=== PATIENT | male | born 1955 | race Caucasian/White ===

== ENCOUNTER 2023-09-23 11:53 | Outpatient (AMB) | payer MEDICARE, SELFPAY ==
--- NOTE | 2023-09-23 11:54 | HO.NEPHOV ---
HPI HPI Comments History of Present Illness Details I would the privilege of seeing Ryan in follow-up of his chronic kidney disease. He had acute kidney injury on 2 separate occasions needing hemodialysis on both those times. He had recovered renal function had had come off renal replacement. He came to the office today for continued follow-up. He was accompanied by his sister. He is known to have biopsy-proven diabetic nephropathy. He is gained quite a bit of weight. His blood sugar control still remains labile. He follows up with an risk control officer. His blood pressure has been at goal. He denies chest pain, shortness of breath, paroxysmal nocturnal dyspnea, orthopnea, pedal edema, urinary symptoms or orthostasis. He denied taking nonsteroidal anti-inflammatories. He denied any new active complaints at the time this office visit. REPLACED BY [facility] Medical History (Updated 09/25/23 @ 13:33 by Chris Martínez MD) Proteinuria Type 2 diabetes mellitus with diabetic nephropathy Hypertension Acute kidney injury Vital Signs 09/23/23 11:55 Height 5 ft 11 in Weight 218 lb BMI 30.4 BP 120/62 Blood Pressure Location Rt brachial Position Sitting Pulse 111 H Pulse Source Pulse Oximeter Pulse Oximetry (%) 94 Oxygen Delivery Method Room Air Physical Exam Vital Signs: Last Vital Signs Pulse 111 H 09/23/23 11:55 BP 120/62 09/23/23 11:55 Pulse Ox 94 09/23/23 11:55 Oxygen Delivery Method Room Air 09/23/23 11:55 BMI result Body Mass Index 30.4 Const General: comfortable and no acute distress Orientation/consciousness: patient oriented x3 HEENT Head: Yes normocephalic Mouth: Normal oral and palatal mucosa present Eyes EOM: EOMs intact bilaterally Neck Neck: Yes supple Resp Auscultation: clear to auscultation bilaterally Cardio Jugular venous distension: no JVD Rate: regular rate GI Palpation (GI): Soft to palpation Auscultation: normal bowel sounds General: Yes no CVA tenderness Back/Spine/Pelvis Back: no CVA tenderness Skin General skin exam: no rashes or lesions noted Neuro General: patient oriented x3 and moves all extremities Extrem General: Yes no pedal edema Assessment & Plan Assessment & Plan (1) Chronic kidney disease, stage 4 (severe): Code(s): N18.4 - Chronic kidney disease, stage 4 (severe) (2) Diabetic nephropathy: Code(s): E11.21 - Type 2 diabetes mellitus with diabetic nephropathy Qualifiers: Diabetes mellitus type: type 2 Qualified Code(s): E11.21 - Type 2 diabetes mellitus with diabetic nephropathy (3) Hypertension: Code(s): I10 - Essential (primary) hypertension Qualifiers: Hypertension type: primary hypertension Qualified Code(s): I10 - Essential (primary) hypertension Isabel Davis has some diabetic nephropathy and had been having progressive disease. He developed tubular injury with BENJAMIN needing renal replacement therapy on 2 separate occasions, last 1 being last year. On both occasions he recovered renal functions and has come off hemodialysis. He had a renal biopsy in the past which showed diabetic nephropathy. He denies any uremic symptoms. His blood sugar control is still labile. His blood pressure has been at goal. He is on potassium lowering medications. He avoids nonsteroidal anti-inflammatories. He has not tolerated SOCRATES inhibitor even when his GFR was better. I did not make any medication changes today. I ordered follow-up blood work. More than 50% time spent discussing about stage of his chronic kidney disease and further management strategies. Answered all questions. Follow-up appointment given. Orders: Orders Electrolytes 09/23/23 N18.30 - Chronic kidney disease, stage 3 unspecified Creatinine 09/23/23 N18.30 - Chronic kidney disease, stage 3 unspecified Magnesium 09/23/23 N18.30 - Chronic kidney disease, stage 3 unspecified Vitamin D 25-OH Total 09/23/23 N18.30 - Chronic kidney disease, stage 3 unspecified Ferritin 09/23/23 N18.30 - Chronic kidney disease, stage 3 unspecified IRON PROFILE 09/23/23 N18.30 - Chronic kidney disease, stage 3 unspecified Calcium 09/23/23 N18.30 - Chronic kidney disease, stage 3 unspecified Blood Urea Nitrogen 09/23/23 N18.30 - Chronic kidney disease, stage 3 unspecified Phosphorus 09/23/23 N18.30 - Chronic kidney disease, stage 3 unspecified Parathyroid Hormone Intact 09/23/23 N18.30 - Chronic kidney disease, stage 3 unspecified Complete Blood Count Auto Diff 09/23/23 N18.30 - Chronic kidney disease, stage 3 unspecified Coding Level of Care Code Est Pt Level 4 (11939) Diagnoses Chronic kidney disease, stage 4 (severe) N18.4 Diabetic nephropathy associated with type 2 diabetes mellitus E11.21 Diabetes mellitus type: type 2 Primary hypertension I10 Hypertension type: primary hypertension Results Reviewed Nephrology Results: No Data to Display
[2023-09-23 11:55] VITALS: BP 120/62; PULSE 111; O2SAT 94; BMI 30.4
== END 2023-09-23 12:38 | disposition home or self-care (01) ==
PROVIDERS: PCP Family Medicine; Visit Provider Internal Medicine Nephrology
DX: I12.9 Hypertensive chronic kidney disease with stage 1 through stage 4 chronic kidney disease, or unspecified chronic kidney disease (principal); E11.22 Type 2 diabetes mellitus with diabetic chronic kidney disease; N18.4 Chronic kidney disease, stage 4 (severe)
CPT/HCPCS: 99214

== ENCOUNTER → 2023-09-23 11:53 | Outpatient (BNVA) | payer MEDICARE, SELFPAY | PROVIDERS: PCP Family Medicine; Visit Provider Internal Medicine Nephrology | DX: E11.22 Type 2 diabetes mellitus with diabetic chronic kidney disease (principal); I12.9 Hypertensive chronic kidney disease with stage 1 through stage 4 chronic kidney disease, or unspecified chronic kidney disease; N18.4 Chronic kidney disease, stage 4 (severe); E11.21 Type 2 diabetes mellitus with diabetic nephropathy | CPT/HCPCS: 99212 ==

== ENCOUNTER 2023-10-22 14:45 | Outpatient (AMB) | payer MEDICARE, SELFPAY ==
--- NOTE | 2023-10-22 14:53 | HO.NEPHOV ---
HPI HPI Comments History of Present Illness Details I would the privilege of seeing Ryan in follow-up of his chronic kidney disease. He had acute kidney injury on 2 separate occasions needing hemodialysis on both those times. He had recovered renal function had had come off renal replacement. He came to the office today for continued follow-up. He was seen by his Urologist and was diagnosed with UTI and was started on Ciprofloxacin. He had been taking Lokelma, the last dose being last week. He is known to have biopsy-proven diabetic nephropathy. He is gained quite a bit of weight. His blood sugar control is better. He follows up with an metal hanger. His blood pressure has been at goal. He denies chest pain, shortness of breath, paroxysmal nocturnal dyspnea, orthopnea, pedal edema, urinary symptoms or orthostasis. He denied taking nonsteroidal anti-inflammatories. He denied any new active complaints at the time this office visit. [facility] Medical History (Updated 09/25/23 @ 13:33 by Chris Martínez MD) Proteinuria Type 2 diabetes mellitus with diabetic nephropathy Hypertension Acute kidney injury Vital Signs 10/22/23 14:54 Height 5 ft 11 in Weight 219 lb BMI 30.5 BP 130/82 Blood Pressure Location Rt brachial Position Sitting Pulse 104 H Pulse Source Pulse Oximeter Pulse Oximetry (%) 95 Oxygen Delivery Method Room Air Physical Exam Vital Signs: Last Vital Signs Pulse 104 H 10/22/23 14:54 BP 130/82 10/22/23 14:54 Pulse Ox 95 10/22/23 14:54 Oxygen Delivery Method Room Air 10/22/23 14:54 BMI result Body Mass Index 30.5 Const General: comfortable and no acute distress Orientation/consciousness: patient oriented x3 HEENT Head: Yes normocephalic Mouth: Normal oral and palatal mucosa present Eyes EOM: EOMs intact bilaterally Neck Neck: Yes supple Resp Auscultation: clear to auscultation bilaterally Cardio Jugular venous distension: no JVD Rate: regular rate GI Palpation (GI): Soft to palpation Auscultation: normal bowel sounds General: Yes no CVA tenderness Back/Spine/Pelvis Back: no CVA tenderness Skin General skin exam: no rashes or lesions noted Neuro General: patient oriented x3 and moves all extremities Extrem General: Yes no pedal edema Assessment & Plan Assessment & Plan (1) Chronic kidney disease, stage 4 (severe): Code(s): N18.4 - Chronic kidney disease, stage 4 (severe) (2) Diabetic nephropathy: Code(s): E11.21 - Type 2 diabetes mellitus with diabetic nephropathy Qualifiers: Diabetes mellitus type: type 2 Qualified Code(s): E11.21 - Type 2 diabetes mellitus with diabetic nephropathy (3) Hypertension: Code(s): I10 - Essential (primary) hypertension Qualifiers: Hypertension type: primary hypertension Qualified Code(s): I10 - Essential (primary) hypertension Isabel Davis has some diabetic nephropathy and had been having progressive disease. He developed tubular injury with BENJAMIN needing renal replacement therapy on 2 separate occasions, last 1 being last year. On both occasions he recovered renal functions and has come off hemodialysis. He had a renal biopsy in the past which showed diabetic nephropathy. He denies any uremic symptoms. His blood sugar control is better. His blood pressure has been at goal. He is on potassium lowering medications. I refilled his Kionex today. He avoids nonsteroidal anti-inflammatories. He has not tolerated SOCRATES inhibitor even when his GFR was better. I did not make any medication changes today. I ordered follow-up blood work for today. More than 50% time spent discussing about stage of his chronic kidney disease and further management strategies. Answered all questions. Follow-up appointment given. Orders: Orders Creatinine 2 Months E11.21 - Type 2 diabetes mellitus with diabetic nephropathy, I10 - Essential (primary) hypertension, N18.4 - Chronic kidney disease, stage 4 (severe) Blood Urea Nitrogen 2 Months E11.21 - Type 2 diabetes mellitus with diabetic nephropathy, I10 - Essential (primary) hypertension, N18.4 - Chronic kidney disease, stage 4 (severe) Electrolytes 2 Months E11.21 - Type 2 diabetes mellitus with diabetic nephropathy, I10 - Essential (primary) hypertension, N18.4 - Chronic kidney disease, stage 4 (severe) Medications: New sodium polystyrene sulfonate 30 grams PO DAILY 453.6 grams 3RF Coding Level of Care Code Est Pt Level 3 (33310) Diagnoses Chronic kidney disease, stage 4 (severe) N18.4 Diabetic nephropathy associated with type 2 diabetes mellitus E11. Diabetes mellitus type: type 2 Primary hypertension I10 Hypertension type: primary hypertension Results Reviewed Nephrology Results: No Data to Display
[2023-10-22 14:54] VITALS: BP 130/82; PULSE 104; O2SAT 95; BMI 30.5
== END 2023-10-22 15:45 | disposition home or self-care (01) ==
LOC: HO.HKAS 14:45
PROVIDERS: PCP Family Medicine; Visit Provider Internal Medicine Nephrology
DX: I12.9 Hypertensive chronic kidney disease with stage 1 through stage 4 chronic kidney disease, or unspecified chronic kidney disease (principal); N18.4 Chronic kidney disease, stage 4 (severe); E11.21 Type 2 diabetes mellitus with diabetic nephropathy
CPT/HCPCS: 99213

== ENCOUNTER → 2023-10-22 14:45 | Outpatient (BNVA) | payer MEDICARE, SELFPAY | PROVIDERS: PCP Family Medicine; Visit Provider Internal Medicine Nephrology ==

== ENCOUNTER 2023-10-22 15:26 | Outpatient (REF) | payer MEDICARE, SELFPAY ==
[2023-10-22 17:17] LABS: MANUAL DIFF FLAG NO
[2023-10-22 17:26] LABS: Basophils Absolute Auto 0.1 X10*3/uL (0.0-0.2); Basophils Percent Auto 0.6 % (0-2); Eosinophils Absolute Auto 0.2 X10*3/uL (0.0-0.4); Eosinophils Percent Auto 2.8 % (0-4); Hematocrit 35.9 % (42.0-52.0); Hemoglobin 11.7 g/dl (14.0-18.0); Imm Gran Abs Auto 0.09 X10*3/uL (0.00-0.03); Imm Gran Pct Auto 1.1 % (0.0-0.4); Lymphocytes Absolute Auto 1.4 X10*3/uL (1.2-4.9); Lymphocytes Percent Auto 16.9 % (20-40); Mean Corpuscular HGB Conc 32.6 g/dl (31.0-36.0); Mean Corpuscular Volume 95.2 fL (80.0-98.0); Mean Platelet Volume 10.6 fL (9.4-12.4); Monocytes Absolute Auto 0.7 X10*3/uL (0.1-1.2); Monocytes Percent Auto 8.1 % (2-11); Neutrophils Absolute Auto 5.8 x10*3/uL (2.0-8.3); Neutrophils Percent Auto 70.5 % (45-73); Platelet Count 227 X10*3/uL (160-400); Red Blood Count 3.77 X10*6/uL (4.60-5.80); Red Cell Distribution Width 13.1 % (11.0-16.0); White Blood Count 8.3 X10*3/uL (4.8-10.8)
[2023-10-22 18:16] LABS: Anion Gap 15 (12-20); Blood Urea Nitrogen 44 mg/dL (9-16); Calcium 8.5 mg/dL (8.4-10.2); Carbon Dioxide 19 mmol/L (22-29); Chloride 110 mmol/L (96-108); Estimated Glomerular Filt Rate 17; Iron 87 mcg/dL (45-160); Percent Iron Saturation 31 % (15-50); Phosphorus 3.9 mg/dL (2.7-4.5); Potassium 4.6 mmol/L (3.3-5.1); Sodium 139 mmol/L (135-145); Total Iron Binding Capacity 277 mcg/dL (228-428); Unsaturated Iron Binding 190 ug/dL
[2023-10-22 18:21] LABS: Ferritin 151 ng/mL (20-250); Vitamin D 25-OH Total 13.7 ng/mL (>30)
[2023-10-22 18:23] LABS: Magnesium 1.1 mg/dL (1.6-2.6)
[2023-10-22 18:47] LABS: Parathyroid Hormone Intact 478.8 pg/mL (8.7-77.1)
== END 2023-10-22 15:27 | disposition home or self-care (01) ==
LOC: HO.HKASLDS 15:26
PROVIDERS: Visit Provider Internal Medicine Nephrology
DX: E11.22 Type 2 diabetes mellitus with diabetic chronic kidney disease (principal); I12.9 Hypertensive chronic kidney disease with stage 1 through stage 4 chronic kidney disease, or unspecified chronic kidney disease; N18.4 Chronic kidney disease, stage 4 (severe); E11.21 Type 2 diabetes mellitus with diabetic nephropathy; Z79.899 Other long term (current) drug therapy
CPT/HCPCS: 36415; 80051; 82306; 82310; 82565; 82728; 83540; 83735; 83970; 84100; 84520; 85025; 99212

== ENCOUNTER 2023-12-29 12:39 | Outpatient (REF) | payer MEDICARE, SELFPAY ==
[2023-12-29 18:33] LABS: Anion Gap 12 (12-20); Blood Urea Nitrogen 37 mg/dL (9-16); Carbon Dioxide 20 mmol/L (22-29); Chloride 110 mmol/L (96-108); Estimated Glomerular Filt Rate 19; Potassium 5.7 mmol/L (3.3-5.1); Sodium 136 mmol/L (135-145)
== END 2023-12-29 12:40 | disposition home or self-care (01) ==
LOC: HO.HKASLDS 12:39
PROVIDERS: Visit Provider Internal Medicine Nephrology
DX: I12.9 Hypertensive chronic kidney disease with stage 1 through stage 4 chronic kidney disease, or unspecified chronic kidney disease (principal); E11.22 Type 2 diabetes mellitus with diabetic chronic kidney disease; E11.21 Type 2 diabetes mellitus with diabetic nephropathy; N18.4 Chronic kidney disease, stage 4 (severe)
CPT/HCPCS: 36415; 80051; 82565; 84520; 99212

== ENCOUNTER 2023-12-29 15:40 | Outpatient (AMB) | payer MEDICARE, SELFPAY ==
[2023-12-29 16:16] VITALS: BP 150/80; PULSE 90; O2SAT 96; BMI 30.2
--- NOTE | 2023-12-29 16:16 | HO.NEPHOV ---
Vital Signs 12/29/23 16:16 Height 5 ft 11 in Weight 216 lb 6 oz BMI 30.2 BP 150/80 H Blood Pressure Location Lt brachial Position Sitting Pulse 90 Pulse Source Pulse Oximeter Pulse Oximetry (%) 96 Oxygen Delivery Method Room Air Intake Visit Reasons: 2 mo fu w/ labs -CKD Proposal Lead Writer Required: No Accompanied by: Self / Same As Patient Allergies liraglutide Allergy (Verified 12/29/23 16:18) Unknown HPI Comments Details: I hadd the privilege of seeing Ryan in follow-up of his chronic kidney disease. He had acute kidney injury on 2 separate occasions needing hemodialysis on both those times. He had recovered renal function had had come off renal replacement. He came to the office today for continued follow-up. He has not very strict with his diet. He claims to have been taking Lokelma. He is known to have biopsy-proven diabetic nephropathy. He is gained quite a bit of weight. His blood sugar control is better. He follows up with an electronic engineering draftsperson. His blood pressure has been at goal. He denies chest pain, shortness of breath, paroxysmal nocturnal dyspnea, orthopnea, pedal edema, urinary symptoms or orthostasis. He denied taking nonsteroidal anti-inflammatories. He denied any new active complaints at the time this office visit. [facility] Medical History (Updated 09/25/23 @ 13:33 by Chris Martínez MD) Proteinuria Type 2 diabetes mellitus with diabetic nephropathy Hypertension Acute kidney injury Physical Exam Vital Signs: Last Vital Signs Pulse 90 12/29/23 16:16 BP 150/80 H 12/29/23 16:16 Pulse Ox 96 12/29/23 16:16 Oxygen Delivery Method Room Air 12/29/23 16:16 BMI result Body Mass Index 30.2 Const General: comfortable and no acute distress Orientation/consciousness: patient oriented x3 HEENT Head: Yes normocephalic Mouth: Normal oral and palatal mucosa present Eyes EOM: EOMs intact bilaterally Neck Neck: Yes supple Resp Auscultation: clear to auscultation bilaterally Cardio Jugular venous distension: no JVD Rate: regular rate GI Palpation (GI): Soft to palpation Auscultation: normal bowel sounds General: Yes no CVA tenderness Back/Spine/Pelvis Back: no CVA tenderness Skin General skin exam: no rashes or lesions noted Neuro General: patient oriented x3 and moves all extremities Extrem General: Yes no pedal edema Results Reviewed Nephrology Results: Hgb 11.7 g/dl (14.0-18.0) L 10/22/23 WBC 8.3 X10*3/uL (4.8-10.8) 10/22/23 Plt Count 227 X10*3/uL (160-400) 10/22/23 Sodium 136 mmol/L (135-145) 12/29/23 Potassium 5.7 mmol/L (3.3-5.1) H 12/29/23 Chloride 110 mmol/L (96-108) H 12/29/23 Carbon Dioxide 20 mmol/L (22-29) L 12/29/23 BUN 37 mg/dL (9-16) H 12/29/23 Creatinine 3.21 mg/dL (0.5-1.4) H 12/29/23 Calcium 8.5 mg/dL (8.4-10.2) 10/22/23 Phosphorus 3.9 mg/dL (2.7-4.5) 10/22/23 PTH Intact 478.8 pg/mL (8.7-77.1) H 10/22/23 Assessment & Plan Assessment & Plan (1) Diabetic nephropathy: Code(s): E11.21 - Type 2 diabetes mellitus with diabetic nephropathy Category: Medical Qualifiers: Diabetes mellitus type: type 2 Qualified Code(s): E11.21 - Type 2 diabetes mellitus with diabetic nephropathy (2) Chronic kidney disease, stage 4 (severe): Code(s): N18.4 - Chronic kidney disease, stage 4 (severe) Category: Medical (3) Hypertension: Code(s): I10 - Essential (primary) hypertension Category: Medical Qualifiers: Hypertension type: primary hypertension Qualified Code(s): I10 - Essential (primary) hypertension Plan Ryan has some diabetic nephropathy and had been having progressive disease. He developed tubular injury with BENJAMIN needing renal replacement therapy on 2 separate occasions, last 1 being last year. On both occasions he recovered renal functions and has come off hemodialysis. He had a renal biopsy in the past which showed diabetic nephropathy. He denies any uremic symptoms. His blood sugar control is better. His blood pressure has been at goal. He has been on potassium lowering medications. He avoids nonsteroidal anti-inflammatories. He has not tolerated SOCRATES inhibitor even when his GFR was better. I did not make any medication changes today. I ordered follow-up blood work for today. More than 50% time spent discussing about stage of his chronic kidney disease and further management strategies. Answered all questions. Further management is pending evolving data. Follow-up appointment given Orders: Orders Complete Blood Count Auto Diff 12/29/23 E11.21 - Type 2 diabetes mellitus with diabetic nephropathy, I10 - Essential (primary) hypertension, N18.4 - Chronic kidney disease, stage 4 (severe) IRON PROFILE 12/29/23 E11.21 - Type 2 diabetes mellitus with diabetic nephropathy, I10 - Essential (primary) hypertension, N18.4 - Chronic kidney disease, stage 4 (severe) Electrolytes 3 Months E11.21 - Type 2 diabetes mellitus with diabetic nephropathy, I10 - Essential (primary) hypertension, N18.4 - Chronic kidney disease, stage 4 (severe) Calcium 12/29/23 E11.21 - Type 2 diabetes mellitus with diabetic nephropathy, I10 - Essential (primary) hypertension, N18.4 - Chronic kidney disease, stage 4 (severe) Ferritin 12/29/23 E11.21 - Type 2 diabetes mellitus with diabetic nephropathy, I10 - Essential (primary) hypertension, N18.4 - Chronic kidney disease, stage 4 (severe) Parathyroid Hormone Intact 12/29/23 E11.21 - Type 2 diabetes mellitus with diabetic nephropathy, I10 - Essential (primary) hypertension, N18.4 - Chronic kidney disease, stage 4 (severe) Creatinine 3 Months E11.21 - Type 2 diabetes mellitus with diabetic nephropathy, I10 - Essential (primary) hypertension, N18.4 - Chronic kidney disease, stage 4 (severe) Blood Urea Nitrogen 3 Months E11.21 - Type 2 diabetes mellitus with diabetic nephropathy, I10 - Essential (primary) hypertension, N18.4 - Chronic kidney disease, stage 4 (severe) Phosphorus 12/29/23 E11.21 - Type 2 diabetes mellitus with diabetic nephropathy, I10 - Essential (primary) hypertension, N18.4 - Chronic kidney disease, stage 4 (severe) Coding Level of Care Code Est Pt Level 4 (64461) Diagnoses Diabetic nephropathy associated with type 2 diabetes mellitus E11.21 Diabetes mellitus type: type 2 Chronic kidney disease, stage 4 (severe) N18.4 Primary hypertension I10 Hypertension type: primary hypertension
== END 2023-12-29 16:46 | disposition home or self-care (01) ==
LOC: HO.HKAS 15:40
PROVIDERS: PCP Family Medicine; Visit Provider Internal Medicine Nephrology
DX: I12.9 Hypertensive chronic kidney disease with stage 1 through stage 4 chronic kidney disease, or unspecified chronic kidney disease (principal); E11.22 Type 2 diabetes mellitus with diabetic chronic kidney disease; N18.4 Chronic kidney disease, stage 4 (severe)
CPT/HCPCS: 99214

== ENCOUNTER 2024-03-14 09:32 | Outpatient (REF) | payer MEDICARE, SELFPAY ==
--- NOTE | ~2024-03-14 | US_ITS ---
EXAMINATION: US ABDOMEN LIMITED CLINICAL INFORMATION: Elevated liver functions. COMPARISON: Ultrasound kidneys and bladder 06/12/2023. TECHNIQUE: Real-time imaging of the right upper quadrant abdominal viscera. Technically limited study secondary to bowel gas. FINDINGS: PANCREAS: Visualized portions of the pancreas are unremarkable however portions are obscured by bowel gas limiting evaluation. LIVER: The liver is normal in size. The liver contour is normal. Moderately increased hepatic echogenicity which can be seen in the setting of hepatic steatosis or underlying liver disease. No focal hepatic lesion. There is no intrahepatic biliary duct dilatation seen. GALLBLADDER: Normal. The gallbladder is physiologically distended without evidence of stones, sludge, polyps, wall thickening or pericholecystic fluid. COMMON BILE DUCT: Normal in caliber measuring 0.3 cm in diameter. RIGHT KIDNEY: Benign-appearing renal cysts measuring up to 3.5 cm. No follow-up imaging is recommended. No hydronephrosis or renal calculi. The kidney measures 12.1 cm in maximum dimension. FREE FLUID: None. US/US abdomen limited IMPRESSION: Moderately increased hepatic echogenicity which can be seen in the setting of hepatic steatosis or underlying liver disease. Electronically signed by: Valery Ordonez MD 04/04/2024 06:26 PM EDT
== END 2024-03-14 09:33 | disposition home or self-care (01) ==
LOC: HO.US 09:32
PROVIDERS: PCP Family Medicine; Visit Provider Family Medicine
DX: R74.01 Elevation of levels of liver transaminase levels (principal)
CPT/HCPCS: 76705

== ENCOUNTER 2024-03-23 15:34 | Outpatient (REF) | payer MEDICARE, SELFPAY ==
[2024-03-23 17:54] LABS: MANUAL DIFF FLAG NO
[2024-03-23 18:19] LABS: Basophils Percent Auto 0.7 % (0-2); Eosinophils Absolute Auto 0.1 X10*3/uL (0.0-0.4); Eosinophils Percent Auto 1.8 % (0-4); Hematocrit 34.9 % (42.0-52.0); Hemoglobin 11.4 g/dl (14.0-18.0); Imm Gran Abs Auto 0.06 X10*3/uL (0.00-0.03); Lymphocytes Absolute Auto 1.3 X10*3/uL (1.2-4.9); Lymphocytes Percent Auto 20.9 % (20-40); Mean Corpuscular HGB Conc 32.7 g/dl (31.0-36.0); Mean Corpuscular Hemoglobin 31.1 pg (27.0-33.0); Mean Corpuscular Volume 95.1 fL (80.0-98.0); Monocytes Absolute Auto 0.7 X10*3/uL (0.1-1.2); Monocytes Percent Auto 11.4 % (2-11); Neutrophils Absolute Auto 3.9 x10*3/uL (2.0-8.3); Neutrophils Percent Auto 64.2 % (45-73); Platelet Count 245 X10*3/uL (160-400); Red Blood Count 3.67 X10*6/uL (4.60-5.80); Red Cell Distribution Width 13.1 % (11.0-16.0)
[2024-03-23 18:25] LABS: Anion Gap 13 (12-20); Blood Urea Nitrogen 42 mg/dL (9-16); Calcium 8.9 mg/dL (8.4-10.2); Carbon Dioxide 24 mmol/L (22-29); Chloride 112 mmol/L (96-108); Estimated Glomerular Filt Rate 22; Iron 93 mcg/dL (45-160); Percent Iron Saturation 37 % (15-50); Phosphorus 3.1 mg/dL (2.7-4.5); Potassium 5.2 mmol/L (3.3-5.1); Sodium 144 mmol/L (135-145); Total Iron Binding Capacity 250 mcg/dL (228-428); Unsaturated Iron Binding 157 ug/dL
[2024-03-23 18:42] LABS: Ferritin 106 ng/mL (20-250)
[2024-03-24 05:22] LABS: Parathyroid Hormone Intact 494.9 pg/mL (8.7-77.1)
== END 2024-03-23 15:35 | disposition home or self-care (01) ==
LOC: HO.HKASLDS 15:34
PROVIDERS: Visit Provider Internal Medicine Nephrology
DX: I10 Essential (primary) hypertension (principal); E11.21 Type 2 diabetes mellitus with diabetic nephropathy; N18.4 Chronic kidney disease, stage 4 (severe)
CPT/HCPCS: 36415; 80051; 82310; 82565; 82728; 83540; 83970; 84100; 84520; 85025

== ENCOUNTER 2024-03-29 14:14 | Outpatient (AMB) | payer MEDICARE, SELFPAY ==
--- NOTE | 2024-03-29 14:18 | HO.NEPHOV_ITS ---
Vital Signs 03/29/24 14:32 Height 5 ft 11 in Weight 216 lb 2 oz BMI 30.1 BP 138/70 Blood Pressure Location Lt brachial Position Sitting Pulse 80 Pulse Source Pulse Oximeter Pulse Oximetry (%) 96 Oxygen Delivery Method Room Air Intake Visit Reasons: 3mon follow up- Conf Buyer Liaison Required: No Accompanied by: Self / Same As Patient Allergies liraglutide Allergy (Verified 03/29/24 14:34) Unknown HPI Comments Details: I had the privilege of seeing Ryan in follow-up of his chronic kidney disease. He had acute kidney injury on 2 separate occasions needing hemodialysis on both those times. He had recovered renal function had had come off renal replacement. He came to the office today for continued follow-up. He has not very strict with his diet. He claims to have been taking Lokelma. He is known to have biopsy-proven diabetic nephropathy. He is gained quite a bit of weight. His blood sugar control has been bad and had a UTI as well. His HbA1c was 13.6. 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 His blood pressure has been at goal. He denies chest pain, shortness of breath, paroxysmal nocturnal dyspnea, orthopnea, pedal edema, urinary symptoms or orthostasis. He denied taking nonsteroidal anti-inflammatories. He denied any new active complaints at the time this office visit. [facility] Medical History (Updated 03/29/24 @ 14:20 by Chris Martínez MD) Proteinuria Type 2 diabetes mellitus with diabetic nephropathy Hypertension Acute kidney injury Review of Systems Const All systems reviewed & are unremarkable except as noted in HPI and below Physical Exam Vital Signs: Last Vital Signs Pulse 80 03/29/24 14:32 BP 138/70 03/29/24 14:32 Pulse Ox 96 03/29/24 14:32 Oxygen Delivery Method Room Air 03/29/24 14:32 BMI result Body Mass Index 30.1 Const General: comfortable and no acute distress Orientation/consciousness: patient oriented x3 HEENT Head: Yes normocephalic Mouth: Normal oral and palatal mucosa present Eyes EOM: EOMs intact bilaterally Neck Neck: Yes supple Resp Auscultation: clear to auscultation bilaterally Cardio Jugular venous distension: no JVD Rate: regular rate Heart sounds: Murmur heart sound present GI Palpation (GI): Soft to palpation Auscultation: normal bowel sounds General: Yes no CVA tenderness Back/Spine/Pelvis Back: no CVA tenderness Skin General skin exam: no rashes or lesions noted Neuro General: patient oriented x3 and moves all extremities Results Reviewed Nephrology Results: Hgb 11.4 g/dl (14.0-18.0) L 03/23/24 WBC 6.0 X10*3/uL (4.8-10.8) 03/23/24 Plt Count 245 X10*3/uL (160-400) 03/23/24 Sodium 144 mmol/L (135-145) 03/23/24 Potassium 5.2 mmol/L (3.3-5.1) H 03/23/24 Chloride 112 mmol/L (96-108) H 03/23/24 Carbon Dioxide 24 mmol/L (22-29) 03/23/24 BUN 42 mg/dL (9-16) H 03/23/24 Creatinine 2.91 mg/dL (0.5-1.4) H 03/23/24 Calcium 8.9 mg/dL (8.4-10.2) 03/23/24 Phosphorus 3.1 mg/dL (2.7-4.5) 03/23/24 PTH Intact 494.9 pg/mL (8.7-77.1) H 03/23/24 Assessment & Plan Assessment & Plan (1) Chronic kidney disease, stage 4 (severe): Code(s): N18.4 - Chronic kidney disease, stage 4 (severe) Category: Medical (2) Diabetic nephropathy: Code(s): E11.21 - Type 2 diabetes mellitus with diabetic nephropathy Category: Medical Qualifiers: Diabetes mellitus type: type 2 Qualified Code(s): E11.21 - Type 2 diabetes mellitus with diabetic nephropathy (3) Hypertension: Code(s): I10 - Essential (primary) hypertension Category: Medical Qualifiers: Hypertension type: primary hypertension Qualified Code(s): I10 - Essential (primary) hypertension (4) Secondary hyperparathyroidism (of renal origin): Code(s): N25.81 - Secondary hyperparathyroidism of renal origin Category: Medical Plan Ryan has some diabetic nephropathy and had been having progressive disease. He has H/O tubular injury with BENJAMIN needing renal replacement therapy on 2 separate occasions. On both occasions he recovered renal functions and has come off hemodialysis. He had a renal biopsy in the past which showed diabetic nephropathy. He denies any uremic symptoms. His blood sugar control is better. His blood pressure has been at goal. He has been on potassium lowering medications. He avoids nonsteroidal anti-inflammatories. He has not tolerated SOCRATES inhibitor even when his GFR was better. I started him on Vitamin D 15792 Units once a week. I did not make any other medication changes today. I ordered follow-up blood work for today. Answered all questions.Follow-up appointment given Orders: Orders Complete Blood Count Auto Diff 3 Months E11.21 - Type 2 diabetes mellitus with diabetic nephropathy, I10 - Essential (primary) hypertension, N18.4 - Chronic kidney disease, stage 4 (severe), N25.81 - Secondary hyperparathyroidism of renal origin Electrolytes 3 Months E11.21 - Type 2 diabetes mellitus with diabetic nephropathy, I10 - Essential (primary) hypertension, N18.4 - Chronic kidney disease, stage 4 (severe), N25.81 - Secondary hyperparathyroidism of renal origin Creatinine 3 Months E11.21 - Type 2 diabetes mellitus with diabetic nephropathy, I10 - Essential (primary) hypertension, N18.4 - Chronic kidney disease, stage 4 (severe), N25.81 - Secondary hyperparathyroidism of renal origin Complete Blood Count Auto Diff Today E11.21 - Type 2 diabetes mellitus with diabetic nephropathy, I10 - Essential (primary) hypertension, N18.4 - Chronic kidney disease, stage 4 (severe), N25.81 - Secondary hyperparathyroidism of renal origin Calcium 3 Months E11.21 - Type 2 diabetes mellitus with diabetic nephropathy, I10 - Essential (primary) hypertension, N18.4 - Chronic kidney disease, stage 4 (severe), N25.81 - Secondary hyperparathyroidism of renal origin Blood Urea Nitrogen 3 Months E11.21 - Type 2 diabetes mellitus with diabetic nephropathy, I10 - Essential (primary) hypertension, N18.4 - Chronic kidney disease, stage 4 (severe), N25.81 - Secondary hyperparathyroidism of renal origin Creatinine Today E11.21 - Type 2 diabetes mellitus with diabetic nephropathy, I10 - Essential (primary) hypertension, N18.4 - Chronic kidney disease, stage 4 (severe), N25.81 - Secondary hyperparathyroidism of renal origin Blood Urea Nitrogen Today E11.21 - Type 2 diabetes mellitus with diabetic nephropathy, I10 - Essential (primary) hypertension, N18.4 - Chronic kidney disease, stage 4 (severe), N25.81 - Secondary hyperparathyroidism of renal origin Electrolytes Today E11.21 - Type 2 diabetes mellitus with diabetic nephropathy, I10 - Essential (primary) hypertension, N18.4 - Chronic kidney disease, stage 4 (severe), N25.81 - Secondary hyperparathyroidism of renal origin Medications: New cholecalciferol (vitamin D3) 1,250 mcg PO QWEEK 90 days 13 caps 1RF Discontinued cholecalciferol (vitamin D3) Discontinued Reason: Doctor's Order 50 mcg PO QAM 30 tabs 1RF Coding Level of Care Code Est Pt Level 4 (91511) Diagnoses Chronic kidney disease, stage 4 (severe) N18.4 Diabetic nephropathy associated with type 2 diabetes mellitus E11.21 Diabetes mellitus type: type 2 Primary hypertension I10 Hypertension type: primary hypertension Secondary hyperparathyroidism (of renal origin) N25.81
[2024-03-29 14:32] VITALS: BP 138/70; PULSE 80; O2SAT 96; BMI 30.1
== END 2024-03-29 15:08 | disposition home or self-care (01) ==
PROVIDERS: PCP Family Medicine; Visit Provider Internal Medicine Nephrology
DX: I12.9 Hypertensive chronic kidney disease with stage 1 through stage 4 chronic kidney disease, or unspecified chronic kidney disease (principal); N18.4 Chronic kidney disease, stage 4 (severe); E11.21 Type 2 diabetes mellitus with diabetic nephropathy; N25.81 Secondary hyperparathyroidism of renal origin
CPT/HCPCS: 99214

== ENCOUNTER → 2024-03-29 14:14 | Outpatient (BNVA) | payer MEDICARE, SELFPAY | PROVIDERS: PCP Family Medicine; Visit Provider Internal Medicine Nephrology | DX: E11.22 Type 2 diabetes mellitus with diabetic chronic kidney disease (principal); I12.9 Hypertensive chronic kidney disease with stage 1 through stage 4 chronic kidney disease, or unspecified chronic kidney disease; N18.4 Chronic kidney disease, stage 4 (severe); E11.21 Type 2 diabetes mellitus with diabetic nephropathy; N25.81 Secondary hyperparathyroidism of renal origin | CPT/HCPCS: 99212 ==

== ENCOUNTER 2024-06-27 11:47 | Outpatient (REF) | payer MEDICARE, SELFPAY ==
[2024-06-27 12:16] LABS: MANUAL DIFF FLAG NO
[2024-06-27 14:03] LABS: Basophils Percent Auto 0.2 % (0-2); Eosinophils Absolute Auto 0.1 X10*3/uL (0.0-0.4); Eosinophils Percent Auto 0.3 % (0-4); Hemoglobin 10.4 g/dl (14.0-18.0); Imm Gran Abs Auto 0.38 X10*3/uL (0.00-0.03); Imm Gran Pct Auto 2.3 % (0.0-0.4); Lymphocytes Absolute Auto 0.9 X10*3/uL (1.2-4.9); Lymphocytes Percent Auto 5.7 % (20-40); Mean Corpuscular HGB Conc 32.5 g/dl (31.0-36.0); Mean Corpuscular Hemoglobin 30.8 pg (27.0-33.0); Mean Corpuscular Volume 94.7 fL (80.0-98.0); Mean Platelet Volume 11.7 fL (9.4-12.4); Monocytes Absolute Auto 1.3 X10*3/uL (0.1-1.2); Monocytes Percent Auto 7.7 % (2-11); Neutrophils Absolute Auto 13.6 x10*3/uL (2.0-8.3); Neutrophils Percent Auto 83.8 % (45-73); Platelet Count 189 X10*3/uL (160-400); Red Blood Count 3.38 X10*6/uL (4.60-5.80); Red Cell Distribution Width 15.1 % (11.0-16.0); White Blood Count 16.3 X10*3/uL (4.8-10.8)
[2024-06-27 14:43] LABS: Anion Gap 11 (12-20); Blood Urea Nitrogen 76 mg/dL (9-16); Calcium 7.9 mg/dL (8.4-10.2); Carbon Dioxide 16 mmol/L (22-29); Chloride 113 mmol/L (96-108); Estimated Glomerular Filt Rate 15; Potassium 5.4 mmol/L (3.3-5.1); Sodium 135 mmol/L (135-145)
== END 2024-06-27 11:48 | disposition home or self-care (01) ==
LOC: HO.LAB 11:47
PROVIDERS: PCP Family Medicine; Visit Provider Internal Medicine Nephrology
DX: I12.9 Hypertensive chronic kidney disease with stage 1 through stage 4 chronic kidney disease, or unspecified chronic kidney disease (principal); E11.22 Type 2 diabetes mellitus with diabetic chronic kidney disease; N18.4 Chronic kidney disease, stage 4 (severe); E11.21 Type 2 diabetes mellitus with diabetic nephropathy; N25.81 Secondary hyperparathyroidism of renal origin
CPT/HCPCS: 36415; 80051; 82310; 82565; 84520; 85025

== ENCOUNTER 2024-06-28 07:35 | Outpatient (REF) | payer MEDICARE, SELFPAY | END 2024-06-28 07:36 | disposition home or self-care (01) | LOC: HO.HMGCLDS 07:35 | PROVIDERS: PCP Family Medicine; Visit Provider Internal Medicine Hypertension Specialist | DX: R30.0 Dysuria (principal); N17.9 Acute kidney failure, unspecified; N25.81 Secondary hyperparathyroidism of renal origin; I10 Essential (primary) hypertension; E11.21 Type 2 diabetes mellitus with diabetic nephropathy; N18.4 Chronic kidney disease, stage 4 (severe) | CPT/HCPCS: 87086; 87088; 87186; 99212 ==

== ENCOUNTER 2024-06-28 13:36 | Outpatient (AMB) | payer MEDICARE, SELFPAY ==
[2024-06-28 14:07] VITALS: BP 138/74; PULSE 73; O2SAT 98; BMI 29.5
--- NOTE | 2024-06-28 14:07 | HO.NEPHOV_ITS ---
Vital Signs 06/28/24 14:07 Height 5 ft 11 in Weight 211 lb 4 oz BMI 29.5 BP 138/74 Blood Pressure Location Rt brachial Position Sitting Pulse 73 Pulse Source Pulse Oximeter Pulse Oximetry (%) 98 Oxygen Delivery Method Room Air Intake Visit Reasons: 3 mon follow up/ Conf Cork Mixer Required: No Accompanied by: Self / Same As Patient Allergies liraglutide Allergy (Verified 06/28/24 14:08) Unknown HPI Comments Details: Ryan was seen in follow-up of his chronic kidney disease. He had acute kidney injury on 2 separate occasions needing hemodialysis on both those times. He has been having urinary symptoms. He is not taking Lokelma regularly. He is biopsy-proven diabetic nephropathy. His blood sugar control has been bad . His HbA1c has been high. He follows up with an pelt dropper. His blood pressure has been at goal. He denies chest pain, shortness of breath, paroxysmal nocturnal dyspnea, orthopnea, pedal edema, urinary symptoms or orthostasis. He denied taking nonsteroidal anti-inflammatories. His serum creatinine has gotten worse [facility] Medical History (Updated 06/28/24 @ 14:36 by Chris Martínez MD) Proteinuria Type 2 diabetes mellitus with diabetic nephropathy Hypertension Acute kidney injury Review of Systems Const All systems reviewed & are unremarkable except as noted in HPI and below Physical Exam Vital Signs: Last Vital Signs Pulse 73 06/28/24 14:07 BP 138/74 06/28/24 14:07 Pulse Ox 98 06/28/24 14:07 Oxygen Delivery Method Room Air 06/28/24 14:07 BMI result Body Mass Index 29.5 Const General: comfortable and no acute distress Orientation/consciousness: patient oriented x3 HEENT Head: Yes normocephalic Mouth: Normal oral and palatal mucosa present Eyes EOM: EOMs intact bilaterally Neck Neck: Yes supple Resp Auscultation: clear to auscultation bilaterally Cardio Jugular venous distension: no JVD Rate: regular rate GI Palpation (GI): Soft to palpation Auscultation: normal bowel sounds General: Yes no CVA tenderness Back/Spine/Pelvis Back: no CVA tenderness Skin General skin exam: no rashes or lesions noted Neuro General: patient oriented x3 and moves all extremities Extrem General: Yes no pedal edema Results Reviewed Nephrology Results: Hgb 10.4 g/dl (14.0-18.0) L 06/27/24 WBC 16.3 X10*3/uL (4.8-10.8) H 06/27/24 Plt Count 189 X10*3/uL (160-400) 06/27/24 Sodium 135 mmol/L (135-145) 06/27/24 Potassium 5.4 mmol/L (3.3-5.1) H 06/27/24 Chloride 113 mmol/L (96-108) H 06/27/24 Carbon Dioxide 16 mmol/L (22-29) L 06/27/24 BUN 76 mg/dL (9-16) H 06/27/24 Creatinine 3.94 mg/dL (0.5-1.4) H 06/27/24 Calcium 7.9 mg/dL (8.4-10.2) L 06/27/24 Phosphorus 3.1 mg/dL (2.7-4.5) 03/23/24 PTH Intact 494.9 pg/mL (8.7-77.1) H 03/23/24 Assessment & Plan Assessment & Plan (1) Acute kidney injury: Code(s): N17.9 - Acute kidney failure, unspecified Category: Medical (2) Dysuria: Code(s): R30.0 - Dysuria Category: Medical (3) Secondary hyperparathyroidism (of renal origin): Code(s): N25.81 - Secondary hyperparathyroidism of renal origin Category: Medical (4) Hypertension: Code(s): I10 - Essential (primary) hypertension Category: Medical Qualifiers: Hypertension type: primary hypertension Qualified Code(s): I10 - Essential (primary) hypertension (5) Diabetic nephropathy: Code(s): E11.21 - Type 2 diabetes mellitus with diabetic nephropathy Category: Medical Qualifiers: Diabetes mellitus type: type 2 Qualified Code(s): E11.21 - Type 2 diabetes mellitus with diabetic nephropathy (6) Chronic kidney disease, stage 4 (severe): Code(s): N18.4 - Chronic kidney disease, stage 4 (severe) Category: Medical Plan Ryan has some diabetic nephropathy and had been having progressive disease. He has H/O tubular injury with BENJAMIN needing renal replacement therapy on 2 separate occasions. He has an BENJAMIN now likely due to tubular injury. He had a renal biopsy in the past which showed diabetic nephropathy. He denies any uremic symptoms. His blood sugar control needs to be better. His blood pressure has been at goal. I reiterated the need to take potassium lowering medications as well as NaHCO3. He avoids nonsteroidal anti-inflammatories. He has not tolerated SOCRATES inhibitor even when his GFR was better. He should continue on Vitamin D 34517 Units once a week. His urine culture is pending. I started him on Ciprofloxacin pending culture results. Answered all questions.Follow-up appointment given Orders: Orders Electrolytes 2 Weeks N17.9 - Acute kidney failure, unspecified Blood Urea Nitrogen 2 Weeks N17.9 - Acute kidney failure, unspecified Creatinine 2 Weeks N17.9 - Acute kidney failure, unspecified Medications: New ciprofloxacin HCl 500 mg PO BID 20 tabs 0RF Changed From sodium bicarbonate 325 mg PO BID 180 tabs 1RF for indigestion To sodium bicarbonate 650 mg PO BID 60 tabs 1RF for indigestion Coding Level of Care Code Est Pt Level 4 (93238) Diagnoses Acute kidney injury N17.9 Dysuria R30.0 Secondary hyperparathyroidism (of renal origin) N25.81 Primary hypertension I10 Hypertension type: primary hypertension Diabetic nephropathy associated with type 2 diabetes mellitus E11.21 Diabetes mellitus type: type 2 Chronic kidney disease, stage 4 (severe) N18.4
== END 2024-06-28 14:42 | disposition home or self-care (01) ==
PROVIDERS: PCP Family Medicine; Visit Provider Internal Medicine Nephrology
DX: N17.9 Acute kidney failure, unspecified (principal); R30.0 Dysuria; N25.81 Secondary hyperparathyroidism of renal origin; I12.9 Hypertensive chronic kidney disease with stage 1 through stage 4 chronic kidney disease, or unspecified chronic kidney disease; E11.21 Type 2 diabetes mellitus with diabetic nephropathy; N18.4 Chronic kidney disease, stage 4 (severe)
CPT/HCPCS: 99214

== ENCOUNTER 2024-07-13 14:11 | Outpatient (REF) | payer MEDICARE, SELFPAY ==
[2024-07-13 16:11] LABS: MANUAL DIFF FLAG NO
[2024-07-13 16:12] LABS: Basophils Percent Auto 0.7 % (0-2); Eosinophils Absolute Auto 0.1 X10*3/uL (0.0-0.4); Eosinophils Percent Auto 1.7 % (0-4); Hematocrit 33.3 % (42.0-52.0); Hemoglobin 10.9 g/dl (14.0-18.0); Imm Gran Abs Auto 0.03 X10*3/uL (0.00-0.03); Imm Gran Pct Auto 0.5 % (0.0-0.4); Lymphocytes Absolute Auto 1.4 X10*3/uL (1.2-4.9); Lymphocytes Percent Auto 23.6 % (20-40); Mean Corpuscular HGB Conc 32.7 g/dl (31.0-36.0); Mean Corpuscular Hemoglobin 30.8 pg (27.0-33.0); Mean Corpuscular Volume 94.1 fL (80.0-98.0); Mean Platelet Volume 10.3 fL (9.4-12.4); Monocytes Absolute Auto 0.6 X10*3/uL (0.1-1.2); Monocytes Percent Auto 10.1 % (2-11); Neutrophils Absolute Auto 3.8 x10*3/uL (2.0-8.3); Neutrophils Percent Auto 63.4 % (45-73); Platelet Count 279 X10*3/uL (160-400); Red Blood Count 3.54 X10*6/uL (4.60-5.80); Red Cell Distribution Width 14.1 % (11.0-16.0)
[2024-07-13 17:03] LABS: Anion Gap 12 (12-20); Blood Urea Nitrogen 41 mg/dL (9-16); Carbon Dioxide 21 mmol/L (22-29); Chloride 111 mmol/L (96-108); Estimated Glomerular Filt Rate 17; Potassium 5.9 mmol/L (3.3-5.1); Sodium 138 mmol/L (135-145)
== END 2024-07-13 14:12 | disposition home or self-care (01) ==
LOC: HO.HMGCLDS 14:11
PROVIDERS: PCP Family Medicine; Visit Provider Internal Medicine Nephrology
DX: N25.81 Secondary hyperparathyroidism of renal origin (principal); E11.21 Type 2 diabetes mellitus with diabetic nephropathy; I10 Essential (primary) hypertension; N18.4 Chronic kidney disease, stage 4 (severe); R30.0 Dysuria
CPT/HCPCS: 36415; 80051; 82565; 84520; 85025; 87086

== ENCOUNTER 2024-07-14 15:03 | Outpatient (AMB) | payer MEDICARE, SELFPAY ==
[2024-07-14 15:11] VITALS: BP 120/60; PULSE 89; O2SAT 96; BMI 29.1
--- NOTE | 2024-07-14 15:11 | HO.NEPHOV ---
Vital Signs 07/14/24 15:11 Height 5 ft 11 in Weight 208 lb 6 oz BMI 29.1 BP 120/60 Blood Pressure Location Lt brachial Position Sitting Pulse 89 Pulse Source Pulse Oximeter Pulse Oximetry (%) 96 Oxygen Delivery Method Room Air Intake Visit Reasons: 2wk follow up w/labs/ Conf Lamination Inspector Required: No Accompanied by: Self / Same As Patient Allergies liraglutide Allergy (Verified 07/14/24 15:11) Unknown HPI Comments Details: Ryan was seen in follow-up of his chronic kidney disease. He had acute kidney injury on 2 separate occasions needing hemodialysis on both those times. He has been having urinary symptoms. He is not taking Lokelma regularly. He is biopsy-proven diabetic nephropathy. His blood sugar control has been bad . His HbA1c has been high. 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 His blood pressure has been at goal. He denies chest pain, shortness of breath, paroxysmal nocturnal dyspnea, orthopnea, pedal edema, urinary symptoms or orthostasis. He denied taking nonsteroidal anti-inflammatories. His serum creatinine is stable [facility] Medical History (Updated 07/14/24 @ 15:43 by Chris Martínez MD) Proteinuria Type 2 diabetes mellitus with diabetic nephropathy Hypertension Acute kidney injury Review of Systems Const All systems reviewed & are unremarkable except as noted in HPI and below Physical Exam Vital Signs: Last Vital Signs Pulse 89 07/14/24 15:11 BP 120/60 07/14/24 15:11 Pulse Ox 96 07/14/24 15:11 Oxygen Delivery Method Room Air 07/14/24 15:11 BMI result Body Mass Index 29.1 Const General: comfortable and no acute distress Orientation/consciousness: patient oriented x3 HEENT Head: Yes normocephalic Mouth: Normal oral and palatal mucosa present Eyes EOM: EOMs intact bilaterally Neck Neck: Yes supple Resp Auscultation: clear to auscultation bilaterally Cardio Jugular venous distension: no JVD Rate: regular rate GI Palpation (GI): Soft to palpation Auscultation: normal bowel sounds General: Yes no CVA tenderness Back/Spine/Pelvis Back: no CVA tenderness Skin General skin exam: no rashes or lesions noted Neuro General: patient oriented x3 and moves all extremities Extrem General: Yes no pedal edema Results Reviewed Nephrology Results: Hgb 10.9 g/dl (14.0-18.0) L 07/13/24 WBC 6.0 X10*3/uL (4.8-10.8) 07/13/24 Plt Count 279 X10*3/uL (160-400) 07/13/24 Sodium 138 mmol/L (135-145) 07/13/24 Potassium 5.9 mmol/L (3.3-5.1) H 07/13/24 Chloride 111 mmol/L (96-108) H 07/13/24 Carbon Dioxide 21 mmol/L (22-29) L 07/13/24 BUN 41 mg/dL (9-16) H 07/13/24 Creatinine 3.50 mg/dL (0.5-1.4) H 07/13/24 Calcium 7.9 mg/dL (8.4-10.2) L 06/27/24 Phosphorus 3.1 mg/dL (2.7-4.5) 03/23/24 PTH Intact 494.9 pg/mL (8.7-77.1) H 03/23/24 Assessment & Plan Assessment & Plan (1) Secondary hyperparathyroidism (of renal origin): Code(s): N25.81 - Secondary hyperparathyroidism of renal origin Category: Medical (2) Diabetic nephropathy: Code(s): E11.21 - Type 2 diabetes mellitus with diabetic nephropathy Category: Medical Qualifiers: Diabetes mellitus type: type 2 Qualified Code(s): E11.21 - Type 2 diabetes mellitus with diabetic nephropathy (3) Chronic kidney disease, stage 4 (severe): Code(s): N18.4 - Chronic kidney disease, stage 4 (severe) Category: Medical (4) Hypertension: Code(s): I10 - Essential (primary) hypertension Category: Medical Qualifiers: Hypertension type: primary hypertension Qualified Code(s): I10 - Essential (primary) hypertension (5) Hyperkalemia: Code(s): E87.5 - Hyperkalemia Category: Medical Plan Ryan has some diabetic nephropathy and had been having progressive disease. He has H/O tubular injury with BENJAMIN needing renal replacement therapy on 2 separate occasions. He has an BENJAMIN now likely due to tubular injury. He had a renal biopsy in the past which showed diabetic nephropathy. He denies any uremic symptoms. His blood sugar control needs to be better. His blood pressure has been at goal. I reiterated the need to take potassium lowering medications as well as NaHCO3. He avoids nonsteroidal anti-inflammatories. He has not tolerated SOCRATES inhibitor even when his GFR was better. He should continue on Vitamin D 91835 Units once a week. I started him on calcitriol 0.25 mcg three times a week. Answered all questions.Follow-up appointment given Orders: Orders Blood Urea Nitrogen 1 Month E87.5 - Hyperkalemia, N18.4 - Chronic kidney disease, stage 4 (severe) Electrolytes 2 Months E87.5 - Hyperkalemia, N18.4 - Chronic kidney disease, stage 4 (severe) Creatinine 1 Month E87.5 - Hyperkalemia, N18.4 - Chronic kidney disease, stage 4 (severe) Electrolytes 1 Month E87.5 - Hyperkalemia, N18.4 - Chronic kidney disease, stage 4 (severe) Creatinine 2 Months E87.5 - Hyperkalemia, N18.4 - Chronic kidney disease, stage 4 (severe) Blood Urea Nitrogen 2 Months E87.5 - Hyperkalemia, N18.4 - Chronic kidney disease, stage 4 (severe) Medications: New calcitriol 0.25 mcg PO 3XW 90 days 40 caps 3RF sodium polystyrene sulfonate 30 grams PO .3 times a week 90 days 453.6 grams 6RF Coding Level of Care Code Est Pt Level 4 (91510) Diagnoses Secondary hyperparathyroidism (of renal origin) N25.81 Diabetic nephropathy associated with type 2 diabetes mellitus E11.21 Diabetes mellitus type: type 2 Chronic kidney disease, stage 4 (severe) N18.4 Primary hypertension I10 Hypertension type: primary hypertension Hyperkalemia E87.5
== END 2024-07-14 15:47 | disposition home or self-care (01) ==
PROVIDERS: PCP Family Medicine; Visit Provider Internal Medicine Nephrology
DX: N25.81 Secondary hyperparathyroidism of renal origin (principal); E11.21 Type 2 diabetes mellitus with diabetic nephropathy; I12.9 Hypertensive chronic kidney disease with stage 1 through stage 4 chronic kidney disease, or unspecified chronic kidney disease; N18.4 Chronic kidney disease, stage 4 (severe); E87.5 Hyperkalemia
CPT/HCPCS: 99214

== ENCOUNTER → 2024-07-14 15:03 | Outpatient (BNVA) | payer MEDICARE, SELFPAY | PROVIDERS: PCP Family Medicine; Visit Provider Internal Medicine Nephrology | DX: E11.22 Type 2 diabetes mellitus with diabetic chronic kidney disease (principal); E11.21 Type 2 diabetes mellitus with diabetic nephropathy; I12.9 Hypertensive chronic kidney disease with stage 1 through stage 4 chronic kidney disease, or unspecified chronic kidney disease; N25.81 Secondary hyperparathyroidism of renal origin; N18.4 Chronic kidney disease, stage 4 (severe); E87.5 Hyperkalemia | CPT/HCPCS: 99212 ==

== ENCOUNTER 2024-08-09 10:25 | Outpatient (AMB) | payer MEDICARE, SELFPAY ==
[2024-08-09 10:25] VITALS: BP 156/72; PULSE 83; O2SAT 97; BMI 30.8
--- NOTE | 2024-08-09 10:25 | HO.NEPHOV ---
Vital Signs 08/09/24 10:25 Height 5 ft 11 in Weight 221 lb BMI 30.8 BP 156/72 H Blood Pressure Location Lt brachial Position Sitting Pulse 83 Pulse Source Pulse Oximeter Pulse Oximetry (%) 97 Oxygen Delivery Method Room Air Intake Visit Reasons: Dr Martínez pt/Leg swelling Ornamental Iron Erector Required: No Accompanied by: Self / Same As Patient Allergies liraglutide Allergy (Verified 08/09/24 10:28) Unknown Medication List - Last Reconciled 08/09/24 by Keshav Jaramillo MD allopurinol 100 mg PO DAILY amlodipine 2.5 mg PO DAILY calcitriol 0.25 mcg PO 3XW 90 days cholecalciferol (vitamin D3) 1,250 mcg PO QWEEK 90 days ciprofloxacin HCl 500 mg PO BID cyclobenzaprine 10 mg PO BEDTIME furosemide 20 mg PO DAILY gabapentin mg PO DAILY insulin degludec (Tresiba FlexTouch U-100 insulin) units subcut lovastatin 40 mg PO DAILY magnesium oxide 400 mg PO QAM oxycodone 10 mg PO BID PRN pioglitazone 30 mg PO DAILY sodium bicarbonate 650 mg PO BID sodium polystyrene sulfonate 30 grams PO .3 times a week 90 days temazepam 15 mg PO BEDTIME PRN HPI Comments Details: Ryan was seen in follow-up of his chronic kidney disease. He had acute kidney injury on 2 separate occasions needing hemodialysis on both those times. He has been having urinary symptoms. He is not taking Lokelma regularly. He is biopsy-proven diabetic nephropathy. His blood sugar control has been bad . His HbA1c has been high. He follows up with an risk management director. His blood pressure has been at goal. He denies chest pain, shortness of breath, paroxysmal nocturnal dyspnea, orthopnea, pedal edema, urinary symptoms or orthostasis. He denied taking nonsteroidal anti-inflammatories. His serum creatinine is stable 08/09/24 Seen today at his request for worsening edema Has gained > 5 lbs Lasix added by PCP No dyspnea [facility] Medical History (Updated 07/14/24 @ 15:43 by Chris Martínez MD) Proteinuria Type 2 diabetes mellitus with diabetic nephropathy Hypertension Acute kidney injury Physical Exam Vital Signs: Last Vital Signs Pulse 83 08/09/24 10:25 BP 156/72 H 08/09/24 10:25 Pulse Ox 97 08/09/24 10:25 Oxygen Delivery Method Room Air 08/09/24 10:25 BMI result Body Mass Index 30.8 Const General: comfortable and no acute distress Orientation/consciousness: patient oriented x3 HEENT Head: Yes normocephalic Mouth: Normal oral and palatal mucosa present Eyes EOM: EOMs intact bilaterally Neck Neck: Yes supple Resp Auscultation: clear to auscultation bilaterally Cardio Jugular venous distension: no JVD Rate: regular rate GI Palpation (GI): Soft to palpation Auscultation: normal bowel sounds General: Yes no CVA tenderness Back/Spine/Pelvis Back: no CVA tenderness Skin General skin exam: no rashes or lesions noted Neuro General: patient oriented x3 and moves all extremities Extrem General: Yes edema (2 to 3 +) Results Reviewed Nephrology Results: Hgb 10.9 g/dl (14.0-18.0) L 07/13/24 WBC 6.0 X10*3/uL (4.8-10.8) 07/13/24 Plt Count 279 X10*3/uL (160-400) 07/13/24 Sodium 138 mmol/L (135-145) 07/13/24 Potassium 5.9 mmol/L (3.3-5.1) H 07/13/24 Chloride 111 mmol/L (96-108) H 07/13/24 Carbon Dioxide 21 mmol/L (22-29) L 07/13/24 BUN 41 mg/dL (9-16) H 07/13/24 Creatinine 3.50 mg/dL (0.5-1.4) H 07/13/24 Calcium 7.9 mg/dL (8.4-10.2) L 06/27/24 Phosphorus 3.1 mg/dL (2.7-4.5) 03/23/24 PTH Intact 494.9 pg/mL (8.7-77.1) H 03/23/24 Assessment & Plan Assessment & Plan (1) Secondary hyperparathyroidism (of renal origin): Code(s): N25.81 - Secondary hyperparathyroidism of renal origin Category: Medical (2) Diabetic nephropathy: Code(s): E11.21 - Type 2 diabetes mellitus with diabetic nephropathy Category: Medical Qualifiers: Diabetes mellitus type: type 2 Qualified Code(s): E11.21 - Type 2 diabetes mellitus with diabetic nephropathy (3) Chronic kidney disease, stage 4 (severe): Code(s): N18.4 - Chronic kidney disease, stage 4 (severe) Category: Medical (4) Hypertension: Code(s): I10 - Essential (primary) hypertension Category: Medical Qualifiers: Hypertension type: primary hypertension Qualified Code(s): I10 - Essential (primary) hypertension (5) Hyperkalemia: Code(s): E87.5 - Hyperkalemia Category: Medical Plan Ryan has some diabetic nephropathy and had been having progressive disease. He has H/O tubular injury with BENJAMIN needing renal replacement therapy on 2 separate occasions. He has an BENJAMIN now likely due to tubular injury. He had a renal biopsy in the past which showed diabetic nephropathy. He denies any uremic symptoms. His blood sugar control needs to be better. His blood pressure has been at goal. I reiterated the need to take potassium lowering medications as well as NaHCO3. He avoids nonsteroidal anti-inflammatories. He has not tolerated SOCRATES inhibitor even when his GFR was better. He should continue on Vitamin D 72014 Units once a week. I started him on calcitriol 0.25 mcg three times a week. Answered all questions.Follow-up appointment given 08/09/24 Edema is multifactorial - Kayexalate/Amlodipine/ Actos/ NaHCO3 Agree with adding Lasix Will change Kayexalate to LOKELMA Stay on low salt diet ! Medications: New sodium zirconium cyclosilicate (Lokelma) 5 grams PO DAILY 11 ea 2RF Discontinued sodium polystyrene sulfonate Discontinued Reason: Doctor's Order 30 grams PO .3 times a week 90 days 453.6 grams 6RF Coding Level of Care Code Est Pt Level 4 (95233) Diagnoses Secondary hyperparathyroidism (of renal origin) N25.81 Diabetic nephropathy associated with type 2 diabetes mellitus E11.21 Diabetes mellitus type: type 2 Chronic kidney disease, stage 4 (severe) N18.4 Primary hypertension I10 Hypertension type: primary hypertension Hyperkalemia E87.5
== END 2024-08-09 10:43 | disposition home or self-care (01) ==
PROVIDERS: PCP Family Medicine; Visit Provider Internal Medicine Hypertension Specialist
DX: N25.81 Secondary hyperparathyroidism of renal origin (principal); I12.9 Hypertensive chronic kidney disease with stage 1 through stage 4 chronic kidney disease, or unspecified chronic kidney disease; E11.22 Type 2 diabetes mellitus with diabetic chronic kidney disease; N18.4 Chronic kidney disease, stage 4 (severe); E87.5 Hyperkalemia
CPT/HCPCS: 99214

== ENCOUNTER → 2024-08-09 10:25 | Outpatient (BNVA) | payer MEDICARE, SELFPAY | PROVIDERS: PCP Family Medicine; Visit Provider Internal Medicine Hypertension Specialist | DX: E11.22 Type 2 diabetes mellitus with diabetic chronic kidney disease (principal); I12.9 Hypertensive chronic kidney disease with stage 1 through stage 4 chronic kidney disease, or unspecified chronic kidney disease; N18.4 Chronic kidney disease, stage 4 (severe); N25.81 Secondary hyperparathyroidism of renal origin; E11.21 Type 2 diabetes mellitus with diabetic nephropathy; E87.5 Hyperkalemia | CPT/HCPCS: 99212 ==

== ENCOUNTER → 2024-08-18 12:44 | Outpatient (REF) | payer MEDICARE, SELFPAY ==
--- NOTE | 2024-08-18 12:52 | CA_ITS ---
Transthoracic Echocardiogram Patient (Last, First, Middle): Ryan Waggoner, Gender: Male Date of : 1955 Age: 69 Procedure Date: 08/18/2024 Procedure Type: Transthoracic Echocardiogram Location: OP Height: 180.34 cm Weight: 99.79 kg BSA: 2.20 m2 Heart Rate: bpm BP: 140 / 66 mmHg 911 Emergency Services Dispatcher: TO Referring MD: Joanna Angeles MD Symptoms: R60.0 EDEMA Study Quality: Adequate w contrast Conclusions: - 1. Low normal LV ejection fraction of 50-55% with impaired relaxation filling pattern 2. Calcific aortic and mitral valve changes with normal cardiac valvular Dopplers 3. Normal RV systolic pressure 4. No gross pericardial effusion Findings Procedure Information Contrast agent, definity, is being given per protocol without apparent complications. Left Ventricle Normal left ventricular cavity size. There is normal left ventricular wall thickness. The left ventricular systolic function is low normal. The visually estimated ejection fraction is between 50-55%. Spectral Doppler is indicative of an impaired relaxation filling pattern. E/E prime ratio is between 8 and 15 consistent with indeterminate filling pressures. There is mild septal asymmetric hypertrophy. Right Ventricle Normal right ventricular cavity size and systolic function. Atria The left atrium is moderately dilated. There is lipomatous hypertrophy of the interatrial septum. There is no evidence of interatrial shunt. The right atrium is normal in size. Aortic Valve There is mild calcification of the aortic valve. There is no aortic valve stenosis. The mean gradient is 6 mmHg. The aortic valve area is 2.04 cm2. There is no aortic valve regurgitation. Mitral Valve There is mild anterior mitral leaflet thickening. There is mild mitral annular calcification. There is trace mitral valve regurgitation. There is no mitral valve stenosis. Pulmonic Valve The pulmonic valve was not well visualized. Tricuspid Valve Likely normal tricuspid valve structure and function. There is mild tricuspid valve regurgitation. The right ventricular systolic pressure is normal. The right ventricular systolic pressure is 20 mmHg. Normal right atrial pressure. There is no evidence of pulmonary hypertension. Great Vessels All visible segments of the aorta are normal in size. The pulmonary artery was not well visualized. There is no dilatation of the ascending aorta measuring 3.30 cm. Venous The inferior vena cava is normal in size and collapses greater than 50% with inspiration. Pericardium/Pleural There is no evidence of pericardial effusion. Prior Study Comparison No prior study available for comparison. Measurements 2D Linear Measurements IVSd: 1.23 0.6-0.9/0.6-1.0 cm LVIDd: 4.11 3.9-5.3/4.2-5.9 cm LVIDd Index: 1.87 2.4-3.2/2.2-3.1 cm/m2 LVIDs: 2.90 2.0-3.6 cm LVPWd: 1.03 0.7-1.1 cm LA Diam: 4.00 2.7-3.8/3.0-4.0 cm LAIDs Index: 1.82 1.5-2.3 cm/m2 LV Mass: 196.61 67-162/88-224 g LV Mass Index: 89.37 43-95/49-115 g/m2 LVOT Diam: 2.20 3.0+(-)1.3 cm 2D Systolic Function EF 4C: 52.00 >55% EF 2C: 50.30 >55% EF BiP: 51.30 >55% Mitral Valve MV VTI: 0.27 MV Pk Len: 1.00 MV Mn Len: 0.62 MV Pk Grad: 4.00 MV Mn Grad: 2.00 MV Pk E: 0.56 MV PK A: 0.68 MV Decel Time: 231.00 E/A: 0.80 E'Lateral: 6.96 E'Medial: 4.13 E/E' Med: 13.60 E/E' Lat: 8.10 PHT: 68.00 MVA PHT: 3.24 MVA Continuity: 2.82 Decel Grimes: 2.43 Aortic Valve AoV Pk Len: 1.55 AoV Mn Len: 1.15 AoV VTI: 0.38 AoV Pk Grad: 10.00 Aov Mn Grad: 6.00 RUBÉN Cont.VTI: 2.04 LVOT LVOT Pk Len: 0.92 LVOT Mn Len: 0.66 LVOT VTI: 0.20 LVOT Pk Grad: 3.00 LVOT Mn Grad: 2.00 LVOT Diam: 2.20 LVOT Area: 3.80 Diastolic Function MV Pk E: 0.56 MV Pk A: 0.68 E/A: 0.80 E'Medial: 4.13 E/E' Med: 13.60 E' Laterial: 6.96 E/E' Lat: 8.10 Right Ventricle TAPSE (mm): 18.90 TVS' Lne: 10.00 Tricuspid Valve TR Pk Len: 2.08 TR Pk Grad: 17.00 RA Press: 3.00 RVSP: 20.00 Great Vessels Aorta Sinus of Valsalva: 3.17 2.0-3.5 cm Ao Asc: 3.30 2.1-3.4 cm Updated in Other Vendor System with Status of Final Roshan Phillips MD electronically signed on 08/18/2024 3:18:52 PM with status of Final
[2024-08-18 14:20] LABS: Anion Gap 11 (12-20); Blood Urea Nitrogen 47 mg/dL (9-16); Carbon Dioxide 21 mmol/L (22-29); Chloride 113 mmol/L (96-108); Estimated Glomerular Filt Rate 15; Potassium 5.3 mmol/L (3.3-5.1); Sodium 140 mmol/L (135-145)
== END ==
LOC: HO.CARD 12:44
PROVIDERS: PCP Family Medicine; Referring Provider Internal Medicine Nephrology; Visit Provider Family Medicine
DX: E87.5 Hyperkalemia (principal); N18.4 Chronic kidney disease, stage 4 (severe); R60.0 Localized edema
CPT/HCPCS: 36415; 80051; 82565; 84520; 93306; Q9957

== ENCOUNTER → 2024-08-18 12:52 | Outpatient (BNV) | payer MEDICARE, SELFPAY | PROVIDERS: PCP Family Medicine; Referring Provider Internal Medicine Nephrology; Visit Provider Internal Medicine Cardiovascular Disease | DX: I42.2 Other hypertrophic cardiomyopathy (principal); I36.1 Nonrheumatic tricuspid (valve) insufficiency; I35.8 Other nonrheumatic aortic valve disorders; I34.81 Nonrheumatic mitral (valve) annulus calcification | CPT/HCPCS: 93306 ==

== ENCOUNTER 2024-09-15 15:07 | Outpatient (AMB) | payer MEDICARE, SELFPAY ==
--- NOTE | 2024-09-15 15:10 | HO.NEPHOV ---
Vital Signs 09/15/24 15:12 Height 5 ft 11 in Weight 224 lb BMI 31.2 BP 140/60 H Blood Pressure Location Rt brachial Position Sitting Pulse 86 Pulse Source Pulse Oximeter Pulse Oximetry (%) 96 Oxygen Delivery Method Room Air Intake Visit Reasons: 2mon follow up w/labs-Conf Exhibit Display Representative Required: No Accompanied by: Self / Same As Patient Allergies liraglutide Allergy (Verified 09/15/24 15:11) Unknown HPI Comments Details: Ryan was seen in follow-up of his chronic kidney disease. He had acute kidney injury on 2 separate occasions needing hemodialysis on both those times. He has been having urinary symptoms. He is not taking Lokelma regularly. He is biopsy-proven diabetic nephropathy. His blood sugar control has been bad . His HbA1c is better. He follows up with an drafter mechanical. His blood pressure has been at goal. He denies chest pain, shortness of breath, paroxysmal nocturnal dyspnea, orthopnea, pedal edema, urinary symptoms or orthostasis. He denied taking nonsteroidal anti-inflammatories. His serum creatinine is stable. He had edema which was treated with lasix. He has not been taking NaHCO3 as prescribed. He has been taking high K containing diet. FORMERLY [facility], [facility] Medical History (Updated 07/14/24 @ 15:43 by Chris Martínez MD) Proteinuria Type 2 diabetes mellitus with diabetic nephropathy Hypertension Acute kidney injury Physical Exam Vital Signs: Last Vital Signs Pulse 86 09/15/24 15:12 BP 140/60 H 09/15/24 15:12 Pulse Ox 96 09/15/24 15:12 Oxygen Delivery Method Room Air 09/15/24 15:12 BMI result Body Mass Index 31.2 Results Reviewed Nephrology Results: Hgb 10.9 g/dl (14.0-18.0) L 07/13/24 WBC 6.0 X10*3/uL (4.8-10.8) 07/13/24 Plt Count 279 X10*3/uL (160-400) 07/13/24 Sodium 140 mmol/L (135-145) 08/18/24 Potassium 5.3 mmol/L (3.3-5.1) H 08/18/24 Chloride 113 mmol/L (96-108) H 08/18/24 Carbon Dioxide 21 mmol/L (22-29) L 08/18/24 BUN 47 mg/dL (9-16) H 08/18/24 Creatinine 3.86 mg/dL (0.5-1.4) H 08/18/24 Calcium 7.9 mg/dL (8.4-10.2) L 06/27/24 Assessment & Plan Assessment & Plan (1) Hyperkalemia: Code(s): E87.5 - Hyperkalemia Category: Medical (2) Secondary hyperparathyroidism (of renal origin): Code(s): N25.81 - Secondary hyperparathyroidism of renal origin Category: Medical (3) Hypertension: Code(s): I10 - Essential (primary) hypertension Category: Medical Qualifiers: Hypertension type: primary hypertension Qualified Code(s): I10 - Essential (primary) hypertension (4) Chronic kidney disease, stage 4 (severe): Code(s): N18.4 - Chronic kidney disease, stage 4 (severe) Category: Medical (5) Diabetic nephropathy: Code(s): E11.21 - Type 2 diabetes mellitus with diabetic nephropathy Category: Medical Qualifiers: Diabetes mellitus type: type 2 Qualified Code(s): E11.21 - Type 2 diabetes mellitus with diabetic nephropathy Plan Ryan has some diabetic nephropathy and had been having progressive disease. He has H/O tubular injury with BEJNAMIN needing renal replacement therapy on 2 separate occasions. He has an BENJAMIN now likely due to tubular injury. He had a renal biopsy in the past which showed diabetic nephropathy. He denies any uremic symptoms. His blood sugar control needs to be better. His blood pressure has been at goal. I reiterated the need to take potassium lowering medications as well as NaHCO3. He avoids nonsteroidal anti-inflammatories. He has not tolerated SOCRATES inhibitor even when his GFR was better. He should continue on Vitamin D 21934 Units once a week. He could continue calcitriol 0.25 mcg three times a week. Answered all questions.Follow-up appointment given Orders: Orders Creatinine 2 Months E11.21 - Type 2 diabetes mellitus with diabetic nephropathy, E87.5 - Hyperkalemia, I10 - Essential (primary) hypertension, N18.4 - Chronic kidney disease, stage 4 (severe), N25.81 - Secondary hyperparathyroidism of renal origin Blood Urea Nitrogen 2 Months E11.21 - Type 2 diabetes mellitus with diabetic nephropathy, E87.5 - Hyperkalemia, I10 - Essential (primary) hypertension, N18.4 - Chronic kidney disease, stage 4 (severe), N25.81 - Secondary hyperparathyroidism of renal origin Electrolytes 2 Months E11.21 - Type 2 diabetes mellitus with diabetic nephropathy, E87.5 - Hyperkalemia, I10 - Essential (primary) hypertension, N18.4 - Chronic kidney disease, stage 4 (severe), N25.81 - Secondary hyperparathyroidism of renal origin Medications: Discontinued furosemide Discontinued Reason: Doctor's Order 40 mg PO DAILY 7 tabs 0RF Coding Level of Care Code Est Pt Level 4 (97289) Diagnoses Hyperkalemia E87.5 Secondary hyperparathyroidism (of renal origin) N25.81 Primary hypertension I10 Hypertension type: primary hypertension Chronic kidney disease, stage 4 (severe) N18.4 Diabetic nephropathy associated with type 2 diabetes mellitus E11.21 Diabetes mellitus type: type 2
[2024-09-15 15:12] VITALS: BP 140/60; PULSE 86; O2SAT 96; BMI 31.2
--- OUTSIDE RECORDS SUMMARY | 2024-09-15 16:10 | XMS_ITS | Clinical Summary ---
Author Organization [facility] ity Address [address] [place] [address] Care Team Providers Care Nuclear Pharmacist Name Role Phone Unavailable Primary Care Provider Unavailabl e Social History Tobacco Use Types Packs/Day Years Used Date Smoking Tobacco: Never Assessed Sex and Gender Information Value Date Recorded Sex Assigned at Not on file Legal Sex Male 9:49 PM EST Gender Identity Not on file Sexual Orientation Not on file Plan of Treatment Health Maintenance Due Date Last Done Comments DTaP,Tdap,and Td Vaccines (1 - Tdap) 1972 Pneumococcal Vaccine: 50+ Ye ars (1 of 1 - PCV) 2003 Zoster Vaccines (1 of 2) 2003 Abdominal Aortic Aneurysm (A AA) Screen 06/28/2022 Cholesterol Screening (Lipid Panel) 06/28/2022 Colorectal Cancer Screening: Colonoscopy 06/28/2022 Depression Screening 06/28/2022 Falls Risk Assessment 06/28/2022 Hepatitis C Screening 06/28/2022 Social Influencers of Health Screening 06/28/2022 COVID-19 Vaccine (1 - 2023-2 5 season) 2024 Influenza Vaccine (#1) 2024 RSV Immunization Patients 60 + Years Old (1 - 1-dose 75+ series) 2028 HIB Vaccines Aged Out No longer eligi ble based on patient's age to complete this topic HPV Vaccines Aged Out No longer eligi ble based on patient's age to complete this topic Hepatitis A Vaccines Aged Out No long er eligible based on patient's age to complete this topic Hepatitis B Vaccines Aged Out No long er eligible based on patient's age to complete this topic IPV Vaccines Aged Out No longer eligi ble based on patient's age to complete this topic MMR Vaccines Aged Out No longer eligi ble based on patient's age to complete this topic Meningococcal ACWY Vaccine Aged Out N o longer eligible based on patient's age to complete this topic Meningococcal B Vacine Aged Out No lo nger eligible based on patient's age to complete this topic RSV Immunization Patients Un daisy 20 months Aged Out No longer eligible b ased on patient's age to complete this topic Varicella Vaccines Aged Out No longer eligible based on patient's age to complete this topic Advance Directives Documents on File Type Date Recorded Patient 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
--- OUTSIDE RECORDS SUMMARY | 2024-09-15 16:10 | XMS_ITS | Clinical Summary ---
Author Organization [facility] Address [address] [facility] [address] [place] [address] Phone Care Team Providers Care Weatherization Coordinator Name Role Phone Joanna Angeles MD Primary Care Provider [phone] Allergies Active Allergy Reactions Criticality Noted Date Comments Liraglutide Other (see comments) 09/25/2020 Medications allopurinol (ZYLOPRIM) 100 MG tablet Take 1 tablet by mouth 1 (one) time each day Active amitriptyline (ELAVIL) 75 MG tablet Take 1 tablet by mouth 1 (one) time each day Active gabapentin (NEURONTIN) 300 MG capsule Take 1 capsule by mouth 1 (one) time each day Active lovastatin (MEVACOR) 40 MG tablet Take 1 tablet by mouth 1 (one) time each day Active temazepam (RESTORIL) 15 MG capsule Take 15 mg by mouth at night if needed for sleep Active pioglitazone (ACTOS) 30 MG tablet Take 30 mg by mouth 1 (one) time each day Active glipiZIDE (GLUCOTROL) 5 MG tablet Take 5 mg by mouth 2 (two) times a day before meals Active amLODIPine (NORVASC) 5 MG tablet Take 5 mg by mouth 1 (one) time each day 11/26/19 23 Active Tresiba FlexTouch 100 UNIT/ML injection INJECT 65 UNITS SUBCUTANEOUSLY NIGHTLY E11.9 90 DAY 11/14/19 23 Active magnesium oxide (MAG-OX) 400 MG tablet Take 1 tablet by mouth 1 (one) time each day 02/18/20 23 Active sodium polystyrene sulfonate (KAYEXALATE) powder TAKE 15 GRAM EVERY DAY BY ORAL ROUTE DIRECTED FOR 2 DAYS Active traMADol (ULTRAM) 50 MG tablet TAKE 2 TABLETS BY MOUTH 3 TIMES A DAY NEEDED 04/28/20 14 Active Active Problems Problem Noted Date Diagnosed Date Otitis media 03/13/2023 03/13/2023 Hypertension monitoring status 12/30/2022 0 03/13/2023 Overview (03/13/2023): enrolled Type 2 diabetes mellitus 12/19/2021 Hypertension 05/17/2021 Hypomagnesemia 05/17/2021 Iliopsoas bursitis <Right side> 01/04/2021 Acute nontraumatic kidney injury 09/25/2020 Stage 3a chronic kidney disease 09/25/2020 Hyperkalemia 09/25/2020 Renal disorder due to type 2 diabetes mellitus 0 09/25/2020 Hypertensive renal disease 06/04/2020 Uncontrolled type 2 diabetes mellitus 01/20/2014 Overview (04/26/2024): RECORDED 01/20/2014 11:18AM BY VIANCA SENA, HISTORICAL SUMMARY Replacing diagnoses that were inactivated after the 04/26/24 Regulatory Import Proteinuria 01/18/2014 Chronic kidney disease stage 1 01/18/2014 0 03/13/2023 Overview (03/13/2023): STORY: ELEVATED MICROALBUMIN; RECORDED 01/18/2014 2:14PM BY CASIE AUSTIN MA, OFFICE VISIT Influenza vaccine needed 04/14/2013 023 Overview (03/13/2023): RECORDED 04/14/2013 3:41PM BY CASIE WISE MA, OFFICE VISIT Infective otitis externa 07/23/2012 023 Overview (03/13/2023): RECORDED 07/23/2012 1:53PM BY CASIE WISE MA, ANNOTATION/ADDENDUM Malaise and fatigue 04/28/2012 03/13/2023 Overview (03/13/2023): RECORDED 04/28/2012 9:25AM BY LIBBY VILLALOBOS MA, ANNOTATION/ADDENDUM Resolved Problems Problem Noted Date Diagnosed Date Resolved Date 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 09/25/2020 05/16/2021 Primary erectile dysfunction 09/25/2020 05/16/2021 Tachycardia 09/25/2020 05/16/2021 Poor short-term memory 06/06/202005/16 Diabetic on insulin 04/16/2018 05/16/20 Noncompliance with therapeutic regimen 04/16/2018 05/16/2021 Scrotal varix 01/18/2014 05/16/2021 Displacement of lumbar inter vertebral disc without myelopathy 01/18/2014 05/16/2021 Gout 01/18/2014 05/16/2021 Hyperlipidemia 01/18/2014 05/16/2021 Insomnia 01/18/2014 05/16/2021 Obesity 01/18/2014 05/16/2021 Urolithiasis 01/18/2014 05/16/2021 Immunizations Name Administration Dates Next Due Influenza (IM) Preservative Free 04/10/2014 Influenza Split High Dose Pr eservative Free IM 04/15/2019 Influenza Split Preservative Free ID 04/14/2013, 07/23/2012 Influenza, Quadrivalent, Pre servative Free 04/16/2018,04/01/2017,04/29/2016,04/09 Influenza, Unspecified 06/12/2022,06/18/2021,03/2020 Moderna SARS-COV-2 06/23/2021,09/14/2020, 021 Pneumococcal Conjugate 13-Valent 03/05/2018,08/08/2017,02/04/2017 Pneumococcal Polysaccharide 04/15/2019, 2 Td 03/05/2022 Tdap 07/23/2012 Zoster 02/23/2017,01/30/2017,02/28/2015 Family History Relation Status Comments Father Mother Alive Social History Tobacco Use Types Packs/Day Years Used Date Smoking Tobacco: Never Smokeless Tobacco: Never Tobacco Cessation:Counseling Given: No Alcohol Use Standard Drinks/Week Comments No 0 (1 standard drink = 0.6 oz pur e alcohol) Sex and Gender Information Value Date Recorded Sex Assigned at Not on file Legal Sex Male 5:01 PM EST Gender Identity Not on file Sexual Orientation Not on file Last Filed Vital Signs Vital Sign Reading Time Taken Comments Blood Pressure 136/68 06/04/2023 2:39 PM EST Pulse 88 06/04/2023 2:39 PM EST Temperature - - Respiratory Rate - - Oxygen Saturation 97% 06/04/2023 2:39 PM EST Inhaled Oxygen Concentration - - Weight 97.3 kg (214 lb 6.4 oz) 06/04/2023 2:39 P M EST Height 180.3 cm (5' 11 ) 06/04/2023 2:39 PM EST Body Mass Index 29.9 06/04/2023 2:39 PM EST Plan of Treatment Health Maintenance Due Date Last Done Comments Colorectal Cancer Screening: Annual FOBT 2002 Colorectal Cancer Screening: Colonoscopy 2002 Colorectal Cancer Screening: Sigmoidoscopy 2002 Diabetes: Hemoglobin A1C 08/24/2020 03/21/2019 Diabetes: Ophthalmology Exam 08/24/2020 Diabetes: Pedal Pulse Checked 08/24/2020 Diabetes: Sensory Foot Exam 08/24/2020 Diabetes: Visual Foot Exam 08/24/2020 Influenza Vaccine (#1) 2024 2, 06/18/2021, 06/04/2020, Additional history exists Pneumococcal Vaccine: 65+ Years Completed 04/15/2019, 03/05/2018, 02/25/2018, Additional history exists Hepatitis B Vaccine Aged Out No longe r eligible based on patient's age to complete this topic Procedures Procedure Name Priority Date/Time Associated Diagnosis Comments HEMOGLOBIN A1C Routine 03/21/2019 2:49 PM EDT from Last 3 Months or Most Recently Relevant to Health Maintenance Results * (ABNORMAL) Hemoglobin A1c (03/21/2019 2:49 PM EDT) Hemoglobin A1C 10.0(H) (4-6) % [facility] 3 Comment: HEMOGLOBIN A1C(%) ?? GLUCOSE CONTROL INDEX ?<6% ? EXCELLENT ?6-7% ?VERY GOOD ?7-8% ?GOOD ?8-10% ? FAIR ?>10% ?POOR Hemoglobin (Hb) A1c testing is performed by Rita Clau-quant immunoassay. Any cause of shortened erythrocyte survival will reduce exposure of erythrocytes to glucose with a consequent decrease in Hb A1c (%). Testing performed or reported by ~[facility], ~a Service of [facility], ~[address] [place] [address]~ 03/21/2019 2:49 PM EDT us Chris Martínez MD LAB BLOOD ORDERABLES Final Resul t [facility] 3 from Last 3 Months or Most Recently Relevant to Health Maintenance Insurance UHC MEDICARE [facility] MEDICARE Care Teams Weatherization Coordinator Relationship Specialty Start Date End Date Joanna Angeles MD [address] [id number] PCP - General Family Medicine 02/17/23
--- OUTSIDE RECORDS SUMMARY | 2024-09-15 16:12 | XMS_ITS | Encounter Summary ---
Author Organization [facility] Address [address] [place] [address] Phone Care Team Providers Care Supervising Editor Trailer Name Role Phone Joanna Angeles MD Primary Care Provider [phone] Reason for Visit * Reason Comments Med Refill Encounter Details Date Type Department Care Team ([facility] st Contact Info) Description 06/09/2023 Refill [facility] [address] [place] [address] Ahmet Oviedo MD [address] [facility] [address] [place] [address] Social History Tobacco Use Types Packs/Day Years Used Date Smoking Tobacco: Never Smokeless Tobacco: Never Alcohol Use Standard Drinks/Week Comments No 0 (1 standard drink = 0.6 oz pur e alcohol) Sex and Gender Information Value Date Recorded Sex Assigned at Not on file Legal Sex Male 5:01 PM EST Gender Identity Not on file Sexual Orientation Not on file documented as of this encounter Plan of Treatment Not on file documented as of this encounter Visit Diagnoses Not on filedocumented in this encounter Care Teams Supervising Editor Trailer Relationship Specialty Start Date End Date Joanna Angeles MD [address] [facility] [address] [place] [id number] PCP - General Family Medicine 02/17/23 documented as of this encounter
== END 2024-09-15 15:37 | disposition home or self-care (01) ==
PROVIDERS: PCP Family Medicine; Visit Provider Internal Medicine Nephrology
DX: E87.5 Hyperkalemia (principal); N25.81 Secondary hyperparathyroidism of renal origin; I12.9 Hypertensive chronic kidney disease with stage 1 through stage 4 chronic kidney disease, or unspecified chronic kidney disease; N18.4 Chronic kidney disease, stage 4 (severe); E11.21 Type 2 diabetes mellitus with diabetic nephropathy
CPT/HCPCS: 99214

== ENCOUNTER → 2024-09-15 15:07 | Outpatient (BNVA) | payer MEDICARE, SELFPAY | PROVIDERS: PCP Family Medicine; Visit Provider Internal Medicine Nephrology | DX: E11.22 Type 2 diabetes mellitus with diabetic chronic kidney disease (principal); I12.9 Hypertensive chronic kidney disease with stage 1 through stage 4 chronic kidney disease, or unspecified chronic kidney disease; N18.4 Chronic kidney disease, stage 4 (severe); E87.5 Hyperkalemia; E11.21 Type 2 diabetes mellitus with diabetic nephropathy; N25.81 Secondary hyperparathyroidism of renal origin | CPT/HCPCS: 99212 ==

== ENCOUNTER → 2024-10-17 20:37 | Outpatient (BNV) | payer MEDICARE, SELFPAY | PROVIDERS: Emergency Provider Emergency Medicine; Visit Provider Internal Medicine Cardiovascular Disease | DX: R00.0 Tachycardia, unspecified (principal) | CPT/HCPCS: 93010 ==

== ENCOUNTER 2024-10-17 20:46 | Emergency (ER) | payer MEDICARE, SELFPAY ==
--- NOTE | ~2024-10-17 | XR_ITS ---
CLINICAL HISTORY: Cough 1 view chest x-ray Comparison: None Findings: Patchy bilateral airspace disease greater on the right than left concerning for multifocal pneumonia. Normal heart size. Likely small bilateral effusions. No pneumothorax. No acute osseous findings. IMPRESSION: 1. Patchy bilateral consolidation greater on the right than the left concerning for multifocal pneumonia. This document has been electronically signed by: Pinky Machuca MD on 10/17/2024 21:42:14
--- NOTE | 2024-10-17 20:37 | ECG_ITS ---
Test Reason : TACHYCARDIA Blood Pressure : */* mmHG Vent. Rate : 114 BPM Atrial Rate : 114 BPM P-R Int : 140 ms QRS Dur : 78 ms QT Int : 336 ms P-R-T Axes : 43 10 44 degrees QTcB Int : 463 ms Sinus tachycardia Otherwise normal ECG No previous ECGs available Referred By: Generic ED Physician Electronically Signed By: AZEEM EMANUEL MD
[2024-10-17 20:48] VITALS: BP 136/70; PULSE 121; O2SAT 85; BMI 33.2
--- NOTE | 2024-10-17 20:56 | ED_ITS ---
HPI - General Adult General Chief complaint: Dyspnea Stated complaint: sepsis, diarrhea, ?UTI Time Seen by Provider: 10/17/24 21:16 Source: patient and EMS Mode of arrival: EMS Limitations: no limitations History of Present Illness ED Provider: April Sarabia NP HPI narrative: patient is a 69-year-old male presents emergency department via EMS for evaluation. You recently returned home from a [address] trip a few days ago, overall has not been himself. Lethargic, having hallucinations, evidently in the past has presented similarly with a UTI. Was tachypneic and tachycardic per EMS, O2 saturation 85% on room air placed on nasal cannula. On my evaluation he states I just feel like crap he is audibly wheezy and tachypneic, admits to having cough, no smoking or COPD / asthma history. Denies known fevers at home. Denies headache, dizziness, chest pain, nausea, vomiting, abdominal pain, symptoms, numbness or tingling of the extremities Related Data Home Medications ?Medication ?Instructions ?Recorded ?Confirmed allopurinol 100 mg tablet 100 mg PO DAILY 09/23/23 08/09/24 gabapentin 300 mg capsule mg PO DAILY 09/23/23 08/09/24 insulin degludec 100 unit/mL (3 unit subcut 09/23/23 08/09/24 mL) subcutaneous pen (Tresiba FlexTouch U-100 insulin) temazepam 15 mg capsule 15 mg PO BEDTIME PRN 09/23/23 08/09/24 amlodipine 2.5 mg tablet 2.5 mg PO DAILY 03/29/24 08/09/24 atorvastatin 40 mg tablet mg PO DAILY 09/15/24 Previous Rx's ?Medication ?Instructions ?Recorded magnesium oxide 400 mg (241.3 mg 400 mg PO QAM #30 tabs 01/06/24 magnesium) tablet calcitriol 0.25 mcg capsule 0.25 mcg PO 3XW 90 days #40 caps 07/14/24 sodium bicarbonate 650 mg tablet 650 mg PO BID for indigestion #180 07/25/24 tabs sodium zirconium cyclosilicate 5 5 g PO DAILY #11 ea 08/09/24 gram oral powder packet (Lokelma) cholecalciferol (vitamin D3) 1,250 1,250 mcg PO .Q monthly #13 caps 09/21/24 mcg (50,000 unit) capsule Allergies Allergy/AdvReac Type Severity Reaction Status Date / Time liraglutide Allergy Unknown Verified 10/17/24 20:52 Review of Systems 2 Review of Systems: Yes all other systems are reviewed and are negative ON LICENSE OF [facility] Past Medical History Attestation statement: The following information was validated with the patient. Source: old records reviewed Medical History Proteinuria Type 2 diabetes mellitus with diabetic nephropathy Hypertension Acute kidney injury Social History Social History Smoked in Last 30 Days: No Use of substances other than those prescribed or required for medical reasons: No Advance Directives: No Advance Directives Information Provided: No Do you have a plan to hurt others: No Plan Physical Exam ED Vital Signs: Vital Signs - 24 hr 10/17/24 21:01 10/17/24 22:00 10/17/24 22:12 Temperature 101 F H 100.9 F H Pulse Rate 121 H 104 H 107 H Respiratory Rate 24 H 20 18 Blood Pressure 122/72 134/72 Pulse Oximetry 93 96 Oxygen Delivery Method Nasal Cannula Nasal Cannula Oxygen Flow Rate 4 6 Fraction of Inspired Oxygen 10/17/24 22:42 10/17/24 22:48 10/18/24 01:30 Temperature 98.0 F Pulse Rate 115 H 115 H 97 Respiratory Rate 15 Blood Pressure 136/66 120/64 110/58 L Pulse Oximetry 93 Oxygen Delivery Method Nasal Cannula Oxygen Flow Rate 5 Fraction of Inspired Oxygen 10/18/24 02:02 10/18/24 04:05 10/18/24 05:10 Temperature 97.5 F 97.5 F Pulse Rate 97 88 Respiratory Rate 14 15 14 Blood Pressure 132/64 125/59 L Pulse Oximetry 96 95 Oxygen Delivery Method Nasal Cannula Nasal Cannula Oxygen Flow Rate 5 5 Fraction of Inspired Oxygen 10/18/24 06:06 10/18/24 07:35 10/18/24 08:33 Temperature 97.5 F 97.5 F Pulse Rate 100 102 H 102 H Respiratory Rate 16 12 12 Blood Pressure 160/68 H 147/72 H 147/72 H Pulse Oximetry 99 94 94 Oxygen Delivery Method BiPAP BiPAP BiPAP Oxygen Flow Rate Fraction of Inspired Oxygen 35 35 35 BMI result Body Mass Index 33.2 Appearance: Alert.?Oriented to person, place and time. No acute distress.?Normal affect. Eyes: Pupils equal, round and reactive to light.? ENT: Pharynx normal.?? Neck: Normal inspection.? Neck supple.?? CVS: Heart sounds normal. tachycardic. Pulses normal.?? Respiratory: tachypneic. No use of accessory muscles. Inspiratory and expiratory wheezing bilaterally. Abdomen: Soft and non-tender. Normoactive bowel sounds. ? Skin: Skin warm and dry.? Normal skin color.??? Extremities: No lower extremity edema.? No calf ttp? Neuro: Moves all extremities spontaneously. Sensation intact bilaterally. CN II- XII intact. No focal neuro deficits. Ambulates with normal steady gait. Course Reevaluation(s) Reevaluation #1: Patient has been found to have metabolic acidosis likely secondary to BENJAMIN on CKD, however may be mixed cause given RSV positive, hypomagnesemia of 1.2, elevated troponin 321 without associated chest pain and no acute ischemic changes on EKG; revealing a sinus tachycardia ventricular rate of 114, QTC 463, no ST-elevation, no T-wave inversion. Patient will receive magnesium sulfate 2 g IV, will be placed on a bicarb drip at 80 mL/hour. Pending repeat troponin, chemistries, and a venous gas. Spoken nephrology Dr. Perera, agrees with plan of care advises no indication for emergent dialysis so long as his potassium remained stable overnight. Patient is noted to be RSV positive. On review of CXR, bilateral consolidation right greater than left concerning for multifocal pneumonia consistent with RSV Time: 22:08 Reevaluation #2: pH decreasing down to 7.12 with bicarb remaining at 16. Lytes are stable. No progression of BENJAMIN. Magnesium has increased to 1.7. Delta troponin of 375, <50% increase, no CP. Consult telecommunications field technician Dr. Ibarra. Unfortunately no ICU beds available here. Will contact [facility] pending transfer, as patient can not be admitted to medicine service with acidosis Time: 01:19 Reevaluation #3: I spoke with [facility] ICU fellow Dr. Hewitt, who advises that they are currently close to outside transfer, advised may attempt to contact them back in the morning to see if there bed status has changed. Patient signed out to my attending Dr. Foster pending repeat VBG, chemistries, and disposition planning. Time: 03:29 Additional Reevaluation(s): after review of patient and case I am going to start him on bipap given the pH is worsening along with increase in CO2 - suspect a mixed component no beds here or [facility] discussed with brother and his sister Earlene about [facility] they are agreeable [facility] ED ICU discussion with attending will accept transfer [facility] [address] [phone] Medications Administered Discontinued Medications Generic Name Dose Route Start Last Admin Trade Name Freq PRN Reason Stop Dose Admin Acetaminophen 975 mg 10/17/24 21:04 10/17/24 21:12 Acetaminophen 325 Mg Tablet PO 10/17/24 21:05 975 mg ONCE ONE Administration Albuterol Sulfate 2.5 mg/ 5 mg 10/17/24 21:55 10/17/24 21:57 Albuterol Sulfate 2.5 mg INHALE 10/17/24 21:56 5 mg ONCE ONE Administration Ceftriaxone Sodium 1 gm 10/17/24 21:04 10/17/24 21:12 Ceftriaxone Sodium 1 Gm Vial IVPUSH 10/17/24 21:05 1 gm ONCE ONE Administration Sodium Chloride 2,259 mls @ 2,259 mls/hr 10/17/24 21:04 10/17/24 22:17 Ns IV 10/17/24 22:03 Infused .Q1H STA Infusion Sodium Chloride 1,000 mls @ 999 mls/hr 10/17/24 21:15 10/17/24 22:19 Ns IV 10/17/24 22:15 Not Given .Q1H1M BRI Magnesium Sulfate 2 gm in 50 mls @ 25 mls/hr 10/17/24 21:41 10/18/24 00:19 Magnesium Sulfate/H2o IV 10/17/24 23:40 Infused ONCE ONE Infusion Sodium Bicarbonate 50 meq/ 1,000 mls @ 80 mls/hr 10/17/24 22:15 10/18/24 08:18 Dextrose IV Infused .[id number] BRI Infusion Sodium Chloride 500 mls @ 999 mls/hr 10/17/24 22:15 10/17/24 22:48 Ns IV 10/17/24 22:45 Infused .Q31M BRI Infusion Azithromycin 500 mg/ Sodium 250 mls @ 125 mls/hr 10/18/24 05:50 10/18/24 06:24 Chloride IV 10/18/24 07:49 125 mls/hr ONCE ONE Administration Sodium Bicarbonate 150 meq/ 1,000 mls @ 80 mls/hr 10/18/24 08:00 10/18/24 08:10 Dextrose IV 80 mls/hr .[id number] BRI Administration Methylprednisolone Sodium Succinate 125 mg 10/17/24 21:10 10/17/24 21:25 Methylprednisolone Sod Succ 125 Mg/2 Ml Vial IVPUSH 10/17/24 21:11 125 mg ONCE ONE Administration Medical Decision Making Medical Decision Making MDM Narrative: patient is a 69-year-old male with past medical history of type 2 diabetes with nephropathy, CKD, hypertension who presents emergency department via EMS for evaluation as per HPI. sepsis alert called at the time of my assumption of care due to tachypnea, tachycardia, and febrile. Sepsis fluid Bolus deferred, patient to receive 500mL normal saline IV secondary to CKD stage 4 with eGFR 15, will receive acetaminophen for fever. Covering with Rocephin. He has inspiratory and expiratory wheezing he will additionally received Solu-Medrol, and DuoNeb. Will obtain CBC to evaluate for leukocytosis/ anemia, CMP and lipase to evaluate for abnormal electrolytes /abnormal renal function/ abnormal hepatic/biliary function, EKG and troponin to evaluate for ischemia/ACS. Chest x-ray to evaluate for consolidation/ infiltrate/ mass/ pulmonary congestion and Urinalysis. Differential Diagnosis Differential Diagnoses: The differential diagnosis associated with the presentation includes ( see narrative above) Admission/Observation Consideration of admission/observation: Escalation of care including admission/observation considered Consult Healthcare Provider Management of the patient was discussed with: Racking Technician (See course narrative) Lab Data [facility] Lab Attestation statement: I reviewed the patient's lab results. 10/17/24 20:55 10/18/24 04:11 Labs: Lab Results 10/17/24 10/17/24 10/17/24 Range/Units 20:55 21:07 21:16 WBC 10.2 (4.8-10.8) X10*3/uL RBC 2.91 L (4.60-5.80) X10*6/uL Hgb 8.9 L (14.0-18.0) g/dl Hct 27.2 L (42.0-52.0) % MCV 93.5 (80.0-98.0) fL MCH 30.6 (27.0-33.0) pg MCHC 32.7 (31.0-36.0) g/dl RDW 15.0 (11.0-16.0) % Plt Count 203 D (160-400) X10*3/uL MPV 10.8 (9.4-12.4) fL Immature Gran % (Auto) 3.7 H (0.0-0.4) % Neut % (Auto) 81.4 H (45-73) % Lymph % (Auto) 6.9 L (20-40) % [place] % (Auto) 7.7 (2-11) % Eos % (Auto) 0.1 (0-4) % Baso % (Auto) 0.2 (0-2) % Lymph # (Auto) 0.7 L (1.2-4.9) X10*3/uL [place] # (Auto) 0.8 (0.1-1.2) X10*3/uL Eos # (Auto) 0.0 (0.0-0.4) X10*3/uL Baso # (Auto) 0.0 (0.0-0.2) X10*3/uL Abs Immat Gran (auto) 0.38 H (0.00-0.03) X10*3/uL Absolute Neuts (auto) 8.3 (2.0-8.3) x10*3/uL Absolute Nucleated RBC 0.050 H (0.0-0.012) X10*3/uL Nucleated RBC % (auto) 0.5 H (0.0-0.2) /100WBC PT 12.6 H (10.9-12.4) SEC INR 1.1 (0.9-1.1) VBG pH 7.20 L* (7.32-7.43) VBG pCO2 40 mmHg VBG pO2 69 mmHg VBG HCO3 16 L (22-26) mmol/L VBG O2 Saturation 87.0 % VBG Base Excess -10.6 mmol/L Sodium 142 (135-145) mmol/L Potassium 4.5 (3.3-5.1) mmol/L Chloride 115 H (96-108) mmol/L Carbon Dioxide 15 L (22-29) mmol/L Anion Gap 17 (12-20) BUN 72 H (9-16) mg/dL Creatinine 6.45 H* (0.5-1.4) mg/dL Estim Creat Clear Calc 13.1 Estimated GFR 9 Random Glucose 147 H (60-115) mg/dL Lactic Acid 1.8 (0.5-2.0) mmol/L Calcium 7.9 L (8.4-10.2) mg/dL Magnesium 1.2 L* (1.6-2.6) mg/dL Total Bilirubin 0.5 (0.0-1.0) mg/dL AST 52 H (5-37) U/L ALT 27 (0-40) U/L Alkaline Phosphatase 195 H (39-117) U/L Troponin I High Sens 321.0 H* (<3.5-35.0) ng/L B-Natriuretic Peptide 668 H (<100) pg/mL Total Protein 7.6 (6.5-8.0) g/dL Albumin 3.2 L (3.5-5.0) g/dL Urine Color Urine Appearance Urine pH (5.0-9.0) Ur Specific [place] (1.005-1.025) Urine Protein (Neg-Trace) mg/dL Urine Glucose (UA) (Negative) mg/dL Urine Ketones (Negative) mg/dL Urine Blood (Negative) Urine Nitrite (Negative) Ur Leukocyte Esterase (Negative) Urine RBC (0-2) /HPF Urine WBC (0-5) /HPF Ur Squamous Epith Cells (0-2) /HPF Urine Bacteria (None Seen) Hyaline Casts (0-2) /LPF Granular Casts Influenza Type A (PCR) NEGATIVE (Negative) Influenza Type B (PCR) NEGATIVE (Negative) RSV RNA Qual (PCR) POSITIVE A (Negative) SARS-CoV-2 RNA (RT-PCR) NEGATIVE (Negative) 10/18/24 10/18/24 10/18/24 Range/Units 00:46 00:47 00:58 WBC (4.8-10.8) X10*3/uL RBC (4.60-5.80) X10*6/uL Hgb (14.0-18.0) g/dl Hct (42.0-52.0) % MCV (80.0-98.0) fL MCH (27.0-33.0) pg MCHC (31.0-36.0) g/dl RDW (11.0-16.0) % Plt Count (160-400) X10*3/uL MPV (9.4-12.4) fL Immature Gran % (Auto) (0.0-0.4) % Neut % (Auto) (45-73) % Lymph % (Auto) (20-40) % [place] % (Auto) (2-11) % Eos % (Auto) (0-4) % Baso % (Auto) (0-2) % Lymph # (Auto) (1.2-4.9) X10*3/uL [place] # (Auto) (0.1-1.2) X10*3/uL Eos # (Auto) (0.0-0.4) X10*3/uL Baso # (Auto) (0.0-0.2) X10*3/uL Abs Immat Gran (auto) (0.00-0.03) X10*3/uL Absolute Neuts (auto) (2.0-8.3) x10*3/uL Absolute Nucleated RBC (0.0-0.012) X10*3/uL Nucleated RBC % (auto) (0.0-0.2) /100WBC PT (10.9-12.4) SEC INR (0.9-1.1) VBG pH 7.12 L* (7.32-7.43) VBG pCO2 49 mmHg VBG pO2 54 mmHg VBG HCO3 16 L (22-26) mmol/L VBG O2 Saturation 74.0 % VBG Base Excess -12.2 mmol/L Sodium 143 (135-145) mmol/L Potassium 4.3 (3.3-5.1) mmol/L Chloride 115 H (96-108) mmol/L Carbon Dioxide 15 L (22-29) mmol/L Anion Gap 17 (12-20) BUN 75 H (9-16) mg/dL Creatinine 6.49 H* (0.5-1.4) mg/dL Estim Creat Clear Calc 13.0 Estimated GFR 9 Random Glucose 174 H (60-115) mg/dL Lactic Acid (0.5-2.0) mmol/L Calcium 7.2 L D (8.4-10.2) mg/dL Magnesium 1.7 (1.6-2.6) mg/dL Total Bilirubin 0.3 (0.0-1.0) mg/dL AST 48 H (5-37) U/L ALT 23 (0-40) U/L Alkaline Phosphatase 152 H (39-117) U/L Troponin I High Sens 375.1 H* (<3.5-35.0) ng/L B-Natriuretic Peptide (<100) pg/mL Total Protein 6.7 (6.5-8.0) g/dL Albumin 2.9 L (3.5-5.0) g/dL Urine Color Urine Appearance Urine pH (5.0-9.0) Ur Specific [place] (1.005-1.025) Urine Protein (Neg-Trace) mg/dL Urine Glucose (UA) (Negative) mg/dL Urine Ketones (Negative) mg/dL Urine Blood (Negative) Urine Nitrite (Negative) Ur Leukocyte Esterase (Negative) Urine RBC (0-2) /HPF Urine WBC (0-5) /HPF Ur Squamous Epith Cells (0-2) /HPF Urine Bacteria (None Seen) Hyaline Casts (0-2) /LPF Granular Casts Influenza Type A (PCR) (Negative) Influenza Type B (PCR) (Negative) RSV RNA Qual (PCR) (Negative) SARS-CoV-2 RNA (RT-PCR) (Negative) 10/18/24 10/18/24 10/18/24 Range/Units 02:05 04:11 04:19 WBC (4.8-10.8) X10*3/uL RBC (4.60-5.80) X10*6/uL Hgb (14.0-18.0) g/dl Hct (42.0-52.0) % MCV (80.0-98.0) fL MCH (27.0-33.0) pg MCHC (31.0-36.0) g/dl RDW (11.0-16.0) % Plt Count (160-400) X10*3/uL MPV (9.4-12.4) fL Immature Gran % (Auto) (0.0-0.4) % Neut % (Auto) (45-73) % Lymph % (Auto) (20-40) % [place] % (Auto) (2-11) % Eos % (Auto) (0-4) % Baso % (Auto) (0-2) % Lymph # (Auto) (1.2-4.9) X10*3/uL [place] # (Auto) (0.1-1.2) X10*3/uL Eos # (Auto) (0.0-0.4) X10*3/uL Baso # (Auto) (0.0-0.2) X10*3/uL Abs Immat Gran (auto) (0.00-0.03) X10*3/uL Absolute Neuts (auto) (2.0-8.3) x10*3/uL Absolute Nucleated RBC (0.0-0.012) X10*3/uL Nucleated RBC % (auto) (0.0-0.2) /100WBC PT (10.9-12.4) SEC INR (0.9-1.1) VBG pH 7.07 L* (7.32-7.43) VBG pCO2 55 mmHg VBG pO2 45 mmHg VBG HCO3 16 L (22-26) mmol/L VBG O2 Saturation Not Reportable % VBG Base Excess -13.1 mmol/L Sodium 142 (135-145) mmol/L Potassium 5.1 (3.3-5.1) mmol/L Chloride 114 H (96-108) mmol/L Carbon Dioxide 14 L (22-29) mmol/L Anion Gap 19 (12-20) BUN 77 H (9-16) mg/dL Creatinine 6.83 H* (0.5-1.4) mg/dL Estim Creat Clear Calc 12.4 Estimated GFR 8 Random Glucose 249 H (60-115) mg/dL Lactic Acid (0.5-2.0) mmol/L Calcium 7.6 L (8.4-10.2) mg/dL Magnesium (1.6-2.6) mg/dL Total Bilirubin (0.0-1.0) mg/dL AST (5-37) U/L ALT (0-40) U/L Alkaline Phosphatase (39-117) U/L Troponin I High Sens (<3.5-35.0) ng/L B-Natriuretic Peptide (<100) pg/mL Total Protein (6.5-8.0) g/dL Albumin (3.5-5.0) g/dL Urine Color Yellow Urine Appearance Cloudy Urine pH 5.5 (5.0-9.0) Ur Specific [place] 1.015 (1.005-1.025) Urine Protein >=1000 (4+) H (Neg-Trace) mg/dL Urine Glucose (UA) 250 H (Negative) mg/dL Urine Ketones Negative (Negative) mg/dL Urine Blood Large (3+) H (Negative) Urine Nitrite Negative (Negative) Ur Leukocyte Esterase Negative (Negative) Urine RBC >20 H (0-2) /HPF Urine WBC 0-5 (0-5) /HPF Ur Squamous Epith Cells 0-2 (0-2) /HPF Urine Bacteria Trace (None Seen) Hyaline Casts 0-2 (0-2) /LPF Granular Casts Present Influenza Type A (PCR) (Negative) Influenza Type B (PCR) (Negative) RSV RNA Qual (PCR) (Negative) SARS-CoV-2 RNA (RT-PCR) (Negative) Independent Interpretation I performed an independent interpretation of an: EKG (See course narrative) and Plain X-Ray (See course narrative) Radiology Impression Discussion of test interpretation with radiology: I have reviewed the radiologist's reading. Radiologist Impression: 1 view chest x-ray Comparison: None Findings: Patchy bilateral airspace disease greater on the right than left concerning for multifocal pneumonia. Normal heart size. Likely small bilateral effusions. No pneumothorax. No acute osseous findings. IMPRESSION: 1. Patchy bilateral consolidation greater on the right than the left concerning for multifocal pneumonia. Independent Historian Clinical information obtained from an independent historian. History obtained from or confirmed by: EMS External Record Review External record reviewed: Outpatient record Chronic Conditions Patient?s care impacted by: Other ( see narrative above) Critical Care Time Critical Care Time Critical Care Time: Yes Total Critical Care Time: 60 Attestation: I personally attest to this critical care time spent taking care of the patient exclusive of all other billable procedures was approximately 60 minutes including initial evaluation of patient, ordering tests, x-ray interpretation, EKG interpretation, medical consultation, documentation, re-evaluation. Discharge Plan Discharge Clinical Impression: Acute kidney injury, Pneumonia due to respiratory syncytial virus, Metabolic acidosis Patient Disposition: [facility] Transfer Details: Dr. Garcia Prescriptions: No Action magnesium oxide 400 mg (241.3 mg magnesium) tablet 400 mg PO QAM Qty: 30 11RF sodium bicarbonate 650 mg tablet 650 mg PO BID Qty: 180 1RF cholecalciferol (vitamin D3) 1,250 mcg (50,000 unit) capsule 1,250 mcg PO .Q monthly Qty: 13 1RF Lokelma 5 gram powder in packet 5 g PO DAILY Qty: 11 2RF temazepam 15 mg capsule 15 mg PO BEDTIME PRN insulin degludec [Tresiba FlexTouch U-100] 100 unit/mL (3 mL) insulin pen subcut allopurinol 100 mg tablet 100 mg PO DAILY gabapentin 300 mg capsule PO DAILY amlodipine 2.5 mg tablet 2.5 mg PO DAILY calcitriol 0.25 mcg capsule 0.25 mcg PO 3XW 90 Days Qty: 40 3RF atorvastatin 40 mg tablet PO DAILY Interventions: Acute Care Transfer Worksheet (ED) Last Done: 10/18/24 08:33 Discharge Date/Time: 10/18/24 08:35 Print Language: [place] Sepsis Bolus Exclusion Sepsis Bolus Exclusion CHF/Renal Failure This patient met severe sepsis criteria due to the following condition(s):: H ypotension In my clinical judgement the administration of 30 ml/kg of crystalloid would be detrimental to this patient due to the patient's following conditions:: Stage III or IV Chronic Kidney Disease (GFR<30) Replace the 30 mls/kg with (Zero amount not acceptable and all fluids for severe sepsis must be given at GREATER than 125 mls/hr) Crystalloids amount given in mls: (rate must be at least 150cc/hr): 1,000 Colloids amount given in mls:: 0
[2024-10-17 21:01] VITALS: BP 122/72; PULSE 121; RESP 24; TEMP 38.3; O2SAT 93
[2024-10-17] MEDS: cefTRIAXone sodium 1 GM VIAL IVPUSH (21:12)
[2024-10-17] MEDS: Acetaminophen 325 MG TABLET 975 MG PO (21:12)
[2024-10-17] MEDS: 0.9 % Sodium Chloride 2,259 ML 2259 ML IV (21:13)
[2024-10-17 21:14] LABS: MANUAL DIFF FLAG NO
[2024-10-17 21:17] LABS: Basophils Percent Auto 0.2 % (0-2); Eosinophils Percent Auto 0.1 % (0-4); Hematocrit 27.2 % (42.0-52.0); Hemoglobin 8.9 g/dl (14.0-18.0); Imm Gran Abs Auto 0.38 X10*3/uL (0.00-0.03); Imm Gran Pct Auto 3.7 % (0.0-0.4); Lymphocytes Absolute Auto 0.7 X10*3/uL (1.2-4.9); Lymphocytes Percent Auto 6.9 % (20-40); Mean Corpuscular HGB Conc 32.7 g/dl (31.0-36.0); Mean Corpuscular Hemoglobin 30.6 pg (27.0-33.0); Mean Corpuscular Volume 93.5 fL (80.0-98.0); Mean Platelet Volume 10.8 fL (9.4-12.4); Monocytes Absolute Auto 0.8 X10*3/uL (0.1-1.2); Monocytes Percent Auto 7.7 % (2-11); NRBC Pct Auto 0.5 /100WBC (0.0-0.2); Neutrophils Absolute Auto 8.3 x10*3/uL (2.0-8.3); Neutrophils Percent Auto 81.4 % (45-73); Platelet Count 203 X10*3/uL (160-400); Red Blood Count 2.91 X10*6/uL (4.60-5.80); White Blood Count 10.2 X10*3/uL (4.8-10.8)
[2024-10-17 21:21] LABS: Venous Blood Gas Refer to POC result
[2024-10-17 21:22] LABS: VBG Base Excess -10.6 mmol/L; VBG HCO3 16 mmol/L (22-26); VBG pCO2 40 mmHg; VBG pO2 69 mmHg
[2024-10-17 21:22] LABS: INTERNATIONAL NORM RATIO 1.1 (0.9-1.1); Prothrombin Time 12.6 SEC (10.9-12.4)
[2024-10-17] MEDS: methylPREDNISolone Sod Succ 125 MG/2 ML VIAL IVPUSH (21:25)
[2024-10-17 21:34] LABS: Lactic Acid 1.8 mmol/L (0.5-2.0)
[2024-10-17 21:41] LABS: Alanine Aminotransferase 27 U/L (0-40); Albumin Level 3.2 g/dL (3.5-5.0); Alkaline Phosphatase 195 U/L (39-117); Anion Gap 17 (12-20); Aspartate Amino Transferase 52 U/L (5-37); Bilirubin Total 0.5 mg/dL (0.0-1.0); Blood Urea Nitrogen 72 mg/dL (9-16); Calcium 7.9 mg/dL (8.4-10.2); Carbon Dioxide 15 mmol/L (22-29); Chloride 115 mmol/L (96-108); Creatinine Clr Calc Pharmacy 13.1; Estimated Glomerular Filt Rate 9; Glucose Random 147 mg/dL (60-115); Magnesium 1.2 mg/dL (1.6-2.6); Potassium 4.5 mmol/L (3.3-5.1); Sodium 142 mmol/L (135-145); Total Protein 7.6 g/dL (6.5-8.0)
[2024-10-17 21:41] LABS: B Type Natriuretic Peptide 668 pg/mL (<100)
[2024-10-17 21:53] LABS: Influenza A PCR NEGATIVE (Negative); Influenza B PCR NEGATIVE (Negative); Resp Syncy Virus RNA Qual PCR POSITIVE (Negative); SARS COV2 PCR INHOUSE NEGATIVE (Negative)
[2024-10-17] MEDS: Albuterol Sulfate 2.5 MG, Albuterol Sulfate (0.083%) 2.5 MG 5 MG INHALE (21:57)
[2024-10-17 22:00] VITALS: PULSE 104; RESP 20; O2SAT 94
[2024-10-17 22:12] VITALS: BP 134/72; PULSE 107; RESP 18; TEMP 38.3; O2SAT 96
[2024-10-17] MEDS: 0.9 % Sodium Chloride 500 ML 999 ML IV (22:17)
[2024-10-17] MEDS: Magnesium Sulfate/H2O 2 GM/50 ML PIGGYBACK IV (22:19)
[2024-10-17] MEDS: Sodium Bicarbonate 8.4% 50 MEQ in Dextrose 5 % 950 ML 80 MEQ IV (22:20)
[2024-10-17 22:42] VITALS: BP 136/66; PULSE 115
[2024-10-17 22:48] VITALS: BP 120/64; PULSE 115
[2024-10-18] VITALS (7 sets, daily range): BP systolic 110–160; BP diastolic 58–72; PULSE 82–102; RESP 12–16; TEMP 36.4–36.7; O2SAT 93–99
[2024-10-18 00:59] LABS: Venous Blood Gas Refer to POC result
[2024-10-18 01:06] LABS: VBG Base Excess -12.2 mmol/L; VBG HCO3 16 mmol/L (22-26); VBG pCO2 49 mmHg; VBG pH 7.12 (7.32-7.43); VBG pO2 54 mmHg
[2024-10-18 01:15] LABS: Alanine Aminotransferase 23 U/L (0-40); Albumin Level 2.9 g/dL (3.5-5.0); Alkaline Phosphatase 152 U/L (39-117); Anion Gap 17 (12-20); Aspartate Amino Transferase 48 U/L (5-37); Bilirubin Total 0.3 mg/dL (0.0-1.0); Blood Urea Nitrogen 75 mg/dL (9-16); Calcium 7.2 mg/dL (8.4-10.2); Carbon Dioxide 15 mmol/L (22-29); Chloride 115 mmol/L (96-108); Estimated Glomerular Filt Rate 9; Glucose Random 174 mg/dL (60-115); Magnesium 1.7 mg/dL (1.6-2.6); Potassium 4.3 mmol/L (3.3-5.1); Sodium 143 mmol/L (135-145); Total Protein 6.7 g/dL (6.5-8.0)
--- NOTE | 2024-10-18 01:32 | MHC.EDTECH ---
This pct assumed care of Patient at 0100 ,vitals taken ,Patient was reposition and boosted up in bed .Call bridges within Pt reach .
[2024-10-18 02:03] LABS: Troponin-I High Sensitivity 375.1 ng/L (<3.5-35.0)
[2024-10-18 02:56] LABS: Appearance Urine Cloudy; Color Urine Yellow; Glucose Urine UA 250 mg/dL (Negative); Leukocyte Esterase Urine Negative (Negative); Nitrite Urine Negative (Negative); PH 5.5 (5.0-9.0); Specific Gravity - Urine 1.015 (1.005-1.025); UMIC TRIGGER UACC YES; Urine Blood Large (3+) (Negative); Urine Ketones Negative (Negative); Urine Protein >=1000 (4+) mg/dL (Neg-Trace)
[2024-10-18 03:45] LABS: Bacteria Urine Trace (None Seen); Granular Casts Urine Present; Hyaline Casts Urine 0-2 /LPF (0-2); RBC Urine >20 /HPF (0-2); Squamous Epithelial Cell Urine 0-2 /HPF (0-2); WBC Urine 0-5 /HPF (0-5)
[2024-10-18 04:20] LABS: Venous Blood Gas Refer to POC result
--- NOTE | 2024-10-18 04:23 | MHC.EDTECH ---
Repeated labs drawn and sent to lab ,0400 rounding done ,and vitals taken .
[2024-10-18 04:26] LABS: VBG Base Excess -13.1 mmol/L; VBG HCO3 16 mmol/L (22-26); VBG pCO2 55 mmHg; VBG pH 7.07 (7.32-7.43); VBG pO2 45 mmHg
[2024-10-18 04:37] LABS: Anion Gap 19 (12-20); Blood Urea Nitrogen 77 mg/dL (9-16); Calcium 7.6 mg/dL (8.4-10.2); Carbon Dioxide 14 mmol/L (22-29); Chloride 114 mmol/L (96-108); Creatinine Clr Calc Pharmacy 12.4; Estimated Glomerular Filt Rate 8; Glucose Random 249 mg/dL (60-115); Potassium 5.1 mmol/L (3.3-5.1); Sodium 142 mmol/L (135-145)
--- NOTE | 2024-10-18 04:45 | PC.NURSE ---
RT at bedside setting up bipap. Bipap in place with settings 14/6 @ 32%. Pt tolerating well.
[2024-10-18] MEDS: Azithromycin 500 MG in 0.9 % Sodium Chloride 250 ML 125 MG IV (06:24)
[2024-10-18] MEDS: Sodium Bicarbonate 8.4% 150 MEQ in Dextrose 5 % 850 ML 80 MEQ IV (08:10)
--- NOTE | 2024-10-18 08:19 | PC.NURSE ---
report given to [facility]
--- NOTE | 2024-10-18 08:32 | PC.NURSE ---
report given to ICU nurse Carmen at [facility]
--- NOTE | 2024-10-24 22:03 | PC.NURSE ---
Late Entry: On 10/17/2024 sepsis alert called for this pt. Regarding fluid administration, the provider entered multiple orders that do not reflect the correct time of infusion. The correct amount of fluids administered are: A total of 500cc with a fluid infusion time ending at 2215.
== END 2024-10-18 08:35 | disposition short-term general hospital (02) ==
PROVIDERS: Nurse Practitioner Family; Emergency Provider Emergency Medicine
DX: J12.1 Respiratory syncytial virus pneumonia (principal); R06.02 Shortness of breath; E87.20 Acidosis, unspecified; R00.0 Tachycardia, unspecified; R05.9 Cough, unspecified; R44.3 Hallucinations, unspecified; E11.9 Type 2 diabetes mellitus without complications; Z79.4 Long term (current) use of insulin; Z03.818 Encounter for observation for suspected exposure to other biological agents ruled out; Z79.899 Other long term (current) drug therapy
CPT/HCPCS: 0241U; 36415; 71045; 80048; 80053; 81001; 82803; 83605; 83735; 83880; 84484; 85025; 85610; 87040; 93005; 94640; 96361; 96365; 96366; 96375; 99285; J0456; J0696; J2919; J3475

== ENCOUNTER → 2024-10-17 21:00 | Outpatient (BNV) | payer MEDICARE, SELFPAY | PROVIDERS: Emergency Provider Emergency Medicine; Visit Provider Radiology Diagnostic Radiology | DX: R05.9 Cough, unspecified (principal) | CPT/HCPCS: 71045 ==

== ENCOUNTER 2024-10-26 09:22 | Outpatient (REF) | payer MEDICARE, SELFPAY ==
--- NOTE | ~2024-10-26 | XR_ITS ---
EXAMINATION: XR CHEST 2 VIEWS HISTORY: J18.9 - Pneumonia, unspecified organism COMPARISON: Comparison is made with the prior examination dated 10/17/2024. FINDINGS: PA and lateral views of the chest are submitted. There are diffuse airspace opacities throughout both lungs. When compared to the prior study, there is greater airspace opacity in the left upper lung zone and mild improvement on the right. Findings may represent pulmonary edema. There are small bilateral pleural effusions. There is no pneumothorax. The heart is enlarged. The bones are intact. XR/XR chest 2V IMPRESSION: Cardiomegaly. Findings suggestive of pulmonary edema and small bilateral pleural effusions. Electronically signed by: Aurelio Goodman MD 10/26/2024 03:19 PM EDT
--- OUTSIDE RECORDS SUMMARY | 2024-10-26 10:25 | XMS_ITS ---
Author Name [facility] Organization Unknown Results Test Name/Text Value Interpretation Date Range Source Lymphocytes/leuk NFr Bld Auto 7% Normal [id number] [facility] Spherocytes Bld Ql Smear Normal 087099377232 [facility] Polychromasia Bld Ql Smear Normal 897833619252 [facility] Neutrophils num Bld Auto 10.6Thou/uL Above high normal 412630952506 2 - 7.5 [facility] Segmented Neutrophil 86% Normal [id number] [facility] Monocytes/leuk NFr Bld Auto 3% Normal 935977858948 [facility] Monocyte, Absolute 0.4Thou/uL Normal 042213373758 0.2 - 1 .5 [facility] Macrocytes Bld Ql Smear Normal 033657298818 [facility] RBC Chrm Bld Smear Normal 050504598240 [facility] Neuts Band num Bld Manual 4% Normal [id number] [facility] Lymphocytes num Bld Auto 0.8Thou/uL Below low normal [id number] 1.5 - 4.5 [facility] Chloride SerPl-sCnc 107mmol/L Normal [id number] 98 - 10 7 [facility] Glucose SerPl-mCnc 145mg/dL Above high normal 644412939642 74 - 106 [facility] GFR/BSA.pred SerPlBld ICZ-NXL-VnOAms 9 Below low normal 321307330841 59 - [facility] Creat SerPl-mCnc 6.1mg/dL Above high normal [id number] 0. 7 - 1.3 [facility] BUN/Creat SerPl 18Ratio Normal [id number] 10 - 25 H [facility] Anion Gap Bld-sCnc 16 Above high normal 317586167770 5 - 15 [facility] Calcium SerPl-mCnc 8.2mg/dL Below low normal [id number] 8 .7 - 10.5 [facility] CO2 SerPl-sCnc 23mmol/L Normal [id number] 20 - 31 HH CCT BUN SerPl-mCnc 107mg/dL Above high normal 469485695926 9 - 23 [facility] Sodium SerPl-sCnc 146mmol/L Above high normal 969286752586 1 36 - 145 [facility] Potassium SerPl-sCnc 3.8mmol/L Normal 943598632742 3.4 - 4.5 [facility] PMV Bld Auto 11fL Normal [id number] 7.5 - 12.[address] Hct VFr Bld Auto 26.7% Below low normal [id number] 39 - 54 [facility] MCH RBC Qn Auto 29.3pg Normal [id number] 27 - 31 H [facility] nRBC num Bld Auto 0.06Thou/uL Above high normal [id number] 0 - 0.02 [facility] nRBC/100 WBC Bld Auto-Rto 0.5/100WBC Above high normal 813811677207 0 - 0.1 [facility] RDW RBC Auto-Rto 14.6% Above high normal [id number] 11 .5 - 14.5 [facility] Platelet num Bld Auto 243Thou/uL Normal [id number] 150 - 450 [facility] MCHC RBC Auto-mCnc 31.5g/dL Normal [id number] 30 - 36 [facility] MCV RBC Auto 93fL Normal [id number] 80 - 100 [facility] T WBC num Bld Auto 11.8Thou/uL Above high normal 718364308129 4 - 11 [facility] RBC num Bld Auto 2.87Mil/uL Below low normal [id number] 4. 5 - 6.2 [facility] Hgb Bld-mCnc 8.4g/dL Below low normal [id number] 13 - 17 .7 [facility] POC Glucose 150mg/dL Above high normal 533564019154 65 - 99 [facility] POC Glucose 267mg/dL Above high normal 548443044579 65 - 99 [facility] POC Glucose 305mg/dL Above high normal 972323594595 65 - 99 [facility] POC Glucose 269mg/dL Above high normal 559796583397 65 - 99 [facility] POC Glucose 186mg/dL Above high normal 497837821737 65 - 99 [facility] POC Glucose 179mg/dL Above high normal [id number] 65 - 99 [facility] POC Glucose 142mg/dL Above high normal 673096281372 65 - [facility] POC Glucose 168mg/dL Above high normal 622794847929 - [facility]CT POC Glucose 144mg/dL Above high normal 485992014611 65 - 99 [facility] Globulin Ser Calc-mCnc 3.3g/dL Normal [id number] 1.5 - 3.9 [facility]CT ALT SerPl-cCnc 23U/L Normal [id number] 10 - 49 HH CCT AST SerPl-cCnc 37U/L Above high normal [id number] - 34 [facility] GFR/BSA.pred SerPlBld ULZ-JIB-SpOFqz 8 Below low normal 664750549914 59 - [facility] Albumin SerPl-mCnc 3.5g/dL Normal [id number] 3.4 - 4. 8 [facility] Albumin/Glob SerPl 1Ratio Below low normal [id number] 1 .5 - 2.5 [facility] Creat SerPl-mCnc 6.6mg/dL Above high normal [id number] 0. 7 - 1.3 [facility]CT Bilirub SerPl-mCnc 0.2mg/dL Below low normal [id number] 0 .3 - 1.2 [facility] Anion Gap Bld-sCnc 13 Normal [id number] 5 - 15 [facility] Sodium SerPl-sCnc 143mmol/L Normal [id number] 136 - 145 [facility]CT Potassium SerPl-sCnc 4mmol/L Normal [id number] 3.4 - 4.5 [facility] Chloride SerPl-sCnc 108mmol/L Above high normal [id number] 98 - 107 [facility] Glucose SerPl-mCnc 141mg/dL Above high normal [id number] 74 - 106 [facility]CT Prot SerPl-mCnc 6.8g/dL Normal [id number] 5.7 - 8.2 H [facility]CT BUN/Creat SerPl 15Ratio Normal [id number] 10 - 25 H [facility]CT Calcium SerPl-mCnc 7.4mg/dL Below low normal [id number] 8 .7 - 10.5 [facility]CT CO2 SerPl-sCnc 22mmol/L Normal [id number] 20 - 31 HH CCT BUN SerPl-mCnc 100mg/dL Above high normal [id number] 9 - 23 [facility]CT ALP SerPl-cCnc 150U/L Above high normal [id number] 45 - 128 [facility]CT Phosphate SerPl-mCnc 6.1mg/dL Above high normal [id number] 3 2.4 - 5.1 H[facility]CT Magnesium SerPl-mCnc 2.1mg/dL Normal [id number] 1.6 - 2.6 [facility] Imm Granulocytes/leuk NFr Bld Auto 2.1% Normal [id number] [facility] Lymphocytes/leuk NFr Bld Auto 6.6% Normal 553729293438 [facility] PMV Bld Auto 10.8fL Normal [id number] 7.5 - 12.[address] Monocytes num Bld Auto 1Thou/uL Normal [id number] 0.2 - 1.5 [facility] Hct VFr Bld Auto 24.5% Below low normal 781339838025 39 - 54 [facility] Neutrophils num Bld Auto 10.43Thou/uL Above high normal 640837986748 2 - 7.5 [facility] Neutrophils/leuk NFr Bld Auto 83.1% Normal [id number] [facility]CT Basophils/leuk NFr Bld Auto 0.2% Normal 315028191339 [facility] Basophils num Bld Auto 0.02Thou/uL Normal [id number] 0 - 0.2 [facility] Monocytes/leuk NFr Bld Auto 8% Normal [id number] H[facility]CT Eosinophil num Bld Auto 0Thou/uL Normal [id number] 0 - 0.7 [facility]CT MCH RBC Qn Auto 30.3pg Normal [id number] 27 - 31 H [facility] nRBC num Bld Auto 0.03Thou/uL Above high normal [id number] 0 - 0.02 [facility]CT Eosinophil/leuk NFr Bld Auto 0% Normal [id number] H[facility] nRBC/100 WBC Bld Auto-Rto 0.2/100WBC Above high normal 587169122228 0 - 0.1 [facility] Imm Granulocytes num Bld Auto 0.26Thou/uL Above high normal [id number] 0 - 0.1 [facility] RDW RBC Auto-Rto 14.8% Above high normal 884095113093 11 .5 - 14.5 [facility] Platelet num Bld Auto 210Thou/uL Normal [id number] 150 - 450 [facility]CT MCHC RBC Auto-mCnc 32.7g/dL Normal [id number] 30 - 36 [facility]CT MCV RBC Auto 93fL Normal [id number] 80 - 100 [facility] T WBC num Bld Auto 12.5Thou/uL Above high normal [id number] 4 - 11 [facility]CT RBC num Bld Auto 2.64Mil/uL Below low normal [id number] 4. 5 - 6.2 H[facility]CT Hgb Bld-mCnc 8g/dL Below low normal [id number] 13 - 17 .7 H[facility]CT Lymphocytes num Bld Auto 0.83Thou/uL Below low normal [id number] 1.5 - 4.5 [facility]CT POC Glucose 146mg/dL Above high normal [id number] 65 - 99 [facility] POC Glucose 148mg/dL Above high normal 956298402259 65 - 99 [facility]CT POC Glucose 200mg/dL Above high normal [id number] 65 - 99 [facility]CT POC Glucose 209mg/dL Above high normal [id number] 65 - 99 CCT Comment, Blood Gas VENOUS Normal [id number] [facility] SaO2 % BldA 79% Below low normal [id number] 95 - 100 [facility] Sample Type, POC Normal [id number] CCT pCO2, Arterial 36mmHG Normal [id number] 35 - 45 HH CCT Liter Flow 3 Normal [id number] CCT pH, Arterial 7.36 Normal [id number] 7.35 - 7.45 HH CCT HCO3 20mmol/L Below low normal [id number] 22 - 26 [facility] Base Deficit (-) 4.5mmol/L Normal [id number] CCT pO2, Arterial 48mmHG Critically low [id number] 80 - 100 [facility] POC Glucose 215mg/dL Above high normal [id number] 65 - 99 [facility] S pneum Ag Ur Ql Normal [id number] - HHCCT L pneumo Ag Spec Ql Normal [id number] - HHCCT SaO2 % BldA 71% Below low normal [id number] 95 - 100 [facility] Sample Type, POC Normal [id number] H[facility]CT pCO2, Arterial 37mmHG Normal [id number] 35 - 45 HH CCT Liter Flow 4 Normal [id number] H[facility]CT pH, Arterial 7.31 Below low normal [id number] 7.35 - 7.45 H[facility]CT HCO3 19mmol/L Below low normal [id number] 22 - 26 [facility] Base Deficit (-) 7mmol/L Normal [id number] HHCCT pO2, Arterial 46mmHG Critically low [id number] 80 - 100 [facility]CT POC Glucose 205mg/dL Above high normal [id number] 65 - 99 H[facility]CT Phosphate SerPl-mCnc 7.1mg/dL Above high normal [id number] 5 2.4 - 5.1 H[facility]CT Globulin Ser Calc-mCnc 3.3g/dL Normal [id number] 1.5 - 3.9 HHCCT ALT SerPl-cCnc 22U/L Normal [id number] 10 - 49 HH CCT AST SerPl-cCnc 35U/L Above high normal [id number] - 34 H[facility]CT GFR/BSA.pred SerPlBld MUP-ITF-TuRMwi 8 Below low normal [id number] 59 - HHCCT Albumin SerPl-mCnc 3.4g/dL Normal [id number] 3.4 - 4. 8 H[facility]CT Albumin/Glob SerPl 1Ratio Below low normal [id number] 1 .5 - 2.5 H[facility]CT Creat SerPl-mCnc 6.8mg/dL Above high normal [id number] 0. 7 - 1.3 HHCCT Bilirub SerPl-mCnc 0.2mg/dL Below low normal [id number] 0 .3 - 1.2 H[facility]CT Anion Gap Bld-sCnc 14 Normal [id number] 5 - 15 HHCCT Sodium SerPl-sCnc 141mmol/L Normal [id number] 136 - 145 H[facility]CT Potassium SerPl-sCnc 4.2mmol/L Normal [id number] 3.4 - 4.5 H[facility]CT Chloride SerPl-sCnc 109mmol/L Above high normal [id number] 98 - 107 H[facility]CT Glucose SerPl-mCnc 193mg/dL Above high normal [id number] 74 - 106 H[facility]CT Prot SerPl-mCnc 6.7g/dL Normal [id number] 5.7 - 8.2 H HCCT BUN/Creat SerPl 13Ratio Normal [id number] 10 - 25 H HCCT Calcium SerPl-mCnc 7.6mg/dL Below low normal [id number] 8 .7 - 10.5 HHCCT CO2 SerPl-sCnc 18mmol/L Below low normal [id number] 20 - 31 HHCCT BUN SerPl-mCnc 91mg/dL Above high normal [id number] 9 - 23 HHCCT ALP SerPl-cCnc 142U/L Above high normal [id number] 45 - 128 H[facility]CT Magnesium SerPl-mCnc 1.9mg/dL Normal [id number] 1.6 - 2.6 HHCCT Imm Granulocytes/leuk NFr Bld Auto 1% Normal [id number] HHCCT Lymphocytes/leuk NFr Bld Auto 6.1% Normal [id number] HHCCT PMV Bld Auto 10.7fL Normal [id number] 7.5 - 12.[address] Monocytes num Bld Auto 0.63Thou/uL Normal [id number] 0.2 - 1.5 HHCCT Hct VFr Bld Auto 24.1% Below low normal 248809152425 39 - 54 H[facility]CT Neutrophils num Bld Auto 9.24Thou/uL Above high normal [id number] 2 - 7.5 H[facility]CT Neutrophils/leuk NFr Bld Auto 86.8% Normal [id number] HHCCT Basophils/leuk NFr Bld Auto 0.2% Normal [id number] H[facility]CT Basophils num Bld Auto 0.02Thou/uL Normal [id number] 0 - 0.2 H[facility]CT Monocytes/leuk NFr Bld Auto 5.9% Normal [id number] HHCCT Eosinophil num Bld Auto 0Thou/uL Normal [id number] 0 - 0.7 H[facility]CT MCH RBC Qn Auto 29.8pg Normal [id number] 27 - 31 H HCCT nRBC num Bld Auto 0.03Thou/uL Above high normal [id number] 0 - 0.02 H[facility]CT Eosinophil/leuk NFr Bld Auto 0% Normal [id number] H[facility]CT nRBC/100 WBC Bld Auto-Rto 0.3/100WBC Above high normal [id number] 0 - 0.1 HHCCT Imm Granulocytes num Bld Auto 0.11Thou/uL Above high normal 944040135607 0 - 0.1 HHCCT RDW RBC Auto-Rto 14.8% Above high normal [id number] 11 .5 - 14.5 H[facility]CT Platelet num Bld Auto 192Thou/uL Normal [id number] 150 - 450 H[facility]CT MCHC RBC Auto-mCnc 31.5g/dL Normal [id number] 30 - 36 HHCCT MCV RBC Auto 95fL Normal [id number] 80 - 100 HH[facility] T WBC num Bld Auto 10.7Thou/uL Normal [id number] 4 - 11 HHCCT RBC num Bld Auto 2.55Mil/uL Below low normal [id number] 4. 5 - 6.2 HHCCT Hgb Bld-mCnc 7.6g/dL Below low normal 785068265097 13 - 17 .7 HHCCT Lymphocytes num Bld Auto 0.65Thou/uL Below low normal [id number] 1.5 - 4.5 HHCCT POC Glucose 179mg/dL Above high normal [id number] 65 - 99 HHCCT POC Glucose 169mg/dL Above high normal [id number] 65 - 99 H[facility]CT COMMENT LEFT RADIAL POSITIVE COLLATERAL Normal [id number] - HHCCT Ionized Calcium, POC 4.3mg/dL Below low normal [id number] 4.6 - 5.32 HHCCT COMMENT LEFT RADIAL POSITIVE COLLATERAL Normal [id number] - CCT Potassium, POC 4.3mmol/L Normal [id number] 3.5 - 5.1 HH CCT Comment LEFT RADIAL POSITIVE COLLATERAL Normal [id number] CCT Hematocrit, POC 25% Below low normal [id number] 40 - 50 HHCCT COMMENT LEFT RADIAL POSITIVE COLLATERAL Normal [id number] - CCT Sodium, POC 138mmol/L Normal [id number] 136 - 145 CCT Comment LEFT RADIAL POSITIVE COLLATERAL Normal [id number] HHCCT Reduced Hemoglobin 4.5% Normal [id number] HHCCT Hemoglobin, POC 8.4 Normal [id number] H HCCT POC SAMPLE TYPE Normal 887775142071 H HCCT MetHgb MFr Bld 0.7% Normal [id number] CCT Oxyhemoglobin 94.8% Normal [id number] [facility] CT COHgb MFr Bld 0% Normal [id number] [facility] CT Comment REPORTED TO [place] Normal [id number] [facility] Comment, Blood Gas LEFT RADIAL POSITIVE COLLATERAL Normal [id number] CCT SaO2 % BldA 96% Normal [id number] 95 - 100 HHCCT Sample Type, POC Normal [id number] [facility] pCO2, Arterial 38mmHG Normal [id number] 35 - 45 CCT Liter Flow 2 Normal [id number] [facility] pH, Arterial 7.23 Critically low [id number] 7.35 - 7. 45 HHCCT HCO3 16mmol/L Below low normal [id number] 22 - 26 CCT Base Deficit (-) 10.8mmol/L Normal [id number] [facility] pO2, Arterial 72mmHG Below low normal 459972596897 80 - 1 00 HHCCT COMMENT LEFT RADIAL POSITIVE COLLATERAL Normal [id number] - [facility] Glucose, POC 206mg/dL Above high normal [id number] 70 - 1 08 HHCCT COMMENT LEFT RADIAL POSITIVE COLLATERAL Normal [id number] - [facility] Lactate, POC 0.6mmol/L Normal [id number] 0.4 - 0.8 [facility] T Prot/Creat Ur 2.96 Normal [id number] [facility] CT Prot Ur-mCnc 338mg/dL Normal [id number] [facility] T Creat Ur-mCnc 114mg/dL Normal [id number] [facility]HC CT WBC num/area UrnS HPF 9perhpf Above high normal [id number] 0 - 4 HHCCT Hyaline Casts num/area UrnS LPF 1perlpf Normal [id number] 0 - 4 HHCCT Squamous num/area UrnS HPF 2perhpf Normal [id number] HHCCT Bacteria UrnS Ql Micro Normal [id number] - HHCCT RBC num/area UrnS HPF 50perhpf Above high normal [id number] 0 - 4 HHCCT Yeast num/area UrnS HPF Normal [id number] - HHCCT Ketones Ur Strip-mCnc Normal [id number] - HHCCT Prot Ur Strip-mCnc Abnormal 560479216441 - HHCCT Glucose Ur Strip-mCnc Normal [id number] 0 - 99 HHCCT Nitrite Ur Ql Strip Normal [id number] - HHCCT Leukocyte esterase Ur Ql Strip Normal [id number] - HHCCT Urobilinogen Ur Strip-mCnc 0.2EU/dL Normal [id number] 0.2 - 1 HHCCT Bilirub Ur Strip-mCnc Normal [id number] - HHCCT Sp Gr Ur Strip 1.016 Normal [id number] 1.003 - 1.03 HHCCT pH Ur Strip 5 Normal [id number] 5 - 8 HHCCT Color Ur Normal [id number] [facility] Clarity Ur Normal [id number] HHCCT Hgb Ur Ql Strip Abnormal 879478960359 - H HCCT POC Glucose 212mg/dL Above high normal 555307937803 65 - 99 HHCCT Chloride SerPl-sCnc 111mmol/L Above high normal 338420308197 98 - 107 HHCCT Glucose SerPl-mCnc 234mg/dL Above high normal [id number] 74 - 106 HHCCT GFR/BSA.pred SerPlBld XJA-XKD-CkBYxa 8 Below low normal 554550108472 59 - HHCCT Creat SerPl-mCnc 7.1mg/dL Above high normal [id number] 0. 7 - 1.3 HHCCT BUN/Creat SerPl 12Ratio Normal [id number] 10 - 25 H HCCT Anion Gap Bld-sCnc 14 Normal [id number] 5 - 15 HHCCT Calcium SerPl-mCnc 7.8mg/dL Below low normal [id number] 8 .7 - 10.5 HHCCT CO2 SerPl-sCnc 18mmol/L Below low normal [id number] 20 - 31 HHCCT BUN SerPl-mCnc 86mg/dL Above high normal 729619294482 9 - 23 HHCCT Sodium SerPl-sCnc 143mmol/L Normal [id number] 136 - 145 HHCCT Potassium SerPl-sCnc 5.2mmol/L Above high normal [id number] 3.4 - 4.5 HHCCT Comment REPORTED TO RN Normal [id number] CCT Comment, Blood Gas LEFT RADIAL POSITIVE COLLATERAL Normal [id number] [facility] Blood Gas Mode BiPAP Normal [id number] CCT SaO2 % BldA 98% Normal [id number] 95 - 100 HHCCT Sample Type, POC Normal [id number] [facility] pCO2, Arterial 37mmHG Normal [id number] 35 - 45 CCT ISTAT EPAP 6 Normal [id number] CCT pH, Arterial 7.22 Critically low [id number] 7.35 - 7. 45 HHCCT ISTAT INPAP 18 Normal [id number] [facility] HCO3 15mmol/L Below low normal [id number] 22 - 26 HHCCT Base Deficit (-) 11.8mmol/L Normal [id number] CCT MECH RATE 24 Normal [id number] [facility] pO2, Arterial 148mmHG Above high normal [id number] 80 - 100 HHT ISTAT Arterial FIO2 40 Normal [id number] [facility] POC Glucose 252mg/dL Above high normal [id number] 65 - 99 HHCCT PTH-Intact SerPl-mCnc 755pg/mL Above high normal [id number] 18 - 80 HHCCT Result Normal [id number] - HHCCT Lactate SerPl-sCnc 1.2mmol/L Normal [id number] 0.5 - 1. 9 HHCCT B-OH-Butyr SerPl-sCnc 0.3mmol/L Above high normal [id number] - 0.28 HHCCT Globulin Ser Calc-mCnc 3.5g/dL Normal [id number] 1.5 - 3.9 HHCCT ALT SerPl-cCnc 23U/L Normal [id number] 10 - 49 HH CCT AST SerPl-cCnc 35U/L Above high normal [id number] - 34 HHCCT GFR/BSA.pred SerPlBld CZL-WKO-MvBLah 8 Below low normal [id number] 59 - HHCCT Albumin SerPl-mCnc 3.6g/dL Normal [id number] 3.4 - 4. 8 HHCCT Albumin/Glob SerPl 1.1Ratio Below low normal [id number] 1 .5 - 2.5 HHCCT Creat SerPl-mCnc 7mg/dL Above high normal [id number] 0. 7 - 1.3 HHCCT Bilirub SerPl-mCnc 0.2mg/dL Below low normal 593743113315 0 .3 - 1.2 HHCCT Anion Gap Bld-sCnc 16 Above high normal 892145163855 5 - 15 HHCCT Sodium SerPl-sCnc 141mmol/L Normal [id number] 136 - 145 HHCCT Potassium SerPl-sCnc 5mmol/L Above high normal [id number] 8 3.4 - 4.5 HHCCT Chloride SerPl-sCnc 108mmol/L Above high normal [id number] 98 - 107 HHCCT Glucose SerPl-mCnc 368mg/dL Above high normal [id number] 74 - 106 HHCCT Prot SerPl-mCnc 7.1g/dL Normal [id number] 5.7 - 8.2 H HCCT BUN/Creat SerPl 11Ratio Normal [id number] 10 - 25 H HCCT Calcium SerPl-mCnc 7.8mg/dL Below low normal [id number] 8 .7 - 10.5 HHCCT CO2 SerPl-sCnc 18mmol/L Below low normal [id number] 20 - 31 HHCCT BUN SerPl-mCnc 80mg/dL Above high normal [id number] 9 - 23 HHCCT ALP SerPl-cCnc 154U/L Above high normal [id number] 45 - 128 HHCCT Phosphate SerPl-mCnc 6.6mg/dL Above high normal [id number] 8 2.4 - 5.1 HHCCT Magnesium SerPl-mCnc 1.6mg/dL Normal [id number] 1.6 - 2.6 HHCCT Imm Granulocytes/leuk NFr Bld Auto 1.4% Normal [id number] HHCCT Lymphocytes/leuk NFr Bld Auto 4.2% Normal [id number] HHCCT PMV Bld Auto 11.1fL Normal [id number] 7.5 - 12.[address] Monocytes num Bld Auto 0.39Thou/uL Normal [id number] 0.2 - 1.5 HHCCT Hct VFr Bld Auto 25.6% Below low normal [id number] 39 - 54 HHCCT Neutrophils num Bld Auto 9.58Thou/uL Above high normal [id number] 2 - 7.5 HHCCT Neutrophils/leuk NFr Bld Auto 90.5% Normal [id number] HHCCT Basophils/leuk NFr Bld Auto 0.2% Normal [id number] HHCCT Basophils num Bld Auto 0.02Thou/uL Normal [id number] 0 - 0.2 HHCCT Monocytes/leuk NFr Bld Auto 3.7% Normal [id number] HHCCT Eosinophil num Bld Auto 0Thou/uL Normal [id number] 0 - 0.7 HHCCT MCH RBC Qn Auto 30pg Normal [id number] 27 - 31 H HCCT Eosinophil/leuk NFr Bld Auto 0% Normal [id number] HHCCT Imm Granulocytes num Bld Auto 0.15Thou/uL Above high normal 839102108642 0 - 0.1 HHCCT RDW RBC Auto-Rto 15% Above high normal [id number] 11 .5 - 14.5 HHCCT Platelet num Bld Auto 191Thou/uL Normal [id number] 150 - 450 HHCCT MCHC RBC Auto-mCnc 30.9g/dL Normal [id number] 30 - 36 HHCCT MCV RBC Auto 97fL Normal [id number] 80 - 100 HHCC T WBC num Bld Auto 10.6Thou/uL Normal [id number] 4 - 11 HHCCT RBC num Bld Auto 2.63Mil/uL Below low normal [id number] 4. 5 - 6.2 HHCCT Hgb Bld-mCnc 7.9g/dL Below low normal [id number] 13 - 17 .7 HHCCT Lymphocytes num Bld Auto 0.45Thou/uL Below low normal [id number] 1.5 - 4.5 HHCCT Comment REPORTED TO WEI HEBERT Normal [id number] [facility] Comment, Blood Gas LEFT RADIAL POSITIVE COLLATERAL Normal [id number] [facility] Blood Gas Mode BiPAP Normal [id number] CCT SaO2 % BldA 98% Normal [id number] 95 - 100 HHCCT Sample Type, POC Normal [id number] HHCCT pCO2, Arterial 38mmHG Normal [id number] 35 - 45 HH CCT ISTAT EPAP 5 Normal [id number] HHCCT pH, Arterial 7.18 Critically low 666998699150 7.35 - 7. 45 HHCCT ISTAT INPAP 14 Normal 127708157934 HHCCT HCO3 14mmol/L Below low normal [id number] 22 - 26 HHCCT Base Deficit (-) 13.4mmol/L Normal [id number] CCT MECH RATE 18 Normal [id number] CCT pO2, Arterial 134mmHG Above high normal 782451986426 80 - 100 HHT ISTAT Arterial FIO2 40 Normal [id number] [facility] POC Glucose 357mg/dL Above high normal 661297059976 65 - 99 [facility] Encounters Encounter Type Encounter Reason Primary Diagnosis Location Date Inpatient Acute respiratory failure with hypoxia Acute respiratory failure with hypoxia [facility] 10/18/2024 Care Team Organization Name Specialty Phone Email Start Date End Da renata [facility] 10/25/2024 [facility] 10/18/2024
--- OUTSIDE RECORDS SUMMARY | 2024-10-26 10:25 | XMS_ITS | Clinical Summary ---
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 GLUCOSE CONTROL INDEX ?<6% ? EXCELLENT ?6-7% ?VERY GOOD ?7-8% ?GOOD ?8-10% ? FAIR ?>10% ?POOR Hemoglobin (Hb) A1c testing is performed by Rita Clau-quant immunoassay. Any cause of shortened erythrocyte survival will reduce exposure of erythrocytes to glucose with a consequent decrease in Hb A1c (%). Testing performed or reported by ~[facility], ~a Service of [facility], ~[address] [place] [address]~ 03/21/2019 2:49 PM EDT us Chris Martínez MD LAB BLOOD ORDERABLES Final Resul t [facility] 3 from Last 3 Months or Most Recently Relevant to Health Maintenance Insurance [employer] MEDICARE [facility] MEDICARE Care Teams Buffing Wheel Raker Relationship Specialty Start Date End Date Joanna Angeles MD [address] [address] PCP - General Family Medicine 02/17/23
--- OUTSIDE RECORDS SUMMARY | 2024-10-26 10:26 | XMS_ITS | Data Portability ---
Author Organization [facility], Main Office Address [address] [facility] [facility] [place] [address] Care Team Providers Care Him Analyst Name Role Phone [facility] Phys. Med. & Rehab JESUS RUBIO Phys. Med. & Rehab JONNA BATRES Manager Of Loss Prevention Operations [facility] Green Chain Worker RAHUL DIAL Bariatric Physician CARLOS MARTÍNEZ Cloud Physicist SANDEE ARRIAGA Title Closer PEE JOHNSON Risk Management Consultant VIVI DE Primary Care Provider ARA HOGUE Urologist [phone] Assessment No assessment recorded. Plan of Treatment Reminders Order Date Submit Date Provider Last Modified By Organization Details Last Modified Time Details Appointments None record ed. Lab uric acid, serum or plasma 2024 025 TEE [facility], [address], [address], 16:05:42 alkali ne phosph atase, serum or plasma 2024 025 TEE [facility] (Centralized Electronic Ordering - All Locations), Patient Can Go To The Location Of Their Choice, [id number] 17:17:37 gamma- glutam yl transf erase (ggt), serum 2024 025 TEE [facility] (Centralized Electronic Ordering - All Locations), Patient Can Go To The Location Of Their Choice, 16:05:42 CMP, serum or plasma 2024 025 T[facility], [address], [address], [place], [address], 16:05:35 TSH, ultra- sensit erik, serum 2024 025 TEE [facility] (Centralized Electronic Ordering - All Locations), Patient Can Go To The Location Of Their Choice, 16:05:41 magnes ium, serum or plasma 2024 025 TEE [facility], [address], [address], [place], [address], 16:05:44 potass ium, serum or plasma 2024 025 TEE [facility] (Centralized Electronic Ordering - All Locations), Patient Can Go To The Location Of Their Choice, 16:05:43 lipid panel, serum 2024 025 [email or web address] [facility], [address], [address], [place], [address], 15:30:39 albumi n/crea tinine , mass ratio, urine 2024 025 TEE [facility] (Centralized Electronic Ordering - All Locations), Patient Can Go To The Location Of Their Choice, 16:05:37 ferrit in, serum or plasma 2024 025 TEE [facility], [address], [address], [place], [address], 16:05:44 retic count, blood 2024 025 TEE [facility], [address], [address], [place], [address], 16:05:45 CBC w/ auto diff 2024 025 TEE [facility], [address], [address], [place], [address], 16:05:34 iron + total iron-b inding capaci ty (TIBC) , serum 2024 025 TEE [facility], [address], [address], [place], [place], [address], 16:05:36 transf johnathan recept or, solubl e, quant, serum 2024 025 TEE [facility] (Centralized Electronic Ordering - All Locations), Patient Can Go To The Location Of Their Choice, 16:05:40 cobala min and folate panel, serum 2024 [facility] ([facility] Ordering - All Locations), Patient Can Go To The Location Of Their Choice, 16:05:38 vitami n D, 25-hyd apolinar, total, serum 2024 TEE [facility] (Centralized Electronic Ordering - All Locations), Patient Can Go To The Location Of Their Choice, 16:05:39 1,25-d ihydro xyvita min D, QN, serum or plasma 2024 025 TEE [facility] (Centralized Electronic Ordering - All Locations), Patient Can Go To The Location Of Their Choice, 16:05:39 CMP, serum or plasma 2024 025 T[facility] (Centralized Electronic Ordering - All Locations), Patient Can Go To The Location Of Their Choice, 08:08:28 BNP (B-typ e natriu retic peptid e), serum or plasma 01/08/ 2025 01/08/2 025 TEE [facility] (Centralized Electronic Ordering - All Locations), Patient Can Go To The Location Of Their Choice, 5 08:08:30 urinal ysis comple te, reflex cultur e 2024 025 TEE [facility] (Centralized Electronic Ordering - All Locations), Patient Can Go To The Location Of Their Choice, 08:08:29 vitami n D, 25-hyd apolinar, total, serum 2023 024 [email or web address] [facility], [address], [place], [address], 13:38:21 1,25-d ihydro xyvita min D, QN, serum or plasma 2023 024 TEE [facility] (Centralized Electronic Ordering - All Locations), Patient Can Go To The Location Of Their Choice, 12:14:26 gamma- glutam yl transf erase (ggt), serum 2023 024 TEE [facility] (Centralized Electronic Ordering - All Locations), Patient Can Go To The Location Of Their Choice, 12:06:24 alkali ne phosph atase isoenz ymes, serum or plasma 2023 024 TEE [facility] (Centralized Electronic Ordering - All Locations), Patient Can Go To The Location Of Their Choice, 5 14:06:25 Referral wound care referr al 2023 024 [email or web address] [facility], [address] [place] [address] Alisa White, [place], [address], 11:10:30 podiat rist referr al 2023 024 [email or web address] Not available 13:38:05 Procedures None record ed. Surgeries None record ed. Imaging None record ed. Medication Orders amlodi pine 10 mg tablet 2024 025 [id number], [phone] [place], [address], 17:21:09 furose mide 20 mg tablet 2024 025 [id number], [phone] [place], [address], 15:27:40 Bactri m DS 800 mg-160 mg tablet 2023 025 [id number], [phone] [place], [address], 16:10:51 amlodi pine 5 mg tablet 2023 024 [id number] [phone] [place], [address], 17:21:15 Patient TargetsNo targets recorded. Patient Instructions Encounter Date Encounter Id Patient Instructions Last Modified By Organization Details Last Modified Time 04/11/2024 [id number] insomnia: care instructions [email or web address] Not available 04/11/2024 12:20:30 Urinary Tract Infections (UTI) in Men: Care Instructions [email or web address] Not available 04/11/2024 12:06:19 08/03/2024 [id number] leg and ankle edema: care instructions [email or web address] Not available 08/03/2024 15:12:18 08/22/2024 [id number] gout: care instructions [email or web address] Not available 08/22/2024 17:17:19 advance care planning: care instructions [email or web address] Not available 08/22/2024 17:17:17 insomnia: care instructions [email or web address] Not available 08/22/2024 17:17:18 hyperkalemia: care instructions [email or web address] Not available 08/22/2024 17:17:18 preventing falls: care instructions ckokar Not available 08/22/2024 17:17:18 well visit, over 65: care instructions [email or web address] Not available 08/22/2024 17:17:18 medicare preventive services guide (male 74 rs and under) [email or web address] Not available 08/22/2024 17:17:18 medicines to avoid with kidney disease: care instructions beryl Not available 08/22/2024 17:17:19 Reason for Referral Risk Management Consultant Referral for Ulce r of foot Referring Physician: Vivi De, Family Medicine, Encounter Date: 05/17/2024 Referring Physician: Becki De, Family Medicine, Encounter Date: 05/27/2024 Results Created Date Observation Date Name Description Value Unit Range Abnormal Flag Note LastModifiedBy Organization Detail LastModifiedTime 03/30/20 24 03/30/2024 hemog lobin A1C, finge rstic k A1C 10.3 Not Available Not Availa ble 07/13/2024 14:41:07 08/03/19 25 08/04/2024 COMP. METAB OLIC PANEL (14) glucose 180 mg/dL 70-99 above high normal Not Available [facility] ([facility]) [address] [place], [address], 08/04/2024 08:08:28 08/03/19 25 08/04/2024 COMP. METAB OLIC PANEL (14) BUN 40 mg/dL 8-27 above high normal Not Available [facility] ([facility]) [address] [place], [address], 08/04/2024 08:08:28 08/03/19 25 08/04/2024 COMP. METAB OLIC PANEL (14) creatinine 3.46 mg/dL 0.76-1 .27 above high normal Not Available [facility] ([facility]) [address] [place], [address], 08/04/2024 08:08:28 08/03/19 25 08/04/2024 COMP. METAB OLIC PANEL (14) eGFR 18 mL/mi n/1.7 3 >59 below low normal Not Available [facility] ([facility]) [address] [place], [address], 08/04/2024 08:08:28 08/03/19 25 08/04/2024 COMP. METAB OLIC PANEL (14) BUN/creatini ne ratio 12 10-24 normal Not Available [facility] ([facility]) [address] [place], [address], 08/04/2024 08:08:28 08/03/19 25 08/04/2024 COMP. METAB OLIC PANEL (14) sodium 145 mmol/ L 134-14 4 above high normal Not Available [facility] ([facility]) [address] [place], [address], 08/04/2024 08:08:28 08/03/19 25 08/04/2024 COMP. METAB OLIC PANEL (14) potassium 5.4 mmol/ L 3.5-5. 2 above high normal Not Available [facility] ([facility]) [address] [place], [address], 08/04/2024 08:08:28 08/03/19 25 08/04/2024 COMP. METAB OLIC PANEL (14) chloride 111 mmol/ L 96-106 above high normal Not Available [facility] ([facility]) [address] [place], [address], 08/04/2024 08:08:28 08/03/19 25 08/04/2024 COMP. METAB OLIC PANEL (14) carbon dioxide, total 19 mmol/ L 20-29 below low normal Not Available [facility] ([facility]) [address] [place], [address], 08/04/2024 08:08:28 08/03/19 25 08/04/2024 COMP. METAB OLIC PANEL (14) calcium 8.1 mg/dL 8.6-10 .2 below low normal Not Available [facility] ([facility]) [address] [place], [address], 08/04/2024 08:08:28 08/03/19 25 08/04/2024 COMP. METAB OLIC PANEL (14) protein, total 6.3 g/dL 6.0-8. 5 normal Not Available [facility] ([facility]) [address] [place], [address], 08/04/2024 08:08:28 08/03/19 25 08/04/2024 COMP. METAB OLIC PANEL (14) albumin 3.3 g/dL 3.8-4. 8 below low normal Not Available [facility] ([facility]) [address] [place], [address], 08/04/2024 08:08:28 08/03/19 25 08/04/2024 COMP. METAB OLIC PANEL (14) globulin, total 3.0 g/dL 1.5-4. 5 Not Available [facility] ([facility]) [address] [place], [address], 08/04/2024 08:08:28 08/03/19 25 08/04/2024 COMP. METAB OLIC PANEL (14) bilirubin, total <0.2 mg/dL 0.0-1. 2 Not Available [facility] ([facility]) [address] [place], [address], 08/04/2024 08:08:28 08/03/19 25 08/04/2024 COMP. METAB OLIC PANEL (14) alkaline phosphatase 182 IU/L 44-121 above high normal Not Available [facility] ([facility]) [address] [place], [address], 08/04/2024 08:08:28 08/03/19 25 08/04/2024 COMP. METAB OLIC PANEL (14) AST (SGOT) 20 IU/L 0-40 normal Not Available [facility] ([facility]) [address] [place], [address], 08/04/2024 08:08:28 08/03/19 25 08/04/2024 COMP. METAB OLIC PANEL (14) ALT (SGPT) 16 IU/L 0-44 normal Not Available [facility] ([facility]) [address] [facility], [place], [address], 08/04/2024 08:08:28 08/03/19 25 08/04/2024 UA/M W/RFL X CULTU RE, ROUTI NE specific gravity 1.018 1.005- 1.030 normal Not Available [facility] ([facility]) [address] [facility], [place], [address], 08/04/2024 08:08:29 08/03/19 25 08/04/2024 UA/M W/RFL X CULTU RE, ROUTI NE pH 6.5 5.0-7. 5 normal Not Available [facility] ([facility]) [address] [facility], [place], [address], 08/04/2024 08:08:29 08/03/19 25 08/04/2024 UA/M W/RFL X CULTU RE, ROUTI NE urine-color Yellow yellow Not Available [facility] ([facility]) [address] [facility], [place], [address], 08/04/2024 08:08:29 08/03/19 25 08/04/2024 UA/M W/RFL X CULTU RE, ROUTI NE appearance Clear clear Not Available [facility] ([facility]) [address] [place], [address], 08/04/2024 08:08:29 08/03/19 25 08/04/2024 UA/M W/RFL X CULTU RE, ROUTI NE WBC esterase Negati ve negati ve Not Available [facility] ([facility]) [address] [place], [address], 08/04/2024 08:08:29 08/03/19 25 08/04/2024 UA/M W/RFL X CULTU RE, ROUTI NE protein 4+ negati ve/tra ce abnormal Not Available [facility] ([facility]) [address] [place], [address], 08/04/2024 08:08:29 08/03/19 25 08/04/2024 UA/M W/RFL X CULTU RE, ROUTI NE glucose 2+ negati ve abnormal Not Available [facility] ([facility]) [address] [place], [address], 08/04/2024 08:08:29 08/03/19 25 08/04/2024 UA/M W/RFL X CULTU RE, ROUTI NE ketones Negati ve negati ve Not Available [facility] ([facility]) [address] [place], [address], 08/04/2024 08:08:29 08/03/19 25 08/04/2024 UA/M W/RFL X CULTU RE, ROUTI NE occult blood Trace negati ve abnormal Not Available [facility] ([facility]) [address] [place], [address], 08/04/2024 08:08:29 08/03/19 25 08/04/2024 UA/M W/RFL X CULTU RE, ROUTI NE bilirubin Negati ve negati ve Not Available [facility] ([facility]) [address] [place], [address], 08/04/2024 08:08:29 08/03/19 25 08/04/2024 UA/M W/RFL X CULTU RE, ROUTI NE urobilinogen ,semi-qn 0.2 mg/dL 0.2-1. 0 normal Not Available [facility] ([facility]) [address] [place], [address], 08/04/2024 08:08:29 08/03/19 25 08/04/2024 UA/M W/RFL X CULTU RE, ROUTI NE nitrite, urine Negati ve negati ve Not Available [facility] ([facility]) [address] [place], [address], 08/04/2024 08:08:29 08/03/19 25 08/04/2024 UA/M W/RFL X CULTU RE, ROUTI NE microscopic examination See below: Quintin lugo was indic ated and was perfo rmed. Not Available [facility] ([facility]) [address] [facility], [place], [address], 08/04/2024 08:08:29 08/03/19 25 08/04/2024 UA/M W/RFL X CULTU RE, ROUTI NE WBC 0-5 /hpf 0 - 5 Not Available [facility] ([facility]) [address] [facility], [place], [address], 08/04/2024 08:08:29 08/03/19 25 08/04/2024 UA/M W/RFL X CULTU RE, ROUTI NE RBC None seen /hpf 0 - 2 Not Available [facility] ([facility]) [address] [facility], [place], [address], 08/04/2024 08:08:29 08/03/19 25 08/04/2024 UA/M W/RFL X CULTU RE, ROUTI NE epithelial cells (non renal) None seen /hpf 0 - 10 Not Available [facility] ([facility]) [address] [facility], [place], [address], 08/04/2024 08:08:29 08/03/19 25 08/04/2024 UA/M W/RFL X CULTU RE, ROUTI NE epithelial cells (renal) DESIGN CELL ENGINEER Not Available [facility] ([facility]) [address] [facility], [place], [address], 08/04/2024 08:08:29 08/03/19 25 08/04/2024 UA/M W/RFL X CULTU RE, ROUTI NE casts None seen /lpf none seen Not Available [facility] ([facility]) [address] [facility], [place], [address], 08/04/2024 08:08:29 08/03/19 25 08/04/2024 UA/M W/RFL X CULTU RE, ROUTI NE cast type DESIGN CELL ENGINEER Not Available [facility] ([facility]) [address], [place], [address], 08/04/2024 08:08:29 08/03/19 25 08/04/2024 UA/M W/RFL X CULTU RE, ROUTI NE crystals DESIGN CELL ENGINEER Not Available [facility] ([facility]) [address], [place], [address], 08/04/2024 08:08:29 08/03/19 25 08/04/2024 UA/M W/RFL X CULTU RE, ROUTI NE crystal type DESIGN CELL ENGINEER Not Available [facility] ([facility]) [address], [place], [address], 08/04/2024 08:08:29 08/03/19 25 08/04/2024 UA/M W/RFL X CULTU RE, ROUTI NE mucus threads DESIGN CELL ENGINEER Not Available [facility] ([facility]) [address] [facility], [place], [address], 08/04/2024 08:08:29 08/03/19 25 08/04/2024 UA/M W/RFL X CULTU RE, ROUTI NE bacteria None seen none seen/f ew Not Available [facility] ([facility]) [address], [place], [address], 08/04/2024 08:08:29 08/03/19 25 08/04/2024 UA/M W/RFL X CULTU RE, ROUTI NE yeast DESIGN CELL ENGINEER Not Available [facility] ([facility]) [address], [place], [address], 08/04/2024 08:08:29 08/03/19 25 08/04/2024 UA/M W/RFL X CULTU RE, ROUTI NE trichomonas DESIGN CELL ENGINEER Not Available [facility] ([facility]) [address] [facility], [place], [address], 08/04/2024 08:08:29 08/03/19 25 08/04/2024 UA/M W/RFL X CULTU RE, ROUTI NE comment DESIGN CELL ENGINEER Not Available [facility] ([facility]) [address] [facility], [place], [address], 08/04/2024 08:08:29 08/03/19 25 08/04/2024 UA/M W/RFL X CULTU RE, ROUTI NE microscopic examination DESIGN CELL ENGINEER Not Available [facility] ([facility] [address] [facility], [place], [address], 08/04/2024 08:08:29 08/03/19 25 08/04/2024 UA/M W/RFL X CULTU RE, ROUTI NE urinalysis reflex Commen t This speci men will not refle x to a Urine Cultu re. Not Available [facility] ([facility]) [address] [facility], [place], [address], 08/04/2024 08:08:29 08/03/19 25 08/04/2024 B-TYP E NATRI URETI C PEPTI DE B-type natriuretic peptide 145.8 pg/mL 0.0-10 0.0 above high normal Sieme ns [facility] metho dolog y Not Available [facility] ([facility]) [address] [facility], [place], [address], 08/04/2024 08:08:30 09/08/19 25 09/08/2024 CBC WITH DIFFE RENTI AL/PL ATELE T WBC 7.8 x10e3 /uL 3.4-10 .8 normal Not Available [facility] ([facility]) [address] [facility], [place], [address], 09/11/2024 16:05:34 09/08/19 25 09/08/2024 CBC WITH DIFFE RENTI AL/PL ATELE T RBC 3.50 x10e6 /uL 4.14-5 .80 below low normal Not Available [facility] ([facility]) [address] [place], [address], 09/11/2024 16:05:34 09/08/19 25 09/08/2024 CBC WITH DIFFE RENTI AL/PL ATELE T hemoglobin 11.1 g/dL 13.0-1 7.7 below low normal Not Available [facility] ([facility]) [address] [place], [address], 09/11/2024 16:05:34 09/08/19 25 09/08/2024 CBC WITH DIFFE RENTI AL/PL ATELE T hematocrit 33.3 % 37.5-5 1.0 below low normal Not Available [facility] ([facility]) [address] [place], [address], 09/11/2024 16:05:34 09/08/19 25 09/08/2024 CBC WITH DIFFE RENTI AL/PL ATELE T MCV 95 fL 79-97 normal Not Available [facility] ([facility]) [address] [place], [address], 09/11/2024 16:05:34 09/08/19 25 09/08/2024 CBC WITH DIFFE RENTI AL/PL ATELE T MCH 31.7 pg 26.6-3 3.0 normal Not Available [facility] ([facility]) [address] [place], [address], 09/11/2024 16:05:34 09/08/19 25 09/08/2024 CBC WITH DIFFE RENTI AL/PL ATELE T MCHC 33.3 g/dL 31.5-3 5.7 normal Not Available [facility] ([facility]) [address] [place], [address], 09/11/2024 16:05:34 09/08/19 25 09/08/2024 CBC WITH DIFFE RENTI AL/PL ATELE T RDW 14.0 % 11.6-1 5.4 Not Available [facility] ([facility]) [address] [facility], [place], [address], 09/11/2024 16:05:34 09/08/19 25 09/08/2024 CBC WITH DIFFE RENTI AL/PL ATELE T platelets 233 x10e3 /uL 150-45 0 normal Not Available [facility] ([facility]) [address] [facility], [place], [address], 09/11/2024 16:05:34 09/08/19 25 09/08/2024 CBC WITH DIFFE RENTI AL/PL ATELE T neutrophils 68 % not estab. normal Not Available [facility] ([facility]) [address] [facility], [place], [address], 09/11/2024 16:05:34 09/08/19 25 09/08/2024 CBC WITH DIFFE RENTI AL/PL ATELE T lymphs 18 % not estab. normal Not Available [facility] ([facility]) [address] [facility], [place], [address], 09/11/2024 16:05:34 09/08/19 25 09/08/2024 CBC WITH DIFFE RENTI AL/PL ATELE T monocytes 9 % not estab. normal Not Available [facility] ([facility]) [address] [facility], [place], [address], 09/11/2024 16:05:34 09/08/19 25 09/08/2024 CBC WITH DIFFE RENTI AL/PL ATELE T eos 4 % not estab. normal Not Available [facility] ([facility]) [address] [facility], [place], [address], 09/11/2024 16:05:34 09/08/19 25 09/08/2024 CBC WITH DIFFE RENTI AL/PL ATELE T basos 0 % not estab. normal Not Available [facility] ([facility]) [address] [place], [address], 09/11/2024 16:05:34 09/08/19 25 09/08/2024 CBC WITH DIFFE RENTI AL/PL ATELE T immature cells DESIGN CELL ENGINEER Not Available [facility] ([facility]) [address] [place], [address], 09/11/2024 16:05:34 09/08/19 25 09/08/2024 CBC WITH DIFFE RENTI AL/PL ATELE T neutrophils (absolute) 5.3 x10e3 /uL 1.4-7. 0 normal Not Available [facility] ([facility]) [address] [place], [address], 09/11/2024 16:05:34 09/08/19 25 09/08/2024 CBC WITH DIFFE RENTI AL/PL ATELE T lymphs (absolute) 1.4 x10e3 /uL 0.7-3. 1 normal Not Available [facility] ([facility]) [address] [place], [address], 09/11/2024 16:05:34 09/08/19 25 09/08/2024 CBC WITH DIFFE RENTI AL/PL ATELE T monocytes(ab solute) 0.7 x10e3 /uL 0.1-0. 9 normal Not Available [facility] ([facility]) [address] [place], [address], 09/11/2024 16:05:34 09/08/19 25 09/08/2024 CBC WITH DIFFE RENTI AL/PL ATELE T eos (absolute) 0.3 x10e3 /uL 0.0-0. 4 normal Not Available [facility] ([facility]) [address] [place], [address], 09/11/2024 16:05:34 09/08/19 25 09/08/2024 CBC WITH DIFFE RENTI AL/PL ATELE T baso (absolute) 0.0 x10e3 /uL 0.0-0. 2 normal Not Available [facility] ([facility]) [address] [facility], [place], [address], 09/11/2024 16:05:34 09/08/19 25 09/08/2024 CBC WITH DIFFE RENTI AL/PL ATELE T immature granulocytes 1 % not estab. Not Available [facility] ([facility]) [address] [facility], [place], [address], 09/11/2024 16:05:34 09/08/19 25 09/08/2024 CBC WITH DIFFE RENTI AL/PL ATELE T immature grans (abs) 0.1 x10e3 /uL 0.0-0. 1 Not Available [facility] ([facility]) [address] [facility], [place], [address], 09/11/2024 16:05:34 09/08/19 25 09/08/2024 CBC WITH DIFFE RENTI AL/PL ATELE T NRBC DESIGN CELL ENGINEER Not Available [facility] ([facility]) [address] [facility], [place], [address], 09/11/2024 16:05:34 09/08/19 25 09/08/2024 CBC WITH DIFFE RENTI AL/PL ATELE T hematology comments: DESIGN CELL ENGINEER Not Available [facility] ([facility]) [address] [facility], [place], [address], 09/11/2024 16:05:34 09/08/19 25 09/08/2024 COMP. METAB OLIC PANEL (14) glucose 197 mg/dL 70-99 above high normal Not Available [facility] ([facility]) [address] [facility], [place], [address], 09/11/2024 16:05:35 09/08/19 25 09/08/2024 COMP. METAB OLIC PANEL (14) BUN 50 mg/dL 8-27 above high normal Not Available [facility] ([facility]) [address] [place], [address], 09/11/2024 16:05:35 09/08/19 25 09/08/2024 COMP. METAB OLIC PANEL (14) creatinine 3.72 mg/dL 0.76-1 .27 above high normal Not Available [facility] ([facility]) [address] [place], [address], 09/11/2024 16:05:35 09/08/19 25 09/08/2024 COMP. METAB OLIC PANEL (14) eGFR 17 mL/mi n/1.7 3 >59 below low normal Not Available [facility] ([facility]) [address] [facility], [place], [address], 09/11/2024 16:05:35 09/08/19 25 09/08/2024 COMP. METAB OLIC PANEL (14) BUN/creatini ne ratio 13 10-24 normal Not Available [facility] ([facility]) [address] [place], [address], 09/11/2024 16:05:35 09/08/19 25 09/08/2024 COMP. METAB OLIC PANEL (14) sodium 140 mmol/ L 134-14 4 normal Not Available [facility] ([facility]) [address] [place], [address], 09/11/2024 16:05:35 09/08/19 25 09/08/2024 COMP. METAB OLIC PANEL (14) potassium 5.6 mmol/ L 3.5-5. 2 above high normal Not Available [facility] ([facility]) [address] [place], [address], 09/11/2024 16:05:35 09/08/19 25 09/08/2024 COMP. METAB OLIC PANEL (14) chloride 109 mmol/ L 96-106 above high normal Not Available [facility] ([facility]) [address] [place], [address], 09/11/2024 16:05:35 09/08/19 25 09/08/2024 COMP. METAB OLIC PANEL (14) carbon dioxide, total 16 mmol/ L 20-29 below low normal Not Available [facility] ([facility]) [address] [place], [address], 09/11/2024 16:05:35 09/08/19 25 09/08/2024 COMP. METAB OLIC PANEL (14) calcium 8.6 mg/dL 8.6-10 .2 normal Not Available [facility] ([facility]) [address] [place], [address], 09/11/2024 16:05:35 09/08/19 25 09/08/2024 COMP. METAB OLIC PANEL (14) protein, total 6.9 g/dL 6.0-8. 5 normal Not Available [facility] ([facility]) [address] [place], [address], 09/11/2024 16:05:35 09/08/19 25 09/08/2024 COMP. METAB OLIC PANEL (14) albumin 3.8 g/dL 3.8-4. 8 normal Not Available [facility] ([facility]) [address] [place], [address], 09/11/2024 16:05:35 09/08/19 25 09/08/2024 COMP. METAB OLIC PANEL (14) globulin, total 3.1 g/dL 1.5-4. 5 Not Available [facility] ([facility]) [address] [place], [address], 09/11/2024 16:05:35 09/08/19 25 09/08/2024 COMP. METAB OLIC PANEL (14) bilirubin, total 0.3 mg/dL 0.0-1. 2 normal Not Available [facility] ([facility]) [address] [place], [address], 09/11/2024 16:05:35 09/08/19 25 09/08/2024 COMP. METAB OLIC PANEL (14) alkaline phosphatase 225 IU/L 44-121 above high normal Not Available [facility] ([facility]) [address] [place], [address], 09/11/2024 16:05:35 09/08/19 25 09/08/2024 COMP. METAB OLIC PANEL (14) AST (SGOT) 17 IU/L 0-40 normal Not Available [facility] ([facility]) [address] [place], [address], 09/11/2024 16:05:35 09/08/19 25 09/08/2024 COMP. METAB OLIC PANEL (14) ALT (SGPT) 18 IU/L 0-44 normal Not Available [facility] ([facility]) [address] [place], [address], 09/11/2024 16:05:35 09/08/19 25 09/09/2024 COMP. METAB OLIC PANEL (14) hemoglobin A1C 7.5 % 4.8-5. 6 above high normal Predi abete s: 5.7 - 6.4 Diabe rocky: >6.4 Glyce mary contr ol for adult s with diabe rocky: <7.0 Not Available [facility] ([facility]) [address] [place], [address], 09/11/2024 16:05:35 09/08/19 25 09/08/2024 LIPID PANEL cholesterol, total 187 mg/dL 100-19 9 normal Not Available [facility] ([facility]) [address] [place], [address], 09/11/2024 16:05:35 09/08/19 25 09/08/2024 LIPID PANEL triglyceride s 121 mg/dL 0-149 normal Not Available [facility] ([facility]) [address] [place], [address], 09/11/2024 16:05:35 09/08/19 25 09/08/2024 LIPID PANEL HDL cholesterol 37 mg/dL >39 below low normal Not Available [facility] ([facility]) [address] [place], [address], 09/11/2024 16:05:35 09/08/19 25 09/08/2024 LIPID PANEL VLDL cholesterol leisa 22 mg/dL 5-40 Not Available [facility] ([facility]) [address] [place], [address], 09/11/2024 16:05:35 09/08/19 25 09/08/2024 LIPID PANEL LDL chol calc ([facility]) 128 mg/dL 0-99 above high normal Not Available [facility] ([facility]) [address] [place], [address], 09/11/2024 16:05:35 09/08/19 25 09/08/2024 LIPID PANEL 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 Not Available [facility] ([facility]) [address] [place], [address], 09/11/2024 16:05:35 09/08/19 25 09/09/2024 IRON AND TIBC iron bind.cap.(TI BC) 296 ug/dL 250-45 0 normal Not Available [facility] ([facility]) [address] [place], [address], 09/11/2024 16:05:36 09/08/19 25 09/09/2024 IRON AND TIBC UIBC 196 ug/dL 111-34 3 normal Not Available [facility] ([facility]) [address] [place], [address], 09/11/2024 16:05:36 09/08/19 25 09/09/2024 IRON AND TIBC iron 100 ug/dL 38-169 normal Not Available [facility] ([facility]) [address] [facility], [place], [address], 09/11/2024 16:05:36 09/08/19 25 09/09/2024 IRON AND TIBC iron saturation 34 % 15-55 normal Not Available [facility] ([facility]) [address] [facility], [place], [address], 09/11/2024 16:05:36 09/08/19 25 09/09/2024 ALBUM IN/CR EATIN INE RATIO ,URIN E creatinine, urine 147.8 mg/dL not estab. normal Not Available [facility] ([facility]) [address] [facility], [place], [address], 09/11/2024 16:05:37 09/08/19 25 09/09/2024 ALBUM IN/CR EATIN INE RATIO ,URIN E albumin, urine 6042.6 ug/mL not estab. Resul ts confi rmed on dilut ion. Not Available [facility] ([facility]) [address] [facility], [place], [address], 09/11/2024 16:05:37 09/08/19 25 09/09/2024 ALBUM IN/CR EATIN INE RATIO ,URIN E alb/creat ratio 4088 mg/g_ creat 0-29 above high normal Madison l: 0 - 29 Moder ately incre ased: 30 - 300 Sever richard incre ased: >300 Not Available [facility] ([facility]) [address] [facility], [place], [address], 09/11/2024 16:05:37 09/08/19 25 09/09/2024 VITAM IN B12 AND FOLAT E vitamin B12 821 pg/mL 232-12 45 normal Not Available [facility] ([facility]) [address] [facility], [place], [address], 09/11/2024 16:05:38 09/08/19 25 09/09/2024 VITAM IN B12 AND FOLAT E folate (folic acid), serum 4.2 NG/mL >3.0 normal A serum folat e asuncion ntrat ion of less than 3.1 ng/mL is consi dered to repre sent clini leisa defic iency . Not Available [facility] ([facility]) [address] [facility], [place], [address], 09/11/2024 16:05:38 09/08/19 25 09/10/2024 CALCI TRIOL (1,25 DI-OH VIT D) calcitriol(1 ,25 di-oh vit D) 31.1 pg/mL 24.8-8 1.5 Not Available [facility] ([facility]) [address] [facility], [place], [address], 09/11/2024 16:05:39 09/08/19 25 09/09/2024 VITAM IN D, 25-HY DROXY vitamin D, 25-hydroxy 32.3 NG/mL 30.0-1 00.0 Vitam in D defic iency has been defin ed by the Insti tute of Medic ine and an Endoc rine Socie ty pract ice guide line as a level of serum 25-OH vitam in D less than 20 ng/mL (1,2) . The Endoc rine Socie ty went on to furth er defin e vitam in D insuf ficie ncy as a level betwe en 21 and 29 ng/mL (2). 1. IOM (Inst itute of Medic ine). 2009. Dieta ry refer ence intak es for calci um and D. Millie caputo [place]: The [facility] Press . 2. Ashly huang MF, Chela grey [place], Todd off-F errar i BAILEY, et al. Evalu ation , treat ment, and preve ntion of vitam in D defic iency : an Endoc rine Socie ty clini leisa pract ice guide line. JCEM. 2010; 96(7) :1911 -30. 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 receptor 25.1 nmol/ L 12.2-2 7.3 Not Available [facility] ([facility]) [address] [place], [address], 09/11/2024 16:05:40 09/08/19 25 09/08/2024 TSH RFX ON ABNOR MAL TO FREE T4 TSH 2.360 uIU/m L 0.450- 4.500 normal Not Available [facility] ([facility]) [address] [place], [address], 09/11/2024 16:05:41 09/08/19 25 09/09/2024 GGT WITH REFLE X AMYLA SE/LI PASE GGT 104 IU/L 0-65 above high normal Not Available [facility] ([facility]) [address] [place], [address], 09/11/2024 16:05:41 09/08/19 25 09/09/2024 GGT WITH REFLE X AMYLA SE/LI PASE amylase 79 U/L 31-110 normal Not Available [facility] ([facility]) [address] [place], [address], 09/11/2024 16:05:41 09/08/19 25 09/09/2024 GGT WITH REFLE X AMYLA SE/LI PASE lipase 41 U/L 13-78 normal Not Available [facility] ([facility]) [address] [place], [address], 09/11/2024 16:05:41 09/08/19 25 09/09/2024 URIC ACID uric acid 5.0 mg/dL 3.8-8. 4 normal Thera peuti c targe t for gout patie nts: <6.0 Not Available [facility] ([facility]) [address] [place], [address], 09/11/2024 16:05:42 09/08/19 25 09/09/2024 POTAS SIUM, HEPAR IN PLASM A potassium, heparin plasma 5.4 mmol/ L 3.5-5. 2 above high normal Not Available [facility] ([facility]) [address] [place], [address], 09/11/2024 16:05:43 09/08/19 25 09/09/2024 MAGNE SIUM magnesium 1.5 mg/dL 1.6-2. 3 below low normal Not Available [facility] ([facility]) [address] [place], [address], 09/11/2024 16:05:44 09/08/19 25 09/08/2024 SHIRA TIN ferritin 155 NG/mL 30-400 normal Not Available [facility] ([facility]) [address] [place], [address], 09/11/2024 16:05:44 09/08/19 25 09/08/2024 RETIC ULOCY TE COUNT reticulocyte count 1.8 % 0.6-2. 6 Not Available [facility] ([facility]) [address] [place], [address], 09/11/2024 16:05:45 09/08/19 25 09/09/2024 PSA TOTAL (REFL EX TO FREE) reflex criteria Commen t The perce nt free PSA is perfo rmed on a refle x basis only when the total PSA is betwe en 4.0 and 10.0 ng/mL . Not Available [facility] ([facility]) [address] [place], [address], 09/14/2024 06:08:11 09/08/19 25 09/14/2024 PSA TOTAL (REFL EX TO FREE) prostate specific Ag 1.6 NG/mL 0.0-4. 0 normal Rita ECLIA metho dolog y. Accor ding to the Ameri can Urolo gical Assoc iatio n, Serum PSA shoul d decre ase and remai n at undet ectab le level s after radic al prost atect janet. The AUA defin es bioch emica l recur rence as an initi al PSA value 0.2 ng/mL or great er follo wed by a subse quent confi rmato ry PSA value 0.2 ng/mL or great er. Value s obtai gregorio with diffe rent assay metho ds or kits canno t be used inter baird eably . Resul ts canno t be inter prete d as absol camila evide nce of the prese nce or absen ce of [facility] reinaldo disea se. Not Available [facility] ([facility]) [address] [place], [address], 09/14/2024 06:08:11 09/08/19 25 09/10/2024 MITOC HONDR IAL (M2) ANTIB GISELL mitochondria l (M2) antibody <20.0 units 0.0-20 .0 Negat erik 0.0 - 20.0 Equiv ocal 20.1 - 24.9 Posit erik >24.9 Mitoc hondr ial (M2) Antib odies are found in 90-96 % of patie nts with prima ry bilia ry cirrh osis. Not Available [facility] ([facility]) [address] [place], [address], 09/14/2024 06:08:11 09/08/19 25 09/12/2024 JAYEITT EN AUTHO RIZAT ION written authorizatio n Commen t King en Autho rizat ion Recei max. Autho rizat ion recei max from [facility] DE for Link Reque st on 09-12 Logge d by Kwaku Logan Not Available [facility] ([facility]) [address] [place], [address], 09/21/2024 14:06:26 09/08/19 25 09/09/2024 KING EN AUTHO RIZAT ION written authorizatio n Commen t Writt en Autho rizat ion Recei max. Autho rizat ion recei max from [facility] DE for Link Reque st on 09-09 Logge d by Kwaku Logan Not Available [facility] ([facility]) [address] [place], [address], 09/14/2024 06:08:12 09/08/1909/19/2024 ALK PHOS ISOEN ZYME alkaline phosphatase COMMEN T IU/L Test not perfo rmed. Deter iorat ion occur red durin g speci men handl ing. Not Available [facility] ([facility]) [address] [place], [address], 09/21/2024 14:06:25 09/08/1909/21/2024 ALK PHOS ISOEN ZYME liver fraction: COMMEN T % Test not perfo rmed. ALKPH prote in requi red to compl ete testi ng. Not Available [facility] ([facility]) [address] [place], [address], 09/21/2024 14:06:25 09/08/1909/21/2024 ALK PHOS ISOEN ZYME bone fraction: COMMEN T % Test not perfo rmed. ALKPH prote in requi red to compl ete testi ng. Not Available [facility] ([facility]) [address] [place], [address], 09/21/2024 14:06:25 09/08/19 25 09/21/2024 ALK PHOS ISOEN ZYME intestinal frac.: COMMEN T % Test not perfo rmed. ALKPH prote in requi red to compl ete testi ng. Not Available [facility] ([facility]) [address] [place], [address], 09/21/2024 14:06:25 09/08/19 25 09/19/[address] PROBL EM request problem COMMEN T Test not perfo rmed. Deter iorat ion occur red durin g speci men handl ing. TEST: [id number] Alkal ine Phosp hatas e Panel : [id number] Not Available [facility] ([facility]) [address] [facility], [place], [address], 09/21/2024 14:06:27 04/04/20 24 03/14/2024 US, abdom en, limit ed No observ ation record ed. [email or web address] [facility] (Medical Records) [address] [place], [address], 04/08/2024 16:22:02 08/18/19 25 08/18/2024 US, echoc ardio gram No observ ation record ed. [facility] (Medical Records) [address] [place], [address], 08/23/2024 15:35:40 Result Notes None recorded. Problems Name Problem SNOMED Code Status Onset Date Resolution Date Notes Provider Name and Address Organization Details Recorded Time Counseli ng Completed 201102/07/2014 RECORDED 07/23/20 12 1:53PM BY CASIE AUSTIN MA, ANNOTATI ON/ADDTOYIN Quinteros PA-C [address] [address], [place], [address] , [facility] 6 14:37:53 Type 2 diabetes mellitus without complica tion 453045855 Completed 201202/07/2014 RECORDED 04/14/20 13 3:34PM BY CASIE AUSTIN MA, ANNOTATI ON/ADDEN RAYSHAWN Quinteros PA-C [address] [facility] [address], [place], [address] , [facility] 6 14:37:53 Malaise and fatigue 898921200 Completed 201102/07/2014 RECORDED 04/28/20 12 9:25AM BY LIBBY STEPHEN MA, ANNOTATI ON/ADDEN DUM Leigh Ann Quinteros PA-C [address] [facility] [address], [place], [address] , [facility] 6 14:37:53 Influenz a vaccine needed 76027096672 06 Completed 201202/07/2014 RECORDED 04/14/20 13 3:41PM BY CASIE AUSTIN MA, OFFICE VISIT Leigh Ann Quinteros PA-C [address] [facility] [address], [place], [address] , [facility] 6 14:37:53 Gout 38812208 Active 2013 LUIS Ferrari [facility] 4 15:12:02 Hyperlip idemia 04030969 Active 2013 LUIS Ferrari [facility] 4 15:12:02 Chronic kidney disease stage 1 600228565 Completed 201312/15/2016 STORY: ELEVATED MICROALB UMIN; RECORDED 01/19/20 14 2:14PM BY CASIE AUSTIN MA, OFFICE VISIT Leigh Ann Quinteros PA-C [address] [facility] [address], [place], [address] , [facility] 7 14:56:27 Displace ment of lumbar interver tebral disc without myelopat hy 69057698 Active 2013 SEES PSSP LUIS Ferrari [facility] 4 15:12:01 Proteinu nazia 83783804 Active 2013 LUIS Ferrari [facility] 4 15:12:02 Obesity 506689066 Active 2013 LUIS Ferrari [facility] 4 15:12:02 Infectiv e otitis externa 29924434 Completed 201102/07/2014 RECORDED 07/23/20 12 1:53PM BY CASIE AUSTIN MA, ANNOTATI ON/ADDEN DUM Leigh Annmitesh Quinteros PA-C [address] [facility] [address], [place], [address] , [facility] 6 14:37:53 Active or passive immuniza tion Completed 201102/07/2014 RECORDED 07/23/20 12 2:00PM BY CASIE AUSTIN MA, OFFICE VISIT Leigh Ann Quinteros PA-C [address] [facility] [address], [place], [address] , [facility] 6 14:37:53 Administ ration of diphther ia and tetanus vaccine Completed 201202/07/2014 RECORDED 11/23/19 13 2:44PM BY CASIE AUSTIN MA, TAMMIE ON/ADDEN DUM Leigh Annmitesh Quinteros PA-C [address] [facility] [address], [place], [address] , [facility] 6 14:37:53 Urolith Active 2013 HAS SEEN UROLOGY LUIS Ferrari, [facility] 4 15:12:02 Scrotal varices Active 2013 LUIS Ferrari [facility] 4 15:12:02 Adult health examinat ion Completed 201303/06/2014 RECORDED 01/19/20 14 2:13PM BY CASIE AUSTIN MA, TAMMIE ON/ADDEN DUM Leigh Annmitesh Quinteros PA-C [address] [facility] [address], [place], [address] , [facility] 6 14:37:53 Counseli ng Completed 201103/06/2014 RECORDED 07/23/20 12 1:53PM BY CASIE AUSTIN MA, TAMMIE ON/ADDEN DUM Leigh Annphill Quinteros ME-C [address] [facility] [address], [place], [address] , [facility] 6 14:37:53 Type 2 diabetes mellitus without complica tion 094017135 Completed 201203/06/2014 RECORDED 04/14/20 13 3:34PM BY CASIE AUSTIN MA, ANNOTATI ON/ADDEN DUM Leigh Ann Quinteros ME-C [address] [facility] [address], [place], [address] , [facility] 6 14:37:53 Malaise and fatigue 470198460 Completed 201103/06/2014 RECORDED 04/28/20 12 9:25AM BY LIBBY STEPHEN MA, ANNOTATI ON/ADDEN DUM Leigh Ann Quinteros ME-C [address] [facility] [address], [place], [address] , [facility] 6 14:37:53 Influenz a vaccine needed 23922606802 06 Completed 201203/06/2014 RECORDED 04/14/20 13 3:41PM BY CASIE AUSTIN MA, OFFICE VISIT Leigh Ann HENLEY-C [address] [facility] [address], [place], [address] , [facility] 6 14:37:53 Insomnia 244380765 Active 2013 Elena Mata [facility] 4 15:12:01 Infectiv e otitis externa 66142712 Completed 201103/06/2014 RECORDED 07/23/20 12 1:53PM BY CASIE AUSTIN MA, ANNOTATI ON/ADDEN DUM Leigh Ann Quinteros ME-C [address] [facility] [address], [place], [address] , [facility] 6 14:37:53 Active or passive immuniza tion Completed 201103/06/2014 RECORDED 07/23/20 12 2:00PM BY CASIE AUSTIN MA, OFFICE VISIT Leigh Ann Quinteros PA-C [address] [facility] [address], [place], [address] , [facility] 6 14:37:53 Administ ration of diphther ia and tetanus vaccine Completed 201203/06/2014 RECORDED 11/23/19 13 2:44PM BY CASIE AUSTIN MA, ANNOTATI ON/ADDEN DUM Leigh Ann Quinteros PA-C [address] [facility] [address], [place], [address] , [facility] 6 14:37:53 Otitis media 73567759 Completed 01/15/2017 LUIS Ward, [facility] 7 14:00:47 Disorder of cellular componen t of blood 222412262 Completed 201308/20/2024 Vivi De MD [address] [facility] [address], [place], [address] , [facility] 5 22:35:18 Uncontro lled type 2 diabetes mellitus 370464941 Completed 201301/05/2017 RECORDED 01/21/20 14 11:18AM BY VIANCA SENA, HISTORIC AL SUMMARY Leigh Ann Quinteros PA-C [address] [facility] [address], [place], [address] , [facility] 7 12:05:05 Renal disorder due to type 2 diabetes mellitus 593457202 Active 2020 Not Available [facility] 4 18:06:38 Otitis externa 7632786 Completed 01/15/2017 LUIS Ward, [facility] 7 14:00:31 Body mass index 30+ - obesity 690369302 Completed 05/13/2017 Leigh Ann Quinteros PA-C [address] [address], [place], [address] , [facility] 7 17:10:10 Type 2 diabetes mellitus 00274877 Completed 01/05/2017 Leigh Ann Quinteros PA-C [address] [facility] [address], [place], [address] , [facility] 7 12:04:58 Tachycar jimi 2178841 Completed 08/17/2023 Vivi De MD [address] [facility] [address], [place], [address] , [facility] 4 16:02:45 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 16152675 Active LUIS Ferrari, [facility] 4 15:12:02 Primary erectile dysfunct ion 740542993 Active LUIS Ferrari, [facility] 4 15:12:02 Hyperkal emia 08514281 Completed 202008/23/2023 Vivi De MD [address] [facility] [address], [place], [address] , [facility] 4 13:51:59 Chronic kidney disease stage 3 805618081 Completed 11/24/2023 Vivi De MD [address] [facility] [address], [place], [address] , [facility] 4 19:07:37 Noncompl iance with therapeu tic regimen 704197706 Active 2017 LUIS Ferrari, [facility] 4 15:12:01 Diabetic on insulin 105830101 Active 2017 [facility] 4 15:12:01 Poor short-te rm memory 597399759 Active 2019 LU[facility], [facility] 4 15:12:02 Hyperten sive renal disease 27977285 Active 2019 DX: I12.9 Not Available [facility] 4 18:06:38 Iliopsoa s bursitis of right hip [id number] 55412 Completed 202008/17/2023 Vivi De MD [address] [facility] [address], [place], [address] , [facility] 4 15:47:00 Hypomagn esemia 225327934 Active 2020 Not Available [facility] 4 18:06:37 Acute kidney injury 79225865 Completed 202008/15/2023 Vivi De MD [address] [facility] [address], [place], [address] , [facility] 4 15:46:57 Hyperten kiko monitori ng status 396004879 Active 2023 dis-enro sukumar [facility], [facility] 4 09:51:37 Chronic kidney disease stage 4 943994651 Active 2023 Vivi De MD [address] [facility] [address], [place], [address] , [facility] 4 19:07:44 Hyperpar athyroid ism due to renal insuffic iency 07322186 Active 2023 Vivi De MD [address] [facility] [address], [place], [address] , [facility] 4 07:19:59 Notes:Some problems listed i n Documents: #[id number], #[id number], #[id number], #[id number], #[id number], #[id number], #[id number] could not be added to this patient's chart. Please review these documents and add these problems to the patient's chart manually as needed. Problem Notes None recorded. Procedures Surgical History Date Name Laterality Status Provider Name and Address Organization Details Recorded Time 08/22/19 25 Advanced Care Planning completed Vivi De MD [address] [address] [facility], [place], [address], [facility] 08/20/2024 22:29:02 08/17/19 24 Advanced Care Planning completed Vivi De MD [address] [facility] [address] [facility], [place], [address], [facility] 08/15/2023 15:44:21 05/04/20 23 removal of catheter completed Yesi Farris [facility] 05/06/2023 13:15:36 04/10/20 23 Diabetic Foot Exam (Monofilament) completed Vivi De MD [address] [address], [place], [address], [facility] 04/10/2023 13:37:37 03/26/20 23 retrograde pyelogram completed Yesi Farris [facility] 03/27/2023 09:26:09 03/26/20 23 ureteric lithotripsy completed Yesi Farris [facility] 03/27/2023 09:26:39 03/26/20 23 insertion of stent into ureter completed Yesi Farris [facility] 03/27/2023 09:26:57 07/15/20 22 Advanced Care Planning completed Felicita Cai [facility] 07/17/2022 13:15:29 03/17/20 22 Diabetic Foot Exam (Monofilament) completed Vivi De MD [address] [facility] [address] [facility], [place], [address], [facility] 03/17/2022 15:17:06 06/18/20 21 Advanced Care Planning completed Vivi De MD [address], [address], [facility] 06/18/2021 08:50:42 06/18/20 21 Diabetic Foot Exam (Monofilament) completed Vivi De MD [address], [address], [facility] 06/18/2021 18:56:54 06/04/20 20 Six-Item Cognitive Test completed Casie badillo MA [facility] 06/04/2020 15:16:46 09/15/19 20 Colonoscopy completed Casie badillo MA [facility] 06/04/2020 15:14:36 04/15/20 19 Mini-Cog Test completed Casie badillo MA [facility] 04/15/2019 15:42:06 09/20/19 19 Diabetic Foot Exam (Monofilament) completed Celia Ortiz MA [facility] 09/20/2018 14:36:35 04/16/20 18 Diabetic Foot Exam (Monofilament) completed Clemencia Lindsey MA [facility] 04/16/2018 14:44:34 03/05/20 18 Diabetic Foot Exam (Monofilament) completed Clemencia Lindsey MA [facility] 03/05/2018 12:51:44 01/27/20 18 Diabetic Foot Exam (Monofilament) completed Clemencia Lindsey MA [facility] 01/26/2018 09:37:53 12/09/19 18 Diabetic Foot Exam (Monofilament) completed Dottie Moe MA [facility] 12/08/2017 15:02:35 07/27/18 58 tonsillectomy completed Hadley Main MA [facility] 07/15/2022 14:41:22 Imaging Results Imaging Date Name Status LastModified by Organization Details LastModified Time 03/14/2024 US, abdomen, limited completed [email or web address] [facility] (Medical Records) [address] [place], [address], 04/08/2024 16:22:02 08/18/2024 US, echocardiogram completed [email or web address] [facility] (Medical Records) [address] [place], [address], 08/23/2024 15:35:40 Procedure Notes None recorded. Medical Equipment None Reported. Allergies Allergen ID Allergen Name Allergen Category Reaction Reaction Severity Criticality Documentation Date Start Date Code Code System Note Provider Name and Address Organization Details Recorded Time 29407 Victoza medicatio n abdominal pain Not available Not available 04/16/2018 68436 3 RxNorm Leigh Annmitesh Quinteros PA-C [address] [facility] [address], [facility], [address], [facility] [place] 15:07:08 [address] liragluti de medicatio n other Not available Not available 05/20/20212020 01790 8 RxNorm Leisa Charles [facility] 1 10:45:47 [id number] Product containin g angiotens in-conver ting enzyme inhibitor (product) medicatio n Not available Not available low 11/24/2023 [id number] SNOMED See renal note Vivi De MD [address] [facility] [address], [place], [address], [facility] 4 19:07:27 Medications Name Sig Start Date Stop Date Status Note LastModified by Organization Details LastModified Time allopurin ol 100 mg tabs 06/04 completed Not Available Not Available Not Available clindamyc in hcl 300 mg caps 06/04 completed Not Available Not Available Not Available oxycodone hydrochlo ride 10 mg tabs 06/04 completed Not Available Not Available Not Available pioglitaz one hydrochlo ride 30 mg tabs 06/04 completed Not Available Not Available Not Available onetouch delica plus lancets extra fine 33g misc active Not Available Not Available Not Available gavilyte- g kyle 06/04 completed Not Available Not Available Not Available enalapril maleate 5 mg tabs 06/04 completed Not Available Not Available Not Available lovastati n 40 mg tabs 06/04 completed Not Available Not Available Not Available gabapenti n 300 mg caps 06/04 completed Not Available Not Available Not Available pharmacis t choice ultra thin lancet s 31g misc 12/09 completed Not Available Not Available Not Available indometha demarcus 50 mg caps 06/04 completed Not Available Not Available Not Available simple diagnosti cs lancing device misc active Not Available Not Available Not Available hydroco/a pap tab 5-325mg 06/04 completed Not Available Not Available Not Available cyclobenz aprine hydrochlo ride 10 mg tabs 06/04 completed Not Available Not Available Not Available temazepam 15 mg caps 06/04 completed Not Available Not Available Not Available glipizide er 10 mg tb24 06/04 completed Not Available Not Available Not Available amitripty line hydrochlo ride 75 mg tabs 06/04 completed Not Available Not Available Not Available cyclobenz aprine 10 mg tablet TAKE 1/2 TO 1 TABLET BY MOUTH EVERY NIGHT AT BEDTIME NEEDED 11/23 completed Not Available Not Available Not Available amoxicill in 500 mg capsule 09/01 completed Not Available Not Available Not Available furosemid e 40 mg tablet TAKE 1 TABLET BY MOUTH EVERY DAY 08/22 completed Not Available Not Available Not Available atorvasta tin 40 mg tablet TAKE 1 TABLET BY MOUTH EVERY DAY 2024 active Not Available Not Available Not Avai lable silver sulfadiaz ine 1 % topical cream APPLY A 1/16 INCH (1.5 MM) THICK LAYER TO ENTIRE BURN AREA BY TOPICALR OUTE 2 TIMES PER DAY 03/17 completed Not Available Not Available Not Available metformin 500 mg tablet Take 1 tablet twice a day by oral route. 06/04 completed due to kidney disease Not Available Not Available Not Available neomycin- polymyxin -hydrocor t 3.5 mg/mL-10, 000 unit/mL-1 % ear solution INSTILL 4 DROPS INTO AFFECTED EAR(S) BY OTIC ROUTE 3 TIMES PER DAY 2013 active Not Available Not Available Not Avai lable azelastin e 0.05 % eye drops INSTILL 1 DROP INTO AFFECTED EYE TWICE A DAY 02/23 completed Not Available Not Available Not Available prednison e 10 mg tablet PLEASE SEE ATTACHED FOR DETAILED DIRECTIO NS active Not Available Not Available No t Available clindamyc in HCl 300 mg capsule TAKE 1 CAPSULE BY MOUTH THREE TIMES A DAY 06/04 completed Not Available Not Available Not Available enalapril maleate 5 mg tablet TAKE 1 TABLET BY MOUTH EVERY DAY 01/04 completed Not Available Not Available Not Available fexofenad ine 60 mg tablet TAKE 1 TABLET BY MOUTH EVERY DAY 2023 active prn allergy season Not Available Not Available Not Available cefpodoxi me 200 mg tablet TAKE 1 TABLET (200 MG TOTAL) BY MOUTH DAILY. *DO NOT START BEFORE OCTOBER 23, 2024.* active Not Available Not Available No t Available azithromy demarcus 250 mg tablet 09/01 completed Not Available Not Available Not Available ibuprofen 800 mg tablet 06/04 completed Not Available Not Available Not Available amitripty line 75 mg tablet TAKE 1 TO 2 TABLETS BY MOUTH AT BEDTIME NEEDED FOR PAIN 11/23 completed Not Available Not Available Not Available hydrocodo ne 5 mg-acetam inophen 325 mg tablet TAKE 1 TABLET BY MOUTH EVERY 6 HOURS NEEDED 06/04 completed Not Available Not Available Not Available sodium bicarbona te 325 mg tablet TAKE ONE TABLET (325 MG TOTAL) BY MOUTH TWICE DAILY @ 9AM- 5PM FOR INDIGEST ION 08/22 completed Not Available Not Available Not Available glipizide ER 10 mg tablet, extended release 24 hr Take 2 tablets every day by oral route for 90 days. 01/04 completed Not Available Not Available Not Available promethaz ine 12.5 mg tablet 04/10 completed Not Available Not Available Not Available lovastati n 40 mg tablet TAKE 1 TABLET EVERY DAY BY ORAL ROUTE IN THE EVENING FOR 90 DAYS, FOR HIGH CHOLESTE ROL. 09/14 completed Not Available Not Available Not Available Viagra 50 mg tablet Take 1 tablet every day by oral route as needed at least 30min prior to sexual activity . 04/10 completed Not Available Not Available Not Available methylpre dnisolone 4 mg tablet TAKE 1 TABLET 4 TIMES A DAY FOR 1 DAY, 1 TABLET 3 TIMES A DAY FOR 1 DAY, 1 TABLET TWICE A DAY FOR 1 DAY, 1 TABLET ONCE A DAY FOR 1 DAY, THEN 01/04 completed Not Available Not Available Not Available glipizide ER 5 mg tablet, extended release 24 hr Take 1 tablet every day by oral route for 90 days. 04/07 completed PER Endo Not Available Not Available Not Available cyanocoba charlette (vit B-12) 1,000 mcg tablet Take 1 tablet every day by oral route. active Not Available Not Available No t Available amlodipin e 2.5 mg tablet TAKE 1 TABLET BY MOUTH EVERY DAY active Not Available Not Available No t Available amlodipin e 5 mg tablet TAKE 1 TABLET EVERY DAY BY ORAL ROUTE FOR 90 DAYS, FOR BLOOD PRESSURE .. active Not Available Not Available No t Available allopurin ol 100 mg tablet TAKE 1 TABLET EVERY DAY BY ORAL ROUTE FOR 90 DAYS, FOR GOUT PREVENTI ON. active Not Available Not Available No t Available ciproflox acin 500 mg tablet TAKE 1 TABLET BY MOUTH TWICE A DAY 08/03 completed Not Available Not Available Not Available sulfameth oxazole 800 mg-trimet hoprim 160 mg tablet TAKE 1 TABLET BY MOUTH EVERY 12 HOURS FOR 7 DAYS 08/02 completed Not Available Not Available Not Available tramadol 50 mg tablet TAKE 2 TABLETS BY MOUTH 3 TIMES A DAY NEEDED 2013 active Not Available Not Available Not Avai lable amitripty line 50 mg tablet active Not Available Not Available No t Available oxycodone -acetamin ophen 5 mg-325 mg tablet TAKE 1 TABLET BY MOUTH EVERY 6 HOURS NEEDED FOR PAIN 04/10 completed Not Available Not Available Not Available amoxicill in 875 mg tablet Take 1 tablet every 12 hours by oral route as directed for 7 days. 01/26 completed Not Available Not Available Not Available hydromorp mariza 2 mg tablet TAKE 1 TABLET BY MOUTH EVERY 4 HOURS NEEDED FOR MODERATE PAIN 06/18 completed Not Available Not Available Not Available magnesium oxide 400 mg (241.3 mg magnesium ) tablet TAKE 1 TABLET BY MOUTH EVERY DAY active Not Available Not Available No t Available temazepam 15 mg capsule TAKE 1 CAPSULE BY MOUTH AT BEDTIME FOR INSOMNIA active Not Available Not Available No t Available oxycodone -acetamin ophen 10 mg-325 mg tablet AT BEDTIME active RECORDED 01/19/20 14 2:11PM BY CASIE AUSTIN MA, OFFICE VISIT;PS SP Not Available Not Available Not Available tamsulosi n 0.4 mg capsule TAKE ONE CAPSULE BY MOUTH DAILY AT 9 PM EVERY DAY AT BEDTIME 08/03 completed Not Available Not Available Not Available antipyrin e-benzoca ine 5.4 %-1.4 % ear drops INSTILL INTO AFFECTED EAR(S) BY OTIC ROUTE 3 TIMES PER DAY ENOUGH DROPS TO FILL EAR CANAL 2013 active Not Available Not Available Not Avai lable sodium bicarbona te 650 mg tablet TAKE 2 TABLETS (1,300 MG TOTAL) BY MOUTH TWICE A DAY active Not Available Not Available No t Available baclofen 10 mg tablet TAKE 1-2 BY MOUTH 3 TIMES A DAY NEEDED SPASM 08/22 completed Not Available Not Available Not Available amlodipin e 10 mg tablet TAKE 1 TABLET BY MOUTH EVERY DAY 2024 active Not Available Not Available Not Avai lable cephalexi n 500 mg capsule TAKE 1 CAPSULE BY MOUTH TWICE A DAY FOR 5 DAYS 03/17 completed Not Available Not Available Not Available erythromy demarcus 5 mg/gram (0.5 %) eye ointment APPLY 1 CM RIBBON INTO THE LOWER CONJUNCT IVAL SAC(S) IN THE AFFECTED EYE(S) BY OPHTHALM IC ROUTE 3 TIMES PER DAY FOR 7 DAYS 02/23 completed Not Available Not Available Not Available indometha demarcus 50 mg capsule TAKE 1 CAPSULE BY MOUTH 1 2 TIMES DAILY NEEDED FOR ARTHRITI C/GOUT PAIN 06/18 completed Not Available Not Available Not Available gabapenti n 300 mg capsule TAKE 1 CAPSULE TWICE A DAY BY ORAL ROUTE FOR 90 DAYS, FOR BACK PAIN. active Not Available Not Available No t Available lisinopri l 5 mg tablet Take 1 tablet every day by oral route for 90 days. 06/18 completed Not Available Not Available Not Available furosemid e 20 mg tablet TAKE 1 TABLET BY MOUTH EVERY DAY FOR 7 DAYS 08/22 completed Not Available Not Available Not Available Levaquin 500 mg tablet Take 1 tablet every 24 hours by oral route for 7 days. 04/10 completed Not Available Not Available Not Available levofloxa demarcus 750 mg tablet TAKE 1 TABLET EVERY OTHER DAY BY ORAL ROUTE FOR 10 DAYS. 04/11 completed Not Available Not Available Not Available sodium polystyre ne sulfonate oral powder TAKE 30 G ORALLY 3 TIMES A WEEK FOR 90 DAYS active Not Available Not Available No t Available pioglitaz one 30 mg tablet TAKE 1 TABLET BY MOUTH EVERY DAY active Not Available Not Available No t Available metformin ER 500 mg tablet,ex tended release 24 hr Take 4 tablets every day by oral route for 90 days. 04/07 completed PER Endo Not Available Not Available Not Available calcitrio l 0.25 mcg capsule TAKE 1 CAPSULE ORALLY 3 TIMES A WEEK FOR 90 DAYS active Not Available Not Available No t Available Murine Ear 6.5 % drops INSTILL 5 DROPS INTO AFFECTED EAR(S) BY OTIC ROUTE 2 TIMES PER DAY FOR NO MORE THAN 4 DAYS 07/15 completed Not Available Not Available Not Available azithromy demarcus 500 mg tablet TAKE 1 TABLET BY MOUTH EVERY DAY FOR 7 DAYS 07/15 completed Not Available Not Available Not Available Novolog FlexPen U-100 Insulin aspart 100 unit/mL (3 mL) subcutane ous Inject 10 units 3 times a day by subcutan eous route before meals for 30 days. 2015 active Not Available Not Available Not Avai lable metoprolo l tartrate 25 mg tablet Take 1 tablet every day by oral route for 30 days. 08/17 completed Not Available Not Available Not Available lactulose 10 gram/15 mL oral solution Take 15 mL every day by oral route for 30 days. 04/10 completed Not Available Not Available Not Available chlorhexi dine gluconate 0.12 % mouthwash SWISH 15 MLS BY MOUTH, HOLD FOR 30 SECONDS THEN SPIT TWICE A DAY FOR 7 DAYS. 06/04 completed Not Available Not Available Not Available oxycodone take 1 tablet daily po 5mg active Not Available Not Available No t Available amitripty line AT BEDTIME active RECORDED 10/15/19 14 2:33PM BY CINTHYA GUERRIER I, OFFICE VISIT;PS SP Not Available Not Available Not Available Levemir U-100 Insulin 100 unit/mL subcutane ous solution Inject 30 units every day by sub-q route in the evening for 30 days. active Not Available Not Available No t Available BD Ultra-Fin e Short Pen Needle 31 gauge x 5/16 USE DIRECTED FOR TYPE 2 DIABETES MELLITUS active Not Available Not Available No t Available Zostavax (PF) 19,400 unit/0.65 mL subcutane ous suspensio n 04/01 completed Not Available Not Available Not Available metformin ER 500 mg 24 hr tablet,ex tended release (gastric retention ) TAKE 4 TABLETS BY MOUTH EVERY DAY 01/26 completed Not Available Not Available Not Available cholecalc iferol (vitamin D3) 1,250 mcg (50,000 unit) capsule TAKE 1 CAPSULE ORALLY EVERY MONTH active Not Available Not Available No t Available Lantus Solostar U-100 Insulin 100 unit/mL (3 mL) subcutane ous pen Inject 60 units every day by subcutan eous route for 90 days. 01/04 completed Not Available Not Available Not Available Humalog PatsyPen (U-100) Insulin 100 unit/mL subcutane ous sliding scale with meals active Not Available Not Available No t Available oxycodone 10 mg tablet TAKE 1 TABLET BY MOUTH UP TO 4 TIMES A DAY NEEDED PAIN, MAY FILL FEWER active Not Available Not Available No t Available cholecalc iferol (vitamin D3) 50 mcg (2,000 unit) capsule Take 1 capsule every day by oral route for 90 days. 03/07 completed capsule not covered Not Available Not Available Not Available cholecalc iferol (vitamin D3) 50 mcg (2,000 unit) tablet TAKE ONE TABLET (50 mcg) BY MOUTH DAILY AT 9 AM EVERY MORNING 08/03 completed Not Available Not Available Not Available Apidra SoloStar U-100 Insulin 100 unit/mL subcutane ous pen Inject 10 units 3 times a day by subcutan eous route for 30 days. 2015 active Not Available Not Available Not Avai lable blood pressure test kit-large cuff active Not Available Not Available Not Available sevelamer carbonate 0.8 gram oral powder packet TAKE 1 PACKET (800 MG TOTAL) BY MOUTH 3 (THREE) TIMES A DAY WITH MEALS. active Not Available Not Available No t Available OneTouch Verio test strips TEST 3 TIMES A DAY active Not Available Not Available No t Available Unifine Pentips 31 gauge x 3/16 needle INJECT DIRECTED ONCE A DAY 2018 active Not Available Not Available Not Avai lable magnesium 400 mg (as magnesium oxide) capsule Take 1 capsule every day by oral route. 03/17 completed Not Available Not Available Not Available sodium polystyre ne sulfonate (sorbitol free) 15 gram/60 mL oral susp 01/05 completed Not Available Not Available Not Available Victoza 2-Jase 0.6 mg/0.1 mL (18 mg/3 mL) subcutane ous pen injector Inject 0.6 mg every day by subcutan eous route. 12/26 completed Not Available Not Available Not Available BD Insulin Syringe Ultra-Fin e 1 mL 31 gauge x 5/16 01/15 completed Not Available Not Available Not Available [place] SoloStar U-300 Insulin 300 unit/mL (1.5 mL) subcutane ous pen 75 u daily 01/10 completed Not Available Not Available Not Available Azo Cranberry 1 caplet po daily active Not Available Not Available No t Available Tresiba FlexTouch U-200 insulin 200 unit/mL (3 mL) subcutane ous pen Inject 84 units by subcutan eous route for 30 days. 01/26 completed Not Available Not Available Not Available Tresiba FlexTouch U-100 insulin 100 unit/mL (3 mL) subcutane ous pen INJECT 65 UNITS SUBCUTAN EOUSLY EVERY EVENING active Not Available Not Available No t Available Veltassa 8.4 gram oral powder packet Take 1 packet 3 times a week by oral route for 30 days. 06/04 completed Not Available Not Available Not Available Veltassa 3 times a week 04/15 completed PER Nephrolo gy Not Available Not Available Not Available Toujeo Max U-300 SoloStar 300 unit/mL (3 mL) subcutane ous insulin pen Inject 80 units every day by subcutan eous route in the evening. 06/04 completed per endo Not Available Not Available Not Available Lokelma 5 gram oral powder packet active Not Available Not Available Not Available Lokelma 10 gram oral powder packet TAKE 1 PACKET BY MOUTH 2 (TWO) TIMES A WEEK 11/23 completed Not Available Not Available Not Available OneTouch Delica Plus Lancet 33 gauge USE DIRECTED 4 TIMES A DAY active Not Available Not Available No t Available OneTouch Verio Reflect Meter active Not Available Not Available Not Available Digestive Advantage Probiotic 2 billion cell-140 mg capsule Take 1 capsule every day by oral route. active Not Available Not Available No t Available Gvoke HypoPen 1-Pack 1 mg/0.2 mL subcutane ous auto-inje ctor 08/22 completed Not Available Not Available Not Available FreeStyle Jam 3 Plus Sensor device active Not Available Not Available Not Available Vitals Date Recorded Body height Body mass index (BMI) Body weight Heart rate Oxygen saturation Oxygen saturation in Arterial blood by Pulse oximetry Body temperature Systolic blood pressure Diastolic blood pressure Provider Name and Address Organization Details Last Updated DateTime 4 177.8 cm 30.6 kg/m2 17739.1 7 g 82 /min 97 % 97 % 97.9 [degF] 122 mm[Hg] 54 mm[Hg] Casie stubbs MA [facility] 4 11:39:16 Date Recorded Body height Body mass index (BMI) Body weight Heart rate Oxygen saturation Oxygen saturation in Arterial blood by Pulse oximetry Body temperature Systolic blood pressure Diastolic blood pressure Provider Name and Address Organization Details Last Updated DateTime 4 177.8 cm 30.4 kg/m2 87115.5 8 g 86 /min 96 % 96 % 98.1 [degF] 125 mm[Hg] 66 mm[Hg] Casie stubbs MA [facility] 4 14:52:11 Date Recorded Body height Body mass index (BMI) Body weight Heart rate Oxygen saturation Oxygen saturation in Arterial blood by Pulse oximetry Body temperature Systolic blood pressure Diastolic blood pressure Provider Name and Address Organization Details Last Updated DateTime 4 177.8 cm 31.2 kg/m2 33820.2 4 g 82 /min 97 % 97 % 98.3 [degF] 135 mm[Hg] 63 mm[Hg] Humaira Jo L[facility] 4 15:24:10 Date Recorded Body height Provider Name an d Address Organization Details Last Updated DateTime 08/03/2024 177.8 cm Azra Torres [facility] 08/03/2024 14:36:10 Date Recorded Body mass index (BMI) Body weight Heart rate Oxygen saturation Oxygen saturation in Arterial blood by Pulse oximetry Body temperature Systolic blood pressure Diastolic blood pressure Provider Name and Address Organization Details Last Updated DateTime 5 32.3 kg/m2 709002. 28 g 86 /min 97 % 97 % 98.4 [degF] 154 mm[Hg] 70 mm[Hg] [facility] 5 14:43:16 Date Recorded Body height Body mass index (BMI) Body weight Heart rate Oxygen saturation Oxygen saturation in Arterial blood by Pulse oximetry Body temperature Systolic blood pressure Diastolic blood pressure Provider Name and Address Organization Details Last Updated DateTime 5 177.8 cm 30.6 kg/m2 92004.1 7 g 84 /min 96 % 96 % 98.3 [degF] 150 mm[Hg] 66 mm[Hg] Casie stubbs MA [facility] 5 15:25:23 Date Recorded Systolic blood pressure Diastolic blood pressure Provider Name and Address Organization Details Last Updated DateTime 08/22/2024 154 mm[Hg] 72 mm[Hg] Elena Mata MA [facility] 08/22/2024 16:14:01 Social History Question Answer Notes LastModified by Organizat ion Details LastModified Time Tobacco Smoking Status Never Smoker La Nena lucia [facility] 03/30/2014 15:10:37 Do You Have An Advance Directive? Yes Anne-Marie Waggoner (sister) Information not available 04/09/2015 What Is Your Level Of Alcohol Consumption? None Information not available 06/26/2014 Is Blood Transfusion Acceptable In An Emergency? Yes Information not available 04/09/2015 What Is Your Level Of Caffeine Consumption? Moderate Soda- 2-3 Daily [email or web address] Information not available 08/17/2023 How Much Tobacco Do You Chew? None Information not available 04/09/2015 Are You Currently Employed? 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 CARBOHYDRATE Information not available 01/15/2017 Which Illicit Or Recreational Drugs Have You Used? None Information not available 04/09/2015 Do You Or Have You Ever Used E-cigarettes Or Vape? Never Used Electronic Cigarettes Information not available 06/04/2020 What Is Your Occupation? [employer] Home Information not available 06/26/2014 Live Alone Or With Others? With Others [facility] Information not available 08/17/2023 Do You Take Precautions To Prevent Distracted Driving? Yes Information not available 04/09/2015 How Often Do You Need To Have Someone Help You When You Read Instructions, Pamphlets, Or Other Written Material From Your Doctor Or Pharmacy? Never Information not available 04/09/2015 Have You Served In The ? No Information not available 01/15/2017 *[facility] ONLY* Are You Presently Prescribed Opioid Medication By PCP Or Specialist? If YES -Provider Assess The Benefit For Other, Non-opioid Pain Therapies Instead, Even If The Patient Does Not Have OUD But Is Possibly At Risk. Yes Information not available 06/04/2020 What Was The Date Of Your Most Recent Tobacco Screening? 08/22/2024 Information not available 08/22/2024 How Many Children Do You Have? 0 Information not available 04/09/2015 Do You Use Protection During Sex? No Information not available 04/09/2015 Seat Belts Used Routinely Yes Information not available 04/09/2015 Are You Sexually Active? Yes Information not available 04/09/2015 Smoke Alarm In Home Yes Information not available 04/09/2015 At What Age Did You Start Smoking Tobacco? 0 Information not available 04/09/2015 Are You Passively Exposed To Smoke? No Information not available 04/09/2015 Do You Or Have You Ever Used Smokeless Tobacco? Never Used Smokeless Tobacco Information not available 06/04/2020 How Much Tobacco Do You Smoke? No Information not available 06/26/2014 Do You Use Any Illicit Or Recreational Drugs? No Information not available 10/02/2021 Do You Use Sunscreen Routinely? Yes Information not available 04/09/2015 How Many Years Have You Smoked Tobacco? 0 Information not available 04/09/2015 Do You Or Have You Ever Used Any Other Forms Of Tobacco Or Nicotine? No Information not available 10/02/2021 Sex: Unknown Functional Status Question Answer Note LastModified by Organizat ion Details LastModified Time Are you able to walk? YESWOREST Information not available 10/02/2021 Are you able to care for yourself? Yes Information not available 06/26/2014 What is your exercise level? Moderate walking Information not available 06/26/2014 Mental Status None recorded. Family History Relationship Description Onset Age of this Age Resolved Age Notes LastModified by Organization Details LastModified Time Father History of malignant neoplasm 40 58 [email or web address] s Not available 06/26/2014 14:47:41 Medical History Condition Response Diabetes Y Kidney Disease Y Immunizations Vaccine Type Date Status Note Provider Nam e and Address Organization Details Recorded Time Pneumococcal conjugate PCV 13 7 completed LUIS Hanks [facility] 03/05/2018 13:04:15 zoster live 7 completed Not Available [facility] 18:06:39 zoster live 5 completed LUIS Hanks [facility] 03/05/2018 13:05:03 zoster live 7 completed LUIS Ferrari [facility] 08/17/2023 15:12:09 COVID-19, mRNA, LNP-S, PF, 100 mcg/0.5mL dose or 50 mcg/0.25mL dose 1 completed LUIS Ferrari [facility] 08/17/2023 15:12:08 COVID-19, mRNA, LNP-S, PF, 100 mcg/0.5mL dose or 50 mcg/0.25mL dose 1 completed LUIS Ferrari [place] [facility] 08[facility]17[facility] 15:12:08 COVID-19, mRNA, LNP-S, PF, 100 mcg/0.5mL dose or 50 mcg/0.25mL dose 1 completed LUIS Ferrari [facility] 08/17/2023 15:12:08 pneumococcal polysaccharide PPV23 9 completed LUIS Ferrari, [facility] 08/17/2023 15:12:08 Influenza, split virus, quadrivalent, PF 5 completed LUIS Ferrari, [facility] 08/17/2023 15:12:09 Pneumococcal conjugate PCV 13 8 completed LUIS Ferrari, [facility] 08/17/2023 15:12:08 Influenza, split virus, trivalent, PF 4 completed LUIS Ferrari, [facility] 08/17/2023 15:12:09 Influenza, high-dose, quadrivalent, PF 1 completed LUIS Ferrari, [facility] 08/17/2023 15:12:08 Influenza, split virus, quadrivalent, PF 7 completed LUIS Ferrari, [facility] 08/17/2023 15:12:09 Influenza, high-dose, quadrivalent, PF 0 completed LUIS Ferrari, [facility] 08/17/2023 15:12:08 Influenza, split virus, quadrivalent, PF 8 completed LUIS Ferrari, [facility] 08/17/2023 15:12:09 Influenza, high-dose, trivalent, PF 9 completed LUIS Ferrari, [facility] 08/17/2023 15:12:09 Td (adult), 2 Lf tetanus toxoid, preservative free, adsorbed 2 completed LUIS Ferrari, [facility] 08/17/2023 15:12:09 Influenza, high-dose, quadrivalent, PF 2 completed LUIS Ferrari, [facility] 08/17/2023 15:12:08 Influenza, split virus, quadrivalent, PF 6 completed Not Available [facility] 08/13/2019 02:22:04 influenza, seasonal, intradermal, preservative free 2 completed Not Available [facility] 08/15/2023 18:06:39 Tdap 2 completed Not Available [facility] 08/15/2023 18:06:39 pneumococcal polysaccharide PPV23 2 completed Not Available [facility] 08/15/2023 18:06:38 influenza, seasonal, intradermal, preservative free 3 completed Not Available [facility] 08/15/2023 18:06:39 Influenza, high-dose, quadrivalent, PF 3 completed LUIS Zhao, [facility] 04/10/2023 13:42:39 Influenza, high-dose, trivalent, PF 4 completed LUIS Zhao, [facility] 04/11/2024 12:43:47 Past Encounters Encounter ID Performer Location Encounter Start Date Encounter Closed Date Diagnosis/Indication Diagnosis SNOMED-CT Code Diagnosis ICD10 Code Diagnosis Note [id number] [facility] [address] [facility] [address] [place] [address] 01/14/2012 00:00:00 [id number] auto[facility] erce [address] [facility] [address] [place] [address] 02/06/2012 00:00:00 [id number] auto[facility]Comm erce [address] [facility] [address] [place] [address] 04/28/2012 00:00:00 [id number] autoEComm erce [address] [facility] [address] [place] [address] 07/23/2012 00:00:00 [id number] autoEComm erce [address] [facility] [address] [place] [address] 11/22/2012 00:00:00 [id number] auto[facility]Comm erce [address] [facility] [address] [place] [address] 04/14/2013 00:00:00 [id number] auto[facility]Comm erce [address] [facility] [address] [place] [address] 10/14/2013 00:00:00 [id number] auto[facility]Comm erce [address] [facility] [address] [place] [address] 01/18/2014 00:00:00 [id number] Casie hooker [place] Main Office [address] [facility] [address] [place] [address] 03/30/2014 15:02:25 03/30/2014 15:47:43 Otitis media 74985394 [id number] Casie hooker [place] Main Office [address] [address] [place] [address] 04/03/2014 14:00:31 04/03/2014 14:41:19 Otitis media 30083939 Otitis externa 5343204 Body mass index 30+ - obesity 742645593 [id number] Main Office [address] [address] [place] [address] 04/10/2014 12:42:38 04/10/2014 14:10:01 Type 2 diabetes mellitus 27442061 Gout 61964605 Hyperlipidemia 96731497 Tachycardia 8599640 Needs infl uenza immunization 505845857 [id number] Casie hooker [place] Main Office [address] [address] [place] [address] 04/12/2014 11:13:33 04/12/2014 11:52:39 Tachycardia 9144390 Renal diso rder due to type 2 diabetes mellitus 820042003 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 73956781 [id number] Main Office [address] [address] [place] [address] 06/26/2014 14:28:50 06/26/2014 15:25:36 Uncontrolled type 2 diabetes mellitus 272665803 Gout 57039123 [id number] Main Office [address] [address] [place] [address] 09/25/2014 12:48:58 09/25/2014 13:46:32 Uncontrolled type 2 diabetes mellitus 433780848 Chronic ki dney disease stage 1 669069309 Gout 00158532 [id number] Main Office [address] [address] [place] [address] 12/25/2014 12:40:02 12/25/2014 14:04:58 Renal disorder due to type 2 diabetes mellitus 516998626 Chronic ki dney disease stage 1 149667713 Gout 55917047 [id number] Main Office [address] [address] [place] [address] 04/09/2015 13:08:37 04/09/2015 14:08:54 Renal disorder due to type 2 diabetes mellitus 553552859 Hyperlipidemia 19683238 Needs infl uenza immunization 025660225 Chronic ki dney disease stage 1 465410937 Gout 92862639 [id number] Raheem García MD Main Office [address] [address] [place] [address] 07/13/2015 09:21:56 07/13/2015 10:28:30 Renal disorder due to type 2 diabetes mellitus 383140154 E11.29 Varicella vaccination 68 863346 Z23 Primary er ectile dysfunction 798336130 N52.9 [id number] Raheem García MD Main Office [address] [address] [place] [address] 07/31/2015 12:54:40 07/31/2015 14:11:16 Type 2 diabetes mellitus 16317198 E11.9 Uncontroll ed type 2 diabetes mellitus 602393535 E11.65 Uncontroll ed type II DM with renal manifestat ions. Total time spent teaching and coordinati ng care 45 min. Basic physiology of type II DM was reviewed. Pt. was advised to test glucose TID by rotating pre and 2 hr postmeal readings every other day. Targets for fasting and postprandi al readings were set. Pt. was advised on 2000 leisa ADA diet and advised to exercise daily by walking at least 30 min. Diabetic eye and foot care recommenda tions were reviewed. D/c Levemir. Start Toujeo SoloStar at 40 u daily. Continue oral antidiabet ics. F/u 2 weeks. Consider premeal insulin. DIsconitnu e regular soda. [id number] Raheem García MD Main Office [address] [facility] [address] [place] [address] 07/31/2015 13:44:46 07/31/2015 14:11:24 Renal disorder due to type 2 diabetes mellitus 278390147 E11.29 Total time spent teaching and coordinati ng care 45 min. Basic pathophysi ology of type II DM was reviewed. Pt. was advised to increase glucose testing frequency from 1 times daily to TID rotating every other day premeal and 2 hrpc. 1999 leisa ADA diet was reviewed and menues provided. Pt. was advised to see opthalmolo gist for diabetic eye exams yearly unless otherwise indicated more often. Diabetic foot care reviewed. D/c Levemir. Start Toujeo SoloStar at 40 u daily SC injections at HS daily. Continue oral antidiabet ics. Return in 6 weeks with log. [id number] Chelsey mendenhall Main Office [address] [facility] [address] [place] [address] 08/29/2015 12:48:13 08/29/2015 14:02:52 Uncontrolled type 2 diabetes mellitus 184573589 E11.65 UNcontroll ed DM with renal complicati ons. CKD stg 2-3 by GFR and mild microalbum inuria. A1c is improved , but modestly from 9.1 to 8.7%. Pt. does not monitor postprandi ally and I am asking him to start testing 2 hrpc for the next visit. Increase Toujeo to 45 u daily. Start Apidra SoloSTar at 5 u in am and at lunch and 10 at supper. HYpoglycem ia reviewed how to manage. Pt. is advised against skipping or delaying main meals. F/u 3 weeks with glucose log. Renal diso rder due to type 2 diabetes mellitus 380709307 E11.29 Renal disease due to HTN and uncontroll ed DM> PT. is advised to increase hydration. Avoid NSAIDs and eatlow POtassium diet. Continue ACEI as directed. Continue working on improving glycemic control with goal A1c under 7%. [id number] Jose Bell MD Main Office [address] [facility] [address] [place] [address] 09/28/2015 13:43:12 09/28/2015 14:44:32 Renal disorder due to type 2 diabetes mellitus 884809981 E11.29 Renal disease due to HTN and uncontroll ed DM> PT. is advised to increase hydration. Avoid NSAIDs and eat low Potassium diet. Repeat BMP and microalbum in Continue ACEI as directed. Continue working on improving glycemic control with goal A1c under 7%. F/u 6 wks. Repeat BMP , microalb., and A1c before next visit. [id number] Raheem García MD Main Office [address] [place] [address] 12/05/2015 14:24:52 12/05/2015 15:05:58 Uncontrolled type 2 diabetes mellitus 310417550 E11.65 Uncontroll ed DM with renal complicati ons. Noncomplia nt to medicines and diet. Strongly advised to start HUmalog premeal at 10 u TID and increase Toujeo to 60 u daily at HS. Continue oral antidiabet ics and return as scheduled in December. Noncomplia nce with treatment 1668860 Z91.19 Hyperkalemia 53714620 E8 7.5 Secondary to chronic renal disease and ACEI. Stable at this point . Will f/u with nephrology as scheduled. Chronic ki dney disease stage 3 178805909 N18.3 [id number] Raheem García MD Main Office [address] [place] [address] 01/15/2016 13:48:04 01/15/2016 14:43:13 Adult health examination 654026405 Z00.00 Renal diso rder due to type 2 diabetes mellitus 539928192 E11.29 Gout 94873803 M10.9 Hyperlipidemia 19250162 E78.5 Body mass index 30+ - obesity 204575393 Z68.30 [id number] Raheem García MD Main Office [address] [address] [place] [address] 02/05/2016 13:46:17 02/05/2016 14:41:03 Uncontrolled type 2 diabetes mellitus 899783820 E11.65 Uncontroll ed DM with renal complicati ons. Noncomplia nt to using Humalog and testing TID. Strongly advised to start HUmalog premeal at 10 u TID and increase Toujeo to 60 u daily at HS. Continue oral antidiabet ics . F/u 6 weeks. Obesity 304424994 E66.9 Renal diso rder due to type 2 diabetes mellitus 195513036 E11.29 F/u with the nephrologi st as scheduled. BP is stable. [id number] Chelsey Mehul mendenhall Main Office [address] [facility] [address] [facility] [place] [address] 03/21/2016 15:21:07 03/21/2016 16:34:05 Impacted cerumen 29872424 H61.23 [id number] Raheem García MD Main Office [address] [facility] [address] [facility] [place] [address] 04/29/2016 15:12:17 04/29/2016 16:43:53 Uncontrolled type 2 diabetes mellitus 043190358 E11.65 Uncontroll ed DM with renal complicati ons. Noncomplia nt to using Humalog and testing TID. Strongly advised to start HUmalog premeal at 10 u TID and increase Toujeo to 65 u daily at HS. Continue oral antidiabet ics . ? if taking Glipizide or not. F/u 2 months. Needs infl uenza immunization 348200237 Z23 Renal diso rder due to type 2 diabetes mellitus 089170180 E11.29 F/u with the nephrologi st as scheduled. BP is stable. Chronic ki dney disease stage 3 685860627 N18.3 [id number] Raheem García MD Main Office [address] [facility] [address] [place] [address] 09/01/2016 14:24:47 09/01/2016 15:22:08 Uncontrolled type 2 diabetes mellitus 646364792 E11.65 Increase Toujeo to 75 u daily. Start using Humalog premeal as discussed at 10 u in am and at lunch and 15 before dinner. Test glucose 2 hrpc until next visit. Lower total calories and start exercise acitvity as discussed. Retest BMP and microalbum in. Renal diso rder due to type 2 diabetes mellitus 131365016 E11.29 F/u with the nephrologi st as scheduled in September. BP is stable. Noncomplia nce with treatment 4043514 Z91.19 Discussed ion length . TOtal time of visit 35 minutes. Body mass index 30+ - obesity 855897663 Z68.31 [id number] Raheem García MD Main Office [address] [address] [place] [address] 12/15/2016 14:22:23 12/15/2016 15:07:26 Uncontrolled type 2 diabetes mellitus 736251430 E11.65 Compliance with premeal insulin is poor. Overall diabetic control is worsening. Will continue TOujeo at 70 u daily. Add Victoza at 0.6 mg daily SC for 1 week,. then if tolerated go to 1.2 mg. F/u 4-6 weeks with log. Renal diso rder due to type 2 diabetes mellitus 654664383 E11.29 F/u with the nephrologi st as scheduled in September. BP is stable. Chronic ki dney disease stage 3 832349800 N18.3 f/u with the nephrologi st as scheduled. Noncomplia nce with treatment 5570027 Z91.19 Discussed ion length . TOtal time of visit 35 minutes. Body mass index 30+ - obesity 522292917 Z68.30 [id number] Peter Gonzales Main Office [address] [address] [place] [address] 12/24/2016 12:01:17 12/26/2016 12:14:38 [id number] Raheem García MD Main Office [address] [address] [place] [address] 01/05/2017 10:55:52 01/05/2017 12:12:38 Acute injury of kidney 4144411318 0504718 N17.9 F/u with nephrologi st as scheduled this afternoon. Labs to be done this afternoon. Renal diso rder due to type 2 diabetes mellitus 038120422 E11.29 Continue Toujeo at 75 u daily. Start HUmalog at 5 u TID premeal. Test glucose TID premeal. Continue low carb diet and return with log in 4 weeks. LOwer GLipizide ER to 5 mg daily to avoid hypoglycem ia. Chronic ki dney disease stage 3 505573945 N18.3 f/u with the nephrologi st as scheduled. [id number] Raheem García MD Main Office [address] [address] [place] [address] 01/15/2017 13:46:35 01/15/2017 14:51:16 Adult health examination 648525595 Z00.00 Varicella vaccination 68 973841 Z23 Screening for malignant neoplasm of colon 945697997 Z12.11 Displaceme nt of lumbar intervertebral disc without myelopathy 96962045 M51.26 Followed as needed by [facility] Proteinuria 55755207 R80 .9 Renal diso rder due to type 2 diabetes mellitus 227551194 E11.29 Continues close follow up to improve blood sugar control Chronic ki dney disease stage 3 743520840 N18.[address] Martínez for renal [id number] Raheem García MD Main Office [address] [address] 02/16/2017 14:02:59 02/16/2017 14:44:01 Renal disorder due to type 2 diabetes mellitus 078928083 E11.29 Continue Toujeo at 74 u daily. Humalog at 5-10 u TID premeal. Test glucose TID premeal. Restart Metfromin ER 500 mg 2 po qd with supper. Lower total calories and increase exercise activity. F/u 6 weeks with repeat A1c. Chronic ki dney disease stage 3 522072119 N18.3 just was seen by nephrologi st . STable condition. Body mass index 30+ - obesity 625217066 Z68.31 [id number] Raheem García MD Main Office [address] [address] 04/01/2017 13:38:26 04/01/2017 15:02:23 Renal disorder due to type 2 diabetes mellitus 360267965 E11.29 Improve consistenc y of pre-prandi al 10 U Humalog. Discussed that if you forget to inject humalog prior to meals, can inject at 5 U during or after eating which may help. Lower total calories, fat intake and increase exercise activity. Improve consistenc y with diet. F/u 6 weeks with repeat A1c. Increase Toujeo to 80 U. Needs infl uenza immunization 898962905 Z23 Body mass index 30+ - obesity 711291728 Z68.31 Improve diet - decrease fats, caloric intake and salt intake. Increase exercise. Proteinuria 20389316 R80 .9 Just seen by Nephrologi st. Stable condition. Chronic ki dney disease stage 3 662977290 N18.3 Just was seen by nephrologi . Stable condition. [id number] Chapito Paz MD Main Office [address] [facility] [address] [place] [address] 05/13/2017 13:39:04 05/13/2017 14:43:09 Renal disorder due to type 2 diabetes mellitus 413740588 E11.22 Current on meds, asymptomat ic. Glucose readings stable, A1c last checked in 04/01/17 at 10.0, will reassess prior to net visit in 6 wks renal disease stable. seen by nephrologi Chronic ki dney disease stage 3 805729639 N18.3 stable. seen by nephrologi Impacted cerumen 5973301 6 H61.23 cerumen obstructio n present bilaterall y, more prominent on L ear Hyperlipidemia 49372796 E78.1 Body mass index 30+ - obesity 568020239 E66.9 Z68.31 [id number] Raheem García MD Main Office [address] [facility] [address] [place] [address] 07/10/2017 10:54:28 07/10/2017 12:02:12 Renal disorder due to type 2 diabetes mellitus 190580965 E11.22 STable CKD stg 3 diabetic and hypertensi ve. Needs better diabetic control, but struggles with inconsiste ncy in diet and premeal insulin injection. WE discussed that again and will continue trying to improve those issues. He will be seen by nephrologi in 3 m and by me at around the same time for diabetic f/u. He was advised to take 1-2 weeks and test 2 hrpc to do revision on his Humalog dosage. Toujeo is advised at 80 u daily. Chronic ki dney disease stage 3 442901412 N18.3 stable. seen by nephrologbart bill. Labs are done at nephrologi office. Administra tion of pneumococcal vaccine 69189601 Z23 Body mass index 30+ - obesity 953296440 E66.9 Z68.35 Z68.30 [id number] Hadley chery Main Office [address] [facility] [address] [place] [address] 12/08/2017 15:00:07 12/08/2017 15:45:19 Renal disorder due to type 2 diabetes mellitus 872412724 E11.22 STable CKD stg 3 diabetic and hypertensi ve. Needs better diabetic control, but struggles with consistenc y in diet and premeal insulin injection. WE discussed that again and will continue trying to improve those issues. Pt. was seen by the nephrologi 2 weeks ago and had labs and A1c done there. He was advised to take 1-2 weeks and test 2 hrpc to do revision on his Humalog dosage. Toujeo is advised at 84 u daily. HUmalog add additional 3 u to sliding scale. Continue testing. F/u with log in 4 weeks. Chronic ki dney disease stage 3 228671168 N18.3 stable. seen by nephrologi . Labs are done at nephrologi office. Body mass index 25-29 - overweight 905175983 E66.3 Z68.28 [id number] Hadley chery Main Office [address] [facility] [address] [facility] [place] [address] 01/26/2018 09:26:49 01/26/2018 10:45:39 Renal disorder due to type 2 diabetes mellitus 499786099 E11.22 STable CKD stg 3 disease. [facility] labs [facility]. Diabetic control worsened due to insulin cost. Pt. could not afford increase in cost and discontinu ed using insulins. I gave him couple of coupons to try and samples. Restrt Toujeo at 85 u daily and HUmalog at 15 u TID. Continue oral meds. F/u 6 weeks with log. Consider CGM with Jam Pro for 14 days. Chronic ki dney disease stage 3 413509013 N18.3 [facility]. [facility] Labs are done at nephrologi office. [id number] Raheem García MD Main Office [address] [facility] [address] [facility] [place] [address] 03/05/2018 12:46:45 03/05/2018 13:48:52 Hepatitis C screening 708608020 Z11.59 Active or passive immunization 414651928 Z23 Adult heal th examination 492645880 Z00.00 Renal diso rder due to type 2 diabetes mellitus 748331181 E11.29 Continues close follow up to improve blood sugar control Screening for malignant neoplasm of colon 509107507 Z12.11 Administra tion of pneumococcal vaccine 89478272 Z23 Displaceme nt of lumbar intervertebral disc without myelopathy 02478643 M51.26 Followed as needed by [facility] Chronic ki dney disease stage 3 527219628 N18.[address] Martínez for renal [id number] Raheem García MD Main Office [address] [facility] [address] [place] [address] 04/16/2018 14:32:14 04/16/2018 15:26:03 Renal disorder due to type 2 diabetes mellitus 714758642 E11.22 Stable CKD stg 3 disease. REcom. to schedule bryn with Dr. Martínez for f/u. Schedule diabetic eye exam bryn.Pt. is chronicall y noncomplia nt to both meds and insulin injections . Discussed this again with him today. I advised him strongly to use premeal insulin at 15 u TID and increase Toujeo to 90 u daily. F/u 6 weeks with log. Needs infl uenza immunization 565697772 Z23 Chronic ki dney disease stage 3 328731895 N18.3 Body mass index 25-29 - overweight 921654183 E66.3 Z68.25 Z68.29 Noncomplia nce with therapeutic regimen 687359847 Z91.19 Diabetic on insulin 1707 80320 E11.9 Z79.4 [id number] Raheem García MD Main Office [address] [facility] [address] [place] [address] 09/20/2018 14:29:18 09/20/2018 15:48:17 Renal disorder due to type 2 diabetes mellitus 936371082 E11.22 Pt. is noncomplia nt to medical treatment due to medicine cost and also usually forgets to inject premeal insulin and does not like to carry syringes with him due to his work. He is recommende d to be started on V-Go TYpe II diabetic pump with continuous infusion of insulin which will hopefully address compliance and assure premeal bolus use. Pt. is interested in it. I will make sure he is scheduled with endocrinol ogist to get started on it. IN the mean time, he is advised to eliminate all soda and juice , concentrat ed sweets , inject Toujeo at 90 u daily. [place] is leaving for [place] 23 days in September. Metformin he will remain on renal dosage of 1000 mg daily. Repeat BMP prior to seeing renal. F/u with PCP in 3-4 m. Chronic ki dney disease stage 3 365067236 N18.3 Noncomplia nce with therapeutic regimen 634840209 Z91.19 Diabetic on insulin 1707 32102 E11.9 Z79.4 [id number] Raheem García MD Main Office [address] [address] [place] [address] 04/15/2019 15:10:15 04/15/2019 16:44:44 Adult health examination 499984284 Z00.00 Influenza vaccine needed 2957172398 106 Z23 Administra tion of pneumococcal vaccine 42963691 Z23 Renal diso rder due to type 2 diabetes mellitus 152231617 E11.29 followed by [facility] in [place], [place]. HbA1c was 9.3% on 04/04/2019 . Screening for malignant neoplasm of colon 683435848 Z12.11 Screening for malignant neoplasm of prostate 229118508 Z12.5 [id number] Raheem García MD Main Office [address] [place] [address] 06/04/2020 14:46:40 06/04/2020 16:05:14 Adult health examination 867322901 Z00.00 Influenza vaccine needed 9241953941 106 Z23 Renal diso rder due to type 2 diabetes mellitus 497470359 E11.22 Continue quarterly follow-up of serum creatinine , blood pressure, glycemic control. Followed by renal (Kranthi). Chronic ki dney disease stage 3 668487005 N18.30 Renal hypertension 77562 000 I12.9 Medication s reviewed. Will continue present medication s or changes as indicated. Follow home BP. Gout 10358449 M10.9 Diabetic on insulin 1707 48359 Z79.4 Poor short -term memory 149636672 R41.3 Failed cognitive screening. Declines workup. Feels he has not problems with memory. [id number] Raheem García MD [facility] [address] [place] [address] 01/04/2021 09:10:39 01/04/2021 14:44:18 Iliopsoas bursitis of right hip 5923726180 682574 M70.71 [id number] Vivi De MD Main Office [address] [place] [address] 06/18/2021 13:02:00 06/18/2021 13:55:14 Chronic kidney disease stage [address] Martínez advised regular follow up. Renal diso rder due to type 2 diabetes mellitus 991565563 E11.22 N18.32 [facility] diabetesLa a1c 06/18/21: 13.1tx per endo.Ons statin.Oph thalmology exam discussedF mark anth[facility] Dr. Max burnham [facility] Endocrinol ogyLipid profile orderedCou nselled about regular physical activityCo unselled on dietAdvise d regarding risks/sign s/symptoms of hypoglycem ia. Counseled to carry a snack in case of emergencie sAdvised to check fingerstic k glucose at homeRegual r Dental visit advised.Nu tritionist Follows with endoPodiat ry consult provided Adult heal th examination 293267681 Z00.00 Patient was counseled on healthy diet, exercise and nutrition due to Body mass index is 30.4 kg/m? ? ?. Last PSADate:Re sult:Plan: had shared discussion patient to hold screen understand risk. Last Colonoscop y:Date: 09/15/2019R esult: acute colitisPla n: tells me next due in 10yrs, Vaccines:T dAP: 07/23/12Zo ster:scrip t providedPC V13: 03/05/18PPS V23: 07/23/12, 04/15/19Inf luenza: 06/18/21Co vid: 08/17/20, 09/14/20, plans to get the third. Routine labs today Immunizati on status reviewed. Will screen based on risk factors. Regular dental and ophtho care advised as well as seat belt and sunscreen use. Distracted driving discussed. Medication reconciled . Advance directives discussed. Influenza vaccine needed 9013032679 106 Z23 Fatigue 32130893 R53.83 Hyperlipidemia 33541950 E78.5 Hypomagnesemia 645193412 E83.42 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 51057547 D64.9 Advance di rective discussed with patient 354112309 Z71.89 MOLST/HCP provided and discussed. Gout 89287588 M10.9 Colitis 70809354 K52.9 Impacted c erumen of bilateral ears [id number] 188213 H61.23 [id number] Kavita Pierre MA Main Office [address] [facility] [address] [facility] [place] [address] 10/02/2021 14:12:30 10/02/2021 14:47:26 Chronic kidney disease stage [address] Martínez advised regular follow up. Renal diso rder due to type 2 diabetes mellitus 031751619 E11.22 Follows [facility] end[facility] for diabetesLa st a1c 06/18/: 13.1tx per endo.On statin.Oph thalmology exam discussed [address] Max burnham [facility] Endocrinol ogyLipid profile orderedCou nselled about regular physical activityCo unselled on dietAdvise d regarding risks/sign s/symptoms of hypoglycem ia. Counseled to carry a snack in case of emergencie sAdvised to check fingerstic k glucose at homeregula r Dental visit advised.Nu tritionist Follows with endoPodiat ry consult provided Skin lesion 68727069 L98 .9 Pearly lesion on left ear does not use spf.Possib le BCC, vs skin tag will make urgent referral derm. Hypertensi ve renal disease 41395420 I12.9 Low sodium diet discussedC ounseled on medication adherenceC ounseled on diet/exerc iseDoes not check bp at homeRed flags of HTN emergency discussed and when to go to ED. [id number] Vivi De MD Main Office [address] [facility] [address] [place] [address] 12/09/2021 12:51:48 12/09/2021 13:30:05 Acute hyperkalemia 7052244 E87.5 Has kayexalate for nephro, was supposed to use and admitted to not use it.Has note seen renal since last fall - advised follow upHe is asymptomat ic, will hold ecg for now.Sugar controlled discussed. Renal diso rder due to type 2 diabetes mellitus 362604859 E11.22 Follows [facility] endo for diabetesHb a1d donetx per endo.On statin.Oph thalmology exam discussed [address] Max burnham [facility] Endocrinol ogyLipid profile orderedCou nselled about regular physical activityCo unselled on dietAdvise d regarding risks/sign s/symptoms of hypoglycem ia. Counseled to carry a snack in case of emergencie sAdvised to check fingerstic k glucose at homeregula r Dental visit advised.Nu tritionist Follows with endoPodiat ry consult provided Chronic ki dney disease stage [address] Martínez advised regular follow up. Hypertensi ve renal disease 84862464 I12.9 Low sodium diet discussedC ounseled on medication adherenceC ounseled on diet/exerc iseDoes not check bp at homeRed flags of HTN emergency discussed and when to go to ED. Skin lesion 43134284 L98 .9 S/p resection follow derms. Adhesive c apsulitis of shoulder 891600228 M75.01 M75.02 Anemia of chronic disease 738879429 D63.8 Will continue to monitor cbc. 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 74745958 D64.9 Will continue to monitor in 3 mo visit. [id number] Dalia Joya Main Office [address] [facility] [address] [facility] [place] [address] 03/05/2022 14:01:11 03/05/2022 15:22:09 Partial thickness burn of lower limb 24078859 T24.201A pt is a diabetic, will start antibiotic s to cover for infection. Use silvadene cream bid, mostly on any open areas, avoid maceration . Keep covered when out, can use light covering at home. Call if not improving or if worsening. Requires a tetanus booster 970010018 Z23 due for Td booster [id number] Vivi De MD Main Office [address] [facility] [address] [facility] [place] [address] 03/17/2022 14:29:22 03/17/2022 15:32:37 Renal disorder due to type 2 diabetes mellitus 724441790 E11.22 Follows [facility] endo for diabetesHb a1d done currently 9.9 (was 8.6)tx per endo. (humalog 15 units TID, tresiba 65 units), will make appointmen t for septemberO n statin.Oph thalmology exam seen in 10/2021Fol lows Renal Dr. Max burnham [facility] last see in 10/15Lipid profile orderedCou nselled about regular physical activityCo unselled on dietAdvise d regarding risks/sign s/symptoms of hypoglycem ia. Counseled to carry a snack in case of emergencie sAdvised to check fingerstic k glucose at homeregula r Dental visit advised does not have one -> counselled on seeing (pt mentions he has no teeth, wants to wait till Hb is 7/controll ed)Nutriti onist Follows with endoPodiat ry consult not currently interested in seeing one Chronic ki dney disease stage [address] Martínez advised regular follow up. Hypertensi ve renal disease 31239743 I12.9 Low sodium diet discussedC ounseled on medication adherence - [facility] order.Coun seled on diet/exerc iseDoes not check bp at homeRed flags of HTN emergency discussed and when to go to ED.Notes home BP wnl. Anemia of chronic disease 280166929 D63.8 Will continue to monitor cbc at annual. 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 47907774 D64.9 Will continue to monitor in 3 mo visit. Essential hypertension 32262975 I10 Edema of l ower extremity 766457652 R60.0 compressio n stocking advised [id number] Leigh Ann Quinteros PA-C Main Office [address] [facility] [address] [place] [address] 05/27/2022 13:44:10 05/27/2022 14:20:42 Pneumonitis 249400668 J18.9 Begin zithromax at 500 mg daily for 1 week. Pt. is advised to take Mucinex for cough. [id number] Felicita Cai Main Office [address] [facility] [address] [place] [address] 07/15/2022 14:17:14 07/15/2022 15:35:02 Renal disorder due to type 2 diabetes mellitus 407478633 E11.22 Follows [facility] endo for diabetesHb a1d orderedtx per endo. (humalog 15 units TID, tresiba 65 units), reminded to reach out to endo.On statin.Oph thalmology exam seen in 10/2021Fouyen lazar Renal Dr. Max burnham [facility] last see in 10/15Lipid profile orderedCou nselled about regular physical activityCo unselled on dietAdvise d regarding risks/sign s/symptoms of hypoglycem ia. Counseled to carry a snack in case of emergencie sAdvised to check fingerstic k glucose at homeregula r Dental visit advised does not have one -> counselled on seeing (pt mentions he has no teeth, wants to wait till Hb is 7/controll ed)Nutriti onist Follows with endoPodiat ry consult not currently interested in seeing one Chronic ki dney disease stage [address] Martínez advised regular follow up. Hypertensi ve renal disease 20294328 I12.9 Low sodium diet discussedC ounseled on medication adherence - [facility] order.Coun seled on diet/exerc iseDoes not check bp at homeRed flags of HTN emergency discussed and when to go to ED.Notes home BP wnl. Anemia of chronic disease 132094488 D63.8 Will continue to monitor cbc at annual. Edema of l ower extremity 293351744 R60.0 compressio n stocking advised Adult heal th examination 267059220 Z00.00 Patient was counseled on healthy diet, exercise and nutrition due to Body mass index is 31.6 kg/m? ? ?. Last PSADate:Re sult:Plan: had shared discussion patient to hold screen understand risk. Last Colonoscop y:Date: 09/15/2019R esult: acute colitisPla n: tells me next due in 10 yrs, Vaccines:T dAP: due, script providedZo ster:scrip t providedPC V13: 03/05/18PPS V23: 07/23/12, 04/15/19Inf luenza: 06/12/22Co vid: 08/17/20, 09/14/20, 06/23/21, bivalent advised. Routine labs today Immunizati on status reviewed. Will screen based on risk factors. Regular dental and ophtho care advised as well as seat belt and sunscreen use. Distracted driving discussed. Medication reconciled . Advance directives discussed. Fatigue 92037324 R53.83 Hyperlipidemia 93289569 E78.5 Hypomagnesemia 738010183 E83.42 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 43451142 D64.9 Will continue to monitor in 3 mo visit. Advance di rective discussed with patient 930229975 Z71.89 MOLST/HCP provided and discussed. Gout 50691560 M10.9 Impacted c erumen of bilateral ears 0723680531 431313 H61.23 Administra tion of viral vaccine 19786384 Z23 Varicella vaccination 68 253581 Z23 [id number] Azra Torres MA Main Office [address] [facility] [address] [facility] [place] [address] 04/10/2023 12:52:49 04/10/2023 13:49:56 Renal disorder due to type 2 diabetes mellitus 713207377 E11.22 Follows [facility] for diabetestx per endo. (humalog 15 units TID, tresiba 65 units), reminded to reach out to endo.Will stop Pioglitazo ne and have care per Endo perhaps he might be a good candidate for GLP1 vs SGLT 2.Tells me last a1c at [facility] was 6.8On statin.Oph thalmology exam has apt end apr.Follow s Renal Dr. Max burnham [facility] last see in 12/24/2022 Lipid profile orderedCou nselled about regular physical activityCo unselled on dietAdvise d regarding risks/sign s/symptoms of hypoglycem ia. Counseled to carry a snack in case of emergencie sAdvised to check fingerstic k glucose at homeregula r Dental visit advised does not have one -> counselled on seeing (pt mentions he has no teeth, wants to wait till Hb is 7/controll ed)Nutriti onist Follows with endoPodiat ry consult not currently interested in seeing one Hypertensi ve renal disease 10580270 I12.9 bp soft will hold amlodipine . Advised to check bp. Chronic ki dney disease stage [address] Martínez advised regular follow up. Edema of l ower extremity 309011433 R60.0 compressio n stocking advised Insomnia 881983043 G47.0 0 Pericardial effusion 373 568919 I31.39 Likely 2/2 to fluid overload, now on HD. Influenza vaccine needed 3614076634 106 Z23 Abrasion 324759293 T14.8 XXA Right 4th toe, no warmth or fluctuance , no drainage, area cleaned and bacitracin placed and bandage. Advised daily wound check. Call if no improvemen t. Also advised to follow podiatry. [id number] Felicita Cai Main Office [address] [facility] [address] [facility] [place] [address] 08/17/2023 14:49:27 08/17/2023 16:07:35 Adult health examination 440270108 Z00.00 Patient was counseled on healthy diet, exercise and nutrition due to Body mass index is 31.6 kg/m? ? ?. Last PSADate: 12/06/21Res ult: 1.5Plan: wants to stop screening. Last Colonoscop y:Date: 09/15/2019R esult: acute colitisPla n: tells me next due in 10 yrs, Vaccines:T d: 03/05/22Zos ter rec:script provided [id number] : 03/05/18PPS V23: 07/23/12, 04/15/19PCV 20: DiscussedI nfluenza: 04/10/23Cov id: 08/17/20, 09/14/20, 06/23/21, encourage updated vaccineRSV : Discussed Routine labs today Immunizati on status reviewed. Will screen based on risk factors. Regular dental and ophtho care advised as well as seat belt and sunscreen use. Distracted driving discussed. Medication reconciled . Advance directives discussed. Advance di rective discussed with patient 174712633 Z71.89 MOLST/HCP provided and discussed. Administra tion of pneumococcal vaccine 06084360 Z23 Administra tion of viral vaccine 93594517 Z29.11 Chronic ki dney disease stage [address] Martínez advised regular follow up. Renal diso rder due to type 2 diabetes mellitus 442748837 E11.22 tx per [facility], a1c/microa lbumin ordered, will fax to endo along with CMP and lipids.Yesaturnino rly Ophthalmol ogy exam advisedFol cady Renal Dr. Gallo burnham [facility] last see in 12/24/2022 Lipid profile ordered - On statin.Cou nselled about regular physical activityCo unselled on dietAdvise d regarding risks/sign s/symptoms of hypoglycem ia. Counseled to carry a snack in case of emergencie sAdvised to check fingerstic k glucose at home Diabetic on insulin 1707 97751 Z79.4 Fatigue 00579182 R53.83 Z00.00 Hyperlipidemia 51414085 E78.5 Z00.00 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 74889543 D64.9 Will continue to monitor in 3 mo visit. Varicella vaccination 68 242418 Z23 Gout 96281570 M10.9 Hyperkalemia 75400281 E8 7.5 Insomnia 479068916 G47.0 0 Noncomplia nce with therapeutic regimen 939973541 Z91.199 Venereal d isease screening 249628633 Z20.2 Z11.3 [id number] Vivi De MD Main Office [address] [facility] [address] [facility] [place] [address] 11/24/2023 15:25:07 11/24/2023 16:18:16 Vitamin D deficiency 69360271 E55.9 on supplement ation Insomnia 498473137 G47.0 0 Reviewed the risk of benzo use. Will continue current regimen till he is evaluated by sleep medicine.C ontrol substance completed. Displaceme nt of lumbar intervertebral disc without myelopathy 06849260 M51.26 Follows pain management Chronic ki dney disease stage 4 340978415 N18.4 Cont. renal follow up. Hypertensi ve renal disease 37270506 I12.9 Stable on current regimen. Renal diso rder due to type 2 diabetes mellitus 209012281 E11.22 Follows [facility]. History of calculus of kidney 552440904 Z87.[address] he had done by urology reveals he has cleared renal stone [id number] Felicita Cai Main Office [address] [facility] [address] [facility] [place] [address] 12/15/2023 13:23:53 12/15/2023 13:53:43 Acute conjunctivitis 53792785 H10.33 Allergic conjunctivitis 476298549 H10.13 Allergic rhinitis 934624 04 J30.9 Trigger fi nger of left hand 8284442819 5467841 M65.312 [id number] Chapito Paz MD Main Office [address] [facility] 207 [facility] [address] 02/24/2024 13:21:08 02/24/2024 14:18:03 Fatigue 79794397 R53.83 No clear etiology. Possible infectious although his only symptoms is fatigue. Does not appear to be mood related. [id number] Felicita Cai Main Office [address] [place] [address] [place] [address] 03/01/2024 13:49:15 03/01/2024 14:47:08 Fatigue 62747991 R53.83 Z00.00 Alkaline p hosphatase above reference range 377870414 R74.8 Hypertensi ve renal disease 63361064 I12.9 Chronic ki dney disease stage 4 844955815 N18.4 Cont. renal follow up. [id number] Felicita Cai Main Office [address] [place] [address] [place] [address] 03/07/2024 10:48:01 03/07/2024 11:37:38 Hyperglycemia due to type 2 diabetes mellitus 7978708491 32530 E11.65 Insulin tr eated type 2 diabetes mellitus 214668944 Z79.4 Liver enzy mes level above reference range 381850832 R74.01 Vitamin D deficiency 347 00958 E55.9 on supplement ation, compliance discussed. Urinary tr act infectious disease 17661325 N39.0 -Has fatigue could be uti, will renally dose with levaquin every other day.-Advis ed to monitor glucose.-H ydration enforced. Hyperkalemia 63610651 E8 7.5 -ECG done 03/01/24 visit. Insomnia 109685983 G47.0 0 Reviewed the risk of benzo use. Will continue current regimen till, advised to follow up with sleep medicine for sleep study. Hypertensi ve renal disease 87060440 I12.9 Advised to increase amlodipine to 2 (2.5mg) he has a follow up with renal in 2 weeks. Advised to monitor to bp then. I will re-check with him in 1 week. Chronic ki dney disease stage 4 028862850 N18.4 Cont. renal follow up. [id number] Vivi De MD Main Office [address] [place] [address] [place] [address] 04/11/2024 10:54:20 04/11/2024 12:28:00 Hyperglycemia due to type 2 diabetes mellitus 2681426107 28632 E11.65 Follows endo. Insulin tr eated type 2 diabetes mellitus 163196165 Z79.4 Liver enzy mes level above reference range 043599815 R74.01 Vitamin D deficiency 347 52403 E55.9 on supplement ation followed by renal. Insomnia 134381867 G47.0 0 -Reviewed the risk of benzo use. Will continue current regimen, Advised to follow up with sleep medicine for sleep study. Hypertensi ve renal disease 79691146 I12.9 Advised to increase amlodipine to 2 (2.5mg) he has a follow up with renal in 2 weeks. Advised to monitor to bp then. I will re-check with him in 1 week. Chronic ki dney disease stage 4 652713837 N18.4 Cont. renal follow up. Influenza vaccine needed 5631130130 106 Z23 65 YEARS AND OLDER Urinary tr act infectious disease 51569358 N39.0 Resolved after tx. [id number] Vivi De MD Main Office [address] [facility] [address] [place] [address] 05/17/2024 14:27:11 05/17/2024 15:24:40 Ulcer of foot 73003588 L97.919 He is a diabetic, will cover with abx (bactrim), Granulatio n tissue noted. Area marked 5.5x5.5 cm.CrCl > 30 , Calculated with January 2024 Cr, calculated to be 33.Advised to keep area clean and dry.Angel r protection with Vaseline.A void pedicure.R eferral to news anchor provided.Vaibhav alfredo glycemic control encouraged Follow up 1 week. [id number] Felicita Cai Main Office [address] [facility] [address] [place] [address] 05/27/2024 15:08:01 05/27/2024 15:44:58 Ulcer of foot 54834928 L97.919 Area is healing well has granulatio n tissue.He did not see news anchor . I will refer to wound clinic due to compliance issues and the fact that he is a diabetic,N o further abx needed at this time.Encou raged glycemic control.En couraged to keep the area covered and protected. [id number] Chapito Paz MD Main Office [address] [facility] [address] [place] [address] 08/03/2024 14:24:21 08/03/2024 15:28:21 Edema of lower extremity 000256902 R60.0 This is most likely related to his kidney disease. Will recheck kidney labs and will also check a proBNP. Heart failure is a possibilit y but will hold off on an ECHO. Doubt DVT since both LE's are involved. We discussed a reduced salt diet as well as elevation. [id number] Vivi De MD Main Office [address] [facility] [address] [facility] [place] [address] 08/22/2024 15:00:03 08/22/2024 16:16:31 Adult health examination 545764864 Z00.00 Patient was counseled on healthy diet, exercise and nutrition due to Body mass index is 30.6 kg/m? ? ?. Last PSADate: 03/01/24Resu lt: 2.9Plan: past age for screening Last Colonoscop y:Date: 09/15/2019R esult: acute colitisPla n: tells me next due in 10 yrs, Vaccines:T d: 03/05/22Zos ter rec: Script provided [id number] : 03/05/18PPS V23: 07/23/12, 04/15/19PCV 20: DiscussedI nfluenza: 04/11/24Cov id: encourage updated vaccineRSV : Discussed Routine labs today Immunizati on status reviewed. Will screen based on risk factors. Regular dental and ophtho care advised as well as seat belt and sunscreen use. Distracted driving discussed. Medication reconciled . Advance directives discussed. Advance di rective discussed with patient 249127477 Z71.89 MOLST/HCP provided and discussed. Renal diso rder due to type 2 diabetes mellitus 464814057 E11.22 tx per [facility], microalbum in ordered, will fax to endo along with CMP and lipids.Yea rly Ophthalmol ogy exam advisedFol lows Renal Dr. Rodolfo mishra profile ordered - On statin.Cou nselled about regular physical activityCo unselled on dietAdvise d regarding risks/sign s/symptoms of hypoglycem ia. Counseled to carry a snack in case of emergencie sAdvised to check fingerstic k glucose at home Diabetic on insulin 1707 68342 Z79.4 Hyperlipidemia 83014606 E78.5 Z00.00 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 45573275 D64.9 Will continue to monitor in 3 mo visit. Gout 96001816 M10.9 Hyperkalemia 43916621 E8 7.5 Fatigue 60575072 R53.83 Z00.00 Insomnia 903250738 G47.0 0 -Reviewed the risk of benzo use. Will continue current regimen, Advised to follow up with sleep medicine for sleep study. Varicella vaccination 68 608460 Z23 Chronic ki dney disease stage [address] Martínez advised regular follow up. Alkaline p hosphatase above reference range 289698746 R74.8 Vitamin D deficiency 347 80055 E55.9 on supplement ation followed by renal. Hypertensi ve renal disease 20730275 I12.9 Bp elevated increase amlodipine to 10mg. Follow up 1 mo. Health Concerns Section Related Observation LastModified by Organization Detai ls LastModified Time None Recorded Concern Status LastModified by Organization Details LastModified Time None Recorded Advance Directives Directive Y: Anne-Marie Edilson (sister) Payers Encounter Date Sequence Insurance Name Policy Number Policy Frederick Covered Member ID Frederick Member ID Guarantor Name 04/11/[address] [facility] (MEDICARE REPLACEMENT/A DVANTAGE - PPO) [id number] Ryan Waggoner [id number] Ryan Waggnoer 05/17/[address] [facility] (MEDICARE REPLACEMENT/A DVANTAGE - PPO) [id number] Ryan Waggoner [id number] Ryan Waggoner 05/27/[address] [facility] (MEDICARE REPLACEMENT/A DVANTAGE - PPO) [id number] Ryan Waggoner [id number] Ryan Waggoner 08/03/[address] [facility] (MEDICARE REPLACEMENT/A DVANTAGE - PPO) [id number] Ryan Waggoner [id number] Ryan Waggoner 08/22/[address] [facility] (MEDICARE REPLACEMENT/A DVANTAGE - PPO) [id number] Ryan Waggoner [id number] Ryan Waggoner Notes Date Note Type Note Provider Name and Address Organization Details Recorded Time 04/11/2024 text/html Follow up om fatigue.-Notes fatigued improved has improved after being treated with UTI. Notes 100% better. Also notes sugar is better and has seen both endo and renal on kayexalate 1x/week. Vivi De MD [address] [facility] [address], [place], [address], [facility] [place] 04/11/2024 12:19:36 05/17/2024 text/html Skin LesionRepor eda bypatient.Location:fe et (R) Quality:sore; traumatize easily Duration:05/12Notes:T he patient presents with a laceration to the right foot. He recently had a pedicure on 05/12 and believes he was nicked by the callus file. He denies fever or chills and has been cleaning the wound with hand combatant diver qualified and applying cortisone cream. He reports that the wound is not draining, there is no warmth, and it appears to be decreasing in size. Vivi De MD [address] [facility] [address], [place], [address], [facility] [place]/18/2024 08:38:49 05/27/2024 text/html Follow up for r ankle wound check, healing well. Completed Bactrim, notes the wound size is decreasing, and improving, has not used anymore cortisone cream or hand combatant diver qualified. Did schedule a podiatry follow up. Felicita lucia, [facility] 06/08/2024 15:23:11 08/03/2024 text/html He has been havi ng swelling in both legs up to his thighs over the last 10 days. The swelling is almost gone in the am when he first gets up. He has stage 4 renal failure and was on dialysis in the past but this was stopped when he improved. He saw his renal doctor, Dr Crisostomo about 2 weeks ago. He is taking amlodipine 10 mg but has been on this med for awhile. He states that he eats a diet high in salt. He denies abdominal pain, CP or SOB. He also has diabetes which has had variable control. Chapito Paz MD [address] [facility] [address], [place], [address], [facility] [place] 08/03/2024 18:09:03 08/22/2024 text/html Medicare Annual Wellness VisitReported bypatient.Diet and Nutrition:healthy diet Fracture Risk:no sudden unexplained fractures; no previous musculoskeletal injuries Physical Activity:discussed weightbearing activities Depression Risk:see phq Orientation:no disorientation to time; no disorientation to date; no disorientation to place Speech/Motor difficulties:no speech difficulties Hearing:no loss of hearing Vision:no vision problems Activities of Daily Living:able to bathe with limited or no assistance; able to contol urination and bowels; able to dress with limited or no assistance; able to feed self with limited or no assistance; able to groom with limited or no assistance; able to toilet with limited or no assistance Instrumental Activities of Daily Living:able to do house work with limited or no assistance; able to grocery shop with limited or no assistance; able to manage medications with limited or no assistance; able to manage money with limited or no assistance; able to prepare meals with limited or no assistance; able to use the phone with limited or no assistance Falls Risk Assessment:no fall in the past year; no dizziness/vertigo Home Safety:reviewed sun protection; no unsafe prasanth hazzards; working smoke/CO detectors; use of seatbelts; no fire arms Here for PE visit. Reviewed chronic medications and medical problems. Discussed screening guidelines as well as goals for fitness and weight management. Following urology for renal stone. Sugars are still not at goal. Continues to work with [facility] renal for CKD4 Vivi De MD [address], [place], [id number], [facility] [place] 17:25:23
--- OUTSIDE RECORDS SUMMARY | 2024-10-26 10:26 | XMS_ITS | Clinical Summary ---
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 09/20/2024 Active Tresiba FlexTouch 100 UNIT/ML prefilled pen injection Inject 65 Units under the skin nightly. 10/06/2024 Active temazepam (RESTORIL) 15 MG capsule Take 1 capsule (15 mg total) by mouth nightly as needed for sleep. 09/30/2024 Active sodium bicarbonate 650 MG tabletIndication s:Acute hypoxic respiratory failure (HCC) Take 2 tablets (1,300 mg total) by mouth 2 (two) times a day. 120 tablet 10/22/2024 5 Active atorvastatin (LIPITOR) 40 MG tabletIndication s:Acute hypoxic respiratory failure (HCC) Take 1 tablet (40 mg total) by mouth daily. 30 tablet 10/22/2024 5 Active amLODIPine (NORVASC) 10 MG tabletIndication s:Acute hypoxic respiratory failure (HCC) Take 1 tablet (10 mg total) by mouth daily. 30 tablet 10/22/2024 5 Active predniSONE (DELTASONE) 10 MG tabletIndication s:Acute hypoxic respiratory failure (HCC) Take 40 mg (= 4 tablets) by mouth daily for 1 days, then 30 mg (= 3 tablets) daily for 1 days, then 20 mg (= 2 tablets) daily for 1 days, then 10 mg (= 1 tablet) daily for 1 days. Take with food. 20 tablet 10/22/2024 Active sevelamer carbonate (RENVELA) 0.8 g packetIndication s:Acute hypoxic respiratory failure (HCC) Take 1 packet (800 mg total) by mouth 3 (three) times a day with meals. 90 packet 10/22/2024 Active amLODIPine (NORVASC) 10 MG tablet Take 1 tablet (10 mg total) by mouth daily. 08/22/2024 5 Discontinued atorvastatin (LIPITOR) 40 MG tablet Take 1 tablet (40 mg total) by mouth daily. 09/14/2024 5 Discontinued calcitRIOL (ROCALTROL) 0.25 MCG capsule Take 1 capsule (0.25 mcg total) by mouth daily. 10/11/2024 5 Discontinued(Stop Taking at Discharge) cholecalciferol (CHOLECALCIFEROL ) 1.25 MG (16244 UT) capsule Take 1 capsule (50,000 Units total) by mouth once a week. 09/24/2024 Discontinued(Stop Taking at Discharge) gabapentin (NEURONTIN) 300 MG capsule Take 1 capsule (300 mg total) by mouth daily. 10/05/2024 Discontinued(Stop Taking at Discharge) magnesium oxide (MAG-OX) 400 MG tablet Take 1 tablet (400 mg total) by mouth daily. 09/09/2024 Discontinued(Stop Taking at Discharge) sodium bicarbonate 650 MG tablet Take 1 tablet (650 mg total) by mouth 2 (two) times a day. 07/24/2024 5 Discontinued(Stop Taking at Discharge) cefpodoxime (VANTIN) 200 MG tabletIndication s:Acute hypoxic respiratory failure (HCC),Pneumonia due to infectious organism, unspecified laterality, unspecified part of lung Take 1 tablet (200 mg total) by mouth daily. Do not start before October 23, 2024. 2 tablet 10/23/2024 Active Problems Problem Noted Date Diagnosed Date Acute hypoxic respiratory failure 10/18/2024 Encounters Date Type Department Care Team Description 10/18/2024 4:00 PM EDT Ancillary Procedure [facility] [address] [place] [address] Provider, File Room 10/18/2024 10:27 AM EDT - 10/22/2024 11:46 AM EDT Hospital Encounter [facility] [address] [id number] Marcelino Garcia MD Elias, Michael, MD Javed, MD Lucía Joshi Anita, MD Acute hypoxic respiratory failure (HCC) (Primary Dx); Pneumonia due to infectious organism, unspecified laterality, unspecified part of lung Discharge Disposition: Home or Self Care 10/17/2024 Orders Only [facility] [address] [facility] [place] [address] Provider, File Room from Last 3 Months Social History Tobacco Use Types Packs/Day Years Used Date Smoking Tobacco: Never Assessed [facility] Utilities Answer Date Recorded In the past 12 months has th e electric, gas, oil, or water company threatened to shut off services in your home? No 10/21/2024 AUDIT-C Answer Date Recorded Q1: How often do you have a drink containing alcohol? Never 10/20/2024 Q2: How many drinks containi ng alcohol do you have on a typical day when you are drinking? Patient does not drink Q3: How often do you have si x or more drinks on one occasion? Never 10/20/2024 Overall Financial Resource Strain (CARDIA) Answe r Date Recorded How hard is it for you to pa y for the very basics like food, housing, medical care, and heating? Not hard at all 10/21/2024 Hunger Vital Sign Answer Date Recorded Within the past 12 months, y ou worried that your food would run out before you got the money to buy more. Never true 10/22/19 25 Within the past 12 months, t he food you bought just didn't last and you didn't have money to get more. Never true 10/21/2024 PRAPARE - Transportation Answer Date Re corded In the past 12 months, has l ack of transportation kept you from medical appointments or from getting medications? No 09/25 In the past 12 months, has l ack of transportation kept you from meetings, work, or from getting things needed for daily living? No 10/21/2024 Housing Stability Vital Sign Answer Gerry e Recorded In the last 12 months, was t here a time when you were not able to pay the mortgage or rent on time? No 10/21/2024 In the past 12 months, how m any times have you moved where you were living? 1 10/21/2024 At any time in the past 12 m [facility], were you homeless or living in a fdc (including now)? No 10/21/2024 Sex and Gender Information Value Date Recorded Sex Assigned at Male 10/18/2024 10:24 AM EDT Gender Identity Male 10/18/2024 10:24 AM EDT Sexual Orientation Heterosexual (straight) 10/18 10:24 AM EDT Last Filed Vital Signs Vital Sign Reading Time Taken Comments Blood Pressure 162/70 10/22/2024 7:57 AM EDT Pulse 95 10/22/2024 7:57 AM EDT Temperature 36.7 ??C (98 ??F) 10/22/2024 7:57 AM EDT Respiratory Rate 16 10/22/2024 7:57 AM EDT Oxygen Saturation 94% 10/22/2024 11:25 AM EDT Inhaled Oxygen Concentration - - Weight 104 kg (230 lb 6.1 oz) 10/22/2024 6:00 AM EDT Height 180.3 cm (5' 11 ) 10/18/2024 2:32 PM EDT Body Mass Index 32.13 10/18/2024 2:32 PM EDT Plan of Treatment Health Maintenance Due Date Last Done Comments Hepatitis C Virus Screening 1955 DTaP/Tdap/Td Vaccines (1 - Tdap) 1972 Pneumococcal Vaccines 50+ (1 of 2 - PCV) 1972 Colonoscopy 1998 Zoster (Shingles) Vaccine (1 of 2) 2003 RSV Vaccine 60 years and older and Patients (1 - Risk 60-74 years 1-dose series) 2013 Influenza Vaccine 02/25/2024 06/12/2022, , 06/04/2020, Additional history exists COVID-19 Vaccine ( season) 2024 06/23/2021, 09/14/2020, 08/17/2020 Hepatitis B Vaccines Aged Out No long er eligible based on patient's age to complete this topic Procedures Procedure Name Priority Date/Time Associated Diagnosis Comments COMPLETE BLOOD COUNT, WITH DIFFERENTIAL Routine 10/22/2024 7:49 AM EDT BASIC METABOLIC PANEL Routine 10/22/2024 7:49 AM EDT POCT GLUCOSE, FINGERSTICK (POCGLU) (NO CHARGE) Routine 10/22/2024 7:42 AM EDT POCT GLUCOSE, FINGERSTICK (POCGLU) (NO CHARGE) Routine 10/21/2024 8:32 PM EDT POCT GLUCOSE, FINGERSTICK (POCGLU) (NO CHARGE) Routine 10/21/2024 4:38 PM EDT POCT GLUCOSE, FINGERSTICK (POCGLU) (NO CHARGE) Routine 10/21/2024 11:45 AM EDT POCT GLUCOSE, FINGERSTICK (POCGLU) (NO CHARGE) Routine 10/21/2024 8:07 AM EDT POCT GLUCOSE, FINGERSTICK (POCGLU) (NO CHARGE) Routine 10/20/2024 8:09 PM EDT POCT GLUCOSE, FINGERSTICK (POCGLU) (NO CHARGE) Routine 10/20/2024 4:31 PM EDT ECHOCARDIOGRAM (TTE) COMPREHENSIVE (CONTRAST PRN) Routine 10/20/2024 12:11 PM EDT POCT GLUCOSE, FINGERSTICK (POCGLU) (NO CHARGE) Routine 10/20/2024 12:02 PM EDT POCT GLUCOSE, FINGERSTICK (POCGLU) (NO CHARGE) Routine 10/20/2024 8:23 AM EDT COMPREHENSIVE METABOLIC PANEL Routine 10/20/2024 5:31 AM EDT MAGNESIUM Routine 10/20/2024 5:31 AM EDT COMPLETE BLOOD COUNT, WITH DIFFERENTIAL Routine 10/20/2024 5:31 AM EDT PHOSPHORUS Routine 10/20/2024 5:31 AM EDT POCT GLUCOSE, FINGERSTICK (POCGLU) (NO CHARGE) Routine 10/20/2024 3:19 AM EDT POCT GLUCOSE, FINGERSTICK (POCGLU) (NO CHARGE) Routine 10/19/2024 11:47 PM EDT POCT GLUCOSE, FINGERSTICK (POCGLU) (NO CHARGE) Routine 10/19/2024 8:26 PM EDT POCT GLUCOSE, FINGERSTICK (POCGLU) (NO CHARGE) Routine 10/19/2024 4:11 PM EDT (REPORT) POC BLOOD GAS, ARTERIAL (NO CHARGE) Routine 10/19/2024 3:46 PM EDT POCT GLUCOSE, FINGERSTICK (POCGLU) (NO CHARGE) Routine 10/19/2024 12:03 PM EDT XR CHEST 1 VIEW-PORTABLE Routine 10/19/2024 11:54 AM EDT ECG 12-LEAD Routine 10/19/2024 9:20 AM EDT (REPORT) POC BLOOD GAS, ARTERIAL (NO CHARGE) Routine 10/19/2024 8:53 AM EDT POCT GLUCOSE, FINGERSTICK (POCGLU) (NO CHARGE) Routine 10/19/2024 7:59 AM EDT COMPREHENSIVE METABOLIC PANEL Routine 10/19/2024 4:16 AM EDT MAGNESIUM Routine 10/19/2024 4:16 AM EDT COMPLETE BLOOD COUNT, WITH DIFFERENTIAL Routine 10/19/2024 4:16 AM EDT PHOSPHORUS Routine 10/19/2024 4:16 AM EDT POCT GLUCOSE, FINGERSTICK (POCGLU) (NO CHARGE) Routine 10/19/2024 4:11 AM EDT POCT GLUCOSE, FINGERSTICK (POCGLU) (NO CHARGE) Routine 10/18/2024 11:37 PM EDT (REPORT) POC, IONIZED CALCIUM (NO CHARGE) Routine 10/18/2024 11:02 PM EDT (REPORT) POC, LACTATE (NO CHARGE) Routine 10/18/2024 11:02 PM EDT (REPORT) POC, SODIUM (NO CHARGE) Routine 10/18/2024 11:02 PM EDT (REPORT) POC, POTASSIUM (NO CHARGE) Routine 10/18/2024 11:02 PM EDT (REPORT) POC, HEMATOCRIT (NO CHARGE) Routine 10/18/2024 11:02 PM EDT (REPORT) POC, GLUCOSE (NO CHARGE) Routine 10/18/2024 11:02 PM EDT (REPORT) POC, COOXIMETRY (NO CHARGE) Routine 10/18/2024 11:02 PM EDT (REPORT) POC BLOOD GAS, ARTERIAL (NO CHARGE) Routine 10/18/2024 11:02 PM EDT POCT GLUCOSE, FINGERSTICK (POCGLU) (NO CHARGE) Routine 10/18/2024 8:22 PM EDT BASIC METABOLIC PANEL Routine 10/18/2024 7:51 PM EDT (REPORT) POC BLOOD GAS, ARTERIAL (NO CHARGE) Routine 10/18/2024 5:39 PM EDT PROTEIN/CREATININE RATIO PANEL, URINE Routine 10/18/2024 5:26 PM EDT LEGIONELLA & STREPTOCOCCUS PNEUMONIAE ANTIGEN, URINE Routine 10/18/2024 5:26 PM EDT URINALYSIS WITH REFLEX TO MICROSCOPIC AND CULTURE Routine 10/18/2024 5:26 PM EDT POCT GLUCOSE, FINGERSTICK (POCGLU) (NO CHARGE) Routine 10/18/2024 4:[address] CHEST/ABDOMEN+PELVIS W/O CONTRAST STAT 10/18/2024 4:15 PM EDT CR CHEST ARCHIVE FOR REFERENCE ONLY Routine 10/18/2024 3:59 PM EDT PTH, INTACT Routine 10/18/2024 3:00 PM EDT NASAL MRSA SCREEN, PCR Routine 2:45 PM EDT LACTIC ACID, PLASMA Routine 10/18/2024 1 :43 PM EDT (REPORT) POC BLOOD GAS, ARTERIAL (NO CHARGE) Routine 10/18/2024 12:27 PM EDT BLOOD CULTURE (HOSP LAB) Routine 10/18/2024 12:11 PM EDT B-HYDROXYBUTYRATE Routine 10/18/2024 12: 09 PM EDT PHOSPHORUS Routine 10/18/2024 12:09 PM EDT MAGNESIUM Routine 10/18/2024 12:09 PM EDT COMPREHENSIVE METABOLIC PANEL Routine 10/18/2024 12:09 PM EDT COMPLETE BLOOD COUNT, WITH DIFFERENTIAL Routine 10/18/2024 12:09 PM EDT BLOOD CULTURE (HOSP LAB) Routine 10/18/2024 12:09 PM EDT POCT GLUCOSE, FINGERSTICK (POCGLU) (NO CHARGE) Routine 10/18/2024 12:05 PM EDT ECG 12-LEAD Routine 10/18/2024 11:36 AM EDT XR CHEST 1 VIEW-PORTABLE STAT 10/18/2024 11:30 AM EDT from Last 3 Months Results * (ABNORMAL) Complete Blood Count, with Differential (10/22/2024 7:49 AM EDT) Only the most recent of4 resultswithin the time period is included. White Blood Cell Count 11.8(H) 4.0 - 11.0 Thou/uL 10/22/2024 8:[address] [facility] Platelet Count 243 150 - 450 Thou/uL 10/22/2024 8:[address] [facility] Hemoglobin 8.4(L) 13.0 - 17.7 g/dL 10/22/2024 8:[address] [facility] Hematocrit 26.7(L) 39.0 - 54.0 % 10/22/2024 8:[address] [facility] Red Blood Cell Count 2.87(L) 4.50 - 6.20 Mil/uL 10/22/2024 8:[address] [facility] MCV 93 80 - 100 fL 10/22/2024 8:[address] [facility] MCH 29.3 27.0 - 31.0 pg 10/22/2024 8:[address] [facility] MCHC 31.5 30.0 - 36.0 g/dL 10/22/2024 8:[address] [facility] RDW 14.6(H) 11.5 - 14.5 % 10/22/2024 8:[address] [facility] MPV 11.0 7.5 - 12.5 fL 10/22/2024 8:[address] [facility] nRBC 0.5(H) 0.0 - 0.1 /100 WBC 10/22/2024 8:[address] [facility] nRBC, Absolute 0.06(H) 0.00 - 0.02 Thou/uL 10/22/2024 8:[address] [facility] Bands Man 4 % 10/22/2024 9:[address] [facility] Neutrophils Man 86 % 9:[address] [facility] Lymphocytes Man 7 % 9:[address] [facility] Monocytes Man 3 % 10/22/2024 9:[address] [facility] Abs Neutrophils Count (ANC) 10.6(H) 2.0 - 7.5 Thou/uL 10/22/2024 9:[address] [facility] Abs Lymphocytes Man 0.8(L) 1.5 - 4.5 Thou/uL 10/22/2024 9:[address] [facility] Abs Monocytes Man 0.4 0.2 - 1.5 Thou/uL 10/22/2024 9:[address] [facility] Macrocytes Occasional 10/22/2024 9:[address] [facility] Polychromasia Occasional 10/22/2024 9:[address] [facility] Hypochromia Occasional 10/22/2024 9:[address] [facility] Spherocytes Occasional 10/22/2024 9:[address] [facility] Blood Blood specimen / Unknown 10/22/2024 7:49 AM EDT 10/22/2024 8:00 AM EDT Christal Castrejon MD LAB BLOOD ORDERABLES [facility] [address] [place] [address], * (ABNORMAL) Basic Metabolic Panel (Early AM) (10/22/2024 7:49 AM EDT) Only the most recent of2 resultswithin the time period is included. Glucose 145(H) 74 - 106 mg/dL 10/22/2024 8:[address] [facility] Comment:Fasting: <100 mg/dL, Non-Fasting: <200 mg/dL (ADA 2004) Blood Urea Nitrogen (BUN) 107(H) 9 - 23 mg/dL 10/22/2024 8:[address] [facility] Creatinine 6.1(H) 0.7 - 1.3 mg/dL 10/22/2024 8:[address] [facility] eGFR 9(L) >59 10/22/2024 8:[address] [facility] Comment:CKD-EPI (2020) in mL /min/1.73 sq meters. Sodium 146(H) 136 - 145 mmol/L 10/22/2024 8:[address] [facility] Potassium 3.8 3.4 - 4.5 mmol/L 10/22/2024 8:[address] [facility] Chloride 107 98 - 107 mmol/L 10/22/2024 8:[address] [facility] CO2 23 20 - 31 mmol/L 10/22/2024 8:[address] [facility] Anion Gap 16(H) 5 - 15 10/22/2024 8:[address] [facility] Calcium 8.2(L) 8.7 - 10.5 mg/dL 10/22/2024 8:[address] [facility] BUN/Creatinine Ratio 18 10.0 - 25.0 Ratio 10/22/2024 8:[address] [facility] Blood Blood specimen / Unknown 10/22/2024 7:49 AM EDT 10/22/2024 8:00 AM EDT Christal Castrejon MD LAB BLOOD ORDERABLES [facility] [address] [place] [address], * (ABNORMAL) POCT Glucose, Fingerstick (10/22/2024 7:42 AM EDT) Only the most recent of20 resultswithin the time period is included. Pathologist [facility] POC Glucose 150(H) 65 - 99 mg/dL 10/22/2024 7:48 AM EDT Blood specimen / Unknown 10/22/2024 7:42 AM EDT 10/22/2024 7:48 AM EDT Christal Castrejon MD POINT OF CARE TEST O RDERABLES [facility]OS[facility]ITAL LAB See Below * ECHOCARDIOGRAM COMPREHENSIVE WITH CONTRAST (10/20/2024 12:11 PM EDT) Pathologist [facility] IVS Mean (F:0.6-0.9, M:0.6-1.0) 1.0 cm IVS (F:0.6-0.9, M:0.6-1.0) 1.0 cm LVIDD Mean (F:3.8-5.2, M:4.2-5.8) 5.1 cm LVIDD (F:3.8-5.2, M:4.2-5.8) 5.1 cm LVIDS (F:2.2-3.5, M:2.5-4.0) 2.1 cm LVIDS (F:2.2-3.5, M:2.5-4.0) 2.1 cm LVOT diameter mean 2.0 cm LVOT diameter 2.0 cm PW Mean (F:0.6-0.9, M:0.6-1.0) 1.0 cm PW (F:0.6-0.9, M:0.6-1.0) 1.0 cm LV Diastolic Volume Mean 105.7 mL LV Diastolic Volume 106 mL LV Systolic Volume Mean 41.0 mL LV Systolic Volume 41 mL LVOT mn grad mean 3.9 mmHg LVOT mn grad 3.9 mmHg LVOT peak len mean 1.3 m/s LVOT peak len 1.3 m/s LVOT VTI MEAN 28.3 cm LVOT VTI 28.3 cm LA volume Mean 74.2 mL LA volume 74.2 mL AV mean gradient mean 14.7 mmHg AV mean gradient 14.7 mmHg Ao peak len mean 2.4 m/s Ao peak len 2.4 m/s Ao VTI Mean 50.6 cm Ao VTI 50.6 cm MV Peak A-Wave Mean 87.7 cm/s MV Peak A-Wave 87.7 cm/s E wave decelartion time mean 154 ms E wave decelartion time 154 ms MV Peak E-Wave Mean 139.0 cm/s MV Peak E-Wave 139.0 cm/s MV E' Lateral Velocity Mean 9.59 cm/s MV E' Lateral Velocity 9.59 cm/s MV E' Septal Velocity Mean 8.18 cm/s MV E' Septal Velocity 8.18 cm/s Tapse Mean 1.8 cm Tapse 1.8 cm TR Peak Len Mean 3.4 m/s TR Peak Len 3.4 m/s Ascending aorta mean 2.6 cm Ascending aorta 2.6 cm Sinuses of Valsalva Mean 2.9 cm Sinuses of Valsalva 2.9 cm Inferior Vena Cava Diameter Mean 1.6 cm Inferior Vena Cava Diameter 1.6 cm Heart Rate 92 bpm BP Systolic 144 mmHg BP Diastolic 68 mmHg Height 71.00 inches Weight 239.00 lbs LV Mass Index (F:43-95, M:49-115) 82.7 g/m2 LA Volume Index (16-34) 32.6 mL/m2 LV Diastolic Volume Index (F:29-61, M:35-75) 46.6 mL/m2 LV Systolic Volume Index (F:8-24, M:11-31) 18.0 mL/m2 E/E' ratio 14.49 AV peak gradient 23.0 mmHg LVOT stroke volume 89 mL LVOT area 3.1 cm2 E/A ratio 1.58 AV LVOT peak gradient 6.8 mmHg Dimensionless Index 0.56 SVI 38 mL/m2 AV area by cont VTI 1.8 cm2 Ascending aorta Index 1.1 cm/m2 Sinuses of Valsalva Index 1.3 cm/m2 Valve area - Index 0.8 cm2/m2 LV mass 188.0 g Stahl BP EF (55-75) 61 % E/E' Average 15.7 E/E' Septal 17.0 E/E' Lateral 14.5 LVOT SI 39.06 mL/m2 LV RWT 0.39 Left Ventricular Cardiac Index 3.6 L/min/m2 Left Ventricular Cardiac Output 8.2 L/min BSA 2.27 m2 TR Peak Gradient 46 mmHg Est. RA pres 3 mmHg RVSP 49 mmHg PASP 49.2 mmHg Anatomical Region Laterality Modality Ultrasound Narrative 10/20/2024 12:56 PM EDT ?The left ventricle is normal in size. Wall thickness is normal. Left ventricular systolic function is normal. The quantitative EF by 2D Stahl biplane is 61%. No wall motion abnormalities are present. Diastolic function is normal. ?The right ventricle is normal in size. Right ventricular systolic function is normal. ?The aortic valve is tricuspid. There is no aortic regurgitation. There is mild aortic stenosis. The calculated valve area is 1.8 cm2, with a peak velocity of 2.4 m/s, a mean gradient of 14.7 mmHg, and a dimensionless index of ??0.56. ?There is mild to moderate tricuspid regurgitation. The estimated right ventricular systolic pressure is mildly elevated at 49 mmHg. ?There is no previous study for comparison in our system. Technical Details Definity contrast was used during the study. Overall the study quality was adequate. The study was difficult due to patient's body habitus. Left Ventricle The left ventricle is normal in size. Wall thickness is normal. Left ventricular systolic function is normal. The quantitative EF by 2D Stahl biplane is 61%. No wall motion abnormalities are present. Diastolic function is normal. Right Ventricle The right ventricle is normal in size. Right ventricular systolic function is normal. Left Atrium Left atrial size is normal. Right Atrium Right atrial size is normal. Based on IVC diameter and collapse, right atrial pressure is estimated to be normal (3 mmHg). Mitral Valve The mitral valve is structurally normal. There is mild mitral regurgitation. Tricuspid Valve The tricuspid valve is structurally normal. There is mild to moderate tricuspid regurgitation. The estimated right ventricular systolic pressure is mildly elevated at 49 mmHg. Aortic Valve The aortic valve is tricuspid. There is no aortic regurgitation. There is mild aortic stenosis. The calculated valve area is 1.8 cm2, with a peak velocity of 2.4 m/s, a mean gradient of 14.7 mmHg, and a dimensionless index of 0.56. Pulmonic Valve The pulmonic valve is structurally normal. There is trace pulmonic regurgitation. Ascending Aorta The aortic root dimension is normal. Pericardium There is no pericardial effusion. Prior Study There is no previous study for comparison in our system. Hadley Johnson MD CV ECHO ORDERABLES * (ABNORMAL) PHOSPHORUS (10/20/2024 5:31 AM EDT) Only the most recent of3 resultswithin the time period is included. Phosphorus 6.1(H) 2.4 - 5.1 mg/dL 10/20/2024 6:[address] [facility] Blood Blood specimen / Unknown 10/20/2024 5:31 AM EDT 10/20/2024 5:37 AM EDT Hadley Johnson MD LAB BLOOD ORDERABLES Performing Organization Address City/[facility]/ZIP Co de Phone Number [address] * MAGNESIUM (10/20/2024 5:31 AM EDT) Only the most recent of3 resultswithin the time period is included. Magnesium 2.1 1.6 - 2.6 mg/dL 10/20/2024 6:[address] [facility] Blood Blood specimen / Unknown 10/20/2024 5:31 AM EDT 10/20/2024 5:37 AM EDT Hadley Johnson MD LAB BLOOD ORDERABLES Performing Organization Address City/[facility] Co de Phone Number [address] * (ABNORMAL) Comprehensive Metabolic Panel (10/20/2024 5:31 AM EDT) Only the most recent of3 resultswithin the time period is included. Glucose 141(H) 74 - 106 mg/dL 10/20/2024 6:[address] [facility] Comment:Fasting: <100 mg/dL, Non-Fasting: <200 mg/dL (ADA 2004) Blood Urea Nitrogen (BUN) 100(H) 9 - 23 mg/dL 10/20/2024 6:[address] [facility] Creatinine 6.6(H) 0.7 - 1.3 mg/dL 10/20/2024 6:[address] [facility] eGFR 8(L) >59 10/20/2024 6:[address] [facility] Comment:CKD-EPI (2020) in mL /min/1.73 sq meters. Sodium 143 136 - 145 mmol/L 10/20/2024 6:[address] [facility] Potassium 4.0 3.4 - 4.5 mmol/L 10/20/2024 6:[address] [facility] Chloride 108(H) 98 - 107 mmol/L 10/20/2024 6:[address] [facility] CO2 22 20 - 31 mmol/L 10/20/2024 6:[address] [facility] Calcium 7.4(L) 8.7 - 10.5 mg/dL 10/20/2024 6:[address] [facility] Alkaline Phosphatase 150(H) 45 - 128 U/L 10/20/2024 6:[address] [facility] Aspartate Aminotrans (AST) 37(H) <34 U/L 10/20/2024 6:[address] [facility] Alanine Aminotrans (ALT) 23 10 - 49 U/L 10/20/2024 6:[address] [facility] Bilirubin, Total 0.2(L) 0.3 - 1.2 mg/dL 10/20/2024 6:[address] [facility] Protein, Total 6.8 5.7 - 8.2 g/dL 10/20/2024 6:[address] [facility] Albumin 3.5 3.4 - 4.8 g/dL 10/20/2024 6:[address] [facility] BUN/Creatinine Ratio 15 10.0 - 25.0 Ratio 10/20/2024 6:[address] [facility] Globulin 3.3 1.5 - 3.9 g/dL 10/20/2024 6:[address] [facility] Albumin/Globulin Ratio 1.0(L) 1.5 - 2.5 Ratio 10/20/2024 6:[address] [facility] Anion Gap 13 5 - 15 10/20/2024 6:[address] [facility] Blood Blood specimen / Unknown 10/20/2024 5:31 AM EDT 10/20/2024 5:37 AM EDT Hadley Johnson MD LAB BLOOD ORDERABLES [facility] [address] [place] [address], * (ABNORMAL) POCT Blood Gas, Arterial (10/19/2024 3:46 PM EDT) Only the most recent of5 resultswithin the time period is included. Sample Type Arterial 10/19/2024 3:48 PM EDT [facility] Lab pH, Arterial 7.36 7.35 - 7.45 10/19/2024 3:48 PM EDT [facility] Lab pCO2, Arterial 36 35 - 45 mmHG 10/19/2024 3:48 PM EDT [facility] Lab pO2, Arterial 48(LL) 80 - 100 mmHG 10/19/2024 3:48 PM EDT [facility] Lab HCO3 20.0(L) 22 - 26 mmol/L 10/19/2024 3:48 PM EDT [facility] Lab O2 Saturation, Arterial 79.0(L) 95 - 100 % 10/19/2024 3:48 PM EDT [facility] Lab Base Deficit, Arterial 4.5 mmol/L 10/19/2024 3:48 PM EDT [facility] Lab Comment:REFERENCE RANGE: NEG ATIVE 2 TO POSITIVE 2 Liter Flow, I-STAT 3.0 10/19/2024 3:48 PM EDT [facility] Lab Comments POC VENOUS 10/19/2024 3:48 PM EDT [facility] Lab 10/19/2024 3:46 PM EDT 10/19/2024 3:48 PM EDT Hadley Johnson MD POCT ORDERABLES - DE VICE [facility],PULMON[facility] [address] [facility] [place] [address], [facility],P[facility] Lab [address] [facility], [place] * XR Chest 1 view-Portable (10/19/2024 11:54 AM EDT) Only the most recent of2 resultswithin the time period is included. Anatomical Region Laterality Modality Chest Digital Radiogra phy 10/19/2024 11:5 9 AM EDT Impressions 10/19/2024 12:00 PM EDT Patchy right lung opacities, similar to prior exam Narrative 10/19/2024 12:00 PM EDT CLINICAL INFORMATION: new shortness of breath w pneumonina, worsening pulmonary edema? COMPARISON: October 18, 2024 TECHNIQUE: ??AP view of the chest. FINDINGS: Heart/Mediastinum: Stable Lungs: ??Patchy right lung opacities, similar to prior exam persistent bibasilar atelectasis. No definite pleural effusions. Osseous Structures: ??No definite acute abnormalities. Procedure Note Brandon Li MD - 10/19/2024 CLINICAL INFORMATION: new shortness of breath w pneumonina, worseningpulmonary edema? COMPARISON: October 18, 2024 TECHNIQUE: AP view of the chest. FINDINGS: Heart/Mediastinum: Stable Lungs: Patchy right lung opacities, similar to prior exam persistentbibasilar atelectasis. No definite pleural effusions. Osseous Structures: No definite acute abnormalities. IMPRESSION: Patchy right lung opacities, similar to prior exam Hadley Johnson MD IMG DIAGNOSTIC IMAGI NG ORDERABLES * ECG 12 lead (10/19/2024 9:20 AM EDT) Only the most recent of2 resultswithin the time period is included. Ventricular rate 94 BPM EKG [facility] Atrial rate 94 BPM EKG [facility] P-R interval 138 ms EKG [facility] QRS duration 88 ms EKG [facility] Q-T interval 386 ms EKG [facility] QTC calculation (Bazett) 483 ms EKG [facility] P axis 60 degrees EKG [facility] R axis 19 degrees EKG [facility] T axis 55 degrees EKG [facility] 10/19/2024 9:20 AM EDT Narrative EKG [facility] - 10/19/2024 9:41 AM EDT Normal sinus rhythm Prolonged QT Abnormal ECG When compared with ECG of 18-Oct-2024 11:36, No significant change was found Confirmed by MD Simmons Venu ([id number]) on 10/19/2024 9:41:44 AM Procedure Note Roland Simmons MD - 10/19/2024 Normal sinus rhythm Prolonged QT Abnormal ECG When compared with ECG of 18-Oct-2024 11:36, No significant change was found Confirmed by MD Simmons Venu ([id number]) on 10/19/2024 9:41:44 AM Hadley Johnson MD ECG ORDERABLES EKG [facility] * (ABNORMAL) POCT, Ionized Calcium (10/18/2024 11:02 PM EDT) POC Ionized Calcium 4.30(L) 4.60 - 5.32 mg/dL 10/18/2024 11:06 PM EDT [facility] Smear Cmt LEFT RADIAL POSITIVE COLLATERAL No comment 10/18/2024 11:06 PM EDT [facility] 10/18/2024 11:0 2 PM EDT 10/18/2024 11:05 PM EDT Hadley Johnson MD POCT ORDERABLES - DE VICE [facility] [address] [facility] [place] [address], [facility],P[facility] [address] [facility], [place] * POCT, Lactate (10/18/2024 11:02 PM EDT) Lactate, POC 0.6 0.4 - 0.8 mmol/L 10/18/2024 11:06 PM EDT [facility] Comment LEFT RADIAL POSITIVE COLLATERAL No comment 10/18/2024 11:06 PM EDT [facility] 10/18/2024 11:0 2 PM EDT 10/18/2024 11:05 PM EDT Hadley Johnson MD POCT ORDERABLES - DE VICE [facility] [address] [facility] [place] [address], [facility],P[facility] [address] [place], [place] * POCT, Sodium (10/18/2024 11:02 PM EDT) Sodium 138 136 - 145 mmol/L 10/18/2024 11:06 PM EDT [facility] Smear Comm LEFT RADIAL POSITIVE COLLATERAL No comment 10/18/2024 11:06 PM EDT [facility] 10/18/2024 11:0 2 PM EDT 10/18/2024 11:05 PM EDT Hadley Johnson MD POCT ORDERABLES - DE VICE [facility] [address] [facility] [place] [address], [facility] [address] [facility], [place] * POCT, Potassium (10/18/2024 11:02 PM EDT) Potassium 4.3 3.5 - 5.1 mmol/L 10/18/2024 11:06 PM EDT [facility] Comment LEFT RADIAL POSITIVE COLLATERAL No comment 10/18/2024 11:06 PM EDT [facility] 10/18/2024 11:0 2 PM EDT 10/18/2024 11:05 PM EDT Hadley Johnson MD POCT ORDERABLES - DE VICE [facility] [address] [facility] [place] [address], [facility],P[facility] [address] [facility], [place] * (ABNORMAL) POCT, Hematocrit (10/18/2024 11:02 PM EDT) Hematocrit 25.0(L) 40 - 50 % 10/18/2024 11:06 PM EDT [facility] Comment LEFT RADIAL POSITIVE COLLATERAL 10/18/2024 11:06 PM EDT [facility] 10/18/2024 11:0 2 PM EDT 10/18/2024 11:05 PM EDT Hadley Johnson MD POCT ORDERABLES - DE VICE [facility] [address] [place] [address], [facility],P[facility] [address] [facility], [place] * (ABNORMAL) POCT, Glucose (10/18/2024 11:02 PM EDT) Glucose POC 206(H) 70 - 108 mg/dL 10/18/2024 11:06 PM EDT [facility] Comment LEFT RADIAL POSITIVE COLLATERAL No comment 10/18/2024 11:06 PM EDT [facility] 10/18/2024 11:0 2 PM EDT 10/18/2024 11:05 PM EDT Hadley Johnson MD POCT ORDERABLES - DE VICE [facility] [address] [place] [address], [facility],Pulmonary [facility] [address] [place], [place] * POCT, Cooximetry (10/18/2024 11:02 PM EDT) Carboxyhemoglobin 0.0 % 025 11:06 PM EDT [facility] Methemoglobin 0.7 % 10/18/2024 11:06 PM EDT [facility] Oxyhemoglobin, POC 94.8000 % 2024 11:06 PM EDT [facility] Reduced Hemoglobin 4.5 % 2024 11:06 PM EDT [facility] Hemoglobin, POC 8.4 11:06 PM EDT [facility] POC Sample Type Arterial 11:06 PM EDT [facility] Comment LEFT RADIAL POSITIVE COLLATERAL 10/18/2024 11:06 PM EDT [facility] 10/18/2024 11:0 2 PM EDT 10/18/2024 11:05 PM EDT Hadley Jhonson MD POCT ORDERABLES - DE VICE [facility] [address] [place] [address], [facility],Pulmonary Lab [address] [place], [place] * (ABNORMAL) Urinalysis with Reflex to Microscopic and Culture (10/18/2024 5:26 PM EDT) Color Yellow 10/18/2024 9:[address] [facility] Clarity Clear 10/18/2024 9:[address] [facility] Specific [place] 1.016 1.003 - 1.030 10/18/2024 9:[address] [facility] pH 5.0 5.0 - 8.0 10/18/2024 9:[address] [facility] Leukocyte Esterase Negative Negative 10/18/2024 9:[address] [facility] Nitrite Negative Negative 10/18/2024 9:[address] [facility] Protein Large (300 mg/dL)(A) Negative 10/18/2024 9:[address] [facility] Glucose Moderate 0 - 99 mg/dL 10/18/2024 9:[address] [facility] Ketones Negative Negative 10/18/2024 9:[address] [facility] Blood Large(A) Negative 10/18/2024 9:[address] [facility] Urobilinogen 0.2 0.2 - 1.0 EU/dL 10/18/2024 9:[address] [facility] Bilirubin Negative Negative 10/18/2024 9:[address] [facility] WBC 9(H) 0 - 4 per hpf 10/18/2024 9:[address] [facility] RBC 50(H) 0 - 4 per hpf 10/18/2024 9:[address] [facility] Bacteria Negative Negative 10/18/2024 9:[address] [facility] Squamous Epithelial Cells 2 per hpf 10/18/2024 9:[address] [facility] Hyaline Casts 1 0 - 4 per lpf 10/18/2024 9:[address] [facility] Yeast Absent Absent 10/18/2024 9:[address] [facility] Urine Urine specimen obtained by clean catch procedure / Unknown 10/18/2024 5:26 PM EDT 10/18/2024 8:56 PM EDT Hadley Johnson MD MICROBIOLOGY - [facility] AL ORDERABLES [facility] [address] [place] [address], * Legionella & Streptococcus Pneumoniae Antigen, Urine (10/18/2024 5:26 PM EDT) Legionella Antigen EIA, Urine Presumptive Negative Presumptive Negative 10/19/2024 8:59 AM EDT [facility] Comment: Presumptive Negative for L.pneumophila Ag in Urine, suggesting no recent or current infection. Infection due to Legionella cannot be ruled out since other serogroups and species may casue disease, Ag may not be present in Urine in early infection and the level of antigen present may be below the detection lilmit of the test. Streptococcal Antigen, Urine Presumptive Negative Presumptive Negative 10/19/2024 8:59 AM EDT [facility] Comment:Presumptive Negative for Pneumococcal Pneumonia, suggesting no recent or current Pneumococcal Infection. Infection due to S.pneumoniae cannot be ruled out since the antigen level present in the specimen may be below the detection limit of the test. Urine Urine specimen / Unknown 10/18/2024 5:26 PM EDT 10/18/2024 8:57 PM EDT Hadley Johnson MD URINE ORDERABLES [facility] [address] [place] [address], * Protein/Creatinine Ratio Panel, Urine (10/18/2024 5:26 PM EDT) Protein Urine, Random 338 mg/dL 10/18/2024 10:[address] [facility] Comment:Reference range not established for random specimen. Creatinine, Urine, Random 114 mg/dL 10/18/2024 9:[address] [facility] Comment:Reference range not established for random specimen. Protein/Creatini ne Ratio, Urine 2.96 10/18/2024 10:[address] [facility] Urine Urine specimen / Unknown 10/18/2024 5:26 PM EDT 10/18/2024 8:57 PM EDT Hadley Johnson MD URINE ORDERABLES [facility] [address] [place] [address], [place] * CT Chest/abdomen+pelvis w/o contrast (10/18/2024 4:15 PM EDT) Anatomical Region Laterality Modality Chest, Abdomen, Pelvis Computed Tomography 10/18/2024 4:17 PM EDT Impressions 10/18/2024 4:33 PM EDT Limited by lack of intravenous contrast Patchy groundglass opacities at the right lung most prominent at the right upper lobe. This may represent an infectious or inflammatory etiology. Pneumonia cannot be excluded and clinical correlation is recommended. Bilateral lower lobe atelectasis with small bilateral pleural effusions 9 mm left perifissural lung nodule Narrative 10/18/2024 4:33 PM EDT CLINICAL INFORMATION: Pneumonia. Renal stone. COMPARISON: ??None. TECHNIQUE: ??CT Chest, Abdomen, and Pelvis w/o contrast. ??Protocol: Protocol: Routine. Dose modulation and/or iterative reconstruction was utilized to minimize dose. FINDINGS: Limited by lack of intravenous contrast ? CHEST Lymph Nodes: Shotty mediastinal lymph nodes. No bulky lymphadenopathy Lungs/Pleura: Bilateral lower lobe atelectasis with small bilateral pleural effusions Patchy groundglass opacities at the right lung most prominent at the right upper lobe 9 mm left perifissural lung nodule Chest Wall: Grossly unremarkable Coronary artery calcifications seen ? ABDOMEN AND PELVIS Liver: Grossly unremarkable Gallbladder/Biliary: No calcified gallstones or biliary dilatation seen Spleen: Grossly unremarkable Pancreas: Grossly unremarkable Adrenals: Grossly unremarkable Kidneys: Bilateral low-attenuation renal lesions, probably renal cysts. No renal stone or hydronephrosis. Retroperitoneum: No aortic aneurysm. No adenopathy. Gastrointestinal: No bowel obstruction seen Urinary Bladder: Decompressed by Cooper catheter and not well evaluated Bones: ??No acute or suspicious abnormalities. ?? Procedure Note Brandon Li MD - 10/18/2024 CLINICAL INFORMATION: Pneumonia. Renal stone. COMPARISON: None. TECHNIQUE: CT Chest, Abdomen, and Pelvis w/o contrast. Protocol:Protocol: Routine. Dose modulation and/or iterative reconstruction wasutilized to minimize dose. FINDINGS: Limited by lack of intravenous contrast CHEST Lymph Nodes: Shotty mediastinal lymph nodes. No bulky lymphadenopathy Lungs/Pleura: Bilateral lower lobe atelectasis with small bilateralpleural effusions Patchy groundglass opacities at the right lung most prominent at the rightupper lobe 9 mm left perifissural lung nodule Chest Wall: Grossly unremarkable Coronary artery calcifications seen ABDOMEN AND PELVIS Liver: Grossly unremarkable Gallbladder/Biliary: No calcified gallstones or biliary dilatation seen Spleen: Grossly unremarkable Pancreas: Grossly unremarkable Adrenals: Grossly unremarkable Kidneys: Bilateral low-attenuation renal lesions, probably renal cysts. Norenal stone or hydronephrosis. Retroperitoneum: No aortic aneurysm. No adenopathy. Gastrointestinal: No bowel obstruction seen Urinary Bladder: Decompressed by Cooper catheter and not well evaluated Bones: No acute or suspicious abnormalities. IMPRESSION: Limited by lack of intravenous contrast Patchy groundglass opacities at the right lung most prominent at the rightupper lobe. This may represent an infectious or inflammatory etiology.Pneumonia cannot be excluded and clinical correlation is recommended. Bilateral lower lobe atelectasis with small bilateral pleural effusions 9 mm left perifissural lung nodule Hadley Johnson MD IMG CT ORDERABLES * CR Chest Archive for Reference only (10/18/2024 3:59 PM EDT) Pina NIMESH - 10/18/2024 3:59 PM EDT This study has been auto finalized and does not contain a result. File Room Provider IMG DIGITIZE FILMS NIMESH [phone] * (ABNORMAL) PTH, Intact (10/18/2024 3:00 PM EDT) PTH, Intact 755(H) 18 - 80 pg/mL 10/18/2024 4:[address] [facility] Blood Blood specimen / Unknown 10/18/2024 3:00 PM EDT 10/18/2024 3:39 PM EDT Hadley Johnson MD LAB BLOOD ORDERABLES Performing Organization Address City/[facility]/ZIP Co de Phone Number [address] * Nasal MRSA Screen, PCR (10/18/2024 2:45 PM EDT) Pathologist [facility] MRSA Result Not Detected Not Detected 4:[address] [facility] Swab, Anterior Nares Specimen from nose / Unknown 10/18/2024 2:45 PM EDT 10/18/2024 2:58 PM EDT Hadley Johnson MD MICROBIOLOGY - GENER AL ORDERABLES Performing Organization Address [facility] Co de Phone Number [address] * Lactic Acid, Plasma (STAT) (10/18/2024 1:43 PM EDT) Pathologist [facility] Lactic Acid 1.2 0.5 - 1.9 mmol/L 10/18/2024 2:[address] [facility] Blood Blood specimen / Unknown 10/18/2024 1:43 PM EDT 10/18/2024 1:49 PM EDT Hadley Johnson MD LAB BLOOD ORDERABLES Performing Organization Address City/[facility] Co de Phone Number [address] * Blood Culture (10/18/2024 12:11 PM EDT) Only the most recent of2 resultswithin the time period is included. Culture Sterile after 5 days 10/23/2024 7:06 AM EDT [facility] Blood Blood specimen / Unknown 10/18/2024 12:11 PM EDT 10/18/2024 12:42 PM EDT Comment:Blood Hadley Johnson MD LAB BLOOD ORDERABLES [facility] [address] * (ABNORMAL) B-Hydroxybutyrate (10/18/2024 12:09 PM EDT) B-Hydroxybutyrate 0.30(H) <0.28 mmol/L 10/18/2024 2:[address] [facility] Comment: In the presence of uncontrolled diabetes, serum beta-hydroxybutyrate levels greater than or equal to 3.80 mmol/L (patients age 16 and over) or greater than or equal to 3.00 mmol/L (patients under age 16) support a clinical diagnosis of Diabetic Ketoacidosis (DKA) - Ref: Diabetes Care 31: 643 (2007). 10/18/2024 12:0 9 PM EDT 10/18/2024 12:44 PM EDT Hadley Johnson MD LAB BLOOD ORDERABLES Performing Organization Address City/[facility] Co de Phone Number [facility] [address] [place] [address], from Last 3 Months Additional Health Concerns Infection Onset Date Last Indicated RSV Comment:RSV reported from outside facility Contact and Droplet precautions required for duration of illness (at least 8 days from onset and fever free for 24 hours without fever reducing medication(s). If patient is immunocompromised, consult with Infection Prevention prior to discontinuing precautions 10/19/2024 10/19/2024 Advance Directives * Full Code (Latest Code Status on File) Date Activated Date Inactivated Comments 10/18/2024 11:07 AM
--- OUTSIDE RECORDS SUMMARY | 2024-10-26 10:26 | XMS_ITS | Clinical Summary ---
Author Organization 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
--- OUTSIDE RECORDS SUMMARY | 2024-10-26 10:27 | XMS_ITS | Encounter Summary ---
Author Organization [facility] Address [address] [place] [address] Phone Care Team Providers Care Ethical Hacker Name Role Phone Joanna Angeles MD Primary Care Provider [phone] Reason for Visit * Reason Comments Med Refill Encounter Details Date Type Department Care Team ([facility] st Contact Info) Description 06/09/2023 Refill [facility] [address] [place] [address] Ahmet Oviedo MD [address] [facility] [address] [place] [address] Social History Tobacco Use Types [...] on filedocumented in this encounter Care Teams Ethical Hacker Relationship Specialty Start Date End Date Joanna Angeles MD [address] [facility] [address] [place] [address] PCP - General Family Medicine 02/17/23 documented as of this encounter
--- OUTSIDE RECORDS SUMMARY | 2024-10-26 10:27 | XMS_ITS | Encounter Summary ---
Author Organization [facility] Address [address] [place] [address] Care Team Providers Care Adult Family Home Program Manager Name Role Phone Unavailable Primary Care Provider Unavailabl e Reason for Visit * Auth/Cert Specialty Diagnoses / Procedures Referred By Contac t Referred To Contact Diagnoses bilateral multifocal PNA Procedures n/a Referral ID Status Reason Start Date Expiration Date Visits Re quested Visits Authorized [id number] 1 1 Encounter Details Date Type Department Care Team (Latest Contact Info) Description 10/18/2024 10:27 AM EDT - 10/22/2024 11:46 AM EDT Hospital Encounter [address] [address] Marcelino Garcia MD [address] [place] [address] Hadley Johnson MD [address] [place] [address] Adi Bejarano MD [address] [place] [address] Christal Castrejon MD [address] [place] [address] Acute hypoxic respiratory failure (HCC) (Primary Dx); Pneumonia due to infectious organism, unspecified laterality, unspecified part of lung Discharge Disposition: Home or Self Care Social History Tobacco Use Types Packs/Day Years Used Date Smoking Tobacco: Never Assessed [facility] Utilities Answer Date Recorded In the past 12 months has [facility] electric, gas, oil, or water company threatened [...] money to buy more. Never true 10/22/19 Within the past 12 months, t he [...] any time in the past 12 [facility], were you homeless or living in a intermediate (including now)? No 10/21/2024 Sex and Gender Information Value Date Recorded Sex Assigned at Male 10/18/2024 10:24 AM EDT Gender Identity Male 10/18/2024 10:24 AM EDT Sexual Orientation Heterosexual (straight) 10/18 10:24 AM EDT documented as of this encounter Last Filed Vital Signs Vital Sign Reading [...] Mass Index 32.13 10/18/2024 2:32 PM EDT documented in this encounter Discharge Summaries * Christal Castrejon MD - 10/22/2024 10:15 AM EDT Inpatient Discharge Summary Patient Demographics RYAN KIRK 1955 69 y.o. No Known Allergies Admission Date: 10/18/2024 Admitting Provider: Hadley Johnson MD Discharge Provider: Christal Castrejon MD Primary Care Physician at Discharge: No primary care provider on file. Discharge Date: 10/22/2024 Primary Discharge Diagnosis BENJAMIN / Hypoxia Secondary Discharge Diagnosis No past medical history on file. Procedure and Studies during Hospitalization: Consultations: Nephrology Dr Mara Cadet Discharge Medications Discharge Medications New Medications Sig cefpodoxime 200 MG tablet Commonly known as: VANTIN Start taking on: October 23, 2024 Take 1 tablet (200 mg total) by mouth daily. Do not start before October 23, 2024. Quantity: 2 tablet Stop taking on: October 25, 2024 predniSONE 10 MG tablet Commonly known as: DELTASONE Take 40 mg (= 4 tablets) by mouth daily for 1 days, then 30 mg (= 3 tablets) daily for 1 days, then20 mg (= 2 tablets) daily for 1 days, then 10 mg (= 1 tablet) daily for 1 days. Take with food. Quantity: 20 tablet sevelamer carbonate 0.8 g packet Commonly known as: RENVELA Take 1 packet (800 mg total) by mouth 3 (three) times a day with meals. Quantity: 90 packet Modified Medications Sig sodium bicarbonate 650 MG tablet What changed: how much to take Take 2 tablets (1,300 mg total) by mouth 2 (two) times a day. Quantity: 120 tablet Medications To Continue Sig allopurinol 100 mg tablet Commonly known as: ZYLOPRIM Take 1 tablet (100 mg total) by mouth daily. amLODIPine 10 MG tablet Commonly known as: NORVASC Take 1 tablet (10 mg total) by mouth daily. Quantity: 30 tablet atorvastatin 40 MG tablet Commonly known as: LIPITOR Take 1 tablet (40 mg total) by mouth daily. Quantity: 30 tablet temazepam 15 MG capsule Commonly known as: RESTORIL Take 1 capsule (15 mg total) by mouth nightly as needed for sleep. Tresiba FlexTouch 100 UNIT/ML prefilled pen injection Generic drug: insulin degludec Inject 65 Units under the skin nightly. Stopped Medications calcitRIOL 0.25 MCG capsule Commonly known as: ROCALTROL cholecalciferol 1.25 MG ([address]609 [place]) capsule Commonly known as: CHOLECALCIFEROL gabapentin 300 MG capsule Commonly known as: NEURONTIN magnesium oxide 400 MG tablet Commonly known as: MAG-OX Followup: Chris Martínez MD [address] [place] [address] [place] [address] Schedule an appointment as soon as possible for a visit in 1 week(s) Last BUN/ CR 107/6.1 requires followup Joanna Angeles MD [address] [facility] [address] [facility] [address] Schedule an appointment as soon as possible for a visit in 1 week(s) FOLLOWUP LUNG NODULE / LUNG FINDINGS RESOLUTION REPEAT LABS TO MONITOR KIDNEY FUNCTION Follow up tests Code Status: Full Code HPI Ryan Kirk is a 69 y.o. male with a PMHx of CKD stage IV unknown BCR, HTN, diabetes, sciatica, bladder stone, hx of temporary HD via nkechi cath, gout, HLD, BMI 33, presenting with altered mental status and shortness of breath. Per patient he was taking a road trip with a friend to [place] to help them move. He noticed some shortness of breath with cough during that trip and after coming back home his cough further increased and he felt more tired. Per chart records family i.e. sister called EMS because he was not responding well was very tired and having hallucination. EMS at scene found patient tachycardic tachypneic with a fever and increased oxygen requirements, he was saturating 85% room air and on 6 L 93%. Subsequently was placed on nonrebreather and brought to the emergency department in [place]. In ED at outside hospital patient was found to have BENJAMIN on CKD, low magnesium 1.2, elevated troponin of 321, no chest pain, they gave 2 g of IV mag and started bicarb drip due to profound acidosis. VBG pH 7.07, CO2 55, O2 45, HCO3 16. Machine Repair Person at outside hospital said no urgent dialytic need. Subsequently RSV was positive and chest x-ray revealed bilateral consolidation right greater than left concerning for multifocal pneumonia. Given there were no ICU beds available at the center they decided to transfer the patient to us. Patient here is on BiPAP 14/5 with respiratory rate of 18. He states that he is feeling better after being on BiPAP and is tolerating the mask well. He still states that he has some degree of shortness of breath which is rapidly improving. He did not report any flank pain nausea vomiting or diarrhea. Says that he does not use any form of NSAIDs. He has a history of bladder stones and had bladder obstruction requiring nephrostomy tubes a few years ago. Gets regular scans and follows with a stone specialist for this. He had a renal ultrasound approximately 2 weeks ago but he's still waiting for the results. Later in the day urology PA placed a 16 [place] coud?? his Ma with clear yellow urine. Patient stated that he is unmarried does not have children his sister Earlene is the decision-maker in case he is not able to make any decisions, [phone]. [phone] Dr Angeles PCP Hospital Course Mr. Kirk is a 69 y.o. male with history of CKD stage IC with unknown baseline Cr, HTN, DM, sciatica, history of temprorary HD, gout, HLD, obesity, who presented with encephalopathyand sob in which patient was transferred from [facility] in [place] for encephalopathy and hypoxia found to have pneumonia with RSV and superimposed bacterial infection and BENJAMIN on CKD with severe acidosis. Patientadmitted to the ICU, required Bipap - transitioned to nasal canual and then transferred to general floors after stabilization Acute hypoxic respiratory failure in the setting of RSV with secondary bacterial pneumonia noted morbid obesity Patient today seems to be maintaining off of oxygen Check in a.m. again with ambulation Ceftriaxone and doxy - prolonged QT - repeat EKG in am Change solumedrol to q12h BENJAMIN on CKD Discussed with Dr. Cadet - recheck again in am if stable can be discharged with folllow up with his primary statistician in [facility] Discussed this plan with patient Discussed with patient and ma removed - noted to do well - urinating well after ma removal - he has a private urologist Discussed briefly with nephrology Dr. Pulliam today as well BUN 107/Cr 6.1 Okay for discharge Anemia - chronic disease Remains stable DM Uncontrolled On insulin at home Added mealtime bolus Constipation Resolved with stool softeners Lung nodule - will need outpatient followup Discussed with patient and his sister on the phone He knows to have close followup with his statistician and urologist Physical Exam: Last Vitals Pulse:95,Resp:16,BP:(!) 162/70,SpO2:95 %,O2 Device: room air (none), , Weight:104 kg (230 lb 6.1 oz) Body mass index is 32.13 kg/m??. Temp Last 24 hrs: Temp Min: 97.6 ??F (36.4 ??C) Max: 98.1 ??F (36.7 ??C) Comfortable NAD Regular s1 s2 Lungs clear Abd soft NT ND Ext warm No significant edema Labs Results from last 7 days Lab Units 10/22/24 0749 10/20/24 0531 10/19/24 0416 WHITE BLOOD CELL COUNT Thou/uL 11.8* 12.5* 10.7 HEMOGLOBIN g/dL 8.4* 8.0* 7.6* HEMATOCRIT % 26.7* 24.5* 24.1* PLATELET COUNT Thou/uL 243 210 192 Results from last 7 days Lab Units 10/22/24 0749 10/20/24 0823 10/20/24 0531 10/19/24 0759 10/19/24 0416 SODIUM mmol/L 146* -- 143 -- 141 POTASSIUM mmol/L 3.8 -- 4.0 -- 4.2 CHLORIDE mmol/L 107 -- 108* -- 109* CO2 mmol/L 23 -- 22 -- 18* BUN mg/dL 107* -- 100* -- 91* CREATININE mg/dL 6.1* -- 6.6* -- 6.8* EGFR 9* -- 8* -- 8* GLUCOSE mg/dL 145* -- 141* -- 193* GLUCOSE, POC -- < > -- < > -- CALCIUM mg/dL 8.2* -- 7.4* -- 7.6* < > = values in this interval not displayed. Results from last 7 days Lab Units 10/20/24 0531 ALK PHOS U/L 150* BILIRUBIN TOTAL mg/dL 0.2* ALBUMIN g/dL 3.5 ALT U/L 23 AST U/L 37* Results from last 7 days Lab Units 10/20/24 0531 MAGNESIUM mg/dL 2.1 Lab Results Component Value Date CALCIUM 8.2 (L) 10/22/2024 PHOS 6.1 (H) 10/20/2024 Imaging Echocardiogram (TTE) Comprehensive (Contrast PRN) Final Result XR Chest 1 view-Portable Final Result Patchy right lung opacities, similar to prior exam CT Chest/abdomen+pelvis w/o contrast Final Result Limited by lack of intravenous contrast Patchy groundglass opacities at the right lung most prominent at the right upper lobe. This may represent an infectious or inflammatory etiology. Pneumonia cannot be excluded and clinical correlationis recommended. Bilateral lower lobe atelectasis with small bilateral pleural effusions 9 mm left perifissural lung nodule XR Chest 1 view-Portable Final Result Patchy airspace opacities within the right upper lobe concerning for pneumonia. Follow-up to document resolution is recommended. Incidental findings: Tests Pending at Discharge: Pending Labs Order Current Status Blood Culture Preliminary result Blood Culture Preliminary result Condition on Discharge: good Discharge Disposition: Home - refused services Time to coordinate discharge: 50 min Christal Castrejon MD 10/22/2024 10:15 AM documented in this encounter Medications at Time of Discharge Medication Sig Dispensed Refills Start Date End Date allopurinol (ZYLOPRIM) 100 mg tablet Take 1 tablet (100 mg total) by mouth daily. 09/20/2024 temazepam (RESTORIL) 15 MG capsule Take 1 capsule (15 mg total) by mouth nightly as needed for sleep. 09/30/2024 Tresiba FlexTouch 100 UNIT/ML prefilled pen injection Inject 65 Units under the skin nightly. 10/06/2024 amLODIPine (NORVASC) 10 MG tabletIndications:Acute hypoxic respiratory failure (HCC) Take 1 tablet (10 mg total) by mouth daily. 30 tablet 10/22/2024 11/21/2024 atorvastatin (LIPITOR) 40 MG tabletIndications:Acute hypoxic respiratory failure (HCC) Take 1 tablet (40 mg total) by mouth daily. 30 tablet 10/22/2024 11/21/2024 predniSONE (DELTASONE) 10 MG tabletIndications:Acute hypoxic respiratory failure (HCC) Take 40 mg (= 4 tablets) by mouth daily for 1 days, then 30 mg (= 3 tablets) daily for 1 days, then 20 mg (= 2 tablets) daily for 1 days, then 10 mg (= 1 tablet) daily for 1 days. Take with food. 20 tablet 10/22/2024 sevelamer carbonate (RENVELA) 0.8 g packetIndications:Acute hypoxic respiratory failure (HCC) Take 1 packet (800 mg total) by mouth 3 (three) times a day with meals. 90 packet 10/22/2024 11/21/2024 sodium bicarbonate 650 MG tabletIndications:Acute hypoxic respiratory failure (HCC) Take 2 tablets (1,300 mg total) by mouth 2 (two) times a day. 120 tablet 10/22/2024 11/21/2024 cefpodoxime (VANTIN) 200 MG tabletIndications:Acute hypoxic respiratory failure (HCC),Pneumonia due to infectious organism, unspecified laterality, unspecified part of lung Take 1 tablet (200 mg total) by mouth daily. Do not start before October 23, 2024. 2 tablet 10/23/2024 10/25/2024 documented as of this encounter Progress Notes * Aliya Pollock RN - 10/22/2024 11:30 AM EDT Discharged home this morning, self-care, dc instructions given, verbalized understanding. [facility] to transport him to [facility]. O2 sat remains stable on room air, 94%. * Christal Castrejon MD - 10/21/2024 4:33 PM EDT Progress Note Hospital Day: 4, Admit Date: 10/18/2024 Chief complaint: Benjamin / Hypoxia Subjective: # Event overnight: No acute events reported This am patient is seen off of oxygen doing well Checked sat at bedside - noted to range from 93-95 with no significant drops Objective: Last Vitals Pulse:91,Resp:18,BP:(!) 152/68,SpO2:93 %,O2 Device: room air (none), Flow (L/min) (Oxygen Therapy):4, Weight:109 kg (239 lb 8 oz) Body mass index is 33.4 kg/m??. Temp Last 24 hrs: Temp Min: 97 ??F (36.1 ??C) Max: 98.6 ??F (37 ??C) Intake/Output Summary (Last 24 hours) at 10/21/2024 1634 Last data filed at 10/21/2024 1100 Gross per 24 hour Intake 380 ml Output 2200 ml Net -1820 ml Last Documented Bowel Movement - 10/20/24 (10/21/24 1100) Comfortable NAD Regular s1 s2 Lungs trace rhonchi Abd soft NT ND Ext warm Ma with yellow urine Diagnostic studies: Results from last 7 days Lab Units 10/20/24 0531 10/19/24 0416 10/18/24230110/18/24 1209 WHITE BLOOD CELL COUNT Thou/uL 12.5* 10.7 -- 10.6 HEMOGLOBIN g/dL 8.0* 7.6* -- 7.9* HEMATOCRIT % 24.5* 24.1* -- 25.6* HEMATOCRIT, POC % -- -- 25.0* -- PLATELET COUNT Thou/uL 210 192 -- 191 Results from last 7 days Lab Units 10/21/24 1145 10/20/24 0823 10/20/24 0531 10/19/24 0759 10/19/24 0416 10/18/24 2337 10/18/24230110/18/24202110/18/24 195 SODIUM mmol/L -- -- 143 -- 141 -- 138 -- 143 POTASSIUM mmol/L -- -- 4.0 -- 4.2 -- 4.3 -- 5.2* CHLORIDE mmol/L -- -- 108* -- 109* -- -- -- 111* CO2 mmol/L -- -- 22 -- 18* -- -- -- 18* BUN mg/dL -- -- 100* -- 91* -- -- -- 86* CREATININE mg/dL -- -- 6.6* -- 6.8* -- -- -- 7.1* EGFR -- -- 8* -- 8* -- -- -- 8* GLUCOSE POC mg/dL -- -- -- -- -- -- 206* -- -- GLUCOSE mg/dL -- -- 141* -- 193* -- -- -- 234* GLUCOSE, POC mg/dL 269* < > -- < > -- < > -- < > -- CALCIUM mg/dL -- -- 7.4* -- 7.6* -- -- -- 7.8* < > = values in this interval not displayed. Results from last 7 days Lab Units 10/20/24 0531 ALK PHOS U/L 150* BILIRUBIN TOTAL mg/dL 0.2* ALBUMIN g/dL 3.5 ALT U/L 23 AST U/L 37* Results from last 7 days Lab Units 10/20/24 0531 MAGNESIUM mg/dL 2.1 Lab Results Component Value Date CALCIUM 7.4 (L) 10/20/2024 PHOS 6.1 (H) 10/20/2024 Glucose POC Date Value Ref Range Status 10/18/2024 206 (H) 70 - 108 mg/dL Final Glucose Date Value Ref Range Status 10/20/2024 141 (H) 74 - 106 mg/dL Final Comment: Fasting: <100 mg/dL, Non-Fasting: <200 mg/dL (ADA 2004) 10/19/2024 193 (H) 74 - 106 mg/dL Final Comment: Fasting: <100 mg/dL, Non-Fasting: <200 mg/dL (ADA 2005) 10/18/2024 234 (H) 74 - 106 mg/dL Final Comment: Fasting: <100 mg/dL, Non-Fasting: <200 mg/dL (ADA 2005) 10/18/2024 368 (H) 74 - 106 mg/dL Final Comment: Fasting: <100 mg/dL, Non-Fasting: <200 mg/dL (ADA 2005) POC Glucose Date Value Ref Range Status 10/21/2024 269 (H) 65 - 99 mg/dL Final 10/21/2024 186 (H) 65 - 99 mg/dL Final Comment: Notified RN 10/20/2024 179 (H) 65 - 99 mg/dL Final Comment: Notified RN 10/20/2024 142 (H) 65 - 99 mg/dL Final Comment: Notified RN No results for input(s): SARSCOV2 , INFLAV , INFLBV in the last 72 hours. Blood Culture Results Since Admission No results found for this visit on 10/18/24. Urine Culture Results Since Admission No results found for this visit on 10/18/24. Imaging Studies: No images to review. Quality metrics: # Telemetry: Active Telemetry Order Indication - Hemodynamic Instability Continue Telemetry?: Yes Hemodynamic Instability # Diet: Diet Renal; 4 gm NA (No Added Salt); 2 gm K (Low Potassium) # Code status: Full Code # Ma catheter: Active Urethral Catheter (Ma) Order Indication - Need for frequent and accurate urine output measurements Continue Ma?: Yes Urinary retention / Hematuria / Neurogenic bladder Urethral Catheter (Adult) 10/18/24 1417 10 mL balloon size (Active) Number of days: 3 # Central lines: Scheduled medications 10/21/24 4:34 PM As needed medications: allopurinol, 100 mg, Oral, Daily amLODIPine, 10 mg, Oral, Daily atorvastatin, 40 mg, Oral, Daily [Provider Held] calcitRIOL, 0.25 mcg, Oral, Once per day on Thursday [START ON 10/22/2024] cefTRIAXone, 1 g, Intravenous, Q24H chlorhexidine gluconate, , Topical, Daily doxycyline, 100 mg, Intravenous, Q12H [Provider Held] gabapentin, 300 mg, Oral, BID heparin (porcine), 5,000 Units, Subcutaneous, Q8H BRI insulin glargine, 40 Units, Subcutaneous, Nightly insulin lispro, 1-11 Units, Subcutaneous, TID with meals methylPREDNISolone sodium succinate, 40 mg, Intravenous, Q8H BRI [START ON 10/22/2024] polyethylene glycol, 17 g, Oral, Daily senna-docusate, 2 tablet, Oral, Nightly sevelamer carbonate, 800 mg, Oral, TID with meals sodium bicarbonate, 1,300 mg, Oral, BID bisacodyl glucose OR glucose OR dextrose OR dextrose OR glucagon ipratropium-albuterol lactulose naloxone Current infusions: Assessment and plan: Mr. Kirk is a 69 y.o. male with history of CKD stage IC with unknown baseline Cr, HTN, DM, sciatica, history of temprorary HD, gout, HLD, obesity, who presented with encephalopathyand sob in which patient was transferred from [facility] in [place] for encephalopathy and hypoxia found to have pneumonia with RSV and superimposed bacterial infection and BENJAMIN on CKD with severe acidosis. Patientadmitted to the ICU, required Bipap - transitioned to nasal canual and then transferred to general floors after stabilization Acute hypoxic respiratory failure in the setting of RSV with secondary bacterial pneumonia noted morbid obesity Patient today seems to be maintaining off of oxygen Check in a.m. again with ambulation Ceftriaxone and doxy - prolonged QT - repeat EKG in am Change solumedrol to q12h BENJAMIN on CKD Discussed with Dr. Cadet - recheck again in am if stable can be discharged with folllow up with his primary statistician in [facility] Discussed this plan with patient Trial of void okay today as has had good urine output Sodium bicarb Anemia - chronic disease Remains stable DM Uncontrolled On insulin at home Added mealtime bolus Constipation Resolved with stool softeners Lung nodule - will need outpatient followup Communication: patient Discussed with CM - who will discuss transportation with patient Barriers to patient transition/ medical necessity requiring continued inpatient stay: monitor BMP Expected Date of Discharge: 10/22/2024 VTE Time Out IMPROVE SCORE: 3 (10/18/2024 11:17 AM) Interpretation - High Risk Chemical Prophylaxis heparin (porcine) 5000 unit/mL injection 5,000 Units Subcutaneous Every 8 hours scheduled Heparin Sodium (Porcine) 5000 Units Last dose 10/21/2024 2:42 PM Mechanical Prophylaxis SCDs are ordered - Bilateral (Knee High) Christal Castrejon MD 10/21/2024 4:34 PM * Rosa Lock OT - 10/21/2024 10:55 AM EDT Images from the original note were not included. Patient Information Today's Date: 10/21/2024 Patient Name: Ryan Kirk Date of : 1955 Room/Bed: [facility] 1024/[facility] 1024-01 Isolation: Droplet, Contact Preferred Language: Mozambican Patient History History of Present Illness Past Medical and Surgical History No past medical history on file. No past surgical history on file. Range of Motion and Manual Muscle Testing ROM & MMT BUE 4/5 gross gen deconditioning noted throughout Occupational Therapy Functional Status Patient Goal for Today's Session Get discharged Self Feeding (I) Grooming Setup, CG A sinkside Upper Body Dressing (I) Lower Body Dressing Mod A Transfers Min-CGAx1 using RW Toileting CG Activity Measure for Post-Acute Care (AM-PAC) Daily Activity Baseline [facility] Daily Activity Score: 24 Current [facility] Daily Activity Score: 18 Occupational Therapy Clinical Summary Occupational Therapy Clinical Impression Kati OT eval fairly well. Pt presents with gen weakness/deconditioning, dec act kati, new O2 needs and dec I c/ ADLs and mob. Pts mentation appears improved from overnnight but endorsing some mild confusion/forgetfulness. Pt will benefit from ongoing skilled OT services while inhouse and cont therapyservices in discharge environment OT Recommendations for Staff: Ax1 using RW OT Frequency: Therapy Frequency (OT): 2-3 times/wk during hospitalization Plan of Care Reviewed With: patient Rehab Plan of Care Patient requires ongoing skilled OT services due to deviation from baseline ADL status and related functional transfers as a result of acute illness. Patient is currently below prior level of function and has potential to achieve goal of maximizing functional independence with continuation of skilled occupational therapy intervention. The goal of therapy will be to improve functional strength, balance, and endurance in order to minimize risk forfuture falls and hospital readmissions. Current DME Needs: RW Current Self Care/Daily Activity Assistance Needs: Ax1 RW Transition Care Planning Patient's current level of function and post-acute rehab needs discussed with Case Coordination. Occupational Therapy Education Ryan Kirk educated on Occupational Therapy Plan of Care and Recommendations via Teach Back Method learning method(s). Ryan Kirk Demonstrates Active Involvement in Short and Field Collector Goal Setting. Occupational Therapy recommending ongoing educational training to reinforce skills andproficiency with functional activities. Occupational Therapy Evaluation Flowsheet Documentation 10/21/24 1055 OT Time and Intention OT Visit Type initial evaluation Mode of Treatment occupational therapy Patient Effort good General Information Patient Profile Reviewed yes Onset of Illness/Injury or Date of Surgery 10/18/[address] Castrejon Patient/Family/Caregiver Comments/Observations I have no clue how I ended up in [place]! General Observations of Patient Pt received laying supine in bed, ma, 4L NC O2, cleared by RN Existing Precautions/Restrictions fall;isolation: contact Limitations/Impairments safety/cognitive Previous Level of Function/Home Environm Activity/Exercise/Self-Care Comment Pt reports living with roommate in an apt, sister lives next door, no stairs to enter. HIGH WORKER, pt I c/ ADLs and mob. Walk-in shower, comfort height toilet. 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 Lives in [facility] Home Use of Assistive/Adaptive Equipment Equipment Currently Used at Home none Pain Assessment Pre/Posttreatment Pain Comment no pain reported Cognition Cognitive Status endorsing delirium overnnight, dec insight into deficits and situation, reports anxiety attack overnnight Activity Tolerance / Endurance Activity Tolerance / Endurance good Coping Observed Emotional State cooperative Verbalized Emotional State acceptance [facility] Daily Activity Putting on and taking off Lower Body Clothing? 2 Bathing (including washing/rinsing/drying)? 2 Toileting (includes using toilet, bedpan, or urinal)? 3 Putting on and taking off upper body clothing? 4 Taking care of personal grooming such as brushing teeth? 3 Eating meals? 4 [facility] Daily Activity Score 18 Therapy Assessment/Plan (OT) Patient/Family Therapy Goal Statement (OT) get out of the hospital Functional Level at Time of Evaluation (OT) Ax1 using RW Rehab Potential (OT) good Therapy Frequency (OT) 2-3 times/wk Therapy Plan Review/Discharge Plan (OT) Therapy Plan Review (OT) evaluation/treatment results reviewed;care plan/treatment goals reviewed;patient Equipment Needs Upon Discharge (OT) [facility] OT Recommendations for Staff Ax1 using RW OT Goals Bathing Goal Selection (OT) bathing, OT goal 1 Dressing Goal Selection (OT) dressing, OT goal 1 Toileting Goal Selection (OT) toileting, OT goal 1 Bathing Goal 1 (OT) [place] Level/Cues Needed (Bathing Goal 1, OT) independent Activity/Device (Bathing Goal 1, OT) bathing skills, all Time Frame (Bathing Goal 1, OT) short-term goal (STG) Dressing Goal 1 (OT) Activity/Device (Dressing Goal 1, OT) dressing skills, all Time Frame (Dressing Goal 1, OT) short-term goal (STG) [place]/Cues Needed (Dressing Goal 1, OT) independent Toileting Goal 1 (OT) Activity/Device (Toileting Goal 1, OT) toileting skills, all Time Frame (Toileting Goal 1, OT) short-term goal (STG) [place] Level/Cues Needed (Toileting Goal 1, OT) independent Signature * Lety Tavera RN - 10/20/2024 6:38 PM EDT - Pt arrived to 10s approx. 15:30. Pt A&O/forgetful at times, VSS - Pt has c/o pain at am insertion site and Pt has c/o feeling anxious, does not want door to room closed/ doesn't want to be alone. Per pt he feels like he may have a panic attack. Made electronic news gathering camera person Smiley RUIZ aware. 1x dose of tylenol ordered. - Safety maintained, call bridges within reach. * Mara Cadet MD - 10/20/2024 5:40 PM EDT Nephrology Progress Note Patient Name: Ryan Kirk Date of Visit: 10/20/24 Interim History: Pt on NC. Doing ok. TTE being done this morning Scheduled Meds: allopurinol, 100 mg, Oral, Daily amLODIPine, 10 mg, Oral, Daily atorvastatin, 40 mg, Oral, Daily [Provider Held] calcitRIOL, 0.25 mcg, Oral, Once per day on Thursday cefTRIAXone, 1 g, Intravenous, Q24H chlorhexidine gluconate, , Topical, Daily doxycyline, 100 mg, Intravenous, Q12H [Provider Held] gabapentin, 300 mg, Oral, BID heparin (porcine), 5,000 Units, Subcutaneous, Q8H BRI insulin glargine, 40 Units, Subcutaneous, Nightly insulin lispro, 1-11 Units, Subcutaneous, Q4H BRI methylPREDNISolone sodium succinate, 40 mg, Intravenous, Q8H BRI senna-docusate, 2 tablet, Oral, Nightly sevelamer carbonate, 800 mg, Oral, TID with meals sodium bicarbonate, 1,300 mg, Oral, BID Continuous Infusions: PRN Meds: bisacodyl glucose OR glucose OR dextrose OR dextrose OR glucagon ipratropium-albuterol lactulose naloxone Intake/Output Summary (Last 24 hours) at 10/20/2024 1740 Last data filed at 10/20/2024 1500 Gross per 24 hour Intake 2180.5 ml Output 1435 ml Net 745.5 ml Physical Exam: Last Vitals Pulse:99,Resp:(!) 22,BP:(!) 151/67,SpO2:95 %,Weight:109 kg (239 lb 3.2 oz) Temp Last 24 hrs: Temp Min: 97.6 ??F (36.4 ??C) Max: 98.6 ??F (37 ??C) No acute distress Lungs: grossly clear anteriorly, on NC CV: no rub Abd: non-tender Exts: no edema Neuro: no asterixis +Ma BMP Lab Results Component Value Date NA 143 10/20/2024 K 4.0 10/20/2024 CO2 22 10/20/2024 BUN 100 (H) 10/20/2024 CREAT 6.6 (H) 10/20/2024 GLUC 142 (H) 10/20/2024 GLUC 141 (H) 10/20/2024 GLUC 206 (H) 10/18/2024 CALCIUM 7.4 (L) 10/20/2024 PHOS 6.1 (H) 10/20/2024 CMP White Blood Cell Count Date Value Ref Range Status 10/20/2024 12.5 (H) 4.0 - 11.0 Thou/uL Final Hemoglobin Date Value Ref Range Status 10/20/2024 8.0 (L) 13.0 - 17.7 g/dL Final Hematocrit Date Value Ref Range Status 10/20/2024 24.5 (L) 39.0 - 54.0 % Final Platelet Count Date Value Ref Range Status 10/20/2024 210 150 - 450 Thou/uL Final Assessment: 69M with PMH of HTN, CKD4, DM, sciatica, who presents as transfer from [facility] for AMS, hypoxic resp failure and acidosis, with BENJAMIN on CKD. Plan: #BENJAMIN on CKD4 #HAGMA #HyperK #Hyperphosphatemia #Sepsis 2/2 RSV PNA Not sure what pt's baseline metal mover typically runs, does have baseline kidney dz with prev BENJAMIN req HD (iso obstructive stone per pt). Current metal mover is likely above his baseline. Home meds per [facility] records: allopurinol, gabapentin 300mg daily, insulin, amlodipine 2.5mg daily, atorvastatin, temazepam PRN; prev prescriptions of Mag ox, calcitriol, sodium bicarb, and lokelma. UA Large protein, UPCR 2.96. Large blood, 50 rbc. PTH 755 - c/w sodium bicarb 1300mg BID and phos binder - hold calcitriol + gabapentin -- resume calcitriol when phos <6 - strict Is/Os - no urgent dialytic needs, metal mover slowly improving. May warrant serologic workup given UA findings ofsubnephrotic protein + blood. Will try to reach out to pt's statistician Dr. Martínez ([facility]) to obtain more history. Signed: Mara Cadet MD [phone] (office) * Licha Glez MD - 10/20/2024 4:00 PM EDT FAMILY UPDATE Friends updated at bedside today . All questions and concerns addressed. Demonstrated understanding about his condition and plan of care as well as appreciation for the conversation. Licha Glez PGY2 Internal Medicine * Licha Glez MD - 10/20/2024 3:39 PM EDT Images from the original note were not included. Critical Care Progress Note Subjective Overnight events: Pt did not want to use BiPap Patient was examined at bedside. On my evaluation today pt did not offer any new complaints or concerns and was frustrated to go back to [place]. Pt was breathing comfortably on NC. Objective Last Vitals Pulse:99,Resp:(!) 22,BP:(!) 151/67,SpO2:95 % O2 Device: nasal cannula Flow (L/min) (Oxygen Therapy): 4, Weight:109 kg (239 lb 3.2 oz) Temp Last 24 hrs: Temp Min: 97.6 ??F (36.4 ??C) Max: 98.6 ??F (37 ??C) Last temp: 97.7 ??F (36.5 ??C) (Oral) Physical Exam GEN: Appears as stated age, in no acute distress, increased body habitus EYES: sclera anicteric, conjuctival pallor -ve ENT: Oropharynx with moist mucous membranes CVS: S1, S2, regular rate and rhythm, no murmurs appreciated; no JVD; peripheral pulses are 2+, no pitting edema RESP: On NC, B/L wheezing GI: Abdomen is soft, NT, ND, + bowel sounds, no rebound, guarding, or organomegaly SKIN: Warm, dry, no rashes NEURO: AOx3, Moving all extremities. Sensation intact Ventilator Settings Vent Mode: Rate set: Tidal volume: Insp Pressure: FIO2: PEEP: Press Support: Lines: 24hr Intake and Output Intake/Output Summary (Last 24 hours) at 10/20/2024 1600 Last data filed at 10/20/2024 1500 Gross per 24 hour Intake 2180.5 ml Output 1685 ml Net 495.5 ml Assessment & Plan Ryan Kirk is a 69 y.o. male with a PMHx of CKD stage IV unknown BCR, HTN, diabetes, sciatica, bladder stone, hx of temporary HD via nkechi cath, gout, HLD, BMI 33, presenting with altered mentalstatus and shortness of breath. Admitted to [facility] ICU for management of acute hypoxic hypercarbic respiratory failure with severe high anion gap metabolic acidosis likely in setting of multifocal pneumonia and RSV infection. Plan: Neuro/Psych No active issues Patient is AOx3 Neurochecks every 4 hours Currently holding gabapentin to avoid oversedation Cardiovascular Non-IA troponin elevation Prolonged QT interval Patient is currently hemodynamically stable Keep MAP greater than 65 BNP at outside hospital 668 and troponin 300s. Will recheck BNP and troponin. K >4 and Mg >2 Daily EKGs Pulmonary Acute hypoxic hypercarbic respiratory failure Multifocal Pneumonia RSV infection Wheezing Unknown baseline CO2 status could possibly be hypercarbic at baseline VBG at outside hospital pH 7.07, CO2 55, O2 45, HCO3 16 Xray at outside hospital showed bilateral opacities R>L CT chest abdomen pelvis without contrast here showed patchy groundglass opacities at the right lungmost tolerated the right upper lobe. Bilateral lower lobe atelectasis with small bilateral pleural effusions. 9 mm left perifissural lung nodule. -FU of lung nodule as an out pt. -Solumedrol 40 q8h added GI No active issues Bowel regimen Renal HAGMA-improving BENJAMIN on CKD IV unknown bcr Hx of bladder stone Hypomagnesemia-resolved Hyperkaelmia Hyperphosphatemia PTH 755, phos 6.6, beta OH 0.30, Cr 7.0, BUN 80, AG 16 SP D5 with 150 of sodium bicarbonate at 100 cc an hour. 10/19: ABG 7.31/37/46/19. Showing improvement from previous. On Sodium Bicarb tabs 1300 mg BID Infectious Disease Multifocal pneumonia RSV infection CT chest abdomen pelvis without contrast here showed patchy groundglass opacities at the right lungmost tolerated the right upper lobe. Bilateral lower lobe atelectasis with small bilateral pleural effusions. 9 mm left perifissural lung nodule No leukocytosis or lactic acidosis Currently being treated with ceftriaxone and doxycycline due to prolonged QT interval. (D1 10/17/24) MRSA swab negative Pending urine and blood cultures Will send sputum cultures, urine Legionella Droplet isolation Metabolic/Endocrine Type 2 diabetes Hyperlipidemia Patient takes 60 units of Tresiba at night insulin sliding scale (severe) Will allow diet and increase basal insulin as needed Hypoglycemia prevention Heme/Onc Anemia of chronic disease 2/2 CKD IV FU CBC in AM Nephrology on board appreciate recs MSK No active issues Gout Continue allopurinol 100 mg daily PT OT pending Licha Glez MD PGY2 10/20/2024 4:00 PM Associated attestation - Hadley Johnson MD - 10/21/2024 2:50 PM EDT Attestation to the resident note with the same day of service: I have seen and examined the patient. I have reviewed the relevant labs, radiologic studies and campaign consultant notes. Please refer to my note. * Licha Glez MD - 10/20/2024 2:25 PM EDT TRANSFER NOTE: Ryan Kirk is a 69 y.o. male with a PMHx of CKD stage IV unknown BCR, HTN, diabetes, sciatica, bladder stone, hx of temporary HD via nkechi cath, gout, HLD, BMI 33, presenting with altered mentalstatus and shortness of breath. Admitted to [facility] ICU for management of acute hypoxic hypercarbic respiratory failure with severe high anion gap metabolic acidosis likely in setting of multifocal pneumonia and RSV infection. Pt medically stable to be transferred to floors. Plan: Neuro/Psych Holding gabapentin to avoid oversedation Pulmonary Acute hypoxic hypercarbic respiratory failure Multifocal Pneumonia RSV infection Wheezing Unknown baseline CO2 status could possibly be hypercarbic at baseline VBG at outside hospital pH 7.07, CO2 55, O2 45, HCO3 16 Xray at outside hospital showed bilateral opacities R>L CT chest abdomen pelvis without contrast here showed patchy groundglass opacities at the right lungmost tolerated the right upper lobe. Bilateral lower lobe atelectasis with small bilateral pleural effusions. 9 mm left perifissural lung nodule. -FU of lung nodule as an out pt. -Solumedrol 40 q8h added Renal HAGMA-improving BENJAMIN on CKD IV unknown bcr Hx of bladder stone Hypomagnesemia-resolved Hyperkalemia-resolved Hyperphosphatemia PTH 755, phos 6.6, beta OH 0.30, Cr 7.0, BUN 80, AG 16 Currently correcting the acidosis with D5 with 150 of sodium bicarbonate at 100 cc an hour. 10/19: ABG 7.31/37/46/19. Showing improvement from previous. Infectious Disease Multifocal pneumonia RSV infection CT chest abdomen pelvis without contrast here showed patchy groundglass opacities at the right lungmost tolerated the right upper lobe. Bilateral lower lobe atelectasis with small bilateral pleural effusions. 9 mm left perifissural lung nodule No leukocytosis or lactic acidosis Currently being treated with ceftriaxone and doxycycline due to prolonged QT interval. (D1 10/17/24) Heme/Onc Anemia of chronic disease 2/2 CKD IV FU CBC in AM Nephrology on board PT/OT pending Patient is transferred to floors, in room 1024. Signout given to Dr. Bejarano, attending hospitalist. Licha Glez PGY2 Internal Medicine * Camryn Mcdaniel LMSW - 10/20/2024 9:06 AM EDT Patient was referred to [facility] for screening. * Hadley Johnson MD - 10/20/2024 7:48 AM EDT Critical Care Progress Note Date of Consult: 10/20/2024 Patient's Primary Care Provider: No primary care provider on file. Physician Requesting Consult: CLC Reason for Consultation: resp distress and AMS Admit Date: 10/18/2024 10:27 AM HPI / Subjective 69 y o M w morbid obesity, DM, HTN, CKD, DLP presents on 10/18 as a transfer from [facility] for management of encephalopathy and hypoxia. He initially presented to their hospital for 1-day hxof generalized weakness, lethargy and SOB after a road trip to [place]. Upon arrival to their ED was found to be febrile, tachycardic, tachypneic, wheezing and hypoxic 85%on room air. Diagnosed w PNA and BENJAMIN (creat 6.3), with acidosis PH 7.07, subsequently placed on BIPAP and bicarb drip. Tested + for RSV Clinically the patient is Aox3, BIPAP, Remains HD stable. CT Chest/Abd + for R Lung GGO consistent w PNA Overnight event: none Assessment & Plan 1- metab encephalopathy 2- acute hypoxic resp failure 3- PNA 4- BENJAMIN on CKD w non AG metab acidosis 5- RSV infection 6- morbid obesity 7- Hypomagnesemia Neuro: 1- AOX3, encephalopathy sec to severe acidosis, now improved Cardiovasc/Resp: 1- HD stable 2- ARF: sec to PNA in setting of RSV infection and morbid obesity - off BIPAP, stable on NC, BIPAP at night and PRN - ABG corrected - treat PNA 3- bronchodilator PRN for wheezing, start solumedrol 40q8 4- TTE pending, concern for enlarged RV ID: 1- broad sprectrum abx w ceftriaxone + azithroy - resp cult pending - legionella and strep neg GI: 1- PO diet Renal: 1- BENJAMIN on CKD: - coude cath by , no obstructive uropathy on CT - nephro following, D/C IVF drip, start bicarb PO 1300 TID Endo: 1- DM: SS Prophylaxis: -DVT (hep) Code Status: Full code Improved clinically, Hd stable, good mentation, on nc, acidosis corrected. Can be transferred to floor. Critical Care Time Spent: 50 minutes Objective Medications No Known Allergies Vitals: 10/20/24 0200 10/20/24 0400 10/20/24 0418 10/20/24 0600 BP: (!) 141/67 139/81 (!) 147/68 BP Location: Right arm Right arm Right arm Patient Position: Lying Lying Lying Pulse: 91 86 84 Resp: 17 17 13 Temp: 98.6 ??F (37 ??C) TempSrc: Oral SpO2: 93% 95% 96% Weight: 109 kg (239 lb 3.2 oz) Height: Intake & Output: Date 10/19/24 2300 - 10/20/24 0659 10/20/24 0700 - 10/21/24 0659 Shift 4256-1643 24 Hour Total 2144-9389 7718-2341 3814-5587 24 Hour Total INTAKE P.O. 240 240 P.O. 240 240 I.V.(mL/kg) 430(4) 1807.5(16.7) I.V. 10 10 NS Flush Volume ([REMOVED] Peripheral IV - Single Lumen (Adult) 10/18/24 1200 metacarpal vein (top of hand), right 22 gauge) 10 NS Flush Volume ([REMOVED] Peripheral IV - Single Lumen (Adult) 10/18/24 1200 20 gauge) 10 NS Flush Volume (Peripheral IV - Single Lumen (Adult) 10/19/24 1430 median vein (underside of arm),left 20 gauge) 10 30 NS Flush Volume (Peripheral IV - Single Lumen (Adult) 10/20/24 0105 median vein (underside of arm),right 20 gauge) 10 10 Volume (mL) (dextrose 5 % (D5W) 1,000 mL with sodium bicarbonate 150 mEq infusion) 400 1737.5 IV Piggyback 50 Volume (mL) (magnesium sulfate IVPB 2 g in 50 mL SW PREMIX) 50 Shift Total(mL/kg) 670(6.2) 2097.5(19.3) OUTPUT Urine(mL/kg/hr) 435(0.5) 1300(0.5) Urine Output (mL) (Urethral Catheter (Adult) 10/18/24 1417 10 mL balloon size) 435 1300 Stool Unmeasured Stool Occurrence 0 x 0 x Shift Total(mL/kg) 435(4) 1300(12) NET 235 797.5 Weight (kg) 108.5 108.5 108.5 108.5 108.5 108.5 Physical Exam Aox3, no focal deficit RRR BS decreased, coarse Abd distended but soft No CVA tenderness No leg swelling Warm Good capil refil Current Ventilator/Noninvasive Ventilator/Oxygen Settings: Imaging Studies: CT Chest/Abd 10/18/24: Limited by lack of intravenous contrast Patchy groundglass opacities at the right lung most prominent at the right upper lobe. This may represent an infectious or inflammatory etiology. Pneumonia cannot be excluded and clinical correlationis recommended. Bilateral lower lobe atelectasis with small bilateral pleural effusions 9 mm left perifissural lung nodule Hadley Johnson MD 10/20/2024 7:48 AM * Mara Cadet MD - 10/19/2024 10:39 AM EDT Nephrology Progress Note Patient Name: Ryan Kirk Date of Visit: 10/19/24 Interim History: Pt on NC now, off BIPAP. Feels well. CT with no hydro or stones. Has ma, making some urine. Scheduled Meds: allopurinol, 100 mg, Oral, Daily amLODIPine, 10 mg, Oral, Daily atorvastatin, 40 mg, Oral, Daily [Provider Held] calcitRIOL, 0.25 mcg, Oral, Once per day on Thursday cefTRIAXone, 1 g, Intravenous, Q24H chlorhexidine gluconate, , Topical, Daily doxycyline, 100 mg, Intravenous, Q12H [Provider Held] gabapentin, 300 mg, Oral, BID heparin (porcine), 5,000 Units, Subcutaneous, Q8H BRI insulin glargine, 40 Units, Subcutaneous, Nightly insulin lispro, 1-11 Units, Subcutaneous, Q4H BRI magnesium sulfate IV, 2 g, Intravenous, Once senna-docusate, 2 tablet, Oral, Nightly sevelamer carbonate, 800 mg, Oral, TID with meals Continuous Infusions: dextrose 5 % (D5W) 1,000 mL with sodium bicarbonate 150 mEq infusion, 100 mL/hr, Last Rate: 100 mL/hr (10/19/24 0600) PRN Meds: bisacodyl glucose OR glucose OR dextrose OR dextrose OR glucagon lactulose naloxone Intake/Output Summary (Last 24 hours) at 10/19/2024 1039 Last data filed at 10/19/2024 0900 Gross per 24 hour Intake 665 ml Output 695 ml Net -30 ml Physical Exam: Last Vitals Pulse:92,Resp:17,BP:(!) 141/67,SpO2:94 %,Weight:107 kg (236 lb 8.9 oz) Temp Last 24 hrs: Temp Min: 97.4 ??F (36.3 ??C) Max: 98.2 ??F (36.8 ??C) No acute distress Lungs: grossly clear anteriorly, on NC CV: no rub Abd: non-tender Exts: no edema Neuro: no asterixis +Ma BMP Lab Results Component Value Date NA 141 10/19/2024 K 4.2 10/19/2024 CO2 18 (L) 10/19/2024 BUN 91 (H) 10/19/2024 CREAT 6.8 (H) 10/19/2024 GLUC 205 (H) 10/19/2024 GLUC 193 (H) 10/19/2024 GLUC 206 (H) 10/18/2024 CALCIUM 7.6 (L) 10/19/2024 PHOS 7.1 (H) 10/19/2024 CMP White Blood Cell Count Date Value Ref Range Status 10/19/2024 10.7 4.0 - 11.0 Thou/uL Final Hemoglobin Date Value Ref Range Status 10/19/2024 7.6 (L) 13.0 - 17.7 g/dL Final Hematocrit Date Value Ref Range Status 10/19/2024 24.1 (L) 39.0 - 54.0 % Final Platelet Count Date Value Ref Range Status 10/19/2024 192 150 - 450 Thou/uL Final Assessment: 69M with PMH of HTN, CKD4, DM, sciatica, who presents as transfer from [facility] for AMS, hypoxic resp failure and acidosis, with BENJAMIN on CKD. Plan: #BENJAMIN on CKD4 #HAGMA #HyperK #Hyperphosphatemia #Sepsis 2/2 RSV PNA Not sure what pt's baseline metal mover typically runs, does have baseline kidney dz with prev BENJAMIN req HD (iso obstructive stone per pt). Current metal mover is likely above his baseline. Home meds per [facility] records: allopurinol, gabapentin 300mg daily, insulin, amlodipine 2.5mg daily, atorvastatin, temazepam PRN; prev prescriptions of Mag ox, calcitriol, sodium bicarb, and lokelma. UA Large protein, UPCR 2.96. Large blood, 50 rbc. PTH 755 - start on sodium bicarb 1300mg BID - abx - low K/phos diet, and would start phos binder - hold calcitriol + gabapentin -- resume calcitriol when phos <6 - strict Is/Os - no urgent dialytic needs, metal mover mildly improved. Making some urine. May warrant serologic workup given UA findings of subnephrotic protein + blood. Will try to reach out to pt's statistician Dr. Martínez ([facility]) to obtain more history. Signed: Mara Cadet MD [phone] (office) * Barb Hoffmann MD - 10/19/2024 8:55 AM EDT Critical Care Progress Note Chief Complaint: f/u on Principal Problem: Acute hypoxic respiratory failure (HCC) (POA: Yes) Resolved Problems: Subjective There were no overnight events as per nursing staff and night team. Patient states that his breathing feels better he is reporting on and off cough. He states he had a very large bowel movements in [facility] has not had any so far. States that he is hungry wants to eat something. Had questions regarding the BiPAP and his requirement to stay in the PCU, concerns addressed. Objective Last Vitals Pulse:84,Resp:14,BP:133/64,SpO2:96 % O2 Device: nasal cannula Flow (L/min) (Oxygen Therapy): 4, Weight:107 kg (236 lb 8.9 oz) Temp Last 24 hrs: Temp Min: 97.4 ??F (36.3 ??C) Max: 98.2 ??F (36.8 ??C) Last temp: 98.2 ??F (36.8 ??C) (Oral) Physical Exam General: Sitting in bed, on NC, not in acute distress HEENT: No conjunctival pallor or scleral icterus, normal hearing CVS: S1-S2 heard, no murmurs, regular rate and rhythm Respiratory: Decreased breath sounds at bilateral bases with right worse than left, coarse rhonchi on upper zones, tachyapneic, wheezing++ Abdominal: Soft but slightly distended, bowel sounds present Musculoskeletal: Able to move all extremities Skin: No new bruises or injury rivero noted on exposed areas of the skin Neuro: AOx3, follows commands, demonstrates higher cognitive function, able to speak in clear sentences with appropriate speech. No focal weakness. Peripheral IV - Single Lumen (Adult) 10/18/24 1200 metacarpal vein (top of hand), right 22 gauge (Active) Number of days: 1 Peripheral IV - Single Lumen (Adult) 10/18/24 1200 20 gauge (Active) Number of days: 1 24hr Intake and Output Intake/Output Summary (Last 24 hours) at 10/19/2024 0855 Last data filed at 10/19/2024 0600 Gross per 24 hour Intake 665 ml Output 510 ml Net 155 ml Inpatient Medications Medications Scheduled Medication Ordered Dose/Rate, Route, Frequency Last Action allopurinol (ZYLOPRIM) tablet 100 mg 100 mg, PO, Daily Given, 100 mg at 10/18 1432 amLODIPine (NORVASC) tablet 10 mg 10 mg, PO, Daily Given, 10 mg at 10/18 1432 atorvastatin (LIPITOR) tablet 40 mg 40 mg, PO, Daily Given, 40 mg at 10/18 1432 [Provider Held] calcitRIOL (ROCALTROL) capsule 0.25 mcg On hold since yesterday at 1205 until manually unheld; held by Miriam Simmons Reason: Other - Comment required On hold since yesterday at 1205 until manually unheld Hold reason: Other - Comment required 0.25 mcg, PO, 3x weekly Ordered cefTRIAXone (ROCEPHIN) IV Push 1 g 1 g, IV, Q24H Given, 1 g at 10/18 1302 chlorhexidine gluconate 2 % wipes - urethral catheter CHG application No Dose/Rate, TOP, Daily Ordered doxycycline (VIBRAMYCIN) 100 mg in sodium chloride-MBP (NS) 100 mL IVPB-MBP 100 mg, 50 mL/hr, IV, Q12H Stopped, 10/19 0145 [Provider Held] gabapentin (NEURONTIN) capsule 300 mg On hold since yesterday at 1127 until manually unheld; held by Miriam Simmons Reason: Change in vital signs On hold since yesterday at 1127 until manually unheld Hold reason: Change in vital signs 300 mg, PO, BID Ordered heparin (porcine) 5000 unit/mL injection 5,000 Units 5,000 Units, SC, Q8H BRI Given, 5,000 Units at 10/19 0614 insulin glargine (LANtus/SEMGLEE) 100 units/mL injection 30 Units 30 Units, SC, Nightly Given, 30 Units at 10/18 2041 insulin lispro (HumaLOG/ADMELOG) 100 units/mL injection 1-11 Units 1-11 Units, SC, Q4H BRI Given, 2 Units at 10/19 0417 senna-docusate (SENNA-S) 8.6-50 MG tablet 2 tablet 2 tablet, PO, Nightly Ordered sevelamer carbonate (RENVELA) packet 800 mg 800 mg, PO, TID with meals Ordered Continuous Medication Ordered Dose/Rate, Route, Frequency Last Action dextrose 5 % (D5W) 1,000 mL with sodium bicarbonate 150 mEq infusion 100 mL/hr, 100 mL/hr, IV, Continuous Rate/Dose Verify, 100 mL/hr, 100 mL/hr at 10/19 0600 PRN Medication Ordered Dose/Rate, Route, Frequency Last Action bisacodyl (DULCOLAX) suppository 10 mg 10 mg, RE, Daily PRN Ordered dextrose 50 % solution 12.5 g (Or Linked Group #1) 12.5 g, IV, Q15 Min PRN Ordered dextrose 50 % solution 25 g (Or Linked Group #1) 25 g, IV, Q15 Min PRN Ordered glucagon (GLUCAGEN) injection 1 mg (Or Linked Group #1) 1 mg, IM, Daily PRN Ordered glucose (GLUTOSE 15) 40 % oral gel 37.5 g (Or Linked Group #1) 1 Tube, PO, Q15 Min PRN Ordered glucose (GLUTOSE 15) 40 % oral gel 75 g (Or Linked Group #1) 2 Tube, PO, Q15 Min PRN Ordered lactulose (ENULOSE) 10 gm/15 mL solution 20 g 30 mL, PO, Q4H PRN Ordered naloxone (NARCAN) 0.4 mg/mL injection 0.4 mg 0.4 mg, IV, Q5 Min PRN Ordered Labs Lab Results Component Value Date HGB 7.6 (L) 10/19/2024 WBC 10.7 10/19/2024 PLT 192 10/19/2024 Lab Results Component Value Date NA 141 10/19/2024 K 4.2 10/19/2024 CO2 18 (L) 10/19/2024 CL 109 (H) 10/19/2024 MG 1.9 10/19/2024 PHOS 7.1 (H) 10/19/2024 BUN 91 (H) 10/19/2024 CREAT 6.8 (H) 10/19/2024 CALCIUM 7.6 (L) 10/19/2024 ALT 22 10/19/2024 AST 35 (H) 10/19/2024 ALKPHOS 142 (H) 10/19/2024 BILITOT 0.2 (L) 10/19/2024 LACTIC 1.2 10/18/2024 Lab Results Component Value Date GLUC 205 (H) 10/19/2024 GLUC 193 (H) 10/19/2024 GLUC 179 (H) 10/19/2024 No results found for: BNP , TNI , JACKIE , TROPIHIGH No results found for: CKTOTAL , CKMB , CKMBINDEX No results found for: CRP , FERRITIN , DDIMER , PROCALC , LDH Lab Results Component Value Date PHA 7.31 (L) 10/19/2024 PCO2 37 10/19/2024 PO2 46 (LL) 10/19/2024 HCO3 19.0 (L) 10/19/2024 O2SAT 71.0 (L) 10/19/2024 No results found for: TSH No results found for: TOXSCRN Results from last 7 days Lab Units 10/18/24 1726 COLOR UA Yellow CLARITY UA Clear SPECIFIC GRAVITY UA 1.016 PH UA 5.0 PROTEIN UA Large (300 mg/dL)* GLUCOSE, URINE mg/dL Moderate KETONES UA Negative BLOOD UA Large* NITRITE UA Negative LEUKOCYTE ESTERASE UA Negative BILIRUBIN UA Negative Microbiology data: Culture Date Value Ref Range Status 10/18/2024 Sterile <24 hours Preliminary 10/18/2024 Sterile <24 hours Preliminary Assessment & Plan Ryan Kirk is a 69 y.o. male with a PMHx of CKD stage IV unknown BCR, HTN, diabetes, sciatica, bladder stone, hx of temporary HD via nkechi cath, gout, HLD, BMI 33, presenting with altered mentalstatus and shortness of breath. Admitted to [facility] ICU for management of acute hypoxic hypercarbic respiratory failure with severe high anion gap metabolic acidosis likely in setting of multifocal pneumonia and RSV infection. Today we repeated a blood gas and patient continued need bicarb treatment and occasional BiPAP support. Neuro/Psych No active issues Patient is AOx3 Neurochecks every 4 hours Currently holding gabapentin to avoid oversedation Cardiovascular No active issues Possible heart failure Non-IA troponin elevation Prolonged QT interval Patient is currently hemodynamically stable Keep MAP greater than 65 BNP at outside hospital 668 and troponin 300s. Will recheck BNP and troponin. Keep K greater than 4 and mag greater than 2 Daily EKGs Pulmonary Acute hypoxic hypercarbic respiratory failure Multifocal Pneumonia RSV infection Unknown baseline CO2 status could possibly be hypercarbic at baseline VBG at outside hospital pH 7.07, CO2 55, O2 45, HCO3 16 Xray at outside hospital showed bilateral opacities R>L CT chest abdomen pelvis without contrast here showed patchy groundglass opacities at the right lungmost tolerated the right upper lobe. Bilateral lower lobe atelectasis with small bilateral pleural effusions. 9 mm left perifissural lung nodule GI No active issues Bowel regimen Renal HAGMA-improving BENJAMIN on CKD IV unknown bcr Hx of bladder stone Hypomagnesemia-resolved Hyperkaelmia Hyperphosphatemia PTH 755, phos 6.6, beta OH 0.30, Cr 7.0, BUN 80, AG 16 Currently correcting the acidosis with D5 with 150 of sodium bicarbonate at 100 cc an hour. ABG 7.31/37/46/19. Showing improvement from previous. Infectious Disease Multifocal pneumonia RSV infection CT chest abdomen pelvis without contrast here showed patchy groundglass opacities at the right lungmost tolerated the right upper lobe. Bilateral lower lobe atelectasis with small bilateral pleural effusions. 9 mm left perifissural lung nodule No leukocytosis or lactic acidosis Currently being treated with ceftriaxone and doxycycline due to prolonged QT interval. (D1 10/17/24) MRSA swab negative Pending urine and blood cultures Will send sputum cultures, urine Legionella Droplet isolation Metabolic/Endocrine Type 2 diabetes Hyperlipidemia Patient takes 60 units of Tresiba at night insulin sliding scale (severe) Will allow diet and increase basal insulin as needed Hypoglycemia prevention Heme/Onc Anemia of chronic disease 2/2 CKD IV CBC in a.m., nephrology on board appreciate recs MSK No active issues Gout Continue allopurinol 100 mg daily Code status: Full Code Diet: renal diet DVT Prophylaxis: heparin TID and SCD Communication: Patient updated on plan of care. Above plan discussed with my attending, with addendum to follow. Barb Hoffmann MD PGY2 Available on [employer] 10/19/2024 8:55 AM Associated attestation - Hadley Johnson MD - 10/21/2024 2:50 PM EDT Attestation to the resident note with the same day of service: I have seen and examined the patient. I have reviewed the relevant labs, radiologic studies and campaign consultant notes. Please refer to my note. * Hadley Johnson MD - 10/19/2024 8:34 AM EDT Critical Care Consult Note Date of Consult: 10/19/2024 Patient's Primary Care Provider: No primary care provider on file. Physician Requesting Consult: CLC Reason for Consultation: resp distress and AMS Admit Date: 10/18/2024 10:27 AM HPI / Subjective 69 y o M w morbid obesity, DM, HTN, CKD, DLP presents on 10/18 as a transfer from [place] for management of encephalopathy and hypoxia. He initially presented to their hospital for 1-day hxof generalized weakness, lethargy and SOB after a road trip to [place]. Upon arrival to their ED was found to be febrile, tachycardic, tachypneic, wheezing and hypoxic 85%on room air. Diagnosed w PNA and BNEJAMIN (creat 6.3), with acidosis PH 7.07, subsequently placed on BIPAP and bicarb drip. Tested + for RSV Clinically the patient is Aox3, BIPAP, Remains HD stable. CT Chest/Abd + for R Lung GGO consistent w PNA Overnight event: none Assessment & Plan 1- metab encephalopathy 2- acute hypoxic resp failure 3- PNA 4- BENJAMIN on CKD w non AG metab acidosis 5- RSV infection 6- morbid obesity 7- Hypomagnesemia Neuro: 1- AOX3, encephalopathy sec to severe acidosis, now improved Cardiovasc/Resp: 1- HD stable 2- ARF: sec to PNA in setting of RSV infection and morbid obesity - repeat xray - off BIPAP, stable on NC - trend ABG - treat PNA - would consider steroid if evidence of bacterial PNA/consolidation w worsening O2 requirements 3- bronchodilator PRN for wheezing ID: 1- broad sprectrum abx w ceftriaxone + azithroy - resp cult pending - legionella and strep neg GI: 1- NPO Renal: 1- BENJAMIN on CKD: - coude cath by EMILIANO, no obstructive uropathy on CT - cont bicarb drip Endo: 1- DM: SS Prophylaxis: -DVT (hep) -GI Code Status: Full code Cont PCU Critical Care Time Spent: 60 minutes Objective Medications No Known Allergies Vitals: 10/19/24 0300 10/19/24 0400 10/19/24 0500 10/19/24 0600 BP: 126/63 135/66 127/62 133/64 Pulse: 81 86 83 84 Resp: 17 (!) 24 (!) 21 14 Temp: 98.2 ??F (36.8 ??C) TempSrc: Oral SpO2: 96% 96% 96% 96% Weight: 107 kg (236 lb 8.9 oz) Height: Intake & Output: Date 10/18/24 2300 - 10/19/24 0659 10/19/24 0700 - 10/20/24 0659 Shift 4656-1039 24 Hour Total 2218-8348 0825-2903 0300-6594 24 Hour Total INTAKE I.V.(mL/kg) 645(6) 665(6.2) NS Flush Volume (Peripheral IV - Single Lumen (Adult) 10/18/24 1200 metacarpal vein (top of hand), right 22 gauge) 10 NS Flush Volume (Peripheral IV - Single Lumen (Adult) 03/25/25 1200 20 gauge) 10 Volume (mL) (dextrose 5 % (D5W) 1,000 mL with sodium bicarbonate 150 mEq infusion) 645 645 Shift Total(mL/kg) 645(6) 665(6.2) OUTPUT Urine(mL/kg/hr) 290(0.3) 510(0.2) Urine 200 Urine Output (mL) (Urethral Catheter (Adult) 10/18/24 1417 10 mL balloon size) 290 310 Shift Total(mL/kg) 290(2.7) 510(4.8) NET 355 155 Weight (kg) 107.3 107.3 107.3 107.3 107.3 107.3 Physical Exam Aox3, no focal deficit RRR BS decreased, coarse Abd distended but soft No CVA tenderness No leg swelling Warm Good capil refil Current Ventilator/Noninvasive Ventilator/Oxygen Settings: Imaging Studies: CT Chest/Abd 10/18/24: Limited by lack of intravenous contrast Patchy groundglass opacities at the right lung most prominent at the right upper lobe. This may represent an infectious or inflammatory etiology. Pneumonia cannot be excluded and clinical correlationis recommended. Bilateral lower lobe atelectasis with small bilateral pleural effusions 9 mm left perifissural lung nodule Hadley Johnson MD 10/19/2024 8:34 AM * Marcelino Garcia MD - 10/18/2024 11:07 AM EDT Patient evaluated during evening rounds. 69-year-old male with past medical history of stage IV CKDand diagnosis of RSV leading to pneumonia at outside hospital transferred for ICU admission to [facility]. Patient has history of receiving temporary hemodialysis via Nkechi cath in the past. Patient was placed on BiPAP and was transferred to [facility]. Labs significant for acute on chronic renal failure with worsening BUN and creatinine and hyperkalemia. Patient is oliguric. CT scan was done which was negative for acute obstruction. Will change IV fluids to 150 meq sodium bicarb drip at 100 mL/h. Patient stephon as needed BiPAP. Follow-up ABG to look for improvement in metabolic acidosis . Monitor urine output closely. Follow-up with nephrology and urology. Additional critical care time spent 30 minutes documented in this encounter H&P Notes * Barb Hoffmann MD - 10/18/2024 3:59 PM EDT Critical Care History & Physical Admit Date: 10/18/2024 10:27 AM Patient's Primary Care Provider: No primary care provider on file. Subjective Chief Complaint Shortness of breath History of Present Illness Ryan Kirk is a 69 y.o. male with a PMHx of CKD stage IV unknown BCR, HTN, diabetes, sciatica, bladder stone, hx of temporary HD via nkechi cath, gout, HLD, BMI 33, presenting with altered mentalstatus and shortness of breath. Per patient he was taking a road trip with a friend to [place] to help them move. He noticed some shortness of breath with cough during that trip and after coming back home his cough further increased and he felt more tired. Per chart records family i.e. sister called EMS because he was not responding well was very tired and having hallucination. EMS at scene found patient tachycardic tachypneic with a fever and increased oxygen requirements, he was saturating 85% room air and on 6 L 93%. Subsequently was placed on nonrebreather and brought to the emergency department in [place]. In ED at outside hospital patient was found to have BENJAMIN on CKD, low magnesium 1.2, elevated troponin of 321, no chest pain, they gave 2 g of IV mag and started bicarb drip due to profound acidosis. VBG pH 7.07, CO2 55, O2 45, HCO3 16. Machine Repair Person at outside hospital said no urgent dialytic need. Subsequently RSV was positive and chest x-ray revealed bilateral consolidation right greater than left concerning for multifocal pneumonia. Given there were no ICU beds available at the center they decided to transfer the patient to us. Patient here is on BiPAP 14/5 with respiratory rate of 18. He states that he is feeling better after being on BiPAP and is tolerating the mask well. He still states that he has some degree of shortness of breath which is rapidly improving. He did not report any flank pain nausea vomiting or diarrhea. Says that he does not use any form of NSAIDs. He has a history of bladder stones and had bladder obstruction requiring nephrostomy tubes a few years ago. Gets regular scans and follows with a stone specialist for this. He had a renal ultrasound approximately 2 weeks ago but he's still waiting for the results. Later in the day urology KALE placed a 16 [place] coud?? his Ma with clear yellow urine. Patient stated that he is unmarried does not have children his sister Earlene is the decision-maker in case he is not able to make any decisions, [phone]. [phone] Dr Angeles PCP Objective Physical Exam Patient Vitals for the past 8 hrs: BP Temp Temp src Pulse Resp SpO2 Height Weight 10/18/24 1500 (!) 112/58 -- -- 80 19 97 % -- -- 10/18/24 1432 118/64 -- -- -- -- -- 1.803 m (5' 11 ) 106 kg (233 lb 11 oz) 10/18/24 1400 132/68 -- -- 90 (!) 22 100 % -- -- 10/18/24 1346 -- -- -- 88 -- 99 % -- -- 10/18/24 1200 (!) 118/56 97.4 ??F (36.3 ??C) Axillary 93 (!) 23 98 % -- -- 10/18/24 1130 (!) 142/66 -- -- 89 20 99 % -- -- 10/18/24 1100 -- -- -- 85 -- 97 % -- -- 10/18/24 1036 (!) 162/77 -- -- 98 18 100 % -- -- Physical Exam General: Sitting in bed with BiPAP mask on, not in acute distress HEENT: No conjunctival pallor or scleral icterus, normal hearing CVS: S1-S2 heard, no murmurs, regular rate and rhythm Respiratory: Decreased breath sounds at bilateral bases with right worse than left, coarse rhonchi on upper zones, tachypneic Abdominal: Soft but slightly distended, bowel sounds present Musculoskeletal: Able to move all extremities Skin: No new bruises or injury rivero noted on exposed areas of the skin Neuro: AOx3, follows commands, demonstrates higher cognitive function, able to speak in clear sentences with appropriate speech. No focal weakness. Ins and outs Intake/Output Summary (Last 24 hours) at 10/18/2024 1617 Last data filed at 10/18/2024 1500 Gross per 24 hour Intake 10 ml Output 220 ml Net -210 ml Past History No past medical history on file. No past surgical history on file. No family history on file. Social History Tobacco Use Smoking status: Not on file Smokeless tobacco: Not on file Substance Use Topics Alcohol use: Not on file Allergies No Known Allergies Home Medications Allopurinol 100 mg daily Gabapentin 300 mg daily Insulin degludec 60 units nightly Temazepam 15 mg bedtime as needed Mag-Ox 400 milligrams daily Amlodipine 10 mg daily Calcitriol 0.25 mcg daily Sodium bicarbonate 650 mg twice daily Lokelma 5 mg daily Atorvastatin 40 mg daily Vitamin D3 50,000 units weekly No current outpatient medications on file. Current Facility-Administered Medications: allopurinol (ZYLOPRIM) tablet 100 mg, 100 mg, Oral, Daily, Barb Hoffmann MD, 100 mg at 10/18/24 1432 amLODIPine (NORVASC) tablet 10 mg, 10 mg, Oral, Daily, Barb Hoffmann MD, 10 mg at 10/18/24 1432 atorvastatin (LIPITOR) tablet 40 mg, 40 mg, Oral, Daily, Barb Hoffmann MD, 40 mg at 10/18/24 1432 bisacodyl (DULCOLAX) suppository 10 mg, 10 mg, Rectal, Daily PRN, Barb Hoffmann MD [Provider Held] calcitRIOL (ROCALTROL) capsule 0.25 mcg, 0.25 mcg, Oral, Once per day on Thursday, Barb Hoffmann MD cefTRIAXone (ROCEPHIN) IV Push 1 g, 1 g, Intravenous, Q24H, Barb Hoffmann MD, 1 g at 10/18/24 1302 chlorhexidine gluconate 2 % wipes - urethral catheter CHG application, , Topical, Daily, Barb Hoffmann MD glucose (GLUTOSE 15) 40 % oral gel 37.5 g, 1 Tube, Oral, Q15 Min PRN OR glucose (GLUTOSE 15) 40% oral gel 75 g, 2 Tube, Oral, Q15 Min PRN OR dextrose 50 % solution 12.5 g, 12.5 g, Intravenous, Q15 Min PRN OR dextrose 50 % solution 25 g, 25 g, Intravenous, Q15 Min PRN OR glucagon (GLUCAGEN) injection 1 mg, 1 mg, Intramuscular, Daily PRN, Barb Hoffmann MD doxycycline (VIBRAMYCIN) 100 mg in sodium chloride-MBP (NS) 100 mL IVPB-MBP, 100 mg, Intravenous, Q12H, Barb Hoffmann MD, Last Rate: 50 mL/hr at 10/18/24 1309, 100 mg at 10/18/24 1309 [Provider Held] gabapentin (NEURONTIN) capsule 300 mg, 300 mg, Oral, BID, Barb Hoffmann MD heparin (porcine) 5000 unit/mL injection 5,000 Units, 5,000 Units, Subcutaneous, Q8H [facility], Barb Hoffmann MD, 5,000 Units at 10/18/24 1442 [START ON 10/19/2024] insulin glargine (LANtus/SEMGLEE) 100 units/mL injection 40 Units, 40 Units, Subcutaneous, Nightly, Barb Hoffmann MD insulin lispro (HumaLOG/ADMELOG) 100 units/mL injection 1-11 Units, 1-11 Units, Subcutaneous, Q4H [facility], Barb Hoffmann MD, 11 Units at 10/18/24 1300 lactulose (ENULOSE) 10 gm/15 mL solution 20 g, 30 mL, Oral, Q4H PRN, Barb Hoffmann MD naloxone (NARCAN) 0.4 mg/mL injection 0.4 mg, 0.4 mg, Intravenous, Q5 Min PRN, Barb Hoffmann MD senna-docusate (SENNA-S) 8.6-50 MG tablet 2 tablet, 2 tablet, Oral, Nightly, Barb Hoffmann MD sodium chloride 0.45 % (1/2 NS) 1,000 mL with sodium bicarbonate 75 mEq infusion, 75 mL/hr, Intravenous, Continuous, Hadley Johnson MD, Last Rate: 75 mL/hr at 10/18/24 1538, 75 mL/hr at 10/18/24 1538 Labs Lab Results Component Value Date HGB 7.9 (L) 10/18/2024 WBC 10.6 10/18/2024 PLT 191 10/18/2024 Lab Results Component Value Date NA 141 10/18/2024 K 5.0 (H) 10/18/2024 CO2 18 (L) 10/18/2024 CL 108 (H) 10/18/2024 MG 1.6 10/18/2024 PHOS 6.6 (H) 10/18/2024 BUN 80 (H) 10/18/2024 CREAT 7.0 (H) 10/18/2024 CALCIUM 7.8 (L) 10/18/2024 ALT 23 10/18/2024 AST 35 (H) 10/18/2024 ALKPHOS 154 (H) 10/18/2024 BILITOT 0.2 (L) 10/18/2024 LACTIC 1.2 10/18/2024 Lab Results Component Value Date GLUC 368 (H) 10/18/2024 GLUC 357 (H) 10/18/2024 No results found for: BNP , TNI , JACKIE , TROPIHIGH No results found for: CKTOTAL , CKMB , CKMBINDEX No results found for: CRP , FERRITIN , DDIMER , PROCALC , LDH Lab Results Component Value Date PHA 7.18 (LL) 10/18/2024 PCO2 38 10/18/2024 PO2 134 (H) 10/18/2024 HCO3 14.0 (L) 10/18/2024 O2SAT 98.0 10/18/2024 No results found for: TSH No results found for: TOXSCRN Invalid input(s): WBC UA , RBC UA Imaging Studies XR Chest 1 view-Portable Final Result Patchy airspace opacities within the right upper lobe concerning for pneumonia. Follow-up to document resolution is recommended. CT Chest/abdomen+pelvis w/o contrast (Results Pending) ECG: Normal rate, normal rhythm, P waves present, normal axis, prolonged QT Assessment & Plan Assessment Ryan Kirk is a 69 y.o. male with a PMHx of CKD stage IV unknown BCR, HTN, diabetes, sciatica, bladder stone, hx of temporary HD via nkechi cath, gout, HLD, BMI 33, presenting with altered mentalstatus and shortness of breath. Admitted to [facility] ICU for management of acute hypoxic hypercarbic respiratory failure with severe high anion gap metabolic acidosis likely in setting of multifocal pneumonia and RSV infection. Problem List Principal Problem: Acute hypoxic respiratory failure (HCC) (POA: Yes) Resolved Problems: Plan Neurological -No active issues Patient is AOx3 Neurochecks every 4 hours Cardiology -No active issues Possible heart failure Non-IA troponin elevation Prolonged QT interval Patient is currently hemodynamically stable Keep MAP greater than 65 BNP at outside hospital 668 and troponin 300s. Will recheck BNP and troponin. Keep K greater than 4 and mag greater than 2 Daily EKGs Respiratory Acute hypoxic hypercarbic respiratory failure Multifocal Pneumonia RSV infection Unknown baseline CO2 status could possibly be hypercarbic at baseline VBG at outside hospital pH 7.07, CO2 55, O2 45, HCO3 16 Xray at outside hospital showed bilateral opacities R>L CT chest abdomen pelvis without contrast here showed patchy groundglass opacities at the right lungmost tolerated the right upper lobe. Bilateral lower lobe atelectasis with small bilateral pleural effusions. 9 mm left perifissural lung nodule Gastroenterology -No active issues Bowel regimen to prevent constipation Currently n.p.o. in setting of BiPAP Renal HAGMA BENJAMIN on CKD IV unknown bcr Hx of bladder stone Hypomagnesemia Hyperkaelmia PTH 755, phos 6.6, beta OH 0.30, Cr 7.0, BUN 80, AG 16 Currently taking the acidosis with half NS half bicarbonate solution at 75 cc an hour for 24 hours Infectious Disease Multifocal pneumonia RSV infection CT chest abdomen pelvis without contrast here showed patchy groundglass opacities at the right lungmost tolerated the right upper lobe. Bilateral lower lobe atelectasis with small bilateral pleural effusions. 9 mm left perifissural lung nodule No leukocytosis or lactic acidosis Currently being treated with ceftriaxone and doxycycline due to prolonged QT interval. (D1 10/17/24) MRSA swab negative Pending urine and blood cultures Will send sputum cultures, urine Legionella Droplet isolation Metabolic/Endocrine Type 2 diabetes Hyperlipidemia Patient takes 60 units of Tresiba at night Given patient is currently n.p.o. will give 30 units at night and give insulin sliding scale (severe) Hypoglycemia prevention Heme/Onc Anemia of chronic disease 2/2 CKD IV CBC in a.m., nephrology on board appreciate recs Musculoskeletal Gout Continue allopurinol 100 mg daily Code status: Full Code Diet: NPO Precautions: Droplet DVT Prophylaxis: Heparin 5000 TID, SCD Communication: Patient's family updated on plan of care Case discussed with my attending with changes/addendum to follow. Barb Hoffmann MD PGY2 10/18/2024 4:17 PM Associated attestation - Hadley Johnson MD - 10/21/2024 2:50 PM EDT Attestation to the resident note with the same day of service: I have seen and examined the patient. I have reviewed the relevant labs, radiologic studies and campaign consultant notes. Please refer to my note. * Hadley Johnson MD - 10/18/2024 10:54 AM EDT Critical Care Consult Note Date of Consult: 10/18/2024 Patient's Primary Care Provider: No primary care provider on file. Physician Requesting Consult: CLC Reason for Consultation: resp distress and AMS Admit Date: 10/18/2024 10:27 AM HPI / Subjective 69 y o M w morbid obesity, DM, HTN, CKD, DLP presents on 10/18 as a transfer from [place] for management of encephalopathy and hypoxia. He initially presented to their hospital for 1-day hxof generalized weakness, lethargy and SOB after a road trip to [place]. Upon arrival to their ED was found to be febrile, tachycardic, tachypneic, wheezing and hypoxic 85%on room air. Diagnosed w BENJAMIN creat 6.3, with worsening acidosis PH 7.07, subsequently placed on BIPAP and bicarb drip. Tested + for RSV Clinically the patient is Aox3, denies SOB on BIPAP, Remains HD stable. Labs (prior transfer): wbc 10.2, plat 203, inr 1.1, k 4.5, CO2 15, creat 6.45 (baseline?), lactat 1.8, Mag 1.2, BNP 668, trop 300 LFT / Assessment & Plan 1- metab encephalopathy 2- acute hypoxic resp failure 3- PNA 4- BENJAMIN on CKD w non AG metab acidosis 5- RSV infection 6- morbid obesity 7- Hypomagnesemia Neuro: 1- AOX3, encephalopathy sec to severe acidosis, now improved Cardiovasc/Resp: 1- HD stable 2- ARF: sec to PNA in setting of RSV infection and morbid obesity - repeat xray - currently on BIPAP 14/5 - ABG - treat PNA - consider steroid if evidence of bacterial PNA/consolidation - CT Chest pending ID: [id number] broad sprectrum abx w ceftriaxone + azithroy - resp cult pending GI: 1- NPO Renal: 1- BENJAMIN on CKD: - insert ma, r/o obstructive uropathy - cont maintenance bicarb drip - CT abd, r/o Endo: 1- DM: SS Prophylaxis: -DVT (hep) -GI Code Status: Full code Admit to PCU All labs, Abg, xray pending Critical Care Time Spent: 60 minutes Objective Medications Not on File Vitals: 10/18/24 1036 BP: (!) 162/77 Pulse: 98 Resp: 18 SpO2: 100% Intake & Output: Physical Exam Aox3, no focal deficit RRR BS decreased, coarse Abd distended but soft No CVA tenderness No leg swelling Warm Good capil refil Current Ventilator/Noninvasive Ventilator/Oxygen Settings: Oxygen Concentration (%): 40 Imaging Studies: Hadley Johnson MD 10/18/2024 10:54 AM documented in this encounter Consult Notes * Lin Stahl PA-C - 10/18/2024 4:09 PM EDT Urology Consult Urology consult placed Nursing staff placed ma with return of small amt of urine with bloody output with pain Ma removed Pt reports a hx of bladder stones and follows with a stone specialist and had an ultrasound (presumably renal ultrasound) approx 2 weeks ago and he is waiting for the results of this 16F coude Ma was placed under sterile conditions without difficulty with return of clear yellow urine F/u CT abdomen/pelvis Remainder of care per primary team * Mara Cadet MD - 10/18/2024 2:11 PM EDTAssociated Order(s): IP CONSULT TO NEPHROLOGY NEPHROLOGY CONSULT Patient Name: Ryan Kirk Date of Consult: 10/18/24 Reason for Consult: benjamin on ckd, acidosis HPI: 69M with PMH of HTN, CKD4, DM, sciatica, who presents as transfer from [place] for AMS, hypoxic resp failure and acidosis, with BENJAMIN on CKD. Pt seen at bedside - on BIPAP. Is awake and alert. He notes requiring HD temporarily a few years ago iso large kidney stone. Has since then followed w/statistician Dr. Jaramillo and a urologist. Denies further kidney stone incidents. Denies NSAID use. Deniesfevers but endorses chills/shakes. No coughing or sore throat. Denies N/V/D. No past medical history on file. No past surgical history on file. No current facility-administered medications on file prior to encounter. Current Outpatient Medications on File Prior to Encounter Medication Sig Dispense Refill allopurinol (ZYLOPRIM) 100 mg tablet Take 1 tablet (100 mg total) by mouth daily. amLODIPine (NORVASC) 10 MG tablet Take 1 tablet (10 mg total) by mouth daily. atorvastatin (LIPITOR) 40 MG tablet Take 1 tablet (40 mg total) by mouth daily. calcitRIOL (ROCALTROL) 0.25 MCG capsule Take 1 capsule (0.25 mcg total) by mouth daily. cholecalciferol (CHOLECALCIFEROL) 1.25 MG (49070 UT) capsule Take 1 capsule (50,000 Units total) bymnuth once a week. gabapentin (NEURONTIN) 300 MG capsule Take 1 capsule (300 mg total) by mouth daily. magnesium oxide (MAG-OX) 400 MG tablet Take 1 tablet (400 mg total) by mouth daily. sodium bicarbonate 650 MG tablet Take 1 tablet (650 mg total) by mouth 2 (two) times a day. temazepam (RESTORIL) 15 MG capsule Take 1 capsule (15 mg total) by mouth nightly as needed for sleep. Tresiba FlexTouch 100 UNIT/ML prefilled pen injection Inject 65 Units under the skin nightly. Scheduled Meds: allopurinol, 100 mg, Oral, Daily amLODIPine, 10 mg, Oral, Daily atorvastatin, 40 mg, Oral, Daily [Provider Held] calcitRIOL, 0.25 mcg, Oral, Once per day on Thursday cefTRIAXone, 1 g, Intravenous, Q24H chlorhexidine gluconate, , Topical, Daily doxycyline, 100 mg, Intravenous, Q12H [Provider Held] gabapentin, 300 mg, Oral, BID heparin (porcine), 5,000 Units, Subcutaneous, Q8H [facility] [START ON 10/19/2024] insulin glargine, 40 Units, Subcutaneous, Nightly insulin lispro, 1-11 Units, Subcutaneous, Q4H BRI lidocaine, , Urethral, Once magnesium sulfate IV, 2 g, Intravenous, Once senna-docusate, 2 tablet, Oral, Nightly Continuous Infusions: sodium chloride 0.45 % (1/2 NS) 1,000 mL with sodium bicarbonate 100 mEq infusion, 100 mL/hr, Last Rate: 100 mL/hr (10/18/24 1352) PRN Meds: bisacodyl glucose OR glucose OR dextrose OR dextrose OR glucagon lactulose naloxone Family History: No family history on file. Social History Tobacco Use Smoking status: Not on file Smokeless tobacco: Not on file Substance Use Topics Alcohol use: Not on file Review of Systems: Review of Systems Constitutional: Positive for chills. Negative for fever. HENT: Negative for sore throat. Respiratory: Positive for shortness of breath. Cardiovascular: Negative for chest pain and leg swelling. Gastrointestinal: Negative for nausea and vomiting. Genitourinary: Negative for dysuria and hematuria. Musculoskeletal: Positive for back pain. Skin: Negative for rash. Neurological: Negative for headaches. Last Vitals Pulse:93,Resp:(!) 23,BP:(!) 118/56,SpO2:98 %,Weight: Temp Last 24 hrs: Temp Min: 97.4 ??F (36.3 ??C) Max: 97.5 ??F (36.4 ??C) Gen: Patient in NAD, on BIPAP HEENT: EOMI, on BIPAP Skin: no rash CV: RR Lungs: no wheezing on exam, some tachypnea Abd: non-tender Exts: no edema Neuro: awake and alert Intake/Output Summary (Last 24 hours) at 10/18/2024 1411 Last data filed at 10/18/2024 1200 Gross per 24 hour Intake -- Output 200 ml Net -200 ml BMP Lab Results Component Value Date NA 141 10/18/2024 K 5.0 (H) 10/18/2024 CO2 18 (L) 10/18/2024 BUN 80 (H) 10/18/2024 CREAT 7.0 (H) 10/18/2024 GLUC 368 (H) 10/18/2024 GLUC 357 (H) 10/18/2024 CALCIUM 7.8 (L) 10/18/2024 PHOS 6.6 (H) 10/18/2024 CMP White Blood Cell Count Date Value Ref Range Status 10/18/2024 10.6 4.0 - 11.0 Thou/uL Final Hemoglobin Date Value Ref Range Status 10/18/2024 7.9 (L) 13.0 - 17.7 g/dL Final Hematocrit Date Value Ref Range Status 10/18/2024 25.6 (L) 39.0 - 54.0 % Final Platelet Count Date Value Ref Range Status 10/18/2024 191 150 - 450 Thou/uL Final Imaging Studies CXR Report reviewed Assessment: 69M with PMH of HTN, CKD4, DM, sciatica, who presents as transfer from [facility] for AMS, hypoxic resp failure and acidosis, with BENJAMIN on CKD. Plan: #BENJAMIN on CKD4 #HAGMA #HyperK #Hyperphosphatemia #Sepsis 2/2 RSV PNA Not sure what pt's baseline metal mover typically runs, does have baseline kidney dz with prev BENJAMIN req HD (iso obstructive stone per pt). Current metal mover is likely above his baseline. Home meds per [facility] records: allopurinol, gabapentin 300mg daily, insulin, amlodipine 2.5mg daily, atorvastatin, temazepam PRN; prev prescriptions of Mag ox, calcitriol, sodium bicarb, and lokelma. - bicarb drip and probably start bicarb tabs once off BIPAP - abx for PNA, cultures pending - check PTH - low K/phos diet when able to eat, and would start phos binder - hold calcitriol + gabapentin - strict Is/Os, ma if able - pending CT imaging -- h/o renal stone, no current sx of obstructive stone but UA at [facility] was notable for protein + blood - would send a UA here as well, with spot urine protein/metal mover ratio - no urgent dialytic needs Signed: Mara Cadet MD [phone] (office) documented in this encounter Miscellaneous Notes * Plan of Care - Nicole Williamson RN - 10/22/2024 10:34 AM EDT Case Management Care Plan Note Final Discharge Plan: 01 - home or self-care Summary: Transition to home in [facility] with MD follow up as directed. YONG has arranged [facility] transport back to [facility] for 11:30 AM Patienbt aware and will contact his sister. Independent on room air- No needs identified or requested. Nurse Pisano updated. IMM 10/21. 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 With Choices Of: they had no preference (10/22/2024 10:32 AM) Copy of IM Given to Patient or Qualified Person: Patient (10/21) (10/22/2024 10:32 AM) Plan: Home (10/22/2024 10:32 AM) Patient/Family in Agreement with Plan: yes (10/22/2024 10:32 AM) Final Discharge Disposition Code: 01 - home or self-care (10/22/2024 10:32 AM) Discharge Transportation: Taxi (10/22/2024 10:33 AM) Scheduled Transportation Date: 10/22/24 (10/22/2024 10:33 AM) Scheduled Transportation Time: 1130 (10/22/2024 10:33 AM) Scheduled Time Communicated To: patient; unit/RN (10/22/2024 10:33 AM) Name(s) of Person(s) Transportation Time Communicated To: Nurse Pisano (10/22/2024 10:33 AM) Nicole Williamson 10/22/2024 10:34 AM * Plan of Care - Leta Ramesh RN - 10/21/2024 4:54 PM EDT Patient was transferred her from [facility]. He lives in [facility]. Per Dr. Castrejon he no longer needs oxygen and he may be ready for d'c home tomorrow or the next day. Met with patient re: d'c plan. He is independent at home, lives next door to his sister. He does not need or want home care services, but he will need a ride home. Will leave a message for weekend rn case manager. Also provided him with the IMM. He verbalized understanding. Leta Ramesh 10/21/2024 4:54 PM * Significant Event - Smiley Engel APRN - 10/20/2024 8:43 PM EDT Notified by RN, pt complaining of pain at the catheter site with anxiety. Acetaminophen ordered forpain, with plan to monitor effect and re evaluate anxiety. Notified again by RN, pt requesting to speak to a provider, anxiety escalating. Stating he does not want to be alone in his room At the bedside, pt shouting he is in pain from his urinary catheter, standing, stomping his feet, stating he can not be alone in his room. Agreed to medications for anxiety and lidocaine jet. Ativan 0.5mg IV given, lidocaine given. More calm per nursing, stating he would like to leave tomorrow. * Rehab Therapy Consults - Que Lozano, PT - 10/20/2024 4:40 PM EDT Images from the original note were not included. Patient Information Today's Date: 10/20/2024 Patient Name: Ryan Kirk Date of : 1955 Room/Bed: [place] [address]/[facility] 1024-01 Isolation: Droplet, Contact Preferred Language: Mozambican Patient History History of Present Illness (P) ADMITTED ON 10/18/24 RYAN KIRK 69 y o M w morbid obesity, DM, HTN, CKD, DLP presents on 10/18 as a transfer from [place] for management of encephalopathy and hypoxia. He initially presented to their hospital for 1-day hx of generalized weakness, lethargy and SOB after a road trip to [place]. Past Medical and Surgical History No past medical history on file. No past surgical history on file. Range of Motion and Manual Muscle Testing ROM & MMT WNL & 4/5 Physical Therapy Functional Status Patient Goal for Today's Session RETURN HOME Bed Mobility SUPINE<>SIT<>EOB (S) Transfers SIT<>STAND COMPLETED WITH (S)<>CG AX1 Gait AMBULATED WITH CG AX1 30FT Stair Climbing HAS NO BRI Activity Measure for Post-Acute Care (AM-PAC) Basic Mobility Baseline [facility] Basic Mobility Score: 24 Current [facility] Basic Mobility Score: 20 Physical Therapy Clinical Summary Physical Therapy Clinical Impression Pt IS ALERT + ORIENTATED AND ABLE TO FOLLOW COMMANDS. FUNCTIONALLY Pt IS AT A CG<>S FOR OOB MOBILITY. DUE TO BEING A FALL RISK, NEEDING CONSTANT (A) FOR OOB MOBILITY. FOLLOWING IMPAIRMENTS ARE as FOLLOWS: WEAKNESS, SOB, ANXIOUS, AND ENDURANCE. RECOMMEND FOR CONTINUED PT UNTIL GOALS ARE MET ORPATIENT HAS BEEN DC TO APPROPRIATE SETTING FOR CONTINUED CARE. Pt KATI SESSION WELL AND COMPLETED ALL TASKS. Pt KEPT STATING HE FEELS VERY ANXIOUS IN THE ROOM WITHDOOR LOCKED AND WANTS TO LEAVE. Pt EDUCATED HE CAN'T DUE TO ISOLATION RESTRICTION. OVERALL HIGH FUNCTIONING BUT IMPAIRED WEAKNESS AND ENDURANCE SINCE HE DESATTS ON ROOM AIR WHICH ISNT HIS BASELINE FUNCTION Pt RETURN TO BED W/ ALL NEEDS WITHIN REACH. ALARM ON OTHER/FYI: WEIGHT-BEARING: WNL RECOMMENDATIONS: AX1 VITALS: 4L NC 106 HR & 95% SPO2 v. 116 HR & 89% SPO2 LEVELS PT Recommendations for Staff: (P) AX1 PT Frequency: (P) 3-5 times/wk during hospitalization Plan of Care Reviewed With: patient Rehab Plan of Care Patient requires ongoing skilled PT services due to deviation from baseline mobility status as a result of acute illness. Patient is currently below prior level of function and has potential to achieve goal of maximizing functional independence with continuation of skilled physical therapy intervention. The goal of therapy will be to improve functional strength, balance, and endurance in order to minimize risk for future falls and hospital readmissions. Current DME Needs: (P) (O2 NEEDED) Current Functional Mobility Assistance Needs: AX1 Transition Care Planning Patient's current level of function and post-acute rehab needs discussed with RN. Physical Therapy Education Physical Therapy Evaluation Flowsheet Documentation 10/20/24 1640 Physical Therapy Time and Intention PT Visit Type initial evaluation Mode of Treatment physical therapy Total Minutes, Physical Therapy 16 Patient Effort good Symptoms Noted During/After Treatment none General Information Patient Profile Reviewed yes Onset of Illness/Injury or Date of Surgery 10/18/24 Referring Physician KALEY General Observations of Patient IN BED AGREES TO PT Existing Precautions/Restrictions fall Previous Level of Function/Home Environm Previous Level of Function, Premorbid 24 Activity/Exercise/Self-Care Comment LIVES WITH A ROOMMATE, NO BRI, 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 HE LIVES IN [place], [place] Pain Additional Documentation Pain Scale: Numbers Pre/Post-Treatment (Group) Pain Scale: Numbers Pre/Post-Treatment Pretreatment Pain Rating 0/10 - no pain Pain Scale: Numbers, During Treatment 0/10 - no pain Posttreatment Pain Rating 0/10 - no pain Cognition Cognitive Status WFL, ANXIOUS Bed Mobility Comment, (Bed Mobility) SUPINE<>SIT<>EOB COMPLETED WITH (S), SITTING EOB (I) Transfers Comment, (Transfers) SIT<>STAND COMPLETED WITH NO AD USE, CG AX1 GIVEN FOR SAFETY, ABLE TO STAND WITH (S) Gait/Stairs (Locomotion) Comment, (Gait/Stairs) AMBULATED WITH NO RW USE OR CANE USE, CG <>S AX1, STEP THROUGH PATTERN, NORMAL GAIT SPEED, SEEMS TO BE AT BASELINE FUNCTION Safety Issues, Functional Mobility Safety Issues Affecting Function (Mobility) ability to follow commands Impairments Affecting Function (Mobility) coordination;endurance/activity tolerance;shortness of breath;strength Balance Comment, Balance WNL Safety Safety WDL WDL Progressive Mobility Progressive Mobility Level Achieved Ambulation Ambulation Distance (Feet) 30 [facility] Basic Mobility Turning from your back to your side while in a flat bed without using bedrails? 4 Moving from lying on your back to sitting on the side of a flat bed without using bedrails? 4 Moving to and from a bed to a chair (including wheelchair)? 3 Standing up from a chair using your arms? 3 To walk in a hospital room? 3 Climbing 3-5 steps with a railing? 3 [facility] Basic Mobility Score 20 Therapy Assessment/Plan (PT) Patient/Family Therapy Goals Statement (PT) RETURN HOME Functional Level at Time of Evaluation (PT) (S)<>CG AX1 PT Diagnosis (PT) ADMITTED ON 10/18/24 RYAN REAGAN 69 y o M w morbid obesity, DM, HTN, CKD, DLP presents on 10/18 as a transfer from [place] for management of encephalopathy and hypoxia. He initially presented to their hospital for 1-day hx of generalized weakness, lethargy and SOB after a road trip to [place]. Rehab Potential (PT) good Criteria for Skilled Interventions Met (PT) yes Therapy Frequency (PT) 3-5 times/wk PT Recommendations for Staff AX1 Predicted Duration of Therapy Intervention (PT) LO Planned Therapy Interventions (PT) gait training;strengthening;transfer training Problem List (PT) balance;coordination;mobility;strength Activity Limitations Related to Problem List (PT) unable to transfer safely;unable to ambulate safely PT Evaluation Complexity History, PT Evaluation Complexity 1-2 personal factors and/or comorbidities Examination of Body Systems (PT Eval Complexity) 1-2 elements Clinical Presentation (PT Evaluation Complexity) stable Clinical Decision Making (PT Evaluation Complexity) low complexity Overall Complexity (PT Evaluation Complexity) low complexity Progress Summary (PT) Progress Toward Functional Goals (PT) progress toward functional goals is good Therapy Plan Review/Discharge Plan (PT) Therapy Plan Review (PT) care plan/treatment goals reviewed;evaluation/treatment results reviewed Anticipated Equipment Needs at Discharge (PT) (O2 NEEDED) Physical Therapy Goals Transfer Goal Selection (PT) transfer, PT goal 1 Gait Training Goal Selection (PT) gait training, PT goal 1 Transfer Goal 1 (PT) [place] Level/Cues Needed (Transfer Goal 1, PT) independent Time Frame (Transfer Goal 1, PT) short-term goal (STG) Activity/Assistive Device (Transfer Goal 1, PT) transfers, all Gait Training Goal 1 (PT) Time Frame (Gait Training Goal 1, PT) short-term goal (STG) [place] Level (Gait Training Goal 1, PT) independent Activity/Assistive Device (Gait Training Goal 1, PT) assistive device use;gait (walking locomotion) Distance (Gait Training Goal 1, PT) 50 Signature * Plan of Care - Haylee Burgos RN - 10/20/2024 3:17 PM EDT [id number] Assumed care. Pt is alert is alert and oriented x4. Denies pain/discomfort.BP 148/70 Pulse 100 Temp 97.6 ??F Resp 23 SpO2 96% on 4L NC. 1445 Report given to 10S RN. All belongings taken with pt. Pt transferred via stretcher with zoll and RN. Safety maintained. Haylee Burgos 10/20/2024 3:17 PM * Significant Event - Hadley Johnson MD - 10/19/2024 4:12 PM EDT Clinically the patient remains on nc POCUS of the heart is neg for pericardial effusion, hyperdynamic, underfilled LV with dilated RV. This could explain an elevated BNP >600 The underlying acidosis has improved with the bicarb drip and the patient is making some urine, will reduce his bicarb drip to 50 ml/hr And order and TTE to assess his RV function. CCT: 30 min * Plan of Care - Brenda Broderick RN - 10/18/2024 3:33 PM EDT Problem: Adult Inpatient Plan of Care Goal: Plan of Care Review Outcome: Progressing Goal: Patient-Specific Goal (Individualized) Outcome: Progressing Goal: Absence of Hospital-Acquired Illness or Injury Outcome: Progressing Goal: Optimal Comfort and Wellbeing Outcome: Progressing Goal: Readiness for Transition of Care Outcome: Progressing Problem: Skin Injury Risk Increased Goal: Skin Health and Integrity Outcome: Progressing Problem: Fall Injury Risk Goal: Absence of Fall and Fall-Related Injury Outcome: Progressing Patient arrived from [place], a&o x4, follows commands, no hallucinations or altered mental status since arrival, pt denies pain at present time, CT chest abdomen, pelvis pending, pt continues to be NPO, on bipap, tolerating well, pt on bicarb gtt infusing per order, ma catheter inserted by urology PA, pt has decreased urine output, aware, urology consulted, pt NSR on monitor, skin intact, re sting in bed. Brenda Broderick 10/18/2024 3:33 PM documented in this encounter Plan of Treatment Not on file documented as of this encounter Procedures Procedure Name Priority Date/Time Associated Diagnosis [...] (NO CHARGE) Routine 10/20/2024 8:23 AM EDT COMPLETE BLOOD COUNT, WITH DIFFERENTIAL Routine 10/20/2024 5:31 AM EDT PHOSPHORUS Routine 10/20/2024 5:31 AM EDT MAGNESIUM Routine 10/20/2024 5:31 AM EDT COMPREHENSIVE METABOLIC PANEL Routine 10/20/2024 5:31 AM EDT POCT GLUCOSE, [...] (NO CHARGE) Routine 10/19/2024 7:59 AM EDT COMPLETE BLOOD COUNT, WITH DIFFERENTIAL Routine 10/19/2024 4:16 AM EDT PHOSPHORUS Routine 10/19/2024 4:16 AM EDT MAGNESIUM Routine 10/19/2024 4:16 AM EDT COMPREHENSIVE METABOLIC PANEL Routine 10/19/2024 4:16 AM EDT POCT GLUCOSE, [...] (NO CHARGE) Routine 10/18/2024 5:39 PM EDT URINALYSIS WITH REFLEX TO MICROSCOPIC AND CULTURE Routine 10/18/2024 5:26 PM EDT LEGIONELLA & STREPTOCOCCUS PNEUMONIAE ANTIGEN, URINE Routine 10/18/2024 5:26 PM EDT PROTEIN/CREATININE RATIO PANEL, URINE Routine 10/18/2024 5:26 PM EDT POCT GLUCOSE, FINGERSTICK (POCGLU) (NO CHARGE) Routine 10/18/2024 4:[address] CHEST/ABDOMEN+PELVIS W/O CONTRAST STAT 10/18/2024 4:15 PM EDT PTH, INTACT Routine 10/18/2024 3:00 PM EDT NASAL MRSA SCREEN, PCR Routine 2:45 PM EDT LACTIC ACID, PLASMA Routine 10/18/2024 1 :43 PM EDT (REPORT) POC BLOOD GAS, ARTERIAL (NO CHARGE) Routine 10/18/2024 12:27 PM EDT BLOOD CULTURE (HOSP LAB) Routine 10/18/2024 12:11 PM EDT BLOOD CULTURE (HOSP LAB) Routine 10/18/2024 12:09 PM EDT B-HYDROXYBUTYRATE Routine 10/18/2024 12: 09 PM EDT COMPLETE BLOOD COUNT, WITH DIFFERENTIAL Routine 10/18/2024 12:09 PM EDT PHOSPHORUS Routine 10/18/2024 12:09 PM EDT MAGNESIUM Routine 10/18/2024 12:09 PM EDT COMPREHENSIVE METABOLIC PANEL Routine 10/18/2024 12:09 PM EDT POCT GLUCOSE, FINGERSTICK (POCGLU) (NO CHARGE) Routine 10/18/2024 12:05 PM EDT ECG 12-LEAD Routine 10/18/2024 11:36 AM EDT XR CHEST 1 VIEW-PORTABLE STAT 10/18/2024 11:30 AM EDT documented in this encounter Results * (ABNORMAL) Complete Blood Count, with Differential (10/22/2024 7:49 AM EDT) White Blood Cell Count 11.8(H) 4.0 - 11.0 Thou/uL 10/22/2024 8:07 AM EDT [facility] Platelet Count 243 150 - 450 Thou/uL 10/22/2024 8:07 AM EDT [facility] Hemoglobin 8.4(L) 13.0 - 17.7 g/dL 10/22/2024 8:07 AM EDT [facility] Hematocrit 26.7(L) 39.0 - 54.0 % 10/22/2024 8:07 AM EDT [facility] Red Blood Cell Count 2.87(L) 4.50 - 6.20 Mil/uL 10/22/2024 8:07 AM EDT [facility] MCV 93 80 - 100 fL 10/22/2024 8:07 AM EDT [facility] MCH 29.3 27.0 - 31.0 pg 10/22/2024 8:07 AM EDT [facility] MCHC 31.5 30.0 - 36.0 g/dL 10/22/2024 8:07 AM EDT [facility] RDW 14.6(H) 11.5 - 14.5 % 10/22/2024 8:07 AM EDT [facility] MPV 11.0 7.5 - 12.5 fL 10/22/2024 8:07 AM EDT [facility] nRBC 0.5(H) 0.0 - 0.1 /100 WBC 10/22/2024 8:07 AM EDT [facility] nRBC, Absolute 0.06(H) 0.00 - 0.02 Thou/uL 10/22/2024 8:07 AM EDT [facility] Bands Man 4 % 10/22/2024 9:31 AM EDT [facility] Neutrophils Man 86 % 9:31 AM EDT [facility] Lymphocytes Man 7 % 9:31 AM EDT [facility] Monocytes Man 3 % 10/22/2024 9:31 AM EDT [facility] Abs Neutrophils Count (ANC) 10.6(H) 2.0 - 7.5 Thou/uL 10/22/2024 9:31 AM EDT [facility] Abs Lymphocytes Man 0.8(L) 1.5 - 4.5 Thou/uL 10/22/2024 9:31 AM EDT [facility] Abs Monocytes Man 0.4 0.2 - 1.5 Thou/uL 10/22/2024 9:31 AM EDT [facility] Macrocytes Occasional 10/22/2024 9:31 AM EDT [facility] Polychromasia Occasional 10/22/2024 9:31 AM EDT [facility] Hypochromia Occasional 10/22/2024 9:31 AM EDT [facility] Spherocytes Occasional 10/22/2024 9:31 AM EDT [facility] Blood Blood specimen / Unknown 10/22/2024 7:49 AM EDT 10/22/2024 8:00 AM EDT Christal Castrejon MD LAB BLOOD ORDERABLES [facility] [address] [place] [address], [place] * (ABNORMAL) Basic Metabolic Panel (Early AM) (10/22/2024 7:49 AM EDT) Glucose 145(H) 74 - 106 mg/dL 10/22/2024 8:37 AM EDT [facility] Comment:Fasting: <100 mg/dL, Non-Fasting: <200 mg/dL (ADA 2004) Blood Urea Nitrogen (BUN) 107(H) 9 - 23 mg/dL 10/22/2024 8:37 AM EDT [facility] Creatinine 6.1(H) 0.7 - 1.3 mg/dL 10/22/2024 8:37 AM EDT [facility] eGFR 9(L) >59 10/22/2024 8:37 AM EDT [facility] Comment:CKD-EPI (2020) in mL /min/1.73 sq meters. Sodium 146(H) 136 - 145 mmol/L 10/22/2024 8:37 AM EDT [facility] Potassium 3.8 3.4 - 4.5 mmol/L 10/22/2024 8:37 AM EDT [facility] Chloride 107 98 - 107 mmol/L 10/22/2024 8:37 AM EDT [facility] CO2 23 20 - 31 mmol/L 10/22/2024 8:37 AM EDT [facility] Anion Gap 16(H) 5 - 15 10/22/2024 8:37 AM EDT [facility] Calcium 8.2(L) 8.7 - 10.5 mg/dL 10/22/2024 8:37 AM EDT [facility] BUN/Creatinine Ratio 18 10.0 - 25.0 Ratio 10/22/2024 8:37 AM EDT [facility] Blood Blood specimen / Unknown 10/22/2024 7:49 AM EDT 10/22/2024 8:00 AM EDT Christal Castrejon MD LAB BLOOD ORDERABLES [facility] [address] [place] [address], [place] * (ABNORMAL) POCT Glucose, Fingerstick (10/22/2024 7:42 AM EDT) POC Glucose 150(H) 65 - 99 mg/dL 10/22/2024 7:48 AM EDT Blood specimen / Unknown 10/22/2024 7:42 AM EDT 10/22/2024 7:48 AM EDT Christal Castrejon MD POINT OF CARE TEST O IDNY Performing Organization Address [facility] Number [facility] LAB See Below * (ABNORMAL) POCT Glucose, Fingerstick (10/21/2024 8:32 PM EDT) POC Glucose 267(H) 65 - 99 mg/dL 10/21/2024 8:39 PM EDT Comment:Notified RN Blood specimen / Unknown 10/21/2024 8:32 PM EDT 10/21/2024 8:39 PM EDT Christal Castrejon MD POINT OF CARE TEST O INDY Performing Organization Address [facility] LAB See Below * (ABNORMAL) POCT Glucose, Fingerstick (10/21/2024 4:38 PM EDT) POC Glucose 305(H) 65 - 99 mg/dL 10/21/2024 4:46 PM EDT Comment:Notified RN Blood specimen / Unknown 10/21/2024 4:38 PM EDT 10/21/2024 4:46 PM EDT Christal Castrejon MD POINT OF CARE TEST O INDY Performing Organization Address [facility] LAB See Below * (ABNORMAL) POCT Glucose, Fingerstick (10/21/2024 11:45 AM EDT) POC Glucose 269(H) 65 - 99 mg/dL 10/21/2024 11:55 AM EDT Blood specimen / Unknown 10/21/2024 11:45 AM EDT 10/21/2024 11:55 AM EDT Christal Castrejon MD POINT OF CARE TEST O RDERABLES Performing Organization Address [facility] LAB See Below * (ABNORMAL) POCT Glucose, Fingerstick (10/21/2024 8:07 AM EDT) POC Glucose 186(H) 65 - 99 mg/dL 10/21/2024 8:16 AM EDT Comment:Notified RN Blood specimen / Unknown 10/21/2024 8:07 AM EDT 10/21/2024 8:16 AM EDT Christal Castrejon MD POINT OF CARE TEST O RDERAAUREA Performing Organization Address [facility] LAB See Below * (ABNORMAL) POCT Glucose, Fingerstick (10/20/2024 8:09 PM EDT) POC Glucose 179(H) 65 - 99 mg/dL 10/20/2024 8:20 PM EDT Comment:Notified RN Blood specimen / Unknown 10/20/2024 8:09 PM EDT 10/20/2024 8:20 PM EDT Christal Castrejon MD POINT OF CARE TEST O RDRACHEL Performing Organization Address [facility] LAB See Below * (ABNORMAL) POCT Glucose, Fingerstick (10/20/2024 4:31 PM EDT) POC Glucose 142(H) 65 - 99 mg/dL 10/20/2024 4:39 PM EDT Comment:Notified RN Blood specimen / Unknown 10/20/2024 4:31 PM EDT 10/20/2024 4:39 PM EDT Adi Bejarano MD POINT OF CARE TEST O RDERABLES Performing Organization Address [facility]/ZIP Co de Phone Number HOSPITAL LAB See Below * ECHOCARDIOGRAM COMPREHENSIVE WITH CONTRAST (10/20/2024 12:11 PM EDT) IVS Mean (F:0.6-0.9, M:0.6-1.0) 1.0 cm IVS [...] Johnson MD CV ECHO ORDERABLES * (ABNORMAL) POCT Glucose, Fingerstick (10/20/2024 12:02 PM EDT) POC Glucose 168(H) 65 - 99 mg/dL 10/20/2024 12:10 PM EDT Comment:Notified RN Blood specimen / Unknown 10/20/2024 12:02 PM EDT 10/20/2024 12:10 PM EDT Hadley Johnson MD POINT OF CARE TEST O INDY Performing Organization Address [facility]/ZIP Co de Phone Number [facility] See Below * (ABNORMAL) POCT Glucose, Fingerstick (10/20/2024 8:23 AM EDT) POC Glucose 144(H) 65 - 99 mg/dL 10/20/2024 8:48 AM EDT Blood specimen / Unknown 10/20/2024 8:23 AM EDT 10/20/2024 8:48 AM EDT Narrative Authorizing Provider Result Herbert Johnson MD POINT OF CARE TEST O INDY Performing Organization Address [facility] Phone Number [facility] See Below * (ABNORMAL) Comprehensive Metabolic Panel (10/20/2024 5:31 AM EDT) Glucose 141(H) 74 - 106 mg/dL 10/20/2024 6:13 AM EDT [facility] Comment:Fasting: <100 mg/dL, Non-Fasting: <200 mg/dL (ADA 2005) Blood Urea Nitrogen (BUN) 100(H) 9 - 23 mg/dL 10/20/2024 6:13 AM EDT [facility] Creatinine 6.6(H) 0.7 - 1.3 mg/dL 10/20/2024 6:13 AM EDT [facility] eGFR 8(L) >59 10/20/2024 6:13 AM EDT [facility] Comment:CKD-EPI (2020) in mL /min/1.73 sq meters. Sodium 143 136 - 145 mmol/L 10/20/2024 6:13 AM EDT [facility] Potassium 4.0 3.4 - 4.5 mmol/L 10/20/2024 6:13 AM EDT [facility] Chloride 108(H) 98 - 107 mmol/L 10/20/2024 6:13 AM EDT [facility] CO2 22 20 - 31 mmol/L 10/20/2024 6:13 AM EDT [facility] Calcium 7.4(L) 8.7 - 10.5 mg/dL 10/20/2024 6:13 AM EDT [facility] Alkaline Phosphatase 150(H) 45 - 128 U/L 10/20/2024 6:13 AM EDT [facility] Aspartate Aminotrans (AST) 37(H) <34 U/L 10/20/2024 6:13 AM EDT [facility] Alanine Aminotrans (ALT) 23 10 - 49 U/L 10/20/2024 6:13 AM EDT [facility] Bilirubin, Total 0.2(L) 0.3 - 1.2 mg/dL 10/20/2024 6:13 AM EDT [facility] Protein, Total 6.8 5.7 - 8.2 g/dL 10/20/2024 6:13 AM EDT [facility] Albumin 3.5 3.4 - 4.8 g/dL 10/20/2024 6:13 AM EDT [facility] BUN/Creatinine Ratio 15 10.0 - 25.0 Ratio 10/20/2024 6:13 AM EDT [facility] Globulin 3.3 1.5 - 3.9 g/dL 10/20/2024 6:13 AM EDT [facility] Albumin/Globulin Ratio 1.0(L) 1.5 - 2.5 Ratio 10/20/2024 6:13 AM EDT [facility] Anion Gap 13 5 - 15 10/20/2024 6:13 AM EDT [facility] Blood Blood specimen / Unknown 10/20/2024 5:31 AM EDT 10/20/2024 5:37 AM EDT Hadley Johnson MD LAB BLOOD ORDERABLES [facility] [address] [place] [address], * MAGNESIUM (10/20/2024 5:31 AM EDT) Magnesium 2.1 1.6 - 2.6 mg/dL 10/20/2024 6:13 AM EDT [facility] Blood Blood specimen / Unknown 10/20/2024 5:31 AM EDT 10/20/2024 5:37 AM EDT Hadley Johnson MD LAB BLOOD ORDERABLES [facility] [address] [place] [address], [place] * (ABNORMAL) Complete Blood Count, with Differential (10/20/2024 5:31 AM EDT) White Blood Cell Count 12.5(H) 4.0 - 11.0 Thou/uL 10/20/2024 5:40 AM EDT [facility] Platelet Count 210 150 - 450 Thou/uL 10/20/2024 5:40 AM EDT [facility] Hemoglobin 8.0(L) 13.0 - 17.7 g/dL 10/20/2024 5:40 AM EDT [facility] Hematocrit 24.5(L) 39.0 - 54.0 % 10/20/2024 5:40 AM EDT [facility] Red Blood Cell Count 2.64(L) 4.50 - 6.20 Mil/uL 10/20/2024 5:40 AM EDT [facility] MCV 93 80 - 100 fL 10/20/2024 5:40 AM EDT [facility] MCH 30.3 27.0 - 31.0 pg 10/20/2024 5:40 AM EDT [facility] MCHC 32.7 30.0 - 36.0 g/dL 10/20/2024 5:40 AM EDT [facility] RDW 14.8(H) 11.5 - 14.5 % 10/20/2024 5:40 AM EDT [facility] MPV 10.8 7.5 - 12.5 fL 10/20/2024 5:40 AM EDT [facility] nRBC 0.2(H) 0.0 - 0.1 /100 WBC 10/20/2024 5:40 AM EDT [facility] nRBC, Absolute 0.03(H) 0.00 - 0.02 Thou/uL 10/20/2024 5:40 AM EDT [facility] Neutrophils Auto 83.1 % 10/21/19 5:40 AM EDT [facility] Immature Granulocytes 2.1 % 10/20/2024 5:40 AM EDT [facility] Lymphocytes Auto 6.6 % 10/21/19 5:40 AM EDT [facility] Monocytes Auto 8.0 % 10/20/2024 5:40 AM EDT [facility] Eosinophils Auto 0.0 % 10/21/19 5:40 AM EDT [facility] Basophils Auto 0.2 % 10/20/2024 5:40 AM EDT [facility] Abs Neutrophils Auto 10.43(H) 2.00 - 7.50 Thou/uL 10/20/2024 5:40 AM EDT [facility] Abs Immature Granulocytes 0.26(H) 0.00 - 0.10 Thou/uL 10/20/2024 5:40 AM EDT [facility] Abs Lymphocytes Auto 0.83(L) 1.50 - 4.50 Thou/uL 10/20/2024 5:40 AM EDT [facility] Abs Monocytes Auto 1.00 0.20 - 1.50 Thou/uL 10/20/2024 5:40 AM EDT [facility] Abs Eosinophils Auto 0.00 0.00 - 0.70 Thou/uL 10/20/2024 5:40 AM EDT [facility] Abs Basophils Auto 0.02 0.00 - 0.20 Thou/uL 10/20/2024 5:40 AM EDT [facility] Blood Blood specimen / Unknown 10/20/2024 5:31 AM EDT 10/20/2024 5:37 AM EDT Hadley Johnson MD LAB BLOOD ORDERABLES Performing Organization Address [facility]/ZIP Co de Phone Number [address] * (ABNORMAL) PHOSPHORUS (10/20/2024 5:31 AM EDT) Phosphorus 6.1(H) 2.4 - 5.1 mg/dL 10/20/2024 6:13 AM EDT [facility] Blood Blood specimen / Unknown 10/20/2024 5:31 AM EDT 10/20/2024 5:37 AM EDT Hadley Johnson MD LAB BLOOD ORDERABLES Performing Organization Address [facility]/ZIP Co de Phone Number [address] * (ABNORMAL) POCT Glucose, Fingerstick (10/20/2024 3:19 AM EDT) POC Glucose 146(H) 65 - 99 mg/dL 10/20/2024 3:26 AM EDT Comment:Notified RN Blood specimen / Unknown 10/20/2024 3:19 AM EDT 10/20/2024 3:26 AM EDT Hadley Johnson MD POINT OF CARE TEST O RDERABLES [facility] See Below * (ABNORMAL) POCT Glucose, Fingerstick (10/19/2024 11:47 PM EDT) POC Glucose 148(H) 65 - 99 mg/dL 10/19/2024 11:55 PM EDT Blood specimen / Unknown 10/19/2024 11:47 PM EDT 10/19/2024 11:55 PM EDT Hadley Johnson MD POINT OF CARE TEST O RDRACHEL Performing Organization Address City/[facility]/ZIP Co de Phone Number [facility] See Below * (ABNORMAL) POCT Glucose, Fingerstick (10/19/2024 8:26 PM EDT) POC Glucose 200(H) 65 - 99 mg/dL 10/19/2024 8:33 PM EDT Comment:Notified RN Blood specimen / Unknown 10/19/2024 8:26 PM EDT 10/19/2024 8:33 PM EDT Hadley Johnson MD POINT OF CARE TEST O INDY Performing Organization Address [facility] Co de Phone Number [facility]OS[facility]ITAL [facility] See Below * (ABNORMAL) POCT Glucose, Fingerstick (10/19/2024 4:11 PM EDT) POC Glucose 209(H) 65 - 99 mg/dL 10/19/2024 4:18 PM EDT Comment:Notified RN Blood specimen / Unknown 10/19/2024 4:11 PM EDT 10/19/2024 4:18 PM EDT Hadley Johnson MD POINT OF CARE TEST O RDERAAUREA Performing Organization Address [facility] Co de Phone Number [facility]OS[facility]ITAL [facility] See Below * (ABNORMAL) POCT Blood Gas, Arterial (10/19/2024 3:46 PM EDT) Pathologist [facility] [place] Sample Type Arterial 10/19/2024 3:48 PM EDT [facility] pH, Arterial 7.36 7.35 - 7.45 10/19/2024 3:48 PM EDT [facility] pCO2, Arterial 36 35 - 45 mmHG 10/19/2024 3:48 PM EDT [facility] pO2, Arterial 48(LL) 80 - 100 mmHG 10/19/2024 3:48 PM EDT [facility] HCO3 20.0(L) 22 - 26 mmol/L 10/19/2024 3:48 PM EDT [facility] O2 Saturation, Arterial 79.0(L) 95 - 100 % 10/19/2024 3:48 PM EDT [facility] Base Deficit, Arterial 4.5 mmol/L 10/19/2024 3:48 PM EDT [facility] Comment:REFERENCE RANGE: NEG ATIVE 2 TO POSITIVE 2 Liter Flow, I-STAT 3.0 10/19/2024 3:48 PM EDT [facility] Comments POC VENOUS 10/19/2024 3:48 PM EDT [facility] 10/19/2024 3:46 PM EDT 10/19/2024 3:48 PM EDT Hadley Johnson MD POCT ORDERABLES - DE VICE [facility],PULMONARY LAB [address] [place] [address], [facility],Pulmonary Lab [address], [place] * (ABNORMAL) POCT Glucose, Fingerstick (10/19/2024 12:03 PM EDT) POC Glucose 215(H) 65 - 99 mg/dL 10/19/2024 12:10 PM EDT Comment:Notified RN Blood specimen / Unknown 10/19/2024 12:03 PM EDT 10/19/2024 12:10 PM EDT Hadley Johnson MD POINT OF CARE TEST O RDERABLES [facility] See Below * XR Chest 1 view-Portable (10/19/2024 11:54 AM EDT) Anatomical Region Laterality Modality Chest Digital Radiogra [...] ECG 12 lead (10/19/2024 9:20 AM EDT) Ventricular rate 94 BPM EKG [facility] Atrial rate 94 BPM EKG [facility] P-R interval 138 ms EKG [facility] QRS duration 88 ms EKG [facility] Q-T interval 386 ms EKG [facility] QTC calculation (Bazett) 483 ms EKG [facility] P axis 60 degrees EKG [facility] R axis 19 degrees EKG [facility] T axis 55 degrees EKG [facility] 10/19/2024 9:20 AM EDT Narrative EKG [facility] - 10/19/2024 9:41 AM EDT Normal sinus rhythm Prolonged QT Abnormal ECG When compared with ECG of 18-Oct-2024 11:36, No significant change was found Confirmed by MD Simmons Venu ([id number]) on 10/19/2024 9:41:44 AM Procedure Note Roland Simmons MD - 10/19/2024 Normal sinus rhythm Prolonged QT Abnormal ECG When compared with ECG of 18-Oct-2024 11:36, No significant change was found Confirmed by MD Troy, [facility] ([id number]) on 10/19/2024 9:41:44 AM Hadley Johnson MD ECG ORDERABLES EKG [facility] * (ABNORMAL) POCT Blood Gas, Arterial (10/19/2024 8:53 AM EDT) Sample Type Arterial 10/19/2024 8:55 AM EDT [facility] pH, Arterial 7.31(L) 7.35 - 7.45 10/19/2024 8:55 AM EDT [facility] pCO2, Arterial 37 35 - 45 mmHG 10/19/2024 8:55 AM EDT [facility] pO2, Arterial 46(LL) 80 - 100 mmHG 10/19/2024 8:55 AM EDT [facility] HCO3 19.0(L) 22 - 26 mmol/L 10/19/2024 8:55 AM EDT [facility] O2 Saturation, Arterial 71.0(L) 95 - 100 % 10/19/2024 8:55 AM EDT [facility] Base Deficit, Arterial 7.0 mmol/L 10/19/2024 8:55 AM EDT [facility] Comment:REFERENCE RANGE: NEG ATIVE 2 TO POSITIVE 2 Liter Flow, I-STAT 4.0 10/19/2024 8:55 AM EDT [facility] 10/19/2024 8:53 AM EDT 10/19/2024 8:55 AM EDT Hadley Johnson MD POCT ORDERABLES - DE VICE [facility],PULMONARY LAB [address] [place] [address], [facility],Pulmonary Lab [address], [place] * (ABNORMAL) POCT Glucose, Fingerstick (10/19/2024 7:59 AM EDT) POC Glucose 205(H) 65 - 99 mg/dL 10/19/2024 8:06 AM EDT Comment:Notified RN Blood specimen / Unknown 10/19/2024 7:59 AM EDT 10/19/2024 8:06 AM EDT Hadley Johnson MD POINT OF CARE TEST O RDERABLES [facility] See Below * (ABNORMAL) Comprehensive Metabolic Panel (10/19/2024 4:16 AM EDT) Glucose 193(H) 74 - 106 mg/dL 10/19/2024 4:55 AM EDT [facility] Comment:Fasting: <100 mg/dL, Non-Fasting: <200 mg/dL (ADA 2005) Blood Urea Nitrogen (BUN) 91(H) 9 - 23 mg/dL 10/19/2024 4:55 AM EDT [facility] Creatinine 6.8(H) 0.7 - 1.3 mg/dL 10/19/2024 4:55 AM EDT [facility] eGFR 8(L) >59 10/19/2024 4:55 AM EDT [facility] Comment:CKD-EPI (2020) in mL /min/1.73 sq meters. Sodium 141 136 - 145 mmol/L 10/19/2024 4:55 AM EDT [facility] Potassium 4.2 3.4 - 4.5 mmol/L 10/19/2024 4:55 AM EDT [facility] Chloride 109(H) 98 - 107 mmol/L 10/19/2024 4:55 AM EDT [facility] CO2 18(L) 20 - 31 mmol/L 10/19/2024 4:55 AM EDT [facility] Calcium 7.6(L) 8.7 - 10.5 mg/dL 10/19/2024 4:55 AM EDT [facility] Alkaline Phosphatase 142(H) 45 - 128 U/L 10/19/2024 4:55 AM EDT [facility] Aspartate Aminotrans (AST) 35(H) <34 U/L 10/19/2024 4:55 AM EDT [facility] Alanine Aminotrans (ALT) 22 10 - 49 U/L 10/19/2024 4:55 AM EDT [facility] Bilirubin, Total 0.2(L) 0.3 - 1.2 mg/dL 10/19/2024 4:55 AM EDT [facility] Protein, Total 6.7 5.7 - 8.2 g/dL 10/19/2024 4:55 AM EDT [facility] Albumin 3.4 3.4 - 4.8 g/dL 10/19/2024 4:55 AM EDT [facility] BUN/Creatinine Ratio 13 10.0 - 25.0 Ratio 10/19/2024 4:55 AM EDT [facility] Globulin 3.3 1.5 - 3.9 g/dL 10/19/2024 4:55 AM EDT [facility] Albumin/Globulin Ratio 1.0(L) 1.5 - 2.5 Ratio 10/19/2024 4:55 AM EDT [facility] Anion Gap 14 5 - 15 10/19/2024 4:55 AM EDT [facility] Blood Blood specimen / Unknown 10/19/2024 4:16 AM EDT 10/19/2024 4:27 AM EDT Hadley Johnson MD LAB BLOOD ORDERABLES [facility] [address] [place] [address], * MAGNESIUM (10/19/2024 4:16 AM EDT) Magnesium 1.9 1.6 - 2.6 mg/dL 10/19/2024 4:55 AM EDT [facility] Blood Blood specimen / Unknown 10/19/2024 4:16 AM EDT 10/19/2024 4:27 AM EDT Hadley Johnson MD LAB BLOOD ORDERABLES [facility] [address] [place] [address], [place] * (ABNORMAL) Complete Blood Count, with Differential (10/19/2024 4:16 AM EDT) White Blood Cell Count 10.7 4.0 - 11.0 Thou/uL 10/19/2024 4:34 AM EDT [facility] Platelet Count 192 150 - 450 Thou/uL 10/19/2024 4:34 AM EDT [facility] Hemoglobin 7.6(L) 13.0 - 17.7 g/dL 10/19/2024 4:34 AM EDT [facility] Hematocrit 24.1(L) 39.0 - 54.0 % 10/19/2024 4:34 AM EDT [facility] Red Blood Cell Count 2.55(L) 4.50 - 6.20 Mil/uL 10/19/2024 4:34 AM EDT [facility] MCV 95 80 - 100 fL 10/19/2024 4:34 AM EDT [facility] MCH 29.8 27.0 - 31.0 pg 10/19/2024 4:34 AM EDT [facility] MCHC 31.5 30.0 - 36.0 g/dL 10/19/2024 4:34 AM EDT [facility] RDW 14.8(H) 11.5 - 14.5 % 10/19/2024 4:34 AM EDT [facility] MPV 10.7 7.5 - 12.5 fL 10/19/2024 4:34 AM EDT [facility] nRBC 0.3(H) 0.0 - 0.1 /100 WBC 10/19/2024 4:34 AM EDT [facility] nRBC, Absolute 0.03(H) 0.00 - 0.02 Thou/uL 10/19/2024 4:34 AM EDT [facility] Neutrophils Auto 86.8 % 10/20/19 4:34 AM EDT [facility] Immature Granulocytes 1.0 % 10/19/2024 4:34 AM EDT [facility] Lymphocytes Auto 6.1 % 10/20/19 4:34 AM EDT [facility] Monocytes Auto 5.9 % 10/19/2024 4:34 AM EDT [facility] Eosinophils Auto 0.0 % 10/20/19 4:34 AM EDT [facility] Basophils Auto 0.2 % 10/19/2024 4:34 AM EDT [facility] Abs Neutrophils Auto 9.24(H) 2.00 - 7.50 Thou/uL 10/19/2024 4:34 AM EDT [facility] Abs Immature Granulocytes 0.11(H) 0.00 - 0.10 Thou/uL 10/19/2024 4:34 AM EDT [facility] Abs Lymphocytes Auto 0.65(L) 1.50 - 4.50 Thou/uL 10/19/2024 4:34 AM EDT [facility] Abs Monocytes Auto 0.63 0.20 - 1.50 Thou/uL 10/19/2024 4:34 AM EDT [facility] Abs Eosinophils Auto 0.00 0.00 - 0.70 Thou/uL 10/19/2024 4:34 AM EDT [facility] Abs Basophils Auto 0.02 0.00 - 0.20 Thou/uL 10/19/2024 4:34 AM EDT [facility] Blood Blood specimen / Unknown 10/19/2024 4:16 AM EDT 10/19/2024 4:27 AM EDT Hadley Johnson MD LAB BLOOD ORDERABLES Performing Organization Address [facility] Co de Phone Number [address] * (ABNORMAL) PHOSPHORUS (10/19/2024 4:16 AM EDT) Phosphorus 7.1(H) 2.4 - 5.1 mg/dL 10/19/2024 4:55 AM EDT [facility] Blood Blood specimen / Unknown 10/19/2024 4:16 AM EDT 10/19/2024 4:27 AM EDT Hadley Johnson MD LAB BLOOD ORDERABLES Performing Organization Address [facility] de Phone Number [address] * (ABNORMAL) POCT Glucose, Fingerstick (10/19/2024 4:11 AM EDT) POC Glucose 179(H) 65 - 99 mg/dL 10/19/2024 4:18 AM EDT Comment:Notified RN Blood specimen / Unknown 10/19/2024 4:11 AM EDT 10/19/2024 4:18 AM EDT Hadley Johnson MD POINT OF CARE TEST O RDERABLES Performing Organization Address [facility] Co de Phone Number HOSPITAL LAB See Below * (ABNORMAL) POCT Glucose, Fingerstick (10/18/2024 11:37 PM EDT) POC Glucose 169(H) 65 - 99 mg/dL 10/18/2024 11:44 PM EDT Comment:Notified RN Blood specimen / Unknown 10/18/2024 11:37 PM EDT 10/18/2024 11:44 PM EDT Hadley Johnson MD POINT OF CARE TEST O RDERABLES Performing Organization Address City/[facility]/ZIP Co de Phone Number HOSPITAL [facility] See Below * (ABNORMAL) POCT, Ionized Calcium (10/18/2024 11:02 PM EDT) POC Ionized Calcium 4.30(L) 4.60 - 5.32 mg/dL 10/18/2024 11:06 PM EDT [facility] Smear Cmt LEFT RADIAL POSITIVE COLLATERAL No comment 10/18/2024 11:06 PM EDT [facility] 10/18/2024 11:0 2 PM EDT 10/18/2024 11:05 PM EDT Hadley Johnson MD POCT ORDERABLES - DE VICE [facility],PULMONARY LAB [address] [place] [address], [facility],Pulmonary Lab [address] [place], [place] * POCT, Lactate (10/18/2024 11:02 PM EDT) [facility] Lactate, POC 0.6 0.4 - 0.8 mmol/L 10/18/2024 11:06 PM EDT [facility] Comment LEFT RADIAL POSITIVE COLLATERAL No comment 10/18/2024 11:06 PM EDT [facility] 10/18/2024 11:0 2 PM EDT 10/18/2024 11:05 PM EDT Hadley Johnson MD POCT ORDERABLES - DE VICE [facility],PULMONARY LAB [address] [place] [address], [facility],Pulmonary Lab [address] [place], [place] * POCT, Sodium (10/18/2024 11:02 PM EDT) Pathologist [facility] [place] Sodium 138 136 - 145 mmol/L 10/18/2024 11:06 PM EDT [facility] Smear Comm LEFT RADIAL POSITIVE COLLATERAL No comment 10/18/2024 11:06 PM EDT [facility] 10/18/2024 11:0 2 PM EDT 10/18/2024 11:05 PM EDT Hadley Johnson MD POCT ORDERABLES - DE VICE [facility],PULMONARY LAB [address] [place] [address], [facility],Pulmonary Lab [address] [place] [facility], [place] * POCT, Potassium (10/18/2024 11:02 PM EDT) Potassium 4.3 3.5 - 5.1 mmol/L 10/18/2024 11:06 PM EDT [facility] Comment LEFT RADIAL POSITIVE COLLATERAL No comment 10/18/2024 11:06 PM EDT [facility] 10/18/2024 11:0 2 PM EDT 10/18/2024 11:05 PM EDT Hadley Johnson MD POCT ORDERABLES - DE VICE [facility],PULMONARY LAB [address] [place] [address], [facility],Pulmonary Lab [address] [place] [facility], [place] * (ABNORMAL) POCT, Hematocrit (10/18/2024 11:02 PM EDT) Hematocrit 25.0(L) 40 - 50 % 10/18/2024 11:06 PM EDT [facility] Comment LEFT RADIAL POSITIVE COLLATERAL 10/18/2024 11:06 PM EDT [facility] 10/18/2024 11:0 2 PM EDT 10/18/2024 11:05 PM EDT Hadley Johnson MD POCT ORDERABLES - DE VICE [facility],PULMONARY LAB [address] [place] [address], [facility],Pulmonary Lab [address], [place] * (ABNORMAL) POCT, Glucose (10/18/2024 11:02 PM EDT) Glucose POC 206(H) 70 - 108 mg/dL 10/18/2024 11:06 PM EDT [facility] Comment LEFT RADIAL POSITIVE COLLATERAL No comment 10/18/2024 11:06 PM EDT [facility] 10/18/2024 11:0 2 PM EDT 10/18/2024 11:05 PM EDT Hadley Johnson MD POCT ORDERABLES - DE VICE [facility],PULMONARY LAB [address] [place] [address], [facility],Pulmonary Lab [address], [place] * POCT, Cooximetry (10/18/2024 11:02 PM EDT) Carboxyhemoglobin 0.0 % 025 11:06 PM EDT [facility] Methemoglobin 0.7 % 10/18/2024 11:06 PM EDT [facility] Oxyhemoglobin, POC 94.8000 % 2024 11:06 PM EDT [facility] Reduced Hemoglobin 4.5 % 2024 11:06 PM EDT [facility] Hemoglobin, POC 8.4 11:06 PM EDT [facility] POC Sample Type Arterial 11:06 PM EDT [facility] Comment LEFT RADIAL POSITIVE COLLATERAL 10/18/2024 11:06 PM EDT [facility] 10/18/2024 11:0 2 PM EDT 10/18/2024 11:05 PM EDT Hadley Johnson MD POCT ORDERABLES - DE VICE [facility],PULMONARY LAB [address] [place] [address], [facility],Pulmonary Lab [address], [place] * (ABNORMAL) POCT Blood Gas, Arterial (10/18/2024 11:02 PM EDT) Sample Type Arterial 10/18/2024 11:06 PM EDT [facility] pH, Arterial 7.23(LL) 7.35 - 7.45 10/18/2024 11:06 PM EDT [facility] pCO2, Arterial 38 35 - 45 mmHG 10/18/2024 11:06 PM EDT [facility] pO2, Arterial 72(L) 80 - 100 mmHG 10/18/2024 11:06 PM EDT [facility] HCO3 16.0(L) 22 - 26 mmol/L 10/18/2024 11:06 PM EDT [facility] O2 Saturation, Arterial 96.0 95 - 100 % 10/18/2024 11:06 PM EDT [facility] Base Deficit, Arterial 10.8 mmol/L 10/18/2024 11:06 PM EDT [facility] Comment:REFERENCE RANGE: NEG ATIVE 2 TO POSITIVE 2 Liter Flow, I-STAT 2.0 10/18/2024 11:06 PM EDT [facility] Comments POC LEFT RADIAL POSITIVE COLLATERAL 10/18/2024 11:06 PM EDT [facility] Comment REPORTED TO ALLYSSA 10/18/2024 11:06 PM EDT [facility] 10/18/2024 11:0 2 PM EDT 10/18/2024 11:05 PM EDT Hadley Johnson MD POCT ORDERABLES - DE VICE [facility],PULMONARY LAB [address] [place] [address], [facility],Pulmonary Lab [address], [place] * (ABNORMAL) POCT Glucose, Fingerstick (10/18/2024 8:22 PM EDT) POC Glucose 212(H) 65 - 99 mg/dL 10/18/2024 8:29 PM EDT Comment:Notified RN Blood specimen / Unknown 10/18/2024 8:22 PM EDT 10/18/2024 8:29 PM EDT Hadley Johnson MD POINT OF CARE TEST O RDERABLES [facility] See Below * (ABNORMAL) Basic Metabolic Panel (STAT) (10/18/2024 7:51 PM EDT) Glucose 234(H) 74 - 106 mg/dL 10/18/2024 8:26 PM EDT [facility] Comment:Fasting: <100 mg/dL, Non-Fasting: <200 mg/dL (ADA 2004) Blood Urea Nitrogen (BUN) 86(H) 9 - 23 mg/dL 10/18/2024 8:26 PM EDT [facility] Creatinine 7.1(H) 0.7 - 1.3 mg/dL 10/18/2024 8:26 PM EDT [facility] eGFR 8(L) >59 10/18/2024 8:26 PM EDT [facility] Comment:CKD-EPI (2020) in mL /min/1.73 sq meters. Sodium 143 136 - 145 mmol/L 10/18/2024 8:26 PM EDT [facility] Potassium 5.2(H) 3.4 - 4.5 mmol/L 10/18/2024 8:26 PM EDT [facility] Chloride 111(H) 98 - 107 mmol/L 10/18/2024 8:26 PM EDT [facility] CO2 18(L) 20 - 31 mmol/L 10/18/2024 8:26 PM EDT [facility] Anion Gap 14 5 - 15 10/18/2024 8:26 PM EDT [facility] Calcium 7.8(L) 8.7 - 10.5 mg/dL 10/18/2024 8:26 PM EDT [facility] BUN/Creatinine Ratio 12 10.0 - 25.0 Ratio 10/18/2024 8:26 PM EDT [facility] Blood Blood specimen / Unknown 10/18/2024 7:51 PM EDT 10/18/2024 7:58 PM EDT Hadley Johnson MD LAB BLOOD ORDERABLES [facility] [address] [place] [id number], * (ABNORMAL) POCT Blood Gas, Arterial (10/18/2024 5:39 PM EDT) Sample Type Arterial 10/18/2024 5:41 PM EDT [facility] pH, Arterial 7.22(LL) 7.35 - 7.45 10/18/2024 5:41 PM EDT [facility] pCO2, Arterial 37 35 - 45 mmHG 10/18/2024 5:41 PM EDT [facility] pO2, Arterial 148(H) 80 - 100 mmHG 10/18/2024 5:41 PM EDT [facility] HCO3 15.0(L) 22 - 26 mmol/L 10/18/2024 5:41 PM EDT [facility] O2 Saturation, Arterial 98.0 95 - 100 % 10/18/2024 5:41 PM EDT [facility] Base Deficit, Arterial 11.8 mmol/L 10/18/2024 5:41 PM EDT [facility] Comment:REFERENCE RANGE: NEG ATIVE 2 TO POSITIVE 2 Blood Gas Mode, I-STAT BiPAP 10/18/2024 5:41 PM EDT [facility] INPAP 18.0 10/18/2024 5:41 PM EDT [facility] EPAP 6 10/18/2024 5:41 PM EDT [facility] FIO2 Arterial 40 10/18/2024 5:41 PM EDT [facility] Mech Rate 24 10/18/2024 5:41 PM EDT [facility] Comments POC LEFT RADIAL POSITIVE COLLATERAL 10/18/2024 5:41 PM EDT [facility] Comment REPORTED TO RN 10/18/2024 5:41 PM EDT [facility] 10/18/2024 5:39 PM EDT 10/18/2024 5:41 PM EDT Hadley Johnson MD POCT ORDERABLES - DE VICE [facility],PULMONARY LAB [address] [place] [address], [facility],Pulmonary Lab [address], [place] * Protein/Creatinine Ratio Panel, Urine (10/18/2024 5:26 PM EDT) Protein Urine, Random 338 mg/dL 10/18/2024 10:06 PM EDT [facility] Comment:Reference range not established for random specimen. Creatinine, Urine, Random 114 mg/dL 10/18/2024 9:30 PM EDT [facility] Comment:Reference range not established for random specimen. Protein/Creatini ne Ratio, Urine 2.96 10/18/2024 10:06 PM EDT [facility] Urine Urine specimen / Unknown 10/18/2024 5:26 PM EDT 10/18/2024 8:57 PM EDT Hadley Johnson MD URINE ORDERABLES [facility] [address] [place] [address], [place] * (ABNORMAL) Urinalysis with Reflex to Microscopic and Culture (10/18/2024 5:26 PM EDT) Color Yellow 10/18/2024 9:15 PM EDT [facility] Clarity Clear 10/18/2024 9:15 PM EDT [facility] Specific [place] 1.016 1.003 - 1.030 10/18/2024 9:15 PM EDT [facility] pH 5.0 5.0 - 8.0 10/18/2024 9:15 PM EDT [facility] Leukocyte Esterase Negative Negative 10/18/2024 9:15 PM EDT [facility] Nitrite Negative Negative 10/18/2024 9:15 PM EDT [facility] Protein Large (300 mg/dL)(A) Negative 10/18/2024 9:15 PM EDT [facility] Glucose Moderate 0 - 99 mg/dL 10/18/2024 9:15 PM EDT [facility] Ketones Negative Negative 10/18/2024 9:15 PM EDT [facility] Blood Large(A) Negative 10/18/2024 9:15 PM EDT [facility] Urobilinogen 0.2 0.2 - 1.0 EU/dL 10/18/2024 9:15 PM EDT [facility] Bilirubin Negative Negative 10/18/2024 9:15 PM EDT [facility] WBC 9(H) 0 - 4 per hpf 10/18/2024 9:15 PM EDT [facility] RBC 50(H) 0 - 4 per hpf 10/18/2024 9:15 PM EDT [facility] Bacteria Negative Negative 10/18/2024 9:15 PM EDT [facility] Squamous Epithelial Cells 2 per hpf 10/18/2024 9:[address] [facility] Hyaline Casts 1 0 - 4 per lpf 10/18/2024 9:15 PM EDT [facility] Yeast Absent Absent 10/18/2024 9:15 PM EDT [facility] Urine Urine specimen obtained by clean catch procedure / Unknown 10/18/2024 5:26 PM EDT 10/18/2024 8:56 PM EDT Hadley Johnson MD MICROBIOLOGY - [facility] AL ORDERABLES [facility] [address] [place] [address], * Legionella & Streptococcus Pneumoniae Antigen, Urine (10/18/2024 5:26 PM EDT) Pathologist [facility] [place] Legionella Antigen EIA, Urine Presumptive Negative Presumptive Negative 10/19/2024 8:59 AM EDT [facility] Comment: Presumptive Negative for L.pneumophila [...] Negative Presumptive Negative 10/19/2024 8:59 AM EDT [facility] Comment:Presumptive Negative for Pneumococcal Pneumonia, suggesting no recent or current Pneumococcal Infection. Infection due to S.pneumoniae cannot be ruled out since the antigen level present in the specimen may be below the detection limit of the test. Urine Urine specimen / Unknown 10/18/2024 5:26 PM EDT 10/18/2024 8:57 PM EDT Hadley Johnson MD URINE ORDERABLES [facility] [address] [place] [address], * (ABNORMAL) POCT Glucose, Fingerstick (10/18/2024 4:49 PM EDT) POC Glucose 252(H) 65 - 99 mg/dL 10/18/2024 4:58 PM EDT Blood specimen / Unknown 10/18/2024 4:49 PM EDT 10/18/2024 4:58 PM EDT Hadley Johnson MD POINT OF CARE TEST O [facility] LAB See Below * CT Chest/abdomen+pelvis w/o contrast (10/18/2024 4:15 [...] bowel obstruction seen Urinary Bladder: Decompressed by Ma catheter and not well evaluated Bones: ??No [...] bowel obstruction seen Urinary Bladder: Decompressed by Ma catheter and not well evaluated Bones: No [...] Hadley Johnson MD IMG CT ORDERABLES * (ABNORMAL) PTH, Intact (10/18/2024 3:00 PM EDT) [facility] PTH, Intact 755(H) 18 - 80 pg/mL 10/18/2024 4:18 PM EDT [facility] Blood Blood specimen / Unknown 10/18/2024 3:00 PM EDT 10/18/2024 3:39 PM EDT Hadley Johnson MD LAB BLOOD ORDERABLES [facility] [address] [place] [address], * Nasal MRSA Screen, PCR (10/18/2024 2:45 PM EDT) [facility] MRSA Result Not Detected Not Detected 4:16 PM EDT [facility] Swab, Anterior Nares Specimen from nose / Unknown 10/18/2024 2:45 PM EDT 10/18/2024 2:58 PM EDT Hadley Johnson MD MICROBIOLOGY - GENER AL ORDERABLES Performing Organization Address [facility]/[place] [address], * Lactic Acid, Plasma (STAT) (10/18/2024 1:43 PM EDT) Lactic Acid 1.2 0.5 - 1.9 mmol/L 10/18/2024 2:11 PM EDT [facility] Blood Blood specimen / Unknown 10/18/2024 1:43 PM EDT 10/18/2024 1:49 PM EDT Hadley Johnson MD LAB BLOOD ORDERABLES Performing Organization Address [facility]/[place] [address], * (ABNORMAL) POCT Blood Gas, Arterial (10/18/2024 12:27 PM EDT) Sample Type Arterial 10/18/2024 12:28 PM EDT [facility] pH, Arterial 7.18(LL) 7.35 - 7.45 10/18/2024 12:28 PM EDT [facility] pCO2, Arterial 38 35 - 45 mmHG 10/18/2024 12:28 PM EDT [facility] pO2, Arterial 134(H) 80 - 100 mmHG 10/18/2024 12:28 PM EDT [facility] HCO3 14.0(L) 22 - 26 mmol/L 10/18/2024 12:28 PM EDT [facility] O2 Saturation, Arterial 98.0 95 - 100 % 10/18/2024 12:28 PM EDT [facility] Base Deficit, Arterial 13.4 mmol/L 10/18/2024 12:28 PM EDT [facility] Comment:REFERENCE RANGE: NEG ATIVE 2 TO POSITIVE 2 Blood Gas Mode, I-STAT BiPAP 10/18/2024 12:28 PM EDT [facility] INPAP 14.0 10/18/2024 12:28 PM EDT [facility] EPAP 5 10/18/2024 12:28 PM EDT [facility] FIO2 Arterial 40 10/18/2024 12:28 PM EDT [facility] Mech Rate 18 10/18/2024 12:28 PM EDT [facility] Comments POC LEFT RADIAL POSITIVE COLLATERAL 10/18/2024 12:28 PM EDT [facility] Comment REPORTED TO WEI HEBERT 10/18/2024 12:28 PM EDT [facility] 10/18/2024 12:2 7 PM EDT 10/18/2024 12:28 PM EDT Hadley Johnson MD POCT ORDERABLES - DE VICE [facility],PULMONARY LAB [address] [place] [address], [place] [facility],Pulmonary Lab [address], [place] * Blood Culture (10/18/2024 12:11 PM EDT) Culture Sterile after 5 days 10/23/2024 7:06 AM EDT [facility] Blood Blood specimen / Unknown 10/18/2024 12:11 PM EDT 10/18/2024 12:42 PM EDT Comment:Blood Hadley Johnson MD LAB BLOOD ORDERABLES [facility] [address] [place] [address], [place] * (ABNORMAL) B-Hydroxybutyrate (10/18/2024 12:09 PM EDT) B-Hydroxybutyrate 0.30(H) <0.28 mmol/L 10/18/2024 2:02 PM EDT [facility] Comment: In the presence of uncontrolled diabetes, [...] EDT Hadley Johnson MD LAB BLOOD ORDERABLES [facility] [address] [place] [address], [place] * Blood Culture (10/18/2024 12:09 PM EDT) Culture Sterile after 5 days 10/23/2024 7:06 AM EDT [facility] Blood Blood specimen / Unknown 10/18/2024 12:09 PM EDT 10/18/2024 12:43 PM EDT Comment:Blood Hadley Johnson MD LAB BLOOD ORDERABLES [facility] [address] [place] [address], * (ABNORMAL) Phosphorus (STAT) (10/18/2024 12:09 PM EDT) Phosphorus 6.6(H) 2.4 - 5.1 mg/dL 10/18/2024 1:18 PM EDT [facility] Blood Blood specimen / Unknown 10/18/2024 12:09 PM EDT 10/18/2024 12:44 PM EDT Hadley Johnson MD [place] [address], * Magnesium (STAT) (10/18/2024 12:09 PM EDT) Magnesium 1.6 1.6 - 2.6 mg/dL 10/18/2024 1:18 PM EDT [facility] Blood Blood specimen / Unknown 10/18/2024 12:09 PM EDT 10/18/2024 12:44 PM EDT Hadley Johnson MD LAB BLOOD ORDERABLES Performing Organization Address City/[facility]/[place] [address], * (ABNORMAL) Comprehensive Metabolic Panel (STAT) (10/18/2024 12:09 PM EDT) Glucose 368(H) 74 - 106 mg/dL 10/18/2024 1:18 PM EDT [facility] Comment:Fasting: <100 mg/dL, Non-Fasting: <200 mg/dL (ADA 2004) Blood Urea Nitrogen (BUN) 80(H) 9 - 23 mg/dL 10/18/2024 1:18 PM EDT [facility] Creatinine 7.0(H) 0.7 - 1.3 mg/dL 10/18/2024 1:18 PM EDT [facility] eGFR 8(L) >59 10/18/2024 1:18 PM EDT [facility] Comment:CKD-EPI (2020) in mL /min/1.73 sq meters. Sodium 141 136 - 145 mmol/L 10/18/2024 1:18 PM EDT [facility] Potassium 5.0(H) 3.4 - 4.5 mmol/L 10/18/2024 1:18 PM EDT [facility] Chloride 108(H) 98 - 107 mmol/L 10/18/2024 1:18 PM EDT [facility] CO2 18(L) 20 - 31 mmol/L 10/18/2024 1:18 PM EDT [facility] Calcium 7.8(L) 8.7 - 10.5 mg/dL 10/18/2024 1:18 PM EDT [facility] Alkaline Phosphatase 154(H) 45 - 128 U/L 10/18/2024 1:18 PM EDT [facility] Aspartate Aminotrans (AST) 35(H) <34 U/L 10/18/2024 1:18 PM EDT [facility] Alanine Aminotrans (ALT) 23 10 - 49 U/L 10/18/2024 1:18 PM EDT [facility] Bilirubin, Total 0.2(L) 0.3 - 1.2 mg/dL 10/18/2024 1:18 PM EDT [facility] Protein, Total 7.1 5.7 - 8.2 g/dL 10/18/2024 1:18 PM EDT [facility] Albumin 3.6 3.4 - 4.8 g/dL 10/18/2024 1:18 PM EDT [facility] BUN/Creatinine Ratio 11 10.0 - 25.0 Ratio 10/18/2024 1:18 PM EDT [facility] Globulin 3.5 1.5 - 3.9 g/dL 10/18/2024 1:18 PM EDT [facility] Albumin/Globulin Ratio 1.1(L) 1.5 - 2.5 Ratio 10/18/2024 1:18 PM EDT [facility] Anion Gap 16(H) 5 - 15 10/18/2024 1:18 PM EDT [facility] Blood Blood specimen / Unknown 10/18/2024 12:09 PM EDT 10/18/2024 12:44 PM EDT Hadley Johnson MD LAB BLOOD ORDERABLES [facility] [address] [place] [address], [place] * (ABNORMAL) Complete Blood Count WITH Differential - STAT (10/18/2024 12:09 PM EDT) White Blood Cell Count 10.6 4.0 - 11.0 Thou/uL 10/18/2024 12:47 PM EDT [facility] Platelet Count 191 150 - 450 Thou/uL 10/18/2024 12:47 PM EDT [facility] Hemoglobin 7.9(L) 13.0 - 17.7 g/dL 10/18/2024 12:47 PM EDT [facility] Hematocrit 25.6(L) 39.0 - 54.0 % 10/18/2024 12:47 PM EDT [facility] Red Blood Cell Count 2.63(L) 4.50 - 6.20 Mil/uL 10/18/2024 12:47 PM EDT [facility] MCV 97 80 - 100 fL 10/18/2024 12:47 PM EDT [facility] MCH 30.0 27.0 - 31.0 pg 10/18/2024 12:47 PM EDT [facility] MCHC 30.9 30.0 - 36.0 g/dL 10/18/2024 12:47 PM EDT [facility] RDW 15.0(H) 11.5 - 14.5 % 10/18/2024 12:47 PM EDT [facility] MPV 11.1 7.5 - 12.5 fL 10/18/2024 12:47 PM EDT [facility] Neutrophils Auto 90.5 % 10/19/19 12:47 PM EDT [facility] Immature Granulocytes 1.4 % 10/18/2024 12:47 PM EDT [facility] Lymphocytes Auto 4.2 % 10/19/19 12:47 PM EDT [facility] Monocytes Auto 3.7 % 10/18/2024 12:47 PM EDT [facility] Eosinophils Auto 0.0 % 10/19/19 12:47 PM EDT [facility] Basophils Auto 0.2 % 10/18/2024 12:47 PM EDT [facility] Abs Neutrophils Auto 9.58(H) 2.00 - 7.50 Thou/uL 10/18/2024 12:47 PM EDT [facility] Abs Immature Granulocytes 0.15(H) 0.00 - 0.10 Thou/uL 10/18/2024 12:47 PM EDT [facility] Abs Lymphocytes Auto 0.45(L) 1.50 - 4.50 Thou/uL 10/18/2024 12:47 PM EDT [facility] Abs Monocytes Auto 0.39 0.20 - 1.50 Thou/uL 10/18/2024 12:47 PM EDT [facility] Abs Eosinophils Auto 0.00 0.00 - 0.70 Thou/uL 10/18/2024 12:47 PM EDT [facility] Abs Basophils Auto 0.02 0.00 - 0.20 Thou/uL 10/18/2024 12:47 PM EDT [facility] Blood Blood specimen / Unknown 10/18/2024 12:09 PM EDT 10/18/2024 12:44 PM EDT Hadley Johnson MD LAB BLOOD ORDERABLES [facility] [address] [place] [address], * (ABNORMAL) POCT Glucose, Fingerstick (10/18/2024 12:05 PM EDT) POC Glucose 357(H) 65 - 99 mg/dL 10/18/2024 12:13 PM EDT Blood specimen / Unknown 10/18/2024 12:05 PM EDT 10/18/2024 12:13 PM EDT Hadley Johnson MD POINT OF CARE TEST O RDERABLES [facility]ITAL LAB See Below * ECG 12 lead (10/18/2024 11:36 AM EDT) Ventricular rate 84 BPM EKG [facility] Atrial rate 84 BPM EKG [facility] P-R interval 154 ms EKG [facility] QRS duration 78 ms EKG [facility] Q-T interval 412 ms EKG [facility] QTC calculation (Bazett) 487 ms EKG [facility] P axis 52 degrees EKG [facility] R axis 5 degrees EKG [facility] T axis 41 degrees EKG [facility] 10/18/2024 11:3 6 AM EDT Narrative EKG [facility] - 10/18/2024 11:38 AM EDT Normal sinus rhythm Prolonged QT Abnormal ECG No previous ECGs available Confirmed by MD Simmons Venu ([id number]) on 10/18/2024 11:38:06 AM Procedure Note Roland Simmons MD - 10/18/2024 Normal sinus rhythm Prolonged QT Abnormal ECG No previous ECGs available Confirmed by MD Simmons Venu ([id number]) on 10/18/2024 11:38:06 AM Hadley Johnson MD ECG ORDERABLES Performing Organization Address [facility] de Phone Number EKG [facility] * XR Chest 1 view-Portable (10/18/2024 11:30 AM EDT) Anatomical Region Laterality Modality Chest Digital Radiogra phy 10/18/2024 11:4 0 AM EDT Impressions 10/18/2024 11:41 AM EDT Patchy airspace opacities within the right upper lobe concerning for pneumonia. Follow-up to document resolution is recommended. Narrative 10/18/2024 11:41 AM EDT CLINICAL INFORMATION: pneumonia COMPARISON: None. TECHNIQUE: ??AP view of the chest. FINDINGS: Heart/Mediastinum: ??The cardiac silhouette is mildly enlarged. ??Unremarkable mediastinum. Lungs: ??Patchy airspace opacities visualized within the right upper lobe concerning for pneumonia.. ??Mild left basilar subsegmental atelectasis. No large pleural effusion. Osseous Structures: ??No acute abnormalities. Procedure Note Vinny Strong MD - 10/18/2024 CLINICAL INFORMATION: pneumonia COMPARISON: None. TECHNIQUE: AP view of the chest. FINDINGS: Heart/Mediastinum: The cardiac silhouette is mildly enlarged.Unremarkable mediastinum. Lungs: Patchy airspace opacities visualized within the right upper lobeconcerning for pneumonia.. Mild left basilar subsegmental atelectasis. Nolarge pleural effusion. Osseous Structures: No acute abnormalities. IMPRESSION: Patchy airspace opacities within the right upper lobe concerning forpneumonia. Follow-up to document resolution is recommended. Hadley Johnson MD IMG DIAGNOSTIC IMAGI NG ORDERABLES documented in this encounter Visit Diagnoses Diagnosis Acute hypoxic respiratory failure (HCC)- Primary Acute hypoxic respiratory failure (HCC) Pneumonia due to infectious organism, unspecified laterality, unspecified part of lung documented in this encounter Admitting Diagnoses Diagnosis Acute hypoxic respiratory failure (HCC) documented in this encounter Administered Medications Inactive Administered Medications - up to 1 most recent administrations Medication Order MAR Action Action Date Dose Rate Site acetaminophen (TYLENOL) tablet 650 mg 650 mg, Oral, Once, On Elena 10/20/24 at 1800, For 1 dose Given 10/20/2024 5:55 PM EDT 650 mg allopurinol (ZYLOPRIM) tablet 100 mg 100 mg, Oral, Daily, First dose on Thu10/18/24 at 1130, Administer after meals with plenty of fluid. Given 10/22/2024 8:19 AM EDT 100 mg ALPRAZolam (XANAX) tablet 0.25 mg 0.25 mg, Oral, Once, On Thu10/19/24 at 1730, For 1 dose Given 10/19/2024 5:31 PM EDT 0.25 mg amLODIPine (NORVASC) tablet 10 mg 10 mg, Oral, Daily, First dose on Thu10/18/24 at 1130, Hold for SBP less than 100 mmHg. Notify provider if a dose is held. Given 10/22/2024 8:19 AM EDT 10 mg atorvastatin (LIPITOR) tablet 40 mg 40 mg, Oral, Daily, First dose on Thu10/18/24 at 1130 Given 10/22/2024 8:19 AM EDT 40 mg bisacodyl (DULCOLAX) suppository 10 mg 10 mg, Rectal, Daily PRN, constipation, if no bowel movement by day 2, Starting on Thu10/18/24 at 1057 cefTRIAXone (ROCEPHIN) IV Push 1 g 1 g, Intravenous, Every 24 hours, First dose on Thu10/18/24 at 1130, For 4 doses, For IV push: Reconstitute with 9.6 mL SWFI, NS or D5. Final volume = 10 mL. Give IV Push over 1-4 minutes.=, All antimicrobials used at [facility] require an indication. Please complete the following documentation. Bacterial Infection Documented, Type of Therapy: Continued from [facility], Indication: Pneumonia Given 10/21/2024 12:24 PM EDT 1 g cefTRIAXone (ROCEPHIN) IV Push 1 g 1 g, Intravenous, Every 24 hours, First dose (after last modification) on Thu10/22/24 at 0900, For 4 doses, For IV push: Reconstitute with 9.6 mL SWFI, NS or D5. Final volume = 10 mL. Give IV Push over 1-4 minutes.=, All antimicrobials used at [facility] require an indication. Please complete the following documentation. Bacterial Infection Documented, Type of Therapy: Continued from [facility], Indication: Pneumonia Given 10/22/2024 8:19 AM EDT 1 g chlorhexidine gluconate 2 % wipes - urethral catheter CHG application Topical, Daily, First dose on Thu10/18/24 at 1130, Each pack = 6 wipes. Dose = 1 each. Given 10/21/2024 2:48 PM EDT 1 each dextrose 5 % (D5W) 1,000 mL with sodium bicarbonate 150 mEq infusion 50 mL/hr, Intravenous, Continuous, Starting on Thu10/18/24 at 2300 Rate/Dose Verify 10/20/2024 6:00 AM EDT 50 mL/hr 50 mL/hr dextrose 50 % solution 12.5 g 12.5 g, Intravenous, Every 15 min PRN, low blood sugar, between 50 and 69 mg/dL, Starting on Thu10/18/24 at 1117, For patient with IV access who is NPO or unable to swallow. See Hypoglycemia Management guideline. dextrose 50 % solution 25 g 25 g, Intravenous, Every 15 min PRN, low blood sugar, less than 50 mg/dL, Starting on Thu10/18/24 at 1117, For patient with IV access who is NPO or unable to swallow. See Hypoglycemia Management guideline. doxycycline (VIBRAMYCIN) 100 mg in sodium chloride-MBP (NS) 100 mL IVPB-MBP 100 mg, Intravenous, Administer over 120 Minutes, Every 12 hours, First dose on Thu10/18/24 at 1230, For 4 days, All antimicrobials used at [facility] require an indication. Please complete the following documentation. Bacterial Infection Documented, Type of Therapy: Modification of Therapy, Indication: Pneumonia New Bag 10/21/2024 11:44 PM EDT 100 mg 50 mL/hr glucagon (GLUCAGEN) injection 1 mg 1 mg, Intramuscular, Daily PRN, low blood sugar, for Blood Glucose LESS than 70 mg/dL and NPO and no IV access, Starting on Thu10/18/24 at 1117, Glucagon may be repeated x 1 (for a total of 2 doses per hypoglycemic event) if patient remains hypoglycemic after first dose. Do not use with hepatic disease or alcohol intoxication. See Hypoglycemia Management guideline. Reconstitute vial with 1 mL sterile water for injection. glucose (GLUTOSE 15) 40 % oral gel 37.5 g 37.5 g (1 Tube), Oral, Every 15 min PRN, low blood sugar, between 50 and 69 mg/dL, Starting on Thu10/18/24 at 1117, Juice or soda is preferred for alert patients (4 oz juice or 6 oz soda). Use glucose gel for patients with fluid restriction. See Hypoglycemia Management guideline. Each 37.5 gram tube of glucose 40 % = 15 grams of glucose. glucose (GLUTOSE 15) 40 % oral gel 75 g 75 g (2 Tube), Oral, Every 15 min PRN, low blood sugar, less than 50 mg/dL, Starting on Thu10/18/24 at 1117, Juice or soda is preferred for alert patients (8 oz juice or 12 oz soda). Use glucose gel for patients with fluid restriction. See Hypoglycemia Management guideline. Each 37.5 gram tube of glucose 40 % = 15 grams of glucose. heparin (porcine) 5000 unit/mL injection 5,000 Units 5,000 Units, Subcutaneous, Every 8 hours scheduled, First dose on Thu10/18/24 at 1400, For subcutaneous use the injection sites should be rotated (usually left and right portions of the abdomen, above iliac crest). Given 10/21/2024 9:08 PM EDT 5,000 Units Left Arm insulin glargine (LANtus/SEMGLEE) 100 units/mL injection 30 Units 30 Units, Subcutaneous, Nightly, First dose (after last modification) on Thu10/18/24 at 2100, Please ensure this is the total daily basal dose. Given 10/18/2024 8:42 PM EDT 30 Units Right Arm insulin glargine (LANtus/SEMGLEE) 100 units/mL injection 40 Units 40 Units, Subcutaneous, Nightly, First dose (after last modification) on Thu10/19/24 at 2100, Please ensure this is the total daily basal dose. Given 10/21/2024 8:14 PM EDT 40 Units Left Arm insulin lispro (HumaLOG/ADMELOG) 100 units/mL injection 1-11 Units 1-11 Units, Subcutaneous, Every 4 hours scheduled, First dose on Thu10/18/24 at 1230, DO NOT HOLD IF NPO Notify provider if Blood Glucose LESS than 70 For BG 141-160 administer 1 unit For BG 161-180 administer 2 units For BG 181-200 administer 3 units For BG 201-220 administer 4 units For BG 221-240 administer 5 units For BG 241-260 administer 6 units For BG 261-280 administer 7 units For BG 281-300 administer 8 units For BG 301-320 administer 9 units, For BG 321-340 administer 10 units For BG MORE than 340, administer 11 units AND notify provider Given 10/20/2024 5:22 PM EDT 1 Units Right Arm insulin lispro (HumaLOG/ADMELOG) 100 units/mL injection 1-11 Units 1-11 Units, Subcutaneous, 3 times daily with meals, First dose (after last modification) on Thu10/21/24 at 0800, DO NOT HOLD IF NPO Notify provider if Blood Glucose LESS than 70 For BG 141-160 administer 1 unit For BG 161-180 administer 2 units For BG 181-200 administer 3 units For BG 201-220 administer 4 units For BG 221-240 administer 5 units For BG 241-260 administer 6 units For BG 261-280 administer 7 units For BG 281-300 administer 8 units For BG 301-320 administer 9 units, For BG 321-340 administer 10 units For BG MORE than 340, administer 11 units AND notify provider Given 10/22/2024 8:16 AM EDT 1 Units Abdominal Tissue insulin lispro (HumaLOG/ADMELOG) 100 units/mL injection 6 Units 6 Units, Subcutaneous, 3 times daily with meals, First dose on Thu10/21/24 at 1700 Given 10/22/2024 8:16 AM EDT 6 Units Abdominal Tissue ipratropium-albuterol (DUONEB) 0.5-2.5 mg/3 mL nebulizer solution 3 mL 3 mL, Nebulization, Every 6 hours PRN, wheezing, shortness of breath, Starting on Thu10/19/24 at 1144, Albuterol expressed in base strength. Albuterol sulfate 3 mg = albuterol (base) 2.5 mg., Albuterol or Duoneb Indication: Bronchospasm lactulose (ENULOSE) 10 gm/15 mL solution 20 g 20 g (30 mL), Oral, Every 4 hours PRN, constipation, if no bowel movment by day 3, Starting on Thu10/18/24 at 1057, Administer until bowel movement Given 10/21/2024 9:23 AM EDT 20 g lidocaine (URO-JET) 2 % jelly Urethral, Once, On Thu10/18/24 at 1400, For 1 dose Given 10/18/2024 2:42 PM EDT lidocaine (URO-JET) 2 % jelly Urethral, Once, On Thu10/20/24 at 1930, For 1 dose Given 10/20/2024 7:18 PM EDT LORazepam (ATIVAN) injection 0.5 mg 0.5 mg, Intravenous, Once, On Thu10/20/24 at 1930, For 1 dose, If ordered IV Push: Dilute with equal amount of normal saline. Do not exceed 2 mg/minute or 0.05 mg/kg over 2-5 minutes. Monitor I.V. site during administration. Avoid intra-arterial administration. Avoid extravasation. Given 10/20/2024 7:14 PM EDT 0.5 mg magnesium sulfate IVPB 2 g in 50 mL SW PREMIX 2 g, Intravenous, Administer over 120 Minutes, Once, On Thu10/18/24 at 1130, For 1 dose New Bag 10/18/2024 12:55 PM EDT 2 g 25 mL/hr magnesium sulfate IVPB 2 g in 50 mL SW PREMIX 2 g, Intravenous, Administer over 120 Minutes, Once, On Thu10/19/24 at 0930, For 1 dose New Bag 10/19/2024 9:20 AM EDT 2 g 25 mL/hr methylPREDNISolone sodium succinate (SOLU-Medrol) injection 40 mg 40 mg, Intravenous, Every 8 hours scheduled, First dose on Thu10/20/24 at 1400 Given 10/21/2024 2:42 PM EDT 40 mg methylPREDNISolone sodium succinate (SOLU-Medrol) injection 40 mg 40 mg, Intravenous, Every 12 hours scheduled, First dose (after last modification) on Thu10/21/24 at 2100 Given 10/22/2024 8:19 AM EDT 40 mg naloxone (NARCAN) 0.4 mg/mL injection 0.4 mg 0.4 mg, Intravenous, Every 5 min PRN, opioid reversal, respiratory depression, Starting on Thu10/18/24 at 1057, Notify provider if administered perflutren lipid microsphere (DEFINITY) 1.3 mL in sodium chloride (NS) 0.9 % 10 mL 0.5-8 mL, Intravenous, Once in imaging, other, Starting on Thu10/20/24 at 1212, For 1 dose, Document total dose administered per policy Given 10/20/2024 12:14 PM EDT 3 mL polyethylene glycol (miraLAx) packet 17 g 17 g, Oral, Daily, First dose on Thu10/22/24 at 0900, Stir and dissolve in 4-8 oz of fluids. Given 10/22/2024 8:18 AM EDT 17 g senna-docusate (SENNA-S) 8.6-50 MG tablet 2 tablet 2 tablet, Oral, Nightly, First dose on Thu10/18/24 at 2100, Hold for diarrhea Given 10/21/2024 8:09 PM EDT 2 tablets sevelamer carbonate (RENVELA) packet 800 mg 800 mg, Oral, 3 times daily with meals, First dose on Thu10/19/24 at 0830, Stir vigorously to suspend mixture just prior to drinking; powder does not dissolve. Drink within 30 minutes of preparing and resuspend just prior to drinking. Given 10/22/2024 8:18 AM EDT 800 mg sodium bicarbonate tablet 1,300 mg 1,300 mg, Oral, 2 times daily, First dose on Elena 10/20/24 at 1230 Given 10/22/2024 8:18 AM EDT 1,300 mg sodium chloride 0.45 % (1/2 NS) 1,000 mL with sodium bicarbonate 100 mEq infusion 100 mL/hr, Intravenous, Continuous, Starting on Thu10/18/24 at 1300, For 1 day New Bag 10/18/2024 1:52 PM EDT 100 mL/hr 100 mL/hr sodium chloride 0.45 % (1/2 NS) 1,000 mL with sodium bicarbonate 75 mEq infusion 75 mL/hr, Intravenous, Continuous, Starting on Thu10/18/24 at 1500, For 1 day Rate/Dose Change 10/18/2024 3:38 PM EDT 75 mL/hr 75 mL/hr documented in this encounter Active and Recently Administered Medications Times are shown in EDT. Scheduled Medication Order 10/20/2024 10/21/2024 10/22/2024 acetaminophen (TYLENOL) tablet 650 mg (COMPLETED) 650 mg, Oral, Once, On Elena 10/20/24 at 1800, For 1 dose 1755 (Given - Provider: Lety Tavera RN) allopurinol (ZYLOPRIM) tablet 100 mg 100 mg, Oral, Daily, First dose on 10/18/24 at 1130, Administer after meals with plenty of fluid. 0912 (Given - Provider: Haylee Burgos RN)1514 (MAR Hold - Provider: Automatic Transfer Provider - Reason: Unreviewed Transfer Orders)1521 (MAR Unhold - Provider: Lety Tavera RN) 0920 (Given - Provider: Aliya Pollock RN) 0819 (Given - Provider: Marquez Wetzel, ANUP) amLODIPine (NORVASC) tablet 10 mg 10 mg, Oral, Daily, First dose on 10/18/24 at 1130, Hold for SBP less than 100 mmHg. Notify provider if a dose is held. 0912 (Given - Provider: Haylee Burgos, ANUP)1514 (SEP Hold - Provider: Automatic Transfer Provider - Reason: Unreviewed Transfer Orders)1521 (SEP Unhold - Provider: Lety Tavera, ANUP) 0920 (Given - Provider: Aliya Pollock, ANUP) 0819 (Given - Provider: Marquez Wetzel, RN) atorvastatin (LIPITOR) tablet 40 mg 40 mg, Oral, Daily, First dose on Thu10/18/24 at 1130 0912 (Given - Provider: Haylee Burgos, ANUP)1514 (SEP Hold - Provider: Automatic Transfer Provider - Reason: Unreviewed Transfer Orders)1521 (SEP Unhold - Provider: Lety Tavera, ANUP) 0919 (Given - Provider: Aliya Pollock, ANUP) 0819 (Given - Provider: Marquez Wetzel, ANUP) calcitRIOL (ROCALTROL) capsule 0.25 mcg 0.25 mcg, Oral, 3 times weekly (Once per day on Thursday), First dose on Thu10/19/24 at 0900, *DO NOT CHEW OR CRUSH*, On hold since Thu10/18/2024 at 1205 until manually unheld 0900 (Not Given - Provider: Aliya Pollock RN - Reason: See Provider Order) 1347 (Provider Unheld - Provider: Automatic Discharge Provider) cefTRIAXone (ROCEPHIN) IV Push 1 g (COMPLETED) 1 g, Intravenous, Every 24 hours, First dose on Thu10/18/24 at 1130, For 4 doses, For IV push: Reconstitute with 9.6 mL SWFI, NS or D5. Final volume = 10 mL. Give IV Push over 1-4 minutes.=, All antimicrobials used at [facility] require an indication. Please complete the following documentation. Bacterial Infection Documented, Type of Therapy: Continued from [facility], Indication: Pneumonia 1235 (Given - Provider: Haylee Burgos RN)1514 (SEP Hold - Provider: Automatic Transfer Provider - Reason: Unreviewed Transfer Orders)1521 (SEP Unhold - Provider: Lety Tavera RN) 1224 (Given - Provider: Aliya Pollock RN) cefTRIAXone (ROCEPHIN) IV Push 1 g 1 g, Intravenous, Every 24 hours, First dose (after last modification) on Thu10/22/24 at 0900, For 4 doses, For IV push: Reconstitute with 9.6 mL SWFI, NS or D5. Final volume = 10 mL. Give IV Push over 1-4 minutes.=, All antimicrobials used at [facility] require an indication. Please complete the following documentation. Bacterial Infection Documented, Type of Therapy: Continued from [facility], Indication: Pneumonia 08 (Given - Provider: Marquez Wetzel RN) chlorhexidine gluconate 2 % wipes - urethral catheter CHG application (CANCELED) Topical, Daily, First dose on Thu10/18/24 at 1130, Each pack = 6 wipes. Dose = 1 each. 0914 (Given - Provider: Haylee Burgos RN)1514 (SEP Hold - Provider: Automatic Transfer Provider - Reason: Unreviewed Transfer Orders)1521 (SEP Unhold - Provider: Lety Tavera RN) 1448 (Given - Provider: Aliya Pollock RN) doxycycline (VIBRAMYCIN) 100 mg in sodium chloride-MBP (NS) 100 mL IVPB-MBP (COMPLETED) 100 mg, Intravenous, Administer over 120 Minutes, Every 12 hours, First dose on Thu10/18/24 at 1230, For 4 days, All antimicrobials used at [facility] require an indication. Please complete the following documentation. Bacterial Infection Documented, Type of Therapy: Modification of Therapy, Indication: Pneumonia 0020 (New Bag - Provider: Pattie Hunter RN)0222 (Stopped - Provider: Pattie Hunter RN)1235 (New Bag - Provider: Haylee Burgos RN)1440 (Stopped - Provider: Haylee Burgos, ANUP)1514 (SEP Hold - Provider: Automatic Transfer Provider - Reason: Unreviewed Transfer Orders)1521 (SEP Unhold - Provider: Lety Tavera RN)2355 (New Bag - Provider: Lisseth Tirado RN) 0235 (Stopped - Provider: Lisseth Tirado RN)1224 (New Bag - Provider: Aliya Pollock RN)1434 (Stopped - Provider: Aliya Pollock RN)2344 (New Bag - Provider: Maranda Alvares, RN) 0145 (Stopped - Provider: Maranda Alvares, RN) gabapentin (NEURONTIN) capsule 300 mg 300 mg, Oral, 2 times daily, First dose on Thu10/18/24 at 2100, On hold since Thu10/18/2024 at 1127 until manually unheld 0900 (Hold - Provider: Haylee Burgos RN - Reason: See Provider Order)2100 (Not Given - Provider: Lisseth Tirado RN - Reason: See Provider Order) 0900 (Not Given - Provider: Aliya Pollock RN - Reason: See Provider Order)2100 (Dose Auto Held) 0900 (Not Given - Provider: Aliya Pollock RN - Reason: See Provider Order)1347 (Provider Unheld - Provider: Automatic Discharge Provider) heparin (porcine) 5000 unit/mL injection 5,000 Units 5,000 Units, Subcutaneous, Every 8 hours scheduled, First dose on Thu10/18/24 at 1400, For subcutaneous use the injection sites should be rotated (usually left and right portions of the abdomen, above iliac crest). 0530 (Given - Provider: Pattie Hunter RN)1445 (Given - Provider: Haylee Burgos RN)1514 (SEP Hold - Provider: Automatic Transfer Provider - Reason: Unreviewed Transfer Orders)1521 (MAR Unhold - Provider: Lety Tavera RN)2154 (Given - Provider: Lisseth Tirado RN) 0614 (Given - Provider: Lisseth Tirado RN)1442 (Given - Provider: Aliya Pollock, RN)2108 (Given - Provider: Maranda Alvares, RN) 0614 (Not Given - Provider: Maranda Alvares, ANUP - Reason: Patient/family refused) insulin glargine (LANtus/SEMGLEE) 100 units/mL injection 40 Units 40 Units, Subcutaneous, Nightly, First dose (after last modification) on Thu10/19/24 at 2100, Please ensure this is the total daily basal dose. 1514 (SEP Hold - Provider: Automatic Transfer Provider - Reason: Unreviewed Transfer Orders)1521 (MAR Unhold - Provider: Lety Tavera, ANUP)2154 (Given - Provider: Lisseth Tirado, RN) 2013 (Given - Provider: Maranda Alvares RN) insulin lispro (HumaLOG/ADMELOG) 100 units/mL injection 1-11 Units (CANCELED) 1-11 Units, Subcutaneous, Every 4 hours scheduled, First dose on Thu10/18/24 at 1230, DO NOT HOLD IF NPO Notify provider if Blood Glucose LESS than 70 For BG 141-160 administer 1 unit For BG 161-180 administer 2 units For BG 181-200 administer 3 units For BG 201-220 administer 4 units For BG 221-240 administer 5 units For BG 241-260 administer 6 units For BG 261-280 administer 7 units For BG 281-300 administer 8 units For BG 301-320 administer 9 units, For BG 321-340 administer 10 units For BG MORE than 340, administer 11 units AND notify provider 0025 (Given - Provider: Pattie Hunter RN)0322 (Given - Provider: Pattie Hunter RN)0915 (Given - Provider: Haylee Burgos, ANUP)1241 (Given - Provider: Haylee Burgos, ANUP)1514 (MAR Hold - Provider: Automatic Transfer Provider - Reason: Unreviewed Transfer Orders)1521 (MAR Unhold - Provider: Lety Tavera RN)1722 (Given - Provider: Lety Tavera RN)215 (Not Given - Provider: Lisseth Tirado RN - Reason: See Provider Order) insulin lispro (HumaLOG/ADMELOG) 100 units/mL injection 1-11 Units 1-11 Units, Subcutaneous, 3 times daily with meals, First dose (after last modification) on Thu10/21/24 at 0800, DO NOT HOLD IF NPO Notify provider if Blood Glucose LESS than 70 For BG 141-160 administer 1 unit For BG 161-180 administer 2 units For BG 181-200 administer 3 units For BG 201-220 administer 4 units For BG 221-240 administer 5 units For BG 241-260 administer 6 units For BG 261-280 administer 7 units For BG 281-300 administer 8 units For BG 301-320 administer 9 units, For BG 321-340 administer 10 units For BG MORE than 340, administer 11 units AND notify provider 0919 (Given - Provider: Aliya Pollock, RN)1224 (Given - Provider: Aliya Pollock, RN)1705 (Given - Provider: Aliya Pollock, RN) 0816 (Given - Provider: Marquez Wetzel, RN) insulin lispro (HumaLOG/ADMELOG) 100 units/mL injection 6 Units 6 Units, Subcutaneous, 3 times daily with meals, First dose on Thu10/21/24 at 1700 1704 (Given - Provider: Aliya Pollock, ANUP) 0816 (Given - Provider: Marquez Wetzel, RN) lidocaine (URO-JET) 2 % jelly (COMPLETED) Urethral, Once, On Thu10/20/24 at 1930, For 1 dose 1917 (Given - Provider: Lety Tavera, ANUP) LORazepam (ATIVAN) injection 0.5 mg (COMPLETED) 0.5 mg, Intravenous, Once, On Thu10/20/24 at 1930, For 1 dose, If ordered IV Push: Dilute with equal amount of normal saline. Do not exceed 2 mg/minute or 0.05 mg/kg over 2-5 minutes. Monitor I.V. site during administration. Avoid intra-arterial administration. Avoid extravasation. 1913 (Given - Provider: Lety Tavera, ANUP) methylPREDNISolone sodium succinate (SOLU-Medrol) injection 40 mg (CANCELED) 40 mg, Intravenous, Every 8 hours scheduled, First dose on Thu10/20/24 at 1400 1445 (Given - Provider: Haylee Burgos, ANUP)1514 (MAR Hold - Provider: Automatic Transfer Provider - Reason: Unreviewed Transfer Orders)1521 (MAR Unhold - Provider: Lety Tavera, ANUP)2156 (Given - Provider: Lisseth Tirado, RN) 0619 (Given - Provider: Lisseth Tirado, RN)1442 (Given - Provider: Aliya Pollock, ANUP) methylPREDNISolone sodium succinate (SOLU-Medrol) injection 40 mg 40 mg, Intravenous, Every 12 hours scheduled, First dose (after last modification) on Thu10/21/24 at 2100 2008 (Given - Provider: Maranda Alvares, ANUP) 0819 (Given - Provider: Marquez Wetzel, RN) polyethylene glycol (miraLAx) packet 17 g 17 g, Oral, Daily, First dose on Thu10/22/24 at 0900, Stir and dissolve in 4-8 oz of fluids. 0818 (Given - Provider: Marquez Wetzel, ANUP) senna-docusate (SENNA-S) 8.6-50 MG tablet 2 tablet 2 tablet, Oral, Nightly, First dose on Thu10/18/24 at 2100, Hold for diarrhea 1514 (MAR Hold - Provider: Automatic Transfer Provider - Reason: Unreviewed Transfer Orders)1521 (MAR Unhold - Provider: Lety Tavera, ANUP)2154 (Given - Provider: Lisseth Tirado RN) 2008 (Given - Provider: Maranda Alvares RN) sevelamer carbonate (RENVELA) packet 800 mg 800 mg, Oral, 3 times daily with meals, First dose on Thu10/19/24 at 0830, Stir vigorously to suspend mixture just prior to drinking; powder does not dissolve. Drink within 30 minutes of preparing and resuspend just prior to drinking. 0912 (Given - Provider: Haylee Burgos RN)1241 (Given - Provider: Haylee Burgos, ANUP)1514 (MAR Hold - Provider: Automatic Transfer Provider - Reason: Unreviewed Transfer Orders)1521 (MAR Unhold - Provider: Lety Tavera RN)1722 (Given - Provider: Lety Tavera, ANUP) 0919 (Given - Provider: Aliya Pollock, ANUP)1224 (Given - Provider: Aliya Pollock, RN)1704 (Given - Provider: Aliya Pollock, ANUP) 0818 (Given - Provider: Marquez Wetzel, ANUP) sodium bicarbonate tablet 1,300 mg 1,300 mg, Oral, 2 times daily, First dose on Elena 10/20/24 at 1230 1250 (Given - Provider: Haylee Bugros, ANUP)1514 (SEP Hold - Provider: Automatic Transfer Provider - Reason: Unreviewed Transfer Orders)1521 (SEP Unhold - Provider: Lety Tavera RN)2154 (Given - Provider: Lisseth Tirado, RN) 0919 (Given - Provider: Aliya Pollock, RN)2008 (Given - Provider: Maranda Alvares, RN) 0818 (Given - Provider: Marquez Wetzel, ANUP) Continuous Medication Order 10/20/2024 10/21/2024 10/22/2024 dextrose 5 % (D5W) 1,000 mL with sodium bicarbonate 150 mEq infusion (CANCELED) 50 mL/hr, Intravenous, Continuous, Starting on Thu10/18/24 at 2300 0000 (Rate/Dose Verify - Provider: Pattie Hunter RN)0200 (Rate/Dose Verify - Provider: Pattie Hunter RN)0400 (Rate/Dose Verify - Provider: Pattie Hunter RN)0600 (Rate/Dose Verify - Provider: Pattie Hunter RN)0912 (Stopped - Provider: Haylee Burgos RN) PRN Medication Order 10/20/2024 10/21/2024 10/22/2024 bisacodyl (DULCOLAX) suppository 10 mg 10 mg, Rectal, Daily PRN, constipation, if no bowel movement by day 2, Starting on Thu10/18/24 at 1057 1514 (SEP Hold - Provider: Automatic Transfer Provider - Reason: Unreviewed Transfer Orders)1521 (SEP Unhold - Provider: Lety Tavera RN) dextrose 50 % solution 12.5 g(Linked Group 1) 12.5 g, Intravenous, Every 15 min PRN, low blood sugar, between 50 and 69 mg/dL, Starting on Thu10/18/24 at 1117, For patient with IV access who is NPO or unable to swallow. See Hypoglycemia Management guideline. 1514 (SEP Hold - Provider: Automatic Transfer Provider - Reason: Unreviewed Transfer Orders)1521 (SEP Unhold - Provider: Lety Tavera RN) dextrose 50 % solution 25 g(Linked Group 1) 25 g, Intravenous, Every 15 min PRN, low blood sugar, less than 50 mg/dL, Starting on Thu10/18/24 at 1117, For patient with IV access who is NPO or unable to swallow. See Hypoglycemia Management guideline. 1513 ([facility] Hold - Provider: Automatic Transfer Provider - Reason: Unreviewed Transfer Orders)152 ([facility] Unhold - Provider: Lety Tavera, ANUP) glucagon (GLUCAGEN) injection 1 mg(Linked Group 1) 1 mg, Intramuscular, Daily PRN, low blood sugar, for Blood Glucose LESS than 70 mg/dL and NPO and no IV access, Starting on Thu10/18/24 at 1117, Glucagon may be repeated x 1 (for a total of 2 doses per hypoglycemic event) if patient remains hypoglycemic after first dose. Do not use with hepatic disease or alcohol intoxication. See Hypoglycemia Management guideline. Reconstitute vial with 1 mL sterile water for injection. 1513 ([facility] Hold - Provider: Automatic Transfer Provider - Reason: Unreviewed Transfer Orders)152 ([facility] Unhold - Provider: Lety Tavera RN) glucose (GLUTOSE 15) 40 % oral gel 37.5 g(Linked Group 1) 37.5 g (1 Tube), Oral, Every 15 min PRN, low blood sugar, between 50 and 69 mg/dL, Starting on Thu10/18/24 at 1117, Juice or soda is preferred for alert patients (4 oz juice or 6 oz soda). Use glucose gel for patients with fluid restriction. See Hypoglycemia Management guideline. Each 37.5 gram tube of glucose 40 % = 15 grams of glucose. 1513 ([facility] Hold - Provider: Automatic Transfer Provider - Reason: Unreviewed Transfer Orders)152 ([facility] Unhold - Provider: Lety Tavera RN) glucose (GLUTOSE 15) 40 % oral gel 75 g(Linked Group 1) 75 g (2 Tube), Oral, Every 15 min PRN, low blood sugar, less than 50 mg/dL, Starting on Thu10/18/24 at 1117, Juice or soda is preferred for alert patients (8 oz juice or 12 oz soda). Use glucose gel for patients with fluid restriction. See Hypoglycemia Management guideline. Each 37.5 gram tube of glucose 40 % = 15 grams of glucose. 151 ([facility] Hold - Provider: Automatic Transfer Provider - Reason: Unreviewed Transfer Orders)1521 ([facility] Unhold - Provider: Lety Tavera, ANUP) ipratropium-albuterol (DUONEB) 0.5-2.5 mg/3 mL nebulizer solution 3 mL 3 mL, Nebulization, Every 6 hours PRN, wheezing, shortness of breath, Starting on Thu10/19/24 at 1144, Albuterol expressed in base strength. Albuterol sulfate 3 mg = albuterol (base) 2.5 mg., Albuterol or Duoneb Indication: Bronchospasm 151 ([facility] Hold - Provider: Automatic Transfer Provider - Reason: Unreviewed Transfer Orders)1521 ([facility] Unhold - Provider: Lety Tavera RN) lactulose (ENULOSE) 10 gm/15 mL solution 20 g 20 g (30 mL), Oral, Every 4 hours PRN, constipation, if no bowel movment by day 3, Starting on Thu10/18/24 at 1057, Administer until bowel movement 151 ([facility] Hold - Provider: Automatic Transfer Provider - Reason: Unreviewed Transfer Orders)1521 ([facility] Unhold - Provider: Lety Tavera, ANUP) 0923 (Given - Provider: Aliya Pollock RN) naloxone (NARCAN) 0.4 mg/mL injection 0.4 mg 0.4 mg, Intravenous, Every 5 min PRN, opioid reversal, respiratory depression, Starting on Thu10/18/24 at 1057, Notify provider if administered 151 ([facility] Hold - Provider: Automatic Transfer Provider - Reason: Unreviewed Transfer Orders)1521 ([facility] Unhold - Provider: Lety Tavera, ANUP) perflutren lipid microsphere (DEFINITY) 1.3 mL in sodium chloride (NS) 0.9 % 10 mL (COMPLETED) 0.5-8 mL, Intravenous, Once in imaging, other, Starting on Thu10/20/24 at 1212, For 1 dose, Document total dose administered per policy 1214 (Given - Provider: Nova Chavez RDCS) Linked Groups Order Group 1: glucose (GLUTOSE 15) 40 % oral gel 37.5 gJump to med 37.5 g (1 Tube), Oral, Every 15 min PRN, low blood sugar, between 50 and 69 mg/dL, Starting on Thu10/18/24 at 1117, Juice or soda is preferred for alert patients (4 oz juice or 6 oz soda). Use glucose gel for patients with fluid restriction. See Hypoglycemia Management guideline. Each 37.5 gram tube of glucose 40 % = 15 grams of glucose. Or glucose (GLUTOSE 15) 40 % oral gel 75 gJump to med 75 g (2 Tube), Oral, Every 15 min PRN, low blood sugar, less than 50 mg/dL, Starting on Thu10/18/24 at 1117, Juice or soda is preferred for alert patients (8 oz juice or 12 oz soda). Use glucose gel for patients with fluid restriction. See Hypoglycemia Management guideline. Each 37.5 gram tube of glucose 40 % = 15 grams of glucose. Or dextrose 50 % solution 12.5 gJump to med 12.5 g, Intravenous, Every 15 min PRN, low blood sugar, between 50 and 69 mg/dL, Starting on Thu10/18/24 at 1117, For patient with IV access who is NPO or unable to swallow. See Hypoglycemia Management guideline. Or dextrose 50 % solution 25 gJump to med 25 g, Intravenous, Every 15 min PRN, low blood sugar, less than 50 mg/dL, Starting on Thu10/18/24 at 1117, For patient with IV access who is NPO or unable to swallow. See Hypoglycemia Management guideline. Or glucagon (GLUCAGEN) injection 1 mgJump to med 1 mg, Intramuscular, Daily PRN, low blood sugar, for Blood Glucose LESS than 70 mg/dL and NPO and no IV access, Starting on Thu10/18/24 at 1117, Glucagon may be repeated x 1 (for a total of 2 doses per hypoglycemic event) if patient remains hypoglycemic after first dose. Do not use with hepatic disease or alcohol intoxication. See Hypoglycemia Management guideline. Reconstitute vial with 1 mL sterile water for injection. documented in this encounter Additional Health Concerns Infection Onset Date Last Indicated Resolved Time RSV Comment:RSV reported from outside facility Contact and Droplet precautions required for duration of illness (at least 8 days from onset and fever free for 24 hours without fever reducing medication(s). If patient is immunocompromised, consult with Infection Prevention prior to discontinuing precautions 10/19/2024 10/19/2024 documented as of this encounter
[2024-10-26 10:54] LABS: Hematocrit 26.1 % (42.0-52.0); Hemoglobin 8.5 g/dl (14.0-18.0); Mean Corpuscular HGB Conc 32.6 g/dl (31.0-36.0); Mean Corpuscular Volume 92.2 fL (80.0-98.0); Mean Platelet Volume 11.8 fL (9.4-12.4); NRBC Pct Auto 0.2 /100WBC (0.0-0.2); Platelet Count 262 X10*3/uL (160-400); Red Blood Count 2.83 X10*6/uL (4.60-5.80); Red Cell Distribution Width 14.6 % (11.0-16.0); White Blood Count 13.3 X10*3/uL (4.8-10.8)
[2024-10-26 12:22] LABS: Anion Gap 18 (12-20); Blood Urea Nitrogen 123 mg/dL (9-16); Calcium 7.8 mg/dL (8.4-10.2); Carbon Dioxide 20 mmol/L (22-29); Chloride 109 mmol/L (96-108); Estimated Glomerular Filt Rate 9; Potassium 4.5 mmol/L (3.3-5.1); Sodium 142 mmol/L (135-145)
[2024-10-26 13:14] LABS: Band Neutrophils Percent 3 % (3-5); Lymphocytes Absolute Manual 0.9 X10*3/uL (1.2-4.9); Lymphocytes Percent Manual 7 % (20-40); Metamyelocytes Absolute 0.4 X10*3/uL; Metamyelocytes Percent 3 %; Monocytes Absolute Manual 0.7 X10*3/uL (0.1-1.2); Monocytes Percent Manual 5 % (2-11); Neutrophils Absolute Manual 11.3 X10*3/uL (2.0-8.3); Neutrophils Percent Manual 82 % (45-73)
[2024-10-26 13:19] LABS: Hypochromasia 1+ (5-14) /OIF; Nucleated Red Blood Cells 1 /100WBC (0-0); Platelet Estimate NORMAL (NORMAL); Platelet Morphology Comment NORMAL; RBC Morphology NOTED
== END 2024-10-26 09:23 | disposition home or self-care (01) ==
LOC: HO.XRAY 09:22
PROVIDERS: PCP Family Medicine; Visit Provider Internal Medicine Nephrology
DX: N17.9 Acute kidney failure, unspecified (principal); N18.4 Chronic kidney disease, stage 4 (severe); E87.5 Hyperkalemia; J18.9 Pneumonia, unspecified organism
CPT/HCPCS: 36415; 71046; 80051; 82310; 82565; 84520; 85007; 85025; 85027; 99212

== ENCOUNTER 2024-10-26 09:54 | Outpatient (AMB) | payer MEDICARE, SELFPAY ==
--- NOTE | 2024-10-26 10:11 | HO.NEPHOV_ITS ---
Vital Signs 10/26/24 10:17 Height 5 ft 11 in Weight 236 lb 6 oz BMI 33.0 BP 140/60 H Blood Pressure Location Rt brachial Position Sitting Pulse 82 Pulse Source Pulse Oximeter Pulse Oximetry (%) 88 L Oxygen Delivery Method Room Air Intake Visit Reasons: FU per MD Chest Xray/Labs Research Laboratory Technician Required: No Accompanied by: Sister Allergies [email or web address] Allergy (Verified 10/26/24 10:13) Unknown HPI Comments Details: Ryan recently had a hospitalization with pneumonia and RSV. He was seen in follow-up of his chronic kidney disease after his recent hospital discharge.. He had acute kidney injury on 2 separate occasions in the past needing hemodialysis on both those times. He has biopsy-proven diabetic nephropathy. His blood sugar control has been bad . He follows up with an cancer registry coordinator. His blood pressure has been at goal. He has been having edema with significant weight gain over last few weeks. His appetite is good and does not have any hypoglycemia. He has no urinary symptoms. He denied taking nonsteroidal anti- inflammatories. His serum creatinine has been fairly stable. He also has been having panic attacks. He had delirium during his recent illness which is better now. [facility] Medical History Proteinuria Type 2 diabetes mellitus with diabetic nephropathy Hypertension Acute kidney injury Review of Systems Const All systems reviewed & are unremarkable except as noted in HPI and below Physical Exam Vital Signs: Last Vital Signs Pulse 82 10/26/24 10:17 BP 140/60 H 10/26/24 10:17 Pulse Ox 88 L 10/26/24 10:17 Oxygen Delivery Method Room Air 10/26/24 10:17 BMI result Body Mass Index 33.0 Const General: no acute distress Orientation/consciousness: patient oriented x3 Eyes EOM: EOMs intact bilaterally Neck Neck: Yes supple Resp Auscultation: crackles and diminished lung sounds Cardio Rate: regular rate GI Palpation (GI): Soft to palpation Neuro General: patient oriented x3 and moves all extremities Extrem General: Yes edema Results Reviewed Nephrology Results: Hgb 8.5 g/dl (14.0-18.0) L 10/26/24 WBC 13.3 X10*3/uL (4.8-10.8) H 10/26/24 Plt Count 262 X10*3/uL (160-400) 10/26/24 Sodium 142 mmol/L (135-145) 10/26/24 Potassium 4.5 mmol/L (3.3-5.1) 10/26/24 Chloride 109 mmol/L (96-108) H 10/26/24 Carbon Dioxide 20 mmol/L (22-29) L 10/26/24 BUN 123 mg/dL (9-16) H 10/26/24 Creatinine 6.29 mg/dL (0.5-1.4) H* 10/26/24 Calcium 7.8 mg/dL (8.4-10.2) L 10/26/24 Urine Protein >=1000 (4+) mg/dL (Neg-Trace) H 5 Assessment & Plan Assessment & Plan (1) Chronic kidney disease, stage 4 (severe): Code(s): N18.4 - Chronic kidney disease, stage 4 (severe) Category: Medical (2) Secondary hyperparathyroidism (of renal origin): Code(s): N25.81 - Secondary hyperparathyroidism of renal origin Category: Medical (3) Hypertension: Code(s): I10 - Essential (primary) hypertension Category: Medical Qualifiers: Hypertension type: primary hypertension Qualified Code(s): I10 - Essential (primary) hypertension (4) Diabetic nephropathy: Code(s): E11.21 - Type 2 diabetes mellitus with diabetic nephropathy Category: Medical Qualifiers: Diabetes mellitus type: type 2 Qualified Code(s): E11.21 - Type 2 diabetes mellitus with diabetic nephropathy (5) Edema: Code(s): R60.9 - Edema, unspecified Category: Medical Qualifiers: Edema type: unspecified Qualified Code(s): R60.9 - Edema, unspecified Plan Ryan has BENJAMIN due to heart failure. He is clinically hypervolemic. I have ordered chest x-ray today. I started him on Lasix 40 mg b.i.d. he does not have any nausea, vomiting or diarrhea. He may be having progression of his renal disease. Hopefully by optimization of his volume status and improved or renal perfusion, he clinically improves and his renal functions will settled to baseline. There is no indication for any renal replacement therapy today. I shall continue to optimize his medications based on evolving data. I have ordered follow-up blood work in 2 weeks. He will need Procrit injections if his hemoglobin does not improve and if his transferrin saturation is more than 20%. I shall arrange that through my office many indicated. Time spent retrieving all the data, patient encounter and documentation 42 minutes. Answered all his and his sister's questions. Follow-up appointment given. Orders: Orders Blood Urea Nitrogen 1 Week N18.4 - Chronic kidney disease, stage 4 (severe) Creatinine 2 Weeks N18.4 - Chronic kidney disease, stage 4 (severe) Creatinine 1 Week N18.4 - Chronic kidney disease, stage 4 (severe) Electrolytes 1 Week N18.4 - Chronic kidney disease, stage 4 (severe) Electrolytes 2 Weeks N18.4 - Chronic kidney disease, stage 4 (severe) Blood Urea Nitrogen 2 Weeks N18.4 - Chronic kidney disease, stage 4 (severe) Medications: New furosemide (Lasix) 40 mg PO BID 60 tabs 3RF Coding Level of Care Code Est Pt Level 5 (78522) Diagnoses Chronic kidney disease, stage 4 (severe) N18.4 Secondary hyperparathyroidism (of renal origin) N25.81 Primary hypertension I10 Hypertension type: primary hypertension Diabetic nephropathy associated with type 2 diabetes mellitus E11.21 Diabetes mellitus type: type 2 Edema, unspecified type R60.9 Edema type: unspecified
[2024-10-26 10:17] VITALS: BP 140/60; PULSE 82; O2SAT 88; BMI 33.0
--- OUTSIDE RECORDS SUMMARY | 2024-10-26 11:19 | XMS_ITS | Clinical Summary ---
Author Organization [facility] Address [address] [facility] [address] [place] [address] Phone Care Team Providers Care Line And Frame Poler Name Role Phone Joanna Angeles MD Primary Care Provider [phone] Allergies Active Allergy Reactions Criticality Noted Date [...] PM EDT) Hemoglobin A1C 10.0(H) (4-6) % [facility] 3 Comment: HEMOGLOBIN A1C(%) ?? GLUCOSE CONTROL INDEX ?<6% ? EXCELLENT ?6-7% ?VERY GOOD ?7-8% ?GOOD ?8-10% ? FAIR ?>10% ?POOR Hemoglobin (Hb) A1c testing is performed by Rita Clau-quant immunoassay. Any cause of shortened erythrocyte survival will reduce exposure of erythrocytes to glucose with a consequent decrease in Hb A1c (%). Testing performed or reported by ~[facility], ~a Service of [facility], ~[address] [place] [address]~ 03/21/2019 2:49 PM EDT us Chris Martínez MD LAB BLOOD ORDERABLES Final Resul t [facility] 3 from Last 3 Months or Most Recently Relevant to Health Maintenance Insurance UHC MEDICARE [facility] MEDICARE Care Teams Line And Frame Poler Relationship Specialty Start Date End Date Joanna Angeles MD [id number] [id number] PCP - General Family Medicine 02/17/23
--- OUTSIDE RECORDS SUMMARY | 2024-10-26 11:20 | XMS_ITS | Encounter Summary ---
Author Organization [facility] Address [address] [place] [address] Care Team Providers Care Job Placement Counselor Name Role Phone Unavailable Primary Care Provider Unavailabl e Reason for Visit * Auth/Cert Specialty Diagnoses / Procedures Referred By Contac t Referred To Contact Diagnoses bilateral multifocal PNA Procedures n/a Referral ID Status Reason Start Date Expiration Date Visits Re quested Visits Authorized [id number] 1 1 Encounter Details Date Type Department Care Team (Latest Contact Info) Description 10/18/2024 10:27 AM EDT - 10/22/2024 11:46 AM EDT Hospital Encounter [address] [address] Marcelino Garcia MD [address] [place] [address] Hadley Johnson MD [address] [place] [address] Adi Bejarano MD [address] [place] [address] Christal Castrejon MD [address] [place] [address] Acute hypoxic respiratory failure (HCC) (Primary Dx); Pneumonia due to infectious organism, unspecified laterality, unspecified part of lung Discharge Disposition: Home or Self Care Social History Tobacco Use Types Packs/Day Years Used Date Smoking Tobacco: Never Assessed [facility] Utilities Answer Date Recorded In the past [...] any time in the past 12 m [facility], were you homeless or living in a prison (including now)? No 10/21/2024 Sex and Gender [...] Commonly known as: ROCALTROL cholecalciferol 1.25 MG (67130 UT) capsule Commonly known as: CHOLECALCIFEROL gabapentin 300 MG capsule Commonly known as: NEURONTIN magnesium oxide 400 MG tablet Commonly known as: MAG-OX Followup: Chris Martínez MD [address] [place] [address] [place] [address] Schedule an appointment as soon as possible for a visit in 1 week(s) Last BUN/ CR 107/6.1 requires followup Joanna Angeles MD [address] [facility] [address] [facility] [address] Schedule an appointment as soon as possible [...] a road trip with a friend to [place] to help them move. He noticed some [...] and brought to the emergency department in [place]. In ED at outside hospital patient was found to have BENJAMIN on CKD, low magnesium 1.2, elevated troponin of 321, no chest pain, they gave 2 g of IV mag and started bicarb drip due to profound acidosis. VBG pH 7.07, CO2 55, O2 45, HCO3 16. Pace Analyst at outside hospital said no urgent dialytic [...] the day urology PA placed a 16 Pakistani coud?? his Ma with clear yellow urine. Patient stated that he is unmarried does not have children his sister Earlene is the decision-maker in case he is not able to make any decisions, [phone]. [phone] Dr Angeles PCP Hospital Course Mr. Kirk is a 69 y.o. male with history of CKD stage IC with unknown baseline Cr, HTN, DM, sciatica, history of temprorary HD, gout, HLD, obesity, who presented with encephalopathyand sob in which patient was transferred from [facility] [place] for encephalopathy and hypoxia found to have [...] discharged with folllow up with his primary jailor in [facility] Discussed this plan with patient Discussed with [...] knows to have close followup with his jailor and urologist Physical Exam: Last Vitals Pulse:95,Resp:16,BP:(!) [...] understanding. [facility] to transport him to [facility]. O2 sat remains stable on room air, [...] sob in which patient was transferred from [facility] in [place] for encephalopathy and hypoxia found to have [...] discharged with folllow up with his primary jailor in [facility] Discussed this plan with patient Trial of [...] Ryan Kirk Date of : 1955 Room/Bed: [facility] 1024/[facility] 1024-01 Isolation: Droplet, Contact Preferred Language: Bruneian Patient History History of Present Illness Past [...] for Post-Acute Care (AM-PAC) Daily Activity Baseline [facility] Daily Activity Score: 24 Current [facility] Daily Activity Score: 18 Occupational Therapy Clinical [...] Kirk Demonstrates Active Involvement in Short and International Marketing Manager Goal Setting. Occupational Therapy recommending ongoing educational [...] no clue how I ended up in [place]! General Observations of Patient Pt received laying supine in bed, ma, 4L NC O2, cleared by RN Existing Precautions/Restrictions fall;isolation: contact Limitations/Impairments safety/cognitive Previous Level of Function/Home Environm Activity/Exercise/Self-Care Comment Pt reports living with roommate in an apt, sister lives next door, no stairs to enter. 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 Walk-in shower, comfort height toilet. 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 Lives in [facility] Home Use of Assistive/Adaptive Equipment Equipment Currently Used at Home none Pain Assessment Pre/Posttreatment Pain Comment no pain reported Cognition Cognitive Status endorsing delirium overnnight, dec insight into deficits and situation, reports anxiety attack overnnight Activity Tolerance / Endurance Activity Tolerance / Endurance good Coping Observed Emotional State cooperative Verbalized Emotional State acceptance [facility] Daily Activity Putting on and taking off Lower Body Clothing? 2 Bathing (including washing/rinsing/drying)? 2 Toileting (includes using toilet, bedpan, or urinal)? 3 Putting on and taking off upper body clothing? 4 Taking care of personal grooming such as brushing teeth? 3 Eating meals? 4 [facility] Daily Activity Score 18 Therapy Assessment/Plan (OT) [...] OT goal 1 Bathing Goal 1 (OT) [place] Level/Cues Needed (Bathing Goal 1, OT) independent Activity/Device (Bathing Goal 1, OT) bathing skills, all Time Frame (Bathing Goal 1, OT) short-term goal (STG) Dressing Goal 1 (OT) Activity/Device (Dressing Goal 1, OT) dressing skills, all Time Frame (Dressing Goal 1, OT) short-term goal (STG) [place]/Cues Needed (Dressing Goal 1, OT) independent Toileting Goal 1 (OT) Activity/Device (Toileting Goal 1, OT) toileting skills, all Time Frame (Toileting Goal 1, OT) short-term goal (STG) [place] Level/Cues Needed (Toileting Goal 1, OT) independent Signature * Lety Tavera RN - 10/20/2024 6:38 PM EDT - Pt arrived to 10s approx. 15:30. Pt A&O/forgetful at times, VSS - Pt has c/o pain at ma insertion site and Pt has c/o feeling anxious, does not want door to room closed/ doesn't want to be alone. Per pt he feels like he may have a panic attack. Made controller coal or ore Smiley RUIZ aware. 1x dose of tylenol [...] DM, sciatica, who presents as transfer from [place] for AMS, hypoxic resp failure and acidosis, with BENJAMIN on CKD. Plan: #BENJAMIN on CKD4 #HAGMA #HyperK #Hyperphosphatemia #Sepsis 2/2 RSV PNA Not sure what pt's baseline analysis evaluator typically runs, does have baseline kidney dz with prev BENJAMIN req HD (iso obstructive stone per pt). Current analysis evaluator is likely above his baseline. Home meds per [place] records: allopurinol, gabapentin 300mg daily, insulin, amlodipine 2.5mg daily, atorvastatin, temazepam PRN; prev prescriptions of Mag ox, calcitriol, sodium bicarb, and lokelma. UA Large protein, UPCR 2.96. Large blood, 50 rbc. PTH 755 - c/w sodium bicarb 1300mg BID and phos binder - hold calcitriol + gabapentin -- resume calcitriol when phos <6 - strict Is/Os - no urgent dialytic needs, analysis evaluator slowly improving. May warrant serologic workup given UA findings ofsubnephrotic protein + blood. Will try to reach out to pt's jailor Dr. Martínez ([place]) to obtain more history. Signed: Mara Cadet MD [phone] (office) * Licha Glez MD - 10/20/2024 [...] mentalstatus and shortness of breath. Admitted to [facility] ICU for management of acute hypoxic hypercarbic respiratory failure with severe high anion gap metabolic acidosis likely in setting of multifocal pneumonia and RSV infection. Plan: Neuro/Psych No active issues Patient is AOx3 Neurochecks every 4 hours Currently holding gabapentin to avoid oversedation Cardiovascular Non-CA troponin elevation Prolonged QT interval Patient is [...] reviewed the relevant labs, radiologic studies and moving consultant notes. Please refer to my note. * Licha Glez MD - 10/20/2024 2:25 PM EDT TRANSFER NOTE: Ryan Kirk is a 69 y.o. male with a PMHx of CKD stage IV unknown BCR, HTN, diabetes, sciatica, bladder stone, hx of temporary HD via nkechi cath, gout, HLD, BMI 33, presenting with altered mentalstatus and shortness of breath. Admitted to [facility] ICU for management of acute hypoxic [...] 9:06 AM EDT Patient was referred to [facility] for screening. * Hadley Jonhson MD - 10/20/2024 7:48 AM EDT Critical Care Progress Note Date of Consult: 10/20/2024 Patient's Primary Care Provider: No primary care provider on file. Physician Requesting Consult: CLC Reason for Consultation: resp distress and AMS Admit Date: 10/18/2024 10:27 AM HPI / Subjective 69 y o M w morbid obesity, DM, HTN, CKD, DLP presents on 10/18 as a transfer from [place] for management of encephalopathy and hypoxia. He initially presented to their hospital for 1-day hxof generalized weakness, lethargy and SOB after a road trip to [place]. Upon arrival to their ED was found [...] 0659 10/20/24 0700 - 10/21/24 0659 Shift 8435-0725 24 Hour Total 8517-0205 7270-5054 1098-7665 24 Hour Total INTAKE P.O. 240 240 [...] DM, sciatica, who presents as transfer from [place] for AMS, hypoxic resp failure and acidosis, with BENJAMIN on CKD. Plan: #BENJAMIN on CKD4 #HAGMA #HyperK #Hyperphosphatemia #Sepsis 2/2 RSV PNA Not sure what pt's baseline analysis evaluator typically runs, does have baseline kidney dz with prev BENJAMIN req HD (iso obstructive stone per pt). Current analysis evaluator is likely above his baseline. Home meds per [place] records: allopurinol, gabapentin 300mg daily, insulin, amlodipine [...] strict Is/Os - no urgent dialytic needs, analysis evaluator mildly improved. Making some urine. May warrant serologic workup given UA findings of subnephrotic protein + blood. Will try to reach out to pt's jailor Dr. Martínez ([place]) to obtain more history. Signed: Mara Cadet MD [phone] (office) * Barb Hoffmann MD - 10/19/2024 [...] had a very large bowel movements in [facility] has not had any so far. [...] mentalstatus and shortness of breath. Admitted to [facility] ICU for management of acute hypoxic [...] Cardiovascular No active issues Possible heart failure Non-CA troponin elevation Prolonged QT interval Patient is [...] follow. Barb Hoffmann MD PGY2 Available on [employer] 10/19/2024 8:55 AM Associated attestation - Hadley Johnson MD - 10/21/2024 2:50 PM EDT Attestation to the resident note with the same day of service: I have seen and examined the patient. I have reviewed the relevant labs, radiologic studies and moving consultant notes. Please refer to my note. [...] presents on 10/18 as a transfer from [place] for management of encephalopathy and hypoxia. He initially presented to their hospital for 1-day hxof generalized weakness, lethargy and SOB after a road trip to [place]. Upon arrival to their ED was found [...] 0659 10/19/24 0700 - 10/20/24 0659 Shift 4734-9875 24 Hour Total 1355-3482 5077-8181 7913-2623 24 Hour Total INTAKE I.V.(mL/kg) 645(6) 665(6.2) [...] 9 mm left perifissural lung nodule Hadley Jhonson MD 10/19/2024 8:34 AM * Marcelino Garcia MD - 10/18/2024 11:07 AM EDT Patient evaluated during evening rounds. 69-year-old male with past medical history of stage IV CKDand diagnosis of RSV leading to pneumonia at outside hospital transferred for ICU admission to [facility]. Patient has history of receiving temporary hemodialysis via Nkechi cath in the past. Patient was placed on BiPAP and was transferred to [facility]. Labs significant for acute on chronic [...] bladder stone, hx of temporary HD via nkehci cath, gout, HLD, BMI 33, presenting with altered mentalstatus and shortness of breath. Per patient he was taking a road trip with a friend to [place] to help them move. He noticed some [...] and brought to the emergency department in [place]. In ED at outside hospital patient was found to have BENJAMIN on CKD, low magnesium 1.2, elevated troponin of 321, no chest pain, they gave 2 g of IV mag and started bicarb drip due to profound acidosis. VBG pH 7.07, CO2 55, O2 45, HCO3 16. Pace Analyst at outside hospital said no urgent dialytic [...] the day urology KALE placed a 16 Pakistani coud?? his Ma with clear yellow urine. Patient stated that he is unmarried does not have children his sister Earlene is the decision-maker in case he is not able to make any decisions, [phone]. [phone] Dr Angeles PCP Objective Physical Exam Patient [...] injection 5,000 Units, 5,000 Units, Subcutaneous, Q8H [facility], Barb Hoffmann MD, 5,000 Units at 10/18/24 1442 [START ON 10/19/2024] insulin glargine (LANtus/SEMGLEE) 100 units/mL injection 40 Units, 40 Units, Subcutaneous, Nightly, Barb Hoffmann MD insulin lispro (HumaLOG/ADMELOG) 100 units/mL injection 1-11 Units, 1-11 Units, Subcutaneous, Q4H [facility], Barb Hoffmann MD, 11 Units at 10/18/24 [...] mentalstatus and shortness of breath. Admitted to [facility] ICU for management of acute hypoxic hypercarbic respiratory failure with severe high anion gap metabolic acidosis likely in setting of multifocal pneumonia and RSV infection. Problem List Principal Problem: Acute hypoxic respiratory failure (HCC) (POA: Yes) Resolved Problems: Plan Neurological -No active issues Patient is AOx3 Neurochecks every 4 hours Cardiology -No active issues Possible heart failure Non-CA troponin elevation Prolonged QT interval Patient is [...] reviewed the relevant labs, radiologic studies and moving consultant notes. Please refer to my note. [...] presents on 10/18 as a transfer from [place] for management of encephalopathy and hypoxia. He initially presented to their hospital for 1-day hxof generalized weakness, lethargy and SOB after a road trip to [place]. Upon arrival to their ED was found [...] DM, sciatica, who presents as transfer from [place] for AMS, hypoxic resp failure and acidosis, with BENJAMIN on CKD. Pt seen at bedside - on BIPAP. Is awake and alert. He notes requiring HD temporarily a few years ago iso large kidney stone. Has since then followed w/jailor Dr. Jaramillo and a urologist. Denies further [...] by mouth daily. cholecalciferol (CHOLECALCIFEROL) 1.25 MG (03916 UT) capsule Take 1 capsule (50,000 Units total) byiduth once a week. gabapentin (NEURONTIN) 300 MG [...] BID heparin (porcine), 5,000 Units, Subcutaneous, Q8H [facility] [START ON 10/19/2024] insulin glargine, 40 Units, [...] DM, sciatica, who presents as transfer from [place] for AMS, hypoxic resp failure and acidosis, with BENJAMIN on CKD. Plan: #BENJAMIN on CKD4 #HAGMA #HyperK #Hyperphosphatemia #Sepsis 2/2 RSV PNA Not sure what pt's baseline analysis evaluator typically runs, does have baseline kidney dz with prev BENJAMIN req HD (iso obstructive stone per pt). Current analysis evaluator is likely above his baseline. Home meds per [place] records: allopurinol, gabapentin 300mg daily, insulin, amlodipine [...] sx of obstructive stone but UA at [place] was notable for protein + blood - would send a UA here as well, with spot urine protein/analysis evaluator ratio - no urgent dialytic needs Signed: Mara Cadet MD [phone] (office) documented in this encounter Miscellaneous Notes * Plan of Care - Nicole Williamson RN - 10/22/2024 10:34 AM EDT Case Management Care Plan Note Final Discharge Plan: 01 - home or self-care Summary: Transition to home in [facility] with MD follow up as directed. YONG has arranged [facility] transport back to [facility] for 11:30 AM Patienbt aware and will contact his sister. Independent on room air- No needs identified or requested. Nurse Pisano updated. IMM 10/21. Patient/Patient Business Resiliency Manager Provided With Choices Of: they had no [...] PM EDT Patient was transferred her from [facility]. He lives in [facility]. Per Dr. Castrejon he no longer needs oxygen and he may be ready for d'c home tomorrow or the next day. Met with patient re: d'c plan. He is independent at home, lives next door to his sister. He does not need or want home care services, but he will need a ride home. Will leave a message for weekend case liner. Also provided him with the IMM. He [...] leave tomorrow. * Rehab Therapy Consults - Qeu Lozano, PT - 10/20/2024 4:40 PM EDT Images from the original note were not included. Patient Information Today's Date: 10/20/2024 Patient Name: Ryan Kirk Date of : 1955 Room/Bed: [place] [address]/[facility] 1024-01 Isolation: Droplet, Contact Preferred Language: Bruneian Patient History History of Present Illness (P) ADMITTED ON 10/18/24 RYAN KIRK 69 y o M w morbid obesity, DM, HTN, CKD, DLP presents on 10/18 as a transfer from [place] for management of encephalopathy and hypoxia. He initially presented to their hospital for 1-day hx of generalized weakness, lethargy and SOB after a road trip to [place]. 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 HE LIVES IN [place], [place] Pain Additional Documentation Pain Scale: Numbers [...] Level Achieved Ambulation Ambulation Distance (Feet) 30 [facility] Basic Mobility Turning from your back to [...] Climbing 3-5 steps with a railing? 3 [facility] Basic Mobility Score 20 Therapy Assessment/Plan (PT) Patient/Family Therapy Goals Statement (PT) RETURN HOME Functional Level at Time of Evaluation (PT) (S)<>CG AX1 PT Diagnosis (PT) ADMITTED ON 10/18/24 RYAN REAGAN 69 y o M w morbid obesity, DM, HTN, CKD, DLP presents on 10/18 as a transfer from [place] for management of encephalopathy and hypoxia. He initially presented to their hospital for 1-day hx of generalized weakness, lethargy and SOB after a road trip to [place]. Rehab Potential (PT) good Criteria for Skilled [...] PT goal 1 Transfer Goal 1 (PT) [place] Level/Cues Needed (Transfer Goal 1, PT) independent Time Frame (Transfer Goal 1, PT) short-term goal (STG) Activity/Assistive Device (Transfer Goal 1, PT) transfers, all Gait Training Goal 1 (PT) Time Frame (Gait Training Goal 1, PT) short-term goal (STG) [place] Level (Gait Training Goal 1, PT) independent Activity/Assistive Device (Gait Training Goal 1, PT) assistive device use;gait (walking locomotion) Distance (Gait Training Goal 1, PT) 50 Signature * Plan of Care - Haylee Burgos RN - 10/20/2024 3:17 PM EDT 5895-2982 Assumed care. Pt is alert is alert [...] Fall-Related Injury Outcome: Progressing Patient arrived from [place], a&o x4, follows commands, no hallucinations or [...] - 11.0 Thou/uL 10/22/2024 8:07 AM EDT [facility] Platelet Count 243 150 - 450 Thou/uL 10/22/2024 8:07 AM EDT [facility] Hemoglobin 8.4(L) 13.0 - 17.7 g/dL 10/22/2024 8:07 AM EDT [facility] Hematocrit 26.7(L) 39.0 - 54.0 % 10/22/2024 8:07 AM EDT [facility] Red Blood Cell Count 2.87(L) 4.50 - 6.20 Mil/uL 10/22/2024 8:07 AM EDT [facility] MCV 93 80 - 100 fL 10/22/2024 8:07 AM EDT [facility] MCH 29.3 27.0 - 31.0 pg 10/22/2024 8:07 AM EDT [facility] MCHC 31.5 30.0 - 36.0 g/dL 10/22/2024 8:07 AM EDT [facility] RDW 14.6(H) 11.5 - 14.5 % 10/22/2024 8:07 AM EDT [facility] MPV 11.0 7.5 - 12.5 fL 10/22/2024 8:07 AM EDT [facility] nRBC 0.5(H) 0.0 - 0.1 /100 WBC 10/22/2024 8:07 AM EDT [facility] nRBC, Absolute 0.06(H) 0.00 - 0.02 Thou/uL 10/22/2024 8:07 AM EDT [facility] Bands Man 4 % 10/22/2024 9:31 AM EDT [facility] Neutrophils Man 86 % 9:31 AM EDT [facility] Lymphocytes Man 7 % 9:31 AM EDT [facility] Monocytes Man 3 % 10/22/2024 9:31 AM EDT [facility] Abs Neutrophils Count (ANC) 10.6(H) 2.0 - 7.5 Thou/uL 10/22/2024 9:31 AM EDT [facility] Abs Lymphocytes Man 0.8(L) 1.5 - 4.5 Thou/uL 10/22/2024 9:31 AM EDT [facility] Abs Monocytes Man 0.4 0.2 - 1.5 Thou/uL 10/22/2024 9:31 AM EDT [facility] Macrocytes Occasional 10/22/2024 9:31 AM EDT [facility] Polychromasia Occasional 10/22/2024 9:31 AM EDT [facility] Hypochromia Occasional 10/22/2024 9:31 AM EDT [facility] Spherocytes Occasional 10/22/2024 9:31 AM EDT [facility] Blood Blood specimen / Unknown 10/22/2024 7:49 AM EDT 10/22/2024 8:00 AM EDT Christal Castrejon MD LAB BLOOD ORDERABLES [facility] [address] [place] [address], [place] * (ABNORMAL) Basic Metabolic Panel (Early AM) (10/22/2024 7:49 AM EDT) Glucose 145(H) 74 - 106 mg/dL 10/22/2024 8:37 AM EDT [facility] Comment:Fasting: <100 mg/dL, Non-Fasting: <200 mg/dL (ADA 2004) Blood Urea Nitrogen (BUN) 107(H) 9 - 23 mg/dL 10/22/2024 8:37 AM EDT [facility] Creatinine 6.1(H) 0.7 - 1.3 mg/dL 10/22/2024 8:37 AM EDT [facility] eGFR 9(L) >59 10/22/2024 8:37 AM EDT [facility] Comment:CKD-EPI (2020) in mL /min/1.73 sq meters. Sodium 146(H) 136 - 145 mmol/L 10/22/2024 8:37 AM EDT [facility] Potassium 3.8 3.4 - 4.5 mmol/L 10/22/2024 8:37 AM EDT [facility] Chloride 107 98 - 107 mmol/L 10/22/2024 8:37 AM EDT [facility] CO2 23 20 - 31 mmol/L 10/22/2024 8:37 AM EDT [facility] Anion Gap 16(H) 5 - 15 10/22/2024 8:37 AM EDT [facility] Calcium 8.2(L) 8.7 - 10.5 mg/dL 10/22/2024 8:37 AM EDT [facility] BUN/Creatinine Ratio 18 10.0 - 25.0 Ratio 10/22/2024 8:37 AM EDT [facility] Blood Blood specimen / Unknown 10/22/2024 7:49 AM EDT 10/22/2024 8:00 AM EDT Christal Castrejon MD LAB BLOOD ORDERABLES [facility] [address] [place] [address], [place] * (ABNORMAL) POCT Glucose, Fingerstick (10/22/2024 7:42 AM EDT) POC Glucose 150(H) 65 - 99 mg/dL 10/22/2024 7:48 AM EDT Blood specimen / Unknown 10/22/2024 7:42 AM EDT 10/22/2024 7:48 AM EDT Christal Castrejon MD POINT OF CARE TEST O INDY Performing Organization Address [facility] Number [facility] LAB See Below * (ABNORMAL) POCT Glucose, Fingerstick (10/21/2024 8:32 PM EDT) POC Glucose 267(H) 65 - 99 mg/dL 10/21/2024 8:39 PM EDT Comment:Notified RN Blood specimen / Unknown 10/21/2024 8:32 PM EDT 10/21/2024 8:39 PM EDT Christal Castrejon MD POINT OF CARE TEST O INDY Performing Organization Address [facility] LAB See Below * (ABNORMAL) POCT Glucose, Fingerstick (10/21/2024 4:38 PM EDT) POC Glucose 305(H) 65 - 99 mg/dL 10/21/2024 4:46 PM EDT Comment:Notified RN Blood specimen / Unknown 10/21/2024 4:38 PM EDT 10/21/2024 4:46 PM EDT Christal Castrejon MD POINT OF CARE TEST O INDY Performing Organization Address [facility] LAB See Below * (ABNORMAL) POCT Glucose, Fingerstick (10/21/2024 11:45 AM EDT) POC Glucose 269(H) 65 - 99 mg/dL 10/21/2024 11:55 AM EDT Blood specimen / Unknown 10/21/2024 11:45 AM EDT 10/21/2024 11:55 AM EDT Christal Castrejon MD POINT OF CARE TEST O RDERABLES Performing Organization Address [facility] LAB See Below * (ABNORMAL) POCT Glucose, Fingerstick (10/21/2024 8:07 AM EDT) POC Glucose 186(H) 65 - 99 mg/dL 10/21/2024 8:16 AM EDT Comment:Notified RN Blood specimen / Unknown 10/21/2024 8:07 AM EDT 10/21/2024 8:16 AM EDT Christal Castrejon MD POINT OF CARE TEST O RDERAAUREA Performing Organization Address [facility] LAB See Below * (ABNORMAL) POCT Glucose, Fingerstick (10/20/2024 8:09 PM EDT) POC Glucose 179(H) 65 - 99 mg/dL 10/20/2024 8:20 PM EDT Comment:Notified RN Blood specimen / Unknown 10/20/2024 8:09 PM EDT 10/20/2024 8:20 PM EDT Christal Castrejon MD POINT OF CARE TEST O RDRACHEL Performing Organization Address [facility] LAB See Below * (ABNORMAL) POCT Glucose, Fingerstick (10/20/2024 4:31 PM EDT) POC Glucose 142(H) 65 - 99 mg/dL 10/20/2024 4:39 PM EDT Comment:Notified RN Blood specimen / Unknown 10/20/2024 4:31 PM EDT 10/20/2024 4:39 PM EDT Adi Bejarano MD POINT OF CARE TEST O RDERABLES Performing Organization Address [facility]/ZIP Co de Phone Number HOSPITAL LAB See [...] is normal. The quantitative EF by 2D Stalh biplane is 61%. No wall motion abnormalities [...] CARE TEST O INDY Performing Organization Address [facility]/ZIP Co de Phone Number [facility] LAB See Below * (ABNORMAL) POCT Glucose, Fingerstick (10/20/2024 8:23 AM EDT) POC Glucose 144(H) 65 - 99 mg/dL 10/20/2024 8:48 AM EDT Blood specimen / Unknown 10/20/2024 8:23 AM EDT 10/20/2024 8:48 AM EDT Narrative Authorizing Provider Result Herbert Johnson MD POINT OF CARE TEST O INDY Performing Organization Address [facility] Phone Number [facility] LAB See Below * (ABNORMAL) Comprehensive Metabolic Panel (10/20/2024 5:31 AM EDT) Glucose 141(H) 74 - 106 mg/dL 10/20/2024 6:13 AM EDT [facility] Comment:Fasting: <100 mg/dL, Non-Fasting: <200 mg/dL (ADA 2005) Blood Urea Nitrogen (BUN) 100(H) 9 - 23 mg/dL 10/20/2024 6:13 AM EDT [facility] Creatinine 6.6(H) 0.7 - 1.3 mg/dL 10/20/2024 6:13 AM EDT [facility] eGFR 8(L) >59 10/20/2024 6:13 AM EDT [facility] Comment:CKD-EPI (2020) in mL /min/1.73 sq meters. Sodium 143 136 - 145 mmol/L 10/20/2024 6:13 AM EDT [facility] Potassium 4.0 3.4 - 4.5 mmol/L 10/20/2024 6:13 AM EDT [facility] Chloride 108(H) 98 - 107 mmol/L 10/20/2024 6:13 AM EDT [facility] CO2 22 20 - 31 mmol/L 10/20/2024 6:13 AM EDT [facility] Calcium 7.4(L) 8.7 - 10.5 mg/dL 10/20/2024 6:13 AM EDT [facility] Alkaline Phosphatase 150(H) 45 - 128 U/L 10/20/2024 6:13 AM EDT [facility] Aspartate Aminotrans (AST) 37(H) <34 U/L 10/20/2024 6:13 AM EDT [facility] Alanine Aminotrans (ALT) 23 10 - 49 U/L 10/20/2024 6:13 AM EDT [facility] Bilirubin, Total 0.2(L) 0.3 - 1.2 mg/dL 10/20/2024 6:13 AM EDT [facility] Protein, Total 6.8 5.7 - 8.2 g/dL 10/20/2024 6:13 AM EDT [facility] Albumin 3.5 3.4 - 4.8 g/dL 10/20/2024 6:13 AM EDT [facility] BUN/Creatinine Ratio 15 10.0 - 25.0 Ratio 10/20/2024 6:13 AM EDT [facility] Globulin 3.3 1.5 - 3.9 g/dL 10/20/2024 6:13 AM EDT [facility] Albumin/Globulin Ratio 1.0(L) 1.5 - 2.5 Ratio 10/20/2024 6:13 AM EDT [facility] Anion Gap 13 5 - 15 10/20/2024 6:13 AM EDT [facility] Blood Blood specimen / Unknown 10/20/2024 5:31 AM EDT 10/20/2024 5:37 AM EDT Hadley Johnson MD LAB BLOOD ORDERABLES [facility] [address] [place] [address], * MAGNESIUM (10/20/2024 5:31 AM EDT) Magnesium 2.1 1.6 - 2.6 mg/dL 10/20/2024 6:13 AM EDT [facility] Blood Blood specimen / Unknown 10/20/2024 5:31 AM EDT 10/20/2024 5:37 AM EDT Hadley Johnson MD LAB BLOOD ORDERABLES [facility] [address] [place] [address], [place] * (ABNORMAL) Complete Blood Count, with Differential (10/20/2024 5:31 AM EDT) White Blood Cell Count 12.5(H) 4.0 - 11.0 Thou/uL 10/20/2024 5:40 AM EDT [facility] Platelet Count 210 150 - 450 Thou/uL 10/20/2024 5:40 AM EDT [facility] Hemoglobin 8.0(L) 13.0 - 17.7 g/dL 10/20/2024 5:40 AM EDT [facility] Hematocrit 24.5(L) 39.0 - 54.0 % 10/20/2024 5:40 AM EDT [facility] Red Blood Cell Count 2.64(L) 4.50 - 6.20 Mil/uL 10/20/2024 5:40 AM EDT [facility] MCV 93 80 - 100 fL 10/20/2024 5:40 AM EDT [facility] MCH 30.3 27.0 - 31.0 pg 10/20/2024 5:40 AM EDT [facility] MCHC 32.7 30.0 - 36.0 g/dL 10/20/2024 5:40 AM EDT [facility] RDW 14.8(H) 11.5 - 14.5 % 10/20/2024 5:40 AM EDT [facility] MPV 10.8 7.5 - 12.5 fL 10/20/2024 5:40 AM EDT [facility] nRBC 0.2(H) 0.0 - 0.1 /100 WBC 10/20/2024 5:40 AM EDT [facility] nRBC, Absolute 0.03(H) 0.00 - 0.02 Thou/uL 10/20/2024 5:40 AM EDT [facility] Neutrophils Auto 83.1 % 10/21/19 5:40 AM EDT [facility] Immature Granulocytes 2.1 % 10/20/2024 5:40 AM EDT [facility] Lymphocytes Auto 6.6 % 10/21/19 5:40 AM EDT [facility] Monocytes Auto 8.0 % 10/20/2024 5:40 AM EDT [facility] Eosinophils Auto 0.0 % 10/21/19 5:40 AM EDT [facility] Basophils Auto 0.2 % 10/20/2024 5:40 AM EDT [facility] Abs Neutrophils Auto 10.43(H) 2.00 - 7.50 Thou/uL 10/20/2024 5:40 AM EDT [facility] Abs Immature Granulocytes 0.26(H) 0.00 - 0.10 Thou/uL 10/20/2024 5:40 AM EDT [facility] Abs Lymphocytes Auto 0.83(L) 1.50 - 4.50 Thou/uL 10/20/2024 5:40 AM EDT [facility] Abs Monocytes Auto 1.00 0.20 - 1.50 Thou/uL 10/20/2024 5:40 AM EDT [facility] Abs Eosinophils Auto 0.00 0.00 - 0.70 Thou/uL 10/20/2024 5:40 AM EDT [facility] Abs Basophils Auto 0.02 0.00 - 0.20 Thou/uL 10/20/2024 5:40 AM EDT [facility] Blood Blood specimen / Unknown 10/20/2024 5:31 AM EDT 10/20/2024 5:37 AM EDT Hadley Johnson MD LAB BLOOD ORDERABLES Performing Organization Address [facility]/ZIP Co de Phone Number [address] * (ABNORMAL) PHOSPHORUS (10/20/2024 5:31 AM EDT) Phosphorus 6.1(H) 2.4 - 5.1 mg/dL 10/20/2024 6:13 AM EDT [facility] Blood Blood specimen / Unknown 10/20/2024 5:31 AM EDT 10/20/2024 5:37 AM EDT Hadley Johnson MD LAB BLOOD ORDERABLES Performing Organization Address [facility]/ZIP Co de Phone Number [address] * (ABNORMAL) POCT Glucose, Fingerstick (10/20/2024 [...] CARE TEST O RDRACHEL Performing Organization Address City/[facility]/ZIP Co de Phone Number HOSPITAL LAB See Below * (ABNORMAL) POCT Glucose, Fingerstick (10/19/2024 8:26 PM EDT) POC Glucose 200(H) 65 - 99 mg/dL 10/19/2024 8:33 PM EDT Comment:Notified RN Blood specimen / Unknown 10/19/2024 8:26 PM EDT 10/19/2024 8:33 PM EDT Hadley Johnson MD POINT OF CARE TEST O INDY Performing Organization Address [facility] Co de Phone Number HOSPITAL LAB See Below * (ABNORMAL) POCT Glucose, Fingerstick (10/19/2024 4:11 PM EDT) POC Glucose 209(H) 65 - 99 mg/dL 10/19/2024 4:18 PM EDT Comment:Notified RN Blood specimen / Unknown 10/19/2024 4:11 PM EDT 10/19/2024 4:18 PM EDT Hadley Johnson MD POINT OF CARE TEST O RDERAAUREA Performing Organization Address [facility] Co de Phone Number HOSPITAL LAB See Below * (ABNORMAL) POCT Blood Gas, Arterial (10/19/2024 3:46 PM EDT) Pathologist [facility] Sample Type Arterial 10/19/2024 3:48 PM EDT [facility] Lab pH, Arterial 7.36 7.35 - 7.45 10/19/2024 3:48 PM EDT [facility] Lab pCO2, Arterial 36 35 - 45 mmHG 10/19/2024 3:48 PM EDT [facility] pO2, Arterial 48(LL) 80 - 100 mmHG 10/19/2024 3:48 PM EDT [facility] HCO3 20.0(L) 22 - 26 mmol/L 10/19/2024 3:48 PM EDT [facility] O2 Saturation, Arterial 79.0(L) 95 - 100 % 10/19/2024 3:48 PM EDT [facility] Base Deficit, Arterial 4.5 mmol/L 10/19/2024 3:48 PM EDT [facility] Comment:REFERENCE RANGE: NEG ATIVE 2 TO POSITIVE 2 Liter Flow, I-STAT 3.0 10/19/2024 3:48 PM EDT [facility] Lab Comments POC VENOUS 10/19/2024 3:48 PM EDT [facility] 10/19/2024 3:46 PM EDT 10/19/2024 3:48 PM EDT Hadley Johnson MD POCT ORDERABLES - DE VICE [facility],PULMONARY LAB [address] [place] [address], [facility],Pulmonary Lab [address], [place] * (ABNORMAL) POCT Glucose, Fingerstick (10/19/2024 [...] AM EDT) Ventricular rate 94 BPM EKG [facility] Atrial rate 94 BPM EKG [facility] P-R interval 138 ms EKG [facility] QRS duration 88 ms EKG [facility] Q-T interval 386 ms EKG [facility] QTC calculation (Bazett) 483 ms EKG [facility] P axis 60 degrees EKG [facility] R axis 19 degrees EKG [facility] T axis 55 degrees EKG [facility] 10/19/2024 9:20 AM EDT Narrative EKG [facility] - 10/19/2024 9:41 AM EDT Normal sinus rhythm Prolonged QT Abnormal ECG When compared with ECG of 18-Oct-2024 11:36, No significant change was found Confirmed by MD Simmons [facility]enu ([id number]) on 10/19/2024 9:41:44 AM Procedure Note Roland Simmons MD - 10/19/2024 Normal sinus rhythm Prolonged QT Abnormal ECG When compared with ECG of 18-Oct-2024 11:36, No significant change was found Confirmed by MD Troy, [facility] ([id number]) on 10/19/2024 9:41:44 AM Hadley Johnson MD ECG ORDERABLES EKG [facility] * (ABNORMAL) POCT Blood Gas, Arterial (10/19/2024 8:53 AM EDT) Sample Type Arterial 10/19/2024 8:55 AM EDT [facility] pH, Arterial 7.31(L) 7.35 - 7.45 10/19/2024 8:55 AM EDT [facility] Lab pCO2, Arterial 37 35 - 45 mmHG 10/19/2024 8:55 AM EDT [facility] Lab pO2, Arterial 46(LL) 80 - 100 mmHG 10/19/2024 8:55 AM EDT [facility] HCO3 19.0(L) 22 - 26 mmol/L 10/19/2024 8:55 AM EDT [facility] O2 Saturation, Arterial 71.0(L) 95 - 100 % 10/19/2024 8:55 AM EDT [facility] Base Deficit, Arterial 7.0 mmol/L 10/19/2024 8:55 AM EDT [facility] Comment:REFERENCE RANGE: NEG ATIVE 2 TO POSITIVE 2 Liter Flow, I-STAT 4.0 10/19/2024 8:55 AM EDT [facility] 10/19/2024 8:53 AM EDT 10/19/2024 8:55 AM EDT Hadley Johnson MD POCT ORDERABLES - [place] VICE [facility],PULMONARY LAB [address] [place] [address], [facility],Pulmonary Lab [address] [place], [place] * (ABNORMAL) POCT Glucose, Fingerstick (10/19/2024 [...] - 106 mg/dL 10/19/2024 4:55 AM EDT [facility] Comment:Fasting: <100 mg/dL, Non-Fasting: <200 mg/dL (ADA 2005) Blood Urea Nitrogen (BUN) 91(H) 9 - 23 mg/dL 10/19/2024 4:55 AM EDT [facility] Creatinine 6.8(H) 0.7 - 1.3 mg/dL 10/19/2024 4:55 AM EDT [facility] eGFR 8(L) >59 10/19/2024 4:55 AM EDT [facility] Comment:CKD-EPI (2020) in mL /min/1.73 sq meters. Sodium 141 136 - 145 mmol/L 10/19/2024 4:55 AM EDT [facility] Potassium 4.2 3.4 - 4.5 mmol/L 10/19/2024 4:55 AM EDT [facility] Chloride 109(H) 98 - 107 mmol/L 10/19/2024 4:55 AM EDT [facility] CO2 18(L) 20 - 31 mmol/L 10/19/2024 4:55 AM EDT [facility] Calcium 7.6(L) 8.7 - 10.5 mg/dL 10/19/2024 4:55 AM EDT [facility] Alkaline Phosphatase 142(H) 45 - 128 U/L 10/19/2024 4:55 AM EDT [facility] Aspartate Aminotrans (AST) 35(H) <34 U/L 10/19/2024 4:55 AM EDT [facility] Alanine Aminotrans (ALT) 22 10 - 49 U/L 10/19/2024 4:55 AM EDT [facility] Bilirubin, Total 0.2(L) 0.3 - 1.2 mg/dL 10/19/2024 4:55 AM EDT [facility] Protein, Total 6.7 5.7 - 8.2 g/dL 10/19/2024 4:55 AM EDT [facility] Albumin 3.4 3.4 - 4.8 g/dL 10/19/2024 4:55 AM EDT [facility] BUN/Creatinine Ratio 13 10.0 - 25.0 Ratio 10/19/2024 4:55 AM EDT [facility] Globulin 3.3 1.5 - 3.9 g/dL 10/19/2024 4:55 AM EDT [facility] Albumin/Globulin Ratio 1.0(L) 1.5 - 2.5 Ratio 10/19/2024 4:55 AM EDT [facility] Anion Gap 14 5 - 15 10/19/2024 4:55 AM EDT [facility] Blood Blood specimen / Unknown 10/19/2024 4:16 AM EDT 10/19/2024 4:27 AM EDT Hadley Johnson MD LAB BLOOD ORDERABLES [facility] [address] [place] [address], * MAGNESIUM (10/19/2024 4:16 AM EDT) Magnesium 1.9 1.6 - 2.6 mg/dL 10/19/2024 4:55 AM EDT [facility] Blood Blood specimen / Unknown 10/19/2024 4:16 AM EDT 10/19/2024 4:27 AM EDT Hadley Johnson MD LAB BLOOD ORDERABLES [facility] [address] [place] [address], [place] * (ABNORMAL) Complete Blood Count, with Differential (10/19/2024 4:16 AM EDT) White Blood Cell Count 10.7 4.0 - 11.0 Thou/uL 10/19/2024 4:34 AM EDT [facility] Platelet Count 192 150 - 450 Thou/uL 10/19/2024 4:34 AM EDT [facility] Hemoglobin 7.6(L) 13.0 - 17.7 g/dL 10/19/2024 4:34 AM EDT [facility] Hematocrit 24.1(L) 39.0 - 54.0 % 10/19/2024 4:34 AM EDT [facility] Red Blood Cell Count 2.55(L) 4.50 - 6.20 Mil/uL 10/19/2024 4:34 AM EDT [facility] MCV 95 80 - 100 fL 10/19/2024 4:34 AM EDT [facility] MCH 29.8 27.0 - 31.0 pg 10/19/2024 4:34 AM EDT [facility] MCHC 31.5 30.0 - 36.0 g/dL 10/19/2024 4:34 AM EDT [facility] RDW 14.8(H) 11.5 - 14.5 % 10/19/2024 4:34 AM EDT [facility] MPV 10.7 7.5 - 12.5 fL 10/19/2024 4:34 AM EDT [facility] nRBC 0.3(H) 0.0 - 0.1 /100 WBC 10/19/2024 4:34 AM EDT [facility] nRBC, Absolute 0.03(H) 0.00 - 0.02 Thou/uL 10/19/2024 4:34 AM EDT [facility] Neutrophils Auto 86.8 % 10/20/19 4:34 AM EDT [facility] Immature Granulocytes 1.0 % 10/19/2024 4:34 AM EDT [facility] Lymphocytes Auto 6.1 % 10/20/19 4:34 AM EDT [facility] Monocytes Auto 5.9 % 10/19/2024 4:34 AM EDT [facility] Eosinophils Auto 0.0 % 10/20/19 4:34 AM EDT [facility] Basophils Auto 0.2 % 10/19/2024 4:34 AM EDT [facility] Abs Neutrophils Auto 9.24(H) 2.00 - 7.50 Thou/uL 10/19/2024 4:34 AM EDT [facility] Abs Immature Granulocytes 0.11(H) 0.00 - 0.10 Thou/uL 10/19/2024 4:34 AM EDT [facility] Abs Lymphocytes Auto 0.65(L) 1.50 - 4.50 Thou/uL 10/19/2024 4:34 AM EDT [facility] Abs Monocytes Auto 0.63 0.20 - 1.50 Thou/uL 10/19/2024 4:34 AM EDT [facility] Abs Eosinophils Auto 0.00 0.00 - 0.70 Thou/uL 10/19/2024 4:34 AM EDT [facility] Abs Basophils Auto 0.02 0.00 - 0.20 Thou/uL 10/19/2024 4:34 AM EDT [facility] Blood Blood specimen / Unknown 10/19/2024 4:16 AM EDT 10/19/2024 4:27 AM EDT Hadley Johnson MD LAB BLOOD ORDERABLES Performing Organization Address [facility] Co de Phone Number [address] * (ABNORMAL) PHOSPHORUS (10/19/2024 4:16 AM EDT) Phosphorus 7.1(H) 2.4 - 5.1 mg/dL 10/19/2024 4:55 AM EDT [facility] Blood Blood specimen / Unknown 10/19/2024 4:16 AM EDT 10/19/2024 4:27 AM EDT Hadley Johnson MD LAB BLOOD ORDERABLES Performing Organization Address [facility] de Phone Number [address] * (ABNORMAL) POCT Glucose, Fingerstick (10/19/2024 4:11 AM EDT) POC Glucose 179(H) 65 - 99 mg/dL 10/19/2024 4:18 AM EDT Comment:Notified RN Blood specimen / Unknown 10/19/2024 4:11 AM EDT 10/19/2024 4:18 AM EDT Hadley Johnson MD POINT OF CARE TEST O RDERABLES Performing Organization Address [facility] Co de Phone Number HOSPITAL LAB See Below * (ABNORMAL) POCT Glucose, Fingerstick (10/18/2024 11:37 PM EDT) POC Glucose 169(H) 65 - 99 mg/dL 10/18/2024 11:44 PM EDT Comment:Notified RN Blood specimen / Unknown 10/18/2024 11:37 PM EDT 10/18/2024 11:44 PM EDT Hadley Johnson MD POINT OF CARE TEST O RDERABLES Performing Organization Address City/[facility]/ZIP Co de Phone Number HOSPITAL LAB See Below * (ABNORMAL) POCT, Ionized Calcium (10/18/2024 11:02 PM EDT) POC Ionized Calcium 4.30(L) 4.60 - 5.32 mg/dL 10/18/2024 11:06 PM EDT [facility],Pulmo nary Lab Smear Cmt LEFT RADIAL POSITIVE COLLATERAL No comment 10/18/2024 11:06 PM EDT [facility] Lab 10/18/2024 11:0 2 PM EDT 10/18/2024 11:05 PM EDT Hadley Johnson MD POCT ORDERABLES - DE VICE [facility],PULMONARY LAB [address] [place] [address], [facility],Pulmonary Lab [address] [place], [place] * POCT, Lactate (10/18/2024 11:02 PM EDT) [facility] Lactate, POC 0.6 0.4 - 0.8 mmol/L 10/18/2024 11:06 PM EDT [facility]ul[facility] Lab Comment LEFT RADIAL POSITIVE COLLATERAL No comment 10/18/2024 11:06 PM EDT [facility] Lab 10/18/2024 11:0 2 PM EDT 10/18/2024 11:05 PM EDT Hadley Johnson MD POCT ORDERABLES - [place] VICE [facility],PULMONARY LAB [address] [place] [address], [facility],Pulmonary Lab [address] [place], [place] * POCT, Sodium (10/18/2024 11:02 PM EDT) Pathologist [facility] Sodium 138 136 - 145 mmol/L 10/18/2024 11:06 PM EDT [facility] Lab Smear Comm LEFT RADIAL POSITIVE COLLATERAL No comment 10/18/2024 11:06 PM EDT [facility] Lab 10/18/2024 11:0 2 PM EDT 10/18/2024 11:05 PM EDT Hadley Johnson MD POCT ORDERABLES - [place] VICE [facility],PULMONARY LAB [address] [place] [address], [facility],Pulmonary Lab [address] [facility], [place] * POCT, Potassium (10/18/2024 11:02 PM EDT) Potassium 4.3 3.5 - 5.1 mmol/L 10/18/2024 11:06 PM EDT [facility] Lab Comment LEFT RADIAL POSITIVE COLLATERAL No comment 10/18/2024 11:06 PM EDT [facility] Lab 10/18/2024 11:0 2 PM EDT 10/18/2024 11:05 PM EDT Hadley Johnson MD POCT ORDERABLES - [place] VICE [facility],PULMONARY LAB [address] [place] [address], [facility],Pulmonary Lab [address] [facility], [place] * (ABNORMAL) POCT, Hematocrit (10/18/2024 11:02 PM EDT) Hematocrit 25.0(L) 40 - 50 % 10/18/2024 11:06 PM EDT [facility] Lab Comment LEFT RADIAL POSITIVE COLLATERAL 10/18/2024 11:06 PM EDT [facility] Lab 10/18/2024 11:0 2 PM EDT 10/18/2024 11:05 PM EDT Hadley Johnson MD POCT ORDERABLES - [place] VICE [facility],PULMONARY LAB [address] [place] [address], [facility],Pulmonary Lab [address], [place] * (ABNORMAL) POCT, Glucose (10/18/2024 11:02 PM EDT) Glucose POC 206(H) 70 - 108 mg/dL 10/18/2024 11:06 PM EDT [facility],Pulmo [facility]ary Lab Comment LEFT RADIAL POSITIVE COLLATERAL No comment 10/18/2024 11:06 PM EDT [facility] Lab 10/18/2024 11:0 2 PM EDT 10/18/2024 11:05 PM EDT Hadley Johnson MD POCT ORDERABLES - [place] VICE [facility],PULMONARY LAB [address] [place] [address], [facility],Pulmonary Lab [address], [place] * POCT, Cooximetry (10/18/2024 11:02 PM EDT) Carboxyhemoglobin 0.0 % 025 11:06 PM EDT [facility] Methemoglobin 0.7 % 10/18/2024 11:06 PM EDT [facility] Oxyhemoglobin, POC 94.8000 % 2024 11:06 PM EDT [facility] Reduced Hemoglobin 4.5 % 2024 11:06 PM EDT [facility] Hemoglobin, POC 8.4 11:06 PM EDT [facility] POC Sample Type Arterial 11:06 PM EDT [facility] Comment LEFT RADIAL POSITIVE COLLATERAL 10/18/2024 11:06 PM EDT [facility] 10/18/2024 11:0 2 PM EDT 10/18/2024 11:05 PM EDT Hadley Johnson MD POCT ORDERABLES - DE VICE [facility],PULMONARY LAB [address] [place] [address], [facility],Pulmonary Lab [address], [place] * (ABNORMAL) POCT Blood Gas, Arterial (10/18/2024 11:02 PM EDT) Sample Type Arterial 10/18/2024 11:06 PM EDT [facility] pH, Arterial 7.23(LL) 7.35 - 7.45 10/18/2024 11:06 PM EDT [facility] pCO2, Arterial 38 35 - 45 mmHG 10/18/2024 11:06 PM EDT [facility] pO2, Arterial 72(L) 80 - 100 mmHG 10/18/2024 11:06 PM EDT [facility] HCO3 16.0(L) 22 - 26 mmol/L 10/18/2024 11:06 PM EDT [facility] O2 Saturation, Arterial 96.0 95 - 100 % 10/18/2024 11:06 PM EDT [facility] Base Deficit, Arterial 10.8 mmol/L 10/18/2024 11:06 PM EDT [facility] Comment:REFERENCE RANGE: NEG ATIVE 2 TO POSITIVE 2 Liter Flow, I-STAT 2.0 10/18/2024 11:06 PM EDT [facility] Comments POC LEFT RADIAL POSITIVE COLLATERAL 10/18/2024 11:06 PM EDT [facility] Comment REPORTED TO ALLYSSA 10/18/2024 11:06 PM EDT [facility] 10/18/2024 11:0 2 PM EDT 10/18/2024 11:05 PM EDT Hadley Johnson MD POCT ORDERABLES - DE VICE [facility],PULMONARY LAB [address] [place] [address], [facility],Pulmonary Lab [address], [place] * (ABNORMAL) POCT Glucose, Fingerstick (10/18/2024 [...] - 106 mg/dL 10/18/2024 8:26 PM EDT [facility] Comment:Fasting: <100 mg/dL, Non-Fasting: <200 mg/dL (ADA 2004) Blood Urea Nitrogen (BUN) 86(H) 9 - 23 mg/dL 10/18/2024 8:26 PM EDT [facility] Creatinine 7.1(H) 0.7 - 1.3 mg/dL 10/18/2024 8:26 PM EDT [facility] [facility] eGFR 8(L) >59 10/18/2024 8:26 PM EDT [facility] Comment:CKD-EPI (2020) in mL /min/1.73 sq meters. Sodium 143 136 - 145 mmol/L 10/18/2024 8:26 PM EDT [facility] Potassium 5.2(H) 3.4 - 4.5 mmol/L 10/18/2024 8:26 PM EDT [facility] Chloride 111(H) 98 - 107 mmol/L 10/18/2024 8:26 PM EDT [facility] CO2 18(L) 20 - 31 mmol/L 10/18/2024 8:26 PM EDT [facility] Anion Gap 14 5 - 15 10/18/2024 8:26 PM EDT [facility] Calcium 7.8(L) 8.7 - 10.5 mg/dL 10/18/2024 8:26 PM EDT [facility] BUN/Creatinine Ratio 12 10.0 - 25.0 Ratio 10/18/2024 8:26 PM EDT [facility] Blood Blood specimen / Unknown 10/18/2024 7:51 PM EDT 10/18/2024 7:58 PM EDT Hadley Johnson MD LAB BLOOD ORDERABLES [facility] [address] [place] [address], * (ABNORMAL) POCT Blood Gas, Arterial (10/18/2024 5:39 PM EDT) Sample Type Arterial 10/18/2024 5:41 PM EDT [facility] Lab pH, Arterial 7.22(LL) 7.35 - 7.45 10/18/2024 5:41 PM EDT [facility] Lab pCO2, Arterial 37 35 - 45 mmHG 10/18/2024 5:41 PM EDT [facility] Lab pO2, Arterial 148(H) 80 - 100 mmHG 10/18/2024 5:41 PM EDT [facility] HCO3 15.0(L) 22 - 26 mmol/L 10/18/2024 5:41 PM EDT [facility] O2 Saturation, Arterial 98.0 95 - 100 % 10/18/2024 5:41 PM EDT [facility] Lab Base Deficit, Arterial 11.8 mmol/L 10/18/2024 5:41 PM EDT [facility] Lab Comment:REFERENCE RANGE: NEG ATIVE 2 TO POSITIVE 2 Blood Gas Mode, I-STAT BiPAP 10/18/2024 5:41 PM EDT [facility] Lab INPAP 18.0 10/18/2024 5:41 PM EDT [facility] Lab EPAP 6 10/18/2024 5:41 PM EDT [facility] Lab FIO2 Arterial 40 10/18/2024 5:41 PM EDT [facility] Mech Rate 24 10/18/2024 5:41 PM EDT [facility] Lab Comments POC LEFT RADIAL POSITIVE COLLATERAL 10/18/2024 5:41 PM EDT [facility] Lab Comment REPORTED TO RN 10/18/2024 5:41 PM EDT [facility] Lab 10/18/2024 5:39 PM EDT 10/18/2024 5:41 PM EDT Hadley Johnson MD POCT ORDERABLES - DE VICE [facility],PULMONARY LAB [address] [place] [address], [facility],Pulmonary Lab [address], [place] * Protein/Creatinine Ratio Panel, Urine (10/18/2024 5:26 PM EDT) Protein Urine, Random 338 mg/dL 10/18/2024 10:06 PM EDT [facility] Comment:Reference range not established for random specimen. Creatinine, Urine, Random 114 mg/dL 10/18/2024 9:30 PM EDT [facility] Comment:Reference range not established for random specimen. Protein/Creatini ne Ratio, Urine 2.96 10/18/2024 10:06 PM EDT [facility] Urine Urine specimen / Unknown 10/18/2024 5:26 PM EDT 10/18/2024 8:57 PM EDT Hadley Johnson MD URINE ORDERABLES [facility] [address] [place] [address], [place] * (ABNORMAL) Urinalysis with Reflex to Microscopic and Culture (10/18/2024 5:26 PM EDT) Color Yellow 10/18/2024 9:15 PM EDT [facility] Clarity Clear 10/18/2024 9:15 PM EDT [facility] Specific [place] 1.016 1.003 - 1.030 10/18/2024 9:15 PM EDT [facility] pH 5.0 5.0 - 8.0 10/18/2024 9:15 PM EDT [facility] Leukocyte Esterase Negative Negative 10/18/2024 9:15 PM EDT [facility] Nitrite Negative Negative 10/18/2024 9:15 PM EDT [facility] Protein Large (300 mg/dL)(A) Negative 10/18/2024 9:15 PM EDT [facility] Glucose Moderate 0 - 99 mg/dL 10/18/2024 9:15 PM EDT [facility] Ketones Negative Negative 10/18/2024 9:15 PM EDT [facility] Blood Large(A) Negative 10/18/2024 9:15 PM EDT [facility] Urobilinogen 0.2 0.2 - 1.0 EU/dL 10/18/2024 9:15 PM EDT [facility] Bilirubin Negative Negative 10/18/2024 9:15 PM EDT [facility] WBC 9(H) 0 - 4 per hpf 10/18/2024 9:15 PM EDT [facility] RBC 50(H) 0 - 4 per hpf 10/18/2024 9:15 PM EDT [facility] Bacteria Negative Negative 10/18/2024 9:15 PM EDT [facility] Squamous Epithelial Cells 2 per hpf 10/18/2024 9:[address] [facility] Hyaline Casts 1 0 - 4 per lpf 10/18/2024 9:15 PM EDT [facility] Yeast Absent Absent 10/18/2024 9:15 PM EDT [facility] Urine Urine specimen obtained by clean catch procedure / Unknown 10/18/2024 5:26 PM EDT 10/18/2024 8:56 PM EDT Hadley Johnson MD MICROBIOLOGY - [facility] AL ORDERABLES [facility] [address] [place] [address], * Legionella & Streptococcus Pneumoniae Antigen, Urine (10/18/2024 5:26 PM EDT) Pathologist [facility] Legionella Antigen EIA, Urine Presumptive Negative Presumptive Negative 10/19/2024 8:59 AM EDT [facility] Comment: Presumptive Negative for [...] Negative Presumptive Negative 10/19/2024 8:59 AM EDT [facility] Comment:Presumptive Negative for Pneumococcal Pneumonia, suggesting no recent or current Pneumococcal Infection. Infection due to S.pneumoniae cannot be ruled out since the antigen level present in the specimen may be below the detection limit of the test. Urine Urine specimen / Unknown 10/18/2024 5:26 PM EDT 10/18/2024 8:57 PM EDT Hadley Johnson MD URINE ORDERABLES [facility] [address] [place] [address], * (ABNORMAL) POCT Glucose, Fingerstick (10/18/2024 4:49 [...] (ABNORMAL) PTH, Intact (10/18/2024 3:00 PM EDT) [facility] PTH, Intact 755(H) 18 - 80 pg/mL 10/18/2024 4:18 PM EDT [facility] Blood Blood specimen / Unknown 10/18/2024 3:00 PM EDT 10/18/2024 3:39 PM EDT Hadley Johnson MD LAB BLOOD ORDERABLES [facility] [address] [place] [address], * Nasal MRSA Screen, PCR (10/18/2024 2:45 PM EDT) [facility] MRSA Result Not Detected Not Detected 4:16 PM EDT [facility] Swab, Anterior Nares Specimen from nose / Unknown 10/18/2024 2:45 PM EDT 10/18/2024 2:58 PM EDT Hadley Johnson MD MICROBIOLOGY - GENER AL ORDERABLES Performing Organization Address [facility]/[place] [address], * Lactic Acid, Plasma (STAT) (10/18/2024 1:43 PM EDT) Lactic Acid 1.2 0.5 - 1.9 mmol/L 10/18/2024 2:11 PM EDT [facility] Blood Blood specimen / Unknown 10/18/2024 1:43 PM EDT 10/18/2024 1:49 PM EDT Hadley Johnson MD LAB BLOOD ORDERABLES Performing Organization Address [facility]/[place] [address], * (ABNORMAL) POCT Blood Gas, Arterial (10/18/2024 12:27 PM EDT) Sample Type Arterial 10/18/2024 12:28 PM EDT [facility] Lab pH, Arterial 7.18(LL) 7.35 - 7.45 10/18/2024 12:28 PM EDT [facility] Lab pCO2, Arterial 38 35 - 45 mmHG 10/18/2024 12:28 PM EDT [facility] Lab pO2, Arterial 134(H) 80 - 100 mmHG 10/18/2024 12:28 PM EDT [facility] Lab HCO3 14.0(L) 22 - 26 mmol/L 10/18/2024 12:28 PM EDT [facility] Lab O2 Saturation, Arterial 98.0 95 - 100 % 10/18/2024 12:28 PM EDT [facility] Lab Base Deficit, Arterial 13.4 mmol/L 10/18/2024 12:28 PM EDT [facility] Comment:REFERENCE RANGE: NEG ATIVE 2 TO POSITIVE 2 Blood Gas Mode, I-STAT BiPAP 10/18/2024 12:28 PM EDT [facility] Lab INPAP 14.0 10/18/2024 12:28 PM EDT [facility] Lab EPAP 5 10/18/2024 12:28 PM EDT [facility] Lab FIO2 Arterial 40 10/18/2024 12:28 PM EDT [facility] Lab Mech Rate 18 10/18/2024 12:28 PM EDT [facility] Lab Comments POC LEFT RADIAL POSITIVE COLLATERAL 10/18/2024 12:28 PM EDT [facility] Lab Comment REPORTED TO WEI HEBERT 10/18/2024 12:28 PM EDT [facility] Lab 10/18/2024 12:2 7 PM EDT 10/18/2024 12:28 PM EDT Hadley Johnson MD POCT ORDERABLES - DE VICE [facility],PULMONARY LAB [address] [place] [address], [place] [facility],Pulmonary Lab [address], [place] * Blood Culture (10/18/2024 12:11 PM EDT) Culture Sterile after 5 days 10/23/2024 7:06 AM EDT [facility] Blood Blood specimen / Unknown 10/18/2024 12:11 PM EDT 10/18/2024 12:42 PM EDT Comment:Blood Hadley Johnson MD LAB BLOOD ORDERABLES [facility] [address] [place] [address], [place] * (ABNORMAL) B-Hydroxybutyrate (10/18/2024 12:09 PM EDT) B-Hydroxybutyrate 0.30(H) <0.28 mmol/L 10/18/2024 2:02 PM EDT [facility] Comment: In the presence of uncontrolled [...] EDT Hadley Johnson MD LAB BLOOD ORDERABLES [facility] [address] [place] [address], [place] * Blood Culture (10/18/2024 12:09 PM EDT) Culture Sterile after 5 days 10/23/2024 7:06 AM EDT [facility] Blood Blood specimen / Unknown 10/18/2024 12:09 PM EDT 10/18/2024 12:43 PM EDT Comment:Blood Hadley Johnson MD LAB BLOOD ORDERABLES [facility] [address] [place] [address], * (ABNORMAL) Phosphorus (STAT) (10/18/2024 12:09 PM EDT) Phosphorus 6.6(H) 2.4 - 5.1 mg/dL 10/18/2024 1:18 PM EDT [facility] Blood Blood specimen / Unknown 10/18/2024 12:09 PM EDT 10/18/2024 12:44 PM EDT Hadley Johnson MD [place] [address], * Magnesium (STAT) (10/18/2024 12:09 PM EDT) Magnesium 1.6 1.6 - 2.6 mg/dL 10/18/2024 1:18 PM EDT [facility] Blood Blood specimen / Unknown 10/18/2024 12:09 PM EDT 10/18/2024 12:44 PM EDT Hadley Johnson MD LAB BLOOD ORDERABLES Performing Organization Address City/[facility]/[place] [address], * (ABNORMAL) Comprehensive Metabolic Panel (STAT) (10/18/2024 12:09 PM EDT) Glucose 368(H) 74 - 106 mg/dL 10/18/2024 1:18 PM EDT [facility] Comment:Fasting: <100 mg/dL, Non-Fasting: <200 mg/dL (ADA 2004) Blood Urea Nitrogen (BUN) 80(H) 9 - 23 mg/dL 10/18/2024 1:18 PM EDT [facility] Creatinine 7.0(H) 0.7 - 1.3 mg/dL 10/18/2024 1:18 PM EDT [facility] eGFR 8(L) >59 10/18/2024 1:18 PM EDT [facility] Comment:CKD-EPI (2020) in mL /min/1.73 sq meters. Sodium 141 136 - 145 mmol/L 10/18/2024 1:18 PM EDT [facility] Potassium 5.0(H) 3.4 - 4.5 mmol/L 10/18/2024 1:18 PM EDT [facility] Chloride 108(H) 98 - 107 mmol/L 10/18/2024 1:18 PM EDT [facility] CO2 18(L) 20 - 31 mmol/L 10/18/2024 1:18 PM EDT [facility] Calcium 7.8(L) 8.7 - 10.5 mg/dL 10/18/2024 1:18 PM EDT [facility] Alkaline Phosphatase 154(H) 45 - 128 U/L 10/18/2024 1:18 PM EDT [facility] Aspartate Aminotrans (AST) 35(H) <34 U/L 10/18/2024 1:18 PM EDT [facility] Alanine Aminotrans (ALT) 23 10 - 49 U/L 10/18/2024 1:18 PM EDT [facility] Bilirubin, Total 0.2(L) 0.3 - 1.2 mg/dL 10/18/2024 1:18 PM EDT [facility] Protein, Total 7.1 5.7 - 8.2 g/dL 10/18/2024 1:18 PM EDT [facility] Albumin 3.6 3.4 - 4.8 g/dL 10/18/2024 1:18 PM EDT [facility] BUN/Creatinine Ratio 11 10.0 - 25.0 Ratio 10/18/2024 1:18 PM EDT [facility] Globulin 3.5 1.5 - 3.9 g/dL 10/18/2024 1:18 PM EDT [facility] Albumin/Globulin Ratio 1.1(L) 1.5 - 2.5 Ratio 10/18/2024 1:18 PM EDT [facility] Anion Gap 16(H) 5 - 15 10/18/2024 1:18 PM EDT [facility] Blood Blood specimen / Unknown 10/18/2024 12:09 PM EDT 10/18/2024 12:44 PM EDT Hadley Johnson MD LAB BLOOD ORDERABLES [facility] [address] [place] [address], [place] * (ABNORMAL) Complete Blood Count WITH Differential - STAT (10/18/2024 12:09 PM EDT) White Blood Cell Count 10.6 4.0 - 11.0 Thou/uL 10/18/2024 12:47 PM EDT [facility] Platelet Count 191 150 - 450 Thou/uL 10/18/2024 12:47 PM EDT [facility] Hemoglobin 7.9(L) 13.0 - 17.7 g/dL 10/18/2024 12:47 PM EDT [facility] Hematocrit 25.6(L) 39.0 - 54.0 % 10/18/2024 12:47 PM EDT [facility] Red Blood Cell Count 2.63(L) 4.50 - 6.20 Mil/uL 10/18/2024 12:47 PM EDT [facility] MCV 97 80 - 100 fL 10/18/2024 12:47 PM EDT [facility] MCH 30.0 27.0 - 31.0 pg 10/18/2024 12:47 PM EDT [facility] MCHC 30.9 30.0 - 36.0 g/dL 10/18/2024 12:47 PM EDT [facility] RDW 15.0(H) 11.5 - 14.5 % 10/18/2024 12:47 PM EDT [facility] MPV 11.1 7.5 - 12.5 fL 10/18/2024 12:47 PM EDT [facility] Neutrophils Auto 90.5 % 10/19/19 12:47 PM EDT [facility] Immature Granulocytes 1.4 % 10/18/2024 12:47 PM EDT [facility] Lymphocytes Auto 4.2 % 10/19/19 12:47 PM EDT [facility] Monocytes Auto 3.7 % 10/18/2024 12:47 PM EDT [facility] Eosinophils Auto 0.0 % 10/19/19 12:47 PM EDT [facility] Basophils Auto 0.2 % 10/18/2024 12:47 PM EDT [facility] Abs Neutrophils Auto 9.58(H) 2.00 - 7.50 Thou/uL 10/18/2024 12:47 PM EDT [facility] Abs Immature Granulocytes 0.15(H) 0.00 - 0.10 Thou/uL 10/18/2024 12:47 PM EDT [facility] Abs Lymphocytes Auto 0.45(L) 1.50 - 4.50 Thou/uL 10/18/2024 12:47 PM EDT [facility] Abs Monocytes Auto 0.39 0.20 - 1.50 Thou/uL 10/18/2024 12:47 PM EDT [facility] Abs Eosinophils Auto 0.00 0.00 - 0.70 Thou/uL 10/18/2024 12:47 PM EDT [facility] Abs Basophils Auto 0.02 0.00 - 0.20 Thou/uL 10/18/2024 12:47 PM EDT [facility] Blood Blood specimen / Unknown 10/18/2024 12:09 PM EDT 10/18/2024 12:44 PM EDT Hadley Johnson MD LAB BLOOD ORDERABLES [facility] [address] [place] [address], * (ABNORMAL) POCT Glucose, Fingerstick (10/18/2024 12:05 PM EDT) POC Glucose 357(H) 65 - 99 mg/dL 10/18/2024 12:13 PM EDT Blood specimen / Unknown 10/18/2024 12:05 PM EDT 10/18/2024 12:13 PM EDT Hadley Johnson MD POINT OF CARE TEST O RDERABLES [facility]PITAL LAB See Below * ECG 12 lead (10/18/2024 11:36 AM EDT) Ventricular rate 84 BPM EKG [facility] Atrial rate 84 BPM EKG [facility] P-R interval 154 ms EKG [facility] QRS duration 78 ms EKG [facility] Q-T interval 412 ms EKG [facility] QTC calculation (Bazett) 487 ms EKG [facility] P axis 52 degrees EKG [facility] R axis 5 degrees EKG [facility] T axis 41 degrees EKG [facility] 10/18/2024 11:3 6 AM EDT Narrative EKG [facility] - 10/18/2024 11:38 AM EDT Normal sinus rhythm Prolonged QT Abnormal ECG No previous ECGs available Confirmed by MD Simmons Venu ([id number]) on 10/18/2024 11:38:06 AM Procedure Note Roland Simmons MD - 10/18/2024 Normal sinus rhythm Prolonged QT Abnormal ECG No previous ECGs available Confirmed by MD Simmons Venu ([id number]) on 10/18/2024 11:38:06 AM Hadley Johnson MD ECG ORDERABLES Performing Organization Address [facility] de Phone Number EKG [facility] * XR Chest 1 view-Portable (10/18/2024 11:30 [...] over 1-4 minutes.=, All antimicrobials used at [facility] require an indication. Please complete the following documentation. Bacterial Infection Documented, Type of Therapy: Continued from [facility], Indication: Pneumonia Given 10/21/2024 12:24 PM EDT 1 g cefTRIAXone (ROCEPHIN) IV Push 1 g 1 g, Intravenous, Every 24 hours, First dose (after last modification) on Thu10/22/24 at 0900, For 4 doses, For IV push: Reconstitute with 9.6 mL SWFI, NS or D5. Final volume = 10 mL. Give IV Push over 1-4 minutes.=, All antimicrobials used at [facility] require an indication. Please complete the following documentation. Bacterial Infection Documented, Type of Therapy: Continued from [facility], Indication: Pneumonia Given 10/22/2024 8:19 AM [...] For 4 days, All antimicrobials used at [facility] require an indication. Please complete the following [...] over 1-4 minutes.=, All antimicrobials used at [facility] require an indication. Please complete the following documentation. Bacterial Infection Documented, Type of Therapy: Continued from [facility], Indication: Pneumonia 1235 (Given - Provider: [...] over 1-4 minutes.=, All antimicrobials used at [facility] require an indication. Please complete the following documentation. Bacterial Infection Documented, Type of Therapy: Continued from [facility], Indication: Pneumonia 08 (Given - Provider: Marquez [...] For 4 days, All antimicrobials used at [facility] require an indication. Please complete the following [...] at 1230 1250 (Given - Provider: Haylee Burgos, ANUP)1514 (SEP [...] to swallow. See Hypoglycemia Management guideline. 1513 ([facility] Hold - Provider: Automatic Transfer Provider - Reason: Unreviewed Transfer Orders)152 ([facility] Unhold - Provider: Lety Tavera, ANUP) glucagon [...] 1 mL sterile water for injection. 1513 ([facility] Hold - Provider: Automatic Transfer Provider - Reason: Unreviewed Transfer Orders)152 ([facility] Unhold - Provider: Lety Tavera RN) glucose [...] % = 15 grams of glucose. 1513 ([facility] Hold - Provider: Automatic Transfer Provider - Reason: Unreviewed Transfer Orders)152 ([facility] Unhold - Provider: Lety Tavera RN) glucose [...] % = 15 grams of glucose. 151 ([facility] Hold - Provider: Automatic Transfer Provider - Reason: Unreviewed Transfer Orders)1521 ([facility] Unhold - Provider: Lety Tavera, ANUP) ipratropium-albuterol (DUONEB) 0.5-2.5 mg/3 mL nebulizer solution 3 mL 3 mL, Nebulization, Every 6 hours PRN, wheezing, shortness of breath, Starting on Thu10/19/24 at 1144, Albuterol expressed in base strength. Albuterol sulfate 3 mg = albuterol (base) 2.5 mg., Albuterol or Duoneb Indication: Bronchospasm 151 ([facility] Hold - Provider: Automatic Transfer Provider - Reason: Unreviewed Transfer Orders)1521 ([facility] Unhold - Provider: Lety Tavera RN) lactulose (ENULOSE) 10 gm/15 mL solution 20 g 20 g (30 mL), Oral, Every 4 hours PRN, constipation, if no bowel movment by day 3, Starting on Thu10/18/24 at 1057, Administer until bowel movement 151 ([facility] Hold - Provider: Automatic Transfer Provider - Reason: Unreviewed Transfer Orders)1521 ([facility] Unhold - Provider: Lety Tavera, ANUP) 0923 (Given - Provider: Aliya Pollock RN) naloxone (NARCAN) 0.4 mg/mL injection 0.4 mg 0.4 mg, Intravenous, Every 5 min PRN, opioid reversal, respiratory depression, Starting on Thu10/18/24 at 1057, Notify provider if administered 151 ([facility] Hold - Provider: Automatic Transfer Provider - Reason: Unreviewed Transfer Orders)1521 ([facility] Unhold - Provider: Lety Tavera, ANUP) perflutren [...]
--- OUTSIDE RECORDS SUMMARY | 2024-10-26 11:20 | XMS_ITS | Clinical Summary ---
Author Organization [facility] Address [address] [place] [address] Care Team Providers Care Barrel Charrer Name Role Phone Unavailable Primary Care Provider [...] at Discharge) cholecalciferol (CHOLECALCIFEROL ) 1.25 MG (66884 UT) capsule Take 1 capsule (50,000 Units [...] Description 10/18/2024 4:00 PM EDT Ancillary Procedure [facility] Radiology [address] [place] [address] Provider, File Room 10/18/2024 10:27 AM EDT - 10/22/2024 11:46 AM EDT Hospital Encounter [facility] [address] [phone] Marcelino Garcia MD Elias, Michael, MD Javed, MD Lucía Joshi Anita, MD Acute hypoxic respiratory failure (HCC) (Primary Dx); Pneumonia due to infectious organism, unspecified laterality, unspecified part of lung Discharge Disposition: Home or Self Care 10/17/2024 Orders Only [facility] Rad[facility] [address] [facility] [address] Provider, File Room from Last 3 Months Social History Tobacco Use Types Packs/Day Years Used Date Smoking Tobacco: Never Assessed [facility] Utilities Answer Date Recorded In the past [...] any time in the past 12 m [facility], were you homeless or living in a alf (including now)? No 10/21/2024 Sex and Gender [...] - 11.0 Thou/uL 10/22/2024 8:07 AM EDT [facility] Platelet Count 243 150 - 450 Thou/uL 10/22/2024 8:07 AM EDT [facility] Hemoglobin 8.4(L) 13.0 - 17.7 g/dL 10/22/2024 8:07 AM EDT [facility] Hematocrit 26.7(L) 39.0 - 54.0 % 10/22/2024 8:07 AM EDT [facility] Red Blood Cell Count 2.87(L) 4.50 - 6.20 Mil/uL 10/22/2024 8:07 AM EDT [facility] MCV 93 80 - 100 fL 10/22/2024 8:07 AM EDT [facility] MCH 29.3 27.0 - 31.0 pg 10/22/2024 8:07 AM EDT [facility] MCHC 31.5 30.0 - 36.0 g/dL 10/22/2024 8:07 AM EDT [facility] RDW 14.6(H) 11.5 - 14.5 % 10/22/2024 8:07 AM EDT [facility] MPV 11.0 7.5 - 12.5 fL 10/22/2024 8:07 AM EDT [facility] nRBC 0.5(H) 0.0 - 0.1 /100 WBC 10/22/2024 8:07 AM EDT [facility] nRBC, Absolute 0.06(H) 0.00 - 0.02 Thou/uL 10/22/2024 8:07 AM EDT [facility] Bands Man 4 % 10/22/2024 9:31 AM EDT [facility] Neutrophils Man 86 % 9:31 AM EDT [facility] Lymphocytes Man 7 % 9:31 AM EDT [facility] Monocytes Man 3 % 10/22/2024 9:31 AM EDT [facility] Abs Neutrophils Count (ANC) 10.6(H) 2.0 - 7.5 Thou/uL 10/22/2024 9:31 AM EDT [facility] Abs Lymphocytes Man 0.8(L) 1.5 - 4.5 Thou/uL 10/22/2024 9:31 AM EDT [facility] Abs Monocytes Man 0.4 0.2 - 1.5 Thou/uL 10/22/2024 9:31 AM EDT [facility] Macrocytes Occasional 10/22/2024 9:31 AM EDT [facility] Polychromasia Occasional 10/22/2024 9:31 AM EDT [facility] Hypochromia Occasional 10/22/2024 9:31 AM EDT [facility] Spherocytes Occasional 10/22/2024 9:31 AM EDT [facility] Blood Blood specimen / Unknown 10/22/2024 7:49 AM EDT 10/22/2024 8:00 AM EDT Christal Castrejon MD LAB BLOOD ORDERABLES [facility] [address] [place] [address], * (ABNORMAL) Basic Metabolic Panel (Early AM) (10/22/2024 7:49 AM EDT) Only the most recent of2 resultswithin the time period is included. Glucose 145(H) 74 - 106 mg/dL 10/22/2024 8:37 AM EDT [facility] Comment:Fasting: <100 mg/dL, Non-Fasting: <200 mg/dL (ADA 2004) Blood Urea Nitrogen (BUN) 107(H) 9 - 23 mg/dL 10/22/2024 8:37 AM EDT [facility] Creatinine 6.1(H) 0.7 - 1.3 mg/dL 10/22/2024 8:37 AM EDT [facility] eGFR 9(L) >59 10/22/2024 8:37 AM EDT [facility] Comment:CKD-EPI (2020) in mL /min/1.73 sq meters. Sodium 146(H) 136 - 145 mmol/L 10/22/2024 8:37 AM EDT [facility] Potassium 3.8 3.4 - 4.5 mmol/L 10/22/2024 8:37 AM EDT [facility] Chloride 107 98 - 107 mmol/L 10/22/2024 8:37 AM EDT [facility] CO2 23 20 - 31 mmol/L 10/22/2024 8:37 AM EDT [facility] Anion Gap 16(H) 5 - 15 10/22/2024 8:37 AM EDT [facility] Calcium 8.2(L) 8.7 - 10.5 mg/dL 10/22/2024 8:37 AM EDT [facility] BUN/Creatinine Ratio 18 10.0 - 25.0 Ratio 10/22/2024 8:37 AM EDT [facility] Blood Blood specimen / Unknown 10/22/2024 7:49 AM EDT 10/22/2024 8:00 AM EDT Christal Castrejon MD LAB BLOOD ORDERABLES [facility] [address] [place] [address], * (ABNORMAL) POCT Glucose, Fingerstick (10/22/2024 7:42 AM EDT) Only the most recent of20 resultswithin the time period is included. Pathologist [facility] POC Glucose 150(H) 65 - 99 mg/dL 10/22/2024 7:48 AM EDT Blood specimen / Unknown 10/22/2024 7:42 AM EDT 10/22/2024 7:48 AM EDT Christal Castrejon MD POINT OF CARE TEST O RDERABLES [facility]OSPITAL LAB See Below * ECHOCARDIOGRAM COMPREHENSIVE WITH CONTRAST (10/20/2024 12:11 PM EDT) Pathologist [facility] IVS Mean (F:0.6-0.9, M:0.6-1.0) 1.0 cm IVS [...] - 5.1 mg/dL 10/20/2024 6:13 AM EDT [facility] Blood Blood specimen / Unknown 10/20/2024 5:31 AM EDT 10/20/2024 5:37 AM EDT Hadley Johnson MD LAB BLOOD ORDERABLES Performing Organization Address City/[facility]/ZIP Co de Phone Number [address] * MAGNESIUM (10/20/2024 5:31 AM EDT) Only the most recent of3 resultswithin the time period is included. Magnesium 2.1 1.6 - 2.6 mg/dL 10/20/2024 6:13 AM EDT [facility] Blood Blood specimen / Unknown 10/20/2024 5:31 AM EDT 10/20/2024 5:37 AM EDT Hadley Johnson MD LAB BLOOD ORDERABLES Performing Organization Address City/[facility] Co de Phone Number [address] * (ABNORMAL) Comprehensive Metabolic Panel (10/20/2024 5:31 AM EDT) Only the most recent of3 resultswithin the time period is included. Glucose 141(H) 74 - 106 mg/dL 10/20/2024 6:13 AM EDT [facility] Comment:Fasting: <100 mg/dL, Non-Fasting: <200 mg/dL (ADA 2004) Blood Urea Nitrogen (BUN) 100(H) 9 - 23 mg/dL 10/20/2024 6:13 AM EDT [facility] Creatinine 6.6(H) 0.7 - 1.3 mg/dL 10/20/2024 6:13 AM EDT [facility] eGFR 8(L) >59 10/20/2024 6:13 AM EDT [facility] Comment:CKD-EPI (2020) in mL /min/1.73 sq meters. Sodium 143 136 - 145 mmol/L 10/20/2024 6:13 AM EDT [facility] Potassium 4.0 3.4 - 4.5 mmol/L 10/20/2024 6:13 AM EDT [facility] Chloride 108(H) 98 - 107 mmol/L 10/20/2024 6:13 AM EDT [facility] CO2 22 20 - 31 mmol/L 10/20/2024 6:13 AM EDT [facility] Calcium 7.4(L) 8.7 - 10.5 mg/dL 10/20/2024 6:13 AM EDT [facility] Alkaline Phosphatase 150(H) 45 - 128 U/L 10/20/2024 6:13 AM EDT [facility] Aspartate Aminotrans (AST) 37(H) <34 U/L 10/20/2024 6:13 AM EDT [facility] Alanine Aminotrans (ALT) 23 10 - 49 U/L 10/20/2024 6:13 AM EDT [facility] Bilirubin, Total 0.2(L) 0.3 - 1.2 mg/dL 10/20/2024 6:13 AM EDT [facility] Protein, Total 6.8 5.7 - 8.2 g/dL 10/20/2024 6:13 AM EDT [facility] Albumin 3.5 3.4 - 4.8 g/dL 10/20/2024 6:13 AM EDT [facility] BUN/Creatinine Ratio 15 10.0 - 25.0 Ratio 10/20/2024 6:13 AM EDT [facility] Globulin 3.3 1.5 - 3.9 g/dL 10/20/2024 6:13 AM EDT [facility] Albumin/Globulin Ratio 1.0(L) 1.5 - 2.5 Ratio 10/20/2024 6:13 AM EDT [facility] Anion Gap 13 5 - 15 10/20/2024 6:13 AM EDT [facility] Blood Blood specimen / Unknown 10/20/2024 5:31 AM EDT 10/20/2024 5:37 AM EDT Hadley Johnson MD LAB BLOOD ORDERABLES [facility] [address] [place] [address], * (ABNORMAL) POCT Blood Gas, Arterial (10/19/2024 3:46 PM EDT) Only the most recent of5 resultswithin the time period is included. Sample Type Arterial 10/19/2024 3:48 PM EDT [facility] pH, Arterial 7.36 7.35 - 7.45 10/19/2024 3:48 PM EDT [facility] pCO2, Arterial 36 35 - 45 mmHG 10/19/2024 3:48 PM EDT [facility] pO2, Arterial 48(LL) 80 - 100 mmHG 10/19/2024 3:48 PM EDT [facility] HCO3 20.0(L) 22 - 26 mmol/L 10/19/2024 3:48 PM EDT [facility] O2 Saturation, Arterial 79.0(L) 95 - 100 % 10/19/2024 3:48 PM EDT [facility] Base Deficit, Arterial 4.5 mmol/L 10/19/2024 3:48 PM EDT [facility] Comment:REFERENCE RANGE: NEG ATIVE 2 TO POSITIVE 2 Liter Flow, I-STAT 3.0 10/19/2024 3:48 PM EDT [facility] Comments POC VENOUS 10/19/2024 3:48 PM EDT [facility] 10/19/2024 3:46 PM EDT 10/19/2024 3:48 PM EDT Hadley Johnson MD POCT ORDERABLES - DE VICE [facility],PULMONARY LAB [address] [place] [address], [facility],Pulmonary Lab [address] [facility], [place] * XR Chest 1 view-Portable (10/19/2024 [...] is included. Ventricular rate 94 BPM EKG [facility] Atrial rate 94 BPM EKG [facility] P-R interval 138 ms EKG [facility] QRS duration 88 ms EKG [facility] Q-T interval 386 ms EKG [facility] QTC calculation (Bazett) 483 ms EKG [facility] P axis 60 degrees EKG [facility] R axis 19 degrees EKG [facility] T axis 55 degrees EKG [facility] 10/19/2024 9:20 AM EDT Narrative EKG [facility] - 10/19/2024 9:41 AM EDT Normal sinus rhythm Prolonged QT Abnormal ECG When compared with ECG of 18-Oct-2024 11:36, No significant change was found Confirmed by MD Simmons Venu ([id number]) on 10/19/2024 9:41:44 AM Procedure Note Roland Simmons MD - 10/19/2024 Normal sinus rhythm Prolonged QT Abnormal ECG When compared with ECG of 18-Oct-2024 11:36, No significant change was found Confirmed by MD Simmons Venu ([id number]) on 10/19/2024 9:41:44 AM Hadley Johnson MD ECG ORDERABLES EKG [facility] * (ABNORMAL) POCT, Ionized Calcium (10/18/2024 11:02 PM EDT) POC Ionized Calcium 4.30(L) 4.60 - 5.32 mg/dL 10/18/2024 11:06 PM EDT [facility] Smear Cmt LEFT RADIAL POSITIVE COLLATERAL No comment 10/18/2024 11:06 PM EDT [facility] 10/18/2024 11:0 2 PM EDT 10/18/2024 11:05 PM EDT Hadley Johnson MD POCT ORDERABLES - DE VICE [facility],PULMONARY LAB [address] [place] [address], [facility],Pulmonary Lab [address] [facility], [place] * POCT, Lactate (10/18/2024 11:02 PM EDT) Lactate, POC 0.6 0.4 - 0.8 mmol/L 10/18/2024 11:06 PM EDT [facility] Comment LEFT RADIAL POSITIVE COLLATERAL No comment 10/18/2024 11:06 PM EDT [facility] 10/18/2024 11:0 2 PM EDT 10/18/2024 11:05 PM EDT Hadley Johnson MD POCT ORDERABLES - DE VICE [facility],PULMONARY LAB [address] [place] [address], [facility],Pulmonary Lab [address] [place], [place] * POCT, Sodium (10/18/2024 11:02 PM EDT) Sodium 138 136 - 145 mmol/L 10/18/2024 11:06 PM EDT [facility] Smear Comm LEFT RADIAL POSITIVE COLLATERAL No comment 10/18/2024 11:06 PM EDT [facility] 10/18/2024 11:0 2 PM EDT 10/18/2024 11:05 PM EDT Hadley Johnson MD POCT ORDERABLES - DE VICE [facility],PULMONARY LAB [address] [place] [address], [facility],Pulmonary Lab [address] [facility], [place] * POCT, Potassium (10/18/2024 11:02 PM EDT) Potassium 4.3 3.5 - 5.1 mmol/L 10/18/2024 11:06 PM EDT [facility] Comment LEFT RADIAL POSITIVE COLLATERAL No comment 10/18/2024 11:06 PM EDT [facility] 10/18/2024 11:0 2 PM EDT 10/18/2024 11:05 PM EDT Hadley Johnson MD POCT ORDERABLES - DE VICE [facility],PULMONARY LAB [address] [place] [address], [facility],Pulmonary Lab [address] [facility], [place] * (ABNORMAL) POCT, Hematocrit (10/18/2024 11:02 PM EDT) Hematocrit 25.0(L) 40 - 50 % 10/18/2024 11:06 PM EDT [facility] Comment LEFT RADIAL POSITIVE COLLATERAL 10/18/2024 11:06 PM EDT [facility] 10/18/2024 11:0 2 PM EDT 10/18/2024 11:05 PM EDT Hadley Johnson MD POCT ORDERABLES - DE VICE [facility],PULMONARY LAB [address] [place] [address], [facility],Pulmonary Lab [address] [facility], [place] * (ABNORMAL) POCT, Glucose (10/18/2024 11:02 PM EDT) Glucose POC 206(H) 70 - 108 mg/dL 10/18/2024 11:06 PM EDT [facility] Comment LEFT RADIAL POSITIVE COLLATERAL No comment 10/18/2024 11:06 PM EDT [facility] 10/18/2024 11:0 2 PM EDT 10/18/2024 11:05 PM EDT Hadley Johnson MD POCT ORDERABLES - DE VICE [facility],PULMONARY LAB [address] [place] [address], [facility],Pulmonary Lab [address] [place], [place] * POCT, Cooximetry (10/18/2024 11:02 PM EDT) Carboxyhemoglobin 0.0 % 025 11:06 PM EDT [facility] Methemoglobin 0.7 % 10/18/2024 11:06 PM EDT [facility] Oxyhemoglobin, POC 94.8000 % 2024 11:06 PM EDT [facility] Reduced Hemoglobin 4.5 % 2024 11:06 PM EDT [facility] Hemoglobin, POC 8.4 11:06 PM EDT [facility] POC Sample Type Arterial 11:06 PM EDT [facility] Comment LEFT RADIAL POSITIVE COLLATERAL 10/18/2024 11:06 PM EDT [facility] 10/18/2024 11:0 2 PM EDT 10/18/2024 11:05 PM EDT Hadley Johnson MD POCT ORDERABLES - DE VICE [facility],PULMONARY LAB [address] [place] [address], [facility],Pulmonary Lab [address] [place], [place] * (ABNORMAL) Urinalysis with Reflex to Microscopic and Culture (10/18/2024 5:26 PM EDT) Color Yellow 10/18/2024 9:15 PM EDT [facility] Clarity Clear 10/18/2024 9:15 PM EDT [facility] Specific Clive 1.016 1.003 - 1.030 10/18/2024 9:15 PM EDT [facility] pH 5.0 5.0 - 8.0 10/18/2024 9:15 PM EDT [facility] Leukocyte Esterase Negative Negative 10/18/2024 9:15 PM EDT [facility] Nitrite Negative Negative 10/18/2024 9:15 PM EDT [facility] Protein Large (300 mg/dL)(A) Negative 10/18/2024 9:15 PM EDT [facility] Glucose Moderate 0 - 99 mg/dL 10/18/2024 9:15 PM EDT [facility] Ketones Negative Negative 10/18/2024 9:15 PM EDT [facility] Blood Large(A) Negative 10/18/2024 9:15 PM EDT [facility] Urobilinogen 0.2 0.2 - 1.0 EU/dL 10/18/2024 9:15 PM EDT [facility] Bilirubin Negative Negative 10/18/2024 9:15 PM EDT [facility] WBC 9(H) 0 - 4 per hpf 10/18/2024 9:15 PM EDT [facility] RBC 50(H) 0 - 4 per hpf 10/18/2024 9:15 PM EDT [facility] Bacteria Negative Negative 10/18/2024 9:15 PM EDT [facility] Squamous Epithelial Cells 2 per hpf 10/18/2024 9:15 PM EDT [facility] Hyaline Casts 1 0 - 4 per lpf 10/18/2024 9:15 PM EDT [facility] Yeast Absent Absent 10/18/2024 9:15 PM EDT [facility] Urine Urine specimen obtained by clean catch procedure / Unknown 10/18/2024 5:26 PM EDT 10/18/2024 8:56 PM EDT Hadley Johnson MD MICROBIOLOGY - [facility] AL ORDERABLES [facility] [address] [place] [address], * Legionella & Streptococcus Pneumoniae Antigen, Urine (10/18/2024 5:26 PM EDT) Legionella Antigen EIA, Urine Presumptive Negative Presumptive Negative 10/19/2024 8:59 AM EDT [facility] Comment: Presumptive Negative for L.pneumophila [...] Negative Presumptive Negative 10/19/2024 8:59 AM EDT [facility] Comment:Presumptive Negative for Pneumococcal Pneumonia, suggesting no recent or current Pneumococcal Infection. Infection due to S.pneumoniae cannot be ruled out since the antigen level present in the specimen may be below the detection limit of the test. Urine Urine specimen / Unknown 10/18/2024 5:26 PM EDT 10/18/2024 8:57 PM EDT Hadley Johnson MD URINE ORDERABLES [facility] [address] [place] [address], * Protein/Creatinine Ratio Panel, Urine (10/18/2024 5:26 PM EDT) Protein Urine, Random 338 mg/dL 10/18/2024 10:06 PM EDT [facility] Comment:Reference range not established for random specimen. Creatinine, Urine, Random 114 mg/dL 10/18/2024 9:30 PM EDT [facility] Comment:Reference range not established for random specimen. Protein/Creatini ne Ratio, Urine 2.96 10/18/2024 10:06 PM EDT [facility] Urine Urine specimen / Unknown 10/18/2024 5:26 PM EDT 10/18/2024 8:57 PM EDT Hadley Johnson MD URINE ORDERABLES [facility] [address] [place] [address], [place] * CT Chest/abdomen+pelvis w/o contrast (10/18/2024 [...] File Room Provider IMG DIGITIZE FILMS NIMESH [phone] * (ABNORMAL) PTH, Intact (10/18/2024 3:00 PM EDT) PTH, Intact 755(H) 18 - 80 pg/mL 10/18/2024 4:18 PM EDT [facility] Blood Blood specimen / Unknown 10/18/2024 3:00 PM EDT 10/18/2024 3:39 PM EDT Hadley Johnson MD LAB BLOOD ORDERABLES Performing Organization Address City/[facility]/ZIP Co de Phone Number [address] * Nasal MRSA Screen, PCR (10/18/2024 2:45 PM EDT) Pathologist [facility] MRSA Result Not Detected Not Detected 4:16 PM EDT [facility] Swab, Anterior Nares Specimen from nose / Unknown 10/18/2024 2:45 PM EDT 10/18/2024 2:58 PM EDT Hadley Johnson MD MICROBIOLOGY - GENER AL ORDERABLES Performing Organization Address [facility] Co de Phone Number [address] * Lactic Acid, Plasma (STAT) (10/18/2024 1:43 PM EDT) Pathologist [facility] Lactic Acid 1.2 0.5 - 1.9 mmol/L 10/18/2024 2:11 PM EDT [facility] Blood Blood specimen / Unknown 10/18/2024 1:43 PM EDT 10/18/2024 1:49 PM EDT Hadley Johnson MD LAB BLOOD ORDERABLES Performing Organization Address City/[facility] Co de Phone Number [address] * Blood Culture (10/18/2024 12:11 PM EDT) Only the most recent of2 resultswithin the time period is included. Culture Sterile after 5 days 10/23/2024 7:06 AM EDT [facility] Blood Blood specimen / Unknown 10/18/2024 12:11 PM EDT 10/18/2024 12:42 PM EDT Comment:Blood Hadley Johnson MD LAB BLOOD ORDERABLES [facility] [address] * (ABNORMAL) B-Hydroxybutyrate (10/18/2024 12:09 PM EDT) B-Hydroxybutyrate 0.30(H) <0.28 mmol/L 10/18/2024 2:02 PM EDT [facility] Comment: In the presence of uncontrolled [...] MD LAB BLOOD ORDERABLES Performing Organization Address City/[facility] Co de Phone Number [facility] [address] [place] [address], from Last 3 Months Additional Health Concerns [...]
--- OUTSIDE RECORDS SUMMARY | 2024-10-26 11:20 | XMS_ITS | Clinical Summary ---
Author Organization [facility] Address [address] [place] [address] Care Team Providers Care Blaster Helper Name Role Phone Unavailable Primary Care Provider [...] Documents on File Type Date Recorded Patient Broadcast Field Supervisor Expl anation Health Care Decision (hx) 02/27/2023 HE ALTH CARE PROXY Health Care Decision (hx) 02/27/2023 HE ALTH CARE PROXY Health Care Decision (hx) 02/27/2023 HE ALTH CARE PROXY
--- OUTSIDE RECORDS SUMMARY | 2024-10-26 11:21 | XMS_ITS | Encounter Summary ---
Author Organization [facility] Address [address] [place] [address] Phone Care Team Providers Care Underground Distribution Engineer Name Role Phone Joanna Angeles MD Primary Care Provider [phone] Reason for Visit * Reason Comments Med Refill Encounter Details Date Type Department Care Team ([facility] st Contact Info) Description 06/09/2023 Refill [facility] [address] [place] [address] Ahmet Oviedo MD [address] [facility] [address] [place] [address] Social History Tobacco Use Types [...] on filedocumented in this encounter Care Teams Underground Distribution Engineer Relationship Specialty Start Date End Date Joanna Angeles MD [address] [facility] [address] [place] [address] PCP - General Family Medicine 02/17/23 documented as of this encounter
== END 2024-10-26 10:58 | disposition home or self-care (01) ==
LOC: HO.HKA 09:55
PROVIDERS: Visit Provider Internal Medicine Nephrology
DX: I12.9 Hypertensive chronic kidney disease with stage 1 through stage 4 chronic kidney disease, or unspecified chronic kidney disease (principal); N18.4 Chronic kidney disease, stage 4 (severe); N25.81 Secondary hyperparathyroidism of renal origin; E11.21 Type 2 diabetes mellitus with diabetic nephropathy; R60.9 Edema, unspecified
CPT/HCPCS: 99215

== ENCOUNTER → 2024-10-26 11:05 | Outpatient (BNV) | payer MEDICARE, SELFPAY | PROVIDERS: PCP Family Medicine; Visit Provider Radiology Diagnostic Radiology | DX: J81.0 Acute pulmonary edema (principal); J91.8 Pleural effusion in other conditions classified elsewhere | CPT/HCPCS: 71046 ==

== ENCOUNTER 2024-11-08 13:33 | Outpatient (REF) | payer MEDICARE, SELFPAY ==
--- OUTSIDE RECORDS SUMMARY | 2024-11-08 16:37 | XMS_ITS | Clinical Summary ---
Author Organization [facility] Address [address] [place] [address] Care Team Providers Care Rock Duster Name Role Phone Unavailable Primary Care Provider Unavailabl e Social History Tobacco Use Types Packs/Day Years Used Date Smoking Tobacco: Never Assessed Sex and Gender Information Value Date Recorded Sex Assigned at Not on file Legal Sex Male 9:49 PM EST Gender Identity Not on file Sexual Orientation Not on file Plan of Treatment Health Maintenance Due Date Last Done Comments Diabetes: Annual Foot Exam 1965 Diabetes: Annual Retina Eye Exam 1965 DTaP,Tdap,and Td Vaccines (1 - Tdap) 1972 Pneumococcal Vaccine: 50+ Years (1 of 1 - PCV) 2003 Zoster Vaccines (1 of 2) 2003 RSV Immunization Adult Patients (1 - Risk 60-74 years 1-dose series) 2013 Abdominal Aortic Aneurysm (AAA) Screen 06/28/2022 Cholesterol Screening (Lipid Panel) 06/28/2022 Colorectal Cancer Screening: Colonoscopy 06/28/2022 Depression Screening 06/28/2022 Falls Risk Assessment 06/28/2022 Hepatitis C Screening 06/28/2022 Social Influencers of Health Screening 06/28/2022 COVID-19 Vaccine ( season) 2024 Diabetes: Annual Urine Albumin-Creatinine Ratio (uACR) 10/26/2024 Diabetes: Blood Sugar Control Test (HGBA1C) 10/26/2024 Influenza Vaccine (Season Ended) 2025 Diabetes: Annual GFR (Glomerular Filtration Rate) 10/22/2025 10/22/2024, 10/22/2024, 10/20/2024, Additional history exists HIB Vaccines Aged Out No longer eligi [...] age to complete this topic Meningococcal B Vaccine Aged Out No l onger eligible based on patient's age to complete this topic RSV Immunization Patients Under 20 months Aged Out No longer eligible based on patient's age to complete this topic Varicella Vaccines Aged Out No longer eligible based on patient's age to complete this topic Advance Directives Documents on File Type Date Recorded Patient Quality Coordinator Expl anation Health Care Decision (hx) 02/27/2023 HE [facility]OX[facility] Health Care Decision (hx) 02/27/2023 HE ALTH CARE PROXY Health Care Decision (hx) 02/27/2023 HE ALTH CARE PROXY
--- OUTSIDE RECORDS SUMMARY | 2024-11-08 16:37 | XMS_ITS | Clinical Summary ---
Author Organization [facility] Address [address] [facility] [address] [place] [address] Phone Care Team Providers Care Envelope Patternmaker Name Role Phone Joanna Angeles MD Primary Care Provider [phone] Allergies Active Allergy Reactions Criticality Noted Date [...] Obesity 01/18/2014 05/16/2021 Urolithiasis 01/18/2014 05/16/2021 Immunizations Immunization Administration Dates Next Due Influenza (IM) Preservative [...] Diabetes: Visual Foot Exam 08/24/2020 Influenza Vaccine (Season Ended) 2025 06/12/2022, 06/18/2021, 06/04/2020, Additional history exists Pneumococcal Vaccine: 50+ Years Completed 04/15/2019, 03/05/2018, 02/25/2018, Additional history exists Pneumococcal Vaccine: Peds (0 to 5 Years) and At-Risk Patients (6 to 49 Years) Discontinued 04/15/2019, 03/05/2018, 02/25/2018, Additional history exists Hepatitis B Vaccine Aged Out No longe r eligible based on patient's age to complete this topic Procedures Procedure Name Priority Date/Time Associated Diagnosis Comments HEMOGLOBIN A1C Routine 03/21/2019 2:49 PM EDT from Last 3 Months or Most Recently Relevant to Health Maintenance Results * (ABNORMAL) Hemoglobin A1c (03/21/2019 2:49 PM EDT) Hemoglobin A1C 10.0(H) (4-6) % [facility] 3 Comment: HEMOGLOBIN A1C(%) ?? GLUCOSE CONTROL INDEX ?<6% ? EXCELLENT ?6-7% ?VERY GOOD ?7-8% ?GOOD ?8-10% ? FAIR ?>10% ?POOR Hemoglobin (Hb) A1c testing is performed by Rita Clau-quant immunoassay. Any cause of shortened erythrocyte survival will reduce exposure of erythrocytes to glucose with a consequent decrease in Hb A1c (%). Testing performed or reported by ~[facility], ~a Service of [facility], ~[address] [place] [id number]~ 03/21/2019 2:49 PM EDT us Chris Martínez MD LAB BLOOD ORDERABLES Final Resul t [facility] 3 from Last 3 Months or Most Recently Relevant to Health Maintenance Insurance [facility] Medicare [facility] Medicare Care Teams Envelope Patternmaker Relationship Specialty Start Date End Date Joanna Angeles MD [id number] [id number] PCP - General Family Medicine 02/17/23
--- OUTSIDE RECORDS SUMMARY | 2024-11-08 16:38 | XMS_ITS | Data Portability ---
Author Organization [facility], Main Office Address [address] [facility] [address] [place] [address] Care Team Providers Care Bowling Floor Manager Name Role Phone [facility] Rehab JESUS RUBIO Phys. Med. & Rehab [phone] JONNA BATRES Neon Installer [facility] Taxicab Starter [phone] RAHUL DIAL Department Traffic Freight Router CARLOS MARTÍNEZ Tab Machine Operator SANDEE ARRIAGA Test Skein Winder PEE JOHNSON Substation Engineer VIVI DE Primary Care Provider ARA HOGUE Urologist Assessment No assessment recorded. Plan of Treatment Reminders Order Date Submit Date Provider Last Modified By Organization Details Last Modified Time Details Appointments FOLLOW UP 30MIN 2024 03:45P M Lorenzo Quinteros PA-C Not available Not available Not available Lab urinal ysis comple te, reflex cultur e 2024 025 [employer] [facility], [facility] [place], [address], 11/02/2024 10:51:56 CBC w/ auto diff 2024 025 [employer] [facility], [address] [place], [address], 11/02/2024 10:51:56 CMP, serum or plasma 2024 025 [facility], [address] [place], [address], 11/02/2024 10:51:56 procal citoni n, serum 2024 025 [facility], [address] [place], [address], 11/02/2024 10:51:56 cultur e, blood 2024 025 [employer] [facility], [address] [facility], [place], [address], 11/02/2024 11:01:20 pro BNP (pro B-type natriu retic peptid e), serum or plasma 2024 025 [facility], [address] [place], [address], 11/02/2024 10:51:56 uric acid, serum or plasma 2024 025 [facility], [address], [address], [place], [address], 09/11/2024 16:05:42 alkali ne phosph atase, serum or plasma 2024 025 [facility] (Centralized Electronic Ordering - All Locations), Patient Can Go To The Location Of Their Choice, 08/22/2024 17:17:37 gamma- glutam yl transf erase (ggt), serum 2024 025 [facility] (Centralized Electronic Ordering - All Locations), Patient Can Go To The Location Of Their Choice, 09/11/2024 16:05:42 CMP, serum or plasma 2024 025 [facility], [address], [address], [place], [address], 09/11/2024 16:05:35 TSH, ultra- sensit erik, serum 2024 025 [facility] (Centralized Electronic Ordering - All Locations), Patient Can Go To The Location Of Their Choice, 09/11/2024 16:05:41 magnes ium, serum or plasma 2024 025 [facility], [address], [address], [place], [address], 09/11/2024 16:05:44 potass ium, serum or plasma 2024 025 [facility] (Centralized Electronic Ordering - All Locations), Patient Can Go To The Location Of Their Choice, 09/11/2024 16:05:43 lipid panel, serum 2024 025 [email or web address] s [facility], [address], [address], [place], [address], 09/02/2024 15:30:39 albumi n/crea tinine , mass ratio, urine 2024 025 [facility] (Centralized Electronic Ordering - All Locations), Patient Can Go To The Location Of Their Choice, 09/11/2024 16:05:37 ferrit in, serum or plasma 2024 025 [facility], [address], [address], [place], [address], 09/11/2024 16:05:44 retic count, blood 2024 025 [facility], [address], [address], [place], [address], 09/11/2024 16:05:45 CBC w/ auto diff 2024 025 [facility], [address], [address], [place], [address], 09/11/2024 16:05:34 iron + total iron-b inding capaci ty (TIBC) , serum 2024 [facility], [address], [address], [place], [address], 09/11/2024 16:05:36 transf johnathan recept or, solubl e, quant, serum 2024 025 [facility] (Centralized Electronic Ordering - All Locations), Patient Can Go To The Location Of Their Choice, 09/11/2024 16:05:40 cobala min and folate panel, serum 2024 [facility] (Centralized Electronic Ordering - All Locations), Patient Can Go To The Location Of Their Choice, 09/11/2024 16:05:38 vitami n D, 25-hyd apolinar, total, serum 2024 [facility] (Centralized Electronic Ordering - All Locations), Patient Can Go To The Location Of Their Choice, 09/11/2024 16:05:39 1,25-d ihydro xyvita min D, QN, serum or plasma 2024 [facility] (Centralized Electronic Ordering - All Locations), Patient Can Go To The Location Of Their Choice, 09/11/2024 16:05:39 CMP, serum or plasma 2024 [facility] (Centralized Electronic Ordering - All Locations), Patient Can Go To The Location Of Their Choice, 08/04/2024 08:08:28 BNP (B-typ e natriu retic peptid e), serum or plasma 2024 025 [facility] (Centralized Electronic Ordering - All Locations), Patient Can Go To The Location Of Their Choice, 08/04/2024 08:08:30 urinal ysis comple te, reflex cultur e 2024 025 [facility] (Centralized Electronic Ordering - All Locations), Patient Can Go To The Location Of Their Choice, 08/04/2024 08:08:29 Referral wound care referr al 2023 024 odalis [email or web address] [facility], [address] [place] [address] [place], [address], 06/11/2024 11:10:30 podiat rist referr al 2023 024 [email or web address] Not available 07/06/2024 13:38:05 Procedures None record ed. Surgeries None record ed. Imaging XR, chest, 2 view 2024 025 [email or web address] [facility] (Imaging), [address] [place] [address], [place], [address], 11/02/2024 10:57:07 Medication Orders cefpod oxime 200 mg tablet 2024 025 [facility]/Pharmacy #2339, [address] [place], [address], 11/02/2024 10:50:46 Zithro max Z-Jase 250 mg tablet 2024 025 [facility]/Pharmacy #2339, [address] [facility], [place], [address], 11/02/2024 10:50:49 amlodi pine 10 mg tablet 2024 025 [facility]/Pharmacy #1130, [phone] [place], [address], 08/22/2024 17:21:09 furose mide 20 mg tablet 2024 025 [facility]/Pharmacy #1130, [phone] [place], [address], 08/22/2024 15:27:40 Bactri m DS 800 mg-160 mg tablet 2023 025 [facility]/Pharmacy #1130, [phone] [place], [address], 08/02/2024 16:10:51 Patient TargetsNo targets recorded. Patient Instructions Encounter Date Encounter Id Patient Instructions Last Modified By Organization Details Last Modified Time 08/03/2024 [id number] leg and ankle edema: care instructions [email or web address] Not available 08/03/2024 15:12:18 08/22/2024 [id number] gout: care instructions [email or web address] Not available 08/22/2024 [...] to avoid with kidney disease: care instructions [email or web address] Not available 08/22/2024 17:17:19 11/02/2024 [id number] At [facility] follow up visit, all current and discharge medications (OTC, herbal therapies, supplements) reviewed and reconciled with patient and or caregiver, including potential side effects, drug interactions, instructions, and the consequences of not taking medication. Reviewed potential barriers to medication adherence, such as side effects from medication or cost of medication. [email or web address] Not available 11/02/2024 10:50:48 Reason for Referral Substation Engineer Referral for Ulce r of foot Referring Physician: Vivi De, Family Medicine, Encounter Date: 05/17/2024 Referring Physician: Becki De Family Medicine, Encounter Date: 05/27/2024 Results Created Date Observation Date Name Description Value Unit Range Abnormal Flag Note LastModifiedBy Organization Detail LastModifiedTime 08/03/1908/04/2024 COMP. METAB OLIC PANEL (14) glucose 180 mg/dL 70-99 above high normal Not Available [facility] ([facility]) [address] [facility], [place], [address], 08/04/2024 08:08:28 08/03/19 25 08/04/2024 COMP. METAB OLIC PANEL (14) BUN 40 mg/dL 8-27 above high normal Not Available [facility] ([facility]) [address] [facility] [place], [address], 08/04/2024 08:08:28 08/03/19 25 08/04/2024 COMP. METAB OLIC PANEL (14) creatinine 3.46 mg/dL 0.76-1 .27 above high normal Not Available [facility] ([facility]) [address] [facility] [place], [address], 08/04/2024 08:08:28 08/03/19 25 08/04/2024 COMP. METAB OLIC PANEL (14) eGFR 18 mL/mi n/1.7 3 >59 below low normal Not Available [facility] ([facility]) [address] [facility] [place], [address], 08/04/2024 08:08:28 08/03/19 25 08/04/2024 COMP. METAB OLIC PANEL (14) BUN/creatini ne ratio 12 10-24 normal Not Available [facility] ([facility]) [address] [facility] [place], [address], 08/04/2024 08:08:28 08/03/19 25 08/04/2024 COMP. METAB OLIC PANEL (14) sodium 145 mmol/ L 134-14 4 above high normal Not Available [facility] ([facility]) [address] [facility] [place], [address], 08/04/2024 08:08:28 08/03/19 25 08/04/2024 COMP. METAB OLIC PANEL (14) potassium 5.4 mmol/ L 3.5-5. 2 above high normal Not Available [facility] ([facility]) [address] [facility] [place], [address], 08/04/2024 08:08:28 08/03/19 25 08/04/2024 COMP. METAB OLIC PANEL (14) chloride 111 mmol/ L 96-106 above high normal Not Available [facility] ([facility]) [address] [place], [address], 08/04/2024 08:08:28 08/03/19 25 08/04/2024 COMP. METAB OLIC PANEL (14) carbon dioxide, total 19 mmol/ L 20-29 below low normal Not Available [facility] ([facility]) [address] [place], [address], 08/04/2024 08:08:28 08/03/19 25 08/04/2024 COMP. METAB OLIC PANEL (14) calcium 8.1 mg/dL 8.6-10 .2 below low normal Not Available [facility] ([facility]) [address] [place], [address], 08/04/2024 08:08:28 08/03/19 25 08/04/2024 COMP. METAB OLIC PANEL (14) protein, total 6.3 g/dL 6.0-8. 5 normal Not Available [facility] ([facility]) [address] [place], [address], 08/04/2024 08:08:28 08/03/19 25 08/04/2024 COMP. METAB OLIC PANEL (14) albumin 3.3 g/dL 3.8-4. 8 below low normal Not Available [facility] ([facility]) [address], [address], 08/04/2024 08:08:28 08/03/19 25 08/04/2024 COMP. METAB OLIC PANEL (14) globulin, total 3.0 g/dL 1.5-4. 5 Not Available [facility] ([facility]) [address] [place], [address], 08/04/2024 08:08:28 08/03/19 25 08/04/2024 COMP. METAB OLIC PANEL (14) bilirubin, total <0.2 mg/dL 0.0-1. 2 Not Available [facility] ([facility]) [address] [place], [address], 08/04/2024 08:08:28 08/03/19 25 08/04/2024 COMP. METAB OLIC PANEL (14) alkaline phosphatase 182 IU/L 44-121 above high normal Not Available [facility] ([facility]) [address], [place], [address], 08/04/2024 08:08:28 08/03/19 25 08/04/2024 COMP. METAB OLIC PANEL (14) AST (SGOT) 20 IU/L 0-40 normal Not Available [facility] ([facility]) [address], [place], [address], 08/04/2024 08:08:28 08/03/19 25 08/04/2024 COMP. METAB OLIC PANEL (14) ALT (SGPT) 16 IU/L 0-44 normal Not Available [facility] ([facility]) [address] [place], [address], 08/04/2024 08:08:28 08/03/19 25 08/04/2024 UA/M W/RFL X CULTU REBARBARA NE specific gravity 1.018 1.005- 1.030 normal Not Available [facility] ([facility]) [address] [facility] [place], [address], 08/04/2024 08:08:29 08/03/19 25 08/04/2024 UA/M W/RFL X CULTU RECARMITAI NE pH 6.5 5.0-7. 5 normal Not Available [facility] ([facility]) [address] [facility], [place], [address], 08/04/2024 08:08:29 08/03/19 25 08/04/2024 UA/M W/RFL X CULTU RE, BARBARA NE urine-color Yellow yellow Not Available [facility] ([facility]) [address] [place], [address], 08/04/2024 08:08:29 08/03/19 25 08/04/2024 UA/M W/RFL X CULTU RE, ROUTI NE appearance Clear clear Not Available [facility] ([facility]) [address] [place], [address], 08/04/2024 08:08:29 08/03/19 25 08/04/2024 UA/M W/RFL X CULTU RE, BARBARA NE WBC esterase Negati ve negati ve Not Available [facility] ([facility]) [address] [facility], [place], [address], 08/04/2024 08:08:29 08/03/19 25 08/04/2024 UA/M W/RFL X CULTU RE, BARBARA NE protein 4+ negati ve/tra ce abnormal Not Available [facility] ([facility]) [address] [place], [address], 08/04/2024 08:08:29 08/03/19 25 08/04/2024 UA/M W/RFL X CULTU REBARBARA NE glucose 2+ negati ve abnormal Not Available [facility] ([facility]) [address] [place], [address], 08/04/2024 08:08:29 08/03/19 25 08/04/2024 UA/M W/RFL X CULTU RE, BARBARA NE ketones Negati ve negati ve Not Available [facility] ([facility]) [address] [place], [address], 08/04/2024 08:08:29 08/03/19 25 08/04/2024 UA/M W/RFL X CULTU RE, BARBARA NE occult blood Trace negati ve abnormal Not Available [facility] ([facility]) [address] [facility], [place], [address], 08/04/2024 08:08:29 08/03/19 25 08/04/2024 UA/M W/RFL X CULTU RE, ROUTI NE bilirubin Negati ve negati ve Not Available [facility] ([facility]) [address] [facility], [place], [address], 08/04/2024 08:08:29 08/03/19 25 08/04/2024 UA/M W/RFL X CULTU RE, ROUTI NE urobilinogen ,semi-qn 0.2 mg/dL 0.2-1. 0 normal Not Available [facility] ([facility]) [address] [facility], [place], [address], 08/04/2024 08:08:29 08/03/19 25 08/04/2024 UA/M W/RFL X CULTU RE, ROUTI NE nitrite, urine Negati ve negati ve Not Available [facility] ([facility]) [address] [facility], [place], [address], 08/04/2024 08:08:29 08/03/19 25 08/04/2024 UA/M W/RFL X CULTU RE, ROUTI NE microscopic examination See below: Micro scopi c was indic ated and was perfo rmed. Not Available [facility] ([facility]) [address] [facility], [place], [address], 08/04/2024 08:08:29 08/03/19 25 08/04/2024 UA/M W/RFL X CULTU RE, ROUTI NE WBC 0-5 /hpf 0 - 5 Not Available [facility] ([facility]) [address] [facility], [place], [address], 08/04/2024 08:08:29 08/03/19 25 08/04/2024 UA/M W/RFL X CULTU RE, ROUTI NE RBC None seen /hpf 0 - 2 Not Available [facility] ([facility]) [address], [place], [address], 08/04/2024 08:08:29 08/03/19 25 08/04/2024 UA/M W/RFL X CULTU RE, ROUTI NE epithelial cells (non renal) None seen /hpf 0 - 10 Not Available [facility] ([facility]) [address] [facility], [place], [address], 08/04/2024 08:08:29 08/03/19 25 08/04/2024 UA/M W/RFL X CULTU RE, ROUTI NE epithelial cells (renal) LICENSED GUIDE Not Available [facility] ([facility]) [address] [facility], [place], [address], 08/04/2024 08:08:29 08/03/19 25 08/04/2024 UA/M W/RFL X CULTU RE, ROUTI NE casts None seen /lpf none seen Not Available [facility] ([facility]) [address] [facility], [place], [address], 08/04/2024 08:08:29 08/03/19 25 08/04/2024 UA/M W/RFL X CULTU RE, ROUTI NE cast type LICENSED GUIDE Not Available [facility] ([facility]) [address] [facility], [place], [address], 08/04/2024 08:08:29 08/03/19 25 08/04/2024 UA/M W/RFL X CULTU RE, ROUTI NE crystals LICENSED GUIDE Not Available [facility] ([facility]) [address] [facility], [place], [address], 08/04/2024 08:08:29 08/03/19 25 08/04/2024 UA/M W/RFL X CULTU RE, ROUTI NE crystal type LICENSED GUIDE Not Available [facility] ([facility]) [address] [facility], [place], [address], 08/04/2024 08:08:29 08/03/19 25 08/04/2024 UA/M W/RFL X CULTU RE, ROUTI NE mucus threads LICENSED GUIDE Not Available [facility] ([facility]) [address] [facility], [place], [address], 08/04/2024 08:08:29 08/03/19 25 08/04/2024 UA/M W/RFL X CULTU RE, ROUTI NE bacteria None seen none seen/f ew Not Available [facility] ([facility]) [address] [facility], [place], [address], 08/04/2024 08:08:29 08/03/19 25 08/04/2024 UA/M W/RFL X CULTU RE ROUTI NE yeast LICENSED GUIDE Not Available [facility] ([facility]) [address] [facility], [place], [address], 08/04/2024 08:08:29 08/03/19 25 08/04/2024 UA/M W/RFL X CULTU RE, ROUTI NE trichomonas LICENSED GUIDE Not Available [facility] ([facility]) [address] [facility], [place], [address], 08/04/2024 08:08:29 08/03/19 25 08/04/2024 UA/M W/RFL X CULTU RE ROUTMeek NE comment LICENSED GUIDE Not Available [facility] ([facility]) [address] [place], [address], 08/04/2024 08:08:29 08/03/19 25 08/04/2024 UA/M W/RFL X CULTU RE ROUTMeek NE microscopic examination LICENSED GUIDE Not Available [facility] ([facility]) [address] [place], [address], 08/04/2024 08:08:29 08/03/19 25 08/04/2024 UA/M W/RFL X CULTU RE, ROUTI NE urinalysis reflex Commen t This speci men will not refle x to a Urine Cultu re. Not Available [facility] ([facility]) [address] [place], [address], 08/04/2024 08:08:29 08/03/19 25 08/04/2024 B-TYP E NATRI URETI C PEPTI DE B-type natriuretic peptide 145.8 pg/mL 0.0-10 0.0 above high normal Sieme ns [facility] XP metho dolog y Not Available [facility] ([facility]) [address] [place], [address], 08/04/2024 08:08:30 09/08/19 25 09/08/2024 CBC WITH DIFFE RENTI AL/PL ATELE T WBC 7.8 x10e3 /uL 3.4-10 .8 normal Not Available [facility] ([facility]) [address] [place], [address], 09/11/2024 16:05:34 09/08/19 25 09/08/2024 CBC WITH DIFFE RENTI AL/PL ATELE T RBC 3.50 x10e6 /uL 4.14-5 .80 below low normal Not Available [facility] ([facility]) [address] [place], [address], 09/11/2024 16:05:34 09/08/19 25 09/08/2024 CBC WITH DIFFE RENTI AL/PL ATELE T hemoglobin 11.1 g/dL 13.0-1 7.7 below low normal Not Available [facility] ([facility]) [address] [place], [address], 09/11/2024 16:05:34 09/08/19 25 09/08/2024 CBC WITH DIFFE RENTI AL/PL ATELE T hematocrit 33.3 % 37.5-5 1.0 below low normal Not Available [facility] ([facility]) [address] [place], [address], 09/11/2024 16:05:34 09/08/19 25 09/08/2024 CBC WITH DIFFE RENTI AL/PL ATELE T MCV 95 fL 79-97 normal Not Available [facility] ([facility]) [address] [facility], [place], [address], 09/11/2024 16:05:34 09/08/19 25 09/08/2024 CBC WITH DIFFE RENTI AL/PL ATELE T MCH 31.7 pg 26.6-3 3.0 normal Not Available [facility] ([facility]) [address] [place], [address], 09/11/2024 16:05:34 09/08/19 25 09/08/2024 CBC WITH DIFFE RENTI AL/PL ATELE T MCHC 33.3 g/dL 31.5-3 5.7 normal Not Available [facility] ([facility]) [address] [facility], [place], [address], 09/11/2024 16:05:34 09/08/19 25 09/08/2024 CBC WITH DIFFE RENTI AL/PL ATELE T RDW 14.0 % 11.6-1 5.4 Not Available [facility] ([facility]) [address] [facility], [place], [address], 09/11/2024 16:05:34 09/08/19 25 09/08/2024 CBC WITH DIFFE RENTI AL/PL ATELE T platelets 233 x10e3 /uL 150-45 0 normal Not Available [facility] ([facility]) [address] [place], [address], 09/11/2024 16:05:34 09/08/19 25 09/08/2024 CBC WITH DIFFE RENTI AL/PL ATELE T neutrophils 68 % not estab. normal Not Available [facility] ([facility]) [address] [facility], [place], [address], 09/11/2024 16:05:34 09/08/19 25 09/08/2024 CBC WITH DIFFE RENTI AL/PL ATELE T lymphs 18 % not estab. normal Not Available [facility] ([facility]) [address] [facility], [place], [address], 09/11/2024 16:05:34 09/08/19 25 09/08/2024 CBC WITH DIFFE RENTI AL/PL ATELE T monocytes 9 % not estab. normal Not Available [facility] ([facility]) [address] [facility], [place], [address], 09/11/2024 16:05:34 09/08/19 25 09/08/2024 CBC WITH DIFFE RENTI AL/PL ATELE T eos 4 % not estab. normal Not Available [facility] ([facility]) [address] [place], [address], 09/11/2024 16:05:34 09/08/19 25 09/08/2024 CBC WITH DIFFE RENTI AL/PL ATELE T basos 0 % not estab. normal Not Available [facility] ([facility]) [address] [place], [address], 09/11/2024 16:05:34 09/08/19 25 09/08/2024 CBC WITH DIFFE RENTI AL/PL ATELE T immature cells LICENSED GUIDE Not Available [facility] ([facility]) [address] [place], [address], 09/11/2024 16:05:34 09/08/19 25 09/08/2024 CBC WITH DIFFE RENTI AL/PL ATELE T neutrophils (absolute) 5.3 x10e3 /uL 1.4-7. 0 normal Not Available [facility] ([facility]) [address] [place], [address], 09/11/2024 16:05:34 09/08/19 25 09/08/2024 CBC WITH DIFFE RENTI AL/PL ATELE T lymphs (absolute) 1.4 x10e3 /uL 0.7-3. 1 normal Not Available [facility] ([facility]) [address] [facility], [place], [address], 09/11/2024 16:05:34 09/08/19 25 09/08/2024 CBC WITH DIFFE RENTI AL/PL ATELE T monocytes(ab solute) 0.7 x10e3 /uL 0.1-0. 9 normal Not Available [facility] ([facility]) [address] [facility], [place], [address], 09/11/2024 16:05:34 09/08/19 25 09/08/2024 CBC WITH DIFFE RENTI AL/PL ATELE T eos (absolute) 0.3 x10e3 /uL 0.0-0. 4 normal Not Available [facility] ([facility]) [address] [place], [address], 09/11/2024 16:05:34 09/08/19 25 09/08/2024 CBC WITH DIFFE RENTI AL/PL ATELE T baso (absolute) 0.0 x10e3 /uL 0.0-0. 2 normal Not Available [facility] ([facility]) [address] [place], [address], 09/11/2024 16:05:34 09/08/19 25 09/08/2024 CBC WITH DIFFE RENTI AL/PL ATELE T immature granulocytes 1 % not estab. Not Available [facility] ([facility]) [address] [place], [address], 09/11/2024 16:05:34 09/08/19 25 09/08/2024 CBC WITH DIFFE RENTI AL/PL ATELE T immature grans (abs) 0.1 x10e3 /uL 0.0-0. 1 Not Available [facility] ([facility] [facility]) [address] [place], [address], 09/11/2024 16:05:34 09/08/19 25 09/08/2024 CBC WITH DIFFE RENTI AL/PL ATELE T NRBC LICENSED GUIDE Not Available [facility] ([facility]) [address] [facility], [place], [address], 09/11/2024 16:05:34 09/08/19 25 09/08/2024 CBC WITH DIFFE RENTI AL/PL ATELE T hematology comments: LICENSED GUIDE Not Available [facility] ([facility]) [address] [facility] [place], [address], 09/11/2024 16:05:34 09/08/19 25 09/08/2024 COMP. METAB OLIC PANEL (14) glucose 197 mg/dL 70-99 above high normal Not Available [facility] ([facility]) [address] [facility] [place], [address], 09/11/2024 16:05:35 09/08/19 25 09/08/2024 COMP. METAB OLIC PANEL (14) BUN 50 mg/dL 8-27 above high normal Not Available [facility] ([facility]) [address] [facility] [place], [address], 09/11/2024 16:05:35 09/08/19 25 09/08/2024 COMP. METAB OLIC PANEL (14) creatinine 3.72 mg/dL 0.76-1 .27 above high normal Not Available [facility] ([facility]) [address] [facility], [place], [address], 09/11/2024 16:05:35 09/08/19 25 09/08/2024 COMP. METAB OLIC PANEL (14) eGFR 17 mL/mi n/1.7 3 >59 below low normal Not Available [facility] ([facility]) [address] [facility] [place], [address], 09/11/2024 16:05:35 09/08/19 25 09/08/2024 COMP. METAB OLIC PANEL (14) BUN/creatini ne ratio 13 10-24 normal Not Available [facility] ([facility]) [address] [place], [address], 09/11/2024 16:05:35 09/08/19 25 09/08/2024 COMP. METAB OLIC PANEL (14) sodium 140 mmol/ L 134-14 4 normal Not Available [facility] ([facility]) [address] [place], [address], 09/11/2024 16:05:35 09/08/19 25 09/08/2024 COMP. METAB OLIC PANEL (14) potassium 5.6 mmol/ L 3.5-5. 2 above high normal Not Available [facility] ([facility]) [address] [place], [address], 09/11/2024 16:05:35 09/08/19 25 09/08/2024 COMP. METAB OLIC PANEL (14) chloride 109 mmol/ L 96-106 above high normal Not Available [facility] ([facility]) [address] [place], [address], 09/11/2024 16:05:35 09/08/19 25 09/08/2024 COMP. METAB OLIC PANEL (14) carbon dioxide, total 16 mmol/ L 20-29 below low normal Not Available [facility] ([facility]) [address] [place], [address], 09/11/2024 16:05:35 09/08/19 25 09/08/2024 COMP. METAB OLIC PANEL (14) calcium 8.6 mg/dL 8.6-10 .2 normal Not Available [facility] ([facility]) [address] [place], [address], 09/11/2024 16:05:35 09/08/19 25 09/08/2024 COMP. METAB OLIC PANEL (14) protein, total 6.9 g/dL 6.0-8. 5 normal Not Available [facility] ([facility]) [address] [facility], [address], 09/11/2024 16:05:35 09/08/19 25 09/08/2024 COMP. METAB OLIC PANEL (14) albumin 3.8 g/dL 3.8-4. 8 normal Not Available [facility] ([facility]) [address] [facility], [address], 09/11/2024 16:05:35 09/08/19 25 09/08/2024 COMP. METAB OLIC PANEL (14) globulin, total 3.1 g/dL 1.5-4. 5 Not Available [facility] ([facility]) [address] [facility], [address], 09/11/2024 16:05:35 09/08/19 25 09/08/2024 COMP. METAB OLIC PANEL (14) bilirubin, total 0.3 mg/dL 0.0-1. 2 normal Not Available [facility] ([facility]) [address] [facility], [address], 09/11/2024 16:05:35 09/08/19 25 09/08/2024 COMP. METAB OLIC PANEL (14) alkaline phosphatase 225 IU/L 44-121 above high normal Not Available [facility] ([facility]) [address] [facility], [address], 09/11/2024 16:05:35 09/08/19 25 09/08/2024 COMP. METAB OLIC PANEL (14) AST (SGOT) 17 IU/L 0-40 normal Not Available [facility] ([facility]) [address] [facility], [address], 09/11/2024 16:05:35 09/08/19 25 09/08/2024 COMP. METAB OLIC PANEL (14) ALT (SGPT) 18 IU/L 0-44 normal Not Available [facility] ([facility]) [address] [place], [address], 09/11/2024 16:05:35 09/08/19 25 09/09/2024 COMP. METAB OLIC PANEL (14) hemoglobin A1C 7.5 % 4.8-5. 6 above high normal Predi abete s: 5.7 - 6.4 Diabe rocky: >6.4 Glyce mary contr ol for adult s with diabe rocky: <7.0 Not Available [facility] ([facility]) [address] [place], [address], 09/11/2024 16:05:35 09/08/19 25 09/08/2024 LIPID PANEL cholesterol, total 187 mg/dL 100-19 9 normal Not Available [facility] ([facility]) [address] [place], [address], 09/11/2024 16:05:35 09/08/19 25 09/08/2024 LIPID PANEL triglyceride s 121 mg/dL 0-149 normal Not Available [facility] ([facility]) [address] [place], [address], 09/11/2024 16:05:35 09/08/19 25 09/08/2024 LIPID PANEL HDL cholesterol 37 mg/dL >39 below low normal Not Available [facility] ([facility]) [address] [place], [address], 09/11/2024 16:05:35 09/08/19 25 09/08/2024 LIPID PANEL VLDL cholesterol leisa 22 mg/dL 5-40 Not Available [facility] ([facility]) [address] [place], [address], 09/11/2024 16:05:35 09/08/19 25 09/08/2024 LIPID PANEL LDL chol calc ([facility]) 128 mg/dL 0-99 above high normal Not Available [facility] ([facility]) [address] [place], [address], 09/11/2024 16:05:35 09/08/19 25 09/08/2024 LIPID PANEL LDL calc comment: LICENSED GUIDE Not Available [facility] ([facility]) [address] [facility], [place], [address], 09/11/2024 16:05:35 09/08/19 25 09/09/2024 IRON AND TIBC iron bind.cap.(TI BC) 296 ug/dL 250-45 0 normal Not Available [facility] ([facility]) [address] [facility], [place], [address], 09/11/2024 16:05:36 09/08/19 25 09/09/2024 IRON AND TIBC UIBC 196 ug/dL 111-34 3 normal Not Available [facility] ([facility]) [address] [facility], [place], [address], 09/11/2024 16:05:36 09/08/19 25 09/09/2024 IRON AND TIBC iron 100 ug/dL 38-169 normal Not Available [facility] ([facility]) [address] [facility], [place], [address], 09/11/2024 16:05:36 09/08/19 25 09/09/2024 IRON AND TIBC iron saturation 34 % 15-55 normal Not Available [facility] ([facility]) [address] [place], [address], 09/11/2024 16:05:36 09/08/19 25 09/09/2024 ALBUM IN/CR EATIN INE RATIO ,URIN E creatinine, urine 147.8 mg/dL not estab. normal Not Available [facility] ([facility]) [address] [place], [address], 09/11/2024 16:05:37 09/08/19 25 09/09/2024 ALBUM IN/CR EATIN INE RATIO ,URIN E albumin, urine 6042.6 ug/mL not estab. Resul ts confi rmed on dilut ion. Not Available [facility] ([facility]) [address] [facility], [place], [address], 09/11/2024 16:05:37 09/08/19 25 09/09/2024 ALBUM IN/CR EATIN INE RATIO ,URIN E alb/creat ratio 4088 mg/g_ creat 0-29 above high normal [place]: 0 - 29 Moder ately incre ased: 30 - 300 Sever richard incre ased: >300 Not Available [facility] ([facility]) [address] [facility], [place], [address], 09/11/2024 16:05:37 09/08/19 25 09/09/2024 VITAM IN B12 AND FOLAT E vitamin B12 821 pg/mL 232-12 45 normal Not Available [facility] ([facility]) [address] [facility], [place], [address], 09/11/2024 16:05:38 09/08/19 25 09/09/2024 VITAM IN B12 AND FOLAT E folate (folic acid), serum 4.2 NG/mL >3.0 normal A serum folat e asuncion ntrat ion of less than 3.1 ng/mL is consi dered to repre sent clini leisa defic iency . Not Available [facility] ([facility]) [address] [facility], [place], [address], 09/11/2024 16:05:38 09/08/19 25 09/10/2024 CALCI TRIOL (1,25 DI-OH VIT D) calcitriol(1 ,25 di-oh vit D) 31.1 pg/mL 24.8-8 1.5 Not Available [facility] ([facility]) [address] [facility], [place], [address], 09/11/2024 16:05:39 09/08/19 25 09/09/2024 VITAM IN [...] 1. IOM (Inst itute of Medic ine). 2010. Dieta ry refer ence intak es for calci um and D. Millie caputo [place]: The [facility] . 2. Ashly huang [place], Chela grey [place], Todd off-F errar i BAILEY, et al. Evalu ation , treat ment, and preve ntion of vitam in D defic iency : an Endoc rine Socie ty clini leisa pract ice guide line. JCEM. 2010; 96(7) :1911 -30. Not Available [facility] ([facility]) [address] [place], [address], 09/11/2024 16:05:39 09/08/19 25 09/11/2024 SOLUB LE TRANS SHIRA N GIS CONSULTANT TOR soluble transferrin receptor 25.1 nmol/ L 12.2-2 7.3 Not Available [facility] ([facility]) [address] [place], [address], 09/11/2024 16:05:40 09/08/19 25 09/08/2024 TSH RFX ON ABNOR MAL TO FREE T4 TSH 2.360 uIU/m L 0.450- 4.500 normal Not Available [facility] ([facility]) [address] [facility], [place], [address], 09/11/2024 16:05:41 09/08/19 25 09/09/2024 GGT WITH REFLE X AMYLA SE/LI PASE GGT 104 IU/L 0-65 above high normal Not Available [facility] ([facility]) [address] [place], [address], 09/11/2024 16:05:41 09/08/19 25 09/09/2024 GGT WITH REFLE X AMYLA SE/LI PASE amylase 79 U/L 31-110 normal Not Available [facility] ([facility]) [address] [place], [address], 09/11/2024 16:05:41 09/08/19 25 09/09/2024 GGT WITH REFLE X AMYLA SE/LI PASE lipase 41 U/L 13-78 normal Not Available [facility] ([facility]) [address] [place], [address], 09/11/2024 16:05:41 09/08/19 25 09/09/2024 URIC ACID uric acid 5.0 mg/dL 3.8-8. 4 normal Thera peuti c targe t for gout patie nts: <6.0 Not Available [facility] ([facility]) [address] [place], [address], 09/11/2024 16:05:42 09/08/19 25 09/09/2024 POTAS SIUM, HEPAR IN PLASM A potassium, heparin plasma 5.4 mmol/ L 3.5-5. 2 above high normal Not Available [facility] ([facility]) [address] [place], [address], 09/11/2024 16:05:43 09/08/19 25 09/09/2024 MAGNE SIUM magnesium 1.5 mg/dL 1.6-2. 3 below low normal Not Available [facility] ([facility]) [address] [place], [address], 09/11/2024 16:05:44 09/08/19 25 09/08/2024 SHIRA TIN ferritin 155 NG/mL 30-400 normal Not Available [facility] ([facility]) [address] [place], [address], 09/11/2024 16:05:44 09/08/1909/08/2024 RETIC ULOCY TE COUNT reticulocyte count 1.8 % 0.6-2. 6 Not Available [facility] ([facility]) [address] [facility], [place], [address], 09/11/2024 16:05:45 09/08/1909/09/2024 PSA TOTAL (REFL EX TO FREE) reflex criteria COMMEN T The perce nt free PSA is perfo rmed on a refle x basis only when the total PSA is betwe en 4.0 and 10.0 ng/mL . Not Available [facility] ([facility]) [address] [facility], [place], [address], 09/14/2024 06:08:11 09/08/1909/14/2024 PSA TOTAL (REFL EX TO FREE) prostate [...] t be inter prete d as absol buckland evide nce of the prese nce or absen ce of dexter baum se. Not Available [facility] ([facility]) [address] [facility], [place], [address], 09/14/2024 06:08:11 09/08/19 25 09/10/2024 MITOC HONDR IAL (M2) ANTIB GISELL mitochondria l (M2) antibody <20.0 units 0.0-20 .0 Negat erik 0.0 - 20.0 Equiv ocal 20.1 - 24.9 Posit erik >24.9 Mitoc hondr ial (M2) Antib odies are found in 90-96 % of patie nts with prima ry bilia ry cirrh osis. Not Available [facility] ([facility]) [address] [facility], [place], [address], 09/14/2024 06:08:11 09/08/1909/12/2024 WRITT EN AUTHO RIZAT ION written authorizatio n COMMEN T Writt en Autho rizat ion Recei max. Autho rizat ion recei max from [facility] for Link Reque st on 09-12 Logge d by Kwaku Logan Not Available [facility] ([facility]) [address] [facility], [place], [address], 09/21/2024 14:06:26 09/08/1909/09/2024 WRITT EN AUTHO RIZAT ION written authorizatio n COMMEN T Writt en Autho rizat ion Recei max. Autho rizat ion recei max from [facility] for Link Reque st on 09-09 Logge d by Kwaku Logan Not Available [facility] ([facility]) [address] [facility], [place], [address], 09/14/2024 06:08:12 09/08/1909/19/2024 ALK PHOS ISOEN ZYME alkaline phosphatase COMMEN T IU/L Test not perfo rmed. Deter iorat ion occur red durin g speci men handl ing. Not Available [facility] ([facility]) [address] [facility], [place], [address], 09/21/2024 14:06:25 09/08/19 25 09/21/2024 ALK PHOS ISOEN ZYME liver fraction: COMMEN T % Test not perfo rmed. ALKPH prote in requi red to compl ete testi ng. Not Available [facility] ([facility]) [address] [place], [address], 09/21/2024 14:06:25 09/08/19 25 09/21/2024 ALK PHOS ISOEN ZYME bone fraction: COMMEN T % Test not perfo rmed. ALKPH prote in requi red to compl ete testi ng. Not Available [facility] ([facility]) [address] [place], [address], 09/21/2024 14:06:25 09/08/19 25 09/21/2024 ALK PHOS ISOEN ZYME intestinal frac.: COMMEN T % Test not perfo rmed. ALKPH prote in requi red to compl ete testi ng. Not Available [facility] ([facility]) [address] [place], [address], 09/21/2024 14:06:25 09/08/19 25 09/19/[address] PROBL EM request problem COMMEN T Test not perfo rmed. Deter iorat ion occur red durin g speci men handl ing. TEST: [id number] Alkal ine Phosp hatas e Panel : [id number] 2 Not Available [facility] ([facility]) [address] [place], [address], 09/21/2024 14:06:27 09/08/1909/21/[address] PROBL EM request problem COMMEN T Test not perfo rmed. TEST: 48632 9 Liver Fract ion: Panel : 49425 2 53084 0 Bone Fract ion: Panel : 07206 2 63384 1 Intes tinal Frac. : Panel : 82054 2 ALKPH prote in requi red to compl ete testi ng. Not Available [facility] ([facility]) [address] [place], [address], 09/21/2024 14:06:27 08/18/19 25 08/18/2024 US, echoc ardio gram No observ ation record ed. [email or web address] [facility] (Medical Records) [address] [place], [address], 08/23/2024 15:35:40 10/27/19 25 10/26/2024 XR, chest , 2 view No observ ation record ed. [email or web address] [facility] (Medical Records) [address] [facility], [place], [address], 11/02/2024 10:41:05 Result Notes None recorded. Problems Name Problem SNOMED Code Status Onset Date Resolution Date Notes Provider Name and Address Organization Details Recorded Time Counseli homa Completed 201102/07/2014 RECORDED 07/23/20 12 1:53PM BY CASIE AUSTIN MA, ANNOTATI ON/ADDEN DUM Leigh Ann Quinteros PA-C [address] [address], [place], [address] , [facility] 6 14:37:53 Type 2 diabetes mellitus without complica tion 247156995 Completed 201202/07/2014 RECORDED 04/14/20 13 3:34PM BY CASIE AUSTIN MA, ANNOTATI ON/ADDEN DUM Leigh Ann Quinteros PA-C [address] [address], [place], [address] , [facility] 6 14:37:53 Malaise and fatigue 238464665 Completed 201102/07/2014 RECORDED 04/28/20 12 9:25AM BY LIBBY STEPHEN MA, ANNOTATI ON/ADDEN DUM Leigh Annphill BEEBEC [address] [address], [place], [address] , [facility] 6 14:37:53 Influenz a vaccine needed 70609338209 06 Completed 201202/07/2014 RECORDED 04/14/20 13 3:41PM BY CASIE AUSTIN MA, OFFICE VISIT Leigh Ann Quinteros PA-C [address] [facility] [address], [place], [address] , [facility] 6 14:37:53 Gout 20334586 Active 2013 LUIS Ferrari, [facility] 4 15:12:02 Hyperlip idemia 12573725 Active 2013 LUIS Ferrari, [facility] 4 15:12:02 Chronic kidney disease stage 1 087605973 Completed 201312/15/2016 STORY: ELEVATED MICROALB UMIN; RECORDED 01/19/20 14 2:14PM BY CASIE AUSTIN MA, OFFICE VISIT Leigh Ann Quinteros PA-C [address], [place], [address] , [facility] 7 14:56:27 Displace ment of lumbar interver tebral disc without myelopat hy 33858151 Active 2013 SEES PSSP LUIS Ferrari, [facility] 4 15:12:01 Proteinu nazia 76733711 Active 2013 LUIS Ferrari, [facility] 4 15:12:02 Obesity 031169462 Active 2013 LUIS Ferrari, [facility] 4 15:12:02 Infectiv e otitis externa 68073628 Completed 201102/07/2014 RECORDED 07/23/20 12 1:53PM BY CASIE AUSTIN MA, ANNOTATI ON/ADDEN DUM Leigh Ann Quinteros PA-C [address] [facility] [address], [place], [address] , [facility] 6 14:37:53 Active or passive immuniza tion Completed 201102/07/2014 RECORDED 07/23/20 12 2:00PM BY CASIE AUSTIN MA, OFFICE VISIT Leigh Ann Quinteros PA-C [address] [facility] [address], [place], [address] , [facility] 6 14:37:53 Administ ration of diphther ia and tetanus vaccine Completed 201202/07/2014 RECORDED 11/23/19 13 2:44PM BY CASIE AUSTIN MA, ANNOTATI ON/ADDEN DUM Leigh Ann Quinteros PA-C [address] [facility] [address], [place], [address] , [facility] 6 14:37:53 Urolith Active 2013 HAS SEEN UROLOGY LUIS Ferrari, [facility] 4 15:12:02 Scrotal varices Active 2013 LUIS Ferrari, [facility] 4 15:12:02 Adult health examinat ion Completed 201303/06/2014 RECORDED 01/19/20 14 2:13PM BY CASIE AUSTIN MA, ANNOTATI ON/ADDEN DUM Leigh Ann Quinteros PA-C [address] [facility] [address], [place], [address] , [facility] 6 14:37:53 Counseli ng Completed 201103/06/2014 RECORDED 07/23/20 12 1:53PM BY CASIE AUSTIN MA, JOSAFATATI ON/ADDEN DUM Leigh Ann Quinteros PA-C [address] [facility] [address], [place], [address] , [facility] 6 14:37:53 Type 2 diabetes mellitus without complica tion 727660109 Completed 201203/06/2014 RECORDED 04/14/20 13 3:34PM BY CASIE AUSTIN MA, ANNOTATI ON/ADDEN DUM Leigh Annmitesh Quinteros DE- [address] [facility] [address], [place], [address] , [facility] 6 14:37:53 Malaise and fatigue 012777254 Completed 201103/06/2014 RECORDED 04/28/20 12 9:25AM BY LIBBY STEPHEN MA, ANNOTATI ON/ADDEN DUM [facility] [address] [facility] [address], [place], [address] , [facility] 6 14:37:53 Influenz a vaccine needed 33707819229 06 Completed 201203/06/2014 RECORDED 04/14/20 13 3:41PM BY CASIE AUSTIN MA, OFFICE VISIT Leigh Ann HENLEY [address] [place] [address] [address], [place], [address] , [facility] 6 14:37:53 Insomnia 540955750 Active 2013 Elena Mata MA [facility], [facility] 4 15:12:01 Infectiv e otitis externa 73733000 Completed 201103/06/2014 RECORDED 07/23/20 12 1:53PM BY CASIE AUSTIN MA, ANNOTATI ON/ADDEN DUM Leigh Annmitesh BEEBE [address] [facility] [address], [place], [address] , [facility] 6 14:37:53 Active or passive immuniza tion Completed 201103/06/2014 RECORDED 07/23/20 12 2:00PM BY CASIE AUSTIN MA, OFFICE VISIT Leigh Ann Quinteros PA-C [address] [place] [address] [address], [place], [address] , [facility] 6 14:37:53 Administ ration of diphther ia and tetanus vaccine Completed 201203/06/2014 RECORDED 11/23/19 13 2:44PM BY CASIE AUSTIN MA, ANNOTATI ON/ADDEN DUM Leigh Ann Quinteros PA-C [address], [place], [address] , [facility] 6 14:37:53 Otitis media 39732297 Completed 01/15/2017 LUIS Ward, [facility] 7 14:00:47 Disorder of cellular componen t of blood 002980507 Completed 201308/20/2024 Vivi De MD [address], [place], [address] , [facility] 5 22:35:18 Uncontro lled type 2 diabetes mellitus 126717129 Completed 201301/05/2017 RECORDED 01/21/20 14 11:18AM BY SHANE KITCHENIC AL SUMMARY Leigh Ann Quinteros PA-C [address], [place], [address] , [facility] 7 12:05:05 Renal disorder due to type 2 diabetes mellitus 632310104 Active 2020 Not Available [facility] 4 18:06:38 Otitis externa 9312340 Completed 01/15/2017 LUIS Ward, [facility] 7 14:00:31 Body mass index 30+ - obesity 105712313 Completed 05/13/2017 Leigh Ann Quinteros PA-C [address], [place], [address] , [facility] 7 17:10:10 Type 2 diabetes mellitus 07302560 Completed 01/05/2017 Leigh Ann Quinteros PA-C [address], [place], [address] , [facility] 7 12:04:58 Tachycar jimi 8342023 Completed 08/17/2023 Vivi De MD [address] [facility] [address], [place], [address] , [facility] 4 16:02:45 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 12244008 Active LUIS Ferrari, [facility] 4 15:12:02 Primary erectile dysfunct ion 024510765 Active LUIS Ferrari, [facility] 4 15:12:02 Hyperkal emia 65725857 Completed 202008/23/2023 Vivi De MD [address] [facility] [address], [place], [address] , [facility] 4 13:51:59 Chronic kidney disease stage 3 521134716 Completed 11/24/2023 Vivi De MD [address] [facility] [address], [place], [address] , [facility] 4 19:07:37 Noncompl iance with therapeu tic regimen 480675201 Active 2017 LUIS Ferrari, [facility] 4 15:12:01 Diabetic on insulin 853211346 Active 2017 LUIS Ferrari, [facility] 4 15:12:01 Poor short-te rm memory 186666741 Active 2019 LUIS Ferrari, [facility] 4 15:12:02 Hyperten sive renal disease 81380456 Active 2019 DX: I12.9 Not Available [facility] 4 18:06:38 Iliopsoa s bursitis of right hip 32139078777 46974 Completed 202008/17/2023 Vivi De MD [address] [address], [place], [address] , [facility] 4 15:47:00 Hypomagn esemia 684679550 Active 2020 Not Available [facility] 4 18:06:37 Acute kidney injury 81530271 Completed 202008/15/2023 Vivi De MD [address], [place], [address] , [facility] 4 15:46:57 Hyperten kiko monitori ng status 712204992 Active 2023 dis-enro ll Tasia Gideon null, [facility] 4 09:51:37 Chronic kidney disease stage 4 171866940 Active 2023 Vivi De MD [address], [place], [address] , [facility] 4 19:07:44 Hyperpar athyroid ism due to renal insuffic iency 50139928 Active 2023 Vivi De MD [address], [place], [address] , [facility] 4 07:19:59 Heart failure 18901227 Active 2024 Lorenzo Quinteros PA-C [address], [place], [address] , [facility] 5 09:19:32 Problem Notes None recorded. Procedures Surgical History Date Name Laterality Status Provider Name and Address Organization Details Recorded Time 08/22/19 25 Advanced Care Planning completed Vivi De MD [address], [place], [address], [facility] 08/20/2024 22:29:02 08/17/19 24 Advanced Care Planning completed Vivi De MD [address], [place], [address], [facility] 08/15/2023 15:44:21 05/04/20 23 removal of catheter completed Yesi Farris [facility] 05/06/2023 13:15:36 04/10/20 23 Diabetic Foot Exam (Monofilament) completed Vivi De MD [address] [address], [place], [address], [facility] 04/10/2023 13:37:37 03/26/20 23 retrograde pyelogram completed Yesi Farris [facility] 03/27/2023 09:26:09 03/26/20 23 ureteric lithotripsy completed Yesi Farris [facility] 03/27/2023 09:26:39 03/26/20 23 insertion of stent into ureter completed Yesi Farris [facility] 03/27/2023 09:26:57 07/15/20 22 Advanced Care Planning completed Felicita Cai [facility] 07/17/2022 13:15:29 03/17/20 22 Diabetic Foot Exam (Monofilament) completed Vivi De MD [address] [facility] [address] [facility], [place], [address], [facility] 03/17/2022 15:17:06 06/18/20 21 Advanced Care Planning completed Vivi De MD [address] [address], [place], [address], [facility] 06/18/2021 08:50:42 06/18/20 21 Diabetic Foot Exam (Monofilament) completed Vivi De MD [address], [address], [facility] 06/18/2021 18:56:54 06/04/20 20 Six-Item Cognitive Test completed Casie badillo MA [facility] 06/04/2020 15:16:46 09/15/19 20 Colonoscopy completed Casie badillo MA [facility] 06/04/2020 15:14:36 04/15/20 19 Mini-Cog Test completed Casie badillo MA [facility] 04/15/2019 15:42:06 09/20/19 19 Diabetic Foot Exam (Monofilament) completed Celia Ortiz MA [facility] 09/20/2018 14:36:35 04/16/20 18 Diabetic Foot Exam (Monofilament) completed Clemencia Lindsey [facility] 04/16/2018 14:44:34 03/05/20 18 Diabetic Foot Exam (Monofilament) completed Clemencia Lindsey MA [facility] 03/05/2018 12:51:44 01/27/20 18 Diabetic Foot Exam (Monofilament) completed Clemencia Lindsey MA [facility] 01/26/2018 09:37:53 12/09/19 18 Diabetic Foot Exam (Monofilament) completed Dottie Moe MA [facility] 12/08/2017 15:02:35 07/27/18 58 tonsillectomy completed Hadley Main MA [facility] 07/15/2022 14:41:22 Imaging Results Imaging Date Name Status LastModified by Organization Details LastModified Time 08/18/2024 US, echocardiogram completed [email or web address] [facility] (Medical Records) [address] [place] [address], [address], 08/23/2024 15:35:40 10/26/2024 XR, chest, 2 view completed [facility] (Medical Records) [address] [place] [address], [address], 11/02/2024 10:41:05 Procedure Notes None recorded. Medical Equipment None Reported. Allergies Allergen ID Allergen Name Allergen Category Reaction Reaction Severity Criticality Documentation Date Start Date Code Code System Note Provider Name and Address Organization Details Recorded Time 35094 Victoza medicatio n abdominal pain Not available Not available 04/16/2018 43950 3 RxNorm Leigh Ann Aldair PELAEZ [address], [place], [address], [place] [facility] 8 15:07:08 55432 liragluti de medicatio n other Not available Not available 05/20/20212020 74051 8 RxNorm Leisa Melvin lucia, [facility] 1 10:45:47 83987 Product containin g angiotens in-conver ting enzyme inhibitor (product) medicatio n Not available Not available low 11/24/2023 52650 009 SNOMED See renal note Vivi De MD [address] [facility] [address], [facility] [address], [facility] 4 19:07:27 Medications Name Sig Start Date [...] 1 TABLET BY MOUTH TWICE A DAY active on hold Not Available Not Available No t Available atorvasta tin 40 mg tablet TAKE [...] PLEASE SEE ATTACHED FOR DETAILED DIRECTIO NS 11/02 completed Not Available Not Available Not Available clindamyc in HCl 300 mg capsule [...] me 200 mg tablet TAKE 1 TABLET BY MOUTH EVERY DAY active Not Available Not Available No t Available azithromy demarcus 250 mg tablet TAKE 2 TABLETS BY MOUTH TODAY, THEN TAKE 1 TABLET DAILY FOR 4 DAYS DIRECTED active Not Available Not Available No t Available ibuprofen 800 mg tablet 06/04 completed [...] completed Not Available Not Available Not Available alprazola m 0.25 mg tablet TAKE 1 TABLET ORALLY 2 TIMES A DAY active Not Available Not Available No t Available magnesium oxide 400 mg (241.3 mg [...] FOR 90 DAYS, FOR BACK PAIN. active on hold Not Available Not Available No t Available [...] completed Not Available Not Available Not Available albuterol sulfate HFA 90 mcg/actua tion aerosol inhaler INHALE 2 PUFFS EVERY 4-6 HOURS BY MOUTH NEEDED FOR 50 DAYS. active Not Available Not Available No t Available sodium polystyre ne sulfonate oral powder [...] Not Available Not Available Not Available Humalog KwikPen (U-100) Insulin 100 unit/mL subcutane ous PLEASE SEE ATTACHED FOR DETAILED DIRECTIO NS active Not Available Not Available No t Available oxycodone 10 mg tablet TAKE 1 TABLET BY MOUTH UP TO 4 TIMES A DAY NEEDED PAIN, MAY FILL FEWER 11/02 completed Not Available Not Available Not Available [...] t Available Unifine Pentips 31 gauge x /16 needle INJECT DIRECTED ONCE A DAY 2018 [...] Ultra-Fin e 1 mL 31 gauge x /16 01/15 completed Not Available Not Available Not Available Randy SoloStar U-300 Insulin 300 unit/mL (1.5 mL) [...] unit/mL (3 mL) subcutane ous pen INJECT 40 UNITS SUBCUTAN EOUSLY EVERY EVENING active Not [...] Available Lokelma 5 gram oral powder packet po tid active Not Available Not Available Not Available [...] Updated DateTime 4 177.8 cm 30.4 kg/m2 48501.5 8 g 86 /min 96 % 96 % 98.1 [degF] 125 mm[Hg] 66 mm[Hg] Casie stubbs MA [facility] [place] 4 14:52:11 Date Recorded Body height Body mass index (BMI) Body weight Heart rate Oxygen saturation Oxygen saturation in Arterial blood by Pulse oximetry Body temperature Systolic blood pressure Diastolic blood pressure Provider Name and Address Organization Details Last Updated DateTime 4 177.8 cm 31.2 kg/m2 74511.2 4 g 82 /min 97 % 97 % 98.3 [degF] 135 mm[Hg] 63 mm[Hg] Humaira Jo LPN [facility] 4 15:24:10 Date Recorded Body height Provider Name an d Address Organization Details Last Updated DateTime 08/03/2024 177.8 cm Azra Torres MA [facility] [place] 08/03/2024 14:36:10 Date Recorded Body mass index (BMI) Body weight Heart rate Oxygen saturation Oxygen saturation in Arterial blood by Pulse oximetry Body temperature Systolic blood pressure Diastolic blood pressure Provider Name and Address Organization Details Last Updated DateTime 5 32.3 kg/m2 916442. 28 g 86 /min 97 % 97 % 98.4 [degF] 154 mm[Hg] 70 mm[Hg] Jaci santacruz MA [facility] [place] 5 14:43:16 Date Recorded Body height Body mass index (BMI) Body weight Heart rate Oxygen saturation Oxygen saturation in Arterial blood by Pulse oximetry Body temperature Systolic blood pressure Diastolic blood pressure Provider Name and Address Organization Details Last Updated DateTime 5 177.8 cm 30.6 kg/m2 79369.1 7 g 84 /min 96 % 96 % 98.3 [degF] 150 mm[Hg] 66 mm[Hg] Casie stubbs MA [facility] [place] 5 15:25:23 Date Recorded Systolic blood pressure Diastolic blood pressure Provider Name and Address Organization Details Last Updated DateTime 08/22/2024 154 mm[Hg] 72 mm[Hg] Elena Mata MA [facility] 08/22/2024 16:14:01 Date Recorded Body height Body mass index (BMI) Body weight Oxygen saturation Oxygen saturation in Arterial blood by Pulse oximetry Heart rate Body temperature Systolic blood pressure Diastolic blood pressure Provider Name and Address Organization Details Last Updated DateTime 5 177.8 cm 30.5 kg/m2 01646.3 8 g 97 % 97 % 91 /min 100.4 [degF] 163 mm[Hg] 77 mm[Hg] Dottie Moe MA [facility] 5 09:51:44 Social History Question Answer Notes LastModified by Organizat ion Details LastModified Time Tobacco Smoking Status Never Smoker La Nena lucia [facility] 03/30/2014 15:10:37 Do You Have An Advance Directive? Yes Anne-Marie Waggoner (sister) Information not available 04/09/2015 What Is Your Level Of Alcohol Consumption? None Information not available 06/26/2014 Is Blood Transfusion Acceptable In An Emergency? Yes Information not available 04/09/2015 What Is Your Level Of Caffeine Consumption? 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 With Others Roomate Information not available 08/17/2023 Do You Take [...] conjugate PCV 13 7 completed LUIS Hanks [facility] 03/05/2018 13:04:15 zoster live 7 completed Not Available [facility] 08/15/2023 18:06:39 zoster live 5 completed LUIS Hanks [facility] 03/05/2018 13:05:03 zoster live 7 completed LUIS Ferrari [facility] 08/17/2023 15:12:09 COVID-19, mRNA, LNP-S, PF, 100 mcg/0.5mL dose or 50 mcg/0.25mL dose 1 completed LUIS Ferrari [facility] 08/17/2023 15:12:08 COVID-19, mRNA, LNP-S, PF, 100 mcg/0.5mL dose or 50 mcg/0.25mL dose 1 completed LUIS Ferrari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 discussed and when to go to ED.Notes home BP wnl. Anemia of chronic disease 710133387 D63.8 Will continue to monitor cbc at annual. Edema of l ower extremity 681087655 R60.0 compressio n stocking advised Adult heal th examination 844063065 Z00.00 Patient was counseled on healthy diet, [...] Medication reconciled . Advance directives discussed. Fatigue 70651737 R53.83 Hyperlipidemia 15099729 E78.5 Hypomagnesemia 943475611 E83.42 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 54652694 D64.9 Will continue to monitor in 3 mo visit. Advance di rective discussed with patient 323084532 Z71.89 MOLST/HCP provided and discussed. Gout 76914844 M10.9 Impacted c erumen of bilateral ears 8120930299 524201 H61.23 Administra tion of viral vaccine 89134240 Z23 Varicella vaccination 68 689321 Z23 [id number] Azra Torres MA Main Office [address] [facility] [address] [facility] [place] [address] 04/10/2023 12:52:49 04/10/2023 13:49:56 Renal disorder due to type 2 diabetes mellitus 374321584 E11.22 [facility]et[facility] per endo. (humalog 15 units TID, tresiba 65 units), reminded to reach out to [facility].Will stop Pioglitazo ne and have care per Endo perhaps he might be a good candidate for GLP1 vs SGLT 2.Tells me last a1c at [facility] was 6.8On statin.Oph thalmology exam has apt [...] in seeing one Hypertensi ve renal disease 69480305 I12.9 bp soft will hold amlodipine . Advised to check bp. Chronic ki dney disease stage [address] Martínez advised regular follow up. Edema of l ower extremity 318262172 R60.0 compressio n stocking advised Insomnia 200639330 G47.0 0 Pericardial effusion 373 198852 I31.39 Likely 2/2 to fluid overload, now on HD. Influenza vaccine needed 2416861757 106 Z23 Abrasion 017356129 T14.8 XXA Right 4th toe, no warmth or fluctuance , no drainage, area cleaned and bacitracin placed and bandage. Advised daily wound check. Call if no improvemen t. Also advised to follow podiatry. [id number] Felicita Cai Main Office [address] [facility] [address] [place] [address] 08/17/2023 14:49:27 08/17/2023 16:07:35 Adult health examination 281410420 Z00.00 Patient was counseled on healthy diet, exercise and nutrition due to Body mass index is 31.6 kg/m? ? ?. Last PSADate: 12/06/21Res ult: 1.5Plan: wants to stop screening. Last Colonoscop y:Date: 09/15/2019R esult: acute colitisPla n: tells me next due in 10 yrs, Vaccines:T d: 03/05/22Zos ter rec:script provided grdedEBC55 : 03/05/18PPS V23: 07/23/12, 04/15/19PCV 20: DiscussedI nfluenza: 04/10/23Cov id: 08/17/20, 09/14/20, 06/23/21, encourage updated vaccineRSV : Discussed Routine labs today Immunizati on status reviewed. Will screen based on risk factors. Regular dental and ophtho care advised as well as seat belt and sunscreen use. Distracted driving discussed. Medication reconciled . Advance directives discussed. Advance di rective discussed with patient 906198850 Z71.89 MOLST/HCP provided and discussed. Administra tion of pneumococcal vaccine 16319678 Z23 Administra tion of viral vaccine 18747983 Z29.11 Chronic ki dney disease stage [address] Martínez advised regular follow up. Renal diso rder due to type 2 diabetes mellitus 776548872 E11.22 tx per [facility] endo, a1c/microa lbumin ordered, will fax to endo along with CMP and lipids.[place]ia morales Ophthalmol ogy exam advisedFol cady Renal Dr. Gallo burnham [facility] last see in 12/24/2022 Lipid profile ordered - On statin.Cou nselled about regular physical activityCo unselled on dietAdvise d regarding risks/sign s/symptoms of hypoglycem ia. Counseled to carry a snack in case of emergencie sAdvised to check fingerstic k glucose at home Diabetic on insulin 1707 17533 Z79.4 Fatigue 29156413 R53.83 Z00.00 Hyperlipidemia 94783034 E78.5 Z00.00 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 44727570 D64.9 Will continue to monitor in 3 mo visit. Varicella vaccination 68 005320 Z23 Gout 25897596 M10.9 Hyperkalemia 87119643 E8 7.5 Insomnia 025417184 G47.0 0 Noncomplia nce with therapeutic regimen 686593788 Z91.199 Venereal d isease screening 470262034 Z20.2 Z11.3 [id number] Vivi De MD Main Office [address] [place] [address] 11/24/2023 15:25:07 11/24/2023 16:18:16 Vitamin D deficiency 02024820 E55.9 on supplement ation Insomnia 439754175 G47.0 0 Reviewed the risk of benzo use. Will continue current regimen till he is evaluated by sleep medicine.C ontrol substance completed. Displaceme nt of lumbar intervertebral disc without myelopathy 97295866 M51.26 Follows pain management Chronic ki dney disease stage 4 007292941 N18.4 Cont. renal follow up. Hypertensi ve renal disease 90292793 I12.9 Stable on current regimen. Renal diso rder due to type 2 diabetes mellitus 316872886 E11.22 Follows [facility] endo. History of calculus of kidney 370663023 Z87.[address] he had done by urology reveals he has cleared renal stone [id number] Felicita Cai Main Office [address] [place] [address] 12/15/2023 13:23:53 12/15/2023 13:53:43 Acute conjunctivitis 66653814 H10.33 Allergic conjunctivitis 801364081 H10.13 Allergic rhinitis 917581 04 J30.9 Trigger fi nger of left hand 5531895549 8664464 M65.312 [id number] Chapito Paz MD Main Office [address] [facility] [address] [facility] [place] [address] 02/24/2024 13:21:08 02/24/2024 14:18:03 Fatigue 64981064 R53.83 No clear etiology. Possible infectious although his only symptoms is fatigue. Does not appear to be mood related. [id number] Felicita Cai Main Office [address] [facility] [address] [place] [address] 03/01/2024 13:49:15 03/01/2024 14:47:08 Fatigue 55433826 R53.83 Z00.00 Alkaline p hosphatase above reference range 925186037 R74.8 Hypertensi ve renal disease 81725441 I12.9 Chronic ki dney disease stage 4 171361457 N18.4 Cont. renal follow up. [id number] Felicita Cai Main Office [address] [facility] [address] [place] [address] 03/07/2024 10:48:01 03/07/2024 11:37:38 Hyperglycemia due to type 2 diabetes mellitus 8741525676 35908 E11.65 [address]ulin tr eated type 2 diabetes mellitus 969118171 Z79.4 Liver enzy mes level above reference range 206352467 R74.01 Vitamin D deficiency 347 49447 E55.9 on supplement ation, compliance discussed. Urinary tr act infectious disease 00836573 N39.0 -Has fatigue could be uti, will renally dose with levaquin every other day.-Advis ed to monitor glucose.-H ydration enforced. Hyperkalemia 57924235 E8 7.5 -ECG done 03/01/24 visit. Insomnia 107061229 G47.0 0 Reviewed the risk of benzo use. Will continue current regimen till, advised to follow up with sleep medicine for sleep study. Hypertensi ve renal disease 14142673 I12.9 Advised to increase amlodipine to 2 (2.5mg) he has a follow up with renal in 2 weeks. Advised to monitor to bp then. I will re-check with him in 1 week. Chronic ki dney disease stage 4 702190446 N18.4 Cont. renal follow up. [id number] Vivi De MD Main Office [address] [facility] [address] [place] [address] 04/11/2024 10:54:20 04/11/2024 12:28:00 Hyperglycemia due to type 2 diabetes mellitus 6565000693 89825 E11.65 Follows endo. Insulin tr eated type 2 diabetes mellitus 489749213 Z79.4 Liver enzy mes level above reference range 872972776 R74.01 Vitamin D deficiency 347 99704 E55.9 on supplement ation followed by renal. Insomnia 501171039 G47.0 0 -Reviewed the risk of benzo use. Will continue current regimen, Advised to follow up with sleep medicine for sleep study. Hypertensi ve renal disease 21565169 I12.9 Advised to increase amlodipine to 2 (2.5mg) he has a follow up with renal in 2 weeks. Advised to monitor to bp then. I will re-check with him in 1 week. Chronic ki dney disease stage 4 881324558 N18.4 Cont. renal follow up. Influenza vaccine needed 1524156817 106 Z23 65 YEARS AND OLDER Urinary tr act infectious disease 46938481 N39.0 Resolved after tx. [id number] Vivi De MD Main Office [address] [place] [address] 05/17/2024 14:27:11 05/17/2024 15:24:40 Ulcer of foot 31474902 L97.919 He is a diabetic, will cover with abx (bactrim), Granulatio n tissue noted. Area marked 5.5x5.5 cm.CrCl > 30 , Calculated with January 2024 Cr, calculated to be 33.Advised to keep area clean and dry.Angel r protection with Vaseline.A void pedicure.R eferral to recording artist provided.Vaibhav alfredo glycemic control encouraged Follow up 1 week. [id number] Felicita Cai Main Office [address] [place] [address] 05/27/2024 15:08:01 05/27/2024 15:44:58 Ulcer of foot 92079213 L97.919 Area is healing well has granulatio n tissue.He did not see recording artist . I will refer to wound clinic due to compliance issues and the fact that he is a diabetic,N o further abx needed at this time.Encou raged glycemic control.En couraged to keep the area covered and protected. [id number] Chapito Paz MD Main Office [address] [place] [address] 08/03/2024 14:24:21 08/03/2024 15:28:21 Edema of lower extremity 680190946 R60.0 This is most likely related to his kidney disease. Will recheck kidney labs and will also check a proBNP. Heart failure is a possibilit y but will hold off on an ECHO. Doubt DVT since both LE's are involved. We discussed a reduced salt diet as well as elevation. [id number] Vivi De MD Main Office [address] [facility] [address] [facility] [place] [address] 08/22/2024 15:00:03 08/22/2024 16:16:31 Adult health examination 105588368 Z00.00 Patient was counseled on healthy diet, exercise and nutrition due to Body mass index is 30.6 kg/m? ? ?. Last PSADate: 03/01/24Resu lt: 2.9Plan: past age for screening Last Colonoscop y:Date: 09/15/2019R esult: acute colitisPla n: tells me next due in 10 yrs, Vaccines:T d: 03/05/22Zos ter rec: Script provided [email or web address] : 03/05/18PPS V23: 07/23/12, 04/15/19PCV 20: DiscussedI nfluenza: 04/11/24Cov id: encourage updated vaccineRSV : Discussed Routine labs today Immunizati on status reviewed. Will screen based on risk factors. Regular dental and ophtho care advised as well as seat belt and sunscreen use. Distracted driving discussed. Medication reconciled . Advance directives discussed. Advance di rective discussed with patient 994955206 Z71.89 MOLST/HCP provided and discussed. Renal diso rder due to type 2 diabetes mellitus 363545697 E11.22 tx per [facility] endo, microalbum in ordered, will fax to endo along with CMP and lipids.[place] rly Ophthalmol ogy exam advisedFol lows Renal Dr. Reynolds d profile ordered - On statin.Cou nselled about regular physical activityCo unselled on dietAdvise d regarding risks/sign s/symptoms of hypoglycem ia. Counseled to carry a snack in case of emergencie sAdvised to check fingerstic k glucose at home Diabetic on insulin 1707 52835 Z79.4 Hyperlipidemia 92879830 E78.5 Z00.00 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 35662330 D64.9 Will continue to monitor in 3 mo visit. Gout 09588919 M10.9 Hyperkalemia 01918897 E8 7.5 Fatigue 05118744 R53.83 Z00.00 Insomnia 136076359 G47.0 0 -Reviewed the risk of benzo use. Will continue current regimen, Advised to follow up with sleep medicine for sleep study. Varicella vaccination 68 906119 Z23 Chronic ki dney disease stage [address] Martínez advised regular follow up. Alkaline p hosphatase above reference range 074899301 R74.8 Vitamin D deficiency 347 18200 E55.9 on supplement ation followed by renal. Hypertensi ve renal disease 50010210 I12.9 Bp elevated increase amlodipine to 10mg. Follow up 1 mo. [id number] Vivi De MD Main Office [address] [place] [address] 11/02/2024 09:34:28 11/02/2024 10:57:07 Fever 114740689 R50.9 fever of unknown etiology - d/w Dr. De - check labs, urine, cxrwill rx c empiric abx - to help keep him out of the hospitalre commend probiotics while on abx Chronic ki dney disease stage 4 875710780 N18.4 cont lasix 40mg bid as per renal - next f/u c renal next wedmost likely has cardiorena l syndrome*w ill fwd copy of this ov note to renal* Renal diso rder due to type 2 diabetes mellitus 245678085 E11.22 cont meds, f/u c endo as dir Heart failure 52796219 I 50.9 as per renal note last week was hypervolem ic - began lasix 40mg bid - [place] 24 lbs from renal ov last weekmost likely has HFpEF d/t results of echo 08.18.24 (see above)chec k labsrec avoid saltdoes not appear pt sees cardiologi st - will discuss c pt at f/u visit next week Dysuria 17585429 R30.0 Health Concerns Section Related Observation LastModified by Organization Detai ls LastModified Time None Recorded Concern Status LastModified by Organization Details LastModified Time None Recorded Advance Directives Directive Y: Anne-Marie Waggoner (sister) Payers Encounter Date Sequence Insurance Name Policy Number Policy Frederick Covered Member ID Frederick Member ID Guarantor Name 05/17/2024 1 [facility] (MEDICARE REPLACEMENT/A DVANTAGE - PPO) [id number] Ryan Conderecque [id number] Ryan Wade Labrecque 05/27/2024 1 [facility] (MEDICARE REPLACEMENT/A DVANTAGE - PPO) [id number] Ryan Wade Labrecque [id number] Ryan Wade Labrecque 08/03/2024 1 [facility] (MEDICARE REPLACEMENT/A DVANTAGE - PPO) [id number] Ryan Wade Labrecque [id number] Ryan Wade Labrecque 08/22/2024 1 [facility] (MEDICARE REPLACEMENT/A DVANTAGE - PPO) [id number] Ryan Conderecque [id number] Ryan Wade Labrecque 11/02/2024 1 [facility] (MEDICARE REPLACEMENT/A DVANTAGE - PPO) [id number] Ryan Wade Labrecvik [id number] Ryan Wade Labrecvik Notes Date Note Type Note Provider Name and Address Organization Details Recorded Time 05/17/2024 text/html Skin LesionRepor eda bypatient.Location:fee t (R) Quality:sore; traumatize easily Duration:05/12Notes:Th e patient presents with a laceration to the right foot. He recently had a pedicure on 05/12 and believes he was nicked by the callus file. He denies fever or chills and has been cleaning the wound with hand firmware engineer and applying cortisone cream. He reports that the wound is not draining, there is no warmth, and it appears to be decreasing in size. Vivi De MD [address] [facility] [address], [place], [address], [facility] 05/18/2024 08:38:49 05/27/2024 text/html Follow up for r ankle wound check, healing well. Completed Bactrim, notes the wound size is decreasing, and improving, has not used anymore cortisone cream or hand firmware engineer. Did schedule a podiatry follow up. Felicita lucia, [facility] 06/08/2024 15:23:11 08/03/2024 text/html He has been [...] had variable control. Chapito Paz MD [address], [phone], [facility] 08/03/2024 18:09:03 08/22/2024 text/html Medicare Annual Wellness [...] not at goal. Continues to work with [facility] Endo Follows renal for CKD4 Vivi De MD [address], [place], [address], [facility] 08/22/2024 17:25:23 11/02/2024 text/html here for hospita l f/u - pna, rsv == no dc summary to reviewapparently he went to [place] [facility] on 10.18 - transferred to [facility] - discharged on 10.22since then, has seen renal and endo - rev renal note 4.2 - had cxr, no results to review, advised to start lasix 40mg bid - has lost a few pounds, breathing a little better -- next to see renal in 1 wk - next wedhere today for hosp f/ufinished pred & cefpodoximerev endo dc instructions 4.7 - increased tresiba curr - has low grade fever, wt stable from 1.27.25 ov but wt down from last week c renal (236 lbs) since is breathing easier and less LE edema as per family - no cough, sob, wheezing+ fatigueno dysuria but h/o recurrent uti's Vivi De MD [address], [place], [address], [facility] 11/04/2024 12:23:31
--- OUTSIDE RECORDS SUMMARY | 2024-11-08 16:39 | XMS_ITS | Encounter Summary ---
Author Organization [facility] Address [address] [place] [address] Phone Care Team Providers Care Erp Business Analyst Name Role Phone Joanna Angeles MD Primary Care Provider [phone] Reason for Visit * Reason Comments Med Refill Encounter Details Date Type Department Care Team ([facility] st Contact Info) Description 06/09/2023 Refill [facility] [address] [place] [address] Ahmet Oviedo MD [address] [facility] [address] [place] [address] Social History Tobacco Use Types [...] on filedocumented in this encounter Care Teams Erp Business Analyst Relationship Specialty Start Date End Date Joanna Angeles MD [address] [facility] [address] [place] [phone] PCP - General Family Medicine 02/17/23 documented as of this encounter
--- OUTSIDE RECORDS SUMMARY | 2024-11-08 16:39 | XMS_ITS | Clinical Summary ---
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 Role Phone Unavailable Primary Care Provider [...] at Discharge) cholecalciferol (CHOLECALCIFEROL ) 1.25 MG (38704 UT) capsule Take 1 capsule (50,000 Units [...] 10/18/2024 4:00 PM EDT Ancillary Procedure [facility] [address] [place] [address] Provider, File Room 10/18/2024 10:27 AM EDT - 10/22/2024 11:46 AM EDT Hospital Encounter [facility] [address] [phone] Marcelino Garcia MD Elias, Michael, MD Javed, MD Lucía Joshi Anita, MD Acute hypoxic respiratory failure (HCC) (Primary Dx); Pneumonia due to infectious organism, unspecified laterality, unspecified part of lung Discharge Disposition: Home or Self Care 10/17/2024 Orders Only [facility] [address] [place] [address] Provider, File Room from Last 3 Months Social History Tobacco Use Types Packs/Day Years Used Date Smoking Tobacco: Never Assessed [facility] Utilities Answer Date Recorded In the [...] [facility] in the past [facility], were you homeless or living in [...] - 11.0 Thou/uL 10/22/2024 8:07 AM EDT [facility] Platelet Count 243 150 - 450 Thou/uL 10/22/2024 8:07 AM EDT [facility] Hemoglobin 8.4(L) 13.0 - 17.7 g/dL 10/22/2024 8:07 AM EDT [facility] Hematocrit 26.7(L) 39.0 - 54.0 % 10/22/2024 8:07 AM EDT [facility] Red Blood Cell Count 2.87(L) 4.50 - 6.20 Mil/uL 10/22/2024 8:07 AM EDT [facility] MCV 93 80 - 100 fL 10/22/2024 8:07 AM EDT [facility] MCH 29.3 27.0 - 31.0 pg 10/22/2024 8:07 AM EDT [facility] MCHC 31.5 30.0 - 36.0 g/dL 10/22/2024 8:07 AM EDT [facility] RDW 14.6(H) 11.5 - 14.5 % 10/22/2024 8:07 AM EDT [facility] MPV 11.0 7.5 - 12.5 fL 10/22/2024 8:07 AM EDT [facility] nRBC 0.5(H) 0.0 - 0.1 /100 WBC 10/22/2024 8:07 AM EDT [facility] nRBC, Absolute 0.06(H) 0.00 - 0.02 Thou/uL 10/22/2024 8:07 AM EDT [facility] Bands Man 4 % 10/22/2024 9:31 AM EDT [facility] Neutrophils Man 86 % 9:31 AM EDT [facility] Lymphocytes Man 7 % 9:31 AM EDT [facility] Monocytes Man 3 % 10/22/2024 9:31 AM EDT [facility] Abs Neutrophils Count (ANC) 10.6(H) 2.0 - 7.5 Thou/uL 10/22/2024 9:31 AM EDT [facility] Abs Lymphocytes Man 0.8(L) 1.5 - 4.5 Thou/uL 10/22/2024 9:31 AM EDT [facility] Abs Monocytes Man 0.4 0.2 - 1.5 Thou/uL 10/22/2024 9:31 AM EDT [facility] Macrocytes Occasional 10/22/2024 9:31 AM EDT [facility] Polychromasia Occasional 10/22/2024 9:31 AM EDT [facility] Hypochromia Occasional 10/22/2024 9:31 AM EDT [facility] Spherocytes Occasional 10/22/2024 9:31 AM EDT [facility] Blood Blood specimen / Unknown 10/22/2024 7:49 AM EDT 10/22/2024 8:00 AM EDT Christal Castrejon MD LAB BLOOD ORDERABLES [facility] [address] [place] [address], * (ABNORMAL) Basic Metabolic Panel (Early AM) (10/22/2024 7:49 AM EDT) Only the most recent of2 resultswithin the time period is included. Glucose 145(H) 74 - 106 mg/dL 10/22/2024 8:37 AM EDT [facility] Comment:Fasting: <100 mg/dL, Non-Fasting: <200 mg/dL (ADA 2004) Blood Urea Nitrogen (BUN) 107(H) 9 - 23 mg/dL 10/22/2024 8:37 AM EDT [facility] Creatinine 6.1(H) 0.7 - 1.3 mg/dL 10/22/2024 8:37 AM EDT [facility] eGFR 9(L) >59 10/22/2024 8:37 AM EDT [facility] Comment:CKD-EPI (2020) in mL /min/1.73 sq meters. Sodium 146(H) 136 - 145 mmol/L 10/22/2024 8:37 AM EDT [facility] Potassium 3.8 3.4 - 4.5 mmol/L 10/22/2024 8:37 AM EDT [facility] Chloride 107 98 - 107 mmol/L 10/22/2024 8:37 AM EDT [facility] CO2 23 20 - 31 mmol/L 10/22/2024 8:37 AM EDT [facility] Anion Gap 16(H) 5 - 15 10/22/2024 8:37 AM EDT [facility] Calcium 8.2(L) 8.7 - 10.5 mg/dL 10/22/2024 8:37 AM EDT [facility] BUN/Creatinine Ratio 18 10.0 - 25.0 Ratio 10/22/2024 8:37 AM EDT [facility] Blood Blood specimen / Unknown 10/22/2024 7:49 AM EDT 10/22/2024 8:00 AM EDT Christal Castrejon MD LAB BLOOD ORDERABLES [facility] [address] [place] [address], * (ABNORMAL) POCT Glucose, Fingerstick (10/22/2024 7:42 AM EDT) Only the most recent of20 resultswithin the time period is included. Pathologist [facility] POC Glucose 150(H) 65 - 99 mg/dL 10/22/2024 7:48 AM EDT Blood specimen / Unknown 10/22/2024 7:42 AM EDT 10/22/2024 7:48 AM EDT Christal Castrejon MD POINT OF CARE TEST O RDERABLES [facility] See Below * ECHOCARDIOGRAM COMPREHENSIVE WITH CONTRAST (10/20/2024 12:11 PM EDT) Pathologist [facility] IVS Mean (F:0.6-0.9, M:0.6-1.0) 1.0 cm [...] - 5.1 mg/dL 10/20/2024 6:13 AM EDT [facility] Blood Blood specimen / Unknown 10/20/2024 5:31 AM EDT 10/20/2024 5:37 AM EDT Hadley Johnson MD LAB BLOOD ORDERABLES Performing Organization Address City/[facility]/ZIP Co de Phone Number [address] * MAGNESIUM (10/20/2024 5:31 AM EDT) Only the most recent of3 resultswithin the time period is included. Magnesium 2.1 1.6 - 2.6 mg/dL 10/20/2024 6:13 AM EDT [facility] Blood Blood specimen / Unknown 10/20/2024 5:31 AM EDT 10/20/2024 5:37 AM EDT Hadley Johnson MD LAB BLOOD ORDERABLES Performing Organization Address City/[facility] [[email or web address]] Co de Phone Number [address] * (ABNORMAL) Comprehensive Metabolic Panel (10/20/2024 5:31 AM EDT) Only the most recent of3 resultswithin the time period is included. Glucose 141(H) 74 - 106 mg/dL 10/20/2024 6:13 AM EDT [facility] Comment:Fasting: <100 mg/dL, Non-Fasting: <200 mg/dL (ADA 2004) Blood Urea Nitrogen (BUN) 100(H) 9 - 23 mg/dL 10/20/2024 6:13 AM EDT [facility] Creatinine 6.6(H) 0.7 - 1.3 mg/dL 10/20/2024 6:13 AM EDT [facility] eGFR 8(L) >59 10/20/2024 6:13 AM EDT [facility] Comment:CKD-EPI (2020) in mL /min/1.73 sq meters. Sodium 143 136 - 145 mmol/L 10/20/2024 6:13 AM EDT [facility] Potassium 4.0 3.4 - 4.5 mmol/L 10/20/2024 6:13 AM EDT [facility] Chloride 108(H) 98 - 107 mmol/L 10/20/2024 6:13 AM EDT [facility] CO2 22 20 - 31 mmol/L 10/20/2024 6:13 AM EDT [facility] Calcium 7.4(L) 8.7 - 10.5 mg/dL 10/20/2024 6:13 AM EDT [facility] Alkaline Phosphatase 150(H) 45 - 128 U/L 10/20/2024 6:13 AM EDT [facility] Aspartate Aminotrans (AST) 37(H) <34 U/L 10/20/2024 6:13 AM EDT [facility] Alanine Aminotrans (ALT) 23 10 - 49 U/L 10/20/2024 6:13 AM EDT [facility] Bilirubin, Total 0.2(L) 0.3 - 1.2 mg/dL 10/20/2024 6:13 AM EDT [facility] Protein, Total 6.8 5.7 - 8.2 g/dL 10/20/2024 6:13 AM EDT [facility] Albumin 3.5 3.4 - 4.8 g/dL 10/20/2024 6:13 AM EDT [facility] BUN/Creatinine Ratio 15 10.0 - 25.0 Ratio 10/20/2024 6:13 AM EDT [facility] Globulin 3.3 1.5 - 3.9 g/dL 10/20/2024 6:13 AM EDT [facility] Albumin/Globulin Ratio 1.0(L) 1.5 - 2.5 Ratio 10/20/2024 6:13 AM EDT [facility] Anion Gap 13 5 - 15 10/20/2024 6:13 AM EDT [facility] Blood Blood specimen / Unknown 10/20/2024 5:31 AM EDT 10/20/2024 5:37 AM EDT Hadley Johnson MD LAB BLOOD ORDERABLES [facility] [address] [place] [address], * (ABNORMAL) POCT Blood Gas, Arterial (10/19/2024 3:46 PM EDT) Only the most recent of5 resultswithin the time period is included. Sample Type Arterial 10/19/2024 3:48 PM EDT [facility] Lab pH, Arterial 7.36 7.35 - 7.45 10/19/2024 3:48 PM EDT [facility] Lab pCO2, Arterial 36 35 - 45 mmHG 10/19/2024 3:48 PM EDT [facility] Lab pO2, Arterial 48(LL) 80 - 100 mmHG 10/19/2024 3:48 PM EDT [facility] Lab HCO3 20.0(L) 22 - 26 mmol/L 10/19/2024 3:48 PM EDT [facility] Lab O2 Saturation, Arterial 79.0(L) 95 - 100 % 10/19/2024 3:48 PM EDT [facility] Lab Base Deficit, Arterial 4.5 mmol/L 10/19/2024 3:48 PM EDT [facility] Comment:REFERENCE RANGE: NEG ATIVE 2 TO POSITIVE 2 Liter Flow, I-STAT 3.0 10/19/2024 3:48 PM EDT [facility] Lab Comments POC VENOUS 10/19/2024 3:48 PM EDT [facility] Lab 10/19/2024 3:46 PM EDT 10/19/2024 3:48 PM EDT Hadley Johnson MD POCT ORDERABLES - DE VICE [facility],PULMONARY LAB [address] [place] [address], [facility],Pulmonary Lab [address] [facility], [place] * XR Chest 1 view-Portable (10/19/2024 [...] is included. Ventricular rate 94 BPM EKG [facility] Atrial rate 94 BPM EKG [facility] P-R interval 138 ms EKG [facility] QRS duration 88 ms EKG [facility] Q-T interval 386 ms EKG [facility] QTC calculation (Bazett) 483 ms EKG [facility] P axis 60 degrees EKG [facility] R axis 19 degrees EKG [facility] T axis 55 degrees EKG [facility] 10/19/2024 9:20 AM EDT Narrative EKG [facility] - 10/19/2024 9:41 AM EDT Normal sinus rhythm Prolonged QT Abnormal ECG When compared with ECG of 18-Oct-2024 11:36, No significant change was found Confirmed by MD Simmons Venu ([id number]) on 10/19/2024 9:41:44 AM Procedure Note Roland Simmons MD - 10/19/2024 Normal sinus rhythm Prolonged QT Abnormal ECG When compared with ECG of 18-Oct-2024 11:36, No significant change was found Confirmed by MD Simmons Venu ([id number]) on 10/19/2024 9:41:44 AM Hadley Johnson MD ECG ORDERABLES EKG [facility] * (ABNORMAL) POCT, Ionized Calcium (10/18/2024 11:02 PM EDT) POC Ionized Calcium 4.30(L) 4.60 - 5.32 mg/dL 10/18/2024 11:06 PM EDT [facility] Smear Cmt LEFT RADIAL POSITIVE COLLATERAL No comment 10/18/2024 11:06 PM EDT [facility] 10/18/2024 11:0 2 PM EDT 10/18/2024 11:05 PM EDT Hadley Johnson MD POCT ORDERABLES - DE VICE [facility],PULMONARY LAB [address] [place] [address], [facility],Pulmonary Lab [address] [facility], [place] * POCT, Lactate (10/18/2024 11:02 PM EDT) Lactate, POC 0.6 0.4 - 0.8 mmol/L 10/18/2024 11:06 PM EDT [facility] Comment LEFT RADIAL POSITIVE COLLATERAL No comment 10/18/2024 11:06 PM EDT [facility] 10/18/2024 11:0 2 PM EDT 10/18/2024 11:05 PM EDT Hadley Johnson MD POCT ORDERABLES - DE VICE [facility],PULMONARY LAB [address] [place] [address], [facility],Pulmonary Lab [address] [place], [place] * POCT, Sodium (10/18/2024 11:02 PM EDT) Sodium 138 136 - 145 mmol/L 10/18/2024 11:06 PM EDT [facility] Smear Comm LEFT RADIAL POSITIVE COLLATERAL No comment 10/18/2024 11:06 PM EDT [facility] 10/18/2024 11:0 2 PM EDT 10/18/2024 11:05 PM EDT Hadley Johnson MD POCT ORDERABLES - DE VICE [facility],PULMON[facility] LAB [address] [place] [address], [facility] [address] [facility], [place] * POCT, Potassium (10/18/2024 11:02 PM EDT) Potassium 4.3 3.5 - 5.1 mmol/L 10/18/2024 11:06 PM EDT [facility] Comment LEFT RADIAL POSITIVE COLLATERAL No comment 10/18/2024 11:06 PM EDT [facility] 10/18/2024 11:0 2 PM EDT 10/18/2024 11:05 PM EDT Hadley Johnson MD POCT ORDERABLES - DE VICE [facility],PULMON[facility] [address] [place] [address], [facility],P[facility] Lab [address] [facility], [place] * (ABNORMAL) POCT, Hematocrit (10/18/2024 11:02 PM EDT) Hematocrit 25.0(L) 40 - 50 % 10/18/2024 11:06 PM EDT [facility] Comment LEFT RADIAL POSITIVE COLLATERAL 10/18/2024 11:06 PM EDT [facility] 10/18/2024 11:0 2 PM EDT 10/18/2024 11:05 PM EDT Hadley Johnson MD POCT ORDERABLES - DE VICE [facility],PULMON[facility] LAB [address] [place] [address], [facility],P[facility] [address] [facility], [place] * (ABNORMAL) POCT, Glucose (10/18/2024 11:02 PM EDT) Glucose POC 206(H) 70 - 108 mg/dL 10/18/2024 11:06 PM EDT [facility] Comment LEFT RADIAL POSITIVE COLLATERAL No comment 10/18/2024 11:06 PM EDT [facility] 10/18/2024 11:0 2 PM EDT 10/18/2024 11:05 PM EDT Hadley Johnson MD POCT ORDERABLES - DE VICE [facility],PULMON[facility] LAB [address] [place] [address], [facility],Pulmonary Lab [address] [place], [place] * POCT, Cooximetry (10/18/2024 11:02 PM EDT) Carboxyhemoglobin 0.0 % 025 11:06 PM EDT [facility] Methemoglobin 0.7 % 10/18/2024 11:06 PM EDT [facility] Oxyhemoglobin, POC 94.8000 % 2024 11:06 PM EDT [facility] Reduced Hemoglobin 4.5 % 2024 11:06 PM EDT [facility] Hemoglobin, POC 8.4 11:06 PM EDT [facility] POC Sample Type Arterial 11:06 PM EDT [facility] Comment LEFT RADIAL POSITIVE COLLATERAL 10/18/2024 11:06 PM EDT [facility] 10/18/2024 11:0 2 PM EDT 10/18/2024 11:05 PM EDT Hadley Johnson MD POCT ORDERABLES - DE VICE [facility],PULMON[facility] LAB [address] [place] [address], [facility],Pulmonary Lab [address] [place], [place] * (ABNORMAL) Urinalysis with Reflex to Microscopic and Culture (10/18/2024 5:26 PM EDT) Color Yellow 10/18/2024 9:15 PM EDT [facility] Clarity Clear 10/18/2024 9:15 PM EDT [facility] Specific [place] 1.016 1.003 - 1.030 10/18/2024 9:15 PM EDT [facility] pH 5.0 5.0 - 8.0 10/18/2024 9:15 PM EDT [facility] Leukocyte Esterase Negative Negative 10/18/2024 9:15 PM EDT [facility] Nitrite Negative Negative 10/18/2024 9:15 PM EDT [facility] Protein Large (300 mg/dL)(A) Negative 10/18/2024 9:15 PM EDT [facility] Glucose Moderate 0 - 99 mg/dL 10/18/2024 9:15 PM EDT [facility] Ketones Negative Negative 10/18/2024 9:15 PM EDT [facility] Blood Large(A) Negative 10/18/2024 9:15 PM EDT [facility] Urobilinogen 0.2 0.2 - 1.0 EU/dL 10/18/2024 9:15 PM EDT [facility] Bilirubin Negative Negative 10/18/2024 9:15 PM EDT [facility] WBC 9(H) 0 - 4 per hpf 10/18/2024 9:15 PM EDT [facility] RBC 50(H) 0 - 4 per hpf 10/18/2024 9:15 PM EDT [facility] Bacteria Negative Negative 10/18/2024 9:15 PM EDT [facility] Squamous Epithelial Cells 2 per hpf 10/18/2024 9:15 PM EDT [facility] Hyaline Casts 1 0 - 4 per lpf 10/18/2024 9:15 PM EDT [facility] Yeast Absent Absent 10/18/2024 9:15 PM EDT [facility] Urine Urine specimen obtained by clean catch procedure / Unknown 10/18/2024 5:26 PM EDT 10/18/2024 8:56 PM EDT Hadley Johnson MD MICROBIOLOGY - [facility] AL ORDERABLES [facility] [address] [place] [address], * Legionella & Streptococcus Pneumoniae Antigen, Urine (10/18/2024 5:26 PM EDT) Legionella Antigen EIA, Urine Presumptive Negative Presumptive Negative 10/19/2024 8:59 AM EDT [facility] Comment: Presumptive Negative for L.pneumophila [...] Presumptive Negative 10/19/2024 8:59 AM EDT [facility] Comment:Presumptive Negative for Pneumococcal Pneumonia, suggesting no recent or current Pneumococcal Infection. Infection due to S.pneumoniae cannot be ruled out since the antigen level present in the specimen may be below the detection limit of the test. Urine Urine specimen / Unknown 10/18/2024 5:26 PM EDT 10/18/2024 8:57 PM EDT Hadley Johnson MD URINE ORDERABLES [facility] [address] [place] [address], * Protein/Creatinine Ratio Panel, Urine (10/18/2024 5:26 PM EDT) Protein Urine, Random 338 mg/dL 10/18/2024 10:06 PM EDT [facility] Comment:Reference range not established for random specimen. Creatinine, Urine, Random 114 mg/dL 10/18/2024 9:30 PM EDT [facility] Comment:Reference range not established for random specimen. Protein/Creatini ne Ratio, Urine 2.96 10/18/2024 10:06 PM EDT [facility] Urine Urine specimen / Unknown 10/18/2024 5:26 PM EDT 10/18/2024 8:57 PM EDT Hadley Johnson MD URINE ORDERABLES [facility] [address] [place] [address], [place] * CT Chest/abdomen+pelvis w/o contrast (10/18/2024 [...] File Room Provider IMG DIGITIZE FILMS NIMESH [phone] * (ABNORMAL) PTH, Intact (10/18/2024 3:00 PM EDT) PTH, Intact 755(H) 18 - 80 pg/mL 10/18/2024 4:18 PM EDT [facility] Blood Blood specimen / Unknown 10/18/2024 3:00 PM EDT 10/18/2024 3:39 PM EDT Hadley Johnson MD LAB BLOOD ORDERABLES Performing Organization Address City/[facility]/ZIP Co de Phone Number [address] * Nasal MRSA Screen, PCR (10/18/2024 2:45 PM EDT) Pathologist [facility] MRSA Result Not Detected Not Detected 4:16 PM EDT [facility] Swab, Anterior Nares Specimen from nose / Unknown 10/18/2024 2:45 PM EDT 10/18/2024 2:58 PM EDT Hadley Johnson MD MICROBIOLOGY - GENER AL ORDERABLES Performing Organization Address [facility] [[email or web address]] Co de Phone Number [address] * Lactic Acid, Plasma (STAT) (10/18/2024 1:43 PM EDT) Pathologist [facility] Lactic Acid 1.2 0.5 - 1.9 mmol/L 10/18/2024 2:11 PM EDT [facility] Blood Blood specimen / Unknown 10/18/2024 1:43 PM EDT 10/18/2024 1:49 PM EDT Hadley Johnson MD LAB BLOOD ORDERABLES Performing Organization Address City/[facility] [[email or web address]] Co de Phone Number [address] * Blood Culture (10/18/2024 12:11 PM EDT) Only the most recent of2 resultswithin the time period is included. Culture Sterile after 5 days 10/23/2024 7:06 AM EDT [facility] Blood Blood specimen / Unknown 10/18/2024 12:11 PM EDT 10/18/2024 12:42 PM EDT Comment:Blood Hadley Johnson MD LAB BLOOD ORDERABLES [facility] [address] * (ABNORMAL) B-Hydroxybutyrate (10/18/2024 12:09 PM EDT) B-Hydroxybutyrate 0.30(H) <0.28 mmol/L 10/18/2024 2:02 PM EDT [facility] Comment: In the presence of uncontrolled diabetes, [...] MD LAB BLOOD ORDERABLES Performing Organization Address City/[facility] [[email or web address]] Co de Phone Number [facility] [address] [place] [address], from Last 3 Months Advance Directives * Full Code (Latest Code Status on File) Date Activated Date Inactivated Comments 10/18/2024 11:07 AM
[2024-11-08 17:19] LABS: Anion Gap 12 (12-20); Blood Urea Nitrogen 39 mg/dL (9-16); Carbon Dioxide 24 mmol/L (22-29); Chloride 107 mmol/L (96-108); Estimated Glomerular Filt Rate 14; Potassium 5.3 mmol/L (3.3-5.1); Sodium 138 mmol/L (135-145)
== END 2024-11-08 13:34 | disposition home or self-care (01) ==
LOC: HO.HMGCLDS 13:33
PROVIDERS: PCP Family Medicine; Visit Provider Internal Medicine Nephrology
DX: N18.4 Chronic kidney disease, stage 4 (severe) (principal)
CPT/HCPCS: 36415; 80051; 82565; 84520

== ENCOUNTER 2024-11-09 15:38 | Outpatient (AMB) | payer MEDICARE, SELFPAY ==
--- NOTE | 2024-11-09 15:51 | HO.NEPHOV ---
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 He was seen in follow-up of his chronic kidney disease after his recent hospital discharge.. He had acute kidney injury on 2 separate occasions in the past needing hemodialysis on both those times. He has biopsy-proven diabetic nephropathy. His blood sugar control has been bad . 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 His blood pressure has been at goal. He has been having edema with significant weight gain. His appetite is good and does not have any hypoglycemia. He has no urinary symptoms. He denied taking nonsteroidal anti-inflammatories. His serum creatinine has been fairly stable. He also has been having panic attacks. He had delirium during his recent illness which is better now. He was clinically hypervolemic at the last visit and Istarted him on Lasix 40 mg b.i.d with improvement in weight and edema. His renal functions have improved as well [facility] Medical History Proteinuria Type 2 diabetes mellitus with diabetic nephropathy Hypertension Acute kidney injury Review of Systems Const All systems reviewed & are unremarkable except as noted in HPI and below Physical Exam Vital Signs: Last Vital Signs Pulse 89 11/09/24 15:56 BP 120/60 11/09/24 15:56 Pulse Ox 98 11/09/24 15:56 Oxygen Delivery Method Room Air 11/09/24 15:56 BMI result Body Mass Index 28.1 Const General: comfortable and no acute distress Orientation/consciousness: patient oriented x3 HEENT Head: Yes normocephalic Mouth: Normal oral and palatal mucosa present Eyes EOM: EOMs intact bilaterally Neck Neck: Yes supple Resp Auscultation: diminished lung sounds Cardio Jugular venous distension: no JVD Rate: regular rate GI Palpation (GI): Soft to palpation Auscultation: normal bowel sounds General: Yes no CVA tenderness Back/Spine/Pelvis Back: no CVA tenderness Skin General skin exam: no rashes or lesions noted Neuro General: patient oriented x3 and moves all extremities Results Reviewed Nephrology Results: Hgb 8.5 g/dl (14.0-18.0) L 10/26/24 WBC 13.3 X10*3/uL (4.8-10.8) H 10/26/24 Plt Count 262 X10*3/uL (160-400) 10/26/24 Sodium 138 mmol/L (135-145) 11/08/24 Potassium 5.3 mmol/L (3.3-5.1) H 11/08/24 Chloride 107 mmol/L (96-108) 11/08/24 Carbon Dioxide 24 mmol/L (22-29) 11/08/24 BUN 39 mg/dL (9-16) H 11/08/24 Creatinine 4.26 mg/dL (0.5-1.4) H* 11/08/24 Calcium 7.8 mg/dL (8.4-10.2) L 10/26/24 Assessment & Plan Assessment & Plan (1) Edema: Code(s): R60.9 - Edema, unspecified Category: Medical Qualifiers: Edema type: unspecified Qualified Code(s): R60.9 - Edema, unspecified (2) Hyperkalemia: Code(s): E87.5 - Hyperkalemia Category: Medical (3) Acute kidney injury: Code(s): N17.9 - Acute kidney failure, unspecified Category: Medical (4) Secondary hyperparathyroidism (of renal origin): Code(s): N25.81 - Secondary hyperparathyroidism of renal origin Category: Medical (5) Hypertension: Code(s): I10 - Essential (primary) hypertension Category: Medical Qualifiers: Hypertension type: primary hypertension Qualified Code(s): I10 - Essential (primary) hypertension (6) Diabetic nephropathy: Code(s): E11.21 - Type 2 diabetes mellitus with diabetic nephropathy Category: Medical Qualifiers: Diabetes mellitus type: type 2 Qualified Code(s): E11.21 - Type 2 diabetes mellitus with diabetic nephropathy (7) Chronic kidney disease, stage 4 (severe): Code(s): N18.4 - Chronic kidney disease, stage 4 (severe) Category: Medical Plan Ryan recently had BENJAMIN due to heart failure which improved on Lasix 40 mg b.i.d. His renal functions are getting close to baseline. There is no indication for any renal replacement therapy . I shall continue to optimize his medications based on evolving data. I have ordered follow-up blood work in 4 weeks. He will need Procrit injections if his hemoglobin does not improve and if his transferrin saturation is more than 20%. I shall arrange that through my office many indicated. Answered all his and his sister's questions. Follow-up appointment given. Orders: Orders Complete Blood Count Auto Diff 1 Month E11.21 - Type 2 diabetes mellitus with diabetic nephropathy, I10 - Essential (primary) hypertension, N18.4 - Chronic kidney disease, stage 4 (severe), N25.81 - Secondary hyperparathyroidism of renal origin Blood Urea Nitrogen 1 Month E11.21 - Type 2 diabetes mellitus with diabetic nephropathy, I10 - Essential (primary) hypertension, N18.4 - Chronic kidney disease, stage 4 (severe), N25.81 - Secondary hyperparathyroidism of renal origin Calcium 1 Month E11.21 - Type 2 diabetes mellitus with diabetic nephropathy, I10 - Essential (primary) hypertension, N18.4 - Chronic kidney disease, stage 4 (severe), N25.81 - Secondary hyperparathyroidism of renal origin IRON PROFILE 1 Month E11.21 - Type 2 diabetes mellitus with diabetic nephropathy, I10 - Essential (primary) hypertension, N18.4 - Chronic kidney disease, stage 4 (severe), N25.81 - Secondary hyperparathyroidism of renal origin Creatinine 1 Month E11.21 - Type 2 diabetes mellitus with diabetic nephropathy, I10 - Essential (primary) hypertension, N18.4 - Chronic kidney disease, stage 4 (severe), N25.81 - Secondary hyperparathyroidism of renal origin Electrolytes 1 Month E11.21 - Type 2 diabetes mellitus with diabetic nephropathy, I10 - Essential (primary) hypertension, N18.4 - Chronic kidney disease, stage 4 (severe), N25.81 - Secondary hyperparathyroidism of renal origin Coding Level of Care Code Est Pt Level 4 (75129) Diagnoses Edema, unspecified type R60.9 Edema type: unspecified Hyperkalemia E87.5 Acute kidney injury N17.9 Secondary hyperparathyroidism (of renal origin) N25.81 Primary hypertension I10 Hypertension type: primary hypertension Diabetic nephropathy associated with type 2 diabetes mellitus E11.21 Diabetes mellitus type: type 2 Chronic kidney disease, stage 4 (severe) N18.4
[2024-11-09 15:56] VITALS: BP 120/60; PULSE 89; O2SAT 98; BMI 28.1
--- OUTSIDE RECORDS SUMMARY | 2024-11-09 18:04 | XMS_ITS | Data Portability ---
Author Organization [facility], Main Office Address [address] [place] [address] Care Team Providers Care Shipper And Receiving Name Role Phone [facility] Phys[facility] Rehab JESUS RUBIO Phys. Med. & Rehab JONNA BATRES Foundry Helper [facility] Door Paneler RAHUL DIAL Magician Helper CARLOS MARTÍNEZ Cook Pie SANDEE ARRIAGA Automotive Parts Clerk PEE JOHNSON Art Professor VIVI DE Primary Care Provider ARA HOGUE Urologist Assessment No assessment recorded. Plan of Treatment Reminders Order Date Submit Date Provider Last Modified By Organization Details Last Modified Time Details Appointments FOLLOW UP 30MIN 2024 03:45P M Lorenzo Quinteros PA-C Not available Not available Not available Lab urinal ysis comple te, reflex cultur e 2024 025 [facility], [facility] [place], [address], 11/02/2024 10:51:56 CBC w/ auto diff 2024 025 [facility], [address] [place], [address], 11/02/2024 10:51:56 CMP, serum or plasma 2024 025 [facility], [address] [place], [address], 11/02/2024 10:51:56 procal citoni n, serum 2024 025 [facility], [address] [place], [address], 11/02/2024 10:51:56 cultur e, blood 2024 025 [facility], [address] [facility], [place], [address], 11/02/2024 11:01:20 pro BNP (pro B-type natriu retic peptid e), serum or plasma 2024 025 [facility], [address] [place], [address], 11/02/2024 10:51:56 uric acid, serum or plasma 2024 025 [facility], [address], [address], [place], [address], 09/11/2024 16:05:42 alkali ne phosph atase, serum [...] or plasma 2024 025 [facility], [address], [address], [place], [address], 09/11/2024 16:05:35 TSH, ultra- sensit erik, serum 2024 025 [facility] (Centralized Electronic Ordering - All Locations), Patient Can Go To The Location Of Their Choice, 09/11/2024 16:05:41 magnes ium, serum or plasma 2024 025 [facility], [address], [address], [place], [address], 09/11/2024 16:05:44 potass ium, serum or plasma 2024 025 [facility] (Centralized Electronic Ordering - All Locations), Patient Can Go To The Location Of Their Choice, 09/11/2024 16:05:43 lipid panel, serum 2024 025 [email or web address] s [facility], [address], [address], [place], [address], 09/02/2024 15:30:39 albumi n/crea tinine , mass ratio, urine 2024 025 [facility] (Centralized Electronic Ordering - All Locations), Patient Can Go To The Location Of Their Choice, 09/11/2024 16:05:37 ferrit in, serum or plasma 2024 025 [facility], [address], [address], [place], [address], 09/11/2024 16:05:44 retic count, blood 2024 025 [facility], [address], [address], [place], [address], 09/11/2024 16:05:45 CBC w/ auto diff 2024 025 [facility], [address], [address], [place], [address], 09/11/2024 16:05:34 iron + total iron-b inding capaci ty (TIBC) , serum 2024 TEE [facility], [address], [address], [place], [address], 09/11/2024 16:05:36 transf johnathan recept or, solubl [...] care referr al 2023 024 odalis gibbs [facility], [address] [place] [address] [place], [address], 06/11/2024 11:10:30 podiat rist referr al 2023 024 [email or web address] Not available 07/06/2024 13:38:05 Procedures None record ed. Surgeries None record ed. Imaging XR, chest, 2 view 2024 025 [facility] (Imaging), [address] [place] [address], [place], [address], 11/02/2024 10:57:07 Medication Orders cefpod oxime 200 mg tablet 2024 025 [facility]armacy #[id number], [address] [place], [address], 11/02/2024 10:50:46 Zithro max Z-Jase 250 mg tablet 2024 025 [facility]acy #2339, [address] [facility], [place], [address], 11/02/2024 10:50:49 amlodi pine 10 mg tablet 2024 025 [facility]armacy #1130, [phone] [place], [address], 08/22/2024 17:21:09 furose mide 20 mg tablet 2024 025 [facility]armacy #1130, [phone] [place], [address], 08/22/2024 15:27:40 Bactri m DS 800 mg-160 mg tablet 2023 025 [facility]acy #1130, [phone] [place], [address], 08/02/2024 16:10:51 Patient TargetsNo targets recorded. Patient Instructions Encounter Date Encounter Id Patient Instructions Last Modified By Organization Details Last Modified Time 08/03/2024 [id number] leg and ankle edema: care instructions [email or web address] Not available 08/03/2024 15:12:18 08/22/2024 [id number] gout: care instructions [email or web address] Not available 08/22/2024 [...] instructions [email or web address] Not available 08/22/2024 17:17:19 11/02/2024 [id number] At [facility] follow up visit, all current and discharge medications (OTC, herbal therapies, supplements) reviewed and reconciled with patient and or caregiver, including potential side effects, drug interactions, instructions, and the consequences of not taking medication. Reviewed potential barriers to medication adherence, such as side effects from medication or cost of medication. [email or web address] Not available 11/02/2024 10:50:48 Reason for Referral Art Professor Referral for Ulce r of foot Referring Physician: Vivi De, Family Medicine, Encounter Date: 05/17/2024 Referring Physician: Becki De Family Medicine, Encounter Date: 05/27/2024 Results Created Date Observation Date Name Description Value Unit Range Abnormal Flag Note LastModifiedBy Organization Detail LastModifiedTime 08/03/1908/04/2024 COMP. METAB OLIC PANEL (14) glucose 180 mg/dL 70-99 above high normal Not Available [facility] ([facility]) [address] [facility], [place], [address], 08/04/2024 08:08:28 08/03/19 25 08/04/2024 COMP. METAB OLIC PANEL (14) BUN 40 mg/dL 8-27 above high normal Not Available [facility] ([facility]) [address] [facility] [place], [address], 08/04/2024 08:08:28 08/03/19 25 08/04/2024 COMP. METAB OLIC PANEL (14) creatinine 3.46 mg/dL 0.76-1 .27 above high normal Not Available [facility] ([facility]) [address] [facility] [place], [address], 08/04/2024 08:08:28 08/03/19 25 08/04/2024 COMP. METAB OLIC PANEL (14) eGFR 18 mL/mi n/1.7 3 >59 below low normal Not Available [facility] ([facility]) [address] [facility] [place], [address], 08/04/2024 08:08:28 08/03/19 25 08/04/2024 COMP. METAB OLIC PANEL (14) BUN/creatini ne ratio 12 10-24 normal Not Available [facility] ([facility]) [address] [facility] [place], [address], 08/04/2024 08:08:28 08/03/19 25 08/04/2024 COMP. METAB OLIC PANEL (14) sodium 145 mmol/ L 134-14 4 above high normal Not Available [facility] ([facility]) [address] [facility] [place], [address], 08/04/2024 08:08:28 08/03/19 25 08/04/2024 COMP. METAB OLIC PANEL (14) potassium 5.4 mmol/ L 3.5-5. 2 above high normal Not Available [facility] ([facility]) [address] [facility] [place], [address], 08/04/2024 08:08:28 08/03/19 25 08/04/2024 COMP. METAB OLIC PANEL (14) chloride 111 mmol/ L 96-106 above high normal Not Available [facility] ([facility]) [address] [place], [address], 08/04/2024 08:08:28 08/03/19 25 08/04/2024 COMP. METAB OLIC PANEL (14) carbon dioxide, total 19 mmol/ L 20-29 below low normal Not Available [facility] ([facility]) [address] [place], [address], 08/04/2024 08:08:28 08/03/19 25 08/04/2024 COMP. METAB OLIC PANEL (14) calcium 8.1 mg/dL 8.6-10 .2 below low normal Not Available [facility] ([facility]) [address] [place], [address], 08/04/2024 08:08:28 08/03/19 25 08/04/2024 COMP. METAB OLIC PANEL (14) protein, total 6.3 g/dL 6.0-8. 5 normal Not Available [facility] ([facility]) [address] [place], [address], 08/04/2024 08:08:28 08/03/19 25 08/04/2024 COMP. METAB OLIC PANEL (14) albumin 3.3 g/dL 3.8-4. 8 below low normal Not Available [facility] ([facility]) [address] [place], [address], 08/04/2024 08:08:28 08/03/19 25 08/04/2024 COMP. METAB OLIC PANEL (14) globulin, total 3.0 g/dL 1.5-4. 5 Not Available [facility] ([facility]) [address] [place], [address], 08/04/2024 08:08:28 08/03/19 25 08/04/2024 COMP. METAB OLIC PANEL (14) bilirubin, total <0.2 mg/dL 0.0-1. 2 Not Available [facility] ([facility]) [address] [place], [address], 08/04/2024 08:08:28 08/03/19 25 08/04/2024 COMP. METAB OLIC PANEL (14) alkaline phosphatase 182 IU/L 44-121 above high normal Not Available [facility] ([facility]) [address], [place], [address], 08/04/2024 08:08:28 08/03/19 25 08/04/2024 COMP. METAB OLIC PANEL (14) AST (SGOT) 20 IU/L 0-40 normal Not Available [facility] ([facility]) [address], [place], [address], 08/04/2024 08:08:28 08/03/19 25 08/04/2024 COMP. METAB OLIC PANEL (14) ALT (SGPT) 16 IU/L 0-44 normal Not Available [facility] ([facility]) [address] [place], [address], 08/04/2024 08:08:28 08/03/19 25 08/04/2024 UA/M W/RFL X CULTU REBARBARA NE specific gravity 1.018 1.005- 1.030 normal Not Available [facility] ([facility]) [address] [facility] [place], [address], 08/04/2024 08:08:29 08/03/19 25 08/04/2024 UA/M W/RFL X CULTU RECARMITAI NE pH 6.5 5.0-7. 5 normal Not Available [facility] ([facility]) [address] [facility], [place], [address], 08/04/2024 08:08:29 08/03/19 25 08/04/2024 UA/M W/RFL X CULTU RE, BARBARA NE urine-color Yellow yellow Not Available [facility] ([facility]) [address] [place], [address], 08/04/2024 08:08:29 08/03/19 25 08/04/2024 UA/M W/RFL X CULTU RE, ROUTI NE appearance Clear clear Not Available [facility] ([facility]) [address] [place], [address], 08/04/2024 08:08:29 08/03/19 25 08/04/2024 UA/M W/RFL X CULTU RE, BARBARA NE WBC esterase Negati ve negati ve Not Available [facility] ([facility]) [address] [facility], [place], [address], 08/04/2024 08:08:29 08/03/19 25 08/04/2024 UA/M W/RFL X CULTU RE, BARBARA NE protein 4+ negati ve/tra ce abnormal Not Available [facility] ([facility]) [address] [place], [address], 08/04/2024 08:08:29 08/03/19 25 08/04/2024 UA/M W/RFL X CULTU REBARBARA NE glucose 2+ negati ve abnormal Not Available [facility] ([facility]) [address] [place], [address], 08/04/2024 08:08:29 08/03/19 25 08/04/2024 UA/M W/RFL X CULTU RE, BARBARA NE ketones Negati ve negati ve Not Available [facility] ([facility]) [address] [place], [address], 08/04/2024 08:08:29 08/03/19 25 08/04/2024 UA/M W/RFL X CULTU RE, BARBARA NE occult blood Trace negati ve abnormal Not Available [facility] ([facility]) [address] [facility], [place], [address], 08/04/2024 08:08:29 08/03/19 25 08/04/2024 UA/M W/RFL X CULTU RE, ROUTI NE bilirubin Negati ve negati ve Not Available [facility] ([facility]) [address] [facility], [place], [address], 08/04/2024 08:08:29 08/03/19 25 08/04/2024 UA/M W/RFL X CULTU RE, ROUTI NE urobilinogen ,semi-qn 0.2 mg/dL 0.2-1. 0 normal Not Available [facility] ([facility]) [address] [facility], [place], [address], 08/04/2024 08:08:29 08/03/19 25 08/04/2024 UA/M W/RFL X CULTU RE, ROUTI NE nitrite, urine Negati ve negati ve Not Available [facility] ([facility]) [address] [facility], [place], [address], 08/04/2024 08:08:29 08/03/19 25 08/04/2024 UA/M W/RFL X CULTU RE, ROUTI NE microscopic examination See below: Micro scopi c was indic ated and was perfo rmed. Not Available [facility] ([facility]) [address] [facility], [place], [address], 08/04/2024 08:08:29 08/03/19 25 08/04/2024 UA/M W/RFL X CULTU RE, ROUTI NE WBC 0-5 /hpf 0 - 5 Not Available [facility] ([facility]) [address] [facility], [place], [address], 08/04/2024 08:08:29 08/03/19 25 08/04/2024 UA/M W/RFL X CULTU RE, ROUTI NE RBC None seen /hpf 0 - 2 Not Available [facility] ([facility]) [address], [place], [address], 08/04/2024 08:08:29 08/03/19 25 08/04/2024 UA/M W/RFL X CULTU RE, ROUTI NE epithelial cells (non renal) None seen /hpf 0 - 10 Not Available [facility] ([facility]) [address] [facility], [place], [address], 08/04/2024 08:08:29 08/03/19 25 08/04/2024 UA/M W/RFL X CULTU RE, ROUTI NE epithelial cells (renal) ETHICAL HACKER Not Available [facility] ([facility]) [address] [facility], [place], [address], 08/04/2024 08:08:29 08/03/19 25 08/04/2024 UA/M W/RFL X CULTU RE, ROUTI NE casts None seen /lpf none seen Not Available [facility] ([facility]) [address] [facility], [place], [address], 08/04/2024 08:08:29 08/03/19 25 08/04/2024 UA/M W/RFL X CULTU RE, ROUTI NE cast type ETHICAL HACKER Not Available [facility] ([facility]) [address] [facility], [place], [address], 08/04/2024 08:08:29 08/03/19 25 08/04/2024 UA/M W/RFL X CULTU RE, ROUTI NE crystals ETHICAL HACKER Not Available [facility] ([facility]) [address] [facility], [place], [address], 08/04/2024 08:08:29 08/03/19 25 08/04/2024 UA/M W/RFL X CULTU RE, ROUTI NE crystal type ETHICAL HACKER Not Available [facility] ([facility]) [address] [facility], [place], [address], 08/04/2024 08:08:29 08/03/19 25 08/04/2024 UA/M W/RFL X CULTU RE, ROUTI NE mucus threads ETHICAL HACKER Not Available [facility] ([facility]) [address] [facility], [place], [address], 08/04/2024 08:08:29 08/03/19 25 08/04/2024 UA/M W/RFL X CULTU RE, ROUTI NE bacteria None seen none seen/f ew Not Available [facility] ([facility]) [address] [facility], [place], [address], 08/04/2024 08:08:29 08/03/19 25 08/04/2024 UA/M W/RFL X CULTU RE ROUTI NE yeast ETHICAL HACKER Not Available [facility] ([facility]) [address] [facility], [place], [address], 08/04/2024 08:08:29 08/03/19 25 08/04/2024 UA/M W/RFL X CULTU RE, ROUTI NE trichomonas ETHICAL HACKER Not Available [facility] ([facility]) [address] [facility], [place], [address], 08/04/2024 08:08:29 08/03/19 25 08/04/2024 UA/M W/RFL X CULTU RE ROUTMeek NE comment ETHICAL HACKER Not Available [facility] ([facility]) [address] [place], [address], 08/04/2024 08:08:29 08/03/19 25 08/04/2024 UA/M W/RFL X CULTU RE ROUTMeek NE microscopic examination ETHICAL HACKER Not Available [facility] ([facility]) [address] [place], [address], 08/04/2024 08:08:29 08/03/19 25 08/04/2024 UA/M W/RFL X CULTU RE, ROUTI NE urinalysis reflex Commen t This speci men will not refle x to a Urine Cultu re. Not Available [facility] ([facility]) [address] [place], [address], 08/04/2024 08:08:29 08/03/19 25 08/04/2024 B-TYP E NATRI URETI C PEPTI DE B-type natriuretic peptide 145.8 pg/mL 0.0-10 0.0 above high normal Sieme ns [facility] XP metho dolog y Not Available [facility] ([facility]) [address] [place], [address], 08/04/2024 08:08:30 09/08/19 25 09/08/2024 CBC WITH DIFFE RENTI AL/PL ATELE T WBC 7.8 x10e3 /uL 3.4-10 .8 normal Not Available [facility] ([facility]) [address] [place], [address], 09/11/2024 16:05:34 09/08/19 25 09/08/2024 CBC WITH DIFFE RENTI AL/PL ATELE T RBC 3.50 x10e6 /uL 4.14-5 .80 below low normal Not Available [facility] ([facility]) [address] [place], [address], 09/11/2024 16:05:34 09/08/19 25 09/08/2024 CBC WITH DIFFE RENTI AL/PL ATELE T hemoglobin 11.1 g/dL 13.0-1 7.7 below low normal Not Available [facility] ([facility]) [address] [place], [address], 09/11/2024 16:05:34 09/08/19 25 09/08/2024 CBC WITH DIFFE RENTI AL/PL ATELE T hematocrit 33.3 % 37.5-5 1.0 below low normal Not Available [facility] ([facility]) [address] [place], [address], 09/11/2024 16:05:34 09/08/19 25 09/08/2024 CBC WITH DIFFE RENTI AL/PL ATELE T MCV 95 fL 79-97 normal Not Available [facility] ([facility]) [address] [facility], [place], [address], 09/11/2024 16:05:34 09/08/19 25 09/08/2024 CBC WITH DIFFE RENTI AL/PL ATELE T MCH 31.7 pg 26.6-3 3.0 normal Not Available [facility] ([facility]) [address] [place], [address], 09/11/2024 16:05:34 09/08/19 25 09/08/2024 CBC WITH DIFFE RENTI AL/PL ATELE T MCHC 33.3 g/dL 31.5-3 5.7 normal Not Available [facility] ([facility]) [address] [facility], [place], [address], 09/11/2024 16:05:34 09/08/19 25 09/08/2024 CBC WITH DIFFE RENTI AL/PL ATELE T RDW 14.0 % 11.6-1 5.4 Not Available [facility] ([facility]) [address] [facility], [place], [address], 09/11/2024 16:05:34 09/08/19 25 09/08/2024 CBC WITH DIFFE RENTI AL/PL ATELE T platelets 233 x10e3 /uL 150-45 0 normal Not Available [facility] ([facility]) [address] [place], [address], 09/11/2024 16:05:34 09/08/19 25 09/08/2024 CBC WITH DIFFE RENTI AL/PL ATELE T neutrophils 68 % not estab. normal Not Available [facility] ([facility]) [address] [facility], [place], [address], 09/11/2024 16:05:34 09/08/19 25 09/08/2024 CBC WITH DIFFE RENTI AL/PL ATELE T lymphs 18 % not estab. normal Not Available [facility] ([facility]) [address] [facility], [place], [address], 09/11/2024 16:05:34 09/08/19 25 09/08/2024 CBC WITH DIFFE RENTI AL/PL ATELE T monocytes 9 % not estab. normal Not Available [facility] ([facility]) [address] [facility], [place], [address], 09/11/2024 16:05:34 09/08/19 25 09/08/2024 CBC WITH DIFFE RENTI AL/PL ATELE T eos 4 % not estab. normal Not Available [facility] ([facility]) [address] [place], [address], 09/11/2024 16:05:34 09/08/19 25 09/08/2024 CBC WITH DIFFE RENTI AL/PL ATELE T basos 0 % not estab. normal Not Available [facility] ([facility]) [address] [place], [address], 09/11/2024 16:05:34 09/08/19 25 09/08/2024 CBC WITH DIFFE RENTI AL/PL ATELE T immature cells ETHICAL HACKER Not Available [facility] ([facility]) [address] [place], [address], 09/11/2024 16:05:34 09/08/19 25 09/08/2024 CBC WITH DIFFE RENTI AL/PL ATELE T neutrophils (absolute) 5.3 x10e3 /uL 1.4-7. 0 normal Not Available [facility] ([facility]) [address] [place], [address], 09/11/2024 16:05:34 09/08/19 25 09/08/2024 CBC WITH DIFFE RENTI AL/PL ATELE T lymphs (absolute) 1.4 x10e3 /uL 0.7-3. 1 normal Not Available [facility] ([facility]) [address] [facility], [place], [address], 09/11/2024 16:05:34 09/08/19 25 09/08/2024 CBC WITH DIFFE RENTI AL/PL ATELE T monocytes(ab solute) 0.7 x10e3 /uL 0.1-0. 9 normal Not Available [facility] ([facility]) [address] [facility], [place], [address], 09/11/2024 16:05:34 09/08/19 25 09/08/2024 CBC WITH DIFFE RENTI AL/PL ATELE T eos (absolute) 0.3 x10e3 /uL 0.0-0. 4 normal Not Available [facility] ([facility]) [address] [place], [address], 09/11/2024 16:05:34 09/08/19 25 09/08/2024 CBC WITH DIFFE RENTI AL/PL ATELE T baso (absolute) 0.0 x10e3 /uL 0.0-0. 2 normal Not Available [facility] ([facility]) [address] [place], [address], 09/11/2024 16:05:34 09/08/19 25 09/08/2024 CBC WITH DIFFE RENTI AL/PL ATELE T immature granulocytes 1 % not estab. Not Available [facility] ([facility]) [address] [place], [address], 09/11/2024 16:05:34 09/08/19 25 09/08/2024 CBC WITH DIFFE RENTI AL/PL ATELE T immature grans (abs) 0.1 x10e3 /uL 0.0-0. 1 Not Available [facility] ([facility]) [address] [place], [address], 09/11/2024 16:05:34 09/08/19 25 09/08/2024 CBC WITH DIFFE RENTI AL/PL ATELE T NRBC ETHICAL HACKER Not Available [facility] ([facility]) [address] [facility], [place], [address], 09/11/2024 16:05:34 09/08/19 25 09/08/2024 CBC WITH DIFFE RENTI AL/PL ATELE T hematology comments: ETHICAL HACKER Not Available [facility] ([facility]) [address] [facility] [place], [address], 09/11/2024 16:05:34 09/08/19 25 09/08/2024 COMP. METAB OLIC PANEL (14) glucose 197 mg/dL 70-99 above high normal Not Available [facility] ([facility]) [address] [facility] [place], [address], 09/11/2024 16:05:35 09/08/19 25 09/08/2024 COMP. METAB OLIC PANEL (14) BUN 50 mg/dL 8-27 above high normal Not Available [facility] ([facility]) [address] [facility] [place], [address], 09/11/2024 16:05:35 09/08/19 25 09/08/2024 COMP. METAB OLIC PANEL (14) creatinine 3.72 mg/dL 0.76-1 .27 above high normal Not Available [facility] ([facility]) [address] [facility], [place], [address], 09/11/2024 16:05:35 09/08/19 25 09/08/2024 COMP. METAB OLIC PANEL (14) eGFR 17 mL/mi n/1.7 3 >59 below low normal Not Available [facility] ([facility]) [address] [facility] [place], [address], 09/11/2024 16:05:35 09/08/19 25 09/08/2024 COMP. METAB OLIC PANEL (14) BUN/creatini ne ratio 13 10-24 normal Not Available [facility] ([facility]) [address] [place], [address], 09/11/2024 16:05:35 09/08/19 25 09/08/2024 COMP. METAB OLIC PANEL (14) sodium 140 mmol/ L 134-14 4 normal Not Available [facility] ([facility]) [address] [place], [address], 09/11/2024 16:05:35 09/08/19 25 09/08/2024 COMP. METAB OLIC PANEL (14) potassium 5.6 mmol/ L 3.5-5. 2 above high normal Not Available [facility] ([facility]) [address] [place], [address], 09/11/2024 16:05:35 09/08/19 25 09/08/2024 COMP. METAB OLIC PANEL (14) chloride 109 mmol/ L 96-106 above high normal Not Available [facility] ([facility]) [address] [place], [address], 09/11/2024 16:05:35 09/08/19 25 09/08/2024 COMP. METAB OLIC PANEL (14) carbon dioxide, total 16 mmol/ L 20-29 below low normal Not Available [facility] ([facility]) [address] [place], [address], 09/11/2024 16:05:35 09/08/19 25 09/08/2024 COMP. METAB OLIC PANEL (14) calcium 8.6 mg/dL 8.6-10 .2 normal Not Available [facility] ([facility]) [address] [place], [address], 09/11/2024 16:05:35 09/08/19 25 09/08/2024 COMP. METAB OLIC PANEL (14) protein, total 6.9 g/dL 6.0-8. 5 normal Not Available [facility] ([facility]) [address] [facility] [place], [address], 09/11/2024 16:05:35 09/08/19 25 09/08/2024 COMP. METAB OLIC PANEL (14) albumin 3.8 g/dL 3.8-4. 8 normal Not Available [facility] ([facility]) [address] [facility] [place], [address], 09/11/2024 16:05:35 09/08/19 25 09/08/2024 COMP. METAB OLIC PANEL (14) globulin, total 3.1 g/dL 1.5-4. 5 Not Available [facility] ([facility]) [address] [facility] [place], [address], 09/11/2024 16:05:35 09/08/19 25 09/08/2024 COMP. METAB OLIC PANEL (14) bilirubin, total 0.3 mg/dL 0.0-1. 2 normal Not Available [facility] ([facility]) [address] [facility] [place], [id number], 09/11/2024 16:05:35 09/08/19 25 09/08/2024 COMP. METAB OLIC PANEL (14) alkaline phosphatase 225 IU/L 44-121 above high normal Not Available [facility] ([facility]) [address] [facility] [place], [address], 09/11/2024 16:05:35 09/08/19 25 09/08/2024 COMP. METAB OLIC PANEL (14) AST (SGOT) 17 IU/L 0-40 normal Not Available [facility] ([facility]) [address] [facility] [place], [address], 09/11/2024 16:05:35 09/08/19 25 09/08/2024 COMP. METAB OLIC PANEL (14) ALT (SGPT) 18 IU/L 0-44 normal Not Available [facility] ([facility]) [address] [place], [address], 09/11/2024 16:05:35 09/08/19 25 09/09/2024 COMP. METAB OLIC PANEL (14) hemoglobin A1C 7.5 % 4.8-5. 6 above high normal Predi abete s: 5.7 - 6.4 Diabe rocky: >6.4 Glyce mary contr ol for adult s with diabe rocky: <7.0 Not Available [facility] ([facility]) [address] [place], [address], 09/11/2024 16:05:35 09/08/19 25 09/08/2024 LIPID PANEL cholesterol, total 187 mg/dL 100-19 9 normal Not Available [facility] ([facility]) [address] [place], [address], 09/11/2024 16:05:35 09/08/19 25 09/08/2024 LIPID PANEL triglyceride s 121 mg/dL 0-149 normal Not Available [facility] ([facility]) [address] [place], [address], 09/11/2024 16:05:35 09/08/19 25 09/08/2024 LIPID PANEL HDL cholesterol 37 mg/dL >39 below low normal Not Available [facility] ([facility]) [address] [place], [address], 09/11/2024 16:05:35 09/08/19 25 09/08/2024 LIPID PANEL VLDL cholesterol leisa 22 mg/dL 5-40 Not Available [facility] ([facility]) [address] [place], [address], 09/11/2024 16:05:35 09/08/19 25 09/08/2024 LIPID PANEL LDL chol calc ([facility]) 128 mg/dL 0-99 above high normal Not Available [facility] ([facility]) [address] [place], [address], 09/11/2024 16:05:35 09/08/19 25 09/08/2024 LIPID 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 Not Available [facility] ([facility]) [address] [facility], [place], [address], 09/11/2024 16:05:35 09/08/19 25 09/09/2024 IRON AND TIBC iron bind.cap.(TI BC) 296 ug/dL 250-45 0 normal Not Available [facility] ([facility]) [address] [facility], [place], [address], 09/11/2024 16:05:36 09/08/19 25 09/09/2024 IRON AND TIBC UIBC 196 ug/dL 111-34 3 normal Not Available [facility] ([facility]) [address] [facility], [place], [address], 09/11/2024 16:05:36 09/08/19 25 09/09/2024 IRON AND TIBC iron 100 ug/dL 38-169 normal Not Available [facility] ([facility]) [address] [facility], [place], [address], 09/11/2024 16:05:36 09/08/19 25 09/09/2024 IRON AND TIBC iron saturation 34 % 15-55 normal Not Available [facility] ([facility]) [address] [place], [address], 09/11/2024 16:05:36 09/08/19 25 09/09/2024 ALBUM IN/CR EATIN INE RATIO ,URIN E creatinine, urine 147.8 mg/dL not estab. normal Not Available [facility] ([facility]) [address] [place], [address], 09/11/2024 16:05:37 09/08/19 25 09/09/2024 ALBUM IN/CR EATIN INE RATIO ,URIN E albumin, urine 6042.6 ug/mL not estab. Resul ts confi rmed on dilut ion. Not Available [facility] ([facility]) [address] [facility], [place], [address], 09/11/2024 16:05:37 09/08/19 25 09/09/2024 ALBUM IN/CR EATIN INE RATIO ,URIN E alb/creat ratio 4088 mg/g_ creat 0-29 above high normal Madison l: 0 - 29 Moder ately incre ased: 30 - 300 Sever richard incre ased: >300 Not Available [facility] ([facility]) [address] [facility], [place], [address], 09/11/2024 16:05:37 09/08/19 25 09/09/2024 VITAM IN B12 AND FOLAT E vitamin B12 821 pg/mL 232-12 45 normal Not Available [facility] ([facility]) [address] [facility], [place], [address], 09/11/2024 16:05:38 09/08/19 25 09/09/2024 VITAM IN B12 AND FOLAT E folate (folic acid), serum 4.2 NG/mL >3.0 normal A serum folat e asuncion ntrat ion of less than 3.1 ng/mL is consi dered to repre sent clini leisa defic iency . Not Available [facility] ([facility]) [address] [facility], [place], [address], 09/11/2024 16:05:38 09/08/19 25 09/10/2024 CALCI TRIOL (1,25 DI-OH VIT D) calcitriol(1 ,25 di-oh vit D) 31.1 pg/mL 24.8-8 1.5 Not Available [facility] ([facility]) [address] [facility], [place], [address], 09/11/2024 16:05:39 09/08/19 25 09/09/2024 VITAM IN [...] um and D. Millie caputo [place]: [facility] . 2. Ashly huang MF, Chela grey [place], Todd off-F errar i BAILEY, et al. Evalu ation , treat ment, and preve ntion of vitam in D defic iency : an Endoc rine Socie ty clini leisa pract ice guide line. JCEM. 2010; 96(7) :1911 -30. Not Available [facility] ([facility]) [address] [place], [address], 09/11/2024 16:05:39 09/08/19 25 09/11/2024 SOLUB LE TRANS SHIRA N PUNCHBOARD INSERTER TOR soluble transferrin receptor 25.1 nmol/ L 12.2-2 7.3 Not Available [facility] ([facility]) [address] [place], [address], 09/11/2024 16:05:40 09/08/19 25 09/08/2024 TSH RFX ON ABNOR MAL TO FREE T4 TSH 2.360 uIU/m L 0.450- 4.500 normal Not Available [facility] ([facility]) [address] [facility], [place], [address], 09/11/2024 16:05:41 09/08/19 25 09/09/2024 GGT WITH REFLE X AMYLA SE/LI PASE GGT 104 IU/L 0-65 above high normal Not Available [facility] ([facility]) [address] [place], [address], 09/11/2024 16:05:41 09/08/19 25 09/09/2024 GGT WITH REFLE X AMYLA SE/LI PASE amylase 79 U/L 31-110 normal Not Available [facility] ([facility]) [address] [place], [address], 09/11/2024 16:05:41 09/08/19 25 09/09/2024 GGT WITH REFLE X AMYLA SE/LI PASE lipase 41 U/L 13-78 normal Not Available [facility] ([facility]) [address] [place], [address], 09/11/2024 16:05:41 09/08/19 25 09/09/2024 URIC ACID uric acid 5.0 mg/dL 3.8-8. 4 normal Thera peuti c targe t for gout patie nts: <6.0 Not Available [facility] ([facility]) [address] [place], [address], 09/11/2024 16:05:42 09/08/19 25 09/09/2024 POTAS SIUM, HEPAR IN PLASM A potassium, heparin plasma 5.4 mmol/ L 3.5-5. 2 above high normal Not Available [facility] ([facility]) [address] [place], [address], 09/11/2024 16:05:43 09/08/19 25 09/09/2024 MAGNE SIUM magnesium 1.5 mg/dL 1.6-2. 3 below low normal Not Available [facility] ([facility]) [address] [place], [address], 09/11/2024 16:05:44 09/08/19 25 09/08/2024 SHIRA TIN ferritin 155 NG/mL 30-400 normal Not Available [facility] ([facility]) [address] [place], [address], 09/11/2024 16:05:44 09/08/1909/08/2024 RETIC ULOCY TE COUNT reticulocyte count 1.8 % 0.6-2. 6 Not Available [facility] ([facility]) [address] [facility], [place], [address], 09/11/2024 16:05:45 09/08/1909/09/2024 PSA TOTAL (REFL EX TO FREE) reflex criteria COMMEN T The perce nt free PSA is perfo rmed on a refle x basis only when the total PSA is betwe en 4.0 and 10.0 ng/mL . Not Available [facility] ([facility]) [address] [facility], [place], [address], 09/14/2024 06:08:11 09/08/1909/14/2024 PSA TOTAL (REFL EX [...] t be inter prete d as absol catawba evide nce of the prese nce or absen ce of dexter baum se. Not Available [facility] ([facility]) [address] [facility], [place], [address], 09/14/2024 06:08:11 09/08/19 25 09/10/2024 MITOC HONDR IAL (M2) ANTIB GISELL mitochondria l (M2) antibody <20.0 units 0.0-20 .0 Negat erik 0.0 - 20.0 Equiv ocal 20.1 - 24.9 Posit erik >24.9 Mitoc hondr ial (M2) Antib odies are found in 90-96 % of patie nts with prima ry bilia ry cirrh osis. Not Available [facility] ([facility]) [address] [facility], [place], [address], 09/14/2024 06:08:11 09/08/1909/12/2024 WRITT EN AUTHO RIZAT ION written authorizatio n COMMEN T Writt en Autho rizat ion Recei max. Autho rizat ion recei max from [facility] for Link Reque st on 09-12 Logge d by Kwaku Logan Not Available [facility] ([facility]) [address] [facility], [place], [address], 09/21/2024 14:06:26 09/08/1909/09/2024 WRITT EN AUTHO RIZAT ION written authorizatio n COMMEN T Writt en Autho rizat ion Recei max. Autho rizat ion recei max from [facility] for Link Reque st on 09-09 Logge d by Kwaku Logan Not Available [facility] ([facility]) [address] [facility], [place], [address], 09/14/2024 06:08:12 09/08/1909/19/2024 ALK PHOS ISOEN ZYME alkaline phosphatase COMMEN T IU/L Test not perfo rmed. Deter iorat ion occur red durin g speci men handl ing. Not Available [facility] ([facility]) [address] [facility], [place], [address], 09/21/2024 14:06:25 09/08/19 25 09/21/2024 ALK PHOS ISOEN ZYME liver fraction: COMMEN T % Test not perfo rmed. ALKPH prote in requi red to compl ete testi ng. Not Available [facility] ([facility]) [address] [place], [address], 09/21/2024 14:06:25 09/08/19 25 09/21/2024 ALK PHOS ISOEN ZYME bone fraction: COMMEN T % Test not perfo rmed. ALKPH prote in requi red to compl ete testi ng. Not Available [facility] ([facility]) [address] [place], [address], 09/21/2024 14:06:25 09/08/19 25 09/21/2024 ALK PHOS ISOEN ZYME intestinal frac.: COMMEN T % Test not perfo rmed. ALKPH prote in requi red to compl ete testi ng. Not Available [facility] ([facility]) [address] [place], [address], 09/21/2024 14:06:25 09/08/19 25 09/19/[address] PROBL EM request problem COMMEN T Test not perfo rmed. Deter iorat ion occur red durin g speci men handl ing. TEST: [id number] Alkal ine Phosp hatas e Panel : [id number] 2 Not Available [facility] ([facility]) [address] [place], [address], 09/21/2024 14:06:27 09/08/1909/21/[address] PROBL EM request problem COMMEN T Test not perfo rmed. TEST: [id number] 9 Liver Fract ion: Panel : [id number] 2 77212 0 Bone Fract ion: Panel : [id number] 2 10895 1 Intes tinal Frac. : Panel : [id number] 2 ALKPH prote in requi red to compl ete testi ng. Not Available [facility] ([facility]) [address] [place], [address], 09/21/2024 14:06:27 08/18/19 25 08/18/2024 US, echoc ardio gram No observ ation record ed. [email or web address] [facility] (Medical Records) [address] [place], [address], 08/23/2024 15:35:40 10/27/19 25 10/26/2024 XR, chest , 2 view No observ ation record ed. [email or web address] [facility] (Medical Records) [address] [facility], [place], [address], 11/02/2024 10:41:05 Result Notes None recorded. Problems Name Problem SNOMED Code Status Onset Date Resolution Date Notes Provider Name and Address Organization Details Recorded Time Counseli homa Completed 201102/07/2014 RECORDED 07/23/20 12 1:53PM BY CASIE AUSTIN MA, ANNOTATI ON/ADDEN DUM Leigh Ann Quinteros PA-C [address] [address], [place], [address] , [facility] 6 14:37:53 Type 2 diabetes mellitus without complica tion 536179725 Completed 201202/07/2014 RECORDED 04/14/20 13 3:34PM BY CASIE AUSTIN MA, ANNOTATI ON/ADDEN DUM Leigh Ann Quinteros PA-C [address] [address], [place], [address] , [facility] 6 14:37:53 Malaise and fatigue 156716533 Completed 201102/07/2014 RECORDED 04/28/20 12 9:25AM BY LIBBY STEPHEN MA, ANNOTATI ON/ADDEN DUM Leigh Annphill BEEBEC [address] [address], [place], [address] , [facility] 6 14:37:53 Influenz a vaccine needed 50826173669 06 Completed 201202/07/2014 RECORDED 04/14/20 13 3:41PM BY CASIE AUSTIN MA, OFFICE VISIT Leigh Ann Quinteros PA-C [address] [facility] [address], [place], [address] , [facility] 6 14:37:53 Gout 86669976 Active 2013 LUIS Ferrari, [facility] 4 15:12:02 Hyperlip idemia 79542496 Active 2013 LUIS Ferrari, [facility] 4 15:12:02 Chronic kidney disease stage 1 692652411 Completed 201312/15/2016 STORY: ELEVATED MICROALB UMIN; RECORDED 01/19/20 14 2:14PM BY CASIE AUSTIN MA, OFFICE VISIT Leigh Ann Quinteros PA-C [address] [facility] [address], [place], [address] , [facility] 7 14:56:27 Displace ment of lumbar interver tebral disc without myelopat hy 20492328 Active 2013 SEES PSSP LUIS Ferrari, [facility] 4 15:12:01 Proteinu nazia 77214809 Active 2013 LUIS Ferrari, [facility] 4 15:12:02 Obesity 594359172 Active 2013 LUIS Ferrari, [facility] 4 15:12:02 Infectiv e otitis externa 74892187 Completed 201102/07/2014 RECORDED 07/23/20 12 1:53PM BY CASIE AUSTIN MA, ANNOTATI ON/ADDEN DUM Leigh Ann Quinteros PA-C [address] [facility] [address], [place], [address] , [facility] 6 14:37:53 Active or passive immuniza tion Completed 201102/07/2014 RECORDED 07/23/20 12 2:00PM BY CASIE AUSTIN MA, OFFICE VISIT Leigh Ann Quinteros PA-C [address] [facility] [address], [place], [address] , [facility] 6 14:37:53 Administ ration of diphther ia and tetanus vaccine Completed 201202/07/2014 RECORDED 11/23/19 13 2:44PM BY CASIE AUSTIN MA, ANNOTATI ON/ADDEN DUM Leigh Ann Quinteros PA-C [address] [facility] [address], [place], [address] , [facility] 6 14:37:53 Urolith Active 2013 HAS SEEN UROLOGY LUIS Ferrari, [facility] 4 15:12:02 Scrotal varices Active 2013 LUIS Ferrari, [facility] 4 15:12:02 Adult health examinat ion Completed 201303/06/2014 RECORDED 01/19/20 14 2:13PM BY CASIE AUSTIN MA, ANNOTATI ON/ADDEN DUM Leigh Ann Quinteros PA-C [address] [facility] [address], [place], [address] , [facility] 6 14:37:53 Counseli ng Completed 201103/06/2014 RECORDED 07/23/20 12 1:53PM BY CASIE AUSTIN MA, JOSAFATATI ON/ADDEN DUM Leigh Ann Quinteros PA-C [address] [facility] [address], [place], [address] , [facility] 6 14:37:53 Type 2 diabetes mellitus without complica tion 737048280 Completed 201203/06/2014 RECORDED 04/14/20 13 3:34PM BY CASIE AUSTIN MA, ANNOTATI ON/ADDEN DUM Leigh Annmitesh Quinteros [place]- [address] [facility] [address], [place], [address] , [facility] 6 14:37:53 Malaise and fatigue 247410324 Completed 201103/06/2014 RECORDED 04/28/20 12 9:25AM BY LIBBY STEPHEN MA, ANNOTATI ON/ADDEN DUM [facility] [address] [facility] [address], [place], [address] , [facility] 6 14:37:53 Influenz a vaccine needed 92305658500 06 Completed 201203/06/2014 RECORDED 04/14/20 13 3:41PM BY CASIE AUSTIN MA, OFFICE VISIT Leigh Ann HENLEY [address] [place] [address] [address], [place], [address] , [facility] 6 14:37:53 Insomnia 363605990 Active 2013 Elena Mata MA [facility], [facility] 4 15:12:01 Infectiv e otitis externa 59660987 Completed 201103/06/2014 RECORDED 07/23/20 12 1:53PM BY CASIE AUSTIN MA, ANNOTATI ON/ADDEN DUM Leigh Annmitesh BEEBE [address] [facility] [address], [place], [address] , [facility] 6 14:37:53 Active or passive immuniza tion Completed 201103/06/2014 RECORDED 07/23/20 12 2:00PM BY CASIE AUSTIN MA, OFFICE VISIT Leigh Ann Quinteros PA-C [address] [place] [address] [address], [place], [address] , [facility] 6 14:37:53 Administ ration of diphther ia and tetanus vaccine Completed 201203/06/2014 RECORDED 11/23/19 13 2:44PM BY CASIE AUSTIN MA, ANNOTATI ON/ADDEN DUM Leigh Ann Quinteros PA-C [address], [place], [address] , [facility] 6 14:37:53 Otitis media 22208124 Completed 01/15/2017 LUIS Ward, [facility] 7 14:00:47 Disorder of cellular componen t of blood 235889562 Completed 201308/20/2024 Vivi De MD [address], [place], [address] , [facility] 5 22:35:18 Uncontro lled type 2 diabetes mellitus 160974921 Completed 201301/05/2017 RECORDED 01/21/20 14 11:18AM BY SHANE KITCHENIC AL SUMMARY Leigh Ann Quinteros PA-C [address], [place], [address] , [facility] 7 12:05:05 Renal disorder due to type 2 diabetes mellitus 046065729 Active [address] [facility] 4 18:06:38 Otitis externa 0932978 Completed 01/15/2017 LUIS Ward, [facility] 7 14:00:31 Body mass index 30+ - obesity 473249103 Completed 05/13/2017 Leigh Ann Quinteros PA-C [address], [place], [address] , [facility] 7 17:10:10 Type 2 diabetes mellitus 15109764 Completed 01/05/2017 Leigh Ann Quinteros PA-C [address], [place], [address] , [facility] 7 12:04:58 Tachycar jimi 6403481 Completed 08/17/2023 Vivi De MD [address] [facility] [address], [place], [address] , [facility] 4 16:02:45 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 55052373 Active LUIS Ferrari, [facility] 4 15:12:02 Primary erectile dysfunct ion 087225567 Active LUIS Ferrari, [facility] 4 15:12:02 Hyperkal emia 84470932 Completed 202008/23/2023 Vivi De MD [address] [facility] [address], [place], [address] , [facility] 4 13:51:59 Chronic kidney disease stage 3 293637577 Completed 11/24/2023 Vivi De MD [address] [facility] [address], [place], [address] , [facility] 4 19:07:37 Noncompl iance with therapeu tic regimen 616283698 Active 2017 LUIS Ferrari, [facility] 4 15:12:01 Diabetic on insulin 302108611 Active 2017 LUIS Ferrari, [facility] 4 15:12:01 Poor short-te rm memory 703905400 Active 2019 LUIS Ferrari, [facility] 4 15:12:02 Hyperten sive renal disease 13582138 Active 2019 DX: I12.9 Not Available [facility] 4 18:06:38 Iliopsoa s bursitis of right hip 44348134352 96781 Completed 202008/17/2023 Vivi De MD [address] [address], [place], [address] , [facility] 4 15:47:00 Hypomagn esemia 928623005 Active 2020 Not Available [facility] 4 18:06:37 Acute kidney injury 72018923 Completed 202008/15/2023 Vivi De MD [address], [place], [address] , [facility] 4 15:46:57 Hyperten kiko monitori ng status 083030340 Active 2023 dis-enro ll Tasia Gideon null, [facility] 4 09:51:37 Chronic kidney disease stage 4 751407643 Active 2023 Vivi De MD [address], [place], [address] , [facility] 4 19:07:44 Hyperpar athyroid ism due to renal insuffic iency 97994121 Active 2023 Vivi De MD [address], [place], [address] , [facility] 4 07:19:59 Heart failure 79144865 Active 2024 Lorenzo Quinteros PA-C [address], [place], [address] , [facility] 5 09:19:32 Problem Notes None recorded. Procedures Surgical History Date Name Laterality Status Provider Name and Address Organization Details Recorded Time 08/22/19 25 Advanced Care Planning completed Vivi De MD [address], [place], [address], [facility] 08/20/2024 22:29:02 08/17/19 24 Advanced Care Planning completed Vivi De MD [address], [place], [address], [facility] 08/15/2023 15:44:21 05/04/20 23 removal of catheter completed Yesi Farris [facility] 05/06/2023 13:15:36 04/10/20 23 Diabetic Foot Exam (Monofilament) completed Vivi De MD [address] [address], [place], [address], [facility] 04/10/2023 13:37:37 03/26/20 23 retrograde pyelogram completed Yesi Farris [facility] 03/27/2023 09:26:09 03/26/20 23 ureteric lithotripsy completed Yesi Farris [facility] 03/27/2023 09:26:39 03/26/20 23 insertion of stent into ureter completed Yesi Farris [facility] 03/27/2023 09:26:57 07/15/20 22 Advanced Care Planning completed Felicita Cai [facility] 07/17/2022 13:15:29 03/17/20 22 Diabetic Foot Exam (Monofilament) completed Vivi De MD [address] [facility] [address] [facility], [place], [address], [facility] 03/17/2022 15:17:06 06/18/20 21 Advanced Care Planning completed Vivi De MD [address] [address], [place], [address], [facility] 06/18/2021 08:50:42 06/18/20 21 Diabetic Foot Exam (Monofilament) completed Vivi De MD [address], [address], [facility] 06/18/2021 18:56:54 06/04/20 20 Six-Item Cognitive Test completed Casie badillo MA [facility] 06/04/2020 15:16:46 09/15/19 20 Colonoscopy completed Casie badillo MA [facility] 06/04/2020 15:14:36 04/15/20 19 Mini-Cog Test completed Casie badillo MA [facility] 04/15/2019 15:42:06 09/20/19 19 Diabetic Foot Exam (Monofilament) completed Celia Ortiz MA [facility] 09/20/2018 14:36:35 04/16/20 18 Diabetic Foot Exam (Monofilament) completed Clemencia Lindsey MA [facility] 04/16/2018 14:44:34 03/05/20 18 Diabetic Foot Exam (Monofilament) completed Clemencia Lindsey MA [facility] 03/05/2018 12:51:44 01/27/20 18 Diabetic Foot Exam (Monofilament) completed Clemencia Lindsey MA [facility] 01/26/2018 09:37:53 12/09/19 18 Diabetic Foot Exam (Monofilament) completed Dottie Moe MA [facility] 12/08/2017 15:02:35 07/27/18 58 tonsillectomy completed Hadley Main MA [facility] 07/15/2022 14:41:22 Imaging Results Imaging Date Name Status LastModified by Organization Details LastModified Time 08/18/2024 US, echocardiogram completed [email or web address] [facility] (Medical Records) [address] [place] [address], [address], 08/23/2024 15:35:40 10/26/2024 XR, chest, 2 view completed [facility] (Medical Records) [address] [place] [address], [address], 11/02/2024 10:41:05 Procedure Notes None recorded. Medical Equipment None Reported. Allergies Allergen ID Allergen Name Allergen Category Reaction Reaction Severity Criticality Documentation Date Start Date Code Code System Note Provider Name and Address Organization Details Recorded Time 12386 Victoza medicatio n abdominal pain Not available Not available 04/16/2018 14864 3 RxNorm Leigh Ann Aldair PELAEZ [address], [place], [address], [place] [facility] 8 15:07:08 61930 liragluti de medicatio n other Not available Not available 05/20/20212020 01998 8 RxNorm Leisa Melvin lucia, [facility] 1 10:45:47 67842 Product containin g angiotens in-conver ting enzyme inhibitor (product) medicatio n Not available Not available low 11/24/2023 57827 009 SNOMED See renal note Vivi De MD [address] [facility] [address], [place] [facility] [address], [facility] 4 19:07:27 Medications Name Sig Start Date [...] Updated DateTime 4 177.8 cm 30.4 kg/m2 21910.5 8 g 86 /min 96 % 96 % 98.1 [degF] 125 mm[Hg] 66 mm[Hg] Casie stubbs MA [facility] 4 14:52:11 Date Recorded Body height Body mass index (BMI) Body weight Heart rate Oxygen saturation Oxygen saturation in Arterial blood by Pulse oximetry Body temperature Systolic blood pressure Diastolic blood pressure Provider Name and Address Organization Details Last Updated DateTime 4 177.8 cm 31.2 kg/m2 36796.2 4 g 82 /min 97 % 97 % 98.3 [degF] 135 mm[Hg] 63 mm[Hg] [facility] 4 15:24:10 Date Recorded Body height Provider Name an d Address Organization Details Last Updated DateTime 08/03/2024 177.8 cm Azra Torres MA [facility] [place] 08/03/2024 14:36:10 Date Recorded Body mass index (BMI) Body weight Heart rate Oxygen saturation Oxygen saturation in Arterial blood by Pulse oximetry Body temperature Systolic blood pressure Diastolic blood pressure Provider Name and Address Organization Details Last Updated DateTime 5 32.3 kg/m2 264344. 28 g 86 /min 97 % 97 % 98.4 [degF] 154 mm[Hg] 70 mm[Hg] Jaci santacruz MA [facility] [place] 5 14:43:16 Date Recorded Body height Body mass index (BMI) Body weight Heart rate Oxygen saturation Oxygen saturation in Arterial blood by Pulse oximetry Body temperature Systolic blood pressure Diastolic blood pressure Provider Name and Address Organization Details Last Updated DateTime 5 177.8 cm 30.6 kg/m2 01806.1 7 g 84 /min 96 % 96 % 98.3 [degF] 150 mm[Hg] 66 mm[Hg] Casie stubbs MA [facility] [place] 5 15:25:23 Date Recorded Systolic blood pressure Diastolic blood pressure Provider Name and Address Organization Details Last Updated DateTime 08/22/2024 154 mm[Hg] 72 mm[Hg] Elena Mata MA [facility] 08/22/2024 16:14:01 Date Recorded Body height Body mass index (BMI) Body weight Oxygen saturation Oxygen saturation in Arterial blood by Pulse oximetry Heart rate Body temperature Systolic blood pressure Diastolic blood pressure Provider Name and Address Organization Details Last Updated DateTime 5 177.8 cm 30.5 kg/m2 23124.3 8 g 97 % 97 % 91 /min 100.4 [degF] 163 mm[Hg] 77 mm[Hg] Dottie Moe MA [facility] 5 09:51:44 Social History Question Answer Notes LastModified by Organizat ion Details LastModified Time Tobacco Smoking Status Never Smoker La Nena lucia [facility] 03/30/2014 15:10:37 Do You Have An Advance [...] not available 06/04/2020 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 08/15/2023 18:06:39 zoster live 5 completed LUIS Hanks [facility] 03/05/2018 13:05:03 zoster live 7 completed LUIS Ferrari [facility] 08/17/2023 15:12:09 COVID-19, mRNA, LNP-S, PF, 100 mcg/0.5mL dose or 50 mcg/0.25mL dose 1 completed LUIS Ferrari [facility] 08/17/2023 15:12:08 COVID-19, mRNA, LNP-S, PF, 100 mcg/0.5mL dose or 50 mcg/0.25mL dose 1 completed LUIS Ferrari [facility] 08/17/2023 15:12:08 COVID-19, mRNA, LNP-S, PF, 100 mcg/0.5mL dose or 50 mcg/0.25mL dose 1 completed LUIS Ferrari [facility] 08/17/2023 15:12:08 pneumococcal polysaccharide PPV23 9 completed LUIS Ferrari, [facility] 08/17/2023 15:12:08 Influenza, split virus, quadrivalent, PF 5 completed LUIS Ferrari, [facility] 08/17/2023 15:12:09 Pneumococcal conjugate PCV 13 8 completed LUIS Ferrari, [facility] 08/17/2023 15:12:08 Influenza, split virus, trivalent, PF 4 completed LUIS Ferrari, [facility] 08/17/2023 15:12:09 Influenza, high-dose, quadrivalent, PF 1 completed LUIS Ferrari, [facility] 08/17/2023 15:12:08 Influenza, split virus, quadrivalent, PF 7 completed LUIS Ferrari, [facility] 08/17/2023 15:12:09 Influenza, high-dose, quadrivalent, PF 0 completed LUIS Ferrari, [facility] 08/17/2023 15:12:08 Influenza, split virus, quadrivalent, PF 8 completed LUIS Ferrari, [facility] 08/17/2023 15:12:09 Influenza, high-dose, trivalent, PF 9 completed LUIS Ferrari, [facility] 08/17/2023 15:12:09 Td (adult), 2 Lf tetanus toxoid, preservative free, adsorbed 2 completed LUIS Ferrari, [facility] 08/17/2023 15:12:09 Influenza, high-dose, quadrivalent, PF 2 completed LUIS Ferrari, [facility] 08/17/2023 15:12:08 Influenza, split virus, quadrivalent, PF 6 completed Not Available [facility] 08/13/2019 02:22:04 influenza, seasonal, intradermal, preservative free 2 completed Not Available [facility] 08/15/2023 18:06:39 Tdap 2 completed Not Available [facility] 08/15/2023 18:06:39 pneumococcal polysaccharide PPV23 2 completed Not Available [facility] 08/15/2023 18:06:38 influenza, seasonal, intradermal, preservative free 3 completed Not Available [facility] 08/15/2023 18:06:39 Influenza, high-dose, quadrivalent, PF 3 completed LUIS Zhao, [facility] 04/10/2023 13:42:39 Influenza, high-dose, trivalent, PF 4 completed LUIS Zhao, [facility] 04/11/2024 12:43:47 Past Encounters Encounter ID Performer Location Encounter Start Date Encounter Closed Date Diagnosis/Indication Diagnosis SNOMED-CT Code Diagnosis ICD10 Code Diagnosis Note [id number] [facility] [id number] [facility] [address] [place] [address] 01/14/2012 00:00:00 [id number] autoEComm erce [address] [facility] [address] [place] [address] 02/06/2012 00:00:00 [id number] autoEComm erce [address] [facility] [address] [place] [address] 04/28/2012 00:00:00 [id number] autoEComm erce [address] [facility] [address] [place] [address] 07/23/2012 00:00:00 [id number] auto[facility]Comm erce [address] [facility] [address] [place] [address] 11/22/2012 00:00:00 [id number] autoEComm erce [address] [facility] [address] [place] [address] 04/14/2013 00:00:00 [id number] autoEComm erce [address] [facility] [address] [place] [address] 10/14/2013 00:00:00 [id number] [facility] [address] [facility] [address] [place] [address] 01/18/2014 00:00:00 [id number] Casie hooker MA Main Office [address] [address] [place] [address] 03/30/2014 15:02:25 03/30/2014 15:47:43 Otitis media 79117965 [id number] Casie hooker MA Main Office [address] [address] [place] [address] 04/03/2014 14:00:31 04/03/2014 14:41:19 Otitis media 66800431 Otitis externa 4490822 Body mass index 30+ - obesity 938120809 [id number] Main Office [address] [address] [place] [address] 04/10/2014 12:42:38 04/10/2014 14:10:01 Type 2 diabetes mellitus 36062742 Gout 33119078 Hyperlipidemia 13667686 Tachycardia 7176821 Needs infl uenza immunization 781304604 [id number] Casie hooker MA Main Office [address] [address] [place] [address] 04/12/2014 11:13:33 04/12/2014 11:52:39 Tachycardia 6581867 Renal diso rder due to type 2 diabetes mellitus 973820377 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 52305264 [id number] Main Office [address] [address] [place] [address] 06/26/2014 14:28:50 06/26/2014 15:25:36 Uncontrolled type 2 diabetes mellitus 068840466 Gout 43011229 [id number] Main Office [address] [address] [place] [address] 09/25/2014 12:48:58 09/25/2014 13:46:32 Uncontrolled type 2 diabetes mellitus 231656385 Chronic ki dney disease stage 1 923018729 Gout 62861494 [id number] Main Office [address] [place] [address] 12/25/2014 12:40:02 12/25/2014 14:04:58 Renal disorder due to type 2 diabetes mellitus 883164730 Chronic ki dney disease stage 1 622437833 Gout 05531251 [id number] Main Office [address] [address] [place] [address] 04/09/2015 13:08:37 04/09/2015 14:08:54 Renal disorder due to type 2 diabetes mellitus 066501941 Hyperlipidemia 81395301 Needs infl uenza immunization 579612383 Chronic ki dney disease stage 1 188313935 Gout 03294737 [id number] Raheem García MD Main Office [address] [address] [place] [address] 07/13/2015 09:21:56 07/13/2015 10:28:30 Renal disorder due to type 2 diabetes mellitus 443646948 E11.29 Varicella vaccination 68 028186 Z23 Primary er ectile dysfunction 813762475 N52.9 [id number] Raheem García MD Main Office [address] [address] [place] [address] 07/31/2015 12:54:40 07/31/2015 14:11:16 Type 2 diabetes mellitus 60006517 E11.9 Uncontroll ed type 2 diabetes mellitus 544446704 E11.65 Uncontroll ed type II DM with [...] Consider premeal insulin. DIsconitnu e regular soda. [id number] Raheem García MD Main Office [address] [address] [place] [address] 07/31/2015 13:44:46 07/31/2015 14:11:24 Renal disorder due to type 2 diabetes mellitus 205940863 E11.29 Total time spent teaching and coordinati [...] ics. Return in 6 weeks with log. [id number] Chelsey mendenhall Main Office [address] [facility] [address] [place] [address] 08/29/2015 12:48:13 08/29/2015 14:02:52 Uncontrolled type 2 diabetes mellitus 909917456 E11.65 UNcontroll ed DM with renal complicati [...] rder due to type 2 diabetes mellitus 431740304 E11.29 Renal disease due to HTN and uncontroll ed DM> PT. is advised to increase hydration. Avoid NSAIDs and eatlow POtassium diet. Continue ACEI as directed. Continue working on improving glycemic control with goal A1c under 7%. [id number] Jose Bell MD Main Office [address] [place] [address] 09/28/2015 13:43:12 09/28/2015 14:44:32 Renal disorder due to type 2 diabetes mellitus 476238619 E11.29 Renal disease due to HTN and uncontroll ed DM> PT. is advised to increase hydration. Avoid NSAIDs and eat low Potassium diet. Repeat BMP and microalbum in Continue ACEI as directed. Continue working on improving glycemic control with goal A1c under 7%. F/u 6 wks. Repeat BMP , microalb., and A1c before next visit. [id number] Raheem García MD Main Office [address] [address] [place] [address] 12/05/2015 14:24:52 12/05/2015 15:05:58 Uncontrolled type 2 diabetes mellitus 920379423 E11.65 Uncontroll ed DM with renal complicati ons. Noncomplia nt to medicines and diet. Strongly advised to start HUmalog premeal at 10 u TID and increase Toujeo to 60 u daily at HS. Continue oral antidiabet ics and return as scheduled in December. Noncomplia nce with treatment 1812859 Z91.19 Hyperkalemia 84189454 E8 7.5 Secondary to chronic renal disease and ACEI. Stable at this point . Will f/u with nephrology as scheduled. Chronic ki dney disease stage 3 502976590 N18.3 [id number] Raheem García MD Main Office [address] [place] [address] 01/15/2016 13:48:04 01/15/2016 14:43:13 Adult health examination 266910101 Z00.00 Renal diso rder due to type 2 diabetes mellitus 810931637 E11.29 Gout 06240971 M10.9 Hyperlipidemia 52026283 E78.5 Body mass index 30+ - obesity 512456012 Z68.30 [id number] Raheem García MD Main Office [address] [address] [place] [address] 02/05/2016 13:46:17 02/05/2016 14:41:03 Uncontrolled type 2 diabetes mellitus 205375319 E11.65 Uncontroll ed DM with renal complicati ons. Noncomplia nt to using Humalog and testing TID. Strongly advised to start HUmalog premeal at 10 u TID and increase Toujeo to 60 u daily at HS. Continue oral antidiabet ics . F/u 6 weeks. Obesity 357209797 E66.9 Renal diso rder due to type 2 diabetes mellitus 257105701 E11.29 F/u with the nephrologi st as scheduled. BP is stable. [id number] Chelsey Mehul mendenhall Main Office [address] [facility] [place] [address] [place] [address] 03/21/2016 15:21:07 03/21/2016 16:34:05 Naty fitzgerald 74856434 H61.23 [id number] Raheem García MD Main Office [address] [facility] [address] [place] [address] 04/29/2016 15:12:17 04/29/2016 16:43:53 Uncontrolled type 2 diabetes mellitus 492793394 E11.65 Uncontroll ed DM with renal complicati ons. Noncomplia nt to using Humalog and testing TID. Strongly advised to start HUmalog premeal at 10 u TID and increase Toujeo to 65 u daily at HS. Continue oral antidiabet ics . ? if taking Glipizide or not. F/u 2 months. Needs infl uenza immunization 783037417 Z23 Renal diso rder due to type 2 diabetes mellitus 617562662 E11.29 F/u with the nephrologi st as scheduled. BP is stable. Chronic ki dney disease stage 3 484553475 N18.3 [id number] Raheem García MD Main Office [address] [facility] [address] [place] [address] 09/01/2016 14:24:47 09/01/2016 15:22:08 Uncontrolled type 2 diabetes mellitus 823685512 E11.65 Increase Toujeo to 75 u daily. Start using Humalog premeal as discussed at 10 u in am and at lunch and 15 before dinner. Test glucose 2 hrpc until next visit. Lower total calories and start exercise acitvity as discussed. Retest BMP and microalbum in. Renal diso rder due to type 2 diabetes mellitus 622466357 E11.29 F/u with the nephrologi st as scheduled in September. BP is stable. Noncomplia nce with treatment 9224207 Z91.19 Discussed ion length . TOtal time of visit 35 minutes. Body mass index 30+ - obesity 474513351 Z68.31 [id number] Raheem García MD Main Office [address] [facility] [address] [place] [address] 12/15/2016 14:22:23 12/15/2016 15:07:26 Uncontrolled type 2 diabetes mellitus 100884169 E11.65 Compliance with premeal insulin is poor. Overall diabetic control is worsening. Will continue TOujeo at 70 u daily. Add Victoza at 0.6 mg daily SC for 1 week,. then if tolerated go to 1.2 mg. F/u 4-6 weeks with log. Renal diso rder due to type 2 diabetes mellitus 312101641 E11.29 F/u with the nephrologi st as scheduled in September. BP is stable. Chronic ki dney disease stage 3 014006224 N18.3 f/u with the nephrologi st as scheduled. Noncomplia nce with treatment 9539325 Z91.19 Discussed ion length . TOtal time of visit 35 minutes. Body mass index 30+ - obesity 199522156 Z68.30 [id number] Peter Gonzales Main Office [address] [facility] [address] [place] [address] 12/24/2016 12:01:17 12/26/2016 12:14:38 [id number] Raheem García MD Main Office [address] [place] [address] 01/05/2017 10:55:52 01/05/2017 12:12:38 Acute injury of kidney 9140023019 8550088 N17.9 F/u with nephrologi as scheduled this afternoon. Labs to be done this afternoon. Renal diso rder due to type 2 diabetes mellitus 468270883 E11.29 Continue Toujeo at 75 u daily. Start HUmalog at 5 u TID premeal. Test glucose TID premeal. Continue low carb diet and return with log in 4 weeks. LOwer GLipizide ER to 5 mg daily to avoid hypoglycem ia. Chronic ki dney disease stage 3 862167051 N18.3 f/u with the nephrologi as scheduled. [id number] Raheem García MD Main Office [address] [facility] [address] [place] [place] [address] 01/15/2017 13:46:35 01/15/2017 14:51:16 Adult health examination 804508643 Z00.00 Varicella vaccination 68 024466 Z23 Screening for malignant neoplasm of colon 298084730 Z12.11 Displaceme nt of lumbar intervertebral disc without myelopathy 97097811 M51.26 Followed as needed by [facility] Proteinuria 80317823 R80 .9 Renal diso rder due to type 2 diabetes mellitus 150554554 E11.29 Continues close follow up to improve blood sugar control Chronic ki dney disease stage 3 595952698 N18.[address] Martínez for renal [id number] Raheem García MD Main Office [address] [place] [address] 02/16/2017 14:02:59 02/16/2017 14:44:01 Renal disorder due to type 2 diabetes mellitus 176614106 E11.29 Continue Toujeo at 74 u daily. Humalog at 5-10 u TID premeal. Test glucose TID premeal. Restart Metfromin ER 500 mg 2 po qd with supper. Lower total calories and increase exercise activity. F/u 6 weeks with repeat A1c. Chronic ki dney disease stage 3 279906287 N18.3 just was seen by nephrologi st Pierce STable condition. Body mass index 30+ - obesity 325169997 Z68.31 [id number] Raheem García MD Main Office [address] [place] [address] 04/01/2017 13:38:26 04/01/2017 15:02:23 Renal disorder due to type 2 diabetes mellitus 427214465 E11.29 Improve consistenc y of pre-prandi al 10 U Humalog. Discussed that if you forget to inject humalog prior to meals, can inject at 5 U during or after eating which may help. Lower total calories, fat intake and increase exercise activity. Improve consistenc y with diet. F/u 6 weeks with repeat A1c. Increase Toujeo to 80 U. Needs infl uenza immunization 417451220 Z23 Body mass index 30+ - obesity 090801217 Z68.31 Improve diet - decrease fats, caloric intake and salt intake. Increase exercise. Proteinuria 37453167 R80 .9 Just seen by Nephrologi Stable condition. Chronic ki dney disease stage 3 443445803 N18.3 Just was seen by nephrologi st [facility] Stable condition. [id number] Chapito Paz MD Main Office [address] [place] [address] 05/13/2017 13:39:04 05/13/2017 14:43:09 Renal disorder due to type 2 diabetes mellitus 795613635 E11.22 Current on meds, asymptomat ic. Glucose readings stable, A1c last checked in 04/01/17 at 10.0, will reassess prior to net visit in 6 wks renal disease stable. seen by nephrolog Chronic ki dney disease stage 3 487160316 N18.3 stable. seen by nephrolog Impacted cerumen 8833113 6 H61.23 cerumen obstructio n present bilaterall y, more prominent on L ear Hyperlipidemia 94736362 E78.1 Body mass index 30+ - obesity 824033424 E66.9 Z68.31 [id number] Raheem García MD Main Office [address] [facility] 207 [facility] [place] [address] 07/10/2017 10:54:28 07/10/2017 12:02:12 Renal disorder due to type 2 diabetes mellitus 537066194 E11.22 STable CKD stg 3 diabetic and [...] daily. Chronic ki dney disease stage 3 855746178 N18.3 stable. seen by nephbhavin bill. Labs are done at nephrologi office. Administra tion of pneumococcal vaccine 49122193 Z23 Body mass index 30+ - obesity 801563315 E66.9 Z68.35 Z68.30 [id number] Hadley chery Main Office [address] [facility] [address] [facility] [place] [address] 12/08/2017 15:00:07 12/08/2017 15:45:19 Renal disorder due to type 2 diabetes mellitus 175262473 E11.22 STable CKD stg 3 diabetic and hypertensi ve. Needs better diabetic control, but struggles with consistenc y in diet and premeal insulin injection. WE discussed that again and will continue trying to improve those issues. [facility] and had labs and A1c done there. He was advised to take 1-2 weeks and test 2 hrpc to do revision on his Humalog dosage. Toujeo is advised at 84 u daily. HUmalog add additional 3 u to sliding scale. Continue testing. F/u with log in 4 weeks. Chronic ki dney disease stage 3 789841348 N18.3 [facility]. [facility]. Body mass index 25-29 - overweight 468099119 E66.3 Z68.28 [id number] Hadley chery Main Office [address] [facility] [address] [place] [address] 01/26/2018 09:26:49 01/26/2018 10:45:39 Renal disorder due to type 2 diabetes mellitus 901104043 E11.22 STable CKD stg 3 disease. [facility] having labs repeated. Diabetic [...] days. Chronic ki dney disease stage 3 124126468 N18.3 [facility]. [facility]. [id number] Raheem García MD Main Office [address] [facility] [address] [place] [address] 03/05/2018 12:46:45 03/05/2018 13:48:52 Hepatitis C screening 756899998 Z11.59 Active or passive immunization 330246764 Z23 Adult heal th examination 546511242 Z00.00 Renal diso rder due to type 2 diabetes mellitus 625676750 E11.29 Continues close follow up to improve blood sugar control Screening for malignant neoplasm of colon 853080442 Z12.11 Administra tion of pneumococcal vaccine 10479758 Z23 Displaceme nt of lumbar intervertebral disc without myelopathy 59878008 M51.26 Followed as needed by [facility] Chronic ki dney disease stage 3 354478780 N18.[address] Martínez for renal [id number] Raheem García MD Main Office [address] [facility] [address] [place] [address] 04/16/2018 14:32:14 04/16/2018 15:26:03 Renal disorder due to type 2 diabetes mellitus 691358809 E11.22 Stable CKD stg 3 disease. REcom. [...] weeks with log. Needs infl uenza immunization 616181527 Z23 Chronic ki dney disease stage 3 657786990 N18.3 Body mass index 25-29 - overweight 764894159 E66.3 Z68.25 Z68.29 Noncomplia nce with therapeutic regimen 896241811 Z91.19 Diabetic on insulin 1707 02243 E11.9 Z79.4 [id number] Raheem García MD Main Office [address] [facility] [address] [place] [address] 09/20/2018 14:29:18 09/20/2018 15:48:17 Renal disorder due to type 2 diabetes mellitus 726885634 E11.22 Pt. is noncomplia nt to medical [...] m. Chronic ki dney disease stage 3 448598274 N18.3 Noncomplia nce with therapeutic regimen 840717112 Z91.19 Diabetic on insulin 1707 09572 E11.9 Z79.4 [id number] Raheem García MD Main Office [address] [address] [place] [address] 04/15/2019 15:10:15 04/15/2019 16:44:44 Adult health examination 427501876 Z00.00 Influenza vaccine needed 0292728220 106 Z23 Administra tion of pneumococcal vaccine 92894148 Z23 Renal diso rder due to type 2 diabetes mellitus 735368023 E11.29 followed by [facility] in [place], [place]. HbA1c was 9.3% on 04/04/2019 . Screening for malignant neoplasm of colon 965069387 Z12.11 Screening for malignant neoplasm of prostate 577843251 Z12.5 [id number] Raheem García MD Main Office [address] [address] [place] [address] 06/04/2020 14:46:40 06/04/2020 16:05:14 Adult health examination 147946043 Z00.00 Influenza vaccine needed 3212914096 106 Z23 Renal diso rder due to type 2 diabetes mellitus 779998392 E11.22 Continue quarterly follow-up of serum creatinine , blood pressure, glycemic control. Followed by renal (Kranthi). Chronic ki dney disease stage 3 711696951 N18.30 Renal hypertension 39488 000 I12.9 Medication s reviewed. Will continue present medication s or changes as indicated. Follow home BP. Gout 23416638 M10.9 Diabetic on insulin 1707 84873 Z79.4 Poor short -term memory 074293431 R41.3 Failed cognitive screening. Declines workup. Feels he has not problems with memory. [id number] [facility]em Garc[facility] MD [facility] [address] [address] [place] [address] 01/04/2021 09:10:39 01/04/2021 14:44:18 Iliopsoas bursitis of right hip 1034208159 272951 M70.71 [id number] Vivi De MD Main Office [address] [address] [place] [address] 06/18/2021 13:02:00 06/18/2021 13:55:14 Chronic kidney disease stage [address] Martínez advised regular follow up. Renal diso rder due to type 2 diabetes mellitus 931698128 E11.22 N18.32 Follows [facility] endo for diabetesLa a1c 06/18/21: 13.1tx per [...] Follows with endoPodiat ry consult provided Adult [facility] th examination 708006419 Z00.00 Patient was counseled on healthy diet, [...] . Advance directives discussed. Influenza vaccine needed 2343756983 106 Z23 Fatigue 89508144 R53.83 Hyperlipidemia 15233604 E78.5 Hypomagnesemia 186705111 E83.42 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 20982133 D64.9 Advance di rective discussed with patient 035695255 Z71.89 MOLST/HCP provided and discussed. Gout 97133920 M10.9 Colitis 76511952 K52.9 Impacted c erumen of bilateral ears 0267504170 113039 H61.23 [id number] Kavita Pierre MA Main Office [address] [facility] [address] [place], [place] [address] [place] [address] 10/02/2021 14:12:30 10/02/2021 14:47:26 Chronic kidney disease stage [address] Martínez advised regular follow up. Renal diso rder due to type 2 diabetes mellitus 951500678 E11.22 Follows [facility] endo for diabetesLa st a1c 06/18/: 13.1tx [...] with endoPodiat ry consult provided Skin lesion 80566284 L98 .9 Pearly lesion on left ear does not use spf.Possib le BCC, vs skin tag will make urgent referral derm. Hypertensi ve renal disease 13976462 I12.9 Low sodium diet discussedC ounseled on medication adherenceC ounseled on diet/exerc iseDoes not check bp at homeRed flags of HTN emergency discussed and when to go to ED. [id number] Vivi De MD Main Office [address] [facility] [address] [facility] [address] 12/09/2021 12:51:48 12/09/2021 13:30:05 Acute hyperkalemia 5137964 E87.5 Has kayexalate for nephro, was supposed to use and admitted to not use it.Has note seen renal since last fall - advised follow upHe is asymptomat ic, will hold ecg for now.Sugar controlled discussed. Renal diso rder due to type 2 diabetes mellitus 866286904 E11.22 Follows [facility] endo for diabetesHb a1d donetx per endo.On [...] provided Chronic ki dney disease stage [address] Martínez advised regular follow up. Hypertensi ve renal disease 40282803 I12.9 Low sodium diet discussedC ounseled on medication adherenceC ounseled on diet/exerc iseDoes not check bp at homeRed flags of HTN emergency discussed and when to go to ED. Skin lesion 13910806 L98 .9 S/p resection follow derms. Adhesive c apsulitis of shoulder 376367509 M75.01 M75.02 Anemia of chronic disease 242890820 D63.8 Will continue to monitor cbc. 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 26161446 D64.9 Will continue to monitor in 3 mo visit. [id number] Dalia Joya Main Office [address] [facility] [address] [place] [address] 03/05/2022 14:01:11 03/05/2022 15:22:09 Partial thickness burn of lower limb 17674724 T24.201A pt is a diabetic, will start antibiotic s to cover for infection. Use silvadene cream bid, mostly on any open areas, avoid maceration . Keep covered when out, can use light covering at home. Call if not improving or if worsening. Requires a tetanus booster 918132749 Z23 due for Td booster [id number] Vivi De MD Main Office [address] [facility] [address] [facility] [place] [address] 03/17/2022 14:29:22 03/17/2022 15:32:37 Renal disorder due to type 2 diabetes mellitus 389523378 E11.22 Follows [facility] endo for diabetesHb a1d done currently 9.9 [...] one Chronic ki dney disease stage [address] Martínez advised regular follow up. Hypertensi ve renal disease 35723721 I12.9 Low sodium diet discussedC ounseled on medication adherence - [facility] order.Coun seled on diet/exerc iseDoes not check bp at homeRed flags of HTN emergency discussed and when to go to ED.Notes home BP wnl. Anemia of chronic disease 519232465 D63.8 Will continue to monitor cbc at annual. 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 34611216 D64.9 Will continue to monitor in 3 mo visit. Essential hypertension 52231007 I10 Edema of l ower extremity 584047011 R60.0 compressio n stocking advised [id number] Leigh Ann Quinteros PA-C Main Office [address] [facility] [address] [place] [address] 05/27/2022 13:44:10 05/27/2022 14:20:42 Pneumonitis 530647273 J18.9 Begin zithromax at 500 mg daily for 1 week. Pt. is advised to take Mucinex for cough. [id number] Felicita Cai Main Office [address] [address] 07/15/2022 14:17:14 07/15/2022 15:35:02 Renal disorder due to type 2 diabetes mellitus 875600716 E11.22 Follows [facility] endo for diabetesHb a1d orderedtx per endo. [...] one Chronic ki dney disease stage [address] Martínez advised regular follow up. Hypertensi ve renal disease 22895181 I12.9 Low sodium diet discussedC ounseled on medication adherence - accuheal order.Coun seled on diet/exerc iseDoes not check bp at homeRed flags of HTN emergency discussed and when to go to ED.Notes home BP wnl. Anemia of chronic disease 894320787 D63.8 Will continue to monitor cbc at annual. Edema of l ower extremity 240963571 R60.0 compressio n stocking advised Adult heal th examination 480282598 Z00.00 Patient was counseled on healthy diet, [...] Medication reconciled . Advance directives discussed. Fatigue 24336049 R53.83 Hyperlipidemia 45182705 E78.5 Hypomagnesemia 105523118 E83.42 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 37310528 D64.9 Will continue to monitor in 3 mo visit. Advance di rective discussed with patient 280627516 Z71.89 MOLST/HCP provided and discussed. Gout 04439563 M10.9 Impacted c erumen of bilateral ears 1502928723 554271 H61.23 Administra tion of viral vaccine 18724046 Z23 Varicella vaccination 68 294269 Z23 758691 Azra Torres MA Main Office [address] [facility] [address] [facility] [place] [address] 04/10/2023 12:52:49 04/10/2023 13:49:56 Renal disorder due to type 2 diabetes mellitus 982324805 E11.22 Follows [facility] for diabetestx per endo. (humalog 15 units TID, tresiba 65 units), reminded to reach out to [facility].Will stop Pioglitazo ne and have care per Endo perhaps he might be a good candidate for GLP1 vs SGLT 2.Tells me last a1c at [facility] was 6.8On statin.Oph thalmology exam has apt [...] in seeing one Hypertensi ve renal disease 82230262 I12.9 bp soft will hold amlodipine . Advised to check bp. Chronic ki dney disease stage [address] Martínez advised regular follow up. Edema of l ower extremity 499039344 R60.0 compressio n stocking advised Insomnia 558029313 G47.0 0 Pericardial effusion 373 058238 I31.39 Likely 2/2 to fluid overload, now on HD. Influenza vaccine needed 5842365529 106 Z23 Abrasion 288831293 T14.8 XXA Right 4th toe, no warmth or fluctuance , no drainage, area cleaned and bacitracin placed and bandage. Advised daily wound check. Call if no improvemen t. Also advised to follow podiatry. [id number] Felicita Cai Main Office [address] [facility] [address] [place] [address] 08/17/2023 14:49:27 08/17/2023 16:07:35 Adult health examination 672804123 Z00.00 Patient was counseled on healthy diet, exercise and nutrition due to Body mass index is 31.6 kg/m? ? ?. Last PSADate: 12/06/21Res ult: 1.5Plan: wants to stop screening. Last Colonoscop y:Date: 09/15/2019R esult: acute colitisPla n: tells me next due in 10 yrs, Vaccines:T d: 03/05/22Zos ter rec:script provided [id number] : 03/05/18PPS V23: 07/23/12, 04/15/19PCV 20: DiscussedI nfluenza: 04/10/23Cov id: 08/17/20, 09/14/20, 06/23/21, encourage updated vaccineRSV : Discussed Routine labs today Immunizati on status reviewed. Will screen based on risk factors. Regular dental and ophtho care advised as well as seat belt and sunscreen use. Distracted driving discussed. Medication reconciled . Advance directives discussed. Advance di rective discussed with patient 161756226 Z71.89 MOLST/HCP provided and discussed. Administra tion of pneumococcal vaccine 27020639 Z23 Administra tion of viral vaccine 74479822 Z29.11 Chronic ki dney disease stage [address] Martínez advised regular follow up. Renal diso rder due to type 2 diabetes mellitus 933189086 E11.22 tx per [facility] endo, a1c/microa lbumin [...] glucose at home Diabetic on insulin 1707 31156 Z79.4 Fatigue 34278369 R53.83 Z00.00 Hyperlipidemia 24904810 E78.5 Z00.00 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 25305450 D64.9 Will continue to monitor in 3 mo visit. Varicella vaccination 68 300298 Z23 Gout 72555694 M10.9 Hyperkalemia 86192436 E8 7.5 Insomnia 435297384 G47.0 0 Noncomplia nce with therapeutic regimen 555339495 Z91.199 Venereal d isease screening 676746991 Z20.2 Z11.3 [id number] Vivi De MD Main Office [address] [place] [address] 11/24/2023 15:25:07 11/24/2023 16:18:16 Vitamin D deficiency 26253999 E55.9 on supplement ation Insomnia 361939174 G47.0 0 Reviewed the risk of benzo use. Will continue current regimen till he is evaluated by sleep medicine.C ontrol substance completed. Displaceme nt of lumbar intervertebral disc without myelopathy 92934965 M51.26 Follows pain management Chronic ki dney disease stage 4 208370129 N18.4 Cont. renal follow up. Hypertensi ve renal disease 20535016 I12.9 Stable on current regimen. Renal diso rder due to type 2 diabetes mellitus 303433207 E11.22 Follows [facility] endo. History of calculus of kidney 276920903 Z87.[address] he had done by urology reveals he has cleared renal stone [id number] Felicita Cai Main Office [address] [place] [address] 12/15/2023 13:23:53 12/15/2023 13:53:43 Acute conjunctivitis 09689147 H10.33 Allergic conjunctivitis 453702316 H10.13 Allergic rhinitis 050942 04 J30.9 Trigger fi nger of left hand 5079471827 0723978 M65.312 [id number] Chapito Paz MD Main Office [address] [facility] [address] [place] [address] 02/24/2024 13:21:08 02/24/2024 14:18:03 Fatigue 20482317 R53.83 No clear etiology. Possible infectious although his only symptoms is fatigue. Does not appear to be mood related. [id number] Felicita Cai Main Office [address] [facility] [address] [place] [address] 03/01/2024 13:49:15 03/01/2024 14:47:08 Fatigue 46224808 R53.83 Z00.00 Alkaline p hosphatase above reference range 905953894 R74.8 Hypertensi ve renal disease 03629099 I12.9 Chronic ki dney disease stage 4 950909120 N18.4 Cont. renal follow up. [id number] Felicita Cai Main Office [address] [facility] [address] [place] [address] 03/07/2024 10:48:01 03/07/2024 11:37:38 Hyperglycemia due to type 2 diabetes mellitus 0399052675 20323 E11.65 Insulin tr eated type 2 diabetes mellitus 791795623 Z79.4 Liver enzy mes level above reference range 224695810 R74.01 Vitamin D deficiency 347 32171 E55.9 on supplement ation, compliance discussed. Urinary tr act infectious disease 57421869 N39.0 -Has fatigue could be uti, will renally dose with levaquin every other day.-Advis ed to monitor glucose.-H ydration enforced. Hyperkalemia 63384882 E8 7.5 -ECG done 03/01/24 visit. Insomnia 185295125 G47.0 0 Reviewed the risk of benzo use. Will continue current regimen till, advised to follow up with sleep medicine for sleep study. Hypertensi ve renal disease 19543851 I12.9 Advised to increase amlodipine to 2 (2.5mg) he has a follow up with renal in 2 weeks. Advised to monitor to bp then. I will re-check with him in 1 week. Chronic ki dney disease stage 4 384051229 N18.4 Cont. renal follow up. [id number] Vivi De MD Main Office [address] [facility] [address] [place] [address] 04/11/2024 10:54:20 04/11/2024 12:28:00 Hyperglycemia due to type 2 diabetes mellitus 1573224446 69276 E11.65 Follows endo. Insulin tr eated type 2 diabetes mellitus 799179299 Z79.4 Liver enzy mes level above reference range 346092265 R74.01 Vitamin D deficiency 347 70558 E55.9 on supplement ation followed by renal. Insomnia 914487670 G47.0 0 -Reviewed the risk of benzo use. Will continue current regimen, Advised to follow up with sleep medicine for sleep study. Hypertensi ve renal disease 00890589 I12.9 Advised to increase amlodipine to 2 (2.5mg) he has a follow up with renal in 2 weeks. Advised to monitor to bp then. I will re-check with him in 1 week. Chronic ki dney disease stage 4 618987814 N18.4 Cont. renal follow up. Influenza vaccine needed 3564906599 106 Z23 65 YEARS AND OLDER Urinary tr act infectious disease 64353128 N39.0 Resolved after tx. [id number] Vivi De MD Main Office [address] [place] [address] 05/17/2024 14:27:11 05/17/2024 15:24:40 Ulcer of foot 50379538 L97.919 He is a diabetic, will cover with abx (bactrim), Granulatio n tissue noted. Area marked 5.5x5.5 cm.CrCl > 30 , Calculated with January 2024 Cr, calculated to be 33.Advised to keep area clean and dry.Angel r protection with Vaseline.A void pedicure.R eferral to professor of physical education provided.Vaibhav alfredo glycemic control encouraged Follow up 1 week. [id number] Felicita Cai Main Office [address] [place] [address] 05/27/2024 15:08:01 05/27/2024 15:44:58 Ulcer of foot 53370565 L97.919 Area is healing well has granulatio n tissue.He did not see professor of physical education . I will refer to wound clinic due to compliance issues and the fact that he is a diabetic,N o further abx needed at this time.Encou raged glycemic control.En couraged to keep the area covered and protected. [id number] Chapito Paz MD Main Office [address] [place] [address] 08/03/2024 14:24:21 08/03/2024 15:28:21 Edema of lower extremity 748721686 R60.0 This is most likely related to his kidney disease. Will recheck kidney labs and will also check a proBNP. Heart failure is a possibilit y but will hold off on an ECHO. Doubt DVT since both LE's are involved. We discussed a reduced salt diet as well as elevation. 283141 Vivi De MD Main Office [address] [facility] [address] [place] [address] 08/22/2024 15:00:03 08/22/2024 16:16:31 Adult health examination 113801227 Z00.00 Patient was counseled on healthy diet, exercise and nutrition due to Body mass index is 30.6 kg/m? ? ?. Last PSADate: 03/01/24Resu lt: 2.9Plan: past age for screening Last Colonoscop y:Date: 09/15/2019R esult: acute colitisPla n: tells me next due in 10 yrs, Vaccines:T d: 03/05/22Zos ter rec: Script provided [id number] : 03/05/18PPS V23: 07/23/12, 04/15/19PCV 20: DiscussedI nfluenza: 04/11/24Cov id: encourage updated vaccineRSV : Discussed Routine labs today Immunizati on status reviewed. Will screen based on risk factors. Regular dental and ophtho care advised as well as seat belt and sunscreen use. Distracted driving discussed. Medication reconciled . Advance directives discussed. Advance di rective discussed with patient 595808855 Z71.89 MOLST/HCP provided and discussed. Renal diso rder due to type 2 diabetes mellitus 806597990 E11.22 tx per [facility] endo, microalbum in [...] glucose at home Diabetic on insulin 1707 49243 Z79.4 Hyperlipidemia 56406717 E78.5 Z00.00 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 63480216 D64.9 Will continue to monitor in 3 mo visit. Gout 51586971 M10.9 Hyperkalemia 03683358 E8 7.5 Fatigue 72866674 R53.83 Z00.00 Insomnia 090181179 G47.0 0 -Reviewed the risk of benzo use. Will continue current regimen, Advised to follow up with sleep medicine for sleep study. Varicella vaccination 68 898085 Z23 Chronic ki dney disease stage [address] Martínez advised regular follow up. Alkaline p hosphatase above reference range 340988323 R74.8 Vitamin D deficiency 347 80983 E55.9 on supplement ation followed by renal. Hypertensi ve renal disease 07419541 I12.9 Bp elevated increase amlodipine to 10mg. Follow up 1 mo. [id number] Vivi De MD Main Office [address] [place] [address] 11/02/2024 09:34:28 11/02/2024 10:57:07 Fever 232145771 R50.9 fever of unknown etiology - d/w Dr. De - check labs, urine, cxrwill rx c empiric abx - to help keep him out of the hospitalre commend probiotics while on abx Chronic ki dney disease stage 4 833449117 N18.4 cont lasix 40mg bid as per renal - next f/u c renal next wedmost likely has cardiorena l syndrome*w ill fwd copy of this ov note to renal* Renal diso rder due to type 2 diabetes mellitus 305264948 E11.22 cont meds, f/u c endo as dir Heart failure 61830323 I 50.9 as per renal note last week was hypervolem ic - began lasix 40mg bid - see ab[place]own 24 lbs from renal ov last weekmost likely has HFpEF d/t results of echo 08.18.24 (see above)chec k labsrec avoid saltdoes not appear pt sees cardiologi st - will discuss c pt at f/u visit next week Dysuria 20495222 R30.0 Health Concerns Section Related Observation LastModified by Organization Detai ls LastModified Time None Recorded Concern Status LastModified by Organization Details LastModified Time None Recorded Advance Directives Directive Y: Anne-Marie Waggoner (sister) Payers Encounter Date Sequence Insurance Name Policy Number Policy Frederick Covered Member ID Frederick Member ID Guarantor Name 05/17/2024 1 [facility] (MEDICARE REPLACEMENT/A DVANTAGE - PPO) [id number] Ryan Conderecque [id number] Ryan Wade Labrecque 05/27/2024 1 [facility] (MEDICARE REPLACEMENT/A DVANTAGE - PPO) [id number] Ryan Wade Labrecque [id number] Ryan Wade Labrecque 08/03/2024 1 [facility] (MEDICARE REPLACEMENT/A DVANTAGE - PPO) [id number] Ryan Wade Labrecque [id number] Ryan Wade Labrecque 08/22/2024 1 [facility] (MEDICARE REPLACEMENT/A DVANTAGE - PPO) [id number] Ryan Conderecque [id number] Ryan Wade Labrecque 11/02/2024 1 [facility] (MEDICARE REPLACEMENT/A DVANTAGE - PPO) [id number] Ryan Wade Labrecvik [id number] Ryna Wade Labrecvik Notes Date Note Type Note [...] has been cleaning the wound with hand roads superintendent and applying cortisone cream. He reports that the wound is not draining, there is no warmth, and it appears to be decreasing in size. Vivi De MD [address] [facility] [address], [place], [address], [facility] 05/18/2024 08:38:49 05/27/2024 text/html Follow up for r ankle wound check, healing well. Completed Bactrim, notes the wound size is decreasing, and improving, has not used anymore cortisone cream or hand roads superintendent. Did schedule a podiatry follow up. Felicita lucia, [facility] 06/08/2024 15:23:11 08/03/2024 text/html He has been [...] had variable control. Chapito Paz MD [address], [address], [facility] 08/03/2024 18:09:03 08/22/2024 text/html Medicare Annual Wellness [...] not at goal. Continues to work with [facility] Endo Follows renal for CKD4 Vivi De MD [address] [facility] [address], [place], [address], [facility] 08/22/2024 17:25:23 11/02/2024 text/html here for hospita l f/u - pna, rsv == no dc summary to reviewapparently he went to [place] [facility] [place] - transferred to [facility] - discharged on 10.22since then, has seen [...] but h/o recurrent uti's Vivi De MD [address] [facility] [address], [place], [address], [facility] 11/04/2024 12:23:31
--- OUTSIDE RECORDS SUMMARY | 2024-11-09 18:04 | XMS_ITS | Clinical Summary ---
Author Organization [facility] Address [address] [facility] [address] [place] [address] Phone Care Team Providers Care Grease Worker Name Role Phone Joanna Angeles MD Primary Care Provider [phone] Allergies Active Allergy Reactions Criticality Noted Date [...] A1c (%). Testing performed or reported by ~[facility], ~a Service of [facility], ~[address] [place] [address]~ 03/21/2019 2:49 PM EDT us Chris Martínez MD LAB BLOOD ORDERABLES Final Resul t [facility] 3 from Last 3 Months or Most Recently Relevant to Health Maintenance Insurance [facility] Medicare [facility] Medicare Care Teams Grease Worker Relationship Specialty Start Date End Date Joanna Angeles MD [address] [address] PCP - General Family Medicine 02/17/23
--- OUTSIDE RECORDS SUMMARY | 2024-11-09 18:04 | XMS_ITS | Clinical Summary ---
Author Organization [facility] Address [address] [place] [address] Care Team Providers Care Home Performance Laborer Name Role Phone Unavailable Primary Care Provider [...] Documents on File Type Date Recorded Patient Teacher Assistant Expl anation Health Care Decision (hx) 02/27/2023 HE ALTH CARE PROXY Health Care Decision (hx) 02/27/2023 HE ALTH CARE PROXY Health Care Decision (hx) 02/27/2023 HE ALTH CARE PROXY
--- OUTSIDE RECORDS SUMMARY | 2024-11-09 18:04 | XMS_ITS | Clinical Summary ---
Author Organization [facility] Address [address] [place] [address] Care Team Providers Care Office Services Representative Name Role Phone Unavailable Primary Care Provider Unavailabl e Allergies No known active allergies Medications allopurinol (ZYLOPRIM) 100 mg tablet Take 1 tablet (100 mg total) by mouth daily. 09/20/19 25 Active Tresiba FlexTouch 100 UNIT/ML prefilled pen injection Inject 65 Units under the skin nightly. 10/07/19 25 Active temazepam (RESTORIL) 15 MG capsule Take 1 capsule (15 mg total) by mouth nightly as needed for sleep. 10/01/19 25 Active sodium bicarbonate 650 MG tabletIndicatio ns:Acute hypoxic respiratory failure (HCC) Take 2 tablets (1,300 mg total) by mouth 2 (two) times a day. 120 tablet 10/23/19 25 025 Active atorvastatin (LIPITOR) 40 MG tabletIndicatio ns:Acute hypoxic respiratory failure (HCC) Take 1 tablet (40 mg total) by mouth daily. 30 tablet 10/23/19 25 025 Active amLODIPine (NORVASC) 10 MG tabletIndicatio ns:Acute hypoxic respiratory failure (HCC) Take 1 tablet (10 mg total) by mouth daily. 30 tablet 10/23/19 25 025 Active predniSONE (DELTASONE) 10 MG tabletIndicatio ns:Acute hypoxic respiratory failure (HCC) Take 40 mg (= 4 tablets) by mouth daily for 1 days, then 30 mg (= 3 tablets) daily for 1 days, then 20 mg (= 2 tablets) daily for 1 days, then 10 mg (= 1 tablet) daily for 1 days. Take with food. 20 tablet 10/23/19 25 Active sevelamer carbonate (RENVELA) 0.8 g packetIndicatio ns:Acute hypoxic respiratory failure (HCC) Take 1 packet (800 mg total) by mouth 3 (three) times a day with meals. 90 packet 10/23/19 25 025 Active amLODIPine (NORVASC) 10 MG tablet Take 1 tablet (10 mg total) by mouth daily. 08/22/19 25 025 Discontinued atorvastatin (LIPITOR) 40 MG tablet Take 1 tablet (40 mg total) by mouth daily. 09/14/19 25 025 Discontinued calcitRIOL (ROCALTROL) 0.25 MCG capsule Take 1 capsule (0.25 mcg total) by mouth daily. 10/12/19 25 025 Discontinued(St op Taking at Discharge) cholecalciferol (CHOLECALCIFERO L) 1.25 MG (20143 UT) capsule Take 1 capsule (50,000 Units total) by mouth once a week. 09/25/19 25 025 Discontinued(St op Taking at Discharge) gabapentin (NEURONTIN) 300 MG capsule Take 1 capsule (300 mg total) by mouth daily. 10/06/19 25 025 Discontinued(St op Taking at Discharge) magnesium oxide (MAG-OX) 400 MG tablet Take 1 tablet (400 mg total) by mouth daily. 09/09/19 25 025 Discontinued(St op Taking at Discharge) sodium bicarbonate 650 MG tablet Take 1 tablet (650 mg total) by mouth 2 (two) times a day. 07/24/20 24 025 Discontinued(St op Taking at Discharge) cefpodoxime (VANTIN) 200 MG tabletIndicatio ns:Acute hypoxic respiratory failure (HCC),Pneumonia due to infectious organism, unspecified laterality, unspecified part of lung Take 1 tablet (200 mg total) by mouth daily. Do not start before October 23, 2024. 2 tablet 10/24/19 25 Active Problems Problem Noted Date Diagnosed Date Acute hypoxic respiratory failure 10/18/2024 Encounters Date Type Department Care Team Description 10/18/2024 4:00 PM EDT Ancillary Procedure [facility] [address] [place] [address] Provider, File Room 10/18/2024 10:27 AM EDT - 10/22/2024 11:46 AM EDT Hospital Encounter [address] [facility] [address] Marcelino Garica MD Elias, Michael, MD Javed, Zohaib, MD Nair, MD Christal Acute hypoxic respiratory failure (HCC) (Primary Dx); Pneumonia due to infectious organism, unspecified laterality, unspecified part of lung Discharge Disposition: Home or Self Care 10/17/2024 Orders Only [facility] [address] [place] [address] Provider, File Room from Last 3 Months Social History Tobacco Use Types Packs/Day Years Used Date Smoking Tobacco: Never Assessed [facility] Utilities Answer Date Recorded In the [...] any time in the past 12 m [facility], were you homeless or living in a m[facility] (including now)? No 10/21/2024 Sex and Gender Information Value Date Recorded Sex Assigned at Male 10/18/2024 10:24 AM EDT Legal Sex Male 5:01 AM EDT Gender Identity Male 10/18/2024 10:24 [...] - 11.0 Thou/uL 10/22/2024 8:07 AM EDT [facility] Platelet Count 243 150 - 450 Thou/uL 10/22/2024 8:07 AM EDT [facility] Hemoglobin 8.4(L) 13.0 - 17.7 g/dL 10/22/2024 8:07 AM EDT [facility] Hematocrit 26.7(L) 39.0 - 54.0 % 10/22/2024 8:07 AM EDT [facility] Red Blood Cell Count 2.87(L) 4.50 - 6.20 Mil/uL 10/22/2024 8:07 AM EDT [facility] MCV 93 80 - 100 fL 10/22/2024 8:07 AM EDT [facility] MCH 29.3 27.0 - 31.0 pg 10/22/2024 8:07 AM EDT [facility] MCHC 31.5 30.0 - 36.0 g/dL 10/22/2024 8:07 AM EDT [facility] RDW 14.6(H) 11.5 - 14.5 % 10/22/2024 8:07 AM EDT [facility] MPV 11.0 7.5 - 12.5 fL 10/22/2024 8:07 AM EDT [facility] nRBC 0.5(H) 0.0 - 0.1 /100 WBC 10/22/2024 8:07 AM EDT [facility] nRBC, Absolute 0.06(H) 0.00 - 0.02 Thou/uL 10/22/2024 8:07 AM EDT [facility] Bands Man 4 % 10/22/2024 9:31 AM EDT [facility] Neutrophils Man 86 % 9:31 AM EDT [facility] Lymphocytes Man 7 % 9:31 AM EDT [facility] Monocytes Man 3 % 10/22/2024 9:31 AM EDT [facility] Abs Neutrophils Count (ANC) 10.6(H) 2.0 - 7.5 Thou/uL 10/22/2024 9:31 AM EDT [facility] Abs Lymphocytes Man 0.8(L) 1.5 - 4.5 Thou/uL 10/22/2024 9:31 AM EDT [facility] Abs Monocytes Man 0.4 0.2 - 1.5 Thou/uL 10/22/2024 9:31 AM EDT [facility] Macrocytes Occasional 10/22/2024 9:31 AM EDT [facility] Polychromasia Occasional 10/22/2024 9:31 AM EDT [facility] Hypochromia Occasional 10/22/2024 9:31 AM EDT [facility] Spherocytes Occasional 10/22/2024 9:31 AM EDT [facility] Blood Blood specimen / Unknown 10/22/2024 7:49 AM EDT 10/22/2024 8:00 AM EDT us Christal Castrejon MD LAB BLOOD ORDERABLES Final Resul t [facility] [address] [place] [address], [place] * (ABNORMAL) Basic Metabolic Panel (Early AM) (10/22/2024 7:49 AM EDT) Only the most recent of2 resultswithin the time period is included. Glucose 145(H) 74 - 106 mg/dL 10/22/2024 8:37 AM EDT [facility] Comment:Fasting: <100 mg/dL, Non-Fasting: <200 mg/dL (ADA 2004) Blood Urea Nitrogen (BUN) 107(H) 9 - 23 mg/dL 10/22/2024 8:37 AM EDT [facility] Creatinine 6.1(H) 0.7 - 1.3 mg/dL 10/22/2024 8:37 AM EDT [facility] eGFR 9(L) >59 10/22/2024 8:37 AM EDT [facility] Comment:CKD-EPI (2020) in mL /min/1.73 sq meters. Sodium 146(H) 136 - 145 mmol/L 10/22/2024 8:37 AM EDT [facility] Potassium 3.8 3.4 - 4.5 mmol/L 10/22/2024 8:37 AM EDT [facility] Chloride 107 98 - 107 mmol/L 10/22/2024 8:37 AM EDT [facility] CO2 23 20 - 31 mmol/L 10/22/2024 8:37 AM EDT [facility] Anion Gap 16(H) 5 - 15 10/22/2024 8:37 AM EDT [facility] Calcium 8.2(L) 8.7 - 10.5 mg/dL 10/22/2024 8:37 AM EDT [facility] BUN/Creatinine Ratio 18 10.0 - 25.0 Ratio 10/22/2024 8:37 AM EDT [facility] Blood Blood specimen / Unknown 10/22/2024 7:49 AM EDT 10/22/2024 8:00 AM EDT us Christal Castrejon MD LAB BLOOD ORDERABLES Final Resul t [facility] [address] [place] [address], [place] * (ABNORMAL) POCT Glucose, Fingerstick (10/22/2024 7:42 AM EDT) Only the most recent of20 resultswithin the time period is included. Pathologist [facility] POC Glucose 150(H) 65 - 99 mg/dL 10/22/2024 7:48 AM EDT Blood specimen / Unknown 10/22/2024 7:42 AM EDT 10/22/2024 7:48 AM EDT us Christal Castrejon MD POINT OF CARE TEST ORDERABLES Fi nal Result HOSPITAL LAB See Below * ECHOCARDIOGRAM COMPREHENSIVE WITH CONTRAST (10/20/2024 12:11 PM EDT) Pathologist [facility] IVS Mean (F:0.6-0.9, M:0.6-1.0) 1.0 cm IVS [...] system. Hadley Johnson MD CV ECHO ORDERABLES Final Result * (ABNORMAL) PHOSPHORUS (10/20/2024 5:31 AM EDT) Only the most recent of3 resultswithin the time period is included. Phosphorus 6.1(H) 2.4 - 5.1 mg/dL 10/20/2024 6:13 AM EDT [facility] Blood Blood specimen / Unknown 10/20/2024 5:31 AM EDT 10/20/2024 5:37 AM EDT Hadley Johnson MD LAB BLOOD ORDERABLES Final Resu lt [facility] [address] [place] [address], * MAGNESIUM (10/20/2024 5:31 AM EDT) Only the most recent of3 resultswithin the time period is included. Magnesium 2.1 1.6 - 2.6 mg/dL 10/20/2024 6:13 AM EDT [facility] Blood Blood specimen / Unknown 10/20/2024 5:31 AM EDT 10/20/2024 5:37 AM EDT us Hadley Johnson MD LAB BLOOD ORDERABLES Final Resu lt [facility] [address] [place] [address], * (ABNORMAL) Comprehensive Metabolic Panel (10/20/2024 5:31 AM EDT) Only the most recent of3 resultswithin the time period is included. Glucose 141(H) 74 - 106 mg/dL 10/20/2024 6:13 AM EDT [facility] Comment:Fasting: <100 mg/dL, Non-Fasting: <200 mg/dL (ADA 2004) Blood Urea Nitrogen (BUN) 100(H) 9 - 23 mg/dL 10/20/2024 6:13 AM EDT [facility] Creatinine 6.6(H) 0.7 - 1.3 mg/dL 10/20/2024 6:13 AM EDT [facility] eGFR 8(L) >59 10/20/2024 6:13 AM EDT [facility] Comment:CKD-EPI (2020) in mL /min/1.73 sq meters. Sodium 143 136 - 145 mmol/L 10/20/2024 6:13 AM EDT [facility] Potassium 4.0 3.4 - 4.5 mmol/L 10/20/2024 6:13 AM EDT [facility] Chloride 108(H) 98 - 107 mmol/L 10/20/2024 6:13 AM EDT [facility] CO2 22 20 - 31 mmol/L 10/20/2024 6:13 AM EDT [facility] Calcium 7.4(L) 8.7 - 10.5 mg/dL 10/20/2024 6:13 AM EDT [facility] Alkaline Phosphatase 150(H) 45 - 128 U/L 10/20/2024 6:13 AM EDT [facility] Aspartate Aminotrans (AST) 37(H) <34 U/L 10/20/2024 6:13 AM EDT [facility] Alanine Aminotrans (ALT) 23 10 - 49 U/L 10/20/2024 6:13 AM EDT [facility] Bilirubin, Total 0.2(L) 0.3 - 1.2 mg/dL 10/20/2024 6:13 AM EDT [facility] Protein, Total 6.8 5.7 - 8.2 g/dL 10/20/2024 6:13 AM EDT [facility] Albumin 3.5 3.4 - 4.8 g/dL 10/20/2024 6:13 AM EDT [facility] BUN/Creatinine Ratio 15 10.0 - 25.0 Ratio 10/20/2024 6:13 AM EDT [facility] Globulin 3.3 1.5 - 3.9 g/dL 10/20/2024 6:13 AM EDT [facility] Albumin/Globulin Ratio 1.0(L) 1.5 - 2.5 Ratio 10/20/2024 6:13 AM EDT [facility] Anion Gap 13 5 - 15 10/20/2024 6:13 AM EDT [facility] Blood Blood specimen / Unknown 10/20/2024 5:31 AM EDT 10/20/2024 5:37 AM EDT us Hadley Johnson MD LAB BLOOD ORDERABLES Final Resu lt [facility] [address] [place] [address], * (ABNORMAL) POCT Blood Gas, Arterial (10/19/2024 3:46 PM EDT) Only the most recent of5 resultswithin the time period is included. Sample Type Arterial 10/19/2024 3:48 PM EDT [facility] pH, Arterial 7.36 7.35 - 7.45 10/19/2024 3:48 PM EDT [facility] Lab pCO2, Arterial 36 35 - 45 mmHG 10/19/2024 3:48 PM EDT [facility] Lab pO2, Arterial 48(LL) 80 - 100 mmHG 10/19/2024 3:48 PM EDT [facility] HCO3 20.0(L) 22 - 26 mmol/L 10/19/2024 3:48 PM EDT [facility] Lab O2 Saturation, Arterial 79.0(L) 95 - 100 % 10/19/2024 3:48 PM EDT [facility] Base Deficit, Arterial 4.5 mmol/L 10/19/2024 3:48 PM EDT [facility] Lab Comment:REFERENCE RANGE: NEG ATIVE 2 TO POSITIVE 2 Liter Flow, I-STAT 3.0 10/19/2024 3:48 PM EDT [facility] Lab Comments POC VENOUS 10/19/2024 3:48 PM EDT [facility] Lab 10/19/2024 3:46 PM EDT 10/19/2024 3:48 PM EDT Hadley Johnson MD POCT ORDERABLES - DEVICE Final Result [facility] [address] [facility] [place] [address], [facility],Pulmonary Lab [address] [facility], [place] * XR Chest 1 view-Portable [...] prior exam Hadley Johnson MD IMG DIAGNOSTIC IMAGING ORDERABL ES Final Result * ECG 12 lead (10/19/2024 9:20 AM EDT) Only the most recent of2 resultswithin the time period is included. Ventricular rate 94 BPM EKG [facility] Atrial rate 94 BPM EKG [facility] P-R interval 138 ms EKG [facility] QRS duration 88 ms EKG [facility] Q-T interval 386 ms EKG [facility] QTC calculation (Bazett) 483 ms EKG [facility] P axis 60 degrees EKG [facility] R axis 19 degrees EKG [facility] T axis 55 degrees EKG [facility] 10/19/2024 9:20 AM EDT Narrative EKG [facility] - 10/19/2024 9:41 AM EDT Normal sinus rhythm Prolonged QT Abnormal ECG When compared with ECG of 18-Oct-2024 11:36, No significant change was found Confirmed by MD Simmons Venu ([id number]) on 10/19/2024 9:41:44 AM Procedure Note Roland Simmons MD - 10/19/2024 Normal sinus rhythm Prolonged QT Abnormal ECG When compared with ECG of 18-Oct-2024 11:36, No significant change was found Confirmed by MD Simmons Venu ([id number]) on 10/19/2024 9:41:44 AM us Hadley Johnson MD ECG ORDERABLES Final Result Performing Organization Address City/[facility]/ZIP Co de Phone Number EKG [facility] * (ABNORMAL) POCT, Ionized Calcium (10/18/2024 11:02 PM EDT) POC Ionized Calcium 4.30(L) 4.60 - 5.32 mg/dL 10/18/2024 11:06 PM EDT [facility] Smear Cmt LEFT RADIAL POSITIVE COLLATERAL No comment 10/18/2024 11:06 PM EDT [facility] 10/18/2024 11:0 2 PM EDT 10/18/2024 11:05 PM EDT us Hadley Johnson MD POCT ORDERABLES - DEVICE Final Result Performing Organization Address [facility] Co de Phone Number [facility] [address] [place] [address], [facility],Pulmonary Lab [address] [facility], [place] * POCT, Lactate (10/18/2024 11:02 PM EDT) [facility] Lactate, POC 0.6 0.4 - 0.8 mmol/L 10/18/2024 11:06 PM EDT [facility] Comment LEFT RADIAL POSITIVE COLLATERAL No comment 10/18/2024 11:06 PM EDT [facility] 10/18/2024 11:0 2 PM EDT 10/18/2024 11:05 PM EDT us Hadley Johnson MD POCT ORDERABLES - DEVICE Final Result Performing Organization Address City/[facility] Co de Phone Number [facility] [address] [place] [address], [facility],Pulmonary Lab [address] [facility], [place] * POCT, Sodium (10/18/2024 11:02 PM EDT) Sodium 138 136 - 145 mmol/L 10/18/2024 11:06 PM EDT [facility] Smear Comm LEFT RADIAL POSITIVE COLLATERAL No comment 10/18/2024 11:06 PM EDT [facility] 10/18/2024 11:0 2 PM EDT 10/18/2024 11:05 PM EDT us Hadley Johnson MD POCT ORDERABLES - DEVICE Final Result [facility] [address] [place] [address], [facility],Pulmonary Lab [address] [place], [place] * POCT, Potassium (10/18/2024 11:02 PM EDT) Potassium 4.3 3.5 - 5.1 mmol/L 10/18/2024 11:06 PM EDT [facility] Comment LEFT RADIAL POSITIVE COLLATERAL No comment 10/18/2024 11:06 PM EDT [facility] 10/18/2024 11:0 2 PM EDT 10/18/2024 11:05 PM EDT us Hadley Johnson MD POCT ORDERABLES - DEVICE Final Result [facility] [address] [place] [address], [facility],Pulmonary Lab [address] [place], [place] * (ABNORMAL) POCT, Hematocrit (10/18/2024 11:02 PM EDT) Hematocrit 25.0(L) 40 - 50 % 10/18/2024 11:06 PM EDT [facility] Comment LEFT RADIAL POSITIVE COLLATERAL 10/18/2024 11:06 PM EDT [facility] 10/18/2024 11:0 2 PM EDT 10/18/2024 11:05 PM EDT us Hadley Johnson MD POCT ORDERABLES - DEVICE Final Result [facility] [address] [place] [address], [facility],Pulmonary Lab [address] [place], [place] * (ABNORMAL) POCT, Glucose (10/18/2024 11:02 PM EDT) Glucose POC 206(H) 70 - 108 mg/dL 10/18/2024 11:06 PM EDT [facility] Comment LEFT RADIAL POSITIVE COLLATERAL No comment 10/18/2024 11:06 PM EDT [facility] 10/18/2024 11:0 2 PM EDT 10/18/2024 11:05 PM EDT us Hadley Johnson MD POCT ORDERABLES - DEVICE Final Result [facility] [address] [place] [address], [facility],Pulmonary Lab [address] [place], [place] * POCT, Cooximetry (10/18/2024 11:02 PM EDT) Carboxyhemoglobin 0.0 % 025 11:06 PM EDT [facility] Methemoglobin 0.7 % 10/18/2024 11:06 PM EDT [facility] Oxyhemoglobin, POC 94.8000 % 2024 11:06 PM EDT [facility] Reduced Hemoglobin 4.5 % 2024 11:06 PM EDT [facility] Hemoglobin, POC 8.4 11:06 PM EDT [facility] POC Sample Type Arterial 11:06 PM EDT [facility] Comment LEFT RADIAL POSITIVE COLLATERAL 10/18/2024 11:06 PM EDT [facility] 10/18/2024 11:0 2 PM EDT 10/18/2024 11:05 PM EDT Hadley Johnson MD POCT ORDERABLES - DEVICE Final Result [facility] [address] [place] [address], [facility],Pulmonary Lab [address] [place], [place] * (ABNORMAL) Urinalysis with Reflex to Microscopic and Culture (10/18/2024 5:26 PM EDT) Color Yellow 10/18/2024 9:15 PM EDT [facility] Clarity Clear 10/18/2024 9:15 PM EDT [facility] Specific [place] 1.016 1.003 - 1.030 10/18/2024 9:15 PM EDT [facility] pH 5.0 5.0 - 8.0 10/18/2024 9:15 PM EDT [facility] Leukocyte Esterase Negative Negative 10/18/2024 9:15 PM EDT [facility] Nitrite Negative Negative 10/18/2024 9:15 PM EDT [facility] Protein Large (300 mg/dL)(A) Negative 10/18/2024 9:15 PM EDT [facility] Glucose Moderate 0 - 99 mg/dL 10/18/2024 9:15 PM EDT [facility] Ketones Negative Negative 10/18/2024 9:15 PM EDT [facility] Blood Large(A) Negative 10/18/2024 9:15 PM EDT [facility] Urobilinogen 0.2 0.2 - 1.0 EU/dL 10/18/2024 9:15 PM EDT [facility] Bilirubin Negative Negative 10/18/2024 9:15 PM EDT [facility] WBC 9(H) 0 - 4 per hpf 10/18/2024 9:15 PM EDT [facility] RBC 50(H) 0 - 4 per hpf 10/18/2024 9:15 PM EDT [facility] Bacteria Negative Negative 10/18/2024 9:15 PM EDT [facility] Squamous Epithelial Cells 2 per hpf 10/18/2024 9:15 PM EDT [facility] Hyaline Casts 1 0 - 4 per lpf 10/18/2024 9:15 PM EDT [facility] Yeast Absent Absent 10/18/2024 9:15 PM EDT [facility] Urine Urine specimen obtained by clean catch procedure / Unknown 10/18/2024 5:26 PM EDT 10/18/2024 8:56 PM EDT us Hadley Johnson MD MICROBIOLOGY - GENERAL ORDERABL ES Final Result [facility] [address] [place] [address], * Legionella & Streptococcus Pneumoniae Antigen, Urine (10/18/2024 5:26 PM EDT) Pathologist [facility] Legionella Antigen EIA, Urine Presumptive Negative Presumptive Negative 10/19/2024 8:59 AM EDT [facility] Comment: Presumptive Negative for [...] Negative Presumptive Negative 10/19/2024 8:59 AM EDT [facility] Comment:Presumptive Negative for Pneumococcal Pneumonia, suggesting no recent or current Pneumococcal Infection. Infection due to S.pneumoniae cannot be ruled out since the antigen level present in the specimen may be below the detection limit of the test. Urine Urine specimen / Unknown 10/18/2024 5:26 PM EDT 10/18/2024 8:57 PM EDT us Hadley Johnson MD URINE ORDERABLES Final Result [facility] [address] [place] [address], [place] * Protein/Creatinine Ratio Panel, Urine (10/18/2024 5:26 PM EDT) Protein Urine, Random 338 mg/dL 10/18/2024 10:06 PM EDT [facility] Comment:Reference range not established for random specimen. Creatinine, Urine, Random 114 mg/dL 10/18/2024 9:30 PM EDT [facility] Comment:Reference range not established for random specimen. Protein/Creatini ne Ratio, Urine 2.96 10/18/2024 10:06 PM EDT [facility] Urine Urine specimen / Unknown 10/18/2024 5:26 PM EDT 10/18/2024 8:57 PM EDT us Hadley Johnson MD URINE ORDERABLES Final Result Performing Organization Address [facility] Co de Phone Number [facility] [address] [place] [address], [place] * CT Chest/abdomen+pelvis w/o contrast (10/18/2024 [...] effusions 9 mm left perifissural lung nodule us Hadley Johnson MD IMG CT ORDERABLES Final Result * CR Chest Archive for Reference only (10/18/2024 3:59 PM EDT) Pina NIMESH - 10/18/2024 3:59 PM EDT This study has been auto finalized and does not contain a result. File Room Provider IMG DIGITIZE FILMS Final Resu lt Performing Organization Address [facility] Co de Phone Number NIMESH [phone] * (ABNORMAL) PTH, Intact (10/18/2024 3:00 PM EDT) Pathologist [facility] PTH, Intact 755(H) 18 - 80 pg/mL 10/18/2024 4:18 PM EDT [facility] Blood Blood specimen / Unknown 10/18/2024 3:00 PM EDT 10/18/2024 3:39 PM EDT us Hadley Johnson MD LAB BLOOD ORDERABLES Final Resu lt Performing Organization Address [facility] [place] [address], * Nasal MRSA Screen, PCR (10/18/2024 2:45 PM EDT) [facility] MRSA Result Not Detected Not Detected 4:16 PM EDT [facility] Swab, Anterior Nares Specimen from nose / Unknown 10/18/2024 2:45 PM EDT 10/18/2024 2:58 PM EDT us Hadley Johnson MD MICROBIOLOGY - GENERAL ORDERABL ES Final Result Performing Organization Address [facility] [place] [address], * Lactic Acid, Plasma (STAT) (10/18/2024 1:43 PM EDT) Lactic Acid 1.2 0.5 - 1.9 mmol/L 10/18/2024 2:11 PM EDT [facility] Blood Blood specimen / Unknown 10/18/2024 1:43 PM EDT 10/18/2024 1:49 PM EDT us Hadley Johnson MD LAB BLOOD ORDERABLES Final Resu lt [facility] [address] [place] [address], [place] * Blood Culture (10/18/2024 12:11 PM EDT) Only the most recent of2 resultswithin the time period is included. Culture Sterile after 5 days 10/23/2024 7:06 AM EDT [facility] Blood Blood specimen / Unknown 10/18/2024 12:11 PM EDT 10/18/2024 12:42 PM EDT Comment:Blood us Hadley Johnson MD LAB BLOOD ORDERABLES Final Resu lt [facility] [address] [place] [address], * (ABNORMAL) B-Hydroxybutyrate (10/18/2024 12:09 PM EDT) B-Hydroxybutyrate 0.30(H) <0.28 mmol/L 10/18/2024 2:02 PM EDT [facility] Comment: In the presence of uncontrolled diabetes, serum beta-hydroxybutyrate levels greater than or equal to 3.80 mmol/L (patients age 16 and over) or greater than or equal to 3.00 mmol/L (patients under age 16) support a clinical diagnosis of Diabetic Ketoacidosis (DKA) - Ref: Diabetes Care 31: 643 (2007). 10/18/2024 12:0 9 PM EDT 10/18/2024 12:44 PM EDT us aHdley Johnson MD LAB BLOOD ORDERABLES Final Resu lt [facility] [address] [place] [address], from Last 3 Months Insurance [employer] MEDICARE Advance Directives * Full Code (Latest Code Status on File) Date Activated Date Inactivated Comments 10/18/2024 11:07 AM
--- OUTSIDE RECORDS SUMMARY | 2024-11-09 18:04 | XMS_ITS | Encounter Summary ---
Author Organization [facility] Address [address] [place] [address] Phone Care Team Providers Care Instrument Mechanic Name Role Phone Joanna Angeles MD Primary Care Provider [phone] Reason for Visit * Reason Comments Med Refill Encounter Details Date Type Department Care Team ([facility] st Contact Info) Description 06/09/2023 Refill [facility] [address] [place] [address] Ahmet Oviedo MD [address] [facility] [address] [place] [address] Social History Tobacco Use Types [...] on filedocumented in this encounter Care Teams Instrument Mechanic Relationship Specialty Start Date End Date Joanna Angeles MD [address] [facility] [address] [place] [id number] PCP - General Family Medicine 02/17/23 documented as of this encounter
== END 2024-11-09 16:28 | disposition home or self-care (01) ==
LOC: HO.HKA 15:38
PROVIDERS: PCP Family Medicine; Visit Provider Internal Medicine Nephrology
DX: R60.9 Edema, unspecified (principal); E87.5 Hyperkalemia; N17.9 Acute kidney failure, unspecified; N25.81 Secondary hyperparathyroidism of renal origin; I12.9 Hypertensive chronic kidney disease with stage 1 through stage 4 chronic kidney disease, or unspecified chronic kidney disease; E11.21 Type 2 diabetes mellitus with diabetic nephropathy; N18.4 Chronic kidney disease, stage 4 (severe)
CPT/HCPCS: 99214

== ENCOUNTER → 2024-11-09 15:38 | Outpatient (BNVA) | payer MEDICARE, SELFPAY | PROVIDERS: PCP Family Medicine; Visit Provider Internal Medicine Nephrology | DX: E11.22 Type 2 diabetes mellitus with diabetic chronic kidney disease (principal); I12.9 Hypertensive chronic kidney disease with stage 1 through stage 4 chronic kidney disease, or unspecified chronic kidney disease; N18.4 Chronic kidney disease, stage 4 (severe); E11.21 Type 2 diabetes mellitus with diabetic nephropathy; R60.9 Edema, unspecified; E87.5 Hyperkalemia; N17.9 Acute kidney failure, unspecified; N25.81 Secondary hyperparathyroidism of renal origin | CPT/HCPCS: 99212 ==

== ENCOUNTER 2024-11-12 11:38 | Outpatient (REF) | payer MEDICARE, SELFPAY ==
[2024-11-12 13:45] LABS: MANUAL DIFF FLAG NO
[2024-11-12 13:49] LABS: Basophils Percent Auto 0.4 % (0-2); Eosinophils Absolute Auto 0.5 X10*3/uL (0.0-0.4); Eosinophils Percent Auto 9.8 % (0-4); Hematocrit 33.1 % (42.0-52.0); Hemoglobin 10.3 g/dl (14.0-18.0); Imm Gran Abs Auto 0.02 X10*3/uL (0.00-0.03); Imm Gran Pct Auto 0.4 % (0.0-0.4); Lymphocytes Absolute Auto 1.5 X10*3/uL (1.2-4.9); Lymphocytes Percent Auto 29.3 % (20-40); Mean Corpuscular HGB Conc 31.1 g/dl (31.0-36.0); Mean Corpuscular Hemoglobin 29.4 pg (27.0-33.0); Mean Corpuscular Volume 94.6 fL (80.0-98.0); Mean Platelet Volume 11.1 fL (9.4-12.4); Monocytes Absolute Auto 0.6 X10*3/uL (0.1-1.2); Monocytes Percent Auto 10.7 % (2-11); Neutrophils Absolute Auto 2.6 x10*3/uL (2.0-8.3); Neutrophils Percent Auto 49.4 % (45-73); Platelet Count 195 X10*3/uL (160-400); Red Cell Distribution Width 15.3 % (11.0-16.0); White Blood Count 5.2 X10*3/uL (4.8-10.8)
[2024-11-12 13:50] LABS: Appearance Urine Clear; Color Urine Yellow; Glucose Urine UA 250 mg/dL (Negative); Leukocyte Esterase Urine Negative (Negative); Nitrite Urine Negative (Negative); PH 6.5 (5.0-9.0); Specific Gravity - Urine 1.015 (1.005-1.025); UMIC TRIGGER UACC YES; Urine Blood Trace (Negative); Urine Ketones Negative (Negative); Urine Protein 300 (3+) mg/dL (Neg-Trace)
[2024-11-12 13:55] LABS: Bacteria Urine None Seen (None Seen); Hyaline Casts Urine 0-2 /LPF (0-2); RBC Urine 0-2 /HPF (0-2); Squamous Epithelial Cell Urine 0-2 /HPF (0-2); WBC Urine 0-5 /HPF (0-5)
[2024-11-12 14:25] LABS: Alanine Aminotransferase 61 U/L (0-40); Albumin Level 3.5 g/dL (3.5-5.0); Anion Gap 13 (12-20); Aspartate Amino Transferase 55 U/L (5-37); Bilirubin Total 0.3 mg/dL (0.0-1.0); Blood Urea Nitrogen 38 mg/dL (9-16); Calcium 8.8 mg/dL (8.4-10.2); Carbon Dioxide 24 mmol/L (22-29); Chloride 110 mmol/L (96-108); Estimated Glomerular Filt Rate 14; Glucose Random 144 mg/dL (60-115); Potassium 4.9 mmol/L (3.3-5.1); Sodium 142 mmol/L (135-145); Total Protein 7.2 g/dL (6.5-8.0)
[2024-11-12 17:04] LABS: Alkaline Phosphatase 435 U/L (39-117)
[2024-11-12 17:30] LABS: Procalcitonin 0.17 ng/mL
== END 2024-11-12 11:39 | disposition home or self-care (01) ==
LOC: HO.HMGCLDS 11:38
PROVIDERS: PCP Family Medicine; Visit Provider Physician Assistant Medical
DX: R50.9 Fever, unspecified (principal); I50.9 Heart failure, unspecified; R30.0 Dysuria
CPT/HCPCS: 36415; 80053; 81001; 84145; 85025; 87040

== ENCOUNTER 2024-11-17 11:33 | Outpatient (REF) | payer MEDICARE, SELFPAY ==
[2024-11-17 13:15] LABS: Appearance Urine Clear; Color Urine Yellow; Glucose Urine UA 250 mg/dL (Negative); Leukocyte Esterase Urine Negative (Negative); Nitrite Urine Negative (Negative); Specific Gravity - Urine 1.015 (1.005-1.025); UMIC TRIGGER UACC YES; Urine Blood Trace (Negative); Urine Ketones Negative (Negative); Urine Protein >=1000 (4+) mg/dL (Neg-Trace)
[2024-11-17 13:23] LABS: Bacteria Urine None Seen (None Seen); Hyaline Casts Urine 0-2 /LPF (0-2); RBC Urine 0-2 /HPF (0-2); Squamous Epithelial Cell Urine 0-2 /HPF (0-2); WBC Urine 0-5 /HPF (0-5)
[2024-11-17 13:43] LABS: Albumin Level 3.3 g/dL (3.5-5.0); Alkaline Phosphatase 326 U/L (39-117); Anion Gap 10 (12-20); Aspartate Amino Transferase 28 U/L (5-37); Bilirubin Total 0.4 mg/dL (0.0-1.0); Blood Urea Nitrogen 47 mg/dL (9-16); Calcium 8.5 mg/dL (8.4-10.2); Carbon Dioxide 25 mmol/L (22-29); Chloride 108 mmol/L (96-108); Estimated Glomerular Filt Rate 13; Glucose Random 257 mg/dL (60-115); Potassium 5.4 mmol/L (3.3-5.1); Sodium 138 mmol/L (135-145); Total Protein 6.8 g/dL (6.5-8.0)
--- OUTSIDE RECORDS SUMMARY | 2024-11-17 13:55 | XMS_ITS | Clinical Summary ---
Author Organization [facility] Address [address] [facility] [address] [place] [address] Phone Care Team Providers Care Wreath Machine Tender Name Role Phone Joanna Angeles MD Primary Care Provider [phone] Allergies Active Allergy Reactions Criticality Noted Date [...] A1c (%). Testing performed or reported by ~[facility], ~a Service of [facility], ~[address] [place] [id number]~ 03/21/2019 2:49 PM EDT us Chris Martínez MD LAB BLOOD ORDERABLES Final Resul t [facility] 3 from Last 3 Months or Most Recently Relevant to Health Maintenance Insurance [facility] Medicare [facility] Medicare Care Teams Wreath Machine Tender Relationship Specialty Start Date End Date Joanna Angeles MD [address] [phone] PCP - General Family Medicine 02/17/23
--- OUTSIDE RECORDS SUMMARY | 2024-11-17 13:55 | XMS_ITS | Clinical Summary ---
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
--- OUTSIDE RECORDS SUMMARY | 2024-11-17 13:56 | XMS_ITS | Data Portability ---
Author Organization [facility], Main Office Address [address] [place] [address] 2 [address] [place] [address] Care Team Providers Care Printing Grey Cloth Tender Name Role Phone [facility] Re[facility] JESUS RUBIO Phys. Med. & Rehab [phone] JONNA BATRES Desk Officer [facility] Sales Operations Lead [phone] RAHUL DIAL Diaphragm Builder CARLOS MARTÍNEZ Exceptional Children Teacher Assistant SANDEE ARRIAGA Financial Reporting Manager PEE JOHNSON Occupational Health And Safety Officer VIVI DE Primary Care Provider ARA HOGUE Urologist [phone] Assessment Encounter Date Assessment Date Assessment LastModified by Organization Details LastModified Time 11/14/2024 11/14/2024 Regarding the patient's back pain, I suspect the possibility of nephrolithiasis given the intermittent nature of the pain and its radiation to the groin. I am ordering a non-contrast CT of the abdomen and pelvis, along with a urinalysis and renal function tests to further evaluate. In the meantime, I recommended using acetaminophen (Tylenol) for pain management, as NSAIDs should be avoided due to his chronic kidney disease (Stage IV). 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 His recent fever and upper respiratory symptoms have resolved, and he is currently feeling well otherwise with no chills. Per his request, STI testing has been ordered. Although he denies any known direct exposure, he expressed a desire to check his status out of caution. I plan to follow up with him in two weeks regarding his back pain. On examination today, there was no paraspinal or bony tenderness, and no costovertebral angle (CVA) tenderness noted. Given the pattern of pain radiating to the groin, a kidney stone remains a likely consideration. beryl Not available 11/14/2024 10:39:05 Plan of Treatment Reminders Order Date Submit Date Provider Last Modified By Organization Details Last Modified Time Details Appointments URGENT 2024 02:00P Alicja De MD Not available Not available Not available Lab BMP, serum or plasma 2024 025 [facility], [address] [place] [address], [id number], 11/14/2024 09:34:50 urinal ysis comple te, reflex cultur e 2024 025 [facility], [address] [place] [address], [address], 11/14/2024 09:34:50 Hepati tis C IgG Ab, qual, serum 2024 025 [facility], [address] [place] [address], [id number], 11/14/2024 09:34:50 HBsAg (hepat itis B surfac e Ag), EIA, serum 2024 025 [facility], [address] [place] [address], [address], 11/14/2024 09:34:50 HIV 1 + 2, meanin gful use set 2024 025 [facility], [address] [place] [address], [address], 11/14/2024 09:34:50 trepon omer pallid um IgG + IgM Ab, QL, IA, serum 2024 025 [facility], [address] [place] [address], [address], 11/14/2024 09:34:50 CT + NG RNA, PCR, unspec ified specim en 2024 025 [facility], [address] [place] [address], [address], 11/14/2024 09:34:50 hepati tis B core IgM Ab, qual, serum or plasma 2024 025 [facility], [address] [place] [address], [place], [address], 11/14/2024 09:34:50 urinal ysis comple te, reflex cultur e 2024 025 [facility], [address] [place] [address], [address], 11/02/2024 10:51:56 CBC w/ auto diff [address] [facility], [address] [place] [address], [address], 11/02/2024 10:51:56 CMP, serum or plasma [address] [facility], [address] [place] [address], [address], 11/14/2024 11:41:53 procal citoni n, serum [address] [facility], [address] [place] [address], [address], 11/02/2024 10:51:56 cultur e, blood [address] [facility], [address] [place] [address], [address], 11/15/2024 12:08:31 pro BNP (pro B-type natriu retic peptid e), serum or plasma [address] [facility], [address] [facility], [place], [address], 11/02/2024 10:51:56 uric acid, serum or plasma 2024 025 [facility], [address], [address], [place], [address], 09/11/2024 16:05:42 alkali ne phosph atase, serum [...] or plasma 2024 025 [facility], [address], [address], [place], [address], 09/11/2024 16:05:35 TSH, ultra- sensit erik, serum 2024 025 [facility] (Centralized Electronic Ordering - All Locations), Patient Can Go To The Location Of Their Choice, 09/11/2024 16:05:41 magnes ium, serum or plasma 2024 025 [facility], [address], [address], [place], [address], 09/11/2024 16:05:44 potass ium, serum or plasma 2024 025 [facility] (Centralized Electronic Ordering - All Locations), Patient Can Go To The Location Of Their Choice, 09/11/2024 16:05:43 lipid panel, serum 2024 025 [email or web address] s [facility], [address], [address], [place], [address], 09/02/2024 15:30:39 albumi n/crea tinine , mass ratio, urine 2024 025 [place] [facility]), Patient Can Go To The Location Of Their Choice, 09/11/2024 16:05:37 ferrit in, serum or plasma 2024 025 [facility], [address], [address], [place], [address], 09/11/2024 16:05:44 retic count, blood 2024 025 [facility], [address], [address], [place], [address], 09/11/2024 16:05:45 CBC w/ auto diff 2024 025 [facility], [address], [address], [place], [address], 09/11/2024 16:05:34 iron + total iron-b inding capaci ty (TIBC) , serum 2024 025 [facility], [address], [address], [place], [address], 09/11/2024 16:05:36 transf johnathan recept or, solubl e, quant, serum 2024 025 [facility]), Patient Can Go To The Location Of Their Choice, 09/11/2024 16:05:40 cobala min and folate panel, serum 2024 025 [facility]), Patient Can Go To The Location Of Their Choice, 09/11/2024 16:05:38 vitami n D, 25-hyd apolinar, total, serum 2024 025 [facility] (Centralized Electronic Ordering - All Locations), Patient Can Go To The Location Of Their Choice, 09/11/2024 16:05:39 1,25-d ihydro xyvita min D, QN, serum or plasma 2024 025 [facility] (Centralized Electronic Ordering - All Locations), Patient Can Go To The Location Of Their Choice, 09/11/2024 16:05:39 CMP, serum or plasma 2024 025 [...] care referr al 2023 024 odalis gibbs [facility], [address] [place] [address] [place], [address], 06/11/2024 11:10:30 Procedures None record ed. Surgeries None record ed. Imaging CT, abdome n + pelvis , w/o contra st 2024 025 gladys [facility] ([facility]), [address] [place], [address], 11/17/2024 09:52:25 XR, chest, 2 view 2024 025 jose [facility] ([facility]), [address] [place], [address], 11/16/2024 11:26:23 Medication Orders cefpod oxime 200 mg tablet 2024 025 [id number], [address] [place], [address], 11/14/2024 08:32:43 Zithro max Z-Jase 250 mg tablet 2024 025 [id number], [address] [place], [address], 11/02/2024 10:50:49 amlodi pine 10 mg tablet 2024 025 [id number], [phone] [place] [address], [address], 08/22/2024 17:21:09 furose mide 20 mg tablet 2024 025 [id number], [phone] [place] [address], [address], 08/22/2024 15:27:40 Patient TargetsNo targets recorded. Patient Instructions Encounter Date Encounter Id Patient Instructions Last Modified By Organization Details Last Modified Time 08/03/2024 [id number] leg and ankle edema: care instructions [email or web address] Not available 08/03/2024 15:12:18 08/22/2024 [id number] gout: care instructions [email or web address] Not available 08/22/2024 [...] instructions [email or web address] Not available 08/22/2024 17:17:19 11/02/2024 [id number] At [facility] follow up visit, all current and discharge medications (OTC, herbal therapies, supplements) reviewed and reconciled with patient and or caregiver, including potential side effects, drug interactions, instructions, and the consequences of not taking medication. Reviewed potential barriers to medication adherence, such as side effects from medication or cost of medication. [email or web address] Not available 11/02/2024 10:50:48 11/14/2024 [id number] learning about fever beryl Not available 11/14/2024 10:32:51 At [facility] follow up visit, all current and discharge medications (OTC, herbal therapies, supplements) reviewed and reconciled with patient and or caregiver, including potential side effects, drug interactions, instructions, and the consequences of not taking medication. Reviewed potential barriers to medication adherence, such as side effects from medication or cost of medication. [email or web address] Not available 11/14/2024 08:34:10 Reason for Referral Referring Physician: Becki De, Family Medicine, Encounter Date: 05/27/2024 Results Created Date Observation Date Name Description Value Unit Range Abnormal Flag Note LastModifiedBy Organization Detail LastModifiedTime 08/03/1908/04/2024 COMP. METAB OLIC PANEL (14) glucose 180 mg/dL 70-99 above high normal Not Available [facility] ([facility]) [address] [place], [address], 08/04/2024 08:08:28 08/03/1908/04/2024 COMP. METAB OLIC PANEL (14) BUN 40 mg/dL 8-27 above high normal Not Available [facility] ([facility]) [address] [place], [address], 08/04/2024 08:08:28 08/03/1908/04/2024 COMP. METAB OLIC PANEL (14) creatinine 3.46 mg/dL 0.76-1 .27 above high normal Not Available [facility] ([facility]) [address] [place], [address], 08/04/2024 08:08:28 08/03/19 25 08/04/2024 COMP. METAB OLIC PANEL (14) eGFR 18 mL/mi n/1.7 3 >59 below low normal Not Available [facility] ([facility]) [address] [facility], [place], [address], 08/04/2024 08:08:28 08/03/19 25 08/04/2024 COMP. METAB OLIC PANEL (14) BUN/creatini ne ratio 12 10-24 normal Not Available [facility] ([facility]) [address] [facility], [place], [address], 08/04/2024 08:08:28 08/03/19 25 08/04/2024 COMP. METAB OLIC PANEL (14) sodium 145 mmol/ L 134-14 4 above high normal Not Available [facility] ([facility]) [address] [facility] [place], [address], 08/04/2024 08:08:28 08/03/19 25 08/04/2024 COMP. METAB OLIC PANEL (14) potassium 5.4 mmol/ L 3.5-5. 2 above high normal Not Available [facility] ([facility]) [address] [facility] [place], [address], 08/04/2024 08:08:28 08/03/19 25 08/04/2024 COMP. METAB OLIC PANEL (14) chloride 111 mmol/ L 96-106 above high normal Not Available [facility] ([facility]) [address] [facility] [place], [address], 08/04/2024 08:08:28 08/03/19 25 08/04/2024 COMP. METAB OLIC PANEL (14) carbon dioxide, total 19 mmol/ L 20-29 below low normal Not Available [facility] ([facility]) [address] [facility] [place], [address], 08/04/2024 08:08:28 08/03/19 25 08/04/2024 COMP. METAB OLIC PANEL (14) calcium 8.1 mg/dL 8.6-10 .2 below low normal Not Available [facility] ([facility]) [address] [place], [address], 08/04/2024 08:08:28 08/03/19 25 08/04/2024 COMP. METAB OLIC PANEL (14) protein, total 6.3 g/dL 6.0-8. 5 normal Not Available [facility] ([facility]) [address] [place], [address], 08/04/2024 08:08:28 08/03/1908/04/2024 COMP. METAB OLIC PANEL (14) albumin 3.3 g/dL 3.8-4. 8 below low normal Not Available [facility] ([facility]) [address] [place], [address], 08/04/2024 08:08:28 08/03/1908/04/2024 COMP. METAB OLIC PANEL (14) globulin, total 3.0 g/dL 1.5-4. 5 Not Available [facility] ([facility]) [address] [place], [address], 08/04/2024 08:08:28 08/03/1908/04/2024 COMP. METAB OLIC PANEL (14) bilirubin, total <0.2 mg/dL 0.0-1. 2 Not Available [facility] ([facility]) [address] [place], [address], 08/04/2024 08:08:28 08/03/1908/04/2024 COMP. METAB OLIC PANEL (14) alkaline phosphatase 182 IU/L 44-121 above high normal Not Available [facility] ([facility]) [address] [place], [address], 08/04/2024 08:08:28 08/03/1908/04/2024 COMP. METAB OLIC PANEL (14) AST (SGOT) 20 IU/L 0-40 normal Not Available [facility] ([facility]) [address] [place], [address], 08/04/2024 08:08:28 08/03/19 25 08/04/2024 COMP. METAB OLIC PANEL (14) ALT (SGPT) 16 IU/L 0-44 normal Not Available [facility] ([facility]) [address] [facility], [place], [address], 08/04/2024 08:08:28 08/03/19 25 08/04/2024 UA/M W/RFL X CULTU RE, ROUTI NE specific gravity 1.018 1.005- 1.030 normal Not Available [facility] ([facility]) [address] [place], [address], 08/04/2024 08:08:29 08/03/19 25 08/04/2024 UA/M W/RFL X CULTU RE ROUTI NE pH 6.5 5.0-7. 5 normal Not Available [facility] ([facility]) [address] [place], [address], 08/04/2024 08:08:29 08/03/19 25 08/04/2024 UA/M W/RFL X CULTU REBARBARA NE urine-color Yellow yellow Not Available [facility] ([facility]) [address] [place], [address], 08/04/2024 08:08:29 08/03/19 25 08/04/2024 UA/M W/RFL X CULTU REBARBARA NE appearance Clear clear Not Available [facility] ([facility]) [address] [place], [address], 08/04/2024 08:08:29 08/03/19 25 08/04/2024 UA/M W/RFL X CULTU RE, ROUTI NE WBC esterase Negati ve negati ve Not Available [facility] ([facility]) [address] [place], [address], 08/04/2024 08:08:29 08/03/19 25 08/04/2024 UA/M W/RFL X CULTU RE, ROUTI NE protein 4+ negati ve/tra ce abnormal Not Available [facility] ([facility]) [address] [place], [address], 08/04/2024 08:08:29 08/03/19 25 08/04/2024 UA/M W/RFL X CULTReji RE ROUTI NE glucose 2+ negati ve abnormal Not Available [facility] ([facility]) [address] [place], [address], 08/04/2024 08:08:29 08/03/19 25 08/04/2024 UA/M W/RFL X CULTU RE, ROUTI NE ketones Negati ve negati ve Not Available [facility] ([facility]) [address] [place], [address], 08/04/2024 08:08:29 08/03/19 25 08/04/2024 UA/M W/RFL X CULTU RE ROUTI NE occult blood Trace negati ve abnormal Not Available [facility] ([facility]) [address] [place], [address], 08/04/2024 08:08:29 08/03/19 25 08/04/2024 UA/M W/RFL X CULTReji RE ROUTI NE bilirubin Negati ve negati ve Not Available [facility] ([facility]) [address] [place], [address], 08/04/2024 08:08:29 08/03/19 25 08/04/2024 UA/M W/RFL X CULTU RE, ROUTI NE urobilinogen ,semi-qn 0.2 mg/dL 0.2-1. 0 normal Not Available [facility] ([facility]) [address] [facility], [place], [address], 08/04/2024 08:08:29 08/03/19 25 08/04/2024 UA/M W/RFL X CULTU RE, ROUTI NE nitrite, urine Negati ve negati ve Not Available [facility] ([facility]) [address] [facility], [place], [address], 08/04/2024 08:08:29 08/03/19 25 08/04/2024 UA/M W/RFL X CULTU RE, ROUTI NE microscopic examination See below: Micro scopi c was indic ated and was perfo rmed. Not Available [facility] ([facility]) [address] [facility], [place], [address], 08/04/2024 08:08:29 08/03/19 25 08/04/2024 UA/M W/RFL X CULTU RE, ROUTI NE WBC 0-5 /hpf 0 - 5 Not Available [facility] ([facility]) [address] [facility], [place], [address], 08/04/2024 08:08:29 08/03/19 25 08/04/2024 UA/M W/RFL X CULTU RE, ROUTI NE RBC None seen /hpf 0 - 2 Not Available [facility] ([facility]) [address] [facility], [place], [address], 08/04/2024 08:08:29 08/03/19 25 08/04/2024 UA/M W/RFL X CULTU RE, ROUTI NE epithelial cells (non renal) None seen /hpf 0 - 10 Not Available [facility] ([facility]) [address] [facility], [place], [address], 08/04/2024 08:08:29 08/03/19 25 08/04/2024 UA/M W/RFL X CULTU RE, ROUTI NE epithelial cells (renal) ADMINISTRATIVE SERVICES SPECIALIST Not Available [facility] ([facility]) [address] [facility], [place], [address], 08/04/2024 08:08:29 08/03/19 25 08/04/2024 UA/M W/RFL X CULTU REBARBARA NE casts None seen /lpf none seen Not Available [facility] ([facility]) [address] [facility], [place], [address], 08/04/2024 08:08:29 08/03/19 25 08/04/2024 UA/M W/RFL X CULTU REBARBARA NE cast type ADMINISTRATIVE SERVICES SPECIALIST Not Available [facility] ([facility]) [address] [facility], [place], [address], 08/04/2024 08:08:29 08/03/19 25 08/04/2024 UA/M W/RFL X CULTU RE ROUTI NE crystals ADMINISTRATIVE SERVICES SPECIALIST Not Available [facility] ([facility]) [address] [facility], [place], [address], 08/04/2024 08:08:29 08/03/19 25 08/04/2024 UA/M W/RFL X CULTU REBARBARA NE crystal type ADMINISTRATIVE SERVICES SPECIALIST Not Available [facility]) [address] [facility], [place], [address], 08/04/2024 08:08:29 08/03/19 25 08/04/2024 UA/M W/RFL X CULTU RE ROUTBart NE mucus threads ADMINISTRATIVE SERVICES SPECIALIST Not Available [facility] ([facility]) [address] [facility], [place], [address], 08/04/2024 08:08:29 08/03/19 25 08/04/2024 UA/M W/RFL X CULTU REBARBARA NE bacteria None seen none seen/f ew Not Available [facility] ([facility]) [address] [facility], [place], [address], 08/04/2024 08:08:29 08/03/19 25 08/04/2024 UA/M W/RFL X CULTU RE, ROUTI NE yeast ADMINISTRATIVE SERVICES SPECIALIST Not Available [facility] ([facility]) [address] [facility], [place], [address], 08/04/2024 08:08:29 08/03/19 25 08/04/2024 UA/M W/RFL X CULTU RE, ROUTI NE trichomonas ADMINISTRATIVE SERVICES SPECIALIST Not Available [facility]) [address] [facility], [place], [address], 08/04/2024 08:08:29 08/03/19 25 08/04/2024 UA/M W/RFL X CULTU RE, ROUTI NE comment ADMINISTRATIVE SERVICES SPECIALIST Not Available [facility] ([facility]) [address] [facility], [place], [address], 08/04/2024 08:08:29 08/03/19 25 08/04/2024 UA/M W/RFL X CULTU RE, ROUTI NE microscopic examination ADMINISTRATIVE SERVICES SPECIALIST Not Available [facility]) [address] [facility], [place], [address], 08/04/2024 08:08:29 08/03/19 25 08/04/2024 UA/M W/RFL X CULTU RE, ROUTI NE urinalysis reflex Commen t This speci men will not refle x to a Urine Cultu re. Not Available [facility] ([facility]) [address] [facility], [place], [address], 08/04/2024 08:08:29 08/03/19 25 08/04/2024 B-TYP E NATRI URETI C PEPTI DE B-type natriuretic peptide 145.8 pg/mL 0.0-10 0.0 above high normal Sieme ns [facility] XP metho dolog y Not Available [facility] ([facility]) [address] [facility], [place], [address], 08/04/2024 08:08:30 09/08/19 25 09/08/2024 CBC WITH DIFFE RENTI AL/PL ATELE T WBC 7.8 x10e3 /uL 3.4-10 .8 normal Not Available [facility] ([facility]) [address] [place], [address], 09/11/2024 16:05:34 09/08/19 25 09/08/2024 CBC WITH DIFFE RENTI AL/PL ATELE T RBC 3.50 x10e6 /uL 4.14-5 .80 below low normal Not Available [facility] ([facility]) [address] [place], [address], 09/11/2024 16:05:34 09/08/19 25 09/08/2024 CBC WITH DIFFE RENTI AL/PL ATELE T hemoglobin 11.1 g/dL 13.0-1 7.7 below low normal Not Available [facility] ([facility]) [address] [place], [address], 09/11/2024 16:05:34 09/08/19 25 09/08/2024 CBC WITH DIFFE RENTI AL/PL ATELE T hematocrit 33.3 % 37.5-5 1.0 below low normal Not Available [facility] ([facility]) [address] [place], [address], 09/11/2024 16:05:34 09/08/19 25 09/08/2024 CBC WITH DIFFE RENTI AL/PL ATELE T MCV 95 fL 79-97 normal Not Available [facility] ([facility]) [address] [place], [address], 09/11/2024 16:05:34 09/08/19 25 09/08/2024 CBC WITH DIFFE RENTI AL/PL ATELE T MCH 31.7 pg 26.6-3 3.0 normal Not Available [facility] ([facility]) [address] [place], [address], 09/11/2024 16:05:34 09/08/19 25 09/08/2024 CBC WITH DIFFE RENTI AL/PL ATELE T MCHC 33.3 g/dL 31.5-3 5.7 normal Not Available [facility] ([facility]) [address] [facility], [place], [address], 09/11/2024 16:05:34 09/08/19 25 09/08/2024 CBC WITH DIFFE RENTI AL/PL ATELE T RDW 14.0 % 11.6-1 5.4 Not Available [facility] ([facility]) [address] [place], [address], 09/11/2024 16:05:34 09/08/19 25 09/08/2024 CBC WITH DIFFE RENTI AL/PL ATELE T platelets 233 x10e3 /uL 150-45 0 normal Not Available [facility] ([facility]) [address] [facility], [place], [address], 09/11/2024 16:05:34 09/08/19 25 09/08/2024 CBC WITH DIFFE RENTI AL/PL ATELE T neutrophils 68 % not estab. normal Not Available [facility] ([facility]) [address] [place], [address], 09/11/2024 16:05:34 09/08/19 25 09/08/2024 CBC WITH DIFFE RENTI AL/PL ATELE T lymphs 18 % not estab. normal Not Available [facility] ([facility]) [address] [place], [address], 09/11/2024 16:05:34 09/08/19 25 09/08/2024 CBC WITH DIFFE RENTI AL/PL ATELE T monocytes 9 % not estab. normal Not Available [facility] ([facility]) [address] [place], [address], 09/11/2024 16:05:34 09/08/19 25 09/08/2024 CBC WITH DIFFE RENTI AL/PL ATELE T eos 4 % not estab. normal Not Available [facility] ([facility]) [address] [place], [address], 09/11/2024 16:05:34 09/08/19 25 09/08/2024 CBC WITH DIFFE RENTI AL/PL ATELE T basos 0 % not estab. normal Not Available [facility] ([facility]) [address] [place], [address], 09/11/2024 16:05:34 09/08/19 25 09/08/2024 CBC WITH DIFFE RENTI AL/PL ATELE T immature cells ADMINISTRATIVE SERVICES SPECIALIST Not Available [facility] ([facility]) [address] [place], [address], 09/11/2024 16:05:34 09/08/19 25 09/08/2024 CBC WITH DIFFE RENTI AL/PL ATELE T neutrophils (absolute) 5.3 x10e3 /uL 1.4-7. 0 normal Not Available [facility] ([facility]) [address] [place], [address], 09/11/2024 16:05:34 09/08/19 25 09/08/2024 CBC WITH DIFFE RENTI AL/PL ATELE T lymphs (absolute) 1.4 x10e3 /uL 0.7-3. 1 normal Not Available [facility] ([facility]) [address] [place], [address], 09/11/2024 16:05:34 09/08/19 25 09/08/2024 CBC WITH DIFFE RENTI AL/PL ATELE T monocytes(ab solute) 0.7 x10e3 /uL 0.1-0. 9 normal Not Available [facility] ([facility]) [address] [place], [address], 09/11/2024 16:05:34 09/08/19 25 09/08/2024 CBC WITH DIFFE RENTI AL/PL ATELE T eos (absolute) 0.3 x10e3 /uL 0.0-0. 4 normal Not Available [facility] ([facility]) [address] [facility], [place], [address], 09/11/2024 16:05:34 09/08/19 25 09/08/2024 CBC WITH DIFFE RENTI AL/PL ATELE T baso (absolute) 0.0 x10e3 /uL 0.0-0. 2 normal Not Available [facility] ([facility]) [address] [facility], [place], [address], 09/11/2024 16:05:34 09/08/19 25 09/08/2024 CBC WITH DIFFE RENTI AL/PL ATELE T immature granulocytes 1 % not estab. Not Available [facility] ([facility]) [address] [facility], [place], [address], 09/11/2024 16:05:34 09/08/19 25 09/08/2024 CBC WITH DIFFE RENTI AL/PL ATELE T immature grans (abs) 0.1 x10e3 /uL 0.0-0. 1 Not Available [facility] ([facility]) [address] [facility], [place], [address], 09/11/2024 16:05:34 09/08/19 25 09/08/2024 CBC WITH DIFFE RENTI AL/PL ATELE T NRBC ADMINISTRATIVE SERVICES SPECIALIST Not Available [facility] ([facility]) [address] [facility], [place], [address], 09/11/2024 16:05:34 09/08/19 25 09/08/2024 CBC WITH DIFFE RENTI AL/PL ATELE T hematology comments: ADMINISTRATIVE SERVICES SPECIALIST Not Available [facility] ([facility]) [address] [facility], [place], [address], 09/11/2024 16:05:34 09/08/19 25 09/08/2024 COMP. METAB OLIC PANEL (14) glucose 197 mg/dL 70-99 above high normal Not Available [facility] ([facility]) [address] [place], [address], 09/11/2024 16:05:35 09/08/19 25 09/08/2024 COMP. METAB OLIC PANEL (14) BUN 50 mg/dL 8-27 above high normal Not Available [facility] ([facility]) [address] [place], [address], 09/11/2024 16:05:35 09/08/19 25 09/08/2024 COMP. METAB OLIC PANEL (14) creatinine 3.72 mg/dL 0.76-1 .27 above high normal Not Available [facility] ([facility]) [address] [place], [address], 09/11/2024 16:05:35 09/08/19 25 09/08/2024 COMP. METAB OLIC PANEL (14) eGFR 17 mL/mi n/1.7 3 >59 below low normal Not Available [facility] ([facility]) [address] [place], [address], 09/11/2024 16:05:35 09/08/19 25 09/08/2024 COMP. METAB OLIC PANEL (14) BUN/creatini ne ratio 13 10-24 normal Not Available [facility] ([facility]) [address] [place], [address], 09/11/2024 16:05:35 09/08/19 25 09/08/2024 COMP. METAB OLIC PANEL (14) sodium 140 mmol/ L 134-14 4 normal Not Available [facility] ([facility]) [address] [place], [address], 09/11/2024 16:05:35 09/08/19 25 09/08/2024 COMP. METAB OLIC PANEL (14) potassium 5.6 mmol/ L 3.5-5. 2 above high normal Not Available [facility] ([facility]) [address] [place] [place], [address], 09/11/2024 16:05:35 09/08/19 25 09/08/2024 COMP. METAB OLIC PANEL (14) chloride 109 mmol/ L 96-106 above high normal Not Available [facility] ([facility]) [address] [place], [address], 09/11/2024 16:05:35 09/08/19 25 09/08/2024 COMP. METAB OLIC PANEL (14) carbon dioxide, total 16 mmol/ L 20-29 below low normal Not Available [facility] ([facility]) [address] [place] [place], [address], 09/11/2024 16:05:35 09/08/19 25 09/08/2024 COMP. METAB OLIC PANEL (14) calcium 8.6 mg/dL 8.6-10 .2 normal Not Available [facility] ([facility]) [address] [place], [address], 09/11/2024 16:05:35 09/08/19 25 09/08/2024 COMP. METAB OLIC PANEL (14) protein, total 6.9 g/dL 6.0-8. 5 normal Not Available [facility] ([facility]) [address] [place], [address], 09/11/2024 16:05:35 09/08/19 25 09/08/2024 COMP. METAB OLIC PANEL (14) albumin 3.8 g/dL 3.8-4. 8 normal Not Available [facility] ([facility]) [address] [place], [address], 09/11/2024 16:05:35 09/08/19 25 09/08/2024 COMP. METAB OLIC PANEL (14) globulin, total 3.1 g/dL 1.5-4. 5 Not Available [facility] ([facility]) [address] [place] [place], [address], 09/11/2024 16:05:35 09/08/19 25 09/08/2024 COMP. METAB OLIC PANEL (14) bilirubin, total 0.3 mg/dL 0.0-1. 2 normal Not Available [facility] ([facility]) [address] [place] [place], [address], 09/11/2024 16:05:35 09/08/19 25 09/08/2024 COMP. METAB OLIC PANEL (14) alkaline phosphatase 225 IU/L 44-121 above high normal Not Available [facility] ([facility]) [address] [facility], [place], [address], 09/11/2024 16:05:35 09/08/19 25 09/08/2024 COMP. METAB OLIC PANEL (14) AST (SGOT) 17 IU/L 0-40 normal Not Available [facility] ([facility]) [address] [facility], [place], [address], 09/11/2024 16:05:35 09/08/19 25 09/08/2024 COMP. METAB OLIC PANEL (14) ALT (SGPT) 18 IU/L 0-44 normal Not Available [facility] ([facility]) [address] [facility], [place], [address], 09/11/2024 16:05:35 09/08/19 25 09/09/2024 COMP. METAB OLIC PANEL (14) hemoglobin A1C 7.5 % 4.8-5. 6 above high normal Predi abete s: 5.7 - 6.4 Diabe rocky: >6.4 Glyce mary contr ol for adult s with diabe rocky: <7.0 Not Available [facility] ([facility]) [address] [facility], [place], [address], 09/11/2024 16:05:35 09/08/19 25 09/08/2024 LIPID PANEL cholesterol, total 187 mg/dL 100-19 9 normal Not Available [facility] ([facility]) [address] [place], [address], 09/11/2024 16:05:35 09/08/19 25 09/08/2024 LIPID PANEL triglyceride s 121 mg/dL 0-149 normal Not Available [facility] ([facility]) [address] [place], [address], 09/11/2024 16:05:35 09/08/19 25 09/08/2024 LIPID PANEL HDL cholesterol 37 mg/dL >39 below low normal Not Available [facility] ([facility]) [address] [place], [address], 09/11/2024 16:05:35 09/08/19 25 09/08/2024 LIPID PANEL VLDL cholesterol leisa 22 mg/dL 5-40 Not Available [facility] ([facility]) [address] [place], [address], 09/11/2024 16:05:35 09/08/19 25 09/08/2024 LIPID PANEL LDL chol calc ([facility]) 128 mg/dL 0-99 above high normal Not Available [facility] ([facility]) [address] [place], [address], 09/11/2024 16:05:35 09/08/19 25 09/08/2024 LIPID PANEL LDL calc comment: ADMINISTRATIVE SERVICES SPECIALIST Not Available [facility] ([facility]) [address] [place], [address], 09/11/2024 16:05:35 09/08/19 25 09/09/2024 IRON AND TIBC iron bind.cap.(TI BC) 296 ug/dL 250-45 0 normal Not Available [facility] ([facility]) [address] [place], [address], 09/11/2024 16:05:36 09/08/19 25 09/09/2024 IRON AND TIBC UIBC 196 ug/dL 111-34 3 normal Not Available [facility] ([facility]) [address] [place], [address], 09/11/2024 16:05:36 09/08/19 25 09/09/2024 IRON AND TIBC iron 100 ug/dL 38-169 normal Not Available [facility] ([facility]) [address] [place], [address], 09/11/2024 16:05:36 09/08/19 25 09/09/2024 IRON AND TIBC iron saturation 34 % 15-55 normal Not Available [facility] ([facility]) [address] [place], [address], 09/11/2024 16:05:36 09/08/19 25 09/09/2024 ALBUM IN/CR EATIN INE RATIO ,URIN E creatinine, urine 147.8 mg/dL not estab. normal Not Available [facility] ([facility]) [address] [place], [address], 09/11/2024 16:05:37 09/08/19 25 09/09/2024 ALBUM IN/CR EATIN INE RATIO ,URIN E albumin, urine 6042.6 ug/mL not estab. Resul ts confi rmed on dilut ion. Not Available [facility] ([facility]) [address] [place], [address], 09/11/2024 16:05:37 09/08/19 25 09/09/2024 ALBUM IN/CR EATIN INE RATIO ,URIN E alb/creat ratio 4088 mg/g_ creat 0-29 above high normal Madison l: 0 - 29 Moder ately incre ased: 30 - 300 Sever richard incre ased: >300 Not Available [facility] ([facility]) [address] [place], [address], 09/11/2024 16:05:37 09/08/19 25 09/09/2024 VITAM IN B12 AND FOLAT E vitamin B12 821 pg/mL 232-12 45 normal Not Available [facility] ([facility]) [address] [facility], [place], [address], 09/11/2024 16:05:38 09/08/19 25 09/09/2024 VITAM IN B12 AND FOLAT E folate (folic acid), serum 4.2 NG/mL >3.0 normal A serum folat e asuncion ntrat ion of less than 3.1 ng/mL is consi dered to repre sent clini leisa defic iency . Not Available [facility] ([facility]) [address] [facility], [place], [address], 09/11/2024 16:05:38 09/08/19 25 09/10/2024 CALCI TRIOL (1,25 DI-OH VIT D) calcitriol(1 ,25 di-oh vit D) 31.1 pg/mL 24.8-8 1.5 Not Available [facility] ([facility]) [address] [facility], [place], [address], 09/11/2024 16:05:39 09/08/19 25 09/09/2024 VITAM IN [...] Medic ine). 2010. Dieta ry refer ence mikaela es for calci um and D. Millie caputo [place]: The Natio nal [facility] Press . 2. Holic k MF, Chela grey [place], Todd off-F errar i BAILEY, et al. Evalu ation , treat ment, and preve ntion of vitam in D defic iency : an Endoc rine Socie ty clini leisa pract ice guide line. JCEM. 2010; 96(7) :1911 -30. Not Available [facility] (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) [address] [place], [address], 09/11/2024 16:05:40 09/08/19 25 09/08/2024 TSH RFX ON ABNOR MAL TO FREE T4 TSH 2.360 uIU/m L 0.450- 4.500 normal Not Available [facility] ([facility]) [address] [place], [address], 09/11/2024 16:05:41 09/08/19 25 09/09/2024 GGT WITH REFLE X AMYLA SE/LI PASE GGT 104 IU/L 0-65 above high normal Not Available [facility] ([facility]) [address] [place], [address], 09/11/2024 16:05:41 09/08/19 25 09/09/2024 GGT WITH REFLE X AMYLA SE/LI PASE amylase 79 U/L 31-110 normal Not Available [facility] ([facility]) [address] [place], [address], 09/11/2024 16:05:41 09/08/19 25 09/09/2024 GGT WITH REFLE X AMYLA SE/LI PASE lipase 41 U/L 13-78 normal Not Available [facility] ([facility]) [address] [place], [address], 09/11/2024 16:05:41 09/08/19 25 09/09/2024 URIC ACID uric acid 5.0 mg/dL 3.8-8. 4 normal Thera peuti c targe t for gout patie nts: <6.0 Not Available [facility] ([facility]) [address] [place], [address], 09/11/2024 16:05:42 09/08/19 25 09/09/2024 POTAS SIUM, HEPAR IN PLASM A potassium, heparin plasma 5.4 mmol/ L 3.5-5. 2 above high normal Not Available [facility] ([facility]) [address] [place], [address], 09/11/2024 16:05:43 09/08/19 25 09/09/2024 MAGNE SIUM magnesium 1.5 mg/dL 1.6-2. 3 below low normal Not Available [facility] ([facility]) [address] [place], [address], 09/11/2024 16:05:44 09/08/19 25 09/08/2024 SHIRA TIN ferritin 155 NG/mL 30-400 normal Not Available [facility] ([facility]) [address] [place], [address], 09/11/2024 16:05:44 09/08/1909/08/2024 RETIC ULOCY TE COUNT reticulocyte count 1.8 % 0.6-2. 6 Not Available [facility] ([facility]) [address] [place], [address], 09/11/2024 16:05:45 09/08/19 25 09/09/2024 PSA TOTAL (REFL EX TO FREE) reflex criteria COMMEN T The perce nt free PSA is perfo rmed on a refle x basis only when the total PSA is betwe en 4.0 and 10.0 ng/mL . Not Available [facility] ([facility]) [address] [facility], [place], [address], 09/14/2024 06:08:11 09/08/1909/14/2024 PSA TOTAL (REFL EX [...] t be inter prete d as absol [place] evide nce of the prese nce or absen ce of dexter baum se. Not Available [facility] ([facility]) [address] [facility], [place], [address], 09/14/2024 06:08:11 09/08/19 25 09/10/2024 MITOC HONDR IAL (M2) ANTIB GISELL mitochondria l (M2) antibody <20.0 units 0.0-20 .0 Negat erik 0.0 - 20.0 Equiv ocal 20.1 - 24.9 Posit erik >24.9 Mitoc hondr ial (M2) Antib odies are found in 90-96 % of patie nts with prima ry bilia ry cirrh osis. Not Available [facility] ([facility]) [address] [facility], [place], [address], 09/14/2024 06:08:11 09/08/19 25 09/12/2024 KING EN AUTHO RIZAT ION written authorizatio n COMMEN T King en Autho rizat ion Recei max. Autho rizat ion recei max from [facility] RAH DE for Link Reque st on 09-12 Logge d by Kwaku Logan Not Available [facility] ([facility]) [address] [place], [address], 09/21/2024 14:06:26 09/08/19 25 09/09/2024 WRITT EN AUTHO RIZAT ION written authorizatio n COMMEN T Writt en Autho rizat ion Recei max. Autho rizat ion recei max from [facility] KENISHA for Link Reque st on 09-09 Logge d by Kwaku Logan Not Available [facility] ([facility]) [address] [place], [address], 09/14/2024 06:08:12 09/08/19 25 09/19/2024 ALK PHOS ISOEN ZYME alkaline phosphatase COMMEN T IU/L Test not perfo rmed. Deter iorat ion occur red durin g speci men handl ing. Not Available [facility] ([facility]) [address] [place], [address], 09/21/2024 14:06:25 09/08/19 25 09/21/2024 ALK PHOS ISOEN ZYME liver fraction: COMMEN T % Test not perfo rmed. ALKPH prote in requi red to compl ete testi ng. Not Available [facility] ([facility]) [address] [place], [address], 09/21/2024 14:06:25 09/08/19 25 09/21/2024 ALK PHOS ISOEN ZYME bone fraction: COMMEN T % Test not perfo rmed. ALKPH prote in requi red to compl ete testi ng. Not Available [facility] ([facility]) [address] [place], [address], 09/21/2024 14:06:25 09/08/19 25 09/21/2024 ALK PHOS ISOEN ZYME intestinal frac.: COMMEN T % Test not perfo rmed. ALKPH prote in requi red to compl ete testi ng. Not Available [facility] ([facility]) [address] [place], [address], 09/21/2024 14:06:25 09/08/19 25 09/19/[address] PROBL EM request problem COMMEN T Test not perfo rmed. Deter iorat ion occur red durin g speci men handl ing. TEST: 86564 7 Alkal ine Phosp hatas e Panel : [id number] 2 Not Available [facility] ([facility]) [address] [place], [address], 09/21/2024 14:06:27 09/08/19 25 09/21/[address] PROBL EM request problem COMMEN T Test not perfo rmed. TEST: 75814 9 Liver Fract ion: Panel : [id number] 2 27735 0 Bone Fract ion: Panel : [id number] 2 39934 1 Intes tinal Frac. : Panel : [id number] 2 ALKPH prote in requi red to compl ete testi ng. Not Available [facility] ([facility]) [address] [place], [address], 09/21/2024 14:06:27 08/18/19 25 08/18/2024 US, echoc ardio gram No observ ation record ed. [facility] (Medical Records) [address] [place], [address], 08/23/2024 15:35:40 10/27/19 25 10/26/2024 XR, chest , 2 view No observ ation record ed. [facility] (Medical Records) [address] [place], [address], 11/02/2024 10:41:05 Result Notes None recorded. Problems Name Problem SNOMED Code Status Onset Date Resolution Date Notes Provider Name and Address Organization Details Recorded Time Counseli ng Completed 201102/07/2014 RECORDED 07/23/20 12 1:53PM BY CASIE AUSTIN MA, ANNOTATI ON/ADDEN DUM Leigh Ann BEEBEC [address], [place], [address] , [facility] 6 14:37:53 Type 2 diabetes mellitus without complica tion 029819988 Completed 201202/07/2014 RECORDED 04/14/20 13 3:34PM BY CASIE AUSTIN MA, ANNOTATI ON/ADDEN DUM Leigh Ann BEEBEC [address] [facility] [address], [place], [address] , [facility] 6 14:37:53 Malaise and fatigue 971715675 Completed 201102/07/2014 RECORDED 04/28/20 12 9:25AM BY LIBBY STEPHEN MA, ANNOTATI ON/ADDEN DUM Leigh Ann BEEBEC [address] [facility] [address], [place], [address] , [facility] 6 14:37:53 Influenz a vaccine needed 08764354778 06 Completed 201202/07/2014 RECORDED 04/14/20 13 3:41PM BY CASIE AUSTIN MA, OFFICE VISIT Leigh Ann Quinteros PA-C [address] [facility] [address], [place], [address] , [facility] 6 14:37:53 Gout 72190379 Active 2013 LUIS Ferrari, [facility] 4 15:12:02 Hyperlip idemia 25565148 Active 2013 LUIS Ferrari, [facility] 4 15:12:02 Chronic kidney disease stage 1 108854264 Completed 201312/15/2016 STORY: ELEVATED MICROALB UMIN; RECORDED 01/19/20 14 2:14PM BY CASIE AUSTIN MA, OFFICE VISIT Leigh Ann Quinteros PA-C [address] [address], [place], [address] , [facility] 7 14:56:27 Displace ment of lumbar interver tebral disc without myelopat hy 44273433 Active 2013 SEES PSSP LUIS Ferrari, [facility] 4 15:12:01 Proteinu nazia 74247247 Active 2013 LUIS Ferrari, [facility] 4 15:12:02 Obesity 463123485 Active 2013 LUIS Ferrari, [facility] 4 15:12:02 Infectiv e otitis externa 53350578 Completed 201102/07/2014 RECORDED 07/23/20 12 1:53PM BY CASIE AUSTIN MA, ANNOTATI ON/ADDEN DUM Leigh Ann Quinteros PA-C [address] [address], [place], [address] , [facility] 6 14:37:53 Active or passive immuniza tion Completed 201102/07/2014 RECORDED 07/23/20 12 2:00PM BY CASIE AUSTIN MA, OFFICE VISIT Leigh Ann Quinteros PA-C [address] [address], [place], [address] , [facility] 6 14:37:53 Administ ration of diphther ia and tetanus vaccine Completed 201202/07/2014 RECORDED 11/23/19 13 2:44PM BY CASIE AUSTIN MA, ANNOTATI ON/ADDEN DUM Leigh Ann Quinteros PA-C [address] [address], [place], [address] , [place] [facility] 6 14:37:53 Urolith Active 2013 HAS SEEN UROLOGY LUIS Ferrari, [facility] 4 15:12:02 Scrotal varices Active 2013 LUIS Ferrari, [facility] 4 15:12:02 Adult health examinat ion Completed 201303/06/2014 RECORDED 01/19/20 14 2:13PM BY CASIE AUSTIN MA, ANNOTATI ON/ADDEN DUM Leigh Ann Quinteros PA-C [address], [place], [address] , [facility] 6 14:37:53 Counseli ng Completed 201103/06/2014 RECORDED 07/23/20 12 1:53PM BY CASIE AUSTIN MA, ANNOTATI ON/ADDEN DUM Leigh Ann Quinteros PA-C [address], [place], [address] , [facility] 6 14:37:53 Type 2 diabetes mellitus without complica tion 683222809 Completed 201203/06/2014 RECORDED 04/14/20 13 3:34PM BY CASIE AUSTIN MA, ANNOTATI ON/ADDEN DUM Leigh Ann Quinteros PA-C [address], [place], [address] , [facility] 6 14:37:53 Malaise and fatigue 041493008 Completed 201103/06/2014 RECORDED 04/28/20 12 9:25AM BY LIBBY STEPHEN MA, ANNOTATI ON/ADDEN DUM Leigh Ann Quinteros PA-C [address], [place], [address] , [facility] 6 14:37:53 Influenz a vaccine needed 37926413533 06 Completed 201203/06/2014 RECORDED 04/14/20 13 3:41PM BY CASIE AUSTIN MA, OFFICE VISIT Leigh Ann Quinteros PA-C [address] [facility] [address], [place], [address] , [facility] 6 14:37:53 Insomnia 237603264 Active 2013 LUIS Ferrari, [facility] 4 15:12:01 Infectiv e otitis externa 21923485 Completed 201103/06/2014 RECORDED 07/23/20 12 1:53PM BY CASIE AUSTIN MA, ANNOTATI ON/ADDEN DUM Leigh Ann Quinteros PA-C [address] [facility] [address], [place], [address] , [facility] 6 14:37:53 Active or passive immuniza tion Completed 201103/06/2014 RECORDED 07/23/20 12 2:00PM BY CASIE AUSTIN MA, OFFICE VISIT Leigh Ann Quinteros PA-C [address] [facility] [address], [place], [address] , [facility] 6 14:37:53 Administ ration of diphther ia and tetanus vaccine Completed 201203/06/2014 RECORDED 11/23/19 13 2:44PM BY CASIE AUSTIN MA, ANNOTATI ON/ADDEN DUM Leigh Ann Quinteros PA-C [address] [facility] [address], [place], [address] , [facility] 6 14:37:53 Otitis media 96734064 Completed 01/15/2017 LUIS Ward, [facility] 7 14:00:47 Disorder of cellular componen t of blood 521398716 Completed 201308/20/2024 Vivi De MD [address] [facility] [address], [place], [address] , [facility] 5 22:35:18 Uncontro lled type 2 diabetes mellitus 130796629 Completed 201301/05/2017 RECORDED 01/21/20 14 11:18AM BY SHANE KITCHENIC AL SUMMARY Leigh Ann Quinteros PA-C [address] [facility] [address], [place], [address] , [facility] 7 12:05:05 Renal disorder due to type 2 diabetes mellitus 493401880 Active 2020 Not Available [facility] 4 18:06:38 Otitis externa 9039316 Completed 01/15/2017 LUIS Ward, [facility] 7 14:00:31 Body mass index 30+ - obesity 107244139 Completed 05/13/2017 Leigh Ann Quinteros PA-C [address] [facility] [address], [place], [address] , [facility] 7 17:10:10 Type 2 diabetes mellitus 77589055 Completed 01/05/2017 Leigh Ann Quinteros PA-C [address] [facility] [address], [place], [address] , [facility] 7 12:04:58 Tachycar jimi 4885467 Completed 08/17/2023 Vivi De MD [address] [facility] [address], [place], [address] , [facility] 4 16:02:45 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 66190232 Active LUIS Ferrari, [facility] 4 15:12:02 Primary erectile dysfunct ion 877501875 Active LUIS Ferrari, [facility] 4 15:12:02 Hyperkal emia 96023527 Completed 202008/23/2023 Vivi De MD [address] [facility] [address], [place], [address] , [facility] 4 13:51:59 Chronic kidney disease stage 3 067293025 Completed 11/24/2023 Vivi De MD [address] [facility] [address], [place], [address] , [facility] 4 19:07:37 Noncompl iance with therapeu tic regimen 648318551 Active 2017 LUIS Ferrari, [facility] 4 15:12:01 Diabetic on insulin 247074269 Active 2017 LUIS Ferrari, [facility] 4 15:12:01 Poor short-te rm memory 546738931 Active 2019 LUIS Ferrari, [facility] 4 15:12:02 Hyperten sive renal disease 45513101 Active 2019 DX: I12.9 Not Available [facility] 4 18:06:38 Iliopsoa s bursitis of right hip 59282456761 00063 Completed 202008/17/2023 Vivi De MD [address] [address], [place], [address] , [facility] 4 15:47:00 Hypomagn esemia 573935742 Active 2020 Not Available [facility] 4 18:06:37 Acute kidney injury 07283715 Completed 202008/15/2023 Vivi De MD [address] [address], [place], [address] , [facility] 4 15:46:57 Hyperten kiko monitori ng status 078743285 Active 2023 dis-enro sukumar lucia, [facility] 4 09:51:37 Chronic kidney disease stage 4 050455464 Active 2023 Vivi De MD [address] [facility], [place], [address] , [facility] 4 19:07:44 Hyperpar athyroid ism due to renal insuffic iency 49322940 Active 2023 Vivi De MD [address] [address], [place], [address] , [facility] 4 07:19:59 Heart failure 38369339 Active 2024 Lorenzo Quinteros PA-C [address] [address], [place], [address] , [facility] 5 09:19:32 Problem Notes None recorded. Procedures Surgical History Date Name Laterality Status Provider Name and Address Organization Details Recorded Time 08/22/19 25 Advanced Care Planning completed Vivi De MD [address] [address], [place], [address], [facility] 08/20/2024 22:29:02 08/17/19 24 Advanced Care Planning completed Vivi De MD [address] [address], [place], [address], [facility] 08/15/2023 15:44:21 05/04/20 23 removal of catheter completed Yesi Farris [facility] 05/06/2023 13:15:36 04/10/20 23 Diabetic Foot Exam (Monofilament) completed Vivi De MD [address] [address], [place], [address], [facility] [facility] 04/10/2023 13:37:37 03/26/20 23 retrograde pyelogram completed Yesi Farris [facility] 03/27/2023 09:26:09 03/26/20 23 ureteric lithotripsy completed Yesi Farris [facility] 03/27/2023 09:26:39 03/26/20 23 insertion of stent into ureter completed Yesi Farris [facility] 03/27/2023 09:26:57 07/15/20 22 Advanced Care Planning completed Felicita Cai [facility] 07/17/2022 13:15:29 03/17/20 22 Diabetic Foot Exam (Monofilament) completed Vivi De MD [address] [facility], [place], [address], [facility] 03/17/2022 15:17:06 06/18/20 21 Advanced Care Planning completed Vivi De MD [address], [place], [address], [facility] 06/18/2021 08:50:42 06/18/20 21 Diabetic Foot Exam (Monofilament) completed Vivi De MD [address] [facility] [address], [place], [address], [facility] 06/18/2021 18:56:54 06/04/20 20 Six-Item Cognitive Test completed Casie badillo MA [facility] 06/04/2020 15:16:46 09/15/19 20 Colonoscopy completed Casie badillo MA [facility] 06/04/2020 15:14:36 04/15/20 19 Mini-Cog Test completed Casie badillo MA [facility] 04/15/2019 15:42:06 09/20/19 19 Diabetic Foot Exam (Monofilament) completed Celia Ortiz MA [facility] 09/20/2018 14:36:35 04/16/20 18 Diabetic Foot Exam (Monofilament) completed Clemencia Lindsey MA [facility] 04/16/2018 14:44:34 03/05/20 18 Diabetic Foot Exam (Monofilament) completed Clemencia Lindsey MA [facility] 03/05/2018 12:51:44 01/27/20 18 Diabetic Foot Exam (Monofilament) completed Clemencia Lindsey MA [facility] 01/26/2018 09:37:53 05/15/20 18 Diabetic Foot Exam (Monofilament) completed Dottie Moe MA [facility] [place] 12/08/2017 15:02:35 07/27/18 58 tonsillectomy completed Hadley Main MA [facility] [place] 07/15/2022 14:41:22 Imaging Results Imaging Date Name Status LastModified by Organization Details LastModified Time 08/18/2024 US, echocardiogram completed [email or web address] [facility] (Medical Records) [address] [place] [address], [id number], 08/23/2024 15:35:40 10/26/2024 XR, chest, 2 view completed [facility] (Medical Records) [address] [place] [address], [id number], 11/02/2024 10:41:05 Procedure Notes None recorded. Medical Equipment None Reported. Allergies Allergen ID Allergen Name Allergen Category Reaction Reaction Severity Criticality Documentation Date Start Date Code Code System Note Provider Name and Address Organization Details Recorded Time 41750 Victoza medicatio n abdominal pain Not available Not available 04/16/2018 25205 3 RxNorm Leigh Ann Aldair PELAEZ [address] [facility] [address], [place], [address], [facility] [place] 8 15:07:08 89336 liragluti de medicatio n other Not available Not available 05/20/20212020 61574 8 RxNorm Leisaclaudy lucia, [facility] 1 10:45:47 00025 Product containin g angiotens in-conver ting enzyme inhibitor (product) medicatio n Not available Not available low 11/24/2023 31411 009 SNOMED See renal note Vivi De MD [address] [facility] [address], [place], [address], [facility] [place] 4 19:07:27 Medications Name Sig Start Date [...] active Not Available Not Available Not Available temazepam [...] completed Not Available Not Available Not Available hydroco/a [...] TAKE 1 TABLET BY MOUTH EVERY DAY 11/14 completed prn allergy season Not Available Not Available Not Available cefpodoxi me 200 mg tablet TAKE 1 TABLET BY MOUTH EVERY DAY 11/14 completed Not Available Not Available Not Available azithromy demarcus 250 mg tablet TAKE [...] 1 TABLET ORALLY 2 TIMES A DAY 11/14 completed Not Available Not Available Not Available magnesium oxide 400 mg (241.3 mg magnesium ) tablet TAKE 1 TABLET BY MOUTH EVERY DAY 11/14 completed Not Available Not Available Not Available temazepam 15 mg capsule TAKE 1 [...] 5 gram oral powder packet po tid 11/14 completed Not Available Not Available Not Available Lokelma [...] Updated DateTime 4 177.8 cm 31.2 kg/m2 38940.2 4 g 82 /min 97 % 97 % 98.3 [degF] 135 mm[Hg] 63 mm[Hg] Humaira Jo LPN [facility] [place] 4 15:24:10 Date Recorded Body height Provider Name an d Address Organization Details Last Updated DateTime 08/03/2024 177.8 cm Azra Torres MA [facility] [place] 08/03/2024 14:36:10 Date Recorded Body mass index (BMI) Body weight Heart rate Oxygen saturation Oxygen saturation in Arterial blood by Pulse oximetry Body temperature Systolic blood pressure Diastolic blood pressure Provider Name and Address Organization Details Last Updated DateTime 5 32.3 kg/m2 830816. 28 g 86 /min 97 % 97 % 98.4 [degF] 154 mm[Hg] 70 mm[Hg] Jaci santacruz [facility] 5 14:43:16 Date Recorded Body height Body mass index (BMI) Body weight Heart rate Oxygen saturation Oxygen saturation in Arterial blood by Pulse oximetry Body temperature Systolic blood pressure Diastolic blood pressure Provider Name and Address Organization Details Last Updated DateTime 5 177.8 cm 30.6 kg/m2 16362.1 7 g 84 /min 96 % 96 % 98.3 [degF] 150 mm[Hg] 66 mm[Hg] Casie stubbs [facility] 5 15:25:23 Date Recorded Systolic blood pressure Diastolic blood pressure Provider Name and Address Organization Details Last Updated DateTime 08/22/2024 154 mm[Hg] 72 mm[Hg] Elena Mata [facility] 08/22/2024 16:14:01 Date Recorded Body height Body mass index (BMI) Body weight Oxygen saturation Oxygen saturation in Arterial blood by Pulse oximetry Heart rate Body temperature Systolic blood pressure Diastolic blood pressure Provider Name and Address Organization Details Last Updated DateTime 5 177.8 cm 30.5 kg/m2 74679.3 8 g 97 % 97 % 91 /min 100.4 [degF] 163 mm[Hg] 77 mm[Hg] Dottie Moe MA [facility] [place] 5 09:51:44 Date Recorded Body height Body mass index (BMI) Body weight Heart rate Oxygen saturation Oxygen saturation in Arterial blood by Pulse oximetry Body temperature Systolic blood pressure Diastolic blood pressure Provider Name and Address Organization Details Last Updated DateTime 5 177.8 cm 30 kg/m2 10947.8 1 g 92 /min 96 % 96 % 98.1 [degF] 120 mm[Hg] 63 mm[Hg] Azra Torres MA [facility] 5 08:31:24 Social History Question Answer Notes LastModified by Organizat ion Details LastModified Time Tobacco Smoking Status Never Smoker La Nena Romeo [facility] 03/30/2014 15:10:37 Do You Have An [...] not available 06/04/2020 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 Information not available 06/26/2014 Live Alone [...] conjugate PCV 13 7 completed LUIS Hanks [facility] 03/05/2018 13:04:15 zoster live 7 completed Not Available [facility] 08/15/2023 18:06:39 zoster live 5 completed LUIS Hanks [facility] 03/05/2018 13:05:03 zoster live 7 completed LUIS Ferrari [facility] 08/17/2023 15:12:09 COVID-19, mRNA, LNP-S, PF, 100 mcg/0.5mL dose or 50 mcg/0.25mL dose 1 completed LUIS Ferrari [facility] 08/17/2023 15:12:08 COVID-19, mRNA, LNP-S, PF, 100 mcg/0.5mL dose or 50 mcg/0.25mL dose 1 completed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 Advance directives discussed. Fatigue 73921599 R53.83 Hyperlipidemia 28979394 E78.5 Hypomagnesemia 803568983 E83.42 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 55103113 D64.9 Will continue to monitor in 3 mo visit. Advance di rective discussed with patient 401062340 Z71.89 MOLST/HCP provided and discussed. Gout 08772356 M10.9 Impacted c erumen of bilateral ears 8944000533 549963 H61.23 Administra tion of viral vaccine 67273246 Z23 Varicella vaccination 68 358331 Z23 [id number] Azra Torres [place] Main Office [address] [facility] 207 [facility] [place] [address] 04/10/2023 12:52:49 04/10/2023 13:49:56 Renal disorder due to type 2 diabetes mellitus 854526719 E11.22 Follows [facility] endo for diabetestx per endo. (humalog 15 units TID, tresiba 65 units), reminded to reach out to endo.Will stop Pioglitazo ne and have care per Endo perhaps he might be a good candidate for GLP1 vs SGLT 2.Tells me last a1c at [facility] was 6.8On statin.Oph thalmology exam has [...] in seeing one Hypertensi ve renal disease 61753176 I12.9 bp soft will hold amlodipine . Advised to check bp. Chronic ki dney disease stage [address] Martínez advised regular follow up. Edema of l ower extremity 985276210 R60.0 compressio n stocking advised Insomnia 652331649 G47.0 0 Pericardial effusion 373 991971 I31.39 Likely 2/2 to fluid overload, now on HD. Influenza vaccine needed 6439224085 106 Z23 Abrasion 494622819 T14.8 XXA Right 4th toe, no warmth or fluctuance , no drainage, area cleaned and bacitracin placed and bandage. Advised daily wound check. Call if no improvemen t. Also advised to follow podiatry. [id number] Felicita Cai Main Office [address] [facility] [address] [place] [address] 08/17/2023 14:49:27 08/17/2023 16:07:35 Adult health examination 166837192 Z00.00 Patient was counseled on healthy diet, exercise and nutrition due to Body mass index is 31.6 kg/m? ? ?. Last PSADate: 12/06/21Res ult: 1.5Plan: wants to stop screening. Last Colonoscop y:Date: 09/15/2019R esult: acute colitisPla n: tells me next due in 10 yrs, Vaccines:T d: 8/10/22Zos ter rec:script provided [id number] : 03/05/18PPS V23: 07/23/12, 04/15/19PCV 20: DiscussedI nfluenza: 04/10/23Cov id: 08/17/20, 09/14/20, 06/23/21, encourage updated vaccineRSV : Discussed Routine labs today Immunizati on status reviewed. Will screen based on risk factors. Regular dental and ophtho care advised as well as seat belt and sunscreen use. Distracted driving discussed. Medication reconciled . Advance directives discussed. Advance di rective discussed with patient 931538834 Z71.89 MOLST/HCP provided and discussed. Administra tion of pneumococcal vaccine 96614566 Z23 Administra tion of viral vaccine 43393464 Z29.11 Chronic ki dney disease stage [address] Martínez advised regular follow up. Renal diso rder due to type 2 diabetes mellitus 043294698 E11.22 tx per [facility] endo, a1c/microa lbumin ordered, will fax to endo along with CMP and lipids.I[place]ia morales Ophthalmol ogy exam advisedFol cady Renal Dr. Gallo [facility] o[facility] last see in 12/24/2022 Lipid profile ordered - On statin.Cou nselled about regular physical activityCo unselled on dietAdvise d regarding risks/sign s/symptoms of hypoglycem ia. Counseled to carry a snack in case of emergencie sAdvised to check fingerstic k glucose at home Diabetic on insulin 1707 47578 Z79.4 Fatigue 41498111 R53.83 Z00.00 Hyperlipidemia 69625695 E78.5 Z00.00 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 32334630 D64.9 Will continue to monitor in 3 mo visit. Varicella vaccination 68 036523 Z23 Gout 37372851 M10.9 Hyperkalemia 96601291 E8 7.5 Insomnia 051598899 G47.0 0 Noncomplia nce with therapeutic regimen 172178774 Z91.199 Venereal d isease screening 882118404 Z20.2 Z11.3 [id number] Vivi De MD Main Office [address] [facility] 207 [facility] [place] [address] 11/24/2023 15:25:07 11/24/2023 16:18:16 Vitamin D deficiency 21889084 E55.9 on supplement ation Insomnia 879588745 G47.0 0 Reviewed the risk of benzo use. Will continue current regimen till he is evaluated by sleep medicine.C ontrol substance completed. Displaceme nt of lumbar intervertebral disc without myelopathy 29293099 M51.26 Follows pain management Chronic ki dney disease stage 4 726578091 N18.4 Cont. renal follow up. Hypertensi ve renal disease 07205543 I12.9 Stable on current regimen. Renal diso rder due to type 2 diabetes mellitus 188971222 E11.22 Follows [facility] endo. History of calculus of kidney 097576906 Z87.[address] he had done by urology reveals he has cleared renal stone [id number] Felicita Cai Main Office [address] [address] [place] [address] 12/15/2023 13:23:53 12/15/2023 13:53:43 Acute conjunctivitis 88615752 H10.33 Allergic conjunctivitis 255844091 H10.13 Allergic rhinitis 913005 04 J30.9 Trigger fi nger of left hand 2554713185 9124208 M65.312 [id number] Chapito Paz MD Main Office [address] [address] [place] [address] 02/24/2024 13:21:08 02/24/2024 14:18:03 Fatigue 98715497 R53.83 No clear etiology. Possible infectious although his only symptoms is fatigue. Does not appear to be mood related. [id number] Felicita Cai Main Office [address] [address] [place] [address] 03/01/2024 13:49:15 03/01/2024 14:47:08 Fatigue 38554142 R53.83 Z00.00 Alkaline p hosphatase above reference range 142938214 R74.8 Hypertensi ve renal disease 46672436 I12.9 Chronic ki dney disease stage 4 571932268 N18.4 Cont. renal follow up. [id number] Felicita Cai Main Office [address] [address] [place] [address] 03/07/2024 10:48:01 03/07/2024 11:37:38 Hyperglycemia due to type 2 diabetes mellitus 1842889995 19031 E11.65 Insulin tr eated type 2 diabetes mellitus 620375828 Z79.4 Liver enzy mes level above reference range 142074221 R74.01 Vitamin D deficiency 347 04859 E55.9 on supplement ation, compliance discussed. Urinary tr act infectious disease 73401449 N39.0 -Has fatigue could be uti, will renally dose with levaquin every other day.-Advis ed to monitor glucose.-H ydration enforced. Hyperkalemia 62992336 E8 7.5 -ECG done 03/01/24 visit. Insomnia 364023038 G47.0 0 Reviewed the risk of benzo use. Will continue current regimen till, advised to follow up with sleep medicine for sleep study. Hypertensi ve renal disease 27144342 I12.9 Advised to increase amlodipine to 2 (2.5mg) he has a follow up with renal in 2 weeks. Advised to monitor to bp then. I will re-check with him in 1 week. Chronic ki dney disease stage 4 215981538 N18.4 Cont. renal follow up. [id number] Vivi De MD Main Office [address] [address] 04/11/2024 10:54:20 04/11/2024 12:28:00 Hyperglycemia due to type 2 diabetes mellitus 4229822669 76336 E11.65 Follows endo. Insulin tr eated type 2 diabetes mellitus 641275002 Z79.4 Liver enzy mes level above reference range 147208855 R74.01 Vitamin D deficiency 347 66057 E55.9 on supplement ation followed by renal. Insomnia 480728358 G47.0 0 -Reviewed the risk of benzo use. Will continue current regimen, Advised to follow up with sleep medicine for sleep study. Hypertensi ve renal disease 59358071 I12.9 Advised to increase amlodipine to 2 (2.5mg) he has a follow up with renal in 2 weeks. Advised to monitor to bp then. I will re-check with him in 1 week. Chronic ki dney disease stage 4 949951278 N18.4 Cont. renal follow up. Influenza vaccine needed 3170925484 106 Z23 65 YEARS AND OLDER Urinary tr act infectious disease 02070392 N39.0 Resolved after tx. [id number] Vivi De MD Main Office [address] [facility] [address] [place] [address] 05/17/2024 14:27:11 05/17/2024 15:24:40 Ulcer of foot 28389229 L97.919 He is a diabetic, will cover with abx (bactrim), Granulatio n tissue noted. Area marked 5.5x5.5 cm.CrCl > 30 , Calculated with January 2024 Cr, calculated to be 33.Advised to keep area clean and dry.Angel r protection with Vaseline.A void pedicure.R eferral to breakdown mill operator provided.Vaibhav alfredo glycemic control encouraged Follow up 1 week. [id number] Felicita Cai Main Office [address] [address] [place] [address] 05/27/2024 15:08:01 05/27/2024 15:44:58 Ulcer of foot 65543175 L97.919 Area is healing well has granulatio n tissue.He did not see breakdown mill operator . I will refer to wound clinic due to compliance issues and the fact that he is a diabetic,N o further abx needed at this time.Encou raged glycemic control.En couraged to keep the area covered and protected. [id number] Chapito Paz MD Main Office [address] [address] [place] [address] 08/03/2024 14:24:21 08/03/2024 15:28:21 Edema of lower extremity 357659793 R60.0 This is most likely related to his kidney disease. Will recheck kidney labs and will also check a proBNP. Heart failure is a possibilit y but will hold off on an ECHO. Doubt DVT since both LE's are involved. We discussed a reduced salt diet as well as elevation. [id number] Vivi De MD Main Office [address] [address] [place] [address] 08/22/2024 15:00:03 08/22/2024 16:16:31 Adult health examination 865583970 Z00.00 Patient was counseled on healthy diet, exercise and nutrition due to Body mass index is 30.6 kg/m? ? ?. Last PSADate: 03/01/24Resu lt: 2.9Plan: past age for screening Last Colonoscop y:Date: 09/15/2019R esult: acute colitisPla n: tells me next due in 10 yrs, Vaccines:T d: 03/05/22Zos ter rec: Script provided [id number] : 03/05/18PPS V23: 07/23/12, 04/15/19PCV 20: DiscussedI nfluenza: 04/11/24Cov id: encourage updated vaccineRSV : Discussed Routine labs today Immunizati on status reviewed. Will screen based on risk factors. Regular dental and ophtho care advised as well as seat belt and sunscreen use. Distracted driving discussed. Medication reconciled . Advance directives discussed. Advance di rective discussed with patient 978896060 Z71.89 MOLST/HCP provided and discussed. Renal diso rder due to type 2 diabetes mellitus 338413951 E11.22 tx per [facility] endo, microalbum in ordered, will fax to endo along with CMP and lipids.[place] rljay Ophthalmol ogy exam advisedFol cady Renal Dr. Rodolfo mishra profile ordered - On statin.Cou nselled about regular physical activityCo unselled on dietAdvise d regarding risks/sign s/symptoms of hypoglycem ia. Counseled to carry a snack in case of emergencie sAdvised to check fingerstic k glucose at home Diabetic on insulin 1707 42233 Z79.4 Hyperlipidemia 94865669 E78.5 Z00.00 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 35444029 D64.9 Will continue to monitor in 3 mo visit. Gout 84307089 M10.9 Hyperkalemia 85142949 E8 7.5 Fatigue 58784857 R53.83 Z00.00 Insomnia 105080501 G47.0 0 -Reviewed the risk of benzo use. Will continue current regimen, Advised to follow up with sleep medicine for sleep study. Varicella vaccination 68 529069 Z23 Chronic ki dney disease stage [address] Martínez advised regular follow up. Alkaline p hosphatase above reference range 347397037 R74.8 Vitamin D deficiency 347 10365 E55.9 on supplement ation followed by renal. Hypertensi ve renal disease 60570353 I12.9 Bp elevated increase amlodipine to 10mg. Follow up 1 mo. [id number] Vivi De MD Main Office [address] [facility] [address] [place] [address] 11/02/2024 09:34:28 11/02/2024 10:57:07 Fever 684703702 R50.9 fever of unknown etiology - d/w Dr. De - check labs, urine, cxrwill rx c empiric abx - to help keep him out of the hospitalre commend probiotics while on abx Chronic ki dney disease stage 4 693108552 N18.4 cont lasix 40mg bid as per renal - next f/u c renal next wedmost likely has cardiorena l syndrome*w ill fwd copy of this ov note to renal* Renal diso rder due to type 2 diabetes mellitus 891717558 E11.22 cont meds, f/u c endo as dir Heart failure 98532373 I 50.9 as per renal note last week was hypervolem ic - began lasix 40mg bid - see [place] 24 lbs from renal ov last weekmost likely has HFpEF d/t results of echo 1.23.25 (see above)chec k labsrec avoid saltdoes not appear pt sees cardiologi st - will discuss c pt at f/u visit next week Dysuria 11361854 R30.0 [id number] Vivi De MD Main Office [address] [facility] [address] [place] [address] 11/14/2024 08:24:29 11/14/2024 09:22:59 Venereal disease screening 100005935 Z11.3 Left flank pain 05055524 9 R10.9 Fever 202191056 R50.9 Pneumonia caused by respiratory syncytial virus 565556294 J12.1 Chill 96154257 R68.83 Health Concerns Section Related Observation LastModified by Organization Detai ls LastModified Time None Recorded Concern Status LastModified by Organization Details LastModified Time None Recorded Advance Directives Directive Y: Anne-Marie Condeantoni (sister) Payers Encounter Date Sequence Insurance Name Policy Number Policy Frederick Covered Member ID Frederick Member ID Guarantor Name 05/27/2024 1 [facility] (MEDICARE REPLACEMENT/A DVANTAGE - PPO) [id number] Ryan Conderecvik [id number] Ryan Wade [place] 08/03/2024 1 [facility] (MEDICARE REPLACEMENT/A DVANTAGE - PPO) [id number] Ryan Wade [place]que [id number] Ryan Wade Lab[place]que 08/22/2024 1 [facility] (MEDICARE REPLACEMENT/A DVANTAGE - PPO) [id number] Ryan Wade [place]que [id number] Ryan Wade [place]que 11/02/2024 1 [facility] (MEDICARE REPLACEMENT/A DVANTAGE - PPO) [id number] Ryan Wade [place]que [id number] Ryan Wade [place] 11/14/2024 1 [facility] (MEDICARE REPLACEMENT/A DVANTAGE - PPO) [id number] Ryan Wade [place]que [id number] Ryan Wade [place] Notes Date Note Type Note Provider Name and Address Organization Details Recorded Time 05/27/2024 text/html Follow up for r ankle wound check, healing well. Completed Bactrim, notes the wound size is decreasing, and improving, has not used anymore cortisone cream or hand postdoctoral fellow. Did schedule a podiatry follow up. Felicita lucia, [facility] 06/08/2024 15:23:11 08/03/2024 text/html He has [...] had variable control. Chapito Paz MD [address] [address], [place], [address], [place] [facility] 08/03/2024 18:09:03 08/22/2024 text/html Medicare Annual Wellness [...] not at goal. Continues to work with [facility] Follows renal for CKD4 Vivi De MD [address] [address], [place], [address], [facility] 08/22/2024 17:25:23 11/02/2024 text/html here for hospita l f/u - pna, rsv == no dc summary to reviewapparently he went [facility] - [facility] - discharged on 10.22since then, has [...] but h/o recurrent uti's Vivi De MD [address] [facility] [address], [place], [address], [facility] 11/04/2024 12:23:31 11/14/2024 text/html The patient pres ents today accompanied by his sister and son, whom he permitted to be present for the visit. He was recently hospitalized for RSV and pneumonia, and subsequently followed up with my colleagues a few weeks ago. At that time, he was evaluated for fever of unknown origin and was prescribed doxycycline and cefdinir. He is also under the care of a distillery miller helper and reports feeling much better overall. Prior to his hospitalization, he experienced chills. His son questioned whether Lasix could have contributed to his symptoms. However, the patient currently denies any chills and continues to take Lasix as prescribed by his distillery miller helper. They also inquired about refills for sodium bicarbonate and sodium polystyrene sulfonate, both prescribed by the distillery miller helper; I advised them to contact that provider for refills. We also talked about gabapentin dosing, which requires renal adjustments. The patient also requested STI testing during today? s visit. Additionally, he reported experiencing severe left-sided flank pain radiating to the groin, for which he inadvertently took 800 mg of ibuprofen. I reiterated that he should avoid all NSAIDs, including ibuprofen, due to his chronic kidney disease (Stage IV). I emphasized the importance of close follow-up with his distillery miller helper and advised that acetaminophen is the safest [id number]-[id number] pain reliever for him, not exceeding 3 grams in 24 hours, with a suggested dose of (2) 500 mg every 6 hours as needed. He is overdue for follow-up with his urologist, and I encouraged him to call their office to schedule an appointment. As for his recovery from RSV and secondary pneumonia, he is currently afebrile and asymptomatic. Vivi De MD [address] [facility] [address], [place], [address], [facility] 11/14/2024 10:39:22
--- OUTSIDE RECORDS SUMMARY | 2024-11-17 13:56 | XMS_ITS | Clinical Summary ---
Author Organization [facility] Address [address] [place] [address] Care Team Providers Care Product Manager E Commerce Name Role Phone Unavailable Primary Care Provider [...] at Discharge) cholecalciferol (CHOLECALCIFERO L) 1.25 MG (07908 UT) capsule Take 1 capsule (50,000 Units [...] Description 10/18/2024 4:00 PM EDT Ancillary Procedure [facility] [address] [place] [address] Provider, File Room 10/18/2024 10:27 AM EDT - 10/22/2024 11:46 AM EDT Hospital Encounter [address] [facility] [place] [address] Marcelino Garcia MD Elias, Michael, MD Javed, Zohaib, MD Nair, MD Christal Acute hypoxic respiratory failure (HCC) (Primary Dx); Pneumonia due to infectious organism, unspecified laterality, unspecified part of lung Discharge Disposition: Home or Self Care 10/17/2024 Orders Only [facility] [address] [place] [address] Provider, File Room from Last 3 Months Social History Tobacco Use Types Packs/Day Years Used Date Smoking Tobacco: Never Assessed [facility] Utilities Answer Date Recorded In the [...] any time in the past 12 m [facility], were you homeless or living in a penitentiary (including now)? No 10/21/2024 Sex and Gender [...] MD LAB BLOOD ORDERABLES Final Resul t [facility] [address] [place] [address], [place] * (ABNORMAL) Basic Metabolic Panel (Early [...] MD LAB BLOOD ORDERABLES Final Resul t [facility] [address] [place] [address], [place] * (ABNORMAL) POCT Glucose, Fingerstick (10/22/2024 7:42 AM EDT) Only the most recent of20 resultswithin the time period is included. Pathologist [facility] POC Glucose 150(H) 65 - 99 mg/dL 10/22/2024 7:48 AM EDT Blood specimen / Unknown 10/22/2024 7:42 AM EDT 10/22/2024 7:48 AM EDT us Christal Castrejon MD POINT OF CARE TEST ORDERABLES Fi nal Result HOSPITAL LAB See Below * ECHOCARDIOGRAM COMPREHENSIVE WITH CONTRAST (10/20/2024 12:11 PM EDT) Pathologist [facility] IVS Mean (F:0.6-0.9, M:0.6-1.0) 1.0 [...] MD LAB BLOOD ORDERABLES Final Resu lt [facility] [address] [place] [address], * MAGNESIUM (10/20/2024 5:31 AM EDT) Only the most recent of3 resultswithin the time period is included. Magnesium 2.1 1.6 - 2.6 mg/dL 10/20/2024 6:[address] [facility] Blood Blood specimen / Unknown 10/20/2024 5:31 AM EDT 10/20/2024 5:37 AM EDT us Hadley Johnson MD LAB BLOOD ORDERABLES Final Resu lt [facility] [address] [place] [address], * (ABNORMAL) Comprehensive Metabolic Panel (10/20/2024 5:31 [...] MD LAB BLOOD ORDERABLES Final Resu lt [facility] [address] [place] [address], * (ABNORMAL) POCT Blood Gas, Arterial (10/19/2024 3:46 PM EDT) Only the most recent of5 resultswithin the time period is included. Sample Type Arterial 10/19/2024 3:48 PM EDT [facility] Lab pH, Arterial 7.36 7.35 - 7.45 10/19/2024 3:48 PM EDT [facility] Lab pCO2, Arterial 36 35 - 45 mmHG 10/19/2024 3:48 PM EDT [facility] Lab pO2, Arterial 48(LL) 80 - 100 mmHG 10/19/2024 3:48 PM EDT [facility] Lab HCO3 20.0(L) 22 - 26 mmol/L 10/19/2024 3:48 PM EDT [facility] O2 Saturation, Arterial 79.0(L) 95 - 100 % 10/19/2024 3:48 PM EDT [facility] Lab Base Deficit, Arterial 4.5 mmol/L 10/19/2024 3:48 PM EDT [facility] Lab Comment:REFERENCE RANGE: NEG ATIVE 2 TO POSITIVE 2 Liter Flow, I-STAT 3.0 10/19/2024 3:48 PM EDT [facility] Lab Comments POC VENOUS 10/19/2024 3:48 PM EDT [facility] Lab 10/19/2024 3:46 PM EDT 10/19/2024 3:48 PM EDT Hadley Johnson MD POCT ORDERABLES - DEVICE Final Result [facility],PULMONARY LAB [address] [place] [address], [facility],Pulmonary Lab [address] [facility], [place] * XR Chest 1 view-Portable [...] is included. Ventricular rate 94 BPM EKG [facility] Atrial rate 94 BPM EKG [facility] P-R interval 138 ms EKG [facility] QRS duration 88 ms EKG [facility] Q-T interval 386 ms EKG [facility] QTC calculation (Bazett) 483 ms EKG [facility] P axis 60 degrees EKG [facility] R axis 19 degrees EKG [facility] T axis 55 degrees EKG [facility] 10/19/2024 9:20 AM EDT Narrative EKG [facility] - 10/19/2024 9:41 AM EDT Normal sinus rhythm Prolonged QT Abnormal ECG When compared with ECG of 18-Oct-2024 11:36, No significant change was found Confirmed by MD Simmons Venu ([id number]) on 10/19/2024 9:41:44 AM Procedure Note Roland Simmons MD - 10/19/2024 Normal sinus rhythm Prolonged QT Abnormal ECG When compared with ECG of 18-Oct-2024 11:36, No significant change was found Confirmed by MD Simmons Venu ([id number]) on 10/19/2024 9:41:44 AM us Hadley Johnson MD ECG ORDERABLES Final Result Performing Organization Address City/[facility]/ZIP Co de Phone Number EKG [facility] * (ABNORMAL) POCT, Ionized Calcium (10/18/2024 11:02 PM EDT) POC Ionized Calcium 4.30(L) 4.60 - 5.32 mg/dL 10/18/2024 11:06 PM EDT [facility]ulmo nary Lab Smear Cmt LEFT RADIAL POSITIVE COLLATERAL No comment 10/18/2024 11:06 PM EDT [facility]ul[facility]ary Lab 10/18/2024 11:0 2 PM EDT 10/18/2024 11:05 PM EDT us Hadley Johnson MD POCT ORDERABLES - DEVICE Final Result Performing Organization Address [facility] Co de Phone Number [facility],PULMONARY LAB [address] [place] [address], [facility],Pulmonary Lab [address] [facility], [place] * POCT, Lactate (10/18/2024 11:02 PM EDT) [facility] Lactate, POC 0.6 0.4 - 0.8 mmol/L 10/18/2024 11:06 PM EDT [facility]ul[facility]ary Lab Comment LEFT RADIAL POSITIVE COLLATERAL No comment 10/18/2024 11:06 PM EDT [facility] Lab 10/18/2024 11:0 2 PM EDT 10/18/2024 11:05 PM EDT us Hadley Johnson MD POCT ORDERABLES - DEVICE Final Result Performing Organization Address City/[facility] Co de Phone Number [facility],PULMONARY LAB [address] [place] [address], [facility],Pulmonary Lab [address] [facility], [place] * POCT, Sodium (10/18/2024 11:02 PM EDT) Sodium 138 136 - 145 mmol/L 10/18/2024 11:06 PM EDT [facility] Lab Smear Comm LEFT RADIAL POSITIVE COLLATERAL No comment 10/18/2024 11:06 PM EDT [facility] Lab 10/18/2024 11:0 2 PM EDT 10/18/2024 11:05 PM EDT us Hadley Johnson MD POCT ORDERABLES - DEVICE Final Result [facility],PULMONARY LAB [address] [place] [address], [facility],Pulmonary Lab [address] [place], [place] * POCT, Potassium (10/18/2024 11:02 PM EDT) Potassium 4.3 3.5 - 5.1 mmol/L 10/18/2024 11:06 PM EDT [facility] Lab Comment LEFT RADIAL POSITIVE COLLATERAL No comment 10/18/2024 11:06 PM EDT [facility] Lab 10/18/2024 11:0 2 PM EDT 10/18/2024 11:05 PM EDT us Hadley Johnson MD POCT ORDERABLES - DEVICE Final Result [facility],PULMONARY LAB [address] [place] [address], [facility],Pulmonary Lab [address] [place], [place] * (ABNORMAL) POCT, Hematocrit (10/18/2024 11:02 PM EDT) Hematocrit 25.0(L) 40 - 50 % 10/18/2024 11:06 PM EDT [facility] Lab Comment LEFT RADIAL POSITIVE COLLATERAL 10/18/2024 11:06 PM EDT [facility] Lab 10/18/2024 11:0 2 PM EDT 10/18/2024 11:05 PM EDT us Hadley Johnson MD POCT ORDERABLES - DEVICE Final Result [facility],PULMONARY LAB [address] [place] [address], [facility],Pulmonary Lab [address] [place], [place] * (ABNORMAL) POCT, Glucose (10/18/2024 11:02 PM EDT) Glucose POC 206(H) 70 - 108 mg/dL 10/18/2024 11:06 PM EDT [facility] Lab Comment LEFT RADIAL POSITIVE COLLATERAL No comment 10/18/2024 11:06 PM EDT [facility] Lab 10/18/2024 11:0 2 PM EDT 10/18/2024 11:05 PM EDT us Hadley Johnson MD POCT ORDERABLES - DEVICE Final Result [facility],PULMONARY LAB [address] [place] [address], [facility],Pulmonary Lab [address] [place], [place] * POCT, Cooximetry (10/18/2024 11:02 PM EDT) Carboxyhemoglobin 0.0 % 025 11:06 PM EDT [facility]ul[facility]ary Lab Methemoglobin 0.7 % 10/18/2024 11:06 PM EDT [facility]ul[facility]ary Lab Oxyhemoglobin, POC 94.8000 % 2024 11:06 PM EDT [facility]ul[facility] Lab Reduced Hemoglobin 4.5 % 2024 11:06 PM EDT [facility]ul[facility] Lab Hemoglobin, POC 8.4 11:06 PM EDT [facility] Lab POC Sample Type Arterial 11:06 PM EDT [facility] Lab Comment LEFT RADIAL POSITIVE COLLATERAL 10/18/2024 11:06 PM EDT [facility] Lab 10/18/2024 11:0 2 PM EDT 10/18/2024 11:05 PM EDT Hadley Johnson MD POCT ORDERABLES - DEVICE Final Result [facility],PULMONARY LAB [address] [place] [address], [facility],Pulmonary Lab [address] [place], [place] * (ABNORMAL) Urinalysis with Reflex to Microscopic and Culture (10/18/2024 5:26 PM EDT) Color Yellow 10/18/2024 9:[address] [facility] Clarity Clear 10/18/2024 9:[address] [facility] Specific [place] 1.016 1.003 - 1.030 10/18/2024 9:15 PM [...] MICROBIOLOGY - GENERAL ORDERABL ES Final Result [facility] [address] [place] [address], * Legionella & Streptococcus Pneumoniae Antigen, Urine (10/18/2024 5:26 PM EDT) Pathologist [facility] Legionella Antigen EIA, Urine Presumptive Negative Presumptive Negative 10/19/2024 8:59 AM EDT [facility] Comment: Presumptive Negative for [...] Negative Presumptive Negative 10/19/2024 8:59 AM EDT [facility] Comment:Presumptive Negative for Pneumococcal Pneumonia, suggesting no recent or current Pneumococcal Infection. Infection due to S.pneumoniae cannot be ruled out since the antigen level present in the specimen may be below the detection limit of the test. Urine Urine specimen / Unknown 10/18/2024 5:26 PM EDT 10/18/2024 8:57 PM EDT us Hadley Johnson MD URINE ORDERABLES Final Result [facility] [address] [place] [address], [place] * Protein/Creatinine Ratio Panel, Urine (10/18/2024 [...] URINE ORDERABLES Final Result Performing Organization Address [facility] Co de Phone Number [facility] [address] [place] [address], [place] * CT Chest/abdomen+pelvis w/o contrast (10/18/2024 [...] FILMS Final Resu lt Performing Organization Address [facility] Co de Phone Number NIMESH [phone] * (ABNORMAL) PTH, Intact (10/18/2024 3:00 PM EDT) Pathologist [facility] PTH, Intact 755(H) 18 - 80 pg/mL 10/18/2024 4:[address] [facility] Blood Blood specimen / Unknown 10/18/2024 3:00 PM EDT 10/18/2024 3:39 PM EDT us Hadley Johnson MD LAB BLOOD ORDERABLES Final Resu lt Performing Organization Address [facility] [place] [address], * Nasal MRSA Screen, PCR (10/18/2024 2:45 PM EDT) [facility] MRSA Result Not Detected Not Detected 4:[address] [facility] Swab, Anterior Nares Specimen from nose / Unknown 10/18/2024 2:45 PM EDT 10/18/2024 2:58 PM EDT us Hadley Johnson MD MICROBIOLOGY - GENERAL ORDERABL ES Final Result Performing Organization Address [facility] [place] [address], * Lactic Acid, Plasma (STAT) (10/18/2024 1:43 PM EDT) Lactic Acid 1.2 0.5 - 1.9 mmol/L 10/18/2024 2:[address] [facility] Blood Blood specimen / Unknown 10/18/2024 1:43 PM EDT 10/18/2024 1:49 PM EDT us Hadley Johnson MD LAB BLOOD ORDERABLES Final Resu lt [facility] [address] [place] [address], [place] * Blood Culture (10/18/2024 12:11 PM EDT) Only the most recent of2 resultswithin the time period is included. Culture Sterile after 5 days 10/23/2024 7:06 AM EDT [facility] Blood Blood specimen / Unknown 10/18/2024 12:11 PM EDT 10/18/2024 12:42 PM EDT Comment:Blood us Hadley Johnson MD LAB BLOOD ORDERABLES Final Resu lt [facility] [address] [place] [address], * (ABNORMAL) B-Hydroxybutyrate (10/18/2024 12:09 PM EDT) [...] PM EDT 10/18/2024 12:44 PM EDT us Hadley Johnson MD LAB BLOOD ORDERABLES Final Resu lt [facility] [address] [place] [address], from Last 3 Months Insurance [employer] MEDICARE Advance Directives * Full Code (Latest Code Status on File) Date Activated Date Inactivated Comments 10/18/2024 11:07 AM
--- OUTSIDE RECORDS SUMMARY | 2024-11-17 13:57 | XMS_ITS | Encounter Summary ---
Author Organization [facility] Address [address] [place] [address] Phone Care Team Providers Care Wire Basket Maker Name Role Phone Joanna [place] MD Primary Care Provider [phone] Reason for Visit * Reason Comments Med Refill Encounter Details Date Type Department Care Team ([facility] st Contact Info) Description 06/09/2023 Refill [facility] [address] [place] [address] Ahmet Oviedo MD [address] [facility] [address] [place] [address] Social History Tobacco Use Types [...] on filedocumented in this encounter Care Teams Wire Basket Maker Relationship Specialty Start Date End Date Joanna [place] MD [address] [facility] [address] [place] [phone] PCP - General Family Medicine 02/17/23 documented as of this encounter
[2024-11-17 13:58] LABS: HBc Num1 3.85 S/CO (0.00-0.79); HBsAGNum1 0.32 S/CO (0.00-0.99); HIV AB/AG Nonreactive (Nonreactive); HIV Num 1 0.08 S/CO (0.00-0.99); Hepatitis B Surface Antigen Negative (Negative); ~HepC Num1 0.12 S/CO (0.00-0.79); ~Hepatitis C Antibody Nonreactive (Nonreactive)
[2024-11-17 14:04] LABS: Alanine Aminotransferase 36 U/L (0-40)
[2024-11-17 14:50] LABS: HBc Num3 3.78 S/CO; Hepatitis B Core Antibody Reactive (Nonreactive)
[2024-11-17 17:19] LABS: CT PCR NOT DETECTED (Not Detect.); NG PCR NOT DETECTED (Not Detect.)
[2024-11-18 06:39] LABS: Hepatitis B Core Antibody IgM NON-REACTIVE (NON-REACTIVE)
[2024-11-21 22:43] LABS: Treponema pallidum Ab FTA ABS Nonreactive (Nonreactive)
== END 2024-11-17 11:34 | disposition home or self-care (01) ==
LOC: HO.HMGCLDS 11:33
PROVIDERS: PCP Family Medicine; Visit Provider Family Medicine
DX: Z13.89 Encounter for screening for other disorder (principal)
CPT/HCPCS: 80053; 81001; 86704; 86705; 86780; 86803; 87340; 87389; 87491; 87591

== ENCOUNTER 2024-11-17 14:10 | Emergency (ER) | payer MEDICARE, SELFPAY ==
--- NOTE | ~2024-11-17 | CT_ITS ---
EXAMINATION: CT ABDOMEN AND PELVIS WITHOUT CONTRAST CLINICAL INFORMATION: Left flank pain radiating to left lower quadrant. COMPARISON: None available. TECHNIQUE: Multidetector volumetric imaging was performed from the superior aspect of the liver through the pubic symphysis. Sagittal and coronal reformatted images were obtained on the technologist's workstation. This CT examination was performed using dose optimization techniques as appropriate, variously including the following: *Automated exposure control *Adjustment of mA and/or kV according to patient size (this includes techniques or standardized protocols for targeted exams where dose is matched to indication/reason for exam; i.e. extremities or head) *Use of iterative reconstruction technique FINDINGS: LUNG BASES: Nodular stellate foci in the right middle lobe distribution, appearance most likely related to scarring. Mild subpleural atelectasis in both lower lobes. Normal heart size. No pericardial effusion. No pleural effusions. LIVER, GALLBLADDER, AND BILIARY TREE: Unenhanced liver demonstrates no definite focal suspicious abnormality. No intra or extrahepatic biliary dilatation. The gallbladder is unremarkable with no evidence of radiopaque gallstones, gallbladder wall thickening, or obvious pericholecystic inflammatory changes. Phrygian cap. PANCREAS: Moderate fatty atrophy. No suspicious abnormality. SPLEEN: Unremarkable. ADRENAL GLANDS: Unremarkable. KIDNEYS AND URETERS: There are bilateral renal cysts. There is no hydronephrosis, calculus, or mass of either kidney. The ureters are nondilated. BLADDER: Suboptimally distended. Mild wall thickening, possibly on the basis of poor distention. GASTROINTESTINAL TRACT: The stomach is decompressed. The duodenum, and small bowel appear normal in course and caliber. No wall thickening or inflammation. Normal appendix visualized. The colon demonstrates normal course, caliber, without wall thickening or inflammatory changes. No rectal abnormality. ABDOMINAL WALL: No significant hernia is appreciated. LYMPH NODES: Normal. VASCULAR: Moderate calcification of the aorta and iliac arteries without aneurysm. PELVIC VISCERA: Prostate measures approximately 4.8 cm in diameter. Normal seminal vesicles. Calcification of the vas deferens, likely related to diabetes. OSSEOUS STRUCTURES: No suspicious lytic or blastic bone lesion. There are degenerative changes throughout the spine. There are bilateral hip joint degenerative changes. CT/CT abdomen pelvis wo IV con IMPRESSION: 1. No acute findings in the abdomen or pelvis. 2. No urological calculus or evidence of obstruction. 3. There are bilateral renal cysts. 4. There are additional ancillary findings as discussed in the body of the report. Electronically signed by: Vahid Nathan MD 11/17/2024 03:53 PM EDT RP
--- NOTE | ~2024-11-17 | XR_ITS ---
EXAMINATION: XR CHEST CLINICAL INFORMATION: pedal edema COMPARISON: October 26, 2024 TECHNIQUE: 2 views of the chest were obtained. FINDINGS: Mild prominence of the interstitial markings. No consolidation, pleural fissure pneumothorax. No hyperinflation. Cardiomediastinal silhouette size is normal. Multilevel thoracic spondylosis. XR/XR chest 2V IMPRESSION: Resolved pulmonary edema. Electronically signed by: Farhad Saldaña MD 11/17/2024 03:17 PM EDT
[2024-11-17 14:23] VITALS: BP 135/76; PULSE 98; RESP 16; TEMP 36.7; O2SAT 97; BMI 27.5
--- NOTE | 2024-11-17 14:24 | ED_ITS ---
HPI - Abdominal Pain General Chief Complaint: Recheck/Abnormal Lab/Rx Stated Complaint: Kidney Pain Time Seen by Provider: 11/17/24 19:15 Source: patient History of Present Illness ED Provider: Javon MURGUIA narrative: 69-year-old male with history of CKD presenting for elevated creatinine. Patient had outpatient lab work done today and was instructed to come to the emergency department due to elevated creatinine. Patient states that this is being closely monitored by his material man Dr. Martínez with and we spoke with today. Dr. Martínez reportedly did not feel that patient required emergency department visit. Patient states that for the past few days he has been experiencing left lower quadrant abdominal pain however that has since resolved. He denies nausea, vomiting, diarrhea, urinary symptoms. Related Data Home Medications ?Medication ?Instructions ?Recorded ?Confirmed allopurinol 100 mg tablet 100 mg PO DAILY 09/23/23 08/09/24 insulin degludec 100 unit/mL (3 unit subcut 09/23/23 08/09/24 mL) subcutaneous pen (Tresiba FlexTouch U-100 insulin) temazepam 15 mg capsule 15 mg PO BEDTIME PRN 09/23/23 08/09/24 atorvastatin 40 mg tablet mg PO DAILY 09/15/24 amlodipine 10 mg tablet 10 mg PO DAILY 10/26/24 sevelamer carbonate 0.8 gram oral 0.8 g PO TID 10/26/24 powder packet sodium bicarbonate 650 mg tablet 1,300 mg PO BID for indigestion 10/26/24 calcitriol 0.25 mcg capsule 0.25 mcg PO 3XW 11/09/24 cholecalciferol (vitamin D3) 1,250 1,250 mcg PO .monthly 11/09/24 mcg (50,000 unit) capsule cyanocobalamin (vitamin B-12) 1,000 mcg PO DAILY 11/09/24 1,000 mcg tablet fexofenadine 60 mg tablet 60 mg PO DAILY 11/09/24 insulin lispro 100 unit/mL 1 sliding scale dose subcut 11/09/24 subcutaneous pen (Humalog KwikPen USEASDIRECTD (U-100) Insulin) magnesium oxide 400 mg PO DAILY 11/09/24 Previous Rx's ?Medication ?Instructions ?Recorded alprazolam 0.25 mg tablet 0.25 mg PO BID #10 tabs 10/24/24 furosemide 40 mg tablet (Lasix) 40 mg PO BID #60 tabs 10/26/24 Allergies Allergy/AdvReac Type Severity Reaction Status Date / Time No Known Allergies Allergy Verified 11/17/24 14:28 Review of Systems Review of Systems Yes all other systems are reviewed and are negative [facility] Past Medical History Medical History Proteinuria Type 2 diabetes mellitus with diabetic nephropathy Hypertension Acute kidney injury Social History Social History Advance Directives: No Advance Directives Information Provided: Yes Do you have a plan to hurt others: No Plan Physical Exam ED Vital Signs: Vital Signs - 24 hr 11/17/24 14:23 11/17/24 19:12 Temperature 98.0 F 98.5 F Pulse Rate 98 90 Respiratory Rate 16 16 Blood Pressure 135/76 148/71 H Pulse Oximetry 97 96 Oxygen Delivery Method Room Air Room Air BMI result Body Mass Index 27.5 Well-appearing male in no acute distress Normal speech and cognition Head normocephalic and atraumatic Unlabored breathing with clear lung wells Normal S1-S2 regular rate and rhythm Abdomen is soft nontender nondistended Course Course Course Narrative: This is a Rapid Medical Exam performed in triage by Ginny Canseco PA-C. Full HPI, ROS and PE to be performed by primary ED provider. 69 yo M w/PMHx CKD - diabetic nephropathy (Dr. Crisostomo pt), DM, HTN, presenting to the ED c/o L flank pain radiating to LLQ & b/l LE edema x few days. Denies hematuria/dysuria, nausea/vomiting, SOB PE: +L CVAT, abdomen soft with mild left lower quadrant tenderness, no rebound or guarding Plan: EKG, labs, UA, CXR, CT Medical Decision Making Medical Decision Making MDM Narrative: 69-year-old male presenting for elevated creatinine -I suspect this is sequelae of patient's underlying CKD however I am also considering acute on chronic kidney injury, electrolyte/metabolic disturbance, nephrolithiasis, UTI -labs and imaging studies ordered My independent lab and imaging interpretation: -stable H&H, no white count, no acute rise in creatinine -low magnesium -clean UA -no obvious stone on CT and radiology impression reads no acute findings in the abdomen or pelvis While patient is has elevated creatinine this is not newly elevated. I do not think that he is experiencing an acute BENJAMIN. His magnesium was replenished. Do not think that patient needs admission I called patient's Account Leader office and spoke with on-call provider who agreed with discharge and outpatient follow up Patient discharged and instructed to follow up with his material man Lab Data 11/17/24 15:23 11/17/24 15:23 Labs: Lab Results 11/17/24 Range/Units 15:23 WBC 5.4 (4.8-10.8) X10*3/uL RBC 3.04 L (4.60-5.80) X10*6/uL Hgb 9.1 L (14.0-18.0) g/dl Hct 28.5 L (42.0-52.0) % MCV 93.8 (80.0-98.0) fL MCH 29.9 (27.0-33.0) pg MCHC 31.9 (31.0-36.0) g/dl RDW 14.9 (11.0-16.0) % Plt Count 231 (160-400) X10*3/uL MPV 10.3 (9.4-12.4) fL Immature Gran % (Auto) 0.9 H (0.0-0.4) % Neut % (Auto) 49.8 (45-73) % Lymph % (Auto) 26.4 (20-40) % [place] % (Auto) 14.6 H (2-11) % Eos % (Auto) 7.7 H (0-4) % Baso % (Auto) 0.6 (0-2) % Lymph # (Auto) 1.4 (1.2-4.9) X10*3/uL [place] # (Auto) 0.8 (0.1-1.2) X10*3/uL Eos # (Auto) 0.4 (0.0-0.4) X10*3/uL Baso # (Auto) 0.0 (0.0-0.2) X10*3/uL Abs Immat Gran (auto) 0.05 H (0.00-0.03) X10*3/uL Absolute Neuts (auto) 2.7 (2.0-8.3) x10*3/uL Absolute Nucleated RBC 0.000 (0.0-0.012) X10*3/uL Nucleated RBC % (auto) 0.0 (0.0-0.2) /100WBC Sodium 139 (135-145) mmol/L Potassium 4.8 (3.3-5.1) mmol/L Chloride 109 H (96-108) mmol/L Carbon Dioxide 22 (22-29) mmol/L Anion Gap 13 (12-20) BUN 47 H (9-16) mg/dL Creatinine 4.63 H* (0.5-1.4) mg/dL Estim Creat Clear Calc 15.5 Estimated GFR 13 Random Glucose 129 H (60-115) mg/dL Calcium 8.7 (8.4-10.2) mg/dL Magnesium 1.2 L* (1.6-2.6) mg/dL Total Bilirubin 0.4 (0.0-1.0) mg/dL Direct Bilirubin 0.1 (0.0-0.5) mg/dL AST 28 (5-37) U/L ALT 36 (0-40) U/L Alkaline Phosphatase 339 H (39-117) U/L B-Natriuretic Peptide 76 (<100) pg/mL Total Protein 6.9 (6.5-8.0) g/dL Albumin 3.5 (3.5-5.0) g/dL Lipase 34 (8-78) U/L Discharge Plan Discharge Clinical Impression: Elevated serum creatinine Patient Disposition: Home, Self-Care Additional Instructions: Please follow up with Dr. Chris Martínez in 24-48hours. If you develop any new or worsening symptoms please return to the emergency department Prescriptions: No Action alprazolam 0.25 mg tablet 0.25 mg PO BID Qty: 10 0RF sevelamer carbonate 0.8 gram powder in packet 0.8 g PO TID Rx Instructions: must administer with a meal/food sodium bicarbonate 650 mg tablet 1,300 mg PO BID amlodipine 10 mg tablet 10 mg PO DAILY furosemide [Lasix] 40 mg tablet 40 mg PO BID Qty: 60 3RF temazepam 15 mg capsule 15 mg PO BEDTIME PRN insulin degludec [Tresiba FlexTouch U-100] 100 unit/mL (3 mL) insulin pen subcut allopurinol 100 mg tablet 100 mg PO DAILY atorvastatin 40 mg tablet PO DAILY calcitriol 0.25 mcg capsule 0.25 mcg PO 3XW Rx Instructions: administer after dialysis on dialysis days cholecalciferol (vitamin D3) 1,250 mcg (50,000 unit) capsule 1,250 mcg PO .monthly cyanocobalamin (vitamin B-12) 1,000 mcg tablet 1,000 mcg PO DAILY fexofenadine 60 mg tablet 60 mg PO DAILY insulin lispro [Humalog KwikPen Insulin] 100 unit/mL insulin pen 1 sliding scale dose subcut USEASDIRECTD magnesium oxide 400 mg magnesium tablet 400 mg PO DAILY Print Language: Albanian
[2024-11-17 15:40] LABS: MANUAL DIFF FLAG NO
[2024-11-17 15:43] LABS: Basophils Percent Auto 0.6 % (0-2); Eosinophils Absolute Auto 0.4 X10*3/uL (0.0-0.4); Eosinophils Percent Auto 7.7 % (0-4); Hematocrit 28.5 % (42.0-52.0); Hemoglobin 9.1 g/dl (14.0-18.0); Imm Gran Abs Auto 0.05 X10*3/uL (0.00-0.03); Imm Gran Pct Auto 0.9 % (0.0-0.4); Lymphocytes Absolute Auto 1.4 X10*3/uL (1.2-4.9); Lymphocytes Percent Auto 26.4 % (20-40); Mean Corpuscular HGB Conc 31.9 g/dl (31.0-36.0); Mean Corpuscular Hemoglobin 29.9 pg (27.0-33.0); Mean Corpuscular Volume 93.8 fL (80.0-98.0); Mean Platelet Volume 10.3 fL (9.4-12.4); Monocytes Absolute Auto 0.8 X10*3/uL (0.1-1.2); Monocytes Percent Auto 14.6 % (2-11); Neutrophils Absolute Auto 2.7 x10*3/uL (2.0-8.3); Neutrophils Percent Auto 49.8 % (45-73); Platelet Count 231 X10*3/uL (160-400); Red Blood Count 3.04 X10*6/uL (4.60-5.80); Red Cell Distribution Width 14.9 % (11.0-16.0); White Blood Count 5.4 X10*3/uL (4.8-10.8)
[2024-11-17 16:02] LABS: B Type Natriuretic Peptide 76 pg/mL (<100)
[2024-11-17 16:09] LABS: Alanine Aminotransferase 36 U/L (0-40); Albumin Level 3.5 g/dL (3.5-5.0); Alkaline Phosphatase 339 U/L (39-117); Anion Gap 13 (12-20); Aspartate Amino Transferase 28 U/L (5-37); Bilirubin Direct 0.1 mg/dL (0.0-0.5); Bilirubin Total 0.4 mg/dL (0.0-1.0); Blood Urea Nitrogen 47 mg/dL (9-16); Calcium 8.7 mg/dL (8.4-10.2); Carbon Dioxide 22 mmol/L (22-29); Chloride 109 mmol/L (96-108); Creatinine Clr Calc Pharmacy 15.5; Estimated Glomerular Filt Rate 13; Glucose Random 129 mg/dL (60-115); Lipase 34 U/L (8-78); Magnesium 1.2 mg/dL (1.6-2.6); Potassium 4.8 mmol/L (3.3-5.1); Sodium 139 mmol/L (135-145); Total Protein 6.9 g/dL (6.5-8.0)
--- OUTSIDE RECORDS SUMMARY | 2024-11-17 18:48 | XMS_ITS | Clinical Summary ---
Author Organization [facility] Address [address] [facility] [address] [place] [address] Phone Care Team Providers Care Development Mgr Name Role Phone Joanna Angeles MD Primary Care Provider [phone] Allergies Active Allergy Reactions Criticality Noted Date [...] A1c (%). Testing performed or reported by ~[facility], ~a Service of [facility], ~[address] [place] [id number]~ 03/21/2019 2:49 PM EDT us Chris Martínez MD LAB BLOOD ORDERABLES Final Resul t [facility] 3 from Last 3 Months or Most Recently Relevant to Health Maintenance Insurance [facility] Medicare [facility] Medicare Care Teams Development Mgr Relationship Specialty Start Date End Date Joanna Angeles MD [address] [phone] PCP - General Family Medicine 02/17/23
--- OUTSIDE RECORDS SUMMARY | 2024-11-17 18:48 | XMS_ITS | Encounter Summary ---
Author Organization [facility] Address [address] [place] [address] Phone Care Team Providers Care Chargeback Analyst Name Role Phone Joanna Angeles MD Primary Care Provider [phone] Reason for Visit * Reason Comments Med Refill Encounter Details Date Type Department Care Team ([facility] st Contact Info) Description 06/09/2023 Refill [facility] [address] [place] [address] Ahmet Oviedo MD [address] [facility] [address] [place] [address] Social History Tobacco Use Types [...] on filedocumented in this encounter Care Teams Chargeback Analyst Relationship Specialty Start Date End Date Joanna Angeles MD [address] [facility] [address] [place] [id number] PCP - General Family Medicine 02/17/23 documented as of this encounter
--- OUTSIDE RECORDS SUMMARY | 2024-11-17 18:48 | XMS_ITS | Clinical Summary ---
Author Organization [facility] Address [address] [place] [address] Care Team Providers Care Electrical Appliance Mechanic Name Role Phone Unavailable Primary Care Provider [...] Documents on File Type Date Recorded Patient Heel Packer Expl anation Health Care Decision (hx) 02/27/2023 HE ALTH CARE PROXY Health Care Decision (hx) 02/27/2023 HE ALTH CARE PROXY Health Care Decision (hx) 02/27/2023 HE ALTH CARE PROXY
--- OUTSIDE RECORDS SUMMARY | 2024-11-17 18:48 | XMS_ITS | Continuity of Care Document ---
Author Organization [facility], Main Office Address [address] [place] [address] Care Team Providers Care Civil Attorney Name Role Phone [facility] JESUS RUBIO Phys. Med. 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 His recent fever and upper respiratory symptoms [...] Lab BMP, serum or plasma 2024 025 [facility], [address] [place] [address], [id number], 11/14/2024 09:34:50 urinalysi s complete, reflex culture 2024 025 [facility], [address] [place] [address], [id number], 11/14/2024 09:34:50 Hepatitis C IgG Ab, qual, serum 2024 025 [facility], [address] [place] [address], [id number], 11/14/2024 09:34:50 HBsAg (hepatiti s B surface Ag), EIA, serum 2024 025 [facility], [address] [place] [address], [id number], 11/14/2024 09:34:50 HIV 1 + 2, meaningfu l use set 2024 025 [facility], [address] [place] [address], [id number], 11/14/2024 09:34:50 treponema pallidum IgG + IgM Ab, QL, IA, serum 2024 025 [facility], [address] [place] [address], [id number], 11/14/2024 09:34:50 CT + NG RNA, PCR, unspecifi ed specimen 2024 025 [facility], [address] [place] [address], [id number], 11/14/2024 09:34:50 hepatitis B core IgM Ab, qual, serum or plasma 2024 025 [facility], [address] [place] [address], [id number], 11/14/2024 09:34:50 Referral None recorded. Procedures None recorded. Surgeries None recorded. Imaging CT, abdomen + pelvis, w/o contrast 2024 025 [facility] (Imaging), [address] [place] [address], [id number], 11/17/2024 15:57:36 Medication Orders None recorded. Patient TargetsNo targets recorded. Patient Instructions Encounter Date Encounter Id Patient Instructions Last Modified By Organization Details Last Modified Time 11/14/2024 [id number] learning about fever [facility] Not available 11/14/2024 10:32:51 At [facility] follow up visit, all current and discharge medications (OTC, herbal therapies, supplements) reviewed and reconciled with patient and or caregiver, including potential side effects, drug interactions, instructions, and the consequences of not taking medication. Reviewed potential barriers to medication adherence, such as side effects from medication or cost of medication. [email or web address] Not available 11/14/2024 08:34:10 Reason for Referral None Reported. Results Created Date Observation Date Name Description Value Unit Range Abnormal Flag Note LastModifiedBy Organization Detail LastModifiedTime 10/27/1910/26/2024 XR, chest , 2 view No observ ation [facility] ed[facility] [address] [place] [address], [id number], 11/02/2024 10:41:05 11/18/19 25 11/17/2024 imagi ng/di agnos tic resul t No observ ation record ed. [facility] (Medical Records) [address], [place], [address], 11/17/2024 15:20:58 11/18/19 25 11/17/2024 CT, abdom en + pelvi s, w/o contr ast No observ ation record ed. [facility] (Medical Records) [address], [place], [address], 11/17/2024 15:57:36 Result Notes None recorded. Problems Name Problem SNOMED Code Status Onset Date Resolution Date Notes Provider Name and Address Organization Details Recorded Time Counseli ng Completed 201102/07/2014 RECORDED 07/23/20 12 1:53PM BY IQRA AUSTIN MA, ANNOTATI ON/ADDEN DUM Leigh Ann Quinteros PA-C [address] [facility] [address], [place], [address] , [facility] 6 14:37:53 Type 2 diabetes mellitus without complica tion 493966132 Completed 201202/07/2014 RECORDED 04/14/20 13 3:34PM BY IQRA AUSTIN MA, ANNOTATI ON/ADDEN DUM Leigh Ann Quinteros PA-C [address], [place], [address] , [facility] [place] 6 14:37:53 Malaise and fatigue 964073238 Completed 201102/07/2014 RECORDED 04/28/20 12 9:25AM BY LIBBY STEPHEN MA, ANNOTATI ON/ADDEN DUM Leigh Ann BEEBEC [address], [place], [address] , [facility] 6 14:37:53 Influenz a vaccine needed 18983056619 06 Completed 201202/07/2014 RECORDED 04/14/20 13 3:41PM BY IQRA AUSTIN MA, OFFICE VISIT Leigh Ann Quinteros PA-C [address], [place], [address] , [facility] 6 14:37:53 Gout 77893476 Active 2013 LUIS Ferrari, [facility] 4 15:12:02 Hyperlip idemia 75929632 Active 2013 LUIS Ferrari, [facility] 4 15:12:02 Chronic kidney disease stage 1 854827301 Completed 201312/15/2016 STORY: ELEVATED MICROALB UMIN; RECORDED 01/19/20 14 2:14PM BY IQRA AUSTIN MA, OFFICE VISIT Leigh Ann Quinteros PA-C [address], [place], [address] , [facility] 7 14:56:27 Displace ment of lumbar interver tebral disc without myelopat hy 56905933 Active 2013 SEES PSSP LUIS Ferrari, [facility] 4 15:12:01 Proteinu nazia 48682817 Active 2013 LUIS Ferrari, [facility] 4 15:12:02 Obesity 622476153 Active 2013 LUIS Ferrari, [facility] 4 15:12:02 Infectiv e otitis externa 98061580 Completed 201102/07/2014 RECORDED 07/23/20 12 1:53PM BY IQRA AUSTIN MA, ANNOTATI ON/ADDEN DUM Leigh Ann Quinteros PA-C [address], [place], [address] , [facility] 6 14:37:53 Active or passive immuniza tion Completed 201102/07/2014 RECORDED 07/23/20 12 2:00PM BY IQRA AUSTIN MA, OFFICE VISIT Leigh Ann Quinteros PA-C [address], [place], [address] , [facility] [place] 6 14:37:53 Administ ration of diphther ia and tetanus vaccine Completed 201202/07/2014 RECORDED 11/23/19 13 2:44PM BY IQRA AUSTIN MA, ANNOTATI ON/ADDEN DUM Leigh Annmitesh Quinteros PA-C [address], [place], [address] , [facility] [place] 6 14:37:53 Urolith Active 2013 HAS SEEN UROLOGY LUIS Ferrari, [facility] 4 15:12:02 Scrotal varices Active 2013 LUIS Ferrari, [facility] 4 15:12:02 Adult health examinat ion Completed 201303/06/2014 RECORDED 01/19/20 14 2:13PM BY IQRA AUSTIN MA, ANNOTATI ON/ADDEN DUM Leigh Ann Quinteros PA-C [address], [place], [address] , [facility] [place] 6 14:37:53 Counseli ng Completed 201103/06/2014 RECORDED 07/23/20 12 1:53PM BY IQRA AUSTIN MA, ANNOTATI ON/ADDEN DUM Leigh Annphill Quinteros PA-C [address], [place], [address] , [facility] [place] 6 14:37:53 Type 2 diabetes mellitus without complica tion 695127003 Completed 201203/06/2014 RECORDED 04/14/20 13 3:34PM BY IQRA AUSTIN MA, ANNOTATI ON/ADDEN DUM Leigh Ann Quinteros PA-C [address], [place], [address] , [facility] 6 14:37:53 Malaise and fatigue 398553232 Completed 201103/06/2014 RECORDED 04/28/20 12 9:25AM BY LIBBY STEPHEN MA, ANNOTATI ON/ADDEN DUM Leigh Ann Quinteros GA-C [address], [place], [address] , [facility] 6 14:37:53 Influenz a vaccine needed 09173113358 06 Completed 201203/06/2014 RECORDED 04/14/20 13 3:41PM BY IQRA AUSTIN MA, OFFICE VISIT Leigh Ann Quinteros PA-C [address], [place], [address] , [facility] 6 14:37:53 Insomnia 664093148 Active 2013 Elena Mata MA [facility], [facility] 4 15:12:01 Infectiv e otitis externa 54096437 Completed 201103/06/2014 RECORDED 07/23/20 12 1:53PM BY IQRA AUSTIN MA, ANNOTATI ON/ADDEN DUM Leigh Annmitesh Quinteros PA-C [address], [place], [address] , [facility] 6 14:37:53 Active or passive immuniza tion Completed 201103/06/2014 RECORDED 07/23/20 12 2:00PM BY IQRA AUSTIN MA, OFFICE VISIT Leigh Ann Quinteros PA-C [address], [place], [address] , [facility] 6 14:37:53 Administ ration of diphther ia and tetanus vaccine Completed 201203/06/2014 RECORDED 11/23/19 13 2:44PM BY IQRA AUSTIN MA, ANNOTATI ON/ADDEN DUM Leigh Ann Quinteros PA-C [address], [place], [address] , [facility] 6 14:37:53 Otitis media 85453946 Completed 01/15/2017 LUIS Ward, [facility] 7 14:00:47 Disorder of cellular componen t of blood 745768446 Completed 201308/20/2024 Joanna De MD [address], [place], [address] , [facility] 5 22:35:18 Uncontro lled type 2 diabetes mellitus 278015117 Completed 201301/05/2017 RECORDED 01/21/20 14 11:18AM BY VIANCA SENA, HISTORIC AL SUMMARY Leigh Ann Quinteros PA-C [address], [place], [address] , [facility] 7 12:05:05 Renal disorder due to type 2 diabetes mellitus 096502839 Active 2020 Not Available [facility] 4 18:06:38 Otitis externa 0546945 Completed 01/15/2017 LUIS Ward, [facility] 7 14:00:31 Body mass index 30+ - obesity 817737092 Completed 05/13/2017 Leigh Ann Quinteros PA-C [address], [place], [address] , [facility] 7 17:10:10 Type 2 diabetes mellitus 18271704 Completed 01/05/2017 Leigh Ann Quinteros PA-C [address], [place], [address] , [facility] 7 12:04:58 Tachycar jimi 6930660 Completed 08/17/2023 Joanna De MD [address] [facility] [address], [place], [address] , [facility] 4 16:02:45 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 19559330 Active LUIS Ferrari, [facility] 4 15:12:02 Primary erectile dysfunct ion 889828158 Active LUIS Ferrari, [facility] 4 15:12:02 Hyperkal emia 67819030 Completed 202008/23/2023 Joanna De MD [address], [place], [address] , [facility] 4 13:51:59 Chronic kidney disease stage 3 967114401 Completed 11/24/2023 Joanna De MD [address], [place], [address] , [facility] 4 19:07:37 Noncompl iance with therapeu tic regimen 170717856 Active 2017 LUIS Ferrari [facility] 4 15:12:01 Diabetic on insulin 566216787 Active 2017 LUIS Ferrari [facility] 4 15:12:01 Poor short-te rm memory 115956700 Active 2019 LUIS Ferrari, [facility] 4 15:12:02 Hyperten sive renal disease 20187787 Active 2019 DX: I12.9 Not Available [facility] 4 18:06:38 Iliopsoa s bursitis of right hip 85090790165 93799 Completed 202008/17/2023 Joanna De MD [address], [place], [address] , [facility] 4 15:47:00 Hypomagn esemia 075750672 Active 2020 Not Available [facility] 4 18:06:37 Acute kidney injury 35481583 Completed 202008/15/2023 Joanna De MD [address], [place], [address] , [facility] 4 15:46:57 Hyperten kiko monitori ng status 941927933 Active 2023 dis-enro ll Tasia Gideon null, [facility] 4 09:51:37 Chronic kidney disease stage 4 419587710 Active 2023 Joanna De MD [address], [place], [address] , [facility] 4 19:07:44 Hyperpar athyroid ism due to renal insuffic iency 37955664 Active 2023 Joanna De MD [address], [place], [address] , [facility] 4 07:19:59 Heart failure 52014860 Active 2024 Lorenzo Quinteros PA-C [address], [place], [address] , [facility] 5 09:19:32 Problem Notes None recorded. Procedures Surgical History Date Name Laterality Status Provider Name and Address Organization Details Recorded Time 08/22/19 25 Advanced Care Planning completed Joanna De MD [address] [facility], [place], [address], [facility] 08/20/2024 22:29:02 08/17/19 24 Advanced Care Planning completed Joanna De MD [address], [place], [address], [facility] 08/15/2023 15:44:21 05/04/20 23 removal of catheter completed Yesi Farris [facility] 05/06/2023 13:15:36 04/10/20 23 Diabetic Foot Exam (Monofilament) completed Joanna De MD [address], [address], [facility] 04/10/2023 13:37:37 03/26/20 23 retrograde pyelogram completed Yesi Farris [facility] 03/27/2023 09:26:09 03/26/20 23 ureteric lithotripsy completed Yesi Farris [facility] 03/27/2023 09:26:39 03/26/20 23 insertion of stent into ureter completed Yesi aFrris [facility] 03/27/2023 09:26:57 07/15/20 22 Advanced Care Planning completed Felicita Cai [facility] 07/17/2022 13:15:29 03/17/20 22 Diabetic Foot Exam (Monofilament) completed Joanna De MD [address], [address], [facility] 03/17/2022 15:17:06 06/18/20 21 Advanced Care Planning completed Joanna De MD [address], [address], [facility] 06/18/2021 08:50:42 06/18/20 21 Diabetic Foot Exam (Monofilament) completed Joanna De MD [address], [address], [facility] 06/18/2021 18:56:54 06/04/20 20 Six-Item Cognitive Test completed Iqra badillo MA [facility] 06/04/2020 15:16:46 09/15/19 20 Colonoscopy completed Iqra badillo MA [facility] 06/04/2020 15:14:36 04/15/20 19 Mini-Cog Test completed Iqra badillo MA [facility] 04/15/2019 15:42:06 09/20/19 19 Diabetic Foot Exam (Monofilament) completed Celia Ortiz MA [facility] 09/20/2018 14:36:35 04/16/20 18 Diabetic Foot Exam (Monofilament) completed Clemencia Lindsey MA [facility] 04/16/2018 14:44:34 03/05/20 18 Diabetic Foot Exam (Monofilament) completed Clemencia Lindsey MA [facility] 03/05/2018 12:51:44 01/27/20 18 Diabetic Foot Exam (Monofilament) completed Clemencia Lindsey MA [facility] 01/26/2018 09:37:53 12/09/19 18 Diabetic Foot Exam (Monofilament) completed Dottie Moe MA [facility] 12/08/2017 15:02:35 07/27/18 58 tonsillectomy completed Hadley Main MA [facility] 07/15/2022 14:41:22 Imaging Results None recorded. Procedure Notes None recorded. Medical Equipment None Reported. Allergies Allergen ID Allergen Name Allergen Category Reaction Reaction Severity Criticality Documentation Date Start Date Code Code System Note Provider Name and Address Organization Details Recorded Time 49340 Victoza medicatio n abdominal pain Not available Not available 04/16/2018 37565 3 RxNorm Leigh Ann Aldair PELAEZ [address], [place], [address], [facility] 8 15:07:08 55825 liragluti de medicatio n other Not available Not available 05/20/20212020 72606 8 RxNorm Leisa Melvin lucia [facility] 1 10:45:47 14685 Product containin g angiotens in-conver ting enzyme inhibitor (product) medicatio n Not available Not available low 11/24/2023 09458 009 SNOMED See renal note Joanna De MD [address], [place], [address], [facility] 4 19:07:27 Medications Name Sig Start Date [...] BEDTIME active RECORDED 01/19/20 14 2:11PM BY IQRA AUSTIN MA, OFFICE VISIT;PS SP Not Available [...] t Available Unifine Pentips 31 gauge x 10/09 needle INJECT DIRECTED ONCE A DAY 2018 [...] Ultra-Fin e 1 mL 31 gauge x 16 01/15 completed Not Available Not Available Not Available Harishujatindero SoloStar U-300 Insulin 300 unit/mL (1.5 mL) [...] Not Available Not Available Not Available FreeStyle Miley 3 Plus Sensor device active Not Available Not Available Not Available Vitals Date Recorded Body height Body mass index (BMI) Body weight Heart rate Oxygen saturation Oxygen saturation in Arterial blood by Pulse oximetry Body temperature Systolic blood pressure Diastolic blood pressure Provider Name and Address Organization Details Last Updated DateTime 5 177.8 cm 30 kg/m2 83404.8 1 g 92 /min 96 % 96 % 98.1 [degF] 120 mm[Hg] 63 mm[Hg] Azra Torres MA [facility] 5 08:31:24 Social History Question Answer Notes LastModified by Organizat ion Details LastModified Time Tobacco Smoking Status Never Smoker La Nena lucia [facility] 03/30/2014 15:10:37 Do You Have An Advance [...] not available 06/04/2020 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 not available 06/26/2014 Live Alone [...] Immunizations Vaccine Type Date Status Note Provider Syed hong and Address Organization Details Recorded Time Pneumococcal conjugate PCV 13 7 completed LUIS Hanks [facility] 03/05/2018 13:04:15 zoster live 7 completed Not Available [facility] 08/15/2023 18:06:39 zoster live 5 completed LUIS Hanks [facility] 03/05/2018 13:05:03 [facility] live 7 [facility] 15:12:09 COVID-19, mRNA, LNP-S, PF, 100 mcg/0.5mL dose or 50 mcg/0.25mL dose 1 completed LUIS Ferrari, [facility] 08/17/2023 15:12:08 COVID-19, mRNA, LNP-S, PF, 100 mcg/0.5mL dose or 50 mcg/0.25mL dose 1 completed LUIS Ferrari [facility] 08/17/2023 15:12:08 COVID-19, mRNA, LNP-S, PF, 100 mcg/0.5mL dose or 50 mcg/0.25mL dose 1 [facility] 15:12:08 pneumococcal polysaccharide PPV23 9 [facility] 15:12:08 Influenza, split virus, quadrivalent, PF 5 completed LUIS Ferrari [facility] 08/17/2023 15:12:09 Pneumococcal conjugate PCV 13 8 [facility] 15:12:08 Influenza, split virus, trivalent, PF 4 completed LUIS Ferrari [facility] 08/17/2023 15:12:09 Influenza, high-dose, quadrivalent, PF 1 completed LUIS Ferrari [facility] 08/17/2023 15:12:08 Influenza, split virus, quadrivalent, PF 7 completed LUIS Ferrari, [facility] 08/17/2023 15:12:09 Influenza, high-dose, quadrivalent, PF 0 completed LUIS Ferrari, [facility] 08/17/2023 15:12:08 Influenza, split virus, quadrivalent, PF 8 completed LUIS Ferrari, [facility] 08/17/2023 15:12:09 Influenza, high-dose, trivalent, PF 9 completed LUIS Ferrari, [facility] 08/17/2023 15:12:09 Td (adult), 2 Lf tetanus toxoid, preservative free, adsorbed 2 completed LUIS Ferrari [facility] 08/17/2023 15:12:09 Influenza, high-dose, quadrivalent, PF 2 completed LUIS Ferrari, [facility] 08/17/2023 15:12:08 Influenza, split virus, quadrivalent, PF 6 completed Not Available [facility] 08/13/2019 02:22:04 influenza, seasonal, intradermal, preservative free 2 completed Not Available [facility] 08/15/2023 18:06:39 Tdap 2 completed Not Available [facility] 08/15/2023 18:06:39 pneumococcal polysaccharide PPV23 2 completed Not Available [facility] 08/15/2023 18:06:38 influenza, seasonal, intradermal, preservative free 3 completed Not Available [facility] 08/15/2023 18:06:39 Influenza, high-dose, quadrivalent, PF 3 completed LUIS Zhao, [facility] 04/10/2023 13:42:39 Influenza, high-dose, trivalent, PF 4 completed LUIS Zhao [place] - [facility] 04/11/2024 12:43:47 Past Encounters Encounter ID Performer Location Encounter Start Date Encounter Closed Date Diagnosis/Indication Diagnosis SNOMED-CT Code Diagnosis ICD10 Code Diagnosis Note [id number] Joanna De MD Main Office [address] [facility] [address] [place] [address] 11/02/2024 09:34:28 11/02/2024 10:57:07 Fever 223732503 R50.9 fever of unknown etiology - d/w Dr. De - check labs, urine, cxrwill rx c empiric abx - to help keep him out of the hospitalre commend probiotics while on abx Chronic ki dney disease stage 4 972862042 N18.4 cont lasix 40mg bid as per renal - next f/u c renal next wedmost likely has cardiorena l syndrome*w ill fwd copy of this ov note to renal* Renal diso rder due to type 2 diabetes mellitus 313191163 E11.22 cont meds, f/u c endo as dir Heart failure 59487196 I 50.9 as per renal note last week was hypervolem ic - began lasix 40mg bid - see [place] 24 lbs from renal ov last weekmost likely has HFpEF d/t results of echo 1.23.25 (see above)chec k labsrec avoid saltdoes not appear pt sees cardiologi st - will discuss c pt at f/u visit next week Dysuria 72359980 R30.0 [id number] Joanna De MD Main Office [address] [facility] [address] [place] [address] 11/14/2024 08:24:29 11/14/2024 09:22:59 Venereal disease screening 504265468 Z11.3 Left flank pain 46460862 9 R10.9 Fever 471149843 R50.9 Pneumonia caused by respiratory syncytial virus 330841775 J12.1 Chill 87640901 R68.83 Health Concerns Section Related Observation LastModified by Organization Detai ls LastModified Time None Recorded Concern Status LastModified by Organization Details LastModified Time None Recorded Payers Encounter Date Sequence Insurance Name Policy Number Policy Frederick Covered Member ID Frederick Member ID Guarantor Name 11/14/2024 1 [facility] (MEDICARE REPLACEMENT/A DVANTAGE - PPO) [id number] Ryan Waggoner [id number] Ryan Waggoner Notes Date Note Type Note Provider Name and Address Organization Details Recorded Time 11/14/2024 text/html The patient presents today accompanied by his sister and son, whom he permitted to be present for the visit. He was recently hospitalized for RSV and pneumonia, and subsequently followed up with my colleagues a few weeks ago. At that time, he was evaluated for fever of unknown origin and was prescribed doxycycline and cefdinir. He is also under the care of a combo welder and reports feeling much better overall. Prior to his hospitalization, he experienced chills. His son questioned whether Lasix could have contributed to his symptoms. However, the patient currently denies any chills and continues to take Lasix as prescribed by his combo welder. They also inquired about refills for sodium bicarbonate and sodium polystyrene sulfonate, both prescribed by the combo welder; I advised them to contact that provider [...] the importance of close follow-up with his combo welder and advised that acetaminophen is the safest [id number]-[id number] pain reliever for him, not exceeding 3 grams in 24 hours, with a suggested dose of (2) 500 mg every 6 hours as needed. He is overdue for follow-up with his urologist, and I encouraged him to call their office to schedule an appointment. As for his recovery from RSV and secondary pneumonia, he is currently afebrile and asymptomatic. Joanna De MD [address], [address], [facility] 11/14/2024 10:39:22
--- OUTSIDE RECORDS SUMMARY | 2024-11-17 18:48 | XMS_ITS | Clinical Summary ---
Author Organization [facility] Address [address] [place] [address] Care Team Providers Care Political Research Scientist Name Role Phone Unavailable Primary Care Provider [...] at Discharge) cholecalciferol (CHOLECALCIFERO L) 1.25 MG (28401 UT) capsule Take 1 capsule (50,000 Units [...] Description 10/18/2024 4:00 PM EDT Ancillary Procedure [facility] [address] [place] [address] Provider, File Room 10/18/2024 10:27 AM EDT - 10/22/2024 11:46 AM EDT Hospital Encounter [address] [facility] [address] Marcelino Garcia MD Elias, Michael, MD Javed, Zohaib, MD Nair, MD Christal Acute hypoxic respiratory failure (HCC) (Primary Dx); Pneumonia due to infectious organism, unspecified laterality, unspecified part of lung Discharge Disposition: Home or Self Care 10/17/2024 Orders Only [facility] [address] [place] [address] Provider, File Room from Last 3 Months Social History Tobacco Use Types Packs/Day Years Used Date Smoking Tobacco: Never Assessed [facility] Utilities Answer Date Recorded In the [...] any time in the past [address] [facility], were you homeless or living in a usp (including now)? No 10/21/2024 Sex and Gender [...] - 11.0 Thou/uL 10/22/2024 8:07 AM EDT [facility] Platelet Count 243 150 - 450 Thou/uL 10/22/2024 8:07 AM EDT [facility] Hemoglobin 8.4(L) 13.0 - 17.7 g/dL 10/22/2024 8:07 AM EDT [facility] Hematocrit 26.7(L) 39.0 - 54.0 % 10/22/2024 8:07 AM EDT [facility] Red Blood Cell Count 2.87(L) 4.50 - 6.20 Mil/uL 10/22/2024 8:07 AM EDT [facility] MCV 93 80 - 100 fL 10/22/2024 8:07 AM EDT [facility] MCH 29.3 27.0 - 31.0 pg 10/22/2024 8:07 AM EDT [facility] MCHC 31.5 30.0 - 36.0 g/dL 10/22/2024 8:07 AM EDT [facility] RDW 14.6(H) 11.5 - 14.5 % 10/22/2024 8:07 AM EDT [facility] MPV 11.0 7.5 - 12.5 fL 10/22/2024 8:07 AM EDT [facility] nRBC 0.5(H) 0.0 - 0.1 /100 WBC 10/22/2024 8:07 AM EDT [facility] nRBC, Absolute 0.06(H) 0.00 - 0.02 Thou/uL 10/22/2024 8:07 AM EDT [facility] Bands Man 4 % 10/22/2024 9:31 AM EDT [facility] Neutrophils Man 86 % 9:31 AM EDT [facility] Lymphocytes Man 7 % 9:31 AM EDT [facility] Monocytes Man 3 % 10/22/2024 9:31 AM EDT [facility] Abs Neutrophils Count (ANC) 10.6(H) 2.0 - 7.5 Thou/uL 10/22/2024 9:31 AM EDT [facility] Abs Lymphocytes Man 0.8(L) 1.5 - 4.5 Thou/uL 10/22/2024 9:31 AM EDT [facility] Abs Monocytes Man 0.4 0.2 - 1.5 Thou/uL 10/22/2024 9:31 AM EDT [facility] Macrocytes Occasional 10/22/2024 9:31 AM EDT [facility] Polychromasia Occasional 10/22/2024 9:31 AM EDT [facility] Hypochromia Occasional 10/22/2024 9:31 AM EDT [facility] Spherocytes Occasional 10/22/2024 9:31 AM EDT [facility] Blood Blood specimen / Unknown 10/22/2024 7:49 AM EDT 10/22/2024 8:00 AM EDT us Christal Castrejon MD LAB BLOOD ORDERABLES Final Resul t [facility] [address] [place] [address], [place] * (ABNORMAL) Basic Metabolic Panel (Early AM) (10/22/2024 7:49 AM EDT) Only the most recent of2 resultswithin the time period is included. Glucose 145(H) 74 - 106 mg/dL 10/22/2024 8:37 AM EDT [facility] Comment:Fasting: <100 mg/dL, Non-Fasting: <200 mg/dL (ADA 2004) Blood Urea Nitrogen (BUN) 107(H) 9 - 23 mg/dL 10/22/2024 8:37 AM EDT [facility] Creatinine 6.1(H) 0.7 - 1.3 mg/dL 10/22/2024 8:37 AM EDT [facility] eGFR 9(L) >59 10/22/2024 8:37 AM EDT [facility] Comment:CKD-EPI (2020) in mL /min/1.73 sq meters. Sodium 146(H) 136 - 145 mmol/L 10/22/2024 8:37 AM EDT [facility] Potassium 3.8 3.4 - 4.5 mmol/L 10/22/2024 8:37 AM EDT [facility] Chloride 107 98 - 107 mmol/L 10/22/2024 8:37 AM EDT [facility] CO2 23 20 - 31 mmol/L 10/22/2024 8:37 AM EDT [facility] Anion Gap 16(H) 5 - 15 10/22/2024 8:37 AM EDT [facility] Calcium 8.2(L) 8.7 - 10.5 mg/dL 10/22/2024 8:37 AM EDT [facility] BUN/Creatinine Ratio 18 10.0 - 25.0 Ratio 10/22/2024 8:37 AM EDT [facility] Blood Blood specimen / Unknown 10/22/2024 7:49 AM EDT 10/22/2024 8:00 AM EDT us Christal Castrejon MD LAB BLOOD ORDERABLES Final Resul t [facility] [address] [place] [address], [place] * (ABNORMAL) POCT Glucose, Fingerstick (10/22/2024 7:42 AM EDT) Only the most recent of20 resultswithin the time period is included. Pathologist [facility] POC Glucose 150(H) 65 - 99 mg/dL 10/22/2024 7:48 AM EDT Blood specimen / Unknown 10/22/2024 7:42 AM EDT 10/22/2024 7:48 AM EDT us Christal Castrejon MD POINT OF CARE TEST ORDERABLES Fi nal Result HOSPITAL LAB See Below * ECHOCARDIOGRAM COMPREHENSIVE WITH CONTRAST (10/20/2024 12:11 PM EDT) Pathologist [facility] IVS Mean (F:0.6-0.9, M:0.6-1.0) 1.0 cm IVS [...] - 5.1 mg/dL 10/20/2024 6:13 AM EDT [facility] Blood Blood specimen / Unknown 10/20/2024 5:31 AM EDT 10/20/2024 5:37 AM EDT Hadley Johnson MD LAB BLOOD ORDERABLES Final Resu lt [facility] [address] [place] [address], * MAGNESIUM (10/20/2024 5:31 AM EDT) Only the most recent of3 resultswithin the time period is included. Magnesium 2.1 1.6 - 2.6 mg/dL 10/20/2024 6:13 AM EDT [facility] Blood Blood specimen / Unknown 10/20/2024 5:31 AM EDT 10/20/2024 5:37 AM EDT us Hadley Johnson MD LAB BLOOD ORDERABLES Final Resu lt [facility] [address] [place] [address], * (ABNORMAL) Comprehensive Metabolic Panel (10/20/2024 5:31 AM EDT) Only the most recent of3 resultswithin the time period is included. Glucose 141(H) 74 - 106 mg/dL 10/20/2024 6:13 AM EDT [facility] Comment:Fasting: <100 mg/dL, Non-Fasting: <200 mg/dL (ADA 2004) Blood Urea Nitrogen (BUN) 100(H) 9 - 23 mg/dL 10/20/2024 6:13 AM EDT [facility] Creatinine 6.6(H) 0.7 - 1.3 mg/dL 10/20/2024 6:13 AM EDT [facility] eGFR 8(L) >59 10/20/2024 6:13 AM EDT [facility] Comment:CKD-EPI (2020) in mL /min/1.73 sq meters. Sodium 143 136 - 145 mmol/L 10/20/2024 6:13 AM EDT [facility] Potassium 4.0 3.4 - 4.5 mmol/L 10/20/2024 6:13 AM EDT [facility] Chloride 108(H) 98 - 107 mmol/L 10/20/2024 6:13 AM EDT [facility] CO2 22 20 - 31 mmol/L 10/20/2024 6:13 AM EDT [facility] Calcium 7.4(L) 8.7 - 10.5 mg/dL 10/20/2024 6:13 AM EDT [facility] Alkaline Phosphatase 150(H) 45 - 128 U/L 10/20/2024 6:13 AM EDT [facility] Aspartate Aminotrans (AST) 37(H) <34 U/L 10/20/2024 6:13 AM EDT [facility] Alanine Aminotrans (ALT) 23 10 - 49 U/L 10/20/2024 6:13 AM EDT [facility] Bilirubin, Total 0.2(L) 0.3 - 1.2 mg/dL 10/20/2024 6:13 AM EDT [facility] Protein, Total 6.8 5.7 - 8.2 g/dL 10/20/2024 6:13 AM EDT [facility] Albumin 3.5 3.4 - 4.8 g/dL 10/20/2024 6:13 AM EDT [facility] BUN/Creatinine Ratio 15 10.0 - 25.0 Ratio 10/20/2024 6:13 AM EDT [facility] Globulin 3.3 1.5 - 3.9 g/dL 10/20/2024 6:13 AM EDT [facility] Albumin/Globulin Ratio 1.0(L) 1.5 - 2.5 Ratio 10/20/2024 6:13 AM EDT [facility] Anion Gap 13 5 - 15 10/20/2024 6:13 AM EDT [facility] Blood Blood specimen / Unknown 10/20/2024 5:31 AM EDT 10/20/2024 5:37 AM EDT us Hadley Johnson MD LAB BLOOD ORDERABLES Final Resu lt [facility] [address] [place] [address], * (ABNORMAL) POCT Blood Gas, Arterial (10/19/2024 3:46 PM EDT) Only the most recent of5 resultswithin the time period is included. Sample Type Arterial 10/19/2024 3:[address] [facility] pH, Arterial 7.36 7.35 - 7.45 10/19/2024 3:[address] [facility] Lab pCO2, Arterial 36 35 - 45 mmHG 10/19/2024 3:[address] [facility] pO2, Arterial 48(LL) 80 - 100 mmHG 10/19/2024 3:[address] [facility] HCO3 20.0(L) 22 - 26 mmol/L 10/19/2024 3:[address] [facility] O2 Saturation, Arterial 79.0(L) 95 - 100 % 10/19/2024 3:[address] [facility] Base Deficit, Arterial 4.5 mmol/L 10/19/2024 3:[address] [facility] Comment:REFERENCE RANGE: NEG ATIVE 2 TO POSITIVE 2 Liter Flow, I-STAT 3.0 10/19/2024 3:[address] [facility] Lab Comments POC VENOUS 10/19/2024 3:[address] [facility] 10/19/2024 3:46 PM EDT 10/19/2024 3:48 PM EDT Hadley Johnson MD POCT ORDERABLES - DEVICE Final Result [facility] [address] [facility] [place] [address], [facility],Pulmonary Lab [address] [facility], [place] * XR Chest 1 view-Portable (10/19/2024 [...] is included. Ventricular rate 94 BPM EKG [facility] Atrial rate 94 BPM EKG [facility] P-R interval 138 ms EKG [facility] QRS duration 88 ms EKG [facility] Q-T interval 386 ms EKG [facility] QTC calculation (Bazett) 483 ms EKG [facility] P axis 60 degrees EKG [facility] R axis 19 degrees EKG [facility] T axis 55 degrees EKG [facility] 10/19/2024 9:20 AM EDT Narrative EKG [facility] - 10/19/2024 9:41 AM EDT Normal sinus rhythm Prolonged QT Abnormal ECG When compared with ECG of 18-Oct-2024 11:36, No significant change was found Confirmed by MD Simmons Venu ([id number]) on 10/19/2024 9:41:44 AM Procedure Note Roland Simmons MD - 10/19/2024 Normal sinus rhythm Prolonged QT Abnormal ECG When compared with ECG of 18-Oct-2024 11:36, No significant change was found Confirmed by MD Simmons Venu ([id number]) on 10/19/2024 9:41:44 AM us Hadley Johnson MD ECG ORDERABLES Final Result Performing Organization Address City/[facility]/ZIP Co de Phone Number EKG [facility] * (ABNORMAL) POCT, Ionized Calcium (10/18/2024 11:02 PM EDT) POC Ionized Calcium 4.30(L) 4.60 - 5.32 mg/dL 10/18/2024 11:[address] [facility] Smear Cmt LEFT RADIAL POSITIVE COLLATERAL No comment 10/18/2024 11:[address] [facility] 10/18/2024 11:0 2 PM EDT 10/18/2024 11:05 PM EDT us Hadley Johnson MD POCT ORDERABLES - DEVICE Final Result Performing Organization Address [facility] Co de Phone Number [facility] [address] [place] [address], [facility],Pulmonary Lab [address] [facility], [place] * POCT, Lactate (10/18/2024 11:02 PM EDT) [facility] Lactate, POC 0.6 0.4 - 0.8 mmol/L 10/18/2024 11:[address] [facility] Comment LEFT RADIAL POSITIVE COLLATERAL No comment 10/18/2024 11:[address] [facility] 10/18/2024 11:0 2 PM EDT 10/18/2024 11:05 PM EDT us Hadley Johnson MD POCT ORDERABLES - DEVICE Final Result Performing Organization Address City/[facility] Co de Phone Number [facility] [address] [place] [address], [facility] [address] [facility], [place] * POCT, Sodium (10/18/2024 11:02 PM EDT) Sodium 138 136 - 145 mmol/L 10/18/2024 11:[address] [facility] Smear Comm LEFT RADIAL POSITIVE COLLATERAL No comment 10/18/2024 11:[address] [facility] 10/18/2024 11:0 2 PM EDT 10/18/2024 11:05 PM EDT us Hadley Johnson MD POCT ORDERABLES - DEVICE Final Result [facility] [address] [place] [address], [facility],Pulmonary Lab [address] [place], [place] * POCT, Potassium (10/18/2024 11:02 PM EDT) Potassium 4.3 3.5 - 5.1 mmol/L 10/18/2024 11:[address] [facility] Comment LEFT RADIAL POSITIVE COLLATERAL No comment 10/18/2024 11:[address] [facility] 10/18/2024 11:0 2 PM EDT 10/18/2024 11:05 PM EDT us Hadley Johnson MD POCT ORDERABLES - DEVICE Final Result [facility] [address] [place] [address], [facility],Pulmonary Lab [address] [place], [place] * (ABNORMAL) POCT, Hematocrit (10/18/2024 11:02 PM EDT) Hematocrit 25.0(L) 40 - 50 % 10/18/2024 11:[address] [facility] Comment LEFT RADIAL POSITIVE COLLATERAL 10/18/2024 11:[address] [facility] 10/18/2024 11:0 2 PM EDT 10/18/2024 11:05 PM EDT us Hadley Johnson MD POCT ORDERABLES - DEVICE Final Result [facility] [address] [place] [address], [facility],Pulmonary Lab [address] [place], [place] * (ABNORMAL) POCT, Glucose (10/18/2024 11:02 PM EDT) Glucose POC 206(H) 70 - 108 mg/dL 10/18/2024 11:[address] [facility] Comment LEFT RADIAL POSITIVE COLLATERAL No comment 10/18/2024 11:[address] [facility] 10/18/2024 11:0 2 PM EDT 10/18/2024 11:05 PM EDT us Hadley Johnson MD POCT ORDERABLES - DEVICE Final Result [facility] [address] [place] [address], [facility],P[facility] Lab [address] [place], [place] * POCT, Cooximetry (10/18/2024 11:02 PM EDT) Carboxyhemoglobin 0.0 % 025 11:[address] [facility] Methemoglobin 0.7 % 10/18/2024 11:[address] [facility] Oxyhemoglobin, POC 94.8000 % 2024 11:[address] [facility] Reduced Hemoglobin 4.5 % 2024 11:[address] [facility] Hemoglobin, POC 8.4 11:[address] [facility] POC Sample Type Arterial 11:[address] [facility] Comment LEFT RADIAL POSITIVE COLLATERAL 10/18/2024 11:[address] [facility] 10/18/2024 11:0 2 PM EDT 10/18/2024 11:05 PM EDT Hadley Johnson MD POCT ORDERABLES - DEVICE Final Result [facility]UL[facility] [address] [place] [address], [facility],Pulmonary Lab [address] [place], [place] * (ABNORMAL) Urinalysis with Reflex to Microscopic and Culture (10/18/2024 5:26 PM EDT) Color Yellow 10/18/2024 9:15 PM EDT [facility] Clarity Clear 10/18/2024 9:15 PM EDT [facility] Specific [place] 1.016 1.003 - 1.030 10/18/2024 9:15 PM EDT [facility] pH 5.0 5.0 - 8.0 10/18/2024 9:15 PM EDT [facility] Leukocyte Esterase Negative Negative 10/18/2024 9:15 PM EDT [facility] Nitrite Negative Negative 10/18/2024 9:15 PM EDT [facility] Protein Large (300 mg/dL)(A) Negative 10/18/2024 9:15 PM EDT [facility] Glucose Moderate 0 - 99 mg/dL 10/18/2024 9:15 PM EDT [facility] Ketones Negative Negative 10/18/2024 9:15 PM EDT [facility] Blood Large(A) Negative 10/18/2024 9:15 PM EDT [facility] Urobilinogen 0.2 0.2 - 1.0 EU/dL 10/18/2024 9:15 PM EDT [facility] Bilirubin Negative Negative 10/18/2024 9:15 PM EDT [facility] WBC 9(H) 0 - 4 per hpf 10/18/2024 9:15 PM EDT [facility] RBC 50(H) 0 - 4 per hpf 10/18/2024 9:15 PM EDT [facility] Bacteria Negative Negative 10/18/2024 9:15 PM EDT [facility] Squamous Epithelial Cells 2 per hpf 10/18/2024 9:15 PM EDT [facility] Hyaline Casts 1 0 - 4 per lpf 10/18/2024 9:15 PM EDT [facility] Yeast Absent Absent 10/18/2024 9:15 PM EDT [facility] Urine Urine specimen obtained by clean catch procedure / Unknown 10/18/2024 5:26 PM EDT 10/18/2024 8:56 PM EDT us Hadley Johnson MD MICROBIOLOGY - GENERAL ORDERABL ES Final Result [facility] [address] [place] [address], * Legionella & Streptococcus Pneumoniae Antigen, Urine (10/18/2024 5:26 PM EDT) Pathologist [facility] Legionella Antigen EIA, Urine Presumptive Negative Presumptive [...] [facility] [address] [place] [address], [place] * Protein/Creatinine Ratio Panel, Urine (10/18/2024 5:26 PM EDT) Protein Urine, Random 338 mg/dL 10/18/2024 10:06 PM EDT [facility] Comment:Reference range not established for random specimen. Creatinine, Urine, Random 114 mg/dL 10/18/2024 9:30 PM EDT [facility] Comment:Reference range not established for random specimen. Protein/Creatini ne Ratio, Urine 2.96 10/18/2024 10:06 PM EDT [facility] Urine Urine specimen / Unknown 10/18/2024 5:26 PM EDT 10/18/2024 8:57 PM EDT us Hadley Johnson MD URINE ORDERABLES Final Result Performing Organization Address [facility] Co de Phone Number [facility] [address] [place] [address], [place] * CT Chest/abdomen+pelvis w/o contrast (10/18/2024 [...] Final Resu lt Performing Organization Address [facility] Co de Phone Number NIMESH [phone] * (ABNORMAL) PTH, Intact (10/18/2024 3:00 PM EDT) Pathologist [facility] PTH, Intact 755(H) 18 - 80 pg/mL 10/18/2024 4:18 PM EDT [facility] Blood Blood specimen / Unknown 10/18/2024 3:00 PM EDT 10/18/2024 3:39 PM EDT us Hadley Johnson MD LAB BLOOD ORDERABLES Final Resu lt Performing Organization Address [facility] [place] [address], * Nasal MRSA Screen, PCR (10/18/2024 2:45 PM EDT) [facility] MRSA Result Not Detected Not Detected 4:16 PM EDT [facility] Swab, Anterior Nares Specimen from nose / Unknown 10/18/2024 2:45 PM EDT 10/18/2024 2:58 PM EDT us Hadley Johnson MD MICROBIOLOGY - GENERAL ORDERABL ES Final Result Performing Organization Address [facility] [place] [address], * Lactic Acid, Plasma (STAT) (10/18/2024 1:43 PM EDT) Lactic Acid 1.2 0.5 - 1.9 mmol/L 10/18/2024 2:11 PM EDT [facility] Blood Blood specimen / Unknown 10/18/2024 1:43 PM EDT 10/18/2024 1:49 PM EDT us Hadley Johnson MD LAB BLOOD ORDERABLES Final Resu lt [facility] [address] [place] [address], [place] * Blood Culture (10/18/2024 12:11 PM [...] [facility] [address] [place] [address], * (ABNORMAL) B-Hydroxybutyrate (10/18/2024 12:09 PM EDT) B-Hydroxybutyrate 0.30(H) <0.28 mmol/L 10/18/2024 2:02 PM EDT [facility] Comment: In the presence of uncontrolled [...] MD LAB BLOOD ORDERABLES Final Resu lt [facility] [address] [place] [address], from Last 3 Months Insurance [employer] MEDICARE Advance Directives * Full Code (Latest Code Status on File) Date Activated Date Inactivated Comments 10/18/2024 11:07 AM
[2024-11-17 19:12] VITALS: BP 148/71; PULSE 90; RESP 16; TEMP 36.9; O2SAT 96
[2024-11-17] MEDS: Magnesium Sulfate/H2O 2 GM/50 ML PIGGYBACK IV ×2 (20:20→22:26)
[2024-11-17 23:36] VITALS: BP 137/63; PULSE 86; RESP 18; TEMP 37; O2SAT 94
[2024-11-18 01:31] VITALS: BP 137/63; PULSE 86; RESP 18; TEMP 37; O2SAT 94
== END 2024-11-18 01:32 | disposition home or self-care (01) ==
PROVIDERS: Physician Assistant; Emergency Provider Student in an Organized Health Care Education/Training Program; PCP Family Medicine
DX: R79.89 Other specified abnormal findings of blood chemistry (principal); R10.32 Left lower quadrant pain; E83.42 Hypomagnesemia; R60.0 Localized edema; E11.22 Type 2 diabetes mellitus with diabetic chronic kidney disease; I12.9 Hypertensive chronic kidney disease with stage 1 through stage 4 chronic kidney disease, or unspecified chronic kidney disease; N18.4 Chronic kidney disease, stage 4 (severe); N25.81 Secondary hyperparathyroidism of renal origin; Z79.4 Long term (current) use of insulin; Z79.899 Other long term (current) drug therapy
CPT/HCPCS: 36415; 71046; 74176; 80048; 80053; 80076; 81001; 83690; 83735; 83880; 85025; 86704; 86705; 86780; 86803; 87340; 87389; 87491; 87591; 96374; 96376; 99284; J3475

== ENCOUNTER → 2024-11-17 14:28 | Outpatient (BNV) | payer MEDICARE, SELFPAY | PROVIDERS: PCP Family Medicine; Visit Provider Radiology Diagnostic Radiology | DX: J81.0 Acute pulmonary edema (principal); N28.1 Cyst of kidney, acquired | CPT/HCPCS: 71046; 74176 ==

== ENCOUNTER 2024-11-21 10:36 | Outpatient (REF) | payer MEDICARE, SELFPAY ==
--- OUTSIDE RECORDS SUMMARY | 2024-11-21 12:36 | XMS_ITS | Clinical Summary ---
Author Organization [facility] Address [address] [facility] [address] [place] [address] Phone Care Team Providers Care Jalousie Installer Name Role Phone Joanna Angeles MD Primary Care Provider [phone] Allergies Active Allergy Reactions Criticality Noted Date [...] A1c (%). Testing performed or reported by ~[facility], ~a Service of [facility], ~[address] [place] [id number]~ 03/21/2019 2:49 PM EDT us Chris Martínez MD LAB BLOOD ORDERABLES Final Resul t [facility] 3 from Last 3 Months or Most Recently Relevant to Health Maintenance Insurance [facility] Medicare [facility] Medicare Care Teams Jalousie Installer Relationship Specialty Start Date End Date Joanna Angeles MD [address] [address] PCP - General Family Medicine 02/17/23
--- OUTSIDE RECORDS SUMMARY | 2024-11-21 12:36 | XMS_ITS ---
[facility] Care Plan Created on: November 18, 2024 Ryan Waggoner : 1955 Sex: Male Author Organization [facility]. Address [address] [place] [id number] Phone Health Concerns Health Status [facility] Health Concerns None
--- OUTSIDE RECORDS SUMMARY | 2024-11-21 12:36 | XMS_ITS | Clinical Summary ---
Author Organization [facility] Address [address] [place] [address] Care Team Providers Care Food Bagging Machine Operator Name Role Phone Unavailable Primary Care Provider [...] Documents on File Type Date Recorded Patient Transformer Shop Supervisor Expl anation Health Care Decision (hx) 02/27/2023 HE ALTH CARE PROXY Health Care Decision (hx) 02/27/2023 HE ALTH CARE PROXY Health Care Decision (hx) 02/27/2023 HE ALTH CARE PROXY
--- OUTSIDE RECORDS SUMMARY | 2024-11-21 12:37 | XMS_ITS | Encounter Summary ---
Author Organization [facility] Address [address] [place] [address] Phone Care Team Providers Care Tie Up Worker Name Role Phone Joanna Angeles MD Primary Care Provider [phone] Reason for Visit * Reason Comments Med Refill Encounter Details Date Type Department Care Team ([facility] st Contact Info) Description 06/09/2023 Refill [facility] [address] [place] [address] Ahmet Oviedo MD [address] [facility] [address] [place] [address] Social History Tobacco Use Types [...] on filedocumented in this encounter Care Teams Tie Up Worker Relationship Specialty Start Date End Date Joanna Angeles MD [address] [facility] [address] [place] [phone] PCP - General Family Medicine 02/17/23 documented as of this encounter
--- OUTSIDE RECORDS SUMMARY | 2024-11-21 12:37 | XMS_ITS | Clinical Summary ---
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 5 Active Tresiba FlexTouch 100 UNIT/ML prefilled pen injection Inject 65 Units under the skin nightly. 5 Active temazepam (RESTORIL) 15 MG capsule Take 1 capsule (15 mg total) by mouth nightly as needed for sleep. 5 Active sodium bicarbonate 650 MG tabletIndication s:Acute hypoxic respiratory failure (HCC) Take 2 tablets (1,300 mg total) by mouth 2 (two) times a day. 120 tablet 5 Active atorvastatin (LIPITOR) 40 MG tabletIndication s:Acute hypoxic respiratory failure (HCC) Take 1 tablet (40 mg total) by mouth daily. 30 tablet 5 Active amLODIPine (NORVASC) 10 MG tabletIndication s:Acute hypoxic respiratory failure (HCC) Take 1 tablet (10 mg total) by mouth daily. 30 tablet 5 Active predniSONE (DELTASONE) 10 MG tabletIndication s:Acute hypoxic respiratory failure (HCC) Take 40 mg (= 4 tablets) by mouth daily for 1 days, then 30 mg (= 3 tablets) daily for 1 days, then 20 mg (= 2 tablets) daily for 1 days, then 10 mg (= 1 tablet) daily for 1 days. Take with food. 20 tablet 5 Active sevelamer carbonate (RENVELA) 0.8 g packetIndication s:Acute hypoxic respiratory failure (HCC) Take 1 packet (800 mg total) by mouth 3 (three) times a day with meals. 90 packet Active cefpodoxime (VANTIN) 200 MG tabletIndication s:Acute hypoxic respiratory failure (HCC),Pneumonia due to infectious organism, unspecified laterality, unspecified part of lung Take 1 tablet (200 mg total) by mouth daily. Do not start before October 23, 2024. 2 tablet 10/26/19 Active Problems Problem Noted Date Diagnosed Date Acute hypoxic respiratory failure 10/18/2024 Encounters Date Type Department Care Team Description 10/18/2024 4:00 PM EDT Ancillary Procedure [facility] Radiology [address] [place] [address] Provider, File Room 10/18/2024 10:27 AM EDT - 10/22/2024 11:46 AM EDT Hospital Encounter [facility] [address] [phone] Marcelino Garcia MD Elias, Michael, MD Javed, MD Lucía Joshi Anita, MD Acute hypoxic respiratory failure (HCC) (Primary Dx); Pneumonia due to infectious organism, unspecified laterality, unspecified part of lung Discharge Disposition: Home or Self Care 10/17/2024 Orders Only [facility] Radiology [address] [place] [address] Provider, File Room from Last 3 Months Social History Tobacco Use Types Packs/Day Years Used Date Smoking Tobacco: Never Assessed [facility] Utilities Answer Date Recorded In the past 12 months has [employer], gas, oil, or water [employer] threatened to shut off services in your [...] any time in the past 12 m [facility], were you homeless or living in a residential (including now)? No 10/21/2024 Sex and Gender [...] 06/04/2020, Additional history exists COVID-19 Vaccine ( - 2023- season) 2024 06/23/2021, 09/14/2020, 08/17/2020 Hepatitis B [...] - 11.0 Thou/uL 10/22/2024 8:07 AM EDT [facility] Platelet Count 243 150 - 450 Thou/uL 10/22/2024 8:07 AM EDT [facility] Hemoglobin 8.4(L) 13.0 - 17.7 g/dL 10/22/2024 8:07 AM EDT [facility] Hematocrit 26.7(L) 39.0 - 54.0 % 10/22/2024 8:07 AM EDT [facility] Red Blood Cell Count 2.87(L) 4.50 - 6.20 Mil/uL 10/22/2024 8:07 AM EDT [facility] MCV 93 80 - 100 fL 10/22/2024 8:07 AM EDT [facility] MCH 29.3 27.0 - 31.0 pg 10/22/2024 8:07 AM EDT [facility] MCHC 31.5 30.0 - 36.0 g/dL 10/22/2024 8:07 AM EDT [facility] RDW 14.6(H) 11.5 - 14.5 % 10/22/2024 8:07 AM EDT [facility] MPV 11.0 7.5 - 12.5 fL 10/22/2024 8:07 AM EDT [facility] nRBC 0.5(H) 0.0 - 0.1 /100 WBC 10/22/2024 8:07 AM EDT [facility] nRBC, Absolute 0.06(H) 0.00 - 0.02 Thou/uL 10/22/2024 8:07 AM EDT [facility] Bands Man 4 % 10/22/2024 9:31 AM EDT [facility] Neutrophils Man 86 % 9:31 AM EDT [facility] Lymphocytes Man 7 % 9:31 AM EDT [facility] Monocytes Man 3 % 10/22/2024 9:31 AM EDT [facility] Abs Neutrophils Count (ANC) 10.6(H) 2.0 - 7.5 Thou/uL 10/22/2024 9:31 AM EDT [facility] Abs Lymphocytes Man 0.8(L) 1.5 - 4.5 Thou/uL 10/22/2024 9:31 AM EDT [facility] Abs Monocytes Man 0.4 0.2 - 1.5 Thou/uL 10/22/2024 9:31 AM EDT [facility] Macrocytes Occasional 10/22/2024 9:31 AM EDT [facility] Polychromasia Occasional 10/22/2024 9:31 AM EDT [facility] Hypochromia Occasional 10/22/2024 9:31 AM EDT [facility] Spherocytes Occasional 10/22/2024 9:31 AM EDT [facility] Blood Blood specimen / Unknown 10/22/2024 7:49 AM EDT 10/22/2024 8:00 AM EDT us Christal Castrejon MD LAB BLOOD ORDERABLES Final Resul t [facility] [address] [place] [address], * (ABNORMAL) Basic Metabolic Panel (Early AM) (10/22/2024 7:49 AM EDT) Only the most recent of2 resultswithin the time period is included. Glucose 145(H) 74 - 106 mg/dL 10/22/2024 8:37 AM EDT [facility] Comment:Fasting: <100 mg/dL, Non-Fasting: <200 mg/dL (ADA 2005) Blood Urea Nitrogen (BUN) 107(H) 9 - 23 mg/dL 10/22/2024 8:37 AM EDT [facility] Creatinine 6.1(H) 0.7 - 1.3 mg/dL 10/22/2024 8:37 AM EDT [facility] eGFR 9(L) >59 10/22/2024 8:37 AM EDT [facility] Comment:CKD-EPI (2020) in mL /min/1.73 sq meters. Sodium 146(H) 136 - 145 mmol/L 10/22/2024 8:37 AM EDT [facility] Potassium 3.8 3.4 - 4.5 mmol/L 10/22/2024 8:37 AM EDT [facility] Chloride 107 98 - 107 mmol/L 10/22/2024 8:37 AM EDT [facility] CO2 23 20 - 31 mmol/L 10/22/2024 8:37 AM EDT [facility] Anion Gap 16(H) 5 - 15 10/22/2024 8:37 AM EDT [facility] Calcium 8.2(L) 8.7 - 10.5 mg/dL 10/22/2024 8:37 AM EDT [facility] BUN/Creatinine Ratio 18 10.0 - 25.0 Ratio 10/22/2024 8:37 AM EDT [facility] Blood Blood specimen / Unknown 10/22/2024 7:49 AM EDT 10/22/2024 8:00 AM EDT us Christal Castrejon MD LAB BLOOD ORDERABLES Final Resul t [facility] [address] [place] [address], * (ABNORMAL) POCT Glucose, Fingerstick (10/22/2024 7:42 [...] - 5.1 mg/dL 10/20/2024 6:13 AM EDT [facility] Blood Blood specimen / Unknown 10/20/2024 5:31 AM EDT 10/20/2024 5:37 AM EDT us Hadley Johnson MD LAB BLOOD ORDERABLES Final Resu lt Performing Organization Address City/[facility]/ZIP [place] [address], * MAGNESIUM (10/20/2024 5:31 AM EDT) Only the most recent of3 resultswithin the time period is included. Magnesium 2.1 1.6 - 2.6 mg/dL 10/20/2024 6:13 AM EDT [facility] Blood Blood specimen / Unknown 10/20/2024 5:31 AM EDT 10/20/2024 5:37 AM EDT us Hadley Johnson MD LAB BLOOD ORDERABLES Final Resu lt Performing Organization Address [facility] [place] [address], * (ABNORMAL) Comprehensive Metabolic Panel (10/20/2024 5:31 AM EDT) Only the most recent of3 resultswithin the time period is included. Glucose 141(H) 74 - 106 mg/dL 10/20/2024 6:13 AM EDT [facility] Comment:Fasting: <100 mg/dL, Non-Fasting: <200 mg/dL (ADA 2004) Blood Urea Nitrogen (BUN) 100(H) 9 - 23 mg/dL 10/20/2024 6:13 AM EDT [facility] Creatinine 6.6(H) 0.7 - 1.3 mg/dL 10/20/2024 6:13 AM EDT [facility] eGFR 8(L) >59 10/20/2024 6:13 AM EDT [facility] Comment:CKD-EPI (2020) in mL /min/1.73 sq meters. Sodium 143 136 - 145 mmol/L 10/20/2024 6:13 AM EDT [facility] Potassium 4.0 3.4 - 4.5 mmol/L 10/20/2024 6:13 AM EDT [facility] Chloride 108(H) 98 - 107 mmol/L 10/20/2024 6:13 AM EDT [facility] CO2 22 20 - 31 mmol/L 10/20/2024 6:13 AM EDT [facility] Calcium 7.4(L) 8.7 - 10.5 mg/dL 10/20/2024 6:13 AM EDT [facility] Alkaline Phosphatase 150(H) 45 - 128 U/L 10/20/2024 6:13 AM EDT [facility] Aspartate Aminotrans (AST) 37(H) <34 U/L 10/20/2024 6:13 AM EDT [facility] Alanine Aminotrans (ALT) 23 10 - 49 U/L 10/20/2024 6:13 AM EDT [facility] Bilirubin, Total 0.2(L) 0.3 - 1.2 mg/dL 10/20/2024 6:13 AM EDT [facility] Protein, Total 6.8 5.7 - 8.2 g/dL 10/20/2024 6:13 AM EDT [facility] Albumin 3.5 3.4 - 4.8 g/dL 10/20/2024 6:13 AM EDT [facility] BUN/Creatinine Ratio 15 10.0 - 25.0 Ratio 10/20/2024 6:13 AM EDT [facility] Globulin 3.3 1.5 - 3.9 g/dL 10/20/2024 6:13 AM EDT [facility] Albumin/Globulin Ratio 1.0(L) 1.5 - 2.5 Ratio 10/20/2024 6:13 AM EDT [facility] Anion Gap 13 5 - 15 10/20/2024 6:13 AM EDT [facility] Blood Blood specimen / Unknown 10/20/2024 5:31 AM EDT 10/20/2024 5:37 AM EDT us Hadley Johnson MD LAB BLOOD ORDERABLES Final Resu lt [facility] [address] [place] [address], * (ABNORMAL) POCT Blood Gas, Arterial (10/19/2024 3:46 PM EDT) Only the most recent of5 resultswithin the time period is included. Sample Type Arterial 10/19/2024 3:48 PM EDT [facility] Lab pH, Arterial 7.36 7.35 - 7.45 10/19/2024 3:48 PM EDT [facility] Lab pCO2, Arterial 36 35 - 45 mmHG 10/19/2024 3:48 PM EDT [facility] Lab pO2, Arterial 48(LL) 80 - 100 mmHG 10/19/2024 3:48 PM EDT [facility] HCO3 20.0(L) 22 - 26 mmol/L 10/19/2024 3:48 PM EDT [facility] O2 Saturation, Arterial 79.0(L) 95 - 100 % 10/19/2024 3:48 PM EDT [facility] Base Deficit, Arterial 4.5 mmol/L 10/19/2024 3:48 PM EDT [facility] Comment:REFERENCE RANGE: NEG ATIVE 2 TO POSITIVE 2 Liter Flow, I-STAT 3.0 10/19/2024 3:48 PM EDT [facility] Comments POC VENOUS 10/19/2024 3:48 PM EDT [facility] 10/19/2024 3:46 PM EDT 10/19/2024 3:48 PM EDT us Hadley Johnson MD POCT ORDERABLES - DEVICE Final Result [facility],PULMONARY LAB [address] [place] [address], [facility],Pulmonary Lab [address] [facility], [place] * XR Chest 1 [...] is included. Ventricular rate 94 BPM EKG [facility] Atrial rate 94 BPM EKG [facility] P-R interval 138 ms EKG [facility] QRS duration 88 ms EKG [facility] Q-T interval 386 ms EKG [facility] QTC calculation (Bazett) 483 ms EKG [facility] P axis 60 degrees EKG [facility] R axis 19 degrees EKG [facility] T axis 55 degrees EKG [facility] 10/19/2024 9:20 AM EDT Narrative EKG [facility] - 10/19/2024 9:41 AM EDT Normal sinus rhythm Prolonged QT Abnormal ECG When compared with ECG of 18-Oct-2024 11:36, No significant change was found Confirmed by MD Simmons Venu ([id number]) on 10/19/2024 9:41:44 AM Procedure Note Roland Simmons MD - 10/19/2024 Normal sinus rhythm Prolonged QT Abnormal ECG When compared with ECG of 18-Oct-2024 11:36, No significant change was found Confirmed by MD Simmons Venu ([id number]) on 10/19/2024 9:41:44 AM us Hadley Johnson MD ECG ORDERABLES Final Result EKG [facility] * (ABNORMAL) POCT, Ionized Calcium (10/18/2024 11:02 PM EDT) POC Ionized Calcium 4.30(L) 4.60 - 5.32 mg/dL 10/18/2024 11:06 PM EDT [facility]ulmo nary Lab Smear Cmt LEFT RADIAL POSITIVE COLLATERAL No comment 10/18/2024 11:06 PM EDT [facility] 10/18/2024 11:0 2 PM EDT 10/18/2024 11:05 PM EDT us Hadley Johnson MD POCT ORDERABLES - DEVICE Final Result [facility],PULMONARY LAB [address] [place] [address], [facility],Pulmonary Lab [address] [place], [place] * POCT, Lactate (10/18/2024 11:02 PM EDT) Lactate, POC 0.6 0.4 - 0.8 mmol/L 10/18/2024 11:06 PM EDT [facility] Comment LEFT RADIAL POSITIVE COLLATERAL No comment 10/18/2024 11:06 PM EDT [facility] 10/18/2024 11:0 2 PM EDT 10/18/2024 11:05 PM EDT us Hadley Johnson MD POCT ORDERABLES - DEVICE Final Result Performing Organization Address City/[facility]/ZIP Co de Phone Number [facility],PULMONARY LAB [address] [place] [address], [facility],Pulmonary Lab [address] [facility] [facility], [place] * POCT, Sodium (10/18/2024 11:02 PM EDT) Sodium 138 136 - 145 mmol/L 10/18/2024 11:06 PM EDT [facility] Smear Comm LEFT RADIAL POSITIVE COLLATERAL No comment 10/18/2024 11:06 PM EDT [facility] 10/18/2024 11:0 2 PM EDT 10/18/2024 11:05 PM EDT us Hadley Johnson MD POCT ORDERABLES - DEVICE Final Result Performing Organization Address City/[facility]/ZIP Co de Phone Number [facility],PULMONARY LAB [address] [place] [address], [facility],Pulmonary Lab [address] [facility] [facility], [place] * POCT, Potassium (10/18/2024 11:02 PM EDT) Potassium 4.3 3.5 - 5.1 mmol/L 10/18/2024 11:06 PM EDT [facility] Comment LEFT RADIAL POSITIVE COLLATERAL No comment 10/18/2024 11:06 PM EDT [facility] 10/18/2024 11:0 2 PM EDT 10/18/2024 11:05 PM EDT us Hadley Johnson MD POCT ORDERABLES - DEVICE Final Result Performing Organization Address City/[facility]/ZIP Co de Phone Number [facility],PULMONARY LAB [address] [place] [address], [facility],Pulmonary Lab [address] [facility] [facility], [place] * (ABNORMAL) POCT, Hematocrit (10/18/2024 11:02 PM EDT) Hematocrit 25.0(L) 40 - 50 % 10/18/2024 11:06 PM EDT [facility] Comment LEFT RADIAL POSITIVE COLLATERAL 10/18/2024 11:06 PM EDT [facility] 10/18/2024 11:0 2 PM EDT 10/18/2024 11:05 PM EDT Hadley Johnson MD POCT ORDERABLES - DEVICE Final Result Performing Organization Address [facility] Co de Phone Number [facility],PULMONARY LAB [address] [place] [address], [facility],Pulmonary Lab [address] [facility] [facility], [place] * (ABNORMAL) POCT, Glucose (10/18/2024 11:02 PM EDT) Glucose POC 206(H) 70 - 108 mg/dL 10/18/2024 11:06 PM EDT [facility] Comment LEFT RADIAL POSITIVE COLLATERAL No comment 10/18/2024 11:06 PM EDT [facility] 10/18/2024 11:0 2 PM EDT 10/18/2024 11:05 PM EDT us Hadley Johnson MD POCT ORDERABLES - DEVICE Final Result Performing Organization Address City/[facility]/ZIP Co de Phone Number [facility],PULMONARY LAB [address] [place] [address], [facility],Pulmonary Lab [address] [facility] [facility], [place] * POCT, Cooximetry (10/18/2024 11:02 PM EDT) Carboxyhemoglobin 0.0 % 025 11:06 PM EDT [facility] Methemoglobin 0.7 % 10/18/2024 11:06 PM EDT [facility] Oxyhemoglobin, POC 94.8000 % 2024 11:06 PM EDT [facility] Reduced Hemoglobin 4.5 % 2024 11:06 PM EDT [facility] Hemoglobin, POC 8.4 11:06 PM EDT [facility] POC Sample Type Arterial 11:06 PM EDT [facility] Comment LEFT RADIAL POSITIVE COLLATERAL 10/18/2024 11:06 PM EDT [facility] 10/18/2024 11:0 2 PM EDT 10/18/2024 11:05 PM EDT Hadley Johnson MD POCT ORDERABLES - DEVICE Final Result [facility],PULMONARY LAB [address] [place] [address], [facility],Pulmonary Lab [address] [place], [place] * (ABNORMAL) Urinalysis with Reflex to Microscopic and Culture (10/18/2024 5:26 PM EDT) Color Yellow 10/18/2024 9:15 PM EDT [facility] Clarity Clear 10/18/2024 9:15 PM EDT [facility] Specific [place] 1.016 1.003 - 1.030 10/18/2024 9:15 PM EDT [facility] pH 5.0 5.0 - 8.0 10/18/2024 9:15 PM EDT [facility] Leukocyte Esterase Negative Negative 10/18/2024 9:15 PM EDT [facility] Nitrite Negative Negative 10/18/2024 9:15 PM EDT [facility] Protein Large (300 mg/dL)(A) Negative 10/18/2024 9:15 PM EDT [facility] Glucose Moderate 0 - 99 mg/dL 10/18/2024 9:15 PM EDT [facility] Ketones Negative Negative 10/18/2024 9:15 PM EDT [facility] Blood Large(A) Negative 10/18/2024 9:15 PM EDT [facility] Urobilinogen 0.2 0.2 - 1.0 EU/dL 10/18/2024 9:15 PM EDT [facility] Bilirubin Negative Negative 10/18/2024 9:15 PM EDT [facility] WBC 9(H) 0 - 4 per hpf 10/18/2024 9:15 PM EDT [facility] RBC 50(H) 0 - 4 per hpf 10/18/2024 9:15 PM EDT [facility] Bacteria Negative Negative 10/18/2024 9:15 PM EDT [facility] Squamous Epithelial Cells 2 per hpf 10/18/2024 9:15 PM EDT [facility] Hyaline Casts 1 0 - 4 per lpf 10/18/2024 9:15 PM EDT [facility] Yeast Absent Absent 10/18/2024 9:15 PM EDT [facility] Urine Urine specimen obtained by clean catch procedure / Unknown 10/18/2024 5:26 PM EDT 10/18/2024 8:56 PM EDT us Hadley Johnson MD MICROBIOLOGY - GENERAL ORDERABL ES Final Result [facility] [address] [place] [address], * Legionella & Streptococcus Pneumoniae Antigen, Urine [...] PM EDT Hadley Johnson MD URINE ORDERABLES Final Result Performing Organization Address [facility]/ZIP Co de Phone Number [facility] [address] [place] [address], [place] * Protein/Creatinine Ratio Panel, Urine (10/18/2024 5:26 PM EDT) Protein Urine, Random 338 mg/dL 10/18/2024 10:06 PM EDT [facility] Comment:Reference range not established for random specimen. Creatinine, Urine, Random 114 mg/dL 10/18/2024 9:30 PM EDT [facility] Comment:Reference range not established for random specimen. Protein/Creatini ne Ratio, Urine 2.96 10/18/2024 10:06 PM EDT [facility] Urine Urine specimen / Unknown 10/18/2024 5:26 PM EDT 10/18/2024 8:57 PM EDT us Hadley Johnson MD URINE ORDERABLES Final Result Performing Organization Address City/[facility]/ZIP Co de Phone Number [facility] [address] [place] [address], [place] * CT Chest/abdomen+pelvis w/o contrast (10/18/2024 [...] nodule Hadley Johnson MD IMG CT ORDERABLES Final Result * CR Chest Archive for Reference only (10/18/2024 3:59 PM EDT) Pina BEAVERS - 10/18/2024 3:59 PM EDT This study has been auto finalized and does not contain a result. File Room Provider IMG DIGITIZE FILMS Final Resu lt NIMESH [phone] * (ABNORMAL) PTH, Intact (10/18/2024 3:00 PM EDT) PTH, Intact 755(H) 18 - 80 pg/mL 10/18/2024 4:18 PM EDT [facility] Blood Blood specimen / Unknown 10/18/2024 3:00 PM EDT 10/18/2024 3:39 PM EDT Hadley Johnson MD LAB BLOOD ORDERABLES Final Resu lt [facility] [address] [place] [address], [place] * Nasal MRSA Screen, PCR (10/18/2024 2:45 PM EDT) MRSA Result Not Detected Not Detected 4:16 PM EDT [facility] Swab, Anterior Nares Specimen from nose / Unknown 10/18/2024 2:45 PM EDT 10/18/2024 2:58 PM EDT us Hadley Johnson MD MICROBIOLOGY - GENERAL ORDERABL [place] [address], [place] * Lactic Acid, Plasma (STAT) (10/18/2024 1:43 PM EDT) Lactic Acid 1.2 0.5 - 1.9 mmol/L 10/18/2024 2:11 PM EDT [facility] Blood Blood specimen / Unknown 10/18/2024 1:43 PM EDT 10/18/2024 1:49 PM EDT us Hadley Johnson MD LAB BLOOD ORDERABLES Final Resu lt Performing Organization Address [facility]/ZIP [place] [address], [place] * Blood Culture (10/18/2024 12:11 PM EDT) Only the most recent of2 resultswithin the time period is included. Culture Sterile after 5 days 10/23/2024 7:06 AM EDT [facility] Blood Blood specimen / Unknown 10/18/2024 12:11 PM EDT 10/18/2024 12:42 PM EDT Comment:Blood us Hadley Johnson MD LAB BLOOD ORDERABLES Final Resu lt [facility] [address] [place] [address], [place] * (ABNORMAL) B-Hydroxybutyrate (10/18/2024 12:09 PM EDT) B-Hydroxybutyrate 0.30(H) <0.28 mmol/L 10/18/2024 2:02 PM EDT [facility] Comment: In the presence of uncontrolled diabetes, [...] MD LAB BLOOD ORDERABLES Final Resu lt [facility] [address] [place] [address], from Last 3 Months Insurance [employer] Advance Directives * Full Code (Latest Code Status on File) Date Activated Date Inactivated Comments 10/18/2024 11:07 AM
--- OUTSIDE RECORDS SUMMARY | 2024-11-21 12:37 | XMS_ITS | Data Portability ---
Author Organization [facility], Main Office Address [address] [place] [address] [address] [place] [address] Care Team Providers Care Chief Of Party Name Role Phone [facility] Rehab JESUS RUBIO Phys. Med. & Rehab JONNA BATRES Crab Backer [facility] Airplane Gastank Liner Assembler RAHUL DIAL Market Development Executive CARLOS MARTÍNEZ Drawbridge Operator SANDEE ARRIAGA Director Of Assisted Living [phone] PEE JOHNSON Addiction Professional VIVI DE Primary Care Provider ARA HOGUE Urologist Assessment Encounter Date Assessment Date Assessment LastModified [...] and to maintain regular follow-up with his framing consultant. His recent fever and upper respiratory symptoms [...] Lab BMP, serum or plasma 2024 025 [facility], [address] [place] [address], [address], 11/14/2024 09:34:50 urinal ysis comple te, reflex cultur e 2024 025 [facility], [address] [place] [address], [address], 11/14/2024 09:34:50 Hepati tis C IgG Ab, qual, serum 2024 025 [facility], [address] [place] [address], [address], 11/14/2024 09:34:50 HBsAg (hepat itis B surfac e Ag), EIA, serum 2024 025 [facility], [address] [place] [address], [address], 11/14/2024 09:34:50 HIV 1 + 2, meanin gful use set 2024 025 [facility], [address] [place] [address], [address], 11/14/2024 09:34:50 trepon omer pallid um IgG + IgM Ab, QL, IA, serum 2024 025 [facility], [address] [place] [address], [address], 11/21/2024 04:03:07 CT + NG RNA, PCR, unspec ified specim en 2024 025 [facility], [address] [place] [address], [address], 11/21/2024 04:03:07 hepati tis B core IgM Ab, qual, serum or plasma 2024 025 [facility], [address] [place] [address], [place], [address], 11/21/2024 04:03:07 urinal ysis comple te, reflex cultur e 2024 025 [facility], [address] [place] [address], [address], 11/02/2024 10:51:56 CBC w/ auto diff 2024 025 [email or web address], [address] [place] [address], [address], 11/02/2024 10:51:56 CMP, serum or plasma 2024 025 [facility], [address] [place] [address], [address], 11/14/2024 11:41:53 procal citoni n, serum 2024 025 [facility], [address] [place] [address], [address], 11/02/2024 10:51:56 cultur e, blood 2024 025 [facility], [address] [place] [address], [address], 11/15/2024 12:08:31 pro BNP (pro B-type natriu retic peptid e), serum or plasma 2024 025 [facility], [address] [facility], [place], [address], 11/02/2024 10:51:56 uric acid, serum or plasma 2024 025 [facility], [address], [address], [place], [address], 09/11/2024 16:05:42 alkali ne phosph atase, serum [...] or plasma 2024 025 [facility], [address], [address], [place], [address], 09/11/2024 16:05:35 TSH, ultra- sensit erik, serum 2024 025 [facility] (Centralized Electronic Ordering - All Locations), Patient Can Go To The Location Of Their Choice, 09/11/2024 16:05:41 magnes ium, serum or plasma 2024 025 [facility], [address], [address], [place], [address], 09/11/2024 16:05:44 potass ium, serum or plasma 2024 025 [facility] (Centralized Electronic Ordering - All Locations), Patient Can Go To The Location Of Their Choice, 09/11/2024 16:05:43 lipid panel, serum 2024 025 [email or web address] s [facility], [address], [address], [place], [address], 09/02/2024 15:30:39 albumi n/crea tinine , mass ratio, urine 2024 025 [facility]), Patient Can Go To The Location Of Their Choice, 09/11/2024 16:05:37 ferrit in, serum or plasma 2024 025 [facility], [address], [address], [place], [address], 09/11/2024 16:05:44 retic count, blood 2024 025 [facility], [address], [address], [place], [address], 09/11/2024 16:05:45 CBC w/ auto diff 2024 025 [facility], [address], [address], [place], [address], 09/11/2024 16:05:34 iron + total iron-b inding capaci ty (TIBC) , serum 2024 025 [facility], [address], [address], [place], [address], 09/11/2024 16:05:36 transf johnathan recept or, solubl e, quant, serum 2024 025 [facility]), Patient Can Go To The Location Of Their Choice, 09/11/2024 16:05:40 cobala min and folate panel, serum 2024 025 [facility] - [facility]), Patient [...] peptid e), serum or plasma 2024 025 [place] [facility] [facility] (Centralized Electronic Ordering - All Locations), Patient Can Go To The Location Of Their Choice, 08/04/2024 08:08:30 urinal ysis comple te, reflex cultur e 2024 025 [place] [facility] (Centralized Electronic Ordering - All Locations), Patient Can Go To The Location Of Their Choice, 08/04/2024 08:08:29 Referral wound care referr al 2023 024 odalis gibbs [facility], [address] [place] [address] [place], [address], 06/11/2024 11:10:30 Procedures None record ed. Surgeries None record ed. Imaging CT, abdome n + pelvis , w/o contra st 2024 025 [facility] ([facility]), [address] [facility] [place], [address], 11/17/2024 15:57:36 XR, chest, 2 view 2024 025 [facility] (Im[facility]), [address] [facility] [place], [address], 11/16/2024 11:26:23 Medication Orders cefpod oxime 200 mg tablet 2024 025 [facility], [address] [place], [address], 11/14/2024 08:32:43 Zithro max Z-Jase 250 mg tablet 2024 025 [facility], [address] [place], [address], 11/02/2024 10:50:49 amlodi pine 10 mg tablet 2024 025 [facility], [phone] [place] [address], [address], 08/22/2024 17:21:09 furose mide 20 mg tablet 2024 025 [facility], [phone] [place], [address], 08/22/2024 15:27:40 Patient TargetsNo targets recorded. Patient Instructions Encounter Date Encounter Id Patient Instructions Last Modified By Organization Details Last Modified Time 08/03/2024 [id number] leg and ankle edema: care instructions [email or web address] Not available 08/03/2024 15:12:18 08/22/2024 [id number] gout: care instructions [email or web address] Not available 08/22/2024 [...] instructions [email or web address] Not available 08/22/2024 17:17:19 11/02/2024 [id number] At [facility] follow up visit, all current and discharge medications (OTC, herbal therapies, supplements) reviewed and reconciled with patient and or caregiver, including potential side effects, drug interactions, instructions, and the consequences of not taking medication. Reviewed potential barriers to medication adherence, such as side effects from medication or cost of medication. [email or web address] Not available 11/02/2024 10:50:48 11/14/2024 [id number] learning about fever beryl Not available 11/14/2024 10:32:51 At [facility] follow up visit, all [...] Abnormal Flag Note LastModifiedBy Organization Detail LastModifiedTime 11/16/1911/18/2024 CBC w/ auto diff sodium 142 Not Available [facility] (Medical Records) [address] [place] [address], [address], 11/15/2024 10:25:56 11/16/19 25 11/18/2024 CBC w/ auto diff potassium 4.9 Not Available [facility] (Medical Records) [address] [place] [address], [address], 11/15/2024 10:25:56 11/16/19 25 11/18/2024 CBC w/ auto diff BUN 38 Not Available [facility] (Medical Records) [address] [place] [address], [address], 11/15/2024 10:25:56 11/16/19 25 11/18/2024 CBC w/ auto diff creatinine 4.19 Not Available [facility] (Medical Records) [address] [place], [address], 11/15/2024 10:25:56 11/16/19 25 11/18/2024 CBC w/ auto diff glucose 144 Not Available [facility] (Medical Records) [address] [place], [address], 11/15/2024 10:25:56 11/16/19 25 11/18/2024 CBC w/ auto diff WBC 5.2 Not Available [facility] (Medical Records) [address] [place], [address], 11/15/2024 10:25:56 11/16/19 25 11/18/2024 CBC w/ auto diff RBC 3.50 Not Available [facility] (Medical Records) [address] [place], [address], 11/15/2024 10:25:56 11/16/19 25 11/18/2024 CBC w/ auto diff HGB 10.3 Not Available [facility] (Medical Records) [address] [place], [address], 11/15/2024 10:25:56 11/16/19 25 11/18/2024 CBC w/ auto diff HCT 33.1 Not Available [facility] (Medical Records) [address] [place], [address], 11/15/2024 10:25:56 11/16/19 25 11/18/2024 CBC w/ auto diff plt 195 Not Available [facility] (Medical Records) [address] [place], [address], 11/15/2024 10:25:56 11/16/19 25 11/18/2024 urina lysis , compl ete sodium 142 Not Available [facility] (Medical Records) [address] [place], [address], 11/15/2024 10:25:01 11/16/19 25 11/18/2024 urina lysis , compl ete potassium 4.9 Not Available [facility] (Medical Records) [address] [place], [address], 11/15/2024 10:25:01 11/16/19 25 11/18/2024 urina lysis , compl ete glucose 144 Not Available [facility] (Medical Records) [address] [place], [address], 11/15/2024 10:25:01 11/16/19 25 11/18/2024 urina lysis , compl ete BUN 38 Not Available [facility] (Medical Records) [address] [place], [address], 11/15/2024 10:25:01 11/16/19 25 11/18/2024 urina lysis , compl ete creatinine 4.19 Not Available [facility] (Medical Records) [address] [place] [address], [address], 11/15/2024 10:25:01 11/16/19 25 11/18/2024 urina lysis , compl ete WBC 5.2 Not Available [facility] (Medical Records) [address] [place] [address], [address], 11/15/2024 10:25:01 11/16/19 25 11/18/2024 urina lysis , compl ete RBC 3.50 Not Available [facility] (Medical Records) [address] [place] [address], [address], 11/15/2024 10:25:01 11/16/19 25 11/18/2024 urina lysis , compl ete HGB 10.3 Not Available [facility] (Medical Records) [address] [place], [address], 11/15/2024 10:25:01 11/16/19 25 11/18/2024 urina lysis , compl ete HCT 33.1 Not Available [facility] (Medical Records) [address] [place], [address], 11/15/2024 10:25:01 11/16/19 25 11/18/2024 urina lysis , compl ete plt 195 Not Available [facility] (Medical Records) [address] [place], [address], 11/15/2024 10:25:01 11/16/19 25 11/18/2024 CBC w/ auto diff sodium 142 Not Available [facility] (Medical Records) [address] [place], [address], 11/15/2024 10:25:01 11/16/19 25 11/18/2024 CBC w/ auto diff potassium 4.9 Not Available [facility] (Medical Records) [address] [place], [address], 11/15/2024 10:25:01 11/16/19 25 11/18/2024 CBC w/ auto diff glucose 144 Not Available [facility] (Medical Records) [address] [place], [address], 11/15/2024 10:25:01 11/16/19 25 11/18/2024 CBC w/ auto diff BUN 38 Not Available [facility] (Medical Records) [address] [place], [address], 11/15/2024 10:25:01 11/16/19 25 11/18/2024 CBC w/ auto diff creatinine 4.19 Not Available [facility] (Medical Records) [address] [place], [address], 11/15/2024 10:25:01 11/16/19 25 11/18/2024 CBC w/ auto diff WBC 5.2 Not Available [facility] (Medical Records) [address] [place], [address], 11/15/2024 10:25:01 11/16/19 25 11/18/2024 CBC w/ auto diff RBC 3.50 Not Available [facility] (Medical Records) [address] [place], [address], 11/15/2024 10:25:01 11/16/19 25 11/18/2024 CBC w/ auto diff HGB 10.3 Not Available [facility] (Medical Records) [address] [place], [address], 11/15/2024 10:25:01 11/16/19 25 11/18/2024 CBC w/ auto diff HCT 33.1 Not Available [facility] (Medical Records) [address] [place], [address], 11/15/2024 10:25:01 11/16/19 25 11/18/2024 CBC w/ auto diff plt 195 Not Available [facility] (Medical Records) [address] [place], [address], 11/15/2024 10:25:01 08/03/19 25 08/04/2024 COMP. METAB OLIC PANEL (14) glucose 180 mg/dL 70-99 above high normal Not Available [facility] ([facility]) [address] [place], [address], 08/04/2024 08:08:28 08/03/19 25 08/04/2024 COMP. METAB OLIC PANEL (14) BUN 40 mg/dL 8-27 above high normal Not Available [facility] ([facility]) [address] [place], [address], 08/04/2024 08:08:28 08/03/19 25 08/04/2024 COMP. METAB OLIC PANEL (14) creatinine 3.46 mg/dL 0.76-1 .27 above high normal Not Available [facility] ([facility]) [address] [place], [address], 08/04/2024 08:08:28 08/03/19 25 08/04/2024 COMP. METAB OLIC PANEL (14) eGFR 18 mL/mi n/1.7 3 >59 below low normal Not Available [facility] ([facility]) [address] [facility] [place], [address], 08/04/2024 08:08:28 08/03/19 25 08/04/2024 COMP. METAB OLIC PANEL (14) BUN/creatini ne ratio 12 10-24 normal Not Available [facility] ([facility]) [address] [facility] [place], [address], 08/04/2024 08:08:28 08/03/19 25 08/04/2024 COMP. METAB OLIC PANEL (14) sodium 145 mmol/ L 134-14 4 above high normal Not Available [facility] ([facility]) [address] [facility] [place], [address], 08/04/2024 08:08:28 08/03/19 25 08/04/2024 COMP. METAB OLIC PANEL (14) potassium 5.4 mmol/ L 3.5-5. 2 above high normal Not Available [facility] ([facility]) [address] [facility] [place], [address], 08/04/2024 08:08:28 08/03/19 25 08/04/2024 COMP. METAB OLIC PANEL (14) chloride 111 mmol/ L 96-106 above high normal Not Available [facility] ([facility]) [address] [place], [address], 08/04/2024 08:08:28 08/03/19 25 08/04/2024 COMP. METAB OLIC PANEL (14) carbon dioxide, total 19 mmol/ L 20-29 below low normal Not Available [facility] ([facility]) [address] [facility] [place], [address], 08/04/2024 08:08:28 08/03/19 25 08/04/2024 COMP. METAB OLIC PANEL (14) calcium 8.1 mg/dL 8.6-10 .2 below low normal Not Available [facility] ([facility]) [address] [place], [address], 08/04/2024 08:08:28 08/03/19 25 08/04/2024 COMP. METAB OLIC PANEL (14) protein, total 6.3 g/dL 6.0-8. 5 normal Not Available [facility] ([facility]) [address] [place], [address], 08/04/2024 08:08:28 08/03/19 25 08/04/2024 COMP. METAB OLIC PANEL (14) albumin 3.3 g/dL 3.8-4. 8 below low normal Not Available [facility] ([facility]) [address] [place], [address], 08/04/2024 08:08:28 08/03/19 25 08/04/2024 COMP. METAB OLIC PANEL (14) globulin, total 3.0 g/dL 1.5-4. 5 Not Available [facility] ([facility]) [address] [place], [address], 08/04/2024 08:08:28 08/03/19 25 08/04/2024 COMP. METAB OLIC PANEL (14) bilirubin, total <0.2 mg/dL 0.0-1. 2 Not Available [facility] ([facility]) [address] [facility] [place], [address], 08/04/2024 08:08:28 08/03/19 25 08/04/2024 COMP. METAB OLIC PANEL (14) alkaline phosphatase 182 IU/L 44-121 above high normal Not Available [facility] ([facility]) [address] [place], [address], 08/04/2024 08:08:28 08/03/19 25 08/04/2024 COMP. METAB OLIC PANEL (14) AST (SGOT) 20 IU/L 0-40 normal Not Available [facility] ([facility]) [address] [facility] [place], [address], 08/04/2024 08:08:28 08/03/19 25 08/04/2024 COMP. METAB OLIC PANEL (14) ALT (SGPT) 16 IU/L 0-44 normal Not Available [facility] ([facility]) [address] [facility], [place], [address], 08/04/2024 08:08:28 08/03/19 25 08/04/2024 UA/M W/RFL X CULTU RE, ROUTI NE specific gravity 1.018 1.005- 1.030 normal Not Available [facility] ([facility]) [address] [facility] [place], [address], 08/04/2024 08:08:29 08/03/19 25 08/04/2024 UA/M W/RFL X CULTU RE, ROUTI NE pH 6.5 5.0-7. 5 normal Not Available [facility] ([facility]) [address] [facility] [place], [address], 08/04/2024 08:08:29 08/03/19 25 08/04/2024 UA/M W/RFL X CULTU RE, ROUTI NE urine-color Yellow yellow Not Available [facility] ([facility]) [address] [facility] [place], [address], 08/04/2024 08:08:29 08/03/19 25 08/04/2024 UA/M W/RFL X CULTU RE, ROUTI NE appearance Clear clear Not Available [facility] ([facility]) [address] [facility], [address], 08/04/2024 08:08:29 08/03/19 25 08/04/2024 UA/M W/RFL X CULTU RE, ROUTI NE WBC esterase Negati ve negati ve Not Available [facility] ([facility]) [address] [place], [address], 08/04/2024 08:08:29 08/03/19 25 08/04/2024 UA/M W/RFL X CULTU RE, ROUTI NE protein 4+ negati ve/tra ce abnormal Not Available [facility] ([facility]) [address] [place], [address], 08/04/2024 08:08:29 08/03/19 25 08/04/2024 UA/M W/RFL X CULTU RE, ROUTI NE glucose 2+ negati ve abnormal Not Available [facility] ([facility]) [address] [place], [address], 08/04/2024 08:08:29 08/03/19 25 08/04/2024 UA/M W/RFL X CULTU RE, ROUTI NE ketones Negati ve negati ve Not Available [facility] ([facility]) [address] [place], [address], 08/04/2024 08:08:29 08/03/1908/04/2024 UA/M W/RFL X CULTU RE, ROUTI NE occult blood Trace negati ve abnormal Not Available [facility] ([facility]) [address] [place], [address], 08/04/2024 08:08:29 08/03/1908/04/2024 UA/M W/RFL X CULTU RE, ROUTI NE bilirubin Negati ve negati ve Not Available [facility] ([facility]) [address] [place], [address], 08/04/2024 08:08:29 08/03/19 25 08/04/2024 UA/M W/RFL X CULTU RE, ROUTI NE urobilinogen ,semi-qn 0.2 mg/dL 0.2-1. 0 normal Not Available [facility] ([facility]) [address] [place], [address], 08/04/2024 08:08:29 08/03/19 25 08/04/2024 UA/M W/RFL X CULTU RE, ROUTI NE nitrite, urine Negati ve negati ve Not Available [facility] ([facility]) [address] [facility], [place], [address], 08/04/2024 08:08:29 08/03/19 25 08/04/2024 UA/M W/RFL X CULTU RE, ROUTI NE microscopic examination See below: Micro scopi c was indic ated and was perfo rmed. Not Available [facility] ([facility]) [address] [place], [address], 08/04/2024 08:08:29 08/03/19 25 08/04/2024 UA/M W/RFL X CULTU RE, ROUTI NE WBC 0-5 /hpf 0 - 5 Not Available [facility] ([facility]) [address] [facility], [place], [address], 08/04/2024 08:08:29 08/03/19 25 08/04/2024 UA/M W/RFL X CULTU RE, ROUTI NE RBC None seen /hpf 0 - 2 Not Available [facility] ([facility]) [address] [place], [address], 08/04/2024 08:08:29 08/03/19 25 08/04/2024 UA/M W/RFL X CULTU RE, ROUTI NE epithelial cells (non renal) None seen /hpf 0 - 10 Not Available [facility] ([facility]) [address] [place], [address], 08/04/2024 08:08:29 08/03/19 25 08/04/2024 UA/M W/RFL X CULTU RE, ROUTI NE epithelial cells (renal) [employer]EMAKER Not Available [facility] ([facility]) [address] [place], [address], 08/04/2024 08:08:29 08/03/19 25 08/04/2024 UA/M W/RFL X CULTU RE, ROUTI NE casts None seen /lpf none seen Not Available [facility] ([facility]) [address], [place], [address], 08/04/2024 08:08:29 08/03/19 25 08/04/2024 UA/M W/RFL X CULTU RE, ROUTI NE cast type [employer] SHOEMAKER Not Available [facility] ([facility]) [address] [facility], [place], [address], 08/04/2024 08:08:29 08/03/19 25 08/04/2024 UA/M W/RFL X CULTU RE, ROUTI NE crystals [employer] SHOEMAKER Not Available [facility] ([facility]) [address] [facility], [place], [address], 08/04/2024 08:08:29 08/03/19 25 08/04/2024 UA/M W/RFL X CULTU RE, ROUTI NE crystal type [employer] GRADE SHOEMAKER Not Available [facility] ([facility]) [address] [facility], [place], [address], 08/04/2024 08:08:29 08/03/19 25 08/04/2024 UA/M W/RFL X CULTU RE, ROUTI NE mucus threads [employer] SHOEMAKER Not Available [facility] ([facility]) [address] [facility], [place], [address], 08/04/2024 08:08:29 08/03/19 25 08/04/2024 UA/M W/RFL X CULTU RE, ROUTI NE bacteria None seen none seen/f ew Not Available [facility] ([facility]) [address] [facility], [place], [address], 08/04/2024 08:08:29 08/03/19 25 08/04/2024 UA/M W/RFL X CULTU RE, ROUTI NE yeast [employer] SHOEMAKER Not Available [facility] ([facility]) [address] [facility], [place], [address], 08/04/2024 08:08:29 08/03/19 25 08/04/2024 UA/M W/RFL X CULTU RE, ROUTI NE trichomonas [employer]OEM[employer]ER Not Available [facility] ([facility]) [address] [facility], [place], [address], 08/04/2024 08:08:29 08/03/19 25 08/04/2024 UA/M W/RFL X CULTU RE, ROUTI NE comment [employer] SHOEM[employer]ER Not Available [facility] ([facility]) [address] [facility], [place], [address], 08/04/2024 08:08:29 08/03/19 25 08/04/2024 UA/M W/RFL X CULTU RE, ROUTI NE microscopic examination [employer] SHOEM[employer]ER Not Available [facility]) [address] [facility], [place], [address], 08/04/2024 08:08:29 08/03/1908/04/2024 UA/M W/RFL X CULTU RE, ROUTI NE urinalysis reflex Commen t This speci men will not refle x to a Urine Cultu re. Not Available [facility] ([facility]) [address] [facility], [place], [address], 08/04/2024 08:08:29 08/03/1908/04/2024 B-TYP E NATRI URETI C PEPTI DE B-type natriuretic peptide 145.8 pg/mL 0.0-10 0.0 above high normal Sieme ns [facility] metho dolog y Not Available [facility] ([facility]) [address] [facility], [place], [address], 08/04/2024 08:08:30 09/08/19 25 09/08/2024 CBC WITH DIFFE RENTI AL/PL ATELE T WBC 7.8 x10e3 /uL 3.4-10 .8 normal Not Available [facility] ([facility]) [address] [place], [address], 09/11/2024 16:05:34 09/08/19 25 09/08/2024 CBC WITH DIFFE RENTI AL/PL ATELE T RBC 3.50 x10e6 /uL 4.14-5 .80 below low normal Not Available [facility] ([facility]) [address] [place], [address], 09/11/2024 16:05:34 09/08/19 25 09/08/2024 CBC WITH DIFFE RENTI AL/PL ATELE T hemoglobin 11.1 g/dL 13.0-1 7.7 below low normal Not Available [facility] ([facility]) [address] [place], [address], 09/11/2024 16:05:34 09/08/19 25 09/08/2024 CBC WITH DIFFE RENTI AL/PL ATELE T hematocrit 33.3 % 37.5-5 1.0 below low normal Not Available [facility] ([facility]) [address] [place], [address], 09/11/2024 16:05:34 09/08/19 25 09/08/2024 CBC WITH DIFFE RENTI AL/PL ATELE T MCV 95 fL 79-97 normal Not Available [facility] ([facility]) [address] [place], [address], 09/11/2024 16:05:34 09/08/19 25 09/08/2024 CBC WITH DIFFE RENTI AL/PL ATELE T MCH 31.7 pg 26.6-3 3.0 normal Not Available [facility] ([facility]) [address] [place], [address], 09/11/2024 16:05:34 09/08/19 25 09/08/2024 CBC WITH DIFFE RENTI AL/PL ATELE T MCHC 33.3 g/dL 31.5-3 5.7 normal Not Available [facility] ([facility]) [address] [facility], [place], [address], 09/11/2024 16:05:34 09/08/19 25 09/08/2024 CBC WITH DIFFE RENTI AL/PL ATELE T RDW 14.0 % 11.6-1 5.4 Not Available [facility] ([facility]) [address] [facility], [place], [address], 09/11/2024 16:05:34 09/08/19 25 09/08/2024 CBC WITH DIFFE RENTI AL/PL ATELE T platelets 233 x10e3 /uL 150-45 0 normal Not Available [facility] ([facility]) [address] [facility], [place], [address], 09/11/2024 16:05:34 09/08/19 25 09/08/2024 CBC WITH DIFFE RENTI AL/PL ATELE T neutrophils 68 % not estab. normal Not Available [facility] ([facility]) [address] [facility], [place], [address], 09/11/2024 16:05:34 09/08/19 25 09/08/2024 CBC WITH DIFFE RENTI AL/PL ATELE T lymphs 18 % not estab. normal Not Available [facility] ([facility]) [address] [place], [address], 09/11/2024 16:05:34 09/08/19 25 09/08/2024 CBC WITH DIFFE RENTI AL/PL ATELE T monocytes 9 % not estab. normal Not Available [facility] ([facility]) [address] [facility], [place], [address], 09/11/2024 16:05:34 09/08/19 25 09/08/2024 CBC WITH DIFFE RENTI AL/PL ATELE T eos 4 % not estab. normal Not Available [facility] ([facility]) [address] [facility], [place], [address], 09/11/2024 16:05:34 09/08/19 25 09/08/2024 CBC WITH DIFFE RENTI AL/PL ATELE T basos 0 % not estab. normal Not Available [facility] ([facility]) [address] [facility], [place], [address], 09/11/2024 16:05:34 09/08/19 25 09/08/2024 CBC WITH DIFFE RENTI AL/PL ATELE T immature cells [employer] SHOEMAKER Not Available [facility] ([facility]) [address] [facility], [place], [address], 09/11/2024 16:05:34 09/08/19 25 09/08/2024 CBC WITH DIFFE RENTI AL/PL ATELE T neutrophils (absolute) 5.3 x10e3 /uL 1.4-7. 0 normal Not Available [facility] ([facility]) [address] [place], [address], 09/11/2024 16:05:34 09/08/19 25 09/08/2024 CBC WITH DIFFE RENTI AL/PL ATELE T lymphs (absolute) 1.4 x10e3 /uL 0.7-3. 1 normal Not Available [facility] ([facility]) [address] [place], [address], 09/11/2024 16:05:34 09/08/19 25 09/08/2024 CBC WITH DIFFE RENTI AL/PL ATELE T monocytes(ab solute) 0.7 x10e3 /uL 0.1-0. 9 normal Not Available [facility] ([facility]) [address] [place], [address], 09/11/2024 16:05:34 09/08/19 25 09/08/2024 CBC WITH DIFFE RENTI AL/PL ATELE T eos (absolute) 0.3 x10e3 /uL 0.0-0. 4 normal Not Available [facility] ([facility]) [address] [facility], [place], [address], 09/11/2024 16:05:34 09/08/19 25 09/08/2024 CBC WITH DIFFE RENTI AL/PL ATELE T baso (absolute) 0.0 x10e3 /uL 0.0-0. 2 normal Not Available [facility] ([facility]) [address] [facility], [place], [address], 09/11/2024 16:05:34 09/08/19 25 09/08/2024 CBC WITH DIFFE RENTI AL/PL ATELE T immature granulocytes 1 % not estab. Not Available [facility] ([facility]) [address] [place], [address], 09/11/2024 16:05:34 09/08/19 25 09/08/2024 CBC WITH DIFFE RENTI AL/PL ATELE T immature grans (abs) 0.1 x10e3 /uL 0.0-0. 1 Not Available [facility] ([facility]) [address] [place], [address], 09/11/2024 16:05:34 09/08/19 25 09/08/2024 CBC WITH DIFFE RENTI AL/PL ATELE T NRBC [employer]OEMAKER Not Available [facility] ([facility]) [address] [place], [address], 09/11/2024 16:05:34 09/08/19 25 09/08/2024 CBC WITH DIFFE RENTI AL/PL ATELE T hematology comments: [employer] GRADE SHOEMAKER Not Available [facility] ([facility]) [address] [place], [address], 09/11/2024 16:05:34 09/08/19 25 09/08/2024 COMP. METAB OLIC PANEL (14) glucose 197 mg/dL 70-99 above high normal Not Available [facility] ([facility]) [address] [place], [address], 09/11/2024 16:05:35 09/08/19 25 09/08/2024 COMP. METAB OLIC PANEL (14) BUN 50 mg/dL 8-27 above high normal Not Available [facility] ([facility]) [address] [place], [address], 09/11/2024 16:05:35 09/08/19 25 09/08/2024 COMP. METAB OLIC PANEL (14) creatinine 3.72 mg/dL 0.76-1 .27 above high normal Not Available [facility] ([facility]) [address] [place], [address], 09/11/2024 16:05:35 09/08/19 25 09/08/2024 COMP. METAB OLIC PANEL (14) eGFR 17 mL/mi n/1.7 3 >59 below low normal Not Available [facility] ([facility]) [address] [place], [address], 09/11/2024 16:05:35 09/08/19 25 09/08/2024 COMP. METAB OLIC PANEL (14) BUN/creatini ne ratio 13 10-24 normal Not Available [facility] ([facility]) [address] [place], [address], 09/11/2024 16:05:35 09/08/19 25 09/08/2024 COMP. METAB OLIC PANEL (14) sodium 140 mmol/ L 134-14 4 normal Not Available [facility] ([facility]) [address] [place], [address], 09/11/2024 16:05:35 09/08/19 25 09/08/2024 COMP. METAB OLIC PANEL (14) potassium 5.6 mmol/ L 3.5-5. 2 above high normal Not Available [facility] ([facility]) [address] [place], [address], 09/11/2024 16:05:35 09/08/19 25 09/08/2024 COMP. METAB OLIC PANEL (14) chloride 109 mmol/ L 96-106 above high normal Not Available [facility] ([facility]) [address] [place], [address], 09/11/2024 16:05:35 09/08/19 25 09/08/2024 COMP. METAB OLIC PANEL (14) carbon dioxide, total 16 mmol/ L 20-29 below low normal Not Available [facility] ([facility]) [address] [place], [address], 09/11/2024 16:05:35 09/08/19 25 09/08/2024 COMP. METAB OLIC PANEL (14) calcium 8.6 mg/dL 8.6-10 .2 normal Not Available [facility] ([facility]) [address] [place], [address], 09/11/2024 16:05:35 09/08/19 25 09/08/2024 COMP. METAB OLIC PANEL (14) protein, total 6.9 g/dL 6.0-8. 5 normal Not Available [facility] ([facility]) [address] [place], [address], 09/11/2024 16:05:35 09/08/19 25 09/08/2024 COMP. METAB OLIC PANEL (14) albumin 3.8 g/dL 3.8-4. 8 normal Not Available [facility] ([facility]) [address] [place], [address], 09/11/2024 16:05:35 09/08/19 25 09/08/2024 COMP. METAB OLIC PANEL (14) globulin, total 3.1 g/dL 1.5-4. 5 Not Available [facility] ([facility]) [address] [place], [address], 09/11/2024 16:05:35 09/08/19 25 09/08/2024 COMP. METAB OLIC PANEL (14) bilirubin, total 0.3 mg/dL 0.0-1. 2 normal Not Available [facility] ([facility]) [address] [place], [address], 09/11/2024 16:05:35 09/08/19 25 09/08/2024 COMP. METAB OLIC PANEL (14) alkaline phosphatase 225 IU/L 44-121 above high normal Not Available [facility] ([facility]) [address] [place], [address], 09/11/2024 16:05:35 09/08/19 25 09/08/2024 COMP. METAB OLIC PANEL (14) AST (SGOT) 17 IU/L 0-40 normal Not Available [facility] ([facility]) [address] [facility], [place], [address], 09/11/2024 16:05:35 09/08/19 25 09/08/2024 COMP. METAB OLIC PANEL (14) ALT (SGPT) 18 IU/L 0-44 normal Not Available [facility] ([facility]) [address] [place], [address], 09/11/2024 16:05:35 09/08/19 25 09/09/2024 COMP. METAB OLIC PANEL (14) hemoglobin A1C 7.5 % 4.8-5. 6 above high normal Predi abete s: 5.7 - 6.4 Diabe rocky: >6.4 Glyce mary contr ol for adult s with diabe rocky: <7.0 Not Available [facility] ([facility]) [address] [place], [address], 09/11/2024 16:05:35 09/08/19 25 09/08/2024 LIPID PANEL cholesterol, total 187 mg/dL 100-19 9 normal Not Available [facility] ([facility]) [address] [place], [address], 09/11/2024 16:05:35 09/08/19 25 09/08/2024 LIPID PANEL triglyceride s 121 mg/dL 0-149 normal Not Available [facility] ([facility]) [address] [place], [address], 09/11/2024 16:05:35 09/08/19 25 09/08/2024 LIPID PANEL HDL cholesterol 37 mg/dL >39 below low normal Not Available [facility] ([facility]) [address] [place], [address], 09/11/2024 16:05:35 09/08/19 25 09/08/2024 LIPID PANEL VLDL cholesterol leisa 22 mg/dL 5-40 Not Available [facility] ([facility]) [address] [place], [address], 09/11/2024 16:05:35 09/08/19 25 09/08/2024 LIPID PANEL LDL chol calc ([facility]) 128 mg/dL 0-99 above high normal Not Available [facility] ([facility]) [address] [place], [address], 09/11/2024 16:05:35 09/08/19 25 09/08/2024 LIPID PANEL LDL calc comment: [employer] SHOEMAKER Not Available [facility] ([facility]) [address] [place], [address], 09/11/2024 16:05:35 09/08/19 25 09/09/2024 IRON AND TIBC iron bind.cap.(TI BC) 296 ug/dL 250-45 0 normal Not Available [facility] ([facility]) [address] [place], [address], 09/11/2024 16:05:36 09/08/19 25 09/09/2024 IRON AND TIBC UIBC 196 ug/dL 111-34 3 normal Not Available [facility] ([facility]) [address] [place], [address], 09/11/2024 16:05:36 09/08/19 25 09/09/2024 IRON AND TIBC iron 100 ug/dL 38-169 normal Not Available [facility] ([facility]) [address] [place], [address], 09/11/2024 16:05:36 09/08/19 25 09/09/2024 IRON AND TIBC iron saturation 34 % 15-55 normal Not Available [facility] ([facility]) [address] [place], [address], 09/11/2024 16:05:36 09/08/19 25 09/09/2024 ALBUM IN/CR EATIN INE RATIO ,URIN E creatinine, urine 147.8 mg/dL not estab. normal Not Available [facility] ([facility]) [address] [place], [address], 09/11/2024 16:05:37 09/08/19 25 09/09/2024 ALBUM IN/CR EATIN INE RATIO ,URIN E albumin, urine 6042.6 ug/mL not estab. Resul ts confi rmed on dilut ion. Not Available [facility] ([facility]) [address] [place], [address], 09/11/2024 16:05:37 09/08/19 25 09/09/2024 ALBUM IN/CR EATIN INE RATIO ,URIN E alb/creat ratio 4088 mg/g_ creat 0-29 above high normal Madison l: 0 - 29 Moder ately incre ased: 30 - 300 Sever richard incre ased: >300 Not Available [facility] ([facility]) [address] [place], [address], 09/11/2024 16:05:37 09/08/19 25 09/09/2024 VITAM IN B12 AND FOLAT E vitamin B12 821 pg/mL 232-12 45 normal Not Available [facility] ([facility]) [address] [facility], [place], [address], 09/11/2024 16:05:38 09/08/19 25 09/09/2024 VITAM IN B12 AND FOLAT E folate (folic acid), serum 4.2 NG/mL >3.0 normal A serum folat e asuncion ntrat ion of less than 3.1 ng/mL is consi dered to repre sent clini leisa defic iency . Not Available [facility] ([facility]) [address] [facility], [place], [address], 09/11/2024 16:05:38 09/08/19 25 09/10/2024 CALCI TRIOL (1,25 DI-OH VIT D) calcitriol(1 ,25 di-oh vit D) 31.1 pg/mL 24.8-8 1.5 Not Available [facility] ([facility]) [address] [facility], [place], [address], 09/11/2024 16:05:39 09/08/19 25 09/09/2024 VITAM IN [...] Medic ine). 2010. Dieta ry refer ence intarmando es for calci um and D. Millie caputo [place]: [facility] . 2. Ashly FAJARDO, Chela grey [place], Todd off-F errar i BAILEY, et al. Evalu ation , treat ment, and preve ntion of vitam in D defic iency : an Endoc rine Socie ty clini leisa pract ice guide line. JCEM. 2010; 96(7) :1911 -30. 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 TOR soluble transferrin receptor 25.1 nmol/ L 12.2-2 7.3 Not Available [facility] ([facility]) [address] [facility], [place], [address], 09/11/2024 16:05:40 09/08/19 25 09/08/2024 TSH RFX ON ABNOR MAL TO FREE T4 TSH 2.360 uIU/m L 0.450- 4.500 normal Not Available [facility] ([facility]) [address] [facility], [place], [address], 09/11/2024 16:05:41 09/08/19 25 09/09/2024 GGT WITH REFLE X AMYLA SE/LI PASE GGT 104 IU/L 0-65 above high normal Not Available [facility] ([facility]) [address] [place], [address], 09/11/2024 16:05:41 09/08/19 25 09/09/2024 GGT WITH REFLE X AMYLA SE/LI PASE amylase 79 U/L 31-110 normal Not Available [facility] ([facility]) [address] [place], [address], 09/11/2024 16:05:41 09/08/19 25 09/09/2024 GGT WITH REFLE X AMYLA SE/LI PASE lipase 41 U/L 13-78 normal Not Available [facility] ([facility]) [address] [place], [address], 09/11/2024 16:05:41 09/08/19 25 09/09/2024 URIC ACID uric acid 5.0 mg/dL 3.8-8. 4 normal Thera kimi troncoso t for gout patie nts: <6.0 Not Available [facility] ([facility]) [address] [place], [address], 09/11/2024 16:05:42 09/08/19 25 09/09/2024 POTAS SIUM, HEPAR IN PLASM A potassium, heparin plasma 5.4 mmol/ L 3.5-5. 2 above high normal Not Available [facility] ([facility]) [address] [place], [address], 09/11/2024 16:05:43 09/08/19 25 09/09/2024 MAGNE SIUM magnesium 1.5 mg/dL 1.6-2. 3 below low normal Not Available [facility] ([facility]) [address] [place], [address], 09/11/2024 16:05:44 09/08/19 25 09/08/2024 SHIRA TIN ferritin 155 NG/mL 30-400 normal Not Available [facility] ([facility]) [address] [place], [address], 09/11/2024 16:05:44 09/08/19 25 09/08/2024 RETIC ULOCY TE COUNT reticulocyte count 1.8 % 0.6-2. 6 Not Available [facility] ([facility]) [address] [place], [address], 09/11/2024 16:05:45 09/08/19 25 09/09/2024 PSA TOTAL (REFL EX TO FREE) reflex criteria COMMEN T The perce nt free PSA is perfo rmed on a refle x basis only when the total PSA is betwe en 4.0 and 10.0 ng/mL . Not Available [facility] ([facility]) [address] [place], [address], 09/14/2024 06:08:11 09/08/1909/14/2024 PSA TOTAL (REFL EX [...] t be inter prete d as absol knik evide nce of the prese nce or absen ce of dexter baum se. Not Available [facility] ([facility]) [address] [facility], [place], [address], 09/14/2024 06:08:11 09/08/1909/10/2024 MITOC HONDR IAL (M2) ANTIB GISELL mitochondria l (M2) antibody <20.0 units 0.0-20 .0 Negat erik 0.0 - 20.0 Equiv ocal 20.1 - 24.9 Posit erik >24.9 Mitoc hondr ial (M2) Antib odies are found in 90-96 % of patie nts with prima ry bilia ry cirrh osis. Not Available [facility] ([facility]) [address] [facility], [place], [address], 09/14/2024 06:08:11 09/08/1909/12/2024 KING EN AUTHO RIZAT ION written authorizatio n COMMEN T King en Autho rizat ion Recei max. Autho rizat ion recei max from [facility] RAH DE for Link Reque st on 09-12 Logge d by Kwaku Logan Not Available [facility] ([facility]) [address] [place], [address], 09/21/2024 14:06:26 09/08/1909/09/2024 WRITT EN AUTHO RIZAT ION written authorizatio n COMMEN T Writt en Autho rizat ion Recei max. Autho rizat ion recei max from [facility] RAH BARONFUNMILAYO for Link Reque st on 09-09 Logge d by Kwaku Logan Not Available [facility] ([facility]) [address] [place], [address], 09/14/2024 06:08:12 09/08/19 25 09/19/2024 ALK PHOS ISOEN ZYME alkaline phosphatase COMMEN T IU/L Test not perfo rmed. Deter iorat ion occur red durin g speci men handl ing. Not Available [facility] ([facility]) [address] [facility], [place], [address], 09/21/2024 14:06:25 09/08/1909/21/2024 ALK PHOS ISOEN ZYME liver fraction: COMMEN T % Test not perfo rmed. ALKPH prote in requi red to compl ete testi ng. Not Available [facility] ([facility]) [address] [place], [address], 09/21/2024 14:06:25 09/08/19 25 09/21/2024 ALK PHOS ISOEN ZYME bone fraction: COMMEN T % Test not perfo rmed. ALKPH prote in requi red to compl ete testi ng. Not Available [facility] ([facility]) [address] [place], [address], 09/21/2024 14:06:25 09/08/19 25 09/21/2024 ALK PHOS ISOEN ZYME intestinal frac.: COMMEN T % Test not perfo rmed. ALKPH prote in requi red to compl ete testi ng. Not Available [facility] ([facility]) [address] [place], [address], 09/21/2024 14:06:25 09/08/19 25 09/19/[address] PROBL EM request problem COMMEN T Test not perfo rmed. Deter iorat ion occur red durin g speci men handl ing. TEST: 12146 7 Alkal ine Phosp hatas e Panel : [id number] Not Available [facility] ([facility]) [address] [facility], [place], [address], 09/21/2024 14:06:27 09/08/19 25 09/21/[address] PROBL EM request problem COMMEN T Test not perfo rmed. TEST: 11092 9 Liver Fract ion: Panel : [id number] 0 Bone Fract ion: Panel : [id number] 2 [id number] 1 Intes tinal Frac. : Panel : [id number] 2 ALKPH prote in requi red to compl ete testi ng. Not Available [facility] ([facility]) [address] [place], [address], 09/21/2024 14:06:27 11/13/19 25 11/12/2024 CMP, serum or plasm a sodium 142 Not Available [facility] (Medical Records) [address] [place], [address], 11/14/2024 11:19:04 11/13/19 25 11/12/2024 CMP, serum or plasm a potassium 4.9 Not Available [facility] (Medical Records) [address] [place], [address], 11/14/2024 11:19:04 11/13/19 25 11/12/2024 CMP, serum or plasm a BUN 38 Not Available [facility] (Medical Records) [address] [place], [address], 11/14/2024 11:19:04 11/13/19 25 11/12/2024 CMP, serum or plasm a creatinine 4.19 Not Available [facility] (Medical Records) [address] [place] [address], [address], 11/14/2024 11:19:04 11/13/19 25 11/12/2024 CMP, serum or plasm a glucose 144 Not Available [facility] (Medical Records) [address] [place] [address], [address], 11/14/2024 11:19:04 11/13/19 25 11/12/2024 CMP, serum or plasm a WBC 5.2 Not Available [facility] (Medical Records) [address] [place] [address], [address], 11/14/2024 11:19:04 11/13/19 25 11/12/2024 CMP, serum or plasm a RBC 3.50 Not Available [facility] (Medical Records) [address] [place] [address], [address], 11/14/2024 11:19:04 11/13/19 25 11/12/2024 CMP, serum or plasm a HGB 10.3 Not Available [facility] (Medical Records) [address] [place] [address], [address], 11/14/2024 11:19:04 11/13/19 25 11/12/2024 CMP, serum or plasm a HCT 33.1 Not Available [facility] (Medical Records) [address] [place] [address], [address], 11/14/2024 11:19:04 11/13/19 25 11/12/2024 CMP, serum or plasm a plt 195 Not Available [facility] (Medical Records) [address] [place] [address], [address], 11/14/2024 11:19:04 11/13/19 25 11/12/2024 CMP, serum or plasm a sodium 142 Not Available [facility] (Medical Records) [address] [place], [address], 11/14/2024 11:17:12 11/13/19 25 11/12/2024 CMP, serum or plasm a potassium 4.9 Not Available [facility] (Medical Records) [address] [place], [address], 11/14/2024 11:17:12 11/13/19 25 11/12/2024 CMP, serum or plasm a glucose 144 Not Available [facility] (Medical Records) [address] [place], [address], 11/14/2024 11:17:12 11/13/19 25 11/12/2024 CMP, serum or plasm a BUN 38 Not Available [facility] (Medical Records) [address] [place], [address], 11/14/2024 11:17:12 11/13/19 25 11/12/2024 CMP, serum or plasm a creatinine 4.19 Not Available [facility] (Medical Records) [address] [place], [address], 11/14/2024 11:17:12 11/13/19 25 11/12/2024 CMP, serum or plasm a WBC 5.2 Not Available [facility] (Medical Records) [address] [place], [address], 11/14/2024 11:17:12 11/13/19 25 11/12/2024 CMP, serum or plasm a RBC 3.50 Not Available [facility] (Medical Records) [address] [place], [address], 11/14/2024 11:17:12 11/13/19 25 11/12/2024 CMP, serum or plasm a HGB 10.3 Not Available [facility] (Medical Records) [address] [place], [address], 11/14/2024 11:17:12 11/13/19 25 11/12/2024 CMP, serum or plasm a HCT 33.1 Not Available [facility] (Medical Records) [address] [place], [address], 11/14/2024 11:17:12 11/13/19 25 11/12/2024 CMP, serum or plasm a plt 195 Not Available [facility] (Medical Records) [address] [place], [address], 11/14/2024 11:17:12 08/18/19 25 08/18/2024 US, echoc ardio gram No observ ation record ed. [address] (Medical Records) [address] [place], [address], 08/23/2024 15:35:40 10/27/19 25 10/26/2024 XR, chest , 2 view No observ ation record ed. pmadden [facility] (Medical Records) [address] [place], [address], 11/02/2024 10:41:05 11/18/19 25 11/17/2024 XR, chest No observ [facility]ion [facility] [address] [place], [address], 11/17/2024 19:30:42 11/18/19 25 11/17/2024 CT, abdom en + pelvi s, w/o contr ast No observ ation record ed. [address] (Medical Records) [address] [place], [address], 11/18/2024 11:18:14 Result Notes None recorded. Problems Name Problem SNOMED Code Status Onset Date Resolution Date Notes Provider Name and Address Organization Details Recorded Time Counseli homa Completed 201102/07/2014 RECORDED 07/23/20 12 1:53PM BY CASIE AUSTIN MA, ANNOTATI ON/HEVER Quinteros PA-C [address] [facility] [address], [place], [address] , [facility] [place] 6 14:37:53 Type 2 diabetes mellitus without complica tion [id number] Completed 201202/07/2014 RECORDED 04/14/20 13 3:34PM BY CASIE AUSTIN MA, ANNOTATI ON/ADDEN DUM Leigh Ann Quinteros AL-C [address] [facility] [address], [place], [address] , [facility] [place] 6 14:37:53 Malaise and fatigue [id number] Completed 201102/07/2014 RECORDED 04/28/20 12 9:25AM BY LIBBY STEPHEN MA, ANNOTATI ON/ADDEN DUM Leigh Ann Quinteros AL-C [address] [facility] [address], [place], [address] , [facility] [place] 6 14:37:53 Influenz a vaccine needed [id number] 06 Completed 201202/07/2014 RECORDED 04/14/20 13 3:41PM BY CASIE AUSTIN MA, OFFICE VISIT Leigh Ann Quinteros PA-C [address] [facility] [address], [place], [address] , [facility] [place] 14:37:53 Gout 22136294 Active 2013 LUIS Ferrari [facility] 4 15:12:02 Hyperlip idemia 03459689 Active 2013 LUIS Ferrari, [facility] 4 15:12:02 Chronic kidney disease stage 1 [id number] Completed 201312/15/2016 STORY: ELEVATED MICROALB UMIN; RECORDED 01/19/20 14 2:14PM BY CASIE AUSTIN MA, OFFICE VISIT Leigh Ann Quinteros PA-C [id number] [facility] [address], [place], [address] , [facility] [place] 7 14:56:27 Displace ment of lumbar interver tebral disc without myelopat hy 77878441 Active 2013 SEES PSSP LUIS Ferrari, [facility] 4 15:12:01 Proteinu nazia 31041147 Active 2013 LUIS Ferrari, [facility] 4 15:12:02 Obesity 290304816 Active 2013 LUIS Ferrari, [facility] 4 15:12:02 Infectiv e otitis externa 61213110 Completed 201102/07/2014 RECORDED 07/23/20 12 1:53PM BY CASIE AUSTIN MA, ANNOTATI ON/ADDEN DUM Leigh Ann Quinteros PA-C [address] [facility] [address], [place], [address] , [facility] [place] 6 14:37:53 Active or passive immuniza tion Completed 201102/07/2014 RECORDED 07/23/20 12 2:00PM BY CASIE AUSTIN MA, OFFICE VISIT Leigh Ann Quinteros PA-C [address] [address], [place], [address] , [facility] [place] 6 14:37:53 Administ ration of diphther ia and tetanus vaccine Completed 201202/07/2014 RECORDED 11/23/19 13 2:44PM BY CASIE AUSTIN MA, ANNOTATI ON/ADDEN DUM Leigh Ann Quinteros PA-C [address] [facility] [address], [place], [address] , [facility] [place] 6 14:37:53 Urolith Active 2013 HAS SEEN UROLOGY LUIS Ferrari, [facility] 4 15:12:02 Scrotal varices Active 2013 Elena Mata MA null, [facility] 4 15:12:02 Adult health examinat ion Completed 201303/06/2014 RECORDED 01/19/20 14 2:13PM BY CASIE AUSTIN MA, ANNOTATI ON/ADDEN DUM Leigh Ann Aldair PA-C [address], [place], [address] , [place] [facility] 6 14:37:53 Counseli ng Completed 201103/06/2014 RECORDED 07/23/20 12 1:53PM BY CASIE AUSTIN MA, ANNOTATI ON/ADDEN DUM Leigh Ann Aldair HENLEY-C [address] [facility] [address], [place], [address] , [facility] 6 14:37:53 Type 2 diabetes mellitus without complica tion 556090893 Completed 201203/06/2014 RECORDED 04/14/20 13 3:34PM BY CASIE AUSTIN MA, ANNOTATI ON/ADDEN DUM Leigh Ann Aldair HENLEY-C [address] [facility] [address], [place], [address] , [facility] 6 14:37:53 Malaise and fatigue 882831647 Completed 201103/06/2014 RECORDED 04/28/20 12 9:25AM BY LIBBY STEPHEN MA, ANNOTATI ON/ADDEN DUM Leigh Ann Aldair PA-C [address] [facility] [address], [place], [address] , [facility] 6 14:37:53 Influenz a vaccine needed 80496469705 06 Completed 201203/06/2014 RECORDED 04/14/20 13 3:41PM BY CASIE AUSTIN MA, OFFICE VISIT Leigh Ann BEEBEC [address] [facility] [address], [place], [address] , [facility] 6 14:37:53 Insomnia 578006210 Active 2013 [place] Ferrari, [facility] 4 15:12:01 Infectiv e otitis externa 92959579 Completed 201103/06/2014 RECORDED 07/23/20 12 1:53PM BY CASIE AUSTIN MA, ANNOTATI ON/ADDEN DUM Leigh Ann Quinteros PA-C [address] [facility] [address], [place], [address] , [facility] 6 14:37:53 Active or passive immuniza tion Completed 201103/06/2014 RECORDED 07/23/20 12 2:00PM BY CASIE AUSTIN MA, OFFICE VISIT Leigh Ann Quinteros PA-C [address] [address], [place], [address] , [facility] 6 14:37:53 Administ ration of diphther ia and tetanus vaccine Completed 201203/06/2014 RECORDED 11/23/19 13 2:44PM BY CASIE AUSTIN MA, ANNOTATI ON/ADDEN DUM Leigh Ann Quinteros PA-C [address] [facility] [address], [place], [address] , [facility] 6 14:37:53 Otitis media 95320634 Completed 01/15/2017 Casie hooker MA null, [facility] 7 14:00:47 Disorder of cellular componen t of blood 941219058 Completed 201308/20/2024 Vivi De MD [address] [facility] [address], [place], [address] , [facility] 5 22:35:18 Uncontro lled type 2 diabetes mellitus 268057794 Completed 201301/05/2017 RECORDED 01/21/20 14 11:18AM BY VIANCA SENA, HISTORIC AL SUMMARY Leigh Ann Quinteros PA-C [address], [place], [address] , [facility] 7 12:05:05 Renal disorder due to type 2 diabetes mellitus 708284546 Active 2020 Not Available [facility] 4 18:06:38 Otitis externa 5572769 Completed 01/15/2017 [place] Ward, [facility] 7 14:00:31 Body mass index 30+ - obesity 388257060 Completed 05/13/2017 Leigh Ann Quinteros PA-C [address], [place], [address] , [facility] 7 17:10:10 Type 2 diabetes mellitus 03487098 Completed 01/05/2017 Leigh Ann Quinteros PA-C [address], [place], [address] , [facility] 7 12:04:58 Tachycar jimi 6364870 Completed 08/17/2023 Vivi De MD [address], [place], [address] , [facility] 4 16:02:45 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 95217122 Active [place] Ferrari, [facility] 4 15:12:02 Primary erectile dysfunct ion 443285396 Active [place] Ferrari, [facility] 4 15:12:02 Hyperkal emia 77696162 Completed 202008/23/2023 Vivi De MD [address] [facility] [address], [place], [address] , [facility] 4 13:51:59 Chronic kidney disease stage 3 109110635 Completed 11/24/2023 Vivi De MD [address] [facility] [address], [place], [address] , [facility] 4 19:07:37 Noncompl iance with therapeu tic regimen 907000844 Active 2017 [place] Ferrari, [facility] 4 15:12:01 Diabetic on insulin 029519328 Active 2017 [place] Ferrari, [facility] 4 15:12:01 Poor short-te rm memory 189156466 Active 2019 [place] Ferrari, [facility] 4 15:12:02 Hyperten sive renal disease 83954405 Active 2019 DX: I12.9 Not Available [facility] 4 18:06:38 Iliopsoa s bursitis of right hip 15021302167 94785 Completed 202008/17/2023 Vivi De MD [address] [facility] [address], [place], [address] , [facility] 4 15:47:00 Hypomagn esemia 257349501 Active 2020 Not Available [facility] 4 18:06:37 Acute kidney injury 20839772 Completed 202008/15/2023 Vivi De MD [address] [facility] [address], [address] , [facility] 4 15:46:57 Hyperten kiko monitori ng status 587070909 Active 2023 dis-enro sukumar Meneses null, [facility] 4 09:51:37 Chronic kidney disease stage 4 126965672 Active 2023 Vivi De MD [address] [facility] [address], [address] , [facility] 4 19:07:44 Hyperpar athyroid ism due to renal insuffic iency 69766154 Active 2023 Vivi De MD [address] [facility] [address], [place], [address] , [facility] 4 07:19:59 Heart failure 62277126 Active 2024 Lorenzo Quinteros PA-C [address] [facility] [address], [place], [address] , [facility] 5 09:19:32 Problem Notes None recorded. Procedures Surgical History Date Name Laterality Status Provider Name and Address Organization Details Recorded Time 08/22/19 25 Advanced Care Planning completed Vivi De MD [address] [facility] [address] [facility], [place], [address], [facility] 08/20/2024 22:29:02 08/17/19 24 Advanced Care Planning completed Vivi De MD [address] [facility] [address] [facility], [place], [address], [facility] 08/15/2023 15:44:21 05/04/20 23 removal of catheter completed Yesi Farris [facility] 05/06/2023 13:15:36 04/10/20 23 Diabetic Foot Exam (Monofilament) completed Vivi De MD [address] [facility] [address] [facility], [place], [address], [facility] 04/10/2023 13:37:37 03/26/20 23 retrograde pyelogram completed Yesi Farris [facility] 03/27/2023 09:26:09 03/26/20 23 ureteric lithotripsy completed Yesi Farris [facility] 03/27/2023 09:26:39 03/26/20 23 insertion of stent into ureter completed Yesi Farris [facility] 03/27/2023 09:26:57 07/15/20 22 Advanced Care Planning completed Felicita Cai [facility] 07/17/2022 13:15:29 03/17/20 22 Diabetic Foot Exam (Monofilament) completed Vivi De MD [address] [address], [place], [address], [facility] 03/17/2022 15:17:06 06/18/20 21 Advanced Care Planning completed Vivi De MD [address], [address], [facility] 06/18/2021 08:50:42 06/18/20 21 Diabetic Foot Exam (Monofilament) completed Vivi De MD [address] [address], [place], [address], [facility] 06/18/2021 18:56:54 06/04/20 20 Six-Item Cognitive Test completed Casie badillo MA [facility] 06/04/2020 15:16:46 09/15/19 20 Colonoscopy completed Casie badillo [facility] 06/04/2020 15:14:36 04/15/20 19 Mini-Cog Test completed Casie badillo [facility] 04/15/2019 15:42:06 09/20/19 19 Diabetic Foot Exam (Monofilament) completed Celia Ortiz MA [facility] 09/20/2018 14:36:35 04/16/20 18 Diabetic Foot Exam (Monofilament) completed Clemencia Lindsey MA [facility] 04/16/2018 14:44:34 03/05/20 18 Diabetic Foot Exam (Monofilament) completed Clemencia Lindsey MA [facility] 03/05/2018 12:51:44 01/27/20 18 Diabetic Foot Exam (Monofilament) completed Clemencia Lindsey MA [facility] 01/26/2018 09:37:53 12/09/19 18 Diabetic Foot Exam (Monofilament) completed Dottie Moe MA [facility] 12/08/2017 15:02:35 07/27/18 58 tonsillectomy completed Hadley Main MA [facility] 07/15/2022 14:41:22 Imaging Results Imaging Date Name Status LastModified by Organization Details LastModified Time 08/18/2024 US, echocardiogram completed [address] (Medical Records) [address] [place], [address], 08/23/2024 15:35:40 10/26/2024 XR, chest, 2 view completed [facility] (Medical Records) [address] [place], [address], 11/02/2024 10:41:05 11/17/2024 XR, chest completed [facility] (Imaging) [address] [place], [address], 11/17/2024 19:30:42 11/17/2024 CT, abdomen + pelvis, w/o contrast completed [address] (Medical Records) [address] [place], [address], 11/18/2024 11:18:14 Procedure Notes None recorded. Medical Equipment None Reported. Allergies Allergen ID Allergen Name Allergen Category Reaction Reaction Severity Criticality Documentation Date Start Date Code Code System Note Provider Name and Address Organization Details Recorded Time 11270 Victoza medicatio n abdominal pain Not available Not available 04/16/2018 77328 3 RxNorm Leigh Ann Quinteros PA-C [address] [address], [place] [facility] 8 15:07:08 46203 liragluti de medicatio n other Not available Not available 05/20/20212020 67914 8 RxNorm Leisa lucia [facility] 10:45:47 55040 Product containin g angiotens in-conver ting enzyme inhibitor (product) medicatio n Not available Not available low 11/24/2023 67608 009 SNOMED See renal note Vivi De MD [address] [facility] [address], [facility], [place], [address], [facility] 4 19:07:27 Medications Name Sig Start Date [...] completed Not Available Not Available Not Available Toujeo SoloStar U-300 Insulin 300 unit/mL (1.5 mL) [...] Updated DateTime 4 177.8 cm 31.2 kg/m2 69939.2 4 g 82 /min 97 % 97 % 98.3 [degF] 135 mm[Hg] 63 mm[Hg] Humaira Jo LPN [facility] 4 15:24:10 Date Recorded Body height Provider Name an d Address Organization Details Last Updated DateTime 08/03/2024 177.8 cm Azra Torres MA [facility] 08/03/2024 14:36:10 Date Recorded Body mass index (BMI) Body weight Heart rate Oxygen saturation Oxygen saturation in Arterial blood by Pulse oximetry Body temperature Systolic blood pressure Diastolic blood pressure Provider Name and Address Organization Details Last Updated DateTime 5 32.3 kg/m2 760440. 28 g 86 /min 97 % 97 % 98.4 [degF] 154 mm[Hg] 70 mm[Hg] Jaci santacruz [facility] 5 14:43:16 Date Recorded Body height Body mass index (BMI) Body weight Heart rate Oxygen saturation Oxygen saturation in Arterial blood by Pulse oximetry Body temperature Systolic blood pressure Diastolic blood pressure Provider Name and Address Organization Details Last Updated DateTime 5 177.8 cm 30.6 kg/m2 82368.1 7 g 84 /min 96 % 96 % 98.3 [degF] 150 mm[Hg] 66 mm[Hg] Casie stubbs [facility] 5 15:25:23 Date Recorded Systolic blood pressure Diastolic blood pressure Provider Name and Address Organization Details Last Updated DateTime 08/22/2024 154 mm[Hg] 72 mm[Hg] Elena Mata [facility] 08/22/2024 16:14:01 Date Recorded Body height Body mass index (BMI) Body weight Oxygen saturation Oxygen saturation in Arterial blood by Pulse oximetry Heart rate Body temperature Systolic blood pressure Diastolic blood pressure Provider Name and Address Organization Details Last Updated DateTime 5 177.8 cm 30.5 kg/m2 37281.3 8 g 97 % 97 % 91 /min 100.4 [degF] 163 mm[Hg] 77 mm[Hg] Dottie Moe [facility] 5 09:51:44 Date Recorded Body height Body mass index (BMI) Body weight Heart rate Oxygen saturation Oxygen saturation in Arterial blood by Pulse oximetry Body temperature Systolic blood pressure Diastolic blood pressure Provider Name and Address Organization Details Last Updated DateTime 5 177.8 cm 30 kg/m2 28681.8 1 g 92 /min 96 % 96 % 98.1 [degF] 120 mm[Hg] 63 mm[Hg] Azra Torres MA [facility] 5 08:31:24 Social History Question Answer Notes LastModified by Organizat ion Details LastModified Time Tobacco Smoking Status Never Smoker La Nena Ponceoiviviane lucia [facility] 03/30/2014 15:10:37 Do You Have An Advance [...] not available 06/04/2020 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 Information not available 06/26/2014 Live Alone [...] Father History of malignant neoplasm 40 56 odalis s Not available 06/26/2014 14:47:41 Medical History Condition Response Kidney Disease Y Diabetes Y Immunizations Vaccine Type Date Status Note Provider Syed hong and Address Organization Details Recorded Time Pneumococcal conjugate PCV 13 7 completed [place] Hanks [facility] 03/05/2018 13:04:15 zoster live 7 completed Not Available [facility] 08/15/2023 18:06:39 zoster live 5 completed LUIS Hanks [facility] 03/05/2018 13:05:03 zoster live 7 completed LUIS Ferrari [facility] 08/17/2023 15:12:09 COVID-19, mRNA, LNP-S, PF, 100 mcg/0.5mL dose or 50 mcg/0.25mL dose 1 completed [place] Ferrari [facility] 08/17/2023 15:12:08 COVID-19, mRNA, LNP-S, PF, 100 mcg/0.5mL dose or 50 mcg/0.25mL dose 1 completed LUIS Ferrari [facility] 08/17/2023 15:12:08 COVID-19, mRNA, LNP-S, PF, 100 mcg/0.5mL dose or 50 mcg/0.25mL dose 1 completed LU[place] Ferrari [facility] 08/17/2023 15:12:08 pneumococcal polysaccharide PPV23 9 completed LUIS Ferrari [facility] 08/17/2023 15:12:08 Influenza, split virus, quadrivalent, PF 5 completed [place] Ferrari [facility] 08/17/2023 15:12:09 Pneumococcal conjugate PCV 13 8 completed LUIS Ferrari [facility] 08/17/2023 15:12:08 Influenza, split virus, trivalent, PF 4 completed [place] Ferrari, [facility] 08/17/2023 15:12:09 Influenza, high-dose, quadrivalent, PF 1 completed [place] Ferrari, [facility] 08/17/2023 15:12:08 Influenza, split virus, quadrivalent, PF 7 completed [place] Ferrari, [facility] 08/17/2023 15:12:09 Influenza, high-dose, quadrivalent, PF 0 completed LUIS Ferrari [facility] 08/17/2023 15:12:08 Influenza, split virus, quadrivalent, PF 8 completed [place] Ferrari, [facility] 08/17/2023 15:12:09 Influenza, high-dose, trivalent, PF 9 completed [place] Ferrari, [facility] 08/17/2023 15:12:09 Td (adult), 2 Lf tetanus toxoid, preservative free, adsorbed 2 completed [place]IS Ferrari [facility] 08/17/2023 15:12:09 Influenza, high-dose, quadrivalent, PF 2 completed [place] Ferrari, [facility] 08/17/2023 15:12:08 Influenza, split virus, quadrivalent, PF 6 completed Not Available [facility] 08/13/2019 02:22:04 influenza, seasonal, intradermal, preservative free 2 completed Not Available [facility] 08/15/2023 18:06:39 Tdap 2 completed Not Available [facility] 08/15/2023 18:06:39 pneumococcal polysaccharide PPV23 2 completed Not Available [facility] 08/15/2023 18:06:38 influenza, seasonal, intradermal, preservative free 3 completed Not Available [facility] 08/15/2023 18:06:39 Influenza, high-dose, quadrivalent, PF 3 completed [place] Zhao, [facility] 04/10/2023 13:42:39 Influenza, high-dose, trivalent, PF 4 completed [place] Zhao, [facility] 04/11/2024 12:43:47 Past Encounters Encounter ID Performer Location Encounter Start Date Encounter Closed Date Diagnosis/Indication Diagnosis SNOMED-CT Code Diagnosis ICD10 Code Diagnosis Note [id number] autoEComm erce [address] [facility] [place] [address] 01/14/2012 00:00:00 [id number] autoEComm erce [address] [facility] [place] [address] 02/06/2012 00:00:00 [id number] autoEComm erce [address] [facility] [place] [address] 04/28/2012 00:00:00 [id number] autoEComm erce [address] [facility] [place] [address] 07/23/2012 00:00:00 [id number] autoEComm erce [address] [facility] [place] [address] 11/22/2012 00:00:00 [id number] autoEComm erce [address] [facility] [place] [address] 04/14/2013 00:00:00 [id number] autoEComm erce [address] [facility] [place] [address] 10/14/2013 00:00:00 [id number] autoEComm erce [address] [facility] [place] [address] 01/18/2014 00:00:00 [id number] Casie hooker MA Main Office [address] [address] [place] [address] 03/30/2014 15:02:25 03/30/2014 15:47:43 Otitis media 14212954 [id number] Casie hooker MA Main Office [address] [address] [place] [address] 04/03/2014 14:00:31 04/03/2014 14:41:19 Otitis media 42048948 Otitis externa 6302036 Body mass index 30+ - obesity 784390797 [id number] Main Office [address] [address] [place] [address] 04/10/2014 12:42:38 04/10/2014 14:10:01 Type 2 diabetes mellitus 40109147 Gout 24753299 Hyperlipidemia 35842523 Tachycardia 5346114 Needs infl uenza immunization 399072971 [id number] Casie hooker MA Main Office [address] [address] [place] [address] 04/12/2014 11:13:33 04/12/2014 11:52:39 Tachycardia 3774733 Renal diso rder due to type 2 diabetes mellitus 153022623 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 01225260 [id number] Main Office [address] [address] [place] [address] 06/26/2014 14:28:50 06/26/2014 15:25:36 Uncontrolled type 2 diabetes mellitus 605752901 Gout 15169166 [id number] Main Office [address] [address] [place] [address] 09/25/2014 12:48:58 09/25/2014 13:46:32 Uncontrolled type 2 diabetes mellitus 946953863 Chronic ki dney disease stage 1 080859256 Gout 35610932 [id number] Main Office [address] [address] [place] [address] 12/25/2014 12:40:02 12/25/2014 14:04:58 Renal disorder due to type 2 diabetes mellitus 330075546 Chronic ki dney disease stage 1 144852058 Gout 17276351 [id number] Main Office [address] [address] [place] [address] 04/09/2015 13:08:37 04/09/2015 14:08:54 Renal disorder due to type 2 diabetes mellitus 973813969 Hyperlipidemia 60277688 Needs infl uenza immunization 251671223 Chronic ki dney disease stage 1 903463214 Gout 18108430 [id number] Raheem García MD Main Office [address] [address] [place] [address] 07/13/2015 09:21:56 07/13/2015 10:28:30 Renal disorder due to type 2 diabetes mellitus 427960701 E11.29 Varicella vaccination 68 057124 Z23 Primary er ectile dysfunction 136534538 N52.9 [id number] Raheem García MD Main Office [address] [address] [place] [address] 07/31/2015 12:54:40 07/31/2015 14:11:16 Type 2 diabetes mellitus 67251716 E11.9 Uncontroll ed type 2 diabetes mellitus 360534515 E11.65 Uncontroll ed type II DM with renal manifestat ions. Total time spent teaching and coordinati ng care 45 min. Basic physiology of type II DM was reviewed. Pt. was advised to test glucose TID by rotating pre and 2 hr postmeal readings every other day. Targets for fasting and postprandi al readings were set. Pt. was advised on 1999 leisa ADA diet and advised to exercise daily by walking at least 30 min. Diabetic eye and foot care recommenda tions were reviewed. D/c Levemir. Start Toujeo SoloStar at 40 u daily. Continue oral antidiabet ics. F/u 2 weeks. Consider premeal insulin. DIsconitnu e regular soda. [id number] Raheem García MD Main Office [address] [address] [place] [address] 07/31/2015 13:44:46 07/31/2015 14:11:24 Renal disorder due to type 2 diabetes mellitus 127678807 E11.29 Total time spent teaching and coordinati ng care 45 min. Basic pathophysi ology of type II DM was reviewed. Pt. was advised to increase glucose testing frequency from 1 times daily to TID rotating every other day premeal and 2 hrpc. 2000 leisa ADA diet was reviewed and menues provided. Pt. was advised to see opthalmolo gist for diabetic eye exams yearly unless otherwise indicated more often. Diabetic foot care reviewed. D/c Levemir. Start Toujeo SoloStar at 40 u daily SC injections at HS daily. Continue oral antidiabet ics. Return in 6 weeks with log. [id number] Chelsey DuffyKavya mendenhall Main Office [address] [facility] [address] [place] [address] 08/29/2015 12:48:13 08/29/2015 14:02:52 Uncontrolled type 2 diabetes mellitus 332916930 E11.65 UNcontroll ed DM with renal complicati [...] rder due to type 2 diabetes mellitus 252823806 E11.29 Renal disease due to HTN and uncontroll ed DM> PT. is advised to increase hydration. Avoid NSAIDs and eatlow POtassium diet. Continue ACEI as directed. Continue working on improving glycemic control with goal A1c under 7%. [id number] Jose Bell MD Main Office [address] [facility] [address] [facility] [place] [address] 09/28/2015 13:43:12 09/28/2015 14:44:32 Renal disorder due to type 2 diabetes mellitus 279521164 E11.29 Renal disease due to HTN and uncontroll ed DM> PT. is advised to increase hydration. Avoid NSAIDs and eat low Potassium diet. Repeat BMP and microalbum in Continue ACEI as directed. Continue working on improving glycemic control with goal A1c under 7%. F/u 6 wks. Repeat BMP , microalb., and A1c before next visit. [id number] Raheem García MD Main Office [address] [facility] [address] [facility] [place] [address] 12/05/2015 14:24:52 12/05/2015 15:05:58 Uncontrolled type 2 diabetes mellitus 114492648 E11.65 Uncontroll ed DM with renal complicati ons. Noncomplia nt to medicines and diet. Strongly advised to start HUmalog premeal at 10 u TID and increase Toujeo to 60 u daily at HS. Continue oral antidiabet ics and return as scheduled in December. Noncomplia nce with treatment 6436696 Z91.19 Hyperkalemia 92634519 E8 7.5 Secondary to chronic renal disease and ACEI. Stable at this point . Will f/u with nephrology as scheduled. Chronic ki dney disease stage 3 937298976 N18.3 [id number] Raheem García MD Main Office [address] [facility] [address] [place] [address] 01/15/2016 13:48:04 01/15/2016 14:43:13 Adult health examination 901740905 Z00.00 Renal diso rder due to type 2 diabetes mellitus 922057874 E11.29 Gout 91443025 M10.9 Hyperlipidemia 90910734 E78.5 Body mass index 30+ - obesity 260097674 Z68.30 [id number] Raheem García MD Main Office [address] [facility] [address] [place] [address] 02/05/2016 13:46:17 02/05/2016 14:41:03 Uncontrolled type 2 diabetes mellitus 839842551 E11.65 Uncontroll ed DM with renal complicati ons. Noncomplia nt to using Humalog and testing TID. Strongly advised to start HUmalog premeal at 10 u TID and increase Toujeo to 60 u daily at HS. Continue oral antidiabet ics . F/u 6 weeks. Obesity 419735977 E66.9 Renal diso rder due to type 2 diabetes mellitus 129041211 E11.29 F/u with the nephrologi st as scheduled. BP is stable. [id number] Chelsey mendenhall Main Office [address] [facility] [address] [place] [address] 03/21/2016 15:21:07 03/21/2016 16:34:05 Impacted cerumen 87695745 H61.23 [id number] Raheem García MD Main Office [address] [facility] [address] [place] [address] 04/29/2016 15:12:17 04/29/2016 16:43:53 Uncontrolled type 2 diabetes mellitus 827989438 E11.65 Uncontroll ed DM with renal complicati ons. Noncomplia nt to using Humalog and testing TID. Strongly advised to start HUmalog premeal at 10 u TID and increase Toujeo to 65 u daily at HS. Continue oral antidiabet ics . ? if taking Glipizide or not. F/u 2 months. Needs infl uenza immunization 996383765 Z23 Renal diso rder due to type 2 diabetes mellitus 986618497 E11.29 F/u with the nephrologi st as scheduled. BP is stable. Chronic ki dney disease stage 3 095303687 N18.3 [id number] Raheem García MD Main Office [address] [place] [address] 09/01/2016 14:24:47 09/01/2016 15:22:08 Uncontrolled type 2 diabetes mellitus 157323648 E11.65 Increase Toujeo to 75 u daily. Start using Humalog premeal as discussed at 10 u in am and at lunch and 15 before dinner. Test glucose 2 hrpc until next visit. Lower total calories and start exercise acitvity as discussed. Retest BMP and microalbum in. Renal diso rder due to type 2 diabetes mellitus 785075656 E11.29 F/u with the nephrologi st as scheduled in September. BP is stable. Noncomplia nce with treatment 1911827 Z91.19 Discussed ion length . TOtal time of visit 35 minutes. Body mass index 30+ - obesity 030919959 Z68.31 [id number] Raheem García MD Main Office [address] [place] [address] 12/15/2016 14:22:23 12/15/2016 15:07:26 Uncontrolled type 2 diabetes mellitus 628993620 E11.65 Compliance with premeal insulin is poor. Overall diabetic control is worsening. Will continue TOujeo at 70 u daily. Add Victoza at 0.6 mg daily SC for 1 week,. then if tolerated go to 1.2 mg. F/u 4-6 weeks with log. Renal diso rder due to type 2 diabetes mellitus 490436322 E11.29 F/u with the nephrologi st as scheduled in September. BP is stable. Chronic ki dney disease stage 3 008918971 N18.3 f/u with the nephrologi st as scheduled. Noncomplia nce with treatment 9426928 Z91.19 Discussed ion length . TOtal time of visit 35 minutes. Body mass index 30+ - obesity 394299290 Z68.30 [id number] Peter Gonzales Main Office [address] [place] [address] 12/24/2016 12:01:17 12/26/2016 12:14:38 [id number] Raheem García MD Main Office [address] [place] [address] 01/05/2017 10:55:52 01/05/2017 12:12:38 Acute injury of kidney 6024742235 2303070 N17.9 F/u with nephrologi st as scheduled this afternoon. Labs to be done this afternoon. Renal diso rder due to type 2 diabetes mellitus 402788473 E11.29 Continue Toujeo at 75 u daily. Start HUmalog at 5 u TID premeal. Test glucose TID premeal. Continue low carb diet and return with log in 4 weeks. LOwer GLipizide ER to 5 mg daily to avoid hypoglycem ia. Chronic ki dney disease stage 3 809665173 N18.3 f/u with the nephrologi as scheduled. [id number] Raheem García MD Main Office [address] [place] [address] 01/15/2017 13:46:35 01/15/2017 14:51:16 Adult health examination 194348974 Z00.00 Varicella vaccination 68 471400 Z23 Screening for malignant neoplasm of colon 495485190 Z12.11 Displaceme nt of lumbar intervertebral disc without myelopathy 31567451 M51.26 Followed as needed by [facility] Proteinuria 09060065 R80 .9 Renal diso rder due to type 2 diabetes mellitus 752788029 E11.29 Continues close follow up to improve blood sugar control Chronic ki dney disease stage 3 945114956 N18[address] Martínez for renal [id number] Raheem García MD Main Office [address] [place] [address] 02/16/2017 14:02:59 02/16/2017 14:44:01 Renal disorder due to type 2 diabetes mellitus 974747183 E11.29 Continue Toujeo at 74 u daily. Humalog at 5-10 u TID premeal. Test glucose TID premeal. Restart Metfromin ER 500 mg 2 po qd with supper. Lower total calories and increase exercise activity. F/u 6 weeks with repeat A1c. Chronic ki dney disease stage 3 257764982 N18.3 just was seen by nephrologi st Pierce STable condition. Body mass index 30+ - obesity 895055974 Z68.31 [id number] Raheem García MD Main Office [address] [address] [place] [address] 04/01/2017 13:38:26 04/01/2017 15:02:23 Renal disorder due to type 2 diabetes mellitus 808846740 E11.29 Improve consistenc y of pre-prandi al 10 U Humalog. Discussed that if you forget to inject humalog prior to meals, can inject at 5 U during or after eating which may help. Lower total calories, fat intake and increase exercise activity. Improve consistenc y with diet. F/u 6 weeks with repeat A1c. Increase Toujeo to 80 U. Needs infl uenza immunization 671535013 Z23 Body mass index 30+ - obesity 803169718 Z68.31 Improve diet - decrease fats, caloric intake and salt intake. Increase exercise. Proteinuria 46900844 R80 .9 Just seen by Nephrologbart royal Stable condition. Chronic ki dney disease stage 3 977205356 N18.3 Just was seen by nephrologi st Pierce Stable condition. [id number] Chapito Paz MD Main Office [address] [place] [address] 05/13/2017 13:39:04 05/13/2017 14:43:09 Renal disorder due to type 2 diabetes mellitus 308688132 E11.22 Current on meds, asymptomat ic. Glucose readings stable, A1c last checked in 04/01/17 at 10.0, will reassess prior to net visit in 6 wks renal disease stable. seen by nephrologi Chronic ki dney disease stage 3 495808419 N18.3 stable. seen by nephrologbart bill Impacted cerumen 9731303 6 H61.23 cerumen obstructio n present bilaterall y, more prominent on L ear Hyperlipidemia 57523502 E78.1 Body mass index 30+ - obesity 320195771 E66.9 Z68.31 [id number] Raheem García MD Main Office [address] [place] [address] 07/10/2017 10:54:28 07/10/2017 12:02:12 Renal disorder due to type 2 diabetes mellitus 204002350 E11.22 STable CKD stg 3 diabetic and hypertensi ve. Needs better diabetic control, but struggles with inconsiste ncy in diet and premeal insulin injection. WE discussed that again and will continue trying to improve those issues. He will be seen by nephrologbart bill in 3 m and by me at around the same time for diabetic f/u. He was advised to take 1-2 weeks and test 2 hrpc to do revision on his Humalog dosage. Toujeo is advised at 80 u daily. Chronic ki dney disease stage 3 302979177 N18.3 stable. seen by nephbhavin bill. Labs are done at nephregi office. Administra tion of pneumococcal vaccine 99228539 Z23 Body mass index 30+ - obesity 537666519 E66.9 Z68.35 Z68.30 [id number] Hadley chery Main Office [address] [place] [address] 12/08/2017 15:00:07 12/08/2017 15:45:19 Renal disorder due to type 2 diabetes mellitus 843803033 E11.22 STable CKD stg 3 diabetic and hypertensi ve. Needs better diabetic control, but struggles with consistenc y in diet and premeal insulin injection. WE discussed that again and will continue trying to improve those issues. Pt. was seen by the nephrologbart bill 2 weeks ago and had labs and A1c done there. He was advised to take 1-2 weeks and test 2 hrpc to do revision on his Humalog dosage. Toujeo is advised at 84 u daily. HUmalog add additional 3 u to sliding scale. Continue testing. F/u with log in 4 weeks. Chronic ki dney disease stage 3 409986806 N18.3 stable. seen by nephrologi . Labs are done at nephrologi office. Body mass index 25-29 - overweight 529554494 E66.3 Z68.28 [id number] Hadley chery Main Office [address] [place] [address] 01/26/2018 09:26:49 01/26/2018 10:45:39 Renal disorder due to type 2 diabetes mellitus 395469829 E11.22 STable CKD stg 3 disease. [facility] having labs repeated. [...] days. Chronic ki dney disease stage 3 619653498 N18.3 [facility]. [facility] Labs are done at nephrologi office. [id number] Raheem García MD Main Office [address] [place] [address] 03/05/2018 12:46:45 03/05/2018 13:48:52 Hepatitis C screening 483854480 Z11.59 Active or passive immunization 801356872 Z23 Adult heal th examination 844517167 Z00.00 Renal diso rder due to type 2 diabetes mellitus 236107969 E11.29 Continues close follow up to improve blood sugar control Screening for malignant neoplasm of colon 175351886 Z12.11 Administra tion of pneumococcal vaccine 00127882 Z23 Displaceme nt of lumbar intervertebral disc without myelopathy 21228224 M51.26 Followed as needed by [facility] Chronic ki dney disease stage 3 655323223 N18.[address] Martínez for renal [id number] Raheem García MD Main Office [address] [place] [address] 04/16/2018 14:32:14 04/16/2018 15:26:03 Renal disorder due to type 2 diabetes mellitus 912091819 E11.22 Stable CKD stg 3 disease. REcom. [...] weeks with log. Needs infl uenza immunization 433133936 Z23 Chronic ki dney disease stage 3 068182429 N18.3 Body mass index 25-29 - overweight 573122496 E66.3 Z68.25 Z68.29 Noncomplia nce with therapeutic regimen 690477009 Z91.19 Diabetic on insulin 1707 91654 E11.9 Z79.4 [id number] Raheem García MD Main Office [address] [place] [address] 09/20/2018 14:29:18 09/20/2018 15:48:17 Renal disorder due to type 2 diabetes mellitus 631578885 E11.22 Pt. is noncomplia nt to medical [...] m. Chronic ki dney disease stage 3 657286533 N18.3 Noncomplia nce with therapeutic regimen 907506512 Z91.19 Diabetic on insulin 1707 18729 E11.9 Z79.4 [id number] Raheem García MD Main Office [address] [place] [address] 04/15/2019 15:10:15 04/15/2019 16:44:44 Adult health examination 433773449 Z00.00 Influenza vaccine needed 9477770738 106 Z23 Administra tion of pneumococcal vaccine 89133850 Z23 Renal diso rder due to type 2 diabetes mellitus 324956569 E11.29 followed by [facility] in [place], [place]. HbA1c was 9.3% on 04/04/2019 . Screening for malignant neoplasm of colon 424617882 Z12.11 Screening for malignant neoplasm of prostate 280905015 Z12.5 [id number] Raheem García MD Main Office [address] [place] [address] 06/04/2020 14:46:40 06/04/2020 16:05:14 Adult health examination 821197917 Z00.00 Influenza vaccine needed 4948604892 106 Z23 Renal diso rder due to type 2 diabetes mellitus 388606900 E11.22 Continue quarterly follow-up of serum creatinine , blood pressure, glycemic control. Followed by renal (Kranthi). Chronic ki dney disease stage 3 403474326 N18.30 Renal hypertension 10576 000 I12.9 Medication s reviewed. Will continue present medication s or changes as indicated. Follow home BP. Gout 95331462 M10.9 Diabetic on insulin 1707 50387 Z79.4 Poor short -term memory 931138145 R41.3 Failed cognitive screening. Declines workup. Feels he has not problems with memory. [id number] Raheem García MD [facility] [address] [address] [place] [address] 01/04/2021 09:10:39 01/04/2021 14:44:18 Iliopsoas bursitis of right hip 6132763586 869080 M70.71 [id number] Vivi De MD Main Office [address] [place] [address] 06/18/2021 13:02:00 06/18/2021 13:55:14 Chronic kidney disease stage [address] Martínez advised regular follow up. Renal diso rder due to type 2 diabetes mellitus 303504883 E11.22 N18.32 Follows [facility] for diabetesLa st a1c 06/18/21: 13.1tx per [...] ry consult provided Adult heal th examination 465655633 Z00.00 Patient was counseled on healthy diet, [...] . Advance directives discussed. Influenza vaccine needed 4455638373 106 Z23 Fatigue 82189005 R53.83 Hyperlipidemia 76771354 E78.5 Hypomagnesemia 522324491 E83.42 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 71091651 D64.9 Advance di rective discussed with patient 911697351 Z71.89 [facility]/HCP provided and discussed. Gout 45065138 M10.9 Colitis 45223191 K52.9 Impacted c erumen of bilateral ears 8416967996 301692 H61.23 [id number] Kavita Pierre [place] Main Office [address] [facility] [place] [address] 10/02/2021 14:12:30 10/02/2021 14:47:26 Chronic kidney disease stage [address] Martínez advised regular follow up. Renal diso rder due to type 2 diabetes mellitus 862773764 E11.22 Follows [facility] endo for diabetesLa st a1c 11/21: 13.1tx per endo.On statin.Oph thalmology exam discussed [...] with endoPodiat ry consult provided Skin lesion 41352202 L98 .9 Pearly lesion on left ear does not use spf.Possib le BCC, vs skin tag will make urgent referral derm. Hypertensi ve renal disease 77885838 I12.9 Low sodium diet discussedC ounseled on medication adherenceC ounseled on diet/exerc iseDoes not check bp at homeRed flags of HTN emergency discussed and when to go to ED. [id number] Vivi De MD Main Office [address] [facility] [address] [place] [address] 12/09/2021 12:51:48 12/09/2021 13:30:05 Acute hyperkalemia 4871513 E87.5 Has kayexalate for nephro, was supposed to use and admitted to not use it.Has note seen renal since last fall - advised follow upHe is asymptomat ic, will hold ecg for now.Sugar controlled discussed. Renal diso rder due to type 2 diabetes mellitus 070569405 E11.22 Follows [facility] endo for diabetesHb a1d donetx per [...] provided Chronic ki dney disease stage [address] Martínez advised regular follow up. Hypertensi ve renal disease 56263507 I12.9 Low sodium diet discussedC ounseled on medication adherenceC ounseled on diet/exerc iseDoes not check bp at homeRed flags of HTN emergency discussed and when to go to ED. Skin lesion 13249998 L98 .9 S/p resection follow derms. Adhesive c apsulitis of shoulder 115213779 M75.01 M75.02 Anemia of chronic disease 679600261 D63.8 Will continue to monitor cbc. 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 46341573 D64.9 Will continue to monitor in 3 mo visit. [id number] Dalia Joya Main Office [address] [facility] [place] [address] 03/05/2022 14:01:11 03/05/2022 15:22:09 Partial thickness burn of lower limb 30302712 T24.201A pt is a diabetic, will start antibiotic s to cover for infection. Use silvadene cream bid, mostly on any open areas, avoid maceration . Keep covered when out, can use light covering at home. Call if not improving or if worsening. Requires a tetanus booster 784283515 Z23 due for Td booster [id number] Vivi De MD Main Office [address] [facility] [place] [address] 03/17/2022 14:29:22 03/17/2022 15:32:37 Renal disorder due to type 2 diabetes mellitus 399695288 E11.22 Follows [facility] endo for diabetesHb a1d done currently [...] one Chronic ki dney disease stage [address] Martínez advised regular follow up. Hypertensi ve renal disease 70507539 I12.9 Low sodium diet discussedC ounseled on medication adherence - accuheal order.Coun seled on diet/exerc iseDoes not check bp at homeRed flags of HTN emergency discussed and when to go to ED.Notes home BP wnl. Anemia of chronic disease 298605185 D63.8 Will continue to monitor cbc at annual. 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 90057792 D64.9 Will continue to monitor in 3 mo visit. Essential hypertension 35433641 I10 Edema of l ower extremity 302802214 R60.0 compressio n stocking advised [id number] Leigh Ann Quinteros PA-C Main Office [address] [place] [address] 05/27/2022 13:44:10 05/27/2022 14:20:42 Pneumonitis 787958165 J18.9 Begin zithromax at 500 mg daily for 1 week. Pt. is advised to take Mucinex for cough. [id number] Felicita Cai Main Office [address] [place] [address] 07/15/2022 14:17:14 07/15/2022 15:35:02 Renal disorder due to type 2 diabetes mellitus 081223984 E11.22 Follows [facility] endo for diabetesHb a1d orderedtx per [...] wants to wait till Hb is 7/controll ed)Geovanny onist Follows with endoPodiat ry consult not currently interested in seeing one Chronic ki dney disease stage [address] Martínez advised regular follow up. Hypertensi ve renal disease 81270961 I12.9 Low sodium diet discussedC ounseled on medication adherence - accuhealth order.Coun seled on diet/exerc iseDoes not check bp at homeRed flags of HTN emergency discussed and when to go to ED.Notes home BP wnl. Anemia of chronic disease 439998639 D63.8 Will continue to monitor cbc at annual. Edema of l ower extremity 655686723 R60.0 compressio n stocking advised Adult heal th examination 193401522 Z00.00 Patient was counseled on healthy diet, [...] Medication reconciled . Advance directives discussed. Fatigue 67018186 R53.83 Hyperlipidemia 22641468 E78.5 Hypomagnesemia 595642834 E83.42 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 94646221 D64.9 Will continue to monitor in 3 mo visit. Advance di rective discussed with patient 532889799 Z71.89 MOLST/HCP provided and discussed. Gout 58194051 M10.9 Impacted c erumen of bilateral ears 6029537261 628918 H61.23 Administra tion of viral vaccine 65423268 Z23 Varicella vaccination 68 704248 Z23 [id number] Azra Torres [place] Main Office [address] [place] [address] 04/10/2023 12:52:49 04/10/2023 13:49:56 Renal disorder due to type 2 diabetes mellitus 793413266 E11.22 Follows [facility] for diabetestx per endo. (humalog 15 units TID, tresiba 65 units), reminded to reach out to endo.Will stop Pioglitazo ne and have care per Endo perhaps he might be a good candidate for GLP1 vs SGLT 2.Tells me last a1c at [facility] was 6.8On statin.Oph thalmology exam has [...] in seeing one Hypertensi ve renal disease 04426652 I12.9 bp soft will hold amlodipine . Advised to check bp. Chronic ki dney disease stage [address] Martínez advised regular follow up. Edema of l ower extremity 465531825 R60.0 compressio n stocking advised Insomnia 976989836 G47.0 0 Pericardial effusion 373 255246 I31.39 Likely 2/2 to fluid overload, now on HD. Influenza vaccine needed 7548678402 106 Z23 Abrasion 480808443 T14.8 XXA Right 4th toe, no warmth or fluctuance , no drainage, area cleaned and bacitracin placed and bandage. Advised daily wound check. Call if no improvemen t. Also advised to follow podiatry. [id number] Felicita Cai Main Office [address] [place] [address] 08/17/2023 14:49:27 08/17/2023 16:07:35 Adult health examination 884854068 Z00.00 Patient was counseled on healthy diet, exercise and nutrition due to Body mass index is 31.6 kg/m? ? ?. Last PSADate: 12/06/21Res ult: 1.5Plan: wants to stop screening. Last Colonoscop y:Date: 09/15/2019R esult: acute colitisPla n: tells me next due in 10 yrs, Vaccines:T d: 03/05/22Zos ter rec:script provided [email or web address] : 03/05/18PPS V23: 07/23/12, 04/15/19PCV 20: DiscussedI nfluenza: 04/10/23Cov id: 08/17/20, 09/14/20, 06/23/21, encourage updated vaccineRSV : Discussed Routine labs today Immunizati on status reviewed. Will screen based on risk factors. Regular dental and ophtho care advised as well as seat belt and sunscreen use. Distracted driving discussed. Medication reconciled . Advance directives discussed. Advance di rective discussed with patient 205929576 Z71.89 MOLST/HCP provided and discussed. Administra tion of pneumococcal vaccine 73980740 Z23 Administra tion of viral vaccine 58681560 Z29.11 Chronic ki dney disease stage [address] Martínez advised regular follow up. Renal diso rder due to type 2 diabetes mellitus 769091342 E11.22 tx per [facility] endo, a1c/microa lbumin [...] glucose at home Diabetic on insulin 1707 14706 Z79.4 Fatigue 30709750 R53.83 Z00.00 Hyperlipidemia 50177432 E78.5 Z00.00 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 64724093 D64.9 Will continue to monitor in 3 mo visit. Varicella vaccination 68 574370 Z23 Gout 08613564 M10.9 Hyperkalemia 97957363 E8 7.5 Insomnia 543376963 G47.0 0 Noncomplia nce with therapeutic regimen 907363143 Z91.199 Venereal d isease screening 330874718 Z20.2 Z11.3 [id number] Vivi De MD Main Office [address] [place] [address] 11/24/2023 15:25:07 11/24/2023 16:18:16 Vitamin D deficiency 39553753 E55.9 on supplement ation Insomnia 224921553 G47.0 0 Reviewed the risk of benzo use. Will continue current regimen till he is evaluated by sleep medicine.C ontrol substance completed. Displaceme nt of lumbar intervertebral disc without myelopathy 98087755 M51.26 Follows pain management Chronic ki dney disease stage 4 233762534 N18.4 Cont. renal follow up. Hypertensi ve renal disease 23143642 I12.9 Stable on current regimen. Renal diso rder due to type 2 diabetes mellitus 178610437 E11.22 Follows [facility] endo. History of calculus of kidney 783858072 Z87.[address] he had done by urology reveals he has cleared renal stone [id number] Felicita Cai Main Office [address] [address] [place] [address] 12/15/2023 13:23:53 12/15/2023 13:53:43 Acute conjunctivitis 14142861 H10.33 Allergic conjunctivitis 670467392 H10.13 Allergic rhinitis 955724 04 J30.9 Trigger fi nger of left hand 1483009182 4944854 M65.312 [id number] Chapito Paz MD Main Office [address] [address] [place] [address] 02/24/2024 13:21:08 02/24/2024 14:18:03 Fatigue 38152405 R53.83 No clear etiology. Possible infectious although his only symptoms is fatigue. Does not appear to be mood related. [id number] Felicita Porraso Main Office [address] [address] [place] [address] 03/01/2024 13:49:15 03/01/2024 14:47:08 Fatigue 53779200 R53.83 Z00.00 Alkaline p hosphatase above reference range 728908320 R74.8 Hypertensi ve renal disease 79661842 I12.9 Chronic ki dney disease stage 4 048421487 N18.4 Cont. renal follow up. [id number] Felicita Cai Main Office [address] [place] [address] 03/07/2024 10:48:01 03/07/2024 11:37:38 Hyperglycemia due to type 2 diabetes mellitus 2293562179 13054 E11.65 [address]ulin tr eated type 2 diabetes mellitus 163022907 Z79.4 Liver enzy mes level above reference range 228514066 R74.01 Vitamin D deficiency 347 52491 E55.9 on supplement ation, compliance discussed. Urinary tr act infectious disease 89385703 N39.0 -Has fatigue could be uti, will renally dose with levaquin every other day.-Advis ed to monitor glucose.-H ydration enforced. Hyperkalemia 36049306 E8 7.5 -ECG done 03/01/24 visit. Insomnia 473167754 G47.0 0 Reviewed the risk of benzo use. Will continue current regimen till, advised to follow up with sleep medicine for sleep study. Hypertensi ve renal disease 11889463 I12.9 Advised to increase amlodipine to 2 (2.5mg) he has a follow up with renal in 2 weeks. Advised to monitor to bp then. I will re-check with him in 1 week. Chronic ki dney disease stage 4 465446882 N18.4 Cont. renal follow up. [id number] Vivi De MD Main Office [address] [address] 04/11/2024 10:54:20 04/11/2024 12:28:00 Hyperglycemia due to type 2 diabetes mellitus 3016925716 71061 E11.65 Follows endo. Insulin tr eated type 2 diabetes mellitus 613115487 Z79.4 Liver enzy mes level above reference range 533166837 R74.01 Vitamin D deficiency 347 24651 E55.9 on supplement ation followed by renal. Insomnia 628574278 G47.0 0 -Reviewed the risk of benzo use. Will continue current regimen, Advised to follow up with sleep medicine for sleep study. Hypertensi ve renal disease 46764571 I12.9 Advised to increase amlodipine to 2 (2.5mg) he has a follow up with renal in 2 weeks. Advised to monitor to bp then. I will re-check with him in 1 week. Chronic ki dney disease stage 4 079294985 N18.4 Cont. renal follow up. Influenza vaccine needed 6881644558 106 Z23 65 YEARS AND OLDER Urinary tr act infectious disease 96911201 N39.0 Resolved after tx. [id number] Vivi De MD Main Office [address] [place] [address] 05/17/2024 14:27:11 05/17/2024 15:24:40 Ulcer of foot 34927776 L97.919 He is a diabetic, will cover with abx (bactrim), Granulatio n tissue noted. Area marked 5.5x5.5 cm.CrCl > 30 , Calculated with January 2024 Cr, calculated to be 33.Advised to keep area clean and dry.Angel r protection with Vaseline.A void pedicure.R eferral to top spotter provided.Vaibhav alfredo glycemic control encouraged Follow up 1 week. [id number] Felicita Cai Main Office [address] [place] [address] 05/27/2024 15:08:01 05/27/2024 15:44:58 Ulcer of foot [id number] L97.919 Area is healing well has granulatio n tissue.He did not see top spotter . I will refer to wound clinic due to compliance issues and the fact that he is a diabetic,N o further abx needed at this time.Encou raged glycemic control.En couraged to keep the area covered and protected. [id number] Chapito Paz MD Main Office [address] [place] [address] 08/03/2024 14:24:21 08/03/2024 15:28:21 Edema of lower extremity [id number] R60.0 This is most likely related to his kidney disease. Will recheck kidney labs and will also check a proBNP. Heart failure is a possibilit y but will hold off on an ECHO. Doubt DVT since both LE's are involved. We discussed a reduced salt diet as well as elevation. [id number] Vivi De MD Main Office [address] [facility] [address] [facility] [place] [address] 08/22/2024 15:00:03 08/22/2024 16:16:31 Adult health examination [id number] Z00.00 Patient was counseled on healthy diet, exercise and nutrition due to Body mass index is 30.6 kg/m? ? ?. Last PSADate: 03/01/24Resu lt: 2.9Plan: past age for screening Last Colonoscop y:Date: 09/15/2019R esult: acute colitisPla n: tells me next due in 10 yrs, Vaccines:T d: 03/05/22Zos ter rec: Script provided [id number] : 03/05/18PPS V23: 07/23/12, 04/15/19PCV 20: DiscussedI nfluenza: 04/11/24Cov id: encourage updated vaccineRSV : Discussed Routine labs today Immunizati on status reviewed. Will screen based on risk factors. Regular dental and ophtho care advised as well as seat belt and sunscreen use. Distracted driving discussed. Medication reconciled . Advance directives discussed. Advance di rective discussed with patient [id number] Z71.89 MOLST/HCP provided and discussed. Renal diso rder due to type 2 diabetes mellitus 373412211 E11.22 tx per [facility] endo, microalbum in ordered, will fax to endo along with CMP and lipids.[place] rly Ophthalmol ogy exam advisedFol cady Renal Dr. Reynolds d profile ordered - On statin.Cou nselled about regular physical activityCo unselled on dietAdvise d regarding risks/sign s/symptoms of hypoglycem ia. Counseled to carry a snack in case of emergencie sAdvised to check fingerstic k glucose at home Diabetic on insulin 1707 67071 Z79.4 Hyperlipidemia 61478317 E78.5 Z00.00 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 74399585 D64.9 Will continue to monitor in 3 mo visit. Gout 19111434 M10.9 Hyperkalemia 94681132 E8 7.5 Fatigue 17855211 R53.83 Z00.00 Insomnia 999012991 G47.0 0 -Reviewed the risk of benzo use. Will continue current regimen, Advised to follow up with sleep medicine for sleep study. Varicella vaccination 68 864131 Z23 Chronic ki dney disease stage [address] Martínez advised regular follow up. Alkaline p hosphatase above reference range 830859191 R74.8 Vitamin D deficiency 347 73203 E55.9 on supplement ation followed by renal. Hypertensi ve renal disease 58890864 I12.9 Bp elevated increase amlodipine to 10mg. Follow up 1 mo. [id number] Vivi De MD Main Office [address] [facility] [place] [address] 11/02/2024 09:34:28 11/02/2024 10:57:07 Fever 546210180 R50.9 fever of unknown etiology - d/w Dr. De - check labs, urine, cxrwill rx c empiric abx - to help keep him out of the hospitalre commend probiotics while on abx Chronic ki dney disease stage 4 904619500 N18.4 cont lasix 40mg bid as per renal - next f/u c renal next wedmost likely has cardiorena l syndrome*w ill fwd copy of this ov note to renal* Renal diso rder due to type 2 diabetes mellitus 041754985 E11.22 cont meds, f/u c endo as dir Heart failure 11014620 I 50.9 as per renal note last week was hypervolem ic - began lasix 40mg bid - see [place] 24 lbs from renal ov last weekmost likely has HFpEF d/t results of echo 1.23.25 (see above)chec k labsrec avoid saltdoes not appear pt sees cardiologi st - will discuss c pt at f/u visit next week Dysuria 11892738 R30.0 [id number] Vivi De MD Main Office [address] [facility] [place] [address] 11/14/2024 08:24:29 11/14/2024 09:22:59 Venereal disease screening 691805529 Z11.3 Left flank pain 30225648 9 R10.9 Fever 729601420 R50.9 Pneumonia caused by respiratory syncytial virus 557945548 J12.1 Chill 69236543 R68.83 Health Concerns Section Related Observation LastModified by Organization Detai ls LastModified Time None Recorded Concern Status LastModified by Organization Details LastModified Time None Recorded Advance Directives Directive Y: Anne-Marie Waggoner (sister) Payers Encounter Date Sequence Insurance Name Policy Number Policy Frederick Covered Member ID Frederick Member ID Guarantor Name 05/27/2024 1 [facility] (MEDICARE REPLACEMENT/A DVANTAGE - PPO) [id number] Ryan Waggoner [id number] Ryan Waggoner 08/03/2024 1 [facility] (MEDICARE REPLACEMENT/A DVANTAGE - PPO) [id number] Ryan Waggoner [id number] Ryan Wade [place] 08/22/2024 1 [facility] (MEDICARE REPLACEMENT/A DVANTAGE - PPO) [id number] Ryan Waggoner [id number] Ryan [place] 11/02/2024 1 [facility] (MEDICARE REPLACEMENT/A DVANTAGE - PPO) [id number] Ryan Waggoner [id number] Ryan [place] 11/14/2024 1 [facility] (MEDICARE REPLACEMENT/A DVANTAGE - PPO) [id number] Ryan Waggoner [id number] Ryan Waggoner Notes Date Note Type Note Provider Name and Address Organization Details Recorded Time 05/27/2024 text/html Follow up for r ankle wound check, healing well. Completed Bactrim, notes the wound size is decreasing, and improving, has not used anymore cortisone cream or hand calker. Did schedule a podiatry follow up. Felicita lucia, [facility] 06/08/2024 15:23:11 08/03/2024 text/html He has been [...] had variable control. Chapito Paz MD [address] [facility] [address], [place], [address], [facility] 08/03/2024 18:09:03 08/22/2024 text/html Medicare Annual [...] not at goal. Continues to work with [facility] Endo Follows renal for CKD4 Vivi De MD [address] [facility] [address], [place], [address] 08/22/[facility]24 17:25:23 11/02/2024 text/html here for hospita l f/u - pna, rsv == no dc summary to [place]app[place] [facility] - discharged on 3.since then, has seen renal and endo - [...] but h/o recurrent uti's Vivi De MD [address] [address], [place], [address], [facility] 11/04/2024 12:23:31 11/14/2024 text/html The patient pres [...] is also under the care of a framing consultant and reports feeling much better overall. Prior to his hospitalization, he experienced chills. His son questioned whether Lasix could have contributed to his symptoms. However, the patient currently denies any chills and continues to take Lasix as prescribed by his framing consultant. They also inquired about refills for sodium bicarbonate and sodium polystyrene sulfonate, both prescribed by the framing consultant; I advised them to contact that provider [...] the importance of close follow-up with his framing consultant and advised that acetaminophen is the safest [id number]-myzuqnj pain reliever for him, not exceeding 3 grams in 24 hours, with a suggested dose of (2) 500 mg every 6 hours as needed. He is overdue for follow-up with his urologist, and I encouraged him to call their office to schedule an appointment. As for his recovery from RSV and secondary pneumonia, he is currently afebrile and asymptomatic. Vivi De MD [address], [address], [facility] [place] 11/14/2024 10:39:22
[2024-11-21 13:57] LABS: HBS Num1 12.22 mIU/mL (0-7.99); HBc Num1 4.08 S/CO (0.00-0.79); HBsAGNum1 0.38 S/CO (0.00-0.99); Hepatitis B Surface Antigen Negative (Negative); ~Hepatitis B Surface Antibody REACTIVE (Nonreactive)
[2024-11-22 08:40] LABS: HBc Num2 4.08 S/CO; HBc Num3 4.01 S/CO; Hepatitis B Core Antibody Reactive (Nonreactive)
[2024-11-22 15:54] LABS: Hepatitis B Viral DNA Qn - cp NOT DETECTED Log IU/mL (NOT DETECTED); Hepatitis B Viral DNA Qn-IU/mL NOT DETECTED (NOT DETECTED)
[2024-11-23 19:14] LABS: Hepatitis BE Antigen NON-REACTIVE (NON-REACTIVE)
[2024-11-26 05:44] LABS: Hepatitis B Core Antibody IgM NON-REACTIVE (NON-REACTIVE)
[2024-12-07 14:20] LABS: Hepatitis Delta Antibody POSITIVE
== END 2024-11-21 10:37 | disposition home or self-care (01) ==
LOC: HO.HMGCLDS 10:36
PROVIDERS: PCP Family Medicine; Referring Provider Family Medicine; Visit Provider Internal Medicine Nephrology
DX: R76.8 Other specified abnormal immunological findings in serum (principal); B19.11 Unspecified viral hepatitis B with hepatic coma
CPT/HCPCS: 36415; 86692; 86704; 86705; 86706; 87340; 87350; 87517

== ENCOUNTER 2024-12-13 12:53 | Outpatient (REF) | payer MEDICARE, SELFPAY ==
--- OUTSIDE RECORDS SUMMARY | 2024-12-13 13:56 | XMS_ITS | Clinical Summary ---
Author Organization [facility] Address [address] [place] [phone] Phone Care Team Providers Care Geometrician Name Role Phone Joanna Angeles MD Primary Care Provider [phone] Allergies Active Allergy Reactions Criticality Noted Date [...] A1c (%). Testing performed or reported by ~[facility], ~a Service of [facility], ~[address] [place] [address]~ 03/21/2019 2:49 PM EDT us Chris Martínez MD LAB BLOOD ORDERABLES Final Resul t [facility] 3 from Last 3 Months or Most Recently Relevant to Health Maintenance Insurance [facility] Medicare [facility] [place] [address] Care Teams Geometrician Relationship Specialty Start Date End Date Joanna Angeles MD [address] [address] PCP - General Family Medicine 02/17/23
--- OUTSIDE RECORDS SUMMARY | 2024-12-13 13:57 | XMS_ITS | Clinical Summary ---
Author Organization [facility] Address [address] [place] [address] Care Team Providers Care Last Repairer Name Role Phone Unavailable Primary Care [...] Documents on File Type Date Recorded Patient Frame Operator Expl anation Health Care Decision (hx) 02/27/2023 HE ALTH CARE PROXY Health Care Decision (hx) 02/27/2023 HE ALTH CARE PROXY Health Care Decision (hx) 02/27/2023 HE ALTH CARE PROXY
--- OUTSIDE RECORDS SUMMARY | 2024-12-13 13:57 | XMS_ITS | Clinical Summary ---
Author Organization [facility] Address [address] [place] [address] Care Team Providers Care Applied Psychology Professor Name Role Phone Unavailable Primary Care Provider [...] (two) times a day. 120 tablet 10/22/2024 Active atorvastatin (LIPITOR) 40 MG tabletIndication s:Acute hypoxic respiratory failure (HCC) Take 1 tablet (40 mg total) by mouth daily. 30 tablet 10/22/2024 Active amLODIPine (NORVASC) 10 MG tabletIndication s:Acute hypoxic respiratory failure (HCC) Take 1 tablet (10 mg total) by mouth daily. 30 tablet 10/22/2024 Active predniSONE (DELTASONE) 10 MG tabletIndication s:Acute [...] day with meals. 90 packet 10/22/2024 Active Active Problems Problem Noted Date Diagnosed Date Acute hypoxic respiratory failure 10/18/2024 Encounters Date Type Department Care Team Description 10/18/2024 4:00 PM EDT Ancillary Procedure [facility] [address] [place] [address] Provider, File Room 10/18/2024 10:27 AM EDT - 10/22/2024 11:46 AM EDT Hospital Encounter [facility] [address] [address] Marcelino Garcia MD Elias, Michael, MD Javed, MD Lucía Joshi, MD Christal Acute hypoxic respiratory failure (HCC) (Primary Dx); Pneumonia due to infectious organism, unspecified laterality, unspecified part of lung Discharge Disposition: Home or Self Care 10/17/2024 Orders Only [facility] [address] [place] [address] Provider, File Room from Last 3 Months Social History Tobacco Use Types Packs/Day Years Used Date Smoking Tobacco: Never Assessed [facility] Utilities Answer Date Recorded In the past 12 months has [employer] electric, gas, oil, or water [employer] threatened to shut off services in your [...] any time in the past [facility], were you homeless or living in a long-term (including now)? No 10/21/2024 Sex and Gender [...] - Risk 60-74 years 1-dose series) 2013 COVID-19 Vaccine ( season) 2024 06/23/2021, 09/14/2020, 08/17/2020 Influenza Vaccine 02/24/2025 06/12/2022, , 06/04/2020, Additional history exists Hepatitis B Vaccines Aged Out No long [...] URINE Routine 10/18/2024 5:26 PM EDT LEGIONELLA AND STREPTOCOCCUS PNEUMONIAE ANTIGEN, URINE Routine 10/18/2024 5:26 [...] - 11.0 Thou/uL 10/22/2024 8:07 AM EDT [facility] Platelet Count 243 150 - 450 Thou/uL 10/22/2024 8:07 AM EDT [facility] Hemoglobin 8.4(L) 13.0 - 17.7 g/dL 10/22/2024 8:07 AM EDT [facility] Hematocrit 26.7(L) 39.0 - 54.0 % 10/22/2024 8:07 AM EDT [facility] Red Blood Cell Count 2.87(L) 4.50 - 6.20 Mil/uL 10/22/2024 8:07 AM EDT [facility] MCV 93 80 - 100 fL 10/22/2024 8:07 AM EDT [facility] MCH 29.3 27.0 - 31.0 pg 10/22/2024 8:07 AM EDT [facility] MCHC 31.5 30.0 - 36.0 g/dL 10/22/2024 8:07 AM EDT [facility] RDW 14.6(H) 11.5 - 14.5 % 10/22/2024 8:07 AM EDT [facility] MPV 11.0 7.5 - 12.5 fL 10/22/2024 8:07 AM EDT [facility] nRBC 0.5(H) 0.0 - 0.1 /100 WBC 10/22/2024 8:07 AM EDT [facility] nRBC, Absolute 0.06(H) 0.00 - 0.02 Thou/uL 10/22/2024 8:07 AM EDT [facility] Bands Man 4 % 10/22/2024 9:31 AM EDT [facility] Neutrophils Man 86 % 9:31 AM EDT [facility] Lymphocytes Man 7 % 9:31 AM EDT [facility] Monocytes Man 3 % 10/22/2024 9:31 AM EDT [facility] Abs Neutrophils Count (ANC) 10.6(H) 2.0 - 7.5 Thou/uL 10/22/2024 9:31 AM EDT [facility] Abs Lymphocytes Man 0.8(L) 1.5 - 4.5 Thou/uL 10/22/2024 9:31 AM EDT [facility] Abs Monocytes Man 0.4 0.2 - 1.5 Thou/uL 10/22/2024 9:31 AM EDT [facility] Macrocytes Occasional 10/22/2024 9:[address] [facility] Polychromasia Occasional 10/22/2024 9:31 AM EDT [facility] Hypochromia Occasional 10/22/2024 9:31 AM EDT [facility] Spherocytes Occasional 10/22/2024 9:31 AM EDT [facility] Blood Blood specimen / Unknown 10/22/2024 7:49 AM EDT 10/22/2024 8:00 AM EDT us Christal Castrejon MD LAB BLOOD ORDERABLES Final Resul t [facility] [address] [place] [address], * (ABNORMAL) Basic Metabolic Panel (Early AM) (10/22/2024 7:49 AM EDT) Only the most recent of2 resultswithin the time period is included. Glucose 145(H) 74 - 106 mg/dL 10/22/2024 8:37 AM EDT [facility] Comment:Fasting: <100 mg/dL, Non-Fasting: <200 mg/dL (ADA 2004) Blood Urea Nitrogen (BUN) 107(H) 9 - 23 mg/dL 10/22/2024 8:37 AM EDT [facility] Creatinine 6.1(H) 0.7 - 1.3 mg/dL 10/22/2024 8:37 AM EDT [facility] eGFR 9(L) >59 10/22/2024 8:37 AM EDT [facility] Comment:CKD-EPI (2020) in mL /min/1.73 sq meters. Sodium 146(H) 136 - 145 mmol/L 10/22/2024 8:37 AM EDT [facility] Potassium 3.8 3.4 - 4.5 mmol/L 10/22/2024 8:37 AM EDT [facility] Chloride 107 98 - 107 mmol/L 10/22/2024 8:37 AM EDT [facility] CO2 23 20 - 31 mmol/L 10/22/2024 8:37 AM EDT [facility] Anion Gap 16(H) 5 - 15 10/22/2024 8:37 AM EDT [facility] Calcium 8.2(L) 8.7 - 10.5 mg/dL 10/22/2024 8:37 AM EDT [facility] BUN/Creatinine Ratio 18 10.0 - 25.0 Ratio 10/22/2024 8:37 AM EDT [facility] Blood Blood specimen / Unknown 10/22/2024 7:49 AM EDT 10/22/2024 8:00 AM EDT us Christal Castrejon MD LAB BLOOD ORDERABLES Final Resul t [facility] [address] [place] [address], * (ABNORMAL) POCT Glucose, Fingerstick (10/22/2024 7:42 AM EDT) Only the most recent of20 resultswithin the time period is included. POC Glucose 150(H) 65 - 99 mg/dL [...] previous study for comparison in our system. us Hadley Johnson MD CV ECHO ORDERABLES Final Result * (ABNORMAL) PHOSPHORUS (10/20/2024 5:31 AM EDT) Only the most recent of3 resultswithin the time period is included. Phosphorus 6.1(H) 2.4 - 5.1 mg/dL 10/20/2024 6:13 AM EDT [facility] Blood Blood specimen / Unknown 10/20/2024 5:31 AM EDT 10/20/2024 5:37 AM EDT us Hadley Johnson MD LAB BLOOD ORDERABLES Final Resu lt [facility] [address] [place] [address], * MAGNESIUM (10/20/2024 5:31 AM EDT) Only the most recent of3 resultswithin the time period is included. Magnesium 2.1 1.6 - 2.6 mg/dL 10/20/2024 6:13 AM EDT [facility] Blood Blood specimen / Unknown 10/20/2024 5:31 AM EDT 10/20/2024 5:37 AM EDT us Hadley Johnson MD LAB BLOOD ORDERABLES Final Resu lt [facility] [address] [place] [address], * (ABNORMAL) Comprehensive Metabolic Panel (10/20/2024 5:31 AM EDT) Only the most recent of3 resultswithin the time period is included. Glucose 141(H) 74 - 106 mg/dL 10/20/2024 6:13 AM EDT [facility] Comment:Fasting: <100 mg/dL, Non-Fasting: <200 mg/dL (ADA 2004) Blood Urea Nitrogen (BUN) 100(H) 9 - 23 mg/dL 10/20/2024 6:13 AM EDT [facility] Creatinine 6.6(H) 0.7 - 1.3 mg/dL 10/20/2024 6:13 AM EDT [facility] eGFR 8(L) >59 10/20/2024 6:13 AM EDT [facility] Comment:CKD-EPI (2020) in mL /min/1.73 sq meters. Sodium 143 136 - 145 mmol/L 10/20/2024 6:13 AM EDT [facility] Potassium 4.0 3.4 - 4.5 mmol/L 10/20/2024 6:13 AM EDT [facility] Chloride 108(H) 98 - 107 mmol/L 10/20/2024 6:13 AM EDT [facility] CO2 22 20 - 31 mmol/L 10/20/2024 6:13 AM EDT [facility] Calcium 7.4(L) 8.7 - 10.5 mg/dL 10/20/2024 6:13 AM EDT [facility] Alkaline Phosphatase 150(H) 45 - 128 U/L 10/20/2024 6:13 AM EDT [facility] Aspartate Aminotrans (AST) 37(H) <34 U/L 10/20/2024 6:13 AM EDT [facility] Alanine Aminotrans (ALT) 23 10 - 49 U/L 10/20/2024 6:13 AM EDT [facility] Bilirubin, Total 0.2(L) 0.3 - 1.2 mg/dL 10/20/2024 6:13 AM EDT [facility] Protein, Total 6.8 5.7 - 8.2 g/dL 10/20/2024 6:13 AM EDT [facility] Albumin 3.5 3.4 - 4.8 g/dL 10/20/2024 6:13 AM EDT [facility] BUN/Creatinine Ratio 15 10.0 - 25.0 Ratio 10/20/2024 6:13 AM EDT [facility] Globulin 3.3 1.5 - 3.9 g/dL 10/20/2024 6:13 AM EDT [facility] Albumin/Globulin Ratio 1.0(L) 1.5 - 2.5 Ratio 10/20/2024 6:13 AM EDT [facility] Anion Gap 13 5 - 15 10/20/2024 6:13 AM EDT [facility] Blood Blood specimen / Unknown 10/20/2024 5:31 AM EDT 10/20/2024 5:37 AM EDT us Hadley Johnson MD LAB BLOOD ORDERABLES Final Resu lt [facility] [address] [place] [address], [place] * (ABNORMAL) POCT Blood Gas, Arterial (10/19/2024 3:46 PM EDT) Only the most recent of5 resultswithin the time period is included. Sample Type Arterial 10/19/2024 3:48 PM EDT [facility] Lab pH, Arterial 7.36 7.35 - 7.45 10/19/2024 3:48 PM EDT [facility] Lab pCO2, Arterial 36 35 - 45 mmHG 10/19/2024 3:48 PM EDT [facility] Lab pO2, Arterial 48(LL) 80 - 100 mmHG 10/19/2024 3:48 PM EDT [facility] HCO3 20.0(L) 22 - 26 mmol/L 10/19/2024 3:48 PM EDT [facility] O2 Saturation, Arterial 79.0(L) 95 - 100 % 10/19/2024 3:48 PM EDT [facility] Base Deficit, Arterial 4.5 mmol/L 10/19/2024 3:48 PM EDT [facility] Comment:REFERENCE RANGE: NEG ATIVE 2 TO POSITIVE 2 Liter Flow, I-STAT 3.0 10/19/2024 3:48 PM EDT [facility] Lab Comments POC VENOUS 10/19/2024 3:48 PM EDT [facility] 10/19/2024 3:46 PM EDT 10/19/2024 3:48 PM EDT Hadley Johnson MD POCT ORDERABLES - DEVICE Final Result [facility] [address] [place] [address], [facility],Pulmonary Lab [address] [facility], [place] * XR Chest 1 view-Portable [...] is included. Ventricular rate 94 BPM EKG [facility] Atrial rate 94 BPM EKG [facility] P-R interval 138 ms EKG [facility] QRS duration 88 ms EKG [facility] Q-T interval 386 ms EKG [facility] QTC calculation (Bazett) 483 ms EKG [facility] P axis 60 degrees EKG [facility] R axis 19 degrees EKG [facility] T axis 55 degrees EKG [facility] 10/19/2024 9:20 AM EDT Narrative EKG [facility] - 10/19/2024 9:41 AM EDT Normal sinus rhythm Prolonged QT Abnormal ECG When compared with ECG of 18-Oct-2024 11:36, No significant change was found Confirmed by MD Troy, Roland ([id number]) on 10/19/2024 9:41:44 AM Procedure Note Roland Simmons MD - 10/19/2024 Normal sinus rhythm Prolonged QT Abnormal ECG When compared with ECG of 18-Oct-2024 11:36, No significant change was found Confirmed by MD Simmons Venu ([id number]) on 10/19/2024 9:41:44 AM us Hadley Johnson MD ECG ORDERABLES Final Result Performing Organization Address [facility] Co de Phone Number EKG [facility] * (ABNORMAL) POCT, Ionized Calcium (10/18/2024 11:02 PM EDT) POC Ionized Calcium 4.30(L) 4.60 - 5.32 mg/dL 10/18/2024 11:06 PM EDT [facility] Smear Cmt LEFT RADIAL POSITIVE COLLATERAL No comment 10/18/2024 11:06 PM EDT [facility] 10/18/2024 11:0 2 PM EDT 10/18/2024 11:05 PM EDT us Hadley Johnson MD POCT ORDERABLES - DEVICE Final Result Performing Organization Address [facility] Co de Phone Number [facility] [address] [place] [address], [facility],Pulmonary Lab [address] [place], [place] * POCT, Lactate (10/18/2024 11:02 PM EDT) Lactate, POC 0.6 0.4 - 0.8 mmol/L 10/18/2024 11:06 PM EDT [facility] Comment LEFT RADIAL POSITIVE COLLATERAL No comment 10/18/2024 11:06 PM EDT [facility] 10/18/2024 11:0 2 PM EDT 10/18/2024 11:05 PM EDT us Hadley Johnson MD POCT ORDERABLES - DEVICE Final Result Performing Organization Address City/[facility]/ZIP Co de Phone Number [facility] [address] [place] [address], [facility],Pulmonary Lab [address] [facility], [place] * POCT, Sodium (10/18/2024 11:02 PM EDT) Sodium 138 136 - 145 mmol/L 10/18/2024 11:06 PM EDT [facility] Smear Comm LEFT RADIAL POSITIVE COLLATERAL No comment 10/18/2024 11:06 PM EDT [facility] 10/18/2024 11:0 2 PM EDT 10/18/2024 11:05 PM EDT us Hadley Johnson MD POCT ORDERABLES - DEVICE Final Result Performing Organization Address [facility] Co de Phone Number [facility] [address] [place] [address], [facility],Pulmonary Lab [address] [facility], [place] * POCT, Potassium (10/18/2024 11:02 PM EDT) Potassium 4.3 3.5 - 5.1 mmol/L 10/18/2024 11:06 PM EDT [facility] Comment LEFT RADIAL POSITIVE COLLATERAL No comment 10/18/2024 11:06 PM EDT [facility] 10/18/2024 11:0 2 PM EDT 10/18/2024 11:05 PM EDT us Hadley Johnson MD POCT ORDERABLES - DEVICE Final Result Performing Organization Address City/[facility]/ZIP Co de Phone Number [facility] [address] [place] [address], [facility]Pulmonary Lab [address] [facility], [place] * (ABNORMAL) POCT, Hematocrit (10/18/2024 11:02 PM EDT) Hematocrit 25.0(L) 40 - 50 % 10/18/2024 11:06 PM EDT [facility] Comment LEFT RADIAL POSITIVE COLLATERAL 10/18/2024 11:06 PM EDT [facility] 10/18/2024 11:0 2 PM EDT 10/18/2024 11:05 PM EDT us Hadley Johnson MD POCT ORDERABLES - DEVICE Final Result [facility] [address] [place] [address], [facility],Pulmonary Lab [address] [place], [place] * (ABNORMAL) POCT, Glucose (10/18/2024 11:02 PM EDT) Glucose POC 206(H) 70 - 108 mg/dL 10/18/2024 11:06 PM EDT [facility] Comment LEFT RADIAL POSITIVE COLLATERAL No comment 10/18/2024 11:06 PM EDT [facility] 10/18/2024 11:0 2 PM EDT 10/18/2024 11:05 PM EDT us Hadley Johnson MD POCT ORDERABLES - DEVICE Final Result [facility] [address] [place] [address], [facility],Pulmonary Lab [address] [place], [place] * POCT, Cooximetry (10/18/2024 11:02 PM EDT) Carboxyhemoglobin 0.0 % 025 11:06 PM EDT [facility] Methemoglobin 0.7 % 10/18/2024 11:06 PM EDT [facility] Oxyhemoglobin, POC 94.8000 % 2024 11:06 PM EDT [facility] Reduced Hemoglobin 4.5 % 2024 11:06 PM EDT [facility] Hemoglobin, POC 8.4 11:06 PM EDT [facility] POC Sample Type Arterial 11:06 PM EDT [facility] Comment LEFT RADIAL POSITIVE COLLATERAL 10/18/2024 11:06 PM EDT [facility] 10/18/2024 11:0 2 PM EDT 10/18/2024 11:05 PM EDT Hadley Johnson MD POCT ORDERABLES - DEVICE Final Result [facility] [address] [place] [address], [facility],Pulmonary Lab [address] [place], [place] * (ABNORMAL) Urinalysis with Reflex to Microscopic and Culture (10/18/2024 5:26 PM EDT) Color Yellow 10/18/2024 9:15 PM EDT [facility] Clarity Clear 10/18/2024 9:15 PM EDT [facility] Specific [place] 1.016 1.003 - 1.030 10/18/2024 9:15 PM EDT [facility] pH 5.0 5.0 - 8.0 10/18/2024 9:15 PM EDT [facility] Leukocyte Esterase Negative Negative 10/18/2024 9:15 PM EDT [facility] Nitrite Negative Negative 10/18/2024 9:15 PM EDT [facility] Protein Large (300 mg/dL)(A) Negative 10/18/2024 9:15 PM EDT [facility] Glucose Moderate 0 - 99 mg/dL 10/18/2024 9:15 PM EDT [facility] Ketones Negative Negative 10/18/2024 9:15 PM EDT [facility] Blood Large(A) Negative 10/18/2024 9:15 PM EDT [facility] Urobilinogen 0.2 0.2 - 1.0 EU/dL 10/18/2024 9:15 PM EDT [facility] Bilirubin Negative Negative 10/18/2024 9:15 PM EDT [facility] WBC 9(H) 0 - 4 per hpf 10/18/2024 9:15 PM EDT [facility] RBC 50(H) 0 - 4 per hpf 10/18/2024 9:15 PM EDT [facility] Bacteria Negative Negative 10/18/2024 9:15 PM EDT [facility] Squamous Epithelial Cells 2 per hpf 10/18/2024 9:15 PM EDT [facility] Hyaline Casts 1 0 - 4 per lpf 10/18/2024 9:15 PM EDT [facility] Yeast Absent Absent 10/18/2024 9:15 PM EDT [facility] Urine Urine specimen obtained by clean catch procedure / Unknown 10/18/2024 5:26 PM EDT 10/18/2024 8:56 PM EDT us Hadley Johnson MD URINE ORDERABLES Final Result Performing Organization Address City/State/[facility] Co de Phone Number [facility] [address] [place] [address], * Legionella & Streptococcus Pneumoniae Antigen, Urine (10/18/2024 5:26 PM EDT) Legionella Antigen EIA, Urine Presumptive Negative Presumptive Negative 10/19/2024 8:59 AM EDT [facility] Comment: Presumptive Negative for [...] Negative Presumptive Negative 10/19/2024 8:59 AM EDT [facility] Comment:Presumptive Negative for Pneumococcal Pneumonia, suggesting no recent or current Pneumococcal Infection. Infection due to S.pneumoniae cannot be ruled out since the antigen level present in the specimen may be below the detection limit of the test. Urine Urine specimen / Unknown 10/18/2024 5:26 PM EDT 10/18/2024 8:57 PM EDT us Hadley Johnson MD URINE ORDERABLES Final Result [facility] [address] [place] [address], [place] * Protein/Creatinine Ratio Panel, Urine (10/18/2024 5:26 PM EDT) Protein Urine, Random 338 mg/dL 10/18/2024 10:06 PM EDT [facility] Comment:Reference range not established for random specimen. Creatinine, Urine, Random 114 mg/dL 10/18/2024 9:30 PM EDT [facility] Comment:Reference range not established for random specimen. Protein/Creatini ne Ratio, Urine 2.96 10/18/2024 10:06 PM EDT [facility] Urine Urine specimen / Unknown 10/18/2024 5:26 PM EDT 10/18/2024 8:57 PM EDT us Hadley Johnson MD URINE ORDERABLES Final Result [facility] [address] [place] [address], [place] * CT Chest/abdomen+pelvis w/o contrast (10/18/2024 [...] FILMS Final Resu lt Performing Organization Address City/[facility]/ZIP Co de Phone Number NIMESH [phone] * (ABNORMAL) PTH, Intact (10/18/2024 3:00 PM EDT) PTH, Intact 755(H) 18 - 80 pg/mL 10/18/2024 4:18 PM EDT [facility] Blood Blood specimen / Unknown 10/18/2024 3:00 PM EDT 10/18/2024 3:39 PM EDT Hadley Johnson MD LAB BLOOD ORDERABLES Final Resu lt Performing Organization Address City/[facility]/ZIP Co de Phone Number [facility] [address] [place] [address], * Nasal MRSA Screen, PCR (10/18/2024 2:45 PM EDT) MRSA Result Not Detected Not Detected 4:16 PM EDT [facility] Swab, Anterior Nares Specimen from nose / Unknown 10/18/2024 2:45 PM EDT 10/18/2024 2:58 PM EDT us Hadley Johnson MD MICROBIOLOGY - GENERAL ORDERABL ES Final Result Performing Organization Address [facility] [place] [address], * Lactic Acid, Plasma (STAT) (10/18/2024 1:43 PM EDT) Lactic Acid 1.2 0.5 - 1.9 mmol/L 10/18/2024 2:11 PM EDT [facility] Blood Blood specimen / Unknown 10/18/2024 1:43 PM EDT 10/18/2024 1:49 PM EDT us Hadley Johnson MD LAB BLOOD ORDERABLES Final Resu lt Performing Organization Address [facility] [place] [address], [place] * Blood Culture (10/18/2024 12:11 PM EDT) Only the most recent of2 resultswithin the time period is included. Culture Sterile after 5 days 10/23/2024 7:06 AM EDT [facility] Blood Blood specimen / Unknown 10/18/2024 12:11 PM EDT 10/18/2024 12:42 PM EDT Comment:Blood us Hadley Johnson MD LAB BLOOD ORDERABLES Final Resu lt Performing Organization Address [facility] [facility]/ZIP Co de Phone Number [facility] [address] [place] [address], [place] * (ABNORMAL) B-Hydroxybutyrate (10/18/2024 12:09 PM EDT) B-Hydroxybutyrate 0.30(H) <0.28 mmol/L 10/18/2024 2:02 PM EDT [facility] Comment: In the presence of uncontrolled diabetes, serum beta-hydroxybutyrate levels greater than or equal to 3.80 mmol/L (patients age 16 and over) or greater than or equal to 3.00 mmol/L (patients under age 16) support a clinical diagnosis of Diabetic Ketoacidosis (DKA) - Ref: Diabetes Care 31: 643 (2008). 10/18/2024 12:0 9 PM EDT 10/18/2024 12:44 PM EDT us Hadley Johnson MD LAB BLOOD ORDERABLES Final Resu lt [facility] [address] [place] [address], from Last 3 Months Insurance [employer] [place] MEDICARE Advance Directives * Full Code (Latest Code Status on File) Date Activated Date Inactivated Comments 10/18/2024 11:07 AM
--- OUTSIDE RECORDS SUMMARY | 2024-12-13 13:58 | XMS_ITS | Encounter Summary ---
Author Organization [facility] Address [address] [place] [address] Phone Care Team Providers Care Dismantler Name Role Phone Joanna Angeles MD Primary Care Provider [phone] Reason for Visit * Reason Comments Med Refill Encounter Details Date Type Department Care Team ([facility] st Contact Info) Description 06/09/2023 Refill [facility] [address] [place] [address] Ahmet Oviedo MD [address] [facility] [address] [place] [address] Social History Tobacco Use Types [...] on filedocumented in this encounter Care Teams Dismantler Relationship Specialty Start Date End Date Joanna Angeles MD [address] [facility] [address] [place] [phone] PCP - General Family Medicine 02/17/23 documented as of this encounter
[2024-12-13 16:29] LABS: MANUAL DIFF FLAG NO
[2024-12-13 16:37] LABS: Basophils Percent Auto 0.4 % (0-2); Eosinophils Absolute Auto 0.3 X10*3/uL (0.0-0.4); Eosinophils Percent Auto 3.4 % (0-4); Hematocrit 26.9 % (42.0-52.0); Hemoglobin 8.7 g/dl (14.0-18.0); Imm Gran Abs Auto 0.09 X10*3/uL (0.00-0.03); Imm Gran Pct Auto 1.1 % (0.0-0.4); Lymphocytes Absolute Auto 1.4 X10*3/uL (1.2-4.9); Lymphocytes Percent Auto 17.6 % (20-40); Mean Corpuscular HGB Conc 32.3 g/dl (31.0-36.0); Mean Corpuscular Hemoglobin 30.3 pg (27.0-33.0); Mean Corpuscular Volume 93.7 fL (80.0-98.0); Mean Platelet Volume 11.1 fL (9.4-12.4); Monocytes Absolute Auto 0.9 X10*3/uL (0.1-1.2); Monocytes Percent Auto 11.3 % (2-11); Neutrophils Absolute Auto 5.4 x10*3/uL (2.0-8.3); Neutrophils Percent Auto 66.2 % (45-73); Platelet Count 236 X10*3/uL (160-400); Red Blood Count 2.87 X10*6/uL (4.60-5.80); Red Cell Distribution Width 15.5 % (11.0-16.0); White Blood Count 8.1 X10*3/uL (4.8-10.8)
[2024-12-13 17:06] LABS: Anion Gap 14 (12-20); Blood Urea Nitrogen 63 mg/dL (9-16); Calcium 7.9 mg/dL (8.4-10.2); Carbon Dioxide 21 mmol/L (22-29); Chloride 109 mmol/L (96-108); Estimated Glomerular Filt Rate 12; Iron 59 mcg/dL (45-160); Percent Iron Saturation 26 % (15-50); Potassium 5.6 mmol/L (3.3-5.1); Sodium 138 mmol/L (135-145); Total Iron Binding Capacity 225 mcg/dL (228-428); Unsaturated Iron Binding 166 ug/dL
== END 2024-12-13 12:54 | disposition home or self-care (01) ==
LOC: HO.HMGCLDS 12:53
PROVIDERS: PCP Family Medicine; Visit Provider Internal Medicine Nephrology
DX: N25.81 Secondary hyperparathyroidism of renal origin (principal); I12.9 Hypertensive chronic kidney disease with stage 1 through stage 4 chronic kidney disease, or unspecified chronic kidney disease; E11.21 Type 2 diabetes mellitus with diabetic nephropathy; N18.4 Chronic kidney disease, stage 4 (severe)
CPT/HCPCS: 36415; 80051; 82310; 82565; 83540; 84520; 85025

== ENCOUNTER 2024-12-14 15:23 | Outpatient (AMB) | payer MEDICARE, SELFPAY ==
--- OUTSIDE RECORDS SUMMARY | 2024-12-14 15:26 | XMS_ITS | Clinical Summary ---
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
--- OUTSIDE RECORDS SUMMARY | 2024-12-14 15:26 | XMS_ITS | Clinical Summary ---
Author Organization [facility] Address [address] [facility] [address] [place] [address] Phone Care Team Providers Care Merry Go Round Operator Name Role Phone Joanna Angeles MD Primary Care Provider [phone] Allergies Active Allergy Reactions Criticality Noted Date [...] A1c (%). Testing performed or reported by ~[facility], ~a Service of [facility], ~[address] [place] [id number]~ 03/21/2019 2:49 PM EDT us Chris Martínez MD LAB BLOOD ORDERABLES Final Resul t [facility] 3 from Last 3 Months or Most Recently Relevant to Health Maintenance Insurance [facility] Medicare [facility] Medicare Care Teams Merry Go Round Operator Relationship Specialty Start Date End Date Joanna Angeles MD [address] [phone] PCP - General Family Medicine 02/17/23
--- OUTSIDE RECORDS SUMMARY | 2024-12-14 15:27 | XMS_ITS | Encounter Summary ---
Author Organization [facility] Address [address] [place] [address] Phone Care Team Providers Care All Round Butcher Name Role Phone Joanna Angeles MD Primary Care Provider [phone] Reason for Visit * Reason Comments Med Refill Encounter Details Date Type Department Care Team ([facility] st Contact Info) Description 06/09/2023 Refill [facility] [address] [place] [address] Ahmet Oviedo MD [address] [facility] [address] [place] [address] Social History Tobacco Use Types [...] on filedocumented in this encounter Care Teams All Round Butcher Relationship Specialty Start Date End Date Joanna Angeles MD [address] [facility] [address] [place] [phone] PCP - General Family Medicine 02/17/23 documented as of this encounter
--- OUTSIDE RECORDS SUMMARY | 2024-12-14 15:27 | XMS_ITS | Data Portability ---
Author Organization [facility], Main Office Address [address] [place] [address] [address] [place] [address] Care Team Providers Care Players [employer] Representative Name Role Phone [facility] Phys. Med[facility] & Rehab JESUS RUBIO Phys. Med. 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 His recent fever and upper respiratory symptoms [...] a kidney stone remains a likely consideration. [email or web address] Not available 11/14/2024 10:39:05 11/23/2024 11/23/2024 On examination today, the patient demonstrates signs consistent with muscle spasm in the lower thoracic and lumbar region, along with tight hip flexors. I have recommended initiating physical therapy and continuing follow-up with his chief quality officer for further musculoskeletal management. Given his chronic kidney disease and proximity to dialysis initiation, I advised against the use of oral medications, including NSAIDs and opioids, to avoid further renal compromise. We have opted for conservative management, including the use of a heating pad and topical treatments such as lidocaine patches. The patient was clearly instructed not to use heating pads concurrently with topical medications or patches due to risk of skin gardner. He should also follow up with his chief quality officer. I provided him with a printed copy of his bone scan order and strongly encouraged him to schedule it as soon as possible, given his elevated alkaline phosphatase, which may indicate possible bone turnover or other pathology. Regarding his recent CT scan of the abdomen and pelvis, I printed a copy for him to share with his urologist, whom he is seeing today. He was advised to follow up on the renal cyst noted and to inform his urologist that no kidney stones were visualized on the scan. In relation to the lung findings noted previously, I have ordered a dedicated CT scan of the chest to be performed six weeks post-illness, in order to assess for resolution and to determine whether the findings were related to recent infection or illness. Additionally, I gave him a copy of the CT abdomen/pelvis to provide to his chief quality officer, so they can confirm that renal pathology such as stones has been ruled out in relation to his back pain. We reviewed his echocardiogram, which shows a preserved ejection fraction. However, clinically, he may have signs of heart failure with preserved ejection fraction (HFpEF), likely secondary to volume overload from advanced kidney disease. He will follow up with me at his next physical, or sooner if needed. 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 [email or web address] Not available 11/23/2024 19:18:46 Plan of Treatment Reminders Order Date Submit Date Provider Last Modified By Organization Details Last Modified Time Details Appointments None record ed. Lab BMP, serum or plasma 2024 025 [facility], [address] [place] [address], [id number], 5 09:34:50 urinal ysis comple te, reflex cultur e 2024 025 [facility], [address] [place] [address], [address], 5 09:34:50 Hepati tis C IgG Ab, qual, serum 2024 025 [facility], [address] [place] [address], [address], 5 10:36:27 HBsAg (hepat itis B surfac e Ag), EIA, serum 2024 025 [facility], [address] [place] [address], [address], 5 10:36:27 HIV 1 + 2, meanin gful use set 2024 025 [facility], [address] [place] [address], [address], 5 10:36:27 trepon omer pallid um IgG + IgM Ab, QL, IA, serum 2024 025 [facility], [address] [place] [address], [address], 5 13:14:54 CT + NG RNA, PCR, unspec ified specim en 2024 025 [facility], [address] [place] [address], [address], 5 13:14:54 hepati tis B core IgM Ab, qual, serum or plasma 2024 025 [facility], [address] [place] [address], [place], [address], 5 13:14:54 urinal ysis comple te, reflex cultur e 2024 025 [facility], [address] [place] [address], [address], 5 10:51:56 CBC w/ auto diff 2024 025 [facility], [address] [place] [address], [address], 5 10:51:56 CMP, serum or plasma 2024 025 [facility], [address] [place] [address], [address], 5 11:41:53 procal citoni n, serum 2024 025 [facility], [address] [place] [address], [address], 5 10:51:56 cultur e, blood 2024 025 [facility], [address] [place] [address], [address], 5 12:08:31 pro BNP (pro B-type natriu retic peptid e), serum or plasma 2024 025 [facility], [address] [place] [address], [address], 5 10:51:56 uric acid, serum or plasma 2024 025 [facility], [address] [place] [address], [address], 16:05:42 alkali ne phosph atase, serum or plasma 2024 025 [facility] (Centralized Electronic Ordering - All Locations), Patient Can Go To The Location Of Their Choice, 17:17:37 gamma- glutam yl transf erase (ggt), serum 2024 025 [facility] (Centralized Electronic Ordering - All Locations), Patient Can Go To The Location Of Their Choice, 16:05:42 CMP, serum or plasma 2024 025 [facility], [address], [address], [place], [address], 16:05:35 TSH, ultra- sensit erik, serum 2024 025 [facility] (Centralized Electronic Ordering - All Locations), Patient Can Go To The Location Of Their Choice, 16:05:41 magnes ium, serum or plasma 2024 025 [facility], [address], [address], [place], [address], 16:05:44 potass ium, serum or plasma 2024 025 [facility] (Centralized Electronic Ordering - All Locations), Patient Can Go To The Location Of Their Choice, 16:05:43 lipid panel, serum 2024 025 [email or web address], [address], [address], [place], [address], 15:30:39 albumi n/crea tinine , mass ratio, urine 2024 025 [facility] (Centralized Electronic Ordering - All Locations), Patient Can Go To The Location Of Their Choice, 16:05:37 ferrit in, serum or plasma 2024 025 [facility], [address], [address], [place], [address], 5 16:05:44 retic count, blood 2024 025 [facility], [address], [address], [place], [address], 5 16:05:45 CBC w/ auto diff 2024 025 [facility], [address], [address], [place], [address], 5 16:05:34 iron + total iron-b inding capaci ty (TIBC) , serum 2024 025 [facility], [address], [address], [place], [address], 16:05:36 transf johnathan recept or, solubl e, quant, serum 2024 025 [facility] (Centralized Electronic Ordering - All Locations), Patient Can Go To The Location Of Their Choice, 16:05:40 cobala min and folate panel, serum 2024 025 [facility] (Centralized Electronic Ordering - All Locations), Patient Can Go To The Location Of Their Choice, 16:05:38 vitami n D, 25-hyd apolinar, total, serum 2024 025 [facility] (Centralized Electronic Ordering - All Locations), Patient Can Go To The Location Of Their Choice, 16:05:39 1,25-d ihydro xyvita min D, QN, serum or plasma 2024 025 [facility] (Centralized Electronic Ordering - All Locations), Patient Can Go To The Location Of Their Choice, [address] 16:05:39 CMP, serum or plasma 2024 025 [facility] (Centralized [facility] Ordering - All Locations), Patient Can Go To The Location Of Their Choice, 08:08:28 BNP (B-typ e natriu retic peptid e), serum or plasma 2024 025 [facility] (Centralized Electronic Ordering - All Locations), Patient Can Go To The Location Of Their Choice, 08:08:30 urinal ysis comple te, reflex cultur e 2024 025 [facility] (Centralized Electronic Ordering - All Locations), Patient Can Go To The Location Of Their Choice, 08:08:29 Referral physic al therap ist referr al 2024 025 [email or web address] Not available 14:35:36 Procedures None record ed. Surgeries None record ed. Imaging CT, abdome n + pelvis , w/o contra st 2024 025 [facility] (Imaging), [address] [place] [address], [address], 15:57:36 XR, chest, 2 view 2024 025 [facility] (Imaging), [address] [place] [address], [address], 5 11:26:23 Medication Orders cefpod oxime 200 mg tablet 2024 025 [facility]/Pharmacy #233, [address] [place] [address], [address], 08:32:43 Zithro max Z-Jase 250 mg tablet 2024 025 [email or web address] [facility]/Pharmacy #[id number], [facility] [place], [address], 14:04:57 amlodi pine 10 mg tablet 2024 025 [facility]/Pharmacy #[id number], [address] [place], [address], 17:21:09 furose mide 20 mg tablet 2024 025 [id number] [phone] [place], [address], 15:27:40 Patient TargetsNo targets recorded. Patient Instructions Encounter Date Encounter Id Patient Instructions Last Modified By Organization Details Last Modified Time 08/03/2024 [id number] leg and ankle edema: care instructions [email or web address] Not available 08/03/2024 15:12:18 08/22/2024 [id number] gout: care instructions [email or web address] Not available 08/22/2024 [...] instructions [email or web address] Not available 08/22/2024 17:17:19 11/02/2024 [id number] At today's hospital follow up visit, all current and discharge medications (OTC, herbal therapies, supplements) reviewed and reconciled with patient and or caregiver, including potential side effects, drug interactions, instructions, and the consequences of not taking medication. Reviewed potential barriers to medication adherence, such as side effects from medication or cost of medication. [email or web address] Not available 11/02/2024 10:50:48 11/14/2024 [id number] learning about fever [email or web address] Not available 11/14/2024 10:32:51 At today's hospital follow up visit, all current and discharge medications (OTC, herbal therapies, supplements) reviewed and reconciled with patient and or caregiver, including potential side effects, drug interactions, instructions, and the consequences of not taking medication. Reviewed potential barriers to medication adherence, such as side effects from medication or cost of medication. [email or web address] Not available 11/14/2024 08:34:10 11/23/2024 [id number] medicines to avoid with kidney disease: care instructions [email or web address] Not available 11/23/2024 19:18:46 back pain: care instructions [email or web address] Not available 11/23/2024 14:27:03 Reason for Referral Physical Therapist Referral for Backache Referring Physician: Vivi De, Family Medicine, Encounter Date: 11/23/2024 Results Created Date Observation Date Name Description Value Unit Range Abnormal Flag Note LastModifiedBy Organization Detail LastModifiedTime 11/16/1911/18/2024 CBC w/ auto diff sodium 142 Not Available [facility] (Medical Records) [address] [place], [address], 11/15/2024 10:25:56 11/16/19 25 11/18/2024 CBC w/ auto diff potassium 4.9 Not Available [facility] (Medical Records) [address] [place], [address], 11/15/2024 10:25:56 11/16/19 25 11/18/2024 CBC w/ auto diff BUN 38 Not Available [facility] (Medical Records) [address] [place], [address], 11/15/2024 10:25:56 11/16/19 25 11/18/2024 CBC w/ auto diff creatinine 4.19 Not Available [facility] (Medical Records) [address] [place], [address], 11/15/2024 10:25:56 11/16/19 25 11/18/2024 CBC w/ auto diff glucose 144 Not Available [facility] (Medical Records) [address] [place], [address], 11/15/2024 10:25:56 11/16/19 25 11/18/2024 CBC w/ auto diff WBC 5.2 Not Available [facility] (Medical Records) [address] [place], [address], 11/15/2024 10:25:56 11/16/19 25 11/18/2024 CBC w/ auto diff RBC 3.50 Not Available [facility] (Medical Records) [address] [place], [address], 11/15/2024 10:25:56 11/16/19 25 11/18/2024 CBC w/ auto diff HGB 10.3 Not Available [facility] (Medical Records) [address] [place], [address], 11/15/2024 10:25:56 11/16/19 25 11/18/2024 CBC w/ auto diff HCT 33.1 Not Available [facility] (Medical Records) [address] [place], [address], 11/15/2024 10:25:56 11/16/1911/18/2024 CBC w/ auto diff plt 195 Not Available [facility] (Medical Records) [address] [place], [address], 11/15/2024 10:25:56 11/16/1911/18/2024 urina lysis , compl ete sodium 142 Not Available [facility] (Medical Records) [address] [place], [address], 11/15/2024 10:25:01 11/16/19 25 11/18/2024 urina lysis , compl ete potassium 4.9 Not Available [facility] (Medical Records) [address] [place], [address], 11/15/2024 10:25:01 11/16/19 25 11/18/2024 urina lysis , compl ete glucose 144 Not Available [facility] (Medical Records) [address] [place], [address], 11/15/2024 10:25:01 11/16/19 25 11/18/2024 urina lysis , compl ete BUN 38 Not Available [facility] (Medical Records) [address] [place], [address], 11/15/2024 10:25:01 11/16/19 25 11/18/2024 urina lysis , compl ete creatinine 4.19 Not Available [facility] (Medical Records) [address] [place], [address], 11/15/2024 10:25:01 11/16/19 25 11/18/2024 urina lysis , compl ete WBC 5.2 Not Available [facility] (Medical Records) [address] [place] [address], [address], 11/15/2024 10:25:01 11/16/19 25 11/18/2024 urina lysis , compl ete RBC 3.50 Not Available [facility] (Medical Records) [address] [place], [address], 11/15/2024 10:25:01 11/16/19 25 11/18/2024 urina lysis , compl ete HGB 10.3 Not Available [facility] (Medical Records) [address] [place], [address], 11/15/2024 10:25:01 11/16/19 25 11/18/2024 urina lysis , compl ete HCT 33.1 Not Available [facility] (Medical Records) [address] [place], [address], 11/15/2024 10:25:01 11/16/19 25 11/18/2024 urina lysis , compl ete plt 195 Not Available [facility] (Medical Records) [address] [facility], [address], 11/15/2024 10:25:01 11/16/19 25 11/18/2024 CBC w/ auto diff sodium 142 Not Available [facility] (Medical Records) [address] [place], [address], 11/15/2024 10:25:01 11/16/19 25 11/18/2024 CBC w/ auto diff potassium 4.9 Not Available [facility] (Medical Records) [address] [place], [address], 11/15/2024 10:25:01 11/16/19 25 11/18/2024 CBC w/ auto diff glucose 144 Not Available [facility] (Medical Records) [address] [place], [address], 11/15/2024 10:25:01 11/16/19 25 11/18/2024 CBC w/ auto diff BUN 38 Not Available [facility] (Medical Records) [address] [place], [address], 11/15/2024 10:25:01 11/16/19 25 11/18/2024 CBC w/ auto diff creatinine 4.19 Not Available [facility] (Medical Records) [address] [place], [address], 11/15/2024 10:25:01 11/16/19 25 11/18/2024 CBC w/ auto diff WBC 5.2 Not Available [facility] (Medical Records) [address] [place], [address], 11/15/2024 10:25:01 11/16/19 25 11/18/2024 CBC w/ auto diff RBC 3.50 Not Available [facility] (Medical Records) [address] [place], [address], 11/15/2024 10:25:01 11/16/19 25 11/18/2024 CBC w/ auto diff HGB 10.3 Not Available [facility] (Medical Records) [address] [place] [address], [address], 11/15/2024 10:25:01 11/16/19 25 11/18/2024 CBC w/ auto diff HCT 33.1 Not Available [facility] (Medical Records) [address] [place], [address], 11/15/2024 10:25:01 11/16/19 25 11/18/2024 CBC w/ auto diff plt 195 Not Available [facility] (Medical Records) [address] [place], [address], 11/15/2024 10:25:01 08/03/19 25 08/04/2024 COMP. METAB OLIC PANEL (14) glucose 180 mg/dL 70-99 above high normal Not Available [facility] ([facility]) [address] [place], [address], 08/04/2024 08:08:28 08/03/19 25 08/04/2024 COMP. METAB OLIC PANEL (14) BUN 40 mg/dL 8-27 above high normal Not Available [facility] ([facility]) [address] [place], [address], 08/04/2024 08:08:28 08/03/19 25 08/04/2024 COMP. METAB OLIC PANEL (14) creatinine 3.46 mg/dL 0.76-1 .27 above high normal Not Available [facility] ([facility]) [address] [place], [address], 08/04/2024 08:08:28 08/03/19 25 08/04/2024 COMP. METAB OLIC PANEL (14) eGFR 18 mL/mi n/1.7 3 >59 below low normal Not Available [facility] ([facility]) [address] [place], [address], 08/04/2024 08:08:28 08/03/19 25 08/04/2024 COMP. METAB OLIC PANEL (14) BUN/creatini ne ratio 12 10-24 normal Not Available [facility] ([facility]) [address] [facility] [place] [place], [address], 08/04/2024 08:08:28 08/03/19 25 08/04/2024 COMP. METAB OLIC PANEL (14) sodium 145 mmol/ L 134-14 4 above high normal Not Available [facility] ([facility]) [address] [facility] [place], [address], 08/04/2024 08:08:28 08/03/19 25 08/04/2024 COMP. METAB OLIC PANEL (14) potassium 5.4 mmol/ L 3.5-5. 2 above high normal Not Available [facility] ([facility]) [address] [facility] [place], [address], 08/04/2024 08:08:28 08/03/19 25 08/04/2024 COMP. METAB OLIC PANEL (14) chloride 111 mmol/ L 96-106 above high normal Not Available [facility] ([facility]) [address] [facility] [place], [address], 08/04/2024 08:08:28 08/03/19 25 08/04/2024 COMP. METAB OLIC PANEL (14) carbon dioxide, total 19 mmol/ L 20-29 below low normal Not Available [facility] ([facility]) [address] [facility] [place], [address], 08/04/2024 08:08:28 08/03/19 25 08/04/2024 COMP. METAB OLIC PANEL (14) calcium 8.1 mg/dL 8.6-10 .2 below low normal Not Available [facility] ([facility]) [address] [facility] [place], [address], 08/04/2024 08:08:28 08/03/19 25 08/04/2024 COMP. METAB OLIC PANEL (14) protein, total 6.3 g/dL 6.0-8. 5 normal Not Available [facility] ([facility]) [address] [place], [address], 08/04/2024 08:08:28 08/03/19 25 08/04/2024 COMP. METAB OLIC PANEL (14) albumin 3.3 g/dL 3.8-4. 8 below low normal Not Available [facility] ([facility]) [address] [place], [address], 08/04/2024 08:08:28 08/03/19 25 08/04/2024 COMP. METAB OLIC PANEL (14) globulin, total 3.0 g/dL 1.5-4. 5 Not Available [facility] ([facility]) [address] [place], [address], 08/04/2024 08:08:28 08/03/19 25 08/04/2024 COMP. METAB OLIC PANEL (14) bilirubin, total <0.2 mg/dL 0.0-1. 2 Not Available [facility] ([facility]) [address] [place], [address], 08/04/2024 08:08:28 08/03/1908/04/2024 COMP. METAB OLIC PANEL (14) alkaline phosphatase 182 IU/L 44-121 above high normal Not Available [facility] ([facility]) [address] [place], [address], 08/04/2024 08:08:28 08/03/19 25 08/04/2024 COMP. METAB OLIC PANEL (14) AST (SGOT) 20 IU/L 0-40 normal Not Available [facility] ([facility]) [address] [place], [address], 08/04/2024 08:08:28 08/03/19 25 08/04/2024 COMP. METAB OLIC PANEL (14) ALT (SGPT) 16 IU/L 0-44 normal Not Available [facility] ([facility]) [address] [facility] [place], [address], 08/04/2024 08:08:28 08/03/19 25 08/04/2024 UA/M W/RFL X CULTU REBARBARA NE specific gravity 1.018 1.005- 1.030 normal Not Available [facility] ([facility]) [address] [facility], [place], [address], 08/04/2024 08:08:29 08/03/1908/04/2024 UA/M W/RFL X CULTU REBARBARA NE pH 6.5 5.0-7. 5 normal Not Available [facility] ([facility]) [address] [facility], [place], [address], 08/04/2024 08:08:29 08/03/1908/04/2024 UA/M W/RFL X CULTU REBARBARA NE urine-color Yellow yellow Not Available [facility] ([facility]) [address] [facility], [place], [address], 08/04/2024 08:08:29 08/03/19 25 08/04/2024 UA/M W/RFL X CULTReji REBARBARA NE appearance Clear clear Not Available [facility] ([facility]) [address] [place], [address], 08/04/2024 08:08:29 08/03/19 25 08/04/2024 UA/M W/RFL X CULTU REBARBARA NE WBC esterase Negati ve negati ve Not Available [facility] ([facility]) [address] [facility] [place], [address], 08/04/2024 08:08:29 08/03/19 25 08/04/2024 UA/M W/RFL X CULTU RE, ROUTI NE protein 4+ negati ve/tra ce abnormal Not Available [facility] ([facility]) [address] [place], [address], 08/04/2024 08:08:29 08/03/19 25 08/04/2024 UA/M W/RFL X CULTU RE, ROUTI NE glucose 2+ negati ve abnormal Not Available [facility] ([facility]) [address] [place], [address], 08/04/2024 08:08:29 08/03/1908/04/2024 UA/M W/RFL X CULTU RE, ROUTI NE ketones Negati ve negati ve Not Available [facility] ([facility]) [address] [place], [address], 08/04/2024 08:08:29 08/03/1908/04/2024 UA/M W/RFL X CULTU RE, ROUTI NE occult blood Trace negati ve abnormal Not Available [facility] ([facility]) [address] [place], [address], 08/04/2024 08:08:29 08/03/19 25 08/04/2024 UA/M W/RFL X CULTU RE, ROUTI NE bilirubin Negati ve negati ve Not Available [facility] ([facility]) [address] [place], [address], 08/04/2024 08:08:29 08/03/19 25 08/04/2024 UA/M W/RFL X CULTU RE, ROUTI NE urobilinogen ,semi-qn 0.2 mg/dL 0.2-1. 0 normal Not Available [facility] ([facility]) [address] [place], [address], 08/04/2024 08:08:29 08/03/19 25 08/04/2024 UA/M W/RFL X CULTU RE, ROUTI NE nitrite, urine Negati ve negati ve Not Available [facility] ([facility]) [address] [facility], [place], [address], 08/04/2024 08:08:29 08/03/19 25 08/04/2024 UA/M W/RFL X CULTU RE, ROUTI NE microscopic examination See below: Micro scopi c was indic ated and was perfo rmed. Not Available [facility] ([facility]) [address] [facility], [place], [address], 08/04/2024 08:08:29 08/03/19 25 08/04/2024 UA/M W/RFL X CULTU RE, ROUTI NE WBC 0-5 /hpf 0 - 5 Not Available [facility] ([facility]) [address] [facility], [place], [address], 08/04/2024 08:08:29 08/03/19 25 08/04/2024 UA/M W/RFL X CULTU RE, ROUTI NE RBC None seen /hpf 0 - 2 Not Available [facility] ([facility]) [address] [facility], [place], [address], 08/04/2024 08:08:29 08/03/19 25 08/04/2024 UA/M W/RFL X CULTU RE, ROUTI NE epithelial cells (non renal) None seen /hpf 0 - 10 Not Available [facility] ([facility]) [address] [facility], [place], [address], 08/04/2024 08:08:29 08/03/19 25 08/04/2024 UA/M W/RFL X CULTU RE, ROUTI NE epithelial cells (renal) DIRECTOR OF DIGITAL TECHNOLOGY Not Available [facility] ([facility]) [address] [facility], [place], [address], 08/04/2024 08:08:29 08/03/19 25 08/04/2024 UA/M W/RFL X CULTU RE, ROUTI NE casts None seen /lpf none seen Not Available [facility] ([facility]) [address], [place], [address], 08/04/2024 08:08:29 08/03/19 25 08/04/2024 UA/M W/RFL X CULTU RE, ROUTI NE cast type DIRECTOR OF DIGITAL TECHNOLOGY Not Available [facility] ([facility]) [address], [place], [address], 08/04/2024 08:08:29 08/03/19 25 08/04/2024 UA/M W/RFL X CULTU RE, ROUTI NE crystals DIRECTOR OF DIGITAL TECHNOLOGY Not Available [facility] ([facility]) [address] [facility], [place], [address], 08/04/2024 08:08:29 08/03/19 25 08/04/2024 UA/M W/RFL X CULTU RE, ROUTI NE crystal type DIRECTOR OF DIGITAL TECHNOLOGY Not Available [facility] ([facility]) [address], [place], [address], 08/04/2024 08:08:29 08/03/19 25 08/04/2024 UA/M W/RFL X CULTU RE, ROUTI NE mucus threads DIRECTOR OF DIGITAL TECHNOLOGY Not Available [facility] ([facility]) [address] [facility], [place], [address], 08/04/2024 08:08:29 08/03/19 25 08/04/2024 UA/M W/RFL X CULTU RE, ROUTI NE bacteria None seen none seen/f ew Not Available [facility] ([facility]) [address] [facility], [place], [address], 08/04/2024 08:08:29 08/03/19 25 08/04/2024 UA/M W/RFL X CULTU RE, ROUTI NE yeast DIRECTOR OF DIGITAL TECHNOLOGY Not Available [facility] ([facility]) [address] [facility], [place], [address], 08/04/2024 08:08:29 08/03/19 25 08/04/2024 UA/M W/RFL X CULTU RE, ROUTI NE trichomonas DIRECTOR OF DIGITAL TECHNOLOGY Not Available [facility] ([facility]) [address] [facility], [place], [address], 08/04/2024 08:08:29 08/03/19 25 08/04/2024 UA/M W/RFL X CULTU RE, ROUTI NE comment DIRECTOR OF DIGITAL TECHNOLOGY Not Available [facility] ([facility]) [address] [facility], [place], [address], 08/04/2024 08:08:29 08/03/19 25 08/04/2024 UA/M W/RFL X CULTU RE, ROUTI NE microscopic examination DIRECTOR OF DIGITAL TECHNOLOGY Not Available [facility] ([facility]) [address] [facility], [place], [address], 08/04/2024 08:08:29 08/03/19 25 08/04/2024 UA/M W/RFL X CULTU RE, ROUTI NE urinalysis reflex Commen t This speci men will not refle x to a Urine Cultu re. Not Available [facility] ([facility]) [address] [facility], [place], [address], 08/04/2024 08:08:29 08/03/19 25 08/04/2024 B-TYP E NATRI URETI C PEPTI DE B-type natriuretic peptide 145.8 pg/mL 0.0-10 0.0 above high normal Sieme ns [facility] XP metho dolog y Not Available [facility] ([facility]) [address] [place], [address], 08/04/2024 08:08:30 09/08/19 25 09/08/2024 CBC WITH DIFFE RENTI AL/PL ATELE T WBC 7.8 x10e3 /uL 3.4-10 .8 normal Not Available [facility] ([facility]) [address] [place], [address], 09/11/2024 16:05:34 09/08/19 25 09/08/2024 CBC WITH DIFFE RENTI AL/PL ATELE T RBC 3.50 x10e6 /uL 4.14-5 .80 below low normal Not Available [facility] ([facility]) [address] [place], [address], 09/11/2024 16:05:34 09/08/19 25 09/08/2024 CBC WITH DIFFE RENTI AL/PL ATELE T hemoglobin 11.1 g/dL 13.0-1 7.7 below low normal Not Available [facility] ([facility]) [address] [place], [address], 09/11/2024 16:05:34 09/08/19 25 09/08/2024 CBC WITH DIFFE RENTI AL/PL ATELE T hematocrit 33.3 % 37.5-5 1.0 below low normal Not Available [facility] ([facility]) [address] [place], [address], 09/11/2024 16:05:34 09/08/19 25 09/08/2024 CBC WITH DIFFE RENTI AL/PL ATELE T MCV 95 fL 79-97 normal Not Available [facility] ([facility]) [address] [place], [address], 09/11/2024 16:05:34 09/08/19 25 09/08/2024 CBC WITH DIFFE RENTI AL/PL ATELE T MCH 31.7 pg 26.6-3 3.0 normal Not Available [facility] ([facility]) [address] [place], [address], 09/11/2024 16:05:34 09/08/19 25 09/08/2024 CBC WITH DIFFE RENTI AL/PL ATELE T MCHC 33.3 g/dL 31.5-3 5.7 normal Not Available [facility] ([facility]) [address] [facility], [place], [address], 09/11/2024 16:05:34 09/08/19 25 09/08/2024 CBC WITH DIFFE RENTI AL/PL ATELE T RDW 14.0 % 11.6-1 5.4 Not Available [facility] ([facility]) [address] [facility], [place], [address], 09/11/2024 16:05:34 09/08/19 25 09/08/2024 CBC WITH DIFFE RENTI AL/PL ATELE T platelets 233 x10e3 /uL 150-45 0 normal Not Available [facility] ([facility]) [address] [facility], [place], [address], 09/11/2024 16:05:34 09/08/19 25 09/08/2024 CBC WITH DIFFE RENTI AL/PL ATELE T neutrophils 68 % not estab. normal Not Available [facility] ([facility]) [address] [facility], [place], [address], 09/11/2024 16:05:34 09/08/19 25 09/08/2024 CBC WITH DIFFE RENTI AL/PL ATELE T lymphs 18 % not estab. normal Not Available [facility] ([facility]) [address] [facility], [place], [address], 09/11/2024 16:05:34 09/08/19 25 09/08/2024 CBC WITH DIFFE RENTI AL/PL ATELE T monocytes 9 % not estab. normal Not Available [facility] ([facility]) [address] [facility], [place], [address], 09/11/2024 16:05:34 09/08/19 25 09/08/2024 CBC WITH DIFFE RENTI AL/PL ATELE T eos 4 % not estab. normal Not Available [facility] ([facility]) [address] [facility], [place], [address], 09/11/2024 16:05:34 09/08/19 25 09/08/2024 CBC WITH DIFFE RENTI AL/PL ATELE T basos 0 % not estab. normal Not Available [facility] ([facility]) [address] [facility], [place], [address], 09/11/2024 16:05:34 09/08/19 25 09/08/2024 CBC WITH DIFFE RENTI AL/PL ATELE T immature cells DIRECTOR OF DIGITAL TECHNOLOGY Not Available [facility] ([facility]) [address] [place], [address], 09/11/2024 16:05:34 09/08/19 25 09/08/2024 CBC WITH DIFFE RENTI AL/PL ATELE T neutrophils (absolute) 5.3 x10e3 /uL 1.4-7. 0 normal Not Available [facility] ([facility]) [address] [place], [address], 09/11/2024 16:05:34 09/08/19 25 09/08/2024 CBC WITH DIFFE RENTI AL/PL ATELE T lymphs (absolute) 1.4 x10e3 /uL 0.7-3. 1 normal Not Available [facility] ([facility]) [address] [place], [address], 09/11/2024 16:05:34 09/08/19 25 09/08/2024 CBC WITH DIFFE RENTI AL/PL ATELE T monocytes(ab solute) 0.7 x10e3 /uL 0.1-0. 9 normal Not Available [facility] ([facility]) [address] [place], [address], 09/11/2024 16:05:34 09/08/19 25 09/08/2024 CBC WITH DIFFE RENTI AL/PL ATELE T eos (absolute) 0.3 x10e3 /uL 0.0-0. 4 normal Not Available [facility] ([facility]) [address] [place], [address], 09/11/2024 16:05:34 09/08/19 25 09/08/2024 CBC WITH DIFFE RENTI AL/PL ATELE T baso (absolute) 0.0 x10e3 /uL 0.0-0. 2 normal Not Available [facility] ([facility]) [address], [place], [address], 09/11/2024 16:05:34 09/08/19 25 09/08/2024 CBC WITH DIFFE RENTI AL/PL ATELE T immature granulocytes 1 % not estab. Not Available [facility] ([facility]) [address] [facility], [place], [address], 09/11/2024 16:05:34 09/08/19 25 09/08/2024 CBC WITH DIFFE RENTI AL/PL ATELE T immature grans (abs) 0.1 x10e3 /uL 0.0-0. 1 Not Available [facility] ([facility]) [address] [facility], [place], [address], 09/11/2024 16:05:34 09/08/19 25 09/08/2024 CBC WITH DIFFE RENTI AL/PL ATELE T NRBC DIRECTOR OF DIGITAL TECHNOLOGY Not Available [facility] ([facility]) [address] [facility], [place], [address], 09/11/2024 16:05:34 09/08/19 25 09/08/2024 CBC WITH DIFFE RENTI AL/PL ATELE T hematology comments: DIRECTOR OF DIGITAL TECHNOLOGY Not Available [facility] ([facility]) [address] [facility], [place], [address], 09/11/2024 16:05:34 09/08/19 25 09/08/2024 COMP. METAB OLIC PANEL (14) glucose 197 mg/dL 70-99 above high normal Not Available [facility] ([facility]) [address] [facility], [place], [address], 09/11/2024 16:05:35 09/08/19 25 09/08/2024 COMP. METAB OLIC PANEL (14) BUN 50 mg/dL 8-27 above high normal Not Available [facility] ([facility]) [address] [facility] [place], [address], 09/11/2024 16:05:35 09/08/19 25 09/08/2024 COMP. METAB OLIC PANEL (14) creatinine 3.72 mg/dL 0.76-1 .27 above high normal Not Available [facility] ([facility]) [address] [facility] [place], [address], 09/11/2024 16:05:35 09/08/19 25 09/08/2024 COMP. METAB OLIC PANEL (14) eGFR 17 mL/mi n/1.7 3 >59 below low normal Not Available [facility] ([facility]) [address] [place], [address], 09/11/2024 16:05:35 09/08/19 25 09/08/2024 COMP. METAB OLIC PANEL (14) BUN/creatini ne ratio 13 10-24 normal Not Available [facility] ([facility]) [address] [place], [address], 09/11/2024 16:05:35 09/08/19 25 09/08/2024 COMP. METAB OLIC PANEL (14) sodium 140 mmol/ L 134-14 4 normal Not Available [facility] ([facility]) [address] [place], [address], 09/11/2024 16:05:35 09/08/19 25 09/08/2024 COMP. METAB OLIC PANEL (14) potassium 5.6 mmol/ L 3.5-5. 2 above high normal Not Available [facility] ([facility]) [address] [place], [address], 09/11/2024 16:05:35 09/08/19 25 09/08/2024 COMP. METAB OLIC PANEL (14) chloride 109 mmol/ L 96-106 above high normal Not Available [facility] ([facility]) [address] [place], [address], 09/11/2024 16:05:35 09/08/19 25 09/08/2024 COMP. METAB OLIC PANEL (14) carbon dioxide, total 16 mmol/ L 20-29 below low normal Not Available [facility] ([facility]) [address] [place], [address], 09/11/2024 16:05:35 09/08/19 25 09/08/2024 COMP. METAB OLIC PANEL (14) calcium 8.6 mg/dL 8.6-10 .2 normal Not Available [facility] ([facility]) [address] [place], [address], 09/11/2024 16:05:35 09/08/19 25 09/08/2024 COMP. METAB OLIC PANEL (14) protein, total 6.9 g/dL 6.0-8. 5 normal Not Available [facility] ([facility]) [address] [place], [address], 09/11/2024 16:05:35 09/08/19 25 09/08/2024 COMP. METAB OLIC PANEL (14) albumin 3.8 g/dL 3.8-4. 8 normal Not Available [facility] ([facility]) [address] [place], [address], 09/11/2024 16:05:35 09/08/19 25 09/08/2024 COMP. METAB OLIC PANEL (14) globulin, total 3.1 g/dL 1.5-4. 5 Not Available [facility] ([facility]) [address] [place], [address], 09/11/2024 16:05:35 09/08/19 25 09/08/2024 COMP. METAB OLIC PANEL (14) bilirubin, total 0.3 mg/dL 0.0-1. 2 normal Not Available [facility] ([facility]) [address] [facility] [place], [address], 09/11/2024 16:05:35 09/08/19 25 09/08/2024 COMP. METAB OLIC PANEL (14) alkaline phosphatase 225 IU/L 44-121 above high normal Not Available [facility] ([facility]) [address] [facility] [place], [address], 09/11/2024 16:05:35 09/08/19 25 09/08/2024 COMP. METAB OLIC PANEL (14) AST (SGOT) 17 IU/L 0-40 normal Not Available [facility] ([facility]) [address] [facility] [place], [address], 09/11/2024 16:05:35 09/08/19 25 09/08/2024 COMP. METAB OLIC PANEL (14) ALT (SGPT) 18 IU/L 0-44 normal Not Available [facility] ([facility]) [address] [place], [address], 09/11/2024 16:05:35 09/08/19 25 09/09/2024 COMP. METAB OLIC PANEL (14) hemoglobin A1C 7.5 % 4.8-5. 6 above high normal Predi abete s: 5.7 - 6.4 Diabe rocky: >6.4 Glyce mary contr ol for adult s with diabe rocky: <7.0 Not Available [facility] ([facility]) [address] [place], [address], 09/11/2024 16:05:35 09/08/19 25 09/08/2024 LIPID PANEL cholesterol, total 187 mg/dL 100-19 9 normal Not Available [facility] ([facility]) [address] [place], [address], 09/11/2024 16:05:35 09/08/19 25 09/08/2024 LIPID PANEL triglyceride s 121 mg/dL 0-149 normal Not Available [facility] ([facility]) [address] [place], [address], 09/11/2024 16:05:35 09/08/19 25 09/08/2024 LIPID PANEL HDL cholesterol 37 mg/dL >39 below low normal Not Available [facility] ([facility]) [address] [place], [address], 09/11/2024 16:05:35 09/08/19 25 09/08/2024 LIPID PANEL VLDL cholesterol leisa 22 mg/dL 5-40 Not Available [facility] ([facility]) [address] [place], [address], 09/11/2024 16:05:35 09/08/19 25 09/08/2024 LIPID PANEL LDL chol calc ([facility]) 128 mg/dL 0-99 above high normal Not Available [facility] ([facility]) [address] [place], [address], 09/11/2024 16:05:35 09/08/19 25 09/08/2024 LIPID PANEL LDL calc comment: DIRECTOR OF DIGITAL TECHNOLOGY Not Available [facility] ([facility]) [address] [place], [address], 09/11/2024 16:05:35 09/08/19 25 09/09/2024 IRON AND TIBC iron bind.cap.(TI BC) 296 ug/dL 250-45 0 normal Not Available [facility] ([facility]) [address] [place], [address], 09/11/2024 16:05:36 09/08/19 25 09/09/2024 IRON AND TIBC UIBC 196 ug/dL 111-34 3 normal Not Available [facility] ([facility]) [address] [place], [address], 09/11/2024 16:05:36 09/08/19 25 09/09/2024 IRON AND TIBC iron 100 ug/dL 38-169 normal Not Available [facility] ([facility]) [address] [place], [address], 09/11/2024 16:05:36 09/08/19 25 09/09/2024 IRON AND TIBC iron saturation 34 % 15-55 normal Not Available [facility] ([facility]) [address] [place], [address], 09/11/2024 16:05:36 09/08/19 25 09/09/2024 ALBUM IN/CR EATIN INE RATIO ,URIN E creatinine, urine 147.8 mg/dL not estab. normal Not Available [facility] ([facility]) [address] [place], [address], 09/11/2024 16:05:37 09/08/19 25 09/09/2024 ALBUM IN/CR EATIN INE RATIO ,URIN E albumin, urine 6042.6 ug/mL not estab. Resul ts confi rmed on dilut ion. Not Available [facility] ([facility]) [address] [place], [address], 09/11/2024 16:05:37 09/08/19 25 09/09/2024 ALBUM IN/CR EATIN INE RATIO ,URIN E alb/creat ratio 4088 mg/g_ creat 0-29 above high normal Madison l: 0 - 29 Moder ately incre ased: 30 - 300 Sever richard incre ased: >300 Not Available [facility] ([facility]) [address] [place], [address], 09/11/2024 16:05:37 09/08/19 25 09/09/2024 VITAM IN B12 AND FOLAT E vitamin B12 821 pg/mL 232-12 45 normal Not Available [facility] ([facility]) [address] [place], [address], 09/11/2024 16:05:38 09/08/19 25 09/09/2024 VITAM IN B12 AND FOLAT E folate (folic acid), serum 4.2 NG/mL >3.0 normal A serum folat e asuncion ntrat ion of less than 3.1 ng/mL is consi dered to repre sent clini leisa defic iency . Not Available [facility] ([facility]) [address] [facility], [place], [address], 09/11/2024 16:05:38 09/08/19 25 09/10/2024 CALCI TRIOL (1,25 DI-OH VIT D) calcitriol(1 ,25 di-oh vit D) 31.1 pg/mL 24.8-8 1.5 Not Available [facility] ([facility]) [address] [facility], [place], [address], 09/11/2024 16:05:39 09/08/19 25 09/09/2024 VITAM IN D, 25-HY DROXY vitamin D, 25-hydroxy 32.3 NG/mL 30.0-1 00.0 Vitam in D defic iency has been defin ed by the Insti tute of Medic ine and an Endoc [facility] Socie ty pract ice guide line as [...] um and D. Millie caputo [place]: [facility] . 2. Ashly huang MF, Chela grey [place], Todd off-F gunner i BAILEY, et al. Evalu ation , treat ment, and preve ntion of vitam in D defic iency : an Endoc rine Socie ty clini leisa pract ice guide line. JCEM. 2011 Tonio; 96(7) :1911 -. Not Available [facility] ([facility]) [address] [place], [address], 09/11/2024 16:05:39 09/08/19 25 09/11/2024 SOLUB LE TRANS SHIRA N LEAD PERFORMANCE SUPPORT ANALYST TOR soluble transferrin receptor 25.1 nmol/ L 12.2-2 7.3 Not Available [facility] ([facility]) [address] [facility], [place], [address], 09/11/2024 16:05:40 09/08/19 25 09/08/2024 TSH RFX ON ABNOR MAL TO FREE T4 TSH 2.360 uIU/m L 0.450- 4.500 normal Not Available [facility] ([facility]) [address] [facility], [place], [address], 09/11/2024 16:05:41 09/08/19 25 09/09/2024 GGT WITH REFLE X AMYLA SE/LI PASE GGT 104 IU/L 0-65 above high normal Not Available [facility] ([facility]) [address] [place], [address], 09/11/2024 16:05:41 09/08/19 25 09/09/2024 GGT WITH REFLE X AMYLA SE/LI PASE amylase 79 U/L 31-110 normal Not Available [facility] ([facility]) [address] [place], [address], 09/11/2024 16:05:41 09/08/19 25 09/09/2024 GGT WITH REFLE X AMYLA SE/LI PASE lipase 41 U/L 13-78 normal Not Available [facility] ([facility]) [address] [place], [address], 09/11/2024 16:05:41 09/08/19 25 09/09/2024 URIC ACID uric acid 5.0 mg/dL 3.8-8. 4 normal Thera kimi c targe t for gout patie nts: <6.0 Not Available [facility] ([facility]) [address] [place], [address], 09/11/2024 16:05:42 09/08/19 25 09/09/2024 POTAS SIUM, HEPAR IN PLASM A potassium, heparin plasma 5.4 mmol/ L 3.5-5. 2 above high normal Not Available [facility] ([facility]) [address] [place], [address], 09/11/2024 16:05:43 09/08/19 25 09/09/2024 MAGNE SIUM magnesium 1.5 mg/dL 1.6-2. 3 below low normal Not Available [facility] ([facility]) [address] [place], [address], 09/11/2024 16:05:44 09/08/19 25 09/08/2024 SHIRA TIN ferritin 155 NG/mL 30-400 normal Not Available [facility] ([facility]) [address] [place], [address], 09/11/2024 16:05:44 09/08/19 25 09/08/2024 RETIC ULOCY TE COUNT reticulocyte count 1.8 % 0.6-2. 6 Not Available [facility] ([facility]) [address] [place], [address], 09/11/2024 16:05:45 09/08/19 25 09/09/2024 PSA TOTAL (REFL EX TO FREE) reflex criteria COMMEN T The perce nt free PSA is perfo rmed on a refle x basis only when the total PSA is betwe en 4.0 and 10.0 ng/mL . Not Available [facility] ([facility]) [address] [place], [address], 09/14/2024 06:08:11 09/08/19 25 09/14/2024 PSA TOTAL [...] dexter baum se. Not Available [facility] ([facility]) [address] [facility], [place], [address], 09/14/2024 06:08:11 09/08/19 25 09/10/2024 MITOC HONDR IAL (M2) ANTIB GISELL mitochondria l (M2) antibody <20.0 units 0.0-20 .0 Negat erik 0.0 - 20.0 Equiv ocal 20.1 - 24.9 Posit erik >24.9 Mitoc hondr ial (M2) Antib odies are found in 90-96 % of patie nts with prima ry bilia ry cirrh osis. Not Available [facility] ([facility]) [address] [facility], [place], [address], 09/14/2024 06:08:11 09/08/1909/12/2024 KING EN AUTHO MARIANNE FRANCIS written authorizatio n COMMEN T King en Autho marianne Evansi max. Autho marianne nicholson max from [facility] for Link Reque st on 09-12 Logge d by Kwaku Logan Not Available [facility] ([facility]) [address] [place], [address], 09/21/2024 14:06:26 09/08/19 25 09/09/2024 WRITT EN AUTHO RIZAT ION written authorizatio n COMMEN T King en Autho rizat ion Recei max. Autho rizat ion recei max from [facility] for Link Reque st on 09-09 Logge d by Kwaku Logan Not Available [facility] ([facility]) [address] [place], [address], 09/14/2024 06:08:12 09/08/19 25 09/19/2024 ALK PHOS ISOEN ZYME alkaline phosphatase COMMEN T IU/L Test not perfo rmed. Deter iorat ion occur red durin g speci men handl ing. Not Available [facility] ([facility]) [address] [place], [address], 09/21/2024 14:06:25 09/08/19 25 09/21/2024 ALK PHOS ISOEN ZYME liver fraction: COMMEN T % Test not perfo rmed. ALKPH prote in requi red to compl ete testi ng. Not Available [facility] ([facility]) [address] [place], [address], 09/21/2024 14:06:25 09/08/19 25 09/21/2024 ALK PHOS ISOEN ZYME bone fraction: COMMEN T % Test not perfo rmed. ALKPH prote in requi red to compl ete testi ng. Not Available [facility] ([facility]) [address] [place], [address], 09/21/2024 14:06:25 09/08/19 25 09/21/2024 ALK PHOS ISOEN ZYME intestinal frac.: COMMEN T % Test not perfo rmed. ALKPH prote in requi red to compl ete testi ng. Not Available [facility] ([facility]) [address] [place], [address], 09/21/2024 14:06:25 09/08/19 25 09/19/[address] PROBL EM request problem COMMEN T Test not perfo rmed. Deter iorat ion occur red durin g speci men handl ing. TEST: [id number] Alkal ine Phosp hatas e Panel : [id number] Not Available [facility] ([facility]) [address] [facility], [place], [address], 09/21/2024 14:06:27 09/08/19 25 09/21/[address] PROBL EM request problem COMMEN T Test not perfo rmed. TEST: [id number] Liver Fract ion: Panel : [id number] 0 Bone Fract ion: Panel : [id number] 2 [id number] 1 Intes tinal Frac. : Panel : [id number] 2 ALKPH prote in requi red to compl ete testi ng. Not Available [facility] ([facility]) [address] [facility], [place], [address], 09/21/2024 14:06:27 11/13/19 25 11/12/2024 CMP, serum or plasm a sodium 142 Not Available [facility] (Medical Records) [address] [place] [address], [address], 11/14/2024 11:19:04 11/13/19 25 11/12/2024 CMP, serum or plasm a potassium 4.9 Not Available [facility] (Medical Records) [address] [place] [address], [address], 11/14/2024 11:19:04 11/13/19 25 11/12/2024 CMP, serum or plasm a BUN 38 Not Available [facility] (Medical Records) [address] [place] [address], [address], 11/14/2024 11:19:04 11/13/19 25 11/12/2024 CMP, serum or plasm a creatinine 4.19 Not Available [facility] (Medical Records) [address] [place] [address], [address], 11/14/2024 11:19:04 11/13/19 25 11/12/2024 CMP, serum or plasm a glucose 144 Not Available [facility] (Medical Records) [address] [place], [address], 11/14/2024 11:19:04 11/13/19 25 11/12/2024 CMP, serum or plasm a WBC 5.2 Not Available [facility] (Medical Records) [address] [place], [address], 11/14/2024 11:19:04 11/13/19 25 11/12/2024 CMP, serum or plasm a RBC 3.50 Not Available [facility] (Medical Records) [address] [place], [address], 11/14/2024 11:19:04 11/13/19 25 11/12/2024 CMP, serum or plasm a HGB 10.3 Not Available [facility] (Medical Records) [address] [place], [address], 11/14/2024 11:19:04 11/13/19 25 11/12/2024 CMP, serum or plasm a HCT 33.1 Not Available [facility] (Medical Records) [address] [place], [address], 11/14/2024 11:19:04 11/13/19 25 11/12/2024 CMP, serum or plasm a plt 195 Not Available [facility] (Medical Records) [address] [place], [address], 11/14/2024 11:19:04 11/13/19 25 11/12/2024 CMP, serum or plasm a sodium 142 Not Available [facility] (Medical Records) [address] [place], [address], 11/14/2024 11:17:12 11/13/19 25 11/12/2024 CMP, serum or plasm a potassium 4.9 Not Available [facility] (Medical Records) [address] [place], [address], 11/14/2024 11:17:12 11/13/19 25 11/12/2024 CMP, serum or plasm a glucose 144 Not Available [facility] (Medical Records) [address] [place], [address], 11/14/2024 11:17:12 11/13/19 25 11/12/2024 CMP, serum or plasm a BUN 38 Not Available [facility] (Medical Records) [address] [place], [address], 11/14/2024 11:17:12 11/13/19 25 11/12/2024 CMP, serum or plasm a creatinine 4.19 Not Available [facility] (Medical Records) [address] [place], [address], 11/14/2024 11:17:12 11/13/19 25 11/12/2024 CMP, serum or plasm a WBC 5.2 Not Available [facility] (Medical Records) [address] [place], [address], 11/14/2024 11:17:12 11/13/19 25 11/12/2024 CMP, serum or plasm a RBC 3.50 Not Available [facility] (Medical Records) [address] [place], [address], 11/14/2024 11:17:12 11/13/19 25 11/12/2024 CMP, serum or plasm a HGB 10.3 Not Available [facility] (Medical Records) [address] [place], [address], 11/14/2024 11:17:12 11/13/19 25 11/12/2024 CMP, serum or plasm a HCT 33.1 Not Available [facility] (Medical Records) [address] [place], [address], 11/14/2024 11:17:12 11/13/19 25 11/12/2024 CMP, serum or plasm a plt 195 Not Available [facility] (Medical Records) [address] [place], [address], 11/14/2024 11:17:12 08/18/19 25 08/18/2024 [place], echoc ardio gram No observ ation record ed. [address] (Medical Records) [address] [place], [address], 08/23/2024 15:35:40 10/27/19 25 10/26/2024 XR, chest , 2 view No observ ation record ed. pmadden [facility] (Medical Records) [address] [place], [address], 11/02/2024 10:41:05 11/18/19 25 11/17/2024 XR, chest No observ ation record ed. [email or web address] [facility] (Imaging) [address] [place], [address], 11/17/2024 19:30:42 11/18/19 25 11/17/2024 CT, abdom en + pelvi s, w/o contr ast No observ ation record ed. [address] (Medical Records) [address] [place], [address], 11/18/2024 11:18:14 Result Notes None recorded. Problems Name Problem SNOMED Code Status Onset Date Resolution Date Notes Provider Name and Address Organization Details Recorded Time Counseli ng Completed 201102/07/2014 RECORDED 07/23/20 12 1:53PM BY CASIE AUSTIN MA, ANNOTATI ON/HEVER Quinteros PA-C [address], [place], [address] , [facility] 6 14:37:53 Type 2 diabetes mellitus without complica tion 675381974 Completed 201202/07/2014 RECORDED 04/14/20 13 3:34PM BY CASIE AUSTIN MA, ANNOTATI ON/ADDEN DUM Leigh Annmitesh Quinteros PA-C [address], [place], [address] , [facility] 6 14:37:53 Malaise and fatigue 831025562 Completed 201102/07/2014 RECORDED 04/28/20 12 9:25AM BY LIBBY STEPHEN MA, ANNOTATI ON/ADDEN DUM Leigh Ann BEEBEC [address], [place], [address] , [facility] 6 14:37:53 Influenz a vaccine needed 23550641214 06 Completed 201202/07/2014 RECORDED 04/14/20 13 3:41PM BY CASIE AUSTIN MA, OFFICE VISIT Leigh Ann Quinteros PA-C [address] [facility] [address], [place], [address] , [facility] 6 14:37:53 Gout 13418773 Active 2013 LUIS Ferrari, [facility] 4 15:12:02 Hyperlip idemia 45325683 Active 2013 LUIS Ferrari, [facility] 4 15:12:02 Chronic kidney disease stage 1 099021273 Completed 201312/15/2016 STORY: ELEVATED MICROALB UMIN; RECORDED 01/19/20 14 2:14PM BY CASIE AUSTIN MA, OFFICE VISIT Leigh Ann Quinteros PA-C [address] [facility] [address], [place], [address] , [facility] 7 14:56:27 Displace ment of lumbar interver tebral disc without myelopat hy 55110470 Active 2013 SEES PSSP LUIS Ferrari, [facility] 4 15:12:01 Proteinu nazia 46106355 Active 2013 LUIS Ferrari, [facility] 4 15:12:02 Obesity 736750335 Active 2013 LUIS Ferrari, [facility] 4 15:12:02 Infectiv e otitis externa 32149349 Completed 201102/07/2014 RECORDED 07/23/20 12 1:53PM BY CASIE AUSTIN MA, JOSAFATATI ON/ADDTOYIN Quinteros PA-C [address] [facility] [address], [place], [address] , [facility] 6 14:37:53 Active or passive immuniza tion Completed 201102/07/2014 RECORDED 07/23/20 12 2:00PM BY CASIE AUSTIN MA, OFFICE VISIT Leigh Ann Quinteros PA-C [address] [facility] [address], [place], [address] , [facility] 6 14:37:53 Administ ration of diphther ia and tetanus vaccine Completed 201202/07/2014 RECORDED 11/23/19 13 2:44PM BY CASIE AUSTIN MA, ANNOTATI ON/ADDEN RAYSHAWN Quinteros PA-C [address] [facility] [address], [place], [address] , [facility] 6 14:37:53 Urolith Active 2013 HAS SEEN UROLOGY LUIS Ferrari, [facility] 4 15:12:02 Scrotal varices Active 2013 LUIS Ferrari, [facility] 4 15:12:02 Adult health examinat ion Completed 201303/06/2014 RECORDED 01/19/20 14 2:13PM BY CASIE AUSTIN MA, ANNOTATI ON/ADDEN DUM Leigh Ann Quinteros PA-C [address], [place], [address] , [facility] 6 14:37:53 Counseli ng Completed 201103/06/2014 RECORDED 07/23/20 12 1:53PM BY CASIE AUSTIN MA, ANNOTATI ON/ADDEN DUM Leigh Ann Quinteros PA-C [address], [place], [address] , [facility] 6 14:37:53 Type 2 diabetes mellitus without complica tion 942724915 Completed 201203/06/2014 RECORDED 04/14/20 13 3:34PM BY CASIE AUSTIN MA, ANNOTATI ON/ADDEN DUM Leigh Ann Aldair HENLEY-C [address], [place], [address] , [facility] 6 14:37:53 Malaise and fatigue 584368199 Completed 201103/06/2014 RECORDED 04/28/20 12 9:25AM BY LIBBY STEPHEN MA, ANNOTATI ON/ADDEN DUM Leigh Ann Quinteros PA-C [address] [facility] [address], [place], [address] , [facility] 6 14:37:53 Influenz a vaccine needed 31461507572 06 Completed 201203/06/2014 RECORDED 04/14/20 13 3:41PM BY CASIE AUSTIN MA, OFFICE VISIT Leigh Ann HENLEY-C [address] [facility] [address], [place], [address] , [facility] 6 14:37:53 Insomnia 715145111 Active 2013 Elena Tom Montone, [place] null, [facility] 4 15:12:01 Infectiv e otitis externa 49872185 Completed 201103/06/2014 RECORDED 07/23/20 12 1:53PM BY CASIE AUSTIN MA, ANNOTATI ON/ADDEN DUM Leigh Ann HENLEY-C [address] [facility] [address], [place], [address] , [facility] 6 14:37:53 Active or passive immuniza tion Completed 201103/06/2014 RECORDED 07/23/20 12 2:00PM BY CASIE AUSTIN MA, OFFICE VISIT Leigh Ann Quinteros PA-C [address] [facility] [address], [place], [address] , [facility] 6 14:37:53 Administ ration of diphther ia and tetanus vaccine Completed 201203/06/2014 RECORDED 11/23/19 13 2:44PM BY CASIE AUSTIN MA, ANNOTATI ON/ADDEN DUM Leigh Ann Quinteros PA-C [address] 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 [address], [place], [address] , [facility] 5 22:35:18 Uncontro lled type 2 diabetes mellitus 197655595 Completed 201301/05/2017 RECORDED 01/21/20 14 11:18AM BY VIANCA SENA, HISTORIC AL SUMMARY Leigh Ann Quinteros PA-C [address] [facility] [address], [place], [address] , [facility] 7 12:05:05 Renal disorder due to type 2 diabetes mellitus 439458631 Active 2020 Not Available [facility] 4 18:06:38 Otitis externa 1127691 Completed 01/15/2017 LUIS Ward, [facility] 7 14:00:31 Body mass index 30+ - obesity 129748606 Completed 05/13/2017 Leigh Ann Quinteros PA-C [address], [place], [address] , [facility] 7 17:10:10 Type 2 diabetes mellitus 60055765 Completed 01/05/2017 Leigh Ann Quinteros PA-C [address], [place], [address] , [facility] 7 12:04:58 Tachycar jimi 0475926 Completed 08/17/2023 Vivi De MD [address], [place], [address] , [facility] 4 16:02:45 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 54315623 Active LUIS Ferrari, [facility] 4 15:12:02 Primary erectile dysfunct ion 076341987 Active LUIS Ferrari, [facility] 4 15:12:02 Hyperkal emia 30629353 Completed 202008/23/2023 Vivi De MD [address], [place], [address] , [facility] 4 13:51:59 Chronic kidney disease stage 3 760936279 Completed 11/24/2023 Vivi De MD [address], [place], [address] , [facility] 4 19:07:37 Noncompl iance with therapeu tic regimen 331780190 Active 2017 LUIS Ferrari, [facility] 4 15:12:01 Diabetic on insulin 479001636 Active 2017 LUIS Ferrari, [facility] 4 15:12:01 Poor short-te rm memory 079023709 Active 2019 LUIS Ferrari, [facility] 4 15:12:02 Hyperten sive renal disease 93309964 Active 2019 DX: I12.9 Not Available [facility] 4 18:06:38 Iliopsoa s bursitis of right hip 07663296419 05264 Completed 202008/17/2023 Vivi De MD [address] [address], [place], [address] , [facility] 4 15:47:00 Hypomagn esemia 228030629 Active 2020 Not Available [facility] 4 18:06:37 Acute kidney injury 48275578 Completed 202008/15/2023 Vivi De MD [address] [address], [place], [address] , [facility] 4 15:46:57 Hyperten kiko monitori ng status 660917349 Active 2023 dis-enro sukumar Mojicaia Gideon null, [facility] 4 09:51:37 Chronic kidney disease stage 4 815537409 Active 2023 Vivi De MD [address] [address], [place], [address] , [facility] 4 19:07:44 Hyperpar athyroid ism due to renal insuffic iency 54882822 Active 2023 Vivi De MD [address] [address], [place], [address] , [facility] 4 07:19:59 Heart failure 93373465 Active 2024 Lorenzo Quinteros PA-C [address], [place], [address] , [facility] 5 09:19:32 History of hepatiti s B 041827077 Active 2024 Vivi De MD [address], [place], [address] , [facility] 5 19:16:02 Hepatiti s B immune 726146138 Completed 202411/24/2024 Vivi De MD [address], [place], [address] , [facility] 5 15:38:43 Problem Notes None recorded. Procedures Surgical History Date Name Laterality Status Provider Name and Address Organization Details Recorded Time 08/22/19 25 Advanced Care Planning completed Vivi De MD [address] [facility] [address] [facility], [place], [address], [facility] 08/20/2024 22:29:02 08/17/19 24 Advanced Care Planning completed Vivi De MD [address] [facility] [address] [facility], [place], [address], [facility] 08/15/2023 15:44:21 05/04/20 23 removal of catheter completed Yesi Farris [facility] 05/06/2023 13:15:36 04/10/20 23 Diabetic Foot Exam (Monofilament) completed Vivi De MD [address] [address], [place], [address], [facility] 04/10/2023 13:37:37 03/26/20 23 retrograde pyelogram completed Yesi Farris [facility] 03/27/2023 09:26:09 03/26/20 23 ureteric lithotripsy completed Yesi Farris [facility] 03/27/2023 09:26:39 03/26/20 23 insertion of stent into ureter completed Yesi Farris [facility] 03/27/2023 09:26:57 07/15/20 22 Advanced Care Planning completed Felicita Cai [facility] 07/17/2022 13:15:29 03/17/20 22 Diabetic Foot Exam (Monofilament) completed Vivi De MD [address], [address], [facility] 03/17/2022 15:17:06 06/18/20 21 Advanced Care Planning completed Vivi De MD [address], [address], [facility] 06/18/2021 08:50:42 06/18/20 21 Diabetic Foot Exam (Monofilament) completed Vivi De MD [address], [address], [facility] 06/18/2021 18:56:54 06/04/20 20 Six-Item Cognitive Test completed Casie badillo [place] [facility] 06/04/2020 15:16:46 09/15/19 20 Colonoscopy completed Casie badillo MA [facility] 06/04/2020 15:14:36 04/15/20 19 Mini-Cog Test completed Casie badillo MA [facility] 04/15/2019 15:42:06 09/20/19 19 Diabetic Foot Exam (Monofilament) completed Celia Ortiz MA [facility] 09/20/2018 14:36:35 04/16/20 18 Diabetic Foot Exam (Monofilament) completed Clemencia Lindsey MA [facility] 04/16/2018 14:44:34 03/05/20 18 Diabetic Foot Exam (Monofilament) completed Clemencia Lindsey MA [facility] 03/05/2018 12:51:44 01/27/20 18 Diabetic Foot Exam (Monofilament) completed Clemencia Lindsey MA [facility] 01/26/2018 09:37:53 12/09/19 18 Diabetic Foot Exam (Monofilament) completed Dottie Moe MA [facility] 12/08/2017 15:02:35 07/27/18 58 tonsillectomy completed Hadley Main MA [facility] 07/15/2022 14:41:22 Imaging Results Imaging Date Name Status LastModified by Organization Details LastModified Time 08/18/2024 US, echocardiogram completed [address] (Medical Records) [address] [place], [address], 08/23/2024 15:35:40 10/26/2024 XR, chest, 2 view completed [facility] (Medical Records) [address] [place], [address], 11/02/2024 10:41:05 11/17/2024 XR, chest completed [facility] (Imaging) [address] [place], [address], 11/17/2024 19:30:42 11/17/2024 CT, abdomen + pelvis, w/o contrast completed [address] (Medical Records) [address] [place], [address], 11/18/2024 11:18:14 Procedure Notes None recorded. Medical Equipment None Reported. Allergies Allergen ID Allergen Name Allergen Category Reaction Reaction Severity Criticality Documentation Date Start Date Code Code System Note Provider Name and Address Organization Details Recorded Time 76847 Victoza medicatio n abdominal pain Not available Not available 04/16/2018 36587 3 RxNorm Leigh Ann Aldair PELAEZ [address], [facility] [place], [address], [place] [facility] 8 15:07:08 91372 liragluti de medicatio n other Not available Not available 05/20/20211 89735 8 RxNorm Leisaclaudy Charles null, [facility] 1 10:45:47 31701 Product containin g angiotens in-conver ting enzyme inhibitor (product) medicatio n Not available Not available low 11/24/2023 64271 009 SNOMED See renal note Vivi De MD [address] [facility] [address], [place], [address], [facility] 4 19:07:27 Medications Name Sig Start Date [...] TABLET BY MOUTH TWICE A DAY active Not [...] 1 TABLET DAILY FOR 4 DAYS DIRECTED 11/23 completed Not Available Not Available Not [...] temazepam 15 mg capsule TAKE 1 CAPSULE EVERY DAY BY ORAL ROUTE AT BEDTIME FOR 30 DAYS, FOR INSOMNIA . active Not Available Not Available No t [...] sodium bicarbona te 650 mg tablet TAKE 1 TABLET ORALLY 2 TIMES A DAY FOR FOR INDIGEST ION active Not Available Not Available No t Available baclofen 10 mg tablet TAKE 1-2 BY MOUTH 3 TIMES A DAY NEEDED SPASM 08/22 completed Not Available Not Available Not Available amlodipin e 10 mg tablet TAKE 1 TABLET BY MOUTH EVERY DAY active Not Available Not Available No t Available cephalexi n 500 mg capsule TAKE 1 [...] 2015 active Not Available Not Available Not Avreji labcollette blood pressure test kit-large cuff active Not Available Not Available Not Available sevelamer carbonate 0.8 gram oral powder packet TAKE 1 PACKET (800 MG TOTAL) BY MOUTH 3 (THREE) TIMES A DAY WITH MEALS. active Not Available Not Available No t Available OneTouch Verio test strips USE TO CHECK BLOOD SUGARS 4 DAILY. E11.9 active Not Available Not Available No t [...] gy Not Available Not Available Not Available OneTouch Verio Flex Meter USE TO CHECK BLOOD GLUCOSE 4X DAILY. E11.9 active Not Available Not Available No t Available Toujeo Max U-300 SoloStar 300 unit/mL [...] Not Available Not Available No t Available Digestive Advantage Probiotic 2 billion cell-140 mg capsule Take 1 capsule every day by oral route. active Not Available Not Available No t Available Gvoke HypoPen 1-Pack 1 mg/0.2 mL subcutane ous auto-inje ctor 08/22 completed Not Available Not Available Not Available FreeStyle Jam 3 Plus Sensor device active Not Available Not Available Not Available Vitals Date Recorded Body height Provider Name an d Address Organization Details Last Updated DateTime 08/03/2024 177.8 cm Azra Torres MA [facility] 08/03/2024 14:36:10 Date Recorded Body mass index (BMI) Body weight Heart rate Oxygen saturation Oxygen saturation in Arterial blood by Pulse oximetry Body temperature Systolic blood pressure Diastolic blood pressure Provider Name and Address Organization Details Last Updated DateTime 5 32.3 kg/m2 385181. 28 g 86 /min 97 % 97 % 98.4 [degF] 154 mm[Hg] 70 mm[Hg] Jaci santacruz MA [facility] 5 14:43:16 Date Recorded Body height Body mass index (BMI) Body weight Heart rate Oxygen saturation Oxygen saturation in Arterial blood by Pulse oximetry Body temperature Systolic blood pressure Diastolic blood pressure Provider Name and Address Organization Details Last Updated DateTime 5 177.8 cm 30.6 kg/m2 69253.1 7 g 84 /min 96 % 96 % 98.3 [degF] 150 mm[Hg] 66 mm[Hg] Casie stubbs MA [facility] 5 15:25:23 Date Recorded Systolic blood pressure Diastolic blood pressure Provider Name and Address Organization Details Last Updated DateTime 08/22/2024 154 mm[Hg] 72 mm[Hg] Elena Mata [facility] 08/22/2024 16:14:01 Date Recorded Body height Body mass index (BMI) Body weight Oxygen saturation Oxygen saturation in Arterial blood by Pulse oximetry Heart rate Body temperature Systolic blood pressure Diastolic blood pressure Provider Name and Address Organization Details Last Updated DateTime 5 177.8 cm 30.5 kg/m2 51272.3 8 g 97 % 97 % 91 /min 100.4 [degF] 163 mm[Hg] 77 mm[Hg] Dottie Moe MA [facility] 5 09:51:44 Date Recorded Body height Body mass index (BMI) Body weight Heart rate Oxygen saturation Oxygen saturation in Arterial blood by Pulse oximetry Body temperature Systolic blood pressure Diastolic blood pressure Provider Name and Address Organization Details Last Updated DateTime 5 177.8 cm 30 kg/m2 70327.8 1 g 92 /min 96 % 96 % 98.1 [degF] 120 mm[Hg] 63 mm[Hg] Azra Torres MA [facility] 5 08:31:24 Date Recorded Body height Body mass index (BMI) Body weight Oxygen saturation Oxygen saturation in Arterial blood by Pulse oximetry Heart rate Body temperature Systolic blood pressure Diastolic blood pressure Provider Name and Address Organization Details Last Updated DateTime 5 177.8 cm 29.6 kg/m2 67902.1 3 g 96 % 96 % 100 /min 98.4 [degF] 107 mm[Hg] 55 mm[Hg] Dottie Moe MA [facility] 5 14:04:18 Social History Question Answer Notes LastModified by Organizat ion Details LastModified Time Tobacco Smoking Status Never Smoker La Nena lucia [facility] 03/30/2014 15:10:37 Do You Have An Advance Directive? Yes Anne-Marie Waggoner (sister) Information not available 04/09/2015 Is Blood Transfusion Acceptable In An Emergency? Yes Information not available 04/09/2015 What Is Your Level Of Caffeine Consumption? Moderate Soda- 2-3 Daily Information not available 08/17/2023 How Much Tobacco Do You Chew? None Information not available 04/09/2015 What Type Of Diet Are You Following? CARBOHYDRATE Information not available 01/15/2017 Which Illicit Or Recreational Drugs Have You Used? None Information not available 04/09/2015 Live Alone Or With Others? With Others [...] To Smoke? No Information not available 04/09/2015 How Much Tobacco Do You Smoke? No Information not available 06/26/2014 Do You Use Sunscreen Routinely? Yes Information not available 04/09/2015 How Many Years Have You Smoked Tobacco? 0 Information not available 04/09/2015 Sex: Unknown Functional Status Question Answer Note LastModified by Organizat ion Details LastModified Time Do you use any illicit or recreational drugs? No Information not available 10/02/2021 Do you or have you ever used any other forms of tobacco or nicotine? No Information not available 10/02/2021 What is your level of alcohol consumption? None Information not available 06/26/2014 Do you or have you ever used smokeless tobacco? Never used smokeless tobacco Information not available 06/04/2020 Are you currently employed? Yes semi-retir ed Information not available 06/26/2014 Are you able to walk? YESWOREST Information not available 10/02/2021 Are you able to care for yourself? 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 Never used electronic cigarettes Information not available 06/04/2020 What is your exercise level? Moderate walking [...] e and Address Organization Details Recorded Time zoster live 7 completed Not Available [facility] 08/15/2023 18:06:39 zoster live 7 completed LUIS Ferrari [facility] 08/17/2023 15:12:09 COVID-19, mRNA, LNP-S, PF, 100 mcg/0.5mL dose or 50 mcg/0.25mL dose 1 completed LUIS Ferrari [facility] 08/17/2023 15:12:08 COVID-19, mRNA, LNP-S, PF, 100 mcg/0.5mL dose or 50 mcg/0.25mL dose 1 completed LUIS Ferrari [facility] 08/17/2023 15:12:08 COVID-19, mRNA, LNP-S, PF, 100 mcg/0.5mL dose or 50 mcg/0.25mL dose 1 completed LUIS Ferrari [facility] 08/17/2023 15:12:08 pneumococcal polysaccharide PPV23 9 [facility] 15:12:08 Influenza, split virus, quadrivalent, PF 5 completed LUIS Ferrari, [facility] 08/17/2023 15:12:09 Pneumococcal conjugate PCV 13 8 completed LUIS Ferrari, [facility] 08/17/2023 15:12:08 Influenza, split virus, trivalent, PF 4 completed LUIS Ferrari, [facility] 08/17/2023 15:12:09 Influenza, high-dose, quadrivalent, PF 1 completed LUIS Ferrari, [facility] 08/17/2023 15:12:08 Influenza, split virus, quadrivalent, PF 7 completed LUIS Ferrari, [facility] 08/17/2023 15:12:09 Influenza, high-dose, quadrivalent, PF 0 completed LUIS Ferrari, [facility] 08/17/2023 15:12:08 Influenza, split virus, quadrivalent, PF 8 completed LUIS Ferrari, [facility] 08/17/2023 15:12:09 Influenza, high-dose, trivalent, PF 9 completed LUIS Ferrari [facility] 08/17/2023 15:12:09 Td (adult), 2 Lf tetanus toxoid, preservative free, adsorbed 2 completed LUIS Ferrari [facility] 08/17/2023 15:12:09 Influenza, high-dose, quadrivalent, PF 2 completed LUIS Ferrari, [facility] 08/17/2023 15:12:08 Influenza, split virus, quadrivalent, PF 6 completed Not Available [facility] 08/13/2019 02:22:04 influenza, seasonal, intradermal, preservative free 2 completed Not Available [facility] 08/15/2023 18:06:39 Tdap 2 completed Not Available [facility] 08/15/2023 18:06:39 pneumococcal polysaccharide PPV23 2 completed Not Available [facility] 08/15/2023 18:06:38 influenza, seasonal, intradermal, preservative free 3 completed Not Available [facility] 08/15/2023 18:06:39 Influenza, high-dose, quadrivalent, PF 3 completed LUIS Zhao, [facility] 04/10/2023 13:42:39 Influenza, high-dose, trivalent, PF 4 completed LUIS Zhao, [facility] 04/11/2024 12:43:47 Past Encounters Encounter ID Performer Location Encounter Start Date Encounter Closed Date Diagnosis/Indication Diagnosis SNOMED-CT Code Diagnosis ICD10 Code Diagnosis Note [id number] autoEComm erce [address] [facility] [address] [place] [address] 01/14/2012 00:00:00 [id number] autoEComm erce [address] [facility] [address] [place] [address] 02/06/2012 00:00:00 [id number] autoEComm erce [address] [facility] [address] [place] [address] 04/28/2012 00:00:00 [id number] autoEComm erce [address] [facility] [place] [address] 07/23/2012 00:00:00 [id number] autoEComm erce [address] [facility] [place] [address] 11/22/2012 00:00:00 [id number] autoEComm erce [address] [facility] [place] [address] 04/14/2013 00:00:00 [id number] autoEComm erce [address] [facility] [place] [address] 10/14/2013 00:00:00 [id number] autoEComm erce [address] [facility] [address] [place] [address] 01/18/2014 00:00:00 [id number] GONZÁLEZ Higgins Main Office [address] [facility] [address] [place] [address] 03/30/2014 15:02:25 03/30/2014 15:47:43 Otitis media 62307631 [id number] Raheem García MD Main Office [address] [address] [place] [address] 04/03/2014 14:00:31 04/03/2014 14:41:19 Otitis media 65067198 Otitis externa 1757323 Body mass index 30+ - obesity 564386049 [id number] Raheem García MD Main Office [address] [address] [place] [address] 04/10/2014 12:42:38 04/10/2014 14:10:01 Type 2 diabetes mellitus 60805421 Gout 04545239 Hyperlipidemia 82980685 Tachycardia 6014408 Needs infl uenza immunization 869781640 [id number] Raheem García MD Main Office [address] [address] [place] [address] 04/12/2014 11:13:33 04/12/2014 11:52:39 Tachycardia 6979382 Renal diso rder due to type 2 diabetes mellitus 269443296 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 87549339 [id number] Raheem García MD Main Office [address] [address] [place] [address] 06/26/2014 14:28:50 06/26/2014 15:25:36 Uncontrolled type 2 diabetes mellitus 349211113 Gout 33188756 [id number] Raheem García MD Main Office [address] [address] [place] [address] 09/25/2014 12:48:58 09/25/2014 13:46:32 Uncontrolled type 2 diabetes mellitus 162710944 Chronic ki dney disease stage 1 208959775 Gout 67408406 [id number] Raheem García MD Main Office [address] [address] [place] [address] 12/25/2014 12:40:02 12/25/2014 14:04:58 Renal disorder due to type 2 diabetes mellitus 801502953 Chronic ki dney disease stage 1 423599595 Gout 84944626 [id number] Raheem García MD Main Office [address] [address] [place] [address] 04/09/2015 13:08:37 04/09/2015 14:08:54 Renal disorder due to type 2 diabetes mellitus 850765670 Hyperlipidemia 46800547 Needs infl uenza immunization 995441272 Chronic ki dney disease stage 1 229284222 Gout 95548794 [id number] Raheem García MD Main Office [address] [address] [place] [address] 07/13/2015 09:21:56 07/13/2015 10:28:30 Renal disorder due to type 2 diabetes mellitus 269404458 E11.29 Varicella vaccination 68 841305 Z23 Primary er ectile dysfunction 403681830 N52.9 [id number] Leigh Ann Quinteros PA-C Main Office [address] [address] [place] [address] 07/31/2015 12:54:40 07/31/2015 14:11:16 Type 2 diabetes mellitus 95408971 E11.9 Uncontroll ed type 2 diabetes mellitus 158749177 E11.65 Uncontroll ed type II DM with [...] Consider premeal insulin. DIsconitnu e regular soda. [id number] Leigh Ann Quinteros PA-C Main Office [address] [address] [place] [address] 07/31/2015 13:44:46 07/31/2015 14:11:24 Renal disorder due to type 2 diabetes mellitus 697867406 E11.29 Total time spent teaching and coordinati [...] ics. Return in 6 weeks with log. [id number] Leigh Ann Quinteros PA-C Main Office [address] [place] [address] 08/29/2015 12:48:13 08/29/2015 14:02:52 Uncontrolled type 2 diabetes mellitus 496137092 E11.65 UNcontroll ed DM with renal complicati [...] rder due to type 2 diabetes mellitus 587727585 E11.29 Renal disease due to HTN and uncontroll ed DM> PT. is advised to increase hydration. Avoid NSAIDs and eatlow POtassium diet. Continue ACEI as directed. Continue working on improving glycemic control with goal A1c under 7%. [id number] Leigh Ann Quinteros PA-C Main Office [address] [place] [address] 09/28/2015 13:43:12 09/28/2015 14:44:32 Renal disorder due to type 2 diabetes mellitus 615962779 E11.29 Renal disease due to HTN and uncontroll ed DM> PT. is advised to increase hydration. Avoid NSAIDs and eat low Potassium diet. Repeat BMP and microalbum in Continue ACEI as directed. Continue working on improving glycemic control with goal A1c under 7%. F/u 6 wks. Repeat BMP , microalb., and A1c before next visit. [id number] Leigh Ann Quinteros PA-C Main Office [address] [address] [place] [address] 12/05/2015 14:24:52 12/05/2015 15:05:58 Uncontrolled type 2 diabetes mellitus 521667728 E11.65 Uncontroll ed DM with renal complicati ons. Noncomplia nt to medicines and diet. Strongly advised to start HUmalog premeal at 10 u TID and increase Toujeo to 60 u daily at HS. Continue oral antidiabet ics and return as scheduled in December. Noncomplia nce with treatment 6382334 Z91.19 Hyperkalemia 70902018 E8 7.5 Secondary to chronic renal disease and ACEI. Stable at this point . Will f/u with nephrology as scheduled. Chronic ki dney disease stage 3 834174516 N18.3 [id number] Raheem García MD Main Office [address] [address] [place] [address] 01/15/2016 13:48:04 01/15/2016 14:43:13 Adult health examination 793648300 Z00.00 Renal diso rder due to type 2 diabetes mellitus 070852004 E11.29 Gout 75704852 M10.9 Hyperlipidemia 77511888 E78.5 Body mass index 30+ - obesity 948712534 Z68.30 [id number] Leigh Ann Quinteros PA-C Main Office [address] [address] [place] [address] 02/05/2016 13:46:17 02/05/2016 14:41:03 Uncontrolled type 2 diabetes mellitus 640305244 E11.65 Uncontroll ed DM with renal complicati ons. Noncomplia nt to using Humalog and testing TID. Strongly advised to start HUmalog premeal at 10 u TID and increase Toujeo to 60 u daily at HS. Continue oral antidiabet ics . F/u 6 weeks. Obesity 879537959 E66.9 Renal diso rder due to type 2 diabetes mellitus 514675688 E11.29 F/u with the nephrologi st as scheduled. BP is stable. [id number] Chelsey mendenhall MD Main Office [address] [facility] [address] [place] [address] 03/21/2016 15:21:07 03/21/2016 16:34:05 Impacted terrelln 80923991 H61.23 [id number] Leigh Ann Quinteros PA-C Main Office [address] [facility] [address] [place] [address] 04/29/2016 15:12:17 04/29/2016 16:43:53 Uncontrolled type 2 diabetes mellitus 783308404 E11.65 Uncontroll ed DM with renal complicati ons. Noncomplia nt to using Humalog and testing TID. Strongly advised to start HUmalog premeal at 10 u TID and increase Toujeo to 65 u daily at HS. Continue oral antidiabet ics . ? if taking Glipizide or not. F/u 2 months. Needs infl uenza immunization 858478075 Z23 Renal diso rder due to type 2 diabetes mellitus 516937749 E11.29 F/u with the nephrologi st as scheduled. BP is stable. Chronic ki dney disease stage 3 786090985 N18.3 [id number] Leigh Ann Quinteros PA-C Main Office [address] [facility] [address] [place] [address] 09/01/2016 14:24:47 09/01/2016 15:22:08 Uncontrolled type 2 diabetes mellitus 920128000 E11.65 Increase Toujeo to 75 u daily. Start using Humalog premeal as discussed at 10 u in am and at lunch and 15 before dinner. Test glucose 2 hrpc until next visit. Lower total calories and start exercise acitvity as discussed. Retest BMP and microalbum in. Renal diso rder due to type 2 diabetes mellitus 986542335 E11.29 F/u with the nephrologi st as scheduled in September. BP is stable. Noncomplia nce with treatment 9749857 Z91.19 Discussed ion length . TOtal time of visit 35 minutes. Body mass index 30+ - obesity 360609227 Z68.31 [id number] Leigh Ann Quinteros PA-C Main Office [address] [facility] [address] [place] [address] 12/15/2016 14:22:23 12/15/2016 15:07:26 Uncontrolled type 2 diabetes mellitus 365713058 E11.65 Compliance with premeal insulin is poor. Overall diabetic control is worsening. Will continue TOujeo at 70 u daily. Add Victoza at 0.6 mg daily SC for 1 week,. then if tolerated go to 1.2 mg. F/u 4-6 weeks with log. Renal diso rder due to type 2 diabetes mellitus 466315821 E11.29 F/u with the nephrologi st as scheduled in September. BP is stable. Chronic ki dney disease stage 3 482093452 N18.3 f/u with the nephrologi st as scheduled. Noncomplia nce with treatment 7821719 Z91.19 Discussed ion length . TOtal time of visit 35 minutes. Body mass index 30+ - obesity 585933726 Z68.30 [id number] Raheem García MD Main Office [address] [address] [place] [address] 12/24/2016 12:01:17 12/26/2016 12:14:38 [id number] Leigh Ann Quinteros PA-C Main Office [address] [place] [address] 01/05/2017 10:55:52 01/05/2017 12:12:38 Acute injury of kidney 0976972626 0669326 N17.9 F/u with nephrologi st as scheduled this afternoon. Labs to be done this afternoon. Renal diso rder due to type 2 diabetes mellitus 855588171 E11.29 Continue Toujeo at 75 u daily. Start HUmalog at 5 u TID premeal. Test glucose TID premeal. Continue low carb diet and return with log in 4 weeks. LOwer GLipizide ER to 5 mg daily to avoid hypoglycem ia. Chronic ki dney disease stage 3 721638940 N18.3 f/u with the nephrologi st as scheduled. [id number] Raheem García MD Main Office [address] [address] [place] [address] 01/15/2017 13:46:35 01/15/2017 14:51:16 Adult health examination 338842883 Z00.00 Varicella vaccination 68 557711 Z23 Screening for malignant neoplasm of colon 697884654 Z12.11 Displaceme nt of lumbar intervertebral disc without myelopathy 77289934 M51.26 Followed as needed by [facility] Proteinuria 48256497 R80 .9 Renal diso rder due to type 2 diabetes mellitus 682610316 E11.29 Continues close follow up to improve blood sugar control Chronic ki dney disease stage 3 599861539 N18.[address] Martínez for renal [id number] Leigh Ann Quinteros PA-C Main Office [address] [facility] [address] [place] [address] 02/16/2017 14:02:59 02/16/2017 14:44:01 Renal disorder due to type 2 diabetes mellitus 649555024 E11.29 Continue Toujeo at 74 u daily. Humalog at 5-10 u TID premeal. Test glucose TID premeal. Restart Metfromin ER 500 mg 2 po qd with supper. Lower total calories and increase exercise activity. F/u 6 weeks with repeat A1c. Chronic ki dney disease stage 3 309609396 N18.3 just was seen by nephrologi st . STable condition. Body mass index 30+ - obesity 575690397 Z68.31 [id number] Leigh Ann Quinteros PA-C Main Office [address] [facility] [address] [facility] [place] [address] 04/01/2017 13:38:26 04/01/2017 15:02:23 Renal disorder due to type 2 diabetes mellitus 017071723 E11.29 Improve consistenc y of pre-prandi al 10 U Humalog. Discussed that if you forget to inject humalog prior to meals, can inject at 5 U during or after eating which may help. Lower total calories, fat intake and increase exercise activity. Improve consistenc y with diet. F/u 6 weeks with repeat A1c. Increase Toujeo to 80 U. Needs infl uenza immunization 631597913 Z23 Body mass index 30+ - obesity 056579719 Z68.31 Improve diet - decrease fats, caloric intake and salt intake. Increase exercise. Proteinuria 98572421 R80 .9 Just seen by Nephrologi st. Stable condition. Chronic ki dney disease stage 3 290018630 N18.3 Just was seen by nephrologi st Pierce Stable condition. [id number] Leigh Ann Quinteros PA-C Main Office [address] [facility] [address] [facility] [place] [address] 05/13/2017 13:39:04 05/13/2017 14:43:09 Renal disorder due to type 2 diabetes mellitus 500413852 E11.22 Current on meds, asymptomat ic. Glucose readings stable, A1c last checked in 04/01/17 at 10.0, will reassess prior to net visit in 6 wks renal disease stable. seen by nephrologbart bill Chronic ki dney disease stage 3 434643932 N18.3 stable. seen by nephrologbart bill Impacted cerumen 7547649 6 H61.23 cerumen obstructio n present bilaterall y, more prominent on L ear Hyperlipidemia 03636317 E78.1 Body mass index 30+ - obesity 591025091 E66.9 Z68.31 [id number] Leigh Ann Quinteros PA-C Main Office [address] [facility] [address] [place] [address] 07/10/2017 10:54:28 07/10/2017 12:02:12 Renal disorder due to type 2 diabetes mellitus 282299717 E11.22 STable CKD stg 3 diabetic and hypertensi ve. Needs better diabetic control, but struggles with inconsiste ncy in diet and premeal insulin injection. WE discussed that again and will continue trying to improve those issues. He will be seen by aracely bill in 3 m and by me at around the same time for diabetic f/u. He was advised to take 1-2 weeks and test 2 hrpc to do revision on his Humalog dosage. [place] is advised at 80 u daily. Chronic ki dney disease stage 3 748289589 N18.3 stable. seen by [facility]. Labs are done at [facility] office. Administra tion of pneumococcal vaccine 12422526 Z23 Body mass index 30+ - obesity 908656010 E66.9 Z68.35 Z68.30 [id number] Leigh Ann Quinteros PA-C Main Office [address] [place] [address] 12/08/2017 15:00:07 12/08/2017 15:45:19 Renal disorder due to type 2 diabetes mellitus 122566514 E11.22 STable CKD stg 3 diabetic and hypertensi ve. Needs better diabetic control, but struggles with consistenc y in diet and premeal insulin injection. WE discussed that again and will continue trying to improve those issues. Pt. was seen by the nephbhavin bill 2 weeks ago and had labs and A1c done there. He was advised to take 1-2 weeks and test 2 hrpc to do revision on his Humalog dosage. Toujeo is advised at 84 u daily. HUmalog add additional 3 u to sliding scale. Continue testing. F/u with log in 4 weeks. Chronic ki dney disease stage 3 791914535 N18.3 [facility] Labs are done at nephrologi office. Body mass index 25-29 - overweight 288125319 E66.3 Z68.28 [id number] Leigh Ann Quinteros PA-C Main Office [address] [facility] [address] [place] [address] 01/26/2018 09:26:49 01/26/2018 10:45:39 Renal disorder due to type 2 diabetes mellitus 047946474 E11.22 STable CKD stg 3 disease. [facility]. [facility] after having labs repeated. Diabetic [...] days. Chronic ki dney disease stage 3 173902564 N18.3 [facility]. [facility]. [id number] Raheem García MD Main Office [address] [facility] [address] [place] [address] 03/05/2018 12:46:45 03/05/2018 13:48:52 Hepatitis C screening 606197064 Z11.59 Active or passive immunization 965088279 Z23 Adult heal th examination 304331411 Z00.00 Renal diso rder due to type 2 diabetes mellitus 501642841 E11.29 Continues close follow up to improve blood sugar control Screening for malignant neoplasm of colon 871522828 Z12.11 Administra tion of pneumococcal vaccine 25357645 Z23 Displaceme nt of lumbar intervertebral disc without myelopathy 55802335 M51.26 Followed as needed by [facility] Chronic ki dney disease stage 3 827903701 N18.[address] Martínez for renal [id number] Leigh Ann Quinteros PA-C Main Office [address] [facility] [address] [place] [address] 04/16/2018 14:32:14 04/16/2018 15:26:03 Renal disorder due to type 2 diabetes mellitus 202825572 E11.22 Stable CKD stg 3 disease. REcom. [...] weeks with log. Needs infl uenza immunization 014909963 Z23 Chronic ki dney disease stage 3 285575627 N18.3 Body mass index 25-29 - overweight 966737004 E66.3 Z68.25 Z68.29 Noncomplia nce with therapeutic regimen 092325742 Z91.19 Diabetic on insulin 1707 99619 E11.9 Z79.4 [id number] Chelsey mendenhall MD Main Office [address] [facility] [address] [place] [address] 09/20/2018 14:29:18 09/20/2018 15:48:17 Renal disorder due to type 2 diabetes mellitus 460471575 E11.22 Pt. is noncomplia nt to medical [...] m. Chronic ki dney disease stage 3 121854685 N18.3 Noncomplia nce with therapeutic regimen 655012609 Z91.19 Diabetic on insulin 1707 31538 E11.9 Z79.4 [id number] Raheem García MD Main Office [address] [address] [place] [address] 04/15/2019 15:10:15 04/15/2019 16:44:44 Adult health examination 251829666 Z00.00 Influenza vaccine needed 8831622813 106 Z23 Administra tion of pneumococcal vaccine 70997587 Z23 Renal diso rder due to type 2 diabetes mellitus 525485605 E11.29 followed by [facility] in [place], [place]. HbA1c was 9.3% on 04/04/2019 . Screening for malignant neoplasm of colon 152496172 Z12.11 Screening for malignant neoplasm of prostate 983234511 Z12.5 [id number] Raheem García MD Main Office [address] [address] [place] [address] 06/04/2020 14:46:40 06/04/2020 16:05:14 Adult health examination 943303121 Z00.00 Influenza vaccine needed 1102328543 106 Z23 Renal diso rder due to type 2 diabetes mellitus 844074731 E11.22 Continue quarterly follow-up of serum creatinine , blood pressure, glycemic control. Followed by renal (Kranthi). Chronic ki dney disease stage 3 772652678 N18.30 Renal hypertension 61360 000 I12.9 Medication s reviewed. Will continue present medication s or changes as indicated. Follow home BP. Gout 55711981 M10.9 Diabetic on insulin 1707 86932 Z79.4 Poor short -term memory 054745203 R41.3 Failed cognitive screening. Declines workup. Feels he has not problems with memory. [id number] Raheem García MD [facility] [address] [address] [place] [address] 01/04/2021 09:10:39 01/04/2021 14:44:18 Iliopsoas bursitis of right hip 2353365132 652572 M70.71 [id number] Vivi De MD Main Office [address] [address] [place] [address] 06/18/2021 13:02:00 06/18/2021 13:55:14 Chronic kidney disease stage [address] Martínez advised regular follow up. Renal diso rder due to type 2 diabetes mellitus 685631484 E11.22 N18.32 [facility] a1c 06/18/21: [...] ry consult provided Adult heal th examination 195005588 Z00.00 Patient was counseled on healthy diet, [...] . Advance directives discussed. Influenza vaccine needed 5609674419 106 Z23 Fatigue 07935075 R53.83 Hyperlipidemia 36240367 E78.5 Hypomagnesemia 319853369 E83.42 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 99236755 D64.9 Advance di rective discussed with patient 203649965 Z71.89 [facility]/HCP provided and discussed. Gout 05095458 M10.9 Colitis 48456005 K52.9 Impacted c erumen of bilateral ears 9170806288 034224 H61.23 [id number] Vivi De MD Main Office [address] [facility] [address] [place] [address] 10/02/2021 14:12:30 10/02/2021 14:47:26 Chronic kidney disease stage [address] Martínez advised regular follow up. Renal diso rder due to type 2 diabetes mellitus 279409337 E11.22 [facility] a1c 11/21: [...] with endoPodiat ry consult provided Skin lesion 08356604 L98 .9 Pearly lesion on left ear does not use spf.Possib le BCC, vs skin tag will make urgent referral derm. Hypertensi ve renal disease 35444238 I12.9 Low sodium diet discussedC ounseled on medication adherenceC ounseled on diet/exerc iseDoes not check bp at homeRed flags of HTN emergency discussed and when to go to ED. [id number] Vivi De MD Main Office [address] [facility] [address] [facility] [place] [address] 12/09/2021 12:51:48 12/09/2021 13:30:05 Acute hyperkalemia 3421445 E87.5 Has kayexalate for nephro, was supposed to use and admitted to not use it.Has note seen renal since last fall - advised follow upHe is asymptomat ic, will hold ecg for now.Sugar controlled discussed. Renal diso rder due to type 2 diabetes mellitus 023922931 E11.22 [facility] endo for diabetesHb a1d donetx per [...] provided Chronic ki dney disease stage [address] Martínez advised regular follow up. Hypertensi ve renal disease 86108302 I12.9 Low sodium diet discussedC ounseled on medication adherenceC ounseled on diet/exerc iseDoes not check bp at homeRed flags of HTN emergency discussed and when to go to ED. Skin lesion 51928055 L98 .9 S/p resection follow derms. Adhesive c apsulitis of shoulder 374369960 M75.01 M75.02 Anemia of chronic disease 895653654 D63.8 Will continue to monitor cbc. 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 31024734 D64.9 Will continue to monitor in 3 mo visit. [id number] Chelsey mendenhall MD Main Office [address] [facility] [address] [facility] [place] [address] 03/05/2022 14:01:11 03/05/2022 15:22:09 Partial thickness burn of lower limb 63649058 T24.201A pt is a diabetic, will start antibiotic s to cover for infection. Use silvadene cream bid, mostly on any open areas, avoid maceration . Keep covered when out, can use light covering at home. Call if not improving or if worsening. Requires a tetanus booster 864531105 Z23 due for Td booster [id number] Vivi De MD Main Office [address] [facility] [address] [facility] [place] [address] 03/17/2022 14:29:22 03/17/2022 15:32:37 Renal disorder due to type 2 diabetes mellitus 332259195 E11.22 [facility]s [facility] endo for diabetesHb a1d done currently [...] one Chronic ki dney disease stage [address] Martínez advised regular follow up. Hypertensi ve renal disease 33522237 I12.9 Low sodium diet discussedC ounseled on medication adherence - [facility] order.Coun seled on diet/exerc iseDoes not check bp at homeRed flags of HTN emergency discussed and when to go to ED.Notes home BP wnl. Anemia of chronic disease 620511970 D63.8 Will continue to monitor cbc at annual. 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 54161716 D64.9 Will continue to monitor in 3 mo visit. Essential hypertension 17219697 I10 Edema of l ower extremity 761059619 R60.0 compressio n stocking advised [id number] Vivi De MD Main Office [address] [address] 05/27/2022 13:44:10 05/27/2022 14:20:42 Pneumonitis 331498586 J18.9 Begin zithromax at 500 mg daily for 1 week. Pt. is advised to take Mucinex for cough. [id number] Vivi De MD Main Office [address] [address] 07/15/2022 14:17:14 07/15/2022 15:35:02 Renal disorder due to type 2 diabetes mellitus 469591300 E11.22 Follows [facility] endo for diabetesHb a1d orderedtx per [...] one Chronic ki dney disease stage [address] Martínez advised regular follow up. Hypertensi ve renal disease 62511561 I12.9 Low sodium diet discussedC ounseled on medication adherence - accuheal order.Coun seled on diet/exerc iseDoes not check bp at homeRed flags of HTN emergency discussed and when to go to ED.Notes home BP wnl. Anemia of chronic disease 282003270 D63.8 Will continue to monitor cbc at annual. Edema of l ower extremity 525331572 R60.0 compressio n stocking advised Adult heal th examination 084537687 Z00.00 Patient was counseled on healthy diet, [...] Medication reconciled . Advance directives discussed. Fatigue 24383593 R53.83 Hyperlipidemia 03996522 E78.5 Hypomagnesemia 834326451 E83.42 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 43457303 D64.9 Will continue to monitor in 3 mo visit. Advance di rective discussed with patient 373931797 Z71.89 MOLST/HCP provided and discussed. Gout 53283729 M10.9 Impacted c erumen of bilateral ears 3496382166 304483 H61.23 Administra tion of viral vaccine 14222509 Z23 Varicella vaccination 68 149434 Z23 [id number] Vivi De MD Main Office [address] [facility] [address] [facility] [place] [address] 04/10/2023 12:52:49 04/10/2023 13:49:56 Renal disorder due to type 2 diabetes mellitus 832305971 E11.22 Follows [facility] for diabetestx per endo. (humalog 15 units TID, tresiba 65 units), reminded to reach out to [facility].Will stop Pioglitazo ne and have care per Endo perhaps he might be a good candidate for GLP1 vs SGLT 2.Tells me last a1c at [facility] was 6.8On statin.Oph thalmology exam has apt [...] in seeing one Hypertensi ve renal disease 09161881 I12.9 bp soft will hold amlodipine . Advised to check bp. Chronic ki dney disease stage [address] Martínez advised regular follow up. Edema of l ower extremity 353540647 R60.0 compressio n stocking advised Insomnia 629803620 G47.0 0 Pericardial effusion 373 328783 I31.39 Likely 2/2 to fluid overload, now on HD. Influenza vaccine needed 9976999599 106 Z23 Abrasion 066204205 T14.8 XXA Right 4th toe, no warmth or fluctuance , no drainage, area cleaned and bacitracin placed and bandage. Advised daily wound check. Call if no improvemen t. Also advised to follow podiatry. [id number] Vivi De MD Main Office [address] [facility] [address] [facility] [place], [place] [address] 08/17/2023 14:49:27 08/17/2023 16:07:35 Adult health examination 851865456 Z00.00 Patient was counseled on healthy diet, exercise and nutrition due to Body mass index is 31.6 kg/m? ? ?. Last PSADate: 12/06/21Res ult: 1.5Plan: wants to stop screening. Last Colonoscop y:Date: 09/15/2019R esult: acute colitisPla n: tells me next due in 10 yrs, Vaccines:T d: 03/05/22Zos ter rec:script provided [id number] : 03/05/18PPS V23: 07/23/12, 04/15/19PCV 20: DiscussedI nfluenza: 04/10/23Cov id: 08/17/20, 09/14/20, 06/23/21, encourage updated vaccineRSV : Discussed Routine labs today Immunizati on status reviewed. Will screen based on risk factors. Regular dental and ophtho care advised as well as seat belt and sunscreen use. Distracted driving discussed. Medication reconciled . Advance directives discussed. Advance di rective discussed with patient [id number] Z71.89 MOLST/HCP provided and discussed. Administra tion of pneumococcal vaccine 31820446 Z23 Administra tion of viral vaccine 87204508 Z29.11 Chronic ki dney disease stage [address] Martínez advised regular follow up. Renal diso rder due to type 2 diabetes mellitus 746298252 E11.22 tx per [facility], a1c/microa lbumin [...] glucose at home Diabetic on insulin 1707 52817 Z79.4 Fatigue 59456394 R53.83 Z00.00 Hyperlipidemia 34529248 E78.5 Z00.00 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 17348046 D64.9 Will continue to monitor in 3 mo visit. Varicella vaccination 68 689311 Z23 Gout 09541053 M10.9 Hyperkalemia 62832828 E8 7.5 Insomnia 581983206 G47.0 0 Noncomplia nce with therapeutic regimen 887353182 Z91.199 Venereal d isease screening 370419947 Z20.2 Z11.3 [id number] Vivi De MD Main Office [address] [place] [address] 11/24/2023 15:25:07 11/24/2023 16:18:16 Vitamin D deficiency 66161727 E55.9 on supplement ation Insomnia 112560294 G47.0 0 Reviewed the risk of benzo use. Will continue current regimen till he is evaluated by sleep medicine.C ontrol substance completed. Displaceme nt of lumbar intervertebral disc without myelopathy 18089984 M51.26 Follows pain management Chronic ki dney disease stage 4 420716932 N18.4 Cont. renal follow up. Hypertensi ve renal disease 47567466 I12.9 Stable on current regimen. Renal diso rder due to type 2 diabetes mellitus 438586912 E11.22 Follows [facility]. History of calculus of kidney 748303017 Z87.[address] he had done by urology reveals he has cleared renal stone [id number] Vivi De MD Main Office [address] [place] [address] 12/15/2023 13:23:53 12/15/2023 13:53:43 Acute conjunctivitis 79006275 H10.33 Allergic conjunctivitis 604763837 H10.13 Allergic rhinitis 969436 04 J30.9 Trigger fi nger of left hand [id number] 7572406 M65.312 [id number] Chapito Paz MD Main Office [address] [place] [address] 02/24/2024 13:21:08 02/24/2024 14:18:03 Fatigue 80125733 R53.83 No clear etiology. Possible infectious although his only symptoms is fatigue. Does not appear to be mood related. [id number] Vivi De MD Main Office [address] [place] [address] [place] [address] 03/01/2024 13:49:15 03/01/2024 14:47:08 Fatigue 86836334 R53.83 Z00.00 Alkaline p hosphatase above reference range 825591192 R74.8 Hypertensi ve renal disease 35637185 I12.9 Chronic ki dney disease stage 4 062358173 N18.4 Cont. renal follow up. [id number] Vivi De MD Main Office [address] [address] [place] [address] 03/07/2024 10:48:01 03/07/2024 11:37:38 Hyperglycemia due to type 2 diabetes mellitus 4659786069 91341 E11.65 Insulin tr eated type 2 diabetes mellitus 586407157 Z79.4 Liver enzy mes level above reference range 888392357 R74.01 Vitamin D deficiency 347 31309 E55.9 on supplement ation, compliance discussed. Urinary tr act infectious disease 81270666 N39.0 -Has fatigue could be uti, will renally dose with levaquin every other day.-Advis ed to monitor glucose.-H ydration enforced. Hyperkalemia 26776395 E8 7.5 -ECG done 03/01/24 visit. Insomnia 592910566 G47.0 0 Reviewed the risk of benzo use. Will continue current regimen till, advised to follow up with sleep medicine for sleep study. Hypertensi ve renal disease 50158508 I12.9 Advised to increase amlodipine to 2 (2.5mg) he has a follow up with renal in 2 weeks. Advised to monitor to bp then. I will re-check with him in 1 week. Chronic ki dney disease stage 4 923004340 N18.4 Cont. renal follow up. [id number] Vivi De MD Main Office [address] [place] [address] [place] [address] 04/11/2024 10:54:20 04/11/2024 12:28:00 Hyperglycemia due to type 2 diabetes mellitus 2581374579 49162 E11.65 Follows endo. Insulin tr eated type 2 diabetes mellitus 905410145 Z79.4 Liver enzy mes level above reference range 999634177 R74.01 Vitamin D deficiency 347 77709 E55.9 on supplement ation followed by renal. Insomnia 103875592 G47.0 0 -Reviewed the risk of benzo use. Will continue current regimen, Advised to follow up with sleep medicine for sleep study. Hypertensi ve renal disease 61279974 I12.9 Advised to increase amlodipine to 2 (2.5mg) he has a follow up with renal in 2 weeks. Advised to monitor to bp then. I will re-check with him in 1 week. Chronic ki dney disease stage 4 312310342 N18.4 Cont. renal follow up. Influenza vaccine needed 0272486003 106 Z23 65 YEARS AND OLDER Urinary tr act infectious disease 91114986 N39.0 Resolved after tx. [id number] Vivi De MD Main Office [address] [place] [address] 05/17/2024 14:27:11 05/17/2024 15:24:40 Ulcer of foot 42433726 L97.919 He is a diabetic, will cover with abx (bactrim), Granulatio n tissue noted. Area marked 5.5x5.5 cm.CrCl > 30 , Calculated with January 2024 Cr, calculated to be 33.Advised to keep area clean and dry.Angel r protection with Vaseline.A void pedicure.R eferral to mailhouse operator provided.Vaibhav alfredo glycemic control encouraged Follow up 1 week. [id number] Vivi De MD Main Office [address] [place] [address] 05/27/2024 15:08:01 05/27/2024 15:44:58 Ulcer of foot 92113553 L97.919 Area is healing well has granulatio n tissue.He did not see mailhouse operator . I will refer to wound clinic due to compliance issues and the fact that he is a diabetic,N o further abx needed at this time.Encou raged glycemic control.En couraged to keep the area covered and protected. [id number] Chapito Paz MD Main Office [address] [place] [address] 08/03/2024 14:24:21 08/03/2024 15:28:21 Edema of lower extremity 804085104 R60.0 This is most likely related to his kidney disease. Will recheck kidney labs and will also check a proBNP. Heart failure is a possibilit y but will hold off on an ECHO. Doubt DVT since both LE's are involved. We discussed a reduced salt diet as well as elevation. [id number] Vivi De MD Main Office [address] [facility] [address] [facility] [place], [place] [address] 08/22/2024 15:00:03 08/22/2024 16:16:31 Adult health examination 909549832 Z00.00 Patient was counseled on healthy diet, exercise and nutrition due to Body mass index is 30.6 kg/m? ? ?. Last PSADate: 03/01/24Resu lt: 2.9Plan: past age for screening Last Colonoscop y:Date: 09/15/2019R esult: acute colitisPla n: tells me next due in 10 yrs, Vaccines:T d: 03/05/22Zos ter rec: Script provided [id number] : 03/05/18PPS V23: 07/23/12, 04/15/19PCV 20: DiscussedI nfluenza: 04/11/24Cov id: encourage updated vaccineRSV : Discussed Routine labs today Immunizati on status reviewed. Will screen based on risk factors. Regular dental and ophtho care advised as well as seat belt and sunscreen use. Distracted driving discussed. Medication reconciled . Advance directives discussed. Advance di rective discussed with patient 008811708 Z71.89 MOLST/HCP provided and discussed. Renal diso rder due to type 2 diabetes mellitus 307982695 E11.22 tx per [facility], microalbum in [...] glucose at home Diabetic on insulin 1707 47880 Z79.4 Hyperlipidemia 96164641 E78.5 Z00.00 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 38892885 D64.9 Will continue to monitor in 3 mo visit. Gout 51591535 M10.9 Hyperkalemia 85616760 E8 7.5 Fatigue 33368241 R53.83 Z00.00 Insomnia 187160642 G47.0 0 -Reviewed the risk of benzo use. Will continue current regimen, Advised to follow up with sleep medicine for sleep study. Varicella vaccination 68 225901 Z23 Chronic ki dney disease stage [address] Martínez advised regular follow up. Alkaline p hosphatase above reference range 901863863 R74.8 Vitamin D deficiency 347 05808 E55.9 on supplement ation followed by renal. Hypertensi ve renal disease 36541455 I12.9 Bp elevated increase amlodipine to 10mg. Follow up 1 mo. [id number] Jose Bell MD Main Office [address] [place] [address] 11/02/2024 09:34:28 11/02/2024 10:57:07 Fever 419023692 R50.9 fever of unknown etiology - d/w Dr. De - check labs, urine, cxrwill rx c empiric abx - to help keep him out of the hospitalre commend probiotics while on abx Chronic ki dney disease stage 4 120067199 N18.4 cont lasix 40mg bid as per renal - next f/u c renal next wedmost likely has cardiorena l syndrome*w ill fwd copy of this ov note to renal* Renal diso rder due to type 2 diabetes mellitus 628130935 E11.22 cont meds, f/u c endo as dir Heart failure 55545513 I 50.9 as per renal note last week was hypervolem ic - began lasix 40mg bid - see [place] 24 lbs from renal ov last weekmost likely has HFpEF d/t results of echo 08.18.24 (see above)chec k labsrec avoid saltdoes not appear pt sees cardiologi st - will discuss c pt at f/u visit next week Dysuria 02703861 R30.0 [id number] Vivi De MD Main Office [address] [facility] [address] [place] [address] 11/14/2024 08:24:29 11/14/2024 09:22:59 Venereal disease screening 328323558 Z11.3 Left flank pain 42395228 9 R10.9 Fever 134872545 R50.9 Pneumonia caused by respiratory syncytial virus 215474253 J12.1 Chill 61483198 R68.83 [id number] Vivi De MD Main Office [address] [facility] [address] [place] [address] 11/23/2024 13:55:19 11/23/2024 14:35:36 Backache 129275918 M54.89 Alkaline p hosphatase above reference range 085636050 R74.8 History of hepatitis B 110538750 Z86.19 lab suggest he has cleared the virus. discussed result with him. Cyst of kidney 884458141 N28.1 Lesion of lung 346152191 J98.4 Chronic ki dney disease stage [address] Martínez advised regular follow up. Health Concerns Section Related Observation LastModified by Organization Detai ls LastModified Time None Recorded Concern Status LastModified by Organization Details LastModified Time None Recorded Advance Directives Directive Y: Anne-Marie Waggoner (sister) Payers Encounter Date Sequence Insurance Name Policy Number Policy Frederick Covered Member ID Frederick Member ID Guarantor Name 08/03/2024 1 [employer] (MEDICARE REPLACEMENT/A DVANTAGE - PPO) [id number] Ryan Waggoner [id number] Ryan Waggoner 08/22/2024 1 [employer] (MEDICARE REPLACEMENT/A DVANTAGE - PPO) [id number] Ryan Waggoner [id number] Ryan Waggoner 11/02/2024 1 [employer] (MEDICARE REPLACEMENT/A DVANTAGE - PPO) [id number] Ryan Waggoner [id number] Ryan Waggoner 11/14/2024 1 [employer] (MEDICARE REPLACEMENT/A DVANTAGE - PPO) [id number] Ryan Waggoner [id number] Ryan Wade Labantoni 11/23/2024 1 [employer] (MEDICARE REPLACEMENT/A DVANTAGE - PPO) [id number] Ryan Waggoner [id number] Ryankamila Waggoner Notes Date Note Type Note Provider Name and Address Organization Details Recorded Time 08/03/2024 text/html He has been havi ng [...] had variable control. Chapito Paz MD [address], [address], [facility] 08/03/2024 18:09:03 08/22/2024 text/html Medicare Annual Wellness [...] not at goal. Continues to work with [facility] Follows renal for CKD4 Vivi De MD [address] [facility] [address], [place], [address], [facility] 08/22/2024 17:25:23 11/02/2024 text/html here for hospita l f/u - pna, rsv == no dc summary to reviewapparently he went [facility] - transferred [facility] - discharged on 10.22since then, has [...] has low grade fever, wt stable from 1.. ov but wt down from last week c renal (236 lbs) since is breathing easier and less LE edema as per family - no cough, sob, wheezing+ fatigueno dysuria but h/o recurrent uti's Vivi De MD [address] [facility] [address], [place], [address], [facility] 11/04/2024 12:23:31 11/14/2024 text/html The patient pres [...] is also under the care of a steam clothes press operator and reports feeling much better overall. Prior to his hospitalization, he experienced chills. His son questioned whether Lasix could have contributed to his symptoms. However, the patient currently denies any chills and continues to take Lasix as prescribed by his steam clothes press operator. They also inquired about refills for sodium bicarbonate and sodium polystyrene sulfonate, both prescribed by the steam clothes press operator; I advised them to contact that provider [...] the importance of close follow-up with his steam clothes press operator and advised that acetaminophen is the safest aqnr-vdr-vnbqyxa pain reliever for him, not exceeding 3 grams in 24 hours, with a suggested dose of (2) 500 mg every 6 hours as needed. He is overdue for follow-up with his urologist, and I encouraged him to call their office to schedule an appointment. As for his recovery from RSV and secondary pneumonia, he is currently afebrile and asymptomatic. Vivi De MD [address], [address], [facility] 11/14/2024 10:39:22 11/23/2024 text/html Back PainReporte d bypatient.Location:martin n radiating to the buttocks Quality:dull Severity:improving Duration:intermittent Onset/Timing:recurrent episode; 3 weeks Context:prior back problems Aggravating Factors:twisting Associated Symptoms:no fever; no weak limbs; no numbness of the legs/feet; no tingling; no incontinence; no shortness of breathNotes:Patient presents for follow-up of left-sided flank pain, which initially radiated from the flank to the groin. Currently, the pain has shifted and is now radiating from the mid-thoracic region down to the gluteal area. He reports that the pain has improved with the use of warm compresses and topical IcyHot cream, both of which provide some relief. He also follows with [facility] for ongoing lower back issues. Vivi De MD [address], [address], [facility] 11/23/2024 19:18:58
--- OUTSIDE RECORDS SUMMARY | 2024-12-14 15:27 | XMS_ITS | Clinical Summary ---
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 Role Phone Unavailable Primary [...] Description 10/18/2024 4:00 PM EDT Ancillary Procedure [facility] Radiology [address] [place] [address] Provider, File Room 10/18/2024 10:27 AM EDT - 10/22/2024 11:46 AM EDT Hospital Encounter [facility] [address] [phone] Marcelino Garcia MD Elias, Michael, MD Javed, MD Lucía Joshi, MD Christal Acute hypoxic respiratory failure (HCC) (Primary Dx); Pneumonia due to infectious organism, unspecified laterality, unspecified part of lung Discharge Disposition: Home or Self Care 10/17/2024 Orders Only [facility] Radiology [address] [place] [address] Provider, File Room from Last 3 Months Social History Tobacco Use Types Packs/Day Years Used Date Smoking Tobacco: Never Assessed [facility] Utilities Answer Date Recorded In the past 12 months has [employer], gas, oil, or water [employer] threatened to shut off services in your [...] time in the past [address] [facility], were you homeless or living in a halfway (including now)? No 10/21/2024 Sex and Gender [...] - 11.0 Thou/uL 10/22/2024 8:07 AM EDT [facility] Platelet Count 243 150 - 450 Thou/uL 10/22/2024 8:07 AM EDT [facility] Hemoglobin 8.4(L) 13.0 - 17.7 g/dL 10/22/2024 8:07 AM EDT [facility] Hematocrit 26.7(L) 39.0 - 54.0 % 10/22/2024 8:07 AM EDT [facility] Red Blood Cell Count 2.87(L) 4.50 - 6.20 Mil/uL 10/22/2024 8:07 AM EDT [facility] MCV 93 80 - 100 fL 10/22/2024 8:07 AM EDT [facility] MCH 29.3 27.0 - 31.0 pg 10/22/2024 8:07 AM EDT [facility] MCHC 31.5 30.0 - 36.0 g/dL 10/22/2024 8:07 AM EDT [facility] RDW 14.6(H) 11.5 - 14.5 % 10/22/2024 8:07 AM EDT [facility] MPV 11.0 7.5 - 12.5 fL 10/22/2024 8:07 AM EDT [facility] nRBC 0.5(H) 0.0 - 0.1 /100 WBC 10/22/2024 8:07 AM EDT [facility] nRBC, Absolute 0.06(H) 0.00 - 0.02 Thou/uL 10/22/2024 8:07 AM EDT [facility] Bands Man 4 % 10/22/2024 9:31 AM EDT [facility] Neutrophils Man 86 % 9:31 AM EDT [facility] Lymphocytes Man 7 % 9:31 AM EDT [facility] Monocytes Man 3 % 10/22/2024 9:31 AM EDT [facility] Abs Neutrophils Count (ANC) 10.6(H) 2.0 - 7.5 Thou/uL 10/22/2024 9:31 AM EDT [facility] Abs Lymphocytes Man 0.8(L) 1.5 - 4.5 Thou/uL 10/22/2024 9:31 AM EDT [facility] Abs Monocytes Man 0.4 0.2 - 1.5 Thou/uL 10/22/2024 9:31 AM EDT [facility] Macrocytes Occasional 10/22/2024 9:[address] [facility] Polychromasia Occasional 10/22/2024 9:31 AM EDT [facility] Hypochromia Occasional 10/22/2024 9:31 AM EDT [facility] Spherocytes Occasional 10/22/2024 9:31 AM EDT [facility] Blood Blood specimen / Unknown 10/22/2024 7:49 AM EDT 10/22/2024 8:00 AM EDT us Christal Castrejon MD LAB BLOOD ORDERABLES Final Resul t [facility] [address] [place] [address], * (ABNORMAL) Basic Metabolic Panel (Early AM) (10/22/2024 7:49 AM EDT) Only the most recent of2 resultswithin the time period is included. Glucose 145(H) 74 - 106 mg/dL 10/22/2024 8:37 AM EDT [facility] Comment:Fasting: <100 mg/dL, Non-Fasting: <200 mg/dL (ADA 2004) Blood Urea Nitrogen (BUN) 107(H) 9 - 23 mg/dL 10/22/2024 8:37 AM EDT [facility] Creatinine 6.1(H) 0.7 - 1.3 mg/dL 10/22/2024 8:37 AM EDT [facility] eGFR 9(L) >59 10/22/2024 8:37 AM EDT [facility] Comment:CKD-EPI (2020) in mL /min/1.73 sq meters. Sodium 146(H) 136 - 145 mmol/L 10/22/2024 8:37 AM EDT [facility] Potassium 3.8 3.4 - 4.5 mmol/L 10/22/2024 8:37 AM EDT [facility] Chloride 107 98 - 107 mmol/L 10/22/2024 8:37 AM EDT [facility] CO2 23 20 - 31 mmol/L 10/22/2024 8:37 AM EDT [facility] Anion Gap 16(H) 5 - 15 10/22/2024 8:37 AM EDT [facility] Calcium 8.2(L) 8.7 - 10.5 mg/dL 10/22/2024 8:37 AM EDT [facility] BUN/Creatinine Ratio 18 10.0 - 25.0 Ratio 10/22/2024 8:37 AM EDT [facility] Blood Blood specimen / Unknown 10/22/2024 7:49 AM EDT 10/22/2024 8:00 AM EDT us Christal Castrejon MD LAB BLOOD ORDERABLES Final Resul t [facility] [address] [place] [address], * (ABNORMAL) POCT Glucose, Fingerstick (10/22/2024 7:42 [...] - 5.1 mg/dL 10/20/2024 6:13 AM EDT [facility] Blood Blood specimen / Unknown 10/20/2024 5:31 AM EDT 10/20/2024 5:37 AM EDT us Hadley Johnson MD LAB BLOOD ORDERABLES Final Resu lt [facility] [address] [place] [address], * MAGNESIUM (10/20/2024 5:31 AM EDT) Only the most recent of3 resultswithin the time period is included. Magnesium 2.1 1.6 - 2.6 mg/dL 10/20/2024 6:13 AM EDT [facility] Blood Blood specimen / Unknown 10/20/2024 5:31 AM EDT 10/20/2024 5:37 AM EDT us Hadley Johnson MD LAB BLOOD ORDERABLES Final Resu lt [facility] [address] [place] [address], * (ABNORMAL) Comprehensive Metabolic Panel (10/20/2024 5:31 AM EDT) Only the most recent of3 resultswithin the time period is included. Glucose 141(H) 74 - 106 mg/dL 10/20/2024 6:13 AM EDT [facility] Comment:Fasting: <100 mg/dL, Non-Fasting: <200 mg/dL (ADA 2004) Blood Urea Nitrogen (BUN) 100(H) 9 - 23 mg/dL 10/20/2024 6:13 AM EDT [facility] Creatinine 6.6(H) 0.7 - 1.3 mg/dL 10/20/2024 6:13 AM EDT [facility] eGFR 8(L) >59 10/20/2024 6:13 AM EDT [facility] Comment:CKD-EPI (2020) in mL /min/1.73 sq meters. Sodium 143 136 - 145 mmol/L 10/20/2024 6:13 AM EDT [facility] Potassium 4.0 3.4 - 4.5 mmol/L 10/20/2024 6:13 AM EDT [facility] Chloride 108(H) 98 - 107 mmol/L 10/20/2024 6:13 AM EDT [facility] CO2 22 20 - 31 mmol/L 10/20/2024 6:13 AM EDT [facility] Calcium 7.4(L) 8.7 - 10.5 mg/dL 10/20/2024 6:13 AM EDT [facility] Alkaline Phosphatase 150(H) 45 - 128 U/L 10/20/2024 6:13 AM EDT [facility] Aspartate Aminotrans (AST) 37(H) <34 U/L 10/20/2024 6:13 AM EDT [facility] Alanine Aminotrans (ALT) 23 10 - 49 U/L 10/20/2024 6:13 AM EDT [facility] Bilirubin, Total 0.2(L) 0.3 - 1.2 mg/dL 10/20/2024 6:13 AM EDT [facility] Protein, Total 6.8 5.7 - 8.2 g/dL 10/20/2024 6:13 AM EDT [facility] Albumin 3.5 3.4 - 4.8 g/dL 10/20/2024 6:13 AM EDT [facility] BUN/Creatinine Ratio 15 10.0 - 25.0 Ratio 10/20/2024 6:13 AM EDT [facility] Globulin 3.3 1.5 - 3.9 g/dL 10/20/2024 6:13 AM EDT [facility] Albumin/Globulin Ratio 1.0(L) 1.5 - 2.5 Ratio 10/20/2024 6:13 AM EDT [facility] Anion Gap 13 5 - 15 10/20/2024 6:13 AM EDT [facility] Blood Blood specimen / Unknown 10/20/2024 5:31 AM EDT 10/20/2024 5:37 AM EDT us Hadley Johnson MD LAB BLOOD ORDERABLES Final Resu lt [facility] [address] [place] [address], [place] * (ABNORMAL) POCT Blood Gas, Arterial (10/19/2024 3:46 PM EDT) Only the most recent of5 resultswithin the time period is included. Sample Type Arterial 10/19/2024 3:[address] [facility] Lab pH, Arterial 7.36 7.35 - 7.45 10/19/2024 3:[address] [facility] Lab pCO2, Arterial 36 35 - 45 mmHG 10/19/2024 3:[address] [facility] Lab pO2, Arterial 48(LL) 80 - 100 mmHG 10/19/2024 3:[address] [facility] HCO3 20.0(L) 22 - 26 mmol/L 10/19/2024 3:[address] [facility] O2 Saturation, Arterial 79.0(L) 95 - 100 % 10/19/2024 3:[address] [facility] Base Deficit, Arterial 4.5 mmol/L 10/19/2024 3:[address] [facility] Comment:REFERENCE RANGE: NEG ATIVE 2 TO POSITIVE 2 Liter Flow, I-STAT 3.0 10/19/2024 3:[address] [facility] Lab Comments POC VENOUS 10/19/2024 3:[address] [facility] 10/19/2024 3:46 PM EDT 10/19/2024 3:48 PM EDT Hadley Johnson MD POCT ORDERABLES - DEVICE Final Result [facility],PULMONARY LAB [address] [place] [address], [facility],Pulmonary Lab [address] [facility], [place] * XR Chest 1 view-Portable [...] ??No definite acute abnormalities. Procedure Note Brandon iL MD - 10/19/2024 CLINICAL INFORMATION: new shortness [...] is included. Ventricular rate 94 BPM EKG [facility] Atrial rate 94 BPM EKG [facility] P-R interval 138 ms EKG [facility] QRS [facility] 88 ms EKG [facility] Q-T interval 386 ms EKG [facility] QTC calculation (Bazett) 483 ms EKG [facility] P axis 60 degrees EKG [facility] R axis 19 degrees EKG [facility] T axis 55 degrees EKG [facility] 10/19/2024 9:20 AM EDT Narrative EKG [facility] - 10/19/2024 9:41 AM EDT Normal sinus rhythm Prolonged QT Abnormal ECG When compared with ECG of 18-Oct-2024 11:36, No significant change was found Confirmed by MD Troy, Roland ([id number]) on 10/19/2024 9:41:44 AM Procedure Note Roland Simmons MD - 10/19/2024 Normal sinus rhythm Prolonged QT Abnormal ECG When compared with ECG of 18-Oct-2024 11:36, No significant change was found Confirmed by MD Simmons Venu ([id number]) on 10/19/2024 9:41:44 AM us Hadley Johnson MD ECG ORDERABLES Final Result Performing Organization Address [facility] Co de Phone Number EKG [facility] * (ABNORMAL) POCT, Ionized Calcium (10/18/2024 11:02 PM EDT) POC Ionized Calcium 4.30(L) 4.60 - 5.32 mg/dL 10/18/2024 11:[address] [facility] Smear Cmt LEFT RADIAL POSITIVE COLLATERAL No comment 10/18/2024 11:[address] [facility] 10/18/2024 11:0 2 PM EDT 10/18/2024 11:05 PM EDT us Hadley Johnson MD POCT ORDERABLES - DEVICE Final Result Performing Organization Address [facility] Co de Phone Number [facility],PULMONARY LAB [address] [place] [address], [facility],Pulmonary Lab [address] [place], [place] * POCT, Lactate (10/18/2024 11:02 PM EDT) Lactate, POC 0.6 0.4 - 0.8 mmol/L 10/18/2024 11:[address] [facility] Comment LEFT RADIAL POSITIVE COLLATERAL No comment 10/18/2024 11:[address] [facility] 10/18/2024 11:0 2 PM EDT 10/18/2024 11:05 PM EDT us Hadley Johnson MD POCT ORDERABLES - DEVICE Final Result Performing Organization Address City/[facility]/ZIP Co de Phone Number [facility],PULMONARY LAB [address] [place] [address], [facility],Pulmonary Lab [address] [facility], [place] * POCT, Sodium (10/18/2024 11:02 PM EDT) Sodium 138 136 - 145 mmol/L 10/18/2024 11:[address] [facility] Smear Comm LEFT RADIAL POSITIVE COLLATERAL No comment 10/18/2024 11:[address] [facility] 10/18/2024 11:0 2 PM EDT 10/18/2024 11:05 PM EDT us Hadley Johnson MD POCT ORDERABLES - DEVICE Final Result Performing Organization Address [facility] Co de Phone Number [facility]PUL[facility] [address] [place] [address], [facility],Pulmonary Lab [address] [facility], [place] * POCT, Potassium (10/18/2024 11:02 PM EDT) Potassium 4.3 3.5 - 5.1 mmol/L 10/18/2024 11:[address] [facility] Comment LEFT RADIAL POSITIVE COLLATERAL No comment 10/18/2024 11:[address] [facility] 10/18/2024 11:0 2 PM EDT 10/18/2024 11:05 PM EDT us Hadley Johnson MD POCT ORDERABLES - DEVICE Final Result Performing Organization Address City/[facility]/ZIP Co de Phone Number [facility]PUL[facility] LAB [address] [place] [address], [facility],Pulmonary Lab [address] [facility], [place] * (ABNORMAL) POCT, Hematocrit (10/18/2024 11:02 PM EDT) Hematocrit 25.0(L) 40 - 50 % 10/18/2024 11:[address] [facility] Comment LEFT RADIAL POSITIVE COLLATERAL 10/18/2024 11:[address] [facility] 10/18/2024 11:0 2 PM EDT 10/18/2024 11:05 PM EDT us Hadley Johnson MD POCT ORDERABLES - DEVICE Final Result [facility]PULMONARY LAB [address] [place] [address], [facility],Pulmonary Lab [address] [place], [place] * (ABNORMAL) POCT, Glucose (10/18/2024 11:02 PM EDT) Glucose POC 206(H) 70 - 108 mg/dL 10/18/2024 11:[address] [facility] Comment LEFT RADIAL POSITIVE COLLATERAL No comment 10/18/2024 11:[address] [facility] 10/18/2024 11:0 2 PM EDT 10/18/2024 11:05 PM EDT us Hadley Johnson MD POCT ORDERABLES - DEVICE Final Result [facility],PULMONARY LAB [address] [place] [address], [facility],Pulmonary Lab [address] [place], [place] * POCT, Cooximetry (10/18/2024 11:02 PM EDT) Carboxyhemoglobin 0.0 % 025 11:[address] [facility] Methemoglobin 0.7 % 10/18/2024 11:[address] [facility] Oxyhemoglobin, POC 94.8000 % 2024 11:[address] [facility] Reduced Hemoglobin 4.5 % 2024 11:[address] [facility] Hemoglobin, POC 8.4 11:[address] [facility] POC Sample Type Arterial 11:[address] [facility] Comment LEFT RADIAL POSITIVE COLLATERAL 10/18/2024 11:[address] [facility] 10/18/2024 11:0 2 PM EDT 10/18/2024 11:05 PM EDT Hadley Johnson MD POCT ORDERABLES - DEVICE Final Result [facility],PULMONARY LAB [address] [place] [address], [facility],Pulmonary Lab [address] [place], [place] * (ABNORMAL) Urinalysis with Reflex to Microscopic and Culture (10/18/2024 5:26 PM EDT) Color Yellow 10/18/2024 9:15 PM EDT [facility] Clarity Clear 10/18/2024 9:15 PM EDT [facility] Specific [place] 1.016 1.003 - 1.030 10/18/2024 9:15 PM EDT [facility] pH 5.0 5.0 - 8.0 10/18/2024 9:15 PM EDT [facility] Leukocyte Esterase Negative Negative 10/18/2024 9:15 PM EDT [facility] Nitrite Negative Negative 10/18/2024 9:15 PM EDT [facility] Protein Large (300 mg/dL)(A) Negative 10/18/2024 9:15 PM EDT [facility] Glucose Moderate 0 - 99 mg/dL 10/18/2024 9:15 PM EDT [facility] Ketones Negative Negative 10/18/2024 9:15 PM EDT [facility] Blood Large(A) Negative 10/18/2024 9:15 PM EDT [facility] Urobilinogen 0.2 0.2 - 1.0 EU/dL 10/18/2024 9:15 PM EDT [facility] Bilirubin Negative Negative 10/18/2024 9:15 PM EDT [facility] WBC 9(H) 0 - 4 per hpf 10/18/2024 9:15 PM EDT [facility] RBC 50(H) 0 - 4 per hpf 10/18/2024 9:15 PM EDT [facility] Bacteria Negative Negative 10/18/2024 9:15 PM EDT [facility] Squamous Epithelial Cells 2 per hpf 10/18/2024 9:15 PM EDT [facility] Hyaline Casts 1 0 - 4 per lpf 10/18/2024 9:15 PM EDT [facility] Yeast Absent Absent 10/18/2024 9:15 PM EDT [facility] Urine Urine specimen obtained by clean catch procedure / Unknown 10/18/2024 5:26 PM EDT 10/18/2024 8:56 PM EDT us Hadley Johnson MD URINE ORDERABLES Final Result Performing Organization Address City/State/[facility] Co de Phone Number [facility] [address] [place] [address], * Legionella & Streptococcus Pneumoniae Antigen, Urine (10/18/2024 5:26 PM EDT) Legionella Antigen EIA, Urine Presumptive Negative Presumptive Negative 10/19/2024 8:59 AM EDT [facility] Comment: Presumptive Negative [...] Negative Presumptive Negative 10/19/2024 8:59 AM EDT [facility] Comment:Presumptive Negative for Pneumococcal Pneumonia, suggesting no recent or current Pneumococcal Infection. Infection due to S.pneumoniae cannot be ruled out since the antigen level present in the specimen may be below the detection limit of the test. Urine Urine specimen / Unknown 10/18/2024 5:26 PM EDT 10/18/2024 8:57 PM EDT us Hadley Johnson MD URINE ORDERABLES Final Result [facility] [address] [place] [address], [place] * Protein/Creatinine Ratio Panel, Urine (10/18/2024 5:26 PM EDT) Protein Urine, Random 338 mg/dL 10/18/2024 10:06 PM EDT [facility] Comment:Reference range not established for random specimen. Creatinine, Urine, Random 114 mg/dL 10/18/2024 9:30 PM EDT [facility] Comment:Reference range not established for random specimen. Protein/Creatini ne Ratio, Urine 2.96 10/18/2024 10:06 PM EDT [facility] Urine Urine specimen / Unknown 10/18/2024 5:26 PM EDT 10/18/2024 8:57 PM EDT us Hadley Johnson MD URINE ORDERABLES Final Result [facility] [address] [place] [address], [place] * CT Chest/abdomen+pelvis w/o contrast (10/18/2024 [...] FILMS Final Resu lt Performing Organization Address City/[facility]/ZIP Co de Phone Number NIMESH [phone] * (ABNORMAL) PTH, Intact (10/18/2024 3:00 PM EDT) PTH, Intact 755(H) 18 - 80 pg/mL 10/18/2024 4:18 PM EDT [facility] Blood Blood specimen / Unknown 10/18/2024 3:00 PM EDT 10/18/2024 3:39 PM EDT Hadley Johnson MD LAB BLOOD ORDERABLES Final Resu lt Performing Organization Address City/[facility]/ZIP Co de Phone Number [facility] [address] [place] [address], * Nasal MRSA Screen, PCR (10/18/2024 2:45 PM EDT) MRSA Result Not Detected Not Detected 4:16 PM EDT [facility] Swab, Anterior Nares Specimen from nose / Unknown 10/18/2024 2:45 PM EDT 10/18/2024 2:58 PM EDT us Hadley Johnson MD MICROBIOLOGY - GENERAL ORDERABL ES Final Result Performing Organization Address [facility] [place] [address], * Lactic Acid, Plasma (STAT) (10/18/2024 1:43 PM EDT) Lactic Acid 1.2 0.5 - 1.9 mmol/L 10/18/2024 2:11 PM EDT [facility] Blood Blood specimen / Unknown 10/18/2024 1:43 PM EDT 10/18/2024 1:49 PM EDT us Hadley Johnson MD LAB BLOOD ORDERABLES Final Resu lt Performing Organization Address [facility] [place] [address], [place] * Blood Culture (10/18/2024 12:11 PM EDT) Only the most recent of2 resultswithin the time period is included. Culture Sterile after 5 days 10/23/2024 7:06 AM EDT [facility] Blood Blood specimen / Unknown 10/18/2024 12:11 PM EDT 10/18/2024 12:42 PM EDT Comment:Blood us Hadley Johnson MD LAB BLOOD ORDERABLES Final Resu lt Performing Organization Address [facility]/ZIP Co de Phone Number [facility] [address] [place] [address], [place] * (ABNORMAL) B-Hydroxybutyrate (10/18/2024 12:09 PM EDT) B-Hydroxybutyrate 0.30(H) <0.28 mmol/L 10/18/2024 2:02 PM EDT [facility] Comment: In the presence of uncontrolled [...] ORDERABLES Final Resu lt [facility] [address] [place] [address], from Last 3 Months Insurance [employer] [id number] Advance Directives * Full Code (Latest Code Status on File) Date Activated Date Inactivated Comments 10/18/2024 11:07 AM
--- NOTE | 2024-12-14 15:28 | HO.NEPHOV ---
Vital Signs 12/14/24 15:29 Height 5 ft 11 in Weight 210 lb 2 oz BMI 29.3 BP 124/70 Blood Pressure Location Rt brachial Position Sitting Pulse 87 Pulse Source Pulse Oximeter Pulse Oximetry (%) 97 Oxygen Delivery Method Room Air Intake Visit Reasons: 1mon follow-up w/labs-LVM Tester Wafer Substrate Required: No Accompanied by: Self / Same As Patient Allergies No Known Allergies Allergy (Verified 12/14/24 15:29) HPI Comments Details: Ryan recently had a hospitalization with pneumonia and RSV. He had acute kidney injury on 2 separate occasions in the past needing hemodialysis on both those times. He has biopsy-proven diabetic nephropathy. His blood sugar control has been bad . He follows up with an veneer repairer machine. His blood pressure has been at goal. His edema is resolved. His appetite is good and does not have any hypoglycemia. He has no urinary symptoms. He denied taking nonsteroidal anti-inflammatories. His serum creatinine is marginally worse.He denies uremic symptoms. [facility] Medical History Proteinuria Type 2 diabetes mellitus with diabetic nephropathy Hypertension Acute kidney injury Review of Systems Const All systems reviewed & are unremarkable except as noted in HPI and below Physical Exam Vital Signs: Last Vital Signs Pulse 87 12/14/24 15:29 BP 124/70 12/14/24 15:29 Pulse Ox 97 12/14/24 15:29 Oxygen Delivery Method Room Air 12/14/24 15:29 BMI result Body Mass Index 29.3 Const General: comfortable and no acute distress Orientation/consciousness: patient oriented x3 HEENT Head: Yes normocephalic Mouth: Normal oral and palatal mucosa present Eyes EOM: EOMs intact bilaterally Neck Neck: Yes supple Resp Auscultation: clear to auscultation bilaterally Cardio Jugular venous distension: no JVD Rate: regular rate GI Palpation (GI): Soft to palpation Auscultation: normal bowel sounds General: Yes no CVA tenderness Back/Spine/Pelvis Back: no CVA tenderness Skin General skin exam: no rashes or lesions noted Neuro General: patient oriented x3 and moves all extremities Extrem General: Yes no pedal edema Results Reviewed Nephrology Results: Hgb 8.7 g/dl (14.0-18.0) L 12/13/24 WBC 8.1 X10*3/uL (4.8-10.8) 12/13/24 Plt Count 236 X10*3/uL (160-400) 12/13/24 Sodium 138 mmol/L (135-145) 12/13/24 Potassium 5.6 mmol/L (3.3-5.1) H 12/13/24 Chloride 109 mmol/L (96-108) H 12/13/24 Carbon Dioxide 21 mmol/L (22-29) L 12/13/24 BUN 63 mg/dL (9-16) H 12/13/24 Creatinine 4.92 mg/dL (0.5-1.4) H* 12/13/24 Calcium 7.9 mg/dL (8.4-10.2) L 12/13/24 Urine Protein >=1000 (4+) mg/dL (Neg-Trace) H 11/17/24 Assessment & Plan Assessment & Plan (1) Chronic kidney disease, stage 4 (severe): Code(s): N18.4 - Chronic kidney disease, stage 4 (severe) Category: Medical (2) Diabetic nephropathy: Code(s): E11.21 - Type 2 diabetes mellitus with diabetic nephropathy Category: Medical Qualifiers: Diabetes mellitus type: type 2 Qualified Code(s): E11.21 - Type 2 diabetes mellitus with diabetic nephropathy (3) Hyperkalemia: Code(s): E87.5 - Hyperkalemia Category: Medical (4) Secondary hyperparathyroidism (of renal origin): Code(s): N25.81 - Secondary hyperparathyroidism of renal origin Category: Medical (5) Hypertension: Code(s): I10 - Essential (primary) hypertension Category: Medical Qualifiers: Hypertension type: primary hypertension Qualified Code(s): I10 - Essential (primary) hypertension Plan Ryan recently had BENJAMIN due to heart failure which improved on Lasix 40 mg b.i.d. His renal functions are marginally worse. I reduced his lasix to 40 mg daily. His serum K is high. He should be on a low K diet. I started him on Kionex. There is no indication for any renal replacement therapy .He will need Procrit injections at the next visit if his hemoglobin does not improve and if his transferrin saturation is more than 20%, which I shall arrange that through my office many indicated. Answered all his questions. Follow-up appointment given. Orders: Orders Creatinine Today E11.21 - Type 2 diabetes mellitus with diabetic nephropathy, N18.4 - Chronic kidney disease, stage 4 (severe) Blood Urea Nitrogen Today E11.21 - Type 2 diabetes mellitus with diabetic nephropathy, N18.4 - Chronic kidney disease, stage 4 (severe) Complete Blood Count Auto Diff 2 Weeks E11.21 - Type 2 diabetes mellitus with diabetic nephropathy, N18.4 - Chronic kidney disease, stage 4 (severe) Electrolytes Today E11.21 - Type 2 diabetes mellitus with diabetic nephropathy, N18.4 - Chronic kidney disease, stage 4 (severe) Medications: New sodium polystyrene sulfonate 30 grams PO .Q 3 times a week 453.6 grams 5RF Changed From furosemide (Lasix) 40 mg PO BID 60 tabs 3RF To furosemide (Lasix) 40 mg PO DAILY 60 tabs 3RF Coding Level of Care Code Est Pt Level 4 (97155) Diagnoses Chronic kidney disease, stage 4 (severe) N18.4 Diabetic nephropathy associated with type 2 diabetes mellitus E11.21 Diabetes mellitus type: type 2 Hyperkalemia E87.5 Secondary hyperparathyroidism (of renal origin) N25.81 Primary hypertension I10 Hypertension type: primary hypertension
[2024-12-14 15:29] VITALS: BP 124/70; PULSE 87; O2SAT 97; BMI 29.3
== END 2024-12-14 16:01 | disposition home or self-care (01) ==
LOC: HO.HKA 15:24
PROVIDERS: PCP Family Medicine; Visit Provider Internal Medicine Nephrology
DX: E11.21 Type 2 diabetes mellitus with diabetic nephropathy (principal); N18.4 Chronic kidney disease, stage 4 (severe); E87.5 Hyperkalemia; N25.81 Secondary hyperparathyroidism of renal origin; I12.9 Hypertensive chronic kidney disease with stage 1 through stage 4 chronic kidney disease, or unspecified chronic kidney disease
CPT/HCPCS: 99214

== ENCOUNTER → 2024-12-14 15:23 | Outpatient (BNVA) | payer MEDICARE, SELFPAY | PROVIDERS: PCP Family Medicine; Visit Provider Internal Medicine Nephrology | DX: E11.22 Type 2 diabetes mellitus with diabetic chronic kidney disease (principal); I12.9 Hypertensive chronic kidney disease with stage 1 through stage 4 chronic kidney disease, or unspecified chronic kidney disease; N18.4 Chronic kidney disease, stage 4 (severe); E11.21 Type 2 diabetes mellitus with diabetic nephropathy; E87.5 Hyperkalemia; N25.81 Secondary hyperparathyroidism of renal origin | CPT/HCPCS: 99212 ==

== ENCOUNTER 2024-12-26 13:03 | Outpatient (REF) | payer MEDICARE, SELFPAY ==
--- OUTSIDE RECORDS SUMMARY | 2024-12-26 14:04 | XMS_ITS | Patient Health Record ---
Author Organization [facility] riana Latah Address [address] [place] [address] Care Team Providers Care Watch Adjuster Name Role Phone Raheem García MD Primary Care Provider Unavailab [place] Quach Unavailable [phone] Reason For Referral No Information Medications Medication SIG (Take, Route, Fr equency, Duration) Notes Start Date End Date Status Amitriptyline HCl Ac tive metFORMIN HCl Active Temazepam Active Allopurinol Active Immunizations Vaccine Route Administration Date Status Comme nts Influenza Unknown 03/28/2019 Administered Social History Tobacco Use: Social History Observation Description Date Details (start date - stop date) Never Smoker NA - NA Tobacco Use/Smoking Question Answer Notes Are you a: nonsmoker Alcohol Screen Question Answer Notes Did you have a drink containing alcohol in the p ast year? No Points 0 Interpretation Negative Tobacco use other than smoking: Question Answer Notes Are you an other tobacco user? No Problems Problem Type SNOMED Code ICD Code Onset Dates Problem Status W/U Status Risk Notes Problem Acquired hammer toe of right foot (7821222202468 105) Other hammer toe(s) (acquired), right foot (M20.41) Active confirmed Problem Acquired hammer toe of left foot (6296710267483 103) Other hammer toe(s) (acquired), left foot (M20.42) Active confirmed Plan Of Treatment Pending Test Test Name Order Date [id number] NAIL, 1-5 01/09/2020 26019- Debride <25 sq cm 01/24/2020 76454 I&D ABSCESS- SIMPLE,SINGLE 020 [id number] NAIL(S) 01/09/2020 Insurance Providers Payer Name Payer Address Payer Phone Subscriber Number Group Number Insured Name Patient Relationship to Insured Coverage Start Date Coverage End Date [employer] Medicare [id number] [address] [address] [place] [address] [phone] [id number] Ryan Chauhan Self - patient is the insured Medical (General) History Medical History History ICD Code type II diabetes Kidney disease Measles Mumps Chicken pox Surgical History Surgery Date(Month/Year)
[2024-12-26 16:10] LABS: MANUAL DIFF FLAG NO
[2024-12-26 16:15] LABS: Basophils Absolute Auto 0.1 X10*3/uL (0.0-0.2); Basophils Percent Auto 0.6 % (0-2); Eosinophils Absolute Auto 0.5 X10*3/uL (0.0-0.4); Eosinophils Percent Auto 5.3 % (0-4); Hematocrit 27.2 % (42.0-52.0); Hemoglobin 8.7 g/dl (14.0-18.0); Imm Gran Abs Auto 0.13 X10*3/uL (0.00-0.03); Imm Gran Pct Auto 1.5 % (0.0-0.4); Lymphocytes Absolute Auto 1.4 X10*3/uL (1.2-4.9); Lymphocytes Percent Auto 15.8 % (20-40); Mean Corpuscular Hemoglobin 29.9 pg (27.0-33.0); Mean Corpuscular Volume 93.5 fL (80.0-98.0); Monocytes Absolute Auto 0.9 X10*3/uL (0.1-1.2); Monocytes Percent Auto 10.4 % (2-11); Neutrophils Absolute Auto 5.7 x10*3/uL (2.0-8.3); Neutrophils Percent Auto 66.4 % (45-73); Platelet Count 248 X10*3/uL (160-400); Red Blood Count 2.91 X10*6/uL (4.60-5.80); Red Cell Distribution Width 14.8 % (11.0-16.0); White Blood Count 8.6 X10*3/uL (4.8-10.8)
== END 2024-12-26 13:04 | disposition home or self-care (01) ==
LOC: HO.HMGCLDS 13:03
PROVIDERS: PCP Family Medicine; Visit Provider Internal Medicine Nephrology
DX: E11.21 Type 2 diabetes mellitus with diabetic nephropathy (principal); N18.4 Chronic kidney disease, stage 4 (severe)
CPT/HCPCS: 36415; 85025

== ENCOUNTER 2024-12-28 15:32 | Outpatient (AMB) | payer MEDICARE, SELFPAY ==
--- NOTE | 2024-12-28 15:43 | HO.NEPHOV ---
Vital Signs 12/28/24 15:44 Height 5 ft 11 in Weight 213 lb BMI 29.7 BP 114/70 Blood Pressure Location Rt brachial Position Sitting Pulse 81 Pulse Source Pulse Oximeter Pulse Oximetry (%) 94 Oxygen Delivery Method Room Air Intake Visit Reasons: 2 weeks fu Certified Pediatric Nurse Practitioner Required: No Accompanied by: Self / Same As Patient Allergies No Known Allergies Allergy (Verified 12/14/24 15:29) HPI Comments Details: Ryan was seen in F/U for advanced CKD. He has H/O acute kidney injury on 2 separate occasions in the past needing hemodialysis on both those times. He has biopsy-proven diabetic nephropathy. His blood sugar control has been bad . He follows up with an butt presser. His blood pressure has been at goal. His edema is resolved. His appetite is good and does not have any hypoglycemia. He has no urinary symptoms. He denied taking nonsteroidal anti-inflammatories. His serum creatinine is marginally worse.He denies uremic symptoms. [facility] Medical History Proteinuria Type 2 diabetes mellitus with diabetic nephropathy Hypertension Acute kidney injury Review of Systems Const All systems reviewed & are unremarkable except as noted in HPI and below Physical Exam Vital Signs: Last Vital Signs Pulse 81 12/28/24 15:44 BP 114/70 12/28/24 15:44 Pulse Ox 94 12/28/24 15:44 Oxygen Delivery Method Room Air 12/28/24 15:44 BMI result Body Mass Index 29.7 Const General: comfortable and no acute distress Orientation/consciousness: patient oriented x3 HEENT Head: Yes normocephalic Mouth: Normal oral and palatal mucosa present Eyes EOM: EOMs intact bilaterally Neck Neck: Yes supple Resp Auscultation: clear to auscultation bilaterally Cardio Jugular venous distension: no JVD Rate: regular rate GI Palpation (GI): Soft to palpation Auscultation: normal bowel sounds General: Yes no CVA tenderness Back/Spine/Pelvis Back: no CVA tenderness Skin General skin exam: no rashes or lesions noted Neuro General: patient oriented x3 and moves all extremities Extrem General: Yes no pedal edema Results Reviewed Nephrology Results: Hgb 8.7 g/dl (14.0-18.0) L 12/26/24 WBC 8.6 X10*3/uL (4.8-10.8) 12/26/24 Plt Count 248 X10*3/uL (160-400) 12/26/24 Sodium 138 mmol/L (135-145) 12/13/24 Potassium 5.6 mmol/L (3.3-5.1) H 12/13/24 Chloride 109 mmol/L (96-108) H 12/13/24 Carbon Dioxide 21 mmol/L (22-29) L 12/13/24 BUN 63 mg/dL (9-16) H 12/13/24 Creatinine 4.92 mg/dL (0.5-1.4) H* 12/13/24 Calcium 7.9 mg/dL (8.4-10.2) L 12/13/24 Urine Protein >=1000 (4+) mg/dL (Neg-Trace) H 11/17/24 Assessment & Plan Assessment & Plan (1) Chronic kidney disease, stage 4 (severe): Code(s): N18.4 - Chronic kidney disease, stage 4 (severe) Category: Medical (2) Secondary hyperparathyroidism (of renal origin): Code(s): N25.81 - Secondary hyperparathyroidism of renal origin Category: Medical (3) Hypertension: Code(s): I10 - Essential (primary) hypertension Category: Medical Qualifiers: Hypertension type: primary hypertension Qualified Code(s): I10 - Essential (primary) hypertension (4) Diabetic nephropathy: Code(s): E11.21 - Type 2 diabetes mellitus with diabetic nephropathy Category: Medical Qualifiers: Diabetes mellitus type: type 2 Qualified Code(s): E11.21 - Type 2 diabetes mellitus with diabetic nephropathy (5) Anemia in chronic kidney disease: Code(s): N18.9 - Chronic kidney disease, unspecified; D63.1 - Anemia in chronic kidney disease Category: Medical Qualifiers: Chronic kidney disease stage: stage 4 (GFR 15-29) Qualified Code(s): N18.4 - Chronic kidney disease, stage 4 (severe); D63.1 - Anemia in chronic kidney disease (6) Hyperkalemia: Code(s): E87.5 - Hyperkalemia Category: Medical Plan His renal functions are marginally worse. I reduced his lasix to 40 mg daily alternating with 20 mg every other day. His serum K is high. He should be on a low K diet. I started him on Kionex. There is no indication for any renal replacement therapy .He will need Procrit injections at the next visit with me. He needs to loose weight. Answered all his questions. Follow-up appointment given. Orders: Orders Creatinine 1 Month N18.4 - Chronic kidney disease, stage 4 (severe) Blood Urea Nitrogen 1 Month N18.4 - Chronic kidney disease, stage 4 (severe) Electrolytes 1 Month N18.4 - Chronic kidney disease, stage 4 (severe) Medications: New sevelamer carbonate must administer with a meal/food 0.8 grams PO TID 90 ea 3RF Changed From sodium bicarbonate 1,300 mg PO BID for indigestion To sodium bicarbonate 1,300 mg (2 x 650 mg) PO BID 30 days 120 tabs 3RF Coding Level of Care Code Est Pt Level 4 (89567) Diagnoses Chronic kidney disease, stage 4 (severe) N18.4 Secondary hyperparathyroidism (of renal origin) N25.81 Primary hypertension I10 Hypertension type: primary hypertension Diabetic nephropathy associated with type 2 diabetes mellitus E11.21 Diabetes mellitus type: type 2 Anemia in stage 4 chronic kidney disease N18.4; D63.1 Chronic kidney disease stage: stage 4 (GFR 15-29) Hyperkalemia E87.5
[2024-12-28 15:44] VITALS: BP 114/70; PULSE 81; O2SAT 94; BMI 29.7
== END 2024-12-28 16:12 | disposition home or self-care (01) ==
LOC: HO.HKA 15:32
PROVIDERS: PCP Family Medicine; Visit Provider Internal Medicine Nephrology
DX: I12.9 Hypertensive chronic kidney disease with stage 1 through stage 4 chronic kidney disease, or unspecified chronic kidney disease (principal); E11.22 Type 2 diabetes mellitus with diabetic chronic kidney disease; N18.4 Chronic kidney disease, stage 4 (severe); N25.81 Secondary hyperparathyroidism of renal origin; D63.1 Anemia in chronic kidney disease; E87.5 Hyperkalemia
CPT/HCPCS: 99214

== ENCOUNTER → 2024-12-28 15:32 | Outpatient (BNVA) | payer MEDICARE, SELFPAY | PROVIDERS: PCP Family Medicine; Visit Provider Internal Medicine Nephrology | DX: E11.22 Type 2 diabetes mellitus with diabetic chronic kidney disease (principal); I12.9 Hypertensive chronic kidney disease with stage 1 through stage 4 chronic kidney disease, or unspecified chronic kidney disease; N18.4 Chronic kidney disease, stage 4 (severe); N25.81 Secondary hyperparathyroidism of renal origin; D63.1 Anemia in chronic kidney disease; E87.5 Hyperkalemia; E11.21 Type 2 diabetes mellitus with diabetic nephropathy | CPT/HCPCS: 99212 ==

== ENCOUNTER → 2025-01-20 09:58 | Outpatient (REF) | payer MEDICARE, SELFPAY ==
--- NOTE | ~2025-01-20 | NM_ITS ---
EXAMINATION: NM BONE SCAN WHOLE BODY HISTORY: INCREASED ALKALINE PHOSPHATE. TECHNIQUE: A total body bone scan was performed following intravenous administration of 34 mCi technetium 99m-MDP. Planar images were obtained in multiple projections. COMPARISON: There are no prior studies available for comparison. FINDINGS: There is mild symmetric uptake involving the bilateral knees, shoulders, and sternoclavicular joints consistent with degenerative change. There is normal symmetric uptake in the pelvis, spine, and ribs. No foci of abnormal signal intensity are identified. There is normal bilateral renal uptake. NM/NM bone scan whole body IMPRESSION: Findings consistent with mild degenerative uptake involving the knees, shoulders, and sternoclavicular joints. Otherwise unremarkable total-body bone scan. Electronically signed by: Aurelio Goodman MD 01/20/2025 02:01 PM OVIDIOT
--- OUTSIDE RECORDS SUMMARY | 2025-01-20 10:31 | XMS_ITS | Patient Health Record ---
Author Organization [facility] riana Ryan Address [address] [place] [address] Care Team Providers Care Senior Administrative Assistant Name Role Phone Raheem García MD Primary Care Provider Unavailab [place] Quach Unavailable [phone] Reason For Referral No Information Medications Medication [...] Problem Acquired hammer toe of right foot ([id number] 105) Other hammer toe(s) (acquired), right foot (M20.41) Active confirmed Problem Acquired hammer toe of left foot (7238506120304 103) Other hammer toe(s) (acquired), left foot (M20.42) Active confirmed Plan Of Treatment Pending Test Test Name Order Date [id number] NAIL, 1-5 01/09/2020 67582- Debride <25 sq cm 01/24/2020 30461 I&D ABSCESS- SIMPLE,SINGLE 020 [id number] NAIL(S) 01/09/2020 Insurance Providers Payer Name Payer Address Payer Phone Subscriber Number Group Number Insured Name Patient Relationship to Insured Coverage Start Date Coverage End Date [employer] Medicare [id number] [address] [address] [place] [address] [id number] Ryan Chauhan Self - patient is the insured Medical (General) History Medical History History ICD Code type II diabetes Kidney disease Measles Mumps Chicken pox Surgical History Surgery Date(Month/Year)
== END ==
LOC: HO.NUCMED 09:58
PROVIDERS: PCP Family Medicine; Visit Provider Family Medicine
DX: R74.8 Abnormal levels of other serum enzymes (principal)
CPT/HCPCS: 78306; A9503

== ENCOUNTER → 2025-01-20 11:01 | Outpatient (BNV) | payer MEDICARE, SELFPAY | PROVIDERS: PCP Family Medicine; Visit Provider Radiology Diagnostic Radiology | DX: M13.89 Other specified arthritis, multiple sites (principal) | CPT/HCPCS: 78306 ==

== ENCOUNTER 2025-02-02 10:49 | Outpatient (REF) | payer MEDICARE, SELFPAY ==
--- OUTSIDE RECORDS SUMMARY | 2025-02-02 11:31 | XMS_ITS ---
Author Name [facility] Organization Unknown Results Test Name/Text Value Interpretation Date Range Source Polychromasia Bld Ql Smear Occasional Normal 10/22/2024 [facility] Segmented Neutrophil 86.0 % Normal 10/22/2024 [facility] Lymphocytes/leuk NFr Bld Auto 7.0 % Normal 10/22/2024 [facility] RBC Chrm Bld Smear Occasional Normal 10/22/2024 [facility] Monocyte, Absolute 0.4 Thou/uL Normal 10/22/2024 0.2 - 1. 5 [facility] Macrocytes Bld Ql Smear Occasional Normal 10/22/2024 [facility] Monocytes/leuk NFr Bld Auto 3.0 % Normal 10/22/2024 [facility] Spherocytes Bld Ql Smear Occasional Normal 10/22/2024 [facility] Neuts Band num Bld Manual 4.0 % Normal 10/22/2024 [facility] Lymphocytes num Bld Auto 0.8 Thou/uL Below low normal 10/22/2024 1.5 - 4.5 [facility] Neutrophils num Bld Auto 10.6 Thou/uL Above high normal 10/22/2024 2 - 7.5 [facility] MCH RBC Qn Auto 29.3 pg Normal 10/22/2024 27 - [address] RDW RBC Auto-Rto 14.6 % Above high normal 10/22/2024 11.5 - 14.5 [facility] MCV RBC Auto 93.0 fL Normal 10/22/2024 80 - 100 [facility] MCHC RBC Auto-mCnc 31.5 g/dL Normal 10/22/2024 30 - 36 [facility] RBC num Bld Auto 2.87 Mil/uL Below low normal 10/22/2024 4.5 - 6.2 H[facility] nRBC/100 WBC Bld Auto-Rto 0.5 /100 WBC Above high normal 10/22/2024 0 - 0.1 H[facility] WBC num Bld Auto 11.8 Thou/uL Above high normal 10/22/2024 4 - 11 [facility] Hgb Bld-mCnc 8.4 g/dL Below low normal 10/22/2024 13 - 17.7 H[facility]CT PMV Bld Auto 11.0 fL Normal 10/22/2024 7.5 - 12.5 H[facility] Hct VFr Bld Auto 26.7 % Below low normal 10/22/2024 39 - 54 [facility] nRBC num Bld Auto 0.06 Thou/uL Above high normal 10/22/2024 0 - 0.02 [facility] Platelet num Bld Auto 243.0 Thou/uL Normal 10/22/2024 150 - 450 [facility]CT Calcium SerPl-mCnc 8.2 mg/dL Below low normal 10/22/2024 8.7 - 10.5 H[facility]CT CO2 SerPl-sCnc 23.0 mmol/L Normal 10/22/2024 20 - 31 HH CCT Sodium SerPl-sCnc 146.0 mmol/L Above high normal 10/22/2024 136 - 145 H[facility]CT Potassium SerPl-sCnc 3.8 mmol/L Normal 10/22/2024 3.4 - 4 .5 [facility]CT BUN SerPl-mCnc 107.0 mg/dL Above high normal 10/22/2024 9 - 23 [facility]CT GFR/BSA.pred SerPlBld [id number] 9.0 Below low normal 10/22/2024 59 - HHCCT Glucose SerPl-mCnc 145.0 mg/dL Above high normal 10/22/2024 74 - 106 [facility]CT Chloride SerPl-sCnc 107.0 mmol/L Normal 10/22/2024 98 - 1 07 [facility]CT BUN/Creat SerPl 18.0 Ratio Normal 10/22/2024 10 - 25 HH CCT Anion Gap Bld-sCnc 16.0 Above high normal 10/22/2024 5 - 15 [facility]CT Creat SerPl-mCnc 6.1 mg/dL Above high normal 10/22/2024 0.7 - 1.3 H[facility]CT POC Glucose 150.0 mg/dL Above high normal 10/22/2024 65 - 99 H[facility]CT POC Glucose 267.0 mg/dL Above high normal 10/22/2024 65 - 99 [facility] POC Glucose 305.0 mg/dL Above high normal 10/21/2024 65 - 99 [facility] POC Glucose 269.0 mg/dL Above high normal 10/21/2024 65 - 99 [facility] POC Glucose 186.0 mg/dL Above high normal 10/21/2024 65 - 99 [facility] POC Glucose 179.0 mg/dL Above high normal 10/21/2024 65 - 99 [facility] POC Glucose 142.0 mg/dL Above high normal 10/20/2024 65 - 99 [facility] POC Glucose 168.0 mg/dL Above high normal 10/20/2024 65 - 99 [facility] POC Glucose 144.0 mg/dL Above high normal 10/20/2024 65 - 99 H[facility]CT Phosphate SerPl-mCnc 6.1 mg/dL Above high normal 10/20/2024 2.4 - 5.1 H[facility]CT ALP SerPl-cCnc 150.0 U/L Above high normal 10/20/2024 45 - 1 28 [facility]CT Glucose SerPl-mCnc 141.0 mg/dL Above high normal 10/20/2024 74 - 106 [facility]CT BUN/Creat SerPl 15.0 Ratio Normal 10/20/2024 10 - 25 HH CCT Chloride SerPl-sCnc 108.0 mmol/L Above high normal 98 - 107 [facility]CT Creat SerPl-mCnc 6.6 mg/dL Above high normal 10/20/2024 0.7 - 1.3 H[facility]CT Potassium SerPl-sCnc 4.0 mmol/L Normal 10/20/2024 3.4 - 4 .5 H[facility]CT BUN SerPl-mCnc 100.0 mg/dL Above high normal 10/20/2024 9 - 23 H[facility]CT Bilirub SerPl-mCnc 0.2 mg/dL Below low normal 10/20/2024 0.3 - 1.2 H[facility]CT Sodium SerPl-sCnc 143.0 mmol/L Normal 10/20/2024 136 - 14 5 HHCCT ALT SerPl-cCnc 23.0 U/L Normal 10/20/2024 10 - 49 HH[facility] T Prot SerPl-mCnc 6.8 g/dL Normal 10/20/2024 5.7 - 8.[address] Anion Gap Bld-sCnc 13.0 Normal 10/20/2024 5 - 15 HHCCT Albumin SerPl-mCnc 3.5 g/dL Normal 10/20/2024 3.4 - 4.8 HHCCT CO2 SerPl-sCnc 22.0 mmol/L Normal 10/20/2024 20 - 31 HH CCT Globulin Ser Calc-mCnc 3.3 g/dL Normal 10/20/2024 1.5 - 3.9 HHCCT AST SerPl-cCnc 37.0 U/L Above high normal 10/20/2024 - 34 HHCCT GFR/BSA.pred SerPlBld [id number] 8.0 Below low normal 10/20/2024 59 - HHCCT Calcium SerPl-mCnc 7.4 mg/dL Below low normal 10/20/2024 8.7 - 10.5 HHCCT Albumin/Glob SerPl 1.0 Ratio Below low normal 10/20/2024 1.5 - 2.5 HHCCT Magnesium SerPl-mCnc 2.1 mg/dL Normal 10/20/2024 1.6 - 2. 6 H[facility]CT RBC num Bld Auto 2.64 Mil/uL Below low normal 10/20/2024 4.5 - 6.2 HHCCT PMV Bld Auto 10.8 fL Normal 10/20/2024 7.5 - 12.5 HHCCT Monocytes/leuk NFr Bld Auto 8.0 % Normal 10/20/2024 [facility]CT MCV RBC Auto 93.0 fL Normal 10/20/2024 80 - 100 H[facility]CT nRBC/100 WBC Bld Auto-Rto 0.2 /100 WBC Above high normal 10/20/2024 0 - 0.1 HHCCT nRBC num Bld Auto 0.03 Thou/uL Above high normal 10/20/2024 0 - 0.02 HHCCT MCHC RBC Auto-mCnc 32.7 g/dL Normal 10/20/2024 30 - 36 HHCCT Hgb Bld-mCnc 8.0 g/dL Below low normal 10/20/2024 13 - 17.7 HHCCT WBC num Bld Auto 12.5 Thou/uL Above high normal 10/20/2024 4 - 11 H[facility]CT RDW RBC Auto-Rto 14.8 % Above high normal 10/20/2024 11.5 - 14.5 HHCCT Basophils/leuk NFr Bld Auto 0.2 % Normal 10/20/2024 H[facility]CT Eosinophil/leuk NFr Bld Auto 0.0 % Normal 10/20/2024 HHCCT Hct VFr Bld Auto 24.5 % Below low normal 10/20/2024 39 - 54 H[facility]CT Eosinophil num Bld Auto 0.0 Thou/uL Normal 10/20/2024 0 - 0.7 HHCCT Basophils num Bld Auto 0.02 Thou/uL Normal 10/20/2024 0 - 0.2 HHCCT Imm Granulocytes/leuk NFr Bld Auto 2.1 % Normal 10/20/2024 [facility]CT Imm Granulocytes num Bld Auto 0.26 Thou/uL Above high normal 10/20/2024 0 - 0.1 HHCCT Lymphocytes/leuk NFr Bld Auto 6.6 % Normal 10/20/2024 [facility]CT Neutrophils/leuk NFr Bld Auto 83.1 % Normal 10/20/2024 [facility]CT Neutrophils num Bld Auto 10.43 Thou/uL Above high normal 10/20/2024 2 - 7.5 HHCCT Lymphocytes num Bld Auto 0.83 Thou/uL Below low normal 10/20/2024 1.5 - 4.5 HHCCT Monocytes num Bld Auto 1.0 Thou/uL Normal 10/20/2024 0.2 - 1.5 [facility]CT Platelet num Bld Auto 210.0 Thou/uL Normal 10/20/2024 150 - 450 H[facility]CT MCH RBC Qn Auto 30.3 pg Normal 10/20/2024 27 - [address] POC Glucose 146.0 mg/dL Above high normal 10/20/2024 65 - 99 H[facility]CT POC Glucose 148.0 mg/dL Above high normal 10/20/2024 65 - 99 H[facility]CT POC Glucose 200.0 mg/dL Above high normal 10/20/2024 65 - 99 HHCCT POC Glucose 209.0 mg/dL Above high normal 10/19/2024 65 - 99 H[facility]CT Liter Flow 3.0 Normal 10/19/2024 HHCCT pH, Arterial 7.36 Normal 10/19/2024 7.35 - 7.45 HH[facility] T Comment, Blood Gas VENOUS Normal 10/19/2024 [facility]CT SaO2 % BldA 79.0 % Below low normal 10/19/2024 95 - 100 H[facility]CT Base Deficit (-) 4.5 mmol/L Normal 10/19/2024 H [facility] Sample Type, POC Arterial Normal 10/19/2024 HH CCT pO2, Arterial 48.0 mmHG Critically low 10/19/2024 80 - 100 HHCCT pCO2, Arterial 36.0 mmHG Normal 10/19/2024 35 - 45 [facility] T HCO3 20.0 mmol/L Below low normal 10/19/2024 22 - 26 H[facility]CT POC Glucose 215.0 mg/dL Above high normal 10/19/2024 65 - 99 HHCCT pO2, Arterial 46.0 mmHG Critically low 10/19/2024 80 - 100 H[facility]CT pCO2, Arterial 37.0 mmHG Normal 10/19/2024 35 - 45 [facility] T Liter Flow 4.0 Normal 10/19/2024 HHCCT Sample Type, POC Arterial Normal 10/19/2024 HH CCT Base Deficit (-) 7.0 mmol/L Normal 10/19/2024 H [facility]CT HCO3 19.0 mmol/L Below low normal 10/19/2024 22 - 26 H[facility]CT SaO2 % BldA 71.0 % Below low normal 10/19/2024 95 - 100 H[facility]CT pH, Arterial 7.31 Below low normal 10/19/2024 7.35 - 7. 45 HHCCT POC Glucose 205.0 mg/dL Above high normal 10/19/2024 65 - 99 H[facility]CT Phosphate SerPl-mCnc 7.1 mg/dL Above high normal 10/19/2024 2.4 - 5.1 HHCCT Potassium SerPl-sCnc 4.2 mmol/L Normal 10/19/2024 3.4 - 4 .5 HHCCT ALT SerPl-cCnc 22.0 U/L Normal 10/19/2024 10 - 49 [facility] T Albumin/Glob SerPl 1.0 Ratio Below low normal 10/19/2024 1.5 - 2.5 HHCCT BUN SerPl-mCnc 91.0 mg/dL Above high normal 10/19/2024 9 - 2 3 HHCCT GFR/BSA.pred SerPlBld [id number] 8.0 Below low normal 10/19/2024 59 - HHCCT Creat SerPl-mCnc 6.8 mg/dL Above high normal 10/19/2024 0.7 - 1.3 HHCCT BUN/Creat SerPl 13.0 Ratio Normal 10/19/2024 10 - 25 HH CCT Sodium SerPl-sCnc 141.0 mmol/L Normal 10/19/2024 136 - 14 5 HHCCT CO2 SerPl-sCnc 18.0 mmol/L Below low normal 10/19/2024 20 - 31 HHCCT Albumin SerPl-mCnc 3.4 g/dL Normal 10/19/2024 3.4 - 4.8 HHCCT Anion Gap Bld-sCnc 14.0 Normal 10/19/2024 5 - 15 HHCCT ALP SerPl-cCnc 142.0 U/L Above high normal 10/19/2024 45 - 1 28 HHCCT AST SerPl-cCnc 35.0 U/L Above high normal 10/19/2024 - 34 [facility]CT Calcium SerPl-mCnc 7.6 mg/dL Below low normal 10/19/2024 8.7 - 10.5 HHCCT Prot SerPl-mCnc 6.7 g/dL Normal 10/19/2024 5.7 - 8.[address] Glucose SerPl-mCnc 193.0 mg/dL Above high normal 10/19/2024 74 - 106 H[facility]CT Chloride SerPl-sCnc 109.0 mmol/L Above high normal 98 - 107 HHCCT Bilirub SerPl-mCnc 0.2 mg/dL Below low normal 10/19/2024 0.3 - 1.2 HHCCT Globulin Ser Calc-mCnc 3.3 g/dL Normal 10/19/2024 1.5 - 3.9 HHCCT Magnesium SerPl-mCnc 1.9 mg/dL Normal 10/19/2024 1.6 - 2. 6 HHCCT MCH RBC Qn Auto 29.8 pg Normal 10/19/2024 27 - [address] Neutrophils/leuk NFr Bld Auto 86.8 % Normal 10/19/2024 H[facility]CT Lymphocytes num Bld Auto 0.65 Thou/uL Below low normal 10/19/2024 1.5 - 4.5 HHCCT Hct VFr Bld Auto 24.1 % Below low normal 10/19/2024 39 - 54 HHCCT WBC num Bld Auto 10.7 Thou/uL Normal 10/19/2024 4 - 11 HHCCT Imm Granulocytes num Bld Auto 0.11 Thou/uL Above high normal 10/19/2024 0 - 0.1 HHCCT Lymphocytes/leuk NFr Bld Auto 6.1 % Normal 10/19/2024 H[facility]CT RDW RBC Auto-Rto 14.8 % Above high normal 10/19/2024 11.5 - 14.5 HHCCT Eosinophil/leuk NFr Bld Auto 0.0 % Normal 10/19/2024 HHCCT Monocytes num Bld Auto 0.63 Thou/uL Normal 10/19/2024 0.2 - 1.5 HHCCT Basophils/leuk NFr Bld Auto 0.2 % Normal 10/19/2024 HHCCT Hgb Bld-mCnc 7.6 g/dL Below low normal 10/19/2024 13 - 17.7 HHCCT Imm Granulocytes/leuk NFr Bld Auto 1.0 % Normal 10/19/2024 HHCCT MCV RBC Auto 95.0 fL Normal 10/19/2024 80 - 100 HHCCT nRBC num Bld Auto 0.03 Thou/uL Above high normal 10/19/2024 0 - 0.02 HHCCT nRBC/100 WBC Bld Auto-Rto 0.3 /100 WBC Above high normal 10/19/2024 0 - 0.1 HHCCT Basophils num Bld Auto 0.02 Thou/uL Normal 10/19/2024 0 - 0.2 HHCCT Monocytes/leuk NFr Bld Auto 5.9 % Normal 10/19/2024 HHCCT PMV Bld Auto 10.7 fL Normal 10/19/2024 7.5 - 12.5 HHCCT Neutrophils num Bld Auto 9.24 Thou/uL Above high normal 10/19/2024 2 - 7.5 HHCCT RBC num Bld Auto 2.55 Mil/uL Below low normal 10/19/2024 4.5 - 6.2 HHCCT Platelet num Bld Auto 192.0 Thou/uL Normal 10/19/2024 150 - 450 HHCCT Eosinophil num Bld Auto 0.0 Thou/uL Normal 10/19/2024 0 - 0.7 HHCCT MCHC RBC Auto-mCnc 31.5 g/dL Normal 10/19/2024 30 - 36 HHCCT POC Glucose 179.0 mg/dL Above high normal 10/19/2024 65 - 99 HHCCT POC Glucose 169.0 mg/dL Above high normal 10/19/2024 65 - 99 HHCCT pH, Arterial 7.23 Critically low 10/19/2024 7.35 - 7.45 HHCCT Sample Type, POC Arterial Normal 10/19/2024 HH [facility] pO2, Arterial 72.0 mmHG Below low normal 10/19/2024 80 - 100 [facility]CT Comment REPORTED TO ALLYSSA Normal 10/19/2024 [facility] pCO2, Arterial 38.0 mmHG Normal 10/19/2024 35 - 45 [facility] T SaO2 % BldA 96.0 % Normal 10/19/2024 95 - 100 CCT Liter Flow 2.0 Normal 10/19/2024 [facility] HCO3 16.0 mmol/L Below low normal 10/19/2024 22 - 26 [facility] Comment, Blood Gas LEFT RADIAL POSITIVE COLLATERAL Normal 10/19/2024 [facility] Base Deficit (-) 10.8 mmol/L Normal 10/19/2024 [facility] COMMENT LEFT RADIAL POSITIVE COLLATERAL Normal 10/19/2024 - [facility] Lactate, POC 0.6 mmol/L Normal 10/19/2024 0.4 - 0.8 HHCCT Reduced Hemoglobin 4.5 % Normal 10/19/2024 [facility] POC SAMPLE TYPE Arterial Normal 10/19/[address] [facility] [address] Comment LEFT RADIAL POSITIVE COLLATERAL Normal 10/19/2024 [facility] Oxyhemoglobin 94.8 % Normal 10/19/2024 CCT COHgb MFr Bld 0.0 % Normal 10/19/2024 [facility] MetHgb MFr Bld 0.7 % Normal 10/19/2024 [facility] T Hemoglobin, POC 8.4 Normal 10/19/[address] [facility] [address] COMMENT LEFT RADIAL POSITIVE COLLATERAL Normal 10/19/2024 - [facility] Sodium, POC 138.0 mmol/L Normal 10/19/2024 136 - 145 [facility] T Comment LEFT RADIAL POSITIVE COLLATERAL Normal 10/19/2024 H[facility]CT Hematocrit, POC 25.0 % Below low normal 10/19/2024 40 - 5 0 H[facility]CT COMMENT LEFT RADIAL POSITIVE COLLATERAL Normal 10/19/2024 - HHCCT Glucose, POC 206.0 mg/dL Above high normal 10/19/2024 70 - 1 08 H[facility]CT Ionized Calcium, POC 4.3 mg/dL Below low normal 10/19/2024 4 .6 - 5.32 HHCCT COMMENT LEFT RADIAL POSITIVE COLLATERAL Normal 10/19/2024 - HHCCT Potassium, POC 4.3 mmol/L Normal 10/19/2024 3.5 - 5.[address] COMMENT LEFT RADIAL POSITIVE COLLATERAL Normal 10/19/2024 - HHCCT POC Glucose 212.0 mg/dL Above high normal 10/19/2024 65 - 99 HHCCT Potassium SerPl-sCnc 5.2 mmol/L Above high normal 10/19/2024 3.4 - 4.5 HHCCT Calcium SerPl-mCnc 7.8 mg/dL Below low normal 10/19/2024 8.7 - 10.5 HHCCT BUN SerPl-mCnc 86.0 mg/dL Above high normal 10/19/2024 9 - 2 3 HHCCT Chloride SerPl-sCnc 111.0 mmol/L Above high normal 98 - 107 HHCCT BUN/Creat SerPl 12.0 Ratio Normal 10/19/2024 10 - 25 HH CCT Glucose SerPl-mCnc 234.0 mg/dL Above high normal 10/19/2024 74 - 106 HHCCT CO2 SerPl-sCnc 18.0 mmol/L Below low normal 10/19/2024 20 - 31 HHCCT Creat SerPl-mCnc 7.1 mg/dL Above high normal 10/19/2024 0.7 - 1.3 HHCCT GFR/BSA.pred SerPlBld [id number] 8.0 Below low normal 10/19/2024 59 - HHCCT Sodium SerPl-sCnc 143.0 mmol/L Normal 10/19/2024 136 - 14 5 HHCCT Anion Gap Bld-sCnc 14.0 Normal 10/19/2024 5 - 15 H[facility]CT HCO3 15.0 mmol/L Below low normal 10/18/2024 22 - 26 [facility] Comment, Blood Gas LEFT RADIAL POSITIVE COLLATERAL Normal 10/18/2024 [facility] ISTAT EPAP 6.0 Normal 10/18/2024 [facility] SaO2 % BldA 98.0 % Normal 10/18/2024 95 - 100 [facility] Comment REPORTED TO RN Normal 10/18/2024 [facility] T pCO2, Arterial 37.0 mmHG Normal 10/18/2024 35 - 45 [facility] T Blood Gas Mode BiPAP Normal 10/18/2024 [facility] T ISTAT Arterial FIO2 40.0 Normal 10/18/[address] [facility] pH, Arterial 7.22 Critically low 10/18/2024 7.35 - 7.[address] [facility] Sample Type, POC Arterial Normal 10/18/2024 [facility] Base Deficit (-) 11.8 mmol/L Normal 10/18/[address] [facility] pO2, Arterial 148.0 mmHG Above high normal 10/18/2024 80 - [address] [facility] MECH RATE 24.0 Normal 10/18/2024 [facility] I[facility] INPAP 18.0 Normal 10/18/[address] [facility] S pneum Ag Ur Ql Presumptive Negative Normal 10/19/2024 - [facility] L pneumo Ag Spec Ql Presumptive Negative Normal 10/19/2024 - [facility] Prot/Creat Ur 2.96 Normal 10/19/2024 [facility] Prot Ur-mCnc 338.0 mg/dL Normal 10/19/2024 [facility] T Creat Ur-mCnc 114.0 mg/dL Normal 10/19/[address] [facility] [address] Yeast num/area UrnS HPF Absent Normal 10/19/2024 - [facility] Bacteria UrnS Ql Micro Negative Normal 10/19/2024 - [facility] RBC num/area UrnS HPF 50.0 per hpf Above high normal 10/19/2024 0 - 4 [facility] Hyaline Casts num/area UrnS LPF 1.0 per lpf Normal 10/19/2024 0 - 4 [facility] Squamous num/area UrnS HPF 2.0 per hpf Normal 10/19/2024 [facility] WBC num/area UrnS HPF 9.0 per hpf Above high normal 10/19/2024 0 - 4 [facility]CT Leukocyte esterase Ur Ql Strip Negative Normal 10/19/2024 - HHCCT Clarity Ur Clear Normal 10/19/2024 H[facility]CT Hgb Ur Ql Strip Large Abnormal 10/19/2024 - C CT Sp Gr Ur Strip 1.016 Normal 10/19/2024 1.003 - 1.03 HHCCT Nitrite Ur Ql Strip Negative Normal 10/19/2024 - CCT Color Ur Yellow Normal 10/19/2024 [facility]CT Glucose Ur Strip-mCnc Moderate Normal 10/19/2024 0 - 99 H[facility]CT Bilirub Ur Strip-mCnc Negative Normal 10/19/2024 - HHCCT Ketones Ur Strip-mCnc Negative Normal 10/19/2024 - HHCCT Prot Ur Strip-mCnc Large (300 mg/dL) Abnormal 10/19/2024 - HHCCT Urobilinogen Ur Strip-mCnc 0.2 EU/dL Normal 10/19/2024 0.2 - 1 HHCCT pH Ur Strip 5.0 Normal 10/19/2024 5 - 8 HHCCT POC Glucose 252.0 mg/dL Above high normal 10/18/2024 65 - 99 HHCCT PTH-Intact SerPl-mCnc 755.0 pg/mL Above high normal 10/18/2024 18 - 80 HHCCT Result Not Detected Normal 10/18/2024 - CCT Lactate SerPl-sCnc 1.2 mmol/L Normal 10/18/2024 0.5 - 1.9 HHCCT Comment REPORTED TO WEI HEBERT Normal 10/18/2024 HHCCT ISTAT INPAP 14.0 Normal 10/18/2024 HHCCT HCO3 14.0 mmol/L Below low normal 10/18/2024 22 - 26 HHCCT SaO2 % BldA 98.0 % Normal 10/18/2024 95 - 100 HHCCT Sample Type, POC Arterial Normal 10/18/2024 HH CCT Blood Gas Mode BiPAP Normal 10/18/2024 [facility] T pCO2, Arterial 38.0 mmHG Normal 10/18/2024 35 - 45 [facility] T pH, Arterial 7.18 Critically low 10/18/2024 7.35 - 7.45 HHCCT pO2, Arterial 134.0 mmHG Above high normal 10/18/2024 80 - 1 00 HHCCT ISTAT Arterial FIO2 40.0 Normal 10/18/2024 HHCCT Comment, Blood Gas LEFT RADIAL POSITIVE COLLATERAL Normal 10/18/2024 CCT Base Deficit (-) 13.4 mmol/L Normal 10/18/2024 CCT MECH RATE 18.0 Normal 10/18/2024 HHCCT ISTAT EPAP 5.0 Normal 10/18/2024 HHCCT B-OH-Butyr SerPl-sCnc 0.3 mmol/L Above high normal 10/18/2024 - 0.28 HHCCT Magnesium SerPl-mCnc 1.6 mg/dL Normal 10/18/2024 1.6 - 2. 6 HHCCT Phosphate SerPl-mCnc 6.6 mg/dL Above high normal 10/18/2024 2.4 - 5.1 HHCCT Albumin/Glob SerPl 1.1 Ratio Below low normal 10/18/2024 1.5 - 2.5 HHCCT Creat SerPl-mCnc 7.0 mg/dL Above high normal 10/18/2024 0.7 - 1.3 HHCCT Anion Gap Bld-sCnc 16.0 Above high normal 10/18/2024 5 - 15 HHCCT GFR/BSA.pred SerPlBld [id number] 8.0 Below low normal 10/18/2024 59 - HHCCT AST SerPl-cCnc 35.0 U/L Above high normal 10/18/2024 - 34 HHCCT ALP SerPl-cCnc 154.0 U/L Above high normal 10/18/2024 45 - 1 28 HHCCT Prot SerPl-mCnc 7.1 g/dL Normal 10/18/2024 5.7 - 8.[address] Potassium SerPl-sCnc 5.0 mmol/L Above high normal 10/18/2024 3.4 - 4.5 HHCCT Sodium SerPl-sCnc 141.0 mmol/L Normal 10/18/2024 136 - 14 5 HHCCT ALT SerPl-cCnc 23.0 U/L Normal 10/18/2024 10 - 49 [facility] T Bilirub SerPl-mCnc 0.2 mg/dL Below low normal 10/18/2024 0.3 - 1.2 HHCCT BUN SerPl-mCnc 80.0 mg/dL Above high normal 10/18/2024 9 - 2 3 HHCCT Calcium SerPl-mCnc 7.8 mg/dL Below low normal 10/18/2024 8.7 - 10.5 HHCCT Globulin Ser Calc-mCnc 3.5 g/dL Normal 10/18/2024 1.5 - 3.9 HHCCT CO2 SerPl-sCnc 18.0 mmol/L Below low normal 10/18/2024 20 - 31 HHCCT Chloride SerPl-sCnc 108.0 mmol/L Above high normal 98 - 107 HHCCT Albumin SerPl-mCnc 3.6 g/dL Normal 10/18/2024 3.4 - 4.8 HHCCT Glucose SerPl-mCnc 368.0 mg/dL Above high normal 10/18/2024 74 - 106 HHCCT BUN/Creat SerPl 11.0 Ratio Normal 10/18/2024 10 - 25 HH CCT WBC num Bld Auto 10.6 Thou/uL Normal 10/18/2024 4 - 11 HHCCT Lymphocytes num Bld Auto 0.45 Thou/uL Below low normal 10/18/2024 1.5 - 4.5 HHCCT MCH RBC Qn Auto 30.0 pg Normal 10/18/2024 27 - [address] MCHC RBC Auto-mCnc 30.9 g/dL Normal 10/18/2024 30 - 36 HHCCT Monocytes num Bld Auto 0.39 Thou/uL Normal 10/18/2024 0.2 - 1.5 HHCCT Platelet num Bld Auto 191.0 Thou/uL Normal 10/18/2024 150 - 450 HHCCT RDW RBC Auto-Rto 15.0 % Above high normal 10/18/2024 11.5 - 14.5 HHCCT MCV RBC Auto 97.0 fL Normal 10/18/2024 80 - 100 HHCCT Neutrophils/leuk NFr Bld Auto 90.5 % Normal 10/18/2024 HHCCT Basophils/leuk NFr Bld Auto 0.2 % Normal 10/18/2024 HHCCT Hct VFr Bld Auto 25.6 % Below low normal 10/18/2024 39 - 54 HHCCT Basophils num Bld Auto 0.02 Thou/uL Normal 10/18/2024 0 - 0.2 HHCCT Imm Granulocytes/leuk NFr Bld Auto 1.4 % Normal 10/18/2024 HHCCT RBC num Bld Auto 2.63 Mil/uL Below low normal 10/18/2024 4.5 - 6.2 HHCCT Monocytes/leuk NFr Bld Auto 3.7 % Normal 10/18/2024 HHCCT Eosinophil/leuk NFr Bld Auto 0.0 % Normal 10/18/2024 HHCCT Lymphocytes/leuk NFr Bld Auto 4.2 % Normal 10/18/2024 HHCCT PMV Bld Auto 11.1 fL Normal 10/18/2024 7.5 - 12.5 HHCCT Imm Granulocytes num Bld Auto 0.15 Thou/uL Above high normal 10/18/2024 0 - 0.1 HHCCT Neutrophils num Bld Auto 9.58 Thou/uL Above high normal 10/18/2024 2 - 7.5 [facility] Eosinophil num Bld Auto 0.0 Thou/uL Normal 10/18/2024 0 - 0.7 [facility] Hgb Bld-mCnc 7.9 g/dL Below low normal 10/18/2024 13 - 17.7 [facility] POC Glucose 357.0 mg/dL Above high normal 10/18/2024 65 - 99 [facility] Encounters Encounter Type Encounter Reason Primary Diagnosis Location Date Inpatient Acute respiratory failure with hypoxia Acute respiratory failure with hypoxia [facility] 10/18/2024 Care Team Organization Name Specialty Phone Email Start Date End [facility] 10/25/2024 11/18/2024 [facility] 10/18/2024
--- OUTSIDE RECORDS SUMMARY | 2025-02-02 11:31 | XMS_ITS | Patient Health Record ---
Author Organization [facility] [place] Address [address] [place] [address] Care Team Providers Care Thread Checker Name Role Phone Raheem García MD Primary Care Provider Unavailab Virginia Quach Unavailable [phone] Reason For Referral No Information Medications Medication [...] Problem Acquired hammer toe of right foot (4149930427067 105) Other hammer toe(s) (acquired), right foot (M20.41) Active confirmed Problem Acquired hammer toe of left foot (8835126569975 103) Other hammer toe(s) (acquired), left foot (M20.42) Active confirmed Plan Of Treatment Pending Test Test Name Order Date [id number] NAIL, 1-5 01/09/2020 14670- Debride <25 sq cm 01/24/2020 49164 I&D ABSCESS- SIMPLE,SINGLE 020 [id number] NAIL(S) 01/09/2020 Insurance Providers Payer Name Payer Address Payer Phone Subscriber Number Group Number Insured Name Patient Relationship to Insured Coverage Start Date Coverage End Date [employer] Medicare [id number] [address] [address] [place] [address] [phone] [id number] Ryan Chauhan Self - patient is the insured Medical (General) History Medical History History ICD Code type II diabetes Kidney disease Measles Mumps Chicken pox Surgical History Surgery Date(Month/Year)
--- OUTSIDE RECORDS SUMMARY | 2025-02-02 11:31 | XMS_ITS | Clinical Summary ---
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
--- OUTSIDE RECORDS SUMMARY | 2025-02-02 11:31 | XMS_ITS | Clinical Summary ---
Author Organization [facility] Address [address] [facility] [address] [place] [address] Phone Care Team Providers Care Computing Tutor Name Role Phone Joanna Angeles MD Primary Care Provider [phone] Allergies Active Allergy Reactions Criticality Noted Date [...] Visual Foot Exam 08/24/2020 Influenza Vaccine (#1) 2025 2, 06/18/2021, 06/04/2020, Additional history exists Pneumococcal [...] (4-6) % [facility] 3 Comment: HEMOGLOBIN A1C(%) GLUCOSE CONTROL INDEX <6% EXCELLENT 6-7% VERY GOOD 7-8% GOOD 8-10% FAIR >10% POOR Hemoglobin (Hb) A1c testing is performed by Rita Clau-quant immunoassay. Any cause of shortened erythrocyte survival will reduce exposure of erythrocytes to glucose with a consequent decrease in Hb A1c (%). Testing performed or reported by ~[facility], ~a Service of [facility], ~[address] [place] [id number]~ 03/21/2019 2:49 PM EDT us Chris Martínez MD LAB BLOOD ORDERABLES Final Resul t [facility] 3 from Last 3 Months or Most Recently Relevant to Health Maintenance Insurance UHC Medicare UHC Medicare Care Teams Computing Tutor Relationship Specialty Start Date End Date Joanna Angeles MD [address] [facility] [address] [place] [id number] PCP - General Family Medicine 02/17/23
--- OUTSIDE RECORDS SUMMARY | 2025-02-02 11:32 | XMS_ITS | Data Portability ---
Author Organization [facility], Main Office Address [address] [facility] [address] [place] [id number] Care Team Providers Care Cash Grain Farmer Name Role Phone [facility] Re[facility] JESUS RUBIO Phys. Med. 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 His recent fever and upper respiratory symptoms [...] a kidney stone remains a likely consideration. [email or web address] Not available 11/14/2024 10:39:05 11/23/2024 11/23/2024 On examination today, the patient demonstrates signs consistent with muscle spasm in the lower thoracic and lumbar region, along with tight hip flexors. I have recommended initiating physical therapy and continuing follow-up with his marketing analyst for further musculoskeletal management. Given his chronic [...] He should also follow up with his marketing analyst. I provided him with a printed copy [...] the CT abdomen/pelvis to provide to his marketing analyst, so they can confirm that renal pathology [...] His most critical follow-up remains with his equipment washer, given his renal status. [email or web address] Not available 11/23/2024 19:18:46 01/23/2025 01/23/2025 Patient is at lo w risk for cardiopulmonary complications with planned procedure based on comorbidities, good exertional tolerance and overall procedure risk. Patient advised to avoid aspirin for 14 days and NSAIDS for 7 days prior. May proceed to scheduled surgery as planned. [email or web address] Not available 01/23/2025 13:01:16 Plan of Treatment Reminders Order Date Submit Date Provider Last Modified By Organization Details Last Modified Time Details Appointments None record ed. Lab BMP, serum or plasma 2024 025 [facility], [address] [place] [address], [address], 5 09:34:50 urinal ysis comple te, reflex cultur e 2024 025 [facility], [address] [place] [address], [address], 5 09:34:50 Hepati tis C IgG Ab, qual, serum 2024 025 [facility], [address] [place] [address], [address], 5 10:36:27 HBsAg (hepat itis B surfac e Ag), EIA, serum 2024 025 [facility], [address] [place] [address], [address], 5 10:36:27 HIV 1 + 2, meanin gful use set 2024 025 [facility], [address] [place] [address], [address], 5 10:36:27 trepon omer pallid um IgG + IgM Ab, QL, IA, serum 2024 025 [facility], [address] [place] [address], [address], 5 13:14:54 CT + NG RNA, PCR, unspec ified specim en 2024 025 [facility], [address] [place] [address], [place], [address], 5 13:14:54 hepati tis B core IgM Ab, qual, serum or plasma 2024 025 [facility], [address] [place] [address], [place], [address], 5 13:14:54 urinal ysis comple te, reflex cultur e 2024 025 [email or web address], [address] [place] [address], [address], 5 10:51:56 CBC w/ auto diff 2024 025 [facility], [address] [place] [address], [address], 5 10:51:56 CMP, serum or plasma 2024 025 [facility], [address] [place] [address], [address], 5 11:41:53 procal citoni n, serum 2024 025 [email or web address] imagine [facility], [address] [place] [address], [address], 5 10:51:56 cultur e, blood 2024 025 [facility], [address] [place] [address], [address], 5 12:08:31 pro BNP (pro B-type natriu retic peptid e), serum or plasma 2024 025 [email or web address] imagine [facility], [address] [facility], [place], [address], 10:51:56 uric acid, serum or plasma 2024 025 [facility], [address], [place], [address], 16:05:42 alkali ne phosph atase, serum or [...] or plasma 2024 025 [facility], [address], [address], [place], [address], 16:05:35 TSH, ultra- sensit erik, serum 2024 025 [facility] (Centralized Electronic Ordering - All Locations), Patient Can Go To The Location Of Their Choice, 16:05:41 magnes ium, serum or plasma 2024 025 [facility], [address], [address], [place], [address], 16:05:44 potass ium, serum or plasma 2024 025 [facility] (Centralized Electronic Ordering - All Locations), Patient Can Go To The Location Of Their Choice, 16:05:43 lipid panel, serum 2024 025 [email or web address] [facility], [address], [address], [place], [address], 15:30:39 albumi n/crea tinine , mass ratio, urine 2024 [facility] [facility] Patient Can Go To The Location Of Their Choice, 16:05:37 ferrit in, serum or plasma 2024 [facility], [address], [address], [place], [address], 16:05:44 retic count, blood 2024 025 [facility], [address], [address], [place], [address], 16:05:45 CBC w/ auto diff 2024 025 [facility], [address], [address], [place], [address], 5 16:05:34 iron + total iron-b inding capaci ty (TIBC) , serum 2024 025 [facility], [address], [place], [address], 16:05:36 transf johnathan recept or, solubl e, quant, serum 2024 025 [facility]), Patient Can Go To The Location Of Their Choice, 16:05:40 cobala min and folate panel, serum 2024 025 [facility]), Patient Can Go To The Location Of Their Choice, 16:05:38 vitami n D, 25-hyd apolinar, total, serum 2024 025 [facility] [facility] (Centralized Electronic Ordering - All Locations), Patient Can Go To The Location Of Their Choice, [address] 16:05:39 1,25-d ihydro xyvita min D, QN, serum or plasma 2024 025 [place] [facility] (Centralized Electronic Ordering - All Locations), Patient Can Go To The Location Of Their Choice, [address] 16:05:39 Referral physic al therap ist referr al 2024 025 [email or web address] Not available 14:35:36 Procedures None record ed. Surgeries None record ed. Imaging CT, abdome n + pelvis , w/o contra st 2024 025 [facility] (Imaging), [address] [place] [address], [address], 5 15:57:36 XR, chest, 2 view 2024 025 [facility] (Imaging), [address] [place] [address], [address], 5 11:26:23 Medication Orders cefpod oxime [address] [facility] ([place] [place]Pharmacy #[id number], [address] [place], [address], 5 08:32:43 Zithro max Z-Jase 250 mg tablet 2024 025 [email or web address] [facility]/Pharmacy #[id number], [address] [place], [address], 5 14:04:57 amlodi pine 10 mg tablet [address] [facility] ([place] [place]Pharmacy #[id number], [phone] [place], [address], 5 17:21:09 Patient TargetsNo targets recorded. Patient Instructions Encounter Date Encounter Id Patient Instructions Last Modified By Organization Details Last Modified Time 08/22/2024 [id number] gout: care instructions [email or web address] Not available 08/22/2024 17:17:19 advance care planning: care instructions [email or web address] Not available 08/22/2024 17:17:17 insomnia: care instructions [email or web address] Not available 08/22/2024 17:17:18 hyperkalemia: care instructions [email or web address] Not available 08/22/2024 17:17:18 preventing falls : care instructions [email or web address] Not available 08/22/2024 17:17:18 well visit, over 65: care instructions [email or web address] Not available 08/22/2024 17:17:18 medicare preventive services guide (male 74 rs and under) [email or web address] Not available 08/22/2024 17:17:18 medicines to avoid with kidney disease: care instructions [email or web address] Not available 08/22/2024 17:17:19 11/02/2024 [id number] At [facility] follow up visit, all current and discharge medications (OTC, herbal therapies, supplements) reviewed and reconciled with patient and or caregiver, including potential side effects, drug interactions, instructions, and the consequences of not taking medication. Reviewed potential barriers to medication adherence, such as side effects from medication or cost of medication. [email or web address] Not available 11/02/2024 10:50:48 11/14/2024 [id number] learning about fever [email or web address] Not available 11/14/2024 10:32:51 [facility], all current and discharge medications (OTC, herbal therapies, supplements) reviewed and reconciled with patient and or caregiver, including potential side effects, drug interactions, instructions, and the consequences of not taking medication. Reviewed potential barriers to medication adherence, such as side effects from medication or cost of medication. [email or web address] Not available 11/14/2024 08:34:10 11/23/2024 [id number] medicines to avoid with kidney disease: care [...] w/ auto diff sodium 142 Not Available [facility] (Medical Records) [address] [place], [address], 11/15/2024 10:25:56 11/16/19 25 11/18/2024 CBC w/ auto diff potassium 4.9 Not Available [facility] (Medical Records) [address] [place], [address], 11/15/2024 10:25:56 11/16/19 25 11/18/2024 CBC w/ auto diff BUN 38 Not Available [facility] (Medical Records) [address] [place], [address], 11/15/2024 10:25:56 11/16/19 25 11/18/2024 CBC w/ auto diff creatinine 4.19 Not Available [facility] (Medical Records) [address] [place], [address], 11/15/2024 10:25:56 11/16/19 25 11/18/2024 CBC w/ auto diff glucose 144 Not Available [facility] (Medical Records) [address] [place], [address], 11/15/2024 10:25:56 11/16/19 25 11/18/2024 CBC w/ auto diff WBC 5.2 Not Available [facility] (Medical Records) [address] [place], [address], 11/15/2024 10:25:56 11/16/19 25 11/18/2024 CBC w/ auto diff RBC 3.50 Not Available [facility] (Medical Records) [address] [place], [address], 11/15/2024 10:25:56 11/16/19 25 11/18/2024 CBC w/ auto diff HGB 10.3 Not Available [facility] (Medical Records) [address] [place], [address], 11/15/2024 10:25:56 11/16/19 25 11/18/2024 CBC w/ auto diff HCT 33.1 Not Available [facility] (Medical Records) [address] [place], [address], 11/15/2024 10:25:56 11/16/19 25 11/18/2024 CBC w/ auto diff plt 195 Not Available [facility] (Medical Records) [address] [place], [address], 11/15/2024 10:25:56 11/16/19 25 11/18/2024 urina lysis , compl ete sodium 142 Not Available [facility] (Medical Records) [address] [place], [address], 11/15/2024 10:25:01 11/16/19 25 11/18/2024 urina lysis , compl ete potassium 4.9 Not Available [facility] (Medical Records) [address] [place], [address], 11/15/2024 10:25:01 11/16/19 25 11/18/2024 urina lysis , compl ete glucose 144 Not Available [facility] (Medical Records) [address] [place], [address], 11/15/2024 10:25:01 11/16/19 25 11/18/2024 urina lysis , compl ete BUN 38 Not Available [facility] (Medical Records) [address] [place], [address], 11/15/2024 10:25:01 11/16/19 25 11/18/2024 urina lysis , compl ete creatinine 4.19 Not Available [facility] (Medical Records) [address] [place], [address], 11/15/2024 10:25:01 11/16/19 25 11/18/2024 urina lysis , compl ete WBC 5.2 Not Available [facility] (Medical Records) [address] [place], [address], 11/15/2024 10:25:01 11/16/19 25 11/18/2024 urina lysis , compl ete RBC 3.50 Not Available [facility] (Medical Records) [address] [place], [address], 11/15/2024 10:25:01 11/16/19 25 11/18/2024 urina lysis , compl ete HGB 10.3 Not Available [facility] (Medical Records) [address] [place], [address], 11/15/2024 10:25:01 11/16/19 25 11/18/2024 urina lysis , compl ete HCT 33.1 Not Available [facility] (Medical Records) [address] [place], [address], 11/15/2024 10:25:01 11/16/19 25 11/18/2024 urina lysis , compl ete plt 195 Not Available [facility] (Medical Records) [address] [place], [address], 11/15/2024 10:25:01 11/16/19 25 11/18/2024 CBC w/ auto diff sodium 142 Not Available [facility] (Medical Records) [address] [place], [address], 11/15/2024 10:25:01 11/16/19 25 11/18/2024 CBC w/ auto diff potassium 4.9 Not Available [facility] (Medical Records) [address] [place], [address], 11/15/2024 10:25:01 11/16/19 25 11/18/2024 CBC w/ auto diff glucose 144 Not Available [facility] (Medical Records) [address] [place], [address], 11/15/2024 10:25:01 11/16/19 25 11/18/2024 CBC w/ auto diff BUN 38 Not Available [facility] (Medical Records) [address] [place], [address], 11/15/2024 10:25:01 11/16/19 25 11/18/2024 CBC w/ auto diff creatinine 4.19 Not Available [facility] (Medical Records) [address] [place], [address], 11/15/2024 10:25:01 11/16/19 25 11/18/2024 CBC w/ auto diff WBC 5.2 Not Available [facility] (Medical Records) [address] [place], [address], 11/15/2024 10:25:01 11/16/19 25 11/18/2024 CBC w/ auto diff RBC 3.50 Not Available [facility] (Medical Records) [address] [place], [address], 11/15/2024 10:25:01 11/16/19 25 11/18/2024 CBC w/ auto diff HGB 10.3 Not Available [facility] (Medical Records) [address] [place], [address], 11/15/2024 10:25:01 11/16/19 25 11/18/2024 CBC w/ auto diff HCT 33.1 Not Available [facility] (Medical Records) [address] [place], [address], 11/15/2024 10:25:01 11/16/19 25 11/18/2024 CBC w/ auto diff plt 195 Not Available [facility] (Medical Records) [address] [place], [address], 11/15/2024 10:25:01 08/03/19 25 08/04/2024 COMP. METAB OLIC PANEL (14) glucose 180 mg/dL 70-99 above high normal Not Available [facility] ([facility]) [address] [place], [address], 08/04/2024 08:08:28 08/03/19 25 08/04/2024 COMP. METAB OLIC PANEL (14) BUN 40 mg/dL 8-27 above high normal Not Available [facility] ([facility]) [address] [place], [address], 08/04/2024 08:08:28 08/03/19 25 08/04/2024 COMP. METAB OLIC PANEL (14) creatinine 3.46 mg/dL 0.76-1 .27 above high normal Not Available [facility] ([facility]) [address] [place], [address], 08/04/2024 08:08:28 08/03/19 25 08/04/2024 COMP. METAB OLIC PANEL (14) eGFR 18 mL/mi n/1.7 3 >59 below low normal Not Available [facility] ([facility]) [address] [place], [address], 08/04/2024 08:08:28 08/03/19 25 08/04/2024 COMP. METAB OLIC PANEL (14) BUN/creatini ne ratio 12 10-24 normal Not Available [facility] ([facility]) [address] [place], [address], 08/04/2024 08:08:28 08/03/19 25 08/04/2024 COMP. METAB OLIC PANEL (14) sodium 145 mmol/ L 134-14 4 above high normal Not Available [facility] ([facility]) [address] [place], [address], 08/04/2024 08:08:28 08/03/19 25 08/04/2024 COMP. METAB OLIC PANEL (14) potassium 5.4 mmol/ L 3.5-5. 2 above high normal Not Available [facility] ([facility]) [address] [place], [address], 08/04/2024 08:08:28 08/03/19 25 08/04/2024 COMP. METAB OLIC PANEL (14) chloride 111 mmol/ L 96-106 above high normal Not Available [facility] ([facility]) [address] [place], [address], 08/04/2024 08:08:28 08/03/19 25 08/04/2024 COMP. METAB OLIC PANEL (14) carbon dioxide, total 19 mmol/ L 20-29 below low normal Not Available [facility] ([facility]) [address] [place], [address], 08/04/2024 08:08:28 08/03/19 25 08/04/2024 COMP. METAB OLIC PANEL (14) calcium 8.1 mg/dL 8.6-10 .2 below low normal Not Available [facility] ([facility]) [address] [place], [address], 08/04/2024 08:08:28 08/03/19 25 08/04/2024 COMP. METAB OLIC PANEL (14) protein, total 6.3 g/dL 6.0-8. 5 normal Not Available [facility] ([facility]) [address] [place], [address], 08/04/2024 08:08:28 08/03/19 25 08/04/2024 COMP. METAB OLIC PANEL (14) albumin 3.3 g/dL 3.8-4. 8 below low normal Not Available [facility] ([facility]) [address] [place], [address], 08/04/2024 08:08:28 08/03/19 25 08/04/2024 COMP. METAB OLIC PANEL (14) globulin, total 3.0 g/dL 1.5-4. 5 Not Available [facility] ([facility]) [address] [place], [address], 08/04/2024 08:08:28 08/03/19 25 08/04/2024 COMP. METAB OLIC PANEL (14) bilirubin, total <0.2 mg/dL 0.0-1. 2 Not Available [facility] ([facility]) [address] [place], [address], 08/04/2024 08:08:28 08/03/19 25 08/04/2024 COMP. METAB OLIC PANEL (14) alkaline phosphatase 182 IU/L 44-121 above high normal Not Available [facility] ([facility]) [address] [place], [address], 08/04/2024 08:08:28 08/03/19 25 08/04/2024 COMP. METAB OLIC PANEL (14) AST (SGOT) 20 IU/L 0-40 normal Not Available [facility] ([facility]) [address] [place], [address], 08/04/2024 08:08:28 08/03/19 25 08/04/2024 COMP. METAB OLIC PANEL (14) ALT (SGPT) 16 IU/L 0-44 normal Not Available [facility] ([facility]) [address] [place], [address], 08/04/2024 08:08:28 08/03/19 25 08/04/2024 UA/M W/RFL X CULTU RE, ROUTI NE specific gravity 1.018 1.005- 1.030 normal Not Available [facility] ([facility]) [address] [place], [address], 08/04/2024 08:08:29 08/03/19 25 08/04/2024 UA/M W/RFL X CULTU RE, ROUTI NE pH 6.5 5.0-7. 5 normal Not Available [facility] ([facility]) [address] [place], [address], 08/04/2024 08:08:29 08/03/19 25 08/04/2024 UA/M W/RFL X CULTU RE, ROUTI NE urine-color Yellow yellow Not Available [facility] ([facility]) [address] [place], [address], 08/04/2024 08:08:29 08/03/19 25 08/04/2024 UA/M W/RFL X CULTU RE, ROUTI NE appearance Clear clear Not Available [facility] ([facility]) [address] [place], [address], 08/04/2024 08:08:29 08/03/19 25 08/04/2024 UA/M W/RFL X CULTU RE, ROUTI NE WBC esterase Negati ve negati ve Not Available [facility] ([facility]) [address] [place], [address], 08/04/2024 08:08:29 08/03/19 25 08/04/2024 UA/M W/RFL X CULTU RE, ROUTI NE protein 4+ negati ve/tra ce abnormal Not Available [facility] ([facility]) [address] [place], [address], 08/04/2024 08:08:29 08/03/19 25 08/04/2024 UA/M W/RFL X CULTU RE, ROUTI NE glucose 2+ negati ve abnormal Not Available [facility] ([facility]) [address] [place], [address], 08/04/2024 08:08:29 08/03/19 25 08/04/2024 UA/M W/RFL X CULTU RE, ROUTI NE ketones Negati ve negati ve Not Available [facility] ([facility]) [address] [place], [address], 08/04/2024 08:08:29 08/03/19 25 08/04/2024 UA/M W/RFL X CULTU RE, ROUTI NE occult blood Trace negati ve abnormal Not Available [facility] ([facility]) [address] [facility], [place], [address], 08/04/2024 08:08:29 08/03/19 25 08/04/2024 UA/M W/RFL X CULTU RE, ROUTI NE bilirubin Negati ve negati ve Not Available [facility] ([facility]) [address] [place], [address], 08/04/2024 08:08:29 08/03/19 25 08/04/2024 UA/M W/RFL X CULTU RE, ROUTI NE urobilinogen ,semi-qn 0.2 mg/dL 0.2-1. 0 normal Not Available [facility] ([facility]) [address] [place], [address], 08/04/2024 08:08:29 08/03/19 25 08/04/2024 UA/M W/RFL X CULTU RE, ROUTI NE nitrite, urine Negati ve negati ve Not Available [facility] ([facility]) [address] [place], [address], 08/04/2024 08:08:29 08/03/19 25 08/04/2024 UA/M W/RFL X CULTU RE, ROUTI NE microscopic examination See below: Micro scopi c was indic ated and was perfo rmed. Not Available [facility] ([facility]) [address] [place], [address], 08/04/2024 08:08:29 08/03/19 25 08/04/2024 UA/M W/RFL X CULTU RE, ROUTI NE WBC 0-5 /hpf 0 - 5 Not Available [facility] ([facility]) [address] [facility], [place], [address], 08/04/2024 08:08:29 08/03/19 25 08/04/2024 UA/M W/RFL X CULTU RE, ROUTI NE RBC None seen /hpf 0 - 2 Not Available [facility] ([facility]) [address], [place], [address], 08/04/2024 08:08:29 08/03/19 25 08/04/2024 UA/M W/RFL X CULTU RE, ROUTI NE epithelial cells (non renal) None seen /hpf 0 - 10 Not Available [facility] ([facility]) [address] [facility], [place], [address], 08/04/2024 08:08:29 08/03/19 25 08/04/2024 UA/M W/RFL X CULTU RE, ROUTI NE epithelial cells (renal) CARE REP Not Available [facility] ([facility]) [address] [facility], [place], [address], 08/04/2024 08:08:29 08/03/19 25 08/04/2024 UA/M W/RFL X CULTU RE, ROUTI NE casts None seen /lpf none seen Not Available [facility] ([facility]) [address] [facility], [place], [address], 08/04/2024 08:08:29 08/03/19 25 08/04/2024 UA/M W/RFL X CULTU RE, ROUTI NE cast type CARE REP Not Available [facility] ([facility]) [address] [facility], [place], [address], 08/04/2024 08:08:29 08/03/19 25 08/04/2024 UA/M W/RFL X CULTU RE, ROUTI NE crystals CARE REP Not Available [facility] ([facility]) [address] [facility], [place], [address], 08/04/2024 08:08:29 08/03/19 25 08/04/2024 UA/M W/RFL X CULTU RE, ROUTI NE crystal type CARE REP Not Available [facility] ([facility]) [address] [facility], [place], [address], 08/04/2024 08:08:29 08/03/19 25 08/04/2024 UA/M W/RFL X CULTU RE, ROUTI NE mucus threads CARE REP Not Available [facility] ([facility]) [address] [facility], [place], [address], 08/04/2024 08:08:29 08/03/19 25 08/04/2024 UA/M W/RFL X CULTU RE, ROUTI NE bacteria None seen none seen/f ew Not Available [facility] ([facility]) [address] [facility], [place], [address], 08/04/2024 08:08:29 08/03/19 25 08/04/2024 UA/M W/RFL X CULTU RE, ROUTI NE yeast CARE REP Not Available [facility] ([facility]) [address] [facility], [place], [address], 08/04/2024 08:08:29 08/03/19 25 08/04/2024 UA/M W/RFL X CULTU RE, ROUTI NE trichomonas CARE REP Not Available [facility] ([facility]) [address] [facility], [place], [address], 08/04/2024 08:08:29 08/03/19 25 08/04/2024 UA/M W/RFL X CULTU RE, ROUTI NE comment CARE REP Not Available [facility] ([facility]) [address] [facility], [place], [address], 08/04/2024 08:08:29 08/03/19 25 08/04/2024 UA/M W/RFL X CULTU RE, ROUTI NE microscopic examination CARE REP Not Available [facility] ([facility]) [address] [place], [address], 08/04/2024 08:08:29 08/03/1908/04/2024 UA/M W/RFL X CULTU RE, ROUTI NE urinalysis reflex Commen t This speci men will not refle x to a Urine Cultu re. Not Available [facility] ([facility]) [address] [facility], [place], [address], 08/04/2024 08:08:29 08/03/19 25 08/04/2024 B-TYP E NATRI URETI C PEPTI DE B-type natriuretic peptide 145.8 pg/mL 0.0-10 0.0 above high normal Sieme ns [facility] metho dolog y Not Available [facility] ([facility]) [address] [facility], [place], [address], 08/04/2024 08:08:30 09/08/19 25 09/08/2024 CBC WITH DIFFE RENTI AL/PL ATELE T WBC 7.8 x10e3 /uL 3.4-10 .8 normal Not Available [facility] ([facility]) [address] [place], [address], 09/11/2024 16:05:34 09/08/19 25 09/08/2024 CBC WITH DIFFE RENTI AL/PL ATELE T RBC 3.50 x10e6 /uL 4.14-5 .80 below low normal Not Available [facility] ([facility] [facility]) [address] [place], [address], 09/11/2024 16:05:34 09/08/19 25 09/08/2024 CBC WITH DIFFE RENTI AL/PL ATELE T hemoglobin 11.1 g/dL 13.0-1 7.7 below low normal Not Available [facility] ([facility]) [address] [place], [address], 09/11/2024 16:05:34 09/08/19 25 09/08/2024 CBC WITH DIFFE RENTI AL/PL ATELE T hematocrit 33.3 % 37.5-5 1.0 below low normal Not Available [facility] ([facility]) [address] [place], [address], 09/11/2024 16:05:34 09/08/19 25 09/08/2024 CBC WITH DIFFE RENTI AL/PL ATELE T MCV 95 fL 79-97 normal Not Available [facility] ([facility]) [address] [place], [address], 09/11/2024 16:05:34 09/08/19 25 09/08/2024 CBC WITH DIFFE RENTI AL/PL ATELE T MCH 31.7 pg 26.6-3 3.0 normal Not Available [facility] ([facility]) [address] [place], [address], 09/11/2024 16:05:34 09/08/19 25 09/08/2024 CBC WITH DIFFE RENTI AL/PL ATELE T MCHC 33.3 g/dL 31.5-3 5.7 normal Not Available [facility] ([facility]) [address] [place], [address], 09/11/2024 16:05:34 09/08/19 25 09/08/2024 CBC WITH DIFFE RENTI AL/PL ATELE T RDW 14.0 % 11.6-1 5.4 Not Available [facility] ([facility]) [address] [place], [address], 09/11/2024 16:05:34 09/08/19 25 09/08/2024 CBC WITH DIFFE RENTI AL/PL ATELE T platelets 233 x10e3 /uL 150-45 0 normal Not Available [facility] ([facility]) [address] [place], [address], 09/11/2024 16:05:34 09/08/19 25 09/08/2024 CBC WITH DIFFE RENTI AL/PL ATELE T neutrophils 68 % not estab. normal Not Available [facility] ([facility]) [address] [facility], [place], [address], 09/11/2024 16:05:34 09/08/19 25 09/08/2024 CBC WITH DIFFE RENTI AL/PL ATELE T lymphs 18 % not estab. normal Not Available [facility] ([facility]) [address] [facility], [place], [address], 09/11/2024 16:05:34 09/08/19 25 09/08/2024 CBC WITH DIFFE RENTI AL/PL ATELE T monocytes 9 % not estab. normal Not Available [facility] ([facility]) [address] [facility], [place], [address], 09/11/2024 16:05:34 09/08/19 25 09/08/2024 CBC WITH DIFFE RENTI AL/PL ATELE T eos 4 % not estab. normal Not Available [facility] ([facility]) [address] [facility], [place], [address], 09/11/2024 16:05:34 09/08/19 25 09/08/2024 CBC WITH DIFFE RENTI AL/PL ATELE T basos 0 % not estab. normal Not Available [facility] ([facility]) [address] [facility], [place], [address], 09/11/2024 16:05:34 09/08/19 25 09/08/2024 CBC WITH DIFFE RENTI AL/PL ATELE T immature cells CARE REP Not Available [facility] ([facility]) [address] [facility], [place], [address], 09/11/2024 16:05:34 09/08/19 25 09/08/2024 CBC WITH DIFFE RENTI AL/PL ATELE T neutrophils (absolute) 5.3 x10e3 /uL 1.4-7. 0 normal Not Available [facility] ([facility]) [address] [facility], [place], [address], 09/11/2024 16:05:34 09/08/19 25 09/08/2024 CBC WITH DIFFE RENTI AL/PL ATELE T lymphs (absolute) 1.4 x10e3 /uL 0.7-3. 1 normal Not Available [facility] ([facility]) [address] [facility], [place], [address], 09/11/2024 16:05:34 09/08/19 25 09/08/2024 CBC WITH DIFFE RENTI AL/PL ATELE T monocytes(ab solute) 0.7 x10e3 /uL 0.1-0. 9 normal Not Available [facility] ([facility]) [address] [facility], [place], [address], 09/11/2024 16:05:34 09/08/19 25 09/08/2024 CBC WITH DIFFE RENTI AL/PL ATELE T eos (absolute) 0.3 x10e3 /uL 0.0-0. 4 normal Not Available [facility] ([facility]) [address] [facility], [place], [address], 09/11/2024 16:05:34 09/08/19 25 09/08/2024 CBC WITH DIFFE RENTI AL/PL ATELE T baso (absolute) 0.0 x10e3 /uL 0.0-0. 2 normal Not Available [facility] ([facility]) [address] [facility], [place], [address], 09/11/2024 16:05:34 09/08/19 25 09/08/2024 CBC WITH DIFFE RENTI AL/PL ATELE T immature granulocytes 1 % not estab. Not Available [facility] ([facility]) [address] [facility], [place], [address], 09/11/2024 16:05:34 09/08/19 25 09/08/2024 CBC WITH DIFFE RENTI AL/PL ATELE T immature grans (abs) 0.1 x10e3 /uL 0.0-0. 1 Not Available [facility] ([facility]) [address] [facility], [place], [address], 09/11/2024 16:05:34 09/08/19 25 09/08/2024 CBC WITH DIFFE RENTI AL/PL ATELE T NRBC CARE REP Not Available [facility] ([facility]) [address] [facility], [place], [address], 09/11/2024 16:05:34 09/08/19 25 09/08/2024 CBC WITH DIFFE RENTI AL/PL ATELE T hematology comments: CARE REP Not Available [facility] ([facility]) [address] [facility], [place], [address], 09/11/2024 16:05:34 09/08/19 25 09/08/2024 COMP. METAB OLIC PANEL (14) glucose 197 mg/dL 70-99 above high normal Not Available [facility] ([facility]) [address] [place], [address], 09/11/2024 16:05:35 09/08/19 25 09/08/2024 COMP. METAB OLIC PANEL (14) BUN 50 mg/dL 8-27 above high normal Not Available [facility] ([facility]) [address] [facility], [place], [address], 09/11/2024 16:05:35 09/08/19 25 09/08/2024 COMP. METAB OLIC PANEL (14) creatinine 3.72 mg/dL 0.76-1 .27 above high normal Not Available [facility] ([facility]) [address] [place], [address], 09/11/2024 16:05:35 09/08/19 25 09/08/2024 COMP. METAB OLIC PANEL (14) eGFR 17 mL/mi n/1.7 3 >59 below low normal Not Available [facility] ([facility]) [address] [place], [address], 09/11/2024 16:05:35 09/08/19 25 09/08/2024 COMP. METAB OLIC PANEL (14) BUN/creatini ne ratio 13 10-24 normal Not Available [facility] ([facility]) [address] [place], [address], 09/11/2024 16:05:35 09/08/19 25 09/08/2024 COMP. METAB OLIC PANEL (14) sodium 140 mmol/ L 134-14 4 normal Not Available [facility] ([facility]) [address] [place], [address], 09/11/2024 16:05:35 09/08/19 25 09/08/2024 COMP. METAB OLIC PANEL (14) potassium 5.6 mmol/ L 3.5-5. 2 above high normal Not Available [facility] ([facility]) [address] [place], [address], 09/11/2024 16:05:35 09/08/19 25 09/08/2024 COMP. METAB OLIC PANEL (14) chloride 109 mmol/ L 96-106 above high normal Not Available [facility] ([facility]) [address] [place], [address], 09/11/2024 16:05:35 09/08/19 25 09/08/2024 COMP. METAB OLIC PANEL (14) carbon dioxide, total 16 mmol/ L 20-29 below low normal Not Available [facility] ([facility]) [address] [place], [address], 09/11/2024 16:05:35 09/08/19 25 09/08/2024 COMP. METAB OLIC PANEL (14) calcium 8.6 mg/dL 8.6-10 .2 normal Not Available [facility] ([facility]) [address] [place], [address], 09/11/2024 16:05:35 09/08/19 25 09/08/2024 COMP. METAB OLIC PANEL (14) protein, total 6.9 g/dL 6.0-8. 5 normal Not Available [facility] ([facility]) [address] [place], [address], 09/11/2024 16:05:35 09/08/19 25 09/08/2024 COMP. METAB OLIC PANEL (14) albumin 3.8 g/dL 3.8-4. 8 normal Not Available [facility] ([facility]) [address] [place], [address], 09/11/2024 16:05:35 09/08/19 25 09/08/2024 COMP. METAB OLIC PANEL (14) globulin, total 3.1 g/dL 1.5-4. 5 Not Available [facility] ([facility]) [address] [place], [address], 09/11/2024 16:05:35 09/08/19 25 09/08/2024 COMP. METAB OLIC PANEL (14) bilirubin, total 0.3 mg/dL 0.0-1. 2 normal Not Available [facility] ([facility]) [address] [place], [address], 09/11/2024 16:05:35 09/08/19 25 09/08/2024 COMP. METAB OLIC PANEL (14) alkaline phosphatase 225 IU/L 44-121 above high normal Not Available [facility] ([facility]) [address] [place], [address], 09/11/2024 16:05:35 09/08/19 25 09/08/2024 COMP. METAB OLIC PANEL (14) AST (SGOT) 17 IU/L 0-40 normal Not Available [facility] ([facility]) [address] [place], [address], 09/11/2024 16:05:35 09/08/19 25 09/08/2024 COMP. METAB OLIC PANEL (14) ALT (SGPT) 18 IU/L 0-44 normal Not Available [facility] ([facility]) [address] [place], [address], 09/11/2024 16:05:35 09/08/19 25 09/09/2024 COMP. METAB OLIC PANEL (14) hemoglobin A1C 7.5 % 4.8-5. 6 above high normal Predi abete s: 5.7 - 6.4 Diabe rocky: >6.4 Glyce mary contr ol for adult s with diabe rocky: <7.0 Not Available [facility] ([facility]) [address] [place], [address], 09/11/2024 16:05:35 09/08/19 25 09/08/2024 LIPID PANEL cholesterol, total 187 mg/dL 100-19 9 normal Not Available [facility] ([facility]) [address] [place], [address], 09/11/2024 16:05:35 09/08/19 25 09/08/2024 LIPID PANEL triglyceride s 121 mg/dL 0-149 normal Not Available [facility] ([facility]) [address] [place], [address], 09/11/2024 16:05:35 09/08/19 25 09/08/2024 LIPID PANEL HDL cholesterol 37 mg/dL >39 below low normal Not Available [facility] ([facility]) [address] [place], [address], 09/11/2024 16:05:35 09/08/19 25 09/08/2024 LIPID PANEL VLDL cholesterol leisa 22 mg/dL 5-40 Not Available [facility] ([facility]) [address] [place], [address], 09/11/2024 16:05:35 09/08/19 25 09/08/2024 LIPID PANEL LDL chol calc (rust) 128 mg/dL 0-99 above high normal Not Available [facility] ([facility]) [address] [facility], [place], [address], 09/11/2024 16:05:35 09/08/19 25 09/08/2024 LIPID PANEL LDL calc comment: CARE REP Not Available [facility] ([facility]) [address] [place], [address], 09/11/2024 16:05:35 09/08/19 25 09/09/2024 IRON AND TIBC iron bind.cap.(TI BC) 296 ug/dL 250-45 0 normal Not Available [facility] ([facility]) [address] [place], [address], 09/11/2024 16:05:36 09/08/19 25 09/09/2024 IRON AND TIBC UIBC 196 ug/dL 111-34 3 normal Not Available [facility] ([facility]) [address] [place], [address], 09/11/2024 16:05:36 09/08/19 25 09/09/2024 IRON AND TIBC iron 100 ug/dL 38-169 normal Not Available [facility] ([facility]) [address] [place], [address], 09/11/2024 16:05:36 09/08/19 25 09/09/2024 IRON AND TIBC iron saturation 34 % 15-55 normal Not Available [facility] ([facility]) [address] [place], [address], 09/11/2024 16:05:36 09/08/19 25 09/09/2024 ALBUM IN/CR EATIN INE RATIO ,URIN E creatinine, urine 147.8 mg/dL not estab. normal Not Available [facility] ([facility]) [address] [facility], [place], [address], 09/11/2024 16:05:37 09/08/19 25 09/09/2024 ALBUM IN/CR EATIN INE RATIO ,URIN E albumin, urine 6042.6 ug/mL not estab. Resul ts confi rmed on dilut ion. Not Available [facility] ([facility]) [address] [facility], [place], [address], 09/11/2024 16:05:37 09/08/19 25 09/09/2024 ALBUM IN/CR EATIN INE RATIO ,URIN E alb/creat ratio 4088 mg/g_ creat 0-29 above high normal Madison l: 0 - 29 Moder ately incre ased: 30 - 300 Sever richard incre ased: >300 Not Available [facility] ([facility]) [address] [facility], [place], [address], 09/11/2024 16:05:37 09/08/19 25 09/09/2024 VITAM IN B12 AND FOLAT E vitamin B12 821 pg/mL 232-12 45 normal Not Available [facility] ([facility]) [address] [facility], [place], [address], 09/11/2024 16:05:38 09/08/19 25 09/09/2024 VITAM IN B12 AND FOLAT E folate (folic acid), serum 4.2 NG/mL >3.0 normal A serum folat e asuncion ntrat ion of less than 3.1 ng/mL is consi dered to repre sent clini leisa defic iency . Not Available [facility] ([facility]) [address] [facility], [place], [address], 09/11/2024 16:05:38 09/08/19 25 09/10/2024 CALCI TRIOL (1,25 DI-OH VIT D) calcitriol(1 ,25 di-oh vit D) 31.1 pg/mL 24.8-8 1.5 Not Available [facility] ([facility]) [address] [facility], [place], [address], 09/11/2024 16:05:39 09/08/19 25 09/09/2024 VITAM IN [...] IOM (Inst itute of Medic ine). 2010. Dietsaturnino ry refer ence intak es for calci um and D. Millie caputo [place]: [facility] . 2. Ashly huang MF, Chela grey [place], Todd off-F gunner i BAILEY, et al. Evalu ation , treat ment, and preve ntion of vitam in D defic iency : an Endoc rine Socie ty clini leisa pract ice guide line. JCEM. 2010; 96(7) :1911 -30. 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 soluble transferrin receptor 25.1 nmol/ L 12.2-2 7.3 Not Available [facility] ([facility]) [address] [place], [address], 09/11/2024 16:05:40 09/08/19 25 09/08/2024 TSH RFX ON ABNOR MAL TO FREE T4 TSH 2.360 uIU/m L 0.450- 4.500 normal Not Available [facility] ([facility]) [address] [place], [address], 09/11/2024 16:05:41 09/08/19 25 09/09/2024 GGT WITH REFLE X AMYLA SE/LI PASE GGT 104 IU/L 0-65 above high normal Not Available [facility] ([facility]) [address] [place], [address], 09/11/2024 16:05:41 09/08/19 25 09/09/2024 GGT WITH REFLE X AMYLA SE/LI PASE amylase 79 U/L 31-110 normal Not Available [facility] ([facility]) [address] [place], [address], 09/11/2024 16:05:41 09/08/19 25 09/09/2024 GGT WITH REFLE X AMYLA SE/LI PASE lipase 41 U/L 13-78 normal Not Available [facility] ([facility]) [address] [place], [address], 09/11/2024 16:05:41 09/08/19 25 09/09/2024 URIC ACID uric acid 5.0 mg/dL 3.8-8. 4 normal Thera peuti c targe t for gout patie nts: <6.0 Not Available [facility] ([facility]) [address] [place], [address], 09/11/2024 16:05:42 09/08/19 25 09/09/2024 POTAS SIUM, HEPAR IN PLASM A potassium, heparin plasma 5.4 mmol/ L 3.5-5. 2 above high normal Not Available [facility] ([facility]) [address] [place], [address], 09/11/2024 16:05:43 09/08/19 25 09/09/2024 MAGNE SIUM magnesium 1.5 mg/dL 1.6-2. 3 below low normal Not Available [facility] ([facility]) [address] [place], [address], 09/11/2024 16:05:44 09/08/19 25 09/08/2024 SHIRA TIN ferritin 155 NG/mL 30-400 normal Not Available [facility] ([facility]) [address] [facility], [place], [address], 09/11/2024 16:05:44 09/08/1909/08/2024 RETIC ULOCY TE COUNT reticulocyte count 1.8 % 0.6-2. 6 Not Available [facility] ([facility]) [address] [facility], [place], [address], 09/11/2024 16:05:45 09/08/1909/09/2024 PSA TOTAL (REFL EX TO FREE) reflex criteria COMMEN T The perce nt free PSA is perfo rmed on a refle x basis only when the total PSA is betwe en 4.0 and 10.0 ng/mL . Not Available [facility] ([facility]) [address] [facility], [place], [address], 09/14/2024 06:08:11 09/08/1909/14/2024 PSA TOTAL (REFL EX [...] prese nce or absen ce of dexter najera disea se. Not Available [facility] ([facility]) [address] [facility], [place], [address], 09/14/2024 06:08:11 09/08/19 25 09/10/2024 MITOC HONDR IAL (M2) ANTIB GISELL mitochondria l (M2) antibody <20.0 units 0.0-20 .0 Negat erik 0.0 - 20.0 Equiv ocal 20.1 - 24.9 Posit erik >24.9 Mitoc hondr ial (M2) Antib odies are found in 90-96 % of patie nts with prima ry bilia ry cirrh osis. Not Available [facility] ([facility]) [address] [facility], [place], [address], 09/14/2024 06:08:11 09/08/19 25 09/12/2024 KING EN AUTHO RIZAT ION written authorizatio n COMMEN T King en Autho rizat ion Recei max. Autho rizat ion recei max from [facility] KENISHA for Link Reque st on 09-12 Logge d by Kwaku Logan Not Available [facility] ([facility]) [address] [facility], [place], [address], 09/21/2024 14:06:26 09/08/1909/09/2024 KING EN AUTHO RIZAT ION written authorizatio n COMMEN T King en Autho rizat ion Recei max. Autho rizat ion recei max from [facility] KENISHA for Link Reque st on 09-09 Logge d by Kwaku Logan Not Available [facility] ([facility]) [address] [facility], [place], [address], 09/14/2024 06:08:12 09/08/19 25 09/19/2024 ALK PHOS ISOEN ZYME alkaline phosphatase COMMEN T IU/L Test not perfo rmed. Deter iorat ion occur red durin g speci men handl ing. Not Available [facility] ([facility]) [address] [place], [address], 09/21/2024 14:06:25 09/08/19 25 09/21/2024 ALK PHOS ISOEN ZYME liver fraction: COMMEN T % Test not perfo rmed. ALKPH prote in requi red to compl ete testi ng. Not Available [facility] ([facility]) [address] [place], [address], 09/21/2024 14:06:25 09/08/19 25 09/21/2024 ALK PHOS ISOEN ZYME bone fraction: COMMEN T % Test not perfo rmed. ALKPH prote in requi red to compl ete testi ng. Not Available [facility] ([facility]) [address] [place], [address], 09/21/2024 14:06:25 09/08/19 25 09/21/2024 ALK PHOS ISOEN ZYME intestinal frac.: COMMEN T % Test not perfo rmed. ALKPH prote in requi red to compl ete testi ng. Not Available [facility] ([facility]) [address] [facility], [place], [address], 09/21/2024 14:06:25 09/08/19 25 09/19/[address] PROBL EM request problem COMMEN T Test not perfo rmed. Deter iorat ion occur red durin g speci men handl ing. TEST: [id number] 7 Alkal ine Phosp hatas e Panel : [id number] 2 Not Available [facility] ([facility]) [address] [place], [address], 09/21/2024 14:06:27 09/08/19 25 09/21/[address] PROBL EM request problem COMMEN T Test not perfo rmed. TEST: [id number] Liver Fract ion: Panel : [id number] 2 [id number] 0 Bone Fract ion: Panel : [id number] 2 07963 1 Intes tinal Frac. : Panel : [id number] 2 ALKPH prote in requi red to compl ete testi ng. Not Available [facility] ([facility]) [address], [place], [address], 09/21/2024 14:06:27 11/13/19 25 11/12/2024 CMP, serum or plasm a sodium 142 Not Available [facility] (Medical Records) [address] [place], [address], 11/14/2024 11:19:04 11/13/19 25 11/12/2024 CMP, serum or plasm a potassium 4.9 Not Available [facility] (Medical Records) [address] [place], [address], 11/14/2024 11:19:04 11/13/19 25 11/12/2024 CMP, serum or plasm a BUN 38 Not Available [facility] (Medical Records) [address] [place], [address], 11/14/2024 11:19:04 11/13/19 25 11/12/2024 CMP, serum or plasm a creatinine 4.19 Not Available [facility] (Medical Records) [address] [place], [address], 11/14/2024 11:19:04 11/13/19 25 11/12/2024 CMP, serum or plasm a glucose 144 Not Available [facility] (Medical Records) [address] [place], [address], 11/14/2024 11:19:04 11/13/19 25 11/12/2024 CMP, serum or plasm a WBC 5.2 Not Available [facility] (Medical Records) [address] [place], [address], 11/14/2024 11:19:04 11/13/19 25 11/12/2024 CMP, serum or plasm a RBC 3.50 Not Available [facility] (Medical Records) [address] [place], [address], 11/14/2024 11:19:04 11/13/19 25 11/12/2024 CMP, serum or plasm a HGB 10.3 Not Available [facility] (Medical Records) [address] [place], [address], 11/14/2024 11:19:04 11/13/19 25 11/12/2024 CMP, serum or plasm a HCT 33.1 Not Available [facility] (Medical Records) [address] [place], [address], 11/14/2024 11:19:04 11/13/19 25 11/12/2024 CMP, serum or plasm a plt 195 Not Available [facility] (Medical Records) [address] [place], [address], 11/14/2024 11:19:04 11/13/19 25 11/12/2024 CMP, serum or plasm a sodium 142 Not Available [facility] (Medical Records) [address] [place], [address], 11/14/2024 11:17:12 11/13/19 25 11/12/2024 CMP, serum or plasm a potassium 4.9 Not Available [facility] (Medical Records) [address] [place], [address], 11/14/2024 11:17:12 11/13/19 25 11/12/2024 CMP, serum or plasm a glucose 144 Not Available [facility] (Medical Records) [address] [place], [address], 11/14/2024 11:17:12 11/13/19 25 11/12/2024 CMP, serum or plasm a BUN 38 Not Available [facility] (Medical Records) [address] [place], [address], 11/14/2024 11:17:12 11/13/19 25 11/12/2024 CMP, serum or plasm a creatinine 4.19 Not Available [facility] (Medical Records) [address] [place], [address], 11/14/2024 11:17:12 11/13/19 25 11/12/2024 CMP, serum or plasm a WBC 5.2 Not Available [facility] (Medical Records) [address] [place], [address], 11/14/2024 11:17:12 11/13/19 25 11/12/2024 CMP, serum or plasm a RBC 3.50 Not Available [facility] (Medical Records) [address] [place], [address], 11/14/2024 11:17:12 11/13/19 25 11/12/2024 CMP, serum or plasm a HGB 10.3 Not Available [facility] (Medical Records) [address] [place], [address], 11/14/2024 11:17:12 11/13/19 25 11/12/2024 CMP, serum or plasm a HCT 33.1 Not Available [facility] (Medical Records) [address] [place], [address], 11/14/2024 11:17:12 11/13/19 25 11/12/2024 CMP, serum or plasm a plt 195 Not Available [facility] (Medical Records) [address] [place], [address], 11/14/2024 11:17:12 08/18/19 25 08/18/2024 US, echoc ardio gram No observ ation record ed. [email or web address] [facility] (Medical Records) [address] [place], [address], 08/23/2024 15:35:40 10/27/19 25 10/26/2024 XR, chest , 2 view No observ ation record ed. [email or web address] [facility] (Medical Records) [address] [place], [address], 11/02/2024 10:41:05 11/18/19 25 11/17/2024 XR, chest No observ ation [email or web address] [address] [place], [address], 11/17/2024 19:30:42 11/18/1911/17/2024 CT, abdom en + pelvi s, w/o contr ast No observ ation record ed. [address] (Medical Records) [address] [place], [address], 11/18/2024 11:18:14 01/21/2001/20/2025 NM, bone scan, whole body No observ ation record ed. [address] (Medical Records) [address] [place] [address], [address], 01/25/2025 16:18:26 Result Notes None recorded. Problems Name Problem SNOMED Code Status Onset Date Resolution Date Notes Provider Name and Address Organization Details Recorded Time Counseli ng Completed 201102/07/2014 RECORDED 07/23/20 12 1:53PM BY CASIE AUSTIN MA, ANNOTATI ON/ADDEN DUM Leigh Ann Quinteros PA-C [address], [place], [address] , [facility] [place] 6 14:37:53 Type 2 diabetes mellitus without complica tion [id number] Completed 201202/07/2014 RECORDED 04/14/20 13 3:34PM BY CASIE AUSTIN MA, ANNOTATI ON/ADDEN DUM Leigh Annmitesh Quinteros PA-C [address], [place], [address] , [facility] [place] 6 14:37:53 Malaise and fatigue [id number] Completed 201102/07/2014 RECORDED 04/28/20 12 9:25AM BY LIBBY STEPHEN MA, ANNOTATI ON/ADDEN DUM [facility] [address], [place], [address] , [facility] 6 14:37:53 Influenz a vaccine needed [id number] Completed 201202/07/2014 RECORDED 04/14/20 13 3:41PM BY CASIE AUSTIN MA, OFFICE VISIT Leigh Ann Quinteros PA-C [address], [place], [address] , [facility] 6 14:37:53 Gout [id number] Active 2013 LUIS Ferrari, [facility] 4 15:12:02 Hyperlip idemia [id number] Active 2013 LUIS Ferrari, [facility] 4 15:12:02 Chronic kidney disease stage 1 [id number] Completed 201312/15/2016 STORY: ELEVATED MICROALB UMIN; RECORDED 01/19/20 14 2:14PM BY CASIE AUSTIN MA, OFFICE VISIT Leigh Ann Quinteros PA-C [address] [facility] [address], [place], [address] , [facility] 7 14:56:27 Displace ment of lumbar interver tebral disc without myelopat hy 92266734 Active 2013 SEES PSSP LUIS Ferrari, [facility] 4 15:12:01 Proteinu nazia 31072222 Active 2013 LUIS Ferrari, [facility] 4 15:12:02 Obesity 652541423 Active 2013 LUIS Ferrari, [facility] 4 15:12:02 Infectiv e otitis externa 48423606 Completed 201102/07/2014 RECORDED 07/23/20 12 1:53PM BY CASIE AUSTIN MA, TAMMIE ON/ADDEN RAYSHAWN Quinteros PA-C [address] [facility] [address], [place], [address] , [facility] 6 14:37:53 Active or passive immuniza tion Completed 201102/07/2014 RECORDED 07/23/20 12 2:00PM BY CASIE AUSTIN MA, OFFICE VISIT Leigh Ann Quinteros PA-C [address] [facility] [address], [place], [address] , [facility] 6 14:37:53 Administ ration of diphther ia and tetanus vaccine Completed 201202/07/2014 RECORDED 11/23/19 13 2:44PM BY CASIE AUSTIN MA, TAMMIE ON/HEVER Quinteros PA-C [address] [facility] [address], [place], [address] , [facility] 6 14:37:53 Urolith Active 2013 HAS SEEN UROLOGY LUIS Ferrari, [facility] 4 15:12:02 Scrotal varices Active 2013 LUIS Ferrari [facility] 4 15:12:02 Adult health examinat ion Completed 201303/06/2014 RECORDED 01/19/20 14 2:13PM BY CASIE AUSTIN MA, JOSAFATATI ON/HEVER Quinteros PA-C [address] [facility] [address], [place], [address] , [facility] 6 14:37:53 Counseli ng Completed 201103/06/2014 RECORDED 07/23/20 12 1:53PM BY CASIE AUSTIN MA, ANNOTATI ON/ADDEN DUM Leigh Ann Quinteros PA-C [address], [place], [address] , [facility] 6 14:37:53 Type 2 diabetes mellitus without complica tion 332834207 Completed 201203/06/2014 RECORDED 04/14/20 13 3:34PM BY CASIE AUSTIN MA, ANNOTATI ON/ADDEN DUM Leigh Ann Quinteros PA-C [address], [place], [address] , [facility] 6 14:37:53 Malaise and fatigue 329024377 Completed 201103/06/2014 RECORDED 04/28/20 12 9:25AM BY LIBBY STEPHEN MA, ANNOTATI ON/ADDEN DUM Leigh Ann Quinteros PA-C [address] [facility] [address], [place], [address] , [facility] 6 14:37:53 Influenz a vaccine needed [id number] 06 Completed 201203/06/2014 RECORDED 04/14/20 13 3:41PM BY CASIE AUSTIN MA, OFFICE VISIT Leigh Ann HENLEY-C [address] [facility] [address], [place], [address] , [facility] 6 14:37:53 Insomnia 314958872 Active 2013 Elena Mata MA [facility], [facility] 4 15:12:01 Infectiv e otitis externa 42284264 Completed 201103/06/2014 RECORDED 07/23/20 12 1:53PM BY CASIE AUSTIN MA, ANNOTATI ON/ADDEN DUM Leigh Ann Aldair HENLEY-C [address] [facility] [address], [place], [address] , [facility] 6 14:37:53 Active or passive immuniza tion Completed 201103/06/2014 RECORDED 07/23/20 12 2:00PM BY CASIE AUSTIN MA, OFFICE VISIT Leigh Ann Quinteros PA-C [address] [facility] [address], [place], [address] , [facility] 6 14:37:53 Administ ration of diphther ia and tetanus vaccine Completed 201203/06/2014 RECORDED 11/23/19 13 2:44PM BY CASIE AUSTIN MA, ANNOTATI ON/ADDEN DUM Leigh Ann Quinteros PA-C [address] [facility] [address], [place], [address] , [facility] 6 14:37:53 Otitis media 38751027 Completed 01/15/2017 LUIS Ward, [facility] 7 14:00:47 Disorder of cellular componen t of blood 407904725 Completed 201308/20/2024 Vivi De MD [address] [facility] [address], [place], [address] , [facility] 5 22:35:18 Uncontro lled type 2 diabetes mellitus 017978326 Completed 201301/05/2017 RECORDED 01/21/20 14 11:18AM BY VIANCA SENA, HISTORIC AL SUMMARY Leigh Ann Quinteros PA-C [address] [facility] [address], [place], [address] , [facility] 7 12:05:05 Renal disorder due to type 2 diabetes mellitus 405311868 Active 2020 Not Available [facility] 4 18:06:38 Otitis externa 4424843 Completed 01/15/2017 LUIS Ward, [facility] 7 14:00:31 Body mass index 30+ - obesity 330092893 Completed 05/13/2017 Leigh Ann Quinteros PA-C [address] [facility] [address], [place], [address] , [facility] 7 17:10:10 Type 2 diabetes mellitus 64745208 Completed 01/05/2017 Leigh Ann Quinteros PA-C [address] [facility] [address], [place], [address] , [facility] 7 12:04:58 Tachycar jimi 1243140 Completed 08/17/2023 Vivi De MD [address] [facility] [address], [place], [address] , [facility] 4 16:02:45 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 80681081 Active LUIS Ferrari, [facility] 4 15:12:02 Primary erectile dysfunct ion 814501089 Active LUIS Ferrari, [facility] 4 15:12:02 Hyperkal emia 66993300 Completed 202008/23/2023 Vivi De MD [address] [facility] [address], [place], [address] , [facility] 4 13:51:59 Chronic kidney disease stage 3 865024540 Completed 11/24/2023 Vivi De MD [address] [facility] [address], [place], [address] , [facility] 4 19:07:37 Noncompl iance with therapeu tic regimen 244495270 Active 2017 LUIS Frerari, [facility] 4 15:12:01 Diabetic on insulin 199096756 Active 2017 LUIS Ferrari, [facility] 4 15:12:01 Poor short-te rm memory 843305352 Active 2019 LUIS Ferrari, [facility] 4 15:12:02 Hyperten sive renal disease 47113024 Active 2019 DX: I12.9 Not Available [facility] 4 18:06:38 Iliopsoa s bursitis of right hip 85546906015 81587 Completed 202008/17/2023 Vivi De MD [address], [place], [address] , [facility] 4 15:47:00 Hypomagn esemia 910510956 Active 2020 Not Available [facility] 4 18:06:37 Acute kidney injury 40635345 Completed 202008/15/2023 Vivi De MD [address], [place], [address] , [facility] 4 15:46:57 Hyperten kiko monitori ng status 072999461 Active 2023 dis-enro ll Tasia Gideon null, [facility] 4 09:51:37 Chronic kidney disease stage 4 098279342 Active 2023 Vivi De MD [address], [place], [address] , [facility] 4 19:07:44 Hyperpar athyroid ism due to renal insuffic iency 02781303 Active 2023 Vivi De MD [address], [place], [address] , [facility] 4 07:19:59 Heart failure 33242137 Active 2024 Lorenzo Quinteros PA-C [address], [place], [address] , [facility] 5 09:19:32 History of hepatiti s B 311580560 Active 2024 Vivi De MD [address], [place], [address] , [facility] 5 19:16:02 Hepatiti s B immune 761895000 Completed 202411/24/2024 Vivi De MD [address] [facility] [address], [place], [address] , [facility] 15:38:43 Notes:Some problems listed i n Documents: #[id number], #[id number] could not be added to this patient's chart. Please review these documents and add these problems to the patient's chart manually as needed. Problem Notes None recorded. Procedures Surgical History Date Name Laterality Status Provider Name and Address Organization Details Recorded Time 08/22/19 25 Advanced Care Planning completed Vivi De MD [address] [address], [place], [address], [facility] 08/20/2024 22:29:02 08/17/19 24 Advanced Care Planning completed Vivi De MD [address] [address], [place], [address], [facility] 08/15/2023 15:44:21 05/04/20 23 removal of catheter completed Yesi Farris [facility] 05/06/2023 13:15:36 04/10/20 23 Diabetic Foot Exam (Monofilament) completed Vivi De MD [address] [address], [place], [address], [facility] 04/10/2023 13:37:37 03/26/20 23 retrograde pyelogram completed Yesi Farris [facility] 03/27/2023 09:26:09 03/26/20 23 ureteric lithotripsy completed Yesi Farris [facility] 03/27/2023 09:26:39 03/26/20 23 insertion of stent into ureter completed Yesi Farris [facility] 03/27/2023 09:26:57 07/15/20 22 Advanced Care Planning completed Felicita Cai [facility] 07/17/2022 13:15:29 03/17/20 22 Diabetic Foot Exam (Monofilament) completed Vivi De MD [address], [address], [facility] 03/17/2022 15:17:06 06/18/20 21 Advanced Care Planning completed Vivi De MD [address], [address], [facility] 06/18/2021 08:50:42 06/18/20 21 Diabetic Foot Exam (Monofilament) completed Vivi De MD [address], [address], [facility] 06/18/2021 18:56:54 06/04/20 20 Six-Item Cognitive Test completed Casie badillo MA [facility] 06/04/2020 15:16:46 09/15/19 20 Colonoscopy completed Casie badillo [facility] 06/04/2020 15:14:36 04/15/20 19 Mini-Cog Test completed Casie badillo MA [facility] 04/15/2019 15:42:06 09/20/19 19 Diabetic Foot Exam (Monofilament) completed Celia Ortiz [facility] 09/20/2018 14:36:35 04/16/20 18 Diabetic Foot Exam (Monofilament) completed Clemencia Lindsey MA [facility] 04/16/2018 14:44:34 03/05/20 18 Diabetic Foot Exam (Monofilament) completed Clemencia Lindsey MA [facility] 03/05/2018 12:51:44 01/27/20 18 Diabetic Foot Exam (Monofilament) completed Clemencia Lindsey MA [facility] 01/26/2018 09:37:53 12/09/19 18 Diabetic Foot Exam (Monofilament) completed Dottie Moe MA [facility] 12/08/2017 15:02:35 07/27/18 58 tonsillectomy completed Hadley Main MA [facility] 07/15/2022 14:41:22 Imaging Results None recorded. Procedure Notes None recorded. Medical Equipment None Reported. Allergies Allergen ID Allergen Name Allergen Category Reaction Reaction Severity Criticality Documentation Date Start Date Code Code System Note Provider Name and Address Organization Details Recorded Time 93308 Victoza medicatio n abdominal pain Not available Not available 04/16/2018 22934 3 RxNorm Leigh Annmitesh Quinteros PA-C [address] [facility] [address], [place], [address], [facility] 8 15:07:08 58664 liragluti de medicatio n other Not available Not available 05/20/20212020 45230 8 RxNorm Leisa Charles [facility], [facility] 1 10:45:47 65940 Product containin g angiotens in-conver ting enzyme inhibitor (product) medicatio n Not available Not available low 11/24/2023 98730 009 SNOMED See renal note Vivi De MD [address], [place], [address], [facility] 4 19:07:27 Medications Name Sig Start Date [...] onetouch delica plus lancets extra fine 33g [facility] active Not Available Not Available Not Available [...] Not Available Not Available No t Available silver sulfadiaz ine 1 % topical cream [...] Not Available Not Available No t Available ketorolac 0.5 % eye drops INSTILL 1 DROP INTO LEFT EYE 4 TIMES DAILY active Not Available Not Available No t [...] te 650 mg tablet TAKE 2 TABLETS BY MOUTH 2 TIMES A DAY FOR 30 DAYS active Not Available Not Available No [...] n 300 mg capsule TAKE 1 CAPSULE BY MOUTH TWICE A DAY FOR BACK PAIN active Not Available Not Available No t [...] sulfate HFA 90 mcg/actua tion aerosol inhaler Inhale 2 puffs every 4-6 hours by inhalati on route as needed for 50 days. 12/17 completed Not Available Not Available Not Available sodium polystyre ne sulfonate oral powder TAKE 30 G BY MOUTH 3 TIMES A WEEK, DISSOLVE IN WATER FIRST active Not Available Not Available No t [...] UP TO 4 TIMES A DAY NEEDED FOR PAIN active Not Available Not Available No t [...] 2015 active Not Available Not Available Not Phi lable blood pressure test kit-large cuff active Not Available Not Available Not Available sevelamer carbonate 0.8 gram oral powder packet DISSOLVE 1 PACKET (0.8 GRAMS) INTO BEVERAGE & TAKE 3 TIMES A DAY WITH MEALS/FO OD active Not Available Not Available No t [...] Not Available Not Available Not Available Randy Ramirez U-300 Insulin 300 unit/mL (1.5 mL) subcutane [...] Not Available Not Available No t Available Flonase Sensimist 27.5 mcg/actua tion nasal spray,morteza pension Take 1 spray every day by nasal route at bedtime for 30 days. 02/23 completed Not Available Not Available Not Available Randy Cunha U-300 SoloStar 300 unit/mL (3 mL) subcutane [...] Not Available Not Available Vitals Date Recorded Systolic And Diastolic Provider Name and Address Organization Details Last Updated DateTime 08/22/2024 154/72 mm[Hg] Elena Mata MA [facility] 08/22/2024 16:14:01 Date Recorded Body height Body mass index (BMI) Body weight Heart rate Oxygen saturation Oxygen saturation in Arterial blood by Pulse oximetry Body temperature Systolic And Diastolic Provider Name and Address Organization Details Last Updated DateTime 5 177.8 cm 30.6 kg/m2 82909.1 7 g 84 /min 96 % 96 % 98.3 [degF] 150/66 mm[Hg] Casie stubbs MA [facility] 5 15:25:23 Date Recorded Body height Body mass index (BMI) Body weight Oxygen saturation Oxygen saturation in Arterial blood by Pulse oximetry Heart rate Body temperature Systolic And Diastolic Provider Name and Address Organization Details Last Updated DateTime 5 177.8 cm 30.5 kg/m2 32778.3 8 g 97 % 97 % 91 /min 100.4 [degF] 163/77 mm[Hg] Dottie Moe MA [facility] 5 09:51:44 Date Recorded Body height Body mass index (BMI) Body weight Heart rate Oxygen saturation Oxygen saturation in Arterial blood by Pulse oximetry Body temperature Systolic And Diastolic Provider Name and Address Organization Details Last Updated DateTime 5 177.8 cm 30 kg/m2 25751.8 1 g 92 /min 96 % 96 % 98.1 [degF] 120/63 mm[Hg] Azra Torres MA [facility] 5 08:31:24 Date Recorded Body height Body mass index (BMI) Body weight Oxygen saturation Oxygen saturation in Arterial blood by Pulse oximetry Heart rate Body temperature Systolic And Diastolic Provider Name and Address Organization Details Last Updated DateTime 5 177.8 cm 29.6 kg/m2 84729.1 3 g 96 % 96 % 100 /min 98.4 [degF] 107/55 mm[Hg] Dottie Moe MA [facility] 5 14:04:18 Date Recorded Body height Body mass index (BMI) Body weight Heart rate Oxygen saturation Oxygen saturation in Arterial blood by Pulse oximetry Body temperature Systolic And Diastolic Provider Name and Address Organization Details Last Updated DateTime 5 177.8 cm 30 kg/m2 20737.8 1 g 80 /min 97 % 97 % 98.1 [degF] 133/61 mm[Hg] Azra Torres MA [facility] 5 12:57:35 Social History Question Answer Notes LastModified by Organizat ion Details LastModified Time Tobacco Smoking Status Never Smoker La Nena lucia [facility] 03/30/2014 15:10:37 Do You Have An Advance Directive? Yes Anne-Marie Waggoner (sister) Information not available 04/09/2015 Is Blood Transfusion Acceptable In An Emergency? Yes Information not available 04/09/2015 What Is Your Level Of Caffeine Consumption? Moderate Soda- 2-3 Daily [email or web address] Information not available 08/17/2023 How Much Tobacco Do You Chew? None Information not available 04/09/2015 What Type Of Diet Are You Following? CARBOHYDRATE Information not available 01/15/2017 Which Illicit Or Recreational Drugs Have You Used? None Information not available 04/09/2015 Live Alone Or With Others? 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 Information not available 06/26/2014 Do you [...] 18:06:39 zoster live 7 completed LUIS Ferrari [facility] 08/17/2023 15:12:09 COVID-19, mRNA, LNP-S, PF, 100 mcg/0.5mL dose or 50 mcg/0.25mL dose 1 completed LUIS Ferrari [facility] 08/17/2023 15:12:08 COVID-19, mRNA, LNP-S, PF, 100 mcg/0.5mL dose or 50 mcg/0.25mL dose 1 completed LUIS Ferrari [facility] 08/17/2023 15:12:08 COVID-19, mRNA, LNP-S, PF, 100 mcg/0.5mL dose or 50 mcg/0.25mL dose 1 completed LUIS Ferrari, [facility] 08/17/2023 15:12:08 pneumococcal polysaccharide PPV23 9 completed LUIS Ferrari, [facility] 08/17/2023 15:12:08 Influenza, split virus, quadrivalent, PF 5 completed LUIS Ferrari, [facility] 08/17/2023 15:12:09 Pneumococcal conjugate PCV 13 8 completed LUIS Ferrari, [facility] 08/17/2023 15:12:08 Influenza, split virus, trivalent, PF 4 completed LUIS Ferrari, [facility] 08/17/2023 15:12:09 Influenza, high-dose, quadrivalent, PF 1 completed LUIS Ferrari, [facility] 08/17/2023 15:12:08 Influenza, split virus, quadrivalent, PF 7 completed LUIS Ferrari, [facility] 08/17/2023 15:12:09 Influenza, high-dose, quadrivalent, PF 0 completed LUIS Ferrari, [facility] 08/17/2023 15:12:08 Influenza, split virus, quadrivalent, PF 8 completed LUIS Ferrari, [facility] 08/17/2023 15:12:09 Influenza, high-dose, trivalent, PF 9 completed LUIS Ferrari, [facility] 08/17/2023 15:12:09 Td (adult), 2 Lf tetanus toxoid, preservative free, adsorbed 2 completed LUIS Ferrari, [facility] 08/17/2023 15:12:09 Influenza, high-dose, quadrivalent, PF 2 completed LUIS Ferrari, [facility] 08/17/2023 15:12:08 Influenza, split virus, quadrivalent, PF 6 completed Not Available [facility] 08/13/2019 02:22:04 influenza, seasonal, intradermal, preservative free 2 completed Not Available [facility] 08/15/2023 18:06:39 Tdap 2 completed Not Available [facility] 08/15/2023 18:06:39 pneumococcal polysaccharide PPV23 2 completed Not Available [facility] 08/15/2023 18:06:38 influenza, seasonal, intradermal, preservative free 3 completed Not Available [facility] 08/15/2023 18:06:39 Influenza, high-dose, quadrivalent, PF 3 completed LUIS Zhao [facility] 04/10/2023 13:42:39 Influenza, high-dose, trivalent, PF 4 completed LUIS Zhao [facility] 04/11/2024 12:43:47 Past Encounters Encounter ID Performer Location Encounter Start Date Encounter Closed Date Diagnosis/Indication Diagnosis SNOMED-CT Code Diagnosis ICD10 Code Diagnosis Note [id number] autoEComm erce [address] [facility] [place] [address] 01/14/2012 00:00:00 [id number] autoEComm erce [address] [facility] [facility] [place] [address] 02/06/2012 00:00:00 [id number] autoEComm erce [address] [facility] [place] [address] 04/28/2012 00:00:00 [id number] autoEComm erce [address] [facility] [address] [place], [place] [address] 07/23/2012 00:00:00 [id number] autoEComm erce [address] [facility] [address] [place] [address] 11/22/2012 00:00:00 [id number] autoEComm erce [address] [facility] [address] [place], [place] [address] 04/14/2013 00:00:00 [id number] autoEComm erce [address] [facility] [address] [place], [place] [address] 10/14/2013 00:00:00 [id number] autoEComm erce [address] [facility] [address] [place] [address] 01/18/2014 00:00:00 [id number] Neha Hylton [facility] Main Office [address] [address] [place], [place] [address] 03/30/2014 15:02:25 03/30/2014 15:47:43 Otitis media 60092287 [id number] Raheem García MD Main Office [address] [address] [place] [address] 04/03/2014 14:00:31 04/03/2014 14:41:19 Otitis media 29476469 Otitis externa 3957459 Body mass index 30+ - obesity 575433252 [id number] Raheem García MD Main Office [address] [address] [place] [address] 04/10/2014 12:42:38 04/10/2014 14:10:01 Type 2 diabetes mellitus 37434165 Gout 37629843 Hyperlipidemia 35966705 Tachycardia 7888915 Needs infl uenza immunization 470035186 [id number] Raheem García MD Main Office [address] [address] [place] [address] 04/12/2014 11:13:33 04/12/2014 11:52:39 Tachycardia 7639919 Renal diso rder due to type 2 diabetes mellitus 674533253 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 76157739 [id number] Raheme García MD Main Office [address] [facility] [address] [place] [address] 06/26/2014 14:28:50 06/26/2014 15:25:36 Uncontrolled type 2 diabetes mellitus 384267463 Gout 97546263 [id number] Raheem García MD Main Office [address] [address] [place] [address] 09/25/2014 12:48:58 09/25/2014 13:46:32 Uncontrolled type 2 diabetes mellitus 770134256 Chronic ki dney disease stage 1 346420842 Gout 20014296 [id number] Raheem García MD Main Office [address] [address] [place] [address] 12/25/2014 12:40:02 12/25/2014 14:04:58 Renal disorder due to type 2 diabetes mellitus 389398714 Chronic ki dney disease stage 1 899968076 Gout 55606452 [id number] Raheem García MD Main Office [address] [address] [place] [address] 04/09/2015 13:08:37 04/09/2015 14:08:54 Renal disorder due to type 2 diabetes mellitus 239743853 Hyperlipidemia 36740534 Needs infl uenza immunization 227342712 Chronic ki dney disease stage 1 493527769 Gout 87465255 [id number] Raheem García MD Main Office [address] [address] [place] [address] 07/13/2015 09:21:56 07/13/2015 10:28:30 Renal disorder due to type 2 diabetes mellitus 024165489 E11.29 Varicella vaccination 68 596273 Z23 Primary er ectile dysfunction 085021834 N52.9 [id number] Leigh Annmitesh Quinteros PA-C Main Office [address] [address] [place] [address] 07/31/2015 12:54:40 07/31/2015 14:11:16 Type 2 diabetes mellitus 31178393 E11.9 Uncontroll ed type 2 diabetes mellitus 566082890 E11.65 Uncontroll ed type II DM with [...] Consider premeal insulin. DIsconitnu e regular soda. [id number] Leigh Ann Quinteros PA-C Main Office [address] [address] 07/31/2015 13:44:46 07/31/2015 14:11:24 Renal disorder due to type 2 diabetes mellitus 886671701 E11.29 Total time spent teaching and coordinati [...] ics. Return in 6 weeks with log. [id number] Leigh Ann Quinteros PA-C Main Office [address] [address] 08/29/2015 12:48:13 08/29/2015 14:02:52 Uncontrolled type 2 diabetes mellitus 015038567 E11.65 UNcontroll ed DM with renal complicati [...] rder due to type 2 diabetes mellitus 518314074 E11.29 Renal disease due to HTN and uncontroll ed DM> PT. is advised to increase hydration. Avoid NSAIDs and eatlow POtassium diet. Continue ACEI as directed. Continue working on improving glycemic control with goal A1c under 7%. [id number] Leigh Ann Quinteros PA-C Main Office [address] [facility] [facility] [address] [facility] [place] [address] 09/28/2015 13:43:12 09/28/2015 14:44:32 Renal disorder due to type 2 diabetes mellitus 994771635 E11.29 Renal disease due to HTN and uncontroll ed DM> PT. is advised to increase hydration. Avoid NSAIDs and eat low Potassium diet. Repeat BMP and microalbum in Continue ACEI as directed. Continue working on improving glycemic control with goal A1c under 7%. F/u 6 wks. Repeat BMP , microalb., and A1c before next visit. [id number] Leigh Ann Quinteros PA-C Main Office [address] [place] [address] 12/05/2015 14:24:52 12/05/2015 15:05:58 Uncontrolled type 2 diabetes mellitus 797458827 E11.65 Uncontroll ed DM with renal complicati ons. Noncomplia nt to medicines and diet. Strongly advised to start HUmalog premeal at 10 u TID and increase Toujeo to 60 u daily at HS. Continue oral antidiabet ics and return as scheduled in December. Noncomplia nce with treatment 7893596 Z91.19 Hyperkalemia 14374898 E8 7.5 Secondary to chronic renal disease and ACEI. Stable at this point . Will f/u with nephrology as scheduled. Chronic ki dney disease stage 3 528656405 N18.3 [id number] Raheem García MD Main Office 3640 [facility] 207 [place] [address] 01/15/2016 13:48:04 01/15/2016 14:43:13 Adult health examination 761904517 Z00.00 Renal diso rder due to type 2 diabetes mellitus 214377540 E11.29 Gout 12667052 M10.9 Hyperlipidemia 72769925 E78.5 Body mass index 30+ - obesity 458596468 Z68.30 [id number] Leigh Ann Quinteros PA-C Main Office [address] [place] [address] 02/05/2016 13:46:17 02/05/2016 14:41:03 Uncontrolled type 2 diabetes mellitus 333053922 E11.65 Uncontroll ed DM with renal complicati ons. Noncomplia nt to using Humalog and testing TID. Strongly advised to start HUmalog premeal at 10 u TID and increase Toujeo to 60 u daily at HS. Continue oral antidiabet ics . F/u 6 weeks. Obesity 390902187 E66.9 Renal diso rder due to type 2 diabetes mellitus 753509554 E11.29 F/u with the nephrologi st as scheduled. BP is stable. [id number] Chelsey mendenhall MD Main Office 3640 [facility] 207 [facility] [place] [address] 03/21/2016 15:21:07 03/21/2016 16:34:05 Impacted cerumen 81423520 H61.23 [id number] Leigh Ann Quinteros PA-C Main Office [address] [place] [place] [address] 04/29/2016 15:12:17 04/29/2016 16:43:53 Uncontrolled type 2 diabetes mellitus 196953696 E11.65 Uncontroll ed DM with renal complicati ons. Noncomplia nt to using Humalog and testing TID. Strongly advised to start HUmalog premeal at 10 u TID and increase Toujeo to 65 u daily at HS. Continue oral antidiabet ics . ? if taking Glipizide or not. F/u 2 months. Needs infl uenza immunization 768770182 Z23 Renal diso rder due to type 2 diabetes mellitus 425321243 E11.29 F/u with the nephrologi st as scheduled. BP is stable. Chronic ki dney disease stage 3 781670878 N18.3 [id number] Leigh Ann Quinteros PA-C Main Office 3640 [facility] [address] 09/01/2016 14:24:47 09/01/2016 15:22:08 Uncontrolled type 2 diabetes mellitus 745161416 E11.65 Increase Toujeo to 75 u daily. Start using Humalog premeal as discussed at 10 u in am and at lunch and 15 before dinner. Test glucose 2 hrpc until next visit. Lower total calories and start exercise acitvity as discussed. Retest BMP and microalbum in. Renal diso rder due to type 2 diabetes mellitus 487089356 E11.29 F/u with the nephrologi st as scheduled in September. BP is stable. Noncomplia nce with treatment 2331999 Z91.19 Discussed ion length . TOtal time of visit 35 minutes. Body mass index 30+ - obesity 098177733 Z68.31 [id number] Leigh Ann Quinteros PA-C Main Office 3640 [facility] [address] [place] [address] 12/15/2016 14:22:23 12/15/2016 15:07:26 Uncontrolled type 2 diabetes mellitus 180575419 E11.65 Compliance with premeal insulin is poor. Overall diabetic control is worsening. Will continue TOujeo at 70 u daily. Add Victoza at 0.6 mg daily SC for 1 week,. then if tolerated go to 1.2 mg. F/u 4-6 weeks with log. Renal diso rder due to type 2 diabetes mellitus 073253515 E11.29 F/u with the nephrologi st as scheduled in September. BP is stable. Chronic ki dney disease stage 3 919724149 N18.3 f/u with the nephrologi st as scheduled. Noncomplia nce with treatment 9128143 Z91.19 Discussed ion length . TOtal time of visit 35 minutes. Body mass index 30+ - obesity 307566307 Z68.30 [id number] Raheem García MD Main Office 3640 [facility] [address] [place] [address] 12/24/2016 12:01:17 12/26/2016 12:14:38 [id number] Leigh Ann Quinteros PA-C Main Office 3640 [facility] 207 [place] [address] 01/05/2017 10:55:52 01/05/2017 12:12:38 Acute injury of kidney 7644463983 0573568 N17.9 F/u with nephrologi st as scheduled this afternoon. Labs to be done this afternoon. Renal diso rder due to type 2 diabetes mellitus 894703595 E11.29 Continue Toujeo at 75 u daily. Start HUmalog at 5 u TID premeal. Test glucose TID premeal. Continue low carb diet and return with log in 4 weeks. LOwer GLipizide ER to 5 mg daily to avoid hypoglycem ia. Chronic ki dney disease stage 3 947028120 N18.3 f/u with the nephrologi as scheduled. [id number] Raheem García MD Main Office 3640 [facility] 207 [place] [address] 01/15/2017 13:46:35 01/15/2017 14:51:16 Adult health examination 261849436 Z00.00 Varicella vaccination 68 870855 Z23 Screening for malignant neoplasm of colon 171264265 Z12.11 Displaceme nt of lumbar intervertebral disc without myelopathy 83529094 M51.26 Followed as needed by [facility] Proteinuria 04488401 R80 .9 Renal diso rder due to type 2 diabetes mellitus 089218388 E11.29 Continues close follow up to improve blood sugar control Chronic ki dney disease stage 3 259979011 N18[address] Martínez for renal [id number] Leigh Ann Quinteros PA-C Main Office [address] [place] [address] 02/16/2017 14:02:59 02/16/2017 14:44:01 Renal disorder due to type 2 diabetes mellitus 396138681 E11.29 Continue Toujeo at 74 u daily. Humalog at 5-10 u TID premeal. Test glucose TID premeal. Restart Metfromin ER 500 mg 2 po qd with supper. Lower total calories and increase exercise activity. F/u 6 weeks with repeat A1c. Chronic ki dney disease stage 3 885580772 N18.3 [facility] STable condition. Body mass index 30+ - obesity 648275257 Z68.31 [id number] Leigh Ann Quinteros PA-C Main Office 3640 [facility] 207 [facility] [place] [address] 04/01/2017 13:38:26 04/01/2017 15:02:23 Renal disorder due to type 2 diabetes mellitus 425065322 E11.29 Improve consistenc y of pre-prandi al 10 U Humalog. Discussed that if you forget to inject humalog prior to meals, can inject at 5 U during or after eating which may help. Lower total calories, fat intake and increase exercise activity. Improve consistenc y with diet. F/u 6 weeks with repeat A1c. Increase Toujeo to 80 U. Needs infl uenza immunization 001049930 Z23 Body mass index 30+ - obesity 334754036 Z68.31 Improve diet - decrease fats, caloric intake and salt intake. Increase exercise. Proteinuria 19278160 R80 .9 Just seen by Nadeem bill. Stable condition. Chronic ki dney disease stage 3 392993972 N18.3 Just was seen by nadeem bill . Stable condition. [id number] Leigh Ann Quinteros PA-C Main Office 3640 [facility] [address] [place] [address] 05/13/2017 13:39:04 05/13/2017 14:43:09 Renal disorder due to type 2 diabetes mellitus 039951126 E11.22 Current on meds, asymptomat ic. Glucose readings stable, A1c last checked in 04/01/17 at 10.0, will reassess prior to net visit in 6 wks renal disease stable. seen by nadeem bill Chronic ki dney disease stage 3 683936053 N18.3 stable. seen by nadeem bill Impacted cerumen 4883374 6 H61.23 cerumen obstructio n present bilaterall y, more prominent on L ear Hyperlipidemia 73371453 E78.1 Body mass index 30+ - obesity 525456334 E66.9 Z68.31 [id number] Leigh Ann Quinteros PA-C Main Office 3640 [facility] 207 [place] [address] 07/10/2017 10:54:28 07/10/2017 12:02:12 Renal disorder due to type 2 diabetes mellitus 328867134 E11.22 STable CKD stg 3 diabetic and hypertensi ve. Needs better diabetic control, but struggles with inconsiste ncy in diet and premeal insulin injection. WE discussed that again and will continue trying to improve those issues. He will be seen by nadeem bill in 3 m and by me at around the same time for diabetic f/u. He was advised to take 1-2 weeks and test 2 hrpc to do revision on his Humalog dosage. Toujeo is advised at 80 u daily. Chronic ki dney disease stage 3 706863698 N18.3 stable. [facility]. Administra tion of pneumococcal vaccine 97073756 Z23 Body mass index 30+ - obesity 881162509 E66.9 Z68.35 Z68.30 [id number] Leigh Ann Quinteros PA-C Main Office 3640 [facility] 207 [facility] [place] [address] 12/08/2017 15:00:07 12/08/2017 15:45:19 Renal disorder due to type 2 diabetes mellitus 505931308 E11.22 STable CKD stg 3 diabetic and hypertensi ve. Needs better diabetic control, but struggles with consistenc y in diet and premeal insulin injection. WE discussed that again and will continue trying to improve those issues. [facility]. [facility] and had labs and A1c done there. He was advised to take 1-2 weeks and test 2 hrpc to do revision on his Humalog dosage. Toujeo is advised at 84 u daily. HUmalog add additional 3 u to sliding scale. Continue testing. F/u with log in 4 weeks. Chronic ki dney disease stage 3 143397007 N18.3 stable. [facility]. Body mass index 25-29 - overweight 109341499 E66.3 Z68.28 [id number] Leigh Ann Quinteros PA-C Main Office 36[address] [facility] 207 [facility] [place] [address] 01/26/2018 09:26:49 01/26/2018 10:45:39 Renal disorder due to type 2 diabetes mellitus 358783397 E11.22 STable CKD stg 3 disease. [facility] after having labs repeated. Diabetic [...] days. Chronic ki dney disease stage 3 342816569 N18.3 stable. [facility]. [id number] Raheem García MD Main Office 3640 [facility] 207 [place] [address] 03/05/2018 12:46:45 03/05/2018 13:48:52 Hepatitis C screening 495678134 Z11.59 Active or passive immunization 856688076 Z23 Adult heal th examination 085310448 Z00.00 Renal diso rder due to type 2 diabetes mellitus 194949036 E11.29 Continues close follow up to improve blood sugar control Screening for malignant neoplasm of colon 265610752 Z12.11 Administra tion of pneumococcal vaccine 94386162 Z23 Displaceme nt of lumbar intervertebral disc without myelopathy 23344285 M51.26 Followed as needed by [facility] Chronic ki dney disease stage 3 636098600 N18.[address] Martínez for renal [id number] Leigh Ann Quinteros PA-C Main Office [address] [place] [address] [place] [address] 04/16/2018 14:32:14 04/16/2018 15:26:03 Renal disorder due to type 2 diabetes mellitus 726777642 E11.22 Stable CKD stg 3 disease. REcom. [...] weeks with log. Needs infl uenza immunization 191432103 Z23 Chronic ki dney disease stage 3 771575164 N18.3 Body mass index 25-29 - overweight 988292367 E66.3 Z68.25 Z68.29 Noncomplia nce with therapeutic regimen 250574883 Z91.19 Diabetic on insulin 1707 68495 E11.9 Z79.4 [id number] Chelsey mendenhall MD Main Office 3640 [facility] [address] [place] [address] 09/20/2018 14:29:18 09/20/2018 15:48:17 Renal disorder due to type 2 diabetes mellitus 440071087 E11.22 Pt. is noncomplia nt to medical [...] F/u with PCP in 3-4 m. Chronic dney disease stage 3 682774641 N18.3 Noncomplia nce with therapeutic regimen 412274441 Z91.19 Diabetic on insulin 1707 81796 E11.9 Z79.4 [id number] Raheem García MD Main Office [address] [address] 04/15/2019 15:10:15 04/15/2019 16:44:44 Adult health examination 877190686 Z00.00 Influenza vaccine needed 4522316861 106 Z23 Administra tion of pneumococcal vaccine 71509025 Z23 Renal diso rder due to type 2 diabetes mellitus 341679549 E11.29 followed by [facility] in [place], [place]. HbA1c was 9.3% on 04/04/2019 . Screening for malignant neoplasm of colon 394922709 Z12.11 Screening for malignant neoplasm of prostate 653468371 Z12.5 [id number] Raheem García MD Main Office [address] [address] 06/04/2020 14:46:40 06/04/2020 16:05:14 Adult health examination 520921681 Z00.00 Influenza vaccine needed 9531961923 106 Z23 Renal diso rder due to type 2 diabetes mellitus 867951041 E11.22 Continue quarterly follow-up of serum creatinine , blood pressure, glycemic control. Followed by renal (Kranthi). Chronic ki dney disease stage 3 486328373 N18.30 Renal hypertension 27890 000 I12.9 Medication s reviewed. Will continue present medication s or changes as indicated. Follow home BP. Gout 22102879 M10.9 Diabetic on insulin 1707 11210 Z79.4 Poor short -term memory 464314935 R41.3 Failed cognitive screening. Declines workup. Feels he has not problems with memory. [id number] Raheem García MD Telehealt h 3640 [facility] [address] [place] [address] 01/04/2021 09:10:39 01/04/2021 14:44:18 Iliopsoas bursitis of right hip 2971096838 832955 M70.71 [id number] Vivi De MD Main Office 3640 [facility] [address] [place] [address] 06/18/2021 13:02:00 06/18/2021 13:55:14 Chronic kidney disease stage [address] Martínez advised regular follow up. Renal diso rder due to type 2 diabetes mellitus 030561467 E11.22 N18.32 Follows [facility] endo for diabetesLa a1c 06/18/21: 13.1tx per endo.Ons statin.Oph thalmology exam discussedF mark anthony Renal Dr. Santana [facility] Endocrinol ogyLipid profile orderedCou nselled about regular physical activityCo unselled on dietAdvise d regarding risks/sign s/symptoms of hypoglycem ia. Counseled to carry a snack in case of emergencie sAdvised to check fingerstic k glucose at homeRegual r Dental visit advised.Nu tritionist Follows with endoPodiat ry consult provided Adult heal th examination 665258732 Z00.00 Patient was counseled on healthy diet, exercise and nutrition due to Body mass index is 30.4 kg/m . Last PSADate:Re iliat:Plan: had shared discussion patient to hold screen [...] . Advance directives discussed. Influenza vaccine needed 2633833074 106 Z23 Fatigue 23461135 R53.83 Hyperlipidemia 33073268 E78.5 Hypomagnesemia 847673369 E83.42 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 95394759 D64.9 Advance di rective discussed with patient 678714573 Z71.89 [facility]/HCP provided and discussed. Gout 43929637 M10.9 Colitis 08262929 K52.9 Impacted c erumen of bilateral ears 4903721617 129956 H61.23 [id number] Vivi De MD Main Office 3640 [facility] [address] [place] [address] 10/02/2021 14:12:30 10/02/2021 14:47:26 Chronic kidney disease stage [address] Martínez advised regular follow up. Renal diso rder due to type 2 diabetes mellitus 867300914 E11.22 [facility]: 13.1tx per endo.On statin.Oph [...] with endoPodiat ry consult provided Skin lesion 41209743 L98 .9 Pearly lesion on left ear does not use spf.Possib le BCC, vs skin tag will make urgent referral derm. Hypertensi ve renal disease 79599908 I12.9 Low sodium diet discussedC ounseled on medication adherenceC ounseled on diet/exerc iseDoes not check bp at homeRed flags of HTN emergency discussed and when to go to ED. [id number] Vivi De MD Main Office 3640 [facility] [address] [place] [address] 12/09/2021 12:51:48 12/09/2021 13:30:05 Acute hyperkalemia 6704804 E87.5 Has kayexalate for nephro, was supposed to use and admitted to not use it.Has note seen renal since last fall - advised follow upHe is asymptomat ic, will hold ecg for now.Sugar controlled discussed. Renal diso rder due to type 2 diabetes mellitus 806772887 E11.22 Follows [facility] endo for diabetesHb a1d donetx per [...] provided Chronic ki dney disease stage [address] Martínez advised regular follow up. Hypertensi ve renal disease 19238921 I12.9 Low sodium diet discussedC ounseled on medication adherenceC ounseled on diet/exerc iseDoes not check bp at homeRed flags of HTN emergency discussed and when to go to ED. Skin lesion 14102607 L98 .9 S/p resection follow derms. Adhesive c apsulitis of shoulder 859691860 M75.01 M75.02 Anemia of chronic disease 522855648 D63.8 Will continue to monitor cbc. 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 65663535 D64.9 Will continue to monitor in 3 mo visit. [id number] Chelsey mendenhall MD Main Office [address] [address] 03/05/2022 14:01:11 03/05/2022 15:22:09 Partial thickness burn of lower limb 76517657 T24.201A pt is a diabetic, will start antibiotic s to cover for infection. Use silvadene cream bid, mostly on any open areas, avoid maceration . Keep covered when out, can use light covering at home. Call if not improving or if worsening. Requires a tetanus booster 654415939 Z23 due for Td booster [id number] Vivi De MD Main Office [address] [place] [address] 03/17/2022 14:29:22 03/17/2022 15:32:37 Renal disorder due to type 2 diabetes mellitus 388378750 E11.22 Follows [facility] endo for diabetesHb a1d done currently [...] one Chronic ki dney disease stage [address] Martínez advised regular follow up. Hypertensi ve renal disease 37763478 I12.9 Low sodium diet discussedC ounseled on medication adherence - [facility] order.Coun seled on diet/exerc iseDoes not check bp at homeRed flags of HTN emergency discussed and when to go to ED.Notes home BP wnl. Anemia of chronic disease 050354943 D63.8 Will continue to monitor cbc at annual. 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 98996824 D64.9 Will continue to monitor in 3 mo visit. Essential hypertension 97278713 I10 Edema of l ower extremity 233966518 R60.0 compressio n stocking advised [id number] Vivi De MD Main Office 3397 [facility] [address] [place] [address] 05/27/2022 13:44:10 05/27/2022 14:20:42 Pneumonitis 357752997 J18.9 Begin zithromax at 500 mg daily for 1 week. Pt. is advised to take Mucinex for cough. [id number] Vivi De MD Main Office [address] [facility] [address] [facility] [place] [address] 07/15/2022 14:17:14 07/15/2022 15:35:02 Renal disorder due to type 2 diabetes mellitus 919742655 E11.22 Follows [facility] endo for diabetesHb a1d orderedtx per [...] one Chronic ki dney disease stage [address] Martínez advised regular follow up. Hypertensi ve renal disease 21476218 I12.9 Low sodium diet discussedC ounseled on medication adherence - [facility] order.Coun seled on diet/exerc iseDoes not check bp at homeRed flags of HTN emergency discussed and when to go to ED.Notes home BP wnl. Anemia of chronic disease 069451981 D63.8 Will continue to monitor cbc at annual. Edema of l ower extremity 526764059 R60.0 compressio n stocking advised Adult heal th examination 872262986 Z00.00 Patient was counseled on healthy diet, exercise and nutrition due to Body mass index is 31.6 kg/m . Last PSADate:Re sult:Plan: had shared discussion patient [...] Medication reconciled . Advance directives discussed. Fatigue 66169390 R53.83 Hyperlipidemia 25665729 E78.5 Hypomagnesemia 804676448 E83.42 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 58108158 D64.9 Will continue to monitor in 3 mo visit. Advance di rective discussed with patient 221392069 Z71.89 [facility]OLST/HCP provided and discussed. Gout 78780895 M10.9 Impacted c erumen of bilateral ears 2917028809 591587 H61.23 Administra tion of viral vaccine 40447427 Z23 Varicella vaccination 68 365807 Z23 [id number] Vivi De MD Main Office 3640 [facility] 207 [place] [address] 04/10/2023 12:52:49 04/10/2023 13:49:56 Renal disorder due to type 2 diabetes mellitus 381893860 E11.22 Follows [facility] for diabetestx per endo. (humalog 15 units TID, tresiba 65 units), reminded to reach out to endo.Will stop Pioglitazo ne and have care per Endo perhaps he might be a good candidate for GLP1 vs SGLT 2.Tells me last a1c at [facility] was 6.8On statin.Oph thalmology exam has [...] in seeing one Hypertensi ve renal disease 55602310 I12.9 bp soft will hold amlodipine . Advised to check bp. Chronic ki dney disease stage [address]18[address] Martínez advised regular follow up. Edema of l ower extremity 768268903 R60.0 compressio n stocking advised Insomnia 006311470 G47.0 0 Pericardial effusion 373 535713 I31.39 Likely 2/2 to fluid overload, now on HD. Influenza vaccine needed 5921668917 106 Z23 Abrasion 656214089 T14.8 XXA Right 4th toe, no warmth or fluctuance , no drainage, area cleaned and bacitracin placed and bandage. Advised daily wound check. Call if no improvemen t. Also advised to follow podiatry. [id number] Vivi De MD Main Office [address], [place] [address] 08/17/2023 14:49:27 08/17/2023 16:07:35 Adult health examination 800577380 Z00.00 Patient was counseled on healthy diet, exercise and nutrition due to Body mass index is 31.6 kg/m . Last PSADate: 12/06/21Res ult: 1.5Plan: wants to stop screening. Last Colonoscop y:Date: 09/15/2019R esult: acute colitisPla n: tells me next due in 10 yrs, Vaccines:T d: 03/05/22Zos ter rec:script provided [id number] : 03/05/18PPS V23: 07/23/12, 04/15/19PCV 20: DiscussedI nfluenza: 04/10/23Cov id: 08/17/20, 09/14/20, 06/23/21, encourage updated vaccineRSV : Discussed Routine labs today Immunizati on status reviewed. Will screen based on risk factors. Regular dental and ophtho care advised as well as seat belt and sunscreen use. Distracted driving discussed. Medication reconciled . Advance directives discussed. Advance di rective discussed with patient 833402713 Z71.89 MOLST/HCP provided and discussed. Administra tion of pneumococcal vaccine 95334552 Z23 Administra tion of viral vaccine 25573680 Z29.11 Chronic ki dney disease stage [address] Martínez advised regular follow up. Renal diso rder due to type 2 diabetes mellitus 209038285 E11.22 tx per [facility] endo, a1c/microa lbumin [...] glucose at home Diabetic on insulin 1707 59545 Z79.4 Fatigue 13394468 R53.83 Z00.00 Hyperlipidemia 78426110 E78.5 Z00.00 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 98574746 D64.9 Will continue to monitor in 3 mo visit. Varicella vaccination 68 270963 Z23 Gout 51790445 M10.9 Hyperkalemia 81292233 E8 7.5 Insomnia 966429837 G47.0 0 Noncomplia nce with therapeutic regimen 494170210 Z91.199 Venereal d isease screening 709383188 Z20.2 Z11.3 [id number] Vivi De MD Main Office 3640 [facility] 207 [place] [address] 11/24/2023 15:25:07 11/24/2023 16:18:16 Vitamin D deficiency 65079394 E55.9 on supplement ation Insomnia 823807231 G47.0 0 Reviewed the risk of benzo use. Will continue current regimen till he is evaluated by sleep medicine.C ontrol substance completed. Displaceme nt of lumbar intervertebral disc without myelopathy 44825295 M51.26 Follows pain management Chronic ki dney disease stage 4 641812175 N18.4 Cont. renal follow up. Hypertensi ve renal disease 36634420 I12.9 Stable on current regimen. Renal diso rder due to type 2 diabetes mellitus 787100518 E11.22 Follows [facility] endo. History of calculus of kidney 663672432 Z87.[address] he had done by urology reveals he has cleared renal stone [id number] Vivi De MD Main Office [address] [place] [address] [place] [address] 12/15/2023 13:23:53 12/15/2023 13:53:43 Acute conjunctivitis 44954998 H10.33 Allergic conjunctivitis 475184704 H10.13 Allergic rhinitis 170894 04 J30.9 Trigger fi nger of left hand [id number] M65.312 [id number] Chapito Paz MD Main Office [facility] [address] [address] [place] [address] 02/24/2024 13:21:08 02/24/2024 14:18:03 Fatigue 08142825 R53.83 No clear etiology. Possible infectious although his only symptoms is fatigue. Does not appear to be mood related. [id number] Vivi De MD Main Office [facility] [address] [address] [address] [place] [address] 03/01/2024 13:49:15 03/01/2024 14:47:08 Fatigue 03545718 R53.83 Z00.00 Alkaline p hosphatase above reference range 365457204 R74.8 Hypertensi ve renal disease 56154668 I12.9 Chronic ki dney disease stage 4 861929093 N18.4 Cont. renal follow up. [id number] Vivi De MD Main Office [facility] [address] [address] [place] [address] 03/07/2024 10:48:01 03/07/2024 11:37:38 Hyperglycemia due to type 2 diabetes mellitus [id number] 83433 E11.65 Insulin tr eated type 2 diabetes mellitus 802508350 Z79.4 Liver enzy mes level above reference range 074486077 R74.01 Vitamin D deficiency 347 57747 E55.9 on supplement ation, compliance discussed. Urinary tr act infectious disease 28858533 N39.0 -Has fatigue could be uti, will renally dose with levaquin every other day.-Advis ed to monitor glucose.-H ydration enforced. Hyperkalemia 59821776 E8 7.5 -ECG done 03/01/24 visit. Insomnia 531219472 G47.0 0 Reviewed the risk of benzo use. Will continue current regimen till, advised to follow up with sleep medicine for sleep study. Hypertensi ve renal disease 24869135 I12.9 Advised to increase amlodipine to 2 (2.5mg) he has a follow up with renal in 2 weeks. Advised to monitor to bp then. I will re-check with him in 1 week. Chronic ki dney disease stage 4 878034214 N18.4 Cont. renal follow up. [id number] Vivi De MD Main Office [address] [place] [address] 04/11/2024 10:54:20 04/11/2024 12:28:00 Hyperglycemia due to type 2 diabetes mellitus 5718228242 90834 E11.65 Follows endo. Insulin tr eated type 2 diabetes mellitus 742884754 Z79.4 Liver enzy mes level above reference range 540512635 R74.01 Vitamin D deficiency 347 19039 E55.9 on supplement ation followed by renal. Insomnia 693798058 G47.0 0 -Reviewed the risk of benzo use. Will continue current regimen, Advised to follow up with sleep medicine for sleep study. Hypertensi ve renal disease 83941558 I12.9 Advised to increase amlodipine to 2 (2.5mg) he has a follow up with renal in 2 weeks. Advised to monitor to bp then. I will re-check with him in 1 week. Chronic ki dney disease stage 4 487498876 N18.4 Cont. renal follow up. Influenza vaccine needed 5097563768 106 Z23 65 YEARS AND OLDER Urinary tr act infectious disease 93075087 N39.0 Resolved after tx. [id number] Vivi De MD Main Office [address] [place] [address] 05/17/2024 14:27:11 05/17/2024 15:24:40 Ulcer of foot 16287962 L97.919 He is a diabetic, will cover with abx (bactrim), Granulatio n tissue noted. Area marked 5.5x5.5 cm.CrCl > 30 , Calculated with January 2024 Cr, calculated to be 33.Advised to keep area clean and dry.Angel r protection with Vaseline.A void pedicure.R eferral to production lapping machine operator provided.Vaibhav alfredo glycemic control encouraged Follow up 1 week. [id number] Vivi De MD Main Office [address] [facility] [address] [place] [address] 05/27/2024 15:08:01 05/27/2024 15:44:58 Ulcer of foot 99323919 L97.919 Area is healing well has granulatio n tissue.He did not see production lapping machine operator . I will refer to wound clinic due to compliance issues and the fact that he is a diabetic,N o further abx needed at this time.Encou raged glycemic control.En couraged to keep the area covered and protected. [id number] Chapito Paz MD Main Office [address] [facility] 207 [facility] [place] [address] 08/03/2024 14:24:21 08/03/2024 15:28:21 Edema of lower extremity 874203104 R60.0 This is most likely related to his kidney disease. Will recheck kidney labs and will also check a proBNP. Heart failure is a possibilit y but will hold off on an ECHO. Doubt DVT since both LE's are involved. We discussed a reduced salt diet as well as elevation. [id number] Vivi De MD Main Office [address] [facility] 207 [facility] [place] [address] 08/22/2024 15:00:03 08/22/2024 16:16:31 Adult health examination 207018723 Z00.00 Patient was counseled on healthy diet, exercise and nutrition due to Body mass index is 30.6 kg/m . Last PSADate: 03/01/24Resu lt: 2.9Plan: past age for screening Last Colonoscop y:Date: 09/15/2019R esult: acute colitisPla n: tells me next due in 10 yrs, Vaccines:T d: 03/05/22Zos ter rec: Script provided [id number] : 03/05/18PPS V23: 07/23/12, 04/15/19PCV 20: DiscussedI nfluenza: 04/11/24Cov id: encourage updated vaccineRSV : Discussed Routine labs today Immunizati on status reviewed. Will screen based on risk factors. Regular dental and ophtho care advised as well as seat belt and sunscreen use. Distracted driving discussed. Medication reconciled . Advance directives discussed. Advance di rective discussed with patient 672742927 Z71.89 MOLST/HCP provided and discussed. Renal diso rder due to type 2 diabetes mellitus 892737091 E11.22 tx per [facility] endo, microalbum in ordered, will fax to endo along with CMP and lipids.Kirilla rljay Ophthalmol ogy exam advisedFol cady Renal Dr. Rodolfo mishra profile ordered - On statin.Cou nselled about regular physical activityCo unselled on dietAdvise d regarding risks/sign s/symptoms of hypoglycem ia. Counseled to carry a snack in case of emergencie sAdvised to check fingerstic k glucose at home Diabetic on insulin 1707 45621 Z79.4 Hyperlipidemia 97831939 E78.5 Z00.00 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 37385131 D64.9 Will continue to monitor in 3 mo visit. Gout 35349124 M10.9 Hyperkalemia 11366317 E8 7.5 Fatigue 14638115 R53.83 Z00.00 Insomnia 386570399 G47.0 0 -Reviewed the risk of benzo use. Will continue current regimen, Advised to follow up with sleep medicine for sleep study. Varicella vaccination 68 254744 Z23 Chronic ki dney disease stage [address] Martínez advised regular follow up. Alkaline p hosphatase above reference range 301558860 R74.8 Vitamin D deficiency 347 10022 E55.9 on supplement ation followed by renal. Hypertensi ve renal disease 11529932 I12.9 Bp elevated increase amlodipine to 10mg. Follow up 1 mo. [id number] Jose Bell MD Main Office 36[address] [facility] 207 [place] [address] 11/02/2024 09:34:28 11/02/2024 10:57:07 Fever 356269426 R50.9 fever of unknown etiology - d/w Dr. De - check labs, urine, cxrwill rx c empiric abx - to help keep him out of the hospitalre commend probiotics while on abx Chronic ki dney disease stage 4 640497106 N18.4 cont lasix 40mg bid as per renal - next f/u c renal next wedmost likely has cardiorena l syndrome*w ill fwd copy of this ov note to renal* Renal diso rder due to type 2 diabetes mellitus 230125321 E11.22 cont meds, f/u c endo as dir Heart failure 92298352 I 50.9 as per renal note last week was hypervolem ic - began lasix 40mg bid - see [place]own 24 lbs from renal ov last weekmost likely has HFpEF d/t results of echo 08.18.24 (see above)chec k labsrec avoid saltdoes not appear pt sees cardiologi st - will discuss c pt at f/u visit next week Dysuria 28614071 R30.0 [id number] Vivi De MD Main Office [address] [facility] 207 [facility] [place] [address] 11/14/2024 08:24:29 11/14/2024 09:22:59 Venereal disease screening 327448940 Z11.3 Left flank pain 41424994 9 R10.9 Fever 949702574 R50.9 Pneumonia caused by respiratory syncytial virus 675272382 J12.1 Chill 86720821 R68.83 [id number] Vivi De MD Main Office [address] [facility] 207 [facility] [place] [address] 11/23/2024 13:55:19 11/23/2024 14:35:36 Backache 101753771 M54.89 Alkaline p hosphatase above reference range 735685017 R74.8 History of hepatitis B 818034495 Z86.19 lab suggest he has cleared the virus. discussed result with him. Cyst of kidney 595960184 N28.1 Lesion of lung 115279009 J98.4 Chronic ki dney disease stage [address] Martínez advised regular follow up. [id number] Chapito Paz MD Main Office [address] [facility] 207 [facility] [place] [address] 01/23/2025 12:43:13 01/23/2025 13:13:01 Preoperative state 56098899 Z01.818 No medical contraindi cations to proposed procedure. Waqar Perioperat erik Cardiac Risk was calculated and the risk for perioperat erik SC is <1%. May proceed to surgery as planned. Bilateral cataracts 9572 2003 H26.9 pre-operat erik medical clearance for cataract surgery with Dr. Maranda Yanez ( ), LT eye 02/07/24 Rt eye 02/20/25. Chronic ki dney disease stage [address] Martínez Hypertensi ve renal disease 86399482 I12.9 BP in office at goal-c/w current regimen Heart failure 02619989 I 50.9 Health Concerns Section Related Observation LastModified by Organization Detai ls LastModified Time None Recorded Concern Status LastModified by Organization Details LastModified Time None Recorded Advance Directives Directive Y: Anne-Marie Edilson (sister) Payers Insurance Date Sequence Insurance Name Policy Number Policy Frederick Covered Member ID Frederick Member ID Guarantor Name 08/22/2024 1 [facility] (PPO) [id number] Ryan Waggoner [id number] Ryan Waggoner 08/22/2024 2 [employer] (MEDICARE SUPPLEMENT) Ryan Waggoner [id number] Ryan Waggoner 08/22/2024 1 [facility] - DIRECT CONNECTORCARE TYPE I (HMO) Ryan Waggoner [id number] Ryan Waggoner 08/22/2024 1 [facility] - DIRECT CONNECTORCARE TYPE II (HMO) Ryan Waggoner [id number] Ryan Waggoner 08/22/2024 2 MEDICAID-[place]: [facility] Ryan Waggoner [id number] Ryan Waggoner 08/22/2024 1 [facility] (MEDICAID REPLACEMENT - HMO) [id number] Ryan Waggoner [id number] Ryan Waggoner 08/22/2024 1 [facility] - CAREPLUS (MEDICAID HMO) Ryan Waggoner [id number] 1 Ryan Waggoner 01/30/2025 1 [facility] (MEDICARE REPLACEMENT/AD VANTAGE - PPO) [id number] Ryan Waggoner [id number] Ryan Waggoner 08/22/2024 1 MED[place]ARE [place]: [employer] Ryan Condeantoni [id number] Ryan Wade Edilson 08/22/2024 1 [facility] - MEDICAID ESSENTIAL (MEDICAID HMO) [id number] Ryan Wade Edilson [id number] 1 Ryan Wade Edilson Notes Date Note Type Note Provider Name and Address Organization Details Recorded Time 08/22/2024 text/html Medicare Annual Wellness VisitReported bypatient.Diet [...] not at goal. Continues to work with [facility] Follows renal for CKD4 Vivi De MD [address] [address], [place], [address], [facility] 08/22/2024 17:25:23 11/02/2024 text/html here for hospita l f/u - pna, rsv == no dc summary to reviewapparently he went to [place] on [place].18 - transferred to [facility] - [...] but h/o recurrent uti's Vivi De MD [address] [address], [place], [address], [facility] 11/04/2024 12:23:31 11/14/2024 text/html The patient pres [...] is also under the care of a equipment washer and reports feeling much better overall. Prior to his hospitalization, he experienced chills. His son questioned whether Lasix could have contributed to his symptoms. However, the patient currently denies any chills and continues to take Lasix as prescribed by his equipment washer. They also inquired about refills for sodium bicarbonate and sodium polystyrene sulfonate, both prescribed by the equipment washer; I advised them to contact that provider for refills. We also talked about gabapentin dosing, which requires renal adjustments. The patient also requested STI testing during today s visit. Additionally, he reported experiencing severe left-sided flank pain radiating to the groin, for which he inadvertently took 800 mg of ibuprofen. I reiterated that he should avoid all NSAIDs, including ibuprofen, due to his chronic kidney disease (Stage IV). I emphasized the importance of close follow-up with his equipment washer and advised that acetaminophen is the safest [id number]-qxnhrsq pain reliever for him, not exceeding 3 grams in 24 hours, with a suggested dose of (2) 500 mg every 6 hours as needed. He is overdue for follow-up with his urologist, and I encouraged him to call their office to schedule an appointment. As for his recovery from RSV and secondary pneumonia, he is currently afebrile and asymptomatic. Vivi De MD [address] [address], [place], [address], [facility] 11/14/2024 10:39:22 11/23/2024 text/html Back PainReporte d [...] provide some relief. He also follows with [facility] for ongoing lower back issues. Vivi De MD [address] [address], [place], [address], [facility] 11/23/2024 19:18:58 01/23/2025 text/html Ryan is a 69y r old M with PMHx of CKD stage 4, HTN presents for pre-operative medical clearance for cataract surgery with Dr. Maranda Yanez ( ), LT eye 02/07/24 Rt eye 02/20/25. Denies any acute complaints at this time. Denies of any known drug allergies, and has tolerated anesthesia in the past without complications. The patient does follow w/ Cardiology and notes that he can walk multiple blocks and has no limitations with going up multiple flights of stairs before becoming symptomatic METS score ~ > 4. The patient currently denies chest pain, shortness of breath, palpitations, fever, chills, and nausea/vomiting. KALE VINCENT [address] [facility] [address], [place], [address], [facility] 01/23/2025 13:21:00
--- OUTSIDE RECORDS SUMMARY | 2025-02-02 11:33 | XMS_ITS | Clinical Summary ---
Author Organization [facility] Address [address] [place] [address] Care Team Providers Care Bakery Machine Mechanic Name Role Phone Unavailable Primary Care [...] Diagnosed Date Acute hypoxic respiratory failure 10/18/2024 Social History Tobacco Use Types Packs/Day Years Used Date Smoking Tobacco: Never Assessed [facility] Utilities Answer Date Recorded In the [...] time in the past 12 m [facility], were you homeless or living in a skilled nursing (including now)? No 10/21/2024 Sex and Gender [...] 89 10/22/2024 7:57 AM EDT Temperature 36.7 C (98 F) 10/22/2024 7:57 AM EDT Respiratory Rate 16 [...] on patient's age to complete this topic Insurance [facility] MEDICARE Advance Directives * Full Code (Latest Code Status on File) Date Activated Date Inactivated Comments 10/18/2024 11:07 AM
[2025-02-02 14:55] LABS: Anion Gap 16 (12-20); Blood Urea Nitrogen 62 mg/dL (9-16); Carbon Dioxide 24 mmol/L (22-29); Chloride 108 mmol/L (96-108); Estimated Glomerular Filt Rate 9; Potassium 4.5 mmol/L (3.3-5.1); Sodium 143 mmol/L (135-145)
== END 2025-02-02 10:50 | disposition home or self-care (01) ==
LOC: HO.HMGCLDS 10:49
PROVIDERS: PCP Family Medicine; Visit Provider Internal Medicine Nephrology
DX: N18.4 Chronic kidney disease, stage 4 (severe) (principal)
CPT/HCPCS: 36415; 80051; 82565; 84520

== ENCOUNTER 2025-02-03 16:15 | Outpatient (AMB) | payer MEDICARE, SELFPAY ==
[2025-02-03 16:18] VITALS: BP 122/60; BMI 29.6
--- NOTE | 2025-02-03 16:18 | HO.NEPHOV ---
Vital Signs 02/03/25 16:18 Height 5 ft 11 in Weight 212 lb 2 oz BMI 29.6 BP 122/60 Blood Pressure Location Lt brachial Position Sitting Intake Visit Reasons: FU Full Decator Operator Required: No Accompanied by: Self / Same As Patient Allergies No Known Allergies Allergy (Verified 02/03/25 16:18) HPI Comments Details: Ryan was seen in F/U for advanced CKD. He has H/O acute kidney injury on 2 separate occasions in the past needing hemodialysis on both those times. He has biopsy-proven diabetic nephropathy. His blood sugar control has been bad . 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 His blood pressure has been at goal. His edema is resolved. His appetite is good and does not have any hypoglycemia. He has no urinary symptoms. He denied taking nonsteroidal anti-inflammatories. His serum creatinine is marginally worse.He denies uremic symptoms. [facility] Medical History Proteinuria Type 2 diabetes mellitus with diabetic nephropathy Hypertension Acute kidney injury Review of Systems Const All systems reviewed & are unremarkable except as noted in HPI and below Physical Exam Const General: comfortable and no acute distress Orientation/consciousness: patient oriented x3 HEENT Head: Yes normocephalic Mouth: Normal oral and palatal mucosa present Eyes EOM: EOMs intact bilaterally Neck Neck: Yes supple Resp Auscultation: clear to auscultation bilaterally Cardio Jugular venous distension: no JVD Rate: regular rate GI Palpation (GI): Soft to palpation Auscultation: normal bowel sounds General: Yes no CVA tenderness Back/Spine/Pelvis Back: no CVA tenderness Skin General skin exam: no rashes or lesions noted Neuro General: patient oriented x3 and moves all extremities Extrem General: Yes no pedal edema Office Meds epoetin maranda-epbx 10,000 unit/mL injection solution Performing Provider: Chris Martínez MD Performing Location: [facility] Administered by: Chris Martínez MD on 02/03/25 16:25 Dose Route Admin Location Dispensed Lot Number Expiration Date [facility] Cotton Machine Operator 20,000 unit subcut LUE 2 mL [id number] 08/27/26 6848-3950-35 [employer] Total Dispensed Waste 2 mL 0 % Results Reviewed Nephrology Results: Hgb, (14.0-18.0) 8.7 g/dl L 12/26/24 WBC, (4.8-10.8) 8.6 X10*3/uL 12/26/24 Plt Count, (160-400) 248 X10*3/uL 12/26/24 Sodium, (135-145) 143 mmol/L 02/02/25 Potassium, (3.3-5.1) 4.5 mmol/L 02/02/25 Chloride, (96-108) 108 mmol/L 02/02/25 Carbon Dioxide, (22-29) 24 mmol/L 02/02/25 BUN, (9-16) 62 mg/dL H 02/02/25 Creatinine, (0.5-1.4) 6.23 mg/dL H* 02/02/25 Calcium, (8.4-10.2) 7.9 mg/dL L Δ 12/13/24 Urine Protein, (Neg-Trace) >=1000 (4+) mg/dL H 11/17/24 Assessment & Plan Assessment & Plan (1) Hypertension: Code(s): I10 - Essential (primary) hypertension Category: Medical Qualifiers: Hypertension type: primary hypertension Qualified Code(s): I10 - Essential (primary) hypertension (2) Secondary hyperparathyroidism (of renal origin): Code(s): N25.81 - Secondary hyperparathyroidism of renal origin Category: Medical (3) Chronic kidney disease, stage 4 (severe): Code(s): N18.4 - Chronic kidney disease, stage 4 (severe) Category: Medical (4) Diabetic nephropathy: Code(s): E11.21 - Type 2 diabetes mellitus with diabetic nephropathy Category: Medical Qualifiers: Diabetes mellitus type: type 2 Qualified Code(s): E11.21 - Type 2 diabetes mellitus with diabetic nephropathy (5) Hyperkalemia: Code(s): E87.5 - Hyperkalemia Category: Medical (6) Anemia in chronic kidney disease: Code(s): N18.9 - Chronic kidney disease, unspecified; D63.1 - Anemia in chronic kidney disease Category: Medical Qualifiers: Chronic kidney disease stage: stage 4 (GFR 15-29) Qualified Code(s): N18.4 - Chronic kidney disease, stage 4 (severe); D63.1 - Anemia in chronic kidney disease Plan His renal functions are marginally worse. C/W lasix to 40 mg daily alternating with 20 mg every other day. His serum K is normal. He should be on a low K diet. C/W Kionex. There is no indication for any renal replacement therapy .I gave him 45683 Procrit injections today. He needs to loose weight. Answered all his questions. Follow-up appointment given. Orders: Orders AMB Epoetin Injection Practice Supplied Today D63.1 - Anemia in chronic kidney disease, N18.4 - Chronic kidney disease, stage 4 (severe) Blood Urea Nitrogen 1 Month D63.1 - Anemia in chronic kidney disease, E11.21 - Type 2 diabetes mellitus with diabetic nephropathy, E87.5 - Hyperkalemia, I10 - Essential (primary) hypertension, N18.4 - Chronic kidney disease, stage 4 (severe), N25.81 - Secondary hyperparathyroidism of renal origin Complete Blood Count Auto Diff 1 Month D63.1 - Anemia in chronic kidney disease, E11.21 - Type 2 diabetes mellitus with diabetic nephropathy, E87.5 - Hyperkalemia, I10 - Essential (primary) hypertension, N18.4 - Chronic kidney disease, stage 4 (severe), N25.81 - Secondary hyperparathyroidism of renal origin Electrolytes 1 Month D63.1 - Anemia in chronic kidney disease, E11.21 - Type 2 diabetes mellitus with diabetic nephropathy, E87.5 - Hyperkalemia, I10 - Essential (primary) hypertension, N18.4 - Chronic kidney disease, stage 4 (severe), N25.81 - Secondary hyperparathyroidism of renal origin Creatinine 1 Month D63.1 - Anemia in chronic kidney disease, E11.21 - Type 2 diabetes mellitus with diabetic nephropathy, E87.5 - Hyperkalemia, I10 - Essential (primary) hypertension, N18.4 - Chronic kidney disease, stage 4 (severe), N25.81 - Secondary hyperparathyroidism of renal origin Medications: Refilled sodium polystyrene sulfonate 30 grams PO .Q 3 times a week 453.6 grams 5RF Coding Level of Care Code Est Pt Level 4 (69373) Diagnoses Primary hypertension I10 Hypertension type: primary hypertension Secondary hyperparathyroidism (of renal origin) N25.81 Chronic kidney disease, stage 4 (severe) N18.4 Diabetic nephropathy associated with type 2 diabetes mellitus E11.21 Diabetes mellitus type: type 2 Hyperkalemia E87.5 Anemia in stage 4 chronic kidney disease N18.4; D63.1 Chronic kidney disease stage: stage 4 (GFR 15-29)
== END 2025-02-03 16:34 | disposition home or self-care (01) ==
LOC: HO.HKA 16:16
PROVIDERS: PCP Family Medicine; Visit Provider Internal Medicine Nephrology
DX: I12.9 Hypertensive chronic kidney disease with stage 1 through stage 4 chronic kidney disease, or unspecified chronic kidney disease (principal); N25.81 Secondary hyperparathyroidism of renal origin; N18.4 Chronic kidney disease, stage 4 (severe); E11.21 Type 2 diabetes mellitus with diabetic nephropathy; E87.5 Hyperkalemia; D63.1 Anemia in chronic kidney disease
CPT/HCPCS: 99214

== ENCOUNTER → 2025-02-03 16:15 | Outpatient (BNVA) | payer MEDICARE, SELFPAY | PROVIDERS: PCP Family Medicine; Visit Provider Internal Medicine Nephrology | DX: E11.22 Type 2 diabetes mellitus with diabetic chronic kidney disease (principal); I12.9 Hypertensive chronic kidney disease with stage 1 through stage 4 chronic kidney disease, or unspecified chronic kidney disease; N18.4 Chronic kidney disease, stage 4 (severe); D63.1 Anemia in chronic kidney disease; N25.81 Secondary hyperparathyroidism of renal origin; E11.21 Type 2 diabetes mellitus with diabetic nephropathy; E87.5 Hyperkalemia | CPT/HCPCS: 96372; 99212; Q5106 ==

== ENCOUNTER 2025-03-01 13:10 | Outpatient (REF) | payer MEDICARE, SELFPAY ==
--- NOTE | ~2025-03-01 | CT_ITS ---
CLINICAL HISTORY: DISORDER OF THE LUNG CT chest without contrast Comparison: None provided Findings: The heart is normal size. Calcification of the coronary vasculature. The visualized thyroid and mediastinum are unremarkable. No evidence of pneumonia or edema. Spiculated nodule within the right upper lobe posteriorly measuring 9 mm (image 47). 6 mm subpleural nodule within the left lower lobe anterolaterally (image 65). Left lateral costophrenic angle nodule measuring 8 mm (image 116). Multiple smaller bilateral pulmonary nodules. The upper abdomen is unremarkable. No acute fractures. IMPRESSION: 1. Coronary artery disease. 2. Bilateral pulmonary nodules. Follow-up chest CT in 3 months is recommended for further assessment. This document has been electronically signed by: Paige Lawson MD on 03/01/2025 14:43:20
--- OUTSIDE RECORDS SUMMARY | 2025-03-01 13:46 | XMS_ITS | Clinical Summary ---
Author Organization [facility] Address [address] [place] [address] Care Team Providers Care Political Scientist Name Role Phone Unavailable Primary Care [...] Panel) 06/28/2022 Colorectal Cancer Screening: Colonoscopy 06/28/2022 Falls Risk Assessment 06/28/2022 Hepatitis C Screening 06/28/2022 Social Influencers of Health Screening 06/28/2022 COVID-19 Vaccine ( season) 2024 Depression Screening 07/27/2024 Diabetes: Annual Urine Albumin-Creatinine Ratio (uACR) 10/26/2024 [...] Documents on File Type Date Recorded Patient Plan Manager Expl anation Health Care Decision (hx) 02/27/2023 HE ALTH CARE PROXY Health Care Decision (hx) 02/27/2023 HE ALTH CARE PROXY Health Care Decision (hx) 02/27/2023 HE ALTH CARE PROXY
--- OUTSIDE RECORDS SUMMARY | 2025-03-01 13:46 | XMS_ITS | Patient Health Record ---
Author Organization [facility] Address [address] [facility] [place] [address] Care Team Providers Care Spray Painting Machine Operator Name Role Phone Raheem García MD Primary Care Provider Unavailab collette Virginia Barker Unavailable [phone] Reason For Referral No Information Medications Medication [...] Problem Status W/U Status Risk Notes Problem Other hammer toe(s) (acquired), right foot (M20.41) Active confirmed Problem Acquired hammer toe of left foot ([id number] 103) Other hammer toe(s) (acquired), left foot (M20.42) Active confirmed Plan Of Treatment Pending Test Test Name Order Date [id number] NAIL, 1-5 01/09/2020 38245- Debride <25 sq cm 01/24/2020 83755 I&D ABSCESS- SIMPLE,SINGLE 020 61707-CXPQ NAIL(S) 01/09/2020 Insurance Providers Payer Name Payer Address Payer Phone Subscriber Number Group Number Insured Name Patient Relationship to Insured Coverage Start Date Coverage End Date [employer] Medicare [id number] [address] [address] [place] [address] [id number] Ryan Chauhan Self - patient is the insured Medical (General) History Medical History History ICD Code type II diabetes Kidney disease Measles Mumps Chicken pox Surgical History Surgery Date(Month/Year)
--- OUTSIDE RECORDS SUMMARY | 2025-03-01 13:46 | XMS_ITS | Clinical Summary ---
Author Organization [facility] Address [address] [place] [address] Care Team Providers Care Dressing Room Porter Name Role Phone Unavailable Primary Care Provider [...] Years Used Date Smoking Tobacco: Never Assessed [facility] Utilities Answer Date Recorded In [...] any time in the past 12 m [facility], were you homeless or living in a nursing home (including now)? No 10/21/2024 Sex and Gender [...] patient's age to complete this topic Insurance [facility] MEDICARE Advance Directives * Full Code (Latest Code Status on File) Date Activated Date Inactivated Comments 10/18/2024 11:07 AM
--- OUTSIDE RECORDS SUMMARY | 2025-03-01 13:46 | XMS_ITS | Clinical Summary ---
Author Organization [facility] Address [address] [facility] [address] [place] [address] Phone Care Team Providers Care Road Gang Supervisor Name Role Phone Joanna Angeles MD Primary Care Provider [phone] Allergies Active Allergy Reactions Criticality Noted Date [...] A1c (%). Testing performed or reported by ~[facility], ~a Service of [facility], ~[address] [place] [address]~ 03/21/2019 2:49 PM EDT us Chris Martínez MD LAB BLOOD ORDERABLES Final Resul t [facility] 3 from Last 3 Months or Most Recently Relevant to Health Maintenance Insurance UHC Medicare UHC Medicare Care Teams Road Gang Supervisor Relationship Specialty Start Date End Date Joanna Angeles MD [address] [facility] [address] [place] [phone] PCP - General Family Medicine 02/17/23
--- OUTSIDE RECORDS SUMMARY | 2025-03-01 13:46 | XMS_ITS | Encounter Summary ---
Author Organization [facility] Address [address] [facility] [address] [place] [address] Phone Care Team Providers Care Injection Specialist Name Role Phone Raheem García MD Primary Care Provider [phone] Encounter Details Date Type Department Care Team (Late st Contact Info) Description 09/15/2019 Procedure Pass [facility] Endoscopy Admitting Dept Virtual Department [address] [place] [address] Social History Tobacco Use Types Packs/Day Years Used Date Smoking Tobacco: Never Smokeless Tobacco: Never Alcohol Use Standard Drinks/Week Comments Never 0 (1 standard drink = 0.6 oz pur e alcohol) Sex and Gender Information Value Date Recorded Sex Assigned at Not on file Legal Sex Male 10:36 PM EDT Gender Identity Not on file Sexual Orientation Not on file documented as of this encounter Plan of Treatment Not on file documented as of this encounter Visit Diagnoses Not on filedocumented in this encounter Care Teams Injection Specialist Relationship Specialty Start Date End Date Raheem García MD [address] [facility] [address] [place] [address] PCP - General Internal Medicine 08/18/19 documented as of this encounter Additional Source Comments The information contained in this document represents components of the legal health record. It is not the complete legal health record.[facility]
== END 2025-03-01 13:11 | disposition home or self-care (01) ==
LOC: HO.CT 13:10
PROVIDERS: PCP Family Medicine; Visit Provider Family Medicine
DX: J98.4 Other disorders of lung (principal)
CPT/HCPCS: 71250

== ENCOUNTER → 2025-03-01 13:13 | Outpatient (BNV) | payer MEDICARE, SELFPAY | PROVIDERS: PCP Family Medicine; Visit Provider Radiology Diagnostic Radiology | DX: R91.1 Solitary pulmonary nodule (principal) | CPT/HCPCS: 71250 ==

== ENCOUNTER 2025-03-23 14:41 | Outpatient (REF) | payer MEDICARE, SELFPAY ==
[2025-03-23 14:50] LABS: MANUAL DIFF FLAG NO
--- OUTSIDE RECORDS SUMMARY | 2025-03-23 15:16 | XMS_ITS | Patient Health Record ---
Author Organization [facility] Address [address] [facility] [place] [address] Care Team Providers Care Program Support Specialist Name Role Phone Raheem García MD Primary Care Provider Unavailab collette Virginia Barker Unavailable [phone] Reason For Referral No Information Medications Medication [...] Problem Acquired hammer toe of left foot ([id number] 103) Other hammer toe(s) (acquired), left foot (M20.42) Active confirmed Plan Of Treatment Pending Test Test Name Order Date [id number] NAIL, 1-5 01/09/2020 84038- Debride <25 sq cm 01/24/2020 93558 I&D ABSCESS- SIMPLE,SINGLE 020 [id number] NAIL(S) 01/09/2020 Insurance Providers Payer Name Payer Address Payer Phone Subscriber Number Group Number Insured Name Patient Relationship to Insured Coverage Start Date Coverage End Date [employer] Medicare [id number] [address] [address] [place] [address] [id number] Ryan Chauhan Self - patient is the insured Medical (General) History Medical History History ICD Code type II diabetes Kidney disease Measles Mumps Chicken pox Surgical History Surgery Date(Month/Year)
--- OUTSIDE RECORDS SUMMARY | 2025-03-23 15:17 | XMS_ITS | Clinical Summary ---
Author Organization [facility] Address [address] [facility] [address] [place] [address] Phone Care Team Providers Care Geographic Information Systems Director Name Role Phone Raheem Hurley MD Primary Care Provider [phone] Allergies No known active allergies Medications amitriptyline (ELAVIL) 75 MG tablet Take by mouth nightly at bedtime. Active gabapentin (NEURONTIN) 300 MG capsule Take 300 mg by mouth 3 (three) times a day. Active temazepam (RESTORIL) 15 mg capsule Take 15 mg by mouth nightly at bedtime as needed for sleep. Active allopurinol (ZYLOPRIM) 100 MG tablet Take 100 mg by mouth daily. Active pioglitazone (ACTOS) 30 MG tablet Take 30 mg by mouth daily. Active lisinopriL (PRINIVIL,ZESTR IL) 5 MG tablet Take 5 mg by mouth daily. Active lovastatin (MEVACOR) 40 MG tablet Take 40 mg by mouth nightly at bedtime. Active oxyCODONE HCl 10 mg TabIndications: pain Take 10 mg by mouth every 6 (six) hours as needed. Indications: pain Active insulin glargine U-300 (TOUJEO SOLOSTAR) 300 unit/mL (1.5 mL) injection penIndications: daily at hs 80 Units daily. Indications: daily at hs Active Social History Tobacco Use Types Packs/Day Years Used Date Smoking Tobacco: Never Smokeless Tobacco: Never Alcohol Use Standard Drinks/Week Comments Never 0 (1 standard drink = 0.6 oz pur e alcohol) Education Answer Date Recorded Are you interested in more education? Not on rui e 11/21/2022 Are you concerned about learning? Not on file 11/21/2022 No 11/21/2022 No 11/21/2022 Digital Access Answer Date Recorded No 12/20/2022 No 12/20/2022 No 12/20/2022 Reliable internet access at home? Not on file 12/20/2022 Device with a working camera? Not on file Sex and Gender Information Value Date Recorded Sex Assigned at Not on file Legal Sex Male 10:36 PM EDT Gender Identity Not on file Sexual Orientation Not on file Last Filed Vital Signs Vital Sign Reading Time Taken Comments Blood Pressure 121/66 09/15/2019 12:20 PM EST Pulse 100 09/15/2019 10:56 AM EST Temperature 36.2 C (97.2 F) 09/15/2019 12:20 PM EST Respiratory Rate 16 09/15/2019 12:26 PM EST Oxygen Saturation 98% 09/15/2019 12:20 PM EST Inhaled Oxygen Concentration - - Weight 90.7 kg (200 lb) 09/14/2019 11:36 AM EST Height 180.3 cm (5' 11 ) 09/14/2019 11:36 AM EST Body Mass Index 27.89 09/14/2019 11:36 AM EST Plan of Treatment Health Maintenance Due Date Last Done Comments CREATININE LEVEL 1955 LIPID PANEL 1955 POTASSIUM LEVEL 1955 DEPRESSION SCREENING 1965 HEPATITIS C SCREENING 1971 COLOGUARD 1998 FIT TEST 1998 FOBT 1998 SIGMOIDOSCOPY 1998 VIRTUAL COLONOSCOPY 1998 ZOSTER VACCINES (2 of 3) 04/20/2017 017, 01/30/2017 Adult Td,Tdap Booster 07/23/2022 07/23/2012 COVID-19 VACCINE (3 - 2023-2 5 season) 2024 09/14/2020, 08/17/2020 RSV VACCINE (1 - 1-dose 75+ series) 2028 COLONOSCOPY 09/15/2029 09/15/2019 COLORECTAL CANCER SCREENING 09/15/2029 PNEUMOCOCCAL VACCINES (50+ years) Completed 04/15/2019, 03/05/2018, 07/23/2012 SMOKING STATUS SCREENING (On ce After 26 Yrs) Completed 09/15/2019 HEPATITIS A VACCINES Aged Out No long er eligible based on patient's age to complete this topic HIB VACCINES Aged Out No longer eligi ble based on patient's age to complete this topic MENINGOCOCCAL VACCINES (ACWY) Aged Out No longer eligible based on patient's age to complete this topic MENINGOCOCCAL VACCINES (B) Aged Out N o longer eligible based on patient's age to complete this topic Medical Devices Not on file Procedures Procedure Name Priority Date/Time Associated Diagnosis Comments ENDOSCOPY, COLON 09/15/2019 11:3 9 AM EST from Last 3 Months or Most Recently Relevant to Health Maintenance Results * ENDOSCOPY, COLON (09/15/2019 11:39 AM EST) Narrative Transcriptions Luly Pagan MD - 09/15/2019 11:39 AM EST Patient Name: Ryan Condetorivik Attending MD:: LULY PAGAN MD Procedure Date: 09/15/2019 11:39 AM Date of : 1955 Age: 64 Admit Type: Outpatient Gender: Male Room: [facility] 04 Referring MD: RAHEEM HURLEY Exam Type: Colonoscopy Indications: Positive Cologuard test Medications: Monitored Anesthesia Care Procedure: Informed consent was obtained from the patient after discussion of the indications, limitations,alternatives, benefits, and risks of the procedure. Risksspecifically discussed include but are not limited to medication reactions, missed lesions, bleeding, perforation, orthe need for emergent surgery. Throughout the procedure, the patient's blood pressure, pulse, end-tidal CO2, and oxygen saturations were monitored continuously. The Olympus adult colonoscope CFQ 180AL #3 wasintroduced through the anus and advanced to the terminal ileum,with identification of the appendiceal orifice and IC valve. The colonoscopy was somewhat difficult. The patient tolerated the procedure fairly well. The quality of the bowel preparation was evaluated using the BBPS (Zullinger Bowel Preparation Scale) with scores of: Right Colon =1 (portion of mucosa seen, but other areas not well seendue to staining, residual stool and/or opaque liquid), Transverse Colon = 3 (entire mucosa seen well with no residual staining, small fragments of stool or opaque liquid) and Left Colon = 2 (minor amount of residual staining, small fragments of stool and/or opaqueliquid, but mucosa seen well). The total BBPS score equals 6. Complications: No immediate complications. Estimated blood loss:Minimal. Findings: The perianal and digital rectal examinations werenormal. Pertinent negatives include normal sphincter tone. Segmental moderate inflammation characterized byaltered vascularity, congestion (edema), erythema andfriability was found in the recto-sigmoid colon. Biopsies weretaken with a cold forceps for histology. Localized moderate mucosal changes characterized by congestion (edema), erythema, friability, granularityand mucus were found in the cecum. Biopsies were taken witha cold forceps for histology. A moderate amount of semi-solid stool was found in the recto-sigmoid colon, in the ascending colon and in the cecum, interfering with visualization. Retroflexion in the right colon was performed. The terminal ileum appeared normal. The exam was otherwise without abnormality on directand retroflexion views. Impression: - Segmental moderate inflammation was found in the recto-sigmoid colon secondary to proctosigmoid colitis. Biopsied. - Localized moderate mucosal changes were found in the cecum secondary to colitis. Biopsied. - Stool in the recto-sigmoid colon, in the ascendingcolon and in the cecum. - The examined portion of the ileum was normal. - The examination was otherwise normal on direct and retroflexion views. Recommendation: - I will send results of your biopsy to you and your referring physician or provider. If you do not receive notification within 3 weeks, please call our office. - Return to GI office. LULY PAGAN MD 09/15/2019 12:19:37 PM This report has been signed electronically. Number of Addenda: 0 Note Initiated On: 09/15/2019 11:39 AM Procedure Code(s): --- Professional --- 60168, Colonoscopy, flexible; with biopsy, single or multiple --- Technical --- 28056, Colonoscopy, flexible; with biopsy, single or multiple Diagnosis Code(s): --- Professional --- K63.89, Other specified diseases of intestine K52.9, Noninfective gastroenteritis and colitis, unspecified R19.5, Other fecal abnormalities --- Technical --- K63.89, Other specified diseases of intestine K52.9, Noninfective gastroenteritis and colitis, unspecified R19.5, Other fecal abnormalities CPT copyright 2018 [employer]. All rights reserved. The codes documented in this report are preliminary and upon cloth pattern maker reviewmay be revised to meet current compliance requirements. Procedure Date: 09/15/2019 11:39:[address] [place] [address] Raheem Hurley MD GI PROCEDURE ORDERABLES F inal Result from Last 3 Months or Most Recently Relevant to Health Maintenance Insurance MEDICARE REPLACEMENT MEDICARE REPLACEMENT MEDICARE REPLACEMENT MEDICARE [place] [address] [address] MEDICARE REPLACEMENT Member Subscriber Plan / Payer (Ef fective 2019-Present) Name:Ryan Waggoner Relation to Subscriber:Self Name:Ryan Waggoner Payer ID:[id number] (NAIC) Type:Medicare Address: [place] [id number] MEDICARE REPLACEMENT Member Subscriber Plan / Payer (Ef fective 2019-Present) Name:Ryan Waggoner Relation to Subscriber:Self Name:Ryan Waggoner Payer ID:[id number] (NAIC) Type:Medicare Address: [place] [id number] MEDICARE REPLACEMENT [facility] MEDICARE RE[place] [place] [address] MEDICARE REPLACEMENT Care Teams Geographic Information Systems Director Relationship Specialty Start Date End Date Raheem Hurley MD [address] [place] [address] PCP - General Internal Medicine 08/18/19 Additional Source Comments The information contained in this document represents components of the legal health record. It is not the complete legal health record.[facility]
--- OUTSIDE RECORDS SUMMARY | 2025-03-23 15:17 | XMS_ITS | Encounter Summary ---
Author Organization [facility] Address [address] [facility] [address] [place] [address] Phone Care Team Providers Care Medical Records Specialist Name Role Phone Raheem García MD Primary Care Provider [phone] Encounter Details Date Type Department Care Team (Late st Contact Info) Description 06/01/2017 Procedure Pass [facility] Endoscopy Admitting Dept Virtual Department [address] [place] [address] Social History Tobacco Use Types Packs/Day Years [...] on filedocumented in this encounter Care Teams Medical Records Specialist Relationship Specialty Start Date End Date Raheem García MD [address] [facility] [address] [place] [address] PCP - General Internal Medicine 08/18/19 documented as of this encounter Additional Source Comments The information contained in this document represents components of the legal health record. It is not the complete legal health record.[facility]
--- OUTSIDE RECORDS SUMMARY | 2025-03-23 15:17 | XMS_ITS | Clinical Summary ---
Author Organization [facility] Address [address] [place] [address] Care Team Providers Care Atmospheric Sciences Professor Name Role Phone Unavailable Primary Care [...] Used Date Smoking Tobacco: Never Assessed [facility] Utilities Answer Date Recorded In the past [...] any time in the past 12 m [facility], were you homeless or living in a snf (including now)? No 10/21/2024 Sex and Gender [...] patient's age to complete this topic Insurance [facility] MEDICARE Advance Directives * Full Code (Latest Code Status on File) Date Activated Date Inactivated Comments 10/18/2024 11:07 AM
--- OUTSIDE RECORDS SUMMARY | 2025-03-23 15:17 | XMS_ITS | Clinical Summary ---
Author Organization [facility] Address [address] [place] [address] Care Team Providers Care Vamp Wetter Name Role Phone Unavailable Primary Care Provider [...] Documents on File Type Date Recorded Patient Child & Adolescent Psychiatrist Expl anation Health Care Decision (hx) 02/27/2023 HE ALTH CARE PROXY Health Care Decision (hx) 02/27/2023 HE ALTH CARE PROXY Health Care Decision (hx) 02/27/2023 HE ALTH CARE PROXY
--- OUTSIDE RECORDS SUMMARY | 2025-03-23 15:17 | XMS_ITS | Clinical Summary ---
Author Organization [facility] Address [address] [facility] [address] [place] [address] Phone Care Team Providers Care Associate Chief Nurse Name Role Phone Joanna Angeles MD Primary Care Provider [phone] Allergies Active Allergy Reactions Criticality Noted Date [...] A1c (%). Testing performed or reported by ~[facility], ~a Service of [facility], ~[address] [place] [address]~ 03/21/2019 2:49 PM EDT us Chris Martínez MD LAB BLOOD ORDERABLES Final Resul t [facility] 3 from Last 3 Months or Most Recently Relevant to Health Maintenance Insurance UHC Medicare UHC Medicare Care Teams Associate Chief Nurse Relationship Specialty Start Date End Date Joanna Angeles MD [address] [facility] [address] [place] [phone] PCP - General Family Medicine 02/17/23
--- OUTSIDE RECORDS SUMMARY | 2025-03-23 15:17 | XMS_ITS | Encounter Summary ---
Author Organization [facility] Address [address] [facility] [address] [place] [address] Phone Care Team Providers Care Frozen Pie Maker Name Role Phone Raheem García MD Primary Care Provider [phone] Encounter Details Date Type Department Care Team (Late st Contact Info) Description 09/15/2019 Procedure Pass [facility] Endoscopy Admitting Dept Virtual Department [address] [place] [address] Social History Tobacco Use Types Packs/Day Years [...] on filedocumented in this encounter Care Teams Frozen Pie Maker Relationship Specialty Start Date End Date Raheem García MD [address] [facility] [address] [place] [address] PCP - General Internal Medicine 08/18/19 documented as of this encounter Additional Source Comments The information contained in this document represents components of the legal health record. It is not the complete legal health record.[facility]
--- OUTSIDE RECORDS SUMMARY | 2025-03-23 15:17 | XMS_ITS | Encounter Summary ---
Author Organization [facility] Address [address] [place] [address] Phone Care Team Providers Care Tank Farm Operator Name Role Phone Joanna Angeles MD Primary Care Provider [phone] Reason for Visit * Reason Comments Med Refill Encounter Details Date Type Department Care Team ([facility] st Contact Info) Description 06/09/2023 Refill [facility] [address] [place] [address] Ahmet Oviedo MD [address] [facility] [address] [place] [address] Social History Tobacco Use Types [...] on filedocumented in this encounter Care Teams Tank Farm Operator Relationship Specialty Start Date End Date Joanna Angeles MD [address] [facility] [address] [place] [phone] PCP - General Family Medicine 02/17/23 documented as of this encounter
[2025-03-23 15:32] LABS: Hematocrit 26.6 % (42.0-52.0); Hemoglobin 8.3 g/dl (14.0-18.0); Imm Gran Abs Auto 0.19 X10*3/uL (0.00-0.03); Imm Gran Pct Auto 1.8 % (0.0-0.4); Lymphocytes Absolute Auto 1.7 X10*3/uL (1.2-4.9); Mean Corpuscular HGB Conc 31.2 g/dl (31.0-36.0); Mean Corpuscular Hemoglobin 29.0 pg (27.0-33.0); Mean Corpuscular Volume 93.0 fL (80.0-98.0); NRBC Abs Auto 0.000 X10*3/uL (0.0-0.012); NRBC Pct Auto 0.0 /100WBC (0.0-0.2); Platelet Count 259 X10*3/uL (160-400); Red Blood Count 2.86 X10*6/uL (4.60-5.80); White Blood Count 10.4 X10*3/uL (4.8-10.8)
[2025-03-23 16:23] LABS: Anion Gap 15 (12-20); Blood Urea Nitrogen 61 mg/dL (9-16); Carbon Dioxide 23 mmol/L (22-29); Chloride 108 mmol/L (96-108); Estimated Glomerular Filt Rate 10; Potassium 5.4 mmol/L (3.3-5.1); Sodium 141 mmol/L (135-145)
== END 2025-03-23 14:42 | disposition home or self-care (01) ==
LOC: HO.LAB 14:41
PROVIDERS: PCP Family Medicine; Visit Provider Internal Medicine Nephrology
DX: E11.22 Type 2 diabetes mellitus with diabetic chronic kidney disease (principal); I12.9 Hypertensive chronic kidney disease with stage 1 through stage 4 chronic kidney disease, or unspecified chronic kidney disease; N18.4 Chronic kidney disease, stage 4 (severe); E11.21 Type 2 diabetes mellitus with diabetic nephropathy; N25.81 Secondary hyperparathyroidism of renal origin; N17.9 Acute kidney failure, unspecified; E87.5 Hyperkalemia
CPT/HCPCS: 36415; 80051; 82565; 84520; 85025

== ENCOUNTER 2025-03-31 15:59 | Outpatient (AMB) | payer MEDICARE, SELFPAY ==
--- NOTE | 2025-03-31 16:02 | HO.NEPHOV_ITS ---
Vital Signs 03/31/25 16:04 Height 5 ft 11 in Weight 206 lb 4 oz BMI 28.8 BP 112/64 Blood Pressure Location Lt brachial Position Sitting Pulse 75 Pulse Source Pulse Oximeter Pulse Oximetry (%) 93 Oxygen Delivery Method Room Air Intake Visit Reasons: 1mon follow-up w/labs Water Pump Installer Required: No Accompanied by: Self / Same As Patient Allergies No Known Allergies Allergy (Verified 03/31/25 16:04) HPI Comments Details: Ryan was seen in F/U for advanced CKD. He has H/O acute kidney injury on 2 separate occasions in the past needing hemodialysis on both those times. He has biopsy-proven diabetic nephropathy. His blood sugar control has not been optimal . He follows up with an electronic industrial controls mechanic. His blood pressure has been at goal. His edema is resolved. His appetite is good and does not have any hypoglycemia. He has no urinary symptoms. He denied taking nonsteroidal anti-inflammatories. His serum creatinine is stable .He denies uremic symptoms. [facility] Medical History Proteinuria Type 2 diabetes mellitus with diabetic nephropathy Hypertension Acute kidney injury Review of Systems Const All systems reviewed & are unremarkable except as noted in HPI and below Physical Exam Const General: comfortable and no acute distress Orientation/consciousness: patient oriented x3 HEENT Head: Yes normocephalic Mouth: Normal oral and palatal mucosa present Eyes EOM: EOMs intact bilaterally Neck Neck: Yes supple Resp Auscultation: clear to auscultation bilaterally Cardio Jugular venous distension: no JVD Rate: regular rate GI Palpation (GI): Soft to palpation Auscultation: normal bowel sounds General: Yes no CVA tenderness Back/Spine/Pelvis Back: no CVA tenderness Skin General skin exam: no rashes or lesions noted Neuro General: patient oriented x3 and moves all extremities Extrem General: Yes no pedal edema Office Meds epoetin maranda-epbx 10,000 unit/mL injection solution Performing Provider: Chris Martínez MD Performing Location: [facility] Administered by: Chris Martínez MD on 03/31/25 16:05 Dose Route Admin Location Dispensed Lot Number Expiration Date [facility] Tape Duplicator 20,000 unit subcut LUE 2 mL [id number] 08/27/26 [id number] [employer] [facility] Total Dispensed Waste 2 mL 0 % Results Reviewed Nephrology Results: Hgb, (14.0-18.0) 8.3 g/dl L 03/23/25 WBC, (4.8-10.8) 10.4 X10*3/uL 03/23/25 Plt Count, (160-400) 259 X10*3/uL 03/23/25 Sodium, (135-145) 141 mmol/L 03/23/25 Potassium, (3.3-5.1) 5.4 mmol/L H 03/23/25 Chloride, (96-108) 108 mmol/L 03/23/25 Carbon Dioxide, (22-29) 23 mmol/L 03/23/25 BUN, (9-16) 61 mg/dL H 03/23/25 Creatinine, (0.5-1.4) 5.67 mg/dL H* 03/23/25 Assessment & Plan Assessment & Plan (1) Chronic kidney disease, stage 4 (severe): Code(s): N18.4 - Chronic kidney disease, stage 4 (severe) Category: Medical (2) Diabetic nephropathy: Code(s): E11.21 - Type 2 diabetes mellitus with diabetic nephropathy Category: Medical Qualifiers: Diabetes mellitus type: type 2 Qualified Code(s): E11.21 - Type 2 diabetes mellitus with diabetic nephropathy (3) Hyperkalemia: Code(s): E87.5 - Hyperkalemia Category: Medical (4) Secondary hyperparathyroidism (of renal origin): Code(s): N25.81 - Secondary hyperparathyroidism of renal origin Category: Medical (5) Anemia in chronic kidney disease: Code(s): N18.9 - Chronic kidney disease, unspecified; D63.1 - Anemia in chronic kidney disease Category: Medical Qualifiers: Chronic kidney disease stage: stage 4 (GFR 15-29) Qualified Code(s): N18.4 - Chronic kidney disease, stage 4 (severe); D63.1 - Anemia in chronic kidney disease (6) Hypertension: Code(s): I10 - Essential (primary) hypertension Category: Medical Qualifiers: Hypertension type: primary hypertension Qualified Code(s): I10 - Essential (primary) hypertension Plan His renal functions is stable . C/W lasix to 40 mg daily alternating with 20 mg every other day. His serum K is high. He should be on a low K diet. C/W Kionex. There is no indication for any renal replacement therapy .I gave him 07616 Procrit injections today. He needs to loose weight. Answered all his questions. Follow-up appointment given. Orders: Orders AMB Epoetin Injection Practice Supplied Today D63.1 - Anemia in chronic kidney disease, N18.4 - Chronic kidney disease, stage 4 (severe) Complete Blood Count Auto Diff 3 Weeks D63.1 - Anemia in chronic kidney disease, E11.21 - Type 2 diabetes mellitus with diabetic nephropathy, E87.5 - Hy perkalemia, I10 - Essential (primary) hypertension, N18.4 - Chronic kidney disease, stage 4 (severe), N25.81 - Secondary hyperparathyroidism of renal origin Blood Urea Nitrogen 3 Weeks D63.1 - Anemia in chronic kidney disease, E11.21 - Type 2 diabetes mellitus with diabetic nephropathy, E87.5 - Hyperkalemia, I10 - Essential (primary) hypertension, N18.4 - Chronic kidney disease, stage 4 (severe), N25.81 - Secondary hyperparathyroidism of renal origin Creatinine 3 Weeks D63.1 - Anemia in chronic kidney disease, E11.21 - Type 2 diabetes mellitus with diabetic nephropathy, E87.5 - Hyperkalemia, I10 - Essential (primary) hypertension, N18.4 - Chronic kidney disease, stage 4 (severe), N25.81 - Secondary hyperparathyroidism of renal origin Electrolytes 3 Weeks D63.1 - Anemia in chronic kidney disease, E11.21 - Type 2 diabetes mellitus with diabetic nephropathy, E87.5 - Hyperkalemia, I10 - Essential (primary) hypertension, N18.4 - Chronic kidney disease, stage 4 (severe), N25.81 - Secondary hyperparathyroidism of renal origin Calcium 3 Weeks D63.1 - Anemia in chronic kidney disease, E11.21 - Type 2 diabetes mellitus with diabetic nephropathy, E87.5 - Hyperkalemia, I10 - Essential (primary) hypertension, N18.4 - Chronic kidney disease, stage 4 (severe), N25.81 - Secondary hyperparathyroidism of renal origin Coding Level of Care Code Est Pt Level 4 (52803) Diagnoses Chronic kidney disease, stage 4 (severe) N18.4 Diabetic nephropathy associated with type 2 diabetes mellitus E11.21 Diabetes mellitus type: type 2 Hyperkalemia E87.5 Secondary hyperparathyroidism (of renal origin) N25.81 Anemia in stage 4 chronic kidney disease N18.4; D63.1 Chronic kidney disease stage: stage 4 (GFR 15-29) Primary hypertension I10 Hypertension type: primary hypertension
--- OUTSIDE RECORDS SUMMARY | 2025-03-31 16:02 | XMS_ITS | Patient Health Record ---
Author Organization [facility] [place] Address [address] [facility] [place] [address] Care Team Providers Care Whirley Operator Name Role Phone Raheem García MD Primary Care Provider Unavailab [place] Quach Unavailable [phone] Reason For Referral No Information Medications Medication [...] Problem Acquired hammer toe of right foot (7178401791814 105) Other hammer toe(s) (acquired), right foot (M20.41) Active confirmed Problem Acquired hammer toe of left foot ([id number] 103) Other hammer toe(s) (acquired), left foot (M20.42) Active confirmed Plan Of Treatment Pending Test Test Name Order Date [id number] NAIL, 1-5 01/09/2020 02107- Debride <25 sq cm 01/24/2020 30623 I&D ABSCESS- SIMPLE,SINGLE 020 [id number] NAIL(S) 01/09/2020 Insurance Providers Payer Name Payer Address Payer Phone Subscriber Number Group Number Insured Name Patient Relationship to Insured Coverage Start Date Coverage End Date [employer] Medicare [id number] [address] [address] [place] [id number] Ryan Chauhan Self - patient is the insured Medical (General) History Medical History History ICD Code type II diabetes Kidney disease Measles Mumps Chicken pox Surgical History Surgery Date(Month/Year)
--- OUTSIDE RECORDS SUMMARY | 2025-03-31 16:02 | XMS_ITS | Clinical Summary ---
Author Organization [facility] Address [address] [facility] [address] [place] [address] Phone Care Team Providers Care Supervisor Shipfitters Name Role Phone Joanna Angeles MD Primary Care Provider [phone] Allergies Active Allergy Reactions Criticality Noted Date [...] A1c (%). Testing performed or reported by ~[facility], ~a Service of [facility], ~[address] [place] [address]~ 03/21/2019 2:49 PM EDT us Chris Martínez MD LAB BLOOD ORDERABLES Final Resul t [facility] 3 from Last 3 Months or Most Recently Relevant to Health Maintenance Insurance UHC Medicare UHC Medicare Care Teams Supervisor Shipfitters Relationship Specialty Start Date End Date Joanna Angeles MD [address] [facility] [address] [place] [phone] PCP - General Family Medicine 02/17/23
--- OUTSIDE RECORDS SUMMARY | 2025-03-31 16:02 | XMS_ITS | Encounter Summary ---
Author Organization [facility] Address [address] [facility] [address] [place] [address] Phone Care Team Providers Care Meat Trimmer Name Role Phone Raheem García MD Primary Care Provider [phone] Encounter Details Date Type Department Care Team (Late st Contact Info) Description 09/15/2019 Procedure Pass [facility] Endoscopy Admitting Dept Virtual Department [address] [place] [address] Social History Tobacco Use Types Packs/Day Years [...] on filedocumented in this encounter Care Teams Meat Trimmer Relationship Specialty Start Date End Date Raheem García MD [address] [facility] [address] [place] [address] PCP - General Internal Medicine 08/18/19 documented as of this encounter Additional Source Comments The information contained in this document represents components of the legal health record. It is not the complete legal health record.[facility]
--- OUTSIDE RECORDS SUMMARY | 2025-03-31 16:02 | XMS_ITS | Clinical Summary ---
Author Organization [facility] Address [address] [place] [address] Phone Care Team Providers Care Director Of Video Analytics Name Role Phone Raheem Hurley MD Primary Care Provider [phone] Allergies No known active allergies Medications amitriptyline [...] 1998 ZOSTER VACCINES (2 of 3) 04/20/2017 02/23/2017, 0701/2017 Adult Td,Tdap Booster 07/23/2022 07/23/2012 INFLUENZA VACCINE (#1) 2025 , 04/15/2019, 04/16/2018, Additional history exists COVID-19 VACCINE (3 - 2024- season) 2025 09/14/2020, 08/17/2020 RSV VACCINE (1 - 1-dose 75+ series) 2028 COLONOSCOPY 09/15/2029 09/15/2019 COLORECTAL CANCER SCREENING 09/15/2029 PNEUMOCOCCAL VACCINES (50+ years) Completed 04/15/2019, 03/05/2018, 07/23/2012 SMOKING STATUS SCREENING (Once After 26 Yrs) Completed 09/15/2019 HEPATITIS A [...] 09/15/2019 11:39 AM EST Patient Name: Ryan Waggoner Attending MD:: LULY PAGAN MD Procedure Date: 09/15/2019 11:39 AM Date of : 1955 Age: 64 Admit Type: Outpatient Gender: Male Room: [place] [address] Referring MD: RAHEEM HURLEY Exam Type: Colonoscopy [...] bowel preparation was evaluated using the BBPS (Many Bowel Preparation Scale) with scores of: Right [...] 11:39 AM Procedure Code(s): --- Professional --- 79312, Colonoscopy, flexible; with biopsy, single or multiple --- Technical --- 78409, Colonoscopy, flexible; with biopsy, single or multiple Diagnosis Code(s): --- Professional --- K63.89, Other specified diseases of intestine K52.9, Noninfective gastroenteritis and colitis, unspecified R19.5, Other fecal abnormalities --- Technical --- K63.89, Other specified diseases of intestine K52.9, Noninfective gastroenteritis and colitis, unspecified R19.5, Other fecal abnormalities CPT copyright 2018 [employer]. All rights reserved. The codes documented in this report are preliminary and upon behavior therapist reviewmay be revised to meet current compliance requirements. Procedure Date: 09/15/2019 11:39:[address] [place] [address] Raheem Hurley MD GI PROCEDURE ORDERABLES F inal Result from Last 3 Months or Most Recently Relevant to Health Maintenance Insurance MEDICARE REPLACEMENT MEDICARE REPLACEMENT MEDICARE REPLACEMENT MEDICARE REPLACEMENT MEDICARE REPLACEMENT MEDICARE REPLACEMENT MEDICARE REPLACEMENT Member Subscriber Plan / Payer (Ef fective 2019-Present) Name:Ryan Waggoner Relation to Subscriber:Self Name:Ryan Waggoner Payer ID:[id number] (NAIC) Type:Medicare Address: [place] [address] [place] [address] MEDICARE REPLACEMENT Care Teams Director Of Video Analytics Relationship Specialty Start Date End Date Raheem Hurley MD [address] [place] [phone] PCP - General Internal Medicine 08/18/19 Additional Source Comments The information contained in this document represents components of the legal health record. It is not the complete legal health record.[facility]
--- OUTSIDE RECORDS SUMMARY | 2025-03-31 16:02 | XMS_ITS | Clinical Summary ---
Author Organization [facility] Address [address] [place] [address] Care Team Providers Care Machine Assembler Supervisor Name Role Phone Unavailable Primary Care Provider [...] 06/28/2022 Social Influencers of Health Screening 06/28/2022 Depression Screening 07/27/2024 Diabetes: Annual Urine Albumin-Creatinine Ratio (uACR) 10/26/2024 Diabetes: Blood Sugar Control Test (HGBA1C) 10/26/2024 COVID-19 Vaccine ( season) 2025 Influenza Vaccine (#1) 2025 Diabetes: Annual GFR [...] Documents on File Type Date Recorded Patient Industrial Commercial Groundskeeper Expl anation Health Care Decision (hx) 02/27/2023 HE ALTH CARE PROXY Health Care Decision (hx) 02/27/2023 HE ALTH CARE PROXY Health Care Decision (hx) 02/27/2023 HE ALTH CARE PROXY
--- OUTSIDE RECORDS SUMMARY | 2025-03-31 16:03 | XMS_ITS | Clinical Summary ---
Author Organization [facility] Address [address] [place] [address] Care Team Providers Care Batteryman Name Role Phone Unavailable Primary Care Provider [...] Date Smoking Tobacco: Never Assessed [facility] Utilities Answer Date Recorded In the [...] any time in the past 12 m [facility] [place], were you homeless or living in a assisted (including now)? No 10/21/2024 Sex and Gender [...] Health Maintenance Due Date Last Done Comments Advance Care Planning 1955 Hepatitis C Virus Screening 1955 DTaP/Tdap/Td Vaccines [...] patient's age to complete this topic Insurance [facility] [place] [address] Advance Directives * Full Code (Latest Code Status on File) Date Activated Date Inactivated Comments 10/18/2024 11:07 AM
--- OUTSIDE RECORDS SUMMARY | 2025-03-31 16:03 | XMS_ITS | Encounter Summary ---
Author Organization [facility] Address [address] [place] [address] Phone Care Team Providers Care Obiee Consultant Name Role Phone Joanna Angeles MD Primary Care Provider [phone] Reason for Visit * Reason Comments Med Refill Encounter Details Date Type Department Care Team ([facility] st Contact Info) Description 06/09/2023 Refill [facility] [address] [place] [address] Ahmet Oviedo MD [address] [facility] [address] [place] [address] Social History Tobacco Use Types [...] on filedocumented in this encounter Care Teams Obiee Consultant Relationship Specialty Start Date End Date Joanna Angeles MD [address] [facility] [address] [place] [phone] PCP - General Family Medicine 02/17/23 documented as of this encounter
--- OUTSIDE RECORDS SUMMARY | 2025-03-31 16:03 | XMS_ITS | Encounter Summary ---
Author Organization [facility] Address [address] [facility] [address] [place] [address] Phone Care Team Providers Care Esters And Emulsifiers Supervisor Name Role Phone Raheem García MD Primary Care Provider [phone] Encounter Details Date Type Department Care Team (Late st Contact Info) Description 06/01/2017 Procedure Pass [facility] Endoscopy Admitting Dept Virtual Department [address] [place] [address] Social History Tobacco Use Types Packs/Day Years [...] on filedocumented in this encounter Care Teams Esters And Emulsifiers Supervisor Relationship Specialty Start Date End Date Raheem García MD [address] [facility] [address] [place] [phone] PCP - General Internal Medicine 08/18/19 documented as of this encounter Additional Source Comments The information contained in this document represents components of the legal health record. It is not the complete legal health record.[facility]
[2025-03-31 16:04] VITALS: BP 112/64; PULSE 75; O2SAT 93; BMI 28.8
== END 2025-03-31 16:24 | disposition home or self-care (01) ==
PROVIDERS: PCP Family Medicine; Visit Provider Internal Medicine Nephrology
DX: E11.21 Type 2 diabetes mellitus with diabetic nephropathy (principal); N18.4 Chronic kidney disease, stage 4 (severe); E87.5 Hyperkalemia; N25.81 Secondary hyperparathyroidism of renal origin; D63.1 Anemia in chronic kidney disease; I12.9 Hypertensive chronic kidney disease with stage 1 through stage 4 chronic kidney disease, or unspecified chronic kidney disease
CPT/HCPCS: 99214

== ENCOUNTER → 2025-03-31 15:59 | Outpatient (BNVA) | payer MEDICARE, SELFPAY | PROVIDERS: PCP Family Medicine; Visit Provider Internal Medicine Nephrology | DX: E11.21 Type 2 diabetes mellitus with diabetic nephropathy (principal); I12.9 Hypertensive chronic kidney disease with stage 1 through stage 4 chronic kidney disease, or unspecified chronic kidney disease; N18.4 Chronic kidney disease, stage 4 (severe); D63.1 Anemia in chronic kidney disease; E78.5 Hyperlipidemia, unspecified; N25.81 Secondary hyperparathyroidism of renal origin | CPT/HCPCS: 96372; 99212; Q5106 ==

== ENCOUNTER 2025-04-20 13:57 | Outpatient (REF) | payer MEDICARE, SELFPAY ==
[2025-04-20 16:00] LABS: MANUAL DIFF FLAG NO
[2025-04-20 16:03] LABS: Hematocrit 26.3 % (42.0-52.0); Hemoglobin 8.2 g/dl (14.0-18.0); Imm Gran Abs Auto 0.17 X10*3/uL (0.00-0.03); Imm Gran Pct Auto 2.1 % (0.0-0.4); Lymphocytes Absolute Auto 1.8 X10*3/uL (1.2-4.9); Mean Corpuscular HGB Conc 31.2 g/dl (31.0-36.0); Mean Corpuscular Hemoglobin 28.7 pg (27.0-33.0); Mean Corpuscular Volume 92.0 fL (80.0-98.0); NRBC Abs Auto 0.000 X10*3/uL (0.0-0.012); NRBC Pct Auto 0.0 /100WBC (0.0-0.2); Platelet Count 256 X10*3/uL (160-400); Red Blood Count 2.86 X10*6/uL (4.60-5.80); White Blood Count 8.0 X10*3/uL (4.8-10.8)
[2025-04-20 16:17] LABS: Anion Gap 16 (12-20); Blood Urea Nitrogen 79 mg/dL (9-16); Calcium 7.3 mg/dL (8.4-10.2); Carbon Dioxide 23 mmol/L (22-29); Chloride 109 mmol/L (96-108); Estimated Glomerular Filt Rate 9; Potassium 5.0 mmol/L (3.3-5.1); Sodium 143 mmol/L (135-145)
--- OUTSIDE RECORDS SUMMARY | 2025-04-20 18:28 | XMS_ITS | Encounter Summary ---
Author Organization [facility] Address [address] [facility] [address] [place] [address] Phone Care Team Providers Care Sales Representative Health Insurance Name Role Phone Raheem García MD Primary Care Provider [phone] Encounter Details Date Type Department Care Team (Late st Contact Info) Description 09/15/2019 Procedure Pass [facility] Endoscopy Admitting Dept Virtual Department [address] [place] [address] Social History Tobacco Use Types Packs/Day Years [...] on filedocumented in this encounter Care Teams Sales Representative Health Insurance Relationship Specialty Start Date End Date Raheem García MD [address] [facility] [address] [place] [address] PCP - General Internal Medicine 08/18/19 documented as of this encounter Additional Source Comments The information contained in this document represents components of the legal health record. It is not the complete legal health record.[facility]
--- OUTSIDE RECORDS SUMMARY | 2025-04-20 18:28 | XMS_ITS | Encounter Summary ---
Author Organization [facility] Address [address] [place] [address] Phone Care Team Providers Care Electric Motor Repairman Name Role Phone Joanna Angeles MD Primary Care Provider Reason for Visit * Reason Comments Med Refill Encounter Details Date Type Department Care Team ([facility] st Contact Info) Description 06/09/2023 Refill [facility] [address] [place] [address] Ahmet Oviedo MD [address] [facility] [address] [place] [address] Social History Tobacco Use Types [...] on filedocumented in this encounter Care Teams Electric Motor Repairman Relationship Specialty Start Date End Date Joanna Angeles MD [address] [facility] [address] [place] [phone] PCP - General Family Medicine 02/17/23 documented as of this encounter
--- OUTSIDE RECORDS SUMMARY | 2025-04-20 18:28 | XMS_ITS | Encounter Summary ---
Author Organization [facility] Address [address] [facility] [address] [place] [address] Phone Care Team Providers Care Insurance Claims Adjuster Name Role Phone Raheem García MD Primary Care Provider [phone] Encounter Details Date Type Department Care Team (Late st Contact Info) Description 06/01/2017 Procedure Pass [facility] Endoscopy Admitting Dept Virtual Department [address] [place] [address] Social History Tobacco Use Types Packs/Day Years [...] on filedocumented in this encounter Care Teams Insurance Claims Adjuster Relationship Specialty Start Date End Date Raheem García MD [address] [facility] [address] [place] [phone] PCP - General Internal Medicine 08/18/19 documented as of this encounter Additional Source Comments The information contained in this document represents components of the legal health record. It is not the complete legal health record.[facility]
--- OUTSIDE RECORDS SUMMARY | 2025-04-20 18:28 | XMS_ITS | Clinical Summary ---
Author Organization [facility] Address [address] [facility] [address] [place] [address] Phone Care Team Providers Care Environmental Field Team Member Name Role Phone Joanna Angeles MD Primary Care Provider [phone] Allergies Active Allergy Reactions Criticality Noted Date [...] Foot Exam 08/24/2020 Influenza Vaccine (#1) 2025 4, 06/12/2022, 06/18/2021, Additional history exists Pneumococcal Vaccine: 50+ Years [...] A1c (%). Testing performed or reported by ~[facility], ~a Service of [facility], ~[address] [place] [address]~ 03/21/2019 2:49 PM EDT us Chris Martínez MD LAB BLOOD ORDERABLES Final Resul t [facility] 3 from Last 3 Months or Most Recently Relevant to Health Maintenance Insurance UHC Medicare UHC Medicare Care Teams Environmental Field Team Member Relationship Specialty Start Date End Date Joanna Angeles MD [address] [facility] [address] [place] [phone] PCP - General Family Medicine 02/17/23
--- OUTSIDE RECORDS SUMMARY | 2025-04-20 18:28 | XMS_ITS | Clinical Summary ---
Author Organization [facility] Address [address] [place] [address] Care Team Providers Care Garnett Room Worker Name Role Phone Unavailable Primary Care Provider [...] Years Used Date Smoking Tobacco: Never Assessed [facility] Utilities Answer Date Recorded In the [...] time in the past 12 m [facility] [place], were you homeless or living in a fpc (including now)? No 10/21/2024 Sex and Gender [...] 60-74 years 1-dose series) 2013 Influenza Vaccine 02/24/2025 06/12/2022, , 06/04/2020, Additional history exists COVID-19 Vaccine ( season) 2025 06/23/2021, 09/14/2020, 08/17/2020 Hepatitis B Vaccines Aged Out No long er eligible based on patient's age to complete this topic Insurance [facility] MEDICARE Advance Directives * Full Code (Latest Code Status on File) Date Activated Date Inactivated Comments 10/18/2024 11:07 AM
--- OUTSIDE RECORDS SUMMARY | 2025-04-20 18:28 | XMS_ITS | Clinical Summary ---
Author Organization [facility] Address [address] [facility] [address] [place] [address] Phone Care Team Providers Care Wire Drawer Name Role Phone Raheem Hurley MD Primary Care Provider [phone] Allergies No known active allergies Medications amitriptyline [...] 64 Admit Type: Outpatient Gender: Male Room: [place] [address] Referring MD: RAHEEM HURLEY Exam Type: Colonoscopy [...] bowel preparation was evaluated using the BBPS ([place] Bowel Preparation Scale) with scores of: Right [...] 11:39 AM Procedure Code(s): --- Professional --- 35807, Colonoscopy, flexible; with biopsy, single or multiple --- Technical --- 87846, Colonoscopy, flexible; with biopsy, single or multiple Diagnosis Code(s): --- Professional --- K63.89, Other specified diseases of intestine K52.9, Noninfective gastroenteritis and colitis, unspecified R19.5, Other fecal abnormalities --- Technical --- K63.89, Other specified diseases of intestine K52.9, Noninfective gastroenteritis and colitis, unspecified R19.5, Other fecal abnormalities CPT copyright 2018 [employer]. All rights reserved. The codes documented in this report are preliminary and upon inpatient coder reviewmay be revised to meet current compliance requirements. Procedure Date: 09/15/2019 11:39:[address] [place] [address] Raheem Hurley MD GI PROCEDURE ORDERABLES F inal Result from Last 3 Months or Most Recently Relevant to Health Maintenance Insurance [place] [address] MEDICARE REPLACEMENT MEDICARE REPLACEMENT MEDICARE REPLACEMENT MEDICARE REPLACEMENT MEDICARE REPLACEMENT MEDICARE REPLACEMENT Member Subscriber Plan / Payer (Ef fective 2019-Present) Name:Ryan Waggoner Relation to Subscriber:Self Name:Ryan Waggoner Payer ID:[id number] (NAIC) Type:Medicare Address: [place] [address] [place] [address] MEDICARE REPLACEMENT Care Teams Wire Drawer Relationship Specialty Start Date End Date Raheem Hurley MD [address] [place] [phone] PCP - General Internal Medicine 08/18/19 Additional Source Comments The information contained in this document represents components of the legal health record. It is not the complete legal health record.[facility]
--- OUTSIDE RECORDS SUMMARY | 2025-04-20 18:28 | XMS_ITS | Patient Health Record ---
Author Organization [facility] Address [address] [facility] [place] [address] Care Team Providers Care Capacity Planning Manager Name Role Phone Raheem García MD Primary Care Provider Unavailab Virginia Quach Unavailable [phone] Reason For Referral No Information Medications Medication [...] Problem Acquired hammer toe of right foot (7328602409217 105) Other hammer toe(s) (acquired), right foot (M20.41) Active confirmed Problem Acquired hammer toe of left foot (2606963911724 103) Other hammer toe(s) (acquired), left foot (M20.42) Active confirmed Plan Of Treatment Pending Test Test Name Order Date [id number] NAIL, 1-5 01/09/2020 24319- Debride <25 sq cm 01/24/2020 81281 I&D ABSCESS- SIMPLE,SINGLE 020 27717-EUTW NAIL(S) 01/09/2020 Insurance Providers Payer Name Payer Address Payer Phone Subscriber Number Group Number Insured Name Patient Relationship to Insured Coverage Start Date Coverage End Date [employer] Medicare [id number] [address] [address] [place] [address] [id number] Ryan Chauhan Self - patient is the insured Medical (General) History Medical History History ICD Code type II diabetes Kidney disease Measles Mumps Chicken pox Surgical History Surgery Date(Month/Year)
== END 2025-04-20 13:58 | disposition home or self-care (01) ==
LOC: HO.HMGCLDS 13:57
PROVIDERS: PCP Family Medicine; Visit Provider Internal Medicine Nephrology
DX: E11.22 Type 2 diabetes mellitus with diabetic chronic kidney disease (principal); D63.1 Anemia in chronic kidney disease; I12.9 Hypertensive chronic kidney disease with stage 1 through stage 4 chronic kidney disease, or unspecified chronic kidney disease; N25.81 Secondary hyperparathyroidism of renal origin; N18.4 Chronic kidney disease, stage 4 (severe); E87.5 Hyperkalemia
CPT/HCPCS: 36415; 80051; 82310; 82565; 84520; 85025

== ENCOUNTER 2025-04-21 16:04 | Outpatient (AMB) | payer MEDICARE, SELFPAY ==
[2025-04-21 16:11] VITALS: BP 104/50; BMI 29.2
--- NOTE | 2025-04-21 16:11 | HO.NEPHOV ---
Vital Signs 04/21/25 16:11 Height 5 ft 11 in Weight 209 lb 6 oz BMI 29.2 BP 104/50 L Blood Pressure Location Rt brachial Position Sitting Intake Visit Reasons: 3wk Retacrit f/u w/labs-Conf Flame Cutting Machine Operator Helper Required: No Accompanied by: Self / Same As Patient Allergies No Known Allergies Allergy (Verified 04/21/25 16:11) HPI Comments Details: Ryan was seen in F/U for advanced CKD. He has H/O acute kidney injury on 2 separate occasions in the past needing hemodialysis on both those times. He has biopsy-proven diabetic nephropathy. His blood sugar control has not been optimal . He follows up with an inventory control assistant. His blood pressure has been at goal. His edema is resolved. His appetite is good and does not have any hypoglycemia. He has no urinary symptoms. He denied taking nonsteroidal anti-inflammatories. His serum creatinine is stable .He denies uremic symptoms. [facility] Medical History Proteinuria Type 2 diabetes mellitus with diabetic nephropathy Hypertension Acute kidney injury Review of Systems Const All systems reviewed & are unremarkable except as noted in HPI and below Physical Exam Vital Signs: Last Vital Signs BP 104/50 L 04/21/25 16:11 BMI result Body Mass Index 29.2 Const General: comfortable and no acute distress Orientation/consciousness: patient oriented x3 HEENT Head: Yes normocephalic Mouth: Normal oral and palatal mucosa present Eyes EOM: EOMs intact bilaterally Neck Neck: Yes supple Resp Auscultation: clear to auscultation bilaterally Cardio Jugular venous distension: no JVD Rate: regular rate GI Palpation (GI): Soft to palpation Auscultation: normal bowel sounds General: Yes no CVA tenderness Back/Spine/Pelvis Back: no CVA tenderness Skin General skin exam: no rashes or lesions noted Neuro General: patient oriented x3 and moves all extremities Extrem General: Yes no pedal edema Office Meds epoetin maranda-epbx 10,000 unit/mL injection solution Performing Provider: Chris Martínez MD [facility] Administered by: Chris Martínez MD on 04/21/25 16:24 Dose Route Admin Location Dispensed Lot Number Expiration Date [facility] Press Catcher 20,000 unit subcut RUE 2 mL [id number] 08/27/26 3095-0146-48 [employer] Total Dispensed Waste 2 mL 0 % Results Reviewed Nephrology Results: Hgb, (14.0-18.0) 8.2 g/dl L 04/20/25 WBC, (4.8-10.8) 8.0 X10*3/uL 04/20/25 Plt Count, (160-400) 256 X10*3/uL 04/20/25 Sodium, (135-145) 143 mmol/L 04/20/25 Potassium, (3.3-5.1) 5.0 mmol/L 04/20/25 Chloride, (96-108) 109 mmol/L H 04/20/25 Carbon Dioxide, (22-29) 23 mmol/L 04/20/25 BUN, (9-16) 79 mg/dL H 04/20/25 Creatinine, (0.5-1.4) 6.34 mg/dL H* 04/20/25 Calcium, (8.4-10.2) 7.3 mg/dL L Δ 04/20/25 Assessment & Plan Assessment & Plan (1) Anemia in chronic kidney disease: Code(s): N18.9 - Chronic kidney disease, unspecified; D63.1 - Anemia in chronic kidney disease Category: Medical Qualifiers: Chronic kidney disease stage: stage 4 (GFR 15-29) Qualified Code(s): N18.4 - Chronic kidney disease, stage 4 (severe); D63.1 - Anemia in chronic kidney disease (2) Hypertension: Code(s): I10 - Essential (primary) hypertension Category: Medical Qualifiers: Hypertension type: primary hypertension Qualified Code(s): I10 - Essential (primary) hypertension (3) Secondary hyperparathyroidism (of renal origin): Code(s): N25.81 - Secondary hyperparathyroidism of renal origin Category: Medical (4) Diabetic nephropathy: Code(s): E11.21 - Type 2 diabetes mellitus with diabetic nephropathy Category: Medical Qualifiers: Diabetes mellitus type: type 2 Qualified Code(s): E11.21 - Type 2 diabetes mellitus with diabetic nephropathy Plan His renal functions is stable . C/W lasix to 40 mg daily alternating with 20 mg every other day. His serum K is high. He should be on a low K diet. C/W Kionex. There is no indication for any renal replacement therapy .I gave him 31014 Procrit injections today. He needs to loose weight. Answered all his questions. Follow-up appointment given. Orders: Orders Complete Blood Count Auto Diff 4 Weeks D63.1 - Anemia in chronic kidney disease, E11.21 - Type 2 diabetes mellitus with diabetic nephropathy, I10 - Essential (primary) hypertension, N18.4 - Chronic kidney disease, stage 4 (severe), N25.81 - Secondary hyperparathyroidism of renal origin Blood Urea Nitrogen 4 Weeks D63.1 - Anemia in chronic kidney disease, E11.21 - Type 2 diabetes mellitus with diabetic nephropathy, I10 - Essential (primary) hypertension, N18.4 - Chronic kidney disease, stage 4 (severe), N25.81 - Secondary hyperparathyroidism of renal origin Creatinine 4 Weeks D63.1 - Anemia in chronic kidney disease, E11.21 - Type 2 diabetes mellitus with diabetic nephropathy, I10 - Essential (primary) hypertension, N18.4 - Chronic kidney disease, stage 4 (severe), N25.81 - Secondary hyperparathyroidism of renal origin Phosphorus 4 Weeks D63.1 - Anemia in chronic kidney disease, E11.21 - Type 2 diabetes mellitus with diabetic nephropathy, I10 - Essential (primary) hypertension, N18.4 - Chronic kidney disease, stage 4 (severe), N25.81 - Secondary hyperparathyroidism of renal origin Vitamin D 25-OH Total 4 Weeks D63.1 - Anemia in chronic kidney disease, E11.21 - Type 2 diabetes mellitus with diabetic nephropathy, I10 - Essential (primary) hypertension, N18.4 - Chronic kidney disease, stage 4 (severe), N25.81 - Secondary hyperparathyroidism of renal origin AMB Epoetin Injection Practice Supplied Today D63.1 - Anemia in chronic kidney disease, N18.4 - Chronic kidney disease, stage 4 (severe) Ferritin 4 Weeks D63.1 - Anemia in chronic kidney disease, E11.21 - Type 2 diabetes mellitus with diabetic nephropathy, I10 - Essential (primary) hypertension, N18.4 - Chronic kidney disease, stage 4 (severe), N25.81 - Secondary hyperparathyroidism of renal origin IRON PROFILE 4 Weeks D63.1 - Anemia in chronic kidney disease, E11.21 - Type 2 diabetes mellitus with diabetic nephropathy, I10 - Essential (primary) hypertension, N18.4 - Chronic kidney disease, stage 4 (severe), N25.81 - Secondary hyperparathyroidism of renal origin Electrolytes 4 Weeks D63.1 - Anemia in chronic kidney disease, E11.21 - Type 2 diabetes mellitus with diabetic nephropathy, I10 - Essential (primary) hypertension, N18.4 - Chronic kidney disease, stage 4 (severe), N25.81 - Secondary hyperparathyroidism of renal origin Calcium 4 Weeks D63.1 - Anemia in chronic kidney disease, E11.21 - Type 2 diabetes mellitus with diabetic nephropathy, I10 - Essential (primary) hypertension, N18.4 - Chronic kidney disease, stage 4 (severe), N25.81 - Secondary hyperparathyroidism of renal origin Parathyroid Hormone Intact 4 Weeks D63.1 - Anemia in chronic kidney disease, E11.21 - Type 2 diabetes mellitus with diabetic nephropathy, I10 - Essential (primary) hypertension, N18.4 - Chronic kidney disease, stage 4 (severe), N25.81 - Secondary hyperparathyroidism of renal origin Coding Level of Care Code Est Pt Level 4 (75766) Diagnoses Anemia in stage 4 chronic kidney disease N18.4; D63.1 Chronic kidney disease stage: stage 4 (GFR 15-29) Primary hypertension I10 Hypertension type: primary hypertension Secondary hyperparathyroidism (of renal origin) N25.81 Diabetic nephropathy associated with type 2 diabetes mellitus E11.21 Diabetes mellitus type: type 2
--- OUTSIDE RECORDS SUMMARY | 2025-04-21 16:13 | XMS_ITS | Clinical Summary ---
Author Organization [facility] Address [address] [facility] [address] [place] [address] Phone Care Team Providers Care Demonstrator Knitting Name Role Phone Joanna Angeles MD Primary Care Provider Allergies Active Allergy Reactions Criticality Noted Date [...] A1c (%). Testing performed or reported by ~[facility], ~a Service of [facility], ~[address] [place] [address]~ 03/21/2019 2:49 PM EDT us Chris Martínez MD LAB BLOOD ORDERABLES Final Resul t [facility] 3 from Last 3 Months or Most Recently Relevant to Health Maintenance Insurance UHC Medicare UHC Medicare Care Teams Demonstrator Knitting Relationship Specialty Start Date End Date Joanna Angeles MD [address] [facility] [address] [place] [phone] PCP - General Family Medicine 02/17/23
--- OUTSIDE RECORDS SUMMARY | 2025-04-21 16:13 | XMS_ITS | Clinical Summary ---
Author Organization [facility] Address [address] [facility] [address] [place] [address] Phone Care Team Providers Care Aids Nurse Name Role Phone Raheem Hurley MD Primary Care Provider [phone] Allergies No known active allergies Medications amitriptyline [...] 66 Admit Type: Outpatient Gender: Male Room: [place] [address] Referring MD: RAHEEM HURLEY Exam Type: Colonoscopy [...] bowel preparation was evaluated using the BBPS ([place] Bowel Preparation Scale) with scores of: Right [...] 11:39 AM Procedure Code(s): --- Professional --- 36617, Colonoscopy, flexible; with biopsy, single or multiple --- Technical --- 45629, Colonoscopy, flexible; with biopsy, single or multiple Diagnosis Code(s): --- Professional --- K63.89, Other specified diseases of intestine K52.9, Noninfective gastroenteritis and colitis, unspecified R19.5, Other fecal abnormalities --- Technical --- K63.89, Other specified diseases of intestine K52.9, Noninfective gastroenteritis and colitis, unspecified R19.5, Other fecal abnormalities CPT copyright 2018 [employer]. All rights reserved. The codes documented in this report are preliminary and upon furnace repairer reviewmay be revised to meet current compliance requirements. Procedure Date: 09/15/2019 11:39:[address] [place] [address] Raheem Hurley MD GI PROCEDURE ORDERABLES F inal Result from Last 3 Months or Most Recently Relevant to Health Maintenance Insurance MEDICARE REPLACEMENT MEDICARE REPLACEMENT MEDICARE REPLACEMENT MEDICARE REPLACEMENT MEDICARE REPLACEMENT MEDICARE REPLACEMENT MEDICARE REPLACEMENT Member Subscriber Plan / Payer (Ef fective 2019-Present) Name:Ryan Waggoner Relation to Subscriber:Self Name:Ryan Waggoner Payer ID:[id number] (NAIC) Type:Medicare Address: [place] [id number] [place] [address] MEDICARE REPLACEMENT Care Teams Aids Nurse Relationship Specialty Start Date End Date Raheem Hurley MD [address] [place] [phone] PCP - General Internal Medicine 08/18/19 Additional Source Comments The information contained in this document represents components of the legal health record. It is not the complete legal health record.[facility]
--- OUTSIDE RECORDS SUMMARY | 2025-04-21 16:13 | XMS_ITS | Clinical Summary ---
Author Organization [facility] Address [address] [place] [address] Care Team Providers Care Dater Assembler Name Role Phone Unavailable Primary Care Provider [...] Years Used Date Smoking Tobacco: Never Assessed [facility] Utilities Answer Date Recorded In the [...] were you homeless or living in a detention (including now)? No 10/21/2024 Sex and Gender [...] patient's age to complete this topic Insurance [facility] MEDICARE Advance Directives * Full Code (Latest Code Status on File) Date Activated Date Inactivated Comments 10/18/2024 11:07 AM
--- OUTSIDE RECORDS SUMMARY | 2025-04-21 16:13 | XMS_ITS | Encounter Summary ---
Author Organization [facility] Address [address] [facility] [address] [place] [address] Phone Care Team Providers Care Welding Machine Feeder Name Role Phone Raheem García MD Primary Care Provider [phone] Encounter Details Date Type Department Care Team (Late st Contact Info) Description 09/15/2019 Procedure Pass [facility] Endoscopy Admitting Dept Virtual Department [address] [place] [address] Social History Tobacco Use Types Packs/Day Years [...] on filedocumented in this encounter Care Teams Welding Machine Feeder Relationship Specialty Start Date End Date Raheem García MD [address] [facility] [address] [place] [address] PCP - General Internal Medicine 08/18/19 documented as of this encounter Additional Source Comments The information contained in this document represents components of the legal health record. It is not the complete legal health record.[facility]
--- OUTSIDE RECORDS SUMMARY | 2025-04-21 16:13 | XMS_ITS | Clinical Summary ---
Author Organization [facility] Address [address] [place] [address] Care Team Providers Care Seed Yeast Operator Name Role Phone Unavailable Primary Care [...] Documents on File Type Date Recorded Patient Cloak Room Attendant Expl anation Health Care Decision (hx) 02/27/2023 [facility] AL[facility] CARE PROXY Health Care Decision (hx) 02/27/2023 HE ALTH CARE PROXY Health Care Decision (hx) 02/27/2023 HE ALTH CARE PROXY
--- OUTSIDE RECORDS SUMMARY | 2025-04-21 16:13 | XMS_ITS | Encounter Summary ---
Author Organization [facility] Address [address] [facility] [address] [place] [address] Phone Care Team Providers Care Knife Edger Name Role Phone Raheem García MD Primary Care Provider [phone] Encounter Details Date Type Department Care Team (Late st Contact Info) Description 06/01/2017 Procedure Pass [facility] Endoscopy Admitting Dept Virtual Department [address] [place] [address] Social History Tobacco Use Types Packs/Day Years [...] on filedocumented in this encounter Care Teams Knife Edger Relationship Specialty Start Date End Date Raheem García MD [address] [facility] [address] [place] [address] PCP - General Internal Medicine 08/18/19 documented as of this encounter Additional Source Comments The information contained in this document represents components of the legal health record. It is not the complete legal health record.[facility]
--- OUTSIDE RECORDS SUMMARY | 2025-04-21 16:13 | XMS_ITS | Encounter Summary ---
Author Organization [facility] Address [address] [place] [address] Phone Care Team Providers Care Target Trimmer Name Role Phone Joanna Angeles MD Primary Care Provider Reason for Visit * Reason Comments Med Refill Encounter Details Date Type Department Care Team ([facility] st Contact Info) Description 06/09/2023 Refill [facility] [address] [place] [address] Ahmet Oviedo MD [address] [facility] [address] [place] [address] Social History Tobacco Use Types [...] on filedocumented in this encounter Care Teams Target Trimmer Relationship Specialty Start Date End Date Joanna Angeles MD [address] [facility] [address] [place] [phone] PCP - General Family Medicine 02/17/23 documented as of this encounter
--- OUTSIDE RECORDS SUMMARY | 2025-04-21 16:13 | XMS_ITS | Patient Health Record ---
Author Organization [facility]ana [facility] Address [address] [facility] [place] [address] Care Team Providers Care School Business Manager Name Role Phone Raheem García MD Primary Care Provider Unavailab [place] Quach Unavailable [phone] Reason For Referral No Information Medications Medication [...] Problem Acquired hammer toe of right foot (4078812300353 105) Other hammer toe(s) (acquired), right foot (M20.41) Active confirmed Problem Acquired hammer toe of left foot (5151829219922 103) Other hammer toe(s) (acquired), left foot (M20.42) Active confirmed Plan Of Treatment Pending Test Test Name Order Date [id number] NAIL, 1-5 01/09/2020 04360- Debride <25 sq cm 01/24/2020 15565 I&D ABSCESS- SIMPLE,SINGLE 020 [id number] NAIL(S) 01/09/2020 Insurance Providers Payer Name Payer Address Payer Phone Subscriber Number Group Number Insured Name Patient Relationship to Insured Coverage Start Date Coverage End Date [employer] Medicare [id number] [address] [address] [place] [address] [id number] Ryan Chauhan Self - patient is the insured Medical (General) History Medical History History ICD Code type II diabetes Kidney disease Measles Mumps Chicken pox Surgical History Surgery Date(Month/Year)
== END 2025-04-21 16:31 | disposition home or self-care (01) ==
LOC: HO.HKA 16:05
PROVIDERS: PCP Family Medicine; Visit Provider Internal Medicine Nephrology
DX: I12.9 Hypertensive chronic kidney disease with stage 1 through stage 4 chronic kidney disease, or unspecified chronic kidney disease (principal); N18.4 Chronic kidney disease, stage 4 (severe); D63.1 Anemia in chronic kidney disease; N25.81 Secondary hyperparathyroidism of renal origin; E11.21 Type 2 diabetes mellitus with diabetic nephropathy
CPT/HCPCS: 99214

== ENCOUNTER → 2025-04-21 16:04 | Outpatient (BNVA) | payer MEDICARE, SELFPAY | PROVIDERS: PCP Family Medicine; Visit Provider Internal Medicine Nephrology | DX: I12.9 Hypertensive chronic kidney disease with stage 1 through stage 4 chronic kidney disease, or unspecified chronic kidney disease (principal); N18.4 Chronic kidney disease, stage 4 (severe); D63.1 Anemia in chronic kidney disease; N25.81 Secondary hyperparathyroidism of renal origin; E11.21 Type 2 diabetes mellitus with diabetic nephropathy | CPT/HCPCS: 96372; 99212; Q5106 ==

== ENCOUNTER 2025-05-22 14:14 | Outpatient (REF) | payer MEDICARE, SELFPAY ==
[2025-05-22 16:06] LABS: MANUAL DIFF FLAG NO
[2025-05-22 16:23] LABS: Hematocrit 26.9 % (42.0-52.0); Hemoglobin 8.2 g/dl (14.0-18.0); Imm Gran Abs Auto 0.18 X10*3/uL (0.00-0.03); Imm Gran Pct Auto 2.1 % (0.0-0.4); Lymphocytes Absolute Auto 1.3 X10*3/uL (1.2-4.9); Mean Corpuscular HGB Conc 30.5 g/dl (31.0-36.0); Mean Corpuscular Hemoglobin 28.6 pg (27.0-33.0); Mean Corpuscular Volume 93.7 fL (80.0-98.0); NRBC Abs Auto 0.000 X10*3/uL (0.0-0.012); NRBC Pct Auto 0.0 /100WBC (0.0-0.2); Platelet Count 235 X10*3/uL (160-400); Red Blood Count 2.87 X10*6/uL (4.60-5.80); White Blood Count 8.5 X10*3/uL (4.8-10.8)
[2025-05-22 16:50] LABS: Ferritin 171 ng/mL (20-250)
[2025-05-22 16:53] LABS: Parathyroid Hormone Intact 947.5 pg/mL (8.7-77.1)
[2025-05-22 17:14] LABS: Anion Gap 15 (12-20); Blood Urea Nitrogen 68 mg/dL (9-16); Calcium 8.0 mg/dL (8.4-10.2); Carbon Dioxide 20 mmol/L (22-29); Chloride 115 mmol/L (96-108); Estimated Glomerular Filt Rate 10; Iron 53 mcg/dL (45-160); Percent Iron Saturation 25 % (15-50); Potassium 4.9 mmol/L (3.3-5.1); Sodium 145 mmol/L (135-145); Total Iron Binding Capacity 208 mcg/dL (228-428); Unsaturated Iron Binding 155 ug/dL
--- OUTSIDE RECORDS SUMMARY | 2025-05-22 17:53 | XMS_ITS | Patient Health Record ---
Author Organization [facility] [place] Address [address] [facility] [place] [address] Care Team Providers Care Operator Bearer Systems Name Role Phone Raheem García MD Primary Care Provider Unavailab [place] Quach Unavailable [phone] Reason For Referral No Information Medications Medication [...] Problem Acquired hammer toe of right foot (0794663228683 105) Other hammer toe(s) (acquired), right foot (M20.41) Active confirmed Problem Acquired hammer toe of left foot (3185967866976 103) Other hammer toe(s) (acquired), left foot (M20.42) Active confirmed Plan Of Treatment Pending Test Test Name Order Date [id number] NAIL, 1-5 01/09/2020 47721- Debride <25 sq cm 01/24/2020 51440 I&D ABSCESS- SIMPLE,SINGLE 020 [id number] NAIL(S) 01/09/2020 Insurance Providers Payer Name Payer Address Payer Phone Subscriber Number Group Number Insured Name Patient Relationship to Insured Coverage Start Date Coverage End Date [employer] Medicare [id number] [address] [address] [place] [address] [id number] Ryan Chauhan Self - patient is the insured Medical (General) History Medical History History ICD Code type II diabetes Kidney disease Measles Mumps Chicken pox Surgical History Surgery Date(Month/Year)
--- OUTSIDE RECORDS SUMMARY | 2025-05-22 17:53 | XMS_ITS | Encounter Summary ---
Author Organization [facility] Address [address] [facility] [address] [place] [address] Phone Care Team Providers Care Contact Representative Name Role Phone Raheem García MD Primary Care Provider [phone] Encounter Details Date Type Department Care Team (Late st Contact Info) Description 06/01/2017 Procedure Pass [facility] Endoscopy Admitting Dept Virtual Department [address] [place] [address] Social History Tobacco Use Types Packs/Day Years [...] on filedocumented in this encounter Care Teams Contact Representative Relationship Specialty Start Date End Date Raheem García MD [address] [facility] [address] [place] [address] PCP - General Internal Medicine 08/18/19 documented as of this encounter Additional Source Comments The information contained in this document represents components of the legal health record. It is not the complete legal health record.[facility]
--- OUTSIDE RECORDS SUMMARY | 2025-05-22 17:53 | XMS_ITS | Clinical Summary ---
Author Organization [facility] Address [address] [place] [address] Care Team Providers Care Gallery Manager Name Role Phone Unavailable Primary Care [...] Years Used Date Smoking Tobacco: Never Assessed [facility] Utilities Answer Date Recorded In [...] any time in the past 12 m [facility], were you homeless or living in a longterm (including now)? No 10/21/2024 Sex and Gender [...] 1955 DTaP/Tdap/Td Vaccines (1 - Tdap) 1972 Colonoscopy 1998 Pneumococcal Vaccines 50+ (1 of 1 - PCV) 2003 RSV Vaccine 50 years and older and Patients (1 - Risk 50-74 years 1-dose series) 2003 Zoster (Shingles) Vaccine (1 of 2) 2003 Influenza Vaccine 02/24/2025 06/12/2022, , 06/04/2020, Additional history exists COVID-19 Vaccine ( season) 2025 06/23/2021, 09/14/2020, 08/17/2020 Hepatitis B Vaccines Aged Out No long er eligible based on patient's age to complete this topic Insurance [facility] [address] Advance Directives * Full Code (Latest Code Status on File) Date Activated Date Inactivated Comments 10/18/2024 11:07 AM
--- OUTSIDE RECORDS SUMMARY | 2025-05-22 17:53 | XMS_ITS | Clinical Summary ---
Author Organization [facility] Address [address] [place] [address] Care Team Providers Care Urologic Nurse Name Role Phone Unavailable Primary Care Provider [...] Date Last Done Comments Colorectal Cancer Screening: Colonoscopy 1953 Diabetes: Annual Foot Exam 1963 Diabetes: Annual Retina Eye Exam 1963 DTaP,Tdap,and Td Vaccines (1 - Tdap) 1972 Pneumococcal Vaccine: 50+ Years (1 of 1 - PCV) 2003 RSV Immunization Adult Patients (1 - Risk 50-74 years 1-dose series) 2003 Zoster Vaccines (1 of 2) 2003 Abdominal Aortic Aneurysm (AAA) Screen 06/28/2022 Cholesterol Screening (Lipid Panel) 06/28/2022 Falls Risk Assessment 06/28/2022 Hepatitis C [...] Documents on File Type Date Recorded Patient Mattress Renovator Expl anation Health Care Decision (hx) 02/27/2023 HE ALTH CARE PROXY Health Care Decision (hx) 02/27/2023 HE ALTH CARE PROXY Health Care Decision (hx) 02/27/2023 HE ALTH CARE PROXY
--- OUTSIDE RECORDS SUMMARY | 2025-05-22 17:53 | XMS_ITS | Clinical Summary ---
Author Organization [facility] Address [address] [facility] [address] [place] [address] Phone Care Team Providers Care Medical Sales Name Role Phone Joanna Angeles MD Primary Care Provider [phone] Allergies Active Allergy Reactions Criticality Noted Date [...] A1c (%). Testing performed or reported by ~[facility], ~a Service of [facility], ~[address] [place] [address]~ 03/21/2019 2:49 PM EDT us Chris Martínez MD LAB BLOOD ORDERABLES Final Resul t [facility] 3 from Last 3 Months or Most Recently Relevant to Health Maintenance Insurance UHC Medicare UHC Medicare Care Teams Medical Sales Relationship Specialty Start Date End Date Joanna Angeles MD [address] [facility] [address] [place] [phone] PCP - General Family Medicine 02/17/23
--- OUTSIDE RECORDS SUMMARY | 2025-05-22 17:53 | XMS_ITS | Encounter Summary ---
Author Organization [facility] Address [address] [facility] [address] [place] [address] Phone Care Team Providers Care Glass Cleaning Machine Tender Name Role Phone Raheem García MD Primary Care Provider [phone] Encounter Details Date Type Department Care Team (Late st Contact Info) Description 09/15/2019 Procedure Pass [facility] Endoscopy Admitting Dept Virtual Department [address] [place] [address] Social History Tobacco Use Types Packs/Day Years [...] on filedocumented in this encounter Care Teams Glass Cleaning Machine Tender Relationship Specialty Start Date End Date Raheem García MD [address] [facility] [address] [place] [address] PCP - General Internal Medicine 08/18/19 documented as of this encounter Additional Source Comments The information contained in this document represents components of the legal health record. It is not the complete legal health record.[facility]
--- OUTSIDE RECORDS SUMMARY | 2025-05-22 17:53 | XMS_ITS | Encounter Summary ---
Author Organization [facility] Address [address] [place] [address] Phone Care Team Providers Care Pharmacovigilance Specialist Name Role Phone Joanna Angeles MD Primary Care Provider [phone] Reason for Visit * Reason Comments Med Refill Encounter Details Date Type Department Care Team ([facility] st Contact Info) Description 06/09/2023 Refill [facility] [address] [place] [address] Ahmet Oviedo MD [address] [facility] [address] [place] [address] Social History Tobacco Use Types [...] on filedocumented in this encounter Care Teams Pharmacovigilance Specialist Relationship Specialty Start Date End Date Joanna Angeles MD [address] [facility] [address] [place] [phone] PCP - General Family Medicine 02/17/23 documented as of this encounter
--- OUTSIDE RECORDS SUMMARY | 2025-05-22 17:53 | XMS_ITS | Clinical Summary ---
Author Organization [facility] Address [address] [place] [address] Phone Care Team Providers Care Baseball Pitcher Name Role Phone Raheem Hurley MD Primary Care Provider [phone] Allergies No known active allergies Medications amitriptyline [...] 66 Admit Type: Outpatient Gender: Male Room: [place] [address] Referring MD: RAHEEM HURLEY Exam Type: Colonoscopy [...] bowel preparation was evaluated using the BBPS ([place] Bowel Preparation Scale) with scores of: Right [...] 11:39 AM Procedure Code(s): --- Professional --- 49696, Colonoscopy, flexible; with biopsy, single or multiple --- Technical --- 95488, Colonoscopy, flexible; with biopsy, single or multiple Diagnosis Code(s): --- Professional --- K63.89, Other specified diseases of intestine K52.9, Noninfective gastroenteritis and colitis, unspecified R19.5, Other fecal abnormalities --- Technical --- K63.89, Other specified diseases of intestine K52.9, Noninfective gastroenteritis and colitis, unspecified R19.5, Other fecal abnormalities CPT copyright 2018 [employer]. All rights reserved. The codes documented in this report are preliminary and upon certified professional coder reviewmay be revised to meet current compliance requirements. Procedure Date: 09/15/2019 11:39:[address] [place] [address] Raheem Hurley MD GI PROCEDURE ORDERABLES F inal Result from Last 3 Months or Most Recently Relevant to Health Maintenance Insurance MEDICARE REPLACEMENT MEDICARE REPLACEMENT MEDICARE REPLACEMENT MEDICARE REPLACEMENT MEDICARE REPLACEMENT MEDICARE REPLACEMENT MEDICARE REPLACEMENT Member Subscriber Plan / Payer (Ef fective 2019-Present) Name:Ryan Waggoner Relation to Subscriber:Self Name:Ryan Waggoner Payer ID:[id number] (NAIC) Type:Medicare Address: [place] [address] [place] [address] MEDICARE REPLACEMENT Care Teams Baseball Pitcher Relationship Specialty Start Date End Date Raheem Hurley MD [address] [place] [phone] PCP - General Internal Medicine 08/18/19 Additional Source Comments The information contained in this document represents components of the legal health record. It is not the complete legal health record.[facility]
== END 2025-05-22 14:15 | disposition home or self-care (01) ==
LOC: HO.HMGCLDS 14:14
PROVIDERS: PCP Family Medicine; Visit Provider Internal Medicine Nephrology
DX: N25.81 Secondary hyperparathyroidism of renal origin (principal); D63.1 Anemia in chronic kidney disease; I12.9 Hypertensive chronic kidney disease with stage 1 through stage 4 chronic kidney disease, or unspecified chronic kidney disease; E11.22 Type 2 diabetes mellitus with diabetic chronic kidney disease; N18.4 Chronic kidney disease, stage 4 (severe)
CPT/HCPCS: 36415; 80051; 82306; 82310; 82565; 82728; 83540; 83970; 84100; 84520; 85025

== ENCOUNTER 2025-05-23 15:47 | Outpatient (AMB) | payer MEDICARE, SELFPAY ==
--- NOTE | 2025-05-23 15:54 | HO.NEPHOV_ITS ---
Vital Signs 05/23/25 15:56 Height 5 ft 11 in Weight 219 lb 6 oz BMI 30.6 BP 150/70 H Blood Pressure Location Lt brachial Position Sitting Pulse 86 Pulse Source Pulse Oximeter Pulse Oximetry (%) 94 Oxygen Delivery Method Room Air Intake Visit Reasons: 1mon Retacrit f/u w/labs-Conf Finishing Tunnel Operator Required: No Accompanied by: Self / Same As Patient Allergies No Known Allergies Allergy (Verified 05/23/25 15:56) HPI Comments Details: Ryan was seen in F/U for advanced CKD. He has H/O acute kidney injury on 2 separate occasions in the past needing hemodialysis on both those times. He has biopsy-proven diabetic nephropathy. His blood sugar control has not been optimal . He follows up with an glass etcher. His blood pressure has been at goal. His edema is resolved. His appetite is good and does not have any hypoglycemia. He has no urinary symptoms. He denied taking nonsteroidal anti-inflammatories. His serum creatinine is stable .He denies uremic symptoms. [facility] Medical History Proteinuria Type 2 diabetes mellitus with diabetic nephropathy Hypertension Acute kidney injury Review of Systems Const All systems reviewed & are unremarkable except as noted in HPI and below Physical Exam Vital Signs: Last Vital Signs Pulse 86 05/23/25 15:56 BP 150/70 H 05/23/25 15:56 Pulse Ox 94 05/23/25 15:56 Oxygen Delivery Method Room Air 05/23/25 15:56 BMI result Body Mass Index 30.6 Const General: comfortable and no acute distress Orientation/consciousness: patient oriented x3 HEENT Head: Yes normocephalic Mouth: Normal oral and palatal mucosa present Eyes EOM: EOMs intact bilaterally Neck Neck: Yes supple Resp Auscultation: clear to auscultation bilaterally Cardio Jugular venous distension: no JVD Rate: regular rate GI Palpation (GI): Soft to palpation Auscultation: normal bowel sounds General: Yes no CVA tenderness Back/Spine/Pelvis Back: no CVA tenderness Skin General skin exam: no rashes or lesions noted Neuro General: patient oriented x3 and moves all extremities Extrem General: Yes no pedal edema Office Meds epoetin maranda-epbx 10,000 unit/mL injection solution Performing Provider: Chris Martínez MD Performing Location: [facility] Administered by: Chris Martínez MD on 05/23/25 16:02 Dose Route Admin Location Dispensed Lot Number Expiration Date [facility] Sports Book Writer 40,000 unit subcut RUE 4 mL [id number] 08/27/26 2944-1518-49 [employer] Total Dispensed Waste 4 mL 0 % Results Reviewed Nephrology Results: Hgb, (14.0-18.0) 8.2 g/dl L 05/22/25 WBC, (4.8-10.8) 8.5 X10*3/uL 05/22/25 Plt Count, (160-400) 235 X10*3/uL 05/22/25 Sodium, (135-145) 145 mmol/L 05/22/25 Potassium, (3.3-5.1) 4.9 mmol/L 05/22/25 Chloride, (96-108) 115 mmol/L H 05/22/25 Carbon Dioxide, (22-29) 20 mmol/L L 05/22/25 BUN, (9-16) 68 mg/dL H 05/22/25 Creatinine, (0.5-1.4) 5.79 mg/dL H* 05/22/25 Calcium, (8.4-10.2) 8.0 mg/dL L Δ 05/22/25 Phosphorus, (2.7-4.5) 6.2 mg/dL H 05/22/25 PTH Intact, (8.7-77.1) 947.5 pg/mL H 05/22/25 Assessment & Plan Assessment & Plan (1) Hypertension: Code(s): I10 - Essential (primary) hypertension Category: Medical Qualifiers: Hypertension type: primary hypertension Qualified Code(s): I10 - Essential (primary) hypertension (2) Secondary hyperparathyroidism (of renal origin): Code(s): N25.81 - Secondary hyperparathyroidism of renal origin Category: Medical (3) CKD stage 5 due to type 2 diabetes mellitus: Code(s): E11.22 - Type 2 diabetes mellitus with diabetic chronic kidney disease; N18.5 - Chronic kidney disease, stage 5 Category: Medical (4) Diabetic nephropathy: Code(s): E11.21 - Type 2 diabetes mellitus with diabetic nephropathy Category: Medical Qualifiers: Diabetes mellitus type: type 2 Qualified Code(s): E11.21 - Type 2 diabetes mellitus with diabetic nephropathy (5) Anemia in chronic kidney disease: Code(s): N18.9 - Chronic kidney disease, unspecified; D63.1 - Anemia in chronic kidney disease Category: Medical Qualifiers: Chronic kidney disease stage: stage 4 (GFR 15-29) Qualified Code(s): N18.4 - Chronic kidney disease, stage 4 (severe); D63.1 - Anemia in chronic kidney disease (6) Metabolic acidosis: Code(s): E87.20 - Acidosis, unspecified Category: Medical Plan His renal functions is stable . C/W lasix to 40 mg daily alternating with 20 mg every other day. He should be on a low K diet. C/W Kionex. There is no indication for any renal replacement therapy .I gave him 24768 Procrit injections today. [place] [address] U once a week and increased his calcitriol to 5 times a week. He needs to loose weight. I referred him for transplant eval. Answered all his questions. Follow-up appointment given Orders: Orders AMB Epoetin Injection Practice Supplied Today D63.1 - Anemia in chronic kidney disease, N18.4 - Chronic kidney disease, stage 4 (severe) Ferritin 6 Weeks D63.1 - Anemia in chronic kidney disease, E11.21 - Type 2 diabetes mellitus with diabetic nephropathy, E11.22 - Type 2 diabetes mellitus with diabetic chronic kidney disease, E87.20 - Acidosis, unspecified, I10 - Essential (primary) hypertension, N18.4 - Chronic kidney disease, stage 4 (severe), N18.5 - Chronic kidney disease, stage 5, N25.81 - Secondary hyperparathyroidism of renal origin Electrolytes 6 Weeks D63.1 - Anemia in chronic kidney disease, E11.21 - Type 2 diabetes mellitus with diabetic nephropathy, E11.22 - Type 2 diabetes mellitus with diabetic chronic kidney disease, E87.20 - Acidosis, unspecified, I10 - Essential (primary) hypertension, N18.4 - Chronic kidney disease, stage 4 (severe), N18.5 - Chronic kidney disease, stage 5, N25.81 - Secondary hyperparathyroidism of renal origin Blood Urea Nitrogen 6 Weeks D63.1 - Anemia in chronic kidney disease, E11.21 - Type 2 diabetes mellitus with diabetic nephropathy, E11.22 - Type 2 diabetes mellitus with diabetic chronic kidney disease, E87.20 - Acidosis, unspecified, I10 - Essential (primary) hypertension, N18.4 - Chronic kidney disease, stage 4 (severe), N18.5 - Chronic kidney disease, stage 5, N25.81 - Secondary hyperparathyroidism of renal origin Creatinine 6 Weeks D63.1 - Anemia in chronic kidney disease, E11.21 - Type 2 diabetes mellitus with diabetic nephropathy, E11.22 - Type 2 diabetes mellitus with diabetic chronic kidney disease, E87.20 - Acidosis, unspecified, I10 - Essential (primary) hypertension, N18.4 - Chronic kidney disease, stage 4 (severe), N18.5 - Chronic kidney disease, stage 5, N25.81 - Secondary hyperparathyroidism of renal origin Complete Blood Count Auto Diff 6 Weeks D63.1 - Anemia in chronic kidney disease, E11.21 - Type 2 diabetes mellitus with diabetic nephropathy, E11.22 - Type 2 diabetes mellitus with diabetic chronic kidney disease, E87.20 - Acidosis, unspecified, I10 - Essential (primary) hypertension, N18.4 - Chronic kidney disease, stage 4 (severe), N18.5 - Chronic kidney disease, stage 5, N25.81 - Secondary hyperparathyroidism of renal origin IRON PROFILE 6 Weeks D63.1 - Anemia in chronic kidney disease, E11.21 - Type 2 diabetes mellitus with diabetic nephropathy, E11.22 - Type 2 diabetes mellitus with diabetic chronic kidney disease, E87.20 - Acidosis, unspecified, I10 - Essential (primary) hypertension, N18.4 - Chronic kidney disease, stage 4 (severe), N18.5 - Chronic kidney disease, stage 5, N25.81 - Secondary hyperparathyroidism of renal origin Calcium 6 Weeks D63.1 - Anemia in chronic kidney disease, E11.21 - Type 2 diabetes mellitus with diabetic nephropathy, E11.22 - Type 2 diabetes mellitus with diabetic chronic kidney disease, E87.20 - Acidosis, unspecified, I10 - Essential (primary) hypertension, N18.4 - Chronic kidney disease, stage 4 (severe), N18.5 - Chronic kidney disease, stage 5, N25.81 - Secondary hyperparathyroidism of renal origin Phosphorus 6 Weeks D63.1 - Anemia in chronic kidney disease, E11.21 - Type 2 diabetes mellitus with diabetic nephropathy, E11.22 - Type 2 diabetes mellitus with diabetic chronic kidney disease, E87.20 - Acidosis, unspecified, I10 - Essential (primary) hypertension, N18.4 - Chronic kidney disease, stage 4 (severe), N18.5 - Chronic kidney disease, stage 5, N25.81 - Secondary hyperparathyroidism of renal origin Referrals Transplant Surgery Referral E11.22 - Type 2 diabetes mellitus with diabetic chronic kidney disease, N18.5 - Chronic kidney disease, stage 5 Coding Level of Care Code Est Pt Level 4 (34610) Diagnoses Primary hypertension I10 Hypertension type: primary hypertension Secondary hyperparathyroidism (of renal origin) N25.81 CKD stage 5 due to type 2 diabetes mellitus E11.22; N18.5 Diabetic nephropathy associated with type 2 diabetes mellitus E11.21 Diabetes mellitus type: type 2 Anemia in stage 4 chronic kidney disease N18.4; D63.1 Chronic kidney disease stage: stage 4 (GFR 15-29) Metabolic acidosis E87.20
[2025-05-23 15:56] VITALS: BP 150/70; PULSE 86; O2SAT 94; BMI 30.6
--- OUTSIDE RECORDS SUMMARY | 2025-05-23 20:02 | XMS_ITS | Patient Health Record ---
Author Organization [facility] [place] Address [address] [facility] [place] [address] Care Team Providers Care Convention Services Director Name Role Phone Raheem García MD Primary Care Provider Unavailab Virginia Quach Unavailable [phone] Reason For Referral No Information Medications Medication [...] Problem Acquired hammer toe of right foot ([id number] 105) Other hammer toe(s) (acquired), right foot (M20.41) Active confirmed Problem Acquired hammer toe of left foot ([id number] 103) Other hammer toe(s) (acquired), left foot (M20.42) Active confirmed Plan Of Treatment Pending Test Test Name Order Date [id number] NAIL, 1-5 01/09/2020 84601- Debride <25 sq cm 01/24/2020 31798 I&D ABSCESS- SIMPLE,SINGLE 020 86564-LWLV NAIL(S) 01/09/2020 Insurance Providers Payer Name Payer Address Payer Phone Subscriber Number Group Number Insured Name Patient Relationship to Insured Coverage Start Date Coverage End Date [employer] Medicare [id number] [address] [address] [place] [address] [phone] [id number] Ryan Chauhan Self - patient is the insured Medical (General) History Medical History History ICD Code type II diabetes Kidney disease Measles Mumps Chicken pox Surgical History Surgery Date(Month/Year)
--- OUTSIDE RECORDS SUMMARY | 2025-05-23 20:02 | XMS_ITS | Encounter Summary ---
Author Organization [facility] Address [address] [place] [address] Phone Care Team Providers Care Divisional Human Resources Director Name Role Phone Raheem García MD Primary Care Provider [phone] Encounter Details Date Type Department Care Team (Late st Contact Info) Description 09/15/2019 Procedure Pass [facility] Endoscopy Admitting Dept Virtual Department [address] [place] [address] Social History Tobacco Use Types Packs/Day Years [...] on filedocumented in this encounter Care Teams Divisional Human Resources Director Relationship Specialty Start Date End Date Raheem García MD [address] [facility] [address] [place] [address] PCP - General Internal Medicine 08/18/19 documented as of this encounter Additional Source Comments The information contained in this document represents components of the legal health record. It is not the complete legal health record.[facility]
--- OUTSIDE RECORDS SUMMARY | 2025-05-23 20:03 | XMS_ITS | Encounter Summary ---
Author Organization [facility] Address [address] [place] [address] Phone Care Team Providers Care Suppository Molding Machine Operator Name Role Phone Joanna [place] MD Primary Care Provider [phone] Reason for Visit * Reason Comments Med Refill Encounter Details Date Type Department Care Team ([facility] st Contact Info) Description 06/09/2023 Refill [facility] [address] [place] [address] Ahmet Oviedo MD [address] [facility] [address] [place] [address] Social History Tobacco Use Types [...] on filedocumented in this encounter Care Teams Suppository Molding Machine Operator Relationship Specialty Start Date End Date Joanna [place] MD [address] [facility] [address] [place] [phone] PCP - General Family Medicine 02/17/23 documented as of this encounter
--- OUTSIDE RECORDS SUMMARY | 2025-05-23 20:03 | XMS_ITS | Clinical Summary ---
Author Organization [facility] Address [address] [place] [address] Care Team Providers Care Crop Grain Or Livestock Farmer Name Role Phone Unavailable Primary Care Provider [...] Documents on File Type Date Recorded Patient Credit Assistant Expl anation Health Care Decision (hx) 02/27/2023 HE ALTH CARE PROXY Health Care Decision (hx) 02/27/2023 HE ALTH CARE PROXY Health Care Decision (hx) 02/27/2023 HE ALTH CARE PROXY
--- OUTSIDE RECORDS SUMMARY | 2025-05-23 20:03 | XMS_ITS | Clinical Summary ---
Author Organization [facility] Address [address] [place] [address] Care Team Providers Care Quick Technician Name Role Phone Unavailable Primary Care Provider [...] Years Used Date Smoking Tobacco: Never Assessed [facility] Utilities Answer Date Recorded In [...] in the past [address] [facility], were you homeless or living in a senior living (including now)? No 10/21/2024 Sex and Gender [...] patient's age to complete this topic Insurance [facility] MEDICARE Advance Directives * Full Code (Latest Code Status on File) Date Activated Date Inactivated Comments 10/18/2024 11:07 AM
--- OUTSIDE RECORDS SUMMARY | 2025-05-23 20:03 | XMS_ITS | Clinical Summary ---
Author Organization [facility] Address [address] [place] [address] Phone Care Team Providers Care Supervisor Carpenters Name Role Phone Raheem Hurley MD Primary Care Provider [phone] Allergies No known active allergies Medications amitriptyline [...] 66 Admit Type: Outpatient Gender: Male Room: [place] [address] Referring MD: RAHEEM HURLEY Exam Type: Colonoscopy [...] bowel preparation was evaluated using the BBPS ([place] Bowel Preparation Scale) with scores of: Right [...] 11:39 AM Procedure Code(s): --- Professional --- 63900, Colonoscopy, flexible; with biopsy, single or multiple --- Technical --- 02410, Colonoscopy, flexible; with biopsy, single or multiple Diagnosis Code(s): --- Professional --- K63.89, Other specified diseases of intestine K52.9, Noninfective gastroenteritis and colitis, unspecified R19.5, Other fecal abnormalities --- Technical --- K63.89, Other specified diseases of intestine K52.9, Noninfective gastroenteritis and colitis, unspecified R19.5, Other fecal abnormalities CPT copyright 2018 [employer]. All rights reserved. The codes documented in this report are preliminary and upon parts classifier reviewmay be revised to meet current compliance requirements. Procedure Date: 09/15/2019 11:39:[address] [place] [address] Raheem Hurley MD GI PROCEDURE ORDERABLES F inal Result from Last 3 Months or Most Recently Relevant to Health Maintenance Insurance MEDICARE REPLACEMENT MEDICARE REPLACEMENT MEDICARE REPLACEMENT MEDICARE REPLACEMENT MEDICARE REPLACEMENT MEDICARE REPLACEMENT MEDICARE REPLACEMENT Member Subscriber Plan / Payer (Ef fective 2019-Present) Name:Ryan Waggoner Relation to Subscriber:Self Name:Ryan Waggoner Payer ID:[id number] (NAIC) Type:Medicare Address: [place] [address] [place] [address] MEDICARE REPLACEMENT Care Teams Supervisor Carpenters Relationship Specialty Start Date End Date Raheem Hurley MD [address] [place] [phone] PCP - General Internal Medicine 08/18/19 Additional Source Comments The information contained in this document represents components of the legal health record. It is not the complete legal health record.[facility]
--- OUTSIDE RECORDS SUMMARY | 2025-05-23 20:03 | XMS_ITS | Clinical Summary ---
Author Organization [facility] Address [address] [facility] [address] [place] [address] Phone Care Team Providers Care Screed Operator Name Role Phone Joanna [place] MD Primary Care Provider [phone] Allergies Active Allergy Reactions Criticality Noted Date [...] Overview (03/13/2023): RECORDED 04/14/2013 3:41PM BY CASIE WSIE MA, OFFICE VISIT Infective otitis externa 07/23/2012 [...] A1c (%). Testing performed or reported by ~[facility], ~a Service of [facility], ~[address] [place] [address]~ 03/21/2019 2:49 PM EDT us Chris Martínez MD LAB BLOOD ORDERABLES Final Resul t [facility] 3 from Last 3 Months or Most Recently Relevant to Health Maintenance Insurance UHC Medicare UHC Medicare Care Teams Screed Operator Relationship Specialty Start Date End Date Joanna [place] MD [address] [facility] [address] [place] [phone] PCP - General Family Medicine 02/17/23
--- OUTSIDE RECORDS SUMMARY | 2025-05-23 20:03 | XMS_ITS | Encounter Summary ---
Author Organization [facility] Address [address] [facility] [address] [place] [address] Phone Care Team Providers Care Cancer Program Consultant Name Role Phone Raheem García MD Primary Care Provider [phone] Encounter Details Date Type Department Care Team (Late st Contact Info) Description 06/01/2017 Procedure Pass [facility] Endoscopy Admitting Dept Virtual Department [address] [place] [address] Social History Tobacco Use Types Packs/Day Years [...] on filedocumented in this encounter Care Teams Cancer Program Consultant Relationship Specialty Start Date End Date Raheem García MD [address] [facility] [address] [place] [address] PCP - General Internal Medicine 08/18/19 documented as of this encounter Additional Source Comments The information contained in this document represents components of the legal health record. It is not the complete legal health record.[facility]
== END 2025-05-23 16:22 | disposition home or self-care (01) ==
PROVIDERS: PCP Family Medicine; Visit Provider Internal Medicine Nephrology
DX: I12.9 Hypertensive chronic kidney disease with stage 1 through stage 4 chronic kidney disease, or unspecified chronic kidney disease (principal); N25.81 Secondary hyperparathyroidism of renal origin; E11.22 Type 2 diabetes mellitus with diabetic chronic kidney disease; N18.5 Chronic kidney disease, stage 5; E11.21 Type 2 diabetes mellitus with diabetic nephropathy; N18.4 Chronic kidney disease, stage 4 (severe); D63.1 Anemia in chronic kidney disease; E87.20 Acidosis, unspecified
CPT/HCPCS: 99214

== ENCOUNTER → 2025-05-23 15:47 | Outpatient (BNVA) | payer MEDICARE, SELFPAY | PROVIDERS: PCP Family Medicine; Visit Provider Internal Medicine Nephrology | DX: I12.0 Hypertensive chronic kidney disease with stage 5 chronic kidney disease or end stage renal disease (principal); D63.1 Anemia in chronic kidney disease; N18.5 Chronic kidney disease, stage 5; E11.21 Type 2 diabetes mellitus with diabetic nephropathy; E11.22 Type 2 diabetes mellitus with diabetic chronic kidney disease; E87.20 Acidosis, unspecified; N25.81 Secondary hyperparathyroidism of renal origin | CPT/HCPCS: 96372; 99212; Q5106 ==

== ENCOUNTER 2025-07-05 13:45 | Outpatient (REF) | payer MEDICARE, SELFPAY ==
[2025-07-05 16:20] LABS: MANUAL DIFF FLAG NO
[2025-07-05 16:31] LABS: Hematocrit 27.7 % (42.0-52.0); Hemoglobin 8.5 g/dl (14.0-18.0); Imm Gran Abs Auto 0.12 X10*3/uL (0.00-0.03); Imm Gran Pct Auto 1.4 % (0.0-0.4); Lymphocytes Absolute Auto 1.3 X10*3/uL (1.2-4.9); Mean Corpuscular HGB Conc 30.7 g/dl (31.0-36.0); Mean Corpuscular Hemoglobin 29.0 pg (27.0-33.0); Mean Corpuscular Volume 94.5 fL (80.0-98.0); NRBC Abs Auto 0.000 X10*3/uL (0.0-0.012); NRBC Pct Auto 0.0 /100WBC (0.0-0.2); Platelet Count 227 X10*3/uL (160-400); Red Blood Count 2.93 X10*6/uL (4.60-5.80); White Blood Count 8.4 X10*3/uL (4.8-10.8)
[2025-07-05 17:07] LABS: Ferritin 158 ng/mL (20-250)
[2025-07-05 18:02] LABS: Anion Gap 15 (12-20); Blood Urea Nitrogen 60 mg/dL (9-16); Calcium 8.4 mg/dL (8.4-10.2); Carbon Dioxide 19 mmol/L (22-29); Chloride 117 mmol/L (96-108); Estimated Glomerular Filt Rate 9; Iron 76 mcg/dL (45-160); Percent Iron Saturation 37 % (15-50); Potassium 5.5 mmol/L (3.3-5.1); Sodium 145 mmol/L (135-145); Total Iron Binding Capacity 203 mcg/dL (228-428); Unsaturated Iron Binding 127 ug/dL
== END 2025-07-05 13:46 | disposition home or self-care (01) ==
LOC: HO.HMGCLDS 13:45
PROVIDERS: PCP Family Medicine; Visit Provider Internal Medicine Nephrology
DX: I12.9 Hypertensive chronic kidney disease with stage 1 through stage 4 chronic kidney disease, or unspecified chronic kidney disease (principal); N18.5 Chronic kidney disease, stage 5; E11.22 Type 2 diabetes mellitus with diabetic chronic kidney disease; D63.1 Anemia in chronic kidney disease; E87.20 Acidosis, unspecified
CPT/HCPCS: 36415; 80051; 82310; 82565; 82728; 83540; 84100; 84520; 85025

== ENCOUNTER 2025-07-07 15:43 | Outpatient (AMB) | payer MEDICARE, SELFPAY ==
--- NOTE | 2025-07-07 16:03 | HO.NEPHOV_ITS ---
Vital Signs 07/07/25 16:07 Height 5 ft 11 in Weight 216 lb 4 oz BMI 30.2 BP 160/60 H Blood Pressure Location Rt brachial Position Sitting Pulse 86 Pulse Source Pulse Oximeter Pulse Oximetry (%) 96 Oxygen Delivery Method Room Air Intake Visit Reasons: 6wks Retacrit f/u w/labs-Conf Manager Field Required: No Accompanied by: Self / Same As Patient Allergies No Known Allergies Allergy (Verified 07/07/25 16:07) HPI Comments Details: Ryan was seen in F/U for advanced CKD. He has H/O acute kidney injury on 2 separate occasions in the past needing hemodialysis on both those times. He has biopsy-proven diabetic nephropathy. His blood sugar control has not been optimal . 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 His blood pressure has been at goal. His edema is resolved. His appetite is good and does not have any hypoglycemia. He has no urinary symptoms. He denied taking nonsteroidal anti-inflammatories. He denies uremic symptoms. [facility] Medical History Proteinuria Type 2 diabetes mellitus with diabetic nephropathy Hypertension Acute kidney injury Review of Systems Const All systems reviewed & are unremarkable except as noted in HPI and below Physical Exam Vital Signs: Last Vital Signs Pulse 86 07/07/25 16:07 BP 160/60 H 07/07/25 16:07 Pulse Ox 96 07/07/25 16:07 Oxygen Delivery Method Room Air 07/07/25 16:07 BMI result Body Mass Index 30.2 Const General: comfortable and no acute distress Orientation/consciousness: patient oriented x3 HEENT Head: Yes normocephalic Mouth: Normal oral and palatal mucosa present Eyes EOM: EOMs intact bilaterally Neck Neck: Yes supple Resp Auscultation: clear to auscultation bilaterally Cardio Jugular venous distension: no JVD Rate: regular rate GI Palpation (GI): Soft to palpation Auscultation: normal bowel sounds General: Yes no CVA tenderness Back/Spine/Pelvis Back: no CVA tenderness Skin General skin exam: no rashes or lesions noted Neuro General: patient oriented x3 and moves all extremities Extrem General: Yes no pedal edema Office Meds epoetin maranda-epbx 10,000 unit/mL injection solution Performing Provider: Chris Martínez MD [facility] Administered by: Chris Martínez MD on 07/07/25 16:16 Dose Route Admin Location Dispensed Lot Number Expiration Date [facility] [place] [employer] Security Administrator 40,000 unit subcut 4 mL [id number] 08/27/26 6230-3514-06 [employer] Total Dispensed Waste 4 mL 0 % Results Reviewed Nephrology Results: Hgb, (14.0-18.0) 8.5 g/dl L 07/05/25 WBC, (4.8-10.8) 8.4 X10*3/uL 07/05/25 Plt Count, (160-400) 227 X10*3/uL 07/05/25 Sodium, (135-145) 145 mmol/L 07/05/25 Potassium, (3.3-5.1) 5.5 mmol/L H 07/05/25 Chloride, (96-108) 117 mmol/L H 07/05/25 Carbon Dioxide, (22-29) 19 mmol/L L 07/05/25 BUN, (9-16) 60 mg/dL H 07/05/25 Creatinine, (0.5-1.4) 6.19 mg/dL H* 07/05/25 Calcium, (8.4-10.2) 8.4 mg/dL 07/05/25 Phosphorus, (2.7-4.5) 5.8 mg/dL H 07/05/25 PTH Intact, (8.7-77.1) 947.5 pg/mL H 05/22/25 Assessment & Plan Assessment & Plan (1) Hypertension: Code(s): I10 - Essential (primary) hypertension Category: Medical Qualifiers: Hypertension type: primary hypertension Qualified Code(s): I10 - Essential (primary) hypertension (2) Secondary hyperparathyroidism (of renal origin): Code(s): N25.81 - Secondary hyperparathyroidism of renal origin Category: Medical (3) CKD stage 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 C/W lasix to 40 mg daily alternating with 20 mg every other day. He should be on a low K diet. C/W Kionex. There is no indication for any renal replacement therapy .I gave him 86964 Procrit injections today. C/W Vitamin D 78388 U once a week. I increased his calcitriol to every day. He needs to loose weight. He has an appt for transplant eval. Answered all his questions. Follow-up appointment given Orders: Orders Complete Blood Count Auto Diff 1 Month E11.21 - Type 2 diabetes mellitus with diabetic nephropathy, E11.22 - Type 2 diabetes mellitus with diabetic chronic kidney disease, E87.20 - Acidosis, unspecified, E87.5 - Hyperkalemia, I10 - Essential (primary) hypertension, N18.5 - Chronic kidney disease, stage 5, N25.81 - Secondary hyperparathyroidism of renal origin Blood Urea Nitrogen 1 Month E11.21 - Type 2 diabetes mellitus with diabetic nephropathy, E11.22 - Type 2 diabetes mellitus with diabetic chronic kidney disease, E87.20 - Acidosis, unspecified, E87.5 - Hyperkalemia, I10 - Essential (primary) hypertension, N18.5 - Chronic kidney disease, stage 5, N25.81 - Secondary hyperparathyroidism of renal origin Creatinine 1 Month E11.21 - Type 2 diabetes mellitus with diabetic nephropathy, E11.22 - Type 2 diabetes mellitus with diabetic chronic kidney disease, E87.20 - Acidosis, unspecified, E87.5 - Hyperkalemia, I10 - Essential (primary) hypertension, N18.5 - Chronic kidney disease, stage 5, N25.81 - Secondary hyperparathyroidism of renal origin Calcium 1 Month E11.21 - Type 2 diabetes mellitus with diabetic nephropathy, E11.22 - Type 2 diabetes mellitus with diabetic chronic kidney disease, E87.20 - Acidosis, unspecified, E87.5 - Hyperkalemia, I10 - Essential (primary) hypertension, N18.5 - Chronic kidney disease, stage 5, N25.81 - Secondary hyperparathyroidism of renal origin AMB Epoetin Injection Practice Supplied Today E11.22 - Type 2 diabetes mellitus with diabetic chronic kidney disease, N18.5 - Chronic kidney disease, stage 5 Electrolytes 1 Month E11.21 - Type 2 diabetes mellitus with diabetic nephropathy, E11.22 - Type 2 diabetes mellitus with diabetic chronic kidney disease, E87.20 - Acidosis, unspecified, E87.5 - Hyperkalemia, I10 - Essential (primary) hypertension, N18.5 - Chronic kidney disease, stage 5, N25.81 - Secondary hyperparathyroidism of renal origin Coding Level of Care Code Est Pt Level 4 (09028) Diagnoses Primary hypertension I10 Hypertension type: primary hypertension Secondary hyperparathyroidism (of renal origin) N25.81 CKD stage 5 due to type 2 diabetes mellitus E11.22; N18.5 Diabetic nephropathy associated with type 2 diabetes mellitus E11.21 Diabetes mellitus type: type 2 Hyperkalemia E87.5 Metabolic acidosis E87.20
[2025-07-07 16:07] VITALS: BP 160/60; PULSE 86; O2SAT 96; BMI 30.2
--- OUTSIDE RECORDS SUMMARY | 2025-07-07 20:26 | XMS_ITS | Patient Health Record ---
[facility] [place] Address [address] [place] [address] Care Team Providers Care Knowledge Management Advisor Name Role Phone Raheem García MD Primary Care Provider Unavailab Virginia Quach Unavailable [phone] Reason For Referral No Information Medications Medication [...] Problem Acquired hammer toe of right foot ([id number] 105) Other hammer toe(s) (acquired), right foot (M20.41) Active confirmed Problem Acquired hammer toe of left foot ([id number] 103) Other hammer toe(s) (acquired), left foot (M20.42) Active confirmed Plan Of Treatment Pending Test Test Name Order Date [id number] NAIL, 1-5 01/09/2020 52037- Debride <25 sq cm 01/24/2020 73001 I&D ABSCESS- SIMPLE,SINGLE 020 35335-TZAV NAIL(S) 01/09/2020 Insurance Providers Payer Name Payer Address Payer Phone Subscriber Number Group Number Insured Name Patient Relationship to Insured Coverage Start Date Coverage End Date [employer] Medicare [id number] [address] [address] [place] [address] [id number] Ryan Chauhan Self - patient is the insured Medical (General) History Medical History History ICD Code type II diabetes Kidney disease Measles Mumps Chicken pox Surgical History Surgery Date(Month/Year)
--- OUTSIDE RECORDS SUMMARY | 2025-07-07 20:27 | XMS_ITS | Encounter Summary ---
Author Organization [facility] Address [address] [place] [address] Phone Care Team Providers Care Security Intelligence Analyst Name Role Phone Raheem García MD Primary Care Provider [phone] Encounter Details Date Type Department Care Team (Late st Contact Info) Description 09/15/2019 Procedure Pass [facility] Endoscopy Admitting Dept Virtual Department [address] [place] [address] Social History Tobacco Use Types Packs/Day Years [...] on filedocumented in this encounter Care Teams Security Intelligence Analyst Relationship Specialty Start Date End Date Raheem García MD [address] [facility] [address] [place] [address] PCP - General Internal Medicine 08/18/19 documented as of this encounter Additional Source Comments The information contained in this document represents components of the legal health record. It is not the complete legal health record.[facility]
--- OUTSIDE RECORDS SUMMARY | 2025-07-07 20:27 | XMS_ITS | Clinical Summary ---
Author Organization [facility] Address [address] [place] [address] Phone Care Team Providers Care Pitch Gatherer Name Role Phone Raheem Hurley MD Primary Care Provider [phone] Allergies No known active allergies Medications amitriptyline [...] 64 Admit Type: Outpatient Gender: Male Room: [place] [address] Referring MD: RAHEEM HURLEY Exam Type: Colonoscopy [...] bowel preparation was evaluated using the BBPS (Leiter Bowel Preparation Scale) with scores of: Right [...] 11:39 AM Procedure Code(s): --- Professional --- 39051, Colonoscopy, flexible; with biopsy, single or multiple --- Technical --- 72585, Colonoscopy, flexible; with biopsy, single or multiple Diagnosis Code(s): --- Professional --- K63.89, Other specified diseases of intestine K52.9, Noninfective gastroenteritis and colitis, unspecified R19.5, Other fecal abnormalities --- Technical --- K63.89, Other specified diseases of intestine K52.9, Noninfective gastroenteritis and colitis, unspecified R19.5, Other fecal abnormalities CPT copyright 2018 [employer]. All rights reserved. The codes documented in this report are preliminary and upon chief ii dispatcher reviewmay be revised to meet current compliance requirements. Procedure Date: 09/15/2019 11:39:[address] [place] [id number] Raheem Hurley MD GI PROCEDURE ORDERABLES F inal Result from Last 3 Months or Most Recently Relevant to Health Maintenance Insurance MEDICARE REPLACEMENT MEDICARE REPLACEMENT MEDICARE REPLACEMENT MEDICARE REPLACEMENT MEDICARE REPLACEMENT MEDICARE REPLACEMENT MEDICARE REPLACEMENT Member Subscriber Plan / Payer (Ef fective 2019-Present) Name:Ryan Waggoner Relation to Subscriber:Self Name:Ryan Waggoner Payer ID:[id number] (NAIC) Type:Medicare Address: [place] [id number] [place] [address] MEDICARE REPLACEMENT Care Teams Pitch Gatherer Relationship Specialty Start Date End Date Raheem Hurley MD [address] [place] [id number] PCP - General Internal Medicine 08/18/19 Additional Source Comments The information contained in this document represents components of the legal health record. It is not the complete legal health record.[facility]
--- OUTSIDE RECORDS SUMMARY | 2025-07-07 20:27 | XMS_ITS | Data Portability ---
Author Organization [facility], Main Office Address [address] [place] [address] [address] [place] [id number] Care Team Providers Care Facilities Specialist Name Role Phone [facility] Re[facility] JESUS RUBIO Phys. Med. & Rehab JONNA BATRES Geological Survey Field Assistant [facility] Dinkey Mechanic RAHUL DIAL [employer] Photo Operator CARLOS MARTÍNEZ [employer] PEE JOHNSON Hedge Fund Manager VIVI DE Primary Care Provider [phone] ARA HOGUE Urologist Assessment Encounter Date Assessment [...] and to maintain regular follow-up with his head lineman. His recent fever and upper respiratory symptoms [...] likely consideration. beryl Not available 11/14/2024 10:39:05 11/23/2024 11/23/2024 On examination today, the patient demonstrates signs consistent with muscle spasm in the lower thoracic and lumbar region, along with tight hip flexors. I have recommended initiating physical therapy and continuing follow-up with his crane manager for further musculoskeletal management. Given his chronic [...] He should also follow up with his crane manager. I provided him with a printed copy [...] the CT abdomen/pelvis to provide to his crane manager, so they can confirm that renal pathology [...] His most critical follow-up remains with his head lineman, given his renal status. beryl Not available 11/23/2024 19:18:46 01/23/2025 01/23/2025 Patient is at lo w risk for cardiopulmonary complications with planned procedure based on comorbidities, good exertional tolerance and overall procedure risk. Patient advised to avoid aspirin for 14 days and NSAIDS for 7 days prior. May proceed to scheduled surgery as planned. Not available 01/23/2025 13:01:16 03/07/2025 03/07/2025 1. Diagnostics -CBC with diff eosinophilia, infection. -CMP liver enzymes, renal function. -phosphate, Mg assess CKD control. -ESR/CRP screen for inflammation. -LFTs Dermatology referral placed. 2. Treatment -Symptomatic itch relief: -Cetirizine 5 mg daily (renal-adjusted). -Hydroxyzine 10 mg at bedtime if nocturnal itch problematic (monitor sedation). -Continue gabapentin 300 mg nightly (timing before bed). Topical: -Castella application of thick emollients (aveeno oatmeal) at least BID advised. -Medium-potency topical corticosteroid (triamcinolone 0.1% cream) to inflamed areas for 1 2 weeks Sent. General measures: -Avoid hot showers and harsh soaps. -Avoid itching. 3. Follow-up -Reassess symptoms in 2 weeks. -Monitor labs and adjust treatment according to metabolic derangements. beryl Not available 03/07/2025 14:54:27 03/29/2025 03/29/2025 Discussed with patient the signs/symptoms warranted for a return to office visit and/or an ER visit. Patient understood and agreed with the plan. Not available 03/29/2025 15:06:55 Plan of Treatment Reminders Order Date Submit Date Provider Last Modified By Organization Details Last Modified Time Details Appointments [id number] 2025 01:00P Alicja De MD Not available Not available Not available Lab CMP, serum or plasma 2024 025 [facility], [address] [place] [address], [place], [address], 03/07/2025 14:30:11 magnes ium, serum or plasma 2024 025 [facility], [address] [place] [address], [place], [address], 03/07/2025 14:30:11 phosph orus, serum or plasma 2024 025 [facility], [address] [place] [address], [id number], 03/07/2025 14:30:12 CBC w/ auto diff 2024 [facility], [address] [place] [address], [id number], 03/24/2025 11:31:35 ESR (eryth rocyte sedime ntatio n rate), blood 2024 [facility], [address] [place] [address], [id number], 03/07/2025 14:30:11 C-reac tive protei n, qualit ative, serum 2024 [facility], [address] [place] [address], [id number], 03/07/2025 14:30:11 RPR (rapid plasma reagin ), titer, serum 2024 [facility], [address] [place] [address], [id number], 03/07/2025 14:30:11 BMP, serum or plasma 2024 025 [facility], [address] [place] [address], [id number], 02/03/2025 13:12:28 urinal ysis comple te, reflex cultur e 2024 025 [facility], [address] [place] [address], [id number], 11/14/2024 09:34:50 Hepati tis C IgG Ab, qual, serum 2024 025 [facility], [address] [place] [address], [id number], 12/05/2024 10:36:27 HBsAg (hepat itis B surfac e Ag), EIA, serum 2024 025 [facility], [address] [place] [address], [id number], 12/05/2024 10:36:27 HIV 1 + 2, meanin gful use set 2024 025 [facility], [address] [place] [address], [id number], 12/05/2024 10:36:27 trepon omer pallid um IgG + IgM Ab, QL, IA, serum 2024 025 [facility], [address] [place] [address], [id number], 11/21/2024 13:14:54 CT + NG RNA, PCR, unspec ified specim en 2024 025 [facility], [address] [place] [address], [id number], 11/21/2024 13:14:54 hepati tis B core IgM Ab, qual, serum or plasma 2024 025 [facility], [address] [place] [address], [id number], 11/21/2024 13:14:54 Referral dermat ologis t referr al 2024 025 [email or web address] Not available 04/04/2025 10:12:14 physic al therap ist referr al 2024 025 [email or web address] Not available 06/03/2025 10:08:22 Procedures None record ed. Surgeries None record ed. Imaging CT, abdome n + pelvis , w/o contra st 2024 025 [facility] ([facility]), [address] [facility], [place], [address], 11/17/2024 15:57:36 Medication Orders triamc inolon e aceton laura 0.1 % topica l cream 2024 025 [facility]acy #[id number], [address] [place], [address], 03/07/2025 14:28:53 cetiri zine 5 mg tablet 2024 025 [facility]/Pharmacy #[id number], [address] [place], [address], 03/30/2025 13:18:47 hydrox yzine HCl 10 mg tablet 2024 025 [facility]armacy #[id number], [address] [place], [address], 03/30/2025 14:50:58 Patient TargetsNo targets recorded. Patient Instructions Encounter Date Encounter Id Patient Instructions Last Modified By Organization Details Last Modified Time 11/14/2024 [id number] learning about fever beryl Not available 11/14/2024 10:32:51 At [facility] follow up visit, all current and discharge medications (OTC, herbal therapies, supplements) reviewed and reconciled with patient and or caregiver, including potential side effects, drug interactions, instructions, and the consequences of not taking medication. Reviewed potential barriers to medication adherence, such as side effects from medication or cost of medication. [email or web address] Not available 11/14/2024 08:34:10 11/23/2024 [id number] medicines to avoid with kidney disease: care instructions beryl Not available 11/23/2024 19:18:46 back pain: care instructions beryl Not available 11/23/2024 14:27:03 Reason for Referral Physical Therapist Referral for Backache Referring Physician: Vivi De, Family Medicine, Encounter Date: 11/23/2024 Job Compositor Referral for P ruritic dermatitis Referring Physician: Vivi De, Family Medicine, Encounter Date: 03/07/2025 Results Created Date Observation Date Name Description Value Unit Range Abnormal Flag Note LastModifiedBy Organization Detail LastModifiedTime 11/16/1911/18/2024 CBC w/ auto diff sodium 142 Not Available [facility] (Medical Records) [address] [place], [address], 11/15/2024 10:25:56 11/16/19 25 11/18/2024 CBC w/ auto diff potassium 4.9 Not Available [facility] (Medical Records) [address] [place], [address], 11/15/2024 10:25:56 11/16/19 25 11/18/2024 CBC w/ auto diff BUN 38 Not Available [facility] (Medical Records) [address] [place], [address], 11/15/2024 10:25:56 11/16/19 25 11/18/2024 CBC w/ auto diff creatinine 4.19 Not Available [facility] (Medical Records) [address] [place], [address], 11/15/2024 10:25:56 11/16/19 25 11/18/2024 CBC w/ auto diff glucose 144 Not Available [facility] (Medical Records) [address] [place], [address], 11/15/2024 10:25:56 11/16/19 25 11/18/2024 CBC w/ auto diff WBC 5.2 Not Available [facility] (Medical Records) [address] [place], [address], 11/15/2024 10:25:56 11/16/19 25 11/18/2024 CBC w/ auto diff RBC 3.50 Not Available [facility] (Medical Records) [address] [place], [address], 11/15/2024 10:25:56 11/16/19 25 11/18/2024 CBC w/ auto diff HGB 10.3 Not Available [facility] (Medical Records) [address] [place], [address], 11/15/2024 10:25:56 11/16/19 25 11/18/2024 CBC w/ auto diff HCT 33.1 Not Available [facility] (Medical Records) [address] [place] [address], [address], 11/15/2024 10:25:56 11/16/19 25 11/18/2024 CBC w/ auto diff plt 195 Not Available [facility] (Medical Records) [address] [place], [address], 11/15/2024 10:25:56 11/16/19 25 11/18/2024 urina lysis , compl ete sodium 142 Not Available [facility] (Medical Records) [address] [place] [address], [address], 11/15/2024 10:25:01 11/16/19 25 11/18/2024 urina lysis , compl ete potassium 4.9 Not Available [facility] (Medical Records) [address] [place], [address], 11/15/2024 10:25:01 11/16/19 25 11/18/2024 urina lysis , compl ete glucose 144 Not Available [facility] (Medical Records) [address] [place], [address], 11/15/2024 10:25:01 11/16/19 25 11/18/2024 urina lysis , compl ete BUN 38 Not Available [facility] (Medical Records) [address] [place], [address], 11/15/2024 10:25:01 11/16/19 25 11/18/2024 urina lysis , compl ete creatinine 4.19 Not Available [facility] (Medical Records) [address] [place], [address], 11/15/2024 10:25:01 11/16/1911/18/2024 urina lysis , compl ete WBC 5.2 Not Available [facility] (Medical Records) [address] [place], [address], 11/15/2024 10:25:01 11/16/1911/18/2024 urina lysis , compl ete RBC 3.50 Not Available [facility] (Medical Records) [address] [place], [address], 11/15/2024 10:25:11/16/1911/18/2024 urina lysis , compl ete HGB 10.3 Not Available [facility] (Medical Records) [address] [place], [address], 11/15/2024 10:25:01 11/16/1911/18/2024 urina lysis , compl ete HCT 33.1 Not Available [facility] (Medical Records) [address] [place], [address], 11/15/2024 10:25:01 11/16/1911/18/2024 urina lysis , compl ete plt 195 Not Available [facility] (Medical Records) [address] [place], [address], 11/15/2024 10:25:01 11/16/1911/18/2024 CBC w/ auto diff sodium 142 Not Available [facility] (Medical Records) [address] [place], [address], 11/15/2024 10:25:01 11/16/1911/18/2024 CBC w/ auto diff potassium 4.9 Not Available [facility] (Medical Records) [address] [place], [address], 11/15/2024 10:25:01 11/16/19 25 11/18/2024 CBC w/ auto diff glucose 144 Not Available [facility] (Medical Records) [address] [place], [address], 11/15/2024 10:25:01 11/16/19 25 11/18/2024 CBC w/ auto diff BUN 38 Not Available [facility] (Medical Records) [address] [place] [address], [address], 11/15/2024 10:25:01 11/16/19 25 11/18/2024 CBC w/ auto diff creatinine 4.19 Not Available [facility] (Medical Records) [address] [place] [address], [address], 11/15/2024 10:25:01 11/16/19 25 11/18/2024 CBC w/ auto diff WBC 5.2 Not Available [facility] (Medical Records) [address] [place] [address], [address], 11/15/2024 10:25:01 11/16/19 25 11/18/2024 CBC w/ auto diff RBC 3.50 Not Available [facility] (Medical Records) [address] [place] [address], [address], 11/15/2024 10:25:01 11/16/19 25 11/18/2024 CBC w/ auto diff HGB 10.3 Not Available [facility] (Medical Records) [address] [place] [address], [address], 11/15/2024 10:25:01 11/16/19 25 11/18/2024 CBC w/ auto diff HCT 33.1 Not Available [facility] (Medical Records) [address] [place] [address], [address], 11/15/2024 10:25:01 11/16/19 25 11/18/2024 CBC w/ auto diff plt 195 Not Available [facility] (Medical Records) [address] [place] [address] [place], [address], 11/15/2024 10:25:01 11/13/19 25 11/12/2024 CMP, serum or plasm a sodium 142 Not Available [facility] (Medical Records) [address] [place], [address], 11/14/2024 11:19:04 11/13/19 25 11/12/2024 CMP, serum or plasm a potassium 4.9 Not Available [facility] (Medical Records) [address] [place], [address], 11/14/2024 11:19:04 11/13/19 25 11/12/2024 CMP, serum or plasm a BUN 38 Not Available [facility] (Medical Records) [address] [place], [address], 11/14/2024 11:19:04 11/13/19 25 11/12/2024 CMP, serum or plasm a creatinine 4.19 Not Available [facility] (Medical Records) [address] [place], [address], 11/14/2024 11:19:04 11/13/19 25 11/12/2024 CMP, serum or plasm a glucose 144 Not Available [facility] (Medical Records) [address] [place], [address], 11/14/2024 11:19:04 11/13/19 25 11/12/2024 CMP, serum or plasm a WBC 5.2 Not Available [facility] (Medical Records) [address] [place], [address], 11/14/2024 11:19:04 11/13/19 25 11/12/2024 CMP, serum or plasm a RBC 3.50 Not Available [facility] (Medical Records) [address] [place], [address], 11/14/2024 11:19:04 11/13/19 25 11/12/2024 CMP, serum or plasm a HGB 10.3 Not Available [facility] (Medical Records) [address] [place], [address], 11/14/2024 11:19:04 11/13/19 25 11/12/2024 CMP, serum or plasm a HCT 33.1 Not Available [facility] (Medical Records) [address] [place], [address], 11/14/2024 11:19:04 11/13/19 25 11/12/2024 CMP, serum or plasm a plt 195 Not Available [facility] (Medical Records) [address] [place], [address], 11/14/2024 11:19:04 11/13/19 25 11/12/2024 CMP, serum or plasm a sodium 142 Not Available [facility] (Medical Records) [address] [place], [address], 11/14/2024 11:17:12 11/13/19 25 11/12/2024 CMP, serum or plasm a potassium 4.9 Not Available [facility] (Medical Records) [address] [place], [address], 11/14/2024 11:17:12 11/13/19 25 11/12/2024 CMP, serum or plasm a glucose 144 Not Available [facility] (Medical Records) [address] [place], [address], 11/14/2024 11:17:12 11/13/19 25 11/12/2024 CMP, serum or plasm a BUN 38 Not Available [facility] (Medical Records) [address] [place], [address], 11/14/2024 11:17:12 11/13/19 25 11/12/2024 CMP, serum or plasm a creatinine 4.19 Not Available [facility] (Medical Records) [address] [place], [address], 11/14/2024 11:17:12 11/13/19 25 11/12/2024 CMP, serum or plasm a WBC 5.2 Not Available [facility] (Medical Records) [address] [place], [address], 11/14/2024 11:17:12 11/13/19 25 11/12/2024 CMP, serum or plasm a RBC 3.50 Not Available [facility] (Medical Records) [address] [place], [address], 11/14/2024 11:17:12 11/13/19 25 11/12/2024 CMP, serum or plasm a HGB 10.3 Not Available [facility] (Medical Records) [address] [place], [address], 11/14/2024 11:17:12 11/13/19 25 11/12/2024 CMP, serum or plasm a HCT 33.1 Not Available [facility] (Medical Records) [address] [place], [address], 11/14/2024 11:17:12 11/13/19 25 11/12/2024 CMP, serum or plasm a plt 195 Not Available [facility] (Medical Records) [address] [place], [address], 11/14/2024 11:17:12 03/29/20 25 03/30/2025 LIPID PANEL cholesterol, total 120 mg/dL 100-19 9 normal Not Available [facility] ([facility]) [address] [place], [address], 03/30/2025 08:07:47 03/29/20 25 03/30/2025 LIPID PANEL triglyceride s 113 mg/dL 0-149 normal Not Available [facility] ([facility]) [address] [place], [address], 03/30/2025 08:07:47 03/29/20 25 03/30/2025 LIPID PANEL HDL cholesterol 23 mg/dL >39 below low normal Not Available [facility] ([facility]) [address] [place], [address], 03/30/2025 08:07:47 03/29/20 25 03/30/2025 LIPID PANEL VLDL cholesterol leisa 21 mg/dL 5-40 Not Available [facility] ([facility]) [address] [place], [address], 03/30/2025 08:07:47 03/29/20 25 03/30/2025 LIPID PANEL LDL chol calc ([facility]) 76 mg/dL 0-99 Not Available [facility] ([facility]) [address] [place], [address], 03/30/2025 08:07:47 03/29/20 25 03/30/2025 LIPID PANEL LDL calc comment: CAR SHAGGER Not Available [facility] ([facility]) [address] [place], [address], 03/30/2025 08:07:47 03/29/20 25 03/30/2025 ALT+A ST AST (SGOT) 19 IU/L 0-40 normal Not Available [facility] ([facility]) [address] [place], [address], 03/30/2025 08:07:48 03/29/2003/30/2025 ALT+A ST ALT (SGPT) 15 IU/L 0-44 normal Not Available [facility] ([facility]) [address] [place], [address], 03/30/2025 08:07:48 03/29/20 25 03/30/2025 HEP B CORE AB, IGM hep B core Ab, IgM Negati ve negati ve Not Available [facility] ([facility]) [address] [place], [address], 03/30/2025 10:06:28 03/29/2003/30/2025 ALK PHOS ISOEN ZYME alkaline phosphatase 217 IU/L 44-121 above high normal Eff ectiv e Septe mber 2024 Alkal ine Phosp hatas e refer ence inter mariah will be baird ing to: Age Male Femal e 0 - 5 days 47 - 127 47 - 127 6 - 10 days 29 - 242 29 - 242 11 - 20 days 109 - 357 109 - 357 21 - 30 days 94 - 494 94 - 494 1 - 2 month s 149 - 539 149 - 539 3 - 6 month s 131 - 452 131 - 452 7 - 11 month s 117 - 401 117 - 401 12 month s - 6 years 158 - 369 158 - 369 7 - 12 years 150 - 409 150 - 409 13 years 156 - 435 78 - 227 14 years 114 - 375 64 - 161 15 years 88 - 279 56 - 134 16 years 74 - 207 51 - 121 17 years 63 - 161 47 - 113 18 - 20 years 51 - 125 42 - 106 21 - 50 years 47 - 123 41 - 116 51 - 80 years 49 - 135 51 - 125 >80 years 48 - 129 48 - 129 Not Available [facility] ([facility]) [address] [place], [address], 04/03/2025 06:05:43 03/29/20 25 04/02/2025 ALK PHOS ISOEN ZYME liver fraction: 63 % 13-88 Not Available [facility] ([facility]) [address] [place], [address], 04/03/2025 06:05:43 03/29/2004/02/2025 ALK PHOS ISOEN ZYME bone fraction: 37 % 12-68 Not Available [facility] ([facility]) [address] [place], [address], 04/03/2025 06:05:43 03/29/20 25 04/02/2025 ALK PHOS ISOEN ZYME intestinal frac.: 0 % 0-18 Not Available [facility] ([facility]) [address] [place], [address], 04/03/2025 06:05:43 03/29/2003/30/2025 CALCI TRIOL (1,25 DI-OH VIT D) calcitriol(1 ,25 di-oh vit D) 16.9 pg/mL 24.8-8 1.5 below low normal Not Available [facility] ([facility]) [address] [facility], [place], [address], 04/03/2025 06:05:44 03/29/2003/30/2025 VITAM IN D, 25-HY DROXY vitamin D, 25-hydroxy 30.0 NG/mL 30.0-1 00.0 Vitam in D defic iency has been defin ed by the Insti tute of [facility] ine and an Endoc rine Socie ty pract ice guide line as a level of serum 25-OH vitam in D less than 20 ng/mL (1,2) . The Endoc rine Socie ty went on to furth er defin e vitam in D insuf ficie ncy as a level betwe en 21 and 29 ng/mL (2). 1. IOM (Inst itute of Medic ine). 2009. Libia ry refer ronae mikaela es for calci um and D. Millie caputo [place]: The [facility] . 2. Ashly huang MF, Chela ey [place], Todd off-F errar i BAILEY, et al. Evalu ation , treat ment, and preve ntion of vitam in D defic iency : an Endoc rine Socie ty clini leisa pract ice guide line. JCEM. 2010; 96(7) :1911 -30. Not Available [facility] ([facility]) [address] [facility], [place], [address], 04/03/2025 06:05:44 03/29/2003/30/2025 GGT GGT 76 IU/L 0-65 above high normal Not Available [facility] ([facility]) [address] [facility], [place], [address], 04/03/2025 06:05:45 03/29/20 25 03/30/2025 ALP, TOTAL W/RFX TO ISOEN ZYMES alkaline phosphatase 218 IU/L 44-121 above high normal Not Available [facility] ([facility]) [address] [place], [address], 05/04/2025 18:06:11 03/29/20 25 05/04/2025 ALP, TOTAL W/RFX TO ISOEN ZYMES liver fraction: COMMEN T % [facility] was unabl e to colle ct suffi cient speci men to perfo rm the follo wing test( s), and is provi ding the patie nt with re-co llect ion instr uctio ns. Not Available [facility] ([facility]) [address] [place], [address], 05/04/2025 18:06:11 03/29/20 25 05/04/2025 ALP, TOTAL W/RFX TO ISOEN ZYMES bone fraction: COMMEN T % [facility] was unabl e to colle ct suffi cient speci men to perfo rm the follo wing test( s), and is provi ding the patie nt with re-co llect ion instr uctio ns. Not Available [facility] ([facility]) [address] [place], [address], 05/04/2025 18:06:11 03/29/20 25 05/04/2025 ALP, TOTAL W/RFX TO ISOEN ZYMES intestinal frac.: COMMEN T % [facility] was unabl e to colle ct suffi cient speci men to perfo rm the follo wing test( s), and is provi ding the patie nt with re-co llect ion instr uctio ns. Not Available [facility] ([facility]) [address] [place], [address], 05/04/2025 18:06:11 03/29/20 25 03/30/2025 ALP, TOTAL W/RFX TO ISOEN ZYMES alkaline phosphatase 218 IU/L 44-121 above high normal Eff ectiv e Septe mber 2024 Alkal ine Phosp hatas e refer ence inter mariah will be baird ing to: Age Male Femal e 0 - 5 days 47 - 127 47 - 127 6 - 10 days 29 - 242 29 - 242 11 - 20 days 109 - 357 109 - 357 21 - 30 days 94 - 494 94 - 494 1 - 2 month s 149 - 539 149 - 539 3 - 6 month s 131 - 452 131 - 452 7 - 11 month s 117 - 401 117 - 401 12 month s - 6 years 158 - 369 158 - 369 7 - 12 years 150 - 409 150 - 409 13 years 156 - 435 78 - 227 14 years 114 - 375 64 - 161 15 years 88 - 279 56 - 134 16 years 74 - 207 51 - 121 17 years 63 - 161 47 - 113 18 - 20 years 51 - 125 42 - 106 21 - 50 years 47 - 123 41 - 116 51 - 80 years 49 - 135 51 - 125 >80 years 48 - 129 48 - 129 Not Available [facility] ([facility]) [address] [place], [address], 04/04/2025 20:06:26 03/29/2004/04/2025 ALP, TOTAL W/RFX TO ISOEN ZYMES liver fraction: COMMEN T % [facility] was unabl e to colle ct suffi cient speci men to perfo rm the follo wing test( s), and is provi ding the patie nt with re-co llect ion instr uctio ns. Not Available [facility] ([facility]) [address] [place], [address], 04/04/2025 20:06:26 03/29/20 25 04/04/2025 ALP, TOTAL W/RFX TO ISOEN ZYMES bone fraction: COMMEN T % [facility] was unabl e to colle ct suffi cient speci men to perfo rm the follo wing test( s), and is provi ding the patie nt with re-co llect ion instr uctio ns. Not Available [facility] ([facility]) [address] [facility], [place], [address], 04/04/2025 20:06:26 03/29/20 25 04/04/2025 ALP, TOTAL W/RFX TO ISOEN ZYMES intestinal frac.: COMMEN T % [facility] was unabl e to colle ct suffi cient speci men to perfo rm the follo wing test( s), and is provi ding the patie nt with re-co llect ion instr uctio ns. Not Available [facility] ([facility]) [address] [facility], [place], [address], 04/04/2025 20:06:26 03/29/20 25 03/30/2025 GGT WITH REFLE X AMYLA SE/LI PASE GGT 76 IU/L 0-65 above high normal Not Available [facility] ([facility]) [address] [facility], [place], [address], 04/04/2025 20:06:27 03/29/20 25 03/30/2025 GGT WITH REFLE X AMYLA SE/LI PASE amylase 56 U/L 31-110 normal Not Available [facility] ([facility]) [address] [facility], [place], [address], 04/04/2025 20:06:27 03/29/20 25 03/30/2025 GGT WITH REFLE X AMYLA SE/LI PASE lipase 22 U/L 13-78 normal Not Available [facility] ([facility]) [address] [place], [address], 04/04/2025 20:06:27 03/29/20 25 04/05/[address] PROBL EM request problem Commen t This is an Amend ed Repor t. Addit ional test resul ts or inter preti ve comme nts were added after the origi nal repor t was issue d. Not Available [facility] ([facility]) [address], [place], [address], 05/04/2025 18:06:13 03/29/20 25 04/04/[address] PROBL EM request problem COMMEN T [facility] was unabl e to colle ct suffi cient speci men to perfo rm the follo wing test( s), and is provi ding the patie nt with re-co llect ion instr uctio ns. TEST: [id number] Liver Fract ion: Panel : [id number] 7 16797 0 Bone Fract ion: Panel : [id number] 7 20590 1 Intes tinal Frac. : Panel : [id number] 7 Not Available [facility] ([facility]) [address], [place], [address], 04/04/2025 20:06:27 03/29/20 25 05/04/[address] PROBL EM request problem COMMEN T [facility] was unabl e to colle ct suffi cient speci men to perfo rm the follo wing test( s), and is provi ding the patie nt with re-co llect ion instr uctio ns. TEST: [id number] 9 Liver Fract ion: Panel : 40243 7 44817 0 Bone Fract ion: Panel : 35657 7 74990 1 Intes tinal Frac. : Panel : 00587 7 Not Available [facility] ([facility]) [address], [place], [address], 05/04/2025 18:06:13 10/27/19 25 10/26/2024 XR, chest , 2 view No observ ation record ed. [facility] (Medical Records) [address] [place], [address], 11/02/2024 10:41:05 11/18/19 25 11/17/2024 XR, chest No observ ation record ed. [facility] (Imaging) [address] [place], [address], 11/17/2024 19:30:42 11/18/19 25 11/17/2024 CT, abdom en + pelvi s, w/o contr ast No observ ation record ed. [email or web address] [facility] (Medical Records) [address] [place], [address], 11/18/2024 11:18:14 01/21/2001/20/2025 NM, bone scan, whole body No observ ation record ed. [address] (Medical Records) [address] [place], [address], 01/25/2025 16:18:26 03/01/2003/01/2025 CT, chest , w/o contr ast No observ ation record ed. [address] (Medical Records) [address] [place], [address], 03/17/2025 16:49:32 Result Notes None recorded. Problems Name Problem SNOMED Code Status Onset Date Resolution Date Notes Provider Name and Address Organization Details Recorded Time Otitis media 65395990 [facility] [place] 14:00:47 Otitis externa 9709237 Completed 01/15/2017 [facility] [place] 7 14:00:31 Body mass index 30+ - obesity 996909619 Completed 05/13/2017 Leigh Ann Quinteros PA-C [address], [place], [address] , [facility] 7 17:10:10 Type 2 diabetes mellitus 47889261 Completed 01/05/2017 Leigh Ann Quinteros PA-C [address], [place], [address] , [facility] 7 12:04:58 Tachycar jimi 0961604 Completed 08/17/2023 Vivi De MD [address] [facility] [address], [place], [address] , [facility] 4 16:02:45 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 94207636 Active Elena Mata MA null, [facility] 4 15:12:02 Primary erectile dysfunct ion 052634907 Active Elena Mata MA null, [facility] 4 15:12:02 Chronic kidney disease stage 3 915956264 Completed 11/24/2023 Vivi De MD [address] [facility] [address], [place], [address] , [facility] 4 19:07:37 Malaise and fatigue 215349838 Completed 201102/07/2014 RECORDED 04/28/20 12 9:25AM BY LIBBY STEPHEN MA, ANNOTATI ON/ADDEN DUM Leigh Ann Quinteros PA-C [address] [address], [place], [address] , [facility] 6 14:37:53 Malaise and fatigue 962073770 Completed 201103/06/2014 RECORDED 04/28/20 12 9:25AM BY LIBBY STEPHEN MA, ANNOTATI ON/ADDEN DUM Leigh Ann Quinteros PA-C [address] [facility] [address], [place], [address] , [facility] 6 14:37:53 Counseli ng Completed 201102/07/2014 RECORDED 07/23/20 12 1:53PM BY CASIE AUSTIN MA, ANNOTATI ON/ADDEN DUM Leigh Ann Quinteros PA-C [address] [facility] [address], [place], [address] , [facility] 6 14:37:53 Infectiv e otitis externa 66443578 Completed 201102/07/2014 RECORDED 07/23/20 12 1:53PM BY CASIE AUSTIN MA, ANNOTATI ON/ADDEN DUM Leigh Ann Quinteros PA-C [address] [address], [place], [address] , [facility] 6 14:37:53 Active or passive immuniza tion Completed 201102/07/2014 RECORDED 07/23/20 12 2:00PM BY CASIE AUSTIN MA, OFFICE VISIT Leigh Ann Quinteros PA-C [address] [facility] [address], [place], [address] , [facility] 6 14:37:53 Counseli ng Completed 201103/06/2014 RECORDED 07/23/20 12 1:53PM BY CASIE AUSTIN MA, ANNOTATI ON/ADDEN DUM Leigh Ann Quinteros PA-C [address] [facility] [address], [place], [address] , [facility] 6 14:37:53 Infectiv e otitis externa 80218633 Completed 201103/06/2014 RECORDED 07/23/20 12 1:53PM BY CASIE AUSTIN MA, ANNOTATI ON/ADDEN DUM Leigh Ann Quinteros PA-C [address] [facility] [address], [place], [address] , [facility] 6 14:37:53 Active or passive immuniza tion Completed 201103/06/2014 RECORDED 07/23/20 12 2:00PM BY CASIE AUSTIN MA, OFFICE VISIT Leigh Ann Quinteros PA-C [address] [facility] [address], [place], [address] , [facility] 6 14:37:53 Administ ration of diphther ia and tetanus vaccine Completed 201202/07/2014 RECORDED 11/23/19 13 2:44PM BY CASIE AUSTIN MA, ANNOTATI ON/ADDEN DUM Leigh Ann Quinteros PA-C [address] [facility] [address], [place], [address] , [facility] 6 14:37:53 Administ ration of diphther ia and tetanus vaccine Completed 201203/06/2014 RECORDED 11/23/19 13 2:44PM BY CASIE AUSTIN MA, ANNOTATI ON/ADDEN DUM Leigh Ann HENLEY-C [address], [place], [address] , [facility] 6 14:37:53 Type 2 diabetes mellitus without complica tion 710872447 Completed 201202/07/2014 RECORDED 04/14/20 13 3:34PM BY CASIE AUSTIN MA, ANNOTATI ON/ADDEN DUM Leigh Ann HENLEY-C [address], [place], [address] , [facility] 6 14:37:53 Influenz a vaccine needed 17156078653 06 Completed 201202/07/2014 RECORDED 04/14/20 13 3:41PM BY CASIE AUSTIN MA, OFFICE VISIT Leigh Ann BEEBEC [address], [place], [address] , [facility] 6 14:37:53 Type 2 diabetes mellitus without complica tion 357148112 Completed 201203/06/2014 RECORDED 04/14/20 13 3:34PM BY CASIE AUSTIN MA, ANNOTATI ON/ADDEN DUM Leigh Ann BEEBEC [address], [place], [address] , [facility] 6 14:37:53 Influenz a vaccine needed 19271026310 06 Completed 201203/06/2014 RECORDED 04/14/20 13 3:41PM BY CASIE AUSTIN MA, OFFICE VISIT Legih Ann Quinteros PA-C [address], [place], [address] , [facility] 6 14:37:53 Gout 14371589 Active 2013 LUIS Ferrari, [facility] 4 15:12:02 Hyperlip idemia 71318233 Active 2013 LUIS Ferrari, [facility] 4 15:12:02 Chronic kidney disease stage 1 920778016 Completed 201312/15/2016 STORY: ELEVATED MICROALB UMIN; RECORDED 01/19/20 14 2:14PM BY CASIE AUSTIN MA, OFFICE VISIT Leigh Ann Quinteros PA-C [address] [facility] [address], [place], [address] , [facility] 7 14:56:27 Displace ment of lumbar interver tebral disc without myelopat hy 14635400 Active 2013 SEES PSSP LUIS Ferrari, [facility] 4 15:12:01 Proteinu nazia 65055623 Active 2013 LUIS Ferrari, [facility] 4 15:12:02 Obesity 230657871 Active 2013 LUIS Ferrari, [facility] 4 15:12:02 Urolith Active 2013 HAS SEEN UROLOGY LUIS Ferrari, [facility] 4 15:12:02 Scrotal varices Active 2013 LUIS Ferrari, [facility] 4 15:12:02 Adult health examinat ion Completed 201303/06/2014 RECORDED 01/19/20 14 2:13PM BY CASIE AUSTIN MA, ANNOTATI ON/ADDEN DUM Leigh Ann Quinteros PA-C [address] [facility] [address], [place], [address] , [facility] 6 14:37:53 Insomnia 000877914 Active 2013 [facility] [place] 4 15:12:01 Disorder of cellular componen t of blood 545786617 Completed 201308/20/2024 Vivi De MD [address] [facility] [address], [place], [address] , [facility] 5 22:35:18 Uncontro lled type 2 diabetes mellitus 337388936 Completed 201301/05/2017 RECORDED 01/21/20 14 11:18AM BY VIANCA SENA, HISTORIC AL SUMMARY Leigh Ann Quinteros PA-C [address] [facility] [address], [place], [address] , [facility] 7 12:05:05 Noncompl iance with therapeu tic regimen 699053934 Active 2017 LUIS Ferrari, [facility] 4 15:12:01 Diabetic on insulin 755746706 Active 2017 LUIS Ferrari, [facility] 4 15:12:01 Hyperten sive renal disease 80739647 Active 2019 DX: I12.9 Not Available [facility] 4 18:06:38 Poor short-te rm memory 467510382 Active 2019 LUIS Ferrari, [facility] 4 15:12:02 Renal disorder due to type 2 diabetes mellitus 643176851 Active 2020 Not Available [facility] 4 18:06:38 Hyperkal emia 76381046 Completed 202008/23/2023 Vivi De MD [address] [facility] [address], [place], [address] , [facility] 4 13:51:59 Acute kidney injury 22598825 Completed 202008/15/2023 Vivi De MD [address] [facility] [address], [place], [address] , [facility] 4 15:46:57 Iliopsoa s bursitis of right hip 68667991595 96302 Completed 202008/17/2023 Vivi De MD [address] [facility] [address], [place], [address] , [facility] 4 15:47:00 Hypomagn esemia 338269783 Active 2020 Not Available [facility] 4 18:06:37 Chronic kidney disease stage 4 358038056 Active 2023 Vivi De MD [address] [facility] [address], [place], [address] , [facility] 4 19:07:44 Hyperten kiko monitori ng status 226256271 Active 2023 dis-enro ll Tasia Meneses [facility], [facility] 4 09:51:37 Hyperpar athyroid ism due to renal insuffic iency 36049211 Active 2023 Vivi De MD [address] [facility] [address], [place], [address] , [facility] 4 07:19:59 Heart failure 83822038 Active 2024 Lorenzo Quinteros PA-C [address] [facility] [address], [place], [address] , [facility] 5 09:19:32 History of hepatiti s B 603372754 Active 2024 Vivi De MD [address] [facility] [address], [place], [address] , [facility] 5 19:16:02 Hepatiti s B immune 059484323 Completed 202411/24/2024 Vivi De MD [address] [address], [place], [address] , [facility] 15:38:43 Nodule of lung 808220083 Active 2024 Vivi De MD [address] [address], [place], [address] , [facility] 5 16:33:41 Notes:Some problems listed i n Documents: #[id number], #[id number], #[id number], #[id number], #[id number] could not be added to this patient's chart. Please review these documents and add these problems to the patient's chart manually as needed. Problem Notes None recorded. Procedures Surgical History Date Name Laterality Status Provider Name and Address Organization Details Recorded Time 08/22/19 25 Advanced Care Planning completed Vivi De MD [address] [address], [place], [address], [facility] 08/20/2024 22:29:02 08/17/19 24 Advanced Care Planning completed Vivi De MD [address] [address], [place], [address], [facility] 08/15/2023 15:44:21 05/04/20 23 removal of catheter completed Yesi Farris [facility] 05/06/2023 13:15:36 04/10/20 23 Diabetic Foot Exam (Monofilament) completed Vivi De MD [address], [address], [facility] 04/10/2023 13:37:37 03/26/20 23 retrograde pyelography with contrast completed Yesi Farris [facility] 03/27/2023 09:26:09 03/26/20 23 ureteric lithotripsy completed Yesi Farris [facility] 03/27/2023 09:26:39 03/26/20 23 insertion of stent into ureter completed Yesi Farris [facility] 03/27/2023 09:26:57 07/15/20 22 Advanced Care Planning completed Felicita Cai [facility] 07/17/2022 13:15:29 03/17/20 22 Diabetic Foot Exam (Monofilament) completed Vivi De MD [address] [address], [place], [address], [facility] 03/17/2022 15:17:06 06/18/20 21 Advanced Care Planning completed Vivi De MD [address] [facility] [address] [facility], [place], [address], [facility] 06/18/2021 08:50:42 06/18/20 21 Diabetic Foot Exam (Monofilament) completed Vivi De MD [address] [address], [place], [address], [facility] 06/18/2021 18:56:54 06/04/20 20 Six-Item Cognitive Test completed Casie badillo MA [facility] 06/04/2020 15:16:46 09/15/19 20 Colonoscopy completed Casie badillo MA [facility] 06/04/2020 15:14:36 04/15/20 19 Mini-Cog Test completed Casie badillo MA [facility] 04/15/2019 15:42:06 09/20/19 19 Diabetic Foot Exam (Monofilament) completed Celia Ortiz MA [facility] 09/20/2018 14:36:35 04/16/20 18 Diabetic Foot Exam (Monofilament) completed Clemencia Lindsey MA [facility] 04/16/2018 14:44:34 03/05/20 18 Diabetic Foot Exam (Monofilament) completed Clemencia Lindsey MA [facility] 03/05/2018 12:51:44 01/27/20 18 Diabetic Foot Exam (Monofilament) completed Clemencia Lindsey MA [facility] 01/26/2018 09:37:53 12/09/19 18 Diabetic Foot Exam (Monofilament) completed Dottie Moe [facility] 12/08/2017 15:02:35 07/27/18 58 tonsillectomy completed Hadley Main [facility] 07/15/2022 14:41:22 Imaging Results None recorded. Procedure Notes None recorded. Medical Equipment None Reported. Allergies Allergen ID Allergen Name Allergen Category Reaction Reaction Severity Criticality Documentation Date Start Date Code Code System Note Provider Name and Address Organization Details Recorded Time 64962 Victoza medicatio n abdominal pain Not available Not available 04/16/2018 89951 3 RxNorm Leigh Ann Aldair PELAEZ [address] [facility] [address], [place], [address], [facility] 8 15:07:08 22390 liragluti de medicatio n other Not available Not available 05/20/20212020 74794 8 RxNorm Leisa Charles [facility], [facility] 1 10:45:47 34827 Product containin g angiotens in-conver ting enzyme inhibitor (product) medicatio n Not available Not available low 11/24/2023 70624 009 SNOMED See renal note Vivi De MD [address] [facility] [address], [place], [address], [facility] 4 19:07:27 Medications Name Sig Start Date [...] t choice ultra thin lancet s 31g [facility] 12/09 completed Not Available Not Available Not Available indometha demarcus 50 mg caps 06/04 completed Not Available Not Available Not Available simple diagnosti cs [facility]ancing [facility] 03/29 completed Not Available Not Available Not Available [...] completed Not Available Not Available Not Available cetirizin e 5 mg tablet TAKE 1 TABLET BY MOUTH EVERY DAY IN THE MORNING 2024 active Not Available Not Available Not Avai lable ibuprofen 800 mg tablet 06/04 completed Not [...] FOR 90 DAYS, FOR GOUT PREVENTI ON. 2024 active Not Available Not Available Not Avai lable ciproflox acin 500 mg tablet TAKE 1 [...] Not Available Not Available No t Available triamcino lone acetonide 0.1 % topical cream APPLY THIN COAT TO AFFECTED AREA TWICE A DAY active Not Available Not Available No t Available ketorolac 0.5 % eye drops APPLY ONE DROP TO EACH EYE 4 TIMES DAILY. active Not Available Not Available No t [...] completed Not Available Not Available Not Available prednisol one acetate 1 % eye drops,morteza pension INSTILL 1 DROP INTO EACH EYE FOUR TIMES DAILY. active Not Available Not Available No t Available magnesium oxide 400 mg (241.3 mg magnesium ) tablet TAKE 1 TABLET BY MOUTH EVERY DAY 11/14 completed Not Available Not Available Not Available temazepam 15 mg capsule Take 1 capsule every day by oral route at bedtime for 30 days, for insomnia . 2024 active THIS [facility] Not Available Not Available Not Available oxycodone -acetamin ophen 10 mg-325 mg [...] Available Not Available sodium polystyre ne sulfonate 15 gram oral powder MIX & TAKE 30 GRAMS BY MOUTH 3 TIMES PER WEEK active Not Available Not Available No t Available pioglitaz one 30 mg tablet TAKE 1 TABLET BY MOUTH EVERY DAY active Not Available Not Available No t Available hydroxyzi ne HCl 10 mg tablet TAKE 1 TABLET BY MOUTH EVERY DAY AT BEDTIME FOR 30 DAYS 03/30 completed per [facility], can just take cetirizi ne Not Available Not Available Not Available metformin ER 500 mg tablet,ex tended release 24 hr Take 4 tablets every day by oral route for 90 days. 04/07 completed PER Endo Not Available Not Available Not Available calcitrio l 0.25 mcg capsule TAKE 1 CAPSULE BY MOUTH THREE TIMES A WEEK active Not Available Not Available No t Available Murine Ear 6.5 % drops INSTILL 5 DROPS INTO AFFECTED EAR(S) BY OTIC ROUTE 2 TIMES PER DAY FOR NO MORE THAN 4 DAYS 07/15 completed Not Available Not Available Not Available azithromy demarcus 500 mg tablet TAKE 1 TABLET BY MOUTH EVERY DAY FOR 7 DAYS 07/15 completed Not Available Not Available Not Available Vitamin D3 25 mcg (1,000 unit) capsule Take 1 capsule every day by oral route. 2024 active OTC; per lab results on 03/29/25 Not Available Not Available Not Available Novolog [...] completed Not Available Not Available Not Available Toujatindero SoloStar U-300 Insulin 300 unit/mL (1.5 mL) [...] Available FreeStyle Jam 3 Plus Sensor device USE TO MONITOR BLOOD SUGAR CONTINUO USLY, CHANGE EVERY 15 DAYS active Not Available Not Available No t Available Vitals Date Recorded Body height Body mass index (BMI) Body weight Heart rate Oxygen saturation Body temperature Systolic And Diastolic Provider Name and Address Organization Details Last Updated DateTime 5 177.8 cm 30 kg/m2 27583.8 1 g 92 /min 96 % 98.1 [degF] 120/63 mm[Hg] Azra Torres MA [facility] 5 08:31:24 Date Recorded Body height Body mass index (BMI) Body weight Oxygen saturation Heart rate Body temperature Systolic And Diastolic Provider Name and Address Organization Details Last Updated DateTime 5 177.8 cm 29.6 kg/m2 47063.1 3 g 96 % 100 /min 98.4 [degF] 107/55 mm[Hg] Dottie Moe MA [facility] 5 14:04:18 Date Recorded Body height Body mass index (BMI) Body weight Heart rate Oxygen saturation Body temperature Systolic And Diastolic Provider Name and Address Organization Details Last Updated DateTime 5 177.8 cm 30 kg/m2 43162.8 1 g 80 /min 97 % 98.1 [degF] 133/61 mm[Hg] Azra Torres MA [facility] 5 12:57:35 Date Recorded Body height Body mass index (BMI) Body weight Heart rate Oxygen saturation Body temperature Systolic And Diastolic Provider Name and Address Organization Details Last Updated DateTime 5 177.8 cm 30.3 kg/m2 72463.9 9 g 85 /min 96 % 98.2 [degF] 124/58 mm[Hg] Casie stubbs MA [facility] 5 14:08:01 Date Recorded Body height Body mass index (BMI) Body weight Oxygen saturation Heart rate Body temperature Systolic And Diastolic Provider Name and Address Organization Details Last Updated DateTime 5 177.8 cm 29.2 kg/m2 13552.6 5 g 97 % 84 /min 98 [degF] 113/53 mm[Hg] Dottie Moe MA [facility] 5 14:35:17 Social History Question Answer Notes LastModified by Organizat ion Details LastModified Time Tobacco Smoking Status [facility]oker [facility] [place] 03/30/2014 15:10:37 Do You Have An Advance [...] Date Of Your Most Recent Tobacco Screening? 03/07/2025 Information not available 03/07/2025 How Many Children Do You Have? 0 [...] not available 06/26/2014 Are you able to walk independently without assistance or assistive devices? YESWOREST Information not available 10/02/2021 Are you able to care for yourself independently? 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 Information not available 06/26/2014 Do [...] 08/15/2023 18:06:39 zoster live 7 completed LUIS Ferrari, [facility] 08/17/2023 15:12:09 COVID-19, mRNA, LNP-S, PF, 100 mcg/0.5mL dose or 50 mcg/0.25mL dose 1 completed LUIS Ferrari, [facility] 08/17/2023 15:12:08 COVID-19, mRNA, LNP-S, PF, 100 mcg/0.5mL dose or 50 mcg/0.25mL dose 1 completed LUIS Ferrari [facility] 08/17/2023 15:12:08 COVID-19, mRNA, LNP-S, PF, 100 mcg/0.5mL dose or 50 mcg/0.25mL dose 1 completed LUIS Ferrari, [facility] 08/17/2023 15:12:08 pneumococcal polysaccharide PPV23 9 [facility] [place] 08/17/2023 15:12:08 Influenza, split virus, quadrivalent, PF 5 [facility] [place] 08/17/2023 15:12:09 Pneumococcal conjugate PCV 13 8 completed LUIS Ferrari, [facility] 08/17/2023 15:12:08 Influenza, split virus, trivalent, PF 4 [facility] [place] 08/17/2023 15:12:09 Influenza, high-dose, quadrivalent, PF 1 completed LUIS Ferrari, [facility] 08/17/2023 15:12:08 Influenza, split virus, quadrivalent, PF 7 completed LUIS Ferrari, [facility] 08/17/2023 15:12:09 Influenza, high-dose, quadrivalent, PF 0 completed LUIS Ferrari, [facility] 08/17/2023 15:12:08 Influenza, split virus, quadrivalent, PF 8 completed LUIS Ferrari [facility] 08/17/2023 15:12:09 Influenza, high-dose, trivalent, PF 9 completed ElenaLUIS Eaton [facility] 08/17/2023 15:12:09 Td (adult), 2 Lf tetanus toxoid, preservative free, adsorbed 2 completed LUIS Ferrari [facility] 08/17/2023 15:12:09 Influenza, high-dose, quadrivalent, PF 2 completed LUIS Ferrari, [facility] 08/17/2023 15:12:08 Influenza, high-dose, trivalent, PF 5 completed Leisa lucia [facility] 06/28/2025 15:23:25 Influenza, split virus, quadrivalent, PF 6 completed Not Available [facility] 08/13/2019 02:22:04 influenza, seasonal, intradermal, preservative free 2 completed Not Available [facility] 08/15/2023 18:06:39 Tdap 2 completed Not Available [facility] 08/15/2023 18:06:39 pneumococcal polysaccharide PPV23 2 completed Not Available [facility] 08/15/2023 18:06:38 influenza, seasonal, intradermal, preservative free 3 completed Not Available [facility] 08/15/2023 18:06:39 Influenza, high-dose, quadrivalent, PF 3 completed LUIS Zhao, [facility] 04/10/2023 13:42:39 Influenza, high-dose, trivalent, PF 4 [facility] [place] 04/11/2024 12:43:47 Past Encounters Encounter ID Performer Location Encounter Start Date Encounter Closed Date Diagnosis/Indication Diagnosis SNOMED-CT Code Diagnosis ICD10 Code Diagnosis IMO Codes Diagnosis Note [id number] [facility] [address] [facility] [place] [address] 01/14/2012 00:00:00 [id number] autoEComm erce [address] [facility] [place] [address] 02/06/2012 00:00:00 [id number] autoEComm erce [address] [facility] [place] [address] 04/28/2012 00:00:00 [id number] autoEComm erce [address] [facility] [place] [address] 07/23/2012 00:00:00 [id number] autoEComm erce [address] [facility] [place] [address] 11/22/2012 00:00:00 [id number] autoEComm erce [address] [facility] [place] [address] 04/14/2013 00:00:00 [id number] autoEComm erce [address] [facility] [place] [address] 10/14/2013 00:00:00 [id number] autoEComm erce [address] [facility] [place] [address] 01/18/2014 00:00:00 [id number] GONZÁLEZ Higgins Main Office [address] [facility] [address] [place], [place] [address] 03/30/2014 15:02:25 03/30/2014 15:47:43 Otitis media 64655043 [id number] Raheem García MD Main Office [address] [facility] [address] [place], [place] [address] 04/03/2014 14:00:31 04/03/2014 14:41:19 Otitis media 82509382 Otitis externa 1188982 Body mass index 30+ - obesity 085659020 [id number] Raheem García MD Main Office [address] [address] [place] [address] 04/10/2014 12:42:38 04/10/2014 14:10:01 Type 2 diabetes mellitus 00556739 Gout 63179079 Hyperlipidemia 01840642 Tachycardia 1652343 Needs infl uenza immunization 251746705 [id number] Raheem García MD Main Office [address] [address] [place] [address] 04/12/2014 11:13:33 04/12/2014 11:52:39 Tachycardia 3986645 Renal diso rder due to type 2 diabetes mellitus 646529332 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 68096169 [id number] Raheem García MD Main Office [address] [address] [place] [address] 06/26/2014 14:28:50 06/26/2014 15:25:36 Uncontrolled type 2 diabetes mellitus 576499816 Gout 49630562 [id number] Raheem García MD Main Office [address] [address] [place] [address] 09/25/2014 12:48:58 09/25/2014 13:46:32 Uncontrolled type 2 diabetes mellitus 798688913 Chronic ki dney disease stage 1 942421667 Gout 48028850 [id number] Raheem García MD Main Office [address] [address] [place] [address] 12/25/2014 12:40:02 12/25/2014 14:04:58 Renal disorder due to type 2 diabetes mellitus 122167465 Chronic ki dney disease stage 1 115088902 Gout 44826996 [id number] Raheem García MD Main Office [address] [address] [place] [address] 04/09/2015 13:08:37 04/09/2015 14:08:54 Renal disorder due to type 2 diabetes mellitus 101262668 Hyperlipidemia 07074191 Needs infl uenza immunization 663074653 Chronic ki dney disease stage 1 777053755 Gout 03255546 [id number] Raheem García MD Main Office [address] [address] [place] [address] 07/13/2015 09:21:56 07/13/2015 10:28:30 Renal disorder due to type 2 diabetes mellitus 519439964 E11.29 Varicella vaccination 68 874255 Z23 Primary er ectile dysfunction 377203950 N52.9 [id number] Leigh Ann Quinteros PA-C Main Office [address] [address] [place] [address] 07/31/2015 12:54:40 07/31/2015 14:11:16 Type 2 diabetes mellitus 25859312 E11.9 Uncontroll ed type 2 diabetes mellitus 628464612 E11.65 Uncontroll ed type II DM with [...] Consider premeal insulin. DIsconitnu e regular soda. [id number] Leigh Ann Quinteros PA-C Main Office [address] [address] [place] [address] 07/31/2015 13:44:46 07/31/2015 14:11:24 Renal disorder due to type 2 diabetes mellitus 497277535 E11.29 Total time spent teaching and coordinati [...] ics. Return in 6 weeks with log. [id number] Leigh Ann Quinteros PA-C Main Office [address] [facility] [address] [place] [address] 08/29/2015 12:48:13 08/29/2015 14:02:52 Uncontrolled type 2 diabetes mellitus 788165320 E11.65 UNcontroll ed DM with renal complicati [...] rder due to type 2 diabetes mellitus 934197021 E11.29 Renal disease due to HTN and uncontroll ed DM> PT. is advised to increase hydration. Avoid NSAIDs and eatlow POtassium diet. Continue ACEI as directed. Continue working on improving glycemic control with goal A1c under 7%. [id number] Leigh Ann Quinterso PA-C Main Office [address] [facility] [address] [place] [address] 09/28/2015 13:43:12 09/28/2015 14:44:32 Renal disorder due to type 2 diabetes mellitus 262386809 E11.29 Renal disease due to HTN and uncontroll ed DM> PT. is advised to increase hydration. Avoid NSAIDs and eat low Potassium diet. Repeat BMP and microalbum in Continue ACEI as directed. Continue working on improving glycemic control with goal A1c under 7%. F/u 6 wks. Repeat BMP , microalb., and A1c before next visit. [id number] Leigh Ann Quinteros PA-C Main Office [address] [facility] [address] [place] [address] 12/05/2015 14:24:52 12/05/2015 15:05:58 Uncontrolled type 2 diabetes mellitus 465502275 E11.65 Uncontroll ed DM with renal complicati ons. Noncomplia nt to medicines and diet. Strongly advised to start HUmalog premeal at 10 u TID and increase Toujeo to 60 u daily at HS. Continue oral antidiabet ics and return as scheduled in December. Noncomplia nce with treatment 1618451 Z91.19 Hyperkalemia 46336925 E8 7.5 Secondary to chronic renal disease and ACEI. Stable at this point . Will f/u with nephrology as scheduled. Chronic ki dney disease stage 3 714295874 N18.3 [id number] Raheem García MD Main Office [address] [place] [address] 01/15/2016 13:48:04 01/15/2016 14:43:13 Adult health examination 527414518 Z00.00 Renal diso rder due to type 2 diabetes mellitus 976259804 E11.29 Gout 44824250 M10.9 Hyperlipidemia 98505608 E78.5 Body mass index 30+ - obesity 435149308 Z68.30 [id number] Leigh Ann Quinteros PA-C Main Office [address] [place] [address] 02/05/2016 13:46:17 02/05/2016 14:41:03 Uncontrolled type 2 diabetes mellitus 280831695 E11.65 Uncontroll ed DM with renal complicati ons. Noncomplia nt to using Humalog and testing TID. Strongly advised to start HUmalog premeal at 10 u TID and increase Toujeo to 60 u daily at HS. Continue oral antidiabet ics . F/u 6 weeks. Obesity 131645234 E66.9 Renal diso rder due to type 2 diabetes mellitus 790754658 E11.29 F/u with the nephrologi st as scheduled. BP is stable. [id number] Chelsey mendenhall MD Main Office [address] [place] [address] 03/21/2016 15:21:07 03/21/2016 16:34:05 Impacted cerumen 38333944 H61.23 [id number] Leigh Ann Quinteros PA-C Main Office [address] [place] [address] 04/29/2016 15:12:17 04/29/2016 16:43:53 Uncontrolled type 2 diabetes mellitus 089787646 E11.65 Uncontroll ed DM with renal complicati ons. Noncomplia nt to using Humalog and testing TID. Strongly advised to start HUmalog premeal at 10 u TID and increase Toujeo to 65 u daily at HS. Continue oral antidiabet ics . ? if taking Glipizide or not. F/u 2 months. Needs infl uenza immunization 001290359 Z23 Renal diso rder due to type 2 diabetes mellitus 690856431 E11.29 F/u with the nephrologi st as scheduled. BP is stable. Chronic ki dney disease stage 3 333347861 N18.3 [id number] Leigh Ann Quinteros PA-C Main Office [address] [facility] [address] [facility] [place] [address] 09/01/2016 14:24:47 09/01/2016 15:22:08 Uncontrolled type 2 diabetes mellitus 785262676 E11.65 Increase Toujeo to 75 u daily. Start using Humalog premeal as discussed at 10 u in am and at lunch and 15 before dinner. Test glucose 2 hrpc until next visit. Lower total calories and start exercise acitvity as discussed. Retest BMP and microalbum in. Renal diso rder due to type 2 diabetes mellitus 491971617 E11.29 F/u with the nephrologi st as scheduled in September. BP is stable. Noncomplia nce with treatment 3680060 Z91.19 Discussed ion length . TOtal time of visit 35 minutes. Body mass index 30+ - obesity 549465679 Z68.31 [id number] Leigh Ann Quinteros PA-C Main Office [address] [facility] [address] [facility] [place] [address] 12/15/2016 14:22:23 12/15/2016 15:07:26 Uncontrolled type 2 diabetes mellitus 494005492 E11.65 Compliance with premeal insulin is poor. Overall diabetic control is worsening. Will continue TOujeo at 70 u daily. Add Victoza at 0.6 mg daily SC for 1 week,. then if tolerated go to 1.2 mg. F/u 4-6 weeks with log. Renal diso rder due to type 2 diabetes mellitus 740806043 E11.29 F/u with the nephrologi st as scheduled in September. BP is stable. Chronic ki dney disease stage 3 880300833 N18.3 f/u with the nephrologi st as scheduled. Noncomplia nce with treatment 9935247 Z91.19 Discussed ion length . TOtal time of visit 35 minutes. Body mass index 30+ - obesity 510965836 Z68.30 [id number] Raheem García MD Main Office [address] [facility] [address] [place] [address] 12/24/2016 12:01:17 12/26/2016 12:14:38 [id number] Leigh Ann Quinteros PA-C Main Office [address] [address] [place] [address] 01/05/2017 10:55:52 01/05/2017 12:12:38 Acute injury of kidney 1023671147 8635564 N17.9 F/u with nephrologi st as scheduled this afternoon. Labs to be done this afternoon. Renal diso rder due to type 2 diabetes mellitus 010691327 E11.29 Continue Toujeo at 75 u daily. Start HUmalog at 5 u TID premeal. Test glucose TID premeal. Continue low carb diet and return with log in 4 weeks. LOwer GLipizide ER to 5 mg daily to avoid hypoglycem ia. Chronic ki dney disease stage 3 298648914 N18.3 f/u with the nephrologi st as scheduled. [id number] Raheem García MD Main Office [address] [address] [place] [address] 01/15/2017 13:46:35 01/15/2017 14:51:16 Adult health examination 870352089 Z00.00 Varicella vaccination 68 540762 Z23 Screening for malignant neoplasm of colon 747536455 Z12.11 Displaceme nt of lumbar intervertebral disc without myelopathy 76740998 M51.26 Followed as needed by [facility] Proteinuria 35850217 R80 .9 Renal diso rder due to type 2 diabetes mellitus 988709629 E11.29 Continues close follow up to improve blood sugar control Chronic ki dney disease stage 3 544094717 N18.[address] Martínez for renal [id number] Leigh Ann Quinteros PA-C Main Office [address] [address] [place] [address] 02/16/2017 14:02:59 02/16/2017 14:44:01 Renal disorder due to type 2 diabetes mellitus 757943367 E11.29 Continue Toujeo at 74 u daily. Humalog at 5-10 u TID premeal. Test glucose TID premeal. Restart Metfromin ER 500 mg 2 po qd with supper. Lower total calories and increase exercise activity. F/u 6 weeks with repeat A1c. Chronic ki dney disease stage 3 381318117 N18.3 just was seen by nadeem bill . STable condition. Body mass index 30+ - obesity 511223956 Z68.31 [id number] Leigh Ann Quinteros PA-C Main Office [address] [facility] [address] [place] [address] 04/01/2017 13:38:26 04/01/2017 15:02:23 Renal disorder due to type 2 diabetes mellitus 928286352 E11.29 Improve consistenc y of pre-prandi al 10 U Humalog. Discussed that if you forget to inject humalog prior to meals, can inject at 5 U during or after eating which may help. Lower total calories, fat intake and increase exercise activity. Improve consistenc y with diet. F/u 6 weeks with repeat A1c. Increase Toujeo to 80 U. Needs infl uenza immunization 483880141 Z23 Body mass index 30+ - obesity 816720612 Z68.31 Improve diet - decrease fats, caloric intake and salt intake. Increase exercise. Proteinuria 92730564 R80 .9 Just seen by Nadeem bill. Stable condition. Chronic ki dney disease stage 3 589383219 N18.3 Just was seen by nadeem bill . Stable condition. [id number] Leigh Ann Quinteros PA-C Main Office [address] [address] 05/13/2017 13:39:04 05/13/2017 14:43:09 Renal disorder due to type 2 diabetes mellitus 602383231 E11.22 Current on meds, asymptomat ic. Glucose readings stable, A1c last checked in 04/01/17 at 10.0, will reassess prior to net visit in 6 wks renal disease stable. seen by nephrologbart bill Chronic ki dney disease stage 3 138959849 N18.3 stable. seen by nephbhavin bill Impacted cerumen 2150754 6 H61.23 cerumen obstructio n present bilaterall y, more prominent on L ear Hyperlipidemia 83013636 E78.1 Body mass index 30+ - obesity 320228230 E66.9 Z68.31 [id number] Leigh Ann Quinteros PA-C Main Office [address] [facility] [address] [place] [address] 07/10/2017 10:54:28 07/10/2017 12:02:12 Renal disorder due to type 2 diabetes mellitus 387339195 E11.22 STable CKD stg 3 diabetic and [...] daily. Chronic ki dney disease stage 3 693760140 N18.3 [facility]. [facility] Labs are done at nephrologi office. Administra tion of pneumococcal vaccine 06531100 Z23 Body mass index 30+ - obesity 430304818 E66.9 Z68.35 Z68.30 [id number] Leigh Ann Quinteros PA-C Main Office [address] [facility] [address] [place] [address] 12/08/2017 15:00:07 12/08/2017 15:45:19 Renal disorder due to type 2 diabetes mellitus 749342660 E11.22 STable CKD stg 3 diabetic and [...] weeks. Chronic ki dney disease stage 3 663315475 N18.3 stable. [facility] Labs are done at nephrologi office. Body mass index 25-29 - overweight 249877339 E66.3 Z68.28 [id number] Leigh Ann Quinteros PA-C Main Office [address] [facility] 207 [facility] [place] [address] 01/26/2018 09:26:49 01/26/2018 10:45:39 Renal disorder due to type 2 diabetes mellitus 491534885 E11.22 STable CKD stg 3 disease. [facility] having [...] days. Chronic ki dney disease stage 3 104530553 N18.3 stable. [facility] Labs are done at nephrologi office. [id number] Raheem García MD Main Office [address] [facility] [address] [place] [address] 03/05/2018 12:46:45 03/05/2018 13:48:52 Hepatitis C screening 570565800 Z11.59 Active or passive immunization 665268402 Z23 Adult heal th examination 032710913 Z00.00 Renal diso rder due to type 2 diabetes mellitus 886016664 E11.29 Continues close follow up to improve blood sugar control Screening for malignant neoplasm of colon 863994089 Z12.11 Administra tion of pneumococcal vaccine 54284516 Z23 Displaceme nt of lumbar intervertebral disc without myelopathy 05740597 M51.26 Followed as needed by [facility] Chronic ki dney disease stage 3 [address]55437888 N18.[address] Martínez for renal [id number] Leigh Ann Quinteros PA-C Main Office [address] [facility] 207 [facility] [place] [address] 04/16/2018 14:32:14 04/16/2018 15:26:03 Renal disorder due to type 2 diabetes mellitus 010538810 E11.22 Stable CKD stg 3 disease. REcom. [...] weeks with log. Needs infl uenza immunization 100148150 Z23 Chronic ki dney disease stage 3 608642236 N18.3 Body mass index 25-29 - overweight 681495323 E66.3 Z68.25 Z68.29 Noncomplia nce with therapeutic regimen 730169196 Z91.19 Diabetic on insulin 1707 74526 E11.9 Z79.4 [id number] Chelsey mendenhall MD Main Office [address] [facility] 207 [facility] [place] [address] 09/20/2018 14:29:18 09/20/2018 15:48:17 Renal disorder due to type 2 diabetes mellitus 970334108 E11.22 Pt. is noncomplia nt to medical [...] m. Chronic ki dney disease stage 3 827288104 N18.3 Noncomplia nce with therapeutic regimen 948659060 Z91.19 Diabetic on insulin 1707 35277 E11.9 Z79.4 [id number] Raheem García MD Main Office [address] [facility] 207 [facility] [place] [address] 04/15/2019 15:10:15 04/15/2019 16:44:44 Adult health examination 493575200 Z00.00 Influenza vaccine needed 0194004257 106 Z23 Administra tion of pneumococcal vaccine 75855417 Z23 Renal diso rder due to type 2 diabetes mellitus 192386810 E11.29 followed by [facility] in [place], [place]. HbA1c was 9.3% on 04/04/2019 . Screening for malignant neoplasm of colon 851337494 Z12.11 Screening for malignant neoplasm of prostate 189212076 Z12.5 [id number] Raheem García MD Main Office [address] [address] [place] [address] 06/04/2020 14:46:40 06/04/2020 16:05:14 Adult health examination 049663296 Z00.00 Influenza vaccine needed 3606518237 106 Z23 Renal diso rder due to type 2 diabetes mellitus 378089514 E11.22 Continue quarterly follow-up of serum creatinine , blood pressure, glycemic control. Followed by renal (Kranthi). Chronic ki dney disease stage 3 744036512 N18.30 Renal hypertension 58807 000 I12.9 Medication s reviewed. Will continue present medication s or changes as indicated. Follow home BP. Gout 61710518 M10.9 Diabetic on insulin 1707 79426 Z79.4 Poor short -term memory 031012371 R41.3 Failed cognitive screening. Declines workup. Feels he has not problems with memory. [id number] Raheem García MD [facility] [address] [address] [place] [address] 01/04/2021 09:10:39 01/04/2021 14:44:18 Iliopsoas bursitis of right hip 1888879939 056341 M70.71 [id number] Vivi De MD Main Office [address] [place] [address] 06/18/2021 13:02:00 06/18/2021 13:55:14 Chronic kidney disease stage [address] Martínez advised regular follow up. Renal diso rder due to type 2 diabetes mellitus 484840636 E11.22 N18.32 [facility] a1c 06/18/: 13.1tx per endo.Ons statin.Oph thalmology exam discussedF [...] ry consult provided Adult heal th examination 762505854 Z00.00 Patient was counseled on healthy diet, exercise and nutrition due to Body mass index is 30.4 kg/m . Last PSADate:Re sult:Plan: had shared [...] . Advance directives discussed. Influenza vaccine needed 8780878734 106 Z23 Fatigue 42382903 R53.83 Hyperlipidemia 44822638 E78.5 Hypomagnesemia 623800947 E83.42 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 76668544 D64.9 Advance di rective discussed with patient 444537730 Z71.89 [facility]/HCP provided and discussed. Gout 07869814 M10.9 Colitis 50786146 K52.9 Impacted c erumen of bilateral ears 7573723812 676472 H61.23 [id number] Vivi De MD Main Office [address] [facility] 207 [facility] [place], [place] [address] 10/02/2021 14:12:30 10/02/2021 14:47:26 Chronic kidney disease stage [address] Martínez advised regular follow up. Renal diso rder due to type 2 diabetes mellitus 470919265 E11.22 [facility] for diabetesLa a1c 06/18/21: 13.1tx per endo.On statin.Oph thalmology [...] with endoPodiat ry consult provided Skin lesion 56279889 L98 .9 Pearly lesion on left ear does not use spf.Possib le BCC, vs skin tag will make urgent referral derm. Hypertensi ve renal disease 44941755 I12.9 Low sodium diet discussedC ounseled on medication adherenceC ounseled on diet/exerc iseDoes not check bp at homeRed flags of HTN emergency discussed and when to go to ED. [id number] Vivi De MD Main Office [address] [facility] [address] [facility] [place] [address] 12/09/2021 12:51:48 12/09/2021 13:30:05 Acute hyperkalemia 7487165 E87.5 Has kayexalate for nephro, was supposed to use and admitted to not use it.Has note seen renal since last fall - advised follow upHe is asymptomat ic, will hold ecg for now.Sugar controlled discussed. Renal diso rder due to type 2 diabetes mellitus 054436947 E11.22 [facility]o for diabetesHb a1d donetx per [...] provided Chronic ki dney disease stage [address] Martínez advised regular follow up. Hypertensi ve renal disease 65615987 I12.9 Low sodium diet discussedC ounseled on medication adherenceC ounseled on diet/exerc iseDoes not check bp at homeRed flags of HTN emergency discussed and when to go to ED. Skin lesion 06553006 L98 .9 S/p resection follow derms. Adhesive c apsulitis of shoulder 953990901 M75.01 M75.02 Anemia of chronic disease 881803845 D63.8 Will continue to monitor cbc. 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 08820870 D64.9 Will continue to monitor in 3 mo visit. [id number] Chelsey mendenhall MD Main Office [address] [facility] 207 [facility] [place] [address] 03/05/2022 14:01:11 03/05/2022 15:22:09 Partial thickness burn of lower limb 36934723 T24.201A pt is a diabetic, will start antibiotic s to cover for infection. Use silvadene cream bid, mostly on any open areas, avoid maceration . Keep covered when out, can use light covering at home. Call if not improving or if worsening. Requires a tetanus booster 826583293 Z23 due for Td booster [id number] Vivi De MD Main Office [address] [facility] 207 [facility] [place] [address] 03/17/2022 14:29:22 03/17/2022 15:32:37 Renal disorder due to type 2 diabetes mellitus 969701634 E11.22 [facility]o for diabetesHb a1d done currently [...] one Chronic ki dney disease stage [address] Martínez advised regular follow up. Hypertensi ve renal disease 54928701 I12.9 Low sodium diet discussedC ounseled on medication adherence - [facility] order.Coun seled on diet/exerc iseDoes not check bp at homeRed flags of HTN emergency discussed and when to go to ED.Notes home BP wnl. Anemia of chronic disease 252753552 D63.8 Will continue to monitor cbc at annual. 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 32676023 D64.9 Will continue to monitor in 3 mo visit. Essential hypertension 16240859 I10 Edema of l ower extremity 125212756 R60.0 compressio n stocking advised [id number] Vivi De MD Main Office [address] [facility] [place] [address] 05/27/2022 13:44:10 05/27/2022 14:20:42 Pneumonitis 289062815 J18.9 Begin zithromax at 500 mg daily for 1 week. Pt. is advised to take Mucinex for cough. [id number] Vivi De MD Main Office [address] [facility] 207 [facility] [place] [address] 07/15/2022 14:17:14 07/15/2022 15:35:02 Renal disorder due to type 2 diabetes mellitus 481384162 E11.22 [facility]o for diabetesHb a1d orderedtx per [...] one Chronic ki dney disease stage [address] Martínez advised regular follow up. Hypertensi ve renal disease 99010102 I12.9 Low sodium diet discussedC ounseled on medication adherence - [facility] order.Coun seled on diet/exerc iseDoes not check bp at homeRed flags of HTN emergency discussed and when to go to ED.Notes home BP wnl. Anemia of chronic disease 599592013 D63.8 Will continue to monitor cbc at annual. Edema of l ower extremity 420291622 R60.0 compressio n stocking advised Adult heal th examination 238678467 Z00.00 Patient was counseled on healthy diet, [...] Medication reconciled . Advance directives discussed. Fatigue 87015966 R53.83 Hyperlipidemia 81176796 E78.5 Hypomagnesemia 718887456 E83.42 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 48332217 D64.9 Will continue to monitor in 3 mo visit. Advance di rective discussed with patient 726083011 Z71.89 [facility]/HCP provided and discussed. Gout 62312230 M10.9 Impacted c erumen of bilateral ears 6043197511 741196 H61.23 Administra tion of viral vaccine 28221065 Z23 Varicella vaccination 68 139380 Z23 [id number] Vivi De MD Main Office [address] [facility] 207 [facility] [place] [address] 04/10/2023 12:52:49 04/10/2023 13:49:56 Renal disorder due to type 2 diabetes mellitus 903817773 E11.22 Follows [facility] for diabetestx per endo. (humalog 15 units TID, tresiba 65 units), reminded to reach out to endo.Will stop Pioglitazo ne and have care per Endo perhaps he might be a good candidate for GLP1 vs SGLT 2.Tells me last a1c at [facility] was 6.8On statin.Oph thalmology exam has [...] in seeing one Hypertensi ve renal disease 17022475 I12.9 bp soft will hold amlodipine . Advised to check bp. Chronic ki dney disease stage [address]18[address] Martínez advised regular follow up. Edema of l ower extremity 148072433 R60.0 compressio n stocking advised Insomnia 797504689 G47.0 0 Pericardial effusion 373 470126 I31.39 Likely 2/2 to fluid overload, now on HD. Influenza vaccine needed 4350047605 106 Z23 Abrasion 384651974 T14.8 XXA Right 4th toe, no warmth or fluctuance , no drainage, area cleaned and bacitracin placed and bandage. Advised daily wound check. Call if no improvemen t. Also advised to follow podiatry. 194101 Vivi De MD Main Office [address] [facility] [address] [facility] [place], [place] [address] 08/17/2023 14:49:27 08/17/2023 16:07:35 Adult health examination 439330229 Z00.00 Patient was counseled on healthy diet, exercise and nutrition due to Body mass index is 31.6 kg/m . Last PSADate: 12/06/21Res ult: 1.5Plan: wants to stop screening. Last Colonoscop y:Date: 09/15/2019R esult: acute colitisPla n: tells me next due in 10 yrs, Vaccines:T d: 03/05/22Zos ter rec:script provided [id number] : 03/05/18PPS V23: 07/23/12, 04/15/19PCV 20: DiscussedI nfluenza: 04/10/23Cov id: 08/17/20, 09/14/20, 06/23/21, encourage updated vaccineRSV : Discussed Routine labs today Immunizati on status reviewed. Will screen based on risk factors. Regular dental and ophtho care advised as well as seat belt and sunscreen use. Distracted driving discussed. Medication reconciled . Advance directives discussed. Advance di rective discussed with patient 520301652 Z71.89 MOLST/HCP provided and discussed. Administra tion of pneumococcal vaccine 35071993 Z23 Administra tion of viral vaccine 39319326 Z29.11 Chronic ki dney disease stage [address] Martínez advised regular follow up. Renal diso rder due to type 2 diabetes mellitus 557629395 E11.22 tx per [facility], a1c/microa lbumin [...] glucose at home Diabetic on insulin 1707 54912 Z79.4 Fatigue 00306892 R53.83 Z00.00 Hyperlipidemia 55913256 E78.5 Z00.00 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 08963799 D64.9 Will continue to monitor in 3 mo visit. Varicella vaccination 68 277929 Z23 Gout 46534878 M10.9 Hyperkalemia 18318146 E8 7.5 Insomnia 172292308 G47.0 0 Noncomplia nce with therapeutic regimen 056219289 Z91.199 Venereal d isease screening 742716480 Z20.2 Z11.3 [id number] Vivi De MD Main Office [address] [place] [address] 11/24/2023 15:25:07 11/24/2023 16:18:16 Vitamin D deficiency 66177090 E55.9 on supplement ation Insomnia 220533323 G47.0 0 Reviewed the risk of benzo use. Will continue current regimen till he is evaluated by sleep medicine.C ontrol substance completed. Displaceme nt of lumbar intervertebral disc without myelopathy 80950662 M51.26 Follows pain management Chronic ki dney disease stage 4 876701038 N18.4 Cont. renal follow up. Hypertensi ve renal disease 93991642 I12.9 Stable on current regimen. Renal diso rder due to type 2 diabetes mellitus 454210089 E11.22 Follows [facility] end[facility]. History of calculus of kidney 836426869 Z87.[address] he had done by urology reveals he has cleared renal stone [id number] Vivi De MD Main Office [address] [place] [address] 12/15/2023 13:23:53 12/15/2023 13:53:43 Acute conjunctivitis 99324072 H10.33 Allergic conjunctivitis 550899973 H10.13 Allergic rhinitis 403890 04 J30.9 Trigger fi nger of left hand 3125109267 2250344 M65.312 583010 Chapito Paz MD Main Office [address] [place] [address] 02/24/2024 13:21:08 02/24/2024 14:18:03 Fatigue 17311256 R53.83 No clear etiology. Possible infectious although his only symptoms is fatigue. Does not appear to be mood related. 293374 Vivi De MD Main Office [address] [place] [address] 03/01/2024 13:49:15 03/01/2024 14:47:08 Fatigue 17602615 R53.83 Z00.00 Alkaline p hosphatase above reference range 461353262 R74.8 Hypertensi ve renal disease 74281085 I12.9 Chronic ki dney disease stage 4 308619416 N18.4 Cont. renal follow up. 364114 Vivi De MD Main Office [address] [address] 03/07/2024 10:48:01 03/07/2024 11:37:38 Hyperglycemia due to type 2 diabetes mellitus 3920198931 27668 E11.65 Insulin tr eated type 2 diabetes mellitus 481641952 Z79.4 Liver enzy mes level above reference range 052792439 R74.01 Vitamin D deficiency 347 87778 E55.9 on supplement ation, compliance discussed. Urinary tr act infectious disease 97573580 N39.0 -Has fatigue could be uti, will renally dose with levaquin every other day.-Advis ed to monitor glucose.-H ydration enforced. Hyperkalemia 46646105 E8 7.5 -ECG done 03/01/24 visit. Insomnia 470122484 G47.0 0 Reviewed the risk of benzo use. Will continue current regimen till, advised to follow up with sleep medicine for sleep study. Hypertensi ve renal disease 02690917 I12.9 Advised to increase amlodipine to 2 (2.5mg) he has a follow up with renal in 2 weeks. Advised to monitor to bp then. I will re-check with him in 1 week. Chronic ki dney disease stage 4 116588339 N18.4 Cont. renal follow up. 026664 Vivi De MD Main Office [address] [address] 04/11/2024 10:54:20 04/11/2024 12:28:00 Hyperglycemia due to type 2 diabetes mellitus 2204662785 01522 E11.65 Follows endo. Insulin tr eated type 2 diabetes mellitus 456191975 Z79.4 Liver enzy mes level above reference range 822868381 R74.01 Vitamin D deficiency 347 05917 E55.9 on supplement ation followed by renal. Insomnia 686097085 G47.0 0 -Reviewed the risk of benzo use. Will continue current regimen, Advised to follow up with sleep medicine for sleep study. Hypertensi ve renal disease 67880899 I12.9 Advised to increase amlodipine to 2 (2.5mg) he has a follow up with renal in 2 weeks. Advised to monitor to bp then. I will re-check with him in 1 week. Chronic ki dney disease stage 4 220261061 N18.4 Cont. renal follow up. Influenza vaccine needed 0739464542 106 Z23 65 YEARS AND OLDER Urinary tr act infectious disease 41280776 N39.0 Resolved after tx. [id number] Vivi De MD Main Office [address] [address] [place] [address] 05/17/2024 14:27:11 05/17/2024 15:24:40 Ulcer of foot 96958501 L97.919 He is a diabetic, will cover with abx (bactrim), Granulatio n tissue noted. Area marked 5.5x5.5 cm.CrCl > 30 , Calculated with January 2024 Cr, calculated to be 33.Advised to keep area clean and dry.Angel r protection with Vaseline.A void pedicure.R eferral to mold stamper and repairer provided.Vaibhav alfredo glycemic control encouraged Follow up 1 week. 310757 Vivi De MD Main Office [facility] [address] [address] [place] [address] 05/27/2024 15:08:01 05/27/2024 15:44:58 Ulcer of foot 99854908 L97.919 Area is healing well has granulatio n tissue.He did not see mold stamper and repairer . I will refer to wound clinic due to compliance issues and the fact that he is a diabetic,N o further abx needed at this time.Encou raged glycemic control.En couraged to keep the area covered and protected. 675834 Chapito Paz MD Main Office [facility] [address] [address] [place] [address] 08/03/2024 14:24:21 08/03/2024 15:28:21 Edema of lower extremity 930257609 R60.0 This is most likely related to his kidney disease. Will recheck kidney labs and will also check a proBNP. Heart failure is a possibilit y but will hold off on an ECHO. Doubt DVT since both LE's are involved. We discussed a reduced salt diet as well as elevation. 372315 Vivi De MD Main Office [facility] [address] [address] [address] [place] [address] 08/22/2024 15:00:03 08/22/2024 16:16:31 Adult health examination 463747027 Z00.00 Patient was counseled on healthy diet, exercise and nutrition due to Body mass index is 30.6 kg/m . Last PSADate: 03/01/24Resu lt: 2.9Plan: past age for screening Last Colonoscop y:Date: 09/15/2019R esult: acute colitisPla n: tells me next due in 10 yrs, Vaccines:T d: 03/05/22Zos ter rec: Script provided [id number] : 03/05/18PPS V23: 07/23/12, 04/15/19PCV 20: DiscussedI nfluenza: 04/11/24Cov id: encourage updated vaccineRSV : Discussed Routine labs today Immunizati on status reviewed. Will screen based on risk factors. Regular dental and ophtho care advised as well as seat belt and sunscreen use. Distracted driving discussed. Medication reconciled . Advance directives discussed. Advance di rective discussed with patient 583106899 Z71.89 MOLST/HCP provided and discussed. Renal diso rder due to type 2 diabetes mellitus 935922294 E11.22 tx per [facility], microalbum in ordered, will fax to endo along with CMP and lipids.Yea rly Ophthalmol ogy exam advisedFol cady Renal Dr. Rodolfo mishra profile ordered - On statin.Cou nselled about regular physical activityCo unselled on dietAdvise d regarding risks/sign s/symptoms of hypoglycem ia. Counseled to carry a snack in case of emergencie sAdvised to check fingerstic k glucose at home Diabetic on insulin 1707 17259 Z79.4 Hyperlipidemia 34098521 E78.5 Z00.00 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 10041639 D64.9 Will continue to monitor in 3 mo visit. Gout 32487262 M10.9 Hyperkalemia 84757717 E8 7.5 Fatigue 21977144 R53.83 Z00.00 Insomnia 329051449 G47.0 0 -Reviewed the risk of benzo use. Will continue current regimen, Advised to follow up with sleep medicine for sleep study. Varicella vaccination 68 519082 Z23 Chronic ki dney disease stage [address] Martínez advised regular follow up. Alkaline p hosphatase above reference range 456828561 R74.8 Vitamin D deficiency 347 39860 E55.9 on supplement ation followed by renal. Hypertensi ve renal disease 98362832 I12.9 Bp elevated increase amlodipine to 10mg. Follow up 1 mo. [id number] Jose Bell MD Main Office [address] [address] [place] [address] 11/02/2024 09:34:28 11/02/2024 10:57:07 Fever 997683237 R50.9 fever of unknown etiology - d/w Dr. De - check labs, urine, cxrwill rx c empiric abx - to help keep him out of the hospitalre commend probiotics while on abx Chronic ki dney disease stage 4 492544369 N18.4 cont lasix 40mg bid as per renal - next f/u c renal next wedmost likely has cardiorena l syndrome*w ill fwd copy of this ov note to renal* Renal diso rder due to type 2 diabetes mellitus 364124411 E11.22 cont meds, f/u c endo as dir Heart failure 04160308 I 50.9 as per renal note last week was hypervolem ic - began lasix 40mg bid - see [place] 24 lbs from renal ov last weekmost likely has HFpEF d/t results of echo 1.23.25 (see above)chec k labsrec avoid saltdoes not appear pt sees cardiologi st - will discuss c pt at f/u visit next week Dysuria 37973671 R30.0 247171 Vivi De MD Main Office [address] [address] [place] [address] 11/14/2024 08:24:29 11/14/2024 09:22:59 Venereal disease screening 785236317 Z11.3 5777928 Left flank pain 20143025 9 R10.9 628073 Fever 991512413 R50.9 022215 Pneumonia caused by respiratory syncytial virus 595133201 J12.1 539959 Chill 09841757 R68.83 51234 [id number] Vivi De MD Main Office [address] [address] [place] [address] 11/23/2024 13:55:19 11/23/2024 14:35:36 Backache 597234538 M54.89 0189274 Alkaline p hosphatase above reference range 871410792 R74.8 087072 History of hepatitis B 212480557 Z86.19 802620 lab suggest he has cleared the virus. discussed result with him. Cyst of kidney 508525309 N28.1 359145 Lesion of lung 579299708 J98.4 7296744 Chronic ki dney disease stage [address] Martínez advised regular follow up. 320452 Chapito Paz MD Main Office [address] [address] [place] [address] 01/23/2025 12:43:13 01/23/2025 13:13:01 Preoperative state 09256290 Z01.818 035432 No medical contraindi cations to proposed procedure. Zavaleta Perioperat erik Cardiac Risk was calculated and the risk for perioperat erik NM is <1%. May proceed to surgery as planned. Bilateral cataracts 9572 2003 H26.9 79997908 pre-operat erik medical clearance for cataract surgery with Dr. Maranda Yanez ( ), LT eye 02/07/24 Rt eye 02/20/25. Chronic ki dney disease stage [address] Martínez Hypertensi ve renal disease 39152473 I12.9 BP in office at goal-c/w current regimen Heart failure 78246643 I 50.9 [id number] Vivi De MD Main Office [address] [place] [address] [place] [address] 03/07/2025 13:58:56 03/07/2025 14:34:51 Pruritic dermatitis 8258446882 L30.8 564 [id number] Chapito Paz MD Main Office [address] [address] [place] [address] 03/29/2025 14:26:03 03/29/2025 14:44:56 Pruritic dermatitis 2078712248 L30.8 564 -significa nt improvemen ts since onset-rash is no longer visible, healing scabs from the constant itching-no longer itching-c/ w topical steroid cream and cetirizine -has an appt with dermatolog y within 1 week Health Concerns Section Related Observation LastModified by Organization Detai ls LastModified Time None Recorded Concern Status LastModified by Organization Details LastModified Time None Recorded Advance Directives Directive Y: Anne-Marie Edilson (sister) Payers Insurance Date Sequence Insurance Name Policy Number Policy Frederick Covered Member ID Frederick Member ID Guarantor Name 03/07/2025 1 [facility] (PPO) [id number] Ryan Waggoner [id number] Ryan Waggoner 03/07/2025 2 [employer] (MEDICARE SUPPLEMENT) Ryan Waggoner [id number] Ryan Waggoner 03/07/2025 1 [facility] - DIRECT CONNECTORCARE TYPE I (HMO) Ryan Waggoner [id number] Ryan Waggoner 03/07/2025 1 [facility] - DIRECT CONNECTORCARE TYPE II (HMO) Ryan Waggoner [id number] Ryan Waggoner 03/07/2025 2 [place] [facility] Ryan Waggoner [id number] Ryan Waggoner 03/07/2025 1 [facility] (MEDICAID REPLACEMENT - HMO) [id number] Ryan Waggoner [id number] Ryan Waggoner 03/07/2025 1 [facility] - CAREPLUS (MEDICAID HMO) Ryan Waggoner [id number] Ryan Waggoner 06/13/2025 1 [facility] (MEDICARE REPLACEMENT/AD VANTAGE - PPO) [id number] Ryan Waggoner [id number] Ryan Waggoner 03/07/2025 1 [place] [employer] Ryan Waggoner [id number] Ryan Waggoner 03/07/2025 1 [facility] MEDICAID ESSENTIAL (MEDICAID HMO) [id number] Ryan Waggoner [id number] 1 Ryan Waggoner Notes Date Note Type Note [...] is also under the care of a head lineman and reports feeling much better overall. Prior to his hospitalization, he experienced chills. His son questioned whether Lasix could have contributed to his symptoms. However, the patient currently denies any chills and continues to take Lasix as prescribed by his head lineman. They also inquired about refills for sodium bicarbonate and sodium polystyrene sulfonate, both prescribed by the head lineman; I advised them to contact that provider [...] the importance of close follow-up with his head lineman and advised that acetaminophen is the safest tqlp-nls-dgytpkz pain reliever for him, not exceeding 3 grams in 24 hours, with a suggested dose of (2) 500 mg every 6 hours as needed. He is overdue for follow-up with his urologist, and I encouraged him to call their office to schedule an appointment. As for his recovery from RSV and secondary pneumonia, he is currently afebrile and asymptomatic. Vivi De MD [address], [address], [facility] [place] 11/14/2024 10:39:22 11/23/2024 text/html Back PainReporte d by PatientHPIFor location, patient reportspain radiating to the buttocks. For quality, patient reportsdull. For aggravating factors, patient reportstwisting. For severity, patient reportsimproving. For duration, patient reportsintermittent. For onset/timing, patient reportsrecurrent episode(3 weeks). For context, patient reportsprior back problems. For associated symptoms, patient reportsno fever,no weak limbs,no numbness of the legs/feet,no tingling,no incontinence, andno shortness of breath.Patient presents for follow-up of left-sided flank pain, which initially radiated from the flank to the groin. Currently, the pain has shifted and is now radiating from the mid-thoracic region down to the gluteal area. He reports that the pain has improved with the use of warm compresses and topical IcyHot cream, both of which provide some relief. He also follows with [facility] for ongoing lower back issues. Vivi De MD [address] [facility] [address], [place], [address], [facility] 11/23/2024 19:18:58 01/23/2025 text/html ROS as noted in the HPI Ryan is a 69yr old M with PMHx of CKD stage [...] palpitations, fever, chills, and nausea/vomiting. KALE VINCENT [address] [facility] [address], [place], [address], [facility] 01/23/2025 13:21:00 03/07/2025 text/html Rash/Skin LesionReported by PatientHPIFor quality, patient reportsitchybut reportsstable. For location, patient reportsarms,abdomen,ba ck,legs, andthighs. For context, patient reportsno new detergents or skin products,no one else with similar rash, andnot scratching. For associated symptoms, patient reportsno fever,no cold symptoms,no nausea,no vomiting,no diarrhea,no urinary symptoms,no chills,no fatigue, andno change in weight(no new sexual partner.). 69-year-old male with CKD stage IV, type 2 diabetes mellitus, diastolic heart failure, secondary hyperparathyroidism, history of hepatitis B (Neg Hep B qn DNA, + Anti-HBS, Anit HBC, - HBsAG), hypertensive renal disease, and anemia of CKD who presents with a 2 3 week history of a pruritic rash involving his back, arms, abdomen and legs. He describes the rash as scaly and itchy. No vesicles, pustules, or discharge noted. No fever, chills, or systemic symptoms. No recent changes in soaps, detergents, lotions, or clothing. No sick contacts or recent travel. No one else in the household affected, no new sex partners. No new medications or recent dose adjustments reported. Vivi De MD [address], [address], [facility] 03/07/2025 14:55:07 03/29/2025 text/html ROS as noted in the HPI 69-year-old male with CKD stage IV, type 2 diabetes mellitus, diastolic heart failure, secondary hyperparathyroidism, history of hepatitis B (Neg Hep B qn DNA, + Anti-HBS, Anit HBC, - HBsAG), hypertensive renal disease, and anemia of CKD who presents for a f/u regarding a pruritic rash involving his back, arms, abdomen and legs. Was given steroid cream, cetirizine, and hydroxyzine which have all provided relief. Notes that since last week, the rash has improved significantly. No longer itchy or scaly. KALE VINCENT [address] [address], [place], [address], [facility] [place] 03/29/2025 15:07:39
--- OUTSIDE RECORDS SUMMARY | 2025-07-07 20:27 | XMS_ITS | Clinical Summary ---
Author Organization [facility] Address [address] [place] [address] Care Team Providers Care Marketing Intelligence Analyst Name Role Phone Unavailable Primary Care Provider [...] Documents on File Type Date Recorded Patient Cytotechnologist/Histotechnologist Expl anation Health Care Decision (hx) 02/27/2023 HE ALTH CARE PROXY Health Care Decision (hx) 02/27/2023 HE ALTH CARE PROXY Health Care Decision (hx) 02/27/2023 HE ALTH CARE PROXY
--- OUTSIDE RECORDS SUMMARY | 2025-07-07 20:27 | XMS_ITS | Clinical Summary ---
Author Organization [facility] Address [address] [place] [address] Care Team Providers Care Business Professor Name Role Phone Unavailable Primary Care [...] Years Used Date Smoking Tobacco: Never Assessed [facility] Utilities Answer Date Recorded In [...] any time in the past 12 m [facility], were you homeless or living in [...] patient's age to complete this topic Insurance [facility] MEDICARE Advance Directives * Full Code (Latest Code Status on File) Date Activated Date Inactivated Comments 10/18/2024 11:07 AM
--- OUTSIDE RECORDS SUMMARY | 2025-07-07 20:28 | XMS_ITS | Encounter Summary ---
Author Organization [facility] Address [address] [facility] [address] [place] [address] Phone Care Team Providers Care Wafer Batter Mixer Name Role Phone Raheem García MD Primary Care Provider [phone] Encounter Details Date Type Department Care Team (Late st Contact Info) Description 06/01/2017 Procedure Pass [facility]oscopy Admitting Dept Virtual Department [address] [place] [address] Social History Tobacco Use Types Packs/Day Years [...] on filedocumented in this encounter Care Teams Wafer Batter Mixer Relationship Specialty Start Date End Date Raheem García MD [address] [facility] [address] [place] [address] PCP - General Internal Medicine 08/18/19 documented as of this encounter Additional Source Comments The information contained in this document represents components of the legal health record. It is not the complete legal health record.[facility]
== END 2025-07-07 16:23 | disposition home or self-care (01) ==
LOC: HO.HKA 15:44
PROVIDERS: PCP Family Medicine; Visit Provider Internal Medicine Nephrology
DX: I12.0 Hypertensive chronic kidney disease with stage 5 chronic kidney disease or end stage renal disease (principal); N25.81 Secondary hyperparathyroidism of renal origin; E11.22 Type 2 diabetes mellitus with diabetic chronic kidney disease; N18.5 Chronic kidney disease, stage 5; E11.21 Type 2 diabetes mellitus with diabetic nephropathy; E87.5 Hyperkalemia; E87.20 Acidosis, unspecified
CPT/HCPCS: 99214

== ENCOUNTER → 2025-07-07 15:43 | Outpatient (BNVA) | payer MEDICARE, SELFPAY | PROVIDERS: PCP Family Medicine; Visit Provider Internal Medicine Nephrology | DX: I12.9 Hypertensive chronic kidney disease with stage 1 through stage 4 chronic kidney disease, or unspecified chronic kidney disease (principal); E11.22 Type 2 diabetes mellitus with diabetic chronic kidney disease; N18.5 Chronic kidney disease, stage 5; D63.1 Anemia in chronic kidney disease; E11.21 Type 2 diabetes mellitus with diabetic nephropathy; N25.81 Secondary hyperparathyroidism of renal origin; E87.5 Hyperkalemia; E87.20 Acidosis, unspecified | CPT/HCPCS: 96372; 99212; Q5106 ==